=== PATIENT | female | born 1940 | race Caucasian/White ===

== ENCOUNTER → 2018-05-01 12:11 | Outpatient (CLI) | payer MEDICARE, SELFPAY ==
[2017-07-23 10:33] VITALS: BMI 34.8
[2018-05-01 12:16] LABS: Bacteria 0 SEEN /hpf (None Seen); Mucous, Urine 0 SEEN /hpf (<or=2+); Red Blood Cells-Urine 0 SEEN /hpf (0-5); Squamous Epithelial Cells - UA 0 SEEN /hpf (5-10)
[2018-05-01 14:20] LABS: Absolute Lymphocyte Count 1.64 X10^3/ul (0.83-4.51); Absolute Neutrophil Count 4.3 X10^3/uL (2.0-7.7); Eosinophil# 0.01 X10^3/uL; Eosinophils% 0.2 % (0-5); Hematocrit 39.7 % (37-47); Hemoglobin 12.6 g/dl (12.0-15.0); Lymphocyte # 1.64 X10^3/ul (4.0); Lymphocyte % 25.2 % (19-41); Mean Corp Hgb Conc 31.7 g/gl (32-36); Mean Corpuscular Hgb 28.4 pg (27.0-32.0); Mean Corpuscular Volume 89.4 fL (81-99); Mean Platelet Vol. 9.5 fl (6.2-12.0); Monocyte% 9.2 % (0-10); Neutrophil # 4.25 X10^3/uL (2.7-7.7); Neutrophil % 65.2 % (47-70); Platelet Count 322 K/mm3 (150-450); RBC Distribution Width CV 13.6 % (11.6-14.6); RBC Distribution Width SD 44.6 fl (35.1-43.9); Red Blood Count 4.44 M/mm3 (4.2-5.4); White Blood Count 6.5 K/mm3 (4.4-11.0)
[2018-05-01 14:26] LABS: POSITIVE COUNT NO; POSITIVE DIFFERENTIAL NO; POSITIVE MORPHOLOGY NO
[2018-05-01 14:29] LABS: Color, Urine Yellow (Yellow); Glucose, Dipstick Normal (Normal); Ketone-Dipstick Negative (Negative); Leukocyte Esterase-Dipstick 25 /ul (Negative); Nitrite-Dipstick Negative (Negative); Occult Blood-Urine Negative /ul (Negative); Protein-Dipstick Negative (Negative); Urine Bilirubin Dipstick Negative (Negative); Urine Clarity Clear (Clear); Urine Urobilinogen Normal (Normal); Urine pH 6.5 (5.0 - 8.0)
[2018-05-01 14:33] LABS: White Blood Cells 0-5 SEEN /hpf (0-5)
[2018-05-01 14:41] LABS: Vitamin D,25 Hydroxy 25.8 ng/mL (29.95-100.01)
[2018-05-01 14:42] LABS: Amphetamine Urine VISTA NEGATIVE (<1000 ng/mL); Barbiturate Urine VISTA NEGATIVE (< 200 ng/mL); Benzodiazepine Urine VISTA NEGATIVE (< 200 ng/mL); Cocaine Urine VISTA NEGATIVE (< 300 ng/mL); Ecstacy Urine VISTA NEGATIVE (< 500 ng/mL); Methadone Urine VISTA NEGATIVE (< 300 ng/mL); PCP Urine VISTA NEGATIVE (< 25 ng/mL); THC Urine VISTA NEGATIVE (< 50 ng/mL); Vista UDS pH Range 6
[2018-05-01 14:48] LABS: Hemoglobin A1c 7.6 % (4.2-6.3)
[2018-05-01 14:50] LABS: Microalbumin,Random Urine 5.6 mg/L (NO RANGE EST.); Microalbumin:Creatinine Ratio 28.8 mg/g CRE (<30 mg/g CRE)
[2018-05-01 14:58] LABS: ALB/GLOB Ratio 1.1 RATIO (0.9-2.4); AST(SGOT) 82 U/L (15-37); Alanine Aminotransfer ALT/SGPT 37 U/L (13-56); Albumin, Serum 4.1 g/dL (3.2-5.0); Alkaline Phosphatase 77 U/L (45-117); Anion Gap 10 (5-15); BUN 19 mg/dL (7-18); BUN/Creat Ratio 18.3 RATIO (10-20); Calcium,Total 9.6 mg/dL (8.5-10.1); Chloride 99 mmol/L (98-107); Cholesterol 171 mg/dL (200); Creatinine, Serum 1.04 mg/dL (0.55-1.02); EST Glomerular Filtration Rate 55 mL/min (>60); Est Glom Filt Rate - Afr Amer 66 mL/min (>60); Globulin 3.8 g/dL (2.2-4.2); Glucose 61 mg/dL (74-106); High Density Lipoprotein 35 mg/dL; Protein, Total 7.9 g/dL (6.4-8.2); Sodium Level 139 mmol/L (136-145); Thyroid Stim Hormone (TSH) 2.26 uIU/mL (0.358-3.74); Triglycerides 308 mg/dL; Very Low Density Lipoprotein 62 mg/dL (5-40)
== END ==
PROVIDERS: Family Provider Family Medicine; PCP Family Medicine; Referring Provider Family Medicine; Visit Provider Family Medicine
DX: I10 Essential (primary) hypertension (principal); E11.9 Type 2 diabetes mellitus without complications; E78.5 Hyperlipidemia, unspecified; F41.9 Anxiety disorder, unspecified; E55.9 Vitamin D deficiency, unspecified
CPT/HCPCS: 36415; 80053; 80061; 80307; 81001; 82043; 82306; 82570; 83036; 84443; 85025

== ENCOUNTER → 2018-05-26 11:28 | Outpatient (CLI) | payer MEDICARE, SELFPAY ==
[2017-07-23 10:33] VITALS: BMI 34.8
[2018-05-26 14:14] LABS: ALB/GLOB Ratio 0.9 RATIO (0.9-2.4); AST(SGOT) 51 U/L (15-37); Alanine Aminotransfer ALT/SGPT 34 U/L (13-56); Albumin, Serum 3.6 g/dL (3.2-5.0); Alkaline Phosphatase 67 U/L (45-117); Anion Gap 9 (5-15); BUN 19 mg/dL (7-18); BUN/Creat Ratio 18.3 RATIO (10-20); Calcium,Total 9.2 mg/dL (8.5-10.1); Chloride 99 mmol/L (98-107); Creatinine, Serum 1.04 mg/dL (0.55-1.02); EST Glomerular Filtration Rate 55 mL/min (>60); Est Glom Filt Rate - Afr Amer 66 mL/min (>60); Globulin 3.9 g/dL (2.2-4.2); Glucose 151 mg/dL (74-106); Protein, Total 7.5 g/dL (6.4-8.2); Sodium Level 137 mmol/L (136-145)
[2018-05-27 09:47] LABS: HEPATITIS B SURFACE AG Negative (Negative); Hep B Surface Antibodies Non Reactive (.); Hep C Antibodies <0.1 s/co ratio (0.0-0.9)
== END ==
PROVIDERS: Family Provider Family Medicine; PCP Family Medicine; Visit Provider Family Medicine
DX: R94.5 Abnormal results of liver function studies (principal)
CPT/HCPCS: 36415; 80053; 86706; 86803; 87340

== ENCOUNTER → 2018-07-18 21:23 | Outpatient (CLI) | payer MEDICARE, SELFPAY | PROVIDERS: Family Provider Family Medicine; PCP Family Medicine; Referring Provider Internal Medicine Critical Care Medicine; Visit Provider Internal Medicine Critical Care Medicine | DX: G47.33 Obstructive sleep apnea (adult) (pediatric) (principal) | CPT/HCPCS: 95811 ==

== ENCOUNTER → 2018-08-19 10:00 | Outpatient (CLI) | payer MEDICARE, SELFPAY ==
[2018-07-24 09:04] VITALS: BMI 34.0
== END ==
PROVIDERS: Family Provider Family Medicine; PCP Family Medicine; Referring Provider Nurse Practitioner Acute Care; Visit Provider Nurse Practitioner Acute Care
DX: G47.33 Obstructive sleep apnea (adult) (pediatric) (principal)

== ENCOUNTER → 2018-09-01 11:23 | Outpatient (CLI) | payer MEDICARE, SELFPAY ==
[2018-09-01 10:14] VITALS: BMI 32.4
[2018-09-01 15:33] LABS: Absolute Lymphocyte Count 1.55 X10^3/ul (0.83-4.51); Absolute Neutrophil Count 3.7 X10^3/uL (2.0-7.7); Basophil# 0.01 X10^3/uL; Basophil% 0.2 % (0-1); Hemoglobin 11.3 g/dl (12.0-15.0); Lymphocyte # 1.55 X10^3/ul (4.0); Lymphocyte % 27.2 % (19-41); Mean Corp Hgb Conc 31.4 g/gl (32-36); Mean Corpuscular Volume 86.1 fL (81-99); Mean Platelet Vol. 9.2 fl (6.2-12.0); Monocyte# 0.41 X10^3/uL; Monocyte% 7.2 % (0-10); Neutrophil # 3.71 X10^3/uL (2.7-7.7); Neutrophil % 65.2 % (47-70); Platelet Count 252 K/mm3 (150-450); RBC Distribution Width CV 13.7 % (11.6-14.6); RBC Distribution Width SD 42.9 fl (35.1-43.9); Red Blood Count 4.18 M/mm3 (4.2-5.4); White Blood Count 5.7 K/mm3 (4.4-11.0)
[2018-09-01 15:43] LABS: ALB/GLOB Ratio 1.2 RATIO (0.9-2.4); AST(SGOT) 57 U/L (15-37); Alanine Aminotransfer ALT/SGPT 26 U/L (13-56); Albumin, Serum 3.9 g/dL (3.2-5.0); Alkaline Phosphatase 49 U/L (45-117); Anion Gap 10 (5-15); BUN 17 mg/dL (7-18); Calcium,Total 9.1 mg/dL (8.5-10.1); Chloride 101 mmol/L (98-107); Cholesterol 150 mg/dL (200); Creatinine, Serum 1.06 mg/dL (0.55-1.02); EST Glomerular Filtration Rate 53 mL/min (>60); Est Glom Filt Rate - Afr Amer 65 mL/min (>60); Globulin 3.3 g/dL (2.2-4.2); Glucose 97 mg/dL (74-106); High Density Lipoprotein 36 mg/dL; Potassium 4.1 mmol/L (3.5-5.1); Protein, Total 7.2 g/dL (6.4-8.2); Sodium Level 139 mmol/L (136-145); Triglycerides 280 mg/dL; Very Low Density Lipoprotein 56 mg/dL (5-40)
[2018-09-01 15:49] LABS: POSITIVE COUNT NO; POSITIVE DIFFERENTIAL NO; POSITIVE MORPHOLOGY NO
[2018-09-01 15:50] LABS: Hemoglobin A1c 7.5 % (4.2-6.3)
[2018-09-01 17:05] LABS: Vitamin D,25 Hydroxy 35.6 ng/mL (29.95-100.01)
== END ==
PROVIDERS: Family Provider Family Medicine; PCP Family Medicine; Referring Provider Family Medicine; Visit Provider Family Medicine
DX: D64.9 Anemia, unspecified (principal); I10 Essential (primary) hypertension; E11.9 Type 2 diabetes mellitus without complications; E78.5 Hyperlipidemia, unspecified; E55.9 Vitamin D deficiency, unspecified
CPT/HCPCS: 36415; 80053; 80061; 82306; 83036; 85025

== ENCOUNTER → 2018-09-11 09:59 | Outpatient (CLI) | payer MEDICARE, SELFPAY ==
[2018-09-01 10:14] VITALS: BMI 32.4
[2018-09-11 12:40] LABS: Vitamin B12 201 pg/mL (211-911)
[2018-09-11 13:09] LABS: Ferritin 18 ng/mL (8-252); Iron 71 ug/dL (50-170); Iron Binding Capacity,Total 521 ug/dL (250-450)
== END ==
PROVIDERS: Family Provider Family Medicine; PCP Family Medicine; Referring Provider Family Medicine; Visit Provider Family Medicine
DX: D64.9 Anemia, unspecified (principal)
CPT/HCPCS: 36415; 82607; 82728; 82746; 83540; 83550

== ENCOUNTER → 2018-10-08 09:39 | Outpatient (CLI) | payer MEDICARE, SELFPAY ==
[2018-09-01 10:14] VITALS: BMI 32.4
[2018-10-08 12:23] LABS: Absolute Lymphocyte Count 1.01 X10^3/uL (0.83-4.51); Absolute Neutrophil Count 2.9 X10^3/uL (2.0-7.7); Basophil# 0.01 X10^3/uL; Basophil% 0.2 % (0-1); Eosinophil# 0.01 X10^3/uL; Eosinophils% 0.2 % (0-5); Hemoglobin 10.4 g/dL (12.0-15.0); Lymphocyte # 1.01 X10^3/ul (4.0); Lymphocyte % 23.4 % (19-41); Mean Corp Hgb Conc 30.6 g/dL (32-36); Mean Corpuscular Hgb 26.8 pg (27.0-32.0); Mean Corpuscular Volume 87.6 fL (81-99); Mean Platelet Vol. 9.7 fl (6.2-12.0); Monocyte# 0.39 X10^3/uL; NRBC Flagged by Analyzer 0 % (0-5); Neutrophil # 2.87 X10^3/uL (2.7-7.7); Neutrophil % 66.7 % (47-70); Platelet Count 239 K/mm3 (150-450); RBC Distribution Width SD 44.9 fl (35.1-43.9); Red Blood Count 3.88 M/mm3 (4.2-5.4); White Blood Count 4.3 K/mm3 (4.4-11.0)
[2018-10-08 12:58] LABS: Vitamin B12 220 pg/mL (211-911)
== END ==
PROVIDERS: Family Provider Family Medicine; PCP Family Medicine; Referring Provider Family Medicine; Visit Provider Family Medicine
DX: D64.9 Anemia, unspecified (principal); E53.8 Deficiency of other specified B group vitamins
CPT/HCPCS: 36415; 82607; 85025

== ENCOUNTER → 2018-11-27 08:17 | Outpatient (CLI) | payer MEDICARE, SELFPAY ==
[2018-11-27 07:44] VITALS: BMI 32.4
[2018-11-27 10:25] LABS: Absolute Lymphocyte Count 0.94 X10^3/uL (0.83-4.51); Hematocrit 32.5 % (37-47); Hemoglobin 9.9 g/dL (12.0-15.0); Lymphocyte # 0.94 X10^3/ul (4.0); Mean Corp Hgb Conc 30.5 g/dL (32-36); Mean Corpuscular Hgb 26.8 pg (27.0-32.0); Mean Corpuscular Volume 87.8 fL (81-99); Mean Platelet Vol. 9.7 fl (6.2-12.0); Monocyte# 0.53 X10^3/uL; Monocyte% 11.8 % (0-10); NRBC Flagged by Analyzer 0 % (0-5); POSITIVE MORPHOLOGY YES; Platelet Count 177 K/mm3 (150-450); RBC Distribution Width CV 13.6 % (11.6-14.6); RBC Distribution Width SD 43.6 fl (35.1-43.9); White Blood Count 4.5 K/mm3 (4.4-11.0)
[2018-11-27 10:47] LABS: ALB/GLOB Ratio 0.9 RATIO (0.9-2.4); AST(SGOT) 38 U/L (15-37); Alanine Aminotransfer ALT/SGPT 20 U/L (13-56); Albumin, Serum 3.3 g/dL (3.2-5.0); Alkaline Phosphatase 59 U/L (45-117); Anion Gap 8 (5-15); BUN 19 mg/dL (7-18); BUN/Creat Ratio 18.1 RATIO (10-20); Calcium,Total 8.9 mg/dL (8.5-10.1); Chloride 102 mmol/L (98-107); Cholesterol 122 mg/dL (200); Creatinine, Serum 1.05 mg/dL (0.55-1.02); EST Glomerular Filtration Rate 54 mL/min (>60); Est Glom Filt Rate - Afr Amer 65 mL/min (>60); Globulin 3.8 g/dL (2.2-4.2); Glucose 226 mg/dL (74-106); High Density Lipoprotein 28 mg/dL; Potassium 3.8 mmol/L (3.5-5.1); Protein, Total 7.1 g/dL (6.4-8.2); Sodium Level 140 mmol/L (136-145); Triglycerides 195 mg/dL; Very Low Density Lipoprotein 39 mg/dL (5-40)
[2018-11-27 10:50] LABS: Hemoglobin A1c 6.8 % (4.2-6.3)
[2018-11-27 11:01] LABS: Differential Indicated SCAN CRITERIA MET
[2018-11-27 11:02] LABS: PTHIN 15.6 pg/mL (18.4-80.1)
[2018-11-27 11:04] LABS: Vitamin B12 381 pg/mL (211-911); Vitamin D,25 Hydroxy 34.6 ng/mL (29.95-100.01)
== END ==
PROVIDERS: Family Provider Family Medicine; PCP Family Medicine; Referring Provider Family Medicine; Visit Provider Family Medicine
DX: I12.9 Hypertensive chronic kidney disease with stage 1 through stage 4 chronic kidney disease, or unspecified chronic kidney disease (principal); N18.3 Chronic kidney disease, stage 3 (moderate); E11.22 Type 2 diabetes mellitus with diabetic chronic kidney disease; D63.1 Anemia in chronic kidney disease; E78.5 Hyperlipidemia, unspecified; E53.8 Deficiency of other specified B group vitamins; E55.9 Vitamin D deficiency, unspecified
CPT/HCPCS: 36415; 80053; 80061; 82306; 82607; 83036; 83970; 85025

== ENCOUNTER 2019-01-05 08:00 | Outpatient (RCR) | payer MEDICARE, SELFPAY ==
[2018-11-27 07:44] VITALS: BMI 32.4
--- NOTE | 2018-12-22 10:51 | HP.PTEVAL_ITS ---
Patient's Visit Information TAMICA REBOLLEDO is a 78 year old F referred to Physical Therapy by Michele Lang MD with a diagnosis of BPPV. Date of Evaluation: 12/22/18 Physical Therapist: Vivek Mariscal, DPT, OCS, CSCS - Visit Plan Frequency: 1-2x /Week Duration: 2-4 Weeks Plan: weekly x 2-4 for positional treatments and balance progression as needed. - Subjective Findings: End of October she got a cold and coughed real hard. Her back hurt from that. Shoulders tightened up. Also when she sits up in bed she would start spinning and stagger. Needs to take cane now some days and she did not need that prior to this. Had previous falls from bending forward that the neighbor would help him up but not lately. Looking up in the grocery store can make her dizzy and thsi is for seconds. Got 6 stitches from a fall in the spring pulling weeds. Sleeping Ok. Not employed. Spends day often with grandchildren at sports and band. Can still do these. Just has to be careful when stadning or changing positions. Was dizzy this morning upon arising. Basic aDLs are OK, and son live with her. No regular exercises. Gets tired easily. - Objective Walks slow but I without AD, hesitant to move head. trasnfers I with UE. Steps are reciprocal with one rail. c/s AROM WFL adn without pain today. UE aROM WFL. Tender in R UT to mild touch. + R hallpike magdalene and up torsional nystagmus x 8 seconds. Treated with Joshua then - Hallpike test R. - Balance Scores Functional Gait Assessment Score: 23 % Disability: 23.3400 CATSIB Score (Max score 120 seconds): 100 - Goals Goal 1:: abolish dizzyness at grocery store adn exiting chair Goal Time Frame: 2-4 Weeks Goal 2:: Pt feel 100% back to normal and wanting to go to [facility]. Goal Time Frame: 2-4 Weeks Goal 3:: abolish dizzyness Goal Time Frame: 2-4 Weeks Goal 4:: DHI <25% disability Goal Time Frame: 2-4 Weeks - Rehabilitation Potential Physical Therapy Diagnosis: BPPV R post canal Rehabilitation Potential: Fair - Anticipated Interventions Patient/Client Instruction: Educate patient on: Condition, Plan of Care For the Purpose of:: To increase tolerance to activity/condition/position Therapeutic Exercise to Include: Balance training Comment: positional ex/treat For the Purpose of:: To increase tolerance to activity/condition/position, To improve balance Thank you for the opportunity to evaluate your patient. For Medicare and Medicare HMO plans, please review the plan of care and approve it. It will need to be FAXED BACK to us at [phone] for Medicare purposes. For Medicare only, by signing this I certify the plan of care. Please let me know if there are questions or concerns regarding this plan of care. Physician Signature: Date:
--- NOTE | 2019-01-08 11:46 | HP.PT.NRP ---
HP - Discharge Summary (1) - Patient Information TAMICA REBOLLEDO was seen in my office for initial evaluation on 12/22/18. The following Plan of Care was established for this patient: Initial Frequency: 1-2x /Week Initial Duration: 2-4 Weeks - Anticipated Interventions Patient/Client Instruction: Educate patient on: Condition, Plan of Care For the Purpose of:: To increase tolerance to activity/condition/position Therapeutic Exercise to Include: Balance training For the Purpose of:: To increase tolerance to activity/condition/position, To improve balance This patient was last seen in our office 01/05/19. Pertinent comments regarding their Physical therapy will appear below: Pt seen 3 visits for vertigo adn was to f/u again. She was 90% better at last session. She has called to cancel any further visits stating she is feeling good. i will discontinue at her request. At this point I will be discontinuing this patient from physical therapy. I would be happy to see this patient again in the future if found appropriate by the physician. Thank you! Vivek Mariscal, DPT, OCS, CSCS
== END 2019-01-05 19:00 | disposition home or self-care (01) ==
LOC: PT 08:00
PROVIDERS: Family Provider Family Medicine; PCP Family Medicine; Visit Provider Family Medicine
DX: H81.10 Benign paroxysmal vertigo, unspecified ear (principal)
CPT/HCPCS: 97161; 97530

== ENCOUNTER → 2019-01-29 10:12 | Outpatient (CLI) | payer MEDICARE, SELFPAY ==
[2018-11-27 07:44] VITALS: BMI 32.4
[2019-01-29 10:15] LABS: Mucous, Urine 0 SEEN /hpf (<or=2+); Red Blood Cells-Urine 0 SEEN /hpf (0-5)
[2019-01-29 12:32] LABS: Absolute Lymphocyte Count 1.24 X10^3/uL (0.83-4.51); Absolute Neutrophil Count 3.3 X10^3/uL (2.0-7.7); Basophil# 0.01 X10^3/uL; Basophil% 0.2 % (0-1); Eosinophil# 0.01 X10^3/uL; Eosinophils% 0.2 % (0-5); Hemoglobin 10.2 g/dL (12.0-15.0); Lymphocyte # 1.24 X10^3/ul (4.0); Lymphocyte % 24.6 % (19-41); Mean Corpuscular Hgb 26.5 pg (27.0-32.0); Mean Corpuscular Volume 88.3 fL (81-99); Mean Platelet Vol. 9.5 fl (6.2-12.0); Monocyte% 9.9 % (0-10); NRBC Flagged by Analyzer 0 % (0-5); Neutrophil # 3.27 X10^3/uL (2.7-7.7); Neutrophil % 64.7 % (47-70); Platelet Count 220 K/mm3 (150-450); RBC Distribution Width CV 14.3 % (11.6-14.6); RBC Distribution Width SD 45.5 fl (35.1-43.9); Red Blood Count 3.85 M/mm3 (4.2-5.4); White Blood Count 5.1 K/mm3 (4.4-11.0)
[2019-01-29 12:33] LABS: Vitamin D,25 Hydroxy 30.2 ng/mL (29.95-100.01)
[2019-01-29 12:37] LABS: ALB/GLOB Ratio 1.1 RATIO (0.9-2.4); AST(SGOT) 33 U/L (15-37); Alanine Aminotransfer ALT/SGPT 15 U/L (13-56); Albumin, Serum 3.7 g/dL (3.2-5.0); Alkaline Phosphatase 50 U/L (45-117); Anion Gap 6 (5-15); BUN 25 mg/dL (7-18); Calcium,Total 9.2 mg/dL (8.5-10.1); Chloride 103 mmol/L (98-107); Cholesterol 144 mg/dL (200); Creatinine, Serum 1.04 mg/dL (0.55-1.02); EST Glomerular Filtration Rate 55 mL/min (>60); Est Glom Filt Rate - Afr Amer 66 mL/min (>60); Globulin 3.5 g/dL (2.2-4.2); Glucose 88 mg/dL (74-106); High Density Lipoprotein 36 mg/dL; Potassium 4.2 mmol/L (3.5-5.1); Protein, Total 7.2 g/dL (6.4-8.2); Sodium Level 139 mmol/L (136-145); Triglycerides 252 mg/dL; Very Low Density Lipoprotein 50 mg/dL (5-40)
[2019-01-29 12:38] LABS: PTHIN 23.4 pg/mL (18.4-80.1)
[2019-01-29 12:44] LABS: Color, Urine Yellow (Yellow); Glucose, Dipstick Normal (Normal); Ketone-Dipstick Negative (Negative); Leukocyte Esterase-Dipstick 100 /ul (Negative); Nitrite-Dipstick Negative (Negative); Occult Blood-Urine Negative /ul (Negative); Protein-Dipstick Negative (Negative); Specific Gravity, Urine 1.015 (1.002-1.030); Urine Bilirubin Dipstick Negative (Negative); Urine Clarity Clear (Clear); Urine Urobilinogen Normal (Normal)
[2019-01-29 12:46] LABS: Protein, Urine (Random) 19.5 mg/dL (<11.9); Protein:Creat Ratio 214 mg/g CRE (0-200)
[2019-01-29 13:12] LABS: Bacteria RARE /hpf (None Seen); Squamous Epithelial Cells - UA 0-5 SEEN /hpf (5-10); White Blood Cells 0-5 SEEN /hpf (0-5)
== END ==
PROVIDERS: Family Provider Family Medicine; PCP Family Medicine; Referring Provider Family Medicine; Visit Provider Family Medicine
DX: E55.9 Vitamin D deficiency, unspecified (principal); E78.5 Hyperlipidemia, unspecified; I12.9 Hypertensive chronic kidney disease with stage 1 through stage 4 chronic kidney disease, or unspecified chronic kidney disease; N18.3 Chronic kidney disease, stage 3 (moderate); D63.1 Anemia in chronic kidney disease
CPT/HCPCS: 36415; 80053; 80061; 81001; 82306; 82570; 83970; 84156; 85025

== ENCOUNTER → 2019-04-16 15:11 | Outpatient (CLI) | payer MEDICARE, SELFPAY ==
[2019-02-25 08:57] VITALS: BMI 36.3
[2019-04-16 15:21] LABS: Mucous, Urine 0 SEEN /hpf (<or=2+); Red Blood Cells-Urine 0 SEEN /hpf (0-5); Squamous Epithelial Cells - UA 0 SEEN /hpf (5-10)
[2019-04-16 17:44] LABS: Absolute Lymphocyte Count 2.02 X10^3/uL (0.83-4.51); Absolute Neutrophil Count 3.1 X10^3/uL (2.0-7.7); Basophil# 0.01 X10^3/uL; Basophil% 0.2 % (0-1); Hematocrit 33.7 % (37-47); Hemoglobin 9.9 g/dL (12.0-15.0); Lymphocyte # 2.02 X10^3/ul (4.0); Lymphocyte % 35.3 % (19-41); Mean Corp Hgb Conc 29.4 g/dL (32-36); Mean Corpuscular Hgb 25.1 pg (27.0-32.0); Mean Corpuscular Volume 85.3 fL (81-99); Mean Platelet Vol. 10.1 fl (6.2-12.0); Monocyte# 0.56 X10^3/uL; Monocyte% 9.8 % (0-10); NRBC Flagged by Analyzer 0 % (0-5); Neutrophil # 3.12 X10^3/uL (2.7-7.7); Neutrophil % 54.5 % (47-70); Platelet Count 228 K/mm3 (150-450); RBC Distribution Width CV 14.4 % (11.6-14.6); RBC Distribution Width SD 43.9 fl (35.1-43.9); Red Blood Count 3.95 M/mm3 (4.2-5.4); White Blood Count 5.7 K/mm3 (4.4-11.0)
[2019-04-16 18:03] LABS: Protein, Urine (Random) < 6.0 mg/dL (<11.9)
[2019-04-16 18:13] LABS: Color, Urine Yellow (Yellow); Glucose, Dipstick Normal (Normal); Ketone-Dipstick Negative (Negative); Leukocyte Esterase-Dipstick 25 /ul (Negative); Nitrite-Dipstick Negative (Negative); Occult Blood-Urine Negative /ul (Negative); Protein-Dipstick Negative (Negative); Urine Bilirubin Dipstick Negative (Negative); Urine Clarity Sl. Cloudy (Clear); Urine Urobilinogen Normal (Normal)
[2019-04-16 18:17] LABS: Vitamin B12 1285 pg/mL (211-911); Vitamin D,25 Hydroxy 30.7 ng/mL (29.95-100.01)
[2019-04-16 18:21] LABS: Hemoglobin A1c 6.2 % (4.2-6.3)
[2019-04-16 18:28] LABS: AST(SGOT) 31 U/L (15-37); Alanine Aminotransfer ALT/SGPT 22 U/L (13-56); Albumin, Serum 3.9 g/dL (3.2-5.0); Alkaline Phosphatase 51 U/L (45-117); Anion Gap 6 (5-15); BUN 21 mg/dL (7-18); BUN/Creat Ratio 16.5 RATIO (10-20); Calcium,Total 9.5 mg/dL (8.5-10.1); Chloride 102 mmol/L (98-107); Cholesterol 142 mg/dL (200); Creatinine, Serum 1.27 mg/dL (0.55-1.02); EST Glomerular Filtration Rate 43 mL/min (>60); Est Glom Filt Rate - Afr Amer 52 mL/min (>60); Ferritin 8 ng/mL (8-252); Globulin 3.9 g/dL (2.2-4.2); Glucose 92 mg/dL (74-106); High Density Lipoprotein 33 mg/dL; Iron 31 ug/dL (50-170); Iron Binding Capacity,Total 623 ug/dL (250-450); Potassium 3.7 mmol/L (3.5-5.1); Protein, Total 7.8 g/dL (6.4-8.2); Sodium Level 139 mmol/L (136-145); Triglycerides 341 mg/dL; Very Low Density Lipoprotein 68 mg/dL (5-40)
[2019-04-16 18:29] LABS: Bacteria RARE /hpf (None Seen); White Blood Cells 0-5 SEEN /hpf (0-5)
== END ==
PROVIDERS: PCP Family Medicine; Referring Provider Family Medicine; Visit Provider Family Medicine
DX: E11.22 Type 2 diabetes mellitus with diabetic chronic kidney disease (principal); N18.3 Chronic kidney disease, stage 3 (moderate); E78.5 Hyperlipidemia, unspecified; E53.8 Deficiency of other specified B group vitamins; D64.9 Anemia, unspecified; E55.9 Vitamin D deficiency, unspecified
CPT/HCPCS: 36415; 80053; 80061; 81001; 82306; 82570; 82607; 82728; 82746; 83036; 83540; 83550; 84156; 85025

== ENCOUNTER → 2019-05-06 09:37 | Outpatient (CLI) | payer MEDICARE, SELFPAY ==
[2019-02-25 08:57] VITALS: BMI 36.3
[2019-05-06 10:29] LABS: Absolute Lymphocyte Count 1.07 X10^3/uL (0.83-4.51); Absolute Neutrophil Count 2.4 X10^3/uL (2.0-7.7); Basophil# 0.01 X10^3/uL; Basophil% 0.3 % (0-1); Hematocrit 33.2 % (37-47); Hemoglobin 9.7 g/dL (12.0-15.0); Lymphocyte # 1.07 X10^3/ul (4.0); Mean Corp Hgb Conc 29.2 g/dL (32-36); Mean Corpuscular Hgb 25.1 pg (27.0-32.0); Mean Platelet Vol. 9.7 fl (6.2-12.0); Monocyte# 0.38 X10^3/uL; Monocyte% 9.9 % (0-10); NRBC Flagged by Analyzer 0 % (0-5); Neutrophil # 2.35 X10^3/uL (2.7-7.7); Neutrophil % 61.5 % (47-70); Platelet Count 199 K/mm3 (150-450); RBC Distribution Width CV 16.4 % (11.6-14.6); RBC Distribution Width SD 50.4 fl (35.1-43.9); Red Blood Count 3.86 M/mm3 (4.2-5.4); White Blood Count 3.8 K/mm3 (4.4-11.0)
[2019-05-06 11:16] LABS: Ferritin 13 ng/mL (8-252); Iron 75 ug/dL (50-170); Iron Binding Capacity,Total 548 ug/dL (250-450)
== END ==
PROVIDERS: PCP Family Medicine; Referring Provider Family Medicine; Visit Provider Family Medicine
DX: E61.1 Iron deficiency (principal)
CPT/HCPCS: 36415; 82728; 83540; 83550; 85025

== ENCOUNTER → 2019-05-15 09:36 | Outpatient (CLI) | payer MEDICARE, SELFPAY ==
[2019-02-25 08:57] VITALS: BMI 36.3
[2019-05-15 12:54] LABS: Anion Gap 5 (5-15); BUN 24 mg/dL (7-18); Calcium,Total 9.1 mg/dL (8.5-10.1); Chloride 104 mmol/L (98-107); EST Glomerular Filtration Rate 46 mL/min (>60); Est Glom Filt Rate - Afr Amer 56 mL/min (>60); Glucose 191 mg/dL (74-106); Potassium 4.1 mmol/L (3.5-5.1); Sodium Level 138 mmol/L (136-145)
== END ==
PROVIDERS: PCP Family Medicine; Visit Provider Family Medicine
DX: N18.3 Chronic kidney disease, stage 3 (moderate) (principal)
CPT/HCPCS: 36415; 80048

== ENCOUNTER 2019-08-05 14:49 | Emergency (ER) | payer MEDICARE, SELFPAY ==
[2019-02-25 08:57] VITALS: BMI 36.3
[2019-08-05] VITALS (9 sets, daily range): BP systolic 106–137; BP diastolic 52–94; PULSE 63–73; RESP 15–25; TEMP 36.3–36.7; O2SAT 96–100; BMI 35.8
--- NOTE | 2019-08-05 15:27 | RAD_ITS ---
STUDY: X-RAY - RIGHT WRIST REASON FOR EXAM: Female, 79 years old. right wrist pain after fall TECHNIQUE: 3 view(s) of the wrist were obtained. COMPARISON: None. FINDINGS: Acute impacted comminuted intra-articular fracture of the distal radius with overlapping but no appreciable angulation of fracture fragments.. There is also fracture of the ulnar styloid process with mild separation of fracture fragments. Normal distal radioulnar articulation. Normal carpal bones. Normal carpal articulations. Normal carpometacarpal articulation of the thumb. Normal second through fifth carpometacarpal articulations. Normal visualized metacarpal bones. Diffuse soft tissue swelling of the wrist. RAD/Wrist min 3 Views IMPRESSION: Acute fractures of the distal radius and ulna Electronically Signed: Willy Roche MD at 16:29 EDT , Service support ,
--- NOTE | 2019-08-05 15:27 | CT_ITS ---
STUDY: CT BRAIN WITHOUT CONTRAST REASON FOR EXAM: Female, 79 years old. S/P FALL-HEAD INJURY/ NO LOC RADIATION DOSAGE (If Supplied By Facility): CTDIvol = ( 44.99 ) mGy, DLP = ( 1490.98 ) mGycm TECHNIQUE: Transaxial CT imaging of the brain was performed without administration of intravenous contrast material. Individualized dose optimization techniques were used for this CT. COMPARISON: December 13, 2016 FINDINGS: Normal soft tissue structures. Normal calvarium. Calcification of cavernous carotids and vertebral arteries .. Mild atrophy and moderate periventricular white matter ischemic changes.. Normal basal ganglia and thalami. Normal brainstem. Normal cerebellum. There is no intracranial hemorrhage. There are no findings of an acute ischemic infarction. Postsurgical changes of the orbits. Normal visualized paranasal sinuses. No significant change since prior study CT/Brain/Head without Contrast IMPRESSION: Atrophy and periventricular white matter ischemic changes. No evidence for acute intracranial bleed Electronically Signed: Willy Roche MD at 16:55 EDT , Service support ,
--- NOTE | 2019-08-05 15:28 | ED.VISSUMM ---
- ER Visit Summary Date of Service: 08/05/19 Chief Complaint: Fall History of Present Illness: The patient is a 79 F presents after a fall that occurred today. Patient states she was doing some yard work and got up to walk. Patient states she was walking backwards when she tripped over a bag of dirt. Patient states she fell backwards onto her buttocks and her right wrist. Patient states she did hit her head. Patient is on Plavix. Patient states her worst pain is in her right wrist. Patient states she also has some pain in her low back and sacrum. Patient denies any loss of consciousness. Patient states her last tetanus was within 5 years. Patient states her wrist pain is worse with any movement. Patient denies any paresthesias or weakness. Physical Examination: Vital signs are stable. Patient is afebrile. Patient is in no acute distress. Oral mucosa is pink and moist. Neck is supple. Trachea is midline. There is no JVD. Heart was regular rate and rhythm. Lungs are clear and equal bilaterally. Abdomen is soft. Bowel sounds are normal. There is no tenderness. Cranial nerves II through XII are intact. There are no focal motor or sensory deficits noted. Musculoskeletal exam reveals edema, ecchymosis, and tenderness over the right wrist. Range of motion was limited in all motions of the right wrist secondary to pain. Sensation was intact to light touch in the radial, median, and ulnar areas. Strength is 5/5 in the radial, median, and ulnar areas. Radial pulses are equal bilaterally. There is no tenderness over the elbow or shoulder. Test Results: X-rays of the left wrist were obtained. There is a comminuted and impacted fracture of the left distal radius. X-rays of the lumbar spine were obtained. There are degenerative changes but no acute fracture. CT scan of the brain was obtained. There is no acute intracranial abnormality. These were interpreted by the radiologist and reviewed by myself. Emergency Department Course and Treatment: Patient was recommended to have conscious sedation with reduction of her fracture. Patient is agreeable with this. Procedure was reviewed with the patient. Patient was given the opportunity ask questions and had none. Patient was placed on oxygen and continuous cardiac care nurse. Patient was sedated with a total of 60 mg of propofol. Patient had no hypoxic episodes. Patient had no cardiac dysrhythmias. The fracture was reduced with traction. A well-padded long-arm sugar tong splint was applied. This was custom made by myself. This was made using 3 x 35 inch Ortho-Glass. Neurovascular exam was intact prior to and after placement of the splint. Patient tolerated the procedure well. Patient was awake and alert after the procedure. Repeat x-rays of the left wrist were obtained. There is improved alignment of the fracture fragments. Patient was instructed to ice and elevate the right wrist. Patient was given a dose of Brunswick here. Patient was given a prescription for Brunswick. She was given a referral to Dr. Richardson for orthopedic follow-up. Patient understood and was agreeable with the plan. All questions were answered. Disposition: Discharge home Impression: 1. Acute fracture right distal radius 2. Closed head injury 3. Lumbar contusion 4. Custom made long-arm sugar tong splint, made by emergency physician This note was generated with [employer] dictation software. It may contain incorrect words, spelling, and punctuation that were not noted in review of the chart prior to signing ED Disposition - Plan for ED Patient: Disposition: Home or Assisted Living Diagnosis: Fracture of right distal radius, Closed head injury, Lumbar contusion Instructions: ED Fracture Upper Extremity Prescriptions: Hydrocodone Bitart/Apap 5-325 [Brunswick 5MG-325MG] 1 tab PO Q6H PRN PRN 3 Days #10 tab PRN Reason: Pain Prescription Printed Referrals: Michele Lang MD [Primary Care Provider] - Magali Richardson DO [STAFF PHYSICIAN] - 3-5 Days
--- NOTE | 2019-08-05 15:46 | RAD_ITS ---
STUDY: X-RAY - LUMBAR SPINE REASON FOR EXAM: Female, 79 years old. lower back pain after fall TECHNIQUE: 3 view(s) of the lumbar spine were obtained. COMPARISON: None FINDINGS: Normal lumbar lordosis. There is moderate levo scoliosis. Grade 1 spondylolisthesis at L5-S1 and L4-5 No evidence for acute fracture or subluxation. Narrowed L4-5 disc space. Diffuse vascular calcification without evidence for aneurysm RAD/Lumbar Spine 2 or 3 Views IMPRESSION: Scoliosis and mild degenerative change. No acute fracture or subluxation Electronically Signed: Willy Roche MD at 16:26 EDT , Service support ,
[2019-08-05] MEDS: Propofol 200 MG/20 ML Vial IV BOLUS (20:00)
--- NOTE | 2019-08-05 20:22 | RAD_ITS ---
STUDY: X-RAY - RIGHT WRIST REASON FOR EXAM: Female, 79 years old. post reduction TECHNIQUE: 2 view(s) of the wrist were obtained. COMPARISON: August 05, 2019 FINDINGS: Status post reduction and casting of distal radial and ulnar fractures with fracture fragments in near anatomic alignment and position.. RAD/Wrist 2 Views IMPRESSION: Status post reduction and casting of distal radial and ulnar fractures Electronically Signed: Willy Roche MD at 20:43 EDT , Service support ,
[2019-08-05] MEDS: HYDROcodone Bitartrate/Apap 5/325 Tablet PO (21:19)
== END 2019-08-05 21:25 | disposition home or self-care (01) ==
PROVIDERS: Emergency Provider Emergency Medicine; PCP Family Medicine
DX: S52.591A Other fractures of lower end of right radius, initial encounter for closed fracture (principal); S09.90XA Unspecified injury of head, initial encounter; S30.0XXA Contusion of lower back and pelvis, initial encounter; W01.0XXA Fall on same level from slipping, tripping and stumbling without subsequent striking against object, initial encounter; Y93.01 Activity, walking, marching and hiking; M41.9 Scoliosis, unspecified; Z79.02 Long term (current) use of antithrombotics/antiplatelets; I25.10 Atherosclerotic heart disease of native coronary artery without angina pectoris
CPT/HCPCS: 25605; 29405; 70450; 72100; 73100; 73110; 99152; 99285; J7030; A4216

== ENCOUNTER → 2019-08-11 13:50 | Outpatient (CLI) | payer MEDICARE, SELFPAY ==
[2019-08-07 13:04] VITALS: BMI 35.8
--- NOTE | 2019-08-11 13:51 | CT_ITS ---
CT of the right wrist without contrast INDICATION: Fall, wrist pain. COMPARISON: X-ray 08/05/2019 TECHNIQUE: Multiple thin section axial CT images of the right wrist were obtained and filmed in soft tissue and bone windows. Furthermore, multiple sagittal and coronal reconstructions were performed. FINDINGS: No abnormal soft tissue mass, lymphadenopathy, fluid collection. Next Acute comminuted nondisplaced nonangulated impacted transverse fracture of the distal metaphysis radius with extension into the radiocarpal joint. Associated acute fracture through the ulnar styloid. IMPRESSION: Acute comminuted nondisplaced nonangulated impacted transverse fracture of the distal metaphysis of the radius with extension into the radiocarpal joint with ulnar styloid fracture. Electronically Signed: Jam Calhoun MD at 9:54 EDT Tel , Service support , CT/Extremity Upper without Contra
== END ==
PROVIDERS: PCP Family Medicine; Visit Provider Physician Assistant
DX: S52.501A Unspecified fracture of the lower end of right radius, initial encounter for closed fracture (principal)
CPT/HCPCS: 73200

== ENCOUNTER → 2019-08-13 15:48 | Outpatient (CLI) | payer MEDICARE, SELFPAY ==
[2019-08-12 13:50] VITALS: BMI 35.8
[2019-08-13 17:48] LABS: Absolute Lymphocyte Count 1.88 X10^3/uL (0.83-4.51); Absolute Neutrophil Count 3.4 X10^3/uL (2.0-7.7); Eosinophil# 0.02 X10^3/uL; Eosinophils% 0.3 % (0-5); Hematocrit 36.3 % (37-47); Hemoglobin 11.3 g/dL (12.0-15.0); Lymphocyte # 1.88 X10^3/ul (4.0); Lymphocyte % 31.7 % (19-41); Mean Corp Hgb Conc 31.1 g/dL (32-36); Mean Corpuscular Hgb 28.6 pg (27.0-32.0); Mean Corpuscular Volume 91.9 fL (81-99); Mean Platelet Vol. 9.8 fl (6.2-12.0); Monocyte# 0.58 X10^3/uL; Monocyte% 9.8 % (0-10); NRBC Flagged by Analyzer 0 % (0-5); Neutrophil # 3.44 X10^3/uL (2.7-7.7); Platelet Count 250 K/mm3 (150-450); RBC Distribution Width CV 13.4 % (11.6-14.6); RBC Distribution Width SD 45.6 fl (35.1-43.9); Red Blood Count 3.95 M/mm3 (4.2-5.4); White Blood Count 5.9 K/mm3 (4.4-11.0)
[2019-08-13 17:57] LABS: Vitamin B12 1792 pg/mL (211-911); Vitamin D,25 Hydroxy 42.8 ng/mL
[2019-08-13 17:59] LABS: Hemoglobin A1c 5.9 % (3.8-5.6)
[2019-08-13 19:08] LABS: ALB/GLOB Ratio 0.9 RATIO (0.9-2.4); AST(SGOT) 33 U/L (15-37); Alanine Aminotransfer ALT/SGPT 22 U/L (13-56); Albumin, Serum 3.7 g/dL (3.2-5.0); Alkaline Phosphatase 38 U/L (45-117); Anion Gap 8 (5-15); BUN 52 mg/dL (7-18); BUN/Creat Ratio 26.1 RATIO (10-20); Calcium,Total 9.5 mg/dL (8.5-10.1); Chloride 97 mmol/L (98-107); Cholesterol 127 mg/dL (200); Creatinine, Serum 1.99 mg/dL (0.55-1.02); EST Glomerular Filtration Rate 26 mL/min (>60); Est Glom Filt Rate - Afr Amer 31 mL/min (>60); Ferritin 32 ng/mL (8-252); Globulin 4.1 g/dL (2.2-4.2); Glucose 119 mg/dL (74-106); High Density Lipoprotein 16 mg/dL; Iron 82 ug/dL (50-170); Iron Binding Capacity,Total 565 ug/dL (250-450); Potassium 3.7 mmol/L (3.5-5.1); Protein, Total 7.8 g/dL (6.4-8.2); Sodium Level 137 mmol/L (136-145); Triglycerides 335 mg/dL; Very Low Density Lipoprotein 67 mg/dL (5-40)
== END ==
PROVIDERS: PCP Family Medicine; Referring Provider Family Medicine; Visit Provider Family Medicine
DX: D64.9 Anemia, unspecified (principal); E78.5 Hyperlipidemia, unspecified; E53.8 Deficiency of other specified B group vitamins; E11.9 Type 2 diabetes mellitus without complications; E55.9 Vitamin D deficiency, unspecified
CPT/HCPCS: 36415; 80053; 80061; 82306; 82607; 82728; 82746; 83036; 83540; 83550; 85025

== ENCOUNTER → 2019-08-21 13:35 | Outpatient (CLI) | payer MEDICARE, SELFPAY ==
[2019-08-12 13:50] VITALS: BMI 35.8
--- NOTE | 2019-08-21 13:36 | RAD_ITS ---
STUDY: X-RAY - RIGHT WRIST REASON FOR EXAM: Female, 79 years old. FRACTURE TECHNIQUE: 3 view(s) of the wrist were obtained in a cast. COMPARISON: Comparison is made with prior examination dated August 05, 2019. FINDINGS: Satisfactory reduction of the comminuted nondisplaced fracture of the distal radius as well as of the ulnar styloid. Detail is obscured due to overlying cast material. Normal radiocarpal articulation. Normal distal radioulnar articulation. Normal carpal bones. Normal carpal articulations. Normal carpometacarpal articulation of the thumb. Normal second through fifth carpometacarpal articulations. Normal visualized metacarpal bones. Soft tissue swelling. RAD/Wrist min 3 Views IMPRESSION: Satisfactory reduction of the distal radial and ulnar fractures. Electronically Signed: Matt Erazo, at 15:07 EDT , Service support ,
== END ==
PROVIDERS: PCP Family Medicine; Referring Provider Physician Assistant; Visit Provider Physician Assistant
DX: S52.501A Unspecified fracture of the lower end of right radius, initial encounter for closed fracture (principal)
CPT/HCPCS: 73110

== ENCOUNTER → 2019-09-11 09:14 | Outpatient (CLI) | payer MEDICARE, SELFPAY ==
[2019-08-21 13:48] VITALS: BMI 35.8
--- NOTE | 2019-09-11 09:14 | RAD_ITS ---
STUDY: X-RAY - RIGHT WRIST REASON FOR EXAM: Female, 79 years old. RECHECK RIGHT WRIST FX. FELL 6 WEEKS AGO PER PATIENT. TECHNIQUE: 3 view(s) of the wrist were obtained. COMPARISON: 08/21/2019 FINDINGS: There has been apparent refracture of the distal radius since the previous study. The distal radius shows evidence of a subacute healing impacted fracture of the distal radius not present on the previous study resulting in a slightly more positive ulnar variance. Stable diffuse osteopenia and degenerative arthrosis. No other demonstrated fracture. RAD/Wrist min 3 Views IMPRESSION: Since the previous study of 08/21/2019 there has been a refracture of the distal radius. There is a subacute healing impacted distal radial fracture that was not seen on the previous study. There is a slightly more positive ulnar variance and was seen on the previous study. Stable osteopenia and degenerative arthrosis Electronically Signed: Polo Berumen MD at 9:42 EDT , Service support ,
== END ==
PROVIDERS: PCP Family Medicine; Referring Provider Physician Assistant; Visit Provider Physician Assistant
DX: S52.501A Unspecified fracture of the lower end of right radius, initial encounter for closed fracture (principal)
CPT/HCPCS: 73110

== ENCOUNTER → 2019-09-25 10:11 | Outpatient (CLI) | payer MEDICARE, SELFPAY ==
[2019-09-11 12:28] VITALS: BMI 35.8
--- NOTE | 2019-09-25 10:12 | RAD_ITS ---
STUDY: X-RAY - RIGHT WRIST REASON FOR EXAM: Female, 79 years old. FRACTURE TECHNIQUE: 3 view(s) of the wrist were obtained. COMPARISON: 09/11/2019 FINDINGS: Healing comminuted impacted fracture of the distal metaphysis of the radius with callus formation. Normal radiocarpal articulation. Normal distal radioulnar articulation. Normal carpal bones. Normal carpal articulations. Normal carpometacarpal articulation of the thumb. Normal second through fifth carpometacarpal articulations. Normal visualized metacarpal bones. Fiberglas cast obscures soft tissue and bony detail. RAD/Wrist min 3 Views IMPRESSION: Healing comminuted impacted fracture of the distal radius. Electronically Signed: Jam Calhoun MD at 7:41 EDT Tel , Service support ,
== END ==
PROVIDERS: PCP Family Medicine; Referring Provider Physician Assistant; Visit Provider Physician Assistant
DX: M25.531 Pain in right wrist (principal)
CPT/HCPCS: 73110

== ENCOUNTER 2019-10-13 11:30 | Outpatient (RCR) | payer MEDICARE, SELFPAY ==
[2019-09-11 12:28] VITALS: BMI 35.8
--- NOTE | 2019-10-02 11:28 | HP.OTEVAL ---
Patient's Visit Information TAMICA REBOLLEDO is a 79 year old F, referred to Occupational Therapy by LUZ Taylor, with a diagnosis of Right intra-articular comminuted distal radius fracture. Date of Evaluation: 10/02/19 Occupational Therapist: Darwin Best - Subjective Pt reports she fell August 07 in flower bed as her heel got caught on brick and she fell backwards, resulting in R wrist fracture. Pt reports she has worn a hard cast on it for 7 weeks and just recently started wearing brace, and wearing all hours of the day except for when bathing. Pt wants to be able to return back to normal. Normally watches 2 grandsons every day during the week. 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 See details below. - ROM Wrist: L ext 60 degrees, L flex 60 degrees; R ext 20 degrees, R flex 45 degrees ROM Comments: LUE AROM WFL. R distal joints WFL. - Strength Fermenting Cellar Dropper: L 16#, R attempted but unable Lateral Pinch: L 11#, R 4# Tripod Pinch: L 8 #, R 3# Tip-to-Tip Pinch: L 8#, R 3# Strength Comments: L hand dominant. R prox MMT 4-/5. LUE MMT 4-/5. - Edema Other: 3+ edema on dorsal surface of R palm - Sensation Sensation Comments: No numbness/tingling reported. - Quick DASH-Disab of Arm,Shoulder& Hand Quick DASH Score: 61.3625 - Goals Goal:: Pt will be able to increase medical housekeeper/pinch strenth by 5-10# to increase IND with ADLs. Goal:: Pt will be able to increase AROM of wrist flex/ext by 10-15 degrees to increase IND with ADLs. Goal:: Pt will be able to pickup driver various manipulatives in R hand without dropping for increased IND with ADLs/IADLs. Goal:: Pt will demo an decrease in edema in R hand to 1+ or less by d/c. Goal:: Pt will be educated on joint protection techniques for increased safety with ADL/IADL tasks at home. - Rehabilitation Rehabilitation Potential: Good - Anticipated Interventions A/AAROM/PROM, Strengthening, Edema Control, Modalities, Joint Protection/Energy Conservation, Fine Motor Coord/Robin, Education re Diagnosis, Education re Self Massage Techniques, Education re Correct Donning Tech,Care&Wearing Sched Comp Garments, Home Program - Visit Plan Frequency: 1-2x /Week Duration: 4-6 Weeks General Plan: Decrease edema, increase ROM, strength, medical housekeeper and functional use of R hand. TEXT: Thank you for the opportunity to evaluate your patient. For Medicare and Medicare HMO plans, please review the plan of care and approve it. It will need to be FAXED BACK to us at [phone] for Medicare purposes. Please let me know if there are questions or concerns regarding this plan of care. Physician Signature: Date:
--- NOTE | 2019-12-03 09:19 | HP.OT.NRP ---
TAMICA REBOLLEDO was seen in my office for initial evaluation on 10/02/19. The following Plan of Care was established for this patient: Initial Frequency: 1-2x /Week Initial Duration: 4-6 Weeks Plan: Pt would like next sessions cancelled , cancelled remaining 4 appts., leave open until pt is 12 weeks to possibly come back for a strengthening program. She is 9 weeks and 4 days now Anticipated Interventions: A/AAROM/PROM, Strengthening, Edema Control, Modalities, Joint Protection/Energy Conservation, Fine Motor Coord/Robin, Education re Diagnosis, Education re Self Massage Techniques, Education re Correct Donning Tech,Care&Wearing Sched Comp Garments, Home Program This patient was last seen in our office 10/13/19. Pertinent comments regarding their Occupational therapy will appear below: pt was seen for 3 OT visits. pt cancelled her last 4 visit and has not reschedule apts. pt d/c at this time due to time lapse in services At this point I will be discontinuing this patient from occupational therapy. I would be happy to see this patient again in the future if found appropriate by the physician. Thank you! Cande Duncan, OTR/L, CHT
== END 2019-10-13 19:00 | disposition home or self-care (01) ==
LOC: OT 11:30
PROVIDERS: PCP Family Medicine; Visit Provider Physician Assistant
DX: S52.571D Other intraarticular fracture of lower end of right radius, subsequent encounter for closed fracture with routine healing (principal)
CPT/HCPCS: 97140; 97166; 97530

== ENCOUNTER → 2019-12-09 08:21 | Outpatient (CLI) | payer MEDICARE, SELFPAY ==
[2019-09-25 13:28] VITALS: BMI 35.8
[2019-12-09 10:04] LABS: Absolute Lymphocyte Count 1.21 X10^3/uL (0.83-4.51); Absolute Neutrophil Count 2.7 X10^3/uL (2.0-7.7); Basophil# 0.01 X10^3/uL; Basophil% 0.2 % (0-1); Hematocrit 36.2 % (37-47); Hemoglobin 11.5 g/dL (12.0-15.0); Lymphocyte # 1.21 X10^3/ul (4.0); Lymphocyte % 28.1 % (19-41); Mean Corp Hgb Conc 31.8 g/dL (32-36); Mean Corpuscular Hgb 29.3 pg (27.0-32.0); Mean Corpuscular Volume 92.1 fL (81-99); Mean Platelet Vol. 9.6 fl (6.2-12.0); Monocyte% 9.3 % (0-10); NRBC Flagged by Analyzer 0 % (0-5); Neutrophil # 2.67 X10^3/uL (2.7-7.7); Neutrophil % 62.2 % (47-70); Platelet Count 206 K/mm3 (150-450); RBC Distribution Width CV 12.3 % (11.6-14.6); RBC Distribution Width SD 41.2 fl (35.1-43.9); Red Blood Count 3.93 M/mm3 (4.2-5.4); White Blood Count 4.3 K/mm3 (4.4-11.0)
[2019-12-09 10:22] LABS: Hemoglobin A1c 7.5 % (3.8-5.6)
[2019-12-09 10:25] LABS: ALB/GLOB Ratio 1.2 RATIO (0.9-2.4); AST(SGOT) 30 U/L (15-37); Alanine Aminotransfer ALT/SGPT 21 U/L (13-56); Albumin, Serum 4.1 g/dL (3.2-5.0); Alkaline Phosphatase 43 U/L (45-117); Anion Gap 6 (5-15); BUN 27 mg/dL (7-18); BUN/Creat Ratio 19.9 RATIO (10-20); Calcium,Total 9.5 mg/dL (8.5-10.1); Chloride 98 mmol/L (98-107); Cholesterol 159 mg/dL (200); Creatinine, Serum 1.36 mg/dL (0.55-1.02); EST Glomerular Filtration Rate 40 mL/min (>60); Est Glom Filt Rate - Afr Amer 48 mL/min (>60); Globulin 3.5 g/dL (2.2-4.2); Glucose 152 mg/dL (74-106); High Density Lipoprotein 35 mg/dL; Protein, Total 7.6 g/dL (6.4-8.2); Sodium Level 135 mmol/L (136-145); Triglycerides 282 mg/dL; Very Low Density Lipoprotein 56 mg/dL (5-40)
[2019-12-09 10:42] LABS: Vitamin D,25 Hydroxy 35.6 ng/mL
== END ==
PROVIDERS: PCP Family Medicine; Referring Provider Family Medicine; Visit Provider Family Medicine
DX: N18.3 Chronic kidney disease, stage 3 (moderate) (principal); E11.9 Type 2 diabetes mellitus without complications; E55.9 Vitamin D deficiency, unspecified; E78.5 Hyperlipidemia, unspecified
CPT/HCPCS: 36415; 80053; 80061; 82306; 83036; 85025

== ENCOUNTER → 2020-03-23 15:17 | Outpatient (CLI) | payer MEDICARE, SELFPAY ==
[2019-09-25 13:28] VITALS: BMI 35.8
[2020-03-23 17:47] LABS: Absolute Neutrophil Count 2.9 X10^3/uL (2.0-7.7); Basophil# 0.01 X10^3/uL; Basophil% 0.2 % (0-1); Eosinophil# 0.01 X10^3/uL; Eosinophils% 0.2 % (0-5); Hematocrit 35.8 % (37-47); Hemoglobin 11.3 g/dL (12.0-15.0); Mean Corp Hgb Conc 31.6 g/dL (32-36); Mean Corpuscular Hgb 29.2 pg (27.0-32.0); Mean Corpuscular Volume 92.5 fL (81-99); Mean Platelet Vol. 9.6 fl (6.2-12.0); Monocyte# 0.46 X10^3/uL; Monocyte% 9.5 % (0-10); NRBC Flagged by Analyzer 0 % (0-5); Neutrophil # 2.94 X10^3/uL (2.7-7.7); Neutrophil % 61.1 % (47-70); Platelet Count 230 K/mm3 (150-450); RBC Distribution Width CV 12.8 % (11.6-14.6); RBC Distribution Width SD 43.6 fl (35.1-43.9); Red Blood Count 3.87 M/mm3 (4.2-5.4); White Blood Count 4.8 K/mm3 (4.4-11.0)
[2020-03-23 18:03] LABS: Vitamin D,25 Hydroxy 31.8 ng/mL
[2020-03-23 18:07] LABS: Hemoglobin A1c 6.8 % (3.8-5.6)
[2020-03-23 18:11] LABS: ALB/GLOB Ratio 1.2 RATIO (0.9-2.4); AST(SGOT) 30 U/L (15-37); Alanine Aminotransfer ALT/SGPT 19 U/L (13-56); Albumin, Serum 3.9 g/dL (3.2-5.0); Alkaline Phosphatase 50 U/L (45-117); Anion Gap 8 (5-15); BUN 24 mg/dL (7-18); BUN/Creat Ratio 19.5 RATIO (10-20); Calcium,Total 9.5 mg/dL (8.5-10.1); Chloride 99 mmol/L (98-107); Cholesterol 163 mg/dL (200); Creatinine, Serum 1.23 mg/dL (0.55-1.02); EST Glomerular Filtration Rate 45 mL/min (>60); Est Glom Filt Rate - Afr Amer 54 mL/min (>60); Globulin 3.3 g/dL (2.2-4.2); Glucose 145 mg/dL (74-106); High Density Lipoprotein 34 mg/dL; Potassium 3.8 mmol/L (3.5-5.1); Protein, Total 7.2 g/dL (6.4-8.2); Sodium Level 138 mmol/L (136-145); Triglycerides 362 mg/dL; Very Low Density Lipoprotein 72 mg/dL (5-40)
[2020-03-24 11:15] LABS: Ferritin 16 ng/mL (8-252); Iron 59 ug/dL (50-170); Iron Binding Capacity,Total 509 ug/dL (250-450); PERCENT IRON SATURATION 11.6 % (15.0-55.0)
[2020-03-24 11:19] LABS: Vitamin B12 327 pg/mL (211-911)
== END ==
PROVIDERS: PCP Family Medicine; Referring Provider Family Medicine; Visit Provider Family Medicine
DX: D64.9 Anemia, unspecified (principal); E55.9 Vitamin D deficiency, unspecified; E78.5 Hyperlipidemia, unspecified; E11.22 Type 2 diabetes mellitus with diabetic chronic kidney disease; N18.30 Chronic kidney disease, stage 3 unspecified
CPT/HCPCS: 36415; 80053; 80061; 82306; 82607; 82728; 83036; 83540; 83550; 85025

== ENCOUNTER 2020-05-19 13:03 | Outpatient (RCR) | payer MEDICARE, SELFPAY ==
[2020-04-14 08:42] VITALS: BMI 33.7
[2020-05-19] MEDS: COVID-19 VACC, MRNA(PFIZER)/PF 30 MCG/0.3 ML SYRINGE IM (12:47)
[2020-06-09] MEDS: COVID-19 VACC, MRNA(PFIZER)/PF 30 MCG/0.3 ML SYRINGE IM (12:43)
== END 2020-05-19 23:59 ==
LOC: IMMUN 13:03
PROVIDERS: PCP Family Medicine; Visit Provider Family Medicine
DX: Z23 Encounter for immunization (principal)
CPT/HCPCS: 0001A; 0002A; 91300

== ENCOUNTER → 2020-06-23 09:03 | Outpatient (CLI) | payer MEDICARE, SELFPAY ==
[2020-04-14 08:42] VITALS: BMI 33.7
[2020-06-23 10:11] LABS: Absolute Lymphocyte Count 1.15 X10^3/uL (0.83-4.51); Absolute Neutrophil Count 2.5 X10^3/uL (2.0-7.7); Basophil# 0.01 X10^3/uL; Basophil% 0.3 % (0-1); Hemoglobin 11.7 g/dL (12.0-15.0); Lymphocyte # 1.15 X10^3/ul (4.0); Mean Corp Hgb Conc 32.5 g/dL (32-36); Mean Corpuscular Hgb 29.8 pg (27.0-32.0); Mean Corpuscular Volume 91.6 fL (81-99); Mean Platelet Vol. 9.1 fl (6.2-12.0); Monocyte# 0.32 X10^3/uL; Monocyte% 8.1 % (0-10); NRBC Flagged by Analyzer 0 % (0-5); Neutrophil # 2.47 X10^3/uL (2.7-7.7); Neutrophil % 62.1 % (47-70); Platelet Count 226 K/mm3 (150-450); RBC Distribution Width CV 12.6 % (11.6-14.6); RBC Distribution Width SD 42.3 fl (35.1-43.9); Red Blood Count 3.93 M/mm3 (4.2-5.4)
[2020-06-23 10:38] LABS: Hemoglobin A1c 6.9 % (3.8-5.6)
[2020-06-23 10:41] LABS: PTHIN 18.6 pg/mL (18.4-80.1)
[2020-06-23 10:47] LABS: Vitamin B12 294 pg/mL (211-911); Vitamin D,25 Hydroxy 32.8 ng/mL
[2020-06-23 11:06] LABS: Cholesterol 152 mg/dL (200); Ferritin 30 ng/mL (8-252); High Density Lipoprotein 37 mg/dL; Iron 110 ug/dL (50-170); Iron Binding Capacity,Total 455 ug/dL (250-450); Phosphorus 2.8 mg/dL (2.5-4.9); Triglycerides 261 mg/dL; Very Low Density Lipoprotein 52 mg/dL (5-40)
== END ==
PROVIDERS: PCP Family Medicine; Referring Provider Family Medicine; Visit Provider Family Medicine
DX: E53.8 Deficiency of other specified B group vitamins (principal); N18.30 Chronic kidney disease, stage 3 unspecified; E55.9 Vitamin D deficiency, unspecified; E11.22 Type 2 diabetes mellitus with diabetic chronic kidney disease; E78.5 Hyperlipidemia, unspecified; D64.9 Anemia, unspecified
CPT/HCPCS: 36415; 80061; 82306; 82607; 82728; 82746; 83036; 83540; 83550; 83970; 84100; 85025

== ENCOUNTER → 2020-08-12 09:53 | Outpatient (CLI) | payer MEDICARE, SELFPAY ==
[2020-04-14 08:42] VITALS: BMI 33.7
[2020-08-12 11:51] LABS: Absolute Lymphocyte Count 1.33 X10^3/uL (0.83-4.51); Absolute Neutrophil Count 3.2 X10^3/uL (2.0-7.7); Hematocrit 37.2 % (37-47); Hemoglobin 11.7 g/dL (12.0-15.0); Lymphocyte # 1.33 X10^3/ul (0.83-4.51); Lymphocyte % 25.8 % (19-41); Mean Corp Hgb Conc 31.5 g/dL (32-36); Mean Corpuscular Hgb 29.2 pg (27.0-32.0); Mean Corpuscular Volume 92.8 fL (81-99); Mean Platelet Vol. 9.6 fl (6.2-12.0); Monocyte# 0.56 X10^3/uL; Monocyte% 10.9 % (0-10); NRBC Flagged by Analyzer 0 % (0-5); Neutrophil # 3.24 X10^3/uL (2.7-7.7); Neutrophil % 62.9 % (47-70); Platelet Count 217 K/mm3 (150-450); RBC Distribution Width CV 12.6 % (11.6-14.6); RBC Distribution Width SD 43.1 fl (35.1-43.9); Red Blood Count 4.01 M/mm3 (4.2-5.4); White Blood Count 5.2 K/mm3 (4.4-11.0)
[2020-08-12 12:07] LABS: Vitamin B12 220 pg/mL (211-911)
[2020-08-12 12:19] LABS: Ferritin 27 ng/mL (8-252); Iron 95 ug/dL (50-170); Iron Binding Capacity,Total 381 ug/dL (250-450)
== END ==
PROVIDERS: PCP Family Medicine; Referring Provider Family Medicine; Visit Provider Family Medicine
DX: D64.9 Anemia, unspecified (principal)
CPT/HCPCS: 36415; 82607; 82728; 82746; 83540; 83550; 85025

== ENCOUNTER → 2020-08-31 09:26 | Outpatient (CLI) | payer MEDICARE, SELFPAY ==
[2020-04-14 08:42] VITALS: BMI 33.7
--- NOTE | 2020-08-31 09:40 | BD_ITS ---
STUDY: DUAL ENERGY X-RAY ABSORPTIOMETRY / DXA REASON FOR EXAM: Female, 80 years old. [id number]. The patient is postmenopausal. TECHNIQUE: Bone Mineral Density (BMD) measurements of lumbar spine and bilateral hips were obtained. COMPARISON: Comparison is made with prior study dated 12/28/2015. FINDINGS: Lumbar Spine (L1-L4): g/cm2 (1.004) / T-score (-1.3) / Z-score (0.5) Findings are suggestive of osteopenia with a low fracture risk. Left Femur Total: g/cm2 (0.846) / T-score (-1.3) / Z-score (0.7) Left Femoral Neck: g/cm2 (0.758) / T-score (-2.0) / Z-score (0.1) Right Femur Total: g/cm2 (0.847) / T-score (-1.3) / Z-score (0.7) Right Femoral Neck: g/cm2 (0.770) / T-score (-1.9) / Z-score (0.2) The T-Scores on the most recent prior examination were: Lumbar Spine (L1-L4): There has been improvement of bone density since the previous examination. Left Femur Total: which represents a worsening of 7%. Right Femur Total: which represents a worsening of 6.4%. BD/Dexa Bone Density Study IMPRESSION: The patient is considered osteopenic as outlined below according to World [place] Organization (WHO) criteria with a moderate fracture risk. There has been worsening of bone density since the previous examination. Reference Information: The T-score is the number of standard deviations above or below the standard which is normal for young adults at their peak bone mineral density. The World Health Organization (WHO) interprets the T-scores as follows: Above -1 Normal bone density Between -1 and -2.5 Osteopenia Equal to / or below -2.5 Osteoporosis As a practical clinical guideline, osteopenia may be graded as follows: Mild -1 through -1.5 Moderate -1.6 through -2.0 Severe -2.1 through -2.4 The Z-score is the number of standard deviations above or below age-matched controls. A Z-score of less than -1.5 would be considered abnormal. References: 1. NIH Osteoporosis and Related Bone Diseases www osteo.org 2. International Society for Clinical Densitometry www iscd.org 3. National Osteoporosis Foundation www nof.org Electronically Signed: Matt Erazo MD at 12:38 EDT , Service support ,
== END ==
PROVIDERS: PCP Family Medicine; Referring Provider Family Medicine; Visit Provider Family Medicine
DX: Z78.0 Asymptomatic menopausal state (principal)
CPT/HCPCS: 77080

== ENCOUNTER → 2020-09-29 10:17 | Outpatient (CLI) | payer MEDICARE, SELFPAY ==
[2020-04-14 08:42] VITALS: BMI 33.7
[2020-09-29 10:22] LABS: Bacteria 0 SEEN /hpf (None Seen); Mucous, Urine 0 SEEN /hpf (<or=2+); Red Blood Cells-Urine 0 SEEN /hpf (0-5); Squamous Epithelial Cells - UA 0 SEEN /hpf (5-10)
[2020-09-29 12:20] LABS: Absolute Lymphocyte Count 1.25 X10^3/uL (0.83-4.51); Absolute Neutrophil Count 3.3 X10^3/uL (2.0-7.7); Basophil# 0.01 X10^3/uL; Basophil% 0.2 % (0-1); Eosinophil# 0.01 X10^3/uL; Eosinophils% 0.2 % (0-5); Hematocrit 36.7 % (37-47); Hemoglobin 11.7 g/dL (12.0-15.0); Lymphocyte # 1.25 X10^3/ul (0.83-4.51); Lymphocyte % 24.2 % (19-41); Mean Corp Hgb Conc 31.9 g/dL (32-36); Mean Corpuscular Hgb 28.9 pg (27.0-32.0); Mean Corpuscular Volume 90.6 fL (81-99); Mean Platelet Vol. 9.6 fl (6.2-12.0); Monocyte# 0.61 X10^3/uL; Monocyte% 11.8 % (0-10); NRBC Flagged by Analyzer 0 % (0-5); Neutrophil # 3.28 X10^3/uL (2.7-7.7); Neutrophil % 63.4 % (47-70); Platelet Count 245 K/mm3 (150-450); RBC Distribution Width CV 12.3 % (11.6-14.6); RBC Distribution Width SD 40.9 fl (35.1-43.9); Red Blood Count 4.05 M/mm3 (4.2-5.4); White Blood Count 5.2 K/mm3 (4.4-11.0)
[2020-09-29 12:20] LABS: Color, Urine Yellow (Yellow); Glucose, Dipstick Normal (Normal); Ketone-Dipstick Negative (Negative); Leukocyte Esterase-Dipstick 500 /ul (Negative); Nitrite-Dipstick Negative (Negative); Occult Blood-Urine Negative /ul (Negative); Protein-Dipstick Negative (Negative); Urine Bilirubin Dipstick Negative (Negative); Urine Clarity Clear (Clear); Urine Urobilinogen Normal (Normal)
[2020-09-29 12:27] LABS: White Blood Cells 0-5 SEEN /hpf (0-5)
[2020-09-29 12:41] LABS: Vitamin B12 209 pg/mL (211-911); Vitamin D,25 Hydroxy 34.3 ng/mL
[2020-09-29 12:43] LABS: Microalbumin,Random Urine 17.7 mg/L (NO RANGE EST.); Microalbumin:Creatinine Ratio 15.4 mg/g CRE (<30 mg/g CRE); Protein, Urine (Random) 11.6 mg/dL (<11.9); Protein:Creat Ratio 101 mg/g CRE (0-200)
[2020-09-29 12:47] LABS: AST(SGOT) 28 U/L (15-37); Alanine Aminotransfer ALT/SGPT 23 U/L (13-56); Albumin, Serum 3.9 g/dL (3.2-5.0); Alkaline Phosphatase 49 U/L (45-117); Anion Gap 8 (5-15); BUN 22 mg/dL (7-18); BUN/Creat Ratio 15.2 RATIO (10-20); Calcium,Total 9.4 mg/dL (8.5-10.1); Chloride 104 mmol/L (98-107); Creatinine, Serum 1.45 mg/dL (0.55-1.02); EST Glomerular Filtration Rate 37 mL/min (>60); Est Glom Filt Rate - Afr Amer 45 mL/min (>60); Globulin 3.8 g/dL (2.2-4.2); Glucose 104 mg/dL (74-106); Phosphorus 3.2 mg/dL (2.5-4.9); Potassium 4.1 mmol/L (3.5-5.1); Protein, Total 7.7 g/dL (6.4-8.2); Sodium Level 138 mmol/L (136-145)
[2020-09-29 12:54] LABS: PTHIN 24.5 pg/mL (18.4-80.1)
== END ==
PROVIDERS: PCP Family Medicine; Referring Provider Family Medicine; Visit Provider Family Medicine
DX: E11.22 Type 2 diabetes mellitus with diabetic chronic kidney disease (principal); N18.30 Chronic kidney disease, stage 3 unspecified; E53.8 Deficiency of other specified B group vitamins; E55.9 Vitamin D deficiency, unspecified
CPT/HCPCS: 80053; 81001; 82043; 82306; 82570; 82607; 83036; 83970; 84100; 84156; 85025

== ENCOUNTER → 2020-11-22 08:44 | Outpatient (CLI) | payer MEDICARE, SELFPAY ==
[2020-11-22 08:49] LABS: Bacteria 0 SEEN /hpf (None Seen); Mucous, Urine 0 SEEN /hpf (<or=2+); Red Blood Cells-Urine 0 SEEN /hpf (0-5); Squamous Epithelial Cells - UA 0 SEEN /hpf (5-10)
[2020-11-22 10:28] LABS: Color, Urine Yellow (Yellow); Glucose, Dipstick Normal (Normal); Ketone-Dipstick Negative (Negative); Leukocyte Esterase-Dipstick 100 /ul (Negative); Nitrite-Dipstick Negative (Negative); Occult Blood-Urine Negative /ul (Negative); Protein-Dipstick Negative (Negative); Specific Gravity, Urine 1.015 (1.002-1.030); Urine Bilirubin Dipstick Negative (Negative); Urine Clarity Clear (Clear); Urine Urobilinogen Normal (Normal)
[2020-11-22 10:29] LABS: Absolute Lymphocyte Count 1.16 X10^3/uL (0.83-4.51); Basophil# 0.01 X10^3/uL; Basophil% 0.2 % (0-1); Eosinophil# 0.01 X10^3/uL; Eosinophils% 0.2 % (0-5); Hematocrit 36.1 % (37-47); Hemoglobin 11.6 g/dL (12.0-15.0); Lymphocyte # 1.16 X10^3/ul (0.83-4.51); Lymphocyte % 20.5 % (19-41); Mean Corp Hgb Conc 32.1 g/dL (32-36); Mean Corpuscular Hgb 29.1 pg (27.0-32.0); Mean Corpuscular Volume 90.7 fL (81-99); Mean Platelet Vol. 9.6 fl (6.2-12.0); Monocyte# 0.47 X10^3/uL; Monocyte% 8.3 % (0-10); NRBC Flagged by Analyzer 0 % (0-5); Neutrophil # 3.98 X10^3/uL (2.7-7.7); Neutrophil % 70.4 % (47-70); Platelet Count 238 K/mm3 (150-450); RBC Distribution Width CV 12.5 % (11.6-14.6); RBC Distribution Width SD 41.6 fl (35.1-43.9); Red Blood Count 3.98 M/mm3 (4.2-5.4); White Blood Count 5.7 K/mm3 (4.4-11.0)
[2020-11-22 10:43] LABS: White Blood Cells 0-5 SEEN /hpf (0-5)
[2020-11-22 10:45] LABS: Vitamin D,25 Hydroxy 42.1 ng/mL
[2020-11-22 10:55] LABS: PTHIN 15.8 pg/mL (18.4-80.1)
[2020-11-22 11:01] LABS: Hemoglobin A1c 6.8 % (3.8-5.6)
[2020-11-22 11:18] LABS: ALB/GLOB Ratio 0.9 RATIO (0.9-2.4); AST(SGOT) 27 U/L (15-37); Alanine Aminotransfer ALT/SGPT 19 U/L (13-56); Albumin, Serum 3.5 g/dL (3.2-5.0); Alkaline Phosphatase 46 U/L (45-117); Anion Gap 7 (5-15); BUN 21 mg/dL (7-18); BUN/Creat Ratio 15.8 RATIO (10-20); Calcium,Total 9.4 mg/dL (8.5-10.1); Chloride 102 mmol/L (98-107); Cholesterol 143 mg/dL (200); Creatinine, Serum 1.33 mg/dL (0.55-1.02); EST Glomerular Filtration Rate 41 mL/min (>60); Est Glom Filt Rate - Afr Amer 49 mL/min (>60); Globulin 3.9 g/dL (2.2-4.2); Glucose 153 mg/dL (74-106); High Density Lipoprotein 34 mg/dL; Phosphorus 2.4 mg/dL (2.5-4.9); Potassium 4.1 mmol/L (3.5-5.1); Protein, Total 7.4 g/dL (6.4-8.2); Sodium Level 136 mmol/L (136-145); Triglycerides 253 mg/dL; Very Low Density Lipoprotein 51 mg/dL (5-40)
[2020-11-24 09:32] LABS: Ferritin 25 ng/mL (8-252); Iron 75 ug/dL (50-170); Iron Binding Capacity,Total 447 ug/dL (250-450); PERCENT IRON SATURATION 16.8 % (15.0-55.0)
== END ==
PROVIDERS: PCP Family Medicine; Visit Provider Family Medicine
DX: D64.9 Anemia, unspecified (principal); E11.22 Type 2 diabetes mellitus with diabetic chronic kidney disease; N18.30 Chronic kidney disease, stage 3 unspecified
CPT/HCPCS: 36415; 80053; 80061; 81001; 82306; 82728; 83036; 83540; 83550; 83970; 84100; 85025

== ENCOUNTER → 2021-02-20 10:11 | Outpatient (CLI) | payer MEDICARE, SELFPAY ==
[2021-02-20 10:21] LABS: Mucous, Urine 0 SEEN /hpf (<or=2+); Red Blood Cells-Urine 0 SEEN /hpf (0-5); White Blood Cells 0 SEEN /hpf (0-5)
[2021-02-20 12:07] LABS: Color, Urine Yellow (Yellow); Glucose, Dipstick Normal (Normal); Ketone-Dipstick Negative (Negative); Leukocyte Esterase-Dipstick Negative /ul (Negative); Nitrite-Dipstick Negative (Negative); Occult Blood-Urine Negative /ul (Negative); Protein-Dipstick Negative (Negative); Specific Gravity, Urine 1.015 (1.002-1.030); Urine Bilirubin Dipstick Negative (Negative); Urine Clarity Clear (Clear); Urine Urobilinogen Normal (Normal)
[2021-02-20 12:21] LABS: Absolute Lymphocyte Count 1.44 X10^3/uL (0.83-4.51); Absolute Neutrophil Count 4.3 X10^3/uL (2.0-7.7); Basophil# 0.02 X10^3/uL; Basophil% 0.3 % (0-1); Eosinophil# 0.04 X10^3/uL; Eosinophils% 0.6 % (0-5); Hematocrit 37.2 % (37-47); Hemoglobin 11.7 g/dL (12.0-15.0); Lymphocyte # 1.44 X10^3/ul (0.83-4.51); Lymphocyte % 22.3 % (19-41); Mean Corp Hgb Conc 31.5 g/dL (32-36); Mean Corpuscular Hgb 28.1 pg (27.0-32.0); Mean Corpuscular Volume 89.2 fL (81-99); Mean Platelet Vol. 9.7 fl (6.2-12.0); Monocyte# 0.67 X10^3/uL; Monocyte% 10.4 % (0-10); NRBC Flagged by Analyzer 0 % (0-5); Neutrophil # 4.28 X10^3/uL (2.7-7.7); Neutrophil % 66.2 % (47-70); Platelet Count 252 K/mm3 (150-450); RBC Distribution Width CV 13.3 % (11.6-14.6); RBC Distribution Width SD 43.8 fl (35.1-43.9); Red Blood Count 4.17 M/mm3 (4.2-5.4); White Blood Count 6.5 K/mm3 (4.4-11.0)
[2021-02-20 12:37] LABS: Bacteria RARE /hpf (None Seen); Squamous Epithelial Cells - UA 0-5 SEEN /hpf (5-10)
[2021-02-20 12:39] LABS: Vitamin D,25 Hydroxy 33.8 ng/mL
[2021-02-20 12:50] LABS: ALB/GLOB Ratio 0.9 RATIO (0.9-2.4); AST(SGOT) 26 U/L (15-37); Alanine Aminotransfer ALT/SGPT 21 U/L (13-56); Albumin, Serum 3.7 g/dL (3.2-5.0); Alkaline Phosphatase 60 U/L (45-117); Anion Gap 9 (5-15); BUN 27 mg/dL (7-18); BUN/Creat Ratio 19.9 RATIO (10-20); Chloride 101 mmol/L (98-107); Cholesterol 164 mg/dL (200); Creatinine, Serum 1.36 mg/dL (0.55-1.02); EST Glomerular Filtration Rate 40 mL/min (>60); Est Glom Filt Rate - Afr Amer 48 mL/min (>60); Globulin 3.9 g/dL (2.2-4.2); Glucose 115 mg/dL (74-106); High Density Lipoprotein 37 mg/dL; Phosphorus 3.3 mg/dL (2.5-4.9); Potassium 4.2 mmol/L (3.5-5.1); Protein, Total 7.6 g/dL (6.4-8.2); Sodium Level 137 mmol/L (136-145); Triglycerides 294 mg/dL; Very Low Density Lipoprotein 59 mg/dL (5-40)
[2021-02-20 14:54] LABS: PTHIN 13.8 pg/mL (18.4-80.1)
== END ==
PROVIDERS: PCP Family Medicine; Referring Provider Family Medicine; Visit Provider Family Medicine
DX: E11.22 Type 2 diabetes mellitus with diabetic chronic kidney disease (principal); N18.30 Chronic kidney disease, stage 3 unspecified
CPT/HCPCS: 36415; 80053; 80061; 81001; 82306; 83036; 83970; 84100; 85025

== ENCOUNTER 2021-05-17 06:10 | Outpatient (CLI) | payer MEDICARE, SELFPAY ==
--- NOTE | 2021-05-17 18:07 | STRESSREP ---
Stress Test Report Pharmacologic myocardial perfusion stress test. 81-year-old lady with a history of chest pain. Stress protocol: Resting EKG demonstrates normal sinus rhythm with a rate of 83 bpm. Resting blood pressure is 140/62 mmHg. 0.4 mg of regadenoson was infused per usual protocol followed by rapid intravenous saline flush injection continuous EKG monitoring was performed. The maximum heart rate attained was 91 bpm which was 65% of max impact at heart rate the maximum workload was 1 metabolic equivalent. At rest there were no ST or T wave changes noted suggest ischemia and at peak infusion nonspecific ST changes were noted. The maximum blood pressure is 140/62 mmHg. Myocardial perfusion protocol. 11.7 mCi of technetium 99m sestamibi was injected at rest. 0.4 mg of regadenoson was infused per usual protocol. At peak infusion 34.4 mCi of technetium 99m sestamibi was injected stress images were obtained stress and rest images were reconstructed and compared in the short axis vertical long and horizontal long axis. Gated images were also obtained. Perfusion SPECT analysis: Review of the stress images demonstrate normal uptake of tracer noted in all areas of the myocardium. The resting images similarly demonstrate normal uptake of tracer noted in all areas of the myocardium. No previous infarct is noted and no ischemia is present. Gated SPECT analysis: The gated ejection fraction is 91%. Conclusion: Normal pharmacologic myocardial perfusion stress test. Preserved ejection fraction.
== END 2021-05-17 23:59 | disposition home or self-care (01) ==
PROVIDERS: PCP Family Medicine; Referring Provider Internal Medicine Cardiovascular Disease; Visit Provider Internal Medicine Cardiovascular Disease
DX: I25.10 Atherosclerotic heart disease of native coronary artery without angina pectoris (principal); I45.10 Unspecified right bundle-branch block; I10 Essential (primary) hypertension; E78.00 Pure hypercholesterolemia, unspecified; Z95.1 Presence of aortocoronary bypass graft; Z95.5 Presence of coronary angioplasty implant and graft
CPT/HCPCS: 78452; 93017; A9500; A4216; J2785

== ENCOUNTER 2021-05-18 12:12 | Inpatient (IN) | payer MEDICARE, SELFPAY ==
[2021-05-18] VITALS (7 sets, daily range): BP systolic 103–134; BP diastolic 56–73; PULSE 69–80; RESP 14–20; TEMP 36.2–37.1; O2SAT 90–97; BMI 27.0; BMI 31.1
--- NOTE | 2021-05-18 12:25 | CT_ITS ---
STUDY: CT BRAIN WITHOUT CONTRAST REASON FOR EXAM: Female, 81 years old. Head injury RADIATION DOSAGE (If Supplied By Facility): CTDIvol = ( 44.99 ) mGy, DLP = ( 812.98 ) mGycm TECHNIQUE: Transaxial CT imaging of the brain was performed without administration of intravenous contrast material. Individualized dose optimization techniques were used for this CT. COMPARISON: Comparison is made with prior study dated 08/05/2019. FINDINGS: Normal soft tissue structures. Normal calvarium. There is mild cerebral atrophy with widening of the extra-axial spaces and ventricular dilatation. There are areas of decreased attenuation within the white matter tracts of the supratentorial brain, consistent with microvascular disease changes. Normal basal ganglia and thalami. Normal brainstem. Normal cerebellum. There is no intracranial hemorrhage. There are no findings of an acute ischemic infarction. Atherosclerotic calcification of the vertebral arteries and cavernous portions of the internal carotid arteries bilaterally. Normal visualized paranasal sinuses. CT/Brain/Head without Contrast IMPRESSION: Chronic involutional changes of the brain. Electronically Signed: Matt Erazo MD at 14:06 EST ,
--- NOTE | 2021-05-18 12:27 | ED.VIS.FALL ---
HPI HPI - Fall History of Present Illness Chief Complaint: Fall Narrative Narrative: 81-year-old female with PMH of HTN, HLD, CAD presents with left hip pain and deformity. She was kneeling to clean the refrigerator and when she stood up she lost her balance and fell backwards. She mainly landed on the left hip but did hit her head on the cupboard. No LOC. She was unable to get up. Her was home within 15 minutes and called EMS. Her left leg is rotated and shortened. She denies headache, nausea, vomiting, neck or back pain. She is on aspirin and Plavix. [facility] Medical History (Updated 05/18/21 @ 13:34 by Darshana Chavez) Atherosclerotic heart disease of [place] coronary artery without angina pectoris Diabetes mellitus Essential (primary) hypertension Fracture of right wrist with routine healing GERD (gastroesophageal reflux disease) HLD (hyperlipidemia) Obesity KATTY (obstructive sleep apnea) Pancreatitis Right bundle branch block (RBBB) Home Medications alprazolam 0.25 mg tablet 0.25 mg PO TID tab 07/22/17 [History Last Taken Unknown] calcium carbonate 600 mg-vitamin D3 5 mcg (200 unit) tablet 1 tab PO QDAY 07/22/17 [History Last Taken Unknown] metformin 500 mg tablet 1,000 mg PO BIDCM 07/22/17 [History Last Taken Unknown] cholecalciferol (vitamin D3) 50 mcg (2,000 unit) tablet 3,000 unit PO QDAY tab 06/06/18 [History Last Taken Unknown] aspirin 81 mg tablet,delayed release 81 mg PO DAILY 07/24/18 [History Last Taken Unknown] buspirone 10 mg tablet 10 mg PO TID tab 04/18/21 [History Last Taken Unknown] clopidogrel 75 mg tablet 75 mg PO DAILY #90 tab 04/18/21 [Rx Last Taken Unknown] clotrimazole 1 % topical cream 1 applic TOPICAL BID PRN g 04/18/21 [History Last Taken Unknown] fenofibrate 160 mg tablet 160 mg PO QDAY #90 tab 04/18/21 [Rx Last Taken Unknown] furosemide 40 mg tablet 40 mg PO QDAY 90 Days #90 tab 04/18/21 [Rx Last Taken Unknown] lisinopril 5 mg tablet 5 mg PO DAILY #90 tab 04/18/21 [Rx Last Taken Unknown] metoprolol tartrate 25 mg tablet 12.5 mg PO BID #90 tab 04/18/21 [Rx Last Taken Unknown] potassium chloride 10 mEq tablet,extended release 20 meq PO DAILY #180 tab 04/18/21 [Rx Last Taken Unknown] rosuvastatin 10 mg tablet 10 mg PO DAILY #90 tab 04/18/21 [Rx Last Taken Unknown] sertraline 100 mg tablet 100 mg PO DAILY 04/18/21 [History Last Taken Unknown] Allergy/AdvReac Type Severity Reaction Status Date / Time adhesive tape AdvReac Unknown Verified 05/18/21 12:16 morphine AdvReac Vomiting Verified 05/18/21 12:16 Gjdzjhs-XNT-TsR Reductase AdvReac Pain in Verified 05/18/21 12:16 Inhibitor joints [Inyahfz-Hmz-Eli Reductase Inhibitor] Family History Mother Hypertension Surgical History 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) History of coronary artery stent placement (11/17/14) Hx of appendectomy Hx of cholecystectomy Hx of hysterectomy Social History alcohol intake: never substance use type: does not use caffeine: Yes Type: carbonated beverages what type of physical activity do you participate in: none seatbelt use: always do you feel safe at home: Yes ROS ROS ED ROS Narrative Constitutional: Negative for fever, chills, malaise. Eyes: Negative for visual change. ENT: Negative for sore throat, ear pain, rhinorrhea. CVS: Negative for palpitations, chest pain, syncope. Respiratory: Negative for shortness of breath, cough, orthopnea. GI: Negative for abdominal pain, nausea, vomiting, diarrhea, constipation, melena, hematochezia. : Negative for dysuria, hematuria or frequency. Neuro: Negative for headache, motor/sensory dysfunction. Skin: Negative for rash, abscess, or wound. Musc: Positive for left hip pain, trauma. Heme: Positive for easy bruising, bleeding due to Plavix. EXAM Physical Exam Narrative Exam Narrative: CONST: Patient sitting in no acute distress. EYES: Normal inspection. PERRLA, EOMI. ENT: Head normocephalic atraumatic, no raccoon eyes or kaiser sign, no hemotympanum, no nasal septal hematoma, no CSF otorrhea or rhinorrhea. NECK: Normal inspection. No midline spinal tenderness, no step off or crepitus. RESP: No respiratory distress, CTAB. CVS: Regular rate and rhythm, no murmur, no gallop. Chest wall nontender. ABD: Soft and nontender, no guarding or rebound, nondistended. PELVIS: Stable. Back: Normal inspection, no midline spinal tenderness, no step off or crepitus. SKIN: 4 x 4 centimeter skin tear left distal upper arm. No bony tenderness EXTREMITIES: Left leg is shortened and externally rotated with tenderness over the hip and pain with movement. Otherwise nontender. Normal sensation, 2+ radial and DP pulses. NEURO: Oriented x4. PSYCH: Normal affect. Const Vital Signs: 05/18/21 12:13 05/18/21 13:30 05/18/21 13:33 Temperature 98.1 F Temperature Source Oral Pulse Rate 69 70 Respiratory Rate 20 H 16 Respiratory Effort Normal Non-Labored Respiratory Depth Normal Respiratory Pattern Normal Blood Pressure 103/73 127/65 H Blood Pressure Mean 83 85 Pulse Ox 97 95 Oxygen Delivery Method Room Air Room Air Room Air MDM MDM MDM Narrative Medical decision making narrative: Patient had a mechanical fall and presents with left hip pain and deformity. She appears well and nontoxic. Afebrile and vital signs within normal limits. She states she bumped her head on a cupboard without LOC but has no evidence of head trauma or basilar skull fracture. No midline neck or spinal tenderness. Chest wall stable with normal heart and lung sounds. Abdomen soft and nontender. Pelvis is stable. Her left leg is shortened and externally rotated with tenderness over the hip. Neurovascularly intact. CT brain is negative. Left hip x-ray shows comminuted intertrochanteric fracture. Case was discussed with on-call orthopedic doctor Charu and the hospitalist and she will be admitted for surgical fixation. Diagnoses 1. Mechanical fall 2. Closed head injury without loss of consciousness 3. Left hip fracture Radiography Diagnostic Testing: Clinical Impression(s) from Imaging Studies Brain CT 05/18/21 12:25 IMPRESSION: Chronic involutional changes of the brain. Electronically Signed: Matt Erazo MD at 14:06 EST , Chest X-Ray 05/18/21 13:30 IMPRESSION: No acute abnormality is seen. Electronically Signed: Matt Erazo MD at 14:05 EST , Hip/Pelvis X-Ray 05/18/21 13:30 IMPRESSION: There is a comminuted fracture of the intertrochanteric region of the left femur. Electronically Signed: Matt Erazo MD at 14:03 EST , ED attending interpretation of 1 view chest x-ray shows normal heart size, no acute infiltrate or effusion. ED attending interpretation of the left hip shows acute intertrochanteric fracture. Discharge Plan Triage Chief Complaint: Fall ED Provider: Vivian Griffin Dx/Rx/DC Orders Prescriptions: No Action calcium carbonate-vitamin D3 [Calcium 600 + D(3)] 600 mg(1,500mg) -200 unit tablet 1 tab PO QDAY RF: 0 alprazolam 0.25 mg tablet 0.25 mg PO TID RF: 0 cholecalciferol (vitamin D3) 2,000 unit tablet 2,000 unit tablet 3,000 unit PO QDAY RF: 0 aspirin [Adult Aspirin Regimen] 81 mg tablet,delayed release (DR/EC) 81 mg PO DAILY RF: 0 sertraline [Zoloft] 100 mg tablet 100 mg PO DAILY RF: 0 clotrimazole 1 % cream 1 applic topical BID PRNRF: 0 buspirone 10 mg tablet 10 mg PO TID RF: 0 clopidogrel 75 mg tablet 75 mg PO DAILY Qty: 90 RF: 3 furosemide 40 mg tablet 40 mg PO QDAY 90 Days Qty: 90 RF: 3 fenofibrate 160 mg tablet 160 mg tablet 160 mg PO QDAY Qty: 90 RF: 3 lisinopril 5 mg tablet 5 mg PO DAILY Qty: 90 RF: 3 metoprolol tartrate 25 mg tablet 12.5 mg PO BID Qty: 90 RF: 3 potassium chloride 10 mEq tablet extended release 20 meq PO DAILY Qty: 180 RF: 3 rosuvastatin [Crestor] 10 mg tablet 10 mg PO DAILY Qty: 90 RF: 3 metformin 500 mg tablet 1,000 mg PO BIDCM RF: 0 Primary Care Provider: Michele Lang
[2021-05-18] MEDS: Morphine 2 MG/ML Syringe IV ×2 (13:14→14:49)
[2021-05-18] MEDS: Ondansetron 4 MG/2 ML Vial IV (13:14)
--- NOTE | 2021-05-18 13:30 | RAD_ITS ---
STUDY: X-RAY - PELVIS AND LEFT HIP REASON FOR EXAM: Female, 81 years old. Injury/Pain TECHNIQUE: 3 views of the pelvis and hip. COMPARISON: None. FINDINGS: There is a non-specific bowel gas pattern. Normal visualized soft tissue structures. Comminuted fracture of the intertrochanteric region of the proximal left femur. RAD/HIP, UNI W/ Pelvis 2-3 Views IMPRESSION: There is a comminuted fracture of the intertrochanteric region of the left femur. Electronically Signed: Matt Erazo MD at 14:03 EST ,
--- NOTE | 2021-05-18 13:30 | RAD_ITS ---
STUDY: X-RAY CHEST REASON FOR EXAM: Female, 81 years old. Pre op TECHNIQUE: Single AP portable view of the chest. COMPARISON: Comparison is made with prior study dated 05/08/2015. FINDINGS: EKG lead clips are seen. Elevation of the right hemidiaphragm. The lungs are clear. There is no demonstrated pleural abnormality. Sternal cerclage wires and vascular clips are present from a prior sternotomy and coronary artery bypass graft procedure (CABG). Normal mediastinum and karina. Normal visualized pulmonary arteries. Normal visualized aortic arch and descending thoracic aorta. There are diffuse degenerative changes of the visualized thoracic spine. Normal visualized ribs, clavicles, and shoulders. There is no demonstrated abnormality of the visualized soft tissue structures of the upper abdomen. RAD/Chest 1 View (Portable) IMPRESSION: No acute abnormality is seen. Electronically Signed: Matt Erazo MD at 14:05 EST ,
--- NOTE | 2021-05-18 14:15 | EKG12_ITS ---
Test Reason : FALL Blood Pressure : / mmHG Vent. Rate : 070 BPM Atrial Rate : 070 BPM P-R Int : 154 ms QRS Dur : 120 ms QT Int : 414 ms P-R-T Axes : 049 039 018 degrees QTc Int : 447 ms Normal sinus rhythm Right bundle branch block Abnormal ECG Confirmed by NATTY MARCUM, ABRIL ([id number]), film editor supervisor CYN ACOSTA ([id number]) on 05/19/2021 9:08:32 AM Referred By: HUMAIRA Confirmed By:ABRIL LUZ MD
[2021-05-18 14:21] LABS: Absolute Lymphocyte Count 0.99 X10^3/uL (0.83-4.51); Absolute Neutrophil Count 6.9 X10^3/uL (2.0-7.7); Basophil# 0.01 X10^3/uL; Basophil% 0.1 % (0-1); Eosinophil# 0.06 X10^3/uL; Eosinophils% 0.7 % (0-5); Hematocrit 33.4 % (37-47); Lymphocyte # 0.99 X10^3/ul (0.83-4.51); Lymphocyte % 11.6 % (19-41); Mean Corp Hgb Conc 32.9 g/dL (32-36); Mean Corpuscular Hgb 29.3 pg (27.0-32.0); Mean Corpuscular Volume 89.1 fL (81-99); Mean Platelet Vol. 9.5 fl (6.2-12.0); Monocyte# 0.56 X10^3/uL; Monocyte% 6.5 % (0-10); NRBC Flagged by Analyzer 0 % (0-5); Neutrophil # 6.88 X10^3/uL (2.7-7.7); Neutrophil % 80.5 % (47-70); Platelet Count 217 K/mm3 (150-450); RBC Distribution Width SD 45.9 fl (35.1-43.9); Red Blood Count 3.75 M/mm3 (4.2-5.4); White Blood Count 8.6 K/mm3 (4.4-11.0)
[2021-05-18 14:32] LABS: International Normalized Ratio 1.1
--- NOTE | 2021-05-18 14:36 | PCM.HP.STD ---
HPI - General General Date of Admission: 05/18/21 Date of Service: 05/18/21 Chief Complaint: left hip pain HPI Narrative TAMICA REBOLLEDO, is a 81 F who presents presents with left hip pain. Patient was cleaning her refrigerator today and then felt dizzy and fell backwards landing on her hip and hitting her head. She denied any loss of consciousness but had immediate pain in her hip. Presented to the emergency room and her head CT was negative and the x-ray of her hip showed a comminuted fracture of the intertrochanteric region of the left femur. Dr. Box, of orthopedics, was contacted and would be seeing the patient in consultation. Patient is otherwise been doing well and actually had a stress test performed yesterday that was negative. [facility] Medical History Atherosclerotic heart disease of [place] coronary artery without angina pectoris Diabetes mellitus Essential (primary) hypertension Fracture of right wrist with routine healing GERD (gastroesophageal reflux disease) HLD (hyperlipidemia) Obesity KATTY (obstructive sleep apnea) Pancreatitis Right bundle branch block (RBBB) Home Medications alprazolam 0.25 mg tablet 0.25 mg PO TID tab 07/22/17 [History Last Taken Unknown] calcium carbonate 600 mg-vitamin D3 5 mcg (200 unit) tablet 1 tab PO QDAY 07/22/17 [History Last Taken Unknown] metformin 500 mg tablet 1,000 mg PO BIDCM 07/22/17 [History Last Taken Unknown] aspirin 81 mg tablet,delayed release 81 mg PO DAILY 07/24/18 [History Last Taken Unknown] buspirone 10 mg tablet 10 mg PO TID tab 04/18/21 [History Last Taken Unknown] clopidogrel 75 mg tablet 75 mg PO DAILY #90 tab 04/18/21 [Rx Last Taken Unknown] metoprolol tartrate 25 mg tablet 12.5 mg PO BID #90 tab 04/18/21 [Rx Last Taken Unknown] potassium chloride 10 mEq tablet,extended release 20 meq PO DAILY #180 tab 04/18/21 [Rx Last Taken Unknown] rosuvastatin 10 mg tablet 10 mg PO DAILY #90 tab 04/18/21 [Rx Last Taken Unknown] sertraline 100 mg tablet 100 mg PO DAILY 04/18/21 [History Last Taken Unknown] biotin 1,000 mcg PO DAILY 05/18/21 [History Last Taken 05/18/21] fenofibrate 160 mg PO DAILY 05/18/21 [History Last Taken 05/18/21] furosemide 40 mg PO DAILY 05/18/21 [History Last Taken Unknown] Allergy/AdvReac Type Severity Reaction Status Date / Time adhesive tape AdvReac Unknown Verified 05/18/21 12:16 morphine AdvReac Vomiting Verified 05/18/21 12:16 Hpajisc-OIQ-FhH Reductase AdvReac Pain in Verified 05/18/21 12:16 Inhibitor joints [Prztdrt-Rye-Nyq Reductase Inhibitor] Family History (Updated 05/18/21 @ 14:[address] Vivek Maldonado DO) Mother Hypertension Other CAD (coronary artery disease) Surgical History 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) History of coronary artery stent placement (11/17/14) Hx of appendectomy Hx of cholecystectomy Hx of hysterectomy Social History Smoking Status: Never smoker alcohol intake: never substance use type: does not use caffeine: Yes Type: carbonated beverages what type of physical activity do you participate in: none seatbelt use: always do you feel safe at home: Yes ROS ROS Narrative All review of systems were negative except as mentioned above in the history of present illness and the other review of systems. Vital Signs Vital Signs Vital Signs: 05/18/21 12:13 05/18/21 13:30 05/18/21 13:33 Temperature 36.7 C Temperature Source Oral Pulse Rate 69 70 Respiratory Rate 20 H 16 Respiratory Effort Normal Non-Labored Respiratory Depth Normal Respiratory Pattern Normal Blood Pressure 103/73 127/65 H Blood Pressure Mean 83 85 Pulse Ox 97 95 Oxygen Delivery Method Room Air Room Air Room Air 05/18/21 14:00 Temperature Temperature Source Pulse Rate 75 Respiratory Rate 14 Respiratory Effort Respiratory Depth Respiratory Pattern Blood Pressure 122/56 H Blood Pressure Mean 78 Pulse Ox 92 Oxygen Delivery Method Room Air Weight Weight: 56.699 kg Body Mass Index (BMI) 27.0 Physical Exam Const alert General Appearance: cooperative HEENT normocephalic, head/scalp atraumatic, hearing grossly normal bilaterally and moist oral mucous membranes Neck no lymphadenopathy Resp normal respiratory effort, no retractions, no use of accessory muscles and clear to auscultation bilaterally Cardio regular rate, regular rhythm, S1 normal heart sound and S2 normal heart sound GI normal to inspection, nondistended, normoactive bowel sounds, soft to palpation, non-tender and non-distended Extremity Extremity Narrative: Shortened left lower extremity compared to the right Skin no rashes or lesions noted Neuro Neuro Narrative: Sensation grossly intact Sensorium / Orientation: awake and alert Results Lab / Micro Data Attestation: I reviewed the patient's lab results. Result Diagrams: 05/18/21 14:02 05/18/21 14:02 Labs: Laboratory Results - last 24 hr 05/18/21 14:02: WBC 8.6, RBC 3.75 L, Hgb 11.0 L, Hct 33.4 L, MCV 89.1, MCH 29.3, MCHC 32.9, RDW Std Deviation 45.9 H, RDW Coeff of Angel 14.0, Plt Count 217, MPV 9.5, Immature Gran % (Auto) 0.600, Neut % (Auto) 80.5 H, Lymph % (Auto) 11.6 L, [place] % (Auto) 6.5, Eos % (Auto) 0.7, Baso % (Auto) 0.1, Absolute Neuts (auto) 6.9, Absolute Lymphs (auto) 0.99, Nucleated RBC % 0 05/18/21 14:02: PT 14.0, INR 1.1 05/18/21 14:02: Sodium Cancelled, Potassium Cancelled, Chloride Cancelled, Carbon Dioxide Cancelled, Anion Gap Cancelled, BUN Cancelled, Creatinine Cancelled, Estim Creat Clear Calc Cancelled, Est GFR (MDRD) Af Amer Cancelled, Est GFR (MDRD) Non-Af Cancelled, BUN/Creatinine Ratio Cancelled, Glucose Cancelled, Calcium Cancelled Radiology Impression Brain CT 05/18/21 12:25 IMPRESSION: Chronic involutional changes of the brain. Electronically Signed: Matt Erazo MD at 14:06 EST , Chest X-Ray 05/18/21 13:30 IMPRESSION: No acute abnormality is seen. Electronically Signed: Matt Erazo MD at 14:05 EST , Hip/Pelvis X-Ray 05/18/21 13:30 IMPRESSION: There is a comminuted fracture of the intertrochanteric region of the left femur. Electronically Signed: Matt Erazo MD at 14:03 EST , Assessment & Plan Assessment/Plan (1) Closed left hip fracture: QUALIFIERS: Encounter type: initial encounter Qualified Code(s): S72.002A - Fracture of unspecified part of neck of left femur, initial encounter for closed fracture PLAN: 1. Left hip fracture Status post mechanical fall Patient medically cleared to proceed with surgery Patient had a nuclear stress test performed on the second that was negative. No additional cardiac work-up is necessary Will hold the patient's clopidogrel. Notify Dr. oBx that patient's last dose was taken today. Plan is for surgery on the fourth at 1530 2. Coronary artery disease Remote history of CABG She had PCI around 3 to 4 years ago Still takes clopidogrel her last dose was today Hold aspirin as well 3. Diabetes mellitus type 2 [id number]-dldwexruh Doing dissipate some hyperglycemia, extent of which is unclear at this time Will initiate sliding-scale insulin for now. I do not dissipate patient would require an insulin upon discharge. 4. VTE prophylaxis: SCDs for now. Hold chemical prophylaxis until after surgery. 5. COVID-19 vaccination status: Patient is vaccinated for COVID-19 6. CODE STATUS: Patient wishes to be full code. Charges/Coding Visit Charges Inpatient E&M: 92294 Init Hosp L2
[2021-05-18] MEDS: 0.9% Saline Lock 10 ML Syringe IV (14:50)
[2021-05-18 15:35] LABS: Anion Gap 5 (5-15); BUN 20 mg/dL (7-18); BUN/Creat Ratio 15.7 RATIO (10-20); Calcium,Total 9.3 mg/dL (8.5-10.1); Chloride 104 mmol/L (98-107); Creatinine, Serum 1.27 mg/dL (0.55-1.02); EST Glomerular Filtration Rate 43 mL/min (>60); Est Glom Filt Rate - Afr Amer 52 mL/min (>60); Estimated Creatinine Clearance 36.48 ml/min; Glucose 126 mg/dL (74-106); Potassium 4.1 mmol/L (3.5-5.1); Sodium Level 138 mmol/L (136-145)
[2021-05-18 15:46] LABS: AST(SGOT) 29 U/L (15-37); Alanine Aminotransfer ALT/SGPT 18 U/L (13-56); Albumin, Serum 3.5 g/dL (3.2-5.0); Alkaline Phosphatase 44 U/L (45-117); Bilirubin, Direct 0.13 mg/dL (0.00-0.30); Globulin 3.2 g/dL (2.2-4.2); Protein, Total 6.7 g/dL (6.4-8.2)
[2021-05-18] MEDS: Acetaminophen 325 MG Tablet 650 MG PO ×2 (16:14→22:59)
[2021-05-18] MEDS: oxyCODONE 5 MG Tablet PO ×2 (16:15→17:11)
[2021-05-18] MEDS: Furosemide 40 MG Tablet PO (16:15)
[2021-05-18] MEDS: metFORMIN HCl 1,000 MG Tablet 1000 MG PO (16:21)
[2021-05-18 16:26] LABS: Bedside Glucose 117 mg/dL (74-106)
--- NOTE | 2021-05-18 16:46 | CONS.ORTHO ---
HPI Consult Data Date of Consult: 05/18/21 HPI Narrative HPI Narrative: TAMICA REBOLLEDO, is a 81 F who presented after a mechanical fall to [facility] emergency department 05/18/2021 after she was cleaning her freezer, had pain in her left knee which is not unusual for her trying to get to the standing position. When she reached standing, she believes she lost her balance and fell onto her left side. She also injured her head. Denies any syncopal or presyncopal symptoms. Denies any loss of consciousness after the fall. Was unable to bear any weight on the left side. X-rays in the emergency department revealed a left comminuted intertrochanteric proximal femur fracture. CT scan of the head was negative for acute process. She was then admitted under the service of the hospitalist. I was consulted from emergency department. At time of my examination, patient was resting comfortably. She denied any pain in anything besides her left hip. Denies any numbness or tingling. Denied fevers, chills, nausea vomiting, chest pain or shortness of breath. Patient has a remote cardiac history with CABG performed 20 years ago. She had 2 stents placed 5 years ago. Patient takes aspirin and Plavix. Last dose of Plavix was today. Patient occasionally uses a cane for ambulation, but does not use any assistive device around the house. Denies any antecedent hip or groin pain. She is a community ambulator. [facility] Medical History Atherosclerotic heart disease of [place] coronary artery without angina pectoris Diabetes mellitus Essential (primary) hypertension Fracture of right wrist with routine healing GERD (gastroesophageal reflux disease) HLD (hyperlipidemia) Obesity KATTY (obstructive sleep apnea) Pancreatitis Right bundle branch block (RBBB) Home Medications alprazolam 0.25 mg tablet 0.25 mg PO TID tab 07/22/17 [History Last Taken 05/18/21] calcium carbonate 600 mg-vitamin D3 5 mcg (200 unit) tablet 1 tab PO QDAY 07/22/17 [History Last Taken 05/18/21] metformin 500 mg tablet 1,000 mg PO BIDCM 07/22/17 [History Last Taken 05/18/21] aspirin 81 mg tablet,delayed release 81 mg PO DAILY 07/24/18 [History Last Taken 05/18/21] buspirone 10 mg tablet 10 mg PO TID tab 04/18/21 [History Last Taken 05/18/21] clopidogrel 75 mg tablet 75 mg PO DAILY #90 tab 04/18/21 [Rx Last Taken 05/18/21] metoprolol tartrate 25 mg tablet 12.5 mg PO BID #90 tab 04/18/21 [Rx Last Taken 05/18/21] potassium chloride 10 mEq tablet,extended release 20 meq PO DAILY #180 tab 04/18/21 [Rx Last Taken 05/18/21] rosuvastatin 10 mg tablet 10 mg PO DAILY #90 tab 04/18/21 [Rx Last Taken 05/18/21] sertraline 100 mg tablet 100 mg PO DAILY 04/18/21 [History Last Taken 05/18/21] biotin 1,000 mcg PO DAILY 05/18/21 [History Last Taken 05/18/21] fenofibrate 160 mg PO DAILY 05/18/21 [History Last Taken 05/18/21] furosemide 40 mg PO DAILY 05/18/21 [History Last Taken 05/18/21] Allergy/AdvReac Type Severity Reaction Status Date / Time adhesive tape AdvReac Unknown Verified 05/18/21 12:16 morphine AdvReac Vomiting Verified 05/18/21 12:16 Wwagjth-EPW-OuW Reductase AdvReac Pain in Verified 05/18/21 12:16 Inhibitor joints [Zyjtpvs-Vxz-Wkc Reductase Inhibitor] Family History (Updated 05/18/21 @ 14:[address] Vivek Maldonado DO) Mother Hypertension Other CAD (coronary artery disease) Surgical History 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) History of coronary artery stent placement (11/17/14) Hx of appendectomy Hx of cholecystectomy Hx of hysterectomy Social History Smoking Status: Never smoker alcohol intake: never substance use type: does not use caffeine: Yes Type: carbonated beverages what type of physical activity do you participate in: none seatbelt use: always do you feel safe at home: Yes ROS ROS Narrative 12 point review of systems obtained, negative unless otherwise noted in HPI. Vital Signs Vital Signs Vital Signs: 05/18/21 12:13 05/18/21 13:30 05/18/21 13:33 Temperature 98.1 F Temperature Source Oral Pulse Rate 69 70 Respiratory Rate 20 H 16 Respiratory Effort Normal Non-Labored Respiratory Depth Normal Respiratory Pattern Normal Blood Pressure 103/73 127/65 H Blood Pressure [BP] Blood Pressure Mean 83 85 Blood Pressure Mean [BP] Blood Pressure Source Blood Pressure Source [BP] Blood Pressure Position Blood Pressure Position [BP] Blood Pressure Location Blood Pressure Location [BP] Pulse Ox 97 95 Oxygen Delivery Method Room Air Room Air Room Air 05/18/21 14:00 05/18/21 15:14 05/18/21 15:33 Temperature 98.7 F Temperature Source Oral Pulse Rate 75 70 70 Respiratory Rate 14 19 H 18 Respiratory Effort Respiratory Depth Respiratory Pattern Blood Pressure 122/56 H 131/57 H Blood Pressure [BP] 134/70 H Blood Pressure Mean 78 81 Blood Pressure Mean [BP] 91 Blood Pressure Source Monitor Blood Pressure Source [BP] Monitor Blood Pressure Position Sitting Blood Pressure Position [BP] Supine Blood Pressure Location Right Arm Blood Pressure Location [BP] Right Arm Pulse Ox 92 90 93 Oxygen Delivery Method Room Air Room Air Room Air Weight Weight: 144 lb 2.917 oz Body Mass Index (BMI) 31.1 Physical Exam Narrative General -A&Ox3, NAD, appears stated age. Vital signs stable, afebrile. Respiratory -normal work of breathing, no intercostal retractions. CV -pulses regular, brisk capillary refill ?4 limbs. Abdomen-soft, nontender, nondistended. No guarding, rigidity, rebound tenderness. Musculoskeletal/neurologic -full range of motion nontender throughout Bilateral upper extremities, right lower extremity with full sensation and strength in all dermatomes and myotomes. Skin tears noted to the left elbow. No midline cervical tenderness. Left lower extremity-no obvious deformity. Pain with logroll of the left lower extremity. Nontender throughout the left knee femoral shaft, tibial shaft and left foot/ankle. Brisk capillary refill. Sensation intact light touch L3-S1 dermatomes. DF, PF, EHL intact. DP, PT 2+. Pelvis is stable, nontender. Skin is intact without lacerations, abrasions. No ecchymosis noted. Lab / Micro Data Result Diagrams: 05/18/21 14:02 05/18/21 14:55 Labs: Laboratory Results - last 24 hr 05/18/21 14:02: WBC 8.6, RBC 3.75 L, Hgb 11.0 L, Hct 33.4 L, MCV 89.1, MCH 29.3, MCHC 32.9, RDW Std Deviation 45.9 H, RDW Coeff of Angel 14.0, Plt Count 217, MPV 9.5, Immature Gran % (Auto) 0.600, Neut % (Auto) 80.5 H, Lymph % (Auto) 11.6 L, [place] % (Auto) 6.5, Eos % (Auto) 0.7, Baso % (Auto) 0.1, Absolute Neuts (auto) 6.9, Absolute Lymphs (auto) 0.99, Nucleated RBC % 0 05/18/21 14:02: PT 14.0, INR 1.1 05/18/21 14:02: Sodium Cancelled, Potassium Cancelled, Chloride Cancelled, Carbon Dioxide Cancelled, Anion Gap Cancelled, BUN Cancelled, Creatinine Cancelled, Estim Creat Clear Calc Cancelled, Est GFR (MDRD) Af Amer Cancelled, Est GFR (MDRD) Non-Af Cancelled, BUN/Creatinine Ratio Cancelled, Glucose Cancelled, Calcium Cancelled 05/18/21 14:02: Blood Type B POSITIVE, Antibody Screen NEGATIVE 05/18/21 14:55: Sodium 138, Potassium 4.1, Chloride 104, Carbon Dioxide 29.0, Anion Gap 5, BUN 20 H, Creatinine 1.27 H, Estim Creat Clear Calc 36.48, Est GFR (MDRD) Af Amer 52 L, Est GFR (MDRD) Non-Af 43 L, BUN/Creatinine Ratio 15.7, Glucose 126 H, Calcium 9.3 05/18/21 14:55: Total Bilirubin 0.30, Direct Bilirubin 0.13, AST 29, ALT 18, Alkaline Phosphatase 44 L, Total Protein 6.7, Albumin 3.5, Globulin 3.2 05/18/21 16:16: POC Glucose 117 H Radiology Impression Brain CT 05/18/21 12:25 IMPRESSION: Chronic involutional changes of the brain. Electronically Signed: Matt Erazo MD at 14:06 EST , Chest X-Ray 05/18/21 13:30 IMPRESSION: No acute abnormality is seen. Electronically Signed: Matt Erazo MD at 14:05 EST , Hip/Pelvis X-Ray 05/18/21 13:30 IMPRESSION: There is a comminuted fracture of the intertrochanteric region of the left femur. Electronically Signed: Matt Erazo MD at 14:03 EST , Assessment & Plan Assessment/Plan (1) Closed left hip fracture: QUALIFIERS: Encounter type: initial encounter Qualified Code(s): S72.002A - Fracture of unspecified part of neck of left femur, initial encounter for closed fracture PLAN: Patient sustained a left comminuted intertrochanteric proximal femur fracture. -Closed, neurovascularly intact -Isolated injury -Recommending surgical intervention in the form of left femur cephalomedullary nailing -I discussed the procedure-its risks, benefits and alternative. Risks include but are not limited to bleeding, infection, loss of life or limb, risk of anesthesia, persistent pain or disability, need for additional surgery, nonunion, malunion, failure of orthopedic hardware, neurovascular injury, DVT or PE. Patient expressed understanding these risks and wished proceed with surgery. -Maintenance IV fluids, clear liquid diet after midnight n.p.o. at 4 hours prior to surgery -Type and screen -2 g Ancef on-call to the OR -Bedrest, heel protectors -Plan to proceed with surgery tomorrow 05/19/2021 Thank you for this consultation.
[2021-05-18 17:12] LABS: ALB/GLOB Ratio 1.1 RATIO (0.9-2.4); AST(SGOT) 31 U/L (15-37); Alanine Aminotransfer ALT/SGPT 17 U/L (13-56); Albumin, Serum 3.5 g/dL (3.2-5.0); Alkaline Phosphatase 42 U/L (45-117); Anion Gap 6 (5-15); BUN 20 mg/dL (7-18); BUN/Creat Ratio 15.7 RATIO (10-20); Calcium,Total 9.3 mg/dL (8.5-10.1); Chloride 104 mmol/L (98-107); Creatinine, Serum 1.27 mg/dL (0.55-1.02); EST Glomerular Filtration Rate 43 mL/min (>60); Est Glom Filt Rate - Afr Amer 52 mL/min (>60); Estimated Creatinine Clearance 36.48 ml/min; Globulin 3.3 g/dL (2.2-4.2); Glucose 119 mg/dL (74-106); Protein, Total 6.8 g/dL (6.4-8.2); Sodium Level 138 mmol/L (136-145)
[2021-05-18 17:14] LABS: Vitamin D,25 Hydroxy 39.6 ng/mL
[2021-05-18 19:14] LABS: Hemoglobin A1c 6.7 % (3.8-5.6)
[2021-05-18] MEDS: oxyCODONE 5 MG Tablet 10 MG PO (22:58)
[2021-05-18] MEDS: ALPRAZolam 0.25 MG Tablet PO (22:58)
[2021-05-18] MEDS: busPIRone 5 MG Tablet 10 MG PO (23:00)
[2021-05-18] MEDS: Metoprolol Tartrate 25 MG Tablet 12.5 MG PO (23:02)
[2021-05-19] VITALS (11 sets, daily range): BP systolic 88–145; BP diastolic 53–70; PULSE 68–89; RESP 14–18; TEMP 36.3–38.2; O2SAT 97–100; BMI 31.1
[2021-05-19] MEDS: 0.9% Normal Saline 1,000 ML 75 ML IV ×2 (00:07→13:21)
[2021-05-19 00:15] LABS: Bedside Glucose 124 mg/dL (74-106)
[2021-05-19] MEDS: busPIRone 5 MG Tablet 10 MG PO ×2 (05:50→21:04)
[2021-05-19] MEDS: Acetaminophen 325 MG Tablet 650 MG PO ×2 (05:50→21:08)
[2021-05-19] MEDS: oxyCODONE 5 MG Tablet 10 MG PO (05:50)
[2021-05-19] MEDS: ALPRAZolam 0.25 MG Tablet PO ×2 (05:50→21:08)
[2021-05-19 06:41] LABS: Bedside Glucose 107 mg/dL (74-106)
[2021-05-19] MEDS: Metoprolol Tartrate 25 MG Tablet 12.5 MG PO (09:53)
[2021-05-19] MEDS: Fenofibrate 145 MG Tablet PO (09:53)
[2021-05-19] MEDS: Cholecalciferol (VIT D3) 25 MCG TABLET (1,000 UNITS) 75 MCG PO (09:53)
[2021-05-19] MEDS: Senna/Docusate Sodium 1 Tablet 2 TABLET PO ×2 (09:53→21:05)
[2021-05-19] MEDS: Lisinopril 5 MG Tablet PO (09:53)
[2021-05-19] MEDS: Calcium Carb/Vitamin D 1 TABLET Tablet PO (09:53)
[2021-05-19] MEDS: Sertraline 100 MG Tablet PO (09:53)
[2021-05-19] MEDS: Furosemide 40 MG Tablet PO (09:54)
[2021-05-19] MEDS: metFORMIN HCl 1,000 MG Tablet 1000 MG PO (09:54)
[2021-05-19] MEDS: Potassium Chloride Oral Tablet 20 MEQ PO (09:54)
[2021-05-19] MEDS: Atorvastatin Calcium 20 MG Tablet PO (09:54)
--- NOTE | 2021-05-19 11:25 | CASEMGMT ---
RN ALYSA CT MANAGER CM to room to meet with patient for initial transition planning/care coordination assessment. BARBARA WATT introduced self and role at [facility]. Pt voices understanding and consents to assessment at this time. Pt resting in bed in no distress at this time. , Nikita, @ bedside. Pt is A/O at this time and answers all questions appropriately. Care providers, pharmacy, and demographics verified/updated at this time. PCP: Dr Lang Specialists: Dr Tejada-cardiology Preferred Pharmacy: [facility] Retail Insurance: [employer] [facility] Prescription Benefit: Yes Living Will/HPOA: Has both LW and HPOA, who is her , Nikita LNOK: , Nikita Living Arrangements: Lives w/her and son in one-story home w/basement w/3 steps to enter. Pt independent w/ADL's and IADL's prior to fall/fracture. independent as well and able to assist pt once she returns home. Transportation: Pt and DME: States has the following DME: glucometer. CPAP from [facility]. Pt states would like to get a walker, if able to return home. They do have a walker @ home, but it does not have wheels and she is not sure if it can be adjusted for her height. Pt would like to get one through her insurance. Pt given list of local DME companies. She chooses [facility]. Discussed option of shower chair as well. They were made aware pt's insurance does not cover for this, but informed of several locations this could be purchased at. HHC/SNF: No hx of either. Pt states she would like to return home, if possible, and would like HHC. She states she is determined to go home, if able, but would consider SNF, if needed. She is aware therapy will work with her after surgery, most likely tomorrow. Pt and state they would review a list of HHC'S and SNF's to review. Pt provided w/list of HHC providers including quality and resource use data and consistent with the patient's preferred geographic region and medical needs. PLAN: TBD by course of treatment and progress w/therapy. SNF vs Home w/HHC. If able to return home, would need a walker. Pt scheduled for surgery today. Emery CARY RN, CM
[2021-05-19 12:31] LABS: Bedside Glucose 111 mg/dL (74-106)
--- NOTE | 2021-05-19 12:40 | CASEMGMT ---
Addendum entered by Judy Miranda 05/19/21 14:02: Received tc from Aida at [facility], they can accept pt for SOC on 05/23, pending pt does well with therapy to go home. Green sheet on chart for FWW if pt goes home over w/e. Original Note: BARBARA CM in to pt room, pt lying in bed with at bedside. Pt states she has chosen [facility] for therapy post dc. Pt is aware that the referral for HHC will be made in case she should dc over the weekend, but if she requires more than HHC the plan can change. TC to Aida at [facility], referral made, awaiting acceptance.
[2021-05-19] MEDS: HYDROmorphone 0.5 MG/0.5 ML SYRINGE IV (13:21)
--- NOTE | 2021-05-19 14:11 | PN.HOSP_ITS ---
Subjective Subjective Patient was seen and examined today, she will go down today for repair of her left hip fracture. Patient appears medically stable at this time, patient denies any chest pain or shortness of breath. Objective Data Objective Data Vital Signs: Vital Signs Temp Pulse Resp BP Pulse Ox 98.7 F 70 18 138/70 H 99 05/19/21 09:49 05/19/21 09:53 05/19/21 09:49 05/19/21 09:53 05/19/21 09:49 Oxygen Flow Rate (L/min) 2 Oxygen Delivery Method Nasal Cannula Weight: 65.4 kg Body Mass Index (BMI) 31.1 Intake & Output: Intake and Output for Last 24 Hours 05/17/21 05/18/21 05/19/21 23:59 23:59 23:59 Intake Total 992.5 / 992.5 Output Total 800 / 800 1100 / 1100 Balance -800 / -800 -107.5 / -107.5 Lab / Micro Data Result Diagrams: 05/18/21 14:02 05/18/21 16:05 Labs: Laboratory Results - last 24 hr 05/18/21 14:02: WBC 8.6, RBC 3.75 L, Hgb 11.0 L, Hct 33.4 L, MCV 89.1, MCH 29.3, MCHC 32.9, RDW Std Deviation 45.9 H, RDW Coeff of Angel 14.0, Plt Count 217, MPV 9.5, Immature Gran % (Auto) 0.600, Neut % (Auto) 80.5 H, Lymph % (Auto) 11.6 L, [place] % (Auto) 6.5, Eos % (Auto) 0.7, Baso % (Auto) 0.1, Absolute Neuts (auto) 6.9, Absolute Lymphs (auto) 0.99, Nucleated RBC % 0 05/18/21 14:02: PT 14.0, INR 1.1 05/18/21 14:02: Sodium Cancelled, Potassium Cancelled, Chloride Cancelled, Carbon Dioxide Cancelled, Anion Gap Cancelled, BUN Cancelled, Creatinine Cancelled, Estim Creat Clear Calc Cancelled, Est GFR (MDRD) Af Amer Cancelled, Est GFR (MDRD) Non-Af Cancelled, BUN/Creatinine Ratio Cancelled, Glucose Cancelled, Calcium Cancelled 05/18/21 14:02: Blood Type B POSITIVE, Antibody Screen NEGATIVE 05/18/21 14:02: Hemoglobin A1c 6.7 H 05/18/21 14:55: Sodium 138, Potassium 4.1, Chloride 104, Carbon Dioxide 29.0, Anion Gap 5, BUN 20 H, Creatinine 1.27 H, Estim Creat Clear Calc 36.48, Est GFR (MDRD) Af Amer 52 L, Est GFR (MDRD) Non-Af 43 L, BUN/Creatinine Ratio 15.7, Glucose 126 H, Calcium 9.3 05/18/21 14:55: Total Bilirubin 0.30, Direct Bilirubin 0.13, AST 29, ALT 18, Alk zuhair Phosphatase 44 L, Total Protein 6.7, Albumin 3.5, Globulin 3.2 05/18/21 16:05: Vitamin D 25-Hydroxy 39.6 05/18/21 16:05: Sodium 138, Potassium 4.0, Chloride 104, Carbon Dioxide 28.0, Anion Gap 6, BUN 20 H, Creatinine 1.27 H, Estim Creat Clear Calc 36.48, Est GFR (MDRD) Af Amer 52 L, Est GFR (MDRD) Non-Af 43 L, BUN/Creatinine Ratio 15.7, Glucose 119 H, Calcium 9.3, Total Bilirubin 0.30, AST 31, ALT 17, Alkaline Phosphatase 42 L, Total Protein 6.8, Albumin 3.5, Globulin 3.3, Albumin/Globulin Ratio 1.1 05/18/21 16:16: POC Glucose 117 H 05/19/21 00:06: POC Glucose 124 H 05/19/21 06:02: POC Glucose 107 H 05/19/21 11:01: POC Glucose 111 H Micro: Microbiology 05/18/21 17:35 Nasal Secretion SARS-CoV-2 Antigen (Rapid) - Final Physical Exam Const alert, oriented x3 and no apparent distress General Appearance: cooperative, well kempt and well developed Orientation / Consciousness: awake, oriented to person, oriented to place and o riented to time HEENT normocephalic, head/scalp atraumatic and moist oral mucous membranes Eyes PERRL, EOMs intact bilaterally and conjunctivae normal Neck nuchal rigidity, supple, no JVD and thyroid normal General: trachea midline Resp normal respiratory effort, no retractions, no use of accessory muscles and clear to auscultation bilaterally Auscultation: Negative for rales, rhonchi or wheezes Cardio regular rate, regular rhythm, S1 normal heart sound, S2 normal heart sound, no murmurs, no rub and no gallops GI normal to inspection, nondistended, normoactive bowel sounds, soft to palpation, non-tender and non-distended Extremity no clubbing, cyanosis or edema Skin no rashes or lesions noted General Skin Exam: no breakdown Neuro oriented x3, CN's II-XII intact bilaterally, no focal motor deficits and no sensory deficits noted Sensorium / Orientation: awake and alert Speech: speech normal Psych affect normal Assessment & Plan Assessment/Plan (1) Closed left hip fracture: QUALIFIERS: Encounter type: initial encounter Qualified Code(s): S72.002A - Fracture of unspecified part of neck of left femur, initial encounter for closed fracture PLAN: 1. Comminuted intertrochanteric fracture of the left femur secondary to osteoporosis-patient appears stable for surgery at this time, she will undergo surgery today. #2 atherosclerotic heart disease-this appears to be stable at this time, patient remains on her current medications #3 stage IIIb chronic kidney disease-continue to monitor BMP #4 hyperlipidemia-patient is on atorvastatin #5 essential hypertension-patient is currently on lisinopril and furosemide #6 chronic anxiety-patient will remain on BuSpar at this time, she also takes Xanax #7 chronic depression-patient is on Zoloft #8 type 2 diabetes-patient will remain on Metformin, blood sugars will be char tored #9 osteoporosis-patient will be remain on vitamin D/calcium Charges/Coding Visit Charges Inpatient E&M: 76011 Subs Hosp L2
[2021-05-19] MEDS: Cefazolin 2 GM in 0.9% Normal Saline 100 ML IV (16:15)
--- NOTE | 2021-05-19 16:15 | RAD_ITS ---
INDICATION: FX EXAMINATION/TECHNIQUE: X-RAY - LEFT XR Hip Unilateral with Pelvis when performed; 1 View 17 VIEWS COMPARISON: Pelvis and left hip x-rays 05/18/2021. FINDINGS: Multiple fluoroscopic intraoperative procedures are obtained. Intramedullary nail through the proximal femur and traversing screws through the femoral neck are demonstrated. Anatomic alignment. RAD/Hip 1 view with Pelvis IMPRESSION: Intraoperative fluoroscopic x-rays for placement of left proximal femoral intramedullary nail and traversing screws in the femoral neck. Anatomic alignment. Please refer to surgical report for details. Electronically Signed: Basilio Lewis DO at 20:13 EST ,
--- NOTE | 2021-05-19 17:37 | OP.PCM_ITS ---
Report of Operation Date of Procedure: 05/19/21 Description of Surgical Findings:: Preoperative diagnosis: Left comminuted intertrochanteric proximal femur fracture Postoperative diagnosis: Left comminuted intertrochanteric proximal femur fracture Procedure: Treatment of intertrochanteric hip fracture with intramedullary nail left femur Surgeon: Hugh Box DO Anesthesia: General endotracheal Anesthesiologist: Dr. Laureano /Farzad Ortez CRNA Complications: None apparent Drains: None Estimated blood loss: 200 cc Urinary output: None recorded IV fluids: Per anesthesia record Specimens: None Surgical implants: [employer] TriGen InterTAN 10 mm x 18 cm 125 degree left, 85 mm lag screw, 80 mm compression screw, TriGen L-P screw 5 mm x 35 mm Indications: This is an 81-year-old female who sustained a ground-level mechanical fall yesterday while she was cleaning out her freezer at home. She landed on her left side. She also hit her head. CT scan of her brain demonstrated no acute process. X-rays of her left hip in the [facility] emergency department revealed a left intertrochanteric proximal femur fracture. She was admitted under the service of the hospitalist. She was optimized for surgery. I recommended surgical intervention in the form of left femur cephalomedullary nailing. The risks, benefits, alternatives to procedure reviewed with patient at length and she agreed to proceed. Informed consent obtained. Risks included but were not limited to bleeding, infection, loss of life or limb, need for additional surgery, persistent pain, need for long-term assistive device, stiffness, DVT or PE, risk of anesthesia, malunion or nonunion, nonhealing wounds. Description of procedure: Prior to the procedure, patient was brought to the preoperative holding area where patient was identified by name, medical record number and date of . I confirmed the side, site, operation to be performed with the patient. Informed consent was confirmed, All questions were answered to patient satisfaction. The operative extremity was marked. She was also seen by anesthesia staff and anesthesia consent obtained.At time of the operative procedure, pt was brought to the operative suite. General anesthesia was induced on the hospital bed and endotracheal tube placed. After adequate anesthesia and securing the tube, patient was then positioned supine on a fracture table. The operative foot was well-padded and placed in a ski boot attached to the traction unit on the fracture table. The non operative leg was well padded, extended and secured to the axial bar of the table. A well-padded perineal post was placed and the left upper extremity was brought across patient's torso and secured. A reduction maneuver was applied to the operative leg with traction, internal rotation, adduction. Fluoroscopy was used to confirm an appropriate reduction. We then prepped and draped the operative lower extremity of normal sterile orthopedic fashion. A timeout was performed with all parties in attendance in agreement of the side, site, operation to be performed. We elected to proceed. 2 g Ancef was administered prior to incision by the anesthesia staff. Fluoroscopy was used to confirm the level of the incision approximately 4 fingerbreadths proximal to the tip of the greater trochanter in line with the femoral shaft. I sharply incised the skin with a 10 blade scalpel carried an incision sharply through the subcutaneous tissue past the IT band to the level of the greater trochanter. A starting pin was utilized and under fluoroscopic guidance placed just medial to the tip of the greater trochanter in line with the femoral shaft on the lateral view. We then, on power, passed the guidepin into the intramedullary canal. A opening reamer was then placed over top of the guide pin and soft tissue protector placed. We utilized the opening reamer to establish entry into the intramedullary canal. The guide pin removed. We chose our final nail to be 10 mm x 18 cm 125 degrees on the left. I impacted the nail to an appropriate depth. The targeting guide for the lag screw and compression screw was attached to the handle of the nail. Skin was sharply incised on the lateral thigh and the targeting sleeve placed down to bone. The drill pin for the leg screw was then directed into the femoral head to a level less than 25 mm tip to apex distance on the AP and lateral projections. An appropriately sized lag screw of 85 mm was measured . We then reamed for the compression screw past the level of the fracture. A derotation bar was placed and we inserted the cannulated 85 mm lag screw over the drill pin. We again confirmed appropriate placement on fluoroscopy. The compression screw was then placed under power and tightened under with a manual auto parts delivery driver after traction removed from the left lower extremity. We used fluoroscopy to view the amount of compression across the fracture site. After maxing out the compression, we were content with our reduction and elected to proceed with interlocking screw placement. The drill sleeve was removed as well as the guidepin. We then made a lateral thigh incision for the interlocking screw through the static slot of the nail. The femur was then drilled bicortically through the isthmus and we measured 35 mm for an appropriately sized dynamic interlocking screw. The drill was then removed and we placed the 35 mm screw with good cortical fixation. Final fluoroscopic images were obtained. Wounds were copiously irrigated with normal saline solution. Deep tissues were closed with 0 Vicryl suture and subcutaneous tissue closed with 2-0 Vicryl suture. Skin was finally closed with ifrah. Sterile compression dressings were applied to the wounds. Patient was then taken out of traction entirely and removed from both traction boot and well leg baum. Patient was transferred back to his hospital bed in stable condition and extubated safely in the operative suite. Patient was then transferred to PACU in stable condition. Post Operative Plan: Weightbearing: Weightbearing as tolerated left lower extremity Antibiotics: Ancef 1 g x 3 doses postoperatively every 8 hours DVT Prophylaxis: Plan to restart home Plavix and aspirin postoperative day #1 [place]: Per primary Dressing: Maintain unless saturated X-Rays: At 3 weeks in the office upon follow-up Follow-up: With me in the office in 3 weeks
[2021-05-19 21:31] LABS: Bedside Glucose 165 mg/dL (74-106)
[2021-05-19] MEDS: Cefazolin 1 GM/50 ML BAG IV (23:50)
[2021-05-20] VITALS (8 sets, daily range): BP systolic 90–120; BP diastolic 5–70; PULSE 78–90; RESP 16; TEMP 36.8–37.6; O2SAT 94–98
[2021-05-20] MEDS: 0.9% Normal Saline 1,000 ML 75 ML IV (03:05)
[2021-05-20 05:31] LABS: Hematocrit 27.3 % (37-47); Hemoglobin 8.5 g/dL (12.0-15.0); Mean Corp Hgb Conc 31.1 g/dL (32-36); Mean Corpuscular Hgb 29.2 pg (27.0-32.0); Mean Corpuscular Volume 93.8 fL (81-99); Mean Platelet Vol. 9.8 fl (6.2-12.0); Platelet Count 211 K/mm3 (150-450); RBC Distribution Width SD 47.7 fl (35.1-43.9); Red Blood Count 2.91 M/mm3 (4.2-5.4); White Blood Count 8.6 K/mm3 (4.4-11.0)
[2021-05-20 06:04] LABS: Anion Gap 10 (5-15); BUN 28 mg/dL (7-18); BUN/Creat Ratio 12.5 RATIO (10-20); Calcium,Total 8.2 mg/dL (8.5-10.1); Chloride 103 mmol/L (98-107); Creatinine, Serum 2.24 mg/dL (0.55-1.02); EST Glomerular Filtration Rate 22 mL/min (>60); Est Glom Filt Rate - Afr Amer 27 mL/min (>60); Estimated Creatinine Clearance 20.68 ml/min; Glucose 123 mg/dL (74-106); Sodium Level 139 mmol/L (136-145)
[2021-05-20] MEDS: busPIRone 5 MG Tablet 10 MG PO ×3 (07:07→22:44)
[2021-05-20 07:16] LABS: Bedside Glucose 122 mg/dL (74-106)
[2021-05-20] MEDS: Acetaminophen 325 MG Tablet 650 MG PO (08:42)
[2021-05-20] MEDS: metFORMIN HCl 1,000 MG Tablet 1000 MG PO ×2 (08:42→16:19)
[2021-05-20] MEDS: Cefazolin 1 GM/50 ML BAG IV ×2 (08:43→15:43)
--- NOTE | 2021-05-20 09:36 | PCM.PN.ORT ---
Subjective Subjective Patient seen and examined. Reports surgical left hip pain. Denies fevers, chills, nausea vomiting, chest pain or shortness of breath. Tolerating oral intake. Has not been out of bed yet. Denies any numbness or tingling. Objective Data Objective Data Vital Signs: Vital Signs Temp Pulse Resp BP Pulse Ox 99.6 F H 90 16 120/47 L 98 05/20/21 08:39 05/20/21 08:39 05/20/21 08:39 05/20/21 08:39 05/20/21 08:39 Oxygen Flow Rate (L/min) 1 Oxygen Delivery Method Room Air Weight: 144 lb 2.917 oz Body Mass Index (BMI) 31.1 Intake & Output: Intake and Output for Last 24 Hours 05/18/21 05/19/21 05/20/21 23:59 23:59 23:59 Intake Total 1102.5 / 1102.5 955 / 955 Output Total 800 / 800 1100 / 1100 300 / 300 Balance -800 / -800 2.5 / 2.5 655 / 655 Lab / Micro Data Result Diagrams: 05/20/21 03:57 05/20/21 03:57 Labs: Laboratory Results - last 24 hr 05/19/21 11:01: POC Glucose 111 H 05/19/21 21:01: POC Glucose 165 H 05/20/21 03:57: WBC 8.6, RBC 2.91 L, Hgb 8.5 L, Hct 27.3 L, MCV 93.8 D, MCH 29.2, MCHC 31.1 L D, RDW Std Deviation 47.7 H, RDW Coeff of Angel 14.0, Plt Count 211, MPV 9.8 05/20/21 03:57: Sodium 139, Potassium 4.0, Chloride 103, Carbon Dioxide 26.0, Anion Gap 10, BUN 28 H, Creatinine 2.24 H, Estim Creat Clear Calc 20.68, Est GFR (MDRD) Af Amer 27 L, Est GFR (MDRD) Non-Af 22 L, BUN/Creatinine Ratio 12.5, Glucose 123 H, Calcium 8.2 L 05/20/21 07:05: POC Glucose 122 H Micro: Microbiology 05/18/21 17:35 Nasal Secretion SARS-CoV-2 Antigen (Rapid) - Final Radiography Diagnostic Testing: Radiology Impression Hip/Pelvis X-Ray 05/19/21 16:15 IMPRESSION: Intraoperative fluoroscopic x-rays for placement of left proximal femoral intramedullary nail and traversing screws in the femoral neck. Anatomic alignment. Please refer to surgical report for details. Electronically Signed: Basilio DO Debbie at 20:13 EST , Physical Exam Narrative General - A&Ox3, NAD. VSS/AF Left lower extremity -incisional dressings show some serosanguineous drainage. SILT Sural, Saphenous, SPN, DPN, Tibial N. distributions. DP, PT 2+. BCR. DF, PF, EHL 5/5. No calf TTP. Assessment & Plan Assessment/Plan (1) Closed left hip fracture: QUALIFIERS: Encounter type: initial encounter Qualified Code(s): S72.002A - Fracture of unspecified part of neck of left femur, initial encounter for closed fracture PLAN: POD#1 s/p left CMN - Patient doing fine this morning. Hemoglobin 8.5. Okay for dry sterile dressing changes daily as needed for drainage. - Pain control - Medicine following for medical management - PT/OT-weightbearing as tolerated left lower extremity - DVT PPX -restart home aspirin and Plavix today - Case management - D/C planning
[2021-05-20] MEDS: Potassium Chloride Oral Tablet 20 MEQ PO (10:05)
[2021-05-20] MEDS: Metoprolol Tartrate 25 MG Tablet 12.5 MG PO (10:06)
[2021-05-20] MEDS: Sertraline 100 MG Tablet PO (10:06)
[2021-05-20] MEDS: Cholecalciferol (VIT D3) 25 MCG TABLET (1,000 UNITS) 75 MCG PO (10:06)
[2021-05-20] MEDS: Calcium Carb/Vitamin D 1 TABLET Tablet PO (10:07)
[2021-05-20] MEDS: Atorvastatin Calcium 20 MG Tablet PO (10:07)
[2021-05-20] MEDS: Furosemide 40 MG Tablet PO (10:08)
[2021-05-20] MEDS: Clopidogrel Bisulfate 75 MG Tablet PO (10:08)
[2021-05-20] MEDS: Senna/Docusate Sodium 1 Tablet 2 TABLET PO (10:08)
[2021-05-20] MEDS: Fenofibrate 145 MG Tablet PO (10:09)
[2021-05-20] MEDS: Lisinopril 5 MG Tablet PO (10:20)
[2021-05-20 11:56] LABS: Bedside Glucose 136 mg/dL (74-106)
[2021-05-20] MEDS: ALPRAZolam 0.25 MG Tablet PO ×2 (13:15→22:44)
[2021-05-20] MEDS: oxyCODONE 5 MG Tablet 10 MG PO (13:25)
--- NOTE | 2021-05-20 13:54 | CASEMGMT ---
Spoke with PT and OT who states pt needed great assistance and would benefit from s/t therapy in a facility. BARBARA WATT in to pt room. Pt present. Discussed the options for s/t therapy in a facility. Initially pt was adamant that she needs to go home. Discussed safety at home and her availability of assistance. Pt is agreeable to pt going for s/t therapy. She asks if she can stay at the hospital. Made pt aware that she can go to [facility] but not stay on this floor for the therapy. She states that she may think about this. She would like to see how she does with therapy tomorrow before deciding. BARBARA WATT to follow.
[2021-05-20] MEDS: Insulin Lispro 100 UNIT/ML INSULN.PEN SC (16:20)
[2021-05-20 16:35] LABS: Bedside Glucose 177 mg/dL (74-106)
--- NOTE | 2021-05-20 16:48 | PN.HOSP_ITS ---
Subjective Subjective Patient was seen and examined today, she has the opinion she wants to go to nursing home for rehab services now, patient's hemoglobin today was 8.5, she does not complain of any shortness of breath, fever, or chills. She does complain of diarrhea which she states is due to nerves patient was placed on Imodium. Objective Data Objective Data Vital Signs: Vital Signs Temp Pulse Resp BP Pulse Ox 98.3 F 78 16 104/42 L 98 05/20/21 16:36 05/20/21 16:36 05/20/21 16:36 05/20/21 16:36 05/20/21 16:36 Oxygen Flow Rate (L/min) 1 Oxygen Delivery Method Oxyhood Weight: 65.4 kg Body Mass Index (BMI) 31.1 Intake & Output: Intake and Output for Last 24 Hours 05/18/21 05/19/21 05/20/21 23:59 23:59 23:59 Intake Total 1102.5 / 1102.5 1855 / 1855 Output Total 800 / 800 1100 / 1100 300 / 300 Balance -800 / -800 2.5 / 2.5 1555 / 1555 Lab / Micro Data Result Diagrams: 05/20/21 03:57 05/20/21 03:57 Labs: Laboratory Results - last 24 hr 05/19/21 21:01: POC Glucose 165 H 05/20/21 03:57: WBC 8.6, RBC 2.91 L, Hgb 8.5 L, Hct 27.3 L, MCV 93.8 D, MCH 29.2, MCHC 31.1 L D, RDW Std Deviation 47.7 H, RDW Coeff of Angel 14.0, Plt Count 211, MPV 9.8 05/20/21 03:57: Sodium 139, Potassium 4.0, Chloride 103, Carbon Dioxide 26.0, Anion Gap 10, BUN 28 H, Creatinine 2.24 H, Estim Creat Clear Calc 20.68, Est GFR (MDRD) Af Amer 27 L, Est GFR (MDRD) Non-Af 22 L, BUN/Creatinine Ratio 12.5, Gluc ose 123 H, Calcium 8.2 L 05/20/21 07:05: POC Glucose 122 H 05/20/21 11:49: POC Glucose 136 H 05/20/21 16:17: POC Glucose 177 H Micro: Microbiology 05/18/21 17:35 Nasal Secretion SARS-CoV-2 Antigen (Rapid) - Final Radiography Diagnostic Testing: Radiology Impression Hip/Pelvis X-Ray 05/19/21 16:15 IMPRESSION: Intraoperative fluoroscopic x-rays for placement of left proximal femoral intramedullary nail and traversing screws in the femoral neck. Anatomic alignment. Please refer to surgical report for details. Electronically Signed: Basilio Lewis, DO at 20:13 EST , Physical Exam Narrative alert, oriented x3 and no apparent distress General Appearance: cooperative, well kempt and well developed Orientation / Consciousness: awake, oriented to person, oriented to place and oriented to time HEENT normocephalic, head/scalp atraumatic and moist oral mucous membranes Eyes PERRL, EOMs intact bilaterally and conjunctivae normal Neck nuchal rigidity, supple, no JVD and thyroid normal General: trachea midline Resp normal respiratory effort, no retractions, no use of accessory muscles and clear to auscultation bilaterally Auscultation: Negative for rales, rhonchi or wheezes Cardio regular rate, regular rhythm, S1 normal heart sound, S2 normal heart sound, no murmurs, no rub and no gallops GI normal to inspection, nondistended, normoactive bowel sounds, soft to palpation, non-tender and non-distended Extremity no clubbing, cyanosis or edema Skin no rashes or lesions noted General Skin Exam: no breakdown Neuro oriented x3, CN's II-XII intact bilaterally, no focal motor deficits and no sensory deficits noted Sensorium / Orientation: awake and alert Speech: speech normal Psych affect normal Assessment & Plan Assessment/Plan (1) Closed left hip fracture: QUALIFIERS: Encounter type: initial encounter Qualified Code(s): S72.002A - Fracture of unspecified part of neck of left femur, initial encounter for closed fracture PLAN: 1. Comminuted intertrochanteric fracture of the left femur secondary to osteoporosis-postop day #1 gamma nail insertion, continue PT and OT, patient will probably need placement in a nursing home facility for short-term rehab services. #2 atherosclerotic heart disease-this appears to be stable at this time, patient remains on her current medications #3 stage IIIb chronic kidney disease-continue to monitor BMP #4 hyperlipidemia-patient is on atorvastatin #5 essential hypertension-patient is currently on lisinopril and furosemide #6 chronic anxiety-patient will remain on BuSpar at this time, she also takes Xanax #7 chronic depression-patient is on Zoloft #8 type 2 diabetes-patient will remain on Metformin, blood sugars will be monitored #9 osteoporosis-patient will be remain on vitamin D/calcium Charges/Coding Visit Charges Inpatient E&M: 63886 Subs Hosp L2
[2021-05-20 22:56] LABS: Bedside Glucose 138 mg/dL (74-106)
[2021-05-21 04:45] VITALS: BP 104/45; PULSE 82; RESP 16; TEMP 37.3; O2SAT 93
[2021-05-21 05:13] LABS: Hematocrit 22.2 % (37-47); Hemoglobin 7.4 g/dL (12.0-15.0); Mean Corp Hgb Conc 33.3 g/dL (32-36); Mean Corpuscular Hgb 29.6 pg (27.0-32.0); Mean Corpuscular Volume 88.8 fL (81-99); Mean Platelet Vol. 9.5 fl (6.2-12.0); Platelet Count 178 K/mm3 (150-450); RBC Distribution Width CV 13.8 % (11.6-14.6); RBC Distribution Width SD 45.1 fl (35.1-43.9); White Blood Count 7.7 K/mm3 (4.4-11.0)
[2021-05-21] MEDS: busPIRone 5 MG Tablet 10 MG PO ×3 (05:16→21:52)
[2021-05-21] MEDS: ALPRAZolam 0.25 MG Tablet PO ×3 (05:18→21:52)
[2021-05-21] MEDS: 0.9% Saline Lock 10 ML Syringe IV ×2 (05:18→19:50)
[2021-05-21] MEDS: HYDROmorphone 0.5 MG/0.5 ML SYRINGE IV (05:19)
[2021-05-21] MEDS: Insulin Lispro 100 UNIT/ML INSULN.PEN SC ×3 (07:31→16:39)
[2021-05-21 07:36] LABS: Bedside Glucose 166 mg/dL (74-106)
--- NOTE | 2021-05-21 07:51 | PCM.PN.ORT ---
Subjective Subjective Patient seen and examined. Denies any new complaints. Denies fevers, chills, nausea vomiting, chest pain or shortness of breath. Denies any lightheadedness or dizziness. Up with therapy to chair yesterday. Reported some left hip pain. Objective Data Objective Data Vital Signs: Vital Signs Temp Pulse Resp BP Pulse Ox 99.2 F H 82 16 104/45 L 93 05/21/21 04:45 05/21/21 04:45 05/21/21 04:45 05/21/21 04:45 05/21/21 04:45 Oxygen Flow Rate (L/min) 1 Oxygen Delivery Method Room Air Weight: 144 lb 2.917 oz Body Mass Index (BMI) 31.1 Intake & Output: Intake and Output for Last 24 Hours 05/19/21 05/20/21 05/21/21 23:59 23:59 23:59 Intake Total 1102.5 / 1102.5 3473.75 / 3473.75 Output Total 1100 / 1100 300 / 300 Balance 2.5 / 2.5 3173.75 / 3173.75 Lab / Micro Data Result Diagrams: 05/21/21 04:45 05/20/21 03:57 Labs: Laboratory Results - last 24 hr 05/20/21 11:49: POC Glucose 136 H 05/20/21 16:17: POC Glucose 177 H 05/20/21 22:40: POC Glucose 138 H 05/21/21 04:45: WBC 7.7, RBC 2.50 L, Hgb 7.4 L, Hct 22.2 L, MCV 88.8 D, MCH 29.6, MCHC 33.3 D, RDW Std Deviation 45.1 H, RDW Coeff of Angel 13.8, Plt Count 178, MPV 9.5 05/21/21 07:18: POC Glucose 166 H Micro: Microbiology 05/18/21 17:35 Nasal Secretion SARS-CoV-2 Antigen (Rapid) - Final Physical Exam Narrative General - A&Ox3, NAD. VSS/AF Left lower extremity -incisional dressings C/D/I. SILT Sural, Saphenous, SPN, DPN, Tibial N. distributions. DP, PT 2+. BCR. DF, PF, EHL 5/5. No calf TTP. Assessment & Plan Assessment/Plan (1) Closed left hip fracture: QUALIFIERS: Encounter type: initial encounter Qualified Code(s): S72.002A - Fracture of unspecified part of neck of left femur, initial encounter for closed fracture PLAN: POD#2 s/p left CMN - Patient doing fine this morning. Hemoglobin down to 7.4 this morning. Okay for dry sterile dressing changes daily as needed for drainage. - Pain control - Medicine following for medical management - PT/OT-weightbearing as tolerated left lower extremity - DVT PPX - home aspirin and Plavix, SCDs, mobilization - Case management - D/C planning -Patient stable from orthopedic standpoint for discharge to SNF. I would recommend a follow-up H&H in the next 1 to 2 days. Follow-up with me in 3 weeks from surgery. Dry sterile dressing changes daily. Okay to shower on postoperative day #4. If no drainage after postoperative day #4, okay to leave open to air.
[2021-05-21 08:45] VITALS: BP 119/47; PULSE 85; RESP 16; TEMP 37.2; O2SAT 95
[2021-05-21] MEDS: metFORMIN HCl 1,000 MG Tablet 1000 MG PO ×2 (08:46→16:39)
[2021-05-21] MEDS: Loperamide 2 MG Capsule PO (08:46)
[2021-05-21] MEDS: Cholecalciferol (VIT D3) 25 MCG TABLET (1,000 UNITS) 75 MCG PO (10:34)
[2021-05-21] MEDS: Furosemide 40 MG Tablet PO (10:35)
[2021-05-21] MEDS: Sertraline 100 MG Tablet PO (10:35)
[2021-05-21] MEDS: Potassium Chloride Oral Tablet 20 MEQ PO (10:35)
[2021-05-21] MEDS: Calcium Carb/Vitamin D 1 TABLET Tablet PO (10:35)
[2021-05-21] MEDS: Fenofibrate 145 MG Tablet PO (10:36)
[2021-05-21] MEDS: Clopidogrel Bisulfate 75 MG Tablet PO (10:36)
[2021-05-21] MEDS: Lisinopril 5 MG Tablet PO (10:36)
[2021-05-21 10:37] VITALS: PULSE 85
[2021-05-21] MEDS: Metoprolol Tartrate 25 MG Tablet 12.5 MG PO (10:37)
[2021-05-21] MEDS: Atorvastatin Calcium 20 MG Tablet PO (10:37)
--- NOTE | 2021-05-21 12:03 | PN.HOSP_ITS ---
Subjective Subjective Patient was seen and examined today, her hemoglobin today was 7.4, I will recheck her CBC tomorrow. Patient is on low-flow oxygen at this time, I will try to wean her off oxygen. Objective Data Objective Data Vital Signs: Vital Signs Temp Pulse Resp BP Pulse Ox 98.9 F 85 16 119/47 L 95 05/21/21 08:45 05/21/21 10:37 05/21/21 08:45 05/21/21 08:45 05/21/21 08:45 Oxygen Flow Rate (L/min) 2 Oxygen Delivery Method Nasal Cannula Weight: 65.4 kg Body Mass Index (BMI) 31.1 Intake & Output: Intake and Output for Last 24 Hours 05/19/21 05/20/21 05/21/21 23:59 23:59 23:59 Intake Total 1102.5 / 1102.5 3473.75 / 3473.75 Output Total 1100 / 1100 300 / 300 Balance 2.5 / 2.5 3173.75 / 3173.75 Lab / Micro Data Result Diagrams: 05/21/21 04:45 05/20/21 03:57 Labs: Laboratory Results - last 24 hr 05/20/21 16:17: POC Glucose 177 H 05/20/21 22:40: POC Glucose 138 H 05/21/21 04:45: WBC 7.7, RBC 2.50 L, Hgb 7.4 L, Hct 22.2 L, MCV 88.8 D, MCH 29.6, MCHC 33.3 D, RDW Std Deviation 45.1 H, RDW Coeff of Angel 13.8, Plt Count 178, MPV 9.5 05/21/21 07:18: POC Glucose 166 H Micro: Microbiology 05/18/21 17:35 Nasal Secretion SARS-CoV-2 Antigen (Rapid) - Final Physical Exam Const alert, oriented x3, no apparent distress and healthy appearing General Appearance: cooperative, well kempt and well developed Orientation / Consciousness: awake, oriented to person, oriented to place and oriented to time HEENT normocephalic and moist oral mucous membranes Eyes PERRL, EOMs intact bilaterally and conjunctivae normal Neck nuchal rigidity, supple, no JVD and thyroid normal General: trachea midline Resp normal respiratory effort, no retractions, no use of accessory muscles and clear to auscultation bilaterally Auscultation: Negative for rales, rhonchi or wheezes Cardio regular rate, regular rhythm, S1 normal heart sound, S2 normal heart sound, no m urmurs, no rub and no gallops GI normal to inspection, nondistended, normoactive bowel sounds, soft to palpation, non-tender and non-distended Extremity no clubbing, cyanosis or edema Skin no rashes or lesions noted General Skin Exam: no breakdown Neuro oriented x3, CN's II-XII intact bilaterally, no focal motor deficits and no sensory deficits noted Sensorium / Orientation: awake and alert Speech: speech normal Psych affect normal Assessment & Plan Assessment/Plan (1) Closed left hip fracture: QUALIFIERS: Encounter type: initial encounter Qualified Code(s): S72.002A - Fracture of unspecified part of neck of left femur, initial encounter for closed fracture PLAN: 1. Comminuted intertrochanteric fracture of the left femur secondary to osteoporosis-postop day #2 gamma nail insertion, continue PT and OT, patient will probably need placement in a intermediate facility for short-term rehab services. #2 atherosclerotic heart disease-this appears to be stable at this time, patient remains on her current medications #3 stage IIIb chronic kidney disease-continue to monitor BMP #4 hyperlipidemia-patient is on atorvastatin #5 essential hypertension-patient is currently on lisinopril and furosemide #6 chronic anxiety-patient will remain on BuSpar at this time, she also takes Xanax #7 chronic depression-patient is on Zoloft #8 type 2 diabetes-patient will remain on Metformin, blood sugars will be monitored #9 osteoporosis-patient will be remain on vitamin D/calcium #10 acute anemia-has an expected consequence of left hip fracture, CBC will be rechecked tomorrow Charges/Coding Visit Charges Inpatient E&M: 15421 Subs Hosp L2
[2021-05-21 13:16] LABS: Bedside Glucose 209 mg/dL (74-106)
[2021-05-21 13:43] VITALS: BP 117/55; PULSE 83; RESP 16; TEMP 36.4; O2SAT 98
[2021-05-21 16:41] LABS: Bedside Glucose 172 mg/dL (74-106)
[2021-05-21] MEDS: Glucerna Shake 120 ML LIQUID PO (16:41)
[2021-05-21] MEDS: Ondansetron 4 MG/2 ML Vial IV (19:50)
[2021-05-21 20:00] VITALS: BP 113/48; PULSE 85; RESP 16; TEMP 37.2; O2SAT 99
[2021-05-21 21:59] VITALS: BP 113/48; PULSE 85
[2021-05-21 22:16] LABS: Bedside Glucose 227 mg/dL (74-106)
[2021-05-22 03:00] VITALS: BP 122/55; PULSE 83; RESP 16; TEMP 36.4; O2SAT 96
[2021-05-22 05:44] LABS: Hematocrit 21.9 % (37-47); Hemoglobin 7.3 g/dL (12.0-15.0); Mean Corp Hgb Conc 33.3 g/dL (32-36); Mean Corpuscular Hgb 29.6 pg (27.0-32.0); Mean Corpuscular Volume 88.7 fL (81-99); Mean Platelet Vol. 9.4 fl (6.2-12.0); Platelet Count 246 K/mm3 (150-450); RBC Distribution Width CV 13.8 % (11.6-14.6); RBC Distribution Width SD 44.7 fl (35.1-43.9); Red Blood Count 2.47 M/mm3 (4.2-5.4); White Blood Count 8.6 K/mm3 (4.4-11.0)
[2021-05-22] MEDS: ALPRAZolam 0.25 MG Tablet PO ×2 (06:48→13:37)
[2021-05-22] MEDS: busPIRone 5 MG Tablet 10 MG PO ×2 (06:48→13:37)
[2021-05-22] MEDS: Insulin Lispro 100 UNIT/ML INSULN.PEN SC ×3 (06:49→17:07)
[2021-05-22 07:01] LABS: Bedside Glucose 163 mg/dL (74-106)
[2021-05-22] MEDS: 0.9% Saline Lock 10 ML Syringe IV (08:20)
[2021-05-22] MEDS: Calcium Carb/Vitamin D 1 TABLET Tablet PO (08:25)
[2021-05-22] MEDS: Fenofibrate 145 MG Tablet PO (08:25)
[2021-05-22] MEDS: Clopidogrel Bisulfate 75 MG Tablet PO (08:26)
[2021-05-22] MEDS: Cholecalciferol (VIT D3) 25 MCG TABLET (1,000 UNITS) 75 MCG PO (08:26)
[2021-05-22] MEDS: Sertraline 100 MG Tablet PO (08:26)
[2021-05-22] MEDS: Lisinopril 5 MG Tablet PO (08:26)
[2021-05-22] MEDS: Furosemide 40 MG Tablet PO (08:26)
[2021-05-22] MEDS: metFORMIN HCl 1,000 MG Tablet 1000 MG PO ×2 (08:26→17:09)
[2021-05-22] MEDS: Atorvastatin Calcium 20 MG Tablet PO (08:26)
[2021-05-22] MEDS: Potassium Chloride Oral Tablet 20 MEQ PO (08:26)
[2021-05-22 10:00] VITALS: BP 117/58; PULSE 81; RESP 14; TEMP 36.6; O2SAT 96
--- NOTE | 2021-05-22 10:25 | CASEMGMT ---
Social Work Note SW reviewed PT/OT, pt still max assist/dependent assist of 1-2 for transfers/bed mobility, recommendation is SNF. SW in to speak with pt. SW introduced self and role at [facility]. Pt is sleeping when this worker entered the room but did wake up when this worker entered the room. SW spoke with pt about recommendation of SNF. Patient was provided a list of SNF providers including quality and resource use data and consistent with the patient?s preferred geographic region, medical needs, and insurance network. Pt's preferred provider is [facility]. SW explained that pre-cert will be needed. Pt states understanding. SW placed a call to Cassie with TCU. TCU is able to accept pt and will submit for pre-cert. Plan: TCU pending pre-cert Chrystal Castelan MSW, QUALITY ASSURANCE CLERK
--- NOTE | 2021-05-22 10:37 | CASEMGMT ---
SEA Castillo at [facility] to cancel referral as pt has chosen TCU post hospitalization.
[2021-05-22 10:43] VITALS: PULSE 81
[2021-05-22] MEDS: Metoprolol Tartrate 25 MG Tablet 12.5 MG PO (10:43)
[2021-05-22 11:00] VITALS: O2SAT 97
[2021-05-22 11:25] LABS: Bedside Glucose 152 mg/dL (74-106)
--- NOTE | 2021-05-22 13:39 | PN.HOSP_ITS ---
Subjective Subjective Patient was seen and examined today, her hemoglobin today was 7.3, I elected to give her Venofer today. Patient will need to go to a skilled care facility for short-term rehab services when she is discharged from the hospital. Objective Data Objective Data Vital Signs: Vital Signs Temp Pulse Resp BP Pulse Ox 97.8 F 81 14 117/58 L 97 05/22/21 10:00 05/22/21 10:43 05/22/21 10:00 05/22/21 10:00 05/22/21 11:00 Oxygen Flow Rate (L/min) 2 Oxygen Delivery Method Room Air Weight: 65.4 kg Body Mass Index (BMI) 31.1 Intake & Output: Intake and Output for Last 24 Hours 05/20/21 05/21/21 05/22/21 23:59 23:59 23:59 Intake Total 3473.75 / 3473.75 1000 / 1000 270 / 270 Output Total 300 / 300 400 / 900 750 / 750 Balance 3173.75 / 3173.75 600 / 100 -480 / -480 Lab / Micro Data Result Diagrams: 05/22/21 05:08 05/20/21 03:57 Labs: Laboratory Results - last 24 hr 05/21/21 16:34: POC Glucose 172 H 05/21/21 21:53: POC Glucose 227 H 05/22/21 05:08: WBC 8.6, RBC 2.47 L, Hgb 7.3 L, Hct 21.9 L, MCV 88.7, MCH 29.6, MCHC 33.3, RDW Std Deviation 44.7 H, RDW Coeff of Angel 13.8, Plt Count 246, MPV 9.4 05/22/21 06:47: POC Glucose 163 H 05/22/21 11:04: POC Glucose 152 H Micro: Microbiology 05/18/21 17:35 Nasal Secretion SARS-CoV-2 Antigen (Rapid) - Final Radiography Diagnostic Testing: Radiology Impression Hip/Pelvis X-Ray 05/19/21 16:15 IMPRESSION: Intraoperative fluoroscopic x-rays for placement of left proximal femoral intramedullary nail and traversing screws in the femoral neck. Anatomic alignment. Please refer to surgical report for details. Electronically Signed: Basilio Lewis DO at 20:13 EST , Physical Exam Narrative Const alert, oriented x3, no apparent distress and healthy appearing General Appearance: cooperative, well kempt and well developed Orientation / Consciousness: awake, oriented to person, oriented to place and oriented to time HEENT normocephalic and moist oral mucous membranes Eyes PERRL, EOMs intact bilaterally and conjunctivae normal Neck nuchal rigidity, supple, no JVD and thyroid normal General: trachea midline Resp normal respiratory effort, no retractions, no use of accessory muscles and clear to auscultation bilaterally Auscultation: Negative for rales, rhonchi or wheezes Cardio regular rate, regular rhythm, S1 normal heart sound, S2 normal heart sound, no murmurs, no rub and no gallops GI normal to inspection, nondistended, normoactive bowel sounds, soft to palpation, non-tender and non-distended Extremity no clubbing, cyanosis or edema Skin no rashes or lesions noted General Skin Exam: no breakdown Neuro oriented x3, CN's II-XII intact bilaterally, no focal motor deficits and no sensory deficits noted Sensorium / Orientation: awake and alert Speech: speech normal Psych affect normal Const alert, oriented x3, no apparent distress and healthy appearing General Appearance: cooperative, well kempt and well developed Orientation / Consciousness: awake, oriented to person, oriented to place and oriented to time HEENT normocephalic, head/scalp atraumatic, hearing grossly normal bilaterally and moist oral mucous membranes Eyes PERRL, EOMs intact bilaterally and conjunctivae normal Neck nuchal rigidity, no lymphadenopathy, supple, no JVD and thyroid normal General: trachea midline Resp normal respiratory effort, no retractions, no use of accessory muscles and clear to auscultation bilaterally Auscultation: Negative for rales, rhonchi or wheezes Cardio regular rate, regular rhythm, S1 normal heart sound, S2 normal heart sound, no murmurs, no rub and no gallops GI normal to inspection, nondistended, normoactive bowel sounds, soft to palpation, non-tender and non-distended Extremity no clubbing, cyanosis or edema Extremity Narrative: Shortened left lower extremity compared to the right Skin no rashes or lesions noted General Skin Exam: no breakdown Neuro oriented x3, CN's II-XII intact bilaterally, no focal motor deficits and no sensory deficits noted Neuro Narrative: Sensation grossly intact Sensorium / Orientation: awake and alert Speech: speech normal Psych affect normal Assessment & Plan Assessment/Plan (1) Closed left hip fracture: QUALIFIERS: Encounter type: initial encounter Qualified Code(s): S72.002A - Fracture of unspecified part of neck of left femur, initial encounter for closed fracture PLAN: 1. Comminuted intertrochanteric fracture of the left femur secondary to osteoporosis-postop day #3 gamma nail insertion, continue PT and OT, patient will probably need placement in a long term facility for short-term rehab services. #2 atherosclerotic heart disease-this appears to be stable at this time, patient remains on her current medications #3 stage IIIb chronic kidney disease-continue to monitor BMP #4 hyperlipidemia-patient is on atorvastatin #5 essential hypertension-patient is currently on lisinopril and furosemide #6 chronic anxiety-patient will remain on BuSpar at this time, she also takes Xanax #7 chronic depression-patient is on Zoloft #8 type 2 diabetes-patient will remain on Metformin, blood sugars will be monitored #9 osteoporosis-patient will be remain on vitamin D/calcium #10 acute anemia-has an expected consequence of left hip fracture, CBC will be rechecked tomorrow, patient received Kody for today, I will hold off transf using the patient for now Charges/Coding Visit Charges Inpatient E&M: 18161 Subs Hosp L2
[2021-05-22] MEDS: oxyCODONE 5 MG Tablet PO (13:45)
[2021-05-22] MEDS: Acetaminophen 325 MG Tablet 650 MG PO (13:45)
--- NOTE | 2021-05-22 14:45 | CHAPLAIN ---
Type of Pastoral Visit _x__ Initial Visit ___ Follow-up Visit ___ On-call Visit ___ General Patient Visit ___ Spiritual Assessment ___ Family Conference ___ Bereavement ___ Rapid Response ___ Code Blue ___ Other (describe below) Pastoral Care Referral From _x__ Patient ___ Family ___ Nurse ___ Physician ___ Recruiting Scheduler ___ Nail Technician ___ Other (describe below) Sacrament/Intervention _x__ Active listening ___ Anointing ___ Bahai ___ Bereavement ___ Communion ___ Charu exploration ___ ___ Life review _x__ Prayer ___ Reconciliation ___ Sacrament of Sick _x__ Supportive presence ___ Wedding ___ Other (describe below) Pastoral Comments spouse is at the bedside; pt is in bed and alert; pt explains her fall and states that she just wants to be at home; pt will be doing inpatient therapy and discussion about how to have safety and healing; pt has good family support and a local jewish that is helpful; prayer and presence welcomed
[2021-05-22 16:00] VITALS: BP 117/43; PULSE 81; RESP 14; TEMP 37.1; O2SAT 95
--- NOTE | 2021-05-22 16:12 | CASEMGMT ---
Social Work Note MERI received call from Cassie with TCU stating pre-cert has been obtained. Pt can discharge to TCU today. MERI updated physician. Plan: TCU Chrystal Castelan MSW, NURSE CASE MANAGEMENT
--- NOTE | 2021-05-22 16:30 | CASEMGMT ---
Social Work Note MERI received call from Cassie with TCU stating pre-cert has been obtained, pt can discharge to TCU today. MEIR updated physician. SW in to speak with pt. SW updated pt that pre-cert for TCU has been obtained. MERI asked pt if this worker could call her Nikita to update and pt gave this worker permission to call Nikita. MERI placed a call to pt's Nikita and updated him on acceptance and approval to TCU. Nikita states he would like to be called if pt moves to TCU today. MERI placed Green sheet on the chart. MERI updated RN, excelsior machine feeder and Salesforce Administrator that pre-cert has been obtained for TCU and pt can discharge to TCU today. MERI updated secretary of police that pt's Nikita would like to be called if pt discharges to TCU today. Plan: TCU today if medically cleared Chrystal Castelan RETAIL LEADER, DRIED YEAST SUPERVISOR
[2021-05-22] MEDS: Glucerna Shake 120 ML LIQUID PO (17:10)
[2021-05-22 17:16] LABS: Bedside Glucose 175 mg/dL (74-106)
--- NOTE | 2021-05-22 17:52 | TREXTCAR_ITS ---
Diet 05/20/21 09:48 ADA [Diet: Consistent Carb - Calorie Controlled] Food consistency:: Regular Liquid Consistency:: Regular/Thin Dietary Modifications:: No Added Salt Is pt able to select menu?: Yes How many daily calories?: 1500 calorie Routine Orders/Code Status Routine Lab Work: CBC (on 05/25/21) and - (Fingerstick blood sugars fasting and 4 PM daily, coverage with Humalog subcu: 200-250: 5 units, 251-300: 8 units, 301- 350: 12 units) Code Status: Full Code Wound(s) Left elbow area: Wound Type: Skin Tear LEFT HIP: Wound Type: Surgical Incision Therapies Weight Bearing: Weight bearing as tolerated Physical Therapy: Eval and Treat Occupational Therapy: Eval and Treat Problem/Diagnosis (1) Closed left hip fracture: Status: Acute Comment: left intertrochanteric (2) Atherosclerotic heart disease of [place] coronary artery without angina pectoris: Status: Chronic (3) Essential (primary) hypertension: Status: Chronic (4) HLD (hyperlipidemia): Status: Chronic (5) Blood loss anemia: Status: Acute Comment: due to left hip fracture (6) Iron deficiency anemia: Status: Chronic Allergies/Procedures Done in Hospital Allergies adhesive tape Adverse Reaction (Verified 05/18/21 12:16) Unknown morphine Adverse Reaction (Verified 05/18/21 12:16) Vomiting Gkjkeis-RAS-YfC Reductase Inhibitor [Puyngoc-Zmt-Boh Reductase Inhibitor] Adverse Reaction (Verified 05/18/21 12:16) Pain in joints Procedures: - (intramedullary nail left femur 05/19/21) Type of Care/Length of Stay Estimated LOS: Convalescent Care Less Than 30 days Type of Care Needed: Skilled Rehab Potential: Good Prognosis: Good Additional Orders/Day of Discharge H&P will serve as current which was dated: 05/18/21 Day of Discharge: 05/22/21 Dietary and Speech Recommendations Dietitian Recommendations/Changes: Will change diet to 1500 edita Consistent CHO and No Added Salt d/t pmhx Discharge Plan Admission Admit Date/Time: 05/18/21 14:27 Primary Reason for Your Visit: left hip fracture Attending Provider: Kash Singleton Primary Care Provider: Michele Lang Consulting Providers: Hugh Box Instructions Additional Instructions / Restrictions: L Hip: Dry sterile dressing changes daily. Okay to shower on postoperative day #4. If no drainage after postoperative day #4, okay to leave open to air. Discharge Orders/Prescriptions Prescriptions: New furosemide 40 mg Tablet 40 mg PO DAILY Qty: 0 RF: 0 loperamide 2 mg Capsule 2 mg PO Q6H PRN PRN (Reason: Diarrhea) Qty: 0 RF: 0 sennosides-docusate sodium [Stool Softener-Stimulant Laxat] 8.6-50 mg Tablet 2 tab PO BID Qty: 0 RF: 0 alprazolam 0.25 mg Tablet 0.25 mg PO TID Qty: 9 RF: 0 lisinopril 5 mg Tablet 5 mg PO DAILY Qty: 0 RF: 0 oxycodone 5 mg Tablet 5 mg PO Q4H PRN PRN (Reason: Pain Score 4-10) 7 Days Qty: 15 RF: 0 Continued calcium carbonate-vitamin D3 [Calcium 600 + D(3)] 600 mg(1,500mg) -200 unit tablet 1 tab PO QDAY RF: 0 aspirin [Adult Aspirin Regimen] 81 mg tablet,delayed release (DR/EC) 81 mg PO DAILY RF: 0 sertraline [Zoloft] 100 mg tablet 100 mg PO DAILY RF: 0 buspirone 10 mg tablet 10 mg PO TID RF: 0 clopidogrel 75 mg tablet 75 mg PO DAILY Qty: 90 RF: 3 metoprolol tartrate 25 mg tablet 12.5 mg PO BID Qty: 90 RF: 3 potassium chloride 10 mEq tablet extended release 20 meq PO DAILY Qty: 180 RF: 3 rosuvastatin [Crestor] 10 mg tablet 10 mg PO DAILY Qty: 90 RF: 3 metformin 500 mg tablet 1,000 mg PO BIDCM RF: 0 fenofibrate 160 mg tablet 160 mg PO DAILY RF: 0 furosemide 40 mg tablet 40 mg PO DAILY RF: 0 Discontinued alprazolam 0.25 mg tablet 0.25 mg PO TID RF: 0 biotin 1,000 mcg Tablet,Chewable 1,000 mcg PO DAILY RF: 0 Referrals / Follow Up: Michele Lang MD [Primary Care Provider] - Hugh Box DO [STAFF PHYSICIAN] - 06/09/21 Disposition Disposition (needs filled in before D/C Order can be placed): Residential Facility
--- NOTE | 2021-05-22 18:38 | PCM.DC.SUM ---
Providers Date of Admission: 05/18/21 Date of Discharge: 05/22/21 Primary Care Physician: Dr. Michele Lang MD Consultations 05/18/21 15:15 Consult: Orthopedics Routine Consulting Provider: Hugh Box Reason for Consult: left hip fxr EMERGENT Consult: No MD Notified: Yes Date Notified: 05/18/21 Time Notified: 14:34 Method of Notification: Text Reason For Visit: LEFT HIP FXR Diagnosis Discharge Diagnosis (1) Closed left hip fracture: Status: Acute Code(s): S72.002A - Fracture of unspecified part of neck of left femur, initial encounter for closed fracture Qualifiers: Encounter type: initial encounter Qualified Code(s): S72.002A - Fracture of unspecified part of neck of left femur, initial encounter for closed fracture (2) Atherosclerotic heart disease of [place] coronary artery without angina pectoris: Status: Chronic Code(s): I25.10 - Atherosclerotic heart disease of [place] coronary artery without angina pectoris (3) Essential (primary) hypertension: Status: Chronic Code(s): I10 - Essential (primary) hypertension (4) HLD (hyperlipidemia): Status: Chronic Code(s): E78.5 - Hyperlipidemia, unspecified Qualifiers: Hyperlipidemia type: pure hypercholesterolemia Qualified Code(s): E78.00 - Pure hypercholesterolemia, unspecified; E78.0 - Pure hypercholesterolemia (5) Blood loss anemia: Status: Acute Code(s): D50.0 - Iron deficiency anemia secondary to blood loss (chronic) (6) Iron deficiency anemia: Status: Chronic Code(s): D50.9 - Iron deficiency anemia, unspecified Plan: Final diagnosis: #1 comminuted intertrochanteric fracture lower femur secondary to osteoporosis #2 atherosclerotic heart disease #3 stage IIIb chronic kidney disease #4 hyperlipidemia #5 essential hypertension #6 chronic anxiety disorder #7 chronic depression #8 type 2 diabetes #9 osteoporosis #10 acute anemia as an expected consequence of left hip fracture #11 iron deficiency anemia Medications at Discharge Home Medications calcium carbonate 600 mg-vitamin D3 5 mcg (200 unit) tablet 1 tab PO QDAY 07/22/17 metformin 500 mg tablet 1,000 mg PO BIDCM 07/22/17 aspirin 81 mg tablet,delayed release 81 mg PO DAILY 07/24/18 buspirone 10 mg tablet 10 mg PO TID tab 04/18/21 clopidogrel 75 mg tablet 75 mg PO DAILY #90 tab 04/18/21 metoprolol tartrate 25 mg tablet 12.5 mg PO BID #90 tab 04/18/21 potassium chloride 10 mEq tablet,extended release 20 meq PO DAILY #180 tab 04/18/21 rosuvastatin 10 mg tablet 10 mg PO DAILY #90 tab 04/18/21 sertraline 100 mg tablet 100 mg PO DAILY 04/18/21 fenofibrate 160 mg PO DAILY 05/18/21 furosemide 40 mg PO DAILY 05/18/21 alprazolam 0.25 mg PO TID #9 tab 05/22/21 ferrous sulfate 325 mg PO BID #1 tab 05/22/21 furosemide 40 mg PO DAILY #0 tab 05/22/21 lisinopril 5 mg PO DAILY #0 tab 05/22/21 loperamide 2 mg PO Q6H PRN PRN #0 cap 05/22/21 oxycodone 5 mg PO Q4H PRN PRN 7 Days #15 tab 05/22/21 sennosides-docusate sodium [Stool Softener-Stimulant Laxat] 2 tab PO BID #0 tab 05/22/21 Hospital Course Operations - (Insertion of intramedullary nail left femur 05/19/2021) Procedures None Summary of Care Provided Minutes Spent on Discharge: 32 Hospital Course: This 81-year-old white female was seen in the emergency room at [facility] after sustaining a fall at home and being unable to ambulate due to left hip pain. Patient stated that she was cleaning her refrigerator and felt dizzy and fell backwards landing on her left hip and hitting her head. Patient denied any loss of consciousness, work-up in the emergency room revealed a comminuted fracture of the intertrochanteric region of the left femur. CT of the brain was negative for any abnormalities. Patient was admitted to [place] [address], she was seen in consultation by orthopedic surgery who inserted an intramedullary nail into the left femur for stabilization of the fracture. Patient did well postop, she had an anemia, this was felt to be secondary to expected blood loss her left hip fracture, she did not require blood transfusion and she was given an infusion of Venofer. PT and OT saw the patient and felt she would benefit from inpatient rehab services, approval was obtained for short-term rehab services at [facility]. On 05/22/2021, patient was seen and examined: On examination she appeared in good health and spirits, she does not appear to be in any distress. Vital signs as documented. Skin warm and dry and without overt rashes. Neck without JVD, thyroid appears normal, trachea is midline, neck is supple. Lungs clear, normal air movement was noted. Heart exam notable for regular rhythm, normal sounds and absence of murmurs, rubs or gallops. Abdomen unremarkable and without evidence of organomegaly, masses, or abdominal aortic enlargement, bowel sounds are present in all 4 quadrants, no abdominal tenderness was noted. Extremities nonedematous, no cyanosis was noted, no clubbing was noted. Neuro: Cranial nerves II through XII are grossly intact, no focal motor deficits were noted, sensation to light touch and pinprick is intact, motor exam 5/5 throughout. Psych: Patient is alert and oriented x3, she does not appear anxious or depressed, she does not appear agitated. Patient appears stable for discharge to TCU for inpatient rehab services on 05/22/2021 Weight / BMI Weight Weight: 65.4 kg Body Mass Index (BMI) 31.1 ABG / Lab / Microbiology Data Result Diagrams: 05/22/21 05:08 05/20/21 03:57 Laboratory: Laboratory Results - last 24 hr 05/21/21 21:53: POC Glucose 227 H 05/22/21 05:08: WBC 8.6, RBC 2.47 L, Hgb 7.3 L, Hct 21.9 L, MCV 88.7, MCH 29.6, MCHC 33.3, RDW Std Deviation 44.7 H, RDW Coeff of Angel 13.8, Plt Count 246, MPV 9.4 05/22/21 06:47: POC Glucose 163 H 05/22/21 11:04: POC Glucose 152 H 05/22/21 17:06: POC Glucose 175 H Microbiology: Microbiology 05/18/21 17:35 Nasal Secretion SARS-CoV-2 Antigen (Rapid) - Final Radiography Diagnostic Testing: Radiology Impression Hip/Pelvis X-Ray 05/19/21 16:15 IMPRESSION: Intraoperative fluoroscopic x-rays for placement of left proximal femoral intramedullary nail and traversing screws in the femoral neck. Anatomic alignment. Please refer to surgical report for details. Electronically Signed: Basilio Lewis at 20:13 EST , Meaningful Use Info Meaningful Use Diagnoses (Choose all that apply): None applicable Discharge Plan Admission Admit Date/Time: 05/18/21 14:27 Primary Reason for Your Visit: left hip fracture Attending Provider: Kash Singleton Primary Care Provider: Michele Lang Consulting Providers: Hugh Box Instructions Additional Instructions / Restrictions: L Hip: Dry sterile dressing changes daily. Okay to shower on postoperative day #4. If no drainage after postoperative day #4, okay to leave open to air. Discharge Orders/Prescriptions Prescriptions: New furosemide 40 mg Tablet 40 mg PO DAILY Qty: 0 RF: 0 loperamide 2 mg Capsule 2 mg PO Q6H PRN PRN (Reason: Diarrhea) Qty: 0 RF: 0 sennosides-docusate sodium [Stool Softener-Stimulant Laxat] 8.6-50 mg Tablet 2 tab PO BID Qty: 0 RF: 0 alprazolam 0.25 mg Tablet 0.25 mg PO TID Qty: 9 RF: 0 lisinopril 5 mg Tablet 5 mg PO DAILY Qty: 0 RF: 0 oxycodone 5 mg Tablet 5 mg PO Q4H PRN PRN (Reason: Pain Score 4-10) 7 Days Qty: 15 RF: 0 ferrous sulfate 325 mg (65 mg iron) tablet 325 mg PO BID Qty: 1 RF: 0 Continued calcium carbonate-vitamin D3 [Calcium 600 + D(3)] 600 mg(1,500mg) -200 unit tablet 1 tab PO QDAY RF: 0 aspirin [Adult Aspirin Regimen] 81 mg tablet,delayed release (DR/EC) 81 mg PO DAILY RF: 0 sertraline [Zoloft] 100 mg tablet 100 mg PO DAILY RF: 0 buspirone 10 mg tablet 10 mg PO TID RF: 0 clopidogrel 75 mg tablet 75 mg PO DAILY Qty: 90 RF: 3 metoprolol tartrate 25 mg tablet 12.5 mg PO BID Qty: 90 RF: 3 potassium chloride 10 mEq tablet extended release 20 meq PO DAILY Qty: 180 RF: 3 rosuvastatin [Crestor] 10 mg tablet 10 mg PO DAILY Qty: 90 RF: 3 metformin 500 mg tablet 1,000 mg PO BIDCM RF: 0 fenofibrate 160 mg tablet 160 mg PO DAILY RF: 0 furosemide 40 mg tablet 40 mg PO DAILY RF: 0 Discontinued alprazolam 0.25 mg tablet 0.25 mg PO TID RF: 0 biotin 1,000 mcg Tablet,Chewable 1,000 mcg PO DAILY RF: 0 Referrals / Follow Up: Michele Lang MD [Primary Care Provider] - Hugh Box DO [STAFF PHYSICIAN] - 06/09/21 Disposition Disposition (needs filled in before D/C Order can be placed): [facility] Charges/Coding Visit Charges Inpatient E&M: 21234 Disch Hosp
== END 2021-05-22 20:00 | disposition skilled nursing facility (03) | DRG 482 ==
LOC: ED 14:28 → MS3 15:04
PROVIDERS: Anesthesiology; Student in an Organized Health Care Education/Training Program; Emergency Provider Physician Assistant; PCP Family Medicine; Visit Provider Internal Medicine
PROC: 0QS736Z Reposition Left Upper Femur with Intramedullary Internal Fixation Device, Percutaneous Approach (ICD-10-PCS; CPT 27245; principal; 2021-05-19 15:00)
DX: M80.052A Age-related osteoporosis with current pathological fracture, left femur, initial encounter for fracture (principal); S09.90XA Unspecified injury of head, initial encounter; E11.22 Type 2 diabetes mellitus with diabetic chronic kidney disease; D50.0 Iron deficiency anemia secondary to blood loss (chronic); E78.5 Hyperlipidemia, unspecified; E66.9 Obesity, unspecified; N18.32 Chronic kidney disease, stage 3b; I25.10 Atherosclerotic heart disease of native coronary artery without angina pectoris; I12.9 Hypertensive chronic kidney disease with stage 1 through stage 4 chronic kidney disease, or unspecified chronic kidney disease; F41.9 Anxiety disorder, unspecified; G47.33 Obstructive sleep apnea (adult) (pediatric); I45.10 Unspecified right bundle-branch block; Z79.84 Long term (current) use of oral hypoglycemic drugs; F32.A Depression, unspecified; Z79.02 Long term (current) use of antithrombotics/antiplatelets; Z79.82 Long term (current) use of aspirin; Z79.899 Other long term (current) drug therapy; Z91.81 History of falling; Z68.31 Body mass index [BMI] 31.0-31.9, adult; Z95.1 Presence of aortocoronary bypass graft
CPT/HCPCS: 36415; 70450; 71045; 73501; 73502; 76000; 78452; 80048; 80053; 80076; 82306; 82962; 83036; 85025; 85027; 85610; 86850; 86900; 86901; 87426; 93005; 93017; 97110; 97163; 97166; 97530; 97535; 99284; A9500; C1713; J7030; J7050; A4216; J2405; J2785; J2916

== ENCOUNTER 2021-05-22 20:10 | Inpatient (IN) | payer MEDICARE, SELFPAY ==
[2021-05-22 20:30] VITALS: BP 92/59; PULSE 83; RESP 20; O2SAT 92
--- NOTE | 2021-05-22 21:03 | NURSING ---
Dr. Hartley notified of patient admit to unit, also notified of duplicate Lasix order. Per Dr. Hartley, Lasix to be ordered 40mg once daily only.
--- NOTE | 2021-05-22 21:51 | HP.PCM_ITS ---
HPI - General General Date of Admission: 05/22/21 HPI Narrative 05/17/2021 Pharmacologic cardiac stress test normal. 05/18/2021 TAMICA REBOLLEDO, is a 81 Female who presents to [facility] Emergency Department with fall. Fall, left hip pain, left hip deformity. Kneeling, stood up, lost balance, fell down. CT brain negative. Xray showed left hip fracture. 05/18/2021 Admit to Hospital. Prepare for surgery. 05/19/2021 Medically stable. 05/19/2021 Dr. Box performed left hip intramedullary nail fixation. 05/20/2021 Patient would like SNF for rehabilitation. Hemoglobin 8.5. 05/21/2021 Hemoglobin 7.4, low flow oxygen, wean as tolerated. 05/22/2021 Admit to TCU with debility, here for rehabilitation, strengthening, prior to discharge home with . [facility] Medical History Atherosclerotic heart disease of [place] coronary artery without angina pectoris CPAP (continuous positive airway pressure) dependence Diabetes mellitus Essential (primary) hypertension Fracture of right wrist with routine healing GERD (gastroesophageal reflux disease) HLD (hyperlipidemia) Obesity KATTY (obstructive sleep apnea) Pancreatitis Right bundle branch block (RBBB) Sleep apnea Home Medications calcium carbonate 600 mg-vitamin D3 5 mcg (200 unit) tablet 1 tab PO QDAY 07/22/17 [History Last Taken 05/18/21] metformin 500 mg tablet 1,000 mg PO BIDCM 07/22/17 [History Last Taken 05/18/21] aspirin 81 mg tablet,delayed release 81 mg PO DAILY 07/24/18 [History Last Taken 05/18/21] buspirone 10 mg tablet 10 mg PO TID tab 04/18/21 [History Last Taken 05/18/21] sertraline 100 mg tablet 100 mg PO DAILY 04/18/21 [History Last Taken 05/18/21] fenofibrate 160 mg PO DAILY 05/18/21 [History Last Taken 05/18/21] furosemide 40 mg PO DAILY 05/18/21 [History Last Taken 05/18/21] alprazolam 0.25 mg PO TID 05/22/21 [History Last Taken Unknown] clopidogrel 75 mg PO DAILY 05/22/21 [History Last Taken Unknown] ferrous sulfate 325 mg PO BID 05/22/21 [History Last Taken Unknown] furosemide 40 mg PO DAILY 05/22/21 [History Last Taken Unknown] lisinopril 5 mg PO DAILY 05/22/21 [History Last Taken Unknown] loperamide 2 mg PO Q6H PRN PRN #0 cap 05/22/21 [Rx Last Taken Unknown] metoprolol tartrate 12.5 mg PO BID 05/22/21 [History Last Taken Unknown] oxycodone 5 mg PO Q4H PRN PRN 7 Days #15 tab 05/22/21 [Rx Last Taken Unknown] potassium chloride 20 meq PO DAILY 05/22/21 [History Last Taken Unknown] rosuvastatin [Crestor] 10 mg PO DAILY 05/22/21 [History Last Taken Unknown] sennosides-docusate sodium [Stool Softener-Stimulant Laxat] 2 tab PO BID 05/22/21 [History Last Taken Unknown] Allergy/AdvReac Type Severity Reaction Status Date / Time adhesive tape AdvReac Unknown Verified 05/18/21 12:16 morphine AdvReac Vomiting Verified 05/18/21 12:16 Sdtiude-BLT-ExU Reductase AdvReac Pain in Verified 05/18/21 12:16 Inhibitor joints [Zdkopkr-Xit-Jmn Reductase Inhibitor] Family History Mother Hypertension Other CAD (coronary artery disease) Surgical History 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) History of coronary artery stent placement (11/17/14) Hx of appendectomy Hx of cholecystectomy Hx of hysterectomy Status post cardiac surgery Social History (Updated 05/22/21 @ 21:[address] Shaun Hartley MD) household members: spouse Smoking Status: Never smoker alcohol intake: never substance use type: does not use caffeine: Yes Type: carbonated beverages what type of physical activity do you participate in: none seatbelt use: always do you feel safe at home: Yes ROS Constitutional Constitutional: Denies chills, fever(s) or weight gain ENT HEENT: Denies headache(s), nasal congestion or nasal discharge Cardiovascular Cardiovascular: Denies chest pain or palpitations Respiratory/Chest Respiratory/Chest: Denies cough, excessive phlegm production or shortness of breath with exertion Gastrointestinal Gastrointestinal: Denies abdominal pain, nausea or vomiting Genitourinary Genitourinary: Denies dysuria Musculoskeletal Musculoskeletal: Denies joint pain or joint swelling Integumentary Integumentary: Denies rash or wounds Neurologic Neurologic: Denies focal weakness, numbness or tingling Psychiatric Psychiatric: Denies anxiety, auditory hallucinations, depression, homicidal ideation or suicidal ideation Physical Exam Const alert and oriented x3 General Appearance: cooperative HEENT normocephalic Eyes PERRL and EOMs intact bilaterally Neck supple, no JVD and no carotid bruits Resp normal respiratory effort, normal air movement and clear to auscultation bilaterally Cardio regular rate and regular rhythm GI normal to inspection, nondistended, normoactive bowel sounds, non-tender and non-distended Extremity normal capillary refill General Extremity: Negative for edema Skin no rashes or lesions noted General Skin Exam: no breakdown Psych affect normal Appearance: appropriate Results Lab / Micro Data Result Diagrams: 05/23/21 05:25 05/23/21 05:25 Assessment & Plan Assessment/Plan (1) Debility: (2) Fall: (3) Closed left hip fracture: QUALIFIERS: Encounter type: initial encounter Qualified Code(s): S72.002A - Fracture of unspecified part of neck of left femur, initial encounter for closed fracture (4) Iron deficiency anemia: (5) Blood loss anemia: (6) Diabetes mellitus: (7) Coronary artery disease: (8) Hypertension: (9) Hyperlipidemia: (10) Gastroesophageal reflux disease: (11) Sleep apnea: (12) Pancreatitis: (13) Right bundle branch block: (14) Anxiety: (15) Hypokalemia: (16) Depression: PLAN: 81 year old female with below past medical history hospitalized for left hip fracture, underwent left hip intramedullary nail fixation 05/19/[address] Box, admitted to TCU with debility, here for rehabilitation, strengthening, prior to discharge home with . * Debility - PT/OT. * Pain - Tylenol 1000mg q6h prn pain (1-3), Tramadol 50mg q6h prn pain (4-5), Oxycodone 5mg q4h prn pain (6-10). * Bowel - Miralax 17gm daily, Senna/colace 2 tablets bid, Dulcolax 10mg daily prn, Loperamide 2mg q6h prn. * Adult immunization - Administer prevnar 20, fluzone, covid19 vaccine as appropriate. * DVT prophylaxis - Hold, anemia, on dual antiplatelet therapy. 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 * Coronary artery disease - Metoprolol 12.5mg bid, Lisinopril 5mg daily, Plavix 75mg daily, Aspirin 81mg daily. * Hyperlipidemia - Atorvastatin 20mg qhs, Fenofibrate 160mg daily. * Calcium deficiency - Calcium D 1 tablet daily. * Iron deficiency anemia - Ferrous sulfate 325mg bidcm, transfuse if hemoglobin < 7.0. * Edema - Lasix 40mg daily. * Diabetes Mellitus II - Metformin 1000mg bid. * Hypokalemia - KCL 20meq daily. * Depression - Sertraline 100mg daily, stable chronic alf use, GDR not recommended. * Postoperative anemia - Hemoglobin 6.8, transfuse 2 units PRBC.
--- NOTE | 2021-05-22 21:56 | NURSING ---
Pt. presents as A&Ox3 and requests code status to be Full-Code
[2021-05-22] MEDS: busPIRone 5 MG Tablet 10 MG PO (22:00)
[2021-05-22] MEDS: ALPRAZolam 0.25 MG Tablet PO (22:00)
[2021-05-22] MEDS: Atorvastatin Calcium 20 MG Tablet PO (22:04)
[2021-05-22] MEDS: traMADol 50 MG Tablet PO (22:29)
--- NOTE | 2021-05-22 22:30 | NURSING ---
Sp02 observed at 88% on RA, O2 applied per policy. SPo2 @ 94% on 2LPM
[2021-05-22 23:00] VITALS: PULSE 84; RESP 16; O2SAT 94
[2021-05-23 05:44] LABS: Absolute Lymphocyte Count 1.36 X10^3/uL (0.83-4.51); Basophil# 0.01 X10^3/uL; Basophil% 0.1 % (0-1); Eosinophil# 0.23 X10^3/uL; Eosinophils% 2.6 % (0-5); Hemoglobin 6.8 g/dL (12.0-15.0); Lymphocyte # 1.36 X10^3/ul (0.83-4.51); Lymphocyte % 15.3 % (19-41); Mean Corp Hgb Conc 32.4 g/dL (32-36); Mean Corpuscular Hgb 28.6 pg (27.0-32.0); Mean Corpuscular Volume 88.2 fL (81-99); Monocyte# 1.25 X10^3/uL; Monocyte% 14.1 % (0-10); NRBC Flagged by Analyzer 0.2 % (0-5); Neutrophil # 5.96 X10^3/uL (2.7-7.7); Neutrophil % 67.1 % (47-70); Platelet Count 263 K/mm3 (150-450); RBC Distribution Width CV 14.4 % (11.6-14.6); RBC Distribution Width SD 46.3 fl (35.1-43.9); Red Blood Count 2.38 M/mm3 (4.2-5.4); White Blood Count 8.9 K/mm3 (4.4-11.0)
[2021-05-23 05:59] LABS: Anion Gap 7 (5-15); BUN 68 mg/dL (7-18); BUN/Creat Ratio 31.6 RATIO (10-20); Calcium,Total 8.3 mg/dL (8.5-10.1); Chloride 101 mmol/L (98-107); Creatinine, Serum 2.15 mg/dL (0.55-1.02); EST Glomerular Filtration Rate 23 mL/min (>60); Est Glom Filt Rate - Afr Amer 28 mL/min (>60); Estimated Creatinine Clearance 22.43 ml/min; Glucose 120 mg/dL (74-106); Potassium 5.1 mmol/L (3.5-5.1); Sodium Level 134 mmol/L (136-145)
[2021-05-23 06:00] LABS: Bedside Glucose 122 mg/dL (74-106)
[2021-05-23 06:06] VITALS: BP 97/43; PULSE 84
[2021-05-23] MEDS: traMADol 50 MG Tablet PO ×2 (06:19→13:14)
[2021-05-23] MEDS: Nystatin Powder 15gm Bottle 1 APPLIC TOPICAL ×2 (06:19→17:41)
[2021-05-23] MEDS: Sertraline 100 MG Tablet PO (06:20)
[2021-05-23] MEDS: busPIRone 5 MG Tablet 10 MG PO ×3 (06:20→21:57)
[2021-05-23] MEDS: Furosemide 40 MG Tablet PO (06:20)
[2021-05-23] MEDS: Clopidogrel Bisulfate 75 MG Tablet PO (06:20)
[2021-05-23] MEDS: Senna/Docusate Sodium 1 Tablet 2 TABLET PO (06:20)
[2021-05-23] MEDS: Polyethylene Glycol 3350 17 GM PACKET PO (06:23)
--- NOTE | 2021-05-23 06:59 | NURSING ---
Addendum entered by Mak Suggs 05/23/21 07:28: Written communication also left for Dr. Hartley regarding pharmacy request for fenofibrate clarification. Original Note: Written communication left for regarding increased BUN and low BP and poor fluid intake
[2021-05-23] MEDS: Calcium Carb/Vitamin D 1 TABLET Tablet PO (08:08)
[2021-05-23] MEDS: metFORMIN HCl 1,000 MG Tablet 1000 MG PO ×2 (08:08→17:38)
[2021-05-23] MEDS: Ferrous Sulfate 325 MG Tablet PO ×2 (08:08→17:38)
[2021-05-23] MEDS: Potassium Chloride Oral Tablet 20 MEQ PO (08:08)
[2021-05-23] MEDS: Aspirin E.C. 81 MG Tablet PO (08:08)
[2021-05-23] MEDS: 0.9% Normal Saline 1,000 ML 999 ML IV (08:40)
[2021-05-23] MEDS: 0.9% Saline Lock 10 ML Syringe IV (08:42)
--- NOTE | 2021-05-23 09:01 | NURSING ---
Notified spouse that pt is receiving blood and requesting covid vaccine card. Spouse stated he will be in later today.
--- NOTE | 2021-05-23 09:33 | CASEMGMT ---
Social Work Met with patient for initial assessment. Discussed code status and MOLST form. Pt confirmed full code. MOLST form communicated to and placed in chart. Pt wishes to have involved in updates and DC plans. Dtr is HCPOA, she can also be involved. Pt lives at home with her and adult son who stays in the finished basement while working tank maker wood. [facility] with NRD 05/24 and continued stay is not guaranteed with each review. The goal is for pt to return home at OF which was independent for all ADLs and IADLs. Pt uses a cpap at home, but stated it's just easier to use the O2 here, but I will use my cpap once I go back home. Pt is currently on 2L of O2. SW to continue to follow for DC planning. Kinga Keyes, ELE GILLESPIEW
[2021-05-23] MEDS: Tuberculin,Purif.prot.deriv. 50 TU/ML Vial 0.1 ML ID (09:37)
[2021-05-23] MEDS: oxyCODONE 5 MG Tablet PO (09:49)
[2021-05-23 10:00] VITALS: PULSE 87; RESP 18; O2SAT 98
--- NOTE | 2021-05-23 10:44 | NURSING ---
Contacted Dr. Box's office to ask when ifrah are to come out, waiting for return call.
--- NOTE | 2021-05-23 11:11 | NURSING ---
Spoke with spouse and requested he bring patient's CPAP machine. He stated he will tomorrow.
[2021-05-23 16:46] LABS: Bedside Glucose 146 mg/dL (74-106)
[2021-05-23 17:38] VITALS: BP 115/55; PULSE 100
[2021-05-23] MEDS: Metoprolol Tartrate 25 MG Tablet 12.5 MG PO (17:38)
[2021-05-23 17:40] VITALS: BP 115/55; PULSE 100; RESP 18; TEMP 36.1; O2SAT 93
[2021-05-23] MEDS: Atorvastatin Calcium 20 MG Tablet PO (21:57)
[2021-05-24 04:40] VITALS: BP 138/61; PULSE 78
[2021-05-24] MEDS: traMADol 50 MG Tablet PO (04:40)
[2021-05-24] MEDS: Metoprolol Tartrate 25 MG Tablet 12.5 MG PO ×2 (04:40→17:42)
[2021-05-24] MEDS: Sertraline 100 MG Tablet PO (04:41)
[2021-05-24] MEDS: busPIRone 5 MG Tablet 10 MG PO ×3 (04:41→20:55)
[2021-05-24] MEDS: Clopidogrel Bisulfate 75 MG Tablet PO (04:41)
[2021-05-24] MEDS: Nystatin Powder 15gm Bottle 1 APPLIC TOPICAL ×2 (04:43→17:47)
[2021-05-24 06:27] LABS: Bedside Glucose 151 mg/dL (74-106)
[2021-05-24] MEDS: Calcium Carb/Vitamin D 1 TABLET Tablet PO (08:05)
[2021-05-24] MEDS: metFORMIN HCl 1,000 MG Tablet 1000 MG PO ×2 (08:06→17:43)
[2021-05-24] MEDS: Aspirin E.C. 81 MG Tablet PO (08:06)
[2021-05-24] MEDS: Potassium Chloride Oral Tablet 20 MEQ PO (08:06)
[2021-05-24] MEDS: Ferrous Sulfate 325 MG Tablet PO ×2 (08:06→17:43)
--- NOTE | 2021-05-24 12:10 | PT ---
Requested pt have one dose of pain meds scheduled at 12:00 daily as pt will be seen for therapy at 12:30 daily.
--- NOTE | 2021-05-24 15:21 | CHAPLAIN ---
Type of Pastoral Visit ___ Initial Visit _x__ Follow-up Visit ___ On-call Visit ___ General Patient Visit ___ Spiritual Assessment ___ Family Conference ___ Bereavement ___ Rapid Response ___ Code Blue ___ Other (describe below) Pastoral Care Referral From _x__ Patient ___ Family ___ Nurse ___ Physician ___ Forming Roll Operator ___ Final Inspector Motorcyles ___ Other (describe below) Sacrament/Intervention _x__ Active listening ___ Anointing ___ Denominational ___ Bereavement ___ Communion ___ Charu exploration ___ _x__ Life review _x__ Prayer ___ Reconciliation ___ Sacrament of Sick _x__ Supportive presence ___ Wedding ___ Other (describe below) Pastoral Comments follow up visit to this patient; pt states her situation with therapy and the desire she has to be at home; pt expresses wish for a visit and had no other immediate concerns
[2021-05-24 16:00] VITALS: BP 138/70; PULSE 78; RESP 16; TEMP 36.3; O2SAT 94
[2021-05-24 16:27] LABS: Bedside Glucose 136 mg/dL (74-106)
--- NOTE | 2021-05-24 17:10 | CASEMGMT ---
Social Work SURVEY RESEARCH ANALYST notified this worker family is present in room and had questions for SW. Met with pt and several family members in room. Answered questions on LOS and insurance coverage. [facility] reviewed today and provided ELOS 10 days with EDC 06/01. Unsure when NRD is yet, but explained DC would be a 3 [address]. [address] completed SLUMS assessment and per ST, pt scored 12/30, indicating cognitive impairment, however, pt refused ongoing services. Family upset and attempted to encourage and further explain benefit of ST. Inquired to pt time of day prefers to work with therapy - pt unsure. Broached subject to family that currently pt would be unsafe to return home alone, and to begin discussing if 10 days will provide enough time for improvement for pt to return home alone then. Explained this worker role is to assist and can explain further options in depth when ready. Family expressed understanding and appreciation. Provided SW contact information and suggested for family to discuss further with pt and notify this worker of outcome. SW to continue to follow. Kinga Keyes, DIRECTOR SHIP LEASING PROPERTY MANAGER
[2021-05-24 17:42] VITALS: BP 138/70; PULSE 78
[2021-05-24] MEDS: Senna/Docusate Sodium 1 Tablet 2 TABLET PO (17:43)
[2021-05-24] MEDS: Acetaminophen 500 MG Tablet 1000 MG PO (17:44)
[2021-05-24] MEDS: 0.9% Saline Lock 10 ML Syringe IV (17:47)
[2021-05-24 20:16] VITALS: PULSE 60; RESP 16; O2SAT 97
[2021-05-24] MEDS: oxyCODONE 5 MG Tablet PO (20:53)
[2021-05-24] MEDS: Atorvastatin Calcium 20 MG Tablet PO (20:55)
[2021-05-25] MEDS: Sertraline 100 MG Tablet PO (05:36)
[2021-05-25] MEDS: Acetaminophen 500 MG Tablet 1000 MG PO ×3 (05:36→20:33)
[2021-05-25] MEDS: busPIRone 5 MG Tablet 10 MG PO ×3 (05:36→20:33)
[2021-05-25] MEDS: Clopidogrel Bisulfate 75 MG Tablet PO (05:36)
[2021-05-25] MEDS: 0.9% Saline Lock 10 ML Syringe IV (05:37)
[2021-05-25] MEDS: Nystatin Powder 15gm Bottle 1 APPLIC TOPICAL ×2 (05:37→17:06)
[2021-05-25 05:41] VITALS: BP 124/62; PULSE 70
[2021-05-25] MEDS: Metoprolol Tartrate 25 MG Tablet 12.5 MG PO ×2 (05:41→17:04)
[2021-05-25 05:54] LABS: Absolute Lymphocyte Count 1.08 X10^3/uL (0.83-4.51); Absolute Neutrophil Count 3.8 X10^3/uL (2.0-7.7); Basophil# 0.01 X10^3/uL; Basophil% 0.2 % (0-1); Eosinophils% 1.6 % (0-5); Hematocrit 32.6 % (37-47); Hemoglobin 10.6 g/dL (12.0-15.0); Lymphocyte # 1.08 X10^3/ul (0.83-4.51); Lymphocyte % 17.6 % (19-41); Mean Corp Hgb Conc 32.5 g/dL (32-36); Mean Corpuscular Hgb 29.4 pg (27.0-32.0); Mean Corpuscular Volume 90.3 fL (81-99); Mean Platelet Vol. 8.7 fl (6.2-12.0); Monocyte# 0.98 X10^3/uL; NRBC Flagged by Analyzer 0 % (0-5); Neutrophil # 3.83 X10^3/uL (2.7-7.7); Neutrophil % 62.6 % (47-70); Platelet Count 250 K/mm3 (150-450); RBC Distribution Width CV 15.1 % (11.6-14.6); RBC Distribution Width SD 48.7 fl (35.1-43.9); Red Blood Count 3.61 M/mm3 (4.2-5.4); White Blood Count 6.1 K/mm3 (4.4-11.0)
[2021-05-25 06:31] LABS: Bedside Glucose 142 mg/dL (74-106)
[2021-05-25 06:48] VITALS: O2SAT 99
[2021-05-25] MEDS: Calcium Carb/Vitamin D 1 TABLET Tablet PO (07:54)
[2021-05-25] MEDS: Ferrous Sulfate 325 MG Tablet PO ×2 (07:54→17:03)
[2021-05-25] MEDS: Aspirin E.C. 81 MG Tablet PO (07:54)
[2021-05-25] MEDS: Potassium Chloride Oral Tablet 20 MEQ PO (07:54)
[2021-05-25] MEDS: metFORMIN HCl 1,000 MG Tablet 1000 MG PO ×2 (07:54→17:03)
[2021-05-25] MEDS: traMADol 50 MG Tablet PO ×2 (12:05→19:03)
[2021-05-25 13:23] VITALS: BP 133/65; PULSE 80; RESP 16; TEMP 36.1; O2SAT 96
--- NOTE | 2021-05-25 13:31 | CASEMGMT ---
Social Work contacted this worker and inquired more about PT/OT/ST. Explained ST is aware to contact /pt to revisit acceptance of ST and identified needs. Offered for to stay for PT/OT sessions. Explained insurance NRD 05/29 and EDC 06/01. IDT recommending additional assistance in the home or SNF. Pt is currently x2 assist. stated pt is adamant about not going to a SNF and that option will not be discussed with her, pt . Encouraged to contact nonskilled HHC agencies to begin securing assistance in the home. present in therapy gym with and dtr. Provided nonskilled HHC list. appreciative. SW to continue to follow. Kinga Keyes, ARM REST BUILDER BIOLOGY MANAGER
--- NOTE | 2021-05-25 13:32 | ST ---
Pt visit made per pt's family request. Pt, pt's , and dtr-in-law present. All instructed on recent cognitive-linguistic and dysphagia assessment with ASBESTOS ABATEMENT WORKER recommending continued ST intervention for both areas. Described rationale of ST with goal of having pt return to independent level and increase personal safety. Pt adamantly stating she does not wish to participate in any ASBESTOS ABATEMENT WORKER treatment. Pt and family encouraged to follow up with PCP once pt returns home with any further ST needs.
[2021-05-25 16:16] LABS: Bedside Glucose 175 mg/dL (74-106)
[2021-05-25 16:50] VITALS: PULSE 64; RESP 18; O2SAT 96
[2021-05-25 17:04] VITALS: BP 133/65; PULSE 64
--- NOTE | 2021-05-25 19:48 | PCM.PN.RX ---
Progress Note - Pharmacy Subjective: [] TCU Admission Objective: Allergies adhesive tape Adverse Reaction (Verified 05/18/21 12:16) Unknown morphine Adverse Reaction (Verified 05/18/21 12:16) Vomiting Knrurgg-TOB-DkV Reductase Inhibitor [Usogton-Tne-Ujm Reductase Inhibitor] Adverse Reaction (Verified 05/18/21 12:16) Pain in joints Current Medications Generic Name Dose Route Start Last Admin Trade Name Freq PRN Reason Stop Dose Admin Acetaminophen 1,000 mg 05/24/21 16:15 05/25/21 14:43 Acetaminophen 500 Mg Tablet PO 1,000 mg TID DELMA Administration Alprazolam 0.25 mg 05/23/21 07:56 Alprazolam 0.25 Mg Tablet PO TID PRN ANXIETY/RESTLESSNESS/SLEEP Aspirin 81 mg 05/23/21 08:00 05/25/21 07:54 Aspirin E.C. 81 Mg Tablet [facility] Administration Atorvastatin Calcium 20 mg 05/22/21 22:00 05/24/21 20:55 Atorvastatin Calcium 20 Mg Tablet PO 20 mg 2200 DELMA Administration Bisacodyl 10 mg 05/22/21 22:06 Bisacodyl 5 Mg Tablet PO DAILY PRN Constipation Buspirone HCl 10 mg 05/22/21 22:00 05/25/21 14:43 Buspirone 5 Mg Tablet PO 10 mg TID DELMA Administration Calcium/Vitamin D 1 tablet 05/23/21 08:00 05/25/21 07:54 Calcium Carb/Vitamin D 1 Tablet Tablet PO 1 [facility] Administration Clopidogrel Bisulfate 75 mg 05/23/21 06:00 05/25/21 05:36 Clopidogrel Bisulfate 75 Mg Tablet PO 75 mg DAILY DELMA Administration Ferrous Sulfate 325 mg 05/23/21 08:00 05/25/21 17:03 Ferrous Sulfate 325 Mg Tablet PO 325 [facility] Administration Loperamide HCl 2 mg 05/22/21 20:45 Loperamide 2 Mg Capsule PO Q6H PRN PRN Diarrhea Metformin HCl 1,000 mg 05/23/21 08:00 05/25/21 17:03 Metformin Hcl 1,000 Mg Tablet PO 1,000 mg BID DELMA Administration Metoprolol Tartrate 12.5 mg 05/23/21 06:00 05/25/21 17:04 Metoprolol Tartrate 25 Mg Tablet PO 12.5 mg BID [facility] Administration Nystatin 1 applic 03/08/22 06:00 05/25/21 17:06 Nystatin Powder 15gm Bottle TOPICAL 1 applic BID DELMA Administration Protocol Oxycodone HCl 5 mg 05/22/21 22:07 05/24/21 20:53 Oxycodone 5 Mg Tablet PO 5 mg Q4H PRN PRN Administration Pain Score 6-10 Polyethylene Glycol 17 gm 05/23/21 06:00 05/25/21 05:37 Polyethylene Glycol 3350 17 Gm Packet PO Not Given DAILY DELMA Potassium Chloride 20 meq 05/23/21 08:00 05/25/21 07:54 Potassium Chloride Oral Tablet 20 Meq PO 20 meq DAILYCM DELMA Administration Senna/Docusate Sodium 2 tablet 05/23/21 06:00 05/25/21 17:06 Senna/Docusate Sodium 1 Tablet PO Not Given BID DELMA Sertraline HCl 100 mg 05/23/21 06:00 05/25/21 05:36 Sertraline 100 Mg Tablet PO 100 mg DAILY DELMA Administration Sodium Chloride 10 - 40 ml 05/22/21 22:25 05/25/21 05:37 0.9% Saline Lock 10 Ml Syringe IV 10 ml UD PRN Administration SALINE FLUSH Tramadol HCl 50 mg 05/22/21 22:06 05/25/21 19:03 Tramadol 50 Mg Tablet PO 50 mg Q6H PRN PRN Administration Pain Score 4-5 Tramadol HCl 50 mg 05/25/21 12:00 05/25/21 12:05 Tramadol 50 Mg Tablet PO 50 mg 1200 DELMA Administration Tuberculin PPD 0.1 ml 05/30/21 10:00 Tuberculin,Purif.Prot.Deriv. 50 Tu/Ml Vial ID 05/30/21 10:01 X1 ONE Problem List (Last Reviewed 05/22/21 @ 21:[address] Shaun Hartley MD) Depression (Acute) Hypokalemia (Acute) Anxiety (Acute) Right bundle branch block (Acute) Pancreatitis (Acute) Sleep apnea (Acute) Gastroesophageal reflux disease (Acute) Hyperlipidemia (Acute) Hypertension (Chronic) Coronary artery disease (Acute) Diabetes mellitus (Acute) Fall (Acute) Debility (Acute) Blood loss anemia (Acute) Iron deficiency anemia (Chronic) Vital Signs Temp Pulse Resp BP Pulse Ox 97.0 F L 64 18 133/65 H 96 05/25/21 13:23 05/25/21 17:04 05/25/21 16:50 05/25/21 17:04 05/25/21 16:50 Oxygen Flow Rate (L/min) 2 Oxygen Delivery Method Room Air Weight: 68.084 kg Sodium 134 mmol/L (136-145) L 05/23/21 05:25 Potassium 5.1 mmol/L (3.5-5.1) 05/23/21 05:25 Chloride 101 mmol/L (98-107) 05/23/21 05:25 Carbon Dioxide 26.0 mmol/L (21.0-32.0) 05/23/21 05:25 Anion Gap 7 (5-15) 05/23/21 05:25 BUN 68 mg/dL (7-18) H 05/23/21 05:25 Creatinine 2.15 mg/dL (0.55-1.02) H 05/23/21 05:25 Est GFR (MDRD) Af Amer 28 mL/min (>60) L 05/23/21 05:25 Est GFR (MDRD) Non-Af 23 mL/min (>60) L 05/23/21 05:25 BUN/Creatinine Ratio 31.6 RATIO (10-20) H 05/23/21 05:25 Glucose 120 mg/dL (74-106) H 05/23/21 05:25 Assessment/Plan: 1) Pain: Acetaminophen 1000mg po tid, Oxycodone 5mg po q4h prn for pain 6-10, Tramadol 50mg po q6h prn for pain 4-5, Tramadol 50mg po daily at 12 noon. Please continue to monitor prn usage and for signs/symptoms of increased pain. --Oxycodone PRN note: there have been 2 administrations to date --Tramadol PRN note: there have been 5 administrations to date 2) Hyperlipidemia: Atorvastatin 20mg po at bedtime. Pt's last LFTs were within normal limits. Pt's last Lipid Panel the VLDL and Triglycerides were elevated. Please continue to monitor pt labs. *3) Hypokalemia: Potassium 20meq po daily with breakfast. Pt's last K+ level was 5.1 (at the upper limits of normal) on 05/23/21. Pt was previously on Furosemide 40mg daily for edema, which was recently discontinued on 05/23/21. Please re evaluate continued need for Potassium 20meq due to recent discontinuation of Furosemide. Thanks 4) Diarrhea: Loperamide 2mg po q6h prn for diarrhea. Please continue to monitor prn usage and for signs/symptoms of diarrhea. --PRN note: there has not been an administration to date 5) Diabetes: Metformin 1000mg po bid with food. Pt's average blood glucose readings for the last 10 readings is 158.9. Please continue to monitor pt's blood glucose. 6) CAD: Aspirin 81mg daily, Clopidogrel 75mg po daily, Metoprolol Tartrate 12.5mg po bid. Pt's average BP is 122.3/60.5. Please continue to monitor pt's BP. Psychotropic Medications: Sertraline 100mg po daily for depression. See physicians note in H+P about GDR Buspar 10mg po tid for anxiety. See physicians note in H+P about GDR. Note: Pt did recently have Alprazolam reduced from delma to prn. Alprazolam 0.25mg po tid prn for anxiety. Medication was reduced from scheduled to prn. To date there have been zero administrations of prn. Unnecessary Medications: *Bowel Regimen: Bisacodyl 10mg po daily prn for constipation, Miralax 17gm po daily, Senna/Docusate 2 tablet po bid. Pt has either refused Miralax or not had Miralax administered due to diarrhea 2 out of 3 doses. Pt has either refused Senna/Docusate or not had Senna/Docusate administered due to diarrhea 4 out of 6 doses. Please continue to monitor pt and pt refusals. Please consider changing Miralax and/or Senna/Docusate to prn use. Thanks Date of Note:: 05/25/21
[2021-05-25] MEDS: Atorvastatin Calcium 20 MG Tablet PO (20:33)
[2021-05-26] MEDS: busPIRone 5 MG Tablet 10 MG PO ×3 (05:55→21:38)
[2021-05-26] MEDS: Acetaminophen 500 MG Tablet 1000 MG PO ×3 (05:55→21:39)
[2021-05-26 05:56] VITALS: BP 140/59; PULSE 66
[2021-05-26] MEDS: Clopidogrel Bisulfate 75 MG Tablet PO (05:56)
[2021-05-26] MEDS: Sertraline 100 MG Tablet PO (05:56)
[2021-05-26] MEDS: Metoprolol Tartrate 25 MG Tablet 12.5 MG PO ×2 (05:56→17:11)
[2021-05-26] MEDS: 0.9% Saline Lock 10 ML Syringe IV ×2 (06:02→19:50)
[2021-05-26] MEDS: Nystatin Powder 15gm Bottle 1 APPLIC TOPICAL ×2 (06:05→17:15)
[2021-05-26 06:31] LABS: Bedside Glucose 122 mg/dL (74-106)
[2021-05-26] MEDS: Calcium Carb/Vitamin D 1 TABLET Tablet PO (08:02)
[2021-05-26] MEDS: metFORMIN HCl 1,000 MG Tablet 1000 MG PO ×2 (08:02→17:11)
[2021-05-26] MEDS: Ferrous Sulfate 325 MG Tablet PO ×2 (08:02→17:11)
[2021-05-26] MEDS: Aspirin E.C. 81 MG Tablet PO (08:02)
[2021-05-26] MEDS: Potassium Chloride Oral Tablet 20 MEQ PO (08:03)
[2021-05-26 09:15] VITALS: O2SAT 95
[2021-05-26] MEDS: traMADol 50 MG Tablet PO (11:30)
--- NOTE | 2021-05-26 12:35 | NURSING ---
dressing changed to lt hip, abd's x2 saturated yellow drng. incision well approx, open & closed blisters covered with adaptic before applying ABD's.
[2021-05-26 14:27] VITALS: BP 137/64; PULSE 67; RESP 17; TEMP 36.4
[2021-05-26 16:36] LABS: Bedside Glucose 170 mg/dL (74-106)
[2021-05-26 17:11] VITALS: PULSE 67
[2021-05-26 20:00] VITALS: PULSE 66; RESP 16; O2SAT 95
[2021-05-26] MEDS: Atorvastatin Calcium 20 MG Tablet PO (21:39)
[2021-05-27 05:19] VITALS: BP 141/53; PULSE 66
[2021-05-27] MEDS: Acetaminophen 500 MG Tablet 1000 MG PO ×3 (05:19→21:04)
[2021-05-27] MEDS: Sertraline 100 MG Tablet PO (05:19)
[2021-05-27] MEDS: Metoprolol Tartrate 25 MG Tablet 12.5 MG PO ×2 (05:19→17:31)
[2021-05-27] MEDS: Clopidogrel Bisulfate 75 MG Tablet PO (05:19)
[2021-05-27] MEDS: busPIRone 5 MG Tablet 10 MG PO ×3 (05:20→21:05)
[2021-05-27] MEDS: Nystatin Powder 15gm Bottle 1 APPLIC TOPICAL ×2 (05:20→17:33)
[2021-05-27 06:46] LABS: Bedside Glucose 116 mg/dL (74-106)
[2021-05-27] MEDS: Aspirin E.C. 81 MG Tablet PO (08:41)
[2021-05-27] MEDS: metFORMIN HCl 1,000 MG Tablet 1000 MG PO ×2 (08:41→17:31)
[2021-05-27] MEDS: Calcium Carb/Vitamin D 1 TABLET Tablet PO (08:41)
[2021-05-27] MEDS: Potassium Chloride Oral Tablet 20 MEQ PO (08:41)
[2021-05-27] MEDS: Ferrous Sulfate 325 MG Tablet PO ×2 (08:41→17:32)
[2021-05-27] MEDS: traMADol 50 MG Tablet PO (11:41)
[2021-05-27 13:53] VITALS: BP 123/62; PULSE 73; RESP 16; TEMP 36.1; O2SAT 97
[2021-05-27 16:45] LABS: Bedside Glucose 191 mg/dL (74-106)
[2021-05-27 17:31] VITALS: PULSE 73
[2021-05-27] MEDS: ALPRAZolam 0.25 MG Tablet PO (17:35)
[2021-05-27] MEDS: Atorvastatin Calcium 20 MG Tablet PO (21:05)
[2021-05-27 22:35] VITALS: PULSE 64; RESP 18; O2SAT 98
[2021-05-28] MEDS: busPIRone 5 MG Tablet 10 MG PO ×3 (06:18→20:14)
[2021-05-28] MEDS: Acetaminophen 500 MG Tablet 1000 MG PO ×3 (06:18→20:13)
[2021-05-28 06:19] VITALS: BP 121/60; PULSE 60
[2021-05-28] MEDS: Nystatin Powder 15gm Bottle 1 APPLIC TOPICAL ×2 (06:19→17:54)
[2021-05-28] MEDS: Metoprolol Tartrate 25 MG Tablet 12.5 MG PO ×2 (06:19→17:53)
[2021-05-28] MEDS: Clopidogrel Bisulfate 75 MG Tablet PO (06:19)
[2021-05-28] MEDS: Sertraline 100 MG Tablet PO (06:19)
[2021-05-28 06:26] LABS: Bedside Glucose 112 mg/dL (74-106)
[2021-05-28] MEDS: Potassium Chloride Oral Tablet 20 MEQ PO (08:30)
[2021-05-28] MEDS: Ferrous Sulfate 325 MG Tablet PO ×2 (08:30→17:53)
[2021-05-28] MEDS: Aspirin E.C. 81 MG Tablet PO (08:30)
[2021-05-28] MEDS: Calcium Carb/Vitamin D 1 TABLET Tablet PO (08:30)
[2021-05-28] MEDS: metFORMIN HCl 1,000 MG Tablet 1000 MG PO ×2 (08:30→17:53)
[2021-05-28] MEDS: traMADol 50 MG Tablet PO ×2 (08:30→13:41)
[2021-05-28 15:43] VITALS: BP 133/59; PULSE 71; RESP 16; TEMP 36.8; O2SAT 97
[2021-05-28 16:50] LABS: Bedside Glucose 160 mg/dL (74-106)
[2021-05-28 17:53] VITALS: PULSE 75
[2021-05-28] MEDS: oxyCODONE 5 MG Tablet PO (17:53)
[2021-05-28] MEDS: Atorvastatin Calcium 20 MG Tablet PO (20:14)
[2021-05-29] MEDS: busPIRone 5 MG Tablet 10 MG PO ×3 (05:45→21:13)
[2021-05-29] MEDS: Acetaminophen 500 MG Tablet 1000 MG PO ×3 (05:45→21:12)
[2021-05-29 05:46] VITALS: BP 136/60; PULSE 63
[2021-05-29] MEDS: Metoprolol Tartrate 25 MG Tablet 12.5 MG PO ×2 (05:46→17:30)
[2021-05-29] MEDS: Clopidogrel Bisulfate 75 MG Tablet PO (05:46)
[2021-05-29] MEDS: Sertraline 100 MG Tablet PO (05:46)
[2021-05-29] MEDS: Nystatin Powder 15gm Bottle 1 APPLIC TOPICAL ×2 (05:48→17:31)
[2021-05-29 06:31] LABS: Bedside Glucose 118 mg/dL (74-106)
[2021-05-29] MEDS: Potassium Chloride Oral Tablet 20 MEQ PO (08:06)
[2021-05-29] MEDS: Ferrous Sulfate 325 MG Tablet PO ×2 (08:06→17:30)
[2021-05-29] MEDS: Aspirin E.C. 81 MG Tablet PO (08:06)
[2021-05-29] MEDS: Calcium Carb/Vitamin D 1 TABLET Tablet PO (08:06)
[2021-05-29] MEDS: metFORMIN HCl 1,000 MG Tablet 1000 MG PO ×2 (08:06→17:30)
[2021-05-29] MEDS: traMADol 50 MG Tablet PO (11:27)
[2021-05-29 15:07] VITALS: BP 143/64; PULSE 72; RESP 16; TEMP 36.7; O2SAT 96
[2021-05-29 15:51] LABS: Bedside Glucose 118 mg/dL (74-106)
[2021-05-29 17:30] VITALS: PULSE 70
[2021-05-29] MEDS: Senna/Docusate Sodium 1 Tablet 2 TABLET PO (17:31)
--- NOTE | 2021-05-29 19:40 | RAD_ITS ---
STUDY: X-RAY - ABDOMEN/PELVIS REASON FOR EXAM: Female, 81 years old. Nausea/vomiting. TECHNIQUE: Two AP supine views of the abdomen and pelvis. COMPARISON: None. FINDINGS: Normal visualized lung bases. There is an unremarkable bowel gas pattern. There is no demonstrated free abdominal air. The visualized liver, spleen and kidneys are grossly normal in size and morphology. Normal soft tissue structures. There are diffuse degenerative changes of the visualized lumbar spine. RAD/Abdomen Single View IMPRESSION: No acute abnormal finding in the abdomen or pelvis. Electronically Signed: Jame Whitaker MD at 0:20 EDT ,
[2021-05-29] MEDS: Pantoprazole Sodium 40 MG Tablet PO (21:12)
[2021-05-29] MEDS: Atorvastatin Calcium 20 MG Tablet PO (21:13)
[2021-05-29 22:37] VITALS: PULSE 70; RESP 16; O2SAT 99
[2021-05-30 05:57] LABS: Absolute Lymphocyte Count 1.56 X10^3/uL (0.83-4.51); Absolute Neutrophil Count 5.1 X10^3/uL (2.0-7.7); Basophil# 0.01 X10^3/uL; Basophil% 0.1 % (0-1); Eosinophil# 0.07 X10^3/uL; Eosinophils% 0.9 % (0-5); Hematocrit 31.6 % (37-47); Hemoglobin 10.5 g/dL (12.0-15.0); Lymphocyte # 1.56 X10^3/ul (0.83-4.51); Lymphocyte % 20.6 % (19-41); Mean Corp Hgb Conc 33.2 g/dL (32-36); Mean Corpuscular Hgb 30.1 pg (27.0-32.0); Mean Corpuscular Volume 90.5 fL (81-99); Mean Platelet Vol. 8.7 fl (6.2-12.0); Monocyte# 0.76 X10^3/uL; NRBC Flagged by Analyzer 0 % (0-5); Neutrophil # 5.12 X10^3/uL (2.7-7.7); Neutrophil % 67.6 % (47-70); Platelet Count 309 K/mm3 (150-450); RBC Distribution Width CV 15.6 % (11.6-14.6); RBC Distribution Width SD 50.4 fl (35.1-43.9); Red Blood Count 3.49 M/mm3 (4.2-5.4); White Blood Count 7.6 K/mm3 (4.4-11.0)
[2021-05-30 06:06] VITALS: BP 119/68; PULSE 67
[2021-05-30] MEDS: Metoprolol Tartrate 25 MG Tablet 12.5 MG PO ×2 (06:06→16:22)
[2021-05-30] MEDS: Clopidogrel Bisulfate 75 MG Tablet PO (06:07)
[2021-05-30] MEDS: Acetaminophen 500 MG Tablet 1000 MG PO ×3 (06:08→20:52)
[2021-05-30] MEDS: busPIRone 5 MG Tablet 10 MG PO ×3 (06:08→20:51)
[2021-05-30] MEDS: Sertraline 100 MG Tablet PO (06:08)
[2021-05-30] MEDS: Nystatin Powder 15gm Bottle 1 APPLIC TOPICAL ×2 (06:11→16:21)
[2021-05-30 06:44] LABS: Anion Gap 2 (5-15); BUN 34 mg/dL (7-18); BUN/Creat Ratio 31.5 RATIO (10-20); Calcium,Total 9.1 mg/dL (8.5-10.1); Chloride 105 mmol/L (98-107); Creatinine, Serum 1.08 mg/dL (0.55-1.02); EST Glomerular Filtration Rate 52 mL/min (>60); Est Glom Filt Rate - Afr Amer 63 mL/min (>60); Estimated Creatinine Clearance 44.65 ml/min; Glucose 88 mg/dL (74-106); Potassium 4.8 mmol/L (3.5-5.1); Sodium Level 136 mmol/L (136-145)
[2021-05-30] MEDS: Pantoprazole Sodium 40 MG Tablet PO (06:46)
[2021-05-30 07:22] LABS: Bacteria 0 SEEN /hpf (None Seen); Mucous, Urine 0 SEEN /hpf (<or=2+); Red Blood Cells-Urine 0 SEEN /hpf (0-5); Squamous Epithelial Cells - UA 0 SEEN /hpf (5-10); White Blood Cells 0 SEEN /hpf (0-5)
[2021-05-30 07:24] LABS: Color, Urine Yellow (Yellow); Glucose, Dipstick Normal (Normal); Ketone-Dipstick Negative (Negative); Leukocyte Esterase-Dipstick Negative /ul (Negative); Nitrite-Dipstick Negative (Negative); Occult Blood-Urine Negative /ul (Negative); Protein-Dipstick Negative (Negative); Urine Bilirubin Dipstick Negative (Negative); Urine Clarity Clear (Clear); Urine Urobilinogen Normal (Normal)
[2021-05-30] MEDS: Potassium Chloride Oral Tablet 20 MEQ PO (08:01)
[2021-05-30] MEDS: Ferrous Sulfate 325 MG Tablet PO ×2 (08:01→16:17)
[2021-05-30] MEDS: Calcium Carb/Vitamin D 1 TABLET Tablet PO (08:01)
[2021-05-30] MEDS: Aspirin E.C. 81 MG Tablet PO (08:02)
[2021-05-30] MEDS: metFORMIN HCl 1,000 MG Tablet 1000 MG PO ×2 (08:49→16:17)
[2021-05-30] MEDS: Tuberculin,Purif.prot.deriv. 50 TU/ML Vial 0.1 ML ID (11:14)
[2021-05-30] MEDS: traMADol 50 MG Tablet PO ×2 (11:14→16:31)
[2021-05-30] MEDS: Loperamide 2 MG Capsule PO (11:19)
--- NOTE | 2021-05-30 11:21 | NURSING ---
Addendum entered by Chrystal Sofia 05/30/21 16:16: IMODIUM EFFECTIVE TODAY. Original Note: R' HAVING DIARRHEA THIS MORNING. IMODIUM GIVEN AT THIS TIME. SHE STATES SHE OFTEN HAS EPISODES OF LOOSE STOOLS/DIARRHEA AT HOME. FLUIDS ENCOURAGED. WILL MONITOR. BOTTOM GETTING RED/SORE FROM STOOL, TAWANDA ORDERED.
[2021-05-30 12:20] VITALS: O2SAT 98
[2021-05-30 15:13] VITALS: BP 112/69; PULSE 77; RESP 16; TEMP 36.2; O2SAT 96
[2021-05-30] MEDS: Menthol/Lanolin/Calamine/Znox 113 GM Tube 1 APPLIC TOPICAL (16:16)
[2021-05-30 16:22] VITALS: PULSE 77
[2021-05-30 16:46] LABS: Bedside Glucose 170 mg/dL (74-106)
[2021-05-30] MEDS: oxyCODONE 5 MG Tablet PO (20:22)
[2021-05-30] MEDS: Atorvastatin Calcium 20 MG Tablet PO (20:51)
[2021-05-30 22:50] VITALS: PULSE 72; RESP 14; O2SAT 99
[2021-05-31] MEDS: Menthol/Lanolin/Calamine/Znox 113 GM Tube 1 APPLIC TOPICAL ×2 (05:27→14:05)
[2021-05-31] MEDS: Nystatin Powder 15gm Bottle 1 APPLIC TOPICAL ×2 (05:28→17:10)
[2021-05-31 05:29] VITALS: BP 136/55; PULSE 70
[2021-05-31] MEDS: busPIRone 5 MG Tablet 10 MG PO ×3 (05:29→21:33)
[2021-05-31] MEDS: Sertraline 100 MG Tablet PO (05:29)
[2021-05-31] MEDS: Acetaminophen 500 MG Tablet 1000 MG PO ×3 (05:29→21:32)
[2021-05-31] MEDS: Pantoprazole Sodium 40 MG Tablet PO (05:29)
[2021-05-31] MEDS: Clopidogrel Bisulfate 75 MG Tablet PO (05:29)
[2021-05-31] MEDS: Metoprolol Tartrate 25 MG Tablet 12.5 MG PO ×2 (05:29→17:09)
[2021-05-31 06:11] LABS: Bedside Glucose 116 mg/dL (74-106)
[2021-05-31] MEDS: metFORMIN HCl 1,000 MG Tablet 1000 MG PO ×2 (08:04→17:10)
[2021-05-31] MEDS: Ferrous Sulfate 325 MG Tablet PO ×2 (08:04→17:09)
[2021-05-31] MEDS: Calcium Carb/Vitamin D 1 TABLET Tablet PO (08:04)
[2021-05-31] MEDS: Aspirin E.C. 81 MG Tablet PO (08:04)
[2021-05-31] MEDS: Potassium Chloride Oral Tablet 20 MEQ PO (08:04)
--- NOTE | 2021-05-31 09:14 | CASEMGMT ---
Social Work IDT met with patient and for care plan meeting. Discussed patient's progress in PT/OT and nursing. Pt making progress, however, pt still needs physical assistance. Pt and family adamant about returning home. Inquired if secured any nonskilled digital circuit designer. states he would like to be able to it all himself. Encouraged to have extra assistance for showers, toileting, etc. SW to order skilled HHC and any DME. expressed understanding. Explained [employer] insurance with NRD 06/05 and insurance indicating issuing a DC date. SW to continue to follow for DC planning. Kinga Keyes, ELE VP SOFTWARE ENGINEERING
[2021-05-31] MEDS: traMADol 50 MG Tablet PO (11:16)
[2021-05-31 13:35] VITALS: BP 124/70; PULSE 74; RESP 16; TEMP 36.3; O2SAT 96
[2021-05-31 16:06] LABS: Bedside Glucose 149 mg/dL (74-106)
[2021-05-31 17:09] VITALS: PULSE 74
[2021-05-31] MEDS: Atorvastatin Calcium 20 MG Tablet PO (21:33)
[2021-05-31] MEDS: oxyCODONE 5 MG Tablet PO (21:38)
[2021-06-01] MEDS: busPIRone 5 MG Tablet 10 MG PO ×3 (05:32→23:20)
[2021-06-01] MEDS: Acetaminophen 500 MG Tablet 1000 MG PO ×3 (05:32→23:19)
[2021-06-01 05:33] VITALS: BP 136/57; PULSE 69
[2021-06-01] MEDS: Clopidogrel Bisulfate 75 MG Tablet PO (05:33)
[2021-06-01] MEDS: Sertraline 100 MG Tablet PO (05:33)
[2021-06-01] MEDS: Metoprolol Tartrate 25 MG Tablet 12.5 MG PO ×2 (05:33→17:33)
[2021-06-01] MEDS: Pantoprazole Sodium 40 MG Tablet PO (05:33)
[2021-06-01] MEDS: Menthol/Lanolin/Calamine/Znox 113 GM Tube 1 APPLIC TOPICAL ×2 (05:35→17:35)
[2021-06-01] MEDS: Furosemide 40 MG Tablet PO (05:37)
[2021-06-01 06:46] LABS: Bedside Glucose 92 mg/dL (74-106)
[2021-06-01] MEDS: Calcium Carb/Vitamin D 1 TABLET Tablet PO (08:51)
[2021-06-01] MEDS: metFORMIN HCl 1,000 MG Tablet 1000 MG PO ×2 (08:51→17:33)
[2021-06-01] MEDS: Potassium Chloride Oral Tablet 20 MEQ PO (08:51)
[2021-06-01] MEDS: Ferrous Sulfate 325 MG Tablet PO ×2 (08:51→17:32)
[2021-06-01] MEDS: Aspirin E.C. 81 MG Tablet PO (08:51)
[2021-06-01 11:01] LABS: Bedside Glucose 89 mg/dL (74-106)
[2021-06-01] MEDS: traMADol 50 MG Tablet PO (11:56)
[2021-06-01 15:23] VITALS: BP 156/54; PULSE 84; RESP 16; TEMP 36.2; O2SAT 96
[2021-06-01 16:26] LABS: Bedside Glucose 210 mg/dL (74-106)
[2021-06-01 17:33] VITALS: BP 156/54; PULSE 84
[2021-06-01] MEDS: Nystatin Powder 15gm Bottle 1 APPLIC TOPICAL (17:35)
[2021-06-01] MEDS: Atorvastatin Calcium 20 MG Tablet PO (23:19)
[2021-06-02 06:36] LABS: Bedside Glucose 97 mg/dL (74-106)
[2021-06-02] MEDS: Polyethylene Glycol 3350 17 GM PACKET PO (07:07)
[2021-06-02] MEDS: Senna/Docusate Sodium 1 Tablet 2 TABLET PO (07:08)
[2021-06-02] MEDS: Acetaminophen 500 MG Tablet 1000 MG PO ×3 (07:08→20:31)
[2021-06-02 07:09] VITALS: BP 137/57; PULSE 73
[2021-06-02] MEDS: Pantoprazole Sodium 40 MG Tablet PO (07:09)
[2021-06-02] MEDS: Clopidogrel Bisulfate 75 MG Tablet PO (07:09)
[2021-06-02] MEDS: Sertraline 100 MG Tablet PO (07:09)
[2021-06-02] MEDS: Metoprolol Tartrate 25 MG Tablet 12.5 MG PO ×2 (07:09→17:17)
[2021-06-02] MEDS: Menthol/Lanolin/Calamine/Znox 113 GM Tube 1 APPLIC TOPICAL ×2 (07:10→17:18)
[2021-06-02] MEDS: Nystatin Powder 15gm Bottle 1 APPLIC TOPICAL ×2 (07:10→17:18)
[2021-06-02] MEDS: busPIRone 5 MG Tablet 10 MG PO ×3 (07:10→20:30)
[2021-06-02] MEDS: Furosemide 40 MG Tablet PO (07:10)
[2021-06-02] MEDS: Potassium Chloride Oral Tablet 20 MEQ PO (07:59)
[2021-06-02] MEDS: metFORMIN HCl 1,000 MG Tablet 1000 MG PO ×2 (07:59→17:17)
[2021-06-02] MEDS: Ferrous Sulfate 325 MG Tablet PO ×2 (07:59→17:18)
[2021-06-02] MEDS: Calcium Carb/Vitamin D 1 TABLET Tablet PO (07:59)
[2021-06-02] MEDS: Aspirin E.C. 81 MG Tablet PO (07:59)
--- NOTE | 2021-06-02 09:22 | MDS.RN ---
Information for the mds was obtained from review of the clinical record, interview of resident, staff, and direct observation of resident's care.
[2021-06-02] MEDS: traMADol 50 MG Tablet PO ×2 (11:02→20:30)
--- NOTE | 2021-06-02 13:12 | NURSING ---
Addendum entered by Chrystal Sofia 06/02/21 14:55: ifrah were removed this afternoon, but after office had called and stated ifrah were to be removed at f/u appt next wk. called office and spoke with Isaac. she stated it was fine ifrah came out today since it's been 2 weeks since surgery. Original Note: IFRAH REMOVED FROM LEFT HIP INCISIONS. 18 TOTAL IFRAH REMOVED. R' TOLERATED WELL. INCISIONS X3 REDDENED FROM POSSIBLE RUBBING WHILE SITTING IN WHEELCHAIR. CLEANSED WITH NS AND APPLIED ABDS FOR PROTECTION. USED NON-ADHESIVE/MINIMAL TAPE.
[2021-06-02 16:00] VITALS: BP 131/58; PULSE 72; RESP 16; TEMP 36.4; O2SAT 97
[2021-06-02 16:16] LABS: Bedside Glucose 102 mg/dL (74-106)
[2021-06-02 17:17] VITALS: PULSE 72
[2021-06-02] MEDS: Loperamide 2 MG Capsule PO (20:30)
[2021-06-02] MEDS: Atorvastatin Calcium 20 MG Tablet PO (20:32)
[2021-06-03] MEDS: Sertraline 100 MG Tablet PO (05:27)
[2021-06-03] MEDS: Clopidogrel Bisulfate 75 MG Tablet PO (05:27)
[2021-06-03] MEDS: busPIRone 5 MG Tablet 10 MG PO ×3 (05:27→21:37)
[2021-06-03] MEDS: Acetaminophen 500 MG Tablet 1000 MG PO ×3 (05:27→21:37)
[2021-06-03] MEDS: Furosemide 40 MG Tablet PO (05:27)
[2021-06-03 05:28] VITALS: BP 133/53; PULSE 68
[2021-06-03] MEDS: Metoprolol Tartrate 25 MG Tablet 12.5 MG PO ×2 (05:28→17:30)
[2021-06-03] MEDS: Pantoprazole Sodium 40 MG Tablet PO (05:28)
[2021-06-03] MEDS: Nystatin Powder 15gm Bottle 1 APPLIC TOPICAL ×2 (05:30→17:36)
[2021-06-03] MEDS: Menthol/Lanolin/Calamine/Znox 113 GM Tube 1 APPLIC TOPICAL ×2 (05:30→17:32)
[2021-06-03 06:31] LABS: Bedside Glucose 89 mg/dL (74-106)
[2021-06-03] MEDS: Potassium Chloride Oral Tablet 20 MEQ PO (08:27)
[2021-06-03] MEDS: Aspirin E.C. 81 MG Tablet PO (08:27)
[2021-06-03] MEDS: Calcium Carb/Vitamin D 1 TABLET Tablet PO (08:27)
[2021-06-03] MEDS: metFORMIN HCl 1,000 MG Tablet 1000 MG PO ×2 (08:27→17:30)
[2021-06-03] MEDS: Ferrous Sulfate 325 MG Tablet PO ×2 (08:27→17:30)
[2021-06-03] MEDS: traMADol 50 MG Tablet PO (12:57)
[2021-06-03 13:35] VITALS: O2SAT 98
[2021-06-03 16:00] VITALS: BP 116/45; PULSE 80; RESP 18; TEMP 36.6; O2SAT 98
[2021-06-03 16:05] LABS: Bedside Glucose 110 mg/dL (74-106)
[2021-06-03 17:30] VITALS: PULSE 85
--- NOTE | 2021-06-03 17:39 | NURSING ---
Pt informed RN she drinks Glucerna at home and requested family to bring it in. RN informed patient there is Glucerna available on the unit. Pt requested Glucerna once a day at night. Order entered.
[2021-06-03] MEDS: Glucerna Shake 120 ML LIQUID PO (21:34)
[2021-06-03] MEDS: Atorvastatin Calcium 20 MG Tablet PO (21:37)
[2021-06-04 05:40] VITALS: BP 132/62; PULSE 71
[2021-06-04] MEDS: busPIRone 5 MG Tablet 10 MG PO ×3 (05:40→21:13)
[2021-06-04] MEDS: Clopidogrel Bisulfate 75 MG Tablet PO (05:40)
[2021-06-04] MEDS: Acetaminophen 500 MG Tablet 1000 MG PO ×3 (05:40→21:12)
[2021-06-04] MEDS: Furosemide 40 MG Tablet PO (05:40)
[2021-06-04] MEDS: Metoprolol Tartrate 25 MG Tablet 12.5 MG PO ×2 (05:40→17:36)
[2021-06-04] MEDS: Pantoprazole Sodium 40 MG Tablet PO (05:40)
[2021-06-04] MEDS: Menthol/Lanolin/Calamine/Znox 113 GM Tube 1 APPLIC TOPICAL ×2 (05:41→17:36)
[2021-06-04] MEDS: Nystatin Powder 15gm Bottle 1 APPLIC TOPICAL ×2 (05:41→17:38)
[2021-06-04] MEDS: Sertraline 100 MG Tablet PO (05:42)
[2021-06-04 06:55] LABS: Bedside Glucose 105 mg/dL (74-106)
[2021-06-04] MEDS: Potassium Chloride Oral Tablet 20 MEQ PO (08:23)
[2021-06-04] MEDS: Aspirin E.C. 81 MG Tablet PO (08:23)
[2021-06-04] MEDS: metFORMIN HCl 1,000 MG Tablet 1000 MG PO ×2 (08:23→17:36)
[2021-06-04] MEDS: Ferrous Sulfate 325 MG Tablet PO ×2 (08:24→17:36)
[2021-06-04] MEDS: Calcium Carb/Vitamin D 1 TABLET Tablet PO (08:25)
[2021-06-04] MEDS: traMADol 50 MG Tablet PO (12:51)
[2021-06-04 15:53] VITALS: BP 159/54; PULSE 73; RESP 18; TEMP 36; O2SAT 96
[2021-06-04 16:16] LABS: Bedside Glucose 115 mg/dL (74-106)
[2021-06-04 17:36] VITALS: BP 159/54; PULSE 74
[2021-06-04] MEDS: Atorvastatin Calcium 20 MG Tablet PO (21:12)
[2021-06-04] MEDS: Glucerna Shake 120 ML LIQUID PO (21:13)
[2021-06-05] MEDS: Acetaminophen 500 MG Tablet 1000 MG PO ×3 (05:13→21:24)
[2021-06-05] MEDS: busPIRone 5 MG Tablet 10 MG PO ×3 (05:13→21:21)
[2021-06-05] MEDS: Clopidogrel Bisulfate 75 MG Tablet PO (05:13)
[2021-06-05 05:14] VITALS: BP 144/68; PULSE 75
[2021-06-05] MEDS: Pantoprazole Sodium 40 MG Tablet PO (05:14)
[2021-06-05] MEDS: Sertraline 100 MG Tablet PO (05:14)
[2021-06-05] MEDS: Metoprolol Tartrate 25 MG Tablet 12.5 MG PO ×2 (05:14→17:35)
[2021-06-05] MEDS: Furosemide 40 MG Tablet PO (05:14)
[2021-06-05] MEDS: Nystatin Powder 15gm Bottle 1 APPLIC TOPICAL ×2 (05:15→17:38)
[2021-06-05] MEDS: Menthol/Lanolin/Calamine/Znox 113 GM Tube 1 APPLIC TOPICAL ×2 (05:19→17:37)
[2021-06-05 06:46] LABS: Bedside Glucose 100 mg/dL (74-106)
[2021-06-05] MEDS: Calcium Carb/Vitamin D 1 TABLET Tablet PO (09:03)
[2021-06-05] MEDS: Potassium Chloride Oral Tablet 20 MEQ PO (09:03)
[2021-06-05] MEDS: Ferrous Sulfate 325 MG Tablet PO ×2 (09:03→17:35)
[2021-06-05] MEDS: metFORMIN HCl 1,000 MG Tablet 1000 MG PO ×2 (09:03→17:38)
[2021-06-05] MEDS: Aspirin E.C. 81 MG Tablet PO (09:03)
[2021-06-05 10:12] VITALS: O2SAT 96
[2021-06-05] MEDS: traMADol 50 MG Tablet PO (11:20)
[2021-06-05 14:57] VITALS: BP 123/60; PULSE 85; RESP 14; TEMP 36.4; O2SAT 96
[2021-06-05 17:35] VITALS: BP 123/60; PULSE 85
[2021-06-05] MEDS: Glucerna Shake 120 ML LIQUID PO (21:21)
[2021-06-05] MEDS: Atorvastatin Calcium 20 MG Tablet PO (21:22)
[2021-06-05 21:30] VITALS: PULSE 75; RESP 16; O2SAT 94
[2021-06-06 05:32] LABS: Absolute Lymphocyte Count 1.57 X10^3/uL (0.83-4.51); Absolute Neutrophil Count 5.2 X10^3/uL (2.0-7.7); Basophil# 0.02 X10^3/uL; Basophil% 0.3 % (0-1); Eosinophil# 0.08 X10^3/uL; Hematocrit 32.5 % (37-47); Hemoglobin 10.6 g/dL (12.0-15.0); Lymphocyte # 1.57 X10^3/ul (0.83-4.51); Lymphocyte % 20.6 % (19-41); Mean Corp Hgb Conc 32.6 g/dL (32-36); Mean Corpuscular Hgb 29.9 pg (27.0-32.0); Mean Corpuscular Volume 91.8 fL (81-99); Mean Platelet Vol. 8.4 fl (6.2-12.0); Monocyte# 0.71 X10^3/uL; Monocyte% 9.3 % (0-10); NRBC Flagged by Analyzer 0 % (0-5); Neutrophil # 5.21 X10^3/uL (2.7-7.7); Neutrophil % 68.3 % (47-70); Platelet Count 295 K/mm3 (150-450); RBC Distribution Width CV 15.6 % (11.6-14.6); Red Blood Count 3.54 M/mm3 (4.2-5.4); White Blood Count 7.6 K/mm3 (4.4-11.0)
[2021-06-06] MEDS: Menthol/Lanolin/Calamine/Znox 113 GM Tube 1 APPLIC TOPICAL ×2 (05:42→17:48)
[2021-06-06 05:43] VITALS: BP 124/57; PULSE 68
[2021-06-06] MEDS: Sertraline 100 MG Tablet PO (05:43)
[2021-06-06] MEDS: Clopidogrel Bisulfate 75 MG Tablet PO (05:43)
[2021-06-06] MEDS: Pantoprazole Sodium 40 MG Tablet PO (05:43)
[2021-06-06] MEDS: Metoprolol Tartrate 25 MG Tablet 12.5 MG PO ×2 (05:43→17:47)
[2021-06-06] MEDS: Furosemide 40 MG Tablet PO (05:44)
[2021-06-06] MEDS: busPIRone 5 MG Tablet 10 MG PO ×3 (05:44→20:09)
[2021-06-06] MEDS: Acetaminophen 500 MG Tablet 1000 MG PO ×3 (05:44→20:13)
[2021-06-06] MEDS: Nystatin Powder 15gm Bottle 1 APPLIC TOPICAL ×2 (05:49→17:48)
[2021-06-06 05:57] LABS: Anion Gap 4 (5-15); BUN 22 mg/dL (7-18); BUN/Creat Ratio 22.4 RATIO (10-20); Calcium,Total 8.8 mg/dL (8.5-10.1); Chloride 103 mmol/L (98-107); Creatinine, Serum 0.98 mg/dL (0.55-1.02); EST Glomerular Filtration Rate 58 mL/min (>60); Est Glom Filt Rate - Afr Amer 70 mL/min (>60); Estimated Creatinine Clearance 48.92 ml/min; Glucose 97 mg/dL (74-106); Potassium 4.3 mmol/L (3.5-5.1); Sodium Level 138 mmol/L (136-145)
[2021-06-06 06:36] LABS: Bedside Glucose 100 mg/dL (74-106)
[2021-06-06] MEDS: Calcium Carb/Vitamin D 1 TABLET Tablet PO (07:50)
[2021-06-06] MEDS: Ferrous Sulfate 325 MG Tablet PO ×2 (07:50→17:47)
[2021-06-06] MEDS: Aspirin E.C. 81 MG Tablet PO (07:50)
[2021-06-06] MEDS: Potassium Chloride Oral Tablet 20 MEQ PO (07:50)
[2021-06-06] MEDS: metFORMIN HCl 1,000 MG Tablet 1000 MG PO ×2 (07:50→17:49)
[2021-06-06 10:00] VITALS: PULSE 67; RESP 18; O2SAT 97
[2021-06-06] MEDS: traMADol 50 MG Tablet PO (12:24)
[2021-06-06 14:11] VITALS: BP 136/63; PULSE 82; RESP 15; TEMP 36.1; O2SAT 97
[2021-06-06 17:47] VITALS: BP 130/57; PULSE 73
[2021-06-06] MEDS: Senna/Docusate Sodium 1 Tablet 2 TABLET PO (17:48)
[2021-06-06] MEDS: Atorvastatin Calcium 20 MG Tablet PO (20:12)
[2021-06-06] MEDS: Glucerna Shake 120 ML LIQUID PO (20:24)
[2021-06-07] MEDS: Clopidogrel Bisulfate 75 MG Tablet PO (05:59)
[2021-06-07] MEDS: Furosemide 40 MG Tablet PO (05:59)
[2021-06-07] MEDS: Sertraline 100 MG Tablet PO (05:59)
[2021-06-07] MEDS: Pantoprazole Sodium 40 MG Tablet PO (05:59)
[2021-06-07 06:00] VITALS: BP 137/63; PULSE 73
[2021-06-07] MEDS: Metoprolol Tartrate 25 MG Tablet 12.5 MG PO ×2 (06:00→17:06)
[2021-06-07] MEDS: busPIRone 5 MG Tablet 10 MG PO ×3 (06:02→20:44)
[2021-06-07] MEDS: Menthol/Lanolin/Calamine/Znox 113 GM Tube 1 APPLIC TOPICAL ×2 (06:02→17:04)
[2021-06-07] MEDS: Nystatin Powder 15gm Bottle 1 APPLIC TOPICAL ×2 (06:03→17:04)
[2021-06-07] MEDS: Acetaminophen 500 MG Tablet 1000 MG PO ×3 (06:03→20:45)
[2021-06-07 06:26] LABS: Bedside Glucose 96 mg/dL (74-106)
[2021-06-07 07:05] VITALS: O2SAT 100
[2021-06-07] MEDS: metFORMIN HCl 1,000 MG Tablet 1000 MG PO ×2 (08:00→17:05)
[2021-06-07] MEDS: Calcium Carb/Vitamin D 1 TABLET Tablet PO (08:00)
[2021-06-07] MEDS: Ferrous Sulfate 325 MG Tablet PO ×2 (08:00→17:06)
[2021-06-07] MEDS: Aspirin E.C. 81 MG Tablet PO (08:00)
[2021-06-07] MEDS: Potassium Chloride Oral Tablet 20 MEQ PO (08:00)
[2021-06-07] MEDS: traMADol 50 MG Tablet PO (11:57)
[2021-06-07] MEDS: Loperamide 2 MG Capsule PO (12:00)
--- NOTE | 2021-06-07 12:40 | NURSING ---
Reports having loose stool and asks for Immodium. She is also requesting that stool softeners be made prn instead of scheduled. Has emesis after lunch. Reports this being a chronic problem and she believes that it was because she ate her pizza too fast at lunchtime.
--- NOTE | 2021-06-07 15:36 | CASEMGMT ---
Social Work Insurance issued LCD 06/09, DC 06/10. Pt and dtr in room. Notified of DC date. Pt agreeable. Pt requesting w/c w/elevating leg rests and 3-in-1 commode. to purchase pediatric FWW. Provided skilled HHC list. [facility] Referral made for PT/OT. Family to transport. Referral made to [facility] for DME. Plan: DC home with 06/10, [facility] PT/OT, w/c, [facility] Kinga Keyes, WASTE MINIMIZATION TECHNICIAN CAPACITY PLANNING ANALYST
[2021-06-07 15:41] VITALS: BP 134/58; PULSE 83; RESP 16; TEMP 36.1; O2SAT 95
[2021-06-07 17:06] VITALS: PULSE 83
[2021-06-07 20:00] VITALS: PULSE 74; RESP 16; O2SAT 95
[2021-06-07] MEDS: Atorvastatin Calcium 20 MG Tablet PO (20:45)
[2021-06-07] MEDS: Glucerna Shake 120 ML LIQUID PO (20:47)
[2021-06-08] MEDS: busPIRone 5 MG Tablet 10 MG PO ×3 (06:24→21:10)
[2021-06-08] MEDS: Furosemide 40 MG Tablet PO (06:24)
[2021-06-08] MEDS: Clopidogrel Bisulfate 75 MG Tablet PO (06:24)
[2021-06-08] MEDS: Pantoprazole Sodium 40 MG Tablet PO (06:24)
[2021-06-08] MEDS: Sertraline 100 MG Tablet PO (06:24)
[2021-06-08] MEDS: Acetaminophen 500 MG Tablet 1000 MG PO ×3 (06:24→21:10)
[2021-06-08 06:25] VITALS: BP 142/57; PULSE 73
[2021-06-08] MEDS: Metoprolol Tartrate 25 MG Tablet 12.5 MG PO ×2 (06:25→16:38)
[2021-06-08] MEDS: Menthol/Lanolin/Calamine/Znox 113 GM Tube 1 APPLIC TOPICAL ×2 (06:26→16:40)
[2021-06-08] MEDS: Nystatin Powder 15gm Bottle 1 APPLIC TOPICAL ×2 (06:28→16:39)
[2021-06-08 06:36] LABS: Bedside Glucose 94 mg/dL (74-106)
--- NOTE | 2021-06-08 07:56 | PCM.DC.SUM ---
Providers Date of Admission: 05/22/21 Primary Care Physician: Dr. Michele Lang MD Reason For Visit: LEFT HIP FX Diagnosis Discharge Diagnosis (1) Debility: Status: Acute Code(s): R53.81 - Other malaise (2) Fall: Status: Acute Code(s): W19.XXXA - Unspecified fall, initial encounter (3) Closed left hip fracture: Status: Resolved Code(s): S72.002A - Fracture of unspecified part of neck of left femur, initial encounter for closed fracture Qualifiers: Encounter type: initial encounter Qualified Code(s): S72.002A - Fracture of unspecified part of neck of left femur, initial encounter for closed fracture (4) Iron deficiency anemia: Status: Chronic Code(s): D50.9 - Iron deficiency anemia, unspecified (5) Blood loss anemia: Status: Acute Code(s): D50.0 - Iron deficiency anemia secondary to blood loss (chronic) (6) Diabetes mellitus: Status: Acute Code(s): E11.9 - Type 2 diabetes mellitus without complications (7) Coronary artery disease: Status: Acute Code(s): I25.10 - Atherosclerotic heart disease of [place] coronary artery without angina pectoris (8) Hypertension: Status: Chronic Code(s): I10 - Essential (primary) hypertension (9) Hyperlipidemia: Status: Acute Code(s): E78.5 - Hyperlipidemia, unspecified (10) Gastroesophageal reflux disease: Status: Acute Code(s): K21.9 - Gastro-esophageal reflux disease without esophagitis (11) Sleep apnea: Status: Acute Code(s): G47.30 - Sleep apnea, unspecified (12) Pancreatitis: Status: Acute Code(s): K85.90 - Acute pancreatitis without necrosis or infection, unspecified (13) Right bundle branch block: Status: Acute Code(s): I45.10 - Unspecified right bundle-branch block (14) Anxiety: Status: Acute Code(s): F41.9 - Anxiety disorder, unspecified (15) Hypokalemia: Status: Acute Code(s): E87.6 - Hypokalemia (16) Depression: Status: Acute Code(s): F32.A - Depression, unspecified Medications at Discharge Home Medications calcium carbonate 600 mg-vitamin D3 5 mcg (200 unit) tablet 1 tab PO QDAY 07/22/17 metformin 500 mg tablet 1,000 mg PO BIDCM 07/22/17 aspirin 81 mg tablet,delayed release 81 mg PO DAILY 07/24/18 buspirone 10 mg tablet 10 mg PO TID tab 04/18/21 sertraline 100 mg tablet 100 mg PO DAILY 04/18/21 fenofibrate 160 mg PO DAILY 05/18/21 furosemide 40 mg PO DAILY 05/18/21 alprazolam 0.25 mg PO TID 05/22/21 clopidogrel 75 mg PO DAILY 05/22/21 metoprolol tartrate 12.5 mg PO BID 05/22/21 potassium chloride 20 meq PO DAILY 05/22/21 rosuvastatin [Crestor] 10 mg PO DAILY 05/22/21 acetaminophen 1,000 mg PO TID #0 tab 06/08/21 ferrous sulfate 325 mg PO BID 30 Days #60 tab 06/08/21 furosemide 40 mg PO DAILY #0 tab 06/08/21 pantoprazole 40 mg PO DAILY 30 Days #30 tab 06/08/21 tramadol 50 mg PO Q6H PRN PRN 7 Days #28 tab 06/08/21 Hospital Course Operations - (Left hip intramedullary nail fixation.) Procedures None Summary of Care Provided Minutes Spent on Discharge: 35 Hospital Course: 81 year old female with below past medical history hospitalized for left hip fracture, underwent left hip intramedullary nail fixation 05/19/[address] Box, admitted to TCU with debility, here for rehabilitation, strengthening, prior to discharge home with . Discharge home with 06/10/2021, [facility] PT/OT, wheelchair, bedside commode. Physical Exam Const alert General Appearance: cooperative HEENT normocephalic Eyes PERRL and EOMs intact bilaterally Neck supple, no JVD and no carotid bruits Resp normal respiratory effort, normal air movement and clear to auscultation bilaterally Cardio regular rate and regular rhythm GI normal to inspection, nondistended, normoactive bowel sounds, non-tender and non-distended Extremity normal capillary refill General Extremity: Negative for edema Skin no rashes or lesions noted General Skin Exam: no breakdown Psych affect normal Appearance: appropriate Weight / BMI Weight Weight: 64.892 kg ABG / Lab / Microbiology Data Result Diagrams: 06/06/21 05:23 06/06/21 05:23 Laboratory: Laboratory Results - last 24 hr 06/08/21 06:13: POC Glucose 94 Microbiology: Microbiology 06/01/21 12:26 Nasal Secretion SARS-CoV-2 Antigen (Rapid) - Final 05/29/21 23:50 Urine, Catheterized Urine Culture - Final Culture exhibits no growth. 05/29/21 08:00 Nasal Secretion SARS-CoV-2 Antigen (Rapid) - Final 05/22/21 23:30 Nasal Secretion SARS-CoV-2 Antigen (Rapid) - Final D/C Instructions Discharge Diet: No restrictions Discharge Activity: Return to Normal Activity, May Shower and Use Walker Weight Bearing Status: Weight bearing as tolerated Call your doctor if your incision/area has: Continuous Slow Oozing, Sudden Increased Bleeding, Increased Pain/ Swelling, Increased Redness, Foul Smelling Discharge and Swelling at the incision site Call your doctor if you observe: Fever of 101 or Higher, Inability to urinate, Inability to have a bowel movement, Shortness of breath, Dizziness, Fainting spells, Swelling in the ankles, Chest pain and Uncontrolled pain Additional Instructions: Discharge home with 06/10/2021, [facility] PT/OT, wheelchair, bedside commode. Please Follow Up With: Hugh Box DO (will see Zechariah ESCOBAR) When: As scheduled. Meaningful Use Info Meaningful Use Diagnoses (Choose all that apply): None applicable Discharge Plan Admission Admit Date/Time: 05/22/21 20:10 Primary Reason for Your Visit: Debility. Attending Provider: Shaun Hartley Chi Primary Care Provider: Michele Lang Instructions Additional Instructions / Restrictions: Discharge home with 06/10/2021, [facility] PT/OT, wheelchair, bedside commode. Discharge Orders/Prescriptions Prescriptions: New furosemide 40 mg Tablet 40 mg PO DAILY Qty: 0 RF: 0 tramadol 50 mg Tablet 50 mg PO Q6H PRN PRN (Reason: Pain Score 4-5) 7 Days Qty: 28 RF: 0 acetaminophen 500 mg Tablet 1,000 mg PO TID Qty: 0 RF: 0 pantoprazole 40 mg Tablet,Delayed Release (Dr/Ec) 40 mg PO DAILY 30 Days Qty: 30 RF: 0 Continued calcium carbonate-vitamin D3 [Calcium 600 + D(3)] 600 mg(1,500mg) -200 unit tablet 1 tab PO QDAY RF: 0 aspirin [Adult Aspirin Regimen] 81 mg tablet,delayed release (DR/EC) 81 mg PO DAILY RF: 0 sertraline [Zoloft] 100 mg tablet 100 mg PO DAILY RF: 0 buspirone 10 mg tablet 10 mg PO TID RF: 0 metformin 500 mg tablet 1,000 mg PO BIDCM RF: 0 fenofibrate 160 mg tablet 160 mg PO DAILY RF: 0 furosemide 40 mg tablet 40 mg PO DAILY RF: 0 potassium chloride 10 mEq tablet extended release 20 meq PO DAILY RF: 0 clopidogrel 75 mg tablet 75 mg PO DAILY RF: 0 alprazolam 0.25 mg tablet 0.25 mg PO TID RF: 0 rosuvastatin [Crestor] 10 mg tablet 10 mg PO DAILY RF: 0 metoprolol tartrate 25 mg tablet 12.5 mg PO BID RF: 0 ferrous sulfate 325 mg (65 mg iron) tablet 325 mg PO BID 30 Days Qty: 60 RF: 0 Discontinued loperamide 2 mg Capsule 2 mg PO Q6H PRN PRN (Reason: Diarrhea) Qty: 0 RF: 0 oxycodone 5 mg Tablet 5 mg PO Q4H PRN PRN (Reason: Pain Score 4-10) 7 Days Qty: 15 RF: 0 furosemide 40 mg tablet 40 mg PO DAILY RF: 0 sennosides-docusate sodium [Stool Softener-Stimulant Laxat] 8.6-50 mg tablet 2 tab PO BID RF: 0 lisinopril 5 mg tablet 5 mg PO DAILY RF: 0 Referrals / Follow Up: Michele Lang MD [Primary Care Provider] - Disposition Disposition (needs filled in before D/C Order can be placed): Home Health Service
[2021-06-08] MEDS: Potassium Chloride Oral Tablet 20 MEQ PO (08:24)
[2021-06-08] MEDS: Aspirin E.C. 81 MG Tablet PO (08:24)
[2021-06-08] MEDS: Calcium Carb/Vitamin D 1 TABLET Tablet PO (08:24)
[2021-06-08] MEDS: Ferrous Sulfate 325 MG Tablet PO ×2 (08:24→16:37)
[2021-06-08] MEDS: metFORMIN HCl 1,000 MG Tablet 1000 MG PO ×2 (08:24→16:37)
[2021-06-08] MEDS: traMADol 50 MG Tablet PO (10:41)
[2021-06-08 14:45] VITALS: BP 123/52; PULSE 73; RESP 16; TEMP 36.4; O2SAT 90
--- NOTE | 2021-06-08 15:29 | MDS.RN ---
Completed pain interview for MARLEEN 06/10/21
[2021-06-08 16:38] VITALS: PULSE 73
[2021-06-08] MEDS: Glucerna Shake 120 ML LIQUID PO (21:09)
[2021-06-08] MEDS: Atorvastatin Calcium 20 MG Tablet PO (21:11)
[2021-06-09] MEDS: Clopidogrel Bisulfate 75 MG Tablet PO (06:14)
[2021-06-09] MEDS: Sertraline 100 MG Tablet PO (06:14)
[2021-06-09] MEDS: Pantoprazole Sodium 40 MG Tablet PO (06:15)
[2021-06-09] MEDS: Furosemide 40 MG Tablet PO (06:15)
[2021-06-09] MEDS: busPIRone 5 MG Tablet 10 MG PO ×3 (06:15→22:31)
[2021-06-09] MEDS: Acetaminophen 500 MG Tablet 1000 MG PO ×3 (06:15→22:30)
[2021-06-09 06:16] VITALS: BP 140/60; PULSE 70
[2021-06-09] MEDS: Metoprolol Tartrate 25 MG Tablet 12.5 MG PO ×2 (06:16→18:44)
[2021-06-09] MEDS: Menthol/Lanolin/Calamine/Znox 113 GM Tube 1 APPLIC TOPICAL ×2 (06:17→18:46)
[2021-06-09] MEDS: Nystatin Powder 15gm Bottle 1 APPLIC TOPICAL ×2 (06:18→18:46)
[2021-06-09 06:21] LABS: Bedside Glucose 96 mg/dL (74-106)
[2021-06-09 08:09] VITALS: O2SAT 96
[2021-06-09] MEDS: Aspirin E.C. 81 MG Tablet PO (08:26)
[2021-06-09] MEDS: Ferrous Sulfate 325 MG Tablet PO ×2 (08:26→18:44)
[2021-06-09] MEDS: Potassium Chloride Oral Tablet 20 MEQ PO (08:26)
[2021-06-09] MEDS: traMADol 50 MG Tablet PO (08:26)
[2021-06-09] MEDS: Calcium Carb/Vitamin D 1 TABLET Tablet PO (08:26)
[2021-06-09] MEDS: metFORMIN HCl 1,000 MG Tablet 1000 MG PO ×2 (08:27→18:44)
--- NOTE | 2021-06-09 09:35 | CASEMGMT ---
Social Work BIMS and PHQ-9 completed for MDS assessment. Kinga Keyes, SUPERINTENDENT AUTOMOTIVE DIRECTOR CORPORATE COMMUNICATIONS
--- NOTE | 2021-06-09 11:15 | NURSING ---
Patient returned from Ortho appt. To follow up in 3 weeks with X-rays. Continue with Tylenol, Tramadol for pain prn. Continue with ASA, plavix as prescribed.
[2021-06-09 11:49] VITALS: PULSE 54; RESP 16; O2SAT 95
[2021-06-09 15:51] VITALS: BP 125/63; PULSE 77; RESP 18; TEMP 36; O2SAT 97
[2021-06-09 18:44] VITALS: BP 128/91; PULSE 84
[2021-06-09 19:32] VITALS: O2SAT 96
[2021-06-09] MEDS: Glucerna Shake 120 ML LIQUID PO (22:30)
[2021-06-09] MEDS: Atorvastatin Calcium 20 MG Tablet PO (22:31)
[2021-06-10] MEDS: Nystatin Powder 15gm Bottle 1 APPLIC TOPICAL (06:08)
[2021-06-10] MEDS: Menthol/Lanolin/Calamine/Znox 113 GM Tube 1 APPLIC TOPICAL (06:08)
[2021-06-10 06:10] VITALS: BP 145/62; PULSE 71
[2021-06-10] MEDS: Sertraline 100 MG Tablet PO (06:10)
[2021-06-10] MEDS: Pantoprazole Sodium 40 MG Tablet PO (06:10)
[2021-06-10] MEDS: Metoprolol Tartrate 25 MG Tablet 12.5 MG PO (06:10)
[2021-06-10] MEDS: busPIRone 5 MG Tablet 10 MG PO (06:10)
[2021-06-10] MEDS: Clopidogrel Bisulfate 75 MG Tablet PO (06:10)
[2021-06-10] MEDS: Furosemide 40 MG Tablet PO (06:10)
[2021-06-10] MEDS: Acetaminophen 500 MG Tablet 1000 MG PO (06:11)
[2021-06-10 06:41] LABS: Bedside Glucose 91 mg/dL (74-106)
[2021-06-10] MEDS: Potassium Chloride Oral Tablet 20 MEQ PO (08:50)
[2021-06-10] MEDS: Ferrous Sulfate 325 MG Tablet PO (08:50)
[2021-06-10] MEDS: Calcium Carb/Vitamin D 1 TABLET Tablet PO (08:50)
[2021-06-10] MEDS: Aspirin E.C. 81 MG Tablet PO (08:50)
[2021-06-10] MEDS: metFORMIN HCl 1,000 MG Tablet 1000 MG PO (08:50)
[2021-06-10 11:01] VITALS: BP 129/62; PULSE 72; RESP 18; TEMP 37; O2SAT 96
== END 2021-06-10 11:00 | disposition home health service (06) | DRG 561 ==
PROVIDERS: Admitting Provider Family Medicine Geriatric Medicine; PCP Family Medicine; Visit Provider Family Medicine Geriatric Medicine
DX: S72.002D Fracture of unspecified part of neck of left femur, subsequent encounter for closed fracture with routine healing (principal); E11.9 Type 2 diabetes mellitus without complications; D50.0 Iron deficiency anemia secondary to blood loss (chronic); E78.5 Hyperlipidemia, unspecified; F41.9 Anxiety disorder, unspecified; I25.10 Atherosclerotic heart disease of native coronary artery without angina pectoris; G47.33 Obstructive sleep apnea (adult) (pediatric); I10 Essential (primary) hypertension; K21.9 Gastro-esophageal reflux disease without esophagitis; W19.XXXD Unspecified fall, subsequent encounter; I45.10 Unspecified right bundle-branch block; F32.A Depression, unspecified; Z79.82 Long term (current) use of aspirin; Z79.84 Long term (current) use of oral hypoglycemic drugs; Z79.899 Other long term (current) drug therapy; Z79.02 Long term (current) use of antithrombotics/antiplatelets
CPT/HCPCS: 36415; 74018; 80048; 81001; 82962; 85025; 86850; 86900; 86901; 86920; 86922; 87086; 87426; 87811; 92610; 97110; 97116; 97162; 97166; 97530; 97535; 97802; J7030; P9016; A4216

== ENCOUNTER 2021-05-23 12:04 | Outpatient (CLI) | payer MEDICARE, SELFPAY ==
[2021-05-23 12:07] VITALS: BP 141/56; PULSE 96; RESP 16; TEMP 36.3; O2SAT 92
[2021-05-23] MEDS: 0.9% NaCl Peripheral Flush Adult/Peds IV ×2 (12:18→16:11)
[2021-05-23 12:37] VITALS: BP 137/60; PULSE 99; RESP 16; TEMP 35.9; O2SAT 92
[2021-05-23 13:34] VITALS: BP 130/54; PULSE 92; RESP 16; TEMP 36.2; O2SAT 93
[2021-05-23] MEDS: Furosemide 20 MG/2 ML VIAL IV (14:03)
[2021-05-23 14:28] VITALS: BP 157/66; PULSE 99; RESP 16; TEMP 36; O2SAT 93
[2021-05-23 15:30] VITALS: BP 149/64; PULSE 100; RESP 16; TEMP 36; O2SAT 92
[2021-05-23 16:04] VITALS: BP 149/66; PULSE 98; RESP 16; TEMP 36.2; O2SAT 92
== END 2021-05-23 23:59 | disposition home or self-care (01) ==
LOC: MEDOUTP 12:05
PROVIDERS: PCP Family Medicine; Referring Provider Family Medicine Geriatric Medicine; Visit Provider Family Medicine Geriatric Medicine
DX: D64.89 Other specified anemias (principal)
CPT/HCPCS: 36430; 86850; 86900; 86901; 86920; 86922; J7040; P9016; A4216; J1940

== ENCOUNTER 2021-06-19 10:20 | Outpatient (CLI) | payer MEDICARE, SELFPAY ==
[2021-06-19 12:09] LABS: Absolute Lymphocyte Count 1.08 X10^3/uL (0.83-4.51); Absolute Neutrophil Count 5.4 X10^3/uL (2.0-7.7); Basophil# 0.01 X10^3/uL; Basophil% 0.1 % (0-1); Eosinophil# 0.07 X10^3/uL; Hematocrit 36.4 % (37-47); Hemoglobin 11.6 g/dL (12.0-15.0); Lymphocyte # 1.08 X10^3/ul (0.83-4.51); Lymphocyte % 14.9 % (19-41); Mean Corp Hgb Conc 31.9 g/dL (32-36); Mean Corpuscular Hgb 29.8 pg (27.0-32.0); Mean Corpuscular Volume 93.6 fL (81-99); Mean Platelet Vol. 8.9 fl (6.2-12.0); Monocyte# 0.64 X10^3/uL; Monocyte% 8.8 % (0-10); NRBC Flagged by Analyzer 0 % (0-5); Neutrophil # 5.42 X10^3/uL (2.7-7.7); Neutrophil % 74.8 % (47-70); Platelet Count 281 K/mm3 (150-450); RBC Distribution Width CV 15.9 % (11.6-14.6); RBC Distribution Width SD 55.2 fl (35.1-43.9); Red Blood Count 3.89 M/mm3 (4.2-5.4); White Blood Count 7.3 K/mm3 (4.4-11.0)
[2021-06-19 12:20] LABS: Vitamin B12 191 pg/mL (211-911); Vitamin D,25 Hydroxy 48.2 ng/mL
[2021-06-19 12:41] LABS: ALB/GLOB Ratio 0.8 RATIO (0.9-2.4); AST(SGOT) 29 U/L (15-37); Alanine Aminotransfer ALT/SGPT 19 U/L (13-56); Albumin, Serum 3.4 g/dL (3.2-5.0); Alkaline Phosphatase 132 U/L (45-117); Anion Gap 8 (5-15); BUN 18 mg/dL (7-18); BUN/Creat Ratio 14.6 RATIO (10-20); Calcium,Total 9.7 mg/dL (8.5-10.1); Chloride 97 mmol/L (98-107); Cholesterol 155 mg/dL (200); Creatinine, Serum 1.23 mg/dL (0.55-1.02); EST Glomerular Filtration Rate 45 mL/min (>60); Est Glom Filt Rate - Afr Amer 54 mL/min (>60); Ferritin 312 ng/mL (8-252); Glucose 167 mg/dL (74-106); High Density Lipoprotein 39 mg/dL; Iron 94 ug/dL (50-170); Iron Binding Capacity,Total 323 ug/dL (250-450); Potassium 3.6 mmol/L (3.5-5.1); Protein, Total 7.4 g/dL (6.4-8.2); Sodium Level 135 mmol/L (136-145); Triglycerides 228 mg/dL; Very Low Density Lipoprotein 46 mg/dL (5-40)
[2021-06-19 13:21] LABS: Hemoglobin A1c 5.6 % (3.8-5.6)
== END 2021-06-19 23:59 | disposition home or self-care (01) ==
LOC: MFPLAB 10:20
PROVIDERS: PCP Family Medicine; Visit Provider Family Medicine
DX: D64.9 Anemia, unspecified (principal); E11.69 Type 2 diabetes mellitus with other specified complication; E55.9 Vitamin D deficiency, unspecified
CPT/HCPCS: 36415; 80053; 80061; 82306; 82607; 82728; 82746; 83036; 83540; 83550; 85025

== ENCOUNTER 2021-06-21 11:09 | Outpatient (CLI) | payer MEDICARE, SELFPAY ==
[2021-06-21 12:42] LABS: Protein, Urine (Random) < 6.0 mg/dL (<11.9)
== END 2021-06-21 23:59 | disposition home or self-care (01) ==
LOC: MFPLAB 11:11
PROVIDERS: PCP Family Medicine; Referring Provider Family Medicine; Visit Provider Family Medicine
DX: N18.30 Chronic kidney disease, stage 3 unspecified (principal)
CPT/HCPCS: 82570; 84156

== ENCOUNTER → 2021-08-04 | Outpatient (CLI) | payer MEDICARE, SELFPAY ==
--- NOTE | 2021-08-04 11:30 | RAD_ITS ---
STUDY: X-RAY - RIGHT KNEE REASON FOR EXAM: Female, 81 years old. Knee pain. TECHNIQUE: 4 view(s) of the knee. COMPARISON: None. FINDINGS: Osteopenia. Normal visualized distal femur. Normal visualized proximal tibia and fibula. Normal proximal tibiofibular articulation. Mild arthrosis of the medial femorotibial compartment with small osteophytes. Mild arthrosis of the lateral femorotibial compartment. Mild arthrosis of the patellofemoral compartment. The soft tissue structures are unremarkable. RAD/Knee 4 or More Views IMPRESSION: Osteopenia with mild tricompartmental arthrosis, most marked medially. No acute abnormality, chondrocalcinosis, erosive changes or periostitis. Electronically Signed: Elvis Carvajal MD at 11:55 EDT ,
--- NOTE | 2021-08-04 11:30 | RAD_ITS ---
STUDY: X-RAY - LEFT KNEE REASON FOR EXAM: Female, 81 years old. Knee pain. TECHNIQUE: 4 view(s) of the knee. COMPARISON: None. FINDINGS: Osteopenia. Normal visualized distal femur. Normal visualized proximal tibia and fibula. Normal proximal tibiofibular articulation. Mild arthrosis of the medial femorotibial compartment with small osteophytes. Mild arthrosis of the lateral femorotibial compartment. Mild arthrosis of the patellofemoral compartment. The soft tissue structures are unremarkable. RAD/Knee 4 or More Views IMPRESSION: Osteopenia with mild tricompartmental arthrosis, most marked medially. No acute abnormality, chondrocalcinosis, erosive changes or periostitis. Electronically Signed: Elvis Carvajal MD at 11:55 EDT ,
[2021-08-04 12:18] LABS: Absolute Lymphocyte Count 1.18 X10^3/uL (0.83-4.51); Absolute Neutrophil Count 4.5 X10^3/uL (2.0-7.7); Basophil# 0.01 X10^3/uL; Basophil% 0.2 % (0-1); Eosinophil# 0.03 X10^3/uL; Eosinophils% 0.5 % (0-5); Hematocrit 35.3 % (37-47); Hemoglobin 11.3 g/dL (12.0-15.0); Lymphocyte # 1.18 X10^3/ul (0.83-4.51); Mean Corpuscular Volume 93.6 fL (81-99); Monocyte# 0.45 X10^3/uL; Monocyte% 7.3 % (0-10); NRBC Flagged by Analyzer 0 % (0-5); Neutrophil # 4.51 X10^3/uL (2.7-7.7); Neutrophil % 72.7 % (47-70); Platelet Count 352 K/mm3 (150-450); RBC Distribution Width CV 13.4 % (11.6-14.6); Red Blood Count 3.77 M/mm3 (4.2-5.4); White Blood Count 6.2 K/mm3 (4.4-11.0)
[2021-08-04 12:44] LABS: Hemoglobin A1c 6.2 % (3.8-5.6)
[2021-08-04 12:52] LABS: Vitamin B12 680 pg/mL (211-911); Vitamin D,25 Hydroxy 41.4 ng/mL
[2021-08-04 12:53] LABS: PTHIN 14.6 pg/mL (18.4-80.1)
[2021-08-04 13:03] LABS: AST(SGOT) 43 U/L (15-37); Alanine Aminotransfer ALT/SGPT 22 U/L (13-56); Albumin, Serum 3.8 g/dL (3.2-5.0); Alkaline Phosphatase 87 U/L (45-117); Anion Gap 8 (5-15); BUN 27 mg/dL (7-18); BUN/Creat Ratio 19.4 RATIO (10-20); Calcium,Total 9.8 mg/dL (8.5-10.1); Chloride 99 mmol/L (98-107); Cholesterol 216 mg/dL (200); Creatinine, Serum 1.39 mg/dL (0.55-1.02); EST Glomerular Filtration Rate 39 mL/min (>60); Est Glom Filt Rate - Afr Amer 47 mL/min (>60); Ferritin 209 ng/mL (8-252); Globulin 3.9 g/dL (2.2-4.2); Glucose 135 mg/dL (74-106); High Density Lipoprotein 36 mg/dL; Iron 125 ug/dL (50-170); Iron Binding Capacity,Total 379 ug/dL (250-450); Phosphorus 3.1 mg/dL (2.5-4.9); Potassium 4.2 mmol/L (3.5-5.1); Protein, Total 7.7 g/dL (6.4-8.2); Sodium Level 134 mmol/L (136-145); Triglycerides 302 mg/dL; Very Low Density Lipoprotein 60 mg/dL (5-40)
== END | disposition home or self-care (01) ==
LOC: MTLAB 11:09
PROVIDERS: PCP Family Medicine; Referring Provider Family Medicine; Visit Provider Family Medicine
DX: M25.561 Pain in right knee (principal); E11.22 Type 2 diabetes mellitus with diabetic chronic kidney disease; N18.30 Chronic kidney disease, stage 3 unspecified; M25.562 Pain in left knee; D64.9 Anemia, unspecified; E55.9 Vitamin D deficiency, unspecified
CPT/HCPCS: 36415; 73564; 80053; 80061; 82043; 82306; 82570; 82607; 82728; 82746; 83036; 83540; 83550; 83970; 84100; 84156; 85025

== ENCOUNTER → 2021-08-11 | Outpatient (CLI) | payer MEDICARE, SELFPAY ==
[2021-08-11 16:51] LABS: Mucous, Urine 0 SEEN /hpf (<or=2+)
[2021-08-11 18:11] LABS: Color, Urine Yellow (Yellow); Glucose, Dipstick Normal (Normal); Ketone-Dipstick Negative (Negative); Leukocyte Esterase-Dipstick 25 /ul (Negative); Nitrite-Dipstick Negative (Negative); Occult Blood-Urine Negative /ul (Negative); Protein-Dipstick Negative (Negative); Specific Gravity, Urine 1.015 (1.002-1.030); Urine Bilirubin Dipstick Negative (Negative); Urine Clarity Sl. Cloudy (Clear); Urine Urobilinogen Normal (Normal)
[2021-08-11 18:41] LABS: Microalbumin,Random Urine < 5.0 mg/L (NO RANGE EST.); Protein, Urine (Random) 10.1 mg/dL (<11.9); Protein:Creat Ratio 123 mg/g CRE (0-200)
[2021-08-11 18:56] LABS: Bacteria 4+ /hpf (None Seen); Red Blood Cells-Urine 0-5 SEEN /hpf (0-5); Squamous Epithelial Cells - UA 0-5 SEEN /hpf (5-10); White Blood Cells 0-5 SEEN /hpf (0-5)
== END | disposition home or self-care (01) ==
LOC: LABSPEC 16:45
PROVIDERS: PCP Family Medicine; Referring Provider Family Medicine; Visit Provider Family Medicine
DX: E11.22 Type 2 diabetes mellitus with diabetic chronic kidney disease (principal); N18.30 Chronic kidney disease, stage 3 unspecified; D64.9 Anemia, unspecified; E55.9 Vitamin D deficiency, unspecified
CPT/HCPCS: 81001; 82043; 82570; 84156

== ENCOUNTER 2021-08-16 19:02 | Emergency (ER) | payer MEDICARE, SELFPAY ==
[2021-08-16 19:02] VITALS: BP 146/67; PULSE 85; RESP 18; TEMP 36.4; O2SAT 98; BMI 28.1
--- NOTE | 2021-08-16 19:23 | EDS_ITS ---
HPI HPI - Fall History of Present Illness Chief Complaint: Fall Occured/Mechanism Occurred: Today Mechanism/Context: Yes same level fall and Yes trip Narrative: wind blew me over while I was picking weeds Usually ambulates: Walker Pain/Injury Pain Location: head, face and other (knees scraped) Quality of Pain: - (sore) Current Severity: Mild Maximum Severity: Mild Worsened by: palpation Relieved by: leaving alone Associated Symptoms Associated Symptoms: Negative for Parasthesias, Weakness, Loss of function, Inability to ambulate, Loss of consciousness and Amnesia Narrative Narrative: Patient had a mechanical fall while outside and it was gusty, she felt over to the concrete versus her forehead/face, she has some pain there and a lot of bruising, she is on clopidogrel because of a history of stents, and she scraped her knees a little. She has been able to walk, she has no significant headache, no vision trouble, just pain where the injured area is. [facility] Medical History Atherosclerotic heart disease of [place] coronary artery without angina pectoris CPAP (continuous positive airway pressure) dependence Diabetes mellitus Essential (primary) hypertension Fracture of right wrist with routine healing GERD (gastroesophageal reflux disease) HLD (hyperlipidemia) Obesity KATTY (obstructive sleep apnea) Pancreatitis Right bundle branch block (RBBB) Sleep apnea Home Medications calcium carbonate 600 mg-vitamin D3 5 mcg (200 unit) tablet 1 tab PO QDAY 07/22/17 [History Last Taken 05/18/21] metformin 500 mg tablet 1,000 mg PO BIDCM 07/22/17 [History Last Taken 05/18/21] aspirin 81 mg tablet,delayed release 81 mg PO DAILY 07/24/18 [History Last Taken 05/18/21] buspirone 10 mg tablet 10 mg PO TID tab 04/18/21 [History Last Taken 05/18/21] sertraline 100 mg tablet 100 mg PO DAILY 04/18/21 [History Last Taken 05/18/21] fenofibrate 160 mg PO DAILY 05/18/21 [History Last Taken 05/18/21] furosemide 40 mg PO DAILY 05/18/21 [History Last Taken 05/18/21] alprazolam 0.25 mg PO TID 05/22/21 [History Last Taken Unknown] clopidogrel 75 mg PO DAILY 05/22/21 [History Last Taken Unknown] metoprolol tartrate 12.5 mg PO BID 05/22/21 [History Last Taken Unknown] potassium chloride 20 meq PO DAILY 05/22/21 [History Last Taken Unknown] rosuvastatin [Crestor] 10 mg PO DAILY 05/22/21 [History Last Taken Unknown] ferrous sulfate 325 mg PO BID 30 Days #60 tab 06/08/21 [Rx Last Taken Unknown] pantoprazole 40 mg PO DAILY 30 Days #30 tab 06/08/21 [Rx Last Taken Unknown] tramadol 50 mg PO Q6H PRN PRN 7 Days #28 tab 06/08/21 [Rx Last Taken Unknown] paroxetine HCl 40 mg PO DAILY 08/16/21 [History Last Taken Unknown] Allergy/AdvReac Type Severity Reaction Status Date / Time adhesive tape AdvReac Unknown Verified 08/16/21 19:04 morphine AdvReac Vomiting Verified 08/16/21 19:04 Rejuzys-REB-OfT Reductase AdvReac Pain in Verified 08/16/21 19:04 Inhibitor joints [Qjtokel-Deh-Epy Reductase Inhibitor] Family History Mother Hypertension Other CAD (coronary artery disease) Surgical History 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) History of coronary artery stent placement (11/17/14) Hx of appendectomy Hx of cholecystectomy Hx of hysterectomy Status post cardiac surgery Social History household members: spouse Smoking Status: Never smoker alcohol intake: never substance use type: does not use caffeine: Yes Type: carbonated beverages what type of physical activity do you participate in: none seatbelt use: always do you feel safe at home: Yes ROS ROS ED Constitutional Constitutional ED: Denies chills or fever(s) Eyes Eyes: Denies change in vision or diplopia ENT ENT ED: Reports facial pain; Denies ear pain, epistaxis or rhinorrhea Cardiovascular Cardiovascular: Denies chest pain or palpitations Respiratory/Chest Respiratory/Chest: Denies cough or dyspnea Gastrointestinal Gastrointestinal: Denies abdominal pain, diarrhea, melena, nausea or vomiting Genitourinary Genitourinary ED: Denies dysuria or hematuria Musculoskeletal Musculoskeletal: Denies back pain, extremity pain or neck pain Integumentary Reports Abrasions; Denies abscess, laceration or rash Neurologic Neurologic: Denies confusion, headache(s), paresthesias or weakness Hematologic/Lymphatic Hematologic/Lymphatic: Reports easy bleeding and easy bruising EXAM Physical Exam Const Vital Signs: 08/16/21 19:02 08/16/21 19:12 Temperature 97.5 F L Temperature Source Temporal Pulse Rate 85 Respiratory Rate 18 Respiratory Effort Normal Blood Pressure 146/67 H Blood Pressure Mean 93 Pulse Ox 98 Oxygen Delivery Method Room Air Positive well nourished and well developed General Appearance ED: well developed and NAD HEENT Reports TM's clear and nasal mucous membranes and turbinates normal HEENT Narrative: Large hematoma and tenderness mid lower forehead including nasal bridge without deformity or crepitance. No depression of the frontal bone. Midface stable, no maxillary or zygomatic tenderness. No epistaxis. Philtrum abrasion without laceration. Contusion to the lower lip, and contusion/abrasion mucosal surface of the inner lip without laceration or dental injury. No trismus. No malocclusion. No periorbital ecchymosis all of the hematoma/contusion is midline. Face and Sinus: facial tenderness Tympanic Membrane ED: Yes TM's clear Eyes PERRL and EOMs intact bilaterally Eyes Narrative: Both eyes/globes atraumatic Visual Acuity: other Other Details: no entrapment or pain with extraocular movements Neck full ROM and supple General: Negative for tenderness Chest Wall inspection of chest normal and palpation of chest normal Chest: symmetrical chest wall rise; Negative for crepitus or tenderness Resp normal respiratory effort and clear to auscultation bilaterally Percussion: other equal BS bilat Cardio no murmurs Rate: regular rate Rhythm: regular rhythm GI normal to inspection, nondistended, normoactive bowel sounds, soft to palpation and non-tender Back/Spine normal ROM Cervical Spine: Negative for cervical spine tenderness Thoracic Spine / Upper Back: Negative for thoracic spinal tenderness Lumbar Spine / Lower Back: Negative for lumbar spinal tenderness Extremity normal to inspection and full ROM Extremity Narrative: Minor abrasions anterior both knees, full range of motion without any bony/patella tenderness. Able to walk without difficulty. General Extremety ED: Negative for tenderness Neuro oriented x3, CN's II-XII intact bilaterally, moves all extremities, no focal motor deficits and no sensory deficits noted [place] Coma Scale: document GCS findings Spontaneous Obeys Commands Oriented 15 Sensorium / Orientation: awake and alert Psych mental status grossly normal and thought process normal Skin Skin Narrative: Facial and both knee abrasions. No other signs of trauma. See above. Lesions: no lesions Rashes: no rashes MDM MDM MDM Narrative Medical decision making narrative: CT of the head was obtained, we open the window enough to include her nasal bones. It is negative for nothing acute. Patient reassured, advised ice pack, Tylenol as needed, she is comfortable with that plan. Radiography Diagnostic Testing: Clinical Impression(s) from Imaging Studies Brain CT 08/16/21 19:33 IMPRESSION: 1. No evidence of acute intracranial pathology. 2. Diffuse involutional changes and chronic ischemic small vessel white matter disease. 3. Midline frontal scalp hematoma. Electronically Signed: Cedric Jama MD at 19:55 EDT Reading Location ID and State: [facility] / [place] Tel , Service support , Discharge Plan Triage Chief Complaint: Fall ED Provider: Karl Cummings Dx/Rx/DC Orders Clinical Impression: Traumatic hematoma of face, Accidental fall, Abrasion of face Instructions: ED Abrasion, ED Head Injury (Adult), ED Hematoma Prescriptions: No Action calcium carbonate-vitamin D3 [Calcium 600 + D(3)] 600 mg(1,500mg) -200 unit tablet 1 tab PO QDAY RF: 0 aspirin [Adult Aspirin Regimen] 81 mg tablet,delayed release (DR/EC) 81 mg PO DAILY RF: 0 sertraline [Zoloft] 100 mg tablet 100 mg PO DAILY RF: 0 buspirone 10 mg tablet 10 mg PO TID RF: 0 metformin 500 mg tablet 1,000 mg PO BIDCM RF: 0 fenofibrate 160 mg tablet 160 mg PO DAILY RF: 0 furosemide 40 mg tablet 40 mg PO DAILY RF: 0 potassium chloride 10 mEq tablet extended release 20 meq PO DAILY RF: 0 clopidogrel 75 mg tablet 75 mg PO DAILY RF: 0 alprazolam 0.25 mg tablet 0.25 mg PO TID RF: 0 rosuvastatin [Crestor] 10 mg tablet 10 mg PO DAILY RF: 0 metoprolol tartrate 25 mg tablet 12.5 mg PO BID RF: 0 tramadol 50 mg Tablet 50 mg PO Q6H PRN PRN (Reason: Pain Score 4-5) 7 Days Qty: 28 RF: 0 pantoprazole 40 mg Tablet,Delayed Release (Dr/Ec) 40 mg PO DAILY 30 Days Qty: 30 RF: 0 ferrous sulfate 325 mg (65 mg iron) tablet 325 mg PO BID 30 Days Qty: 60 RF: 0 paroxetine HCl 40 mg Tablet 40 mg PO DAILY RF: 0 Primary Care Provider: Michele Lang Referrals: Michele Lang MD [Primary Care Provider] - As Needed Activity Restrictions/Additional Instructions: Use ice to the affected areas, not heat. Tylenol as needed for pain. Antibiotic ointment gently smeared on external abrasions. Disposition Disposition: Home, Self Care
--- NOTE | 2021-08-16 19:33 | CT_ITS ---
EXAM: CT HEAD WITHOUT INTRAVENOUS CONTRAST CLINICAL INDICATION: trauma/fall TECHNIQUE: Multiple axial images were obtained of the head without intravenous contrast. CTDIvol = ( 44.99 ) mGy, DLP = ( 880.47 ) mGycm This CT exam was performed using one or more of the following dose reduction techniques: automated exposure control, adjustment of the mA and/or kV according to patient size, and/or use of iterative reconstruction technique. This report was created using [employer] report generation technology. COMPARISON: None. FINDINGS: BRAIN AND EXTRA-AXIAL SPACES: No acute intracranial hemorrhage, mass effect or edema. No evidence of acute cortical stroke. Periventricular small vessel ischemic change. No midline shift or hydrocephalus. Diffuse parenchymal atrophy. Posterior fossa structures are unremarkable. Basal cisterns are patent. BONES/JOINTS: Unremarkable. No discrete lytic or blastic abnormalities. SOFT TISSUES: Midline frontal scalp hematoma. VASCULATURE: Atherosclerotic calcifications of the carotid siphons and vertebrobasilar arteries. SINUSES: Unremarkable as visualized. Clear. MASTOID AIR CELLS: Visualized sinuses and mastoid air cells are clear. ORBITS: Visualized globes, extraocular muscles, optic nerves and retrobulbar fat appear unremarkable. CT/Brain/Head without Contrast IMPRESSION: 1. No evidence of acute intracranial pathology. 2. Diffuse involutional changes and chronic ischemic small vessel white matter disease. 3. Midline frontal scalp hematoma. Electronically Signed: Cedric Jama MD at 19:55 EDT ,
== END 2021-08-16 21:16 | disposition home or self-care (01) ==
PROVIDERS: Emergency Provider Emergency Medicine; PCP Family Medicine; Visit Provider Emergency Medicine
DX: S00.81XA Abrasion of other part of head, initial encounter (principal); E11.9 Type 2 diabetes mellitus without complications; I25.10 Atherosclerotic heart disease of native coronary artery without angina pectoris; E78.5 Hyperlipidemia, unspecified; I10 Essential (primary) hypertension; G47.33 Obstructive sleep apnea (adult) (pediatric); K21.9 Gastro-esophageal reflux disease without esophagitis; Z79.82 Long term (current) use of aspirin; Z79.84 Long term (current) use of oral hypoglycemic drugs; Z79.899 Other long term (current) drug therapy; W18.30XA Fall on same level, unspecified, initial encounter; Z95.5 Presence of coronary angioplasty implant and graft
CPT/HCPCS: 70450; 99282; A4216

== ENCOUNTER 2021-09-21 18:47 | Emergency (ER) | payer MEDICARE, SELFPAY ==
[2021-09-21 18:47] VITALS: BP 126/68; PULSE 87; RESP 16; TEMP 36.8; O2SAT 98; BMI 26.2
--- NOTE | 2021-09-21 19:27 | EX.ED.GENINJ ---
HPI History of Present Illness Chief Complaint: Head Injury Informant: patient, spouse/S.O. and family Narrative Narrative: 81-year-old female sustained a fall today. She struck her forehead on some concrete. She is on aspirin and Plavix. She did not have any loss of consciousness. She denies any neck back or arm or leg symptoms. She notes bleeding continues Tetanus Immunization: Unknown [facility] Medical History Atherosclerotic heart disease of [place] coronary artery without angina pectoris CPAP (continuous positive airway pressure) dependence Diabetes mellitus Essential (primary) hypertension Fracture of right wrist with routine healing GERD (gastroesophageal reflux disease) HLD (hyperlipidemia) Obesity KATTY (obstructive sleep apnea) Pancreatitis Right bundle branch block (RBBB) Sleep apnea Home Medications calcium carbonate 600 mg-vitamin D3 5 mcg (200 unit) tablet (Calcium 600 + D(3)) 1 tab PO QDAY supplement 07/22/17 [History Last Taken 05/18/21] metformin 500 mg tablet 1,000 mg PO BIDCM diabetes 07/22/17 [History Last Taken 05/18/21] aspirin 81 mg tablet,delayed release (Adult Aspirin Regimen) 81 mg PO DAILY heart 07/24/18 [History Last Taken 05/18/21] buspirone 10 mg tablet 10 mg PO TID mood 04/18/21 [History Last Taken 05/18/21] sertraline 100 mg tablet (Zoloft) 100 mg PO DAILY mood 04/18/21 [History Last Taken 05/18/21] fenofibrate 160 mg tablet 160 mg PO DAILY CHOLESTEROL 05/18/21 [History Last Taken 05/18/21] furosemide 40 mg tablet 40 mg PO DAILY edema 05/18/21 [History Last Taken 05/18/21] alprazolam 0.25 mg tablet 0.25 mg PO TID anxiety 05/22/21 [History Last Taken Unknown] clopidogrel 75 mg tablet 75 mg PO DAILY blood thinner 05/22/21 [History Last Taken Unknown] metoprolol tartrate 25 mg tablet 12.5 mg PO BID blood pressure 05/22/21 [History Last Taken Unknown] potassium chloride 10 mEq tablet,extended release 20 meq PO DAILY supplement 05/22/21 [History Last Taken Unknown] rosuvastatin 10 mg tablet (Crestor) 10 mg PO DAILY cholesterol 05/22/21 [History Last Taken Unknown] ferrous sulfate 325 mg (65 mg iron) tablet 325 mg PO BID supplement 30 days #60 tabs 06/08/21 [Rx Last Taken Unknown] pantoprazole 40 mg tablet,delayed release 40 mg PO DAILY 30 days #30 tabs 06/08/21 [Rx Last Taken Unknown] tramadol 50 mg tablet 50 mg PO Q6H PRN PRN Pain Score 4-5 7 days #28 tabs 06/08/21 [Rx Last Taken Unknown] paroxetine HCl 40 mg tablet 40 mg PO DAILY 08/16/21 [History Last Taken Unknown] Allergy/AdvReac Type Severity Reaction Status Date / Time adhesive tape AdvReac Unknown Verified 09/21/21 18:49 morphine AdvReac Vomiting Verified 09/21/21 18:49 Jhwxkbw-IHX-HsC Reductase AdvReac Pain in Verified 09/21/21 18:49 Inhibitor joints [Tzdxkfz-Tlu-Tvn Reductase Inhibitor] Family History Mother Hypertension Other CAD (coronary artery disease) Surgical History 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) History of coronary artery stent placement (11/17/14) Hx of appendectomy Hx of cholecystectomy Hx of hysterectomy Status post cardiac surgery Social History household members: spouse Smoking Status: Never smoker alcohol intake: never substance use type: does not use caffeine: Yes Type: carbonated beverages what type of physical activity do you participate in: none seatbelt use: always do you feel safe at home: Yes ROS ROS ED Constitutional Constitutional ED: Denies chills or weight loss Eyes Eyes: Denies change in vision or diplopia ENT ENT ED: Denies ear pain, rhinorrhea or sore throat Cardiovascular Cardiovascular: Denies chest pain, orthopnea, palpitations or racing heartbeat Respiratory/Chest Respiratory/Chest: Denies cough, dyspnea or orthopnea Gastrointestinal Gastrointestinal: Denies abdominal pain, diarrhea, nausea or vomiting Genitourinary Genitourinary ED: Denies dysuria, hematuria or urinary frequency Musculoskeletal Musculoskeletal: Denies arthralgias or myalgias Integumentary Reports other Details: See history of present illness ; Denies abscess or rash Neurologic Neurologic: Denies headache(s) or weakness Psychiatric Psychiatric: Denies anxiety, depression, suicidal ideation or suicidal thoughts Endocrine Endocrinology: Denies polydipsia, polyphagia or polyuria Allergic/Immunologic Allergic/Immunologic ED: Denies mouth swelling, tongue swelling or urticaria EXAM Physical Exam Const Vital Signs: 09/21/21 18:47 Temperature 98.2 F Temperature Source Oral Pulse Rate 87 Respiratory Rate 16 Blood Pressure 126/68 H Blood Pressure Mean 87 Pulse Ox 98 Oxygen Delivery Method Room Air Positive well nourished and well developed General Appearance ED: well developed HEENT Reports normocephalic and moist mucous membranes HEENT Narrative: There is a large hematoma of the left forehead. There is a 1.5 cm laceration just medial and superior to this. This has arterial bleeding. Sensation is normal. Eyes PERRL and EOMs intact bilaterally Neck no lymphadenopathy, supple and no JVD Resp normal respiratory effort and clear to auscultation bilaterally Cardio regular rate, regular rhythm and no murmurs GI normal to inspection, nondistended, normoactive bowel sounds and non-tender Palpation: soft Back/Spine no CVA tenderness and normal ROM Extremity normal to inspection General Extremety ED: Negative for edema General Extremity: Negative for edema Neuro oriented x3 and CN's II-XII intact bilaterally Sensorium / Orientation: alert Motor Exam: strength 5/5 throughout Psych mental status grossly normal Mood & Affect: Negative for depressed or tearful Skin no rashes or lesions noted and no wounds MDM MDM MDM Narrative Medical decision making narrative: 1% lidocaine was instilled into the wound. The bleeding ceased. I could not find the arterial. The wound was then closed using 3 simple erupted 4-0 Ethilon sutures. No further hematoma formation was noted. Patient was taken to CT for CAT scan of her brain. This was negative for intracranial hemorrhage or for skull fracture. She will be discharged home wound care discussed with patient return if worsening or concerns Radiography Diagnostic Testing: Clinical Impression(s) from Imaging Studies Brain CT 09/21/21 19:35 IMPRESSION: 1. Diffuse involutional change and chronic microvascular deep white matter disease. 2. No intracranial mass, hemorrhage, or acute territorial infarct. 3. No intracranial evidence of acute traumatic injury. 4. Interval development of LEFT periorbital and supraorbital/frontal scalp hematoma with findings consistent with a laceration. No radiopaque foreign body. Electronically Signed: Jam Salgado MD at 20:00 EDT , Discharge Plan Triage Chief Complaint: Head Injury ED Provider: Eben Lackey Dx/Rx/DC Orders Clinical Impression: Fall, Facial laceration, Facial hematoma Instructions: ED Head Injury (Adult) Prescriptions: No Action calcium carbonate-vitamin D3 [Calcium 600 + D(3)] 600 mg(1,500mg) -200 unit tablet 1 tab PO QDAY aspirin [Adult Aspirin Regimen] 81 mg tablet,delayed release (DR/EC) 81 mg PO DAILY sertraline [Zoloft] 100 mg tablet 100 mg PO DAILY buspirone 10 mg tablet 10 mg PO TID metformin 500 mg tablet 1,000 mg PO BIDCM Label Comments: 1000mg IN MORNING, 1500mg IN EVENING fenofibrate 160 mg tablet 160 mg PO DAILY Label Comments: TAKE 1 TABLET BY MOUTH ONCE DAILY furosemide 40 mg tablet 40 mg PO DAILY potassium chloride 10 mEq tablet extended release 20 meq PO DAILY clopidogrel 75 mg tablet 75 mg PO DAILY alprazolam 0.25 mg tablet 0.25 mg PO TID rosuvastatin [Crestor] 10 mg tablet 10 mg PO DAILY metoprolol tartrate 25 mg tablet 12.5 mg PO BID tramadol 50 mg Tablet 50 mg PO Q6H PRN PRN (Reason: Pain Score 4-5) 7 Days Qty: 28 0RF pantoprazole 40 mg Tablet,Delayed Release (Dr/Ec) 40 mg PO DAILY 30 Days Qty: 30 0RF ferrous sulfate 325 mg (65 mg iron) tablet 325 mg PO BID 30 Days Qty: 60 0RF paroxetine HCl 40 mg Tablet 40 mg PO DAILY Primary Care Provider: Michele Lang Referrals: Michele Lang MD [Primary Care Provider] - 7 Days for suture removal Disposition Disposition: Home, Self Care
[2021-09-21] MEDS: Lidocaine 1% /Epi 1:100 (20ml) 20 ML Vial INFILT (19:28)
[2021-09-21] MEDS: Diphth,Pertuss(Acell),Tet Vac 0.5 ML Vial IM (19:28)
--- NOTE | 2021-09-21 19:35 | CT_ITS ---
INDICATION: trauma EXAMINATION: CT BRAIN - CT Head or Brain W/O Contrast Injection TECHNIQUE: Multiple axial images were obtained of the head without intravenous contrast. A radiation dose optimization technique was used for this scan. IV Contrast dosage and agent: None. RADIATION DOSAGE (If Supplied By Facility): CTDIvol = ( 47.06 ) mGy, DLP = ( 890.33 ) mGycm COMPARISON: 08/16/2021 FINDINGS: HEMISPHERES: 1. The cerebral parenchyma, ventricular system, subarachnoid spaces have normal configuration and density. There is a normal gyral pattern. There is normal colbert/white differentiation. No midline shift.. 2. Diffuse involutional change and chronic microvascular deep white matter disease. 3. No intraparenchymal mass, hemorrhage, or acute territorial infarct. CEREBELLUM - BRAINSTEM: The cerebellum, brainstem, basilar and suprasellar cisterns have normal appearance. No Chiari malformation. PITUITARY: Infundibulum and pituitary have normal configuration. Midline structures appear normal. CSF SPACES: Appropriate for age. No hydrocephalus. Basal cisterns are patent. VESSELS: 1. Moderate vascular calcifications and cavernous carotid vessels. 2. No hyperdense vascular signs noted.. ORBITS AND PARANASAL SINUSES: 1. Normal appearance of the bony orbits. Normal appearance of the globes and retrobulbar soft tissues.. 2. Paranasal sinuses are clear. BONY ELEMENTS: Bony elements of the cranial vault, facial skeleton and skull base have normal appearance. SCALP AND SOFT TISSUES: LEFT periorbital and LEFT frontal scalp hematoma and subtle laceration, no radiopaque foreign bodies. No underlying fracture. OTHER: None ASPECTS Score for Acute Strokes: 10 CT/Brain/Head without Contrast IMPRESSION: 1. Diffuse involutional change and chronic microvascular deep white matter disease. 2. No intracranial mass, hemorrhage, or acute territorial infarct. 3. No intracranial evidence of acute traumatic injury. 4. Interval development of LEFT periorbital and supraorbital/frontal scalp hematoma with findings consistent with a laceration. No radiopaque foreign body. Electronically Signed: Jam Salgado MD at 20:00 EDT ,
[2021-09-21 20:23] VITALS: BP 137/60; PULSE 72; RESP 16; O2SAT 93
== END 2021-09-21 20:29 | disposition home or self-care (01) ==
PROVIDERS: Emergency Provider Emergency Medicine; PCP Family Medicine; Visit Provider Emergency Medicine
DX: S01.81XA Laceration without foreign body of other part of head, initial encounter (principal); I25.10 Atherosclerotic heart disease of native coronary artery without angina pectoris; G47.33 Obstructive sleep apnea (adult) (pediatric); Z23 Encounter for immunization; Z95.1 Presence of aortocoronary bypass graft; Z79.82 Long term (current) use of aspirin; Z79.01 Long term (current) use of anticoagulants; W19.XXXA Unspecified fall, initial encounter
CPT/HCPCS: 12011; 70450; 90471; 96372; 99283

== ENCOUNTER 2021-10-10 11:30 | Outpatient (RCR) | payer MEDICARE, SELFPAY ==
--- NOTE | 2021-10-03 13:45 | HP.PTEVAL_ITS ---
Patient's Visit Information TAMICA REBOLLEDO is a 81 year old F referred to Physical Therapy by Dr. Michele Talbot MD with a diagnosis of FREQUENT FALLS, LOSS OF BALANCE AND LE WEAKNESS/DEBILITY. Date of Evaluation: 10/03/21 Physical Therapist: Aida Osborn, PT, Cert MDT - Visit Plan Frequency: 2-3x /Week Duration: 4-6 Weeks Plan: *FALL RISK. USE GAIT BELT. VERY FRAGILE SKIN*. GAIT AND BALANCE TRAINING. GENERAL STRENGTHENING. WRITTEN HEP. - Subjective Work/Leisure: RETIRED. 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 Present symptoms: PATIENT REPORTS SHE HAS FALLEN 5 TIMES SINCE SHE HAD HER HIP FIXED MAY 18 2021. SHE REPORTS SHE FELL AND BROKE HER HIP - L ORIF. SHE REPORTS THE FALLS SEEM TO BE FROM WEAKNESS IN HER LEGS BUT SHE HAS ALSO CAUGHTER HER WALKER ON THINGS AND FELL. WIND BLEW HER OVER ONCE TOO. THE LAST TIME SHE FELL SHE WAS GOING DOWN STEPS WITHOUT A HANDRAIL AND SHE JUST LOST HER BALANCE AND FELL - APPROX September RESULTING IN STITCHES IN HEAD. PULLED L GROIN MUSCLE 3 WKS AGO AND GETTING BETTER. ELIJAH LEG STIFFNESS IN THE MORNINGS. Pain Scale: WORST 4/10, LEAST 0/10. Currently: 0/10. Worse: BENDING. Better: SITTING. Disturbed sleep: NO - I SLEEP LIKE A BABY. Gait: PATIENT REPORTS THAT ONCE SHE GETS LIMBERED UP IN THE MORNING SHE DOESN'T HAVE ANY PAIN AND SHE CAN WALK FINE IN THE HOUSE WITHOUT HER CANE. SHE REPORTS SHE FEELS SAFER USING THE CANE WHEN OUT OF THE HOUSE. PRIOR TO BREAKING HER HIP SHE DID NOT USE A CANE. Difficulty initiating urination: URGENCY AND LEAKING. WEARS PADS. HAVING MORE TROUBLE GETTING TO THE BATHROOM IN TIME SINCE HIP FX. REPORTS SHE IS STARTING TO BE ABLE TO GET TO THE BATHROOM IN TIME MORE NOW. Unexplained weight loss: SINCE SX HAS LOST [address] TALBOT IS AWARE. PMH/Recent major surgery: H/O R WRIST FX 3 YEARS AGO. CELLULITIS LLE X 2 AND PATIENT REPORTS SHE ALMOST LOST HER L LEG. CHRONIC LE SWELLING L > R. PATIENT REPORTS HER SKIN BRUISES VERY VERY EASILY. NO CANCER OR STROKE. NIDDM. H/O BLOOD CLOTS. INNER EAR PROBLEMS AND HAS HAD PT HERE IN THE PAST FOR IT. HEART DISEASE AND HEART STENTS. OTHER: PATIENT REPORTS HAVING REHAB AT [facility] THEN HOME PT AFTER HER L HIP ORIF AND SINCE THEN SHE HAS CONTINUED THE EX'S ON HER OWN. - Objective THIS PATIENT WAS BROUGHT BACK TO PHYSICAL THERAPY IN A W/C DUE TO FREQUENT FALLS AND LONG DISTANCE FROM LOBBY TO TREATMENT ROOM. SHE DEMO'S INDEP GAIT WITH STRAIGHT CANE IN CLINIC SHORT DISTANCE. SHE IS ELIJAH UE DEPENDENT TO TRANSFER FROM SIT TO STAND SAFELY BUT ABLE TO TRANSFER SIT TO STAND WITHOUT UE ASSIST WITH DUNHAM PERVISION. SEE TUG TEST AND 30 SEC STS TESTS BELOW. PATIENT HAS ELIJAH LE EDEMA LEFT GREATER THAN RIGHT AND SHE REPORTS THIS IS CHRONIC. SHE REQUESTS LIMITED TESTING OF HER LEGS BECAUSE SHE BRUISES SO EASILY. SHE IS ACTIVELY ABLE TO FULLY EXTEND BOTH KNEES. BEND KNEES TO AT LEAST 100 DEG IN SITTING. ABLE TO DORSIFLEX ANKLES TO 5 DEG AND RAISE HEELS 10 DEG. SHE IS ALSO ABLE TO RAISE BOTH KNEES PAST 90 DEG IN SITTING AGAINST GRAVITY. STANDING BALANCE IS FAIR PLUS. DYNAMIC BALANCE IS FAIR MINUS. - Balance/Special Test Scores Lower Extremity Functional Score: 32 TUG Test Time Seconds: 22.04 30 Second Chair Rise Test Seconds: 6 - Goals Goal 1:: PATIENT WILL COMPLETE TUG IN < 18 SECS TO DEMONSTRATE IMPROVED GAIT STABILITY Goal Time Frame: 6-8 Weeks Goal 2:: PATIENT WILL COMPLETE 10 STANDS IN 30 SECS TO DEMONSTRATE IMPROVED FUNCTIONAL STRENGTH Goal Time Frame: 6-8 Weeks Goal 3:: PATIENT WILL DEMONSTRATE SAFE GAIT ON LEVEL SURFACES 300 FEET WITH STRAIGHT CANE WITH SUPERVISION X 1 TO IMPROVE ACTIVITY TOLERANCE Goal Time Frame: 6-8 Weeks Goal 4:: PATIENT WILL ASCEND AND DESCEND STEPS WITH LEAST UE ASSIST RECIPRICALLY INDEP'LY TO HELP REINTEGRATE INTO COMMUNITY. Goal Time Frame: 6-8 Weeks Goal 5:: PATIENT WILL BE INDEP WITH A HEP FOR CONTINUED IMPROVEMENT ONCE FORMAL PHYSICAL THERAPY CONCLUDES. - Anticipated Interventions Patient/Client Instruction: Educate patient on: Condition, Plan of Care, Risk Factors For the Purpose of:: To improve self management Therapeutic Exercise to Include: Strength training, Endurance training, Balance training, Flexibilty training, Gait and locomotor training, Neuromotor development For the Purpose of:: To improve muscle performance and motor function, To improve ability to perform ADL's, To increase tolerance to activity/condition/position, To improve ability of physical actions for home/community/work/leisure, To improve gait and locomotor functions Thank you for the opportunity to evaluate your patient. For Medicare and Medicare HMO plans, please review the plan of care and approve it. It will need to be FAXED BACK to us at [phone] for Medicare purposes. For Medicare only, by signing this I certify the plan of care. Please let me know if there are questions or concerns regarding this plan of care. Physician Signature: Date:
--- NOTE | 2021-12-26 12:38 | HP.PTDCNRP_ITS ---
TAMICA REBOLLEDO was seen in my office for initial evaluation on 10/03/21. The following Plan of Care was established for this patient: Initial Frequency: 2-3x /Week Initial Duration: 4-6 Weeks Patient/Client Instruction: Educate patient on: Condition, Plan of Care, Risk Factors For the Purpose of:: To improve self management Therapeutic Exercise to Include: Strength training, Endurance training, Balance training, Flexibilty training, Gait and locomotor training, Neuromotor development For the Purpose of:: To improve muscle performance and motor function, To improve ability to perform ADL's, To increase tolerance to activity /condition/position, To improve ability of physical actions for home/community/work/leisure, To improve gait and locomotor functions This patient was last seen in our office 10/10/21. Pertinent comments regarding their Physical therapy will appear below: This patient has not returned to Physical Therapy and is appropriate to return to MD for further follow-up as needed. At this point I will be discontinuing this patient from physical therapy. I would be happy to see this patient again in the future if found appropriate by the physician. Thank you! Aida Osborn, PT, Cert MDT Balance/Gait/Functional tests - Balance/Special Test Scores Lower Extremity Functional Score: 32 TUG Test Time Seconds: 22.04 Tug Test: 20-30sec.=variable mobility 30 Second Chair Rise Test Seconds: 6
== END 2021-10-10 19:00 | disposition home or self-care (01) ==
LOC: PT 11:30
PROVIDERS: PCP Family Medicine; Referring Provider Family Medicine; Visit Provider Family Medicine
DX: R29.6 Repeated falls (principal); R26.89 Other abnormalities of gait and mobility; R29.898 Other symptoms and signs involving the musculoskeletal system; R53.81 Other malaise
CPT/HCPCS: 97110; 97116; 97162

== ENCOUNTER → 2021-10-19 | Outpatient (CLI) | payer MEDICARE, SELFPAY ==
[2021-10-19 12:17] LABS: Absolute Lymphocyte Count 1.06 X10^3/uL (0.83-4.51); Absolute Neutrophil Count 4.2 X10^3/uL (2.0-7.7); Basophil# 0.01 X10^3/uL; Basophil% 0.2 % (0-1); Eosinophil# 0.13 X10^3/uL; Eosinophils% 2.2 % (0-5); Hematocrit 34.3 % (37-47); Hemoglobin 11.3 g/dL (12.0-15.0); Lymphocyte # 1.06 X10^3/ul (0.83-4.51); Lymphocyte % 17.9 % (19-41); Mean Corp Hgb Conc 32.9 g/dL (32-36); Mean Corpuscular Hgb 30.2 pg (27.0-32.0); Mean Corpuscular Volume 91.7 fL (81-99); Mean Platelet Vol. 9.1 fl (6.2-12.0); Monocyte# 0.52 X10^3/uL; Monocyte% 8.8 % (0-10); NRBC Flagged by Analyzer 0 % (0-5); Neutrophil # 4.18 X10^3/uL (2.7-7.7); Neutrophil % 70.6 % (47-70); Platelet Count 231 K/mm3 (150-450); RBC Distribution Width CV 12.8 % (11.6-14.6); RBC Distribution Width SD 43.5 fl (35.1-43.9); Red Blood Count 3.74 M/mm3 (4.2-5.4); White Blood Count 5.9 K/mm3 (4.4-11.0)
[2021-10-19 12:35] LABS: PTHIN 27.1 pg/mL (18.4-80.1)
[2021-10-19 12:54] LABS: Vitamin B12 1220 pg/mL (211-911); Vitamin D,25 Hydroxy 42.9 ng/mL
[2021-10-19 13:17] LABS: Hemoglobin A1c 6.8 % (3.8-5.6)
[2021-10-19 13:32] LABS: ALB/GLOB Ratio 0.9 RATIO (0.9-2.4); AST(SGOT) 20 U/L (15-37); Alanine Aminotransfer ALT/SGPT 20 U/L (13-56); Albumin, Serum 3.4 g/dL (3.2-5.0); Alkaline Phosphatase 95 U/L (45-117); Anion Gap 6 (5-15); BUN 28 mg/dL (7-18); BUN/Creat Ratio 21.7 RATIO (10-20); Calcium,Total 8.9 mg/dL (8.5-10.1); Chloride 97 mmol/L (98-107); Cholesterol 158 mg/dL (200); Creatinine, Serum 1.29 mg/dL (0.55-1.02); EST Glomerular Filtration Rate 42 mL/min (>60); Est Glom Filt Rate - Afr Amer 51 mL/min (>60); Ferritin 75 ng/mL (8-252); Globulin 3.8 g/dL (2.2-4.2); Glucose 280 mg/dL (74-106); High Density Lipoprotein 39 mg/dL; Iron 86 ug/dL (50-170); Iron Binding Capacity,Total 395 ug/dL (250-450); Phosphorus 3.2 mg/dL (2.5-4.9); Protein, Total 7.2 g/dL (6.4-8.2); Sodium Level 135 mmol/L (136-145); Triglycerides 228 mg/dL; Very Low Density Lipoprotein 46 mg/dL (5-40)
== END | disposition home or self-care (01) ==
LOC: MFPLAB 11:14
PROVIDERS: PCP Family Medicine; Referring Provider Family Medicine; Visit Provider Family Medicine
DX: E11.22 Type 2 diabetes mellitus with diabetic chronic kidney disease (principal); N18.30 Chronic kidney disease, stage 3 unspecified; M85.80 Other specified disorders of bone density and structure, unspecified site; D64.9 Anemia, unspecified
CPT/HCPCS: 36415; 80053; 80061; 82306; 82607; 82728; 82746; 83036; 83540; 83550; 83970; 84100; 85025

== ENCOUNTER → 2021-12-01 | Outpatient (CLI) | payer MEDICARE, SELFPAY ==
[2021-12-01 11:16] LABS: Bacteria 0 SEEN /hpf (None Seen); Mucous, Urine 0 SEEN /hpf (<or=2+); Red Blood Cells-Urine 0 SEEN /hpf (0-5); Squamous Epithelial Cells - UA 0 SEEN /hpf (5-10); White Blood Cells 0 SEEN /hpf (0-5)
[2021-12-01 12:19] LABS: Color, Urine Yellow (Yellow); Glucose, Dipstick Normal (Normal); Ketone-Dipstick Negative (Negative); Leukocyte Esterase-Dipstick Negative /ul (Negative); Nitrite-Dipstick Negative (Negative); Occult Blood-Urine Negative /ul (Negative); Protein-Dipstick Negative (Negative); Specific Gravity, Urine 1.015 (1.002-1.030); Urine Bilirubin Dipstick Negative (Negative); Urine Clarity Sl. Cloudy (Clear); Urine Urobilinogen Normal (Normal); Urine pH 6.5 (5.0 - 8.0)
[2021-12-01 13:10] LABS: Microalbumin:Creatinine Ratio 7.8 mg/g CRE (<30 mg/g CRE); Protein, Urine (Random) < 6.0 mg/dL (<11.9)
== END | disposition home or self-care (01) ==
LOC: LABSPEC 11:13
PROVIDERS: PCP Family Medicine; Referring Provider Family Medicine; Visit Provider Family Medicine
DX: E11.22 Type 2 diabetes mellitus with diabetic chronic kidney disease (principal); N18.30 Chronic kidney disease, stage 3 unspecified; M85.80 Other specified disorders of bone density and structure, unspecified site; D64.9 Anemia, unspecified; E53.8 Deficiency of other specified B group vitamins
CPT/HCPCS: 81001; 82043; 82570; 84156

== ENCOUNTER → 2022-03-07 | Outpatient (CLI) | payer MEDICARE, SELFPAY ==
[2022-03-07 12:44] LABS: Absolute Neutrophil Count 5.7 X10^3/uL (2.0-7.7); Basophil# 0.02 X10^3/uL; Basophil% 0.3 % (0-1); Eosinophil# 0.09 X10^3/uL; Eosinophils% 1.2 % (0-5); Hematocrit 36.8 % (37-47); Hemoglobin 11.8 g/dL (12.0-15.0); Lymphocyte % 13.5 % (19-41); Mean Corp Hgb Conc 32.1 g/dL (32-36); Mean Corpuscular Hgb 29.4 pg (27.0-32.0); Mean Corpuscular Volume 91.8 fL (81-99); Mean Platelet Vol. 9.4 fl (6.2-12.0); Monocyte# 0.61 X10^3/uL; Monocyte% 8.2 % (0-10); NRBC Flagged by Analyzer 0 % (0-5); Neutrophil # 5.66 X10^3/uL (2.7-7.7); Neutrophil % 76.5 % (47-70); Platelet Count 203 K/mm3 (150-450); RBC Distribution Width CV 13.4 % (11.6-14.6); RBC Distribution Width SD 45.5 fl (35.1-43.9); Red Blood Count 4.01 M/mm3 (4.2-5.4); White Blood Count 7.4 K/mm3 (4.4-11.0)
[2022-03-07 12:48] LABS: Vitamin B12 1744 pg/mL (211-911); Vitamin D,25 Hydroxy 41.1 ng/mL
[2022-03-07 13:13] LABS: AST(SGOT) 28 U/L (15-37); Alanine Aminotransfer ALT/SGPT 30 U/L (13-56); Albumin, Serum 3.5 g/dL (3.2-5.0); Alkaline Phosphatase 94 U/L (45-117); Anion Gap 11 (5-15); BUN 24 mg/dL (7-18); BUN/Creat Ratio 24.2 RATIO (10-20); Calcium,Total 9.3 mg/dL (8.5-10.1); Chloride 100 mmol/L (98-107); Cholesterol 136 mg/dL (200); Creatinine, Serum 0.99 mg/dL (0.55-1.02); EST Glomerular Filtration Rate 57 mL/min (>60); Est Glom Filt Rate - Afr Amer 69 mL/min (>60); Ferritin 60 ng/mL (8-252); Globulin 3.4 g/dL (2.2-4.2); Glucose 223 mg/dL (74-106); High Density Lipoprotein 49 mg/dL; Iron 59 ug/dL (50-170); Iron Binding Capacity,Total 317 ug/dL (250-450); Potassium 3.9 mmol/L (3.5-5.1); Protein, Total 6.9 g/dL (6.4-8.2); Sodium Level 139 mmol/L (136-145); Triglycerides 255 mg/dL; Very Low Density Lipoprotein 51 mg/dL (5-40)
[2022-03-07 14:49] LABS: Hemoglobin A1c 6.4 % (3.8-5.6)
== END | disposition home or self-care (01) ==
PROVIDERS: PCP Family Medicine; Referring Provider Family Medicine; Visit Provider Family Medicine
DX: E55.9 Vitamin D deficiency, unspecified (principal); E11.9 Type 2 diabetes mellitus without complications
CPT/HCPCS: 36415; 80053; 80061; 82306; 82607; 82728; 82746; 83036; 83540; 83550; 85025

== ENCOUNTER → 2022-06-08 | Outpatient (CLI) | payer MEDICARE, SELFPAY ==
[2022-06-08 16:42] LABS: Bacteria 0 SEEN /hpf (None Seen); Mucous, Urine 0 SEEN /hpf (<or=2+); Red Blood Cells-Urine 0 SEEN /hpf (0-5)
[2022-06-08 17:54] LABS: Color, Urine Yellow (Yellow); Glucose, Dipstick Normal (Normal); Ketone-Dipstick Negative (Negative); Leukocyte Esterase-Dipstick 500 /ul (Negative); Nitrite-Dipstick Negative (Negative); Occult Blood-Urine Negative /ul (Negative); Protein-Dipstick 15 mg/dl (Negative); Urine Bilirubin Dipstick Negative (Negative); Urine Clarity Clear (Clear); Urine Urobilinogen Normal (Normal)
[2022-06-08 17:55] LABS: Absolute Lymphocyte Count 1.69 X10^3/uL (0.83-4.51); Absolute Neutrophil Count 4.3 X10^3/uL (2.0-7.7); Basophil# 0.02 X10^3/uL; Basophil% 0.3 % (0-1); Eosinophils% 1.5 % (0-5); Hemoglobin 11.6 g/dL (12.0-15.0); Lymphocyte # 1.69 X10^3/ul (0.83-4.51); Mean Corp Hgb Conc 31.4 g/dL (32-36); Mean Corpuscular Hgb 28.6 pg (27.0-32.0); Mean Corpuscular Volume 91.4 fL (81-99); Mean Platelet Vol. 9.6 fl (6.2-12.0); Monocyte# 0.43 X10^3/uL; Monocyte% 6.6 % (0-10); NRBC Flagged by Analyzer 0 % (0-5); Neutrophil # 4.26 X10^3/uL (2.7-7.7); Neutrophil % 65.4 % (47-70); Platelet Count 269 K/mm3 (150-450); RBC Distribution Width CV 14.2 % (11.6-14.6); RBC Distribution Width SD 47.8 fl (35.1-43.9); Red Blood Count 4.05 M/mm3 (4.2-5.4); White Blood Count 6.5 K/mm3 (4.4-11.0)
[2022-06-08 18:22] LABS: Squamous Epithelial Cells - UA 0-5 SEEN /hpf (5-10); White Blood Cells 0-5 SEEN /hpf (0-5)
[2022-06-08 18:32] LABS: Microalbumin,Random Urine 37.6 mg/L (NO RANGE EST.); Microalbumin:Creatinine Ratio 36.5 mg/g CRE (<30 mg/g CRE); Protein, Urine (Random) 11.6 mg/dL (<11.9); Protein:Creat Ratio 113 mg/g CRE (0-200)
[2022-06-08 18:46] LABS: ALB/GLOB Ratio 1.1 RATIO (0.9-2.4); AST(SGOT) 40 U/L (15-37); Alanine Aminotransfer ALT/SGPT 24 U/L (13-56); Albumin, Serum 3.8 g/dL (3.2-5.0); Alkaline Phosphatase 75 U/L (45-117); Anion Gap 5 (5-15); BUN 36 mg/dL (7-18); BUN/Creat Ratio 27.3 RATIO (10-20); Calcium,Total 9.6 mg/dL (8.5-10.1); Chloride 98 mmol/L (98-107); Cholesterol 133 mg/dL (200); Creatinine, Serum 1.32 mg/dL (0.55-1.02); EST Glomerular Filtration Rate 41 mL/min (>60); Est Glom Filt Rate - Afr Amer 50 mL/min (>60); Ferritin 69 ng/mL (8-252); Globulin 3.5 g/dL (2.2-4.2); Glucose 153 mg/dL (74-106); High Density Lipoprotein 29 mg/dL; Iron 69 ug/dL (50-170); Iron Binding Capacity,Total 437 ug/dL (250-450); Phosphorus 3.3 mg/dL (2.5-4.9); Potassium 3.7 mmol/L (3.5-5.1); Protein, Total 7.3 g/dL (6.4-8.2); Sodium Level 135 mmol/L (136-145); Triglycerides 317 mg/dL; Very Low Density Lipoprotein 63 mg/dL (5-40)
[2022-06-08 19:11] LABS: Hemoglobin A1c 7.4 % (3.8-5.6)
[2022-06-08 19:27] LABS: Vitamin B12 1287 pg/mL (211-911); Vitamin D,25 Hydroxy 43.6 ng/mL
[2022-06-09 11:54] LABS: PTHIN 18.7 pg/mL (18.4-80.1)
== END | disposition home or self-care (01) ==
LOC: MFPLAB 16:38
PROVIDERS: PCP Family Medicine; Visit Provider Family Medicine
DX: E55.9 Vitamin D deficiency, unspecified (principal); E11.22 Type 2 diabetes mellitus with diabetic chronic kidney disease; N18.30 Chronic kidney disease, stage 3 unspecified; D64.9 Anemia, unspecified
CPT/HCPCS: 36415; 80053; 80061; 81001; 82043; 82306; 82570; 82607; 82728; 82746; 83036; 83540; 83550; 83970; 84100; 84156; 85025

== ENCOUNTER 2022-07-07 11:04 | Emergency (ER) | payer MEDICARE, SELFPAY ==
[2022-07-07 11:04] VITALS: BP 146/59; PULSE 74; RESP 16; TEMP 35.9; O2SAT 96; BMI 28.8
--- NOTE | 2022-07-07 11:19 | VDLE_ITS ---
Reason For Study: pain Procedure LEFT This is a venous duplex using B-mode, color GSV is normal. flow and spectral Doppler. CFV is compressible, spontaneous, phasic, Exam performed portable in ED. competent, and demonstrates normal The exam was abbreviated due to the COVID 19 augmentation. protocol. FV is compressible, spontaneous, phasic, The exam was diagnostic. competent and demonstrates normal A preliminary report was called and/or faxed augmentation. to Dr. Patel. POP V is compressible, spontaneous, phasic, competent and demonstrates normal augmentation. T/P Trunk is compressible. PTV is compressible. LT PerV is compressible. VL/Venous Duplex US, Unilateral Interpretation Summary Deep veins of the left lower extremity are patent and compressible segmentally. There is no evidence of left lower extremity deep vein thrombosis. The left great saphenous vein craig ears patent and compressible segmentally. Ordering Physician: Braulio Patel Performed By: Jeferson Novak RVT
--- NOTE | 2022-07-07 11:20 | EDS_ITS ---
HPI History of Present Illness Chief Complaint: Cellulitis Narrative Narrative: 82-year-old female, past medical history of diabetes, previous cellulitis, presents with redness to her left lower extremity that started yesterday. She states she has chronic swelling and tenderness of her left leg greater than her right leg after hip surgery 13 months ago. Last weekend, approximately 7 days ago, her cat scratched her on the back of her leg on the lower portion more towards her ankle. She denies any fevers or chills. No chest pain or shortness of breath, but noticed that yesterday she had redness on the medial aspect of her posterior knee, spreading up towards her thigh. She states her lower leg is mildly tender. She denies any other symptoms, but with her having cellulitis in the past, presents mainly for a strong antibiotic. [facility] Medical History Atherosclerotic heart disease of [place] coronary artery without angina pectoris CPAP (continuous positive airway pressure) dependence Diabetes mellitus Essential (primary) hypertension Fracture of right wrist with routine healing GERD (gastroesophageal reflux disease) HLD (hyperlipidemia) Obesity KATTY (obstructive sleep apnea) Pancreatitis Right bundle branch block (RBBB) Sleep apnea Home Medications metformin 500 mg tablet 1,000 mg PO BIDCM diabetes 07/22/17 [History Last Taken 05/18/21] aspirin 81 mg tablet,delayed release (Adult Aspirin Regimen) 81 mg PO DAILY heart 07/24/18 [History Last Taken 05/18/21] fenofibrate 160 mg tablet 160 mg PO DAILY CHOLESTEROL 05/18/21 [History Last Taken 05/18/21] furosemide 40 mg tablet 40 mg PO DAILY edema 05/18/21 [History Last Taken 05/18/21] alprazolam 0.25 mg tablet 0.25 mg PO TID anxiety 05/22/21 [History Last Taken Unknown] potassium chloride 10 mEq tablet,extended release 10 meq PO DAILY supplement 05/22/21 [History Last Taken Unknown] rosuvastatin 10 mg tablet (Crestor) 10 mg PO DAILY cholesterol 05/22/21 [History Last Taken Unknown] pantoprazole 40 mg tablet,delayed release 40 mg PO DAILY 30 days #30 tabs 06/08/21 [Rx Last Taken Unknown] acetaminophen 500 mg capsule 500 mg PO Q6H PRN Pain 04/26/22 [History Last Taken Unknown] buspirone 10 mg tablet 10 mg PO TID mood 04/26/22 [History Last Taken Unknown] cholecalciferol (vitamin D3) 25 mcg (1,000 unit) capsule 75 mcg PO DAILY 04/26/22 [History Last Taken Unknown] cyanocobalamin (vitamin B-12) 1,000 mcg capsule 1,000 mcg PO DAILY 04/26/22 [History Last Taken Unknown] fluticasone propionate 50 mcg/actuation nasal spray,suspension 1 spray intranasal DAILY 04/26/22 [History Last Taken Unknown] nystatin 100,000 unit/gram topical ointment 1 applic topical TID 04/26/22 [History Last Taken Unknown] sertraline 50 mg tablet (Zoloft) 50 mg PO DAILY 04/26/22 [History Last Taken Unknown] amoxicillin 875 mg-potassium clavulanate 125 mg tablet 1 tab PO BID #20 tabs 07/07/22 [Rx Last Taken Unknown] clopidogrel 75 mg tablet (Plavix) 75 mg PO DAILY Patient is OUT of medication 07/07/22 [History Last Taken Unknown] Allergy/AdvReac Type Severity Reaction Status Date / Time adhesive tape AdvReac Unknown Verified 07/07/22 11:10 morphine AdvReac Vomiting Verified 07/07/22 11:10 Nujumqt-Bjh-Adp Reductase AdvReac Pain in Verified 07/07/22 11:10 Inhibitor joints Family History Mother Hypertension Other CAD (coronary artery disease) Surgical History Fracture of left hip requiring operative repair 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) History of coronary artery stent placement (11/17/14) Hx of appendectomy Hx of cholecystectomy Hx of hysterectomy Status post cardiac surgery Social History household members: spouse Smoking Status: Never smoker alcohol intake: never substance use type: does not use caffeine: Yes Type: carbonated beverages what type of physical activity do you participate in: none seatbelt use: always do you feel safe at home: Yes ROS ROS ED ROS Narrative Constitutional: No fever, no chills. HEENT: No sore throat. No neck pain. No loss of vision. No rhinorrhea. Cardiovascular: No chest pain. No palpitations. No pedal edema. Respiratory: No cough, no shortness of breath. Abdominal: No abdominal pain. No nausea. No vomiting. Genitourinary: No dysuria. No hematuria. Musculoskeletal: Left lower extremity tenderness, swelling, and redness to medial knee and thigh. Neurologic: No headaches. No dizziness. No lightheadedness. Skin: No rash. No change in color. Psychiatric: No depression. No anxiety. EXAM Physical Exam Narrative Exam Narrative: Afebrile. Vital signs noted. Nontoxic-appearing. HEENT: Normocephalic. Atraumatic. PERRL, EOMI. Neck soft and supple. No point tenderness or step off. Cardiovascular: Regular rate and rhythm. No murmurs, rubs, or gallops appreciated. Respiratory: No tachypnea. Lungs clear to auscultation bilaterally. Gastrointestinal: Abdomen soft, nontender, with normoactive bowel sounds. No rebound or guarding. Neurological: Awake. Alert. Nonfocal, nonlateralizing. Skin: No rash. Positive erythema left lower leg, chronic, with blanching erythema on medial knee and mildly medial thigh, no palpable cord. No pallor. Musculoskeletal: Bilateral pedal edema left greater than right. Full range of motion extremities. Palpable dorsalis pedis pulses bilaterally. Const Vital Signs: 07/07/22 11:04 Temperature 96.6 F L Temperature Source Temporal Pulse Rate 74 Respiratory Rate 16 Blood Pressure 146/59 H Blood Pressure Mean 88 Pulse Ox 96 Oxygen Delivery Method Room Air MDM MDM MDM Narrative Medical decision making narrative: I do feel that she may have cellulitis, but although they relate history of chronic pedal edema left greater than right, there is also concern for DVT causing the erythema medially. Vascular study will be obtained to rule out DVT. I do not feel that laboratory work is indicated because I will treat the erythema if it is negative for DVT as a cellulitis. She was given her first dose of Augmentin here in the emergency department. I feel no fluctuant abscess in the area where her cat reportedly scratched her. Ultrasound of the left lower extremity was performed which shows no preliminary evidence of DVT. At this point in time, she will be treated with Augmentin for the cellulitis of her left lower extremity. There are other areas of dry skin on her left lower extremity which could be portal of entry for skin bacteria and not primarily from a cat scratch as this happened last week, and she did not michelle w symptoms until yesterday. She will follow-up with her primary care provider in the next 3 to 5 days. I wrote her prescription for Augmentin for the next 10 days to take twice daily. Return instructions to the emergency department were reviewed. Disposition is discharged home in stable condition. Discharge Plan Triage Chief Complaint: Cellulitis ED Provider: Braulio Patel Dx/Rx/DC Orders Clinical Impression: Cellulitis, Left leg swelling Instructions: ED Cellulitis Prescriptions: New amoxicillin-pot clavulanate 875-125 mg tablet 1 tab PO BID Qty: 20 0RF No Action aspirin [Adult Aspirin Regimen] 81 mg tablet,delayed release (DR/EC) 81 mg PO DAILY buspirone 10 mg tablet 10 mg PO TID nystatin 100,000 unit/gram ointment 1 applic topical TID fluticasone propionate 50 mcg/actuation spray,suspension 1 spray intranasal DAILY sertraline [Zoloft] 50 mg tablet 50 mg PO DAILY acetaminophen 500 mg capsule 500 mg PO Q6H PRN (Reason: Pain) cholecalciferol (vitamin D3) 25 mcg (1,000 unit) capsule 75 mcg PO DAILY cyanocobalamin (vitamin B-12) 1,000 mcg capsule 1,000 mcg PO DAILY metformin 500 mg tablet 1,000 mg PO BIDCM Label Comments: 1000mg IN MORNING, 1500mg IN EVENING fenofibrate 160 mg tablet 160 mg PO DAILY Label Comments: TAKE 1 TABLET BY MOUTH ONCE DAILY furosemide 40 mg tablet 40 mg PO DAILY potassium chloride 10 mEq tablet extended release 10 meq PO DAILY alprazolam 0.25 mg tablet 0.25 mg PO TID rosuvastatin [Crestor] 10 mg tablet 10 mg PO DAILY pantoprazole 40 mg Tablet,Delayed Release (Dr/Ec) 40 mg PO DAILY 30 Days Qty: 30 0RF clopidogrel [Plavix] 75 mg tablet 75 mg PO DAILY Primary Care Provider: Michele Lang Referrals: Michele Lang MD [Primary Care Provider] - 3-5 Days Activity Restrictions/Additional Instructions: Take care and a biotics as prescribed. Elevate your left leg when possible. Follow-up with your primary care provider in the next 3 to 5 days to check for improvement. Return with fever, new or worsening symptoms. Disposition Disposition: Home, Self Care
[2022-07-07] MEDS: Amox/Clavulanate 875 MG Tablet PO (11:42)
[2022-07-07 13:42] VITALS: BP 128/59; PULSE 67; RESP 17; TEMP 36.6; O2SAT 98
== END 2022-07-07 13:43 | disposition home or self-care (01) ==
PROVIDERS: Emergency Provider Emergency Medicine; PCP Family Medicine; Visit Provider Emergency Medicine
DX: L03.116 Cellulitis of left lower limb (principal); E11.9 Type 2 diabetes mellitus without complications; I25.10 Atherosclerotic heart disease of native coronary artery without angina pectoris; E78.5 Hyperlipidemia, unspecified; G47.33 Obstructive sleep apnea (adult) (pediatric); Z95.5 Presence of coronary angioplasty implant and graft; Z95.1 Presence of aortocoronary bypass graft; Z79.82 Long term (current) use of aspirin; Z79.899 Other long term (current) drug therapy; Z79.01 Long term (current) use of anticoagulants; K21.9 Gastro-esophageal reflux disease without esophagitis; Z79.84 Long term (current) use of oral hypoglycemic drugs
CPT/HCPCS: 93971; 99283; J7030

== ENCOUNTER → 2022-08-29 | Outpatient (CLI) | payer MEDICARE, SELFPAY ==
[2022-08-29 15:45] LABS: Bacteria 0 SEEN /hpf (None Seen); Mucous, Urine 0 SEEN /hpf (<or=2+); Red Blood Cells-Urine 0 SEEN /hpf (0-5); Squamous Epithelial Cells - UA 0 SEEN /hpf (5-10)
[2022-08-29 18:15] LABS: Absolute Lymphocyte Count 1.27 X10^3/uL (0.83-4.51); Absolute Neutrophil Count 5.4 X10^3/uL (2.0-7.7); Basophil# 0.01 X10^3/uL; Basophil% 0.1 % (0-1); Eosinophil# 0.07 X10^3/uL; Eosinophils% 0.9 % (0-5); Hematocrit 34.3 % (37-47); Hemoglobin 10.9 g/dL (12.0-15.0); Lymphocyte # 1.27 X10^3/ul (0.83-4.51); Lymphocyte % 17.1 % (19-41); Mean Corp Hgb Conc 31.8 g/dL (32-36); Mean Corpuscular Hgb 29.5 pg (27.0-32.0); Mean Corpuscular Volume 92.7 fL (81-99); Mean Platelet Vol. 9.3 fl (6.2-12.0); Monocyte# 0.69 X10^3/uL; Monocyte% 9.3 % (0-10); NRBC Flagged by Analyzer 0 % (0-5); Neutrophil # 5.37 X10^3/uL (2.7-7.7); Neutrophil % 72.2 % (47-70); Platelet Count 300 K/mm3 (150-450); RBC Distribution Width CV 13.7 % (11.6-14.6); RBC Distribution Width SD 46.5 fl (35.1-43.9); White Blood Count 7.4 K/mm3 (4.4-11.0)
[2022-08-29 18:33] LABS: Color, Urine Yellow (Yellow); Glucose, Dipstick Normal (Normal); Ketone-Dipstick Negative (Negative); Leukocyte Esterase-Dipstick 25 /ul (Negative); Nitrite-Dipstick Negative (Negative); Occult Blood-Urine Negative /ul (Negative); Protein-Dipstick Negative (Negative); Urine Bilirubin Dipstick Negative (Negative); Urine Clarity Clear (Clear); Urine Urobilinogen Normal (Normal)
[2022-08-29 18:46] LABS: Vitamin B12 1065 pg/mL (211-911); Vitamin D,25 Hydroxy 47.1 ng/mL
[2022-08-29 18:47] LABS: Hemoglobin A1c 7.2 % (3.8-5.6)
[2022-08-29 18:51] LABS: Hyaline Cast 10-25 SEEN /lpf (0-5); White Blood Cells 0-5 SEEN /hpf (0-5)
[2022-08-29 18:56] LABS: Microalbumin,Random Urine 6.7 mg/L (NO RANGE EST.); Microalbumin:Creatinine Ratio 15.3 mg/g CRE (<30 mg/g CRE); Protein, Urine (Random) < 6.0 mg/dL (<11.9)
[2022-08-29 19:04] LABS: ALB/GLOB Ratio 0.9 RATIO (0.9-2.4); AST(SGOT) 26 U/L (15-37); Alanine Aminotransfer ALT/SGPT 20 U/L (13-56); Albumin, Serum 3.4 g/dL (3.2-5.0); Alkaline Phosphatase 63 U/L (45-117); Anion Gap 11 (5-15); BUN 32 mg/dL (7-18); BUN/Creat Ratio 26.2 RATIO (10-20); Calcium,Total 9.4 mg/dL (8.5-10.1); Chloride 99 mmol/L (98-107); Cholesterol 128 mg/dL (200); Creatinine, Serum 1.22 mg/dL (0.55-1.02); EST Glomerular Filtration Rate 45 mL/min (>60); Est Glom Filt Rate - Afr Amer 54 mL/min (>60); Ferritin 69 ng/mL (8-252); Globulin 3.8 g/dL (2.2-4.2); Glucose 253 mg/dL (74-106); High Density Lipoprotein 26 mg/dL; Iron 56 ug/dL (50-170); Iron Binding Capacity,Total 407 ug/dL (250-450); Phosphorus 2.7 mg/dL (2.5-4.9); Potassium 3.8 mmol/L (3.5-5.1); Protein, Total 7.2 g/dL (6.4-8.2); Sodium Level 136 mmol/L (136-145); Triglycerides 293 mg/dL; Very Low Density Lipoprotein 59 mg/dL (5-40)
[2022-08-30 08:25] LABS: PTHIN 13.1 pg/mL (18.4-80.1)
== END | disposition home or self-care (01) ==
LOC: MFPLAB 15:29
PROVIDERS: PCP Family Medicine; Visit Provider Family Medicine
DX: D64.9 Anemia, unspecified (principal); E11.65 Type 2 diabetes mellitus with hyperglycemia; E55.9 Vitamin D deficiency, unspecified
CPT/HCPCS: 36415; 80053; 80061; 81001; 82043; 82306; 82570; 82607; 82728; 82746; 83036; 83540; 83550; 83970; 84100; 84156; 85025

== ENCOUNTER → 2023-01-09 | Outpatient (CLI) | payer MEDICARE, SELFPAY ==
[2023-01-09 17:42] LABS: Absolute Lymphocyte Count 1.79 X10^3/uL (0.83-4.51); Absolute Neutrophil Count 6.4 X10^3/uL (2.0-7.7); Basophil# 0.02 X10^3/uL; Basophil% 0.2 % (0-1); Eosinophil# 0.09 X10^3/uL; Hematocrit 35.9 % (37-47); Hemoglobin 11.3 g/dL (12.0-15.0); Lymphocyte # 1.79 X10^3/ul (0.83-4.51); Lymphocyte % 20.1 % (19-41); Mean Corp Hgb Conc 31.5 g/dL (32-36); Mean Corpuscular Hgb 28.3 pg (27.0-32.0); Mean Platelet Vol. 9.3 fl (6.2-12.0); Monocyte% 6.7 % (0-10); NRBC Flagged by Analyzer 0 % (0-5); Neutrophil % 71.8 % (47-70); Platelet Count 308 K/mm3 (150-450); RBC Distribution Width CV 14.8 % (11.6-14.6); RBC Distribution Width SD 49.2 fl (35.1-43.9); Red Blood Count 3.99 M/mm3 (4.2-5.4); White Blood Count 8.9 K/mm3 (4.4-11.0)
[2023-01-09 18:08] LABS: ALB/GLOB Ratio 0.9 RATIO (0.9-2.4); AST(SGOT) 54 U/L (15-37); Alanine Aminotransfer ALT/SGPT 27 U/L (13-56); Albumin, Serum 3.7 g/dL (3.2-5.0); Alkaline Phosphatase 66 U/L (45-117); Anion Gap 9 (5-15); BUN 47 mg/dL (7-18); BUN/Creat Ratio 33.1 RATIO (10-20); Calcium,Total 9.5 mg/dL (8.5-10.1); Chloride 100 mmol/L (98-107); Cholesterol 132 mg/dL (200); Creatinine, Serum 1.42 mg/dL (0.55-1.02); EST Glomerular Filtration Rate 38 mL/min (>60); Est Glom Filt Rate - Afr Amer 46 mL/min (>60); Globulin 4.1 g/dL (2.2-4.2); Glucose 145 mg/dL (74-106); High Density Lipoprotein 33 mg/dL; Phosphorus 4.2 mg/dL (2.5-4.9); Potassium 4.1 mmol/L (3.5-5.1); Protein, Total 7.8 g/dL (6.4-8.2); Sodium Level 137 mmol/L (136-145); Triglycerides 270 mg/dL; Very Low Density Lipoprotein 54 mg/dL (5-40)
[2023-01-09 18:11] LABS: Hemoglobin A1c 6.8 % (3.8-5.6)
[2023-01-09 18:30] LABS: Vitamin B12 > 2000 pg/mL (211-911); Vitamin D,25 Hydroxy 51.7 ng/mL
[2023-01-10 10:02] LABS: PTHIN 22.2 pg/mL (18.4-80.1)
[2023-01-11 15:09] LABS: Bacteria 0 SEEN /hpf (None Seen); Mucous, Urine 0 SEEN /hpf (<or=2+); Red Blood Cells-Urine 0 SEEN /hpf (0-5); Squamous Epithelial Cells - UA 0 SEEN /hpf (5-10)
[2023-01-11 17:57] LABS: Color, Urine Yellow (Yellow); Glucose, Dipstick Normal (Normal); Ketone-Dipstick Negative (Negative); Leukocyte Esterase-Dipstick Negative /ul (Negative); Nitrite-Dipstick Negative (Negative); Occult Blood-Urine Negative /ul (Negative); Protein-Dipstick Negative (Negative); Specific Gravity, Urine 1.015 (1.002-1.030); Urine Bilirubin Dipstick Negative (Negative); Urine Clarity Clear (Clear); Urine Urobilinogen Normal (Normal)
[2023-01-11 18:16] LABS: White Blood Cells 0-5 SEEN /hpf (0-5)
[2023-01-11 18:30] LABS: Microalbumin,Random Urine 7.3 mg/L (NO RANGE EST.); Microalbumin:Creatinine Ratio 8.8 mg/g CRE (<30 mg/g CRE); Protein, Urine (Random) 7.8 mg/dL (<11.9); Protein:Creat Ratio 94 mg/g CRE (0-200)
== END | disposition home or self-care (01) ==
LOC: MFPLAB 17:02
PROVIDERS: PCP Family Medicine; Visit Provider Family Medicine
DX: E11.22 Type 2 diabetes mellitus with diabetic chronic kidney disease (principal); N18.30 Chronic kidney disease, stage 3 unspecified; M85.80 Other specified disorders of bone density and structure, unspecified site
CPT/HCPCS: 36415; 80053; 80061; 81001; 82043; 82306; 82570; 82607; 83036; 83970; 84100; 84156; 85025

== ENCOUNTER → 2023-05-24 | Outpatient (CLI) | payer MEDICARE, SELFPAY ==
--- NOTE | 2023-05-24 15:22 | RAD_ITS ---
INDICATION: PAIN, FALL EXAMINATION/TECHNIQUE: X-RAY - XR Spine Lumbar 2 or 3 Views COMPARISON: Lumbar spine radiograph August 05, 2019., Thoracic spine radiograph May 24, 2023 FINDINGS: VERTEBRAE: 5 nonrib-bearing lumbar type vertebra with additional partial lumbarization of S1. S-shaped lateral curvature of the thoracolumbar spine, worsened from prior exam. Multilevel lower lumbar facet arthropathy, severe at L3-4 and L4-5 and moderate at L5-S1. Interval anterior compression deformity at T11 better assessed on thoracic spine radiograph. Interval age-indeterminate superior endplate compression fracture at L4 with 6% anterior vertebral height loss and worsening of chronic grade 1 anterolisthesis of L4-L5. Increased chronic mild anterolisthesis L5 on S1. Partially seen left femoral neck internal fixation. Mild bilateral sacroiliac joint degenerative change. Partially seen thoracic sternotomy wires. DISCS: Mild disc height loss L3-4 and moderate disc height loss at L4-5 and L5-S1 with worsening from prior exam INCLUDED ABDOMEN: Included bowel gas pattern is non-obstructive. Aortic atherosclerosis. RAD/Lumbar Spine 2 or 3 Views IMPRESSION: Interval age-indeterminate anterior compression fractures T11 and L4. Correlate for localized tenderness. CT or MRI could further assess chronicity as clinically indicated. Worsened lower lumbar spondylosis and degenerative listhesis compared with August 05, 2019. Electronically Signed: Sanjiv Jose MD at 10:47 EST Reading Location ID and State: [facility] [place] Tel , Service support ,
--- NOTE | 2023-05-24 15:22 | RAD_ITS ---
INDICATION: PAIN,FALL EXAMINATION/TECHNIQUE: X-RAY - XR Spine Thoracic 3 Views COMPARISON: Lumbar spine radiograph on same day. Chest radiograph May 18, 2021 FINDINGS: VERTEBRAE: Interval age-indeterminate T11 compression fracture with 15% anterior vertebral height loss and mildly exaggerated kyphosis, new compared with May 18, 2021. Increased dextrocurvature of the lower thoracic spine. Vertebral body heights otherwise preserved. No spondylolisthesis. DISCS: Mild disc height loss at T10-T11. INCLUDED CHEST/ABDOMEN: Sternotomy wires are midline and intact. Elevated right hemidiaphragm unchanged from May 18, 2021. RAD/Thoracic Spine 3 Views IMPRESSION: Age-indeterminate anterior compression deformity T11 as noted on lumbar spine radiograph, new from May 18, 2021. Correlate for localized tenderness. CT or MRI could further assess chronicity as clinically indicated. Electronically Signed: Sanjiv Jose MD at 1:22 EST ,
--- OUTSIDE RECORDS SUMMARY | 2023-05-24 16:43 | XMS RPT_ITS | CCD ---
Author Name Unknown Address [address] [place] [address] Organization [facility] Care Team Providers Care [employer] Name Role Phone LEONELA BRUNNER Unavailable Unavailable BRENTON SCHMITT JR. Unavailable Unavailable LEONELA BRUNNER Unavailable Unavailable BRENTON SCHMITT JR. Unavailable Unavailable LEONELA BRUNNER Unavailable Unavailable BRENTON SCHMITT JR. Unavailable Unavailable LEONELA BRUNNER Unavailable Unavailable BRENTON SCHMITT JR. Unavailable Unavailable LEONELA BRUNNER Unavailable Unavailable BRENTON SCHMITT JR. Unavailable Unavailable Problems Active Problems Problem Classification Problem Date Documented Da te Episodic/Chronic Disorders of lipid metabolism (2 sources) Hyperlipidemia, unspecified; Translations: [Hyperlipidemia, unspecified] Onset: 10-09-2017 Chronic Essential hypertension (2 sources) Essential (primary) hypertension; Translations: [Essential (primary) hypertension] Onset: 10-09-2017 Chronic Past or Other Problems Problem Classification Problem Date Documented Da te Episodic/Chronic Other aftercare (2 sources) Other correction (current) drug therapy; Translations: [Other correction (current) drug therapy] Onset: 04-10-2017 Episodic Results Test Name Value Interpretation Reference Range Facil ity Encounters Encounter Date Encounter Type Care Provider Facility Start: 10-09-2017 End: 10-14-2017 Patient encounter LEONELA BRUNNER Facility:[facility] Start: 09-26-2017 End: 10-01-2017 Patient encounter LEONELA BRUNNER Facility:[facility] Start: 04-30-2017 End: 05-01-2017 Patient encounter LEONELA BRUNNER Facility:[facility] Start: 04-10-2017 End: 04-15-2017 Patient encounter LEONELA BRUNNER Facility:[facility] Start: 11-16-2016 End: 11-17-2016 Patient encounter LEONELACLARA BRUNNER Facility:[facility] Payers Date Payer Category Payer Medicare [id number] Summary Purpose Family History No Family History Records Found Advance Directives No Advanced Directives Records Found Additional Source Comments INFORMATION SOURCE (unrecogn ized section and content) FOR RECORDS PERTAINING TO PATIENTS WHO ARE OR HAVE BEEN ENROLLED IN A CHEMICAL DEPENDENCY/SUBSTANCEABUSE PROGRAM, SOME INFORMATION MAY BE OMITTED. This clinical summary was aggregated from multiple sources. Caution should be exercised in using it in the provision of clinical care. This summary normalizes information from multiple sources, and as a consequence, information in this document may materially change the coding, format and clinical context of patient data. In addition, data may be omitted in some cases. CLINICAL DECISIONS SHOULD BE BASED ON THE PRIMARY CLINICAL RECORDS. [facility] [employer] [facility]. provides no warranty or guarantee of the accuracy or completeness of information in this document.
[2023-05-24 17:38] LABS: Absolute Lymphocyte Count 1.45 X10^3/uL (0.83-4.51); Absolute Neutrophil Count 5.2 X10^3/uL (2.0-7.7); Basophil# 0.02 X10^3/uL; Basophil% 0.3 % (0-1); Eosinophil# 0.14 X10^3/uL; Eosinophils% 1.9 % (0-5); Hematocrit 38.1 % (37-47); Hemoglobin 11.5 g/dL (12.0-15.0); Lymphocyte # 1.45 X10^3/ul (0.83-4.51); Lymphocyte % 19.5 % (19-41); Mean Corp Hgb Conc 30.2 g/dL (32-36); Mean Corpuscular Hgb 27.1 pg (27.0-32.0); Mean Corpuscular Volume 89.6 fL (81-99); Mean Platelet Vol. 10.4 fl (6.2-12.0); Monocyte# 0.56 X10^3/uL; Monocyte% 7.5 % (0-10); NRBC Flagged by Analyzer 0 % (0-5); Neutrophil # 5.23 X10^3/uL (2.7-7.7); Neutrophil % 70.5 % (47-70); Platelet Count 263 K/mm3 (150-450); RBC Distribution Width CV 14.9 % (11.6-14.6); RBC Distribution Width SD 49.2 fl (35.1-43.9); Red Blood Count 4.25 M/mm3 (4.2-5.4); White Blood Count 7.4 K/mm3 (4.4-11.0)
[2023-05-24 17:56] LABS: Color, Urine Yellow (Yellow); Glucose, Dipstick Normal (Normal); Ketone-Dipstick Negative (Negative); Leukocyte Esterase-Dipstick 25 /ul (Negative); Nitrite-Dipstick Negative (Negative); Occult Blood-Urine Negative /ul (Negative); Protein-Dipstick Negative (Negative); Specific Gravity, Urine 1.015 (1.002-1.030); Urine Bilirubin Dipstick Negative (Negative); Urine Clarity Clear (Clear); Urine Urobilinogen Normal (Normal)
[2023-05-24 18:16] LABS: Vitamin B12 1308 pg/mL (211-911); Vitamin D,25 Hydroxy 45.2 ng/mL
[2023-05-24 18:17] LABS: Hemoglobin A1c 6.8 % (3.8-5.6)
[2023-05-24 18:18] LABS: PTHIN 22.3 pg/mL (18.4-80.1)
[2023-05-24 18:30] LABS: Microalbumin,Random Urine 5.4 mg/L (NO RANGE EST.); Microalbumin:Creatinine Ratio 17.8 mg/g CRE (<30 mg/g CRE); Protein, Urine (Random) < 6.0 mg/dL (<11.9); Protein:Creat Ratio 166 mg/g CRE (0-200)
[2023-05-24 18:38] LABS: AST(SGOT) 48 U/L (15-37); Alanine Aminotransfer ALT/SGPT 24 U/L (13-56); Albumin, Serum 3.8 g/dL (3.2-5.0); Alkaline Phosphatase 101 U/L (45-117); Anion Gap 8 (5-15); BUN 44 mg/dL (7-18); BUN/Creat Ratio 32.8 RATIO (10-20); Calcium,Total 9.3 mg/dL (8.5-10.1); Chloride 98 mmol/L (98-107); Cholesterol 129 mg/dL (200); Creatinine, Serum 1.34 mg/dL (0.55-1.02); EST Glomerular Filtration Rate 40 mL/min (>60); Est Glom Filt Rate - Afr Amer 49 mL/min (>60); Ferritin 31 ng/mL (8-252); Glucose 247 mg/dL (74-106); High Density Lipoprotein 29 mg/dL; Iron 97 ug/dL (50-170); Iron Binding Capacity,Total 520 ug/dL (250-450); Phosphorus 3.4 mg/dL (2.5-4.9); Potassium 3.9 mmol/L (3.5-5.1); Protein, Total 7.8 g/dL (6.4-8.2); Sodium Level 135 mmol/L (136-145); Triglycerides 304 mg/dL; Very Low Density Lipoprotein 61 mg/dL (5-40)
== END | disposition home or self-care (01) ==
LOC: MTLAB 15:20
PROVIDERS: PCP Family Medicine; Referring Provider Family Medicine; Visit Provider Family Medicine
DX: E11.22 Type 2 diabetes mellitus with diabetic chronic kidney disease (principal); N18.30 Chronic kidney disease, stage 3 unspecified; E55.9 Vitamin D deficiency, unspecified; M54.50 Low back pain, unspecified; M54.6 Pain in thoracic spine
CPT/HCPCS: 72072; 72100; 80053; 80061; 81002; 82043; 82306; 82570; 82607; 82728; 82746; 83036; 83540; 83550; 83970; 84100; 84156; 85025

== ENCOUNTER → 2023-06-21 | Outpatient (CLI) | payer MEDICARE, SELFPAY | END | disposition home or self-care (01) | LOC: SL 20:52 | PROVIDERS: PCP Family Medicine; Referring Provider Nurse Practitioner Acute Care; Visit Provider Nurse Practitioner Acute Care | DX: G47.30 Sleep apnea, unspecified (principal) | CPT/HCPCS: 95810 ==

== ENCOUNTER → 2023-07-11 | Outpatient (CLI) | payer MEDICARE, SELFPAY | END | disposition home or self-care (01) | LOC: SL 13:18 | PROVIDERS: PCP Family Medicine; Referring Provider Nurse Practitioner Acute Care; Visit Provider Nurse Practitioner Acute Care | DX: Z46.89 Encounter for fitting and adjustment of other specified devices (principal) ==

== ENCOUNTER → 2023-07-23 | Outpatient (CLI) | payer MEDICARE, SELFPAY ==
--- NOTE | 2023-07-23 15:43 | MRI_ITS ---
ACR Level 3 findings have been noted. An addendum which confirms receipt of the report will follow. EXAM: MR THORACIC SPINE WITHOUT INTRAVENOUS CONTRAST CLINICAL INDICATION: compression fracture TECHNIQUE: Multiplanar and multisequence MR images of the thoracic spine without intravenous contrast. COMPARISON: No relevant prior studies available. FINDINGS: VERTEBRAE: There is a compression fracture T10 with visible oblique fracture line extending from the mid to posterior third of the upper endplate to the anterior-inferior body sparing the endplate, with high signal intensity edema on inversion recovery images. There is no significant retropulsion, the posterior upper body slightly bulges posteriorly roughly 2 mm. The anterior T10 body measures roughly 1.4 cm craniocaudal compared to 2 cm craniocaudal at T11 anterior body. Significant spinal stenosis or chet cord impingement. There is mild dextroscoliosis of the lower thoracic spine. EPIDURAL SPACE: Unremarkable as visualized. No epidural fluid collection. DISCS/SPINAL CANAL/NEURAL FORAMINA: Mild degenerative changes at multiple levels. Normal spinal canal and neuroforamina. SPINAL CORD: Unremarkable. Normal in signal and morphology. Normal conus medullaris. SOFT TISSUES: Unremarkable. OTHER FINDINGS: Moderately elevated right hemidiaphragm. MRI/Spine Thoracic (Routine) IMPRESSION: Compression fracture of T10, acute to subacute, with visible intense bone marrow edema. Decreased body height suggests subacute fracture. Minimal posterior T10 body bulging. No significant retropulsion or spinal stenosis. No additional fractures. Electronically Signed: Ketty Barrera MD at 22:28 EDT ,
--- NOTE | 2023-07-23 15:43 | MRI_ITS ---
ACR Level 3 findings have been noted. An addendum which confirms receipt of the report will follow. EXAM: MR LUMBAR SPINE WITHOUT INTRAVENOUS CONTRAST CLINICAL INDICATION: compression fracture TECHNIQUE: Multiplanar and multisequence MR images of the lumbar spine without intravenous contrast. COMPARISON: MR thoracic spine on the same date and lumbar spine radiographs on the same date. FINDINGS: VERTEBRAE: Mild superior endplate compression deformity of L4 with associated Modic type II endplate signal changes and no edema indicating that this is a chronic deformity. Less than 25% vertebral body height loss. Acute or subacute T11 compression fracture is better demonstrated on comparison examination. Grade 1 anterolisthesis of L4 upon L5 secondary to severe facet arthrosis. SPINAL CORD: No significant abnormality. Normal position and signal intensity of the conus medullaris. SACRUM/COCCYX: There is transitional anatomy at the lumbosacral junction with lumbarization of S1. SOFT TISSUES: No significant abnormality. DISCS/SPINAL CANAL/NEURAL FORAMINA: L1-L2: Mild bilateral facet arthrosis. No disc herniation, spinal canal stenosis, or neural foraminal narrowing. L2-L3: Mild disc bulge and mild bilateral facet arthrosis. Mild bilateral neural foraminal narrowing. No significant spinal canal stenosis. L3-L4: Disc bulge and severe bilateral facet arthrosis. Moderate bilateral neural foraminal narrowing, right greater than left and mild to moderate spinal canal stenosis. L4-L5: Degenerative anterolisthesis secondary to severe bilateral facet arthrosis. Disc bulge/pseudobulge with superimposed central disc herniation and ligamentum flavum thickening. Severe spinal canal stenosis with effacement of CSF from the thecal sac and indeterminate degree of intrathecal nerve root impingement. Right L4 and bilateral L5 nerve root impingement. L5-S1: Disc bulge and severe bilateral facet arthrosis. Mild spinal canal stenosis and [id number] bilateral neural foraminal narrowing. Right foraminal to extraforaminal L5 nerve root impingement. Abutment without impingement of the left S1 nerve root. S1-S2: Transitional anatomy. No spinal canal or neural foraminal stenosis. MRI/Spine Lumbar (Routine) IMPRESSION: 1. Mild superior endplate compression deformity of L4 with associated Modic type II endplate signal changes and no edema indicating that this is a chronic deformity. Less than 25% vertebral body height loss. 2. Acute or subacute T11 compression fracture is better demonstrated on comparison examination. 3. Grade 1 anterolisthesis of L4 upon L5 secondary to severe facet arthrosis. 4. Multilevel degenerative changes worse at L4-L5. Right L4 and bilateral L5 nerve root impingement. At L5-S1, there is right foraminal to extraforaminal L5 nerve root impingement as well. 5. Transitional anatomy at the lumbosacral junction as described above may be surgically relevant. This also may result in discrepancies in the enumeration of the vertebrae between examinations. Electronically Signed: Colton Bennett DO at 22:57 EDT ,
== END | disposition home or self-care (01) ==
LOC: MRI 15:38
PROVIDERS: PCP Family Medicine; Referring Provider Family Medicine; Visit Provider Family Medicine
DX: M54.9 Dorsalgia, unspecified (principal)
CPT/HCPCS: 72146; 72148

== ENCOUNTER → 2023-08-22 | Outpatient (CLI) | payer MEDICARE, SELFPAY ==
--- NOTE | 2023-08-22 10:39 | BD_ITS ---
STUDY: DUAL ENERGY X-RAY ABSORPTIOMETRY / DXA REASON FOR EXAM: Female, 83 years old. [id number] -- OSTEOPENIA/COMPRESSION FX TECHNIQUE: Bone Mineral Density (BMD) measurements of lumbar spine and right hip were obtained. COMPARISON: Comparison is made with prior study August 31, 2020. FINDINGS: Lumbar Spine (L1-L4): g/cm2 (0.967) / T-score (-0.7) / Z-score (2.0) Findings are suggestive of normal bone density with a low fracture risk. Right Femur Total: g/cm2 (0.788) / T-score (-1.3) / Z-score (0.9) Right Femoral Neck: g/cm2 (0.640) / T-score (-1.9) / Z-score (0.5) The T-Scores on the most recent prior examination were: Lumbar Spine (L1-L4): There has been worsening of bone density since the previous examination. Right Femur Total: which represents an improvement of 0.3%. BD/Dexa Bone Density Study IMPRESSION: The patient is considered osteopenic as outlined below according to World [place] Organization (WHO) criteria with a moderate fracture risk. There has been worsening of bone density since the previous examination. Reference Information: The T-score is the number of standard deviations above or below the standard which is normal for young adults at their peak bone mineral density. The World Health Organization (WHO) interprets the T-scores as follows: Above -1 Normal bone density Between -1 and -2.5 Osteopenia Equal to / or below -2.5 Osteoporosis As a practical clinical guideline, osteopenia may be graded as follows: Mild -1 through -1.5 Moderate -1.6 through -2.0 Severe -2.1 through -2.4 The Z-score is the number of standard deviations above or below age-matched controls. A Z-score of less than -1.5 would be considered abnormal. References: 1. NIH Osteoporosis and Related Bone Diseases www osteo.org 2. International Society for Clinical Densitometry www iscd.org 3. National Osteoporosis Foundation www nof.org Electronically Signed: Matt Erazo MD at 12:21 EDT ,
== END | disposition home or self-care (01) ==
LOC: OPBD 10:22
PROVIDERS: PCP Family Medicine; Referring Provider Anesthesiology Pain Medicine; Visit Provider Anesthesiology Pain Medicine
DX: M85.89 Other specified disorders of bone density and structure, multiple sites (principal)
CPT/HCPCS: 77080

== ENCOUNTER 2023-09-14 11:56 | Emergency (ER) | payer MEDICARE, SELFPAY ==
[2023-09-14 11:56] VITALS: BP 151/57; PULSE 85; RESP 18; TEMP 36.5; O2SAT 95
--- NOTE | 2023-09-14 12:10 | EX.ED.DYSGE1 ---
HPI History of Present Illness Chief Complaint: Cellulitis Informant: patient Onset/Context/Timing Onset: Days (2 days) Context: Gradual Onset Narrative Narrative: Patient presents secondary to redness on her left leg and concern for cellulitis. Patient reported has a history of recurrent cellulitis to the left lower extremity. She injured her left leg on (2 days ago) and states that her shoe scraped her leg. She now notes some very mild redness and pain. She is concerned that she is going to develop worsening cellulitis again. She did have a back procedure yesterday at the outpatient surgery center where they injected cement into her vertebrae. She was not placed on antibiotics after the procedure. [facility] Medical History Impingement of left shoulder Intertriginous candidiasis Incontinence Physical debility CPAP (continuous positive airway pressure) dependence Sleep apnea Fracture of right wrist with routine healing Obesity Right bundle branch block (RBBB) KATTY (obstructive sleep apnea) Pancreatitis Diabetes mellitus GERD (gastroesophageal reflux disease) HLD (hyperlipidemia) Essential (primary) hypertension Atherosclerotic heart disease of [place] coronary artery without angina pectoris Home Medications ?Medication ?Instructions ?Recorded ?Last Taken ?Type metformin 500 mg tablet 1,000 mg PO BIDCM diabetes 07/22/17 05/18/21 History aspirin 81 mg tablet,delayed 81 mg PO DAILY heart 07/24/18 05/18/21 History release (Adult Aspirin Regimen) fenofibrate 160 mg tablet 160 mg PO DAILY CHOLESTEROL 05/18/21 05/18/21 History furosemide 40 mg tablet 40 mg PO DAILY edema 05/18/21 05/18/21 History potassium chloride 10 mEq 10 meq PO DAILY supplement 05/22/21 Unknown History tablet,extended release rosuvastatin 10 mg tablet (Crestor) 10 mg PO DAILY cholesterol 05/22/21 Unknown History pantoprazole 40 mg tablet,delayed 40 mg PO DAILY 30 days #30 tabs 06/08/21 Unknown Rx release acetaminophen 500 mg capsule 500 mg PO Q6H PRN Pain 04/26/22 Unknown History buspirone 10 mg tablet 10 mg PO TID mood 04/26/22 Unknown History cholecalciferol (vitamin D3) 25 75 mcg PO DAILY 04/26/22 Unknown History mcg (1,000 unit) capsule fluticasone propionate 50 1 spray intranasal DAILY 04/26/22 Unknown History mcg/actuation nasal spray,suspension nystatin 100,000 unit/gram topical 1 applic topical TID 04/26/22 Unknown History ointment sertraline 50 mg tablet (Zoloft) 50 mg PO DAILY 04/26/22 Unknown History clopidogrel 75 mg tablet (Plavix) 75 mg PO DAILY Patient is OUT of 07/07/22 Unknown History medication alprazolam 0.25 mg tablet 0.25 mg PO BID PRN anxiety 05/30/23 Unknown History calcium carbonate 600 mg PO DAILY 06/10/23 Unknown History cephalexin 500 mg capsule 500 mg PO Q12 #14 CAPSULES 09/14/23 Unknown Rx Allergy/AdvReac Type Severity Reaction Status Date / Time adhesive tape AdvReac Unknown Verified 09/14/23 11:56 morphine AdvReac Vomiting Verified 09/14/23 11:56 Mzyuurr-GJN-IhR Reductase AdvReac Pain in Verified 09/14/23 11:56 Inhibitor (Krpuusr-Jmu-Lmm joints Reductase Inhibitor) Family History Mother Hypertension Other CAD (coronary artery disease) Surgical History Fracture of left hip requiring operative repair Status post cardiac surgery Hx of hysterectomy Hx of cholecystectomy Hx of appendectomy History of coronary artery stent placement (11/17/14) 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) Social History household members: spouse Smoking Status: Never smoker alcohol intake: never substance use type: does not use caffeine: Yes Type: carbonated beverages what type of physical activity do you participate in: none seatbelt use: always do you feel safe at home: Yes ROS ROS ED Constitutional Constitutional ED: Denies chills or fever(s) Eyes Eyes: Denies discharge from eye(s) ENT ENT ED: Denies discharge from eye(s), rhinorrhea or sore throat Cardiovascular Cardiovascular: Denies chest pain or palpitations Respiratory/Chest Respiratory/Chest: Denies cough or dyspnea Gastrointestinal Gastrointestinal: Denies abdominal pain, nausea or vomiting Musculoskeletal Musculoskeletal: Reports extremity pain; Denies back pain Integumentary Reports Abrasions; Denies rash Neurologic Neurologic: Denies headache(s) or weakness Psychiatric Psychiatric: Denies anxiety or depression Allergic/Immunologic Allergic/Immunologic ED: Denies lip swelling or urticaria EXAM Physical Exam Const Vital Signs: 09/14/23 11:56 Temperature 97.7 F L Temperature Source Temporal Pulse Rate 85 Respiratory Rate 18 Blood Pressure 151/57 H Blood Pressure Mean 88 Pulse Ox 95 Oxygen Delivery Method Room Air Positive well nourished and well developed General Appearance ED: well developed HEENT Reports moist mucous membranes Eyes EOMs intact bilaterally Chest Wall inspection of chest normal and palpation of chest normal Resp normal respiratory effort and clear to auscultation bilaterally Cardio regular rate and regular rhythm GI non-tender Palpation: soft Extremity Extremity Narrative: Patient has multiple bruises to the upper extremities in various stages of healing. Lower extremity examination reveals bilateral ankle edema, 3-4+. She has very mild erythema noted to the left garcia and it is slightly warmer when compared to the right leg. I do not see any open wounds on the lower extremities at this time. Neuro oriented x3 Psych mental status grossly normal MDM MDM MDM Narrative Medical decision making narrative: Patient does have very mild erythema and warmth to the left lower extremity. She has a history of recurrent cellulitis with similar presentation. I will cover her with a course of Keflex, first dose given here. Return instructions were provided. Discharge Plan Triage Chief Complaint: Cellulitis ED Provider: Viktoriya Lovelace Dx/Rx/DC Orders Clinical Impression: Cellulitis Instructions: ED Cellulitis Prescriptions: New cephalexin 500 mg capsule 500 mg PO Q12 Qty: 14 0RF No Action aspirin [Adult Aspirin Regimen] 81 mg tablet,delayed release (DR/EC) 81 mg PO DAILY buspirone 10 mg tablet 10 mg PO TID nystatin 100,000 unit/gram ointment 1 applic topical TID fluticasone propionate 50 mcg/actuation spray,suspension 1 spray intranasal DAILY sertraline [Zoloft] 50 mg tablet 50 mg PO DAILY acetaminophen 500 mg capsule 500 mg PO Q6H PRN (Reason: Pain) cholecalciferol (vitamin D3) 25 mcg (1,000 unit) capsule 75 mcg PO DAILY calcium carbonate 600 mg calcium (1,500 mg) tablet 600 mg PO DAILY metformin 500 mg tablet 1,000 mg PO BIDCM Patient Comments: 1000mg IN MORNING, 1500mg IN EVENING fenofibrate 160 mg tablet 160 mg PO DAILY Patient Comments: TAKE 1 TABLET BY MOUTH ONCE DAILY furosemide 40 mg tablet 40 mg PO DAILY potassium chloride 10 mEq tablet extended release 10 meq PO DAILY rosuvastatin [Crestor] 10 mg tablet 10 mg PO DAILY pantoprazole 40 mg Tablet,Delayed Release (Dr/Ec) 40 mg PO DAILY 30 Days Qty: 30 0RF alprazolam 0.25 mg tablet 0.25 mg PO BID PRN (Reason: anxiety) clopidogrel [Plavix] 75 mg tablet 75 mg PO DAILY Primary Care Provider: Michele Lang Referrals: Michele Lang MD [Primary Care Provider] - Print Language: Armenian Disposition Disposition: Home, Self Care
[2023-09-14] MEDS: Cephalexin 250 MG Capsule 500 MG PO (12:30)
[2023-09-14 12:40] VITALS: BP 151/57; PULSE 85; RESP 18; TEMP 36.5; O2SAT 95
== END 2023-09-14 12:49 | disposition home or self-care (01) ==
PROVIDERS: Emergency Provider Emergency Medicine; PCP Family Medicine; Visit Provider Emergency Medicine
DX: L03.116 Cellulitis of left lower limb (principal); E11.9 Type 2 diabetes mellitus without complications; I25.10 Atherosclerotic heart disease of native coronary artery without angina pectoris; G47.33 Obstructive sleep apnea (adult) (pediatric); Z95.5 Presence of coronary angioplasty implant and graft; Z95.1 Presence of aortocoronary bypass graft
CPT/HCPCS: 99282

== ENCOUNTER → 2023-09-16 | Outpatient (CLI) | payer MEDICARE, SELFPAY ==
--- NOTE | 2023-09-13 12:30 | BONBX_PTH ---
PATIENT: TAMICA REBOLLEDO LOC: [facility] U#:[id number] AGE/SX: 83/F ROOM: RE09/16/[address]: Dr. Willy Gutierrez MD : 1940 BED: DIS: 09/16/2023 SPEC #: [id number] RECD: 09/17/23 10:09 STATUS: LONNIE REBogdan #: [id number] HANNA: 09/13/23 12:[address]: Willy Gutierrez DEPT: SURGICAL PATHOLOGY RECD BY: Anuradha Guerra ENTERED: 09/17/23 10:09 SP TYPE: Bone OTHR DR: Dr. Michele Lang MD [facility] Tissues: Vertebra, NOS Procedures: Decalcification bone/plaque Surgery Specimen Level V HEADER OPERATION: Thoracic kyphoplasty T10, T11 PRE-OP DIAGNOSIS: Age-related osteoporosis with current pathologic fracture, vertebrae, initial encounter for fracture TISSUE SUBMITTED: Bone and tissue vertebral body T10-T11 MICROSCOPIC DIAGNOSIS T10-T11, vertebral body, bone biopsy: Bone and marrow elements with trilineage hematopoiesis. No evidence of malignancy. MAHESH/ 09/18/2023 MICROSCOPIC DESCRIPTION Slides are reviewed. GROSS DESCRIPTION Received in fixative is one container labeled with the patient's name and designated Vertebral body T10-T11. The specimen consists of multiple fragments of bone measuring in aggregate 1.0 x 0.2 x 0.1cm. The entire specimen is submitted in one cassette after decalcification. YASHIRA/ 09/17/2023 TC:5 CPT:74284,65481
== END | disposition home or self-care (01) ==
LOC: LABSPEC 15:45
PROVIDERS: PCP Family Medicine; Referring Provider Anesthesiology Pain Medicine; Visit Provider Anesthesiology Pain Medicine
DX: M80.08XA Age-related osteoporosis with current pathological fracture, vertebra(e), initial encounter for fracture (principal); X58.XXXA Exposure to other specified factors, initial encounter
CPT/HCPCS: 88307; 88311

== ENCOUNTER → 2023-09-18 | Outpatient (CLI) | payer MEDICARE, SELFPAY ==
--- NOTE | 2023-09-18 09:17 | VDLE_ITS ---
Reason For Study: BLE Edema RIGHT LEFT GSV is normal. GSV is normal. CFV is compressible, spontaneous, phasic, CFV is compressible, spontaneous, phasic, competent and demonstrates normal competent, and demonstrates normal augmentation. augmentation. FV is compressible, spontaneous, phasic, FV is compressible, spontaneous, phasic, competent and demonstrates normal competent and demonstrates normal augmentation. augmentation. POP V is compressible, spontaneous, phasic, POP V is compressible, spontaneous, phasic, competent and demonstrates normal competent and demonstrates normal augmentation. augmentation. T/P Trunk is compressible. T/P Trunk is compressible. PTV is compressible. PTV is compressible. RT PerV is compressible. LT PerV is compressible. Bing V visualized in segments due to swelling Bing V visualized in segments due to swelling and edema. and edema. Procedure This is a venous duplex using B-mode, color flow and spectral Doppler. Exam performed in department. The study was technically difficult. A preliminary report was called and/or faxed to Dr. Lang office. VL/Venous Duplex US - [place] Extrem Interpretation Summary Deep veins of the bilateral lower extremities are patent and compressible segme ntally. There is no evidence of bilateral lower extremity deep vein thrombosis. The bilateral great saphenous veins appear patent and compressible segmentally. Limited study below knee bilateral Ordering Physician: Michele Lang Referring Physician: Michele Lang Performed By: Stan Kitchen, RVVirgil
== END | disposition home or self-care (01) ==
LOC: CVS 09:01
PROVIDERS: PCP Family Medicine; Referring Provider Family Medicine; Visit Provider Family Medicine
DX: R60.0 Localized edema (principal)
CPT/HCPCS: 93970

== ENCOUNTER 2023-10-11 11:00 | Outpatient (CLI) | payer MEDICARE, SELFPAY | END 2023-10-11 23:59 | disposition home or self-care (01) | LOC: SL 11:12 | PROVIDERS: PCP Family Medicine; Visit Provider Nurse Practitioner Acute Care | DX: Z46.89 Encounter for fitting and adjustment of other specified devices (principal) ==

== ENCOUNTER 2023-12-06 21:07 | Emergency (ER) | payer MEDICARE, SELFPAY ==
[2023-12-06 21:08] VITALS: BP 142/90; PULSE 76; RESP 18; TEMP 36.3; O2SAT 97
--- NOTE | 2023-12-06 22:00 | RAD_ITS ---
EXAM: XR RIGHT SHOULDER COMPLETE, 2 OR MORE VIEWS CLINICAL INDICATION: injury TECHNIQUE: Two or more views of the right shoulder. COMPARISON: No relevant prior studies available. FINDINGS: BONES/JOINTS: Multiply comminuted fracture right mid clavicle with overlapping of the fragments. Preservation of the joint space. No sclerotic or destructive changes observed. SOFT TISSUES: Unremarkable. No soft tissue swelling or gas. No radiopaque foreign body. RAD/Shoulder min 2 Views IMPRESSION: Multiply comminuted fracture right mid clavicle with overlapping of the fragments. Electronically Signed: Basilio Delong MD at 22:19 EDT ,
--- NOTE | 2023-12-06 22:00 | RAD_ITS ---
EXAM: XR RIGHT CLAVICLE COMPLETE, 2 OR MORE VIEWS CLINICAL INDICATION: injury TECHNIQUE: Frontal and lordotic views of the right clavicle. COMPARISON: No relevant prior studies available. FINDINGS: BONES/JOINTS: Multiple comminuted fracture right mid clavicle with overlapping of the fragments. Preservation of the joint space. No sclerotic or destructive changes observed. SOFT TISSUES: Unremarkable. No soft tissue swelling or gas. No radiopaque foreign body. RAD/Clavicle IMPRESSION: Multiple comminuted fracture right mid clavicle with overlapping of the fragments. Electronically Signed: Basilio Delong MD at 22:18 EDT ,
--- NOTE | 2023-12-06 22:28 | EDS_ITS ---
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 She bruised her right lower leg which is not hurting her that bad and she can walk on it without any difficulty, but the main pain is in her right clavicle area where she has some swelling. She does have some mild right proximal humerus/shoulder pain as well. Denies any other injuries. [facility] Medical History (Reviewed 10/04/23 @ 08:26 by Nargis Prajapati COMMERCIAL LENDING RELATIONSHIP MANAGER, COMMERCIAL LENDING RELATIONSHIP MANAGER-C) Impingement of left shoulder Intertriginous candidiasis Incontinence Physical debility CPAP (continuous positive airway pressure) dependence Sleep apnea Fracture of right wrist with routine healing Obesity Right bundle branch block (RBBB) KATTY (obstructive sleep apnea) Pancreatitis Diabetes mellitus GERD (gastroesophageal reflux disease) HLD (hyperlipidemia) Essential (primary) hypertension Atherosclerotic heart disease of [place] coronary artery without angina pectoris Home Medications ?Medication ?Instructions ?Recorded ?Last Taken ?Type metformin 500 mg tablet 1,000 mg PO BIDCM diabetes 07/22/17 05/18/21 History aspirin 81 mg tablet,delayed 81 mg PO DAILY heart 07/24/18 05/18/21 History release (Adult Aspirin Regimen) fenofibrate 160 mg tablet 160 mg PO DAILY CHOLESTEROL 05/18/21 05/18/21 History furosemide 40 mg tablet 40 mg PO DAILY edema 05/18/21 05/18/21 History potassium chloride 10 mEq 10 meq PO DAILY supplement 05/22/21 Unknown History tablet,extended release rosuvastatin 10 mg tablet (Crestor) 10 mg PO DAILY cholesterol 05/22/21 Unknown History pantoprazole 40 mg tablet,delayed 40 mg PO DAILY 30 days #30 tabs 06/08/21 Unknown Rx release acetaminophen 500 mg capsule 500 mg PO Q6H PRN Pain 04/26/22 Unknown History buspirone 10 mg tablet 10 mg PO TID mood 04/26/22 Unknown History cholecalciferol (vitamin D3) 25 75 mcg PO DAILY 04/26/22 Unknown History mcg (1,000 unit) capsule fluticasone propionate 50 1 spray intranasal DAILY 04/26/22 Unknown History mcg/actuation nasal spray,suspension nystatin 100,000 unit/gram topical 1 applic topical TID 04/26/22 Unknown History ointment sertraline 50 mg tablet (Zoloft) 50 mg PO DAILY 04/26/22 Unknown History clopidogrel 75 mg tablet (Plavix) 75 mg PO DAILY Patient is OUT of 07/07/22 Unknown History medication alprazolam 0.25 mg tablet 0.25 mg PO BID PRN anxiety 05/30/23 Unknown History calcium carbonate 600 mg PO DAILY 06/10/23 Unknown History cephalexin 500 mg capsule 500 mg PO Q12 #14 CAPSULES 09/14/23 Unknown Rx fluconazole 150 mg tablet mg PO 10/04/23 Unknown History gabapentin 100 mg capsule 100 mg PO TID 10/04/23 Unknown History Allergy/AdvReac Type Severity Reaction Status Date / Time adhesive tape AdvReac Unknown Verified 12/06/23 21:13 morphine AdvReac Vomiting Verified 12/06/23 21:13 [id number] Reductase AdvReac Pain in Verified 12/06/23 21:13 Inhibitor (Ecydiyj-Qgy-Vmh joints Reductase Inhibitor) Family History (Reviewed 10/04/23 @ 08:26 by Nargis Prajapati COMMERCIAL LENDING RELATIONSHIP MANAGER, COMMERCIAL LENDING RELATIONSHIP MANAGER-C) Mother Hypertension Other CAD (coronary artery disease) Surgical History (Reviewed 10/04/23 @ 08:26 by Nargis Prajapati COMMERCIAL LENDING RELATIONSHIP MANAGER, COMMERCIAL LENDING RELATIONSHIP MANAGER-C) Fracture of left hip requiring operative repair Status post cardiac surgery Hx of hysterectomy Hx of cholecystectomy Hx of appendectomy History of coronary artery stent placement (11/17/14) 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) Social History (Reviewed 10/04/23 @ 08:26 by Nargis Prajapati COMMERCIAL LENDING RELATIONSHIP MANAGER, COMMERCIAL LENDING RELATIONSHIP MANAGER-C) household members: spouse Smoking Status: Never smoker alcohol intake: never substance use type: does not use caffeine: Yes Type: carbonated beverages what type of physical activity do you participate in: none seatbelt use: always do you feel safe at home: Yes ROS ROS ED Eyes Eyes: Denies change in vision Cardiovascular Cardiovascular: Reports leg edema and other Details: R upper chest pain at clavicle Respiratory/Chest Respiratory/Chest: Denies dyspnea Gastrointestinal Gastrointestinal: Denies abdominal pain Musculoskeletal Musculoskeletal: Reports as per HPI and extremity pain; Denies back pain or neck pain Integumentary Reports Abrasions Neurologic Neurologic: Denies headache(s), paresthesias or weakness EXAM Physical Exam Const Vital Signs: 12/06/23 21:08 12/06/23 21:19 Temperature 97.3 F L Temperature Source Temporal Pulse Rate 76 Respiratory Rate 18 Respiratory Effort Normal Non-Labored Blood Pressure 142/90 H Blood Pressure Mean 107 Pulse Ox 97 Oxygen Delivery Method Room Air Room Air Oxygen Flow Rate (L/min) 95 Positive well nourished and well developed General Appearance ED: well developed and NAD Neck full ROM and supple Chest Wall Chest Narrative: Tender where there is swelling at the right mid clavicle. The acromioclavicular joint and the sternoclavicular joint are both nontender. There is no tenting of the skin which is intact. No other chest wall tenderness. Resp normal respiratory effort and clear to auscultation bilaterally Back/Spine normal ROM and normal to inspection Extremity Extremity Narrative: Can fully abduct right shoulder, there is mild proximal humerus pain but no deformity. There is pain and tenderness at the right mid clavicle. Skin tears right lateral forearm/upper arm, no lacerations require repair no bony tenderness or limitation at the shoulder or wrist. She is wearing a Velcro wrist splint that she states is from a fracture 3 years ago. Contusion with mild tenderness mid right lateral leg, there is no bony tenderness or crepitance or limited weightbearing or range of motion. There is 2+ edema in both lower legs to the mid garcia proximal to the knee. Symmetric. Neuro oriented x3, no focal motor deficits and no sensory deficits noted Sensorium / Orientation: alert Psych mental status grossly normal and thought process normal Skin no wounds Rashes: no rashes MDM MDM MDM Narrative Medical decision making narrative: X-rays of the right clavicle and shoulder were obtained. 3 view x-ray series of the right shoulder on my interpretation negative except for the are seen on the two-view clavicle series as well on my interpretation. It may be mildly displaced. She needs to be placed in a sling only, she is advised uses as needed, she has a cane. I asked her if she felt comfortable going home with a sling as she feels comfortable will get around okay and has help if she needs it. Orthopedic follow-up advised. Discharge Plan Triage Chief Complaint: Fall ED Provider: Karl Cummings Dx/Rx/DC Orders Clinical Impression: Closed fracture of right clavicle, Contusion of lower leg, right, Skin tear of right upper arm without complication Instructions: ED Fracture, Clavicle, ED Skin Tear (Skin Avulsion) Prescriptions: No Action aspirin [Adult Aspirin Regimen] 81 mg tablet,delayed release (DR/EC) 81 mg PO DAILY buspirone 10 mg tablet 10 mg PO TID nystatin 100,000 unit/gram ointment 1 applic topical TID fluticasone propionate 50 mcg/actuation spray,suspension 1 spray intranasal DAILY sertraline [Zoloft] 50 mg tablet 50 mg PO DAILY acetaminophen 500 mg capsule 500 mg PO Q6H PRN (Reason: Pain) cholecalciferol (vitamin D3) 25 mcg (1,000 unit) capsule 75 mcg PO DAILY calcium carbonate 600 mg calcium (1,500 mg) tablet 600 mg PO DAILY fluconazole 150 mg tablet PO gabapentin 100 mg capsule 100 mg PO TID metformin 500 mg tablet 1,000 mg PO BIDCM Patient Comments: 1000mg IN MORNING, 1500mg IN EVENING fenofibrate 160 mg tablet 160 mg PO DAILY Patient Comments: TAKE 1 TABLET BY MOUTH ONCE DAILY furosemide 40 mg tablet 40 mg PO DAILY potassium chloride 10 mEq tablet extended release 10 meq PO DAILY rosuvastatin [Crestor] 10 mg tablet 10 mg PO DAILY pantoprazole 40 mg Tablet,Delayed Release (Dr/Ec) 40 mg PO DAILY 30 Days Qty: 30 0RF alprazolam 0.25 mg tablet 0.25 mg PO BID PRN (Reason: anxiety) clopidogrel [Plavix] 75 mg tablet 75 mg PO DAILY cephalexin 500 mg capsule 500 mg PO Q12 Qty: 14 0RF Primary Care Provider: Michele Lang Referrals: Tonny Cuadra DO [Med Staff - Active Staff] - (call for appt) Michele Lang MD [Primary Care Provider] - Print Language: German Disposition Disposition: Home, Self Care
== END 2023-12-06 22:53 | disposition home or self-care (01) ==
PROVIDERS: Emergency Provider Emergency Medicine; PCP Family Medicine; Visit Provider Emergency Medicine
DX: S42.001A Fracture of unspecified part of right clavicle, initial encounter for closed fracture (principal); E11.9 Type 2 diabetes mellitus without complications; S80.11XA Contusion of right lower leg, initial encounter; S41.111A Laceration without foreign body of right upper arm, initial encounter; S51.811A Laceration without foreign body of right forearm, initial encounter; W18.49XA Other slipping, tripping and stumbling without falling, initial encounter; E66.9 Obesity, unspecified; G47.33 Obstructive sleep apnea (adult) (pediatric); K21.9 Gastro-esophageal reflux disease without esophagitis; E78.5 Hyperlipidemia, unspecified; I10 Essential (primary) hypertension; I25.10 Atherosclerotic heart disease of native coronary artery without angina pectoris; Z95.1 Presence of aortocoronary bypass graft; Z88.5 Allergy status to narcotic agent; Z87.81 Personal history of (healed) traumatic fracture; Z79.84 Long term (current) use of oral hypoglycemic drugs; Z79.82 Long term (current) use of aspirin; Z79.899 Other long term (current) drug therapy
CPT/HCPCS: 73000; 73030; 99283

== ENCOUNTER → 2023-12-10 | Outpatient (CLI) | payer MEDICARE, SELFPAY ==
--- NOTE | 2023-12-10 15:30 | RAD_ITS ---
INDICATION: Cough EXAMINATION/TECHNIQUE: X-RAY - XR Chest 2 Views COMPARISON: 05/18/2021 FINDINGS: LINES/DEVICES: None. LUNGS: No consolidation. Mildly elevated right hemidiaphragm is unchanged from prior. No pneumothorax. MEDIASTINUM: Unremarkable. CARDIAC SILHOUETTE: Not enlarged. Sternotomy wires. BONES AND SOFT TISSUES: No acute abnormalities. Sclerotic focus likely vertebroplasty lower thoracic, is new compared to prior chest x-ray. RAD/Chest PA and Lateral IMPRESSION: No evidence of active intrathoracic disease. Electronically Signed: Nicolasa Pereyra MD at 3:00 EDT ,
[2023-12-10 16:56] LABS: Absolute Lymphocyte Count 1.52 X10^3/uL (0.83-4.51); Absolute Neutrophil Count 6.3 X10^3/uL (2.0-7.7); Basophil# 0.04 X10^3/uL; Basophil% 0.5 % (0-1); Eosinophil# 0.17 X10^3/uL; Eosinophils% 1.9 % (0-5); Hematocrit 37.5 % (37-47); Hemoglobin 11.7 g/dL (12.0-15.0); Lymphocyte # 1.52 X10^3/ul (0.83-4.51); Lymphocyte % 17.3 % (19-41); Mean Corp Hgb Conc 31.2 g/dL (32-36); Mean Corpuscular Hgb 26.7 pg (27.0-32.0); Mean Corpuscular Volume 85.6 fL (81-99); Mean Platelet Vol. 9.7 fl (6.2-12.0); Monocyte# 0.76 X10^3/uL; Monocyte% 8.6 % (0-10); NRBC Flagged by Analyzer 0 % (0-5); Neutrophil # 6.28 X10^3/uL (2.7-7.7); Neutrophil % 71.4 % (47-70); Platelet Count 205 K/mm3 (150-450); RBC Distribution Width CV 16.1 % (11.6-14.6); RBC Distribution Width SD 50.4 fl (35.1-43.9); Red Blood Count 4.38 M/mm3 (4.2-5.4); White Blood Count 8.8 K/mm3 (4.4-11.0)
[2023-12-10 17:10] LABS: BNP,B-Type NATRIURETIC PEPTIDE 119.1 pg/mL (0-100)
[2023-12-10 17:13] LABS: Anion Gap 10 (5-15); BUN 41 mg/dL (7-18); Calcium,Total 9.9 mg/dL (8.5-10.1); Chloride 101 mmol/L (98-107); EST Glomerular Filtration Rate 56 mL/min (>60); Est Glom Filt Rate - Afr Amer 68 mL/min (>60); Glucose 242 mg/dL (74-106); Sodium Level 137 mmol/L (136-145)
== END | disposition home or self-care (01) ==
LOC: RAD 15:26 → LAB 15:42
PROVIDERS: PCP Family Medicine; Referring Provider Nurse Practitioner Gerontology; Visit Provider Nurse Practitioner Gerontology
DX: R05.9 Cough, unspecified (principal); R06.02 Shortness of breath
CPT/HCPCS: 36415; 71046; 80048; 83880; 85025

== ENCOUNTER → 2023-12-13 | Outpatient (CLI) | payer MEDICARE, SELFPAY ==
--- NOTE | 2023-12-13 12:40 | RAD_ITS ---
STUDY: X-RAY - BILATERAL RIBS WITH CHEST REASON FOR EXAM: Female, 83 years old. Rib pain, fall. TECHNIQUE - RIBS: 3 views of the ribs. TECHNIQUE - CHEST: Single PA view of the chest. COMPARISON: None. FINDINGS - RIBS : There are suspected fractures of the right second through fourth ribs. Normal visualized left ribs without a demonstrated fracture. FINDINGS - CHEST: There are sternal cerclage wires in place. There is elevation of the right hemidiaphragm. The lungs are otherwise clear. There is no demonstrated pleural abnormality. Normal size heart. Normal mediastinum and karina. Normal visualized pulmonary arteries. There is atherosclerotic calcification of the aortic arch. There is a dextroscoliosis of the thoracic spine. There is a comminuted fracture of the right mid clavicle. There is degenerative arthrosis of the left glenohumeral joint. There is no demonstrated abnormality of the visualized soft tissue structures of the upper abdomen. RAD/Ribs Bilat 3V No CXR IMPRESSION: RIBS: Suspected fractures of the right second through fourth ribs. CHEST: Comminuted fracture of the right mid clavicle. Elevation of the right hemidiaphragm. 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 Atherosclerotic calcification of the aortic arch. Electronically Signed: Spencer Maynard MD at 14:38 EDT ,
== END | disposition home or self-care (01) ==
LOC: MTRAD 12:39
PROVIDERS: PCP Family Medicine; Referring Provider Family Medicine; Visit Provider Family Medicine
DX: R07.81 Pleurodynia (principal)
CPT/HCPCS: 71110

== ENCOUNTER → 2024-01-01 | Outpatient (CLI) | payer MEDICARE, SELFPAY ==
[2024-01-01 15:15] LABS: Bacteria 0 SEEN /hpf (None Seen); Mucous, Urine 0 SEEN /hpf (<or=2+); Red Blood Cells-Urine 0 SEEN /hpf (0-5); Squamous Epithelial Cells - UA 0 SEEN /hpf (5-10)
[2024-01-01 17:40] LABS: Absolute Lymphocyte Count 1.28 X10^3/uL (0.83-4.51); Absolute Neutrophil Count 5.4 X10^3/uL (2.0-7.7); Basophil# 0.02 X10^3/uL; Basophil% 0.3 % (0-1); Eosinophil# 0.24 X10^3/uL; Eosinophils% 3.1 % (0-5); Hematocrit 37.9 % (37-47); Hemoglobin 11.9 g/dL (12.0-15.0); Lymphocyte # 1.28 X10^3/ul (0.83-4.51); Lymphocyte % 16.6 % (19-41); Mean Corp Hgb Conc 31.4 g/dL (32-36); Mean Corpuscular Hgb 27.4 pg (27.0-32.0); Mean Corpuscular Volume 87.3 fL (81-99); Mean Platelet Vol. 9.7 fl (6.2-12.0); Monocyte# 0.76 X10^3/uL; Monocyte% 9.9 % (0-10); NRBC Flagged by Analyzer 0 % (0-5); Neutrophil # 5.38 X10^3/uL (2.7-7.7); Platelet Count 220 K/mm3 (150-450); RBC Distribution Width CV 14.7 % (11.6-14.6); RBC Distribution Width SD 47.5 fl (35.1-43.9); Red Blood Count 4.34 M/mm3 (4.2-5.4); White Blood Count 7.7 K/mm3 (4.4-11.0)
[2024-01-01 18:16] LABS: ALB/GLOB Ratio 0.8 RATIO (0.9-2.4); AST(SGOT) 36 U/L (15-37); Alanine Aminotransfer ALT/SGPT 25 U/L (13-56); Albumin, Serum 3.3 g/dL (3.2-5.0); Alkaline Phosphatase 137 U/L (45-117); Anion Gap 7 (5-15); BUN 38 mg/dL (7-18); BUN/Creat Ratio 36.2 RATIO (10-20); Calcium,Total 9.6 mg/dL (8.5-10.1); Chloride 101 mmol/L (98-107); Cholesterol 135 mg/dL (200); Creatinine, Serum 1.05 mg/dL (0.55-1.02); EST Glomerular Filtration Rate 53 mL/min (>60); Est Glom Filt Rate - Afr Amer 64 mL/min (>60); Ferritin 42 ng/mL (8-252); Globulin 4.1 g/dL (2.2-4.2); Glucose 269 mg/dL (74-106); High Density Lipoprotein 48 mg/dL; Iron 47 ug/dL (50-170); Iron Binding Capacity,Total 421 ug/dL (250-450); PERCENT IRON SATURATION 11.2 % (15.0-55.0); Protein, Total 7.4 g/dL (6.4-8.2); Sodium Level 137 mmol/L (136-145); Triglycerides 196 mg/dL; Very Low Density Lipoprotein 39 mg/dL (5-40)
[2024-01-01 18:19] LABS: Color, Urine Yellow (Yellow); Glucose, Dipstick Normal (Normal); Ketone-Dipstick Negative (Negative); Leukocyte Esterase-Dipstick 100 /ul (Negative); Nitrite-Dipstick Negative (Negative); Occult Blood-Urine 10 /ul (Negative); Protein-Dipstick 30 mg/dl (Negative); Specific Gravity, Urine 1.015 (1.002-1.030); Urine Bilirubin Dipstick Negative (Negative); Urine Clarity Clear (Clear); Urine Urobilinogen Normal (Normal)
[2024-01-01 18:28] LABS: Hyaline Cast 0-5 SEEN /lpf (0-5); Microalbumin:Creatinine Ratio 309.2 mg/g CRE (<30 mg/g CRE); Protein, Urine (Random) 35.9 mg/dL (<11.9); Protein:Creat Ratio 472 mg/g CRE (0-200); White Blood Cells 5-10 SEEN /hpf (0-5)
[2024-01-01 18:51] LABS: Hemoglobin A1c 7.8 % (3.8-5.6)
[2024-01-07 19:07] LABS: Vitamin B12 885 pg/mL (232-1245)
[2024-01-08 17:07] LABS: PTHIN 27 pg/mL (15-65)
== END | disposition home or self-care (01) ==
PROVIDERS: PCP Family Medicine; Referring Provider Family Medicine; Visit Provider Family Medicine
DX: E11.22 Type 2 diabetes mellitus with diabetic chronic kidney disease (principal); N18.30 Chronic kidney disease, stage 3 unspecified; E53.8 Deficiency of other specified B group vitamins; E55.9 Vitamin D deficiency, unspecified; D64.9 Anemia, unspecified
CPT/HCPCS: 36415; 80053; 80061; 81001; 82043; 82306; 82570; 82607; 82728; 82746; 83036; 83540; 83550; 83970; 84156; 85025

== ENCOUNTER → 2024-04-14 | Outpatient (CLI) | payer MEDICARE, SELFPAY | END | disposition home or self-care (01) | LOC: SL 13:19 | PROVIDERS: PCP Family Medicine; Visit Provider Nurse Practitioner Acute Care | DX: G47.33 Obstructive sleep apnea (adult) (pediatric) (principal) | CPT/HCPCS: 98960; G0463 ==

== ENCOUNTER → 2024-05-05 | Outpatient (CLI) | payer MEDICARE, SELFPAY ==
[2024-05-05 15:02] LABS: Mucous, Urine 0 SEEN /hpf (<or=2+)
[2024-05-05 18:01] LABS: Color, Urine Yellow (Yellow); Glucose, Dipstick Normal (Normal); Ketone-Dipstick Negative (Negative); Leukocyte Esterase-Dipstick 25 /ul (Negative); Nitrite-Dipstick Negative (Negative); Occult Blood-Urine 10 /ul (Negative); Protein-Dipstick 100 mg/dl (Negative); Specific Gravity, Urine 1.015 (1.002-1.030); Urine Bilirubin Dipstick Negative (Negative); Urine Clarity Clear (Clear); Urine Urobilinogen Normal (Normal)
[2024-05-05 18:16] LABS: Absolute Lymphocyte Count 1.59 X10^3/uL (0.83-4.51); Absolute Neutrophil Count 5.5 X10^3/uL (2.0-7.7); Basophil# 0.02 X10^3/uL; Basophil% 0.3 % (0-1); Eosinophil# 0.15 X10^3/uL; Eosinophils% 1.9 % (0-5); Hematocrit 42.5 % (37-47); Hemoglobin 13.2 g/dL (12.0-15.0); Lymphocyte # 1.59 X10^3/ul (0.83-4.51); Lymphocyte % 20.4 % (19-41); Mean Corp Hgb Conc 31.1 g/dL (32-36); Mean Corpuscular Hgb 27.9 pg (27.0-32.0); Mean Corpuscular Volume 89.9 fL (81-99); Mean Platelet Vol. 10.1 fl (6.2-12.0); Monocyte# 0.56 X10^3/uL; Monocyte% 7.2 % (0-10); NRBC Flagged by Analyzer 0 % (0-5); Neutrophil # 5.47 X10^3/uL (2.7-7.7); Neutrophil % 70.1 % (47-70); Platelet Count 221 K/mm3 (150-450); RBC Distribution Width CV 13.8 % (11.6-14.6); RBC Distribution Width SD 45.1 fl (35.1-43.9); Red Blood Count 4.73 M/mm3 (4.2-5.4); White Blood Count 7.8 K/mm3 (4.4-11.0)
[2024-05-05 18:19] LABS: PTHIN 14.8 pg/mL (18.4-80.1)
[2024-05-05 18:29] LABS: Hemoglobin A1c 6.7 % (3.8-5.6)
[2024-05-05 18:34] LABS: ALB/GLOB Ratio 0.9 RATIO (0.9-2.4); AST(SGOT) 29 U/L (15-37); Alanine Aminotransfer ALT/SGPT 23 U/L (13-56); Albumin, Serum 3.7 g/dL (3.2-5.0); Alkaline Phosphatase 47 U/L (45-117); Anion Gap 6 (5-15); BUN 23 mg/dL (7-18); BUN/Creat Ratio 25.2 RATIO (10-20); Calcium,Total 10.3 mg/dL (8.5-10.1); Chloride 100 mmol/L (98-107); Cholesterol 131 mg/dL (200); Creatinine, Serum 0.91 mg/dL (0.55-1.02); EST Glomerular Filtration Rate 63 mL/min (>60); Est Glom Filt Rate - Afr Amer 76 mL/min (>60); Glucose 86 mg/dL (74-106); High Density Lipoprotein 55 mg/dL; Potassium 4.1 mmol/L (3.5-5.1); Protein, Total 7.7 g/dL (6.4-8.2); Sodium Level 136 mmol/L (136-145); Triglycerides 210 mg/dL; Very Low Density Lipoprotein 42 mg/dL (5-40)
[2024-05-05 18:42] LABS: Protein, Urine (Random) 61.5 mg/dL (<11.9); Protein:Creat Ratio 488 mg/g CRE (0-200)
[2024-05-05 18:54] LABS: Hyaline Cast 0-5 SEEN /lpf (0-5); Red Blood Cells-Urine 0-5 SEEN /hpf (0-5); Squamous Epithelial Cells - UA 0-5 SEEN /hpf (5-10); White Blood Cells 5-10 SEEN /hpf (0-5)
[2024-05-05 18:55] LABS: Bacteria 1+ /hpf (None Seen); Coarse Granular Cast 0-5 SEEN /lpf (0-5 /lpf)
[2024-05-06 14:33] LABS: Vitamin B12 579 pg/mL (211-911)
[2024-05-07 14:42] LABS: Vitamin D,25 Hydroxy 98.2 ng/mL
== END | disposition home or self-care (01) ==
LOC: MFPLAB 14:47
PROVIDERS: PCP Family Medicine; Referring Provider Family Medicine; Visit Provider Family Medicine
DX: E55.9 Vitamin D deficiency, unspecified (principal); E11.69 Type 2 diabetes mellitus with other specified complication; E11.59 Type 2 diabetes mellitus with other circulatory complications; E11.22 Type 2 diabetes mellitus with diabetic chronic kidney disease; N18.30 Chronic kidney disease, stage 3 unspecified; E53.8 Deficiency of other specified B group vitamins
CPT/HCPCS: 36415; 80053; 80061; 81001; 82043; 82306; 82570; 82607; 83036; 83970; 84156; 85025

== ENCOUNTER → 2024-06-01 | Outpatient (CLI) | payer MEDICARE, SELFPAY ==
--- NOTE | 2024-06-01 11:44 | NM_ITS ---
PROCEDURE: GASTRIC EMPTYING STUDY REASON FOR EXAM: EARLY SATIETY TECHNIQUE: The patient ingested a mixture of 1.1 mCi of technetium labeled sulfur colloid with oatmeal. A gastric emptying study was obtained. RADIOPHARMACEUTICAL: 1.1 mCi of technetium labeled sulfur colloid. COMPARISON: None. FINDINGS: The study was carried out for 60 minutes. At 60 minutes, 69% of the radiopharmaceutical exited the stomach. This is a normal study. ND/Gastric Emptying Study IMPRESSION: Normal gastric emptying scan. Reading Location: [place] [id number]
== END | disposition home or self-care (01) ==
LOC: NM 11:43
PROVIDERS: PCP Family Medicine; Referring Provider Family Medicine; Visit Provider Family Medicine
DX: R68.81 Early satiety (principal)
CPT/HCPCS: 78264; A9541

== ENCOUNTER → 2024-07-24 | Outpatient (CLI) | payer MEDICARE, SELFPAY ==
--- NOTE | 2024-07-24 11:53 | ECHOCS_ITS ---
Reason For Study Reason For Study: SOB Procedure This was a 2D Doppler, Color Flow transthoracic echocardiogram. Patient scanned supine due to left shoulder impingement. Exam performed in department. Left Ventricle Normal LV size. Mild concentric left ventricular hypertrophy. The LV systolic function is normal. EF is 65 %. Stage 1 diastolic dysfunction. Right Ventricle Normal right ventricle. Atria The left and right atria are normal. Mitral Valve Moderate mitral annular calcification. Trivial mitral valve insufficiency. Tricuspid Valve Mild tricuspid valve insufficiency. Normal pulmonary artery pressure. Aortic Valve Trisinus/trileaflet aortic valve. Pulmonic Valve The pulmonic valve is not well visualized. Great Vessels Normal sized aortic root. Pericardium/Pleural No pericardial effusion. MMode/2D Measurements & Calculations LVIDd: 4.1 cm IVSd: 1.3 cm Ao root diam: 3.1 cm LVIDs: 2.4 cm LVPWd: 1.3 cm RVDd: 3.1 cm FS: 41.7 % LAV(MOD-bp): 27.5 ml LA A4 area: 12.0 cm2 LA dimension(2D): 4.0 cm LAV(MOD-bp) Indexed: 18.5 ml/m2 LAV(MOD-sp2): 26.2 ml LAV(MOD-sp4): 25.7 ml TAPSE: 1.4 cm RA A4 area: 9.4 cm2 Time Measurements MV dec time: 0.29 sec Doppler Measurements & Calculations MV E max giancarlo: 49.1 cm/sec Lat Peak E' Giancarlo: 7.3 cm/sec Med Peak E' Giancarlo: 6.1 cm/sec MV A max giancarlo: 88.3 cm/sec E/E' lat: 6.8 E/E' med: 8.1 MV E/A: 0.56 MV dec slope: 171.3 cm/sec2 Ao V2 max: 112.0 cm/sec LV V1 max: 86.8 cm/sec Ao max P.0 mmHg LV V1 max P.0 mmHg Ao V2 mean: 83.6 cm/sec LV V1 mean P.8 mmHg Ao mean P.1 mmHg LV V1 mean: 64.3 cm/sec Ao V2 VTI: 24.6 cm LV V1 VTI: 16.3 cm AV (velocity ratio): 0.66 PA V2 max: 114.6 cm/sec TR max giancarlo: 237.8 cm/sec TR max P.6 mmHg ECHO/Echo Complete W/ Contrast Interpretation Summary Mild concentric left ventricular hypertrophy. The LV systolic function is normal. EF is 65 %. Stage 1 diastolic dysfunction. Moderate mitral annular calcification. Mild tricuspid valve insufficiency. Ordering Physician: Michele Lang Referring Physician: Nargis Prajapati Performed By: Paris Christie RDCS
== END | disposition home or self-care (01) ==
LOC: CVS 11:52
PROVIDERS: PCP Family Medicine; Referring Provider Nurse Practitioner Acute Care; Visit Provider Nurse Practitioner Acute Care
DX: R06.02 Shortness of breath (principal)
CPT/HCPCS: 93306; C8929

== ENCOUNTER 2024-07-31 23:34 | Emergency (ER) | payer MEDICARE, SELFPAY ==
[2024-07-31 23:35] VITALS: BP 185/69; PULSE 68; RESP 16; TEMP 36.1; O2SAT 93; BMI 30.1
[2024-07-31 23:40] VITALS: O2SAT 94
--- NOTE | 2024-08-01 00:18 | CT_ITS ---
PROCEDURE: BRAIN/HEAD WITHOUT CONTRAST 08/01/2024 REASON FOR EXAM: HEAD INJURY TECHNIQUE: Head CT without intravenous contrast. Coronal and Sagittal reconstruction series were provided. One or more dose reduction techniques were used (e.g., Automated exposure control, adjustment of the mA and/or kV according to patient size, use of iterative reconstruction technique. RADIATION DOSE SUMMARY: CTDlvol: 44.99 mGy DLP: 812.98 mGycm COMPARISON: 09/21/2021 FINDINGS: Mild off axis imaging. Small amount of acute appearing subdural hemorrhage anterior inferior interhemispheric frontal measures up to 7 mm in thickness axial 21 and coronal 23. There appears to be some trace adjacent sulcal inferior frontal possible subarachnoid hemorrhage. No midline shift. No calvarial fracture. Please refer to facial CT report for nasal and facial soft tissue swelling, injury. The ventricles are unchanged in size and remain midline. Chronic and involutional changes. CT/Brain/Head without Contrast IMPRESSION: Small amount of acute appearing subdural hemorrhage anterior inferior interhemi spheric frontal measures up to 7 mm in thickness axial 21 and coronal 23. There appears to be some trace adjacent sulcal inferior frontal possible subara chnoid hemorrhage. No midline shift. Findings discussed by myself by phone and informed that Dr. Verde is aware of h ead bleed at 1:05 a.m. 08/01/2024 Reading Location: [id number]
--- NOTE | 2024-08-01 00:18 | CT_ITS ---
PROCEDURE: SPINE CERVICAL WITHOUT CONTRAS 08/01/2024 REASON FOR EXAM: HEAD INJURY TECHNIQUE: Cervical spine CT without contrast. Coronal and Sagittal reconstruction series were provided. One or more dose reduction techniques were used (e.g., Automated exposure control, adjustment of the mA and/or kV according to patient size, use of iterative reconstruction technique RADIATION DOSE SUMMARY: CTDlvol: 13.59 mGy DLP: 272.41 mGycm FINDINGS: The head is tilted to the left. No fracture or malalignment. No prevertebral soft tissue swelling. Multilevel spondylosis/discogenic change greatest at C5-6 and C6-7. Bilateral C3-4 facet degenerative changes. Bilateral carotid calcific plaque noted. Visualized apices appear clear. CT/Spine Cervical without Contras IMPRESSION: The head is tilted to the left. No fracture or malalignment. Multilevel spondylosis/discogenic change greatest at C5-6 and C6-7. Bilateral C 3-4 facet degenerative changes. Reading Location: [id number]
--- NOTE | 2024-08-01 00:18 | CT_ITS ---
PROCEDURE: SINUS/FACIAL BONE REASON FOR EXAM: FACIAL INJURY TECHNIQUE: CT of the paranasal sinuses without contrast. Coronal and Sagittal reconstruction series were provided. One or more dose reduction techniques were used (e.g., Automated exposure control, adjustment of the mA and/or kV according to patient size, use of iterative reconstruction technique). COMPARISON: None. FINDINGS: Mildly displaced left nasal fracture. Left nasal lobular high density soft tissue collection measuring 2.6 x 1.1 cm consistent with soft tissue hematoma with left facial, periorbital and preseptal soft tissue swelling. Globes appear intact without retro bulbar stranding. The paranasal sinuses and mastoids are clear. TMJs appear normally located. Mild leftward deviation of the nasal septum with left-sided nasal spur. Edentulous. Please refer to head CT report for description of intracranial hemorrhage. CT/Sinus/Facial Bone IMPRESSION: Mildly displaced left nasal fracture. Left nasal lobular high density soft tiss ue collection measuring 2.6 x 1.1 cm consistent with soft tissue hematoma with left facial, periorbital and preseptal soft tiss ue swelling. Globes appear intact without retro bulbar stranding. Reading Location: [id number]
[2024-08-01 00:30] VITALS: BP 186/73; PULSE 69; RESP 18; O2SAT 93
--- NOTE | 2024-08-01 00:40 | RAD_ITS ---
PROCEDURE: PELVIS 1 OR 2 VIEWS 08/01/2024 REASON FOR EXAM: FALL TECHNIQUE: 1 view(s) of the pelvis. COMPARISON: None available FINDINGS: Patient is rotated to the left. No fracture or dislocation identified. Right hip osteoarthrosis with medial joint space narrowing. Partially imaged left femoral gamma nail. Bilateral SI joints and pubic symphysis appear within limits. RAD/Pelvis 1 or 2 Views IMPRESSION: Patient is rotated to the left. No fracture or dislocation identified. Reading Location: [id number]
[2024-08-01 00:59] LABS: Absolute Lymphocyte Count 1.09 X10^3/uL (0.83-4.51); Absolute Neutrophil Count 6.8 X10^3/uL (2.0-7.7); Basophil# 0.04 X10^3/uL; Basophil% 0.4 % (0-1); Eosinophil# 0.23 X10^3/uL; Eosinophils% 2.5 % (0-5); Hematocrit 33.8 % (37-47); Hemoglobin 11.2 g/dL (12.0-15.0); Lymphocyte # 1.09 X10^3/ul (0.83-4.51); Mean Corp Hgb Conc 33.1 g/dL (32-36); Mean Corpuscular Hgb 29.6 pg (27.0-32.0); Mean Corpuscular Volume 89.2 fL (81-99); Mean Platelet Vol. 9.2 fl (6.2-12.0); Monocyte# 0.86 X10^3/uL; Monocyte% 9.5 % (0-10); NRBC Flagged by Analyzer 0 % (0-5); Neutrophil # 6.81 X10^3/uL (2.7-7.7); Platelet Count 157 K/mm3 (150-450); RBC Distribution Width SD 42.5 fl (35.1-43.9); Red Blood Count 3.79 M/mm3 (4.2-5.4); White Blood Count 9.1 K/mm3 (4.4-11.0)
[2024-08-01 01:00] VITALS: BP 178/71; PULSE 66; RESP 18; O2SAT 93
[2024-08-01 01:15] LABS: Anion Gap 12 (5-15); BUN 30 mg/dL (4-19); Calcium,Total 9.5 mg/dL (7.6-11.0); Carbon Dioxide 29.6 mmol/L (21.0-32.0); Chloride 98 mmol/L (98-108); Creatinine, Serum 0.87 mg/dL (0.70-1.20); EST Glomerular Filtration Rate 66 (>60); Estimated Creatinine Clearance 40.64 ml/min (50-250); Glucose 176 mg/dL (70-99); Potassium 3.7 mmol/L (3.3-5.1); Sodium Level 140 mmol/L (133-145)
[2024-08-01 01:19] LABS: International Normalized Ratio 1.1; Prothrombin Time (Protime)PT. 14.3 SECONDS (11.7-14.9)
[2024-08-01 01:20] LABS: Partial Thromboplast Time 28.8 Seconds (24.1-36.2)
--- NOTE | 2024-08-01 01:52 | EX.ED.DYSGE1 ---
HPI History of Present Illness Chief Complaint: Fall Informant: patient and family Narrative Narrative: Patient is an 84-year-old female who lives with family and has past medical history of coronary artery disease hypertension hyperlipidemia diabetes and chronic kidney disease. Patient and family report that she has been falling more frequently over the last few months. Patient and family state that she fell on Mother's Day striking the right side of her head. She then fell on Saturday injuring the back of her head. After these events she was not seen in the ER. However today she states she got up to use the bathroom around 930/10 PM. She states that she believes she tripped while using her walker and fell face first. She states that it did cause loss of consciousness. Son states that he heard the fall and when he went to her she was awake but groggy. He states after a few minutes she returned to her baseline mental status. However she had bruising to her face and bleeding from her nose and also sustained a upper lip laceration. Therefore at this event being more traumatic than the previous 2 she was brought in for evaluation. Patient states that she has mild pain to her face but otherwise has no complaints. Patient states she takes baby aspirin but no true blood thinner such as Eliquis Coumadin or Xarelto. [facility] Medical History Impingement of left shoulder Intertriginous candidiasis Incontinence Physical debility CPAP (continuous positive airway pressure) dependence Sleep apnea Fracture of right wrist with routine healing Obesity Right bundle branch block (RBBB) Pancreatitis Diabetes mellitus GERD (gastroesophageal reflux disease) HLD (hyperlipidemia) Essential (primary) hypertension Atherosclerotic heart disease of viejas coronary artery without angina pectoris Home Medications ?Medication ?Instructions ?Recorded ?Last Taken ?Type aspirin 81 mg tablet,delayed 81 mg PO DAILY heart 07/24/18 05/18/21 History release (Adult Aspirin Regimen) furosemide 40 mg tablet 40 mg PO DAILY edema 05/18/21 05/18/21 History potassium chloride 10 mEq 10 meq PO DAILY supplement 05/22/21 Unknown History tablet,extended release rosuvastatin 10 mg tablet (Crestor) 10 mg PO DAILY cholesterol 05/22/21 Unknown History acetaminophen 500 mg capsule 500 mg PO Q6H PRN Pain 04/26/22 Unknown History nystatin 100,000 unit/gram topical 1 applic topical TID PRN 04/26/22 Unknown History ointment calcium carbonate 600 mg PO DAILY 06/10/23 Unknown History buspirone 10 mg tablet 10 mg PO TID 06/16/24 Unknown History gabapentin 100 mg capsule 100 mg PO QDAY 06/16/24 Unknown History metformin 500 mg tablet 1,000 mg PO QDAY diabetes 06/16/24 Unknown History metronidazole 0.75 % lotion 1 applic topical BID 06/16/24 Unknown History triamcinolone acetonide 0.5 % topical BID 06/16/24 Unknown History topical ointment clonazepam 0.5 mg tablet 0.5 mg PO BID PRN anxiety 06/30/24 Unknown History cyclosporine 0.05 % eye drops in a 1 drp ophthalmic (eye) BID 08/01/24 Unknown History dropperette sertraline 50 mg tablet 50 mg PO DAILY 08/01/24 Unknown History Allergy/AdvReac Type Severity Reaction Status Date / Time adhesive tape AdvReac Unknown Verified 07/31/24 23:35 morphine AdvReac Vomiting Verified 07/31/24 23:35 Qjfqbdu-YXO-HyH Reductase AdvReac Pain in Verified 07/31/24 23:35 Inhibitor (Zqkbtir-Cjn-Bjl joints Reductase Inhibitor) Family History (Reviewed 06/30/24 @ 15:15 by Nargis Prajapati BRAKE OPERATOR HEAVY DUTY, BRAKE OPERATOR HE[employer]Y-C) Mother Hypertension Other CAD (coronary artery disease) Surgical History Fracture of left hip requiring operative repair Status post cardiac surgery Hx of hysterectomy Hx of cholecystectomy Hx of appendectomy History of coronary artery stent placement (11/17/14) 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) Social History household members: spouse Smoking Status: Never smoker alcohol intake: never substance use type: does not use caffeine: Yes Type: carbonated beverages what type of physical activity do you participate in: none seatbelt use: always do you feel safe at home: Yes ROS ROS ED Constitutional Constitutional ED: Denies chills or fever(s) Eyes Eyes: Denies blurry vision or change in vision ENT ENT ED: Reports other Details: Positive nosebleed ; Denies sore throat Cardiovascular Cardiovascular: Reports other Details: Positive syncope ; Denies chest pain or palpitations Respiratory/Chest Respiratory/Chest: Denies cough or dyspnea Gastrointestinal Gastrointestinal: Denies abdominal pain, diarrhea, nausea or vomiting Genitourinary Genitourinary ED: Denies dysuria Musculoskeletal Musculoskeletal: Denies back pain or neck pain Integumentary Reports other Details: Positive facial bruising and upper lip laceration Neurologic Neurologic: Denies headache(s), paresthesias or weakness Hematologic/Lymphatic Hematologic/Lymphatic: Denies easy bleeding or easy bruising EXAM Physical Exam Const Vital Signs: 07/31/24 23:35 07/31/24 23:40 08/01/24 00:30 Temperature 96.9 F L Temperature Source Axillary Pulse Rate 68 69 Respiratory Rate 16 18 Respiratory Effort Normal Respiratory Depth Normal Respiratory Pattern Normal Blood Pressure 185/69 H 186/73 H Blood Pressure Mean 107 110 Pulse Ox 93 94 93 Oxygen Delivery Method Room Air Room Air Room Air 08/01/24 01:00 Temperature Temperature Source Pulse Rate 66 Respiratory Rate 18 Respiratory Effort Respiratory Depth Respiratory Pattern Blood Pressure 178/71 H Blood Pressure Mean 106 Pulse Ox 93 Oxygen Delivery Method Room Air Positive well nourished, well developed and obese General Appearance ED: well developed Nutritional Appearance: obese HEENT HEENT Narrative: Patient has multiple areas of soft tissue swelling and ecchymosis to the face consistent with her recurrent falls. She has a hematoma and ecchymosis along the right frontal and temporal portion of the scalp. There is ecchymosis and soft tissue swelling across the nasal bridge as well as periorbital ecchymosis bilaterally. Patient has a small hematoma along the right occipital portion of the scalp as well. There is mild ooze of blood from bilateral nostrils. No obvious septal hematoma. No signs of jaw fracture Patient does have a full-thickness layer mid upper lip laceration that crosses the vermilion border and is 2 cm in length. Eyes PERRL and EOMs intact bilaterally Eyes Narrative: No hyphema noted Neck supple Neck Narrative: No bony deformity or step-off of the cervical spine no midline tenderness to palpation Chest Wall Chest Narrative: There is mild right anterior lateral chest wall pain with palpation rib regions 8-10. Patient does report previous rib fractures on that side. No bony deformity or subcutaneous emphysema Resp normal respiratory effort and clear to auscultation bilaterally Resp Narrative: Breath sounds are diminished throughout but overall clear to auscultation without signs of distress Cardio regular rate and regular rhythm GI normal to inspection, nondistended, normoactive bowel sounds, non-tender, non-distended and no masses GI Narrative: No voluntary guarding or rigidity or pulsatile mass Auscultation: normoactive bowel sounds Palpation: soft Back/Spine Back/Spine Narrative: No bony deformity or step-off of the thoracic or lumbar spine no midline tenderness to palpation Extremity Extremity Narrative: Pelvis is stable there is no shortening or external rotation of either lower extremity Patient does have chronic edema to bilateral lower extremities slightly greater on the left Neuro oriented x3, CN's II-XII intact bilaterally and no sensory deficits noted Sensorium / Orientation: alert Motor Exam: strength 5/5 throughout Psych mental status grossly normal Skin Skin Narrative: Multiple areas of ecchymosis and hematoma to the head as documented above There is the mid upper lip laceration as documented above as well. MDM MDM MDM Narrative Medical decision making narrative: Patient reported multiple falls over the past week each with bouts of head injury. There is concern for underlying skull fracture versus subarachnoid or subdural hemorrhage. Patient may also have nasal bone fracture or facial fracture. Based on the recurrent traumas there is concern for cervical compression fracture and potential pelvic injury. Secondary to this CTs of the head neck and face were obtained. With her report of rib pain there is also concern for rib fracture versus pulmonary contusion versus pneumothorax so a noncontrast CT of the chest was ordered. The head CT revealed a small 7 mm bleed. As she has had multiple falls recently but no previous evaluation it is unknown if this is acute from today's fall or from previous. I have to assume that the blood is acute from the fall just a few hours ago. With concern that the bleeding could worsen and lead to neurologic compromise she will need transfer to a trauma center where she can evaluated by trauma surgeon as well as neurosurgeon. Secondary to this the case was discussed with Shira Castillo. They agreed except to the ER and trauma transfer. The patient is only on a baby aspirin and as she is neurologically intact there is no need for DDAVP at this time. The plan was to suture her upper lip laceration in the ER but as she is going to a level 1 trauma center where plastic surgery is available I feel they would be more appropriate to close the wound. This plan of care was discussed with the patient and family and they are agreeable to it. At this time she is hemodynamically stable without neurologic finding. Therefore there is no need for an emergent transfer by [facility] but she is safe to go by ground transport. Plan of care was discussed with patient and family and they are able to it and therefore we transferred her to [facility] For continued neurosurgery and trauma care. History & Record Review Discussion w/independent historian: Patient and Family Lab Data Attestation: I reviewed the patient's lab results. Labs: Laboratory Results - last 24 hr 08/01/24 00:54 WBC 9.1 RBC 3.79 L Hgb 11.2 L Hct 33.8 L MCV 89.2 MCH 29.6 MCHC 33.1 RDW Std Deviation 42.5 RDW Coeff of Angel 13.0 Plt Count 157 MPV 9.2 Immature Gran % (Auto) 0.600 Neut % (Auto) 75.0 H Lymph % (Auto) 12.0 L [place] % (Auto) 9.5 Eos % (Auto) 2.5 Baso % (Auto) 0.4 Absolute Neuts (auto) 6.8 Absolute Lymphs (auto) 1.09 Nucleated RBC % 0 PT 14.3 INR 1.1 APTT 28.8 Sodium 140 Potassium 3.7 Chloride 98 Carbon Dioxide 29.6 Anion Gap 12 BUN 30 H Creatinine 0.87 Estim Creat Clear Calc 40.64 L Est GFR (MDRD) Non-Af 66 BUN/Creatinine Ratio 34.0 H Glucose 176 H Calcium 9.5 Radiography Diagnostic Testing: Clinical Impression(s) from Imaging Studies Brain CT 08/01/24 00:18 IMPRESSION: Small amount of acute appearing subdural hemorrhage anterior inferior interhemispheric frontal measures up to 7 mm in thickness axial 21 and coronal 23. There appears to be some trace adjacent sulcal inferior frontal possible subarachnoid hemorrhage. No midline shift. Findings discussed by myself by phone and informed that Dr. Verde is aware of head bleed at 1:05 a.m. 08/01/2024 Reading Location: [facility] Pelvis X-Ray 08/01/24 00:40 IMPRESSION: Patient is rotated to the left. No fracture or dislocation identified. Reading Location: [facility] Pelvis x-ray as interpreted by the emergency medicine physician reveals no acute fracture or dislocation Management Discussion w/another healthcare provider: Communications Equipment Supervisor and Radiologist Critical Care Time Critical Care Time: Yes Critical care time (excluding procedures): Discussing w/Patient &/or Family/Cold Roll Operator, Discussing w/Consultants, Arranging Admission or Transfer and - (Critical care time of 31 minutes) Discharge Plan Triage Chief Complaint: Fall ED Provider: Cedric Verde Dx/Rx/DC Orders Clinical Impression: Subdural hemorrhage, Diabetes mellitus, Essential (primary) hypertension, Hyperlipidemia, Chronic kidney disease, stage 3 unspecified, Recurrent falls, Complex laceration of face Prescriptions: No Action aspirin [Adult Aspirin Regimen] 81 mg tablet,delayed release (DR/EC) 81 mg PO DAILY nystatin 100,000 unit/gram ointment 1 applic topical TID PRN acetaminophen 500 mg capsule 500 mg PO Q6H PRN (Reason: Pain) calcium carbonate 600 mg calcium (1,500 mg) tablet 600 mg PO DAILY gabapentin 100 mg capsule 100 mg PO QDAY triamcinolone acetonide 0.5 % ointment topical BID buspirone 10 mg tablet 10 mg PO TID metronidazole 0.75 % lotion 1 applic topical BID clonazepam 0.5 mg tablet 0.5 mg PO BID PRN (Reason: anxiety) metformin 500 mg tablet 1,000 mg PO QDAY furosemide 40 mg tablet 40 mg PO DAILY potassium chloride 10 mEq tablet extended release 10 meq PO DAILY rosuvastatin [Crestor] 10 mg tablet 10 mg PO DAILY sertraline 50 mg tablet 50 mg PO DAILY cyclosporine 0.05 % dropperette 1 drp ophthalmic (eye) BID Primary Care Provider: Michele Lang Referrals: Michele Lang MD [Primary Care Provider] - Print Language: Ukrainian Disposition Disposition: Acute Care Hospital Discharge Location: [facility]
[2024-08-01 02:00] VITALS: BP 189/67; PULSE 70; RESP 20
[2024-08-01 03:00] VITALS: BP 180/73; PULSE 83; RESP 20; TEMP 36.6; O2SAT 93
--- NOTE | 2024-08-01 23:55 | CT_ITS ---
PROCEDURE: CHEST WITHOUT CONTRAST 08/01/2024 REASON FOR EXAM: RIB PAIN TECHNIQUE: Chest CT without contrast. Coronal and Sagittal reconstruction series were provided. One or more dose reduction techniques were used (e.g., Automated exposure control, adjustment of the mA and/or kV according to patient size, use of iterative reconstruction technique RADIATION DOSE SUMMARY: CTDlvol: 12.01 mGy DLP: 378.20 mGycm FINDINGS: The central airways appear patent. Areas of atelectasis right middle lobe, right lower lobe and lingula. The lungs otherwise appear clear. No pneumothorax. Thoracic aorta appears within limits on noncontrast imaging. Three-vessel heavy coronary calcification and/or stents. No pericardial or pleural effusion. Focal calcification at the head of the pancreas may represent pancreatic calcification with possible choledocholithiasis not excluded. A couple of branching calcifications at the moose hepatis may be vascular. A couple foci of air at the central liver possibly pneumobilia, correlate for history of sphincterotomy. Gallbladder is not seen. Severe left shoulder osteoarthrosis. Status post median sternotomy. Old right clavicle fracture deformity. Scoliosis. Status post vertebroplasty T11. CT/Chest without Contrast IMPRESSION: No evidence of acute intrathoracic traumatic injury on noncontrast imaging. Other findings as above. Reading Location: [id number]
== END 2024-08-01 03:08 | disposition short-term general hospital (02) ==
PROVIDERS: Emergency Provider Emergency Medicine; PCP Family Medicine; Visit Provider Emergency Medicine
DX: S06.5X9A Traumatic subdural hemorrhage with loss of consciousness of unspecified duration, initial encounter (principal); E11.22 Type 2 diabetes mellitus with diabetic chronic kidney disease; N18.30 Chronic kidney disease, stage 3 unspecified; S00.11XA Contusion of right eyelid and periocular area, initial encounter; S00.03XA Contusion of scalp, initial encounter; S00.12XA Contusion of left eyelid and periocular area, initial encounter; S01.511A Laceration without foreign body of lip, initial encounter; Z91.81 History of falling; R07.89 Other chest pain; W01.0XXA Fall on same level from slipping, tripping and stumbling without subsequent striking against object, initial encounter; I12.9 Hypertensive chronic kidney disease with stage 1 through stage 4 chronic kidney disease, or unspecified chronic kidney disease; E66.9 Obesity, unspecified; E78.5 Hyperlipidemia, unspecified; G47.30 Sleep apnea, unspecified; I25.10 Atherosclerotic heart disease of native coronary artery without angina pectoris; Z95.1 Presence of aortocoronary bypass graft; Z79.82 Long term (current) use of aspirin; Z79.84 Long term (current) use of oral hypoglycemic drugs; Z79.899 Other long term (current) drug therapy
CPT/HCPCS: 70450; 70486; 71250; 72125; 72170; 80048; 85025; 85610; 85730; 99284; A4216

== ENCOUNTER → 2024-09-16 | Outpatient (CLI) | payer MEDICARE, SELFPAY ==
[2024-09-16 15:45] LABS: Mucous, Urine 0 SEEN /hpf (<or=2+); Squamous Epithelial Cells - UA 0 SEEN /hpf (5-10)
[2024-09-16 17:42] LABS: Hematocrit 37.2 % (37-47); Hemoglobin 12.1 g/dL (12.0-15.0); Immature Granulocytes Count 0.030 X10^3/uL (0.0-0.0); Mean Corp Hgb Conc 32.5 g/dL (32-36); Mean Corpuscular Volume 89.0 fL (81-99); Mean Platelet Vol. 10.5 fl (6.2-12.0); NRBC Flagged by Analyzer 0 % (0-5); Platelet Count 225 K/mm3 (150-450); RBC Distribution Width CV 13.2 % (11.6-14.6); RBC Distribution Width SD 42.8 fl (35.1-43.9); Red Blood Count 4.18 M/mm3 (4.2-5.4); White Blood Count 9.4 K/mm3 (4.4-11.0)
[2024-09-16 18:55] LABS: Albumin, Serum 3.9 g/dL (3.4-4.8); BUN 16 mg/dL (4-19); BUN/Creat Ratio 18.9 RATIO (10-20); Glucose 115 mg/dL (70-99)
[2024-09-16 18:56] LABS: AST(SGOT) 32 U/L (<=31); Alanine Aminotransfer ALT/SGPT 16 U/L (<=34); Alkaline Phosphatase 111 U/L (35-104); Anion Gap 16 (5-15); Calcium,Total 9.6 mg/dL (7.6-11.0); Carbon Dioxide 26.1 mmol/L (21.0-32.0); Chloride 100 mmol/L (98-108); Cholesterol 137 mg/dL (<=200); Globulin 3.4 g/dL (2.2-4.2); Low Density Lipoprotein Calc. 43 mg/dL; Potassium 3.7 mmol/L (3.3-5.1); Triglycerides 234 mg/dL; Very Low Density Lipoprotein 47 mg/dL (5-40); Vitamin D,25 Hydroxy 67.0 ng/mL (30-100); cholesterol:hdl ratio screen 2.90
[2024-09-16 19:10] LABS: PTHIN 36 pg/mL (11-61)
[2024-09-16 20:20] LABS: Color, Urine Straw (Yellow); Glucose, Dipstick Normal (Normal); Ketone-Dipstick Negative (Negative); Leukocyte Esterase-Dipstick 100 /ul (Negative); Nitrite-Dipstick Negative (Negative); Occult Blood-Urine Negative /ul (Negative); Protein-Dipstick 30 mg/dl (Negative); Specific Gravity, Urine 1.015 (1.002-1.030); Urine Bilirubin Dipstick Negative (Negative)
[2024-09-16 20:32] LABS: Creatinine, Urine (random) 63.10 mg/dL (28.00-217.00); Microalbumin,Random Urine 133.0 mg/L (NO RANGE EST.); Protein, Urine (Random) 25.1 mg/dL (0.0-12.0); Protein:Creat Ratio 398 mg/g CRE (0-200)
[2024-09-16 22:10] LABS: Red Blood Cells-Urine 0-5 SEEN /hpf (0-5)
== END | disposition home or self-care (01) ==
LOC: MTLAB 15:25
PROVIDERS: PCP Family Medicine; Referring Provider Family Medicine; Visit Provider Family Medicine
DX: E11.22 Type 2 diabetes mellitus with diabetic chronic kidney disease (principal); E11.59 Type 2 diabetes mellitus with other circulatory complications; N18.30 Chronic kidney disease, stage 3 unspecified
CPT/HCPCS: 80053; 80061; 81001; 82043; 82306; 82570; 83036; 83970; 84100; 84156; 85025

== ENCOUNTER 2024-10-05 09:50 | Emergency (ER) | payer MEDICARE, SELFPAY ==
[2024-10-05] VITALS (9 sets, daily range): BP systolic 120–183; BP diastolic 63–93; PULSE 69–83; RESP 16–20; TEMP 36.3–37; O2SAT 89–92; BMI 26.6
--- NOTE | 2024-10-05 10:11 | EKG12_ITS ---
Test Reason : Blood Pressure : */* mmHG Vent. Rate : 74 BPM Atrial Rate : 74 BPM P-R Int : 118 ms QRS Dur : 84 ms QT Int : 402 ms P-R-T Axes : 7 12 61 degrees QTcB Int : 446 ms Normal sinus rhythm Nonspecific T wave abnormality Abnormal ECG Confirmed by Basilio Adler ([id number]), editor house organ SANJUANA KEANE ([id number]) on 10/06/2024 1:18:23 PM Referred By: [facility]G Confirmed By: Basilio Adler
--- NOTE | 2024-10-05 10:40 | RAD_ITS ---
EXAM: XR Chest, 2 Views CLINICAL INDICATION: PRODUCTIVE COUGH, RALES RIGHT GREATER THAN LEFT WI TECHNIQUE: Frontal and lateral views of the chest. COMPARISON: No relevant prior studies available. FINDINGS: LUNGS AND PLEURAL SPACES: Bibasilar atelectasis or pneumonia. No pneumothorax. HEART: Unremarkable. No cardiomegaly. MEDIASTINUM: Unremarkable. Normal mediastinal contour. BONES/JOINTS: Unremarkable. No acute fracture. UPPER ABDOMEN: Elevated right hemidiaphragm. RAD/Chest PA and Lateral IMPRESSION: Bibasilar atelectasis or pneumonia. Reading [facility]
[2024-10-05 10:52] LABS: Hematocrit 38.2 % (37-47); Hemoglobin 12.1 g/dL (12.0-15.0); Immature Granulocytes Count 0.030 X10^3/uL (0.0-0.0); Mean Corp Hgb Conc 31.7 g/dL (32-36); Mean Corpuscular Volume 89.5 fL (81-99); Mean Platelet Vol. 8.9 fl (6.2-12.0); NRBC Flagged by Analyzer 0 % (0-5); Platelet Count 204 K/mm3 (150-450); RBC Distribution Width CV 12.8 % (11.6-14.6); RBC Distribution Width SD 41.9 fl (35.1-43.9); Red Blood Count 4.27 M/mm3 (4.2-5.4); White Blood Count 9.7 K/mm3 (4.4-11.0)
--- NOTE | 2024-10-05 10:59 | EX.ED.DYSGE1 ---
HPI History of Present Illness Chief Complaint: General Illness Detail of Chief Complaint: Sent to ER because a pulse ox of 89% in doctor's office. Informant: patient and family Onset/Context/Timing Onset: Weeks (1 to 2 weeks) Context: Gradual Onset Timing: Continuous and Waxes and wanes Quality: Productive cough, dyspnea, dyspnea on exertion Location: Respiratory Current Severity: Mild Maximum Severity: Moderate Worsened by: Activity Relieved by: Better with rest Associated Symptoms Associated Symptoms: Productive cough Narrative Narrative: Patient is an 84-year-old woman. She has history of sleep apnea, stage III chronic kidney disease, diabetes mellitus, atherosclerotic heart disease, essential primary hypertension, hyperlipidemia. She had multivessel bypass surgery in 2001. She has stent placed 2014. She was setting from 's office because of pulse ox of 89% and productive cough. She has had no documented fever or subjective fever. She denies headache, visual, ocular auditory symptoms. She denies rhinorrhea, congestion, postnasal drainage sore throat. She denies chest pain, pressure, tightness or heaviness. There is no history of VTE. She denies leg pain or discoloration. She denies abdominal pain, nausea, vomiting or diarrhea. Prior similar symptoms: Yes Recent Illness/Hospitalization: No PFSH PFSH Medical History Impingement of left shoulder Intertriginous candidiasis Incontinence Physical debility CPAP (continuous positive airway pressure) dependence Sleep apnea Fracture of right wrist with routine healing Obesity Right bundle branch block (RBBB) Pancreatitis Diabetes mellitus GERD (gastroesophageal reflux disease) HLD (hyperlipidemia) Essential (primary) hypertension Atherosclerotic heart disease of [place] coronary artery without angina pectoris Home Medications ?Medication ?Instructions ?Recorded ?Last Taken ?Type aspirin 81 mg tablet,delayed 81 mg PO DAILY heart 07/24/18 10/04/24 History release (Adult Aspirin Regimen) furosemide 40 mg tablet 40 mg PO DAILY edema 05/18/21 10/04/24 History potassium chloride 10 mEq 10 meq PO DAILY supplement 05/22/21 10/04/24 History tablet,extended release rosuvastatin 10 mg tablet (Crestor) 10 mg PO DAILY cholesterol 05/22/21 10/04/24 History acetaminophen 500 mg capsule 500 mg PO Q6H PRN Pain 04/26/22 Unknown History nystatin 100,000 unit/gram topical 1 applic topical TID PRN 04/26/22 Unknown History ointment calcium carbonate 600 mg PO DAILY 06/10/23 10/04/24 History buspirone 10 mg tablet 10 mg PO BID 06/16/24 10/04/24 History metformin 500 mg tablet 1,000 mg PO QDAY diabetes 06/16/24 10/04/24 History clonazepam 0.5 mg tablet 0.5 mg PO BID PRN anxiety 06/30/24 10/04/24 History albuterol sulfate 90 mcg/actuation 2 puff inhalation Q4H PRN PRN 10/05/24 Unknown Rx aerosol inhaler (Ventolin HFA) Wheezing ##1 amoxicillin 875 mg-potassium 875 mg PO Q12H #14 TABLETS 10/05/24 Unknown Rx clavulanate 125 mg tablet azithromycin 250 mg tablet See Rx Instructions PO .COMPLEX #6 10/05/24 Unknown Rx (Zithromax Z-Beka) tabs biotin 10 mg tablet 10 mg PO DAILY 10/05/24 10/04/24 History coenzyme Q10 200 mg capsule (Co 200 mg PO DAILY 10/05/24 10/04/24 History Q-10) gabapentin 100 mg capsule 100 mg PO BID leg pain 10/05/24 10/04/24 History midodrine 2.5 mg tablet 2.5 mg PO BID 10/05/24 10/04/24 History sertraline 100 mg tablet 100 mg PO DAILY 10/05/24 10/04/24 History Allergy/AdvReac Type Severity Reaction Status Date / Time adhesive tape AdvReac Unknown Verified 10/05/24 10:38 morphine AdvReac Vomiting Verified 10/05/24 10:38 Akhxqms-LUI-SaT Reductase AdvReac Pain in Verified 10/05/24 10:38 Inhibitor (Urvdour-Wvz-Byi joints Reductase Inhibitor) Family History Mother Hypertension Other CAD (coronary artery disease) Surgical History Fracture of left hip requiring operative repair Status post cardiac surgery Hx of hysterectomy Hx of cholecystectomy Hx of appendectomy History of coronary artery stent placement (11/17/14) 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) Social History household members: spouse Smoking Status: Never smoker alcohol intake: never substance use type: does not use caffeine: Yes Type: carbonated beverages what type of physical activity do you participate in: none seatbelt use: always do you feel safe at home: Yes ROS ROS ED Constitutional Constitutional ED: Denies chills, fever(s), subjective, sweats or weight loss Eyes Eyes: Denies blurry vision or change in vision ENT ENT ED: Denies ear pain, rhinorrhea or sore throat Cardiovascular Cardiovascular: Denies chest pain, orthopnea, palpitations, paroxysmal nocturnal dyspnea or racing heartbeat Respiratory/Chest Respiratory/Chest: Reports cough, dyspnea and dyspnea on exertion; Denies orthopnea or paroxysmal nocturnal dyspnea Gastrointestinal Gastrointestinal: Denies abdominal pain, diarrhea, melena, nausea or vomiting Genitourinary Genitourinary ED: Denies dysuria, hematuria or urinary frequency Musculoskeletal Musculoskeletal: Denies arthralgias or myalgias Integumentary Denies rash Neurologic Neurologic: Reports weakness; Denies headache(s) or paresthesias Hematologic/Lymphatic Hematologic/Lymphatic: Reports systems reviewed and no addt'l complaints, except as documented EXAM Physical Exam Const Vital Signs: 10/05/24 09:51 10/05/24 10:32 10/05/24 10:34 Temperature 97.9 F 97.4 F L Temperature Source Temporal Temporal Pulse Rate 81 75 Respiratory Rate 16 20 H Respiratory Effort Normal Respiratory Pattern Normal Blood Pressure 120/67 162/63 H Blood Pressure Mean 84 96 Pulse Ox 89 92 Oxygen Delivery Method Room Air Room Air 10/05/24 11:24 10/05/24 12:00 10/05/24 12:35 Temperature 97.7 F L 98.6 F Temperature Source Temporal Oral Pulse Rate 72 70 73 Respiratory Rate 18 18 20 H Respiratory Effort Respiratory Pattern Normal Blood Pressure 175/80 H 171/93 H Blood Pressure Mean 111 119 Pulse Ox 92 92 Oxygen Delivery Method Room Air Room Air 10/05/24 13:00 10/05/24 13:00 10/05/24 14:01 Temperature 98.6 F 98.1 F Temperature Source Oral Pulse Rate 69 70 83 Respiratory Rate 18 20 H Respiratory Effort Respiratory Pattern Blood Pressure 183/80 H 183/80 H 174/80 H Blood Pressure Mean 114 114 111 Pulse Ox 91 92 Oxygen Delivery Method Room Air Positive well nourished and well developed Constitutional Narrative: Pulse ox with ambulation was 89%. General Appearance ED: well developed, NAD and pallor HEENT Reports moist mucous membranes Eyes PERRL and EOMs intact bilaterally General Eye ED: Negative for pale conjunctiva or scleral icterus Neck no lymphadenopathy, supple and no JVD Neck Narrative: Trachea is midline. There is no dysphonia. There is no stridor. Resp normal respiratory effort and clear to auscultation bilaterally Resp Narrative: Rales right lower lobe. Decreased breath sounds right lower lobe. Egophony right lower lobe. Cardio regular rate, regular rhythm, S1 normal heart sound, S2 normal heart sound and no murmurs GI normal to inspection, nondistended, normoactive bowel sounds, non-tender, non-distended and no masses; Negative for hepatosplenomegaly Back/Spine no CVA tenderness Extremity normal to inspection General Extremety ED: Negative for tenderness Neuro oriented x3 and CN's II-XII intact bilaterally Sensorium / Orientation: alert Motor Exam: strength 5/5 throughout Psych mental status grossly normal Skin no rashes or lesions noted, no wounds and No skin turgor normal General Skin Exam: pallor; Negative for jaundice MDM MDM MDM Narrative Medical decision making narrative: Clinically patient has a right lower lobe pneumonia. Will obtain appropriate blood work to assess for endorgan dysfunction and able to perform port score for pulmonary severity index and curb 65 score. Also will have patient ambulate since her pulse ox on room air was 92%. Initial reading was 89. I suspect this was after she walked into the emergency department. Lab Data Attestation: I reviewed the patient's lab results. Lab results narrative: CBC is unremarkable. Comprehensive metabolic panel reveals a glucose of 178 with a normal CO2 anion gap. Liver enzymes are unremarkable. Lactate is normal. Labs: Laboratory Results - last 24 hr 10/05/24 10:30 WBC 9.7 RBC 4.27 Hgb 12.1 Hct 38.2 MCV 89.5 MCH 28.3 MCHC 31.7 L RDW Std Deviation 41.9 RDW Coeff of Angel 12.8 Plt Count 204 MPV 8.9 Immature Gran % (Auto) 0.300 Neut % (Auto) 72.9 H Lymph % (Auto) 11.0 L Greenlee % (Auto) 7.6 Eos % (Auto) 7.9 H Baso % (Auto) 0.3 Absolute Neuts (auto) 7.1 Absolute Lymphs (auto) 1.06 Nucleated RBC % 0 Sodium 143 Potassium 4.2 Chloride 100 Carbon Dioxide 30.5 Anion Gap 12 BUN 16 Creatinine 0.76 Estim Creat Clear Calc 41.77 L Est GFR (MDRD) Non-Af 77 BUN/Creatinine Ratio 20.9 H Glucose 178 H Lactic Acid 1.5 Calcium 9.9 Total Bilirubin 0.28 AST 24 ALT 9 Alkaline Phosphatase 127 H Total Protein 7.2 Albumin 3.9 Globulin 3.3 Albumin/Globulin Ratio 1.2 Radiography Chest X-Ray - ED: 2 View and Read by ED Physician (Elevated right hemidiaphragm. Lateral reveals evidence of kyphoplasty. There is no obvious infiltrate, there is no effusion. Cardiac silhouette and size is unremarkable. Hilum is unremarkable. Osseous structures with no acute process.) Diagnostic Testing: Clinical Impression(s) from Imaging Studies Chest X-Ray 10/05/24 10:40 IMPRESSION: Bibasilar atelectasis or pneumonia. Reading Location: [facility] Radiologist interpretation is atelectasis versus bilateral lower lobe pneumonia. Clinically I think she has a right lower lobe pneumonia based on exam. EKG Initial EKG: Attestation: I personally reviewed and interpreted this EKG as follows: Interpretation: Sinus Rhythm (Rate is 74. There is nonseptic changes which is artifact. [place] interval is 118 ms. Cures duration 84 ms. QT duration 102 ms. [place] is normal.) Treatment and Re-Evaluation :: Since patient's pulse ox of 89% on room air when she ambulated and she has abnormal respiratory sounds will treat with albuterol. Will reassess her pulse ox on room air. If she desaturates we will call hospitalist for admission. Since she does not have sepsis antibiotics do not need to be administered emergently/urgently. Comments:: After aerosol treatment patient was ambulated. Her pulse ox dropped briefly at 89. She was able to walk around the department and had a pulse ox of 92% on room air. In light of this we will discharge with prescription for Augmentin and azithromycin to cover both typical and atypical organisms. He has an appointment see her doctor October 14. Will also discharge with prescription for albuterol metered-dose inhaler. Discharge Plan Triage Chief Complaint: General Illness ED Provider: Frankie Cerrato Dx/Rx/DC Orders Clinical Impression: Right lower lobe pneumonia, Right bundle branch block (RBBB), Essential (primary) hypertension, Shortness of breath, Acute bronchospasm, Frequent falls Instructions: ED Pneumonia (Adult) Prescriptions: New amoxicillin-pot clavulanate 875-125 mg tablet 875 mg PO Q12H Qty: 14 0RF azithromycin [Zithromax Z-Beka] 250 mg tablet See Rx Instructions .ROUTE .COMPLEX Qty: 6 0RF Rx Instructions: For 250 mg dose pack: take 500 mg today (day 1), then 250 mg for 4 days (days 2-5) albuterol sulfate [Ventolin HFA] 90 mcg/actuation HFA aerosol inhaler 2 puff inhalation Q4H PRN PRN (Reason: Wheezing) Qty: 1 0RF No Action aspirin [Adult Aspirin Regimen] 81 mg tablet,delayed release (DR/EC) 81 mg PO DAILY nystatin 100,000 unit/gram ointment 1 applic topical TID PRN acetaminophen 500 mg capsule 500 mg PO Q6H PRN (Reason: Pain) calcium carbonate 600 mg calcium (1,500 mg) tablet 600 mg PO DAILY buspirone 10 mg tablet 10 mg PO BID clonazepam 0.5 mg tablet 0.5 mg PO BID PRN (Reason: anxiety) metformin 500 mg tablet 1,000 mg PO QDAY furosemide 40 mg tablet 40 mg PO DAILY potassium chloride 10 mEq tablet extended release 10 meq PO DAILY rosuvastatin [Crestor] 10 mg tablet 10 mg PO DAILY sertraline 100 mg tablet 100 mg PO DAILY midodrine 2.5 mg tablet 2.5 mg PO BID coenzyme Q10 [Co Q-10] 200 mg capsule 200 mg PO DAILY Rx Instructions: unsure of strength biotin 10 mg tablet 10 mg PO DAILY gabapentin 100 mg capsule 100 mg PO BID Primary Care Provider: Michele Lang Referrals: Michele Lang MD [Primary Care Provider] - Keep [facility] appointment Print Language: Macedonian Disposition Disposition: Home, Self Care Discharge Date/Time: 10/05/24 14:02
[2024-10-05 11:13] LABS: AST(SGOT) 24 U/L (<=31); Alanine Aminotransfer ALT/SGPT 9 U/L (<=34); Albumin, Serum 3.9 g/dL (3.4-4.8); Alkaline Phosphatase 127 U/L (35-104); Anion Gap 12 (5-15); BUN 16 mg/dL (4-19); BUN/Creat Ratio 20.9 RATIO (10-20); Calcium,Total 9.9 mg/dL (7.6-11.0); Carbon Dioxide 30.5 mmol/L (21.0-32.0); Chloride 100 mmol/L (98-108); Estimated Creatinine Clearance 41.77 ml/min (50-250); Globulin 3.3 g/dL (2.2-4.2); Glucose 178 mg/dL (70-99); Potassium 4.2 mmol/L (3.3-5.1)
[2024-10-05] MEDS: Albuterol 2.5 MG/3 ML VIAL.NEB. INHALATION (12:35)
--- OUTSIDE RECORDS SUMMARY | 2024-10-05 20:10 | XMS RPT_ITS | CCD ---
Author Organization [facility] Care Team Providers Care Manager Integration Name Role Phone LEONELA NEWMAN Unavailable Unavailable BRENTON SCHMITT JR. Unavailable Unavailable NEWMAN, LEONELA Unavailable Unavailable BRENTON SCHMITT JR. Unavailable Unavailable NEWMAN, LEONELA Unavailable Unavailable OSKAR, BRENTON Price JRBrian Unavailable Unavailable NEWMAN, LEONELA Unavailable Unavailable BRENTON SCHMITT JRBrian Unavailable Unavailable NEWMAN, LEONELA Unavailable Unavailable BRENTON SCHMITT JR. Unavailable Unavailable Dr. Dominique Lang Primary Care Provider Dr. Dominique Lang Referring Provider Dr. Rafa Tejada Attending Provider [phone] Rafa Tejada Referring Provider [phone] Rafa Tejada Other Provider LUZ Griffin Emergency Provider Dr. Vivek Maldonado Admit Provider Dr. Vivek Maldonado Attending Provider Dr. Vivek Maldonado Other Provider Dr. Hugh Box Other Provider Dr. Martita Singleton Attending Provider Dr. Martita Singleton Other Provider Dr. Dominique Lang Primary Care Provider Dr. Dominique Lang Referring Provider Abdullahi MEDINA, IDA Warner Attending Provider Dr. Dominique Lang Primary Care Provider Dr. Vivek Samano Attending Provider MD Braulio Patel Referring Provider Dr. Dominique Lang Primary Care Provider [phone] Dr. Dominique Lang Referring Provider Victorina MANAGER ENGINE, MANAGER ENGINE-C Nargis Attending Provider Dr. Rafa Tejada Attending Provider Dr. Dominique Lang MD Primary Care Provider Dr. Dominique Lang MD Referring Provider Victorina MANAGER ENGINE-C, Nargis Attending Provider Precious MARCUM, Dr. Dominique Nicholas Attending Provider Julia ESCOBAR, Cande Quintero Attending Provider Victorina MANAGER ENGINE-C, Nargis Referring Provider Scott MARCUM, Dr. Madrigal Attending Provider Dr. Dominique Lang MD Primary Care Provider Victorina MANAGER ENGINE-CNargis Attending Provider Dr. Dominique Lang MD Referring Provider Dr. Cedric Verde DO Emergency Provider Dominique Lang MD Primary Care Provider EVAN ROMERO Referring Unavailable DOMINIQUE LANG Primary Care Unavailable SEDRICKA, FARID EDMUNDO Admitting Unavailabl e SEDRICKA, FARID EDMUNDO Attending Unavailjalil e DOMINIQUE LANG Primary Care Unavailable MARTITA DSOUZA Consulting Unavailabl e DERIK, ALEKSEY A Admitting Unavailable DOMINIQUE LANG Primary Care Unavailable IAN ARREDONDO Attending Unavailable Dr. Dominique Lang MD Primary Care Provider [phone] Dr. Dominique Lang MD Attending Provider [phone] Dr. Dominique Lang MD Referring Provider [phone] Victorina MEDINA-CNargis Attending Provider Dr. Cedric Verde DO Attending Provider Schinner, Dominique E Primary Care Unavailable Victorina MEDINA, Nargis Attending Unavailable SchDominique harrison E Primary Care Unavailable Karl Cummings Attending Unavailable SchinDominique osman E Primary Care Unavailable Cedric Verde Attending Unavailable SchinDominique osman E Referring Unavailable Schinner, Dominique E Primary Care Unavailable SchDominique harrison E Attending Unavailable SchinDominique osman E Primary Care Unavailable Victorina MANAGER ENGINE, Nargis Attending Unavailable SchDominique harrison E Primary Care Unavailable SchDominique harrison E Referring Unavailable SchDominique harrison E Attending Unavailable SchDominique harrison E Referring Unavailable SchinDominique osman E Attending Unavailable SchinDominique osman E Primary Care Unavailable SchDominique harrison E Primary Care Unavailable SchDominique harrison Referring Unavailable SchDominique harrison Attending Unavailable SchDominique harrison E Primary Care Unavailable Rafa Tejada Attending Unavailable Schchristy, Dominique E Primary Care Unavailable Nargis Prajapati NP Referring Unavailable Victorina MEDINA, Nargis Attending Unavailable Dominique Lang Primary Care Unavailable Libertad Fernando NP Referring Unavailable Libertad Fernando NP Attending Unavailable Dominique Lang Referring Unavailable SchDominique harrison E Primary Care Unavailable SchDominique harrison Attending Unavailable SchDominique harrison Referring Unavailable SchDominique harrison Primary Care Unavailable Tonny Cuadra Attending Unavailable Dominique Lang Primary Care Unavailable Rafa Tejada Attending Unavailable Dominique Lang Referring Unavailable SchDominique harrison E Primary Care Unavailable Victorina MEDINA, Nargis Attending Unavailable Dominique Lang Referring Unavailable SchDominique harrison Primary Care Unavailable Nargis Prajapati NP Attending Unavailable Dominique Lang Primary Care Unavailable Tonny Cuadra Attending Unavailable Dominique Lang E Referring Unavailable Libertad Fernando NP Attending Unavailable SchDominique harrison Primary Care Unavailable SchDominique harrison Referring Unavailable Rohan Chavez Attending Unavailable Dominique Lang Primary Care Unavailable SchDominique harrison Primary Care Unavailable Dominique Lang Referring Unavailable Cande Cohen Attending Unavail able Dominique Lang Primary Care Unavailable Nargis Prajapati NP Attending Unavailable Dominique Lang Referring Unavailable Dr. Dominique Lang MD Primary Care Provider Dr. Dominique Lang MD Referring Provider [phone] Precious MARCUM, Dr. Dominique Nicholas Attending Provider Saqib MARCUM, Dr. David Emergency Provider Allergies Allergy Classification Reported Allergen(s) Allergy Type Date of Onset Reaction(s) Facility (19 sources) Adhesive Tape; Translations: [adhesive tape] Propensity to adverse reactions 2 Unknown [facility] (18 sources) Morphine Drug Allergy 2 Vomiting [facility] (19 sources) Cervkmc-[id number] Reductase Inhibitor; Translations: [Dmeasfb-Hjn-Ih a Reductase Inhibitor] Propensity to adverse reactions 2 Pain in joints [facility] (2 sources) Adhesive Tape-Silicones; Translations: [ADHESIVE TAPE-SILICONES] Propensity to adverse reactions to drug 5 Rash [facility] (1 source) Morphine Drug Allergy 5 [facility] Repository Medications Current Medications Medication Drug Class(es) Dates Sig (Normalized) Sig (Original) acetaminophen 500 mg oral capsule (15 sources) Start: 04-26-2022 take 1 capsule by mouth every six hours as needed for pain Acetaminophen 500 mg capsule Active 500 mg PO EVERY 6 HOURS as needed for Pain April 26, 2022 1:00am Start: 06-08-2021 take 1000 mg by mout h three times daily Acetaminophen Active 1000 MG PO THREE TIMES A DAY June 08, 2021 7:58am take 1 tablet by christopher th every eight hours as needed acetaminophen (ARTHRITIS PAIN RELIEF) 650 mg CR tablet Take 650 mg by mouth every 8 hours as needed for pain. Active [id number] 200 actuat albuterol 0.09 mg/actuat metered dose inhaler (1 source) beta2-Adrenergic Agonist Start: 10-05-2024 Albuterol Sulfate (Ventolin Hfa) 90 mcg/actuation HFA aerosol inhaler Active 2 NMA INHALATION EVERY 4 HOURS NEEDED as needed for Wheezing 1 October 05, 2024 12:00am amoxicillin 875 mg / clavulanate 125 mg oral tablet (11 sources) Penicillin-class Antibacterial Start: 10-05-2024 take 1 tablet by mouth every twelve hours Amoxicillin-Pot Clavulanate 875-125 mg tablet Active 875 mg PO Q12H 14 October 05, 2024 12:00am Start: 07-07-2022 End: 05-30-2023 Amoxicillin-Pot Clavulanate 875-125 mg tablet Discontinued 1 {tbl} PO TWICE A DAY 20 July 07, 2022 12:00am May 30, 2023 7:43am Start: 07-07-2022 End: 05-30-2023 take 1 tablet by mouth twice daily Amoxicillin-Pot Clavulanate Discontinued 1 TABLET PO TWICE A DAY July 07, 2022 12:00am May 30, 2023 7:43am aspirin 81 mg delayed release oral tablet (20 sources) Platelet Aggregation Inhibitor, Nonsteroidal Anti-inflammatory Drug Start: 07-24-2018 take 1 tablet by mouth once daily Aspirin (Adult Aspirin Regimen) 81 mg tablet,delayed release (DR/EC) Active 81 mg PO DAILY July 24, 2018 12:00am heart Start: 05-08-2015 End: 06-06-2018 take 1 tablet by mouth once daily Aspirin 81 MG tablet,chewable Discontinued 81 mg PO DAILY@0800 May 08, 2015 1:00am June 06, 2018 11:49am azithromycin 250 mg oral tablet (1 source) Macrolide Antimicrobial Start: 10-05-2024 Azithromycin (Zithromax Z-Beka) 250 mg tablet Active 0 PO .COMPLEX 6 0 October 05, 2024 12:00am For 250 mg dose pack: take 500 mg today (day 1), then 250 mg for 4 days (days 2-5) biotin 10 mg oral tablet (19 sources) Start: 10-05-2024 take 1 tablet by mouth once daily Biotin 10 mg tablet Active 10 mg PO DAILY October 05, 2024 12:00am Start: 05-18-2021 End: 05-22-2021 take 1 tablet by mouth once daily Biotin 1,000 mcg Tablet,Chewable Discontinued 1000 ug PO DAILY May 18, 2021 1:00am May 22, 2021 7:01pm HAIR AND NAILS busPIRone hydrochloride 10 mg oral tablet (20 sources) Start: 06-16-2024 take 1 tablet by mouth twice daily Buspirone 10 mg tablet Active 10 mg PO TWICE A DAY June 16, 2024 12:00am Start: 06-16-2024 take 1 tablet by christopher three times daily Buspirone 10 mg tablet Active 10 mg PO THREE TIMES A DAY June 16, 2024 12:00am Start: 04-01-2024 End: 06-16-2024 take 1 tablet by mouth three times daily Buspirone 7.5 mg tablet Discontinued 7.5 mg PO THREE TIMES A DAY April 01, 2024 1:00am June 16, 2024 1:21pm Start: 04-26-2022 take 10 mg by mouth once daily Buspirone Active 10 MG PO DAILY April 26, 2022 4:51pm Start: 04-18-2021 End: 04-01-2024 take 1 tablet by mouth three times daily Buspirone 10 mg tablet Discontinued 10 mg PO THREE TIMES A DAY April 26, 2022 4:51pm April 01, 2024 3:45pm mood Start: 02-10-2019 End: 04-18-2021 Buspirone 7.5 mg tablet Disc ontinued PO 180 0 February 10, 2019 1:00am April 18, 2021 10:26am Start: 02-10-2019 End: 04-18-2021 Buspirone Discontinued PO 18 0 February 10, 2019 1:00am April 18, 2021 10:26am calcium carbonate 1500 mg oral tablet (7 sources) Start: 06-10-2023 take 1 tablet by mouth once daily Calcium Carbonate 600 mg calcium (1,500 mg) tablet Active 600 mg PO DAILY June 10, 2023 12:00am Calcium Carbonate / vitamin D3 (1 source) take 200 ug by mouth twice daily calcium carbonate/vitamin D3 (CALCIUM 600 + D ORAL) Take 200 mcg by mouth two times a day. Active clonazePAM 0.5 mg oral tablet (5 sources) Benzodiazepine Start: 06-30-2024 take 1 tablet by mouth twice daily as needed for anxiety Clonazepam 0.5 mg tablet Active 0.5 mg PO TWICE A DAY as needed for anxiety June 30, 2024 12:00am cycloSPORINE 0.5 mg/ml ophthalmic suspension (1 source) Calcineurin Inhibitor Immunosuppressant take 1 drop(s) into the eye(s) twice daily cycloSPORINE 0.05 % drop Use 1 drop in both eyes two times a day. Active gabapentin 100 mg oral capsule (16 sources) Anti-epileptic Agent Start: 10-05-2024 take 1 capsule by mouth twice daily Gabapentin 100 mg capsule Active 100 mg PO TWICE A DAY October 05, 2024 12:00am leg pain Start: 06-16-2024 End: 10-05-2024 take 1 capsule by mouth once daily Gabapentin 100 mg capsule Discontinued 100 mg PO daily June 16, 2024 1:20pm October 05, 2024 10:07am Start: 04-01-2024 End: 06-16-2024 take 1 capsule by mouth three times daily Gabapentin 100 mg capsule Discontinued 100 mg PO THREE TIMES A DAY April 01, 2024 1:00am June 16, 2024 1:24pm Start: 10-04-2023 End: 12-10-2023 take 1 capsule by mouth three times daily Gabapentin 100 mg capsule Discontinued 100 mg PO THREE TIMES A DAY October 04, 2023 12:00am December 10, 2023 2:46pm melatonin 3 mg oral tablet (1 source) Start: 08-06-2024 take 3 tablets by mouth once daily at bedtime melatonin 3 mg tablet Take 3 tablets by mouth daily at bedtime. 08/06/2024 Active metFORMIN hydrochloride 500 mg oral tablet (20 sources) Biguanide Start: 06-16-2024 take 2 tablets by mouth once daily Metformin 500 mg tablet Active 1000 mg PO daily June 16, 2024 1:21pm diabetes Start: 05-08-2015 End: 06-16-2024 take 2 tablets by mouth twice daily at mealtime Metformin 500 mg tablet Discontinued 1000 mg PO TWICE DAILY WITH MEALS July 22, 2017 11:01am June 16, 2024 1:24pm diabetes Start: 05-08-2015 End: 07-22-2017 take 1 tablet by mouth at bedtime Metformin 500 MG tablet Discontinued 500 mg PO AT BEDTIME May 08, 2015 1:00am July 22, 2017 11:04am Start: 05-08-2015 End: 07-22-2017 take 1000 mg by mouth twice daily at mealtime Metformin Active 1000 MG PO TWICE DAILY WITH MEALS July 22, 2017 11:01am midodrine hydrochloride 2.5 mg oral tablet (1 source) alpha-Adrenergic Agonist Start: 10-05-2024 take 1 tablet by mouth twice daily Midodrine 2.5 mg tablet Active 2.5 mg PO TWICE A DAY October 05, 2024 12:00am Mupirocin (1 source) RNA Synthetase Inhibitor Antibacterial mupirocin (BACTROBAN) 2% oint Use 0.5 g in the nose two times a day. Active nystatin 100 unt/mg topical ointment (12 sources) Polyene Antifungal Start: 04-26-2022 Nystatin 100,000 unit/gram ointment Active 1 NMA TOPICAL 3 TIMES DAILY NEEDED April 26, 2022 1:00am Start: 04-26-2022 Nystatin Activ e 1 APPLIC TOPICAL THREE TIMES A DAY April 26, 2022 1:00am Start: 04-26-2022 Nystatin Activ e 1 APPLIC TOPICAL DAILY April 26, 2022 1:00am nystatin (MYCOST ATIN) ointment Apply 1 application to affected area two times a day. Active potassium chloride 10 meq extended release oral tablet (20 sources) Start: 05-22-2021 take 1 tablet by mouth once daily Potassium Chloride 10 mEq tablet extended release Active 10 meq PO DAILY May 22, 2021 9:45pm supplement Start: 06-06-2018 End: 05-22-2021 take 2 tablets by mouth once daily Potassium Chloride 10 mEq tablet extended release Discontinued 20 meq PO DAILY 180 3 April 18, 2021 10:29am May 22, 2021 9:45pm Start: 06-06-2018 End: 05-22-2021 take 20 mEq by mouth once daily Potassium Chloride Dis continued 20 MEQ PO DAILY 180 April 18, 2021 10:29am May 22, 2021 9:45pm Start: 05-08-2015 End: 06-06-2018 take 1 tablet by mouth twice daily Potassium Chloride 10 MEQ tablet extended release Discontinued 10 meq PO TWICE A DAY May 08, 2015 1:00am June 06, 2018 11:50am potassium chlori de ER (KLOR-CON M10) 10 mEq tablet Take 10 mEq by mouth once daily. Active Roflumilast (1 source) Phosphodiesterase 4 Inhibitor roflumilast (ZORYVE) 0.3 % cream Apply 0.3 % to affected area once daily. For ears Active sertraline 100 mg oral tablet (20 sources) Serotonin Reuptake Inhibitor Start: 10-06-19 take 1 tablet by mouth once daily Sertraline 100 mg tablet Active 100 mg PO DAILY October 05, 2024 12:00am Start: 08-01-2024 End: 10-05-2024 take 1 tablet by mouth once daily Sertraline 50 mg tablet Discontinued 50 mg PO DAILY August 01, 2024 12:00am October 05, 2024 10:06am Start: 06-16-2024 End: 08-01-2024 take 1 tablet by mouth once daily Sertraline 100 mg tablet Discontinued 100 mg PO daily June 16, 2024 12:00am August 01, 2024 12:39am Start: 04-26-2022 End: 06-16-2024 take 1 tablet by mouth once daily Sertraline (Zoloft) 50 mg tablet Discontinued 50 mg PO DAILY April 26, 2022 1:00am June 16, 2024 1:23pm Start: 04-18-2021 End: 04-26-2022 take 1 tablet by mouth once daily Sertraline (Zoloft) 100 mg tablet Discontinued 100 mg PO DAILY April 18, 2021 1:00am April 26, 2022 4:27pm mood ubidecarenone 200 mg oral ca psule (2 sources) Start: 10-05-2024 Coenzyme Q10 ( Co Q-10) 200 mg capsule Active 200 mg PO DAILY October 05, 2024 12:00am unsure of strength take 1 capsule by mouth once severo ly CO Q-10 200 mg cap Take 200 mg by mouth once daily. Active Completed/Discontinued Medications Medication Drug Class(es) Dates Sig (Normalized) Sig (Original) acetaminophen 325 mg / HYDROcodone bitartrate 5 mg oral tablet (18 sources) Opioid Agonist Start: 08-05-2019 End: 08-08-2019 Hydrocodone-Acetami nophen 1 TABLET tablet Discontinued 1 {tbl} PO EVERY 6 HOURS NEEDED as needed for Pain 10 3 0 August 05, 2019 August 07, 2019 12:00am August 08, 2019 12:03am Fracture of distal end of right radius Start: 08-05-2019 End: 08-08-2019 take 1 tablet by mouth every six hours as needed Hydrocodone-Acetaminophen Discontinued 1 TABLET PO EVERY 6 HOURS NEEDED 10 3 August 05, 2019 August 08, 2019 12:03am ALPRAZolam 0.25 mg oral tablet (20 sources) Benzodiazepine Start: 05-30-2023 End: 06-30-2024 take 1 tablet by mouth twice daily as needed for anxiety Alprazolam 0.25 mg tablet Discontinued 0.25 mg PO TWICE A DAY as needed for anxiety May 30, 2023 7:41am June 30, 2024 3:07pm Start: 07-22-2017 End: 05-30-2023 take 1 tablet by mouth three times daily Alprazolam 0.25 mg tablet Discontinued 0.25 mg PO THREE TIMES A DAY May 22, 2021 9:45pm May 30, 2023 7:44am anxiety Start: 05-08-2015 End: 07-22-2017 take 2 tablets by mouth three times daily Alprazolam 0.5 MG tablet extended release 24 hr Discontinued 0.25 mg PO THREE TIMES A DAY May 08, 2015 1:00am July 22, 2017 11:01am Start: 05-08-2015 End: 07-22-2017 take 0.25 mg by mouth three times daily Alprazolam Discontinued 0.25 MG PO THREE TIMES A DAY May 08, 2015 1:00am July 22, 2017 11:01am calcium carbonate 1500 mg / cholecalciferol 200 unt oral tablet (18 sources) Vitamin D Start: 07-22-2017 End: 04-26-2022 Calcium Carbonate-Vitamin D3 (Calcium 600 + D(3)) 600 mg(1,500mg) -200 unit tablet Discontinued 1 {tbl} PO daily July 22, 2017 12:00am April 26, 2022 4:29pm supplement cephalexin 500 mg oral capsule (5 sources) Cephalosporin Antibacterial Start: 09-14-2023 End: 12-10-2023 take 1 capsule by mouth every twelve hours Cephalexin 500 mg capsule Discontinued 500 mg PO EVERY 12 HOURS 14 0 September 14, 2023 12:00am December 10, 2023 2:48pm cholecalciferol 0.025 mg oral capsule (20 sources) Vitamin D Start: 04-26-2022 End: 06-16-2024 take 1 capsule by mouth once daily Cholecalciferol (Vitamin D3) 25 mcg (1,000 unit) capsule Discontinued 75 ug PO DAILY April 26, 2022 1:00am June 16, 2024 1:23pm Start: 07-22-2017 End: 06-06-2018 take 1 tablet by mouth once daily Cholecalciferol (Vitamin D3) 2,000 unit tablet Discontinued 2000 U PO daily July 22, 2017 12:00am June 06, 2018 11:50am clindamycin 300 mg oral capsule (18 sources) Lincosamide Antibacterial Start: 02-10-2019 End: 08-07-2019 take 1 capsule by mouth three times daily Clindamycin Hcl 300 mg capsule Discontinued 300 mg PO THREE TIMES A DAY February 10, 2019 1:00am August 07, 2019 1:01pm clopidogrel 75 mg oral tablet (20 sources) [id number] Platelet Inhibitor Start: 05-08-2015 End: 12-10-2023 take 1 tablet by mouth once daily Clopidogrel 75 mg tablet Discontinued 75 mg PO DAILY 90 3 December 15, 2021 10:00am July 07, 2022 11:26am Patient is OUT of medication Cyclosporine 0.05 % dropperette (3 sources) Start: 08-01-2024 End: 10-05-2024 Cyclosporine 0.05 % dropperette Discontinued 1 NMA OPHTHALMIC TWICE A DAY August 01, 2024 12:00am October 05, 2024 10:07am Start: 08-01-2024 Cyclosporine 0 .05 % dropperette Active 1 NMA OPHTHALMIC TWICE A DAY August 01, 2024 12:00am docusate sodium 50 mg / sennosides, long term 8.6 mg oral tablet (20 sources) Start: 05-22-2021 End: 06-08-2021 Sennosides-Docusate Sodium (Stool Softener-Stimulant Laxat) 8.6-50 mg tablet Discontinued 2 {tbl} PO TWICE A DAY May 22, 2021 9:45pm June 08, 2021 8:01am stools ezetimibe 10 mg oral tablet (18 sources) Dietary Cholesterol Absorption Inhibitor Start: 05-08-2015 End: 07-22-2017 take 1 tablet by mouth once daily Ezetimibe 10 MG tablet Discontinued 10 mg PO DAILY May 08, 2015 1:00am July 22, 2017 11:05am fenofibrate 160 mg oral tablet (20 sources) Peroxisome Proliferator Receptor alpha Agonist Start: 05-18-2021 End: 12-10-2023 take 1 tablet by mouth once daily Fenofibrate 160 mg tablet Discontinued 160 mg PO DAILY May 18, 2021 1:00am December 10, 2023 2:47pm CHOLESTEROL Start: 07-23-2017 End: 04-18-2021 take 1 tablet by mouth once daily Fenofibrate 160 mg tablet Discontinued 160 mg PO daily 90 3 February 10, 2019 10:04am April 18, 2021 10:29am ferrous sulfate 325 mg oral tablet (20 sources) Start: 05-22-2021 End: 04-26-2022 take 1 tablet by mouth twice daily Ferrous Sulfate 325 mg (65 mg iron) tablet Discontinued 325 mg PO TWICE A DAY 60 30 0 June 08, 2021 8:02am April 26, 2022 4:29pm supplement fluconazole 150 mg oral tablet (5 sources) Azole Antifungal Start: 10-04-2023 End: 12-10-2023 Fluconazole 150 mg tablet Discontinued mg PO October 04, 2023 12:00am December 10, 2023 3:01pm fluticasone propionate 0.05 mg/actuat metered dose nasal spray (11 sources) Corticosteroid Start: 04-26-2022 End: 08-01-2024 Fluticasone Propionate 50 mcg/actuation spray,suspension Discontinued 1 NMA INTRANASAL DAILY April 26, 2022 1:00am August 01, 2024 12:39am Start: 04-26-2022 Fluticasone Pr opionate Active 1 SPRAY INTRANASAL DAILY April 26, 2022 1:00am furosemide 40 mg oral tablet (20 sources) Loop Diuretic Start: 07-24-2018 End: 06-08-2021 take 1 tablet by mouth once daily Furosemide 40 mg tablet Discontinued 40 mg PO daily 90 90 3 January 14, 2020 10:42am April 18, 2021 10:29am Start: 06-06-2018 End: 07-24-2018 Furosemide 40 mg tablet Disc ontinued 20 mg PO daily 45 90 0 June 06, 2018 11:45am July 24, 2018 10:08am Start: 06-06-2018 End: 07-24-2018 take 20 mg by mouth once daily Furosemide Discontinued 20 MG PO daily 45 90 June 06, 2018 11:45am July 24, 2018 10:08am Start: 07-22-2017 End: 06-06-2018 take 1 tablet by mouth once daily Furosemide 40 mg tablet Discontinued 40 mg PO daily 90 90 0 July 22, 2017 12:00am June 06, 2018 11:50am glimepiride 1 mg oral tablet (20 sources) Sulfonylurea Start: 07-24-2018 End: 08-07-2019 take 0.5 mg by mouth once daily Glimepiride 1 mg tablet Discontinued 0.5 mg PO DAILY 45 90 0 July 24, 2018 12:00am August 07, 2019 1:01pm Start: 07-24-2018 End: 08-07-2019 take 0.5 mg by mouth once daily Glimepiride Discontinued 0.5 MG PO DAILY 45 90 July 24, 2018 12:00am August 07, 2019 1:01pm Start: 07-22-2017 End: 06-06-2018 take 1 mg by mouth once daily Glimepiride Discontinued 1 MG PO .COMPLEX July 22, 2017 11:02am June 06, 2018 11:49am 1 mg PO daily if blood sugar is 200 or more Start: 05-08-2015 End: 06-06-2018 take 1 mg by mouth once daily Glimepiride 4 mg tablet Discontinued 1 mg PO .COMPLEX July 22, 2017 11:02am June 06, 2018 11:49am 1 mg PO daily if blood sugar is 200 or more linagliptin 5 mg oral tablet (18 sources) Dipeptidyl Peptidase 4 Inhibitor Start: 06-06-2018 End: 07-24-2018 take 1 tablet by mouth once daily Linagliptin (Tradjenta) 5 mg tablet Discontinued 5 mg PO DAILY June 06, 2018 12:00am July 24, 2018 9:58am lisinopril 5 mg oral tablet (20 sources) Angiotensin Converting Enzyme Inhibitor Start: 05-22-2021 End: 06-08-2021 take 1 tablet by mouth once daily Lisinopril 5 mg tablet Discontinued 5 mg PO DAILY May 22, 2021 9:45pm June 08, 2021 7:59am heart Start: 02-10-2019 End: 04-18-2021 take 1 tablet by mouth once daily Lisinopril 5 mg tablet Discontinued 5 mg PO DAILY 90 3 February 10, 2019 10:04am April 18, 2021 10:29am Start: 06-06-2018 End: 02-10-2019 take 5 mg by mouth once daily Lisinopril 10 mg tablet Discontinued 5 mg PO daily June 06, 2018 11:41am February 10, 2019 10:00am Start: 06-06-2018 End: 02-10-2019 take 5 mg by mouth once daily Lisinopril Discontinued 5 MG PO daily June 06, 2018 11:41am February 10, 2019 10:00am Start: 07-23-2017 End: 06-06-2018 take 1 tablet by mouth once daily Lisinopril 10 mg tablet Discontinued 10 mg PO daily July 23, 2017 12:00am June 06, 2018 11:50am Start: 07-22-2017 End: 07-23-2017 take 1 tablet by mouth once daily Lisinopril 5 mg tablet Discontinued 5 mg PO daily July 22, 2017 12:00am July 23, 2017 10:28am Start: 05-08-2015 End: 07-22-2017 take 1 tablet by mouth once daily Lisinopril 20 MG tablet Discontinued 20 mg PO DAILY May 08, 2015 1:00am July 22, 2017 10:59am loperamide hydrochloride 2 mg oral capsule (18 sources) Opioid Agonist Start: 05-22-2021 End: 06-08-2021 take 1 capsule by mouth every six hours as needed for diarrhea Loperamide 2 mg Capsule Discontinued 2 mg PO EVERY 6 HOURS NEEDED as needed for Diarrhea 0 0 May 22, 2021 1:00am June 08, 2021 8:00am metoprolol tartrate 25 mg oral tablet (20 sources) beta-Adrenergi c Wesley Start: 07-22-2017 End: 04-26-2022 Metoprolol Tartrate 25 mg tablet Discontinued 12.5 mg PO TWICE A DAY 90 January 09, 2021 8:27am April 18, 2021 10:29am Start: 07-22-2017 End: 04-26-2022 take 12.5 mg by mouth twice daily Metoprolol Tartrate Discontinued 12.5 MG PO TWICE A DAY January 09, 2021 8:27am April 18, 2021 10:29am Start: 05-08-2015 End: 07-22-2017 Metoprolol Tartrate 25 MG ta blet Discontinued 12.5 mg PO DAILY May 08, 2015 1:00am July 22, 2017 11:05am Start: 05-08-2015 End: 07-22-2017 take 12.5 mg by mouth once daily Metoprolol Tartrate Discontinued 12.5 MG PO DAILY May 08, 2015 1:00am July 22, 2017 11:05am metroNIDAZOLE 7.5 mg/ml topical lotion (4 sources) Nitroimidazole Antimicrobial Start: 06-16-2024 End: 10-05-2024 Metronidazole 0.75 % lotion Discontinued 1 NMA TOPICAL TWICE A DAY June 16, 2024 12:00am October 05, 2024 10:07am Multivitamin preparation (13 sources) Start: 07-22-2017 End: 06-06-2018 take 1 tablet by mouth once daily Multivitamin Discontinued 1 TABLET PO daily July 22, 2017 11:05am June 06, 2018 11:49am Start: 07-22-2017 End: 06-06-2018 take 1 tablet by mouth once daily Multivitamin Discontinued 1 TABLET PO daily July 22, 2017 12:00am June 06, 2018 11:49am Multivitamin tablet (5 sources) Start: 07-22-2017 End: 06-06-2018 Multivitamin tablet Discontinued 1 {tbl} PO daily July 22, 2017 12:00am June 06, 2018 11:49am [place] 5-Hjp-Udo-Fish Oil (13 sources) Start: 05-08-2015 End: 06-06-2018 take 1000 mg by mouth once daily [place] 6-Vxy-Raa-Fish Oil Discontinued 1000 MG PO DAILY May 08, 2015 3:34pm June 06, 2018 11:49am Start: 05-08-2015 End: 06-06-2018 take 1000 mg by mouth once daily [place] 2-Tyx-Oiw-Fish Oil Discontinued 1000 MG PO DAILY May 08, 2015 1:00am June 06, 2018 11:49am [place] 3-Wju-Wtz-Fish Oil 500 MG capsule,delayed release(DR/EC) (5 sources) Start: 05-08-2015 End: 06-06-2018 [place] 8-Yfq-Lao-Fish Oil 500 MG capsule,delayed release(DR/EC) Discontinued 1000 mg PO DAILY May 08, 2015 1:00am June 06, 2018 11:49am oxyCODONE hydrochloride 5 mg oral tablet (18 sources) Opioid Agonist Start: 05-22-2021 End: 06-08-2021 take 1 tablet by mouth every four hours as needed for pain Oxycodone 5 mg Tablet Discontinued 5 mg PO EVERY 4 HOURS NEEDED as needed for Pain Score 4-10 15 7 0 May 22, 2021 June 08, 2021 8:01am Closed fracture of left hip pantoprazole 40 mg delayed release oral tablet (19 sources) Proton Pump Inhibitor Start: 06-08-2021 End: 06-16-2024 take 1 tablet by mouth once daily Pantoprazole 40 mg Tablet,Delayed Release (Dr/Ec) Discontinued 40 mg PO DAILY 30 30 0 June 08, 2021 12:00am June 16, 2024 1:23pm take 40 mg by mouth once daily p antoprazole sodium (PROTONIX ORAL) Take 40 mg by mouth once daily. Active PARoxetine hydrochloride 40 mg oral tablet (20 sources) Serotonin Reuptake Inhibitor Start: 08-16-2021 End: 04-26-2022 take 1 tablet by mouth once daily Paroxetine Hcl 40 mg Tablet Discontinued 40 mg PO DAILY August 16, 2021 12:00am April 26, 2022 4:29pm Start: 07-23-2017 End: 06-06-2018 take 1 tablet by mouth once daily Paroxetine Hcl 40 mg tablet Discontinued 40 mg PO daily July 23, 2017 12:00am June 06, 2018 11:50am Start: 05-08-2015 End: 07-23-2017 take 1 tablet by mouth once daily Paroxetine Hcl 20 MG tablet Discontinued 20 mg PO DAILY May 08, 2015 1:00am July 23, 2017 10:27am pravastatin sodium 40 mg oral tablet (18 sources) HMG-CoA Reductase Inhibitor Start: 07-22-2017 End: 06-06-2018 take 1 tablet by mouth at bedtime Pravastatin 40 mg tablet Discontinued 40 mg PO AT BEDTIME 90 90 0 July 22, 2017 12:00am June 06, 2018 11:50am rosuvastatin calcium 10 mg oral tablet (20 sources) HMG-CoA Reductase Inhibitor Start: 06-06-2018 End: 05-22-2021 take 1 tablet by mouth once daily Rosuvastatin (Crestor) 10 mg tablet Discontinued 10 mg PO DAILY 90 3 January 09, 2021 8:27am April 18, 2021 10:29am saccharomyces boulardii 250 mg oral capsule (18 sources) Start: 02-10-2019 End: 04-18-2021 take 1 capsule by mouth once daily Saccharomyces Boulardii (Daily Probiotic (S. Boulardii)) 250 mg capsule Discontinued 250 mg PO DAILY February 10, 2019 1:00am April 18, 2021 10:27am traMADol hydrochloride 50 mg oral tablet (18 sources) Opioid Agonist Start: 06-08-2021 End: 04-26-2022 take 1 tablet by mouth every six hours as needed for pain Tramadol 50 mg Tablet Discontinued 50 mg PO EVERY 6 HOURS NEEDED as needed for Pain Score 4-5 28 7 0 June 08, 2021 12:00am April 26, 2022 4:29pm triamcinolone acetonide 0.005 mg/mg topical ointment (4 sources) Corticosteroid Start: 06-16-2024 End: 10-05-2024 Triamcinolone Acetonide 0.5 % ointment Discontinued TOPICAL TWICE A DAY June 16, 2024 12:00am October 05, 2024 10:06am vitamin b12 1 mg oral capsule (20 sources) Vitamin B12 Start: 04-26-2022 End: 05-30-2023 take 1 capsule by mouth once daily Cyanocobalamin (Vitamin B-12) 1,000 mcg capsule Discontinued 1000 ug PO DAILY April 26, 2022 1:00am May 30, 2023 7:44am Start: 05-08-2015 End: 07-22-2017 take 1 tablet by mouth once daily Cyanocobalamin (Vitamin B-12) 2,500 MCG tablet Discontinued 2500 ug PO DAILY May 08, 2015 1:00am July 22, 2017 11:05am Problems Active Problems Problem Classification Problem Date Documented Date Episodic/Chronic Acute cerebrovascular disease (8 sources) Hemorrhage into subdural space of neuraxis; Translations: [Nontraumatic subdural hemorrhage, unspecified] Onset: 5 08-01-2024 Chronic Anxiety disorders (20 sources) Anxiety; Translations: [Anxiety disorder, unspecified] Onset: Chronic Chronic kidney disease (7 sources) Chronic kidney disease stage 3; Translations: [Stage 3 chronic kidney disease] 05-30-2023 Chronic Conduction disorders (20 sources) Right bundle branch block; Translations: [Unspecified right bundle-branch block] Chronic Coronary atherosclerosis and other heart disease (20 sources) Coronary arteriosclerosis; Translations: [Atherosclerotic heart disease of [place] coronary artery without angina pectoris] Chronic Deficiency and other anemia (18 sources) Anemia due to blood loss; Translations: [Iron deficiency anemia secondary to blood loss (chronic)] 06-18-2021 Chronic Comment on above: due to left hip frac ture Deficiency and other anemia (9 sources) Iron deficiency anemia secondary to blood loss (chronic); Translations: [Iron deficiency anemia secondary to blood loss (chronic)] Chronic Deficiency and other anemia (18 sources) Iron deficiency anemia; Translations: [Iron deficiency anemia, unspecified] 03-07-2022 Episodic Deficiency and other anemia (9 sources) Iron deficiency anemia, unspecified; Translations: [Iron deficiency anemia, unspecified] Episodic Deficiency and other anemia (7 sources) Normocytic anemia; Translations: [Anemia, unspecified] 05-30-2023 Episodic Delirium, dementia, and amnestic and other cognitive disorders (2 sources) Frailty; Translations: [Age-related physical debility] Onset: 5 08-05-2024 Chronic Diabetes mellitus with complications (1 source) Type 2 diabetes mellitus with diabetic chronic kidney disease; Translations: [Type 2 diabetes mellitus with diabetic chronic kidney disease] Onset: 5 Chronic Diabetes mellitus without complication (20 sources) Diabetes mellitus; Translations: [Type 2 diabetes mellitus without complications] Onset: 5 Chronic Disorders of lipid metabolism (20 sources) Hyperlipidemia, unspecified; Translations: [Hyperlipidemia] Onset: 8 Chronic E Codes: Fall (20 sources) Fall; Translations: [Unspecified fall, initial encounter] Onset: 5 Episodic Esophageal disorders (20 sources) Gastroesophageal reflux disease; Translations: [Gastro-esophageal reflux disease without esophagitis] Chronic Essential hypertension (20 sources) Essential (primary) hypertension; Translations: [Essential hypertension] Onset: 8 Chronic Fluid and electrolyte disorders (20 sources) Hypokalemia; Translations: [Hypokalemia] Episodic Fracture of neck of femur (hip) (20 sources) Closed fracture of hip; Translations: [Fracture of unspecified part of neck of left femur, initial encounter for closed fracture] Episodic Comment on above: left intertrochanter ic Fracture of upper limb (20 sources) Fracture of distal end of radius; Translations: [Unspecified fracture of the lower end of right radius, initial encounter for closed fracture] Onset: 4 08-06-2019 Episodic Malaise and fatigue (20 sources) Asthenia; Translations: [Other malaise] Episodic Mood disorders (20 sources) Depressive disorder; Translations: [Depression] Chronic Nutritional deficiencies (9 sources) Vitamin D deficiency; Translations: [Vitamin D deficiency, unspecified] Onset: 5 05-30-2023 Chronic Nutritional deficiencies (7 sources) Cobalamin deficiency; Translations: [Deficiency of other specified B group vitamins] 05-30-2023 Episodic Open wounds of extremities (5 sources) Tear of skin; Translations: [Laceration without foreign body of right upper arm, initial encounter] 12-14-2023 Episodic Open wounds of head; neck; and trunk (19 sources) Facial laceration ; Translations: [Laceration without foreign body of other part of head, initial encounter] Onset: 5 09-29-2021 Episodic Osteoarthritis (7 sources) Arthritis of knee; Translations: [Unilateral primary osteoarthritis, unspecified knee] 05-30-2023 Chronic Comment on above: left Other aftercare (1 source) Encounter for other specified aftercare; Translations: [Aftercare] Onset: Episodic Other bone disease and musculoskeletal deformities (7 sources) Osteopenia; Translations: [Other specified disorders of bone density and structure, unspecified site] 05-30-2023 Episodic Other connective tissue disease (10 sources) Swelling of left lower limb; Translations: [Other specified soft tissue disorders] 07-15-2022 Episodic Other connective tissue disease (5 sources) Recurrent falls ; Translations: [Repeated falls] Onset: 5 08-01-2024 Episodic Other connective tissue disease (1 source) Repeated falls; Translations: [Frequent falls] Onset: Episodic Other hereditary and degenerative nervous system conditions (7 sources) Essential tremor; Translations: [Essential tremor] 05-30-2023 Chronic Other inflammatory condition of skin (7 sources) Psoriasis; Translations: [Psoriasis, unspecified] 05-30-2023 Chronic Other injuries and conditions due to external causes (18 sources) Closed injury of head; Translations: [Unspecified injury of head, initial encounter] 08-06-2019 Episodic Other injuries and conditions due to external causes (1 source) Unspecified injury of head, initial encounter; Translations: [Unspecified injury of head, initial encounter] Onset: Episodic Other lower respiratory disease (7 sources) Cough; Translations: [Cough] 04-01-2024 Episodic Other lower respiratory disease (4 sources) Dyspnea; Translations: [Shortness of breath] 06-30-2024 Episodic Other lower respiratory disease (1 source) Shortness of breath; Translations: [Shortness of breath] Onset: Episodic Other upper respiratory disease (1 source) Acute bronchospasm; Translations: [Acute bronchospasm] 10-05-2024 Episodic Pancreatic disorders (not diabetes) (20 sources) Pancreatitis; Translations: [Acute pancreatitis without necrosis or infection, unspecified] Episodic Pneumonia (except that caused by tuberculosis or sexually transmitted disease) (1 source) Right lower zone pneumonia; Translations: [Pneumonia, unspecified organism] 10-05-2024 Episodic Rehabilitation care; fitting of prostheses; and adjustment of devices (1 source) Encounter for fitting and adjustment of other specified devices; Translations: [Encounter for fitting and adjustment of other specified devices] Onset: 5 Chronic Residual codes; unclassified (20 sources) Sleep apnea; Translations: [Sleep apnea, unspecified] 05-22-2021 Chronic Comment on above: AHI 21.2 Residual codes; unclassified (5 sources) Sleep apnea, unspecified; Translations: [Unspecified sleep apnea] Chronic Residual codes; unclassified (5 sources) Obstructive sleep apnea syndrome; Translations: [Obstructive sleep apnea (adult) (pediatric)] 06-10-2023 Chronic Residual codes; unclassified (3 sources) Obstructive sleep apnea (adult) (pediatric); Translations: [Obstructive sleep apnea (adult)(pediatric)] Onset: 5 06-10-2023 Chronic Residual codes; unclassified (8 sources) Edema; Translations: [Edema, unspecified] 06-16-2024 Episodic Skin and subcutaneous tissue infections (15 sources) Cellulitis; Translations: [Cellulitis, unspecified] 07-15-2022 Episodic Skull and face fractures (2 sources) Closed fracture of nasal bones; Translations: [Fracture of nasal bones, initial encounter for closed fracture] Onset: 5 08-07-2024 Episodic Superficial injury; contusion (20 sources) Contusion of lower back; Translations: [Contusion of lower back and pelvis, initial encounter] Onset: 4 08-24-2021 Episodic Unclassified (1 source) Acute cough; Translations: [Acute cough] Onset: 5 Unclassified (1 source) Cough, unspecified; Translations: [Cough, unspecified] Onset: 4 Past or Other Problems Problem Classification Problem Date Documented Date Episodic/Chronic Coagulation and hemorrhagic disorders (1 source) Thrombocytopenic disorder; Translations: [Thrombocytopenia, unspecified] Onset: 08-02-2024 Resolved: 08-05-2024 08-05-2024 Chronic Coronary atherosclerosis and other heart disease (8 sources) Presence of aortocoronary bypass graft; Translations: [Aortocoronary bypass status] Onset: 10-16-2001 Episodic Other aftercare (2 sources) Other prison (current) drug therapy; Translations: [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] Onset: 04-10-2017 Episodic Other aftercare (1 source) Follow-up status; Translations: [Encounter for other specified aftercare] Onset: 08-06-2024 Resolved: 08-20-2024 08-20-2024 Episodic Other lower respiratory disease (1 source) Pleurodynia; Translations: [Pleurodynia] Onset: 01-09-2024 Episodic Other non-traumatic joint disorders (1 source) Pain in right shoulder; Translations: [Pain in right shoulder] Onset: 03-23-2024 Episodic Other nutritional; endocrine; and metabolic disorders (1 source) Hypomagnesemia; Translations: [Hypomagnesemia] Onset: 08-02-2024 Resolved: 08-05-2024 08-05-2024 Chronic Residual codes; unclassified (1 source) Delirium; Translations: [Disorientation, unspecified] Onset: 08-03-2024 Resolved: 08-05-2024 08-05-2024 Episodic Residual codes; unclassified (1 source) Early satiety; Translations: [Early satiety] Onset: 06-08-2024 Episodic Results Test Name Value Interpretation Reference Range Facility Absolute lymphocyte countOrd ered By: Frankie Cerrato on 10-05-2024 Lymphocytes Auto (Unsp spec) [#/Vol] 1.06 10*3/uL 0.83-4.51 [facility] Absolute neutrophil countOrd ered By: Frankie Cerrato on 10-05-2024 Neutrophils (Bld) [#/Vol] 7.1 10*3/uL 2.0-7.7 [facility] Anion gap in Serum or Plasma Ordered By: Frankie Cerrato on 10-05-2024 Anion gap [Moles/Vol] 12 mmol/L 5-15 [facility] Automated lymphocyte count a s percentage of total leukocytesOrdered By: Frankie Cerrato on 10-05-2024 Lymphocytes/100 WBC Auto (Unsp spec) 11.0 % Low 19-41 [facility] BUN/creatinine ratioOrdered By: Frankie Cerrato on 10-05-2024 Urea nitrogen/Creatinine [Mass ratio] 20.9 mg/mg High 10-20 [facility] Basophil percentageOrdered B y: Frankie Cerrato on 10-05-2024 Basophils/100 WBC (Bld) 0.3 % 0-1 [facility] Bilirubin, totalOrdered By: Frankie Cerrato on 10-05-2024 Bilirubin [Mass/Vol] 0.28 mg/dL 0.00-1.30 [facility] Carbon dioxide, total [Moles /volume] in Central venous bloodOrdered By: Frankie Cerrato on 10-05-2024 CO2 [Moles/Vol] 30.5 mmol/L 21.0-32.0 [facility] Chloride assayOrdered By: Skinny Cerrato on 10-05-2024 Chloride [Moles/Vol] 100 mmol/L 98-108 [facility] Eosinophil percentageOrdered By: Frankie Mcnallyo on 10-05-2024 Eosinophils/100 WBC (Bld) 7.9 % High 0-5 [facility] Erythrocyte distribution wid th ratioOrdered By: Frankie Cerrato on 10-05-2024 Erythrocyte distribution width (RBC) [Ratio] 12.8 % 11.6-14.6 [facility] Erythrocyte distribution wid th standard deviationOrdered By: Frankiekinsey Cerrato on 10-05-2024 Erythrocyte distribution width (RBC) [Ratio] 41.9 fl 35.1-43.9 [facility] Glomerular filtration rate ( GFR) estimation/1.73 sq m using serum, plasma, or whole bOrdered By: Frankie Cerrato on 10-05-2024 GFR/1.73 sq M.predicted among non-blacks MDRD (S/P/Bld) [Vol rate/Area] 77 mL/min/{1.73_m2} >60 [facility] Comment on above: mL/min/1.73m2 CKD-EP I Creatinine Equation (2020) Hematocrit Auto (Bld) [Volum e fraction]Ordered By: Frankie Cerrato on 10-05-2024 Hematocrit (Bld) [Volume fraction] 38.2 % 37-47 [facility] Hemoglobin measurementOrdere d By: Frankie Cerrato on 10-05-2024 Hemoglobin (Bld) [Mass/Vol] 12.1 g/dL 12.0-15.0 [facility] Immature granulocytes/100 WB C Auto (Bld)Ordered By: Frankiekinsey Cerrato on 10-05-2024 Immature granulocytes/100 WBC (Bld) 0.300 % 0.0-0.9 [facility] Comment on above: IG% - Immature Granu locytes (promyelocytes, myelocytes and metamyelocytes) > 1% indicates that a LEFT SHIFT is Present. Laboratory - Chemistry and C hemistry - challengeOrdered By: Frankiekinsey Cerrato on 10-05-2024 AST [Catalytic activity/Vol] 24 U/L <32 [facility] Lactic acid measurementOrder ed By: Frankie Cerrato on 10-05-2024 Lactate [Moles/Vol] 1.5 mmol/L 0.0-2.0 [facility] MCV (mean corpuscular volume ) determinationOrdered By: Frankie Cerrato on 10-05-2024 MCV (RBC) [Entitic vol] 89.5 fL 81-99 [facility] Mean corpuscular hemoglobin (MCH) determinationOrdered By: Frankiekinsey Cerrato on 10-05-2024 MCH (RBC) [Entitic mass] 28.3 pg 27.0-32.0 [facility] Mean corpuscular hemoglobin concentration (MCHC) determinationOrdered By: Frankiekinsey Cerrato on 10-05-2024 MCHC (RBC) [Mass/Vol] 31.7 g/dL Low 32-36 [facility] Mean platelet volume determi nationOrdered By: Frankiekinsey Cerrato on 10-05-2024 Platelet mean volume (Bld) [Entitic vol] 8.9 fL 6.2-12.0 [facility] Monocyte percentageOrdered B y: Frankie Cerrato on 10-05-2024 Monocytes/100 WBC (Bld) 7.6 % 0-10 [facility] Neutrophil percentageOrdered By: Frankiekinsey Cerrato on 10-05-2024 Neutrophils/100 WBC (Bld) 72.9 % High 47-70 [facility] Nucleated red blood cell per centageOrdered By: Frankiekinsey Cerrato on 10-05-2024 Nucleated RBC/100 WBC (Bld) [Ratio] 0 % 0-5 [facility] Platelet countOrdered By: Skinny Cerrato on 10-05-2024 Platelets (Bld) [#/Vol] 204 10*3/uL 150-450 [facility] Potassium measurement (mass/ volume)Ordered By: Frankiekinsey Cerrato on 10-05-2024 Potassium (Unsp spec) [Mass/Vol] 4.2 mmol/L 3.3-5.1 [facility] RBC Auto (Bld) [#/Vol]Ordere d By: Frankiekinsey Cerrato on 10-05-2024 RBC (Bld) [#/Vol] 4.27 10*6/uL 4.2-5.4 [facility] Serum creatinine measurement (mass/volume)Ordered By: Frankie Cerrato on 10-05-2024 Creatinine [Mass/Vol] 0.76 mg/dL 0.70-1.20 [facility] Serum globulin measurementOr dered By: Frankie Cerrato on 10-05-2024 Globulin (S) [Mass/Vol] 3.3 g/dL 2.2-4.2 [facility] Serum glucose measurement (m ass/volume)Ordered By: Frankie Cerrato on 10-05-2024 Glucose [Mass/Vol] 178 mg/dL High 70-99 [facility] Serum or plasma alanine rico otransferase (ALT) measurementOrdered By: Frankiekinsey Cerrato on 10-05-2024 ALT [Catalytic activity/Vol] 9 U/L <35 [facility] Serum or plasma albumin chris urement (mass/volume)Ordered By: Frankiekinsey Cerrato on 10-05-2024 Albumin [Mass/Vol] 3.9 g/dL 3.4-4.8 [facility] Serum or plasma albumin/glob ulin mass ratioOrdered By: Frankiekinsey Cerrato on 10-05-2024 Albumin/Globulin [Mass ratio] 1.2 {ratio} 0.9-2.4 [facility] Serum or plasma alkaline mohamud sphatase measurementOrdered By: Frankiekinsey Cerrato 10-05-2024 ALP [Catalytic activity/Vol] 127 U/L High 35-104 [facility] Serum or plasma calcium chris urement (mass/volume)Ordered By: Frankiekinsey Cerrato on 10-05-2024 Calcium [Mass/Vol] 9.9 mg/dL 7.6-11.0 [facility] Serum or plasma urea nitroge n measurement (mass/volume)[facility] Urea nitrogen [Mass/Vol] 16 mg/dL 4-19 [facility] Sodium levelOrdered By: [facility] on 10-05-2024 Sodium [Moles/Vol] 143 mmol/L 133-145 [facility] Total proteinOrdered By: [facility] on 10-05-2024 Protein [Mass/Vol] 7.2 g/dL 5.9-8.4 [facility] White blood cell (WBC) count Ordered By: [facility] Saqib on 10-05-2024 WBC (Bld) [#/Vol] 9.7 10*3/uL 4.4-11.0 [facility] Absolute lymphocyte countOrd ered By: Dominique Lang on 09-16-2024 Lymphocytes Auto (Unsp spec) [#/Vol] 1.66 10*3/uL 0.83-4.51 [facility] Absolute neutrophil countOrd ered By: Dominique Lang on 09-16-2024 Neutrophils (Bld) [#/Vol] 6.7 10*3/uL 2.0-7.7 [facility] Anion gap in Serum or Plasma Ordered By: Dominique Lang on 09-16-2024 Anion gap [Moles/Vol] 16 mmol/L High 5-15 [facility] Automated lymphocyte count a s percentage of total leukocytesOrdered By: Dominique Lang on 09-16-2024 Lymphocytes/100 WBC Auto (Unsp spec) 17.7 % Low 19-41 [facility] BUN/creatinine ratioOrdered By: Dominique Lang on 09-16-2024 Urea nitrogen/Creatinine [Mass ratio] 18.9 mg/mg 10-20 [facility] Basophil percentageOrdered B y: Dominique Lang on 09-16-2024 Basophils/100 WBC (Bld) 0.5 % 0-1 [facility] Bilirubin Test strip Ql (U)O rdered By: Dominique Lang on 09-16-2024 Bilirubin Ql (U) Negative Negative [facility] Bilirubin, totalOrdered By: Dominique Lang on 09-16-2024 Bilirubin [Mass/Vol] 0.25 mg/dL 0.00-1.30 [facility] CBC W/Diff, Automatedon 07-0 Absolute Lymph 1.66 X10 3/uL Normal 0.83-4.51 [facility] Comment on above: Order Comment: Order Date: 09/16/24 Order Info: [id number] - MIALB Performed By: #### L 400.0001, L502.0250, L506.1001, L501.0900 #### [facility] [address] [place], [address] Absolute Neut 6.7 X10 3/uL Normal 2.0-7.7 [facility] Comment on above: Order Comment: Order Date: 09/16/24 Order Info: [id number] - MIALB Performed By: #### L 400.0001, L502.0250, L506.1001, L501.0900 #### [facility] [address] [place], [address] Basophils/100 WBC (Bld) 0.5 % Normal 0-1 [facility] Comment on above: Order Comment: Order Date: 09/16/24 Order Info: [id number] - MIALB Performed By: #### L 400.0001, L502.0250, L506.1001, L501.0900 #### [facility] [address] [place], [address] Eosinophils/100 WBC (Bld) 2.2 % Normal 0-5 [facility] Comment on above: Order Comment: Order Date: 09/16/24 Order Info: [id number] - MIALB Performed By: #### L 400.0001, L502.0250, L506.1001, L501.0900 #### [facility] [address] [place], [address] Erythrocyte distribution width (RBC) [Ratio] 13.2 % Normal 11.6-14.6 [facility] Comment on above: Order Comment: Order Date: 09/16/24 Order Info: [id number] - MIALB Performed By: #### L 400.0001, L502.0250, L506.1001, L501.0900 #### [facility] [address] [place], [address] Hematocrit (Bld) [Volume fraction] 37.2 % Normal 37-47 [facility] Comment on above: Order Comment: Order Date: 09/16/24 Order Info: [id number] - MIALB Performed By: #### L 400.0001, L502.0250, L506.1001, L501.0900 #### [facility] [address] [place], [address] Hemoglobin (Bld) [Mass/Vol] 12.1 g/dL Normal 12.0-15.0 [facility] Comment on above: Order Comment: Order Date: 09/16/24 Order Info: [id number] - MIALB Performed By: #### L 400.0001, L502.0250, L506.1001, L501.0900 #### [facility] [address] [place], [address] IG% 0.300 Normal 0.0-0.9 [facility] Comment on above: Order Comment: Order Date: 09/16/24 Order Info: [id number] - MIALB Result Comment: IG% - Immature Granulocytes (promyelocytes, myelocytes and metamyelocytes) > 1% indicates that a LEFT SHIFT is Present. Performed By: #### L 400.0001, L502.0250, L506.1001, L501.0900 #### [facility] [address] [place], [address] Lymphocytes/100 WBC (Bld) 17.7 % Low 19-41 [facility] Comment on above: Order Comment: Order Date: 09/16/24 Order Info: [id number] - MIALB Performed By: #### L 400.0001, L502.0250, L506.1001, L501.0900 #### [facility] [address] [place], [address] MCH (RBC) [Entitic mass] 28.9 pg Normal 27.0-32.0 [facility] Comment on above: Order Comment: Order Date: 09/16/24 Order Info: [id number] - MIALB Performed By: #### L 400.0001, L502.0250, L506.1001, L501.0900 #### [facility] [address] [place], [address] MCHC (RBC) [Mass/Vol] 32.5 g/dL Normal 32-36 [facility] Comment on above: Order Comment: Order Date: 09/16/24 Order Info: [id number] - MIALB Performed By: #### L 400.0001, L502.0250, L506.1001, L501.0900 #### [facility] [address] [place], [address] MCV (RBC) [Entitic vol] 89.0 fL Normal 81-99 [facility] Comment on above: Order Comment: Order Date: 09/16/24 Order Info: [id number] - MIALB Performed By: #### L 400.0001, L502.0250, L506.1001, L501.0900 #### [facility] [address] [place], [address] Monocytes/100 WBC (Bld) 8.1 % Normal 0-10 [facility] Comment on above: Order Comment: Order Date: 09/16/24 Order Info: [id number] - MIALB Performed By: #### L 400.0001, L502.0250, L506.1001, L501.0900 #### [facility] [address] [place], [address] Neutrophils/100 WBC (Bld) 71.2 % High 47-70 [facility] Comment on above: Order Comment: Order Date: 09/16/24 Order Info: [id number] - MIALB Performed By: #### L 400.0001, L502.0250, L506.1001, L501.0900 #### [facility] [address] [place], [address] Nucleated RBC (Bld) [#/Vol] 0 10*3/uL Normal 0-5 [facility] Comment on above: Order Comment: Order Date: 09/16/24 Order Info: [id number] - MIALB Performed By: #### L 400.0001, L502.0250, L506.1001, L501.0900 #### [facility] [address] [place], [address] Platelet mean volume (Bld) [Entitic vol] 10.5 fL Normal 6.2-12.0 [facility] Comment on above: Order Comment: Order Date: 09/16/24 Order Info: [id number] - MIALB Performed By: #### L 400.0001, L502.0250, L506.1001, L501.0900 #### [facility] [address] [place], [address] Platelets (Bld) [#/Vol] 225 10*3/uL Normal 150-450 [facility] Comment on above: Order Comment: Order Date: 09/16/24 Order Info: [id number] - MIALB Performed By: #### L 400.0001, L502.0250, L506.1001, L501.0900 #### [facility] [address] [place], [address] RBC (Bld) [#/Vol] 4.18 10*6/uL Low 4.2-5.4 [facility] Comment on above: Order Comment: Order Date: 09/16/24 Order Info: [id number] - MIALB Performed By: #### L 400.0001, L502.0250, L506.1001, L501.0900 #### [facility] [address] [place], [address] RDW SD 42.8 fl Normal 35.1-43.9 [facility] Comment on above: Order Comment: Order Date: 09/16/24 Order Info: [id number] - MIALB Performed By: #### L 400.0001, L502.0250, L506.1001, L501.0900 #### [facility] [address], [address] WBC (Bld) [#/Vol] 9.4 10*3/uL Normal 4.4-11.0 [facility] Comment on above: Order Comment: Order Date: 09/16/24 Order Info: [id number] - MIALB Performed By: #### L 400.0001, L502.0250, L506.1001, L501.0900 #### [facility] [address] [place], [address] Calculated very low density lipoprotein (VLDL) cholesterol measurementOrdered By: Dominique Lang on 09-16-2024 Calculated very low density lipoprotein (VLDL) cholesterol measurement 47 mg/dL High 5-40 [facility] Carbon dioxide, total [Moles /volume] in Central venous bloodOrdered By: Dominique Lang on 09-16-2024 CO2 [Moles/Vol] 26.1 mmol/L 21.0-32.0 [facility] Chloride assayOrdered By: Liliana Lang on 09-16-2024 Chloride [Moles/Vol] 100 mmol/L 98-108 [facility] Comprehensive Metabolic Prof ilon 09-16-2024 Albumin/Globulin [Mass ratio] 1.2 {ratio} Normal 0.9-2.4 [facility] Comment on above: Order Comment: Order Date: 09/16/24 Order Info: [id number] - CMP Order Info: [id number] - LIPID Order Info: [id number] - PHOS Performed By: #### L 500.4050, L500.4100, L501.2300 #### [facility] [address] [place], [address] ALK PHOS 111 U/L High 35-104 [facility] Comment on above: Order Comment: Order Date: 09/16/24 Order Info: [id number] - CMP Order Info: [id number] - LIPID Order Info: [id number] - PHOS Performed By: #### L 500.4050, L500.4100, L501.2300 #### [facility] [address] [place], [address] ALT [Catalytic activity/Vol] 16 U/L Normal <=34 [facility] Comment on above: Order Comment: Order Date: 09/16/24 Order Info: [id number]- - CMP Order Info: - LIPID Order Info: [id number] - PHOS Performed By: #### L 500.4050, L500.4100, L501.2300 #### [facility] [address] [place], [address] AST [Catalytic activity/Vol] 32 U/L Normal <=31 [facility] Comment on above: Order Comment: Order Date: 09/16/24 Order Info: [id number] - CMP Order Info: [id number] - LIPID Order Info: [id number] - PHOS Performed By: #### L 500.4050, L500.4100, L501.2300 #### [facility] [address] [place], [address] Bilirubin [Mass/Vol] 0.25 mg/dL Normal 0.00-1.30 [facility] Comment on above: Order Comment: Order Date: 09/16/24 Order Info: [id number] - CMP Order Info: [id number] - LIPID Order Info: [id number]- - PHOS Performed By: #### L 500.4050, L500.4100, L501.2300 #### [facility] [address] [place], [address] Calcium [Mass/Vol] 9.6 mg/dL Normal 7.6-11.0 [facility] Comment on above: Order Comment: Order Date: 09/16/24 Order Info: [id number] - CMP Order Info: [id number] - LIPID Order Info: [id number]- - PHOS Performed By: #### L 500.4050, L500.4100, L501.2300 #### [facility] [address] [place], [address] Chloride [Moles/Vol] 100 mmol/L Normal 98-108 [facility] Comment on above: Order Comment: Order Date: 09/16/24 Order Info: [id number] - CMP Order Info: [id number] - LIPID Order Info: [id number] - PHOS Performed By: #### L 500.4050, L500.4100, L501.2300 #### [facility] [address] [place], [address] CO2 [Moles/Vol] 26.1 mmol/L Normal 21.0-32.0 [facility] Comment on above: Order Comment: Order Date: 09/16/24 Order Info: [id number] - CMP Order Info: [id number] - LIPID Order Info: [id number] - PHOS Performed By: #### L 500.4050, L500.4100, L501.2300 #### [facility] [address] [place], [address] GAP 16 High 5-15 [facility] Comment on above: Order Comment: Order Date: 09/16/24 Order Info: [id number] - CMP Order Info: [id number] - LIPID Order Info: [id number]- - PHOS Performed By: #### L 500.4050, L500.4100, L501.2300 #### [facility] [address] [place], [address] Globulin (S) [Mass/Vol] 3.4 g/dL Normal 2.2-4.2 [facility] Comment on above: Order Comment: Order Date: 09/16/24 Order Info: [id number] - CMP Order Info: [id number] - LIPID Order Info: [id number]- - PHOS Performed By: #### L 500.4050, L500.4100, L501.2300 #### [facility] [address] [place], [address] Potassium [Moles/Vol] 3.7 mmol/L Normal 3.3-5.1 [facility] Comment on above: Order Comment: Order Date: 09/16/24 Order Info: [id number] - CMP Order Info: [id number] - LIPID Order Info: [id number] - PHOS Performed By: #### L 500.4050, L500.4100, L501.2300 #### [facility] [address] [place], [address] Sodium [Moles/Vol] 142 mmol/L Normal 133-145 [facility] Comment on above: Order Comment: Order Date: 09/16/24 Order Info: [id number] - CMP Order Info: [id number] - LIPID Order Info: [id number] - PHOS Performed By: #### L 500.4050, L500.4100, L501.2300 #### [facility] [address] [place], [address] Albumin [Mass/Vol] 3.9 g/dL Normal 3.4-4.8 [facility] Comment on above: Order Comment: Order Date: 09/16/24 Order Info: [id number] - CMP Order Info: [id number] - LIPID Order Info: [id number] - PHOS Performed By: #### L 500.4050, L500.4100, L501.2300 #### [facility] [address] [place], [place], [id number] BUN/CRE 18.9 RATIO Normal 10-20 [facility] Comment on above: Order Comment: Order Date: 09/16/24 Order Info: [id number]- - CMP Order Info: [id number] - LIPID Order Info: [id number]- - PHOS Performed By: #### L 500.4050, L500.4100, L501.2300 #### [facility] [address] [place], [address] Creatinine [Mass/Vol] 0.86 mg/dL Normal 0.70-1.20 [facility] Comment on above: Order Comment: Order Date: 09/16/24 Order Info: [id number] - CMP Order Info: [id number] - LIPID Order Info: [id number] - PHOS Performed By: #### L 500.4050, L500.4100, L501.2300 #### [facility] [address] [place], [place], [id number] [phone] GFR/1.73 sq M.predicted among non-blacks MDRD (S/P/Bld) [Vol rate/Area] 67 mL/min/{1.73_m2} Normal >60 [facility] Comment on above: Order Comment: Order Date: 09/16/24 Order Info: 07 - CMP Order Info: [id number] - LIPID Order Info: [id number]- - PHOS Result Comment: mL/m in/1.73m2 CKD-EPI Creatinine Equation (2020) Performed By: #### L 500.4050, L500.4100, L501.2300 #### [facility] [address] [place], [address] Glucose [Mass/Vol] 115 mg/dL High 70-99 [facility] Comment on above: Order Comment: Order Date: 09/16/24 Order Info: [id number]- - CMP Order Info: [id number] - LIPID Order Info: [id number] - PHOS Performed By: #### L 500.4050, L500.4100, L501.2300 #### [facility] [address] [place], [place], [address] T PROT 7.3 g/dL Normal 5.9-8.4 [facility] Comment on above: Order Comment: Order Date: 09/16/24 Order Info: [id number] - CMP Order Info: [id number] - LIPID Order Info: [id number] - PHOS Performed By: #### L 500.4050, L500.4100, L501.2300 #### [facility] [address] [place], [address] Urea nitrogen [Mass/Vol] 16 mg/dL Normal 4-19 [facility] Comment on above: Order Comment: Order Date: 09/16/24 Order Info: [id number] - CMP Order Info: [id number] - LIPID Order Info: [id number] - PHOS Performed By: #### L 500.4050, L500.4100, L501.2300 #### [facility] [address] [place], [address] Eosinophil percentageOrdered By: Dominique Lang on 09-16-2024 Eosinophils/100 WBC (Bld) 2.2 % 0-5 [facility] Erythrocyte distribution wid th ratioOrdered By: Dominique Lang on 09-16-2024 Erythrocyte distribution width (RBC) [Ratio] 13.2 % 11.6-14.6 [facility] Erythrocyte distribution wid th standard deviationOrdered By: Dominique Lang on 09-16-2024 Erythrocyte distribution width (RBC) [Ratio] 42.8 fl 35.1-43.9 [facility] Glomerular filtration rate ( GFR) estimation/1.73 sq m using serum, plasma, or whole bOrdered By: Dominique Lang on 09-16-2024 GFR/1.73 sq M.predicted among non-blacks MDRD (S/P/Bld) [Vol rate/Area] 67 mL/min/{1.73_m2} >60 [facility] Comment on above: mL/min/1.73m2 CKD-EP I Creatinine Equation (2020) Hematocrit Auto (Bld) [Volum e fraction]Ordered By: Dominique Lang on 09-16-2024 Hematocrit (Bld) [Volume fraction] 37.2 % 37-47 [facility] Hemoglobin A1con 09-16-2024 HbA1c (Bld) [Mass fraction] 6.2 % High <=5.6 [facility] Comment on above: Order Comment: Order Date: 09/16/24 Order Info: [id number] - MIALB Result Comment: Norm al < 5.7 % Prediabetic 5.7 - 6.4 % Diabetic >or= 6.5 % Please note range changes. Performed By: #### L 400.0001, L502.0250, L506.1001, L501.0900 #### [facility] [address], [address] Hemoglobin A1c percentageOrd ered By: Dominique Lang on 09-16-2024 HbA1c (Bld) [Mass fraction] 6.2 % High <5.7 [facility] Comment on above: Normal < 5.7 % Predi abetic 5.7 - 6.4 % Diabetic >or= 6.5 % Please note range changes. Hemoglobin measurementOrdere d By: Dominique Lang on 09-16-2024 Hemoglobin (Bld) [Mass/Vol] 12.1 g/dL 12.0-15.0 [facility] Immature granulocytes/100 WB C Auto (Bld)Ordered By: Dominique Lang on 09-16-2024 Immature granulocytes/100 WBC (Bld) 0.300 % 0.0-0.9 [facility] Comment on above: IG% - Immature Granu locytes (promyelocytes, myelocytes and metamyelocytes) > 1% indicates that a LEFT SHIFT is Present. Ketones Test strip Ql (U)Ord ered By: Dominique Lang on 09-16-2024 Ketones Ql (U) Negative Negative [facility] LDL calc ser/plasOrdered By: Dominique Lang on 09-16-2024 Cholesterol in LDL [Mass/Vol] 43 mg/dL [facility] Comment on above: Qzynghulkz=968-794 m g/dL & Higher Nzjx=357 mg/dL or greater Laboratory - Chemistry and C hemistry - challengeOrdered By: Dominique Lang on 09-16-2024 AST [Catalytic activity/Vol] 32 U/L <32 [facility] Lipid Profileon 09-16-2024 CHOL:HDL 2.90 Normal [facility] Comment on above: Order Comment: Order Date: 09/16/24 Order Info: [id number] - CMP Order Info: [id number] - LIPID Order Info: [id number] - PHOS Performed By: #### L 500.4050, L500.4100, L501.2300 #### [facility] [address] [place], [address] Cholesterol [Mass/Vol] 137 mg/dL Normal <=200 [facility] Comment on above: Order Comment: Order Date: 09/16/24 Order Info: [id number] - CMP Order Info: [id number] - LIPID Order Info: [id number] - PHOS Result Comment: Chol esterol level, Desirable <200 mg/dL Borderline high cholesterol 200-239 mg/dL High cholesterol >=240 mg/dL Recommendations of the NCEP Adult Treatment Panel for the following risk-cutoff thresholds for the [place] population. Performed By: #### L 500.4050, L500.4100, L501.2300 #### [facility] [address] [place], [address] Cholesterol in HDL [Mass/Vol] 47 mg/dL Normal [facility] Comment on above: Order Comment: Order Date: 09/16/24 Order Info: [id number] - CMP Order Info: [id number] - LIPID Order Info: [id number] - PHOS Result Comment: Giovanna onal Cholesterol Education Program (NCEP) guidelines: <40 mg/dL: Low HDL-cholesterol (major risk factor for CHD) >= 60 mg/dL: High HDL-cholesterol (negative risk factor for CHD) HDL-cholesterol is affected by a number of factors, e.g. smoking, exercise, hormones, sex and age. Performed By: #### L 500.4050, L500.4100, L501.2300 #### [facility] [address] [place], [place], [address] Cholesterol in LDL [Mass/Vol] 43 mg/dL Normal [facility] Comment on above: Order Comment: Order Date: 09/16/24 Order Info: [id number] - CMP Order Info: [id number] - LIPID Order Info: [id number] - PHOS Result Comment: Bord intrkf=457-455 mg/dL Higher Vhrk=604 mg/dL or greater Performed By: #### L 500.4050, L500.4100, L501.2300 #### [facility] [address] [place], [place], [id number] Cholesterol in VLDL [Mass/Vol] 47 mg/dL High 5-40 [facility] Comment on above: Order Comment: Order Date: 09/16/24 Order Info: [id number] - CMP Order Info: [id number] - LIPID Order Info: [id number] - PHOS Performed By: #### L 500.4050, L500.4100, L501.2300 #### [facility] [address] [place], [place], [address] Triglyceride [Mass/Vol] 234 mg/dL High [facility] Comment on above: Order Comment: Order Date: 09/16/24 Order Info: [id number] - CMP Order Info: [id number] - LIPID Order Info: [id number] - PHOS Result Comment: The drugs N-Acetylcysteine and Metamizole may falsely depress this assay. Normal range: <150 mg/dL Borderline High: 150-199 mg/dL High: 200-499 mg/dL Very High: >500 mg/dL Performed By: #### L 500.4050, L500.4100, L501.2300 #### [facility] [address] [place], [place], [id number] MCV (mean corpuscular volume ) determinationOrdered By: Dominique Lang on 09-16-2024 MCV (RBC) [Entitic vol] 89.0 fL 81-99 [facility] Mean corpuscular hemoglobin (MCH) determinationOrdered By: Dominique Lang on 09-16-2024 MCH (RBC) [Entitic mass] 28.9 pg 27.0-32.0 [facility] Mean corpuscular hemoglobin concentration (MCHC) determinationOrdered By: Dominique Lang on 09-16-2024 MCHC (RBC) [Mass/Vol] 32.5 g/dL 32-36 [facility] Mean platelet volume determi nationOrdered By: Dominique Lang on 09-16-2024 Platelet mean volume (Bld) [Entitic vol] 10.5 fL 6.2-12.0 [facility] Microalb:Creat Ratio,Random URon 09-16-2024 MALB:CREAT 210.8 mg/g CRE Normal [facility] Comment on above: Order Comment: Order Date: 09/16/24 Order Info: [id number] - MIALB Performed By: #### L 400.0001, L502.0250, L506.1001, L501.0900 #### [facility] [address] [place], [place], [id number] MICROALBUMIN,UR 133.0 mg/L Normal NO RANGE EST. [facility] Comment on above: Order Comment: Order Date: 09/16/24 Order Info: [id number] - MIALB Performed By: #### L 400.0001, L502.0250, L506.1001, L501.0900 #### [facility] [address] [place], [place], [address] Microscopic analysis of urin e for red blood cells (RBC)Ordered By: Dominique Lang on 09-16-2024 Microscopic analysis of urine for red blood cells (RBC) 0-5 SEEN /hpf 0-5 [facility] Monocyte percentageOrdered B y: Dominique Lang on 09-16-2024 Monocytes/100 WBC (Bld) 8.1 % 0-10 [facility] Mucus LM Ql (Urine sed)Order ed By: Dominique Lang on 09-16-2024 Mucus Ql (Urine sed) 0 SEEN /hpf [facility] Neutrophil percentageOrdered By: Dominique Lang on 09-16-2024 Neutrophils/100 WBC (Bld) 71.2 % High 47-70 [facility] Nitrite Test strip Ql (U)Ord ered By: Dominique Lang on 09-16-2024 Nitrite Ql (U) Negative Negative [facility] Nucleated red blood cell per centageOrdered By: Dominique Lang on 09-16-2024 Nucleated RBC/100 WBC (Bld) [Ratio] 0 % 0-5 [facility] PTHINon 09-16-2024 PTH 36 pg/mL Normal 11-61 [facility] Comment on above: Order Comment: Order Date: 09/16/24 Order Info: [id number] - MIALB Performed By: #### L 400.0001, L502.0250, L506.1001, L501.0900 #### [facility] [address] [place], [address] Phosphoruson 09-16-2024 Phosphate [Mass/Vol] 3.9 mg/dL Normal 2.7-4.5 [facility] Comment on above: Order Comment: Order Date: 09/16/24 Order Info: [id number] - CMP Order Info: [id number] - LIPID Order Info: [id number] - PHOS Performed By: #### L 500.4050, L500.4100, L501.2300 #### [facility] [address] [place], [address] Platelet countOrdered By: Liliana Lang on 09-16-2024 Platelets (Bld) [#/Vol] 225 10*3/uL 150-450 [facility] Potassium measurement (mass/ volume)Ordered By: Dominique Lang on 09-16-2024 Potassium (Unsp spec) [Mass/Vol] 3.7 mmol/L 3.3-5.1 [facility] Protein Test strip Ql (U)Ord ered By: Dominique Lang on 09-16-2024 Protein Ql (U) 30 mg/dl High Negative [facility] Protein+Creatinine Ratio,Uri neon 09-16-2024 PROT:CRE RATIO 398 mg/g CRE High 0-200 [facility] Comment on above: Order Comment: Order Date: 09/16/24 Order Info: [id number] - MIALB Performed By: #### L 400.0001, L502.0250, L506.1001, L501.0900 #### [facility] [address] [place], [address] Protein (U) [Mass/Vol] 25.1 mg/dL High 0.0-12.0 [facility] Comment on above: Order Comment: Order Date: 09/16/24 Order Info: [id number] - MIALB Performed By: #### L 400.0001, L502.0250, L506.1001, L501.0900 #### [facility] [address] [place], [address] UR CREAT 63.10 mg/dL Normal 28.00-217.00 [facility] Comment on above: Order Comment: Order Date: 09/16/24 Order Info: [id number] - MIALB Performed By: #### L 400.0001, L502.0250, L506.1001, L501.0900 #### [facility] [address] [place], [address] RBC Auto (Bld) [#/Vol]Ordere d By: Dominique Lang on 09-16-2024 RBC (Bld) [#/Vol] 4.18 10*6/uL Low 4.2-5.4 [facility] Random urine creatinine chris urement (mass/volume)Ordered By: Dominique Lang on 09-16-2024 Creatinine Unsp time (U) [Mass/Vol] 63.10 mg/dL 28.00-217.00 [facility] Screening total cholesterol/ high density lipoprotein (HDL) cholesterol ratioOrdered By: Dominique Lang on 09-16-2024 Cholesterol.total/Cathy sterol in HDL [Mass ratio] 2.90 {ratio} [facility] Serum creatinine measurement (mass/volume)Ordered By: Dominique Lang on 09-16-2024 Creatinine [Mass/Vol] 0.86 mg/dL 0.70-1.20 [facility] Serum globulin measurementOr dered By: Dominique Lang on 09-16-2024 Globulin (S) [Mass/Vol] 3.4 g/dL 2.2-4.2 [facility] Serum glucose measurement (m ass/volume)Ordered By: Dominique Lang on 09-16-2024 Glucose [Mass/Vol] 115 mg/dL High 70-99 [facility] Serum or plasma alanine rico otransferase (ALT) measurementOrdered By: Dominique Lang on 09-16-2024 ALT [Catalytic activity/Vol] 16 U/L <35 [facility] Serum or plasma albumin chris urement (mass/volume)Ordered By: Dominique Lang on 09-16-2024 Albumin [Mass/Vol] 3.9 g/dL 3.4-4.8 [facility] Serum or plasma albumin/glob ulin mass ratioOrdered By: Dominique Lang on 09-16-2024 Albumin/Globulin [Mass ratio] 1.2 {ratio} 0.9-2.4 [facility] Serum or plasma alkaline mohamud sphatase measurementOrdered By: Dominique Lang on 09-16-2024 ALP [Catalytic activity/Vol] 111 U/L High 35-104 [facility] Serum or plasma calcium chris urement (mass/volume)Ordered By: Dominique Lang on 09-16-2024 Calcium [Mass/Vol] 9.6 mg/dL 7.6-11.0 [facility] Serum or plasma cholesterol in HDL measurement (mass/volume)Ordered By: Dominique Lang on 09-16-2024 Cholesterol in HDL [Mass/Vol] 47 mg/dL >40 [facility] Comment on above: National Cholesterol Education Program (NCEP) guidelines:<40 mg/dL: Low HDL-cholesterol (major risk factor for CHD)>= 60 mg/dL: High HDL-cholesterol (negative risk factor for CHD)HDL-cholesterol is affected by a number of factors, e.g. smoking, exercise, hormones, sex and age. Serum or plasma cholesterol measurement (mass/volume)Ordered By: Dominique Lang on 09-16-2024 Cholesterol [Mass/Vol] 137 mg/dL <201 [facility] Comment on above: Cholesterol level, D esirable <200 mg/dLBorderline high cholesterol 200-239 mg/dLHigh cholesterol >=240 mg/dLRecommendations of the NCEP Adult Treatment Panel for the following risk-cutoff thresholds for the [place] population. Serum or plasma urea nitroge n measurement (mass/volume)Ordered By: Dominique Lang on 09-16-2024 Urea nitrogen [Mass/Vol] 16 mg/dL 4-19 [facility] Sodium levelOrdered By: Dominique Lang on 09-16-2024 Sodium [Moles/Vol] 142 mmol/L 133-145 [facility] Squamous epithelial cells de tection in urine sediment by light microscopyOrdered By: Dominique Lang on 09-16-2024 Epithelial cells.squamous LM Ql (Urine sed) 0 SEEN /hpf 5-10 [facility] Total proteinOrdered By: Aren Lang on 09-16-2024 Protein [Mass/Vol] 7.3 g/dL 5.9-8.4 [facility] Triglycerides measurementOrd ered By: Dominique Lang on 09-16-2024 Triglyceride [Mass/Vol] 234 mg/dL High <199 [facility] Comment on above: The drugs N-Acetylcy steine and Metamizole may falsely depress this assay. Normal range: <150 mg/dLBorderline High: 150-199 mg/dLHigh: 200-499 mg/dLVery High: >500 mg/dL Urinalysis, Completeon 09-16 WBC 5-10 SEEN Normal 0-5 [facility] Comment on above: Order Comment: Urine , Random Performed By: #### L 400.0001, L502.0250, L506.1001, L501.0900 #### [facility] [address] [place], [address] RBC 0-5 SEEN Normal 0-5 [facility] Comment on above: Order Comment: Urine , Random Performed By: #### L 400.0001, L502.0250, L506.1001, L501.0900 #### [facility] [address] [place], [address] BACTERIA 0 SEEN Normal None Seen [facility] Comment on above: Order Comment: Urine , Random Performed By: #### L 400.0001, L502.0250, L506.1001, L501.0900 #### [facility] [address] [place], [address] EPI,SQUAMOUS 0 SEEN Normal 5-10 [facility] Comment on above: Order Comment: Urine , Random Performed By: #### L 400.0001, L502.0250, L506.1001, L501.0900 #### [facility] [address] [place], [address] Mucus Ql (Urine sed) 0 SEEN Normal [facility] Comment on above: Order Comment: Urine , Random Performed By: #### L 400.0001, L502.0250, L506.1001, L501.0900 #### [facility] [address] [place], [address] Urine albumin measurement wi th detection limit of 20 mg/L or less (mass/volume)Ordered By: Dominique Lang on 09-16-2024 Albumin DL <= 20 mg/L (U) [Mass/Vol] 133.0 mg/L NO RANGE EST. [facility] Urine clarityOrdered By: Aren Lang on 09-16-2024 Clarity (U) Clear Clear [facility] Urine color determinationOrd ered By: Dominique Lang on 09-16-2024 Color (U) Straw Yellow [facility] Urine glucose detectionOrder ed By: Dominique Lang on 09-16-2024 Glucose Ql (U) Normal mg/dl Normal [facility] Urine leukocyte esterase det ection by dipstickOrdered By: Dominique Lang on 09-16-2024 Leukocyte esterase Test strip Ql (U) 100 /ul High Negative [facility] Urine pHOrdered By: Dominique harrison on 09-16-2024 pH (U) 6.0 [pH] 5.0 - 8.0 [facility] Urine protein measurement (m ass/volume)Ordered By: Dominique Lang on 09-16-2024 Protein (U) [Mass/Vol] 25.1 mg/dL High 0.0-12.0 [facility] Urine protein/creatinine mas s ratioOrdered By: Dominique Lang on 09-16-2024 Protein/Creatinine (U) [Mass ratio] 398 mg/g CRE High 0-200 [facility] Urine sediment bacteria coun t by microscopy (number/high power field)Ordered By: Dominique Lang on 09-16-2024 Bacteria LM.HPF (Urine sed) [#/Area] 0 /[HPF] None Seen [facility] Urine specific gravity measu rementOrdered By: Dominique Lang on 09-16-2024 Specific gravity (U) [Rel density] 1.015 1.002-1.030 [facility] Urine urobilinogen measureme ntOrdered By: Dominique Lang on 09-16-2024 Urobilinogen Ql (U) Normal mg/dl Normal [facility] Vitamin D,25 Hydroxyon 09-16 Vitamin D 25-OH 67.0 ng/mL Normal 30-100 [facility] Comment on above: Order Comment: Order Date: 09/16/24 Order Info: [id number] - CMP Order Info: [id number] - LIPID Order Info: [id number] - PHOS Result Comment: Justyna min D Status Deficiency: <20 ng/mL (50nmol/L) Insufficiency: 20-30 ng/mL (50-75 nmol/L) Sufficiency: 30-100 ng/mL (75-250 nmol/L) Toxicity: >100 ng/mL (>250 nmol/L) Performed By: #### L 400.0001, L502.0250, L506.1001, L501.0900 #### [facility] [address], [address] White blood cell (WBC) count Ordered By: Dominique Lang on 09-16-2024 WBC (Bld) [#/Vol] 9.4 10*3/uL 4.4-11.0 [facility] White blood cell countOrdere d By: Dominique Lang on 09-16-2024 White blood cell count 5-10 SEEN /hpf 0-5 [facility] CT BRAIN WO IVCONon 08-25-[address] BRAIN WO IVCON * * *Final Report* * * DATE OF EXAM: Aug 24 2024 4:07PM [facility] 0504 - CT BRAIN WO IVCON / PROCEDURE REASON: Subdural hematoma (HCC) * * * * Physician Interpretation * * * * EXAMINATION: CT BRAIN WO IVCON CLINICAL HISTORY: Follow-up subdural hematoma TECHNIQUE: Serial axial images without IV contrast were obtained from the vertex to the foramen magnum. MQ: CTBWO_3 CT Radiation dose: Integrated Dose-Length Product (DLP) for this visit = 770 mGy*cm CT Dose Reduction Employed: No dose reduction techniques were required COMPARISON: 08/06/2024. RESULT: Post-operative change: None. Acute change: No evidence of an acute infarct or other acute parenchymal process. Hemorrhage: Interval resolution of previously seen subdural hemorrhage along anterior-inferior falx. No current CT evidence of acute intracranial hemorrhage. Mass Lesion / Mass Effect: There is no evidence of an intracranial mass or extraaxial fluid collection. No significant mass effect. Chronic change: Scattered patchy foci of low attenuation are present within the supratentorial white matter, a nonspecific finding that most commonly represents mild small vessel disease. Parenchyma: There is mild generalized volume loss. Ventricles: Ventricular enlargement concordant with the degree of parenchymal volume loss. Paranasal sinuses and skull base: The visualized paranasal sinuses are grossly clear. The skull base and imaged soft tissues are unremarkable. IMPRESSION: Interval resolution of previously seen subdural hemorrhage along anterior-inferior falx. No current CT evidence of acute intracranial hemorrhage. No CT evidence of acute intracranial abnormalities. Chronic changes, as detailed above. Toll Gate Tender: PABLO Transcribe Date/Time: Aug 24 2024 4:17P Dictated by : BETSY RODRIGUEZ MD This examination was interpreted and the report reviewed and electronically signed by: BETSY RODRIGUEZ MD on Aug 24 2024 4:21PM EST [id number] Normal [facility] CT Head WO contraston 2024 IMPRESSION: Interval resolution of previously seen subdural hemorrhage along anterior-inferior falx. No current CT evidence of acute intracranial hemorrhage. No CT evidence of acute intracranial abnormalities. Chronic changes, as detailed above. Toll Gate Tender: PABLO Transcribe Date/Time: Aug 24 2024 4:17P Dictated by : BETSY RODRIGUEZ MD This examination was interpreted and the report reviewed and electronically signed by: BETSY RODRIGUEZ MD on Aug 24 2024 4:21PM [facility] * * *Final Report* * * DATE OF EXAM: Aug 24 2024 4:07PM [facility] 0504 - CT BRAIN WO IVCON / PROCEDURE REASON: Subdural hematoma (HCC) * * * * Physician Interpretation * * * * EXAMINATION: CT BRAIN WO IVCON CLINICAL HISTORY: Follow-up subdural hematoma TECHNIQUE: Serial axial images without IV contrast were obtained from the vertex to the foramen magnum. MQ: CTBWO_3 CT Radiation dose: Integrated Dose-Length Product (DLP) for this visit = 770 mGy*cm CT Dose Reduction Employed: No dose reduction techniques were required COMPARISON: 08/06/2024. RESULT: Post-operative change: None. Acute change: No evidence of an acute infarct or other acute parenchymal process. Hemorrhage: Interval resolution of previously seen subdural hemorrhage along anterior-inferior falx. No current CT evidence of acute intracranial hemorrhage. Mass Lesion / Mass Effect: There is no evidence of an intracranial mass or extraaxial fluid collection. No significant mass effect. Chronic change: Scattered patchy foci of low attenuation are present within the supratentorial white matter, a nonspecific finding that most commonly represents mild small vessel disease. Parenchyma: There is mild generalized volume loss. Ventricles: Ventricular enlargement concordant with the degree of parenchymal volume loss. Paranasal sinuses and skull base: The visualized paranasal sinuses are grossly clear. The skull base and imaged soft tissues are unremarkable. [facility] Provider, [facility] - 08/24/2024 * * *Final Report* * * DATE OF EXAM: Aug 24 2024 4:07PM [facility] 0504 - CT BRAIN WO IVCON / PROCEDURE REASON: Subdural hematoma (HCC) * * * * Physician Interpretation * * * * EXAMINATION: CT BRAIN WO IVCON CLINICAL HISTORY: Follow-up subdural hematoma TECHNIQUE: Serial axial images without IV contrast were obtained from the vertex to the foramen magnum. MQ: CTBWO_3 CT Radiation dose: Integrated Dose-Length Product (DLP) for this visit = 770 mGy*cm CT Dose Reduction Employed: No dose reduction techniques were required COMPARISON: 08/06/2024. RESULT: Post-operative change: None. Acute change: No evidence of an acute infarct or other acute parenchymal process. Hemorrhage: Interval resolution of previously seen subdural hemorrhage along anterior-inferior falx. No current CT evidence of acute intracranial hemorrhage. Mass Lesion / Mass Effect: There is no evidence of an intracranial mass or extraaxial fluid collection. No significant mass effect. Chronic change: Scattered patchy foci of low attenuation are present within the supratentorial white matter, a nonspecific finding that most commonly represents mild small vessel disease. Parenchyma: There is mild generalized volume loss. Ventricles: Ventricular enlargement concordant with the degree of parenchymal volume loss. Paranasal sinuses and skull base: The visualized paranasal sinuses are grossly clear. The skull base and imaged soft tissues are unremarkable. IMPRESSION IMPRESSION: Interval resolution of previously seen subdural hemorrhage along anterior-inferior falx. No current CT evidence of acute intracranial hemorrhage. No CT evidence of acute intracranial abnormalities. Chronic changes, as detailed above. Toll Gate Tender: PSCB Transcribe Date/Time: Aug 24 2024 4:17P Dictated by : BETSY RODRIGUEZ MD This examination was interpreted and the report reviewed and electronically signed by: BETSY RODRIGUEZ MD on Aug 24 2024 4:21PM EST [facility] Radiology Study observation (narrative) [facility] CT Head WO contrastOrdered B y: [facility] Provider on 08-24-2024 [facility] NUTRITIONon 08-21-2024 NUTRITION HNO ID: [id number] Author: MINERVA WATSON RD Service: Nutrition Therapy Author Type: Registered Dietitian Type: Nutrition Filed: 08/21/2024 08:43 Note Text: NUTRITION THERAPY REASSESSMENT NOTE SERVICE DATE: 08/21/2024 SERVICE TIME: Start Time: 0800 Nutrition Assessment: Recommended Malnutrition Diagnosis: Mild Protein-Calorie Malnutrition (08/21/24 0805 : Minerva Watson RD) In the context of: Acute Illness or Injury Based on: Insufficient Energy Intake Nutrition Diagnosis: Problem: Suboptimal protein/energy intake Related to: Anorexia As evidenced by: Intake records, Patient/family self-report Care Plan: Follow for diet advancement to goal (upgraded to dental soft 08/15, tolerates) Supplements: Ensure Plus High Protein (ONS adjusted per preference) Monitor and Evaluation: Meet greater than 75% of estimated needs, Monitor fluid/electrolyte balance, Monitor labs, I/Os, vital signs, weight Discharge Recommendations: Diet, Oral Supplements Diet: as tolerated Oral Supplements: high protein high calorie twice daily Interval History: 14 day LOS here for Therapy AND Med Mgt, meds AND labs reviewed, wt stable no new nutrition concerns noted or stated, good intake ONS accepted Intake History: Nutrition Intake Prior to Admission: Less than 50% estimated energy needs (ONS use PASTE UP ARTIST APPRENTICE QD noted w/ 2 meals daily sttated) greater than or equal to 5 days Current Nutrition Intake: Less than 75% estimated energy needs Current Intake Over time: Greater than or equal to 5 days Dosing Weight: 45 kg (99 lb 3.3 oz) Dosing Weight Type: [place] body weight Estimated kilocalorie needs: 6092-4066 Calorie Calculation Method: 25-30 kcals/kg Estimated protein needs (grams): 46-54 Grams protein determined by: 1.0 - 1.2 g/kg Diet Orders (From admission, onward) Start Ordered 08/15/24 1415 DIET CARBOHYDRATE CONTROLLED START NOW Question Answer Comment Carbohydrate Control CONSISTENT CARBOHYDRATE Food Consistency DENTAL SOFT 08/15/24 1413 08/14/24 0915 DIET SUPPLEMENTS START NOW Question Answer Comment Supplement 1 BOOST [facility] Supplement 1 Frequency BREAKFAST Supplement 1 Frequency DINNER 08/14/24 0915 Anthropometrics: Height: 149.9 cm (4' 11) Weight: 57.2 kg (126 lb 1.7 oz) 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 Weight change percentage over time: suspected error limited records vs >7% loss @ 5 days Weight Change: Not assessed Physical Exam: Subcutaneous fat loss: No Subcutaneous Fat Loss Muscle loss: No Muscle Loss Potential micronutrient deficiency: Teeth, Lips Potential micronutrient deficiency: Teeth, Lips Edema/Ascites: Lower extremities Lower Extremity: Moderate 2+ GI Symptoms: Early satiety (some residual oral pain from fall trauma, dental services shceduled r/t deture fit) Functional Status: Improved Potential Signs of Inflammation: Chronic condition DM Lines, Drains, and Airways None MNT Billing: $ Reassessment: 1 unit Time Spent (mins): 8 SIGNATURE: Minerva Watson RD PATIENT NAME: Tamica Anderson DATE: August 21, 2024 TIME: 7:17 AM Normal [facility] CNDSon 08-20-2024 [facility] HNO ID: [id number] Author: ALISON MAC APRN.[facility] Service: Hospital Medicine Author Type: Nurse Practitioner Type: Discharge Summary Filed: 08/20/2024 12:06 Note Text: Attestation signed by Ian Arredondo MD at 08/21/2024 1:[address] [facility] STAFF PHYSICIAN NOTE OF PERSONAL INVOLVEMENT IN CARE I have reviewed the discharge summary obtained and documented by the nurse practitioner and discussed the case on as needed basis Principal Problem (Resolved): Aftercare (POA: Yes) Active Problems: Subdural hematoma (HCC) (POA: Yes) SAH (subarachnoid hemorrhage) (HCC) (POA: Yes) Primary hypertension (POA: Yes) Hyperlipidemia (POA: Yes) Lip laceration (POA: Yes) Controlled type 2 diabetes mellitus without complication, without long-term current use of insulin (HCC) (POA: Yes) Closed fracture of nasal bone (POA: Yes) Frequent falls (POA: Yes) Anxiety (POA: Yes) Malnutrition of mild degree (HCC) (POA: Yes) Ian Arredondo MD, [facility] Staff,Dept of Hospital Medicine August 21, 2024 1:17 PM Pager:Click here to page DISCHARGE SUMMARY PATIENT NAME: Tamica Anderson ADMISSION DATE: 08/06/2024 DISCHARGE DATE: 08/21/24 ATTENDING PHYSICIAN: Ian Arredondo MD Code Status: Full Code PCP: Dominique Lang MD, MD Highest Readmission Risk Score: 11 The 30 day readmissions risk score is derived from an internally validated risk model which evaluates patient level characteristics, utilization history, medication orders and lab results up until the day of discharge. Patients with a score of 39 or above are considered highest risk for readmission. Specific patient level drivers will be listed at the bottom of the summary. TRANSITIONS OF CARE CRITICAL ISSUES: RODRIGUEZ MEDICATION CHANGES: none FOLLOW UP APPOINTMENTS: CT brain 08/24, plastics 08/25, NSGY 08/27 REASON FOR HOSPITALIZATION/FINAL DIAGNOSIS: aftercare HOSPITAL PROBLEMS: Active Hospital Problems Diagnosis POA SAH (subarachnoid hemorrhage) (HCC) Yes Subdural hematoma (HCC) Yes Lip laceration Yes Closed fracture of nasal bone Yes Frequent falls Yes Controlled type 2 diabetes mellitus without complication, without long-term current use of insulin (HCC) Yes Anxiety Yes Malnutrition of mild degree (HCC) Yes Primary hypertension Yes Hyperlipidemia Yes Resolved Hospital Problems Diagnosis POA Aftercare Yes HOSPITAL COURSE: Tamica Anderson is an 84 year old female PMH of recurrent falls, CAD s/p PCI w/stents(2001) on ASA, CABG (2001) HTN, HLD, T2DM, was admitted to [facility] after a traumatic fall. Patient fell while using her walker her head hit the floor. Image findings significant for subarachnoid hemorrhage, subdural hemorrhage, nasal bone fractures, and lip laceration. Seen by neurosurgery who felt the subarachnoid hemorrhage was non-operative. repeat scans were stable. the patient was started on Keppra x 7 days for seizure prophylaxis. Seen by ENT and plastic surgery who felt nasal bone fractures were non-operative. she needs to follow-up with plastic surgery outpatient. she should be on nasal and sinus precautions. Lip laceration was sutured with dissolvable sutures. Seen by speech therapy who recommended pureed diet due to swelling and poor denture fitting. 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 PT and OT recommended fpc facility, thus patient was transferred to [facility] for further rehab services. Progressed well with PT and OT. DC home with home healthcare. Follow up CT brain 08/24, plastic surgery 08/25, Neurosurgery 08/27, and PCP Dr. Lang. OPERATIONS/PROCEDURE DURING THIS HOSPITALIZATION: * No surgery found * CONSULTS DURING HOSPITALIZATION: Treatment Team: Attending Provider: Ian Arredondo MD Primary Service: Alison Mac APRN.BREAKER MACHINE OPERATOR PATIENT CONDITION AT DISCHARGE: Stable DISCHARGE DISPOSITION: Home with Home Health Discharge Physical Exam: VITAL SIGNS: BP 151/76 Pulse 65 Temp 36.9 ?C (98.4 ?F) (Oral) Resp 16 Ht 149.9 cm (4' 11) Wt 57.2 kg (126 lb 1.7 oz) SpO2 94% BMI 25.47 kg/m? GENERAL: Alert, no distress, cooperative SKIN: Skin color, texture, turgor normal. No rashes. HEAD/SINUSES: + bruising to face, lips and neck near healed, swelling to nose. OROPHARYNX: tongue normal. Teeth normal. Laceration to upper lip healing well LUNGS: Lungs clear to all lobes. On RA. CARDIAC: No murmur, RRR ABDOMEN: Abdomen soft, non-tender, BS normal EXTREMITIES: Extremities without edema, clubbing or skin discoloration. Good capillary refill. NEURO: Grossly normal cognition, Sensation grossly intact PULSES: 2+ radial, 2+ dorsalis pedis WOUND/SURGICAL SITE CARE: None SUPPLIES OR EQUIPMENT: None DIET: Discharge Recommendations: Diet, Oral Supplements Diet: as tolerated Oral Suppl (more content not included)... Normal [facility] THERAPY NTon 08-20-2024 THERAPY NT HNO ID: [id number] Author: PAULETTE BUSBY OTR/Catherine Service: Occupational Therapy Author Type: Occupational Therapist Type: Therapy (PT/OT/Speech/Resp) Filed: 08/20/2024 14:24 Note Text: Summary: OT discharge Occupational Therapy Intermediate Facility Treatment Summary and Discharge SERVICE DATE: 08/20/2024 SERVICE TIME: 1344 to 1421 ROOM: [place] [id number] OT 6 Clicks Score: 21 DISCHARGE RECOMMENDATIONS Discharge Therapy Services Discharged (date): 08/21/24 Discharged To: Home Home Exercise Program Status: Supervision Ability To Apply Precautions Upon Discharge: Requires Cues Home OT Anticipated Discharge Needs: Physical Assist at Home, Supervision at Home Recommended Discharge Equipment: Commode-3 in 1 GOALS: pt has made progress towards goals; she has met all transfer and UE goals; she requires min A at times for LB ADLs; Min A with home management tasks; kitchen mobility not addressed but encouraged to be completed with HHT to assess safety and independence; precautions and safety for ADLs were verbalized with handouts given. Patient will demonstrate progress to optimize self-care activities, cognitive and/or coping to maximize function upon discharge. Upper Body Bathing with: Modified Independent Upper Body Dressing with: Independent Lower Body Bathing with: Stand By Assistance Lower Body Dressing with: Stand By Assistance Toilet Hygiene with: Supervision Chair Transfer with: Stand By Assistance Toilet Transfer with: Stand By Assistance Shower Transfer with: Stand By Assistance Kitchen Mobility Tasks with: Stand By Assistance Demonstrate Competence with Education with: Stand By Assistance Progress Toward Goals: Progressing as expected Rehab Potential: Good ASSESSMENT Response to Therapy Interventions: Good Participation in Activities Pt to d/c home with assist from family initially; Family and patient have been educated on AE required and recommendations for home going. Handouts for education have been given with verbal understanding. Pt would benefit from HHT in order to cont. progress and re-assessment in own home. Plan for Next Visit: Continue per POC PRECAUTIONS Fall Risk SDH, check BP with treatment, do not bend over at the waist to lift heavy objects, may bathe and shower, may walk with a walker, no prolonged bedrest > 8 hours, puree diet/ thin liquids SUBJECTIVE Pt verbalizing understanding of d/c recommendations and instructions; reports no concerns at this time FUNCTIONAL STATUS Activities of Daily Living Assist Level Additional Information Feeding Supervision, Additional Information Grooming Additional Information, Minimal Assistance Bathing Upper Body Independent, Additional Information Bathing Lower Body Contact Guard Assistance, Additional Information Dressing Upper Body Independent, Additional Information Dressing Lower Body Minimal Assistance, Additional Information Toileting Supervision, Additional Information Instrumental Activities of Daily Living Assist Level Additional Information Meal/Beverage Prep Total Assistance Cleaning Total Assistance Laundry Moderate Assistance, Additional Information Medication Management with Strategies Total Assistance Mobility Assist Level Additional Information Bed Mobility Supine To Sit: Supervision, Additional Information Sit To Supine: Independent, Additional Information Sit to Stand Stand By Assistance, Additional Information Stand to Sit Stand By Assistance, Additional Information Bed to Chair Stand By Assistance, Contact Guard Assistance, Additional Information Bed To Chair Transfer Type: Stepping Bed To Chair Transfer Equipment: Wheeled Walker, Gait Belt Toilet/Commode Stand By Assistance, Additional Information Shower Contact Guard Assistance Functional Mobility Stand By Assistance, Additional Information Functional Mobility Device: Wheeled Walker CURRENT HOSPITAL COURSE Patient is an 84 year old female presenting from [facility] as a transfer from [place] following fall on 08/01. CT/ XR show acute subdural hematoma involving the lower anterior interhemispheric fissue which measures 8 mm in maximum width. Small volume of an adjacent acute subarachnoid hemorrhage in anterior inferior frontal lobes. Right frontal scalp hematoma/ contusion. Nasal septal fractures with suspected anterior nasal septal hematoma, and upper lip laceration. Admitted to ICU for brain bleed, and neurosurgery recommended nonoperative treatment. Nasal fracture evaluated by plastics who also suggested nonoperative management. Patient now presents below baseline level of function, and can benefit from skilled services to faciltiate return to [place]. Relevant Past Medical History: HTN, DM2, and Hyperlipidemia HOME LIVING Patient L (more content not included)... [facility] THERAPY NT HNO ID: [id number] Author: VIKTORIYA WARNER PT Service: Physical Therapy Author Type: Physical Therapist Type: Therapy (PT/OT/Speech/Resp) Filed: 08/20/2024 12:44 Note Text: Summary: PT discharge note Physical Therapy Intermediate Facility Treatment Summary SERVICE DATE: 08/20/2024 SERVICE TIME: 1125 to 1200 ROOM: [place] [address] PT 6 Clicks Score: 24 DISCHARGE RECOMMENDATIONS Home PT Recommended Discharge Disposition Comments: Home PT pending ability of son to supervise patient initially due to fall risk Anticipated Discharge Needs: Physical Assist at Home, Supervision at Home Recommended Discharge Equipment: To Be Determined (she reports B HRs are being put in for her) GOALS Patient will demonstrate progress with functional mobility to allow safe discharge to home with available support and/or physical assistance. Able to Perform HEP with: Independent: GOAL MET Rolling with: Modified Independent: GOAL MET Transfer Supine to/from Sit with: Modified Independent: GOAL MET Transfer Sit to/from Stand with: Supervision: GOAL MET Ambulate with: Stand By Assistance: GOAL MET Distance: 150 Device: Wheeled Walker Ambulate Up and Down Steps with: Contact Guard Assistance: GOAL MET x 8 Number of Steps: 3 Device: Rail ROM: BLE strength to at least 4/5: GOAL MET Car Transfer with: Contact Guard Assistance: GOAL MET, discussed Goal: Improvement in 2 MWT by at least 40' at FWW : GOAL MET x 150' Rehab Potential: Good Progress Toward Goals: Progressing as expected ASSESSMENT Response to Therapy Interventions: On-Track to Achieve Discharge Goals Discharge to home setting effective tomorrow with patient to have initial 24/7 supervision and assist. Due to multiple losses of balance, recommendation for ongoing assist for ambulation at FWW. Work on using cane or no AD with home health as able, and continue to have CGA for car transfers, shower transfers, and stairs. Recommendation for home health PT ongoing as well as daily HEP participation. Plan for Next Visit: (discharge) PRECAUTIONS Fall Risk SDH, check BP with treatment, do not bend over at the waist to lift heavy objects, may bathe and shower, may walk with a walker, no prolonged bedrest > 8 hours, puree diet/ thin liquids SUBJECTIVE Discharge to home setting effective tomorrow; patient ready to d/c home. Encouraged 24/7 supervision and assist. FUNCTIONAL STATUS Bed Mobility Rolling: Modified Independent Supine To Sit: Modified Independent Sit to Supine: Modified Independent Scooting: Modified Independent Transfers Sit To Stand: Modified Independent from 16 bed height Stand To Sit: Supervision good eccentric control Bed to Chair Supervision Bed To Chair Transfer Type: Stepping Bed To Chair Transfer Equipment: Gait Belt Gait Stand By Assistance, Contact Guard Assistance multiple minor losses of balance noted with CGA/ need for min A to correct rug/ walker placement Gait Device: Wheeled Walker, With Wheelchair Follow Gait Distance (feet): 150-200' distances, over uneven ground, rugs, thresholds, outdoors Stairs Stand By Assistance, Contact Guard Assistance (CGA for descent) Stairs Device: Rail (unilateral) Number of Stairs: 8 CURRENT HOSPITAL COURSE Patient is an 84 year old female presenting from [facility] as a transfer from [place] following fall on 08/01. CT/ XR show acute subdural hematoma involving the lower anterior interhemispheric fissue which measures 8 mm in maximum width. Small volume of an adjacent acute subarachnoid hemorrhage in anterior inferior frontal lobes. Right frontal scalp hematoma/ contusion. Nasal septal fractures with suspected anterior nasal septal hematoma, and upper lip laceration. Admitted to ICU for brain bleed, and neurosurgery recommended nonoperative treatment. Nasal fracture evaluated by plastics who also suggested nonoperative management. Patient now presents below baseline level of function, and can benefit from skilled services to faciltiate return to [facility]. Relevant Past Medical History: HTN, DM2, and Hyperlipidemia HOME LIVING Patient Lives With: Family (son lives in basement apartment) Assistance Available: Part-Time (son works full time paramedic in [place]) Entry To Home: Stairs, With Rail Number Of Stairs Into Home: 3 Number Of Stairs To Bed/Bath: 0 Tub/Shower Type: walk in shower Laundry: son can assist with Equipment Owned: Walker- Wheeled, Wheelchair- Manual, Pulse Ox, BP Monitor, Cane, Lift Chair (sleeps in regular flat bed) PRIOR FUNCTIONAL LEVEL Within Functional Limits, History of Falls, Required Assistance Assistance Required With: Meals, Transportation Patient was IND prior to falling. Ambulated at home with a wheeled-walker but is not driving. Patient reports to PT that she (more content not included)... [facility] THERAPY NT HNO ID: [id number] Author: VIKTORIYA WARNER, PT Service: Physical Therapy Author Type: Physical Therapist Type: Therapy (PT/OT/Speech/Resp) Filed: 08/20/2024 11:22 Note Text: Summary: PT discharge recommendations PT Discharge Instructions The PT team at [facility] has this list of discharge instructions specific to your home going needs. Your anticipated discharge date is 08/21/24. Please share these discharge instructions with family as well as any care providers coming to your home to assist with the continuity of your care. Weight Bearing precautions: No restriction Precautions: Fall risk, monitor blood pressure; do not bend over at the waist/ lift heavy objects Recommended equipment for home: Wheeled walker and Gait belt Additional instructions: 08/10 supervision and assist advised ongoing., Use the walker at all times when walking and transferring, Stay within the walker at all times, Push up from the arm rests when standing from chair, Reach back for the arm rests when sitting, Have help when completing the stairs as instructed, When managing stairs, lead up with the stronger leg, down with the weaker leg - Up with the good, down with the bad, Have someone nearby when walking, Complete home exercise as instructed., Walk frequently throughout the day. A good rule of thumb is to walk once every hour, and Home PT advised Thank you for entrusting your care to us. If you have questions regarding PT please contact the PT team at [phone]. Viktoriya Warner PT Gauri Hernandez PT Anay Joyce PASTE UP ARTIST APPRENTICE Manjinder Lees PASTE UP ARTIST APPRENTICE [facility] THERAPY NT HNO ID: [id number] Author: PAULETTE BUSBY OTR/L Service: Occupational Therapy Author Type: Occupational Therapist Type: Therapy (PT/OT/Speech/Resp) Filed: 08/20/2024 10:29 Note Text: Summary: OT DC instructions OT Discharge Instructions The OT team at [facility] has this list of discharge instructions specific to your home going needs. Your anticipated discharge date is 08/20/24 from Occupational therapy. Please share these discharge instructions with family as well as any care providers coming to your home to assist with the continuity of your care. Weight Bearing precautions: No restriction Precautions: Fall risk; monitor blood pressure; do not bed over at the waist / lift heavy objects Recommended equipment for home: 3in1 commode/safety frame Additional instructions: 24 hour assistance is recommended, Have someone stand next to you when standing during toileting, dressing and grooming tasks, Do not attempt to get in/out of the tub until instructed by home therapist, Have assist with meals, housework and laundry, Continue to complete upper body exercises for strengthening, and Follow up with Home Care OT as instructed Thank you for entrusting your care to us. If you have questions regarding OT please contact the OT team at [phone]. Magali Bean OT Paulette Busby OT Fifi Leung OT Nicolasa ELIZALDE [facility] CASE MANAGEMon 08-19-2024 CASE MANAGEM HNO ID: [id number] Author: DENISE AVILEZ, RN Service: Care Management Author Type: Registered Nurse Type: Care Mgt Progress Note Filed: 08/19/2024 16:23 Note Text: CASE MANAGEMENT PROGRESS NOTE Update from below- Dtr, Shira called back at 422pm; discussed as below and dtr confirms plan as noted-she will sampler pickup pt on Sat08/21/24 at 130pm for dc home. She will take pt to her PCP appt on 08/26/24 and HHC visit on Saturday. SERVICE DATE: 08/19/2024 SERVICE TIME: 405pm Met pt to confirm dc date for 08/21/24 and of [facility] to start service on Saturday08/24/24. Pt confirms this to be true and that her dtr made PCP appt for her. Pt has ride home with Shira mas at 130pm. Called son (saw his name listed first) and he confirms aware of dc date/plan and that pt has PCP visit set up with Dr. Lang on 08/26/24. He also confirms aware of home care coming on Saturday08/24/24. Did call Shira mas also- no answer- did not leave message. Will follow up tomorrow to confirm plan as noted. SIGNATURE: Denise Avilez RN PATIENT NAME: Tamica Anderson DATE: August 19, 2024 TIME: 4:05 PM PAGER/CONTACT #: [facility] THERAPY NTon 08-19-2024 THERAPY NT HNO ID: [id number] Author: MAGALI BEAN OTR/Catherine Service: Occupational Therapy Author Type: Occupational Therapist Type: Therapy (PT/OT/Speech/Resp) Filed: 08/19/2024 11:51 Note Text: Occupational Therapy Intermediate Facility Treatment Summary SERVICE DATE: 08/19/2024 SERVICE TIME: 1104 to 1134 ROOM: [place] [address] OT 6 Clicks Score: 21 DISCHARGE RECOMMENDATIONS Home OT Anticipated Discharge Needs: Physical Assist at Home, Supervision at Home Recommended Discharge Equipment: Commode-3 in 1 GOALS Patient will demonstrate progress to optimize self-care activities, cognitive and/or coping to maximize function upon discharge. Upper Body Bathing with: Modified Independent Upper Body Dressing with: Independent Lower Body Bathing with: Stand By Assistance Lower Body Dressing with: Stand By Assistance Toilet Hygiene with: Supervision Chair Transfer with: Stand By Assistance Toilet Transfer with: Stand By Assistance Shower Transfer with: Stand By Assistance Kitchen Mobility Tasks with: Stand By Assistance Demonstrate Competence with Education with: Stand By Assistance Progress Toward Goals: Progressing as expected Rehab Potential: Good ASSESSMENT Response to Therapy Interventions: Good Participation in Activities, Requires Additional Time to Complete Activities Patient able to complete home management tasks (making bed) with close supervision. Patient not using her walker when making the bed and she is noted to be ambulating around the bed and she is holding onto the bed when ambulating. Patient is doing well and is scheduled for dishcarge on 08/21 Plan for Next Visit: Continue per POC PRECAUTIONS Fall Risk SDH, check BP with treatment, do not bend over at the waist to lift heavy objects, may bathe and shower, may walk with a walker, no prolonged bedrest > 8 hours, puree diet/ thin liquids SUBJECTIVE Patient agreeable to OT tx FUNCTIONAL STATUS Activities of Daily Living Assist Level Additional Information Feeding Supervision, Additional Information Grooming Additional Information, Minimal Assistance Bathing Upper Body Independent, Additional Information Bathing Lower Body Contact Guard Assistance, Additional Information Dressing Upper Body Independent, Additional Information Dressing Lower Body Minimal Assistance, Additional Information Toileting Supervision, Additional Information Instrumental Activities of Daily Living Assist Level Additional Information Meal/Beverage Prep Total Assistance Cleaning Total Assistance Laundry Moderate Assistance, Additional Information to make bed this date. Patient is not able to put on fitted sheet at this time. She reports that her grandson puts on the fitted sheet for her. Patient was able to put on sheet and blanket and put pillow cases on pillows. Medication Management with Strategies Total Assistance Mobility Assist Level Additional Information Bed Mobility Supine To Sit: Supervision, Additional Information Sit To Supine: Independent, Additional Information to get back in bed Sit to Stand Stand By Assistance, Additional Information to stand from various ADL surfaces. Stand to Sit Stand By Assistance, Additional Information to sit on various ADL surfaces Bed to Chair Stand By Assistance, Contact Guard Assistance, Additional Information Bed To Chair Transfer Type: Stepping Bed To Chair Transfer Equipment: Wheeled Walker, Gait Belt Toilet/Commode Stand By Assistance, Additional Information Shower Contact Guard Assistance Functional Mobility Stand By Assistance, Additional Information Functional Mobility Device: Wheeled Walker to ambulate with RW greater than household distance CURRENT HOSPITAL COURSE Patient is an 84 year old female presenting from [facility] as a transfer from [place] following fall on 08/01. CT/ XR show acute subdural hematoma involving the lower anterior interhemispheric fissue which measures 8 mm in maximum width. Small volume of an adjacent acute subarachnoid hemorrhage in anterior inferior frontal lobes. Right frontal scalp hematoma/ contusion. Nasal septal fractures with suspected anterior nasal septal hematoma, and upper lip laceration. Admitted to ICU for brain bleed, and neurosurgery recommended nonoperative treatment. Nasal fracture evaluated by plastics who also suggested nonoperative management. Patient now presents below baseline level of function, and can benefit from skilled services to faciltiate return to [facility]. Relevant Past Medical History: HTN, DM2, and Hyperlipidemia HOME LIVING Patient Lives With: Family (son lives in basement apartment) Assistance Available: Part-Time (son works full time paramedic in [place]) Entry To Home: Stairs, With Rail Number Of Stairs Into Home: 3 Number Of Stairs To Bed/Bath: 0 Tub/Shower Type: walk in shower Laundry: son can assist with Equipment Owned: Walker- Wheeled, Wheelchair- Manual, Pulse Ox, BP Monitor, Cane, Lift Chair (sle (more content not included)... [facility] THERAPY NT HNO ID: [id number] Author: VIKTORIYA WARNER, PT Service: Physical Therapy Author Type: Physical Therapist Type: Therapy (PT/OT/Speech/Resp) Filed: 08/19/2024 11:17 Note Text: Physical Therapy Intermediate Facility Treatment Summary SERVICE DATE: 08/19/2024 SERVICE TIME: 1036 to 1104 ROOM: [place] [address] PT 6 Clicks Score: 23 DISCHARGE RECOMMENDATIONS Home PT Recommended Discharge Disposition Comments: Home PT pending ability of son to supervise patient initially due to fall risk Anticipated Discharge Needs: Family Training, Physical Assist at Home, Supervision at Home Recommended Discharge Equipment: To Be Determined (she reports B HRs are being put in for her) GOALS Patient will demonstrate progress with functional mobility to allow safe discharge to home with available support and/or physical assistance. Able to Perform HEP with: Independent Rolling with: Modified Independent Transfer Supine to/from Sit with: Modified Independent Transfer Sit to/from Stand with: Supervision Ambulate with: Stand By Assistance Distance: 150 Device: Wheeled Walker Ambulate Up and Down Steps with: Contact Guard Assistance Number of Steps: 3 Device: Rail ROM: BLE strength to at least 4/5 Car Transfer with: Contact Guard Assistance Goal: Improvement in 2 MWT by at least 40' at FWW Rehab Potential: Good Progress Toward Goals: Progressing as expected ASSESSMENT Response to Therapy Interventions: On-Track to Achieve Discharge Goals Patient seen this date, ambulatory with FWW with supervision in halls, ambulatory for short distances without AD, with some furniture walking noted. Agreeable to NuStep participation, with patient demonstrating overall improvement in LE strength, some continued mild heel cord tightness. Would benefit from high level balance work as it seems patient would leave the walker behind at home (she was talking about gardening this date and falls at home). D/c set for 08/21. Plan for Next Visit: (cane?) PRECAUTIONS Bed/Chair Alarm, Fall Risk SDH, check BP with treatment, do not bend over at the waist to lift heavy objects, may bathe and shower, may walk with a walker, no prolonged bedrest > 8 hours, puree diet/ thin liquids SUBJECTIVE I think I am ready to go home. Just don't make me close my eyes or I get sick. FUNCTIONAL STATUS Bed Mobility Rolling: Modified Independent Supine To Sit: Modified Independent Sit to Supine: Modified Independent Scooting: Modified Independent Transfers Sit To Stand: Supervision from 16 bed height Stand To Sit: Supervision improved eccentric control Bed to Chair Supervision Bed To Chair Transfer Type: Stepping Bed To Chair Transfer Equipment: Gait Belt Gait Stand By Assistance, Contact Guard Assistance Improved stepping with walker, some furniture walking without walker. Would like to trial a cane for ambulation Gait Device: Wheeled Walker, None Gait Distance (feet): 5-10' distances without walker, 150+' distances with walker Stairs Stand By Assistance, Contact Guard Assistance (CGA for descent) Stairs Device: Rail (unilateral) Number of Stairs: 8 CURRENT HOSPITAL COURSE Patient is an 84 year old female presenting from [facility] as a transfer from [place] following fall on 08/01. CT/ XR show acute subdural hematoma involving the lower anterior interhemispheric fissue which measures 8 mm in maximum width. Small volume of an adjacent acute subarachnoid hemorrhage in anterior inferior frontal lobes. Right frontal scalp hematoma/ contusion. Nasal septal fractures with suspected anterior nasal septal hematoma, and upper lip laceration. Admitted to ICU for brain bleed, and neurosurgery recommended nonoperative treatment. Nasal fracture evaluated by plastics who also suggested nonoperative management. Patient now presents below baseline level of function, and can benefit from skilled services to faciltiate return to [facility]. Relevant Past Medical History: HTN, DM2, and Hyperlipidemia HOME LIVING Patient Lives With: Family (son lives in basement apartment) Assistance Available: Part-Time (son works full time paramedic in [employer]) Entry To Home: Stairs, With Rail Number Of Stairs Into Home: 3 Number Of Stairs To Bed/Bath: 0 Tub/Shower Type: walk in shower Laundry: son can assist with Equipment Owned: Walker- Wheeled, Wheelchair- Manual, Pulse Ox, BP Monitor, Cane, Lift Chair (sleeps in regular flat bed) PRIOR FUNCTIONAL LEVEL Within Functional Limits, History of Falls, Required Assistance Assistance Required With: Meals, Transportation Patient was IND prior to falling. Ambulated at home with a wheeled-walker but is not driving. Patient reports to PT that she cooks, to OT she said her son cooks. she cleans, but son has taken over the majority of the IADLs. History of multiple falls with injuries. THERAPY DIAGNOSIS Reduced mobility-other, Decreased activities of daily living (ADL), Muscle Weakness (g (more content not included)... [facility] THERAPY NTon 08-18-2024 THERAPY NT HNO ID: [id number] Author: VICK MARTIN PTA Service: Physical Therapy Author Type: As[employer]er [employer] Backhoe Type: Therapy (PT/OT/Speech/Resp) Filed: 08/18/2024 15:29 Note Text: Attestation signed by Sanna Hernandez PT DPT at 08/18/2024 4:02 PM I reviewed and agree with the documentation corresponding to this therapy visit. SIGNATURE: Sanna Hernandez PT DPT DATE: August 18, 2024 TIME: 4:02 PM Physical Therapy Intermediate Facility Treatment Summary SERVICE DATE: 08/18/2024 SERVICE TIME: 1447 to 1520 ROOM: [place] [address] PT 6 Clicks Score: 23 DISCHARGE RECOMMENDATIONS Home PT Recommended Discharge Disposition Comments: Home PT pending ability of son to supervise patient initially due to fall risk Anticipated Discharge Needs: Family Training, Physical Assist at Home, Supervision at Home Recommended Discharge Equipment: To Be Determined (she reports B HRs are being put in for her) GOALS Patient will demonstrate progress with functional mobility to allow safe discharge to home with available support and/or physical assistance. Able to Perform HEP with: Independent Rolling with: Modified Independent Transfer Supine to/from Sit with: Modified Independent Transfer Sit to/from Stand with: Supervision Ambulate with: Stand By Assistance Distance: 150 Device: Wheeled Walker Ambulate Up and Down Steps with: Contact Guard Assistance Number of Steps: 3 Device: Rail ROM: BLE strength to at least 4/5 Car Transfer with: Contact Guard Assistance Goal: Improvement in 2 MWT by at least 40' at FWW Rehab Potential: Good Progress Toward Goals: Progressing as expected ASSESSMENT Response to Therapy Interventions: Good Participation in Activities Patient completes seated resistive exercises this session with good tolerance and minimal fatigue. Plan for Next Visit: Continue per POC PRECAUTIONS Bed/Chair Alarm, Fall Risk SDH, check BP with treatment, do not bend over at the waist to lift heavy objects, may bathe and shower, may walk with a walker, no prolonged bedrest > 8 hours, puree diet/ thin liquids SUBJECTIVE Pt reports that she got a shower and is feeling better FUNCTIONAL STATUS Bed Mobility Rolling: Modified Independent Supine To Sit: Modified Independent Sit to Supine: Modified Independent Scooting: Modified Independent Transfers Sit To Stand: Supervision Stand To Sit: Stand By Assistance Bed to Chair Stand By Assistance Bed To Chair Transfer Type: Stepping Bed To Chair Transfer Equipment: Wheeled Walker Gait Stand By Assistance Gait Device: Wheeled Walker General Deviations/Observation s: Flexed trunk posture, Shuffling Gait Gait Distance (feet): 115 x 2 Stairs Stand By Assistance, Contact Guard Assistance (CGA for descent) Stairs Device: Rail (unilateral) Number of Stairs: 8 CURRENT HOSPITAL COURSE Patient is an 84 year old female presenting from [facility] as a transfer from [place] following fall on 08/01. CT/ XR show acute subdural hematoma involving the lower anterior interhemispheric fissue which measures 8 mm in maximum width. Small volume of an adjacent acute subarachnoid hemorrhage in anterior inferior frontal lobes. Right frontal scalp hematoma/ contusion. Nasal septal fractures with suspected anterior nasal septal hematoma, and upper lip laceration. Admitted to ICU for brain bleed, and neurosurgery recommended nonoperative treatment. Nasal fracture evaluated by plastics who also suggested nonoperative management. Patient now presents below baseline level of function, and can benefit from skilled services to faciltiate return to [facility]. Relevant Past Medical History: HTN, DM2, and Hyperlipidemia HOME LIVING Patient Lives With: Family (son lives in basement apartment) Assistance Available: Part-Time (son works full time paramedic in [place]) Entry To Home: Stairs, With Rail Number Of Stairs Into Home: 3 Number Of Stairs To Bed/Bath: 0 Tub/Shower Type: walk in shower Laundry: son can assist with Equipment Owned: Walker- Wheeled, Wheelchair- Manual, Pulse Ox, BP Monitor, Cane, Lift Chair (sleeps in regular flat bed) PRIOR FUNCTIONAL LEVEL Within Functional Limits, History of Falls, Required Assistance Assistance Required With: Meals, Transportation Patient was IND prior to falling. Ambulated at home with a wheeled-walker but is not driving. Patient reports to PT that she cooks, to OT she said her son cooks. she cleans, but son has taken over the majority of the IADLs. History of multiple falls with injuries. THERAPY DIAGNOSIS Reduced mobility-other, Decreased activities of daily living (ADL), Muscle Weakness (generalized) TREATMENT INTERVENTIONS Therapeutic Exercise (09769), Gait Training (77627) Timed Code Treatment (minutes): 33 Skilled Treatment Time (more content not included)... [facility] THERAPY NT HNO ID: [id number] Author: MAGALI BEAN OTR/L Service: Occupational Therapy Author Type: Occupational Therapist Type: Therapy (PT/OT/Speech/Resp) Filed: 08/18/2024 15:06 Note Text: Occupational Therapy Intermediate Facility Treatment Summary SERVICE DATE: 08/18/2024 SERVICE TIME: 1332 to 1420 ROOM: [place] [address] OT 6 Clicks Score: 21 DISCHARGE RECOMMENDATIONS Home OT Anticipated Discharge Needs: Family Training, Physical Assist at Home, Supervision at Home Recommended Discharge Equipment: Commode-3 in 1 GOALS Patient will demonstrate progress to optimize self-care activities, cognitive and/or coping to maximize function upon discharge. Upper Body Bathing with: Modified Independent Upper Body Dressing with: Independent Lower Body Bathing with: Stand By Assistance Lower Body Dressing with: Stand By Assistance Toilet Hygiene with: Supervision Chair Transfer with: Stand By Assistance Toilet Transfer with: Stand By Assistance Shower Transfer with: Stand By Assistance Kitchen Mobility Tasks with: Stand By Assistance Demonstrate Competence with Education with: Stand By Assistance Progress Toward Goals: Progressing as expected Rehab Potential: Good ASSESSMENT Response to Therapy Interventions: Good Participation in Activities, Requires Additional Time to Complete Activities Patient completed a shower this date and is as noted above. She is doing well and was able to complete bathing activity mostly at a Supervision level. Patient will benefit from assist for ADLS at home due to her physical limitations (needing assist to wash hair). Will continue OT tx to increase her LOF and safety. Plan for Next Visit: Continue per POC PRECAUTIONS Bed/Chair Alarm, Fall Risk SDH, check BP with treatment, do not bend over at the waist to lift heavy objects, may bathe and shower, may walk with a walker, no prolonged bedrest > 8 hours, puree diet/ thin liquids SUBJECTIVE Patient agreeable to shower this date FUNCTIONAL STATUS Activities of Daily Living Assist Level Additional Information Feeding Supervision, Additional Information Grooming Additional Information, Minimal Assistance in shower to wash face and needing assistance to wash the back of her hair Bathing Upper Body Independent, Additional Information seated on shower chair Bathing Lower Body Contact Guard Assistance, Additional Information to hang gliding instructor shower and wash BLE and redd area Dressing Upper Body Independent, Additional Information to doff and don overhead shirt Dressing Lower Body Minimal Assistance, Additional Information to initiate donning pants and undergarments over her feet Toileting Supervision, Additional Information to get on and off BSC over toilet Instrumental Activities of Daily Living Assist Level Additional Information Meal/Beverage Prep Total Assistance Cleaning Total Assistance Laundry Total Assistance Medication Management with Strategies Total Assistance Mobility Assist Level Additional Information Bed Mobility Supine To Sit: Supervision, Additional Information to get up to right side of bed Sit To Supine: Supervision, Additional Information to get back in bed Sit to Stand Stand By Assistance, Additional Information to come to stand from various ADL surfaces Stand to Sit Stand By Assistance, Additional Information to sit on various ADL surfaces Bed to Chair Stand By Assistance, Contact Guard Assistance, Additional Information Bed To Chair Transfer Type: Stepping Bed To Chair Transfer Equipment: Wheeled Walker, Gait Belt Toilet/Commode Stand By Assistance, Additional Information to sit on BSC over toilet Shower Contact Guard Assistance Functional Mobility Stand By Assistance, Additional Information Functional Mobility Device: Wheeled Walker to ambulate with RW greater than household distance CURRENT HOSPITAL COURSE Patient is an 84 year old female presenting from [facility] as a transfer from [place] following fall on 08/01. CT/ XR show acute subdural hematoma involving the lower anterior interhemispheric fissue which measures 8 mm in maximum width. Small volume of an adjacent acute subarachnoid hemorrhage in anterior inferior frontal lobes. Right frontal scalp hematoma/ contusion. Nasal septal fractures with suspected anterior nasal septal hematoma, and upper lip laceration. Admitted to ICU for brain bleed, and neurosurgery recommended nonoperative treatment. Nasal fracture evaluated by plastics who also suggested nonoperative management. Patient now presents below baseline level of function, and can benefit from skilled services to faciltiate return to [facility]. Relevant Past Medical History: HTN, DM2, and Hyperlipidemia HOME LIVING Patient Lives With: Family (son lives in basement apartment) Assistance Available: Part-Time (son works full time paramedic in [place]) Entry To Home: Stairs, With Rail Number Of Stairs Into Home: 3 Number Of Stairs To Bed/Bath: 0 Tu (more content not included)... [facility] THERAPY NT HNO ID: [id number] Author: VIKTORIYA WARNER PT Service: Physical Therapy Author Type: Assembler [employer]dra[employer] Backhoe Type: Therapy (PT/OT/Speech/Resp) Filed: 08/18/2024 15:17 Note Text: Attestation signed by Viktoriya Warner PT at 08/18/2024 3:17 PM I reviewed and agree with the documentation corresponding to this therapy visit. SIGNATURE: Viktoriya Warner PT DATE: August 18, 2024 TIME: 3:17 PM Summary: PT Insurance Update Physical Therapy Intermediate Facility Treatment Summary SERVICE DATE: 08/18/2024 SERVICE TIME: 1010 to 1051 ROOM: [place] [address] PT 6 Clicks Score: 23 DISCHARGE RECOMMENDATIONS Home PT Recommended Discharge Disposition Comments: Home PT pending ability of son to supervise patient initially due to fall risk Anticipated Discharge Needs: Family Training, Physical Assist at Home, Supervision at Home Recommended Discharge Equipment: To Be Determined (she reports B HRs are being put in for her) GOALS Patient will demonstrate progress with functional mobility to allow safe discharge to home with available support and/or physical assistance. Able to Perform HEP with: Independent Rolling with: Modified Independent Transfer Supine to/from Sit with: Modified Independent Transfer Sit to/from Stand with: Supervision Ambulate with: Stand By Assistance Distance: 150 Device: Wheeled Walker Ambulate Up and Down Steps with: Contact Guard Assistance Number of Steps: 3 Device: Rail ROM: BLE strength to at least 4/5 Car Transfer with: Contact Guard Assistance Goal: Improvement in 2 MWT by at least 40' at FWW Rehab Potential: Good Progress Toward Goals: Progressing as expected ASSESSMENT Response to Therapy Interventions: Good Participation in Activities Patient now at a 6 clicks score of 23 as she is MOD I for bedmobility and stand by assist/ supervision for the rest of her mobility. Patient has displayed improvements with her overall and endurance and strength however continue to require cues for safety throughout sessions and struggles with balance without UE support. Patient's anticipated dischange date is 08/21 and she is reporting that she would like to go home. Plan for Next Visit: Continue per POC PRECAUTIONS Bed/Chair Alarm, Fall Risk SDH, check BP with treatment, do not bend over at the waist to lift heavy objects, may bathe and shower, may walk with a walker, no prolonged bedrest > 8 hours, puree diet/ thin liquids SUBJECTIVE I have to give you a hard time FUNCTIONAL STATUS Bed Mobility Rolling: Modified Independent Supine To Sit: Modified Independent Sit to Supine: Modified Independent Scooting: Modified Independent Transfers Sit To Stand: Supervision Stand To Sit: Stand By Assistance Bed to Chair Stand By Assistance Bed To Chair Transfer Type: Stepping Bed To Chair Transfer Equipment: Wheeled Walker Gait Stand By Assistance Gait Device: Wheeled Walker General Deviations/Observation s: Flexed trunk posture, Shuffling Gait Gait Distance (feet): 115, 150 Stairs Stand By Assistance, Contact Guard Assistance (CGA for descent) Stairs Device: Rail (unilateral) Number of Stairs: 8 CURRENT HOSPITAL COURSE Patient is an 84 year old female presenting from [facility] as a transfer from [place] following fall on 08/01. CT/ XR show acute subdural hematoma involving the lower anterior interhemispheric fissue which measures 8 mm in maximum width. Small volume of an adjacent acute subarachnoid hemorrhage in anterior inferior frontal lobes. Right frontal scalp hematoma/ contusion. Nasal septal fractures with suspected anterior nasal septal hematoma, and upper lip laceration. Admitted to ICU for brain bleed, and neurosurgery recommended nonoperative treatment. Nasal fracture evaluated by plastics who also suggested nonoperative management. Patient now presents below baseline level of function, and can benefit from skilled services to faciltiate return to [facility]. Relevant Past Medical History: HTN, DM2, and Hyperlipidemia HOME LIVING Patient Lives With: Family (son lives in basement apartment) Assistance Available: Part-Time (son works full time paramedic in [place]) Entry To Home: Stairs, With Rail Number Of Stairs Into Home: 3 Number Of Stairs To Bed/Bath: 0 Tub/Shower Type: walk in shower Laundry: son can assist with Equipment Owned: Walker- Wheeled, Wheelchair- Manual, Pulse Ox, BP Monitor, Cane, Lift Chair (sleeps in regular flat bed) PRIOR FUNCTIONAL LEVEL Within Functional Limits, History of Falls, Required Assistance Assistance Required With: Meals, Transportation Patient was IND prior to falling. Ambulate (more content not included)... [facility] NURSING PROGon 08-17-2024 NURSING PROG HNO ID: [id number] Author: BRIAN JEONG LPN Service: Nursing Author Type: LICENSED NURSE Type: Nursing Progress Note Filed: 08/17/2024 11:42 Note Text: PASTE UP ARTIST APPRENTICE reported patient vomited during therapy session. Patient lying in bed in no apparent distress. Denies further nausea. States therapist had her close eyes and turn head which caused the emesis, I throw up easily. VS WNL. [facility] THERAPY NTon 08-17-2024 THERAPY NT HNO ID: [id number] Author: ANAY ALVAREZ PT Service: Physical Therapy Author Type: Assembler Hydraulic Backhoe Type: Therapy (PT/OT/Speech/Resp) Filed: 08/18/2024 08:01 Note Text: Attestation signed by Anay Alvarez PT at 08/18/2024 8:01 AM I reviewed and agree with the documentation corresponding to this therapy visit. SIGNATURE: Anay Alvarez PT DATE: August 18, 2024 TIME: 8:01 AM Physical Therapy Intermediate Facility Treatment Summary SERVICE DATE: 08/17/2024 SERVICE TIME: 1431 to 1505 ROOM: [place] [address] PT 6 Clicks Score: 23 DISCHARGE RECOMMENDATIONS Home PT Recommended Discharge Disposition Comments: Home PT pending ability of son to supervise patient initially due to fall risk Anticipated Discharge Needs: Family Training, Physical Assist at Home, Supervision at Home Recommended Discharge Equipment: To Be Determined (she reports B HRs are being put in for her) GOALS Patient will demonstrate progress with functional mobility to allow safe discharge to home with available support and/or physical assistance. Able to Perform HEP with: Independent Rolling with: Modified Independent Transfer Supine to/from Sit with: Modified Independent Transfer Sit to/from Stand with: Supervision Ambulate with: Stand By Assistance Distance: 150 Device: Wheeled Walker Ambulate Up and Down Steps with: Contact Guard Assistance Number of Steps: 3 Device: Rail ROM: BLE strength to at least 4/5 Car Transfer with: Contact Guard Assistance Goal: Improvement in 2 MWT by at least 40' at FWW Rehab Potential: Good Progress Toward Goals: Progressing as expected ASSESSMENT Response to Therapy Interventions: Good Participation in Activities Patient completes seated resitive exercises and rides nustep this session without any issues displaying good tolerance and technique throughout. Plan for Next Visit: Continue per POC PRECAUTIONS Bed/Chair Alarm, Fall Risk SDH, check BP with treatment, do not bend over at the waist to lift heavy objects, may bathe and shower, may walk with a walker, no prolonged bedrest > 8 hours, puree diet/ thin liquids SUBJECTIVE I was gonna ask for a tylenol but didn't FUNCTIONAL STATUS Bed Mobility Rolling: Modified Independent Supine To Sit: Modified Independent Sit to Supine: Modified Independent Scooting: Modified Independent Transfers Sit To Stand: Supervision Stand To Sit: Supervision Bed to Chair Stand By Assistance Bed To Chair Transfer Type: Stepping Bed To Chair Transfer Equipment: Wheeled Walker Gait Supervision Gait Device: Wheeled Walker Gait Distance (feet): 115 x 2 Stairs Contact Guard Assistance Stairs Device: Rail (unilateral) Number of Stairs: 4 CURRENT HOSPITAL COURSE Patient is an 84 year old female presenting from [facility] as a transfer from [place] following fall on 08/01. CT/ XR show acute subdural hematoma involving the lower anterior interhemispheric fissue which measures 8 mm in maximum width. Small volume of an adjacent acute subarachnoid hemorrhage in anterior inferior frontal lobes. Right frontal scalp hematoma/ contusion. Nasal septal fractures with suspected anterior nasal septal hematoma, and upper lip laceration. Admitted to ICU for brain bleed, and neurosurgery recommended nonoperative treatment. Nasal fracture evaluated by plastics who also suggested nonoperative management. Patient now presents below baseline level of function, and can benefit from skilled services to faciltiate return to [facility]. Relevant Past Medical History: HTN, DM2, and Hyperlipidemia HOME LIVING Patient Lives With: Family (son lives in basement apartment) Assistance Available: Part-Time (son works full time paramedic in [place]) Entry To Home: Stairs, With Rail Number Of Stairs Into Home: 3 Number Of Stairs To Bed/Bath: 0 Tub/Shower Type: walk in shower Laundry: son can assist with Equipment Owned: Walker- Wheeled, Wheelchair- Manual, Pulse Ox, BP Monitor, Cane, Lift Chair (sleeps in regular flat bed) PRIOR FUNCTIONAL LEVEL Within Functional Limits, History of Falls, Required Assistance Assistance Required With: Meals, Transportation Patient was IND prior to falling. Ambulated at home with a wheeled-walker but is not driving. Patient reports to PT that she cooks, to OT she said her son cooks. she cleans, but son has taken over the majority of the IADLs. History of multiple falls with injuries. THERAPY DIAGNOSIS Reduced mobility-other, Decreased activities of daily living (ADL), Muscle Weakness (generalized) TREATMENT INTERVENTIONS Therapeutic Exercise (29151), Gait Training (74690) Timed Code Treatment (minutes): 34 Skilled Treatment Time (minutes): 34 EXERCISE Exercises Exercise: Nustep seat 7 lvl 4 8 minutes (LE only), seated may (more content not included)... [facility] THERAPY NT HNO ID: [id number] Author: ANAY ALVAREZ, PT Service: Physical Therapy Author Type: Assembler Hydraulic Backhoe Type: Therapy (PT/OT/Speech/Resp) Filed: 08/18/2024 08:00 Note Text: Attestation signed by Anay Alvarez PT at 08/18/2024 8:00 AM I reviewed and agree with the documentation corresponding to this therapy visit. SIGNATURE: Anay Alvarez, PT DATE: August 18, 2024 TIME: 8:00 AM Physical Therapy Intermediate Facility Treatment Summary SERVICE DATE: 08/17/2024 SERVICE TIME: 1038 to 1116 ROOM: [place] [address] PT 6 Clicks Score: 23 DISCHARGE RECOMMENDATIONS Home PT Recommended Discharge Disposition Comments: Home PT pending ability of son to supervise patient initially due to fall risk Anticipated Discharge Needs: Family Training, Physical Assist at Home, Supervision at Home Recommended Discharge Equipment: To Be Determined (she reports B HRs are being put in for her) GOALS Patient will demonstrate progress with functional mobility to allow safe discharge to home with available support and/or physical assistance. Able to Perform HEP with: Independent Rolling with: Modified Independent Transfer Supine to/from Sit with: Modified Independent Transfer Sit to/from Stand with: Supervision Ambulate with: Stand By Assistance Distance: 150 Device: Wheeled Walker Ambulate Up and Down Steps with: Contact Guard Assistance Number of Steps: 3 Device: Rail ROM: BLE strength to at least 4/5 Car Transfer with: Contact Guard Assistance Goal: Improvement in 2 MWT by at least 40' at FWW Rehab Potential: Good Progress Toward Goals: Progressing as expected ASSESSMENT Response to Therapy Interventions: Good Participation in Activities Patient able and willing to ambulate down to therapy room and complete steps with unilateral handrail while requiring CGA from PASTE UP ARTIST APPRENTICE for safety. Patient also completes serval standing balance and LE exercises this sesion with good tolerance however after turning her head when reaching for cones patient becomes nausous and vomits, patient reports that she vomits easily and that this has happened before. after one minutes patient reports that she is ok and is able to ambulate back to her room without any issues. Patient assisted back to bed reporting that she is ok. Nurse notified of incident and states that she will check on patient. Plan for Next Visit: Continue per POC PRECAUTIONS Bed/Chair Alarm, Fall Risk SDH, check BP with treatment, do not bend over at the waist to lift heavy objects, may bathe and shower, may walk with a walker, no prolonged bedrest > 8 hours, puree diet/ thin liquids SUBJECTIVE I throw up pretty easy FUNCTIONAL STATUS Bed Mobility Rolling: Modified Independent Supine To Sit: Modified Independent Sit to Supine: Modified Independent Scooting: Modified Independent Transfers Sit To Stand: Supervision Stand To Sit: Supervision Bed to Chair Stand By Assistance Bed To Chair Transfer Type: Stepping Bed To Chair Transfer Equipment: Wheeled Walker Gait Supervision Gait Device: Wheeled Walker General Deviations/Observation s: Flexed trunk posture, Shuffling Gait Gait Distance (feet): 115 x 2 Stairs Contact Guard Assistance Stairs Device: Rail (unilateral) Number of Stairs: 4 CURRENT HOSPITAL COURSE Patient is an 84 year old female presenting from [facility] as a transfer from [place] following fall on 08/01. CT/ XR show acute subdural hematoma involving the lower anterior interhemispheric fissue which measures 8 mm in maximum width. Small volume of an adjacent acute subarachnoid hemorrhage in anterior inferior frontal lobes. Right frontal scalp hematoma/ contusion. Nasal septal fractures with suspected anterior nasal septal hematoma, and upper lip laceration. Admitted to ICU for brain bleed, and neurosurgery recommended nonoperative treatment. Nasal fracture evaluated by plastics who also suggested nonoperative management. Patient now presents below baseline level of function, and can benefit from skilled services to faciltiate return to [facility]. Relevant Past Medical History: HTN, DM2, and Hyperlipidemia HOME LIVING Patient Lives With: Family (son lives in basement apartment) Assistance Available: Part-Time (son works full time paramedic in [place]) Entry To Home: Stairs, With Rail Number Of Stairs Into Home: 3 Number Of Stairs To Bed/Bath: 0 Tub/Shower Type: walk in shower Laundry: son can assist with Equipment Owned: Walker- Wheeled, Wheelchair- Manual, Pulse Ox, BP Monitor, Cane, Lift Chair (sleeps in regular flat bed) PRIOR FUNCTIONAL LEVEL Within Functional Limits, History of Falls, Required Assistance Assistance Required With: Meals, Transportation Patient was IND prior to falling. Ambulated at home with a wheeled-walker b (more content not included)... [facility] THERAPY NT HNO ID: [id number] Author: FIFI LEUNG, OT/L Service: ? Author Type: Occupational Therapist Type: Therapy (PT/OT/Speech/Resp) Filed: 08/17/2024 10:32 Note Text: Occupational Therapy Intermediate Facility Treatment Summary SERVICE DATE: 08/17/2024 SERVICE TIME: 924 to 1015 ROOM: [place] [address] OT 6 Clicks Score: 21 DISCHARGE RECOMMENDATIONS Home OT Anticipated Discharge Needs: Family Training, Physical Assist at Home, Supervision at Home Recommended Discharge Equipment: Commode-3 in 1 GOALS Patient will demonstrate progress to optimize self-care activities, cognitive and/or coping to maximize function upon discharge. Upper Body Bathing with: Modified Independent Upper Body Dressing with: Independent Lower Body Bathing with: Stand By Assistance Lower Body Dressing with: Stand By Assistance Toilet Hygiene with: Supervision Chair Transfer with: Stand By Assistance Toilet Transfer with: Stand By Assistance Shower Transfer with: Stand By Assistance Kitchen Mobility Tasks with: Stand By Assistance Demonstrate Competence with Education with: Stand By Assistance Progress Toward Goals: Progressing as expected Rehab Potential: Good ASSESSMENT Response to Therapy Interventions: Good Participation in Activities, Low Activity Tolerance Pt was seen bedside for bathing and dressing. She used long bath sponge for legs and simulated back Pt able to do bathing with stand by assist to contact guard assist and cues for safety Pt ambulated to bathroom and was supervised for hygeine after urinating. Pt needed reminders to wait for staff before standing. Plan for Next Visit: Continue per POC PRECAUTIONS Bed/Chair Alarm, Fall Risk SDH, check BP with treatment, do not bend over at the waist to lift heavy objects, may bathe and shower, may walk with a walker, no prolonged bedrest > 8 hours, puree diet/ thin liquids SUBJECTIVE now I need a nap. Pt reports fatigue after bedside bathing and dressing FUNCTIONAL STATUS Activities of Daily Living Assist Level Additional Information Feeding Supervision, Additional Information Grooming Set Up Bathing Upper Body Modified Independent Bathing Lower Body Supervision, Stand By Assistance used long bathsponge.. needed cues for walker placement Dressing Upper Body Modified Independent Dressing Lower Body Stand By Assistance, Contact Guard Assistance, Additional Information she used sock aid appropriately but also able to do without it by bringing leg up to figure 4 Toileting Stand By Assistance, Additional Information cues for proper positioning of walker Instrumental Activities of Daily Living Assist Level Additional Information Meal/Beverage Prep Total Assistance Cleaning Total Assistance Laundry Total Assistance Medication Management with Strategies Total Assistance Mobility Assist Level Additional Information Bed Mobility Supine To Sit: Stand By Assistance, Additional Information Sit To Supine: Stand By Assistance Sit to Stand Stand By Assistance Stand to Sit Stand By Assistance Bed to Chair Stand By Assistance, Contact Guard Assistance, Additional Information Bed To Chair Transfer Type: Stepping Bed To Chair Transfer Equipment: Wheeled Walker, Gait Belt Toilet/Commode Stand By Assistance, Contact Guard Assistance Shower Contact Guard Assistance Functional Mobility Contact Guard Assistance Functional Mobility Device: Wheeled Walker CURRENT HOSPITAL COURSE Patient is an 84 year old female presenting from [facility] as a transfer from [place] following fall on 08/01. CT/ XR show acute subdural hematoma involving the lower anterior interhemispheric fissue which measures 8 mm in maximum width. Small volume of an adjacent acute subarachnoid hemorrhage in anterior inferior frontal lobes. Right frontal scalp hematoma/ contusion. Nasal septal fractures with suspected anterior nasal septal hematoma, and upper lip laceration. Admitted to ICU for brain bleed, and neurosurgery recommended nonoperative treatment. Nasal fracture evaluated by plastics who also suggested nonoperative management. Patient now presents below baseline level of function, and can benefit from skilled services to faciltiate return to [facility]. Relevant Past Medical History: HTN, DM2, and Hyperlipidemia HOME LIVING Patient Lives With: Family (son lives in basement apartment) Assistance Available: Part-Time (son works full time paramedic in [place]) Entry To Home: Stairs, With Rail Number Of Stairs Into Home: 3 Number Of Stairs To Bed/Bath: 0 Tub/Shower Type: walk in shower Laundry: son can assist with Equipment Owned: Walker- Wheeled, Wheelchair- Manual, Pulse Ox, BP Monitor, Cane, Lift Chair (sleeps in regular flat bed) PRIOR FUNCTIONAL LEVEL Within Functional Limits, History of Falls, Required Assistance Assistance Required With: Meals, Transportation Patient was IND prior to falling. Ambulated at home with a wheeled-walker but is not driving (more content not included)... [facility] THERAPY NTon 08-16-2024 THERAPY NT HNO ID: [id number] Author: MAGALI BEAN OTR/L Service: Occupational Therapy Author Type: Occupational Therapist Type: Therapy (PT/OT/Speech/Resp) Filed: 08/16/2024 14:46 Note Text: Occupational Therapy Intermediate Facility Treatment Summary SERVICE DATE: 08/16/2024 SERVICE TIME: 1340 to 1405 ROOM: [place] [address] OT 6 Clicks Score: 21 DISCHARGE RECOMMENDATIONS Home OT Anticipated Discharge Needs: Family Training, Physical Assist at Home, Supervision at Home Recommended Discharge Equipment: Commode-3 in 1 GOALS Patient will demonstrate progress to optimize self-care activities, cognitive and/or coping to maximize function upon discharge. Upper Body Bathing with: Modified Independent Upper Body Dressing with: Independent Lower Body Bathing with: Stand By Assistance Lower Body Dressing with: Stand By Assistance Toilet Hygiene with: Supervision Chair Transfer with: Stand By Assistance Toilet Transfer with: Stand By Assistance Shower Transfer with: Stand By Assistance Kitchen Mobility Tasks with: Stand By Assistance Demonstrate Competence with Education with: Stand By Assistance Progress Toward Goals: Progressing as expected Rehab Potential: Good ASSESSMENT Patient seen this date for MOCA assessment. Patient was noted to have some cognitive issues when last worked with her. Patient scored a 17/30 which demonstrates increased likelihood of significant cognitive issues. On the test, she scored poorly in visuospatial/executive function; she was limited in her naming objects, demonstrated decreased attention. This assessment demonstrates her limitations in judgement and can possibly be a contributory factor to her falls. She would benefit from having someone walk with her at all times due to her decreased judgement and questionable visual/attention deficits. Will continue with OT luther while here. Plan for Next Visit: Continue per POC PRECAUTIONS Bed/Chair Alarm, Fall Risk SDH, check BP with treatment, do not bend over at the waist to lift heavy objects, may bathe and shower, may walk with a walker, no prolonged bedrest > 8 hours, puree diet/ thin liquids SUBJECTIVE Patient agreeable to cog testing this date FUNCTIONAL STATUS Activities of Daily Living Assist Level Additional Information Feeding Supervision, Additional Information Grooming Set Up Bathing Upper Body Modified Independent Bathing Lower Body Minimal Assistance Dressing Upper Body Modified Independent Dressing Lower Body Minimal Assistance, Additional Information, Moderate Assistance Toileting Contact Guard Assistance Instrumental Activities of Daily Living Assist Level Additional Information Meal/Beverage Prep Total Assistance Cleaning Total Assistance Laundry Total Assistance Medication Management with Strategies Total Assistance Mobility Assist Level Additional Information Bed Mobility Supine To Sit: Stand By Assistance, Additional Information Sit To Supine: Stand By Assistance Sit to Stand Contact Guard Assistance, Additional Information Stand to Sit Contact Guard Assistance, Additional Information Bed to Chair Contact Guard Assistance Bed To Chair Transfer Type: Stepping Bed To Chair Transfer Equipment: Wheeled Walker, Gait Belt Toilet/Commode Contact Guard Assistance, Additional Information Shower Contact Guard Assistance Functional Mobility Contact Guard Assistance Functional Mobility Device: Wheeled Walker CURRENT HOSPITAL COURSE Patient is an 84 year old female presenting from [facility] as a transfer from [place] following fall on 08/01. CT/ XR show acute subdural hematoma involving the lower anterior interhemispheric fissue which measures 8 mm in maximum width. Small volume of an adjacent acute subarachnoid hemorrhage in anterior inferior frontal lobes. Right frontal scalp hematoma/ contusion. Nasal septal fractures with suspected anterior nasal septal hematoma, and upper lip laceration. Admitted to ICU for brain bleed, and neurosurgery recommended nonoperative treatment. Nasal fracture evaluated by plastics who also suggested nonoperative management. Patient now presents below baseline level of function, and can benefit from skilled services to faciltiate return to [facility]. Relevant Past Medical History: HTN, DM2, and Hyperlipidemia HOME LIVING Patient Lives With: Family (son lives in basement apartment) Assistance Available: Part-Time (son works full time paramedic in [place]) Entry To Home: Stairs, With Rail Number Of Stairs Into Home: 3 Number Of Stairs To Bed/Bath: 0 Tub/Shower Type: walk in shower Laundry: son can assist with Equipment Owned: Walker- Wheeled, Wheelchair- Manual, Pulse Ox, BP Monitor, Cane, Lift Chair (sleeps in regular flat bed) PRIOR FUNCTIONAL LEVEL Within Functional Limits, History of Falls, Required Assistance Assistance Required With: Meals, Transportation Patient was IND prior to falling. Ambulated at home with a wheeled-walker but (more content not included)... [facility] THERAPY NTon 08-15-2024 THERAPY NT HNO ID: [id number] Author: SANNA HERNANDEZ, PT, DPT Service: Physical Therapy Author Type: Physical Therapist Type: Therapy (PT/OT/Speech/Resp) Filed: 08/15/2024 10:51 Note Text: Physical Therapy Intermediate Facility Treatment Summary SERVICE DATE: 08/15/2024 SERVICE TIME: 1007 to 1048 ROOM: [place] [address] PT 6 Clicks Score: 23 DISCHARGE RECOMMENDATIONS Home PT Recommended Discharge Disposition Comments: Home PT pending ability of son to supervise patient initially due to fall risk Anticipated Discharge Needs: Family Training, Physical Assist at Home, Supervision at Home Recommended Discharge Equipment: To Be Determined (she reports B HRs are being put in for her) GOALS Patient will demonstrate progress with functional mobility to allow safe discharge to home with available support and/or physical assistance. Able to Perform HEP with: Independent Rolling with: Modified Independent Transfer Supine to/from Sit with: Modified Independent Transfer Sit to/from Stand with: Supervision Ambulate with: Stand By Assistance Distance: 150 Device: Wheeled Walker Ambulate Up and Down Steps with: Contact Guard Assistance Number of Steps: 3 Device: Rail ROM: BLE strength to at least 4/5 Car Transfer with: Contact Guard Assistance Goal: Improvement in 2 MWT by at least 40' at FWW Rehab Potential: Good Progress Toward Goals: Progressing as expected ASSESSMENT Response to Therapy Interventions: Good Participation in Activities Patient demonstrated improved endurance with ability to complete long distance ambulation bouts throughout hospital with no episodes of LOB. Patient progressing with stair negotiation with reciprocal pattern during final 4 steps. Plan for Next Visit: Gait Training, Fall Prevention PRECAUTIONS Bed/Chair Alarm, Fall Risk SDH, check BP with treatment, do not bend over at the waist to lift heavy objects, may bathe and shower, may walk with a walker, no prolonged bedrest > 8 hours, puree diet/ thin liquids SUBJECTIVE Patient sitting up in bed upon entering room, agreeable to therapy session. FUNCTIONAL STATUS most recent functional performance Bed Mobility Rolling: Modified Independent Supine To Sit: Modified Independent Sit to Supine: Modified Independent Scooting: Modified Independent Transfers Sit To Stand: Supervision Stand To Sit: Supervision Bed to Chair Stand By Assistance Bed To Chair Transfer Type: Stepping Bed To Chair Transfer Equipment: Wheeled Walker Gait Supervision Patient completed ambulation around hospital for community reintegration training, managing obstacles and a changing environement. Gait Device: Wheeled Walker General Deviations/Observation s: Flexed trunk posture, Shuffling Gait, Non-functional gait speed Gait Distance (feet): 500', 120' Stairs Contact Guard Assistance Stairs Device: Rail (B HR) Number of Stairs: 8 completed first 4 steps with step to pattern ascending and descending, able to complete second 4 steps with reciprocal pattern. CGA for steadying and safety. CURRENT HOSPITAL COURSE Patient is an 84 year old female presenting from [facility] as a transfer from [place] following fall on 08/01. CT/ XR show acute subdural hematoma involving the lower anterior interhemispheric fissue which measures 8 mm in maximum width. Small volume of an adjacent acute subarachnoid hemorrhage in anterior inferior frontal lobes. Right frontal scalp hematoma/ contusion. Nasal septal fractures with suspected anterior nasal septal hematoma, and upper lip laceration. Admitted to ICU for brain bleed, and neurosurgery recommended nonoperative treatment. Nasal fracture evaluated by plastics who also suggested nonoperative management. Patient now presents below baseline level of function, and can benefit from skilled services to faciltiate return to [facility]. Relevant Past Medical History: HTN, DM2, and Hyperlipidemia HOME LIVING Patient Lives With: Family (son lives in basement apartment) Assistance Available: Part-Time (son works full time paramedic in [place]) Entry To Home: Stairs, With Rail Number Of Stairs Into Home: 3 Number Of Stairs To Bed/Bath: 0 Tub/Shower Type: walk in shower Laundry: son can assist with Equipment Owned: Walker- Wheeled, Wheelchair- Manual, Pulse Ox, BP Monitor, Cane, Lift Chair (sleeps in regular flat bed) PRIOR FUNCTIONAL LEVEL Within Functional Limits, History of Falls, Required Assistance Assistance Required With: Meals, Transportation Patient was IND prior to falling. Ambulated at home with a wheeled-walker but is not driving. Patient reports to PT that she cooks, to OT she said her son cooks. she cleans, but son has taken over the majority of the IADLs. History of multiple falls with injuries. THERAPY DIAGNOSIS Reduced mobility-other, Decreased activities of daily living (ADL), Muscle Weakness (generalized) TREATMENT INTERVENTIONS Therapeutic Exercise (75661), Gait Trainin (more content not included)... [facility] NUTRITIONon 08-14-2024 NUTRITION HNO ID: [id number] Author: MINERVA WATSON RD Service: Nutrition Therapy Author Type: Registered Dietitian Type: Nutrition Filed: 08/14/2024 09:19 Note Text: NUTRITION THERAPY PROGRESS NOTE SERVICE DATE: 08/14/2024 SERVICE TIME: Start Time: 827 Nutrition Assessment: Recommended Malnutrition Diagnosis: Mild Protein-Calorie Malnutrition (08/07/24 0920 : Minerva Watson RD) Care Plan: Follow for diet advancement to goal Monitor and Evaluation: Meet greater than 75% of estimated needs, Monitor fluid/electrolyte balance, Monitor labs, I/Os, vital signs, weight Discharge Recommendations: Diet, Oral Supplements Diet: as tolerated Oral Supplements: high protein high calorie twice daily Interval History: 7 day LOS here for Therapy, meds AND labs reviewed, variable % meal intake since admit, ONS to be changed per trial of [facility], tolerate diet Intake History: Current Nutrition Intake: Greater than 75% estimated energy needs Current Intake Over time: Greater than or equal to 5 days Dosing Weight: 45 kg (99 lb 3.3 oz) Dosing Weight Type: [place] body weight Estimated kilocalorie needs: 8845-9472 Calorie Calculation Method: 25-30 kcals/kg Estimated protein needs (grams): 46-54 Grams protein determined by: 1.0 - 1.2 g/kg Diet Orders (From admission, onward) Start Ordered 08/07/24 0930 DIET SUPPLEMENTS START NOW Question Answer Comment Supplement 1 BOOST GLUCOSE CONTROL CHOCOLATE Supplement 1 Frequency BREAKFAST Supplement 1 Frequency DINNER 08/07/24 0922 08/06/24 1500 DIET CARBOHYDRATE CONTROLLED START NOW Question Answer Comment Carbohydrate Control CONSISTENT CARBOHYDRATE Food Consistency PUREED (L4) 08/06/24 1447 Anthropometrics: Height: 149.9 cm (4' 11) Weight: 57.2 kg (126 lb 1.7 oz) Body mass index is 25.47 kg/m?. Weight Change: Not assessed Lines, Drains, and Airways None MNT Billing: $ Routine Care : 1 unit Time Spent (mins): 7 SIGNATURE: Minerva Watson RD PATIENT NAME: Tamica Anderson DATE: August 14, 2024 TIME: 7:26 AM [facility] THERAPY NTon 08-14-2024 THERAPY NT HNO ID: [id number] Author: MAGALI BEAN OTR/L Service: Occupational Therapy Author Type: Occupational Therapist Type: Therapy (PT/OT/Speech/Resp) Filed: 08/14/2024 15:32 Note Text: Occupational Therapy Intermediate Facility Treatment Summary SERVICE DATE: 08/14/2024 SERVICE TIME: 1352 to 1423 ROOM: [place] [address] OT 6 Clicks Score: 21 DISCHARGE RECOMMENDATIONS Home OT Anticipated Discharge Needs: Family Training, Physical Assist at Home, Supervision at Home Recommended Discharge Equipment: Commode-3 in 1 GOALS Patient will demonstrate progress to optimize self-care activities, cognitive and/or coping to maximize function upon discharge. Upper Body Bathing with: Modified Independent Upper Body Dressing with: Independent Lower Body Bathing with: Stand By Assistance Lower Body Dressing with: Stand By Assistance Toilet Hygiene with: Supervision Chair Transfer with: Stand By Assistance Toilet Transfer with: Stand By Assistance Shower Transfer with: Stand By Assistance Kitchen Mobility Tasks with: Stand By Assistance Demonstrate Competence with Education with: Stand By Assistance Progress Toward Goals: Progressing as expected Rehab Potential: Good ASSESSMENT Response to Therapy Interventions: Good Participation in Activities, Multiple Ongoing Medical Issues Patient seen this date for OT tx. Patient able to complete LB dressing and functional mobility as noted above. Patient will benefit from continued OT tx to increase her LOF and safety. Plan for Next Visit: Continue per POC PRECAUTIONS Bed/Chair Alarm, Fall Risk SDH, check BP with treatment, do not bend over at the waist to lift heavy objects, may bathe and shower, may walk with a walker, no prolonged bedrest > 8 hours, puree diet/ thin liquids SUBJECTIVE pt agreeable to OT tx session FUNCTIONAL STATUS Activities of Daily Living Assist Level Additional Information Feeding Supervision, Additional Information Grooming Set Up Bathing Upper Body Modified Independent Bathing Lower Body Minimal Assistance Dressing Upper Body Modified Independent Dressing Lower Body Minimal Assistance, Additional Information, Moderate Assistance pt attempted to use asian studies program chair and sock aide to doff and don bilateral footie socks Toileting Contact Guard Assistance BSC frame over toilet; pt able to complete anterior hygiene Instrumental Activities of Daily Living Assist Level Additional Information Meal/Beverage Prep Total Assistance Cleaning Total Assistance Laundry Total Assistance Medication Management with Strategies Total Assistance Mobility Assist Level Additional Information Bed Mobility Supine To Sit: Stand By Assistance, Additional Information pt able to use side rail to assist to come to sit at EOB Sit To Supine: Stand By Assistance Sit to Stand Contact Guard Assistance, Additional Information to come to stand from EOB at regular bed height Stand to Sit Contact Guard Assistance, Additional Information to sit back on EOB Bed to Chair Contact Guard Assistance Bed To Chair Transfer Type: Stepping Bed To Chair Transfer Equipment: Wheeled Walker, Gait Belt Toilet/Commode Contact Guard Assistance, Additional Information to get on and off BSC over toilet Shower Contact Guard Assistance Functional Mobility Contact Guard Assistance Functional Mobility Device: Wheeled Walker CURRENT HOSPITAL COURSE Patient is an 84 year old female presenting from [facility] as a transfer from [place] following fall on 08/01. CT/ XR show acute subdural hematoma involving the lower anterior interhemispheric fissue which measures 8 mm in maximum width. Small volume of an adjacent acute subarachnoid hemorrhage in anterior inferior frontal lobes. Right frontal scalp hematoma/ contusion. Nasal septal fractures with suspected anterior nasal septal hematoma, and upper lip laceration. Admitted to ICU for brain bleed, and neurosurgery recommended nonoperative treatment. Nasal fracture evaluated by plastics who also suggested nonoperative management. Patient now presents below baseline level of function, and can benefit from skilled services to faciltiate return to [facility]. Relevant Past Medical History: HTN, DM2, and Hyperlipidemia HOME LIVING Patient Lives With: Family (son lives in basement apartment) Assistance Available: Part-Time (son works full time paramedic in [place]) Entry To Home: Stairs, With Rail Number Of Stairs Into Home: 3 Number Of Stairs To Bed/Bath: 0 Tub/Shower Type: walk in shower Laundry: son can assist with Equipment Owned: Walker- Wheeled, Wheelchair- Manual, Pulse Ox, BP Monitor, Cane, Lift Chair (sleeps in regular flat bed) PRIOR FUNCTIONAL LEVEL Within Functional Limits, History of Falls, Required Assistance Assistance Required With: Meals, Transportation Patient was IND prior to falling. Ambulated at home with a wheeled-walker but is not driving. Patient reports to PT that she cooks, to OT she said (more content not included)... [facility] THERAPY NT HNO ID: [id number] Author: ANAY ALVAREZ PT Service: Physical Therapy Author Type: [employer] Type: Therapy (PT/OT/Speech/Resp) Filed: 08/14/2024 17:35 Note Text: Attestation signed by Anay Alvarez PT at 08/14/2024 5:35 PM I reviewed and agree with the documentation corresponding to this therapy visit. SIGNATURE: Anay Alvarez PT DATE: August 14, 2024 TIME: 5:35 PM Physical Therapy Intermediate Facility Treatment Summary SERVICE DATE: 08/14/2024 SERVICE TIME: 1420 to 1500 ROOM: [place] [address] PT 6 Clicks Score: 21 DISCHARGE RECOMMENDATIONS Home PT Recommended Discharge Disposition Comments: Home PT pending ability of son to supervise patient initially due to fall risk Anticipated Discharge Needs: Family Training, Physical Assist at Home, Supervision at Home Recommended Discharge Equipment: To Be Determined (she reports B HRs are being put in for her) GOALS Patient will demonstrate progress with functional mobility to allow safe discharge to home with available support and/or physical assistance. Able to Perform HEP with: Independent Rolling with: Modified Independent Transfer Supine to/from Sit with: Modified Independent Transfer Sit to/from Stand with: Supervision Ambulate with: Stand By Assistance Distance: 150 Device: Wheeled Walker Ambulate Up and Down Steps with: Contact Guard Assistance Number of Steps: 3 Device: Rail ROM: BLE strength to at least 4/5 Car Transfer with: Contact Guard Assistance Goal: Improvement in 2 MWT by at least 40' at W Rehab Potential: Good Progress Toward Goals: Progressing as expected ASSESSMENT Response to Therapy Interventions: Good Participation in Activities Patient has not demonstrated LOB, verring off pathway with ambulation possibly the WW is worn ,balance is improving increased balance activities tolerated better Plan for Next Visit: Continue per POC PRECAUTIONS Bed/Chair Alarm, Fall Risk SDH, check BP with treatment, do not bend over at the waist to lift heavy objects, may bathe and shower, may walk with a walker, no prolonged bedrest > 8 hours, puree diet/ thin liquids SUBJECTIVE patient reports fatigue agreeable to PT FUNCTIONAL STATUS Bed Mobility Rolling: Modified Independent Supine To Sit: Modified Independent Sit to Supine: Modified Independent Scooting: Modified Independent Transfers Sit To Stand: Contact Guard Assistance Stand To Sit: Contact Guard Assistance Bed to Chair Contact Guard Assistance Bed To Chair Transfer Type: Stepping Bed To Chair Transfer Equipment: Wheeled Walker Gait Stand By Assistance Gait Device: Wheeled Walker Gait Distance (feet): 100 ft Stairs Contact Guard Assistance Stairs Device: Rail (bilateral handrails) Number of Stairs: 8 CURRENT HOSPITAL COURSE Patient is an 84 year old female presenting from [facility] as a transfer from [place] following fall on 08/01. CT/ XR show acute subdural hematoma involving the lower anterior interhemispheric fissue which measures 8 mm in maximum width. Small volume of an adjacent acute subarachnoid hemorrhage in anterior inferior frontal lobes. Right frontal scalp hematoma/ contusion. Nasal septal fractures with suspected anterior nasal septal hematoma, and upper lip laceration. Admitted to ICU for brain bleed, and neurosurgery recommended nonoperative treatment. Nasal fracture evaluated by plastics who also suggested nonoperative management. Patient now presents below baseline level of function, and can benefit from skilled services to faciltiate return to [facility]. Relevant Past Medical History: HTN, DM2, and Hyperlipidemia HOME LIVING Patient Lives With: Family (son lives in basement apartment) Assistance Available: Part-Time (son works full time paramedic in [place]) Entry To Home: Stairs, With Rail Number Of Stairs Into Home: 3 Number Of Stairs To Bed/Bath: 0 Tub/Shower Type: walk in shower Laundry: son can assist with Equipment Owned: Walker- Wheeled, Wheelchair- Manual, Pulse Ox, BP Monitor, Cane, Lift Chair (sleeps in regular flat bed) PRIOR FUNCTIONAL LEVEL Within Functional Limits, History of Falls, Required Assistance Assistance Required With: Meals, Transportation Patient was IND prior to falling. Ambulated at home with a wheeled-walker but is not driving. Patient reports to PT that she cooks, to OT she said her son cooks. she cleans, but son has taken over the majority of the IADLs. History of multiple falls with injuries. THERAPY DIAGNOSIS Reduced mobility-other, Decreased activities of daily living (ADL), Muscle Weakness (generalized) TREATMENT INTERVENTIONS Therapeutic Exercise (80175), Therapeutic Activity (02132), Gait Training (90429) Timed Code Treatment (minutes): 40 Skilled Treatment Time (neeru (more content not included)... [facility] THERAPY NT HNO ID: [id number] Author: ANAY ALVAREZ, PT Service: Physical Therapy Author Type: As[employer]hoe Type: Therapy (PT/OT/Speech/Resp) Filed: 08/14/2024 17:34 Note Text: Attestation signed by Anay Alvarez, PT at 08/14/2024 5:34 PM I reviewed and agree with the documentation corresponding to this therapy visit. SIGNATURE: Anay Avlarez, PT DATE: August 14, 2024 TIME: 5:34 PM Physical Therapy Intermediate Facility Treatment Summary SERVICE DATE: 08/14/2024 SERVICE TIME: 1145 to 1200 ROOM: [place] [address] PT 6 Clicks Score: 21 DISCHARGE RECOMMENDATIONS Home PT Recommended Discharge Disposition Comments: Home PT pending ability of son to supervise patient initially due to fall risk Anticipated Discharge Needs: Family Training, Physical Assist at Home, Supervision at Home Recommended Discharge Equipment: To Be Determined (she reports B HRs are being put in for her) GOALS Patient will demonstrate progress with functional mobility to allow safe discharge to home with available support and/or physical assistance. Able to Perform HEP with: Independent Rolling with: Modified Independent Transfer Supine to/from Sit with: Modified Independent Transfer Sit to/from Stand with: Supervision Ambulate with: Stand By Assistance Distance: 150 Device: Wheeled Walker Ambulate Up and Down Steps with: Contact Guard Assistance Number of Steps: 3 Device: Rail ROM: BLE strength to at least 4/5 Car Transfer with: Contact Guard Assistance Goal: Improvement in 2 MWT by at least 40' at FWW Rehab Potential: Good Progress Toward Goals: Progressing as expected ASSESSMENT Response to Therapy Interventions: Good Participation in Activities Patient has improved with increasing jaquan ambulation distance Plan for Next Visit: Continue per POC PRECAUTIONS Bed/Chair Alarm, Fall Risk SDH, check BP with treatment, do not bend over at the waist to lift heavy objects, may bathe and shower, may walk with a walker, no prolonged bedrest > 8 hours, puree diet/ thin liquids SUBJECTIVE Pataient reports she has her teeth in now notheing else in new FUNCTIONAL STATUS Bed Mobility Rolling: Modified Independent Supine To Sit: Modified Independent Sit to Supine: Modified Independent Scooting: Modified Independent Transfers Sit To Stand: Contact Guard Assistance Stand To Sit: Contact Guard Assistance Bed to Chair Contact Guard Assistance Bed To Chair Transfer Type: Stepping Bed To Chair Transfer Equipment: Wheeled Walker Gait Stand By Assistance Gait Device: Wheeled Walker Gait Distance (feet): 100 ft Stairs Contact Guard Assistance Stairs Device: Rail (bilateral handrails) Number of Stairs: 8 CURRENT HOSPITAL COURSE Patient is an 84 year old female presenting from [facility] as a transfer from [place] following fall on 08/01. CT/ XR show acute subdural hematoma involving the lower anterior interhemispheric fissue which measures 8 mm in maximum width. Small volume of an adjacent acute subarachnoid hemorrhage in anterior inferior frontal lobes. Right frontal scalp hematoma/ contusion. Nasal septal fractures with suspected anterior nasal septal hematoma, and upper lip laceration. Admitted to ICU for brain bleed, and neurosurgery recommended nonoperative treatment. Nasal fracture evaluated by plastics who also suggested nonoperative management. Patient now presents below baseline level of function, and can benefit from skilled services to faciltiate return to [facility]. Relevant Past Medical History: HTN, DM2, and Hyperlipidemia HOME LIVING Patient Lives With: Family (son lives in basement apartment) Assistance Available: Part-Time (son works full time paramedic in [place]) Entry To Home: Stairs, With Rail Number Of Stairs Into Home: 3 Number Of Stairs To Bed/Bath: 0 Tub/Shower Type: walk in shower Laundry: son can assist with Equipment Owned: Walker- Wheeled, Wheelchair- Manual, Pulse Ox, BP Monitor, Cane, Lift Chair (sleeps in regular flat bed) PRIOR FUNCTIONAL LEVEL Within Functional Limits, History of Falls, Required Assistance Assistance Required With: Meals, Transportation Patient was IND prior to falling. Ambulated at home with a wheeled-walker but is not driving. Patient reports to PT that she cooks, to OT she said her son cooks. she cleans, but son has taken over the majority of the IADLs. History of multiple falls with injuries. THERAPY DIAGNOSIS Reduced mobility-other, Decreased activities of daily living (ADL), Muscle Weakness (generalized) TREATMENT INTERVENTIONS Therapeutic Activity (16581), Gait Training (75575) Timed Code Treatment (minutes): 15 Skilled Treatment Time (minutes): 15 EXERCISE TRAINING AND EDUCATION PROVIDED Assistive Device Use, Exercise Program, Gait Pattern, (more content not included)... Normal [facility] THERAPY NTon 08-13-2024 THERAPY NT HNO ID: [id number] Author: ANAY ALVAREZ, PT Service: Physical Therapy Author Type: Assembler [employer]draulic Backhoe Type: Therapy (PT/OT/Speech/Resp) Filed: 08/13/2024 17:17 Note Text: Attestation signed by Anay Alvarez, PT at 08/13/2024 5:17 PM I reviewed and agree with the documentation corresponding to this therapy visit. SIGNATURE: Anay Alvarez PT DATE: August 13, 2024 TIME: 5:17 PM Physical Therapy Intermediate Facility Treatment Summary SERVICE DATE: 08/13/2024 SERVICE TIME: 1529 to 1557 ROOM: [place] [address] PT 6 Clicks Score: 21 DISCHARGE RECOMMENDATIONS Home PT Recommended Discharge Disposition Comments: Home PT pending ability of son to supervise patient initially due to fall risk Anticipated Discharge Needs: Family Training, Physical Assist at Home, Supervision at Home Recommended Discharge Equipment: To Be Determined (she reports B HRs are being put in for her) GOALS Patient will demonstrate progress with functional mobility to allow safe discharge to home with available support and/or physical assistance. Able to Perform HEP with: Independent Rolling with: Modified Independent Transfer Supine to/from Sit with: Modified Independent Transfer Sit to/from Stand with: Supervision Ambulate with: Stand By Assistance Distance: 150 Device: Wheeled Walker Ambulate Up and Down Steps with: Contact Guard Assistance Number of Steps: 3 Device: Rail ROM: BLE strength to at least 4/5 Car Transfer with: Contact Guard Assistance Goal: Improvement in 2 MWT by at least 40' at FWW Rehab Potential: Good Progress Toward Goals: Progressing as expected ASSESSMENT Response to Therapy Interventions: Good Participation in Activities Patient reports LE soreness prior to session however she is still agreeable to ambulate down to therapy room and complete some higher level exercises this session, she notes minimal sway when standing on aeromat however does not have and major LOB. Plan for Next Visit: Standing Balance PRECAUTIONS Bed/Chair Alarm, Fall Risk SDH, check BP with treatment, do not bend over at the waist to lift heavy objects, may bathe and shower, may walk with a walker, no prolonged bedrest > 8 hours, puree diet/ thin liquids SUBJECTIVE my legs are sore FUNCTIONAL STATUS Bed Mobility Rolling: Modified Independent Supine To Sit: Modified Independent Sit to Supine: Modified Independent Scooting: Modified Independent Transfers Sit To Stand: Contact Guard Assistance Stand To Sit: Contact Guard Assistance Bed to Chair Contact Guard Assistance Bed To Chair Transfer Type: Stepping Bed To Chair Transfer Equipment: Wheeled Walker Gait Stand By Assistance Gait Device: Wheeled Walker General Deviations/Observation s: Flexed trunk posture, Jaquan decreased, Non-functional gait speed, Shuffling Gait Gait Distance (feet): 140 x 2 Stairs Contact Guard Assistance Stairs Device: Rail (bilateral handrails) Number of Stairs: 8 CURRENT HOSPITAL COURSE Patient is an 84 year old female presenting from [facility] as a transfer from [place] following fall on 08/01. CT/ XR show acute subdural hematoma involving the lower anterior interhemispheric fissue which measures 8 mm in maximum width. Small volume of an adjacent acute subarachnoid hemorrhage in anterior inferior frontal lobes. Right frontal scalp hematoma/ contusion. Nasal septal fractures with suspected anterior nasal septal hematoma, and upper lip laceration. Admitted to ICU for brain bleed, and neurosurgery recommended nonoperative treatment. Nasal fracture evaluated by plastics who also suggested nonoperative management. Patient now presents below baseline level of function, and can benefit from skilled services to faciltiate return to [facility]. Relevant Past Medical History: HTN, DM2, and Hyperlipidemia HOME LIVING Patient Lives With: Family (son lives in basement apartment) Assistance Available: Part-Time (son works full time paramedic in [place]) Entry To Home: Stairs, With Rail Number Of Stairs Into Home: 3 Number Of Stairs To Bed/Bath: 0 Tub/Shower Type: walk in shower Laundry: son can assist with Equipment Owned: Walker- Wheeled, Wheelchair- Manual, Pulse Ox, BP Monitor, Cane, Lift Chair (sleeps in regular flat bed) PRIOR FUNCTIONAL LEVEL Within Functional Limits, History of Falls, Required Assistance Assistance Required With: Meals, Transportation Patient was IND prior to falling. Ambulated at home with a wheeled-walker but is not driving. Patient reports to PT that she cooks, to OT she said her son cooks. she cleans, but son has taken over the majority of the IADLs. History of multiple falls with injuries. THERAPY DIAGNOSIS Reduced mobility-other, Decreased activities of daily living (ADL), Muscle Weakness (gen (more content not included)... Normal [facility] THERAPY NT HNO ID: [id number] Author: PAULETTE BUSBY OTR/Catherine Service: Occupational Therapy Author Type: Occupational Therapist Type: Therapy (PT/OT/Speech/Resp) Filed: 08/13/2024 13:44 Note Text: Occupational Therapy Intermediate Facility Treatment Summary SERVICE DATE: 08/13/2024 SERVICE TIME: 1259 to 1340 ROOM: [place] [address] OT 6 Clicks Score: 21 DISCHARGE RECOMMENDATIONS Home OT Anticipated Discharge Needs: Family Training, Physical Assist at Home, Supervision at Home Recommended Discharge Equipment: Other: See Comment (possibly 3 in 1 commode) GOALS Patient will demonstrate progress to optimize self-care activities, cognitive and/or coping to maximize function upon discharge. Upper Body Bathing with: Modified Independent Upper Body Dressing with: Independent Lower Body Bathing with: Stand By Assistance Lower Body Dressing with: Stand By Assistance Toilet Hygiene with: Supervision Chair Transfer with: Stand By Assistance Toilet Transfer with: Stand By Assistance Shower Transfer with: Stand By Assistance Kitchen Mobility Tasks with: Stand By Assistance Demonstrate Competence with Education with: Stand By Assistance Progress Toward Goals: Progressing as expected Rehab Potential: Good ASSESSMENT Response to Therapy Interventions: Good Participation in Activities, Multiple Ongoing Medical Issues pt completing LB dressing tasks; pt open to AE to reduce fall risk / bending at waist level; would benefit from cont. practicd Plan for Next Visit: Continue per POC PRECAUTIONS Bed/Chair Alarm, Fall Risk SDH, check BP with treatment, do not bend over at the waist to lift heavy objects, may bathe and shower, may walk with a walker, no prolonged bedrest > 8 hours, puree diet/ thin liquids SUBJECTIVE pt agreeable to OT FUNCTIONAL STATUS Activities of Daily Living Assist Level Additional Information Feeding Supervision, Additional Information Grooming Set Up Bathing Upper Body Modified Independent Bathing Lower Body Minimal Assistance Dressing Upper Body Modified Independent Dressing Lower Body Minimal Assistance, Additional Information, Moderate Assistance introduction to AE; pt requiring min A for set up and assist d/t wrappings; improved ind. without wrappings; Toileting Contact Guard Assistance BSC frame over toilet; pt able to complete posterior hygiene Instrumental Activities of Daily Living Assist Level Additional Information Meal/Beverage Prep Total Assistance Cleaning Total Assistance Laundry Total Assistance Medication Management with Strategies Total Assistance Mobility Assist Level Additional Information Bed Mobility Supine To Sit: Stand By Assistance Sit To Supine: Stand By Assistance Sit to Stand Contact Guard Assistance Stand to Sit Contact Guard Assistance Bed to Chair Contact Guard Assistance Bed To Chair Transfer Type: Stepping Bed To Chair Transfer Equipment: Wheeled Walker, Gait Belt Toilet/Commode Stand By Assistance Shower Contact Guard Assistance Functional Mobility Contact Guard Assistance Functional Mobility Device: Wheeled Walker CURRENT HOSPITAL COURSE Patient is an 84 year old female presenting from [facility] as a transfer from [place] following fall on 08/01. CT/ XR show acute subdural hematoma involving the lower anterior interhemispheric fissue which measures 8 mm in maximum width. Small volume of an adjacent acute subarachnoid hemorrhage in anterior inferior frontal lobes. Right frontal scalp hematoma/ contusion. Nasal septal fractures with suspected anterior nasal septal hematoma, and upper lip laceration. Admitted to ICU for brain bleed, and neurosurgery recommended nonoperative treatment. Nasal fracture evaluated by plastics who also suggested nonoperative management. Patient now presents below baseline level of function, and can benefit from skilled services to faciltiate return to [facility]. Relevant Past Medical History: HTN, DM2, and Hyperlipidemia HOME LIVING Patient Lives With: Family (son lives in basement apartment) Assistance Available: Part-Time (son works full time paramedic in [employer]) Entry To Home: Stairs, With Rail Number Of Stairs Into Home: 3 Number Of Stairs To Bed/Bath: 0 Tub/Shower Type: walk in shower Laundry: son can assist with Equipment Owned: Walker- Wheeled, Wheelchair- Manual, Pulse Ox, BP Monitor, Cane, Lift Chair (sleeps in regular flat bed) PRIOR FUNCTIONAL LEVEL Within Functional Limits, History of Falls, Required Assistance Assistance Required With: Meals, Transportation Patient was IND prior to falling. Ambulated at home with a wheeled-walker but is not driving. Patient reports to PT that she cooks, to OT she said her son cooks. she cleans, but son has taken over the majority of the IADLs. History of multiple falls with injuries. Baseline Cognition: Oriented to self, Oriented to place, Oriented to time, Oriented to situation COGNITION Executive Function Deficits: Mo (more content not included)... Normal [facility] THERAPY NT HNO ID: [id number] Author: VIKTORIYA WARNER PT Service: Physical Therapy Author Type: Assembler Hydraulic Backhoe Type: Therapy (PT/OT/Speech/Resp) Filed: 08/13/2024 12:26 Note Text: Attestation signed by Viktoriya Warner PT at 08/13/2024 12:26 PM I reviewed and agree with the documentation corresponding to this therapy visit. SIGNATURE: Viktoriya Warner PT DATE: August 13, 2024 TIME: 12:25 PM Physical Therapy Intermediate Facility Treatment Summary SERVICE DATE: 08/13/2024 SERVICE TIME: 1027 to 1107 ROOM: [place] [address] PT 6 Clicks Score: 21 DISCHARGE RECOMMENDATIONS Home PT Recommended Discharge Disposition Comments: Home PT pending ability of son to supervise patient initially due to fall risk Anticipated Discharge Needs: Family Training, Physical Assist at Home, Supervision at Home Recommended Discharge Equipment: To Be Determined (she reports B HRs are being put in for her) GOALS Patient will demonstrate progress with functional mobility to allow safe discharge to home with available support and/or physical assistance. Able to Perform HEP with: Independent Rolling with: Modified Independent Transfer Supine to/from Sit with: Modified Independent Transfer Sit to/from Stand with: Supervision Ambulate with: Stand By Assistance Distance: 150 Device: Wheeled Walker Ambulate Up and Down Steps with: Contact Guard Assistance Number of Steps: 3 Device: Rail ROM: BLE strength to at least 4/5 Car Transfer with: Contact Guard Assistance Goal: Improvement in 2 MWT by at least 40' at FWW Rehab Potential: Good Progress Toward Goals: Progressing as expected ASSESSMENT Response to Therapy Interventions: Good Participation in Activities patient ambulates down to therapy room and rides nustep along with that she also completes 8 stairs with bilateral handrails and contact gaurd assist for safety. Patient also completes a few standing balance exercises with good tolerance however notes increased difficulty with semi tandem stance. Plan for Next Visit: Continue per POC PRECAUTIONS Bed/Chair Alarm, Fall Risk SDH, check BP with treatment, do not bend over at the waist to lift heavy objects, may bathe and shower, may walk with a walker, no prolonged bedrest > 8 hours, puree diet/ thin liquids SUBJECTIVE I walked with a cane before at home FUNCTIONAL STATUS Bed Mobility Rolling: Modified Independent Supine To Sit: Modified Independent HOB elevated; use of rail Sit to Supine: Modified Independent Scooting: Modified Independent Transfers Sit To Stand: Contact Guard Assistance Stand To Sit: Contact Guard Assistance Bed to Chair Contact Guard Assistance Bed To Chair Transfer Type: Stepping Bed To Chair Transfer Equipment: Wheeled Walker Gait Stand By Assistance Gait Device: None, Wheeled Walker General Deviations/Observation s: Flexed trunk posture, Jaquan decreased, Non-functional gait speed, Shuffling Gait Gait Distance (feet): 140 x 2 Stairs Contact Guard Assistance Stairs Device: Rail (bilateral handrails) Number of Stairs: 8 CURRENT HOSPITAL COURSE Patient is an 84 year old female presenting from [facility] as a transfer from [place] following fall on 08/01. CT/ XR show acute subdural hematoma involving the lower anterior interhemispheric fissue which measures 8 mm in maximum width. Small volume of an adjacent acute subarachnoid hemorrhage in anterior inferior frontal lobes. Right frontal scalp hematoma/ contusion. Nasal septal fractures with suspected anterior nasal septal hematoma, and upper lip laceration. Admitted to ICU for brain bleed, and neurosurgery recommended nonoperative treatment. Nasal fracture evaluated by plastics who also suggested nonoperative management. Patient now presents below baseline level of function, and can benefit from skilled services to faciltiate return to [facility]. Relevant Past Medical History: HTN, DM2, and Hyperlipidemia HOME LIVING Patient Lives With: Family (son lives in basement apartment) Assistance Available: Part-Time (son works full time paramedic in [place]) Entry To Home: Stairs, With Rail Number Of Stairs Into Home: 3 Number Of Stairs To Bed/Bath: 0 Tub/Shower Type: walk in shower Laundry: son can assist with Equipment Owned: Walker- Wheeled, Wheelchair- Manual, Pulse Ox, BP Monitor, Cane, Lift Chair (sleeps in regular flat bed) PRIOR FUNCTIONAL LEVEL Within Functional Limits, History of Falls, Required Assistance Assistance Required With: Meals, Transportation Patient was IND prior to falling. Ambulated at home with a wheeled-walker but is not driving. Patient reports to PT that she cooks, to OT she said her son cooks. she cleans, but son has taken over the majority of the IADLs. History of multiple falls with injuries. THERAPY D (more content not included)... Normal [facility] Basic metabolic 2000 panelon 08-12-2024 Anion gap [Moles/Vol] 12 mmol/L Normal 8-15 [facility] Comment on above: Order Comment: Speci men Type: BLOOD SPECIMENOrdering Facility: [facility] Address: [address] [place] [address] Performed By: #### 2 4321-2 ####[facility] LABCLIA [id number] [place] [address] [place] Calcium [Mass/Vol] 9.6 mg/dL Normal 8.5-10.2 [facility] Comment on above: Order Comment: Speci men Type: BLOOD SPECIMENOrdering Facility: [facility] Address: [address] [place] [address] Performed By: #### 2 4321-2 ####[facility] [place] LABCLIA [id number] [facility] [place] [address] [place] Chloride [Moles/Vol] 98 mmol/L Normal 98-107 [facility] Comment on above: Order Comment: Speci men Type: BLOOD SPECIMENOrdering Facility: [facility] Address: [address] [place] [address] Performed By: #### 2 4321-2 ####[facility] LABCLIA [id number] [place] [address] [place] CO2 [Moles/Vol] 32 mmol/L High 22-30 [facility] Comment on above: Order Comment: Speci men Type: BLOOD SPECIMENOrdering Facility: [facility] Address: [address] [place] [address] Performed By: #### 2 4321-2 ####[facility] LABCLIA [id number] [place] [address] [place] Creatinine [Mass/Vol] 0.88 mg/dL Normal 0.58-0.96 [facility] Comment on above: Order Comment: Speci men Type: BLOOD SPECIMENOrdering Facility: [facility] Address: [address] [place] [address] Performed By: #### 2 4321-2 ####[facility] [place] LABCLIA [id number] [place] [address] [facility] Creatinine and Glomerular filtration rate.predicted panel (S/P/Bld) 65 mL/min/1.73m??? Normal >=60 [facility] Comment on above: Order Comment: Speci men Type: BLOOD SPECIMENOrdering Facility: [facility] Address: [address] [place] [address] Result Comment: Venita mated Glomerular Filtration Rate (eGFR) is calculated using the 2020 CKD-EPI creatinine equation. This equation utilizes serum creatinine, sex, and age as parameters. The creatinine assay has traceable calibration to isotope dilution-mass spectrometry. Refer to KDIGO guidelines for clinical interpretation. In patients with unstable renal function, e.g. those with acute kidney injury, the eGFR may not accurately reflect actual GFR. Performed By: #### 2 4321-2 ####[facility] my4oneoneI LABCLIA [id number] [place] [address] [place] Glucose [Mass/Vol] 104 mg/dL High 74-99 [facility] Comment on above: Order Comment: Speci men Type: BLOOD SPECIMENOrdering Facility: [facility] Address: [address] [place], [place] [id number] Result Comment: The [place] Diabetes Association (ADA) provides guidance for cutoff values for fasting glucose and random glucose. The ADA defines fasting as no caloric intake for at least 8 hours. Fasting plasma glucose results between 100 to 125 mg/dL indicate increased risk for diabetes (prediabetes). Fasting plasma glucose results greater than or equal to 126 mg/dL meet the criteria for diagnosis of diabetes. In the absence of unequivocal hyperglycemia, results should be confirmed by repeat testing. In a patient with classic symptoms of hyperglycemia or hyperglycemic crisis, random plasma glucose results greater than or equal to 200 mg/dL meet the criteria for diagnosis of diabetes. Reference: Standards of Medical Care in Diabetes 2016, British Diabetes Association. Diabetes Care. 2016.39(Suppl 1). Performed By: #### 2 4321-2 ####[facility] my4oneoneI LABCLIA [id number] [place] [address] [place] Potassium [Moles/Vol] 3.8 mmol/L Normal 3.7-5.1 [facility] Comment on above: Order Comment: Patria [facility] Type: BLOOD SPECIMENOrdering Facility: [facility] Address: [address] [place] [address] Performed By: #### 2 4321-2 ####[facility] my4oneoneI LABCLIA [id number] [place] [address] [place] Sodium [Moles/Vol] 142 mmol/L Normal 136-144 [facility] Comment on above: Order Comment: Speci men Type: BLOOD SPECIMENOrdering Facility: [facility] Address: [address] [place] [place] [id number] Performed By: #### 2 4321-2 ####[facility] [place] LABCLIA [id number] [place] [address] [facility] Urea nitrogen [Mass/Vol] 15 mg/dL Normal 7-21 [facility] Comment on above: Order Comment: Patria mei Type: BLOOD SPECIMENOrdering Facility: [facility] Address: [address] [place] [address] Performed By: #### 2 4321-2 ####[facility] LAURENI LABCLIA [id number] [place] [address] [facility] THERAPY NTon 08-12-2024 THERAPY NT HNO ID: [id number] Author: ANAY ALVAREZ, PT Service: Physical Therapy Author Type: Assembler Hydraulic Backhoe Type: Therapy (PT/OT/Speech/Resp) Filed: 08/12/2024 17:40 Note Text: Attestation signed by Anay Alvarez, PT at 08/12/2024 5:40 PM I reviewed and agree with the documentation corresponding to this therapy visit. SIGNATURE: Anay Alvarez, PT DATE: August 12, 2024 TIME: 5:40 PM Physical Therapy Intermediate Facility Treatment Summary SERVICE DATE: 08/12/2024 SERVICE TIME: 1615 to 1700 ROOM: [place] [address] PT 6 Clicks Score: 21 DISCHARGE RECOMMENDATIONS Home PT Recommended Discharge Disposition Comments: Home PT pending ability of son to supervise patient initially due to fall risk Anticipated Discharge Needs: Family Training, Physical Assist at Home, Supervision at Home Recommended Discharge Equipment: To Be Determined (she reports B HRs are being put in for her) GOALS Patient will demonstrate progress with functional mobility to allow safe discharge to home with available support and/or physical assistance. Able to Perform HEP with: Independent Rolling with: Modified Independent Transfer Supine to/from Sit with: Modified Independent Transfer Sit to/from Stand with: Supervision Ambulate with: Stand By Assistance Distance: 150 Device: Wheeled Walker Ambulate Up and Down Steps with: Contact Guard Assistance Number of Steps: 3 Device: Rail ROM: BLE strength to at least 4/5 Car Transfer with: Contact Guard Assistance Goal: Improvement in 2 MWT by at least 40' at FWW Rehab Potential: Good Progress Toward Goals: Progressing as expected ASSESSMENT Response to Therapy Interventions: Cognitive Deficits Pt tolerated activities well, she was able to self correct w/ LOB and she displayed min anxiety w/ unsupported tasks, min cues required for erect posture and increased step length. Plan for Next Visit: Continue per POC PRECAUTIONS Bed/Chair Alarm, Fall Risk SDH, check BP with treatment, do not bend over at the waist to lift heavy objects, may bathe and shower, may walk with a walker, no prolonged bedrest > 8 hours, puree diet/ thin liquids SUBJECTIVE This stuff is all kind of easy. FUNCTIONAL STATUS Bed Mobility Rolling: Modified Independent Supine To Sit: Modified Independent Sit to Supine: Modified Independent Scooting: Modified Independent Transfers Sit To Stand: Contact Guard Assistance Stand To Sit: Contact Guard Assistance Bed to Chair Contact Guard Assistance Bed To Chair Transfer Type: Stepping Bed To Chair Transfer Equipment: Wheeled Walker Gait Contact Guard Assistance Gait Device: None Gait Distance (feet): 100' Stairs Contact Guard Assistance Stairs Device: Rail Number of Stairs: 4 CURRENT HOSPITAL COURSE Patient is an 84 year old female presenting from [facility] as a transfer from [place] following fall on 08/01. CT/ XR show acute subdural hematoma involving the lower anterior interhemispheric fissue which measures 8 mm in maximum width. Small volume of an adjacent acute subarachnoid hemorrhage in anterior inferior frontal lobes. Right frontal scalp hematoma/ contusion. Nasal septal fractures with suspected anterior nasal septal hematoma, and upper lip laceration. Admitted to ICU for brain bleed, and neurosurgery recommended nonoperative treatment. Nasal fracture evaluated by plastics who also suggested nonoperative management. Patient now presents below baseline level of function, and can benefit from skilled services to faciltiate return to [place]. Relevant Past Medical History: HTN, DM2, and Hyperlipidemia HOME LIVING Patient Lives With: Family (son lives in basement apartment) Assistance Available: Part-Time (son works full time paramedic in [employer]) Entry To Home: Stairs, With Rail Number Of Stairs Into Home: 3 Number Of Stairs To Bed/Bath: 0 Tub/Shower Type: walk in shower Laundry: son can assist with Equipment Owned: Walker- Wheeled, Wheelchair- Manual, Pulse Ox, BP Monitor, Cane, Lift Chair (sleeps in regular flat bed) PRIOR FUNCTIONAL LEVEL Within Functional Limits, History of Falls, Required Assistance Assistance Required With: Meals, Transportation Patient was IND prior to falling. Ambulated at home with a wheeled-walker but is not driving. Patient reports to PT that she cooks, to OT she said her son cooks. she cleans, but son has taken over the majority of the IADLs. History of multiple falls with injuries. THERAPY DIAGNOSIS Reduced mobility-other, Decreased activities of daily living (ADL), Muscle Weakness (generalized) TREATMENT INTERVENTIONS Therapeutic Activity (31429), Gait Training (03377), Neuromuscular Reeducation (00516) Timed Code Treatment (minutes): 45 Skilled Treatment Time (minutes): 45 EXERCISE Exe (more content not included)... [facility] THERAPY NT HNO ID: [id number] Author: PAULETTE BUSBY OTR/L Service: Occupational Therapy Author Type: Chemical Technician Type: Therapy (PT/OT/Speech/Resp) Filed: 08/12/2024 15:27 Note Text: Attestation signed by Paulette Busby OTR/L at 08/12/2024 3:27 PM I reviewed and agree with the documentation corresponding to this therapy visit. SIGNATURE: Paulette DillardDONTRELL orozcoR/Catherine DATE: August 12, 2024 TIME: 3:27 PM 2 Occupational Therapy Intermediate Facility Treatment Summary SERVICE DATE: 08/12/2024 SERVICE TIME: 1302 to 1349 ROOM: [place] [address] OT 6 Clicks Score: 20 DISCHARGE RECOMMENDATIONS Home OT Anticipated Discharge Needs: Family Training, Physical Assist at Home, Supervision at Home Recommended Discharge Equipment: Other: See Comment (possibly 3 in 1 commode) GOALS Patient will demonstrate progress to optimize self-care activities, cognitive and/or coping to maximize function upon discharge. Upper Body Bathing with: Modified Independent Upper Body Dressing with: Independent Lower Body Bathing with: Stand By Assistance Lower Body Dressing with: Stand By Assistance Toilet Hygiene with: Supervision Chair Transfer with: Stand By Assistance Toilet Transfer with: Stand By Assistance Shower Transfer with: Stand By Assistance Kitchen Mobility Tasks with: Stand By Assistance Demonstrate Competence with Education with: Stand By Assistance Progress Toward Goals: Progressing as expected Rehab Potential: Good ASSESSMENT Response to Therapy Interventions: Good Participation in Activities, Multiple Ongoing Medical Issues Pt completing toileting and dressing with improved skill this day. Pt would benefit from continued BL dressing training to avoid excessive bending when dressing. Plan for Next Visit: Continue per POC PRECAUTIONS Bed/Chair Alarm, Fall Risk SDH, check BP with treatment, do not bend over at the waist to lift heavy objects, may bathe and shower, may walk with a walker, no prolonged bedrest > 8 hours, puree diet/ thin liquids SUBJECTIVE Pt agreeable to OT -reporting feeling weak from multiple BMs this day. FUNCTIONAL STATUS Activities of Daily Living Assist Level Additional Information Feeding Supervision, Additional Information Grooming Set Up Bathing Upper Body Modified Independent Bathing Lower Body Minimal Assistance Dressing Upper Body Modified Independent Dressing Lower Body Minimal Assistance, Additional Information, Moderate Assistance donning/doffing shorts, brief, socks. Assist for minor adjustments over feet. Able to manage up over BLEs/hips. Will need assist for sock management or AE at this time. Toileting Minimal Assistance BSC over commode. Assist for thoroughness in posterior hygiene. Incontinent of stool but able to complete at commode. Nsg notified. Instrumental Activities of Daily Living Assist Level Additional Information Meal/Beverage Prep Total Assistance Cleaning Total Assistance Laundry Total Assistance Medication Management with Strategies Total Assistance Mobility Assist Level Additional Information Bed Mobility Supine To Sit: Stand By Assistance Sit To Supine: Stand By Assistance Sit to Stand Contact Guard Assistance Stand to Sit Contact Guard Assistance Bed to Chair Contact Guard Assistance Bed To Chair Transfer Type: Stepping Bed To Chair Transfer Equipment: Wheeled Walker, Gait Belt Toilet/Commode Stand By Assistance BSC frame over toilet Shower Contact Guard Assistance Functional Mobility Contact Guard Assistance Functional Mobility Device: Wheeled Walker CURRENT HOSPITAL COURSE Patient is an 84 year old female presenting from [facility] as a transfer from [place] following fall on 08/01. CT/ XR show acute subdural hematoma involving the lower anterior interhemispheric fissue which measures 8 mm in maximum width. Small volume of an adjacent acute subarachnoid hemorrhage in anterior inferior frontal lobes. Right frontal scalp hematoma/ contusion. Nasal septal fractures with suspected anterior nasal septal hematoma, and upper lip laceration. Admitted to ICU for brain bleed, and neurosurgery recommended nonoperative treatment. Nasal fracture evaluated by plastics who also suggested nonoperative management. Patient now presents below baseline level of function, and can benefit from skilled services to faciltiate return to [facility]. Relevant Past Medical History: HTN, DM2, and Hyperlipidemia HOME LIVING Patient Lives With: Family (son lives in basement apartment) Assistance Available: Part-Time (son works full time paramedic in [place]) Entry To Home: Stairs, With Rail Number Of Stairs Into Home: 3 Number Of Stairs To Bed/Bath: 0 Tub/Shower Type: walk in shower Laundry: son can assist with Equipment Owned: Walker- Whee (more content not included)... [facility] THERAPY NT HNO ID: [id number] Author: ANAY ALVAREZ PT Service: Physical Therapy Author Type: Assembler Hydraulic Backhoe Type: Therapy (PT/OT/Speech/Resp) Filed: 08/12/2024 13:31 Note Text: Attestation signed by Anay Alvarez, PT at 08/12/2024 1:31 PM I reviewed and agree with the documentation corresponding to this therapy visit. SIGNATURE: Anay Alvarez, PT DATE: August 12, 2024 TIME: 1:31 PM Physical Therapy Intermediate Facility Treatment Summary SERVICE DATE: 08/12/2024 SERVICE TIME: 902 to 949 ROOM: [place] [address] PT 6 Clicks Score: 21 DISCHARGE RECOMMENDATIONS Home PT Recommended Discharge Disposition Comments: Home PT pending ability of son to supervise patient initially due to fall risk Anticipated Discharge Needs: Family Training, Physical Assist at Home, Supervision at Home Recommended Discharge Equipment: To Be Determined (she reports B HRs are being put in for her) GOALS Patient will demonstrate progress with functional mobility to allow safe discharge to home with available support and/or physical assistance. Able to Perform HEP with: Independent Rolling with: Modified Independent Transfer Supine to/from Sit with: Modified Independent Transfer Sit to/from Stand with: Supervision Ambulate with: Stand By Assistance Distance: 150 Device: Wheeled Walker Ambulate Up and Down Steps with: Contact Guard Assistance Number of Steps: 3 Device: Rail ROM: BLE strength to at least 4/5 Car Transfer with: Contact Guard Assistance Goal: Improvement in 2 MWT by at least 40' at FWW Rehab Potential: Good Progress Toward Goals: Progressing as expected ASSESSMENT Response to Therapy Interventions: Good Participation in Activities Patient appears to have increased endurance ,improved bal , able to ambulate greater distance witih less time resting. Plan for Next Visit: Continue per POC (building endurance , strength) PRECAUTIONS Bed/Chair Alarm, Fall Risk SDH, check BP with treatment, do not bend over at the waist to lift heavy objects, may bathe and shower, may walk with a walker, no prolonged bedrest > 8 hours, puree diet/ thin liquids SUBJECTIVE Patient denies pain I want to get my hand and arm back FUNCTIONAL STATUS Bed Mobility Rolling: Modified Independent Supine To Sit: Modified Independent Sit to Supine: Modified Independent Scooting: Modified Independent Transfers Sit To Stand: Contact Guard Assistance Stand To Sit: Contact Guard Assistance Bed to Chair Contact Guard Assistance Bed To Chair Transfer Type: Stepping Bed To Chair Transfer Equipment: Wheeled Walker Gait Contact Guard Assistance Gait Device: Wheeled Walker Gait Distance (feet): 100 ft Stairs Contact Guard Assistance Stairs Device: Rail Number of Stairs: 4 CURRENT HOSPITAL COURSE Patient is an 84 year old female presenting from [facility] as a transfer from [place] following fall on 08/01. CT/ XR show acute subdural hematoma involving the lower anterior interhemispheric fissue which measures 8 mm in maximum width. Small volume of an adjacent acute subarachnoid hemorrhage in anterior inferior frontal lobes. Right frontal scalp hematoma/ contusion. Nasal septal fractures with suspected anterior nasal septal hematoma, and upper lip laceration. Admitted to ICU for brain bleed, and neurosurgery recommended nonoperative treatment. Nasal fracture evaluated by plastics who also suggested nonoperative management. Patient now presents below baseline level of function, and can benefit from skilled services to faciltiate return to [facility]. Relevant Past Medical History: HTN, DM2, and Hyperlipidemia HOME LIVING Patient Lives With: Family (son lives in basement apartment) Assistance Available: Part-Time (son works full time paramedic in [place]) Entry To Home: Stairs, With Rail Number Of Stairs Into Home: 3 Number Of Stairs To Bed/Bath: 0 Tub/Shower Type: walk in shower Laundry: son can assist with Equipment Owned: Walker- Wheeled, Wheelchair- Manual, Pulse Ox, BP Monitor, Cane, Lift Chair (sleeps in regular flat bed) PRIOR FUNCTIONAL LEVEL Within Functional Limits, History of Falls, Required Assistance Assistance Required With: Meals, Transportation Patient was IND prior to falling. Ambulated at home with a wheeled-walker but is not driving. Patient reports to PT that she cooks, to OT she said her son cooks. she cleans, but son has taken over the majority of the IADLs. History of multiple falls with injuries. THERAPY DIAGNOSIS Reduced mobility-other, Muscle Weakness (generalized), Difficulty walking-musculoskeleta l TREATMENT INTERVENTIONS Therapeutic Exercise (56423), Therapeutic Activity (27309), Gait Training (86809) Timed Code Treatment (minutes): 44 Skilled Treatment Time (minutes): 47 EXERCISE E (more content not included)... [facility] THERAPY NTon 08-11-2024 THERAPY NT HNO ID: [id number] Author: SARAH ENGLISH CCC-TRAVELIFT OPERATOR Service: Speech/Swallow Author Type: Speech Language Pathologist Type: Therapy (PT/OT/Speech/Resp) Filed: 08/13/2024 18:14 Note Text: Summary: Speech evaluation Speech Therapy SERVICE DATE: 08/11/2024 SERVICE TIME: 2028 ROOM: [address] Functional communication without limitations in: Cognition Communication deficits identified: Cognitive-Linguistic deficits RECOMMENDATIONS Diet Recommendations Swallow Strategy Recommendations Nursing Recommendations Instrumental Swallow Study Recommendations Recommended Consults DISCHARGE RECOMMENDATIONS Recommended Discharge Disposition: No further skilled speech therapy services anticipated CURRENT HOSPITAL COURSE Admit to skilled post with SDH HOME ENVIRONMENT / PRIOR FUNCTIONAL LEVEL Patient Lives With: Family (son lives in basement apartment) SUBJECTIVE THERAPY DIAGNOSIS Cognitive-Communicatio n Deficits TREATMENT INTERVENTIONS Speech Language Eval (20932) Skilled Treatment Time (minutes): 31 TRAINING AND EDUCATION PROVIDED IN Per flow sheet THERAPEUTIC SKILLS USED Per flowsheet OBJECTIVE Current Status Oral Hygiene: Clear, moist oral cavity Current Feeding Method: Oral COGNITION GOALS SPEECH / LANGUAGE: Patient will demonstrate knowledge of taught compensatory strategies for functional communication Speech Rehab Potential: Good Progress Toward Goals: Goal Met Patient /Caregiver Goals: Go Home ACUTE CARE TREATMENT PLAN ST Frequency: Discontinue Therapy Services Reasons Inpatient Therapy Services Discontinued: Goals met, No skilled needs Plan of Care Developed with: Patient Results and Recommendations Discussed With: Patient SIGNATURE: Sarah English [facility]-TRAVELIFT OPERATOR PATIENT NAME: Tamica Anderson DATE: August 11, 2024 TIME: 8:38 PM [facility] THERAPY NT HNO ID: [id number] Author: ANAY ALVAREZ PT Service: Physical Therapy Author Type: Assembler Hydraulic Backhoe Type: Therapy (PT/OT/Speech/Resp) Filed: 08/11/2024 16:20 Note Text: Attestation signed by Anay Alvarez PT at 08/11/2024 4:20 PM I reviewed and agree with the documentation corresponding to this therapy visit. SIGNATURE: Anay Alvarez PT DATE: August 11, 2024 TIME: 4:20 PM Physical Therapy Intermediate Facility Treatment Summary SERVICE DATE: 08/11/2024 SERVICE TIME: 1410 to 1435 ROOM: [place] [address] PT 6 Clicks Score: 20 DISCHARGE RECOMMENDATIONS Home PT Recommended Discharge Disposition Comments: Home PT pending ability of son to supervise patient initially due to fall risk Anticipated Discharge Needs: Family Training, Physical Assist at Home, Supervision at Home Recommended Discharge Equipment: To Be Determined (she reports B HRs are being put in for her) GOALS Patient will demonstrate progress with functional mobility to allow safe discharge to home with available support and/or physical assistance. Able to Perform HEP with: Independent Rolling with: Modified Independent Transfer Supine to/from Sit with: Modified Independent Transfer Sit to/from Stand with: Supervision Ambulate with: Stand By Assistance Distance: 150 Device: Wheeled Walker Ambulate Up and Down Steps with: Contact Guard Assistance Number of Steps: 3 Device: Rail ROM: BLE strength to at least 4/5 Car Transfer with: Contact Guard Assistance Goal: Improvement in 2 MWT by at least 40' at FWW Rehab Potential: Good Progress Toward Goals: Progressing as expected ASSESSMENT Response to Therapy Interventions: Good Participation in Activities Patient is building endurance less rest breaks, ambulating greater distances. Plan for Next Visit: Continue per POC PRECAUTIONS Bed/Chair Alarm, Fall Risk SDH, check BP with treatment, do not bend over at the waist to lift heavy objects, may bathe and shower, may walk with a walker, no prolonged bedrest > 8 hours, puree diet/ thin liquids SUBJECTIVE patient reports fatigued this PM agareeable to amb and bed ex. FUNCTIONAL STATUS Bed Mobility Rolling: Modified Independent Supine To Sit: Modified Independent Sit to Supine: Modified Independent Scooting: Modified Independent Transfers Sit To Stand: Contact Guard Assistance Stand To Sit: Contact Guard Assistance Bed to Chair Contact Guard Assistance Bed To Chair Transfer Type: Stepping Bed To Chair Transfer Equipment: Wheeled Walker Gait Contact Guard Assistance Gait Device: Wheeled Walker Gait Distance (feet): 100 ft Stairs Contact Guard Assistance Stairs Device: Rail Number of Stairs: 4 CURRENT HOSPITAL COURSE Patient is an 84 year old female presenting from [facility] as a transfer from [place] following fall on 08/01. CT/ XR show acute subdural hematoma involving the lower anterior interhemispheric fissue which measures 8 mm in maximum width. Small volume of an adjacent acute subarachnoid hemorrhage in anterior inferior frontal lobes. Right frontal scalp hematoma/ contusion. Nasal septal fractures with suspected anterior nasal septal hematoma, and upper lip laceration. Admitted to ICU for brain bleed, and neurosurgery recommended nonoperative treatment. Nasal fracture evaluated by plastics who also suggested nonoperative management. Patient now presents below baseline level of function, and can benefit from skilled services to faciltiate return to [place]. Relevant Past Medical History: HTN, DM2, and Hyperlipidemia HOME LIVING Patient Lives With: Family (son lives in basement apartment) Assistance Available: Part-Time (son works full time paramedic in [place]) Entry To Home: Stairs, With Rail Number Of Stairs Into Home: 3 Number Of Stairs To Bed/Bath: 0 Tub/Shower Type: walk in shower Laundry: son can assist with Equipment Owned: Walker- Wheeled, Wheelchair- Manual, Pulse Ox, BP Monitor, Cane, Lift Chair (sleeps in regular flat bed) PRIOR FUNCTIONAL LEVEL Within Functional Limits, History of Falls, Required Assistance Assistance Required With: Meals, Transportation Patient was IND prior to falling. Ambulated at home with a wheeled-walker but is not driving. Patient reports to PT that she cooks, to OT she said her son cooks. she cleans, but son has taken over the majority of the IADLs. History of multiple falls with injuries. THERAPY DIAGNOSIS Reduced mobility-other, Muscle Weakness (generalized), Difficulty walking-musculoskeleta l TREATMENT INTERVENTIONS Therapeutic Exercise (77365), Therapeutic Activity (84816), Gait Training (75688) Timed Code Treatment (minutes): 25 Skilled Treatment Time (minutes): 25 EXERCISE Exercises Exercise: supine and seated ex. glut,guad, AP, HS KARIE HS (more content not included)... [facility] THERAPY NT HNO ID: [id number] Author: SANNA HERNANDEZ, PT, DPT Service: Physical Therapy Author Type: Physical Therapist Type: Therapy (PT/OT/Speech/Resp) Filed: 08/11/2024 09:36 Note Text: Physical Therapy Intermediate Facility Treatment Summary SERVICE DATE: 08/11/2024 SERVICE TIME: 851 to 930 ROOM: [place] [address] PT 6 Clicks Score: 20 DISCHARGE RECOMMENDATIONS Home PT Recommended Discharge Disposition Comments: Home PT pending ability of son to supervise patient initially due to fall risk Anticipated Discharge Needs: Family Training, Physical Assist at Home, Supervision at Home Recommended Discharge Equipment: To Be Determined (she reports B HRs are being put in for her) GOALS Patient will demonstrate progress with functional mobility to allow safe discharge to home with available support and/or physical assistance. Able to Perform HEP with: Independent Rolling with: Modified Independent Transfer Supine to/from Sit with: Modified Independent Transfer Sit to/from Stand with: Supervision Ambulate with: Stand By Assistance Distance: 150 Device: Wheeled Walker Ambulate Up and Down Steps with: Contact Guard Assistance Number of Steps: 3 Device: Rail ROM: BLE strength to at least 4/5 Car Transfer with: Contact Guard Assistance Goal: Improvement in 2 MWT by at least 40' at FWW Rehab Potential: Good Progress Toward Goals: Progressing as expected ASSESSMENT Response to Therapy Interventions: Good Participation in Activities Patient is pleasant and tolerated session well, decreased steadying assist from therapist as session progressed. Patient can benefit from continued balance and strength training. Plan for Next Visit: Gait Training, Stair Training PRECAUTIONS Bed/Chair Alarm, Fall Risk SDH, check BP with treatment, do not bend over at the waist to lift heavy objects, may bathe and shower, may walk with a walker, no prolonged bedrest > 8 hours, puree diet/ thin liquids SUBJECTIVE Patient laying in bed upon entering room, agreeable to therapy session. FUNCTIONAL STATUS most recent functional status Bed Mobility Rolling: Modified Independent Supine To Sit: Modified Independent Sit to Supine: Modified Independent Scooting: Modified Independent Transfers Sit To Stand: Contact Guard Assistance Stand To Sit: Contact Guard Assistance Bed to Chair Contact Guard Assistance Bed To Chair Transfer Type: Stepping Bed To Chair Transfer Equipment: Wheeled Walker Gait Contact Guard Assistance, Stand By Assistance (CGA-SBA with FWW) Gait Device: Wheeled Walker General Deviations/Observation s: Flexed trunk posture, Jaquan decreased, Non-functional gait speed, Shuffling Gait Gait Distance (feet): 175', 120' Stairs Contact Guard Assistance Stairs Device: Rail (B HR) Number of Stairs: 4 CURRENT HOSPITAL COURSE Patient is an 84 year old female presenting from [facility] as a transfer from [place] following fall on 08/01. CT/ XR show acute subdural hematoma involving the lower anterior interhemispheric fissue which measures 8 mm in maximum width. Small volume of an adjacent acute subarachnoid hemorrhage in anterior inferior frontal lobes. Right frontal scalp hematoma/ contusion. Nasal septal fractures with suspected anterior nasal septal hematoma, and upper lip laceration. Admitted to ICU for brain bleed, and neurosurgery recommended nonoperative treatment. Nasal fracture evaluated by plastics who also suggested nonoperative management. Patient now presents below baseline level of function, and can benefit from skilled services to faciltiate return to [facility]. Relevant Past Medical History: HTN, DM2, and Hyperlipidemia HOME LIVING Patient Lives With: Family (son lives in basement apartment) Assistance Available: Part-Time (son works full time paramedic in [place]) Entry To Home: Stairs, With Rail Number Of Stairs Into Home: 3 Number Of Stairs To Bed/Bath: 0 Tub/Shower Type: walk in shower Laundry: son can assist with Equipment Owned: Walker- Wheeled, Wheelchair- Manual, Pulse Ox, BP Monitor, Cane, Lift Chair (sleeps in regular flat bed) PRIOR FUNCTIONAL LEVEL Within Functional Limits, History of Falls, Required Assistance Assistance Required With: Meals, Transportation Patient was IND prior to falling. Ambulated at home with a wheeled-walker but is not driving. Patient reports to PT that she cooks, to OT she said her son cooks. she cleans, but son has taken over the majority of the IADLs. History of multiple falls with injuries. THERAPY DIAGNOSIS Reduced mobility-other, Muscle Weakness (generalized), Difficulty walking-musculoskeleta l TREATMENT INTERVENTIONS Therapeutic Exercise (44268), Gait Training (91393) Timed Code Treatment (minutes): 39 Skilled Treatment Time (minutes): 39 EXERCISE Exercises Exercise: blocked practice sit<>Stand transfers completed from w/c, CGA from therapist 1x5 with cues for eccentric control during sitting. patient com (more content not included)... Normal [facility] Basic metabolic 2000 panelon 08-10-2024 Anion gap [Moles/Vol] 11 mmol/L Normal 8-15 [facility] Comment on above: Order Comment: Speci men Type: BLOOD SPECIMENOrdering Facility: [facility] Address: [address] [place] [address] Performed By: #### 2 4321-2 ####[facility] LABCLIA [id number] [place] [id number] [place] Calcium [Mass/Vol] 9.5 mg/dL Normal 8.5-10.2 [facility] Comment on above: Order Comment: Speci men Type: BLOOD SPECIMENOrdering Facility: [facility] Address: [address] [place] [address] Performed By: #### 2 4321-2 ####[facility] LABCLIA [id number] [place] [address] [place] Chloride [Moles/Vol] 101 mmol/L Normal 98-107 [facility] Comment on above: Order Comment: Speci men Type: BLOOD SPECIMENOrdering Facility: [facility] Address: [address] [place] [address] Performed By: #### 2 4321-2 ####[facility] LABCLIA [id number] [place] [address] [place] CO2 [Moles/Vol] 31 mmol/L High 22-30 [facility] Comment on above: Order Comment: Speci men Type: BLOOD SPECIMENOrdering Facility: [facility] Address: [address] [place] [address] Performed By: #### 2 4321-2 ####[facility] LABCLIA [id number] [place] [address] [place] Creatinine [Mass/Vol] 0.76 mg/dL Normal 0.58-0.96 [facility] Comment on above: Order Comment: Speci men Type: BLOOD SPECIMENOrdering Facility: [facility] Address: [address] [place] [address] Performed By: #### 2 4321-2 ####[facility] LABCLIA [id number] [place] [address] [facility] Creatinine and Glomerular filtration rate.predicted panel (S/P/Bld) 78 mL/min/1.73m??? Normal >=60 [facility] Comment on above: Order Comment: Speci men Type: BLOOD SPECIMENOrdering Facility: [facility] Address: [address] [place] [address] Result Comment: Venita mated Glomerular Filtration Rate (eGFR) is calculated using the 2020 CKD-EPI creatinine equation. This equation utilizes serum creatinine, sex, and age as parameters. The creatinine assay has traceable calibration to isotope dilution-mass spectrometry. Refer to KDIGO guidelines for clinical interpretation. In patients with unstable renal function, e.g. those with acute kidney injury, the eGFR may not accurately reflect actual GFR. Performed By: #### 2 4321-2 ####[facility]I LABCLIA [id number] [place] [address] [place] Glucose [Mass/Vol] 115 mg/dL High 74-99 [facility] Comment on above: Order Comment: Speci men Type: BLOOD SPECIMENOrdering Facility: [facility] Address: [address] [place], [place] [id number] Result Comment: The British Diabetes Association (ADA) provides guidance for cutoff values for fasting glucose and random glucose. The ADA defines fasting as no caloric intake for at least 8 hours. Fasting plasma glucose results between 100 to 125 mg/dL indicate increased risk for diabetes (prediabetes). Fasting plasma glucose results greater than or equal to 126 mg/dL meet the criteria for diagnosis of diabetes. In the absence of unequivocal hyperglycemia, results should be confirmed by repeat testing. In a patient with classic symptoms of hyperglycemia or hyperglycemic crisis, random plasma glucose results greater than or equal to 200 mg/dL meet the criteria for diagnosis of diabetes. Reference: Standards of Medical Care in Diabetes 2016, British Diabetes Association. Diabetes Care. 2016.39(Suppl 1). Performed By: #### 2 4321-2 ####[facility] LABCLIA [id number] [place] [address] [place] Potassium [Moles/Vol] 3.2 mmol/L Low 3.7-5.1 [facility] Comment on above: Order Comment: Patria hamida Type: BLOOD SPECIMENOrdering Facility: [facility] Address: [address] [place] [address] Performed By: #### 2 4321-2 ####[facility] LABCLIA [id number] [place] [address] [place] Sodium [Moles/Vol] 143 mmol/L Normal 136-144 [facility] Comment on above: Order Comment: Patria men Type: BLOOD SPECIMENOrdering Facility: [facility] Address: [address] [place], [place] [address] Performed By: #### 2 4321-2 ####[facility] LABCLIA [id number] [place] [address] [place] Urea nitrogen [Mass/Vol] 20 mg/dL Normal 7-21 [facility] Comment on above: Order Comment: Speci men Type: BLOOD SPECIMENOrdering Facility: [facility] Address: [address] [place] [address] Performed By: #### 2 4321-2 ####[facility] LABCLIA [id number] [place] [address] [facility] CBC panel Auto (Bld)on 08-10 Erythrocyte distribution width (RBC) [Ratio] 13.3 % Normal 11.5-15.0 [facility] Comment on above: Order Comment: Speci men Type: BLOOD SPECIMENOrdering Facility: [facility] Address: [address] [place] [address] Performed By: #### 5 8410-2 ####[facility] LABCLIA [id number] [place] [address] [facility] Hematocrit (Bld) [Volume fraction] 35.5 % Low 36.0-46.0 [facility] Comment on above: Order Comment: Speci men Type: BLOOD SPECIMENOrdering Facility: [facility] Address: [address] [place] [address] Performed By: #### 5 8410-2 ####[facility] LABCLIA [id number] [place] [address] [facility] Hemoglobin (Bld) [Mass/Vol] 11.4 g/dL Low 11.5-15.5 [facility] Comment on above: Order Comment: Speci men Type: BLOOD SPECIMENOrdering Facility: [facility] Address: [address] [place] [address] Performed By: #### 5 8410-2 ####[facility] LABCLIA [id number] [place] [address] [place] MCH (RBC) [Entitic mass] 30.1 pg Normal 26.0-34.0 [facility] Comment on above: Order Comment: Speci men Type: BLOOD SPECIMENOrdering Facility: [facility] Address: [address] [place] [address] Performed By: #### 5 8410-2 ####[facility] LABCLIA [id number] [place] [address] [place] MCHC (RBC) [Mass/Vol] 32.1 g/dL Normal 30.5-36.0 [facility] Comment on above: Order Comment: Speci men Type: BLOOD SPECIMENOrdering Facility: [facility] Address: [address] [place] [address] Performed By: #### 5 8410-2 ####[facility] LABCLIA [id number] [place] [address] [facility] MCV (RBC) [Entitic vol] 93.7 fL Normal 80.0-100.0 [place] Comment on above: Order Comment: Speci men Type: BLOOD SPECIMENOrdering Facility: [facility] Address: [address] [place] [address] Performed By: #### 5 8410-2 ####[facility] LABCLIA [id number] [facility] [place] [address] [facility] Platelet mean volume (Bld) [Entitic vol] 9.6 fL Normal 9.0-12.7 [facility] Comment on above: Order Comment: Speci men Type: BLOOD SPECIMENOrdering Facility: [facility] Address: [address] [place] [address] Performed By: #### 5 8410-2 ####[facility] LABCLIA [id number] [facility] [place] [address] [facility] Platelets (Bld) [#/Vol] 215 10*3/uL Normal 150-400 [facility] Comment on above: Order Comment: Speci men Type: BLOOD SPECIMENOrdering Facility: [facility] Address: [address] [place] [address] Performed By: #### 5 8410-2 ####[facility] LABCLIA [id number] [facility] [place] [address] [place] RBC (Bld) [#/Vol] 3.79 10*6/uL Low 3.90-5.20 [facility] Comment on above: Order Comment: Speci men Type: BLOOD SPECIMENOrdering Facility: [facility] Address: [address] [place], [place] [address] Performed By: #### 5 8410-2 ####[facility] LABSANJAY [id number] [place] [address] [facility] WBC (Bld) [#/Vol] 7.48 10*3/uL Normal 3.70-11.00 [facility] Comment on above: Order Comment: Speci men Type: BLOOD SPECIMENOrdering Facility: [facility] Address: [address] [place] [address] Performed By: #### 5 8410-2 ####[facility] LABCLIA [id number] [place] [address] [facility] THERAPY NTon 08-10-2024 THERAPY NT HNO ID: [id number] Author: PAULETTE BUSBY OTR/Catherine Service: Occupational Therapy Author Type: Occupational Therapist Type: Therapy (PT/OT/Speech/Resp) Filed: 08/10/2024 14:28 Note Text: Occupational Therapy Intermediate Facility Treatment Summary SERVICE DATE: 08/10/2024 SERVICE TIME: 1328 to 1423 ROOM: [place] [address] OT 6 Clicks Score: 18 DISCHARGE RECOMMENDATIONS Home OT Anticipated Discharge Needs: Family Training, Physical Assist at Home, Supervision at Home Recommended Discharge Equipment: Other: See Comment (possibly 3 in 1 commode) GOALS Patient will demonstrate progress to optimize self-care activities, cognitive and/or coping to maximize function upon discharge. Upper Body Bathing with: Modified Independent Upper Body Dressing with: Independent Lower Body Bathing with: Stand By Assistance Lower Body Dressing with: Stand By Assistance Toilet Hygiene with: Supervision Chair Transfer with: Stand By Assistance Toilet Transfer with: Stand By Assistance Shower Transfer with: Stand By Assistance Kitchen Mobility Tasks with: Stand By Assistance Demonstrate Competence with Education with: Stand By Assistance Progress Toward Goals: Progressing as expected Rehab Potential: Good ASSESSMENT Response to Therapy Interventions: Good Participation in Activities, Multiple Ongoing Medical Issues Pt completing shower level ADL this date; use of HHSH, shower chair and grab bars for transfers utilized; pt demo'ing good ability to complete and good activity tolerance; would benefit from LB dresssing tasks in upcoming sessions Plan for Next Visit: Continue per POC PRECAUTIONS Bed/Chair Alarm, Fall Risk SDH, check BP with treatment, do not bend over at the waist to lift heavy objects, may bathe and shower, may walk with a walker, no prolonged bedrest > 8 hours, puree diet/ thin liquids SUBJECTIVE Pt agreeable to shower FUNCTIONAL STATUS Activities of Daily Living Assist Level Additional Information Feeding Supervision, Additional Information Grooming Set Up Bathing Upper Body Modified Independent seated with use of HHSH Bathing Lower Body Minimal Assistance seated with use of HHSH; did not stand d/t safety concerns and to conserve energy; would need assist for thoroughness of posterior Dressing Upper Body Set Up Dressing Lower Body Maximal Assistance Toileting Minimal Assistance, Additional Information pt completing redd hygiene and clothing management with increased time/effort; unilateral stabiliation Instrumental Activities of Daily Living Assist Level Additional Information Meal/Beverage Prep Total Assistance Cleaning Total Assistance Laundry Total Assistance Medication Management with Strategies Total Assistance Mobility Assist Level Additional Information Bed Mobility Supine To Sit: Contact Guard Assistance Sit To Supine: Contact Guard Assistance Sit to Stand Contact Guard Assistance Stand to Sit Contact Guard Assistance Bed to Chair Contact Guard Assistance Bed To Chair Transfer Type: Stepping Bed To Chair Transfer Equipment: Wheeled Walker, Gait Belt Toilet/Commode Stand By Assistance BSC frame over toilet Shower Contact Guard Assistance Functional Mobility CURRENT HOSPITAL COURSE Patient is an 84 year old female presenting from [facility] as a transfer from [place] following fall on 08/01. CT/ XR show acute subdural hematoma involving the lower anterior interhemispheric fissue which measures 8 mm in maximum width. Small volume of an adjacent acute subarachnoid hemorrhage in anterior inferior frontal lobes. Right frontal scalp hematoma/ contusion. Nasal septal fractures with suspected anterior nasal septal hematoma, and upper lip laceration. Admitted to ICU for brain bleed, and neurosurgery recommended nonoperative treatment. Nasal fracture evaluated by plastics who also suggested nonoperative management. Patient now presents below baseline level of function, and can benefit from skilled services to faciltiate return to [facility]. Relevant Past Medical History: HTN, DM2, and Hyperlipidemia HOME LIVING Patient Lives With: Family (son lives in basement apartment) Assistance Available: Part-Time (son works full time paramedic in [place]) Entry To Home: Stairs, With Rail Number Of Stairs Into Home: 3 Number Of Stairs To Bed/Bath: 0 Tub/Shower Type: walk in shower Laundry: son can assist with Equipment Owned: Walker- Wheeled, Wheelchair- Manual, Pulse Ox, BP Monitor, Cane, Lift Chair (sleeps in regular flat bed) PRIOR FUNCTIONAL LEVEL Within Functional Limits, History of Falls, Required Assistance Assistance Required With: Meals, Transportation Patient was IND prior to falling. Ambulated at home with a wheeled-walker but is not driving. Patient reports to PT that she cooks, to OT she said her son cooks. she cleans, but son has taken over the majority of the IADLs. History of multiple falls with injuries. Baseline Cognition: Orien (more content not included)... Normal [facility] THERAPY NT HNO ID: [id number] Author: ANAY ALVAREZ PT Service: Physical Therapy Author Type: [employer] Type: Therapy (PT/OT/Speech/Resp) Filed: 08/11/2024 16:18 Note Text: Attestation signed by Anay Alvarez, PT at 08/11/2024 4:18 PM I reviewed and agree with the documentation corresponding to this therapy visit. SIGNATURE: Anay Alvarez PT DATE: August 11, 2024 TIME: 4:18 PM Physical Therapy Intermediate Facility Treatment Summary SERVICE DATE: 08/10/2024 SERVICE TIME: 0800 to 0855 ROOM: [place] [address] PT 6 Clicks Score: 20 DISCHARGE RECOMMENDATIONS Home PT Recommended Discharge Disposition Comments: Home PT pending ability of son to supervise patient initially due to fall risk Anticipated Discharge Needs: Family Training, Physical Assist at Home, Supervision at Home Recommended Discharge Equipment: To Be Determined (she reports B HRs are being put in for her) GOALS Patient will demonstrate progress with functional mobility to allow safe discharge to home with available support and/or physical assistance. Able to Perform HEP with: Independent Rolling with: Modified Independent Transfer Supine to/from Sit with: Modified Independent Transfer Sit to/from Stand with: Supervision Ambulate with: Stand By Assistance Distance: 150 Device: Wheeled Walker Ambulate Up and Down Steps with: Contact Guard Assistance Number of Steps: 3 Device: Rail ROM: BLE strength to at least 4/5 Car Transfer with: Contact Guard Assistance Goal: Improvement in 2 MWT by at least 40' at FWW Rehab Potential: Good Progress Toward Goals: Progressing as expected ASSESSMENT Response to Therapy Interventions: Good Participation in Activities good effort, No LOB, ,endurance improving able to work without rest breaks Plan for Next Visit: Continue per POC PRECAUTIONS Bed/Chair Alarm, Fall Risk SDH, check BP with treatment, do not bend over at the waist to lift heavy objects, may bathe and shower, may walk with a walker, no prolonged bedrest > 8 hours, puree diet/ thin liquids SUBJECTIVE Patient reports fatique and her mouth is sore ice chips help her mouth soreness. FUNCTIONAL STATUS Bed Mobility Rolling: Modified Independent Supine To Sit: Modified Independent HOB elevated used UE to assist to seated EOB Sit to Supine: Modified Independent Scooting: Modified Independent Transfers Sit To Stand: Contact Guard Assistance Stand To Sit: Contact Guard Assistance Bed to Chair Contact Guard Assistance Bed To Chair Transfer Type: Stepping Bed To Chair Transfer Equipment: Gait Belt, Wheeled Walker Gait Contact Guard Assistance Gait Device: Wheeled Walker General Deviations/Observation s: Flexed trunk posture, Jaquan decreased, Non-functional gait speed Gait Distance (feet): 100 ft + Stairs Contact Guard Assistance Stairs Device: Rail Number of Stairs: 4 CURRENT HOSPITAL COURSE Patient is an 84 year old female presenting from [facility] as a transfer from [place] following fall on 08/01. CT/ XR show acute subdural hematoma involving the lower anterior interhemispheric fissue which measures 8 mm in maximum width. Small volume of an adjacent acute subarachnoid hemorrhage in anterior inferior frontal lobes. Right frontal scalp hematoma/ contusion. Nasal septal fractures with suspected anterior nasal septal hematoma, and upper lip laceration. Admitted to ICU for brain bleed, and neurosurgery recommended nonoperative treatment. Nasal fracture evaluated by plastics who also suggested nonoperative management. Patient now presents below baseline level of function, and can benefit from skilled services to faciltiate return to [place]. Relevant Past Medical History: HTN, DM2, and Hyperlipidemia HOME LIVING Patient Lives With: Family (son lives in basement apartment) Assistance Available: Part-Time (son works full time paramedic in [place]) Entry To Home: Stairs, With Rail Number Of Stairs Into Home: 3 Number Of Stairs To Bed/Bath: 0 Tub/Shower Type: walk in shower Laundry: son can assist with Equipment Owned: Walker- Wheeled, Wheelchair- Manual, Pulse Ox, BP Monitor, Cane, Lift Chair (sleeps in regular flat bed) PRIOR FUNCTIONAL LEVEL Within Functional Limits, History of Falls, Required Assistance Assistance Required With: Meals, Transportation Patient was IND prior to falling. Ambulated at home with a wheeled-walker but is not driving. Patient reports to PT that she cooks, to OT she said her son cooks. she cleans, but son has taken over the majority of the IADLs. History of multiple falls with injuries. THERAPY DIAGNOSIS Reduced mobility-other, Muscle Weakness (generalized), Difficulty walking-musculoskeleta l TREATMENT INTERVENTIONS Therapeutic Exercise (21378), Therapeutic Activity (90815), Ga (more content not included)... Normal [facility] THERAPY NTon 08-09-2024 THERAPY NT HNO ID: [id number] Author: ANAY ALVAREZ, PT Service: Physical Therapy Author Type: Physical Therapist Type: Therapy (PT/OT/Speech/Resp) Filed: 08/09/2024 12:53 Note Text: Physical Therapy Intermediate Facility Treatment Summary SERVICE DATE: 08/09/2024 SERVICE TIME: 1133 to 1215 ROOM: [place] [address] PT 6 Clicks Score: 19 DISCHARGE RECOMMENDATIONS Home PT Recommended Discharge Disposition Comments: Home PT pending ability of son to supervise patient initially due to fall risk Anticipated Discharge Needs: Family Training, Physical Assist at Home, Supervision at Home Recommended Discharge Equipment: To Be Determined (she reports B HRs are being put in for her) GOALS Patient will demonstrate progress with functional mobility to allow safe discharge to home with available support and/or physical assistance. Able to Perform HEP with: Independent Rolling with: Modified Independent Transfer Supine to/from Sit with: Modified Independent Transfer Sit to/from Stand with: Supervision Ambulate with: Stand By Assistance Distance: 150 Device: Wheeled Walker Ambulate Up and Down Steps with: Contact Guard Assistance Number of Steps: 3 Device: Rail ROM: BLE strength to at least 4/5 Car Transfer with: Contact Guard Assistance Goal: Improvement in 2 MWT by at least 40' at FWW Rehab Potential: Good Progress Toward Goals: Progressing as expected ASSESSMENT Response to Therapy Interventions: Good Participation in Activities, Notable Progression with Functional Activities/Skills Improved standing balance noted with shoes on. Marked imporvement in bed mobility noted. Plan for Next Visit: Gait Training, Standing Balance, Exercise Instruction/Handout PRECAUTIONS Bed/Chair Alarm, Fall Risk SDH, check BP with treatment, do not bend over at the waist to lift heavy objects, may bathe and shower, may walk with a walker, no prolonged bedrest > 8 hours, puree diet/ thin liquids SUBJECTIVE reports she lays flat at home - no pillow. FUNCTIONAL STATUS Bed Mobility Rolling: Modified Independent, Additional Information without use of rail Supine To Sit: Modified Independent HOB flat - no rails Sit to Supine: Modified Independent HOB flat - no rails Scooting: Modified Independent Transfers Sit To Stand: Contact Guard Assistance Stand To Sit: Contact Guard Assistance Bed to Chair Contact Guard Assistance Bed To Chair Transfer Type: Stepping Bed To Chair Transfer Equipment: Gait Belt, Wheeled Walker Gait Contact Guard Assistance Gait Device: Wheeled Walker General Deviations/Observation s: Flexed trunk posture, Non-functional gait speed Gait Distance (feet): 140 2x Stairs Additional Information CURRENT HOSPITAL COURSE Patient is an 84 year old female presenting from [facility] as a transfer from [place] following fall on 08/01. CT/ XR show acute subdural hematoma involving the lower anterior interhemispheric fissue which measures 8 mm in maximum width. Small volume of an adjacent acute subarachnoid hemorrhage in anterior inferior frontal lobes. Right frontal scalp hematoma/ contusion. Nasal septal fractures with suspected anterior nasal septal hematoma, and upper lip laceration. Admitted to ICU for brain bleed, and neurosurgery recommended nonoperative treatment. Nasal fracture evaluated by plastics who also suggested nonoperative management. Patient now presents below baseline level of function, and can benefit from skilled services to faciltiate return to [facility]. Relevant Past Medical History: HTN, DM2, and Hyperlipidemia HOME LIVING Patient Lives With: Family (son lives in basement apartment) Assistance Available: Part-Time (son works full time paramedic in [employer]) Entry To Home: Stairs, With Rail Number Of Stairs Into Home: 3 Number Of Stairs To Bed/Bath: 0 Tub/Shower Type: walk in shower Laundry: son can assist with Equipment Owned: Walker- Wheeled, Wheelchair- Manual, Pulse Ox, BP Monitor, Cane, Lift Chair (sleeps in regular flat bed) PRIOR FUNCTIONAL LEVEL Within Functional Limits, History of Falls, Required Assistance Assistance Required With: Meals, Transportation Patient was IND prior to falling. Ambulated at home with a wheeled-walker but is not driving. Patient reports to PT that she cooks, to OT she said her son cooks. she cleans, but son has taken over the majority of the IADLs. History of multiple falls with injuries. THERAPY DIAGNOSIS Reduced mobility-other, Muscle Weakness (generalized), Difficulty walking-musculoskeleta l TREATMENT INTERVENTIONS Gait Training (40057), Neuromuscular Reeducation (65052), Therapeutic Activity (59673) Timed Code Treatment (minutes): 40 Skilled Treatment Time (minutes): 40 EXERCISE Exercises Exercise: standing balance ex with neutral stance posture, arm swings, hands to shoulders, hands to head, head and trunk turns and modified x1 viewing all without UE support with shoes on. TRAINING AND E (more content not included)... [facility] THERAPY NTon 08-08-2024 THERAPY NT HNO ID: [id number] Author: LIGIA MOONEY PTA Service: Physical Therapy Author Type: Assembler Hydraulic Backhoe Type: Therapy (PT/OT/Speech/Resp) Filed: 08/08/2024 12:40 Note Text: Attestation signed by Viktoriya Warner PT at 08/08/2024 2:17 PM I reviewed and agree with the documentation corresponding to this therapy visit. SIGNATURE: Viktoriya Warner, PT DATE: August 08, 2024 TIME: 2:17 PM Physical Therapy Intermediate Facility Treatment Summary SERVICE DATE: 08/08/2024 SERVICE TIME: 1128 to 1155 ROOM: [place] [address] PT 6 Clicks Score: 15 DISCHARGE RECOMMENDATIONS Home PT Recommended Discharge Disposition Comments: Home PT pending ability of son to supervise patient initially due to fall risk Anticipated Discharge Needs: Family Training, Physical Assist at Home, Supervision at Home Recommended Discharge Equipment: To Be Determined (she reports B HRs are being put in for her) GOALS Patient will demonstrate progress with functional mobility to allow safe discharge to home with available support and/or physical assistance. Able to Perform HEP with: Independent Rolling with: Modified Independent Transfer Supine to/from Sit with: Modified Independent Transfer Sit to/from Stand with: Supervision Ambulate with: Stand By Assistance Distance: 150 Device: Wheeled Walker Ambulate Up and Down Steps with: Contact Guard Assistance Number of Steps: 3 Device: Rail ROM: BLE strength to at least 4/5 Car Transfer with: Contact Guard Assistance Goal: Improvement in 2 MWT by at least 40' at FWW Rehab Potential: Good Progress Toward Goals: Progressing as expected ASSESSMENT Response to Therapy Interventions: Good Participation in Activities patient with static standing balance deficit with narrow base of support Plan for Next Visit: Gait Training, Standing Balance, Exercise Instruction/Handout PRECAUTIONS Bed/Chair Alarm, Fall Risk SDH, check BP with treatment, do not bend over at the waist to lift heavy objects, may bathe and shower, may walk with a walker, no prolonged bedrest > 8 hours, puree diet/ thin liquids SUBJECTIVE patient reports general fatigue , but willing to walk FUNCTIONAL STATUS Bed Mobility Rolling: Minimal Assistance Supine To Sit: Maximal Assistance Sit to Supine: Minimal Assistance, Additional Information Scooting: Contact Guard Assistance Transfers Sit To Stand: Contact Guard Assistance Stand To Sit: Contact Guard Assistance Bed to Chair Contact Guard Assistance Bed To Chair Transfer Type: Stepping Bed To Chair Transfer Equipment: Gait Belt, Wheeled Walker Gait Contact Guard Assistance Gait Device: Wheeled Walker General Deviations/Observation s: Flexed trunk posture Gait Distance (feet): 40 x 2 Stairs Additional Information CURRENT HOSPITAL COURSE Patient is an 84 year old female presenting from [facility] as a transfer from [place] following fall on 08/01. CT/ XR show acute subdural hematoma involving the lower anterior interhemispheric fissue which measures 8 mm in maximum width. Small volume of an adjacent acute subarachnoid hemorrhage in anterior inferior frontal lobes. Right frontal scalp hematoma/ contusion. Nasal septal fractures with suspected anterior nasal septal hematoma, and upper lip laceration. Admitted to ICU for brain bleed, and neurosurgery recommended nonoperative treatment. Nasal fracture evaluated by plastics who also suggested nonoperative management. Patient now presents below baseline level of function, and can benefit from skilled services to faciltiate return to [facility]. Relevant Past Medical History: HTN, DM2, and Hyperlipidemia HOME LIVING Patient Lives With: Family (son lives in basement apartment) Assistance Available: Part-Time (son works full time paramedic in [place]) Entry To Home: Stairs, With Rail Number Of Stairs Into Home: 3 Number Of Stairs To Bed/Bath: 0 Tub/Shower Type: walk in shower Laundry: son can assist with Equipment Owned: Walker- Wheeled, Wheelchair- Manual, Pulse Ox, BP Monitor, Cane, Lift Chair (sleeps in regular flat bed) PRIOR FUNCTIONAL LEVEL Within Functional Limits, History of Falls, Required Assistance Assistance Required With: Meals, Transportation Patient was IND prior to falling. Ambulated at home with a wheeled-walker but is not driving. Patient reports to PT that she cooks, to OT she said her son cooks. she cleans, but son has taken over the majority of the IADLs. History of multiple falls with injuries. THERAPY DIAGNOSIS Reduced mobility-other, Muscle Weakness (generalized), Difficulty walking-musculoskeleta l TREATMENT INTERVENTIONS Therapeutic Activity (12632), Therapeutic Exercise (97681), Gait Training (28491) Timed Code Treatment (minutes): 27 Skilled Treatment Time (minutes): 27 EXER (more content not included)... [facility] ALLIED HEALTHon 08-07-2024 ALLIED HEALTH HNO ID: [id number] Author: MICHELLE BARILLAS Chaplain Service: Spiritual Care Author Type: Brand Inspector Type: Allied Health Filed: 08/07/2024 09:19 Note Text: SPIRITUAL CARE PROGRESS NOTE SERVICE DATE: 08/07/2024 SERVICE TIME: 9:10am attempted to call and offer emotional support; there was no answer To contact the Spiritual Care Department: Please call [phone]. SIGNATURE: Chaplain Surekha PATIENT NAME: Tamica Anderson DATE: August 07, 2024 TIME: 9:18 AM PAGER/CONTACT #: [phone] [facility] HISTORY PHYSICALon HISTORY PHYSICAL HNO ID: [id number] Author: ALEKSEY MORE MD Service: Hospital Medicine Author Type: Nurse Practitioner Type: H&P Filed: 08/14/2024 22:48 Note Text: Attestation signed by Aleksey More MD at 08/14/2024 10:48 PM Attending Note I have personally reviewed the PA/HIRED HELP note. Agree with above assessment and plan. Other additions or changes: None SIGNATURE: Aleksey More MD DATE: August 14, 2024 TIME: 10:48 PM DEPARTMENT OF HOSPITAL MEDICINE HISTORY AND PHYSICAL EXAM SERVICE DATE: 08/07/2024 SERVICE TIME: 10:15 AM Primary Care Physician: Dominique Lang MD, MD NIGHT AND WEEKEND COVERAGE: [facility] 7 AM - 7 PM - Please use [id number] for overnight issues Subjective CHIEF COMPLAINT: aftercare HPI: This is a 84 year old female PM of recurrent falls, CAD s/p PCI w/stents(2001) on ASA, CABG (2001) HTN, HLD, T2DM, who presents to [facility] following an admission at [facility] after a traumatic fall. Patient fell while using her walker her head hit the floor was admitted to [facility] for trauma evaluation due to findings of subarachnoid hemorrhage, subdural hemorrhage, nasal bone fractures, and lip laceration. Seen by neurosurgery who felt the subcu arachnoid hemorrhage was nonoperative repeat scans were stable with the patient was started on Keppra x 7 days for seizure prophylaxis. Seen by ENT and plastic surgery who felt nasal bone fractures were nonoperative she needed to follow-up with plastic surgery outpatient she should be on nasal and sinus precautions. Lip laceration was sutured with dissolvable sutures. Seen by speech therapy who recommended pureed diet due to swelling and poor denture fitting due to swelling in mouth. 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 PT and OT recommended fpc facility it is noted that the patient has had several falls in the last year. Patient admitted to [facility] for further care. PAST MEDICAL HISTORY Diagnosis Date Anxiety 08/03/2024 Controlled type 2 diabetes mellitus without complication, without long-term current use of insulin (HCC) 08/02/2024 Hyperlipidemia 08/02/2024 No past surgical history on file. No family history on file. Social History Tobacco Use Smoking status: Never Smokeless tobacco: Never Substance Use Topics Alcohol use: Never Drug use: Never PRIOR TO ADMISSION MEDICATIONS: Prior to Admission Medications Prescriptions Last Dose Informant Patient Reported? Taking? CO Q-10 200 mg cap Yes Yes Sig: Take 200 mg by mouth once daily. acetaminophen (ARTHRITIS PAIN RELIEF) 650 mg CR tablet Yes Yes Sig: Take 650 mg by mouth every 8 hours as needed for pain. bacitracin 500 unit/gram ointment No Yes Sig: Apply to affected area two times a day for 7 days. busPIRone (BUSPAR) 10 mg tablet Yes Yes Sig: Take 10 mg by mouth three times a day. calcium carbonate/vitamin D3 (CALCIUM 600 + D ORAL) Yes Yes Sig: Take 200 mcg by mouth two times a day. clonazePAM (KLONOPIN) 0.5 mg tablet Yes Yes Sig: Take 0.5 mg by mouth two times a day as needed for anxiety (usually morning and evening). cycloSPORINE 0.05 % drop Yes Yes Sig: Use 1 drop in both eyes two times a day. furosemide (LASIX) 40 mg tablet Yes Yes Sig: Take 40 mg by mouth once daily. gabapentin (NEURONTIN) 100 mg capsule Yes Yes Sig: Take 100 mg by mouth three times a day. levETIRAcetam (KEPPRA) 500 mg tablet No Yes Sig: Take 1 tablet by mouth two times a day for 7 doses. melatonin 3 mg tablet No Yes Sig: Take 3 tablets by mouth daily at bedtime. metFORMIN (GLUCOPHAGE) 500 mg tablet Yes Yes Sig: Take 1,000 mg by mouth daily with breakfast. mupirocin (BACTROBAN) 2% oint Yes Yes Sig: Use 0.5 g in the nose two times a day. nystatin (MYCOSTATIN) ointment Yes Yes Sig: Apply 1 application to affected area two times a day. pantoprazole sodium (PROTONIX ORAL) Yes No Sig: Take 40 mg by mouth once daily. potassium chloride ER (KLOR-CON M10) 10 mEq tablet Yes Yes Sig: Take 10 mEq by mouth once daily. roflumilast (ZORYVE) 0.3 % cream Yes Yes Sig: Apply 0.3 % to affected area once daily. For ears rosuvastatin (CRESTOR) 10 mg tablet Yes Yes Sig: Take 10 mg by mouth daily at bedtime. senna-docusate (SENNA-S) 8.6-50 mg per tablet No Yes Sig: Take 1 tablet by mouth two times a day for 5 days. sertraline (ZOLOFT) 100 mg tablet Yes Yes Sig: Take 100 mg by mouth once daily. Facility-Administered Medications: None ALLERGIES Allergen Reactions Tape [Adhesive Tape* Rash REVIEW OF SYSTEM: GENERAL: No weight loss, malaise or fevers RESPIRATORY: Denies SOB, cough CARDIOVASCULAR: Denies CP, palpitations, dizziness, BLE swelling. GI: No nausea, vomiting, or diarrhea, denies constipation or melena : No history of dysuria, frequency or inconti (more content not included)... [facility] NURSING PROGon 08-07-2024 NURSING PROG HNO ID: [id number] Author: BRIAN JEONG LPN Service: Nursing Author Type: LICENSED NURSE Type: Nursing Progress Note Filed: 08/07/2024 12:19 Note Text: Call to son Derrick, confirmed family will provide eye drops. Cyclosporine will be brought in this afternoon. Son inquiring about ST evaluation for advancement of diet and nutritional supplement. [facility] NUTRITIONon 08-07-2024 NUTRITION HNO ID: [id number] Author: MINERVA WATSON RD Service: Nutrition Therapy Author Type: Registered Dietitian Type: Nutrition Filed: 08/07/2024 09:33 Note Text: NUTRITION THERAPY INITIAL ASSESSMENT SERVICE DATE: 08/07/2024 SERVICE TIME: Start Time: 906 Nutrition Assessment: Recommended Malnutrition Diagnosis: Mild Protein-Calorie Malnutrition In the context of: Acute Illness or Injury Based on: Insufficient Energy Intake Nutrition Diagnosis: Problem: Suboptimal oral intake Related to: Acute illness As evidenced by: Patient/family self-report Care Plan: Follow for diet advancement to goal Refer to: Speech/Language (ordered) Monitor and Evaluation: Meet greater than 75% of estimated needs, Monitor fluid/electrolyte balance, Monitor labs, I/Os, vital signs, weight Discharge Recommendations: Diet, Oral Supplements Diet: as tolerated Oral Supplements: high protein twice daily HPI: 84 y/o female here for Aftercare [Z51.89] R/t TBI w/ Subdural hematoma With No past medical history on file. Intake History: Nutrition Intake Prior to Admission: Less than 50% estimated energy needs (ONS use PASTE UP ARTIST APPRENTICE QD noted w/ 2 meals daily sttated) greater than or equal to 5 days Current Nutrition Intake: Greater than 75% estimated energy needs (x1 meal, dislikes purre upper denture ill fitting r/t swollen gums denies pain or dysphagia s/s) Dosing Weight: 45 kg (99 lb 3.3 oz) Dosing Weight Type: [place] body weight Estimated kilocalorie needs: 0216-7258 Calorie Calculation Method: 25-30 kcals/kg Estimated protein needs (grams): 46-54 Grams protein determined by: 1.0 - 1.2 g/kg Weight Weight 08/06/2024 126 lb 1.7 oz 08/03/2024 137 lb 2 oz 08/01/2024 136 lb 11 oz 08/01/2024 144 lb 1.6 oz Diet Orders (From admission, onward) Start Ordered 08/06/24 1500 DIET CARBOHYDRATE CONTROLLED START NOW Question Answer Comment Carbohydrate Control CONSISTENT CARBOHYDRATE Food Consistency PUREED (L4) 08/06/24 7327 Anthropometrics: Height: 149.9 cm (4' 11) Weight: 57.2 kg (126 lb 1.7 oz) 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 Weight change percentage over time: suspected error limited records vs >7% loss @ 5 days Weight Change: Unable to determine Physical Exam: Subcutaneous fat loss: No Subcutaneous Fat Loss Muscle loss: No Muscle Loss Potential micronutrient deficiency: Teeth, Mucous Membranes (FACIAL TRAUMA) Edema/Ascites: Lower extremities Lower Extremity: Moderate 2+ GI Symptoms: None (states tolerates puree dislikes,) Functional Status: Not related to malnutrition status Potential Signs of Inflammation: Chronic condition DM Lines, Drains, and Airways None MNT Billing: $ Initial Assessment: 1 unit Time Spent (mins): 13 SIGNATURE: Minerva Watson RD PATIENT NAME: Tamica Anderson DATE: August 07, 2024 TIME: 7:34 AM [facility] THERAPY NTon 08-07-2024 THERAPY NT HNO ID: [id number] Author: FIFI LEUNG OT/Catherine Service: ? Author Type: Occupational Therapist Type: Therapy (PT/OT/Speech/Resp) Filed: 08/07/2024 14:20 Note Text: Occupational Therapy Intermediate Facility Evaluation Summary SERVICE DATE: 08/07/2024 SERVICE TIME: 1321 to 1350 ROOM: [place] [address] OT 6 Clicks Score: 17 DISCHARGE RECOMMENDATIONS Home OT Anticipated Discharge Needs: Family Training, Physical Assist at Home, Supervision at Home Recommended Discharge Equipment: Other: See Comment (possibly 3 in 1 commode) GOALS Patient will demonstrate progress to optimize self-care activities, cognitive and/or coping to maximize function upon discharge. Upper Body Bathing with: Modified Independent Upper Body Dressing with: Independent Lower Body Bathing with: Stand By Assistance Lower Body Dressing with: Stand By Assistance Toilet Hygiene with: Supervision Chair Transfer with: Stand By Assistance Toilet Transfer with: Stand By Assistance Shower Transfer with: Stand By Assistance Kitchen Mobility Tasks with: Stand By Assistance Demonstrate Competence with Education with: Stand By Assistance Progress Toward Goals: Progressing as expected Rehab Potential: Good ASSESSMENT Response to Therapy Interventions: Low Activity Tolerance Pt shows decreased mobility, decreased balance, decreased ADL's and decreased safety awareness with walker. Pt is below previous level of function and would benefit from therapy to improve for safe homegoing Plan for Next Visit: Bathing Training, Bed Mobility, Chair/Commode Transfer Training, Dressing Training, Energy Conservation, Equipment Needed (specify), Sit to Stand Transfers, Standing Balance, Standing Tolerance, Toileting Instruction PRECAUTIONS Bed/Chair Alarm, Fall Risk SDH, check BP with treatment, do not bend over at the waist to lift heavy objects, may bathe and shower, may walk with a walker, no prolonged bedrest > 8 hours, puree diet/ thin liquids SUBJECTIVE Pt agreeable to evaluation. FUNCTIONAL STATUS Activities of Daily Living Assist Level Additional Information Feeding Supervision, Additional Information new food consistency and painful mouth Grooming Set Up Bathing Upper Body Minimal Assistance Bathing Lower Body Maximal Assistance Dressing Upper Body Minimal Assistance Dressing Lower Body Maximal Assistance Toileting Minimal Assistance, Additional Information per clonical judgement Instrumental Activities of Daily Living Assist Level Additional Information Meal/Beverage Prep Total Assistance Cleaning Total Assistance Laundry Total Assistance Medication Management with Strategies Total Assistance Mobility Assist Level Additional Information Bed Mobility Supine To Sit: Contact Guard Assistance Sit To Supine: Minimal Assistance Sit to Stand Contact Guard Assistance Stand to Sit Contact Guard Assistance Bed to Chair Contact Guard Assistance Bed To Chair Transfer Type: Stepping Bed To Chair Transfer Equipment: Wheeled Walker, Gait Belt Toilet/Commode Shower Functional Mobility CURRENT HOSPITAL COURSE Patient is an 84 year old female presenting from [facility] as a transfer from [place] following fall on 08/01. CT/ XR show acute subdural hematoma involving the lower anterior interhemispheric fissue which measures 8 mm in maximum width. Small volume of an adjacent acute subarachnoid hemorrhage in anterior inferior frontal lobes. Right frontal scalp hematoma/ contusion. Nasal septal fractures with suspected anterior nasal septal hematoma, and upper lip laceration. Admitted to ICU for brain bleed, and neurosurgery recommended nonoperative treatment. Nasal fracture evaluated by plastics who also suggested nonoperative management. Patient now presents below baseline level of function, and can benefit from skilled services to faciltiate return to [facility]. Relevant Past Medical History: HTN, DM2, and Hyperlipidemia HOME LIVING Patient Lives With: Family (son lives in basement apartment) Assistance Available: Part-Time (son works full time paramedic in [place]) Entry To Home: Stairs, With Rail Number Of Stairs Into Home: 3 Number Of Stairs To Bed/Bath: 0 Tub/Shower Type: walk in shower Laundry: son can assist with Equipment Owned: Walker- Wheeled, Wheelchair- Manual, Pulse Ox, BP Monitor, Cane, Lift Chair (sleeps in regular flat bed) PRIOR FUNCTIONAL LEVEL Within Functional Limits, History of Falls, Required Assistance Assistance Required With: Meals, Transportation Patient was IND prior to falling. Ambulated at home with a wheeled-walker but is not driving. Patient reports to PT that she cooks, to OT she said her son cooks. she cleans, but son has taken over the majority of the IADLs. History of multiple falls with injuries. Baseline Cognition: Oriented to self, Oriented to place, Oriented to time, Oriented to situation COGNITION Executive Function Deficits: Money management, Judgement, P (more content not included)... [facility] THERAPY NT HNO ID: [id number] Author: VIKTORIYA WARNER PT Service: Physical Therapy Author Type: Physical Therapist Type: Therapy (PT/OT/Speech/Resp) Filed: 08/07/2024 08:45 Note Text: Summary: PT evaluation note Physical Therapy Intermediate Facility Evaluation Summary SERVICE DATE: 08/07/2024 SERVICE TIME: 748 ROOM: [place] [address] PT 6 Clicks Score: 15 DISCHARGE RECOMMENDATIONS Home PT Recommended Discharge Disposition Comments: Home PT pending ability of son to supervise patient initially due to fall risk Anticipated Discharge Needs: Family Training, Physical Assist at Home, Supervision at Home Recommended Discharge Equipment: To Be Determined (she reports B HRs are being put in for her) GOALS Patient will demonstrate progress with functional mobility to allow safe discharge to home with available support and/or physical assistance. Able to Perform HEP with: Independent Rolling with: Modified Independent Transfer Supine to/from Sit with: Modified Independent Transfer Sit to/from Stand with: Supervision Ambulate with: Stand By Assistance Distance: 150 Device: Wheeled Walker Ambulate Up and Down Steps with: Contact Guard Assistance Number of Steps: 3 Device: Rail ROM: BLE strength to at least 4/5 Car Transfer with: Contact Guard Assistance Goal: Improvement in 2 MWT by at least 40' at [facility] Rehab Potential: Good Progress Toward Goals: Progressing as expected ASSESSMENT Response to Therapy Interventions: Multiple Ongoing Medical Issues Patient is an 84 year old female presenting to [facility] s/p hospitalization at [facility] for SDH/ nasal fractures with nonoperative management. At this time, review of precautions with patient, with patient able to perform all mobility with min A this date. Some noted deficits in proprioception/ bodily awareness, though patient was tired, so we will continue to assess. Patient's main concern throughout eval is inability to eat solid food and fit her dentures- notified machine shorthand teacher and will notify TRAVELIFT OPERATOR. Recommend 2 weeks of skilled services to facilitate return to [facility] as able with potential initial 24/ supervision from son. Plan for Next Visit: Gait Training PRECAUTIONS Bed/Chair Alarm, Fall Risk SDH, check BP with treatment, do not bend over at the waist to lift heavy objects, may bathe and shower, may walk with a walker, no prolonged bedrest > 8 hours, puree diet/ thin liquids SUBJECTIVE I am sleepy. Agreeable to PT evaluation. FUNCTIONAL STATUS Bed Mobility Rolling: Minimal Assistance Supine To Sit: Minimal Assistance, Additional Information HOB elevated, L handrail Sit to Supine: Minimal Assistance, Additional Information assist for LEs Scooting: Stand By Assistance Transfers Sit To Stand: Minimal Assistance, Moderate Assistance, Additional Information from 17 bed height and traditional commode height Stand To Sit: Contact Guard Assistance, Minimal Assistance, Additional Information decreased eccentric control Bed to Chair Contact Guard Assistance Bed To Chair Transfer Type: Stepping Bed To Chair Transfer Equipment: Gait Belt, Wheeled Walker Gait Contact Guard Assistance, Minimal Assistance, Additional Information flat foot during initial stance, mild out toeing, decreased step length Gait Device: Wheeled Walker General Deviations/Observation s: Flexed trunk posture, Jaquan decreased, Non-functional gait speed, Shuffling Gait, Improper distancing from assistive device Gait Distance (feet): 15' x 2 Stairs Additional Information DNT this date due to breakfast arriving CURRENT HOSPITAL COURSE Patient is an 84 year old female presenting from [facility] as a transfer from [place] following fall on 08/01. CT/ XR show acute subdural hematoma involving the lower anterior interhemispheric fissue which measures 8 mm in maximum width. Small volume of an adjacent acute subarachnoid hemorrhage in anterior inferior frontal lobes. Right frontal scalp hematoma/ contusion. Nasal septal fractures with suspected anterior nasal septal hematoma, and upper lip laceration. Admitted to ICU for brain bleed, and neurosurgery recommended nonoperative treatment. Nasal fracture evaluated by plastics who also suggested nonoperative management. Patient now presents below baseline level of function, and can benefit from skilled services to faciltiate return to [facility]. Relevant Past Medical History: HTN, DM2, and Hyperlipidemia HOME LIVING Patient Lives With: Family (son lives in basement apartment) Assistance Available: Part-Time (son works full time paramedic in [place]) Entry To Home: Stairs, With Rail Number Of Stairs Into Home: 3 Number Of Stairs To Bed/Bath: 0 Tub/Shower Type: walk in shower Laundry: son can assist with Equipment Owned: Walker- Wheeled, Whee (more content not included)... [facility] ALLIED HEALTHon 08-06-2024 ALLIED HEALTH HNO ID: [id number] Author: BRYCE YEE Chaplain Service: ? Author Type: Brand Inspector Type: Allied Health Filed: 08/06/2024 16:02 Note Text: SPIRITUAL CARE PROGRESS NOTE SERVICE DATE: 08/06/2024 SERVICE TIME: 3:45 PM Brand Inspector triaged referral for emotional support with unit staff who requested a telehealth visit tomorrow morning (08/07). This race and sports book writer forwarded request appropriately. Department remains available for further care and consultation. To contact the Spiritual Care Department: Please call [phone]. SIGNATURE: Chaplain Aren PATIENT NAME: Tamica Anderson DATE: August 06, 2024 TIME: 4:00 PM PAGER/CONTACT #: [phone] [facility] ALLIED HEALTH HNO ID: [id number] Author: SOPHIE GUALLPA RT(R) Service: Radiology Author Type: Racker Octave Board Type: Allied Health Filed: 08/06/2024 08:31 Note Text: Radiology Service Progress Note PATIENT NAME: Tamica Anderson DATE OF SERVICE: August 06, 2024 TIME: 8:31 AM PATIENT IDENTITY VERIFICATION COMPLETED USING TWO (2) IDENTIFIERS: Name and Date of confirmed by patient verbally and Name and Date of confirmed by identification band. FALL SCREENING: Has the patient had 2 falls in the last year or 1 fall with injury or currently using an Ambulatory Assistive Device (Walker, Cane, Wheelchair, Crutches, etc.)? Inpatient: Screened on floor PATIENT GENDER DATA: Assigned female at . status: : No status: NO. PATIENT RELEVANT IMPLANT DATA REVIEWED: Not Applicable PATIENT PRESENTS WITH AN IMPLANTABLE OR ATTACHED DIVISION HEAD: No RADIOLOGY DEPARTMENT: CT; Exam(s) Completed: Brain PERIPHERAL IV DATA: Not applicable SIGNED BY: RT uRben(R) August 06, 2024 8:31 AM Normal [facility] Basic metabolic 2000 panelon 08-06-2024 Anion gap [Moles/Vol] 14 mmol/L Normal 8-15 [facility] Comment on above: Order Comment: Speci men Type: BLOOD SPECIMENOrdering Facility: [facility] Address: [address] [place] [address] Performed By: #### 2 4321-2 ####[facility] LABORATORYCLIA [id number] [place] [address] [place] Calcium [Mass/Vol] 9.0 mg/dL Normal 8.5-10.2 [facility] Comment on above: Order Comment: Speci men Type: BLOOD SPECIMENOrdering Facility: [facility] Address: [address] [place] [address] Performed By: #### 2 4321-2 ####[facility] LABORATORYCLIA [id number] [place] [address] [place] Chloride [Moles/Vol] 99 mmol/L Normal 98-107 [facility] Comment on above: Order Comment: Speci men Type: BLOOD SPECIMENOrdering Facility: [facility] Address: [address] [place] [address] Performed By: #### 2 4321-2 ####[facility] LABORATORYCLIA [id number] [place] [id number] [place] CO2 [Moles/Vol] 29 mmol/L Normal 22-30 [facility] Comment on above: Order Comment: Speci men Type: BLOOD SPECIMENOrdering Facility: [facility] Address: [address] [place] [address] Performed By: #### 2 4321-2 ####[facility] [id number] [address] [place] Creatinine [Mass/Vol] 0.71 mg/dL Normal 0.58-0.96 [facility] Comment on above: Order Comment: Speci men Type: BLOOD SPECIMENOrdering Facility: [facility] Address: [address] [place] [address] Performed By: #### 2 4321-2 ####[facility] LABORATORYCLIA [id number] [address] Creatinine and Glomerular filtration rate.predicted panel (S/P/Bld) 84 mL/min/1.73m??? Normal >=60 [facility] Comment on above: Order Comment: Speci men Type: BLOOD SPECIMENOrdering Facility: [facility] Address: [address] [place] [address] Result Comment: Venita mated Glomerular Filtration Rate (eGFR) is calculated using the 2020 CKD-EPI creatinine equation. This equation utilizes serum creatinine, sex, and age as parameters. The creatinine assay has traceable calibration to isotope dilution-mass spectrometry. Refer to KDIGO guidelines for clinical interpretation. In patients with unstable renal function, e.g. those with acute kidney injury, the eGFR may not accurately reflect actual GFR. Performed By: #### 2 4321-2 ####[facility]ATORYCLIA [id number] [address] [place] Glucose [Mass/Vol] 101 mg/dL High 74-99 [facility] Comment on above: Order Comment: Speci men Type: BLOOD SPECIMENOrdering Facility: [facility] Address: [address] [place] [address] Result Comment: The [place] Diabetes Association (ADA) provides guidance for cutoff values for fasting glucose and random glucose. The ADA defines fasting as no caloric intake for at least 8 hours. Fasting plasma glucose results between 100 to 125 mg/dL indicate increased risk for diabetes (prediabetes). Fasting plasma glucose results greater than or equal to 126 mg/dL meet the criteria for diagnosis of diabetes. In the absence of unequivocal hyperglycemia, results should be confirmed by repeat testing. In a patient with classic symptoms of hyperglycemia or hyperglycemic crisis, random plasma glucose results greater than or equal to 200 mg/dL meet the criteria for diagnosis of diabetes. Reference: Standards of Medical Care in Diabetes 2016, British Diabetes Association. Diabetes Care. 2016.39(Suppl 1). Performed By: #### 2 4321-2 ####[facility]ATORYCLIA [id number] [place] [address] [place] Potassium [Moles/Vol] 3.2 mmol/L Low 3.7-5.1 [facility] Comment on above: Order Comment: Speci men Type: BLOOD SPECIMENOrdering Facility: [facility] Address: [address] [place] [address] Performed By: #### 2 4321-2 ####[facility]ATORYCLIA [id number] [place] [address] [place] Sodium [Moles/Vol] 142 mmol/L Normal 136-144 [facility] Comment on above: Order Comment: Speci men Type: BLOOD SPECIMENOrdering Facility: [facility] Address: [address] [place] [address] Performed By: #### 2 4321-2 ####[facility]ATORYCLIA [id number] [place] [address] [place] Urea nitrogen [Mass/Vol] 21 mg/dL Normal 7-21 [facility] Comment on above: Order Comment: Speci men Type: BLOOD SPECIMENOrdering Facility: [facility] Address: [address] [place] [address] Performed By: #### 2 4321-2 ####[facility]ATORYCLIA [id number] [address] STATES OF [facility] CBC panel Auto (Bld)on 08-06 Erythrocyte distribution width (RBC) [Ratio] 13.1 % Normal 11.5-15.0 [facility] Comment on above: Order Comment: Speci men Type: BLOOD SPECIMENOrdering Facility: [facility] Address: [address] [place] [address] Performed By: #### 5 8410-2 ####[facility]ORATORYCLIA [id number] [address] OF [facility] Hematocrit (Bld) [Volume fraction] 34.4 % Low 36.0-46.0 [facility] Comment on above: Order Comment: Speci men Type: BLOOD SPECIMENOrdering Facility: [facility] Address: [address] [place] [address] Performed By: #### 5 8410-2 ####[facility]ATORYCLIA [id number] [address] Hemoglobin (Bld) [Mass/Vol] 11.2 g/dL Low 11.5-15.5 [facility] Comment on above: Order Comment: Speci men Type: BLOOD SPECIMENOrdering Facility: [facility] Address: [address] [place] [address] Performed By: #### 5 8410-2 ####[facility]ATORYCLIA [id number] [address] STATES [facility] MCH (RBC) [Entitic mass] 29.9 pg Normal 26.0-34.0 [facility] Comment on above: Order Comment: Speci men Type: BLOOD SPECIMENOrdering Facility: [facility] Address: [address] [place] [address] Performed By: #### 5 8410-2 ####[facility]ORYCLIA [id number] [address] [place] MCHC (RBC) [Mass/Vol] 32.6 g/dL Normal 30.5-36.0 [facility] Comment on above: Order Comment: Speci men Type: BLOOD SPECIMENOrdering Facility: [facility] Address: [address] [place] [address] Performed By: #### 5 8410-2 ####[facility]ATORYCLIA [id number] [address] OF [facility] MCV (RBC) [Entitic vol] 92.0 fL Normal 80.0-100.0 [place] Comment on above: Order Comment: Speci men Type: BLOOD SPECIMENOrdering Facility: [facility] Address: [address] [place] [address] Performed By: #### 5 8410-2 ####[facility]ATORYCLIA [id number] [address] OF [facility] Nucleated RBC (Bld) [#/Vol] 10*3/uL Normal <0.01 [facility] Comment on above: Order Comment: Speci men Type: BLOOD SPECIMENOrdering Facility: [facility] Address: [address] [place] [address] Performed By: #### 5 8410-2 ####[facility]ATORYCLIA [id number] [address] Platelet mean volume (Bld) [Entitic vol] 9.2 fL Normal 9.0-12.7 [facility] Comment on above: Order Comment: Speci men Type: BLOOD SPECIMENOrdering Facility: [facility] Address: [address] [place] [address] Performed By: #### 5 8410-2 ####[facility]ATORYCLIA [id number] [address] OF [facility] Platelets (Bld) [#/Vol] 172 10*3/uL Normal 150-400 [facility] Comment on above: Order Comment: Speci men Type: BLOOD SPECIMENOrdering Facility: [facility] Address: [address] [place] [address] Performed By: #### 5 8410-2 ####[facility]ORATORYCLIA [id number] [place] [address] [facility] [place] RBC (Bld) [#/Vol] 3.74 10*6/uL Low 3.90-5.20 [facility] Comment on above: Order Comment: Speczuleyma mei Type: BLOOD SPECIMENOrdering Facility: [facility] Address: [address] [place] [address] Performed By: #### 5 8410-2 ####[facility]ATORYCLIA [id number] [place] [id number] [facility] WBC (Bld) [#/Vol] 7.65 10*3/uL Normal 3.70-11.00 [facility] Comment on above: Order Comment: Speci hamida Type: BLOOD SPECIMENOrdering Facility: [facility] Address: [address] [place] [address] Performed By: #### 5 8410-2 ####[facility]ATORYCLIA [id number] [place] [id number] [facility] CNDSon 08-06-2024 CNDS HNO ID: [id number] Author: ECTOR GONZALEZ MD Service: General Surgery Author Type: Physician Type: Discharge Summary Filed: 08/06/2024 22:43 Note Text: DISCHARGE SUMMARY PATIENT NAME: Tamica Anderson Code Status: Full Code Highest Readmission Risk Score: 8 The 30 day readmissions risk score is derived from an internally validated risk model which evaluates patient level characteristics, utilization history, medication orders and lab results up until the day of discharge. Patients with a score of 39 or above are considered highest risk for readmission. Specific patient level drivers will be listed at the bottom of the summary. Admission Information Admission Information ADMIT DATE: 08/01/2024 DISCHARGE DATE: 08/06/2024 MY DOCTORS AND MEDICAL TEAM: [facility] Doctor: Ector Gonzalez MD Primary Care Provider: Dominique Lang MD, MD My Medical Team Members: Treatment Team: Attending Provider: Ector Gonzalez MD Consulting: Martita Dsouza MD MY CONDITION AT DISCHARGE: Stable REASON I WAS IN THE HOSPITAL: Treatment of injuries sustained during fall SUMMARY OF WHAT HAPPENED WHILE I WAS IN THE HOSPITAL: Tamica Anderson presented to [facility] as a transfer from [place] following a reported ground level fall on 08/01/2024. Examination, CT and x-ray imaging revealed the following acute injuries: 1. Acute subdural hematoma involving the lower anterior interhemispheric fissure which measures 8 mm in maximum width. Small volume of an adjacent acute subarachnoid hemorrhage in the anterior inferior frontal lobes. 2. Right frontal scalp hematoma/contusion 3. Nasal septal fractures with suspected anterior nasal septal hematoma 4. Upper lip laceration Her upper lip laceration was repaired with absorbable sutures. Given her brain bleed, she was admitted to the ICU for close neurological monitoring. Neurosurgery was consulted and recommended non-operative treatment. She was placed on a 7-day course of Keppra for seizure prevention. Her home aspirin was held and she was instructed to avoid aspirin and other potential blood thinning medications until outpatient follow-up with neurosurgery. Repeat CT scan of her brain remained stable x 2. Ms. Anderson' nasal bone fracture was evaluated by plastic surgery and would not require operative management. She would need to follow sinus/nasal precautions for 3 weeks and follow-up outpatient in 1 week for reassessment. Given her age, falls and co-morbidities, she was evaluated by geriatrics and a referral was placed for outpatient geriatric follow-up. Pain was controlled primarily with Tylenol. She was evaluated by physical and occupational therapy who recommended discharge to a fpc facility. She was also evaluated by speech therapy from a cognitive standpoint given her traumatic brain injury. Ms. Anderson was discharged in stable condition on 08/06/2024. She would require outpatient follow-up care with neurosurgery, plastic surgery and her primary care provider. OTHER PROBLEMS/DIAGNOSIS: Principal Problem: Subdural hematoma (HCC) Active Problems: Fall SAH (subarachnoid hemorrhage) (HCC) Primary hypertension Hyperlipidemia Lip laceration Controlled type 2 diabetes mellitus without complication, with long-term current use of insulin (HCC) Closed fracture of nasal bone Frequent falls Frailty syndrome in geriatric patient Anxiety Resolved Problems: Hypomagnesemia Thrombocytopenia Delirium OPERATIONS PERFORMED WHILE IN THE HOSPITAL: None IMPORTANT TEST/PROCEDURES: Lip laceration repair (absorbable sutures) TEST RESULTS NOT AVAILABLE AT THIS TIME: No pending results Discharge Disposition Discharge Disposition: Intermediate Facility - Less than 30 Days Activity When You Leave the Hospital Do not bend over at the waist to lift heavy objects May bathe and shower May walk with a walker No prolonged bedrest, longer than 8 hours in a 24 hour period Resume pre-hospital activity Diet Instructions Avoid Alcohol Soft Foods For Pain When You Leave the Hospital If you become constipated, you may use any mlho-pds-gutfbpo treatment such as Milk of Magnesia, Sennakot, Prune Juice, Suppositories, etc. in addition to the stool softener/fiber supplement Other: DO NOT take aspirin or NSAIDs such a Motrin, Advil, ibuprofen, Aleve or naproxen as these medications can increase your risk of bleeding. Use acetaminophen (Tylenol) as recommended on the bottle Wound/Surgical Site Care Leave open to air Other: Apply prescribed antibiotic ointment to your lip laceration twice daily. Call Your Doctor If You have a severe headache You have lightheadedness, fainting, or confusion You have pain and swelling in your legs, especially if it is only on one side and not the other You have persistent nausea/vomiting over 24 hours You have swollen glands or cold and (more content not included)... Normal [facility] CT BRAIN WO IVCONon 08-07-19 CT BRAIN WO IVCON * * *Final Report* * * DATE OF EXAM: Aug 06 2024 8:34AM [facility] 0504 - CT BRAIN WO IVCON / PROCEDURE REASON: Head trauma, moderate-severe * * * * Physician Interpretation * * * * EXAMINATION: CT BRAIN WITHOUT IV CONTRAST CLINICAL HISTORY: Head trauma, moderate severe. Traumatic brain injury, new or progressive neuro deficits. Patient fell on head face first. TECHNIQUE: Serial axial images without IV contrast were obtained from the vertex to the foramen magnum. MQ: [id number]_3 CT Radiation dose: Integrated Dose-Length Product (DLP) for this visit = 729 mGy*cm CT Dose Reduction Employed: Automated exposure control(AEC) and iterative recon COMPARISON: CT brain 08/01/2024. RESULT: Localizer images: Unremarkable. Post-operative change: None. Acute change: No evidence of an acute infarct or other acute parenchymal process. Hemorrhage: There is a small subdural hemorrhage noted along the left anterior inferior interhemispheric falx near the frida khadijah that has decreased in size and now measures only 4 mm in thickness. Previously noted minimal subarachnoid hemorrhage in the inferior left frontal lobe has resolved since the prior exam. Minimal amount of intraventricular hemorrhage noted in the left occipital horn and is not unexpected. ECASS hemorrhagic transformation score: Not Applicable Mass Lesion / Mass Effect: There is no evidence of an intracranial mass or extraaxial fluid collection. No significant mass effect. Chronic change: Patchy foci of low attenuation are present within the supratentorial white matter, a nonspecific finding that most commonly represents moderate small vessel disease. Parenchyma: There is mild to moderate generalized volume loss. Ventricles: The ventricles are within normal limits of size and configuration for age. Paranasal sinuses and skull base: Nasal soft tissue swelling again noted. The visualized paranasal sinuses are grossly clear. The skull base and imaged soft tissues are otherwise unremarkable. IMPRESSION: 1. Interval decreased size of subdural hemorrhage along the anterior inferior aspect of the interhemispheric falx. 2. Resolution of subarachnoid hemorrhage in the inferior left frontal lobe. Small amount of intraventricular hemorrhage present in the occipital horn left lateral ventricle likely related to the previous subarachnoid hemorrhage. 3. Generalized brain parenchymal volume loss. Chronic small vessel ischemic changes of the supratentorial white matter. Toll Gate Tender: PABLO Transcribe Date/Time: Aug 06 2024 9:42A Dictated by : KIN ROGERS MD This examination was interpreted and the report reviewed and electronically signed by: KIN ROGERS MD on Aug 06 2024 9:58AM EST [id number] Normal [facility] CONSULT PROGon 08-05-2024 CONSULT PROG HNO ID: [id number] Author: SU JOHN PA Service: Geriatrics Author Type: Physician X Ray Developing Machine Operator Type: Consult Progress Note Filed: 08/05/2024 13:16 Note Text: GERIATRIC MEDICINE PROGRESS NOTE SERVICE DATE: 08/05/2024 SERVICE TIME: 10:40 AM [id number] 4-* DIAGNOSES: HTN, HLD, KATTY, T2DM, anxiety, depression, subdural hematoma, L nasal fracture, lip laceration, delirium BASELINE MENTATION: AANDO X3 INTERVAL HPI: Patient is awake and up to the chair, awake and alert this morning, blinds open. Able to state name, age, , place, month, year, why she is at the hospital. Denies feelings of confusion or hallucinations. Endorses some weakness and fatigue. States she's feeling better out of bed, has been ambulating to the bathroom. Denies chest pain, palpitations, cough, shortness of breath, abdominal pain, nausea, dizziness, headaches, or vision changes. Slept well overnight, voiding without difficulty, having bowel function, poor PO intake, difficult to eat due to lip laceration. Subjective DNR/CODE STATUS: Full code Advance Directives: Living Will? Not in chart HCPOA? Not in chart Surrogate Decision Maker? Majority of 3 children Medications: MEDICATIONS REVIEWED: Yes Current Facility-Administered Medications Medication Dose Route Frequency NaCl 0.9% iv flush bag 20 mL INTRAVENOUS PRN dextrose 15 gram/32 mL 15 g (TRUEPLUS) 15 g ORAL PRN Or glucagon 1 mg injection 1 mg INTRAMUSCULAR PRN Or dextrose 10% iv bolus 12.5 g INTRAVENOUS PRN melatonin 9 mg tab(s) 9 mg ORAL DAILY (8 PM) acetaminophen 650 mg tab(s) (TYLENOL) 650 mg ORAL q 6 H PRN oxyCODONE IR 2.5 mg tab(s) (ROXICODONE) 2.5 mg ORAL q 6 H PRN senna-docusate 8.6-50 mg 1 tablet (SENNA-S) 1 tablet ORAL BID levETIRAcetam 500 mg tab(s) (KEPPRA) 500 mg ORAL BID insulin lispro injection (rapid acting) (ADMElog) SUBCUTANEOUS w MEALS AND HS benzocaine-menthol 1 lozenge (CEPACOL) 1 lozenge MUCOUS MEMBRANE (TOPICAL MOUTH AND THROAT) q 2 H PRN clonazePAM 0.5 mg tab(s) (KlonoPIN) 0.5 mg ORAL BID PRN furosemide 40 mg tab(s) (LASIX) 40 mg ORAL DAILY rosuvastatin 10 mg tab(s) (CRESTOR) 10 mg ORAL AT BEDTIME busPIRone 10 mg tab(s) (BUSPAR) 10 mg ORAL TID sertraline 100 mg tab(s) (ZOLOFT) 100 mg ORAL DAILY heparin 5,000 Units injection 5,000 Units SUBCUTANEOUS q 12 H gabapentin 100 mg cap(s) (NEURONTIN) 100 mg ORAL DAILY bacitracin 500 unit/gram topical ointment TOPICAL BID Allergies: Allergies As of Date: 08/01/2024 (No Known Allergies) Fully Assessed 08/01/2024 Review of Systems Constitutional: Positive for malaise/fatigue. HENT: Denies facial pain Eyes: Denies changes in vision Respiratory: Negative for cough and shortness of breath. Cardiovascular: Negative for chest pain and palpitations. Gastrointestinal: Negative for abdominal pain, nausea and vomiting. Neurological: Positive for weakness. Negative for dizziness and headaches. Psychiatric/Behavioral : Negative for hallucinations. Objective 08/04/24201008/04/24204108/04/244 08/05/24 0726 BP: 181/76 169/80 143/76 139/76 Pulse: 69 68 61 77 Resp: 14 18 18 Temp: 37.1 ?C (98.8 ?F) 36.6 ?C (97.8 ?F) 36.8 ?C (98.3 ?F) TempSrc: Oral Oral Oral SpO2: 92% 94% 96% Weight: Height: Physical Exam Vitals reviewed. Constitutional: General: She is sleeping. Comments: Multiple bruises, frail HENT: Mouth/Throat: Mouth: Mucous membranes are dry. Cardiovascular: Rate and Rhythm: Normal rate and regular rhythm. Pulmonary: Effort: Pulmonary effort is normal. Abdominal: General: Bowel sounds are normal. Palpations: Abdomen is soft. Tenderness: There is no abdominal tenderness. Musculoskeletal: Right lower leg: Edema present. Left lower leg: Edema present. Skin: General: Skin is warm and dry. Neurological: Mental Status: She is oriented to person, place, and time and easily aroused. Psychiatric: Attention and Perception: Attention normal. She does not perceive auditory or visual hallucinations. Mood and Affect: Affect is flat. Behavior: Behavior is slowed. Behavior is not agitated, aggressive, hyperactive or combative. Comments: Soft speech 4AT: Alertness: Normal or mild sleepiness (0) AMT- age, , place, year: No mistakes (0) Attention: Can't do 7 or refuses start (1) Acute or fluctuating cognitive status: Yes (4) 4AT Score: 5/12, indicating possible delirium and/or cognitive impairment DELIRIUM ASSESSMENT: DEAR assessment: HIGH RISK BCAM: Negative during assessment Anti-psychotics in 48 hours: No Opioids/Benzodiazepine s in 48 hrs: Yes , clonazepam, oxycodone Anti-cholinergics on Board: No Restraints: No Indwelling Catheters: No Last BM: N/A, bowel regimen: senna-s Activity in the Past 24 hours: bed, chair, bathroom, PT/OT Need for Ambulatory Devices: Yes , walker Patient is AANDO X3, normal attention, more awake and interactive. Does not appear to be hallucinating. (more content not included)... Normal [facility] THERAPY NTon 08-05-2024 THERAPY NT HNO ID: [id number] Author: JACKIE CHURCH CCC-TRAVELIFT OPERATOR Service: Speech/Swallow Author Type: Speech Language Pathologist Type: Therapy (PT/OT/Speech/Resp) Filed: 08/05/2024 17:04 Note Text: Speech Therapy Treatment SERVICE DATE: 08/05/2024 SERVICE TIME: 1555 to 1620 ROOM: [place] [address] IMPRESSION Communication deficits identified: Cognitive deficits Swallow Deficits Identified / Suspected: Oropharyngeal dysphagia - poor ability to open mouth wide enough to insert her dentures due to lip scabbing and upper lip laceration. Recommend the modified diet mentioned below until lips heal more. RECOMMENDATIONS Diet Recommendations Pureed IDDSI Level 4 Thin Liquids IDDSI Level 0 Medications crushed in puree (pudding/applesauce) Swallow Strategy Recommendations Sit upright 90 degrees for all PO Supervision/Assistance for meals Small Bite/Sip Feed / Eat at a slow rate Alternate bites and sips Nursing Recommendations See swallow guide posted in patients room Allow for extended time for thought processing Response to Therapy Interventions: Good participation in activities Rehabilitation Precautions: Dysphagia, Cognitive Linguistics Deficits DISCHARGE RECOMMENDATIONS Recommended Discharge Disposition: Subacute/SNF Justification for Recommended Discharge Disposition: Patient requires daily, facility-based rehabilitation from at least one discipline due to:, new/worsened cognitive deficits related to current diagnosis, dysphagia requiring frequent assessment and diet modification CURRENT HOSPITAL COURSE 08/01 ground level fall, frontal subdural hematoma, subarachnoid hemorrhage, mildly displaced left nasal fracture, lip laceration. Reason for Speech Therapy Consult: speech, language, cognitve and swallow evaluation post ground level fall Relevant Past Medical History: HTN, DM2 HOME ENVIRONMENT / PRIOR FUNCTIONAL LEVEL Prior Functional Level: Within Functional Limits Patient Lives With: Family, Other: See Comment Prior Swallowing Function/Diet Textures: Regular Consistency, Thin Liquids IDDSI Level 0 SUBJECTIVE The patient is awake, difficult to understand due to limited oral range of motion. Lip laceration and scabbed, bruised lips. THERAPY DIAGNOSIS Dysphagia, oropharyngeal phase, Unspecified symbolic dysfunctions TREATMENT INTERVENTIONS Speech Therapy (15268), Dysphagia Therapy (31393) Skilled Treatment Time (minutes): 25 $ Dysphagia Therapy (35769) Billed Units: 1 unit $ Speech Therapy (44123) Billed Units: 1 unit TRAINING AND EDUCATION PROVIDED IN Dietary Consistencies, Swallowing Strategies, Cognitive Linguistic Strategies THERAPEUTIC SKILLS USED Education on role of discipline / importance of activity, Verbal cuing, Visual cuing, Instruction in self-monitoring / self-assessment OBJECTIVE Current Status Oral Hygiene: Clear, dry oral cavity (bruised, scabbed lips, left upper lip laceration) Dentition: Edentulous, Dentures Not Available During Assessment Current Feeding Method: Oral Current Diet Textures: Pureed IDDSI Level 4, Thin Liquids IDDSI Level 0, Medications crushed in puree (pudding/applesauce) Current Level Of Communication: Verbal Current Management Of Secretions: Able to self-manage Oral Motor Exam: Within Functional Limits Except Labial Assessment: Lip wound Labial Strength Impaired: Left Lingual Assessment: Generalized weakness Jaw Range of Motion: Limited ROM COGNITION Cognitive Status: Within Functional Limits For Current Session Except Cognitive Deficits: Memory Deficits, Executive Function Deficit Memory Deficits: Short Term Able to recall events of admission with minimal cueing Able to recall a series of 3 words on 4/5 trials Executive Function Deficits: Problem Solving - able to provide 2 solutions to a problem on 2/5 trials with moderate cueing Reasoning/Inferences - poor ability to realize she cannot open her mouth due to lip laceration and scabs in order to get dentures in despite moderate cueing SWALLOW ASSESSMENT Position Of Patient During Assessment: Upright In Bed Feeding Method: Patient Self-Fed Consistencies Presented: Thin Liquids IDDSI Level 0, Pureed Solids IDDSI Level 4, Minced and Moist Solids IDDSI Level 5 Thin Liquids Oral Phase: Spillage Left, Spillage Right (inconsistent use of straw, inconsistent labial seal) Thin Liquids Pharyngeal Phase: Throat Clearing- Delayed (coughs if taking too large of a drink) Pureed Solids Oral Phase: Impaired A-P Transfer, Mild Oral Residue Minced and Moist Solids Oral Phase: Impaired A-P Transfer, Impaired Mastication, Moderate Oral Residue Response to Swallow Interventions: The patient demonstrates poor chewing ability to due to no dentures and limited jaw/labial range of motion. Able to orally transfer the puree texture. Poor ability to chew a minced texture. Poor ability to open mouth for insertion of dentures. Able to swallow thin liquids from straw at (more content not included)... Normal [facility] 25(OH)D3 SerPl-ncon 2024 25-hydroxyvitamin D3 [Mass/Vol] 59.3 ng/mL Normal >=30.0 [facility] Comment on above: Order Comment: Speci men Type: BLOOD SPECIMENOrdering Facility: [facility] Address: [address] [place] [address] Result Comment: Clas sification of 25 [place] Vitamin D status: Deficiency: <= 20.0 ng/ml. Insufficiency: 21.0-29.0 ng/ml. Sufficiency: >= 30.0 ng/ml. Performed By: #### 1 989-3 ####[facility]ORATORYCLIA [id number] [place] [address] [place] Basic metabolic 2000 panelon 08-04-2024 Anion gap [Moles/Vol] 11 mmol/L Normal 8-15 [facility] Comment on above: Order Comment: Speci men Type: BLOOD SPECIMENOrdering Facility: [facility] Address: [address] [place] [address] Performed By: #### 2 4321-2 ####[facility]ORATORYCLIA [id number] [place] [address] [place] Calcium [Mass/Vol] 9.1 mg/dL Normal 8.5-10.2 [facility] Comment on above: Order Comment: Speci men Type: BLOOD SPECIMENOrdering Facility: [facility] Address: [address] [place] [address] Performed By: #### 2 4321-2 ####[facility]ORATORYCLIA [id number] [place] [address] [place] Chloride [Moles/Vol] 100 mmol/L Normal 98-107 [facility] Comment on above: Order Comment: Speci men Type: BLOOD SPECIMENOrdering Facility: [facility] Address: [address] [place] [address] Performed By: #### 2 4321-2 ####[facility]ATORYCLIA [id number] [address] [place] CO2 [Moles/Vol] 28 mmol/L Normal 22-30 [facility] Comment on above: Order Comment: Speci men Type: BLOOD SPECIMENOrdering Facility: [facility] Address: [address] [place] [address] Performed By: #### 2 4321-2 ####[facility]ORATORYCLIA [id number] [address] OF [facility] Creatinine [Mass/Vol] 0.77 mg/dL Normal 0.58-0.96 [facility] Comment on above: Order Comment: Speci men Type: BLOOD SPECIMENOrdering Facility: [facility] Address: [address] [place] [address] Performed By: #### 2 4321-2 ####[facility] [id number] [address] Creatinine and Glomerular filtration rate.predicted panel (S/P/Bld) 77 mL/min/1.73m??? Normal >=60 [facility] Comment on above: Order Comment: Speci men Type: BLOOD SPECIMENOrdering Facility: [facility] Address: [address] [place] [address] Result Comment: Venita mated Glomerular Filtration Rate (eGFR) is calculated using the 2020 CKD-EPI creatinine equation. This equation utilizes serum creatinine, sex, and age as parameters. The creatinine assay has traceable calibration to isotope dilution-mass spectrometry. Refer to KDIGO guidelines for clinical interpretation. In patients with unstable renal function, e.g. those with acute kidney injury, the eGFR may not accurately reflect actual GFR. Performed By: #### 2 4321-2 ####[facility]ORYCLIA [id number] [address] OF [facility] Glucose [Mass/Vol] 123 mg/dL High 74-99 [facility] Comment on above: Order Comment: Speci men Type: BLOOD SPECIMENOrdering Facility: [facility] Address: [address] [place] [address] Result Comment: The [place] Diabetes Association (ADA) provides guidance for cutoff values for fasting glucose and random glucose. The ADA defines fasting as no caloric intake for at least 8 hours. Fasting plasma glucose results between 100 to 125 mg/dL indicate increased risk for diabetes (prediabetes). Fasting plasma glucose results greater than or equal to 126 mg/dL meet the criteria for diagnosis of diabetes. In the absence of unequivocal hyperglycemia, results should be confirmed by repeat testing. In a patient with classic symptoms of hyperglycemia or hyperglycemic crisis, random plasma glucose results greater than or equal to 200 mg/dL meet the criteria for diagnosis of diabetes. Reference: Standards of Medical Care in Diabetes 2016, British Diabetes Association. Diabetes Care. 2016.39(Suppl 1). Performed By: #### 2 4321-2 ####[facility]IA [id number] [place] [address] [place] Potassium [Moles/Vol] Normal [facility] Comment on above: Order Comment: Speci men Type: BLOOD SPECIMENOrdering Facility: [facility] Address: [address] [place] [address] Result Comment: Unab le to assay due to interference from hemolysis. Suggest reorder as clinically indicated. Performed By: #### 2 4321-2 ####[facility]CLIA [id number] [place] [address] [place] Sodium [Moles/Vol] 139 mmol/L Normal 136-144 [facility] Comment on above: Order Comment: [facility] Type: BLOOD SPECIMENOrdering Facility: [facility] Address: [address] [place] [address] Performed By: #### 2 4321-2 ####[facility]ATORYCLIA [id number] [place] [address] [place] Urea nitrogen [Mass/Vol] 23 mg/dL High 7-21 [facility] Comment on above: Order Comment: Filipei men Type: BLOOD SPECIMENOrdering Facility: [facility] Address: [address] [place] [address] Performed By: #### 2 4321-2 ####[facility]ORYCLIA [id number] [address] CBC panel Auto (Bld)on 08-04 Erythrocyte distribution width (RBC) [Ratio] 13.2 % Normal 11.5-15.0 [facility] Comment on above: Order Comment: Speci men Type: BLOOD SPECIMENOrdering Facility: [facility] Address: [address] [place] [address] Performed By: #### 5 8410-2 ####[facility]ATORYCLIA [id number] [address] Hematocrit (Bld) [Volume fraction] 32.9 % Low 36.0-46.0 [facility] Comment on above: Order Comment: Speci men Type: BLOOD SPECIMENOrdering Facility: [facility] Address: [address] [place] [address] Performed By: #### 5 8410-2 ####[facility]ORYCLIA [id number] [address] Hemoglobin (Bld) [Mass/Vol] 10.7 g/dL Low 11.5-15.5 [facility] Comment on above: Order Comment: Speci men Type: BLOOD SPECIMENOrdering Facility: [facility] Address: [address] [place] [address] Performed By: #### 5 8410-2 ####[facility]ORYCLIA [id number] [address] MCH (RBC) [Entitic mass] 29.9 pg Normal 26.0-34.0 [facility] Comment on above: Order Comment: Speci men Type: BLOOD SPECIMENOrdering Facility: [facility] Address: [address] [place] [address] Performed By: #### 5 8410-2 ####[facility]ORYCLIA [id number] [address] MCHC (RBC) [Mass/Vol] 32.5 g/dL Normal 30.5-36.0 [facility] Comment on above: Order Comment: Speci men Type: BLOOD SPECIMENOrdering Facility: [facility] Address: [address] [place] [address] Performed By: #### 5 8410-2 ####[facility]ATORYCLIA [id number] [address] MCV (RBC) [Entitic vol] 91.9 fL Normal 80.0-100.0 [place] Comment on above: Order Comment: Speci men Type: BLOOD SPECIMENOrdering Facility: [facility] Address: [address] [place] [address] Performed By: #### 5 8410-2 ####[facility]ORYCLIA [id number] [address] Nucleated RBC (Bld) [#/Vol] 10*3/uL Normal <0.01 [facility] Comment on above: Order Comment: Speci men Type: BLOOD SPECIMENOrdering Facility: [facility] Address: [address] [place] [address] Performed By: #### 5 8410-2 ####[facility]ATORYCLIA [id number] [address] OF [facility] Platelet mean volume (Bld) [Entitic vol] 10.2 fL Normal 9.0-12.7 [facility] Comment on above: Order Comment: Speci men Type: BLOOD SPECIMENOrdering Facility: [facility] Address: [address] [place] [address] Performed By: #### 5 8410-2 ####[facility]ORYCLIA [id number] [address] Platelets (Bld) [#/Vol] 179 10*3/uL Normal 150-400 [facility] Comment on above: Order Comment: Speci men Type: BLOOD SPECIMENOrdering Facility: [facility] Address: [address] [place] [address] Performed By: #### 5 8410-2 ####[facility]ORYCLIA [id number] [address] OF [place] RBC (Bld) [#/Vol] 3.58 10*6/uL Low 3.90-5.20 [facility] Comment on above: Order Comment: Speci men Type: BLOOD SPECIMENOrdering Facility: [facility] Address: [address] [place], [place] [address] Performed By: #### 5 8410-2 ####[facility]ORYCLIA [id number] [address] OF [facility] WBC (Bld) [#/Vol] 8.09 10*3/uL Normal 3.70-11.00 [facility] Comment on above: Order Comment: Speci men Type: BLOOD SPECIMENOrdering Facility: [facility] Address: [address] [place] [address] Performed By: #### 5 8410-2 ####[facility]ATORYCLIA [id number] [address] OF [facility] CONSULTon 08-04-2024 CONSULT HNO ID: [id number] Author: VIKTORIYA RODRIGUEZ PA-C Service: Plastic Surgery Author Type: Physician X Ray Developing Machine Operator Type: Consults Filed: 08/04/2024 10:25 Note Text: PLASTIC SURGERY INPATIENT PROGRESS NOTE SERVICE DATE: 08/04/2024 SERVICE TIME: 8:57 AM Assessment/Plan 84 yo female with mildly displaced nasal bone fracture after GLF - Non-operative nasal bone fractures - Nasal precautions for 3 weeks - Head elevation - Soft diet - Cool compresses to face - Bacitracin BID to upper lip laceration - FU 1-2 weeks Viktoriya Rodriguez PA-C Subjective INTERVAL HPI: 84 year old female with PMH of recurrent falls, CAD s/p PCI w/stents(2001) on ASA, CABG (2001) HTN, HLD, T2DM, CKD, possible Leg DVT who presents as trauma consult following a GLF on 07/31. Pt states that she fell after the wheel of her walker got caught, causing her to fall and strike her head on the floor. Pt denies LOC and states that she remembers the entire event. Pt was seen at [facility] where CT imaging showed a SDH w/possible SAH prompting transfer to [facility] for further evaluation. Pt has no neuro deficit on exam. Pt takes baby ASA daily, no other anticoagulation. She denies diplopia or blurred vision. + edentulous. SHe does report trouble with nasal breathing with her nose currently blocked with dried blood. Current Facility-Administered Medications Medication Dose Route Frequency NaCl 0.9% iv flush bag 20 mL INTRAVENOUS PRN dextrose 15 gram/32 mL 15 g (TRUEPLUS) 15 g ORAL PRN Or glucagon 1 mg injection 1 mg INTRAMUSCULAR PRN Or dextrose 10% iv bolus 12.5 g INTRAVENOUS PRN melatonin 9 mg tab(s) 9 mg ORAL DAILY (8 PM) acetaminophen 650 mg tab(s) (TYLENOL) 650 mg ORAL q 6 H PRN oxyCODONE IR 2.5 mg tab(s) (ROXICODONE) 2.5 mg ORAL q 6 H PRN senna-docusate 8.6-50 mg 1 tablet (SENNA-S) 1 tablet ORAL BID levETIRAcetam 500 mg tab(s) (KEPPRA) 500 mg ORAL BID insulin lispro injection (rapid acting) (ADMElog) SUBCUTANEOUS w MEALS AND HS benzocaine-menthol 1 lozenge (CEPACOL) 1 lozenge MUCOUS MEMBRANE (TOPICAL MOUTH AND THROAT) q 2 H PRN clonazePAM 0.5 mg tab(s) (KlonoPIN) 0.5 mg ORAL BID PRN furosemide 40 mg tab(s) (LASIX) 40 mg ORAL DAILY rosuvastatin 10 mg tab(s) (CRESTOR) 10 mg ORAL AT BEDTIME busPIRone 10 mg tab(s) (BUSPAR) 10 mg ORAL TID sertraline 100 mg tab(s) (ZOLOFT) 100 mg ORAL DAILY heparin 5,000 Units injection 5,000 Units SUBCUTANEOUS q 12 H gabapentin 100 mg cap(s) (NEURONTIN) 100 mg ORAL DAILY Objective PHYSICAL EXAM: BP 168/78 Pulse 77 Temp (Src) 98.6 (Oral) Resp 22 Ht 4' 9 (1.45m) Wt 137 lb 2 oz (62.2kg) SpO2 92% BMI 29.67 kg/(m2). O2 Therapy: Nasal Cannula, Liters (Numeric Only): 2.0 Physical Exam Performed GENERAL: Alert, no distress, cooperative, in chair eating SKIN: laceration repaired upper lip HEAD/SINUSES: Facial ecchymosis and edema NEURO: Cranial nerves II-XII intact DATA: Diagnostic tests reviewed for today's visit: Most recent imaging Medication and Non-Pharmacologic VTE Prophylaxis/Anticoagul ants Anticoagulant AND Antiplatelet Medications (From admission, onward) Start Dose Route Frequency Last Action Ordered Stop 08/03/24 2100 heparin 5,000 Units injection 5,000 Units SUBCUTANEOUS EVERY 12 HOURS Given, 08/04 0834 08/03/24 1532 -- 08/02/24 1030 activity - mobilize patient ([place], [place]) 08/01/24 1316 vte pharmacologic prophylaxis contraindicated ([place]) 08/01/24 1316 pneumatic compression sleeve(s) ([place], [place]) VTE Prophylaxis: VTE prophylaxis appropriate SIGNATURE: Viktoriya Rodriguez PA-C PATIENT NAME: Tamica Anderson DATE: August 04, 2024 TIME: 8:57 AM PHONE: [phone] [facility] CONSULT PROGon 08-04-2024 CONSULT PROG HNO ID: [id number] Author: SU JOHN PA Service: Geriatrics Author Type: Physician X Ray Developing Machine Operator Type: Consult Progress Note Filed: 08/04/2024 15:32 Note Text: GERIATRIC MEDICINE PROGRESS NOTE SERVICE DATE: 08/04/2024 SERVICE TIME: 11:15 AM [id number] 4-* DIAGNOSES: HTN, HLD, KATTY, T2DM, anxiety, depression, subdural hematoma, L nasal fracture, lip laceration, delirium BASELINE MENTATION: AANDO X3 INTERVAL HPI: Patient is resting in the hospital bed, opened eyes to voice, states she is feeling very tired today, blinds open. Able to state name, age, , place, month, year, and why she is at the hospital. Denies hallucinations. Endorses weakness, fatigue. Denies facial pain, chest pain, palpitations, cough, shortness of breath, abdominal pain, nausea, dizziness, headaches, or vision changes. Slept well per RN, voiding without difficulty, no BM, poor PO intake. Subjective DNR/CODE STATUS: Full code Advance Directives: Living Will? Not in chart HCPOA? Not in chart Surrogate Decision Maker? Majority of 3 children Medications: MEDICATIONS REVIEWED: Yes Current Facility-Administered Medications Medication Dose Route Frequency NaCl 0.9% iv flush bag 20 mL INTRAVENOUS PRN dextrose 15 gram/32 mL 15 g (TRUEPLUS) 15 g ORAL PRN Or glucagon 1 mg injection 1 mg INTRAMUSCULAR PRN Or dextrose 10% iv bolus 12.5 g INTRAVENOUS PRN melatonin 9 mg tab(s) 9 mg ORAL DAILY (8 PM) acetaminophen 650 mg tab(s) (TYLENOL) 650 mg ORAL q 6 H PRN oxyCODONE IR 2.5 mg tab(s) (ROXICODONE) 2.5 mg ORAL q 6 H PRN senna-docusate 8.6-50 mg 1 tablet (SENNA-S) 1 tablet ORAL BID levETIRAcetam 500 mg tab(s) (KEPPRA) 500 mg ORAL BID insulin lispro injection (rapid acting) (ADMElog) SUBCUTANEOUS w MEALS AND HS benzocaine-menthol 1 lozenge (CEPACOL) 1 lozenge MUCOUS MEMBRANE (TOPICAL MOUTH AND THROAT) q 2 H PRN clonazePAM 0.5 mg tab(s) (KlonoPIN) 0.5 mg ORAL BID PRN furosemide 40 mg tab(s) (LASIX) 40 mg ORAL DAILY rosuvastatin 10 mg tab(s) (CRESTOR) 10 mg ORAL AT BEDTIME busPIRone 10 mg tab(s) (BUSPAR) 10 mg ORAL TID sertraline 100 mg tab(s) (ZOLOFT) 100 mg ORAL DAILY heparin 5,000 Units injection 5,000 Units SUBCUTANEOUS q 12 H gabapentin 100 mg cap(s) (NEURONTIN) 100 mg ORAL DAILY Allergies: Allergies As of Date: 08/01/2024 (No Known Allergies) Fully Assessed 08/01/2024 Review of Systems Constitutional: Positive for malaise/fatigue. HENT: Denies facial pain Respiratory: Negative for cough and shortness of breath. Cardiovascular: Negative for chest pain and palpitations. Gastrointestinal: Negative for abdominal pain, nausea and vomiting. Neurological: Positive for weakness. Negative for dizziness and headaches. Psychiatric/Behavioral : Negative for hallucinations. Objective 08/03/24 1209 08/03/24 1609 08/03/24 1917 08/03/245 BP: 157/70 169/73 124/75 145/68 Pulse: 77 77 82 83 Resp: 14 16 19 Temp: 36.8 ?C (98.3 ?F) 37.4 ?C (99.3 ?F) 37.1 ?C (98.8 ?F) TempSrc: Oral Oral Oral Oral SpO2: 96% 91% 90% 90% Weight: Height: Physical Exam Vitals reviewed. Constitutional: General: She is sleeping. Comments: Multiple bruises, frail HENT: Mouth/Throat: Mouth: Mucous membranes are dry. Cardiovascular: Rate and Rhythm: Normal rate and regular rhythm. Pulmonary: Effort: Pulmonary effort is normal. Abdominal: General: Bowel sounds are normal. Palpations: Abdomen is soft. Tenderness: There is no abdominal tenderness. Musculoskeletal: Right lower leg: Edema present. Left lower leg: Edema present. Skin: General: Skin is warm and dry. Neurological: Mental Status: She is oriented to person, place, and time and easily aroused. Psychiatric: Attention and Perception: Attention normal. She does not perceive auditory or visual hallucinations. Mood and Affect: Affect is flat. Behavior: Behavior is slowed. Behavior is not agitated, aggressive, hyperactive or combative. Comments: Soft speech 4AT: Alertness: Normal or mild sleepiness (0) AMT- age, , place, year: No mistakes (0) Attention: Can't do 7 or refuses start (1) Acute or fluctuating cognitive status: Yes (4) 4AT Score: 5/12, indicating possible delirium and/or cognitive impairment DELIRIUM ASSESSMENT: DEAR assessment: HIGH RISK BCAM: Positive 08/04 @0835 Anti-psychotics in 48 hours: No Opioids/Benzodiazepine s in 48 hrs: Yes , clonazepam, oxycodone Anti-cholinergics on Board: No Restraints: No Indwelling Catheters: No Last BM: N/A, bowel regimen: senna-s Activity in the Past 24 hours: bed, chair, PT/OT Need for Ambulatory Devices: Yes , walker Patient is AANDO X3, slowed, normal attention, sleepy. Does not appear to be hallucinating. Patient has the following risk factors for delirium: advanced age, unfamiliar setting/sounds, decreased mobility, vision impairment, hearing impairment, medication on Beers Criteria (clonazepam, gabapentin, oxycodone), fall. (more content not included)... Normal [facility] ARTERIAL BLOOD GASESon 08-03 Base excess Calc (Bld) [Moles/Vol] 3 mmol/L High 0-2 [facility] Comment on above: Order Comment: Speci men Type: ARTERIAL BLOOD SPECIMENOrdering Facility: [facility] Address: [address] [place] [address] Performed By: #### A LLBG ####[facility]ORYCLIA [id number] [address] Body temperature 97.52 [degF] Normal [facility] Comment on above: Order Comment: Speci men Type: ARTERIAL BLOOD SPECIMENOrdering Facility: [facility] Address: [address] [place] [address] Performed By: #### A LLBG ####[facility]ORYCLIA [id number] [address] OF [facility] Calcium.ionized (BldV) [Mass/Vol] 1.20 mmol/L Normal 1.08-1.30 [facility] Comment on above: Order Comment: Speci men Type: ARTERIAL BLOOD SPECIMENOrdering Facility: [facility] Address: [address] [place] [address] Performed By: #### A LLBG ####[facility]ORYCLIA [id number] [address] Calcium.ionized adjusted to pH 7.4 (BldA) [Moles/Vol] 1.20 mmol/L Normal 1.08-1.30 [facility] Comment on above: Order Comment: Speci men Type: ARTERIAL BLOOD SPECIMENOrdering Facility: [facility] Address: [address] [place] [address] Performed By: #### A LLBG ####[facility]ORYCLIA [id number] [address] [place] Carboxyhemoglobin (BldA) [Mass fraction] 1.4 % Normal 0.0-2.0 [facility] Comment on above: Order Comment: Speci men Type: ARTERIAL BLOOD SPECIMENOrdering Facility: [facility] [facility] Address: [address] [place] [address] Result Comment: Carb oxyhemoglobin Reference Range for Smokers: 2.0-8.0% Performed By: #### A LLBG ####[facility]ORATORYCLIA [id number] [place] [address] [place] Chloride [Moles/Vol] 105 mmol/L Normal 97-105 [facility] Comment on above: Order Comment: Speci men Type: ARTERIAL BLOOD SPECIMENOrdering Facility: [facility] Address: [address] [place] [address] Performed By: #### A LLBG ####[facility]ORATORYCLIA [id number] [address] [place] CO2 (Bld) [Partial pressure] 45 mm Hg Normal 36-46 [facility] Comment on above: Order Comment: Speci men Type: ARTERIAL BLOOD SPECIMENOrdering Facility: [facility] Address: [address] [place] [address] Performed By: #### A LLBG ####[facility]ORATORYCLIA [id number] [address] OF [facility] CO2 adjusted to patient's actual temperature (Bld) [Partial pressure] 44 mmHg Normal 36-46 [facility] Comment on above: Order Comment: Speci men Type: ARTERIAL BLOOD SPECIMENOrdering Facility: [facility] Address: [address] [place] [address] Performed By: #### A LLBG ####[facility]ATORYCLIA [id number] [address] [place] Glucose [Mass/Vol] 104 mg/dL Normal 60-105 [facility] Comment on above: Order Comment: Speci men Type: ARTERIAL BLOOD SPECIMENOrdering Facility: [facility] Address: [address] [place] [address] Performed By: #### A LLBG ####[facility]ATORYCLIA [id number] [place] [address] [place] HCO3 (Bld) [Moles/Vol] 27 mmol/L High 22-26 [facility] Comment on above: Order Comment: Speci men Type: ARTERIAL BLOOD SPECIMENOrdering Facility: [facility] Address: [address] [place] [address] Performed By: #### A LLBG ####[facility]ORYCLIA [id number] [address] [place] Hematocrit (Bld) [Volume fraction] 31.9 % Low 36.0-46.0 [facility] Comment on above: Order Comment: Speci men Type: ARTERIAL BLOOD SPECIMENOrdering Facility: [facility] Address: [address] [place] [address] Performed By: #### A LLBG ####[facility]ORYCLIA [id number] [address] [place] Hemoglobin (Bld) [Mass/Vol] 10.3 g/dL Low 11.5-15.5 [facility] Comment on above: Order Comment: Speci men Type: ARTERIAL BLOOD SPECIMENOrdering Facility: [facility] Address: [address] [place] [address] Performed By: #### A LLBG ####[facility]ORYCLIA [id number] [address] [place] Lactate [Moles/Vol] 0.6 mmol/L Normal 0.5-2.2 [facility] Comment on above: Order Comment: Speci men Type: ARTERIAL BLOOD SPECIMENOrdering Facility: [facility] Address: [address] [place] [address] Performed By: #### A LLBG ####[facility]ORYCLIA [id number] [address] [place] LITERS 4 Liters/min Normal [facility] Comment on above: Order Comment: Speci men Type: ARTERIAL BLOOD SPECIMENOrdering Facility: [facility] Address: [address] [place] [address] Performed By: #### A LLBG ####[facility]ORYCLIA [id number] [address] [place] Methemoglobin (Bld) [Mass fraction] 0.5 % Normal 0.0-1.5 [facility] Comment on above: Order Comment: Speci men Type: ARTERIAL BLOOD SPECIMENOrdering Facility: [facility] Address: [address] [place] [address] Performed By: #### A LLBG ####[facility]ORYCLIA [id number] [address] O2 THERAPY NC = Nasal Cannula Normal [facility] Comment on above: Order Comment: Speci men Type: ARTERIAL BLOOD SPECIMENOrdering Facility: [facility] Address: [address] [place] [address] Performed By: #### A LLBG ####[facility]ORYCLIA [id number] [address] [place] Oxygen (Bld) [Partial pressure] 63 mm Hg Low 85-95 [facility] Comment on above: Order Comment: Speci men Type: ARTERIAL BLOOD SPECIMENOrdering Facility: [facility] Address: [address] [place] [address] Performed By: #### A LLBG ####[facility]ORYCLIA [id number] [address] Oxygen adjusted to patient's actual temperature (Bld) [Partial pressure] 61 mmHg Low 85-95 [facility] Comment on above: Order Comment: Speci men Type: ARTERIAL BLOOD SPECIMENOrdering Facility: [facility] Address: [address] [place] [address] Performed By: #### A LLBG ####[facility]ORYCLIA [id number] [address] [place] Oxyhemoglobin (BldA) [Mass fraction] 89 % Low 95-98 [facility] Comment on above: Order Comment: Speci men Type: ARTERIAL BLOOD SPECIMENOrdering Facility: [facility] Address: [address] [place] [address] Performed By: #### A LLBG ####[facility]ORYCLIA [id number] [address] [place] pH (Bld) 7.40 [pH] Normal 7.35-7.45 [facility] Comment on above: Order Comment: Speci men Type: ARTERIAL BLOOD SPECIMENOrdering Facility: [facility] Address: [address] [place] [address] Performed By: #### A LLBG ####[facility]ORYCLIA [id number] [address] [place] pH adjusted to patient's actual temperature (Bld) 7.41 Normal 7.35-7.45 [facility] Comment on above: Order Comment: Speci men Type: ARTERIAL BLOOD SPECIMENOrdering Facility: [facility] Address: [address] [place] [address] Performed By: #### A LLBG ####[facility]ORYCLIA [id number] [place] [address] [place] Potassium [Moles/Vol] 3.5 mmol/L Normal 3.5-5.0 [facility] Comment on above: Order Comment: Speci men Type: ARTERIAL BLOOD SPECIMENOrdering Facility: [facility] Address: [address] [place] [address] Performed By: #### A LLBG ####[facility]ORYCLIA [id number] [place] [address] [place] Sodium [Moles/Vol] 138 mmol/L Normal 136-144 [facility] Comment on above: Order Comment: Speci men Type: ARTERIAL BLOOD SPECIMENOrdering Facility: [facility] Address: [address] [place] [address] Performed By: #### A LLBG ####[facility]ATORYCLIA [id number] [place] [address] [place] Basic metabolic 2000 panelon 08-03-2024 Anion gap [Moles/Vol] 13 mmol/L Normal 8-15 [facility] Comment on above: Order Comment: Speci men Type: BLOOD SPECIMENOrdering Facility: [facility] Address: [address] [place] [address] Performed By: #### 2 4321-2 ####[facility]ORYCLIA [id number] [place] [address] [place] Calcium [Mass/Vol] 9.3 mg/dL Normal 8.5-10.2 [facility] Comment on above: Order Comment: Speci men Type: BLOOD SPECIMENOrdering Facility: [facility] Address: [address] [place] [address] Performed By: #### 2 4321-2 ####[facility]ATORYCLIA [id number] [place] [address] [place] Chloride [Moles/Vol] 100 mmol/L Normal 98-107 [facility] Comment on above: Order Comment: Speci men Type: BLOOD SPECIMENOrdering Facility: [facility] Address: [address] [place] [address] Performed By: #### 2 4321-2 ####[facility]ORYCLIA [id number] [place] [address] [place] CO2 [Moles/Vol] 25 mmol/L Normal 22-30 [facility] Comment on above: Order Comment: Speci men Type: BLOOD SPECIMENOrdering Facility: [facility] Address: [address] [place] [address] Performed By: #### 2 4321-2 ####[facility]ATORYCLIA [id number] [address] [place] Creatinine [Mass/Vol] 0.85 mg/dL Normal 0.58-0.96 [facility] Comment on above: Order Comment: Speci men Type: BLOOD SPECIMENOrdering Facility: [facility] Address: [address] [place] [address] Performed By: #### 2 4321-2 ####[facility]ATORYCLIA [id number] [address] Creatinine and Glomerular filtration rate.predicted panel (S/P/Bld) 68 mL/min/1.73m??? Normal >=60 [facility] Comment on above: Order Comment: Speci men Type: BLOOD SPECIMENOrdering Facility: [facility] Address: [address] [place] [address] Result Comment: Venita mated Glomerular Filtration Rate (eGFR) is calculated using the 2020 CKD-EPI creatinine equation. This equation utilizes serum creatinine, sex, and age as parameters. The creatinine assay has traceable calibration to isotope dilution-mass spectrometry. Refer to KDIGO guidelines for clinical interpretation. In patients with unstable renal function, e.g. those with acute kidney injury, the eGFR may not accurately reflect actual GFR. Performed By: #### 2 4321-2 ####[facility]ATORYCLIA [id number] [place] [address] [place] Glucose [Mass/Vol] 102 mg/dL High 74-99 [facility] Comment on above: Order Comment: Speci men Type: BLOOD SPECIMENOrdering Facility: [facility] Address: [address] [place] [address] Result Comment: The [place] Diabetes Association (ADA) provides guidance for cutoff values for fasting glucose and random glucose. The ADA defines fasting as no caloric intake for at least 8 hours. Fasting plasma glucose results between 100 to 125 mg/dL indicate increased risk for diabetes (prediabetes). Fasting plasma glucose results greater than or equal to 126 mg/dL meet the criteria for diagnosis of diabetes. In the absence of unequivocal hyperglycemia, results should be confirmed by repeat testing. In a patient with classic symptoms of hyperglycemia or hyperglycemic crisis, random plasma glucose results greater than or equal to 200 mg/dL meet the criteria for diagnosis of diabetes. Reference: Standards of Medical Care in Diabetes 2016, British Diabetes Association. Diabetes Care. 2016.39(Suppl 1). Performed By: #### 2 4321-2 ####[facility]ATORYCLIA [id number] [place] [address] [place] Potassium [Moles/Vol] 3.7 mmol/L Normal 3.7-5.1 [facility] Comment on above: Order Comment: Filipei men Type: BLOOD SPECIMENOrdering Facility: [facility] Address: [address] [place] [address] Performed By: #### 2 4321-2 ####[facility]ATORYCLIA [id number] [place] [address] [place] Sodium [Moles/Vol] 138 mmol/L Normal 136-144 [facility] Comment on above: Order Comment: Speci men Type: BLOOD SPECIMENOrdering Facility: [facility] Address: [address] [place] [address] Performed By: #### 2 4321-2 ####[facility]ATORYCLIA [id number] [place] [id number] [place] [facility] Urea nitrogen [Mass/Vol] 22 mg/dL High 7-21 [facility] Comment on above: Order Comment: Speci men Type: BLOOD SPECIMENOrdering Facility: [facility] Address: [address] [place] [address] Performed By: #### 2 4321-2 ####[facility]ATORYCLIA [id number] [address] CBC panel Auto (Bld)on 08-03 Erythrocyte distribution width (RBC) [Ratio] 13.1 % Normal 11.5-15.0 [facility] Comment on above: Order Comment: Speci men Type: BLOOD SPECIMENOrdering Facility: [facility] Address: [address] [place] [address] Performed By: #### 5 8410-2 ####[facility]ATORYCLIA [id number] [address] STATES OF [facility] Hematocrit (Bld) [Volume fraction] 31.0 % Low 36.0-46.0 [facility] Comment on above: Order Comment: Speci men Type: BLOOD SPECIMENOrdering Facility: [facility] Address: [address] [place] [address] Performed By: #### 5 8410-2 ####[facility]ORYCLIA [id number] [address] Hemoglobin (Bld) [Mass/Vol] 10.1 g/dL Low 11.5-15.5 [facility] Comment on above: Order Comment: Speci men Type: BLOOD SPECIMENOrdering Facility: [facility] Address: [address] [place] [address] Performed By: #### 5 8410-2 ####[facility]ATORYCLIA [id number] [address] [place] [facility] MCH (RBC) [Entitic mass] 29.5 pg Normal 26.0-34.0 [facility] Comment on above: Order Comment: Speci men Type: BLOOD SPECIMENOrdering Facility: [facility] Address: [address] [place] [address] Performed By: #### 5 8410-2 ####[facility]ATORYCLIA [id number] [address] OF [facility] MCHC (RBC) [Mass/Vol] 32.6 g/dL Normal 30.5-36.0 [facility] Comment on above: Order Comment: Speci men Type: BLOOD SPECIMENOrdering Facility: [facility] Address: [address] [place] [address] Performed By: #### 5 8410-2 ####[facility]ATORYCLIA [id number] [address] [place] OF [facility] MCV (RBC) [Entitic vol] 90.6 fL Normal 80.0-100.0 [place] Comment on above: Order Comment: Speci men Type: BLOOD SPECIMENOrdering Facility: [facility] Address: [address] [place] [address] Performed By: #### 5 8410-2 ####[facility]ATORYCLIA [id number] [address] Nucleated RBC (Bld) [#/Vol] 10*3/uL Normal <0.01 [facility] Comment on above: Order Comment: Speci men Type: BLOOD SPECIMENOrdering Facility: [facility] Address: [address] [place] [address] Performed By: #### 5 8410-2 ####[facility]ATORYCLIA [id number] [address] Platelet mean volume (Bld) [Entitic vol] 9.2 fL Normal 9.0-12.7 [facility] Comment on above: Order Comment: Speci men Type: BLOOD SPECIMENOrdering Facility: [facility] Address: [address] [place] [address] Performed By: #### 5 8410-2 ####[facility]ATORYCLIA [id number] [place] [address] [facility] [place] Platelets (Bld) [#/Vol] 145 10*3/uL Low 150-400 [facility] Comment on above: Order Comment: Speci men Type: BLOOD SPECIMENOrdering Facility: [facility] Address: [address] [place] [address] Performed By: #### 5 8410-2 ####[facility]ORYCLIA [id number] [address] RBC (Bld) [#/Vol] 3.42 10*6/uL Low 3.90-5.20 [facility] Comment on above: Order Comment: Speci men Type: BLOOD SPECIMENOrdering Facility: [facility] Address: [address] [place] [address] Performed By: #### 5 8410-2 ####[facility]ORYCLIA [id number] [address] WBC (Bld) [#/Vol] 8.04 10*3/uL Normal 3.70-11.00 [facility] Comment on above: Order Comment: Speci men Type: BLOOD SPECIMENOrdering Facility: [facility] Address: [address] [place] [address] Performed By: #### 5 8410-2 ####[facility]ORATORYCLIA [id number] [place] [id number] [facility] CONSULTon 08-03-2024 CONSULT HNO ID: [id number] Author: SU JOHN PA Service: Geriatrics Author Type: Physician X Ray Developing Machine Operator Type: Consults Filed: 08/03/2024 15:59 Note Text: GERIATRIC MEDICINE CONSULT NOTE SERVICE DATE: 08/03/2024 SERVICE TIME: 10:40 AM [id number] 4-* REASON FOR CONSULT: Fall with TBI, altered mental status REQUESTING PROVIDER: Diamante Galindo CNP HISTORY OF PRESENT ILLNESS: Tamica Anderson is a 84 year old female with a past medical history of HTN, HLD, KATTY, T2DM, anxiety, and depression who was admitted on 5/17 for subdural hematoma. Patient walking into the bathroom when she tripped and fell forward, denies LOC, was taken to [facility] ED for evaluation. Noted patient admitted to having 6 falls over the last month. Imaging revealed small amount of acute appearing subdural hemorrhage anterior inferior interhemispheric frontal measures up to 7mm in thickness, some trace adjacent sulcal inferior frontal possible subarachnoid hemorrhage, and mildly displaced left nasal fracture. Was transferred to [facility] for trauma evaluation, recommended admission under trauma to ICU. Neurosurgery consulted for SDH, recommended non-operative management. Noted positive CAM-ICUs, was wn restraints and noted to be on precedex for agitation. Was later transferred to [facility] on 08/02. Noted increased oxygen requirement overnight, was on 4L NC but now back down to 2L. Determined to be HIGH RISK for delirium with DEAR assessment. Positive BCAM noted. Patient is resting in the hospital bed, opened eyes to voice, blinds open. Slow to answer questions, confused. Able to state name, age, , place, month, year, why she is at the hospital. Does not appear to be hallucainting. Endorses weakness and fatigue. States it is difficult to drink water with a straw, was seen by speech therapy earlier. Denies chest pain, palpitations, cough, shortness of breath, abdominal pain, nausea, dizziness, headaches, or vision changes since the fall. Slept okay overnight, ambulating to the bathroom, voiding without difficulty, no BM, tolerating meals but poor PO intake. Patient having difficulty providing information on how she was doing prior to admission. Had difficulty stating how many children she has and who helps her at home. Called Derrick (son) and left voicemail, awaiting call back. Derrick (son) called back @1500. States patient is AANDO X3 at baseline, denies history of cognitive impairment, dementia or delirium. States it takes her a while to wake up in the mornings because she does not use her CPAP but then once she is awake, she is very with-it, denies memory concerns. Denies ALUTIIQ, wears glasses for paying bills or reading, eyes are regularly checked due to diabetes. Son lives with the patient, ranch style home, 3 steps to get into the garage and is always supervised while on stairs. Patient wears a life alert and there is an intercom system at home for easy communication. Son endorses concern about her frequent falls, is concerned that patient will decline SNF due to poor experiences in the past. Independent in B-ADLs. Assistance/dependent in most I-ADLs. No longer driving. Able to manage her own medications and bills. Unsure how many falls the patient has had over the last 6 months but states many. Has not needed to seek medical attention for falls, followed-up with PCP recently due to falls and home therapy was recommended. Has been using a walker while ambulating, also has a cane at home. No other ED visits or hospital admissions within the last 6 months, went to the ED in the fall last year for a collar bone fracture. Medications reviewed, noted patient chronically takes benzodiazepines. Was previously on alprazolam but was switched to clonazepam due to insurance. States anxiety/depression has been well controlled with medications (sertraline, buspar, clonazepam). Denies dysphagia, odynophagia, or weight loss. Patient typically eats a large breakfast and dinner, likes chocolate protein shakes. Sleeps in normally until about 9-10am. Denies tobacco, alcohol, or illicit drug use. Subjective DNR/CODE STATUS: Full code Advance Directives: Living Will? Not in chart HCPOA? Not in chart Surrogate Decision Maker? Majority of 3 children PCP: Dr. Dominique Lang Past Medical History: No past medical history on file. Past Surgical History: No past surgical history on file. Family History: No family history on file. Social History: Medications: MEDICATIONS REVIEWED: Yes OARRS Check: PDMP website checked and validated. All prescriptions have been APPROPRIATELY filled. No suspicious activity was identified. 08/03/2024 by LUZ Kimball Current Facility-Administered Medications Medication Dose Route Frequency NaCl 0.9% iv flush bag 20 mL INTRAVENOUS PRN dextrose 15 gram/32 mL 15 g (TRUEPLUS) 15 g ORAL PRN Or glucagon 1 mg injection 1 mg INTRAMUSCULAR PRN Or dextrose 10% iv b (more content not included)... Normal [facility] ECG COMPLETEon 08-03-2024 ECG COMPLETE Ventricular Rate : 7 6 BPM Atrial Rate : 76 BPM P-R Interval : 146 ms QRS Duration : 126 ms Q-T Interval : 414 ms QTC Calculation(Bazett) : 465 ms Calculated P [place] : 27 degrees Calculated R [place] : -8 degrees Calculated T [place] : 6 degrees NORMAL SINUS RHYTHM RIGHT BUNDLE BRANCH BLOCK MINIMAL VOLTAGE CRITERIA FOR LVH, MAY BE NORMAL VARIANT ( R in aVL ) ABNORMAL ECG NO PREVIOUS ECGS AVAILABLE Confirmed by MD MOODY YASSAR ([id number]) on 08/04/2024 2:03:32 PM NAME : TAMICA ANDERSON PID : [id number] : 1940 Gender : Female Race : ORD : [id number] Procedure Date : Aug 03 2024 08:29:50 Edit Date : Aug 04 2024 14:03:33 Diagnosis: NORMAL SINUS RHYTHM RIGHT BUNDLE BRANCH BLOCK MINIMAL VOLTAGE CRITERIA FOR LVH, MAY BE NORMAL VARIANT ( R in aVL ) ABNORMAL ECG NO PREVIOUS ECGS AVAILABLE Confirmed by MD MOODY YASSAR ([id number]) on 08/04/2024 2:03:32 PM Test Reason : Check QT Location : [address] : [place] [address] Overread By : MD MOODY YASSAR Edited By : MD MOODY YASSAR Referred By : , Acquired by : ANDRÉS HARVEY [facility] THERAPY NTon 08-03-2024 THERAPY NT HNO ID: [id number] Author: MAGALI ESPINOSA OTR/Catherine Service: Occupational Therapy Author Type: Occupational Therapist Type: Therapy (PT/OT/Speech/Resp) Filed: 08/03/2024 13:38 Note Text: Occupational Therapy Evaluation Summary SERVICE DATE: 08/03/2024 SERVICE TIME: 1116 to 1131 ROOM: [place] [address] OT 6 Clicks Score: 15 DISCHARGE RECOMMENDATIONS Subacute/SNF Recommended Discharge Disposition Comments: Pt currently functioning below functional baseline at this time with multiple recent falls. Recommending SNF at [facility] for continued skilled therapy services to assist with returning to OF and maximizing indepedence. Recommended Discharge Disposition Due to: Functional deficits requiring ongoing therapy service prior to discharge home., ADL impairment, Functional status decline, Requires multiple therapy disciplines Anticipated Discharge Needs: Physical Assist at Home Physical Assist at Home for: Stairs, Shopping, Transportation, Ambulation, Laundry ASSESSMENT Response to Therapy Interventions: Cognitive Deficits, Good Participation in Activities, Low Activity Tolerance, Pain If patient declines SNF, will need 24/7 supervision/assist at home secondary to multiple recent falls. PRECAUTIONS Fall Risk, Bed/Chair Alarm CURRENT HOSPITAL COURSE Patient presented to the ED after falling at home. Patient presented to the ED with significant bruising and lip lacerations. Imaging showed SDH and a mildly displaced nasal fracture. Patient presented with no pain. Relevant Past Medical History: HTN, DM2, and Hyperlipidemia HOME LIVING Patient Lives With: Family, Other: See Comment Comments: Son lives in basement. Assistance Available: Part-Time Entry To Home: Stairs Number Of Stairs Into Home: 3 Number Of Stairs To Bed/Bath: 0 Tub/Shower Type: walk in shower Laundry: son can assist with Equipment Owned: Walker- Wheeled PRIOR FUNCTIONAL LEVEL Within Functional Limits, Other: See Comment Assistance Required With: Transportation Patient was IND prior to falling. Ambulated at home with a wheeled-walker but is not driving. Baseline Cognition: Oriented to self, Oriented to place, Oriented to time, Oriented to situation SUBJECTIVE Pt pleasant and agreeable to OT session COGNITION Orientation Deficits: (AxOx3) Responsiveness: Awake, Alert Follows Commands: 1-step Commands, Cueing Needed Cueing to Follow Commands: Minimum Executive Function Deficits: Sequencing, Safety Awareness, Problem Solving, Insight to Deficits Short Blessed Final Score: 10 (08/03/24) The Short Blessed Test is a cognitive assessment that measures in the domains of orientation, concentration/attentio n, and short-term recall. Scoring guidelines are as follows: 0-4: Normal cognition 5-9: Questionable impairment (evaluate for early dementing disorder) 10 or more: Impairment consistent with dementia (evaluate for dementing disorder) Please note that this assessment is not used to diagnose dementia but rather is used as a screening tool for early detection of cognitive changes and need for further assessment/testing. THERAPY DIAGNOSIS Reduced mobility-other, Decreased activities of daily living (ADL), Muscle Weakness (generalized), Unsteadiness on feet, Signs and Symptoms Involving Cognitive Functions and Awareness TREATMENT INTERVENTIONS Evaluation Skilled Treatment Time (minutes): 15 $ Evaluation - Moderate (39390) Billed Units: 1 unit TRAINING AND EDUCATION PROVIDED Activity Adaptation/Plastic Parts Fabricator y Strategies, Bed Mobility, Assistive Device Use, Command Following, Expected Functional Level, Grooming Tasks, Functional Mobility Involving ADLs, Lower Extremity Dressing, Orientation, Role of Occupational Therapy, Sitting Balance to Improve [place] with ADLs/Self-Care, Standing Balance to Improve [place] with ADLs/Self-Care, Transfer - Sit to Stand THERAPEUTIC SKILLS USED Activity Dosing, Assessment of Tolerance Including Vitals Response to Activity, Cuing Verbal, Cues for Sequencing/Proper Technique for Activity, Cuing Tactile, Physical Assist, Therapeutic Use of Self FUNCTIONAL STATUS Activities of Daily Living Assist Level Additional Information Feeding Set Up Grooming Contact Guard Assistance Bathing Upper Body Minimal Assistance Bathing Lower Body Moderate Assistance Dressing Upper Body Minimal Assistance Dressing Lower Body Moderate Assistance Toileting Moderate Assistance Mobility Assist Level Additional Information Bed Mobility Supine To Sit: Moderate Assistance Sit to Stand Minimal Assistance Stand to Sit Minimal Assistance Bed to Chair Toilet/Commode Shower Functional Mobility Minimal Assistance Functional Mobility Device: Wheeled Walker RANGE OF MOTION WFL STRENGTH Right Upper Extremity Strength Comments: 3+/5 throughout Left Upper Extremity Strength Comments: 3/5 throughout ACTIVITY TOLERANCE Sitting Activity: bed mobility (more content not included)... Normal [facility] THERAPY NT HNO ID: [id number] Author: CRISELDA MENJIVAR PT Service: Physical Therapy Author Type: Physical Therapist Type: Therapy (PT/OT/Speech/Resp) Filed: 08/03/2024 16:21 Note Text: Physical Therapy Evaluation Summary SERVICE DATE: 08/03/2024 SERVICE TIME: 1132 to 1151 ROOM: [place] [id number] PT 6 Clicks Score: 17 DISCHARGE RECOMMENDATIONS Subacute/SNF Recommended Discharge Disposition Comments: Patient would benefit from a SNF to help address current deficits, improve balance and ambulation skills, and to help return to her functional baseline for saftey. Recommended Discharge Disposition Due to: Functional deficits requiring ongoing therapy service prior to discharge home., Balance deficits Anticipated Discharge Needs: Physical Assist at Home Physical Assist at Home for: Stairs, Shopping, Transportation, Ambulation, Laundry ASSESSMENT Response to Therapy Interventions: Multiple Ongoing Medical Issues, Requires Additional Time to Complete Activities Patient presented below functional baseline. Patient was Santos for sit to stand, stand to sit, and for ambulation. Patient needed cueing to stay in the wheeled walker during ambulation training. Patient got fatigued towards the end of the session. Patient requires ongoing skilled therapy to address deficits and to return to functional baseline. PRECAUTIONS Fall Risk, Bed/Chair Alarm CURRENT HOSPITAL COURSE Patient presented to the ED after falling at home. Patient presented to the ED with significant bruising and lip lacerations. Imaging showed SDH and a mildly displaced nasal fracture. Patient presented with no pain. Relevant Past Medical History: HTN, DM2, and Hyperlipidemia HOME LIVING Patient Lives With: Family, Other: See Comment Comments: Son lives in basement. Assistance Available: Part-Time Entry To Home: Stairs Number Of Stairs Into Home: 3 Number Of Stairs To Bed/Bath: 0 Tub/Shower Type: walk in shower Laundry: son can assist with Equipment Owned: Walker- Wheeled PRIOR FUNCTIONAL LEVEL Within Functional Limits, Other: See Comment Assistance Required With: Transportation Patient was IND prior to falling. Ambulated at home with a wheeled-walker but is not driving. SUBJECTIVE Patient states she is feeling better and has more energy. THERAPY DIAGNOSIS Reduced mobility-other TREATMENT INTERVENTIONS Evaluation $ Evaluation-Moderate (50197) Billed Units: 1 unit Skilled Treatment Time (minutes): 18 TRAINING AND EDUCATION PROVIDED Assistive Device Use, Falls Prevention, Gait Pattern, Reduction of Deviations, Role of Physical Therapy, Standing Balance, Sitting Balance THERAPEUTIC SKILLS USED Cues for Sequencing/Proper Technique for Activity, Cuing Tactile, Cuing Verbal, Physical Assist, Movement Facilitation FUNCTIONAL STATUS Bed Mobility Transfers Sit To Stand: Minimal Assistance Stand To Sit: Minimal Assistance Bed to Chair Gait Minimal Assistance, Additional Information Patient was cued to stay in the walker during ambulation. Gait Device: Wheeled Walker General Deviations/Observation s: Antalgic gait, Jaquan decreased, Flexed trunk posture, Step length decreased Gait Distance (feet): 15x2 Stairs RANGE OF MOTION ROM Limitation Comments ROM Limitation Comments: Decreased BLE knee extension AROM to 75% of normal and decreased right hip flexion AROM to 75% compared to the left hip flexion. STRENGTH Strength Limitation Comments: Grossly 4-/5 MMT for BLE. BALANCE Static Sitting Balance: Good Dynamic Sitting Balance: Fair Static Standing Balance: Fair Dynamic Standing Balance: Fair GOALS Able to Perform HEP with: Independent Transfer Supine to/from Sit with: Contact Guard Assistance Transfer Sit to/from Stand with: Contact Guard Assistance Ambulate with: Contact Guard Assistance Distance: 40 feet Device: Wheeled Walker ROM: Patient will improve right hip flexion AROM to 100% of left hip flexion AROM from 75% of left hip. Rehab Potential: Good Good Rehab Potential Due To: Current objective clinical presentation, Good motivation PLAN PT Frequency: 3 Times Per Week (1-3.) Treatment Interventions: Joint Mobility, Strengthening, Functional Mobility Training, Balance Training, Pain Management SIGNATURE: MATTHEW Saravia PATIENT NAME: Tamica Anderson DATE: August 03, 2024 TIME: 12:13 PM I reviewed and agree with the documentation corresponding to this therapy visit. SIGNATURE: Criselda Menjivar, PT DATE: August 03, 2024 TIME: 4:21 PM Normal [facility] THERAPY NT HNO ID: [id number] Author: JACKIE CHURCH [facility] Service: Speech/Swallow Author Type: Speech Language Pathologist Type: Therapy (PT/OT/Speech/Resp) Filed: 08/03/2024 10:29 Note Text: Speech Therapy Speech Evaluation, Clinical Swallow Evaluation SERVICE DATE: 08/03/2024 SERVICE TIME: 919 to 954 ROOM: [address] Communication deficits identified: Cognitive deficits Swallow Deficits Identified / Suspected: Oropharyngeal dysphagia - poor chewing ability due to being edentulous and with limited jaw/oral range of motion. Recommend the modified diet mentioned below. RECOMMENDATIONS Diet Recommendations Pureed IDDSI Level 4 Thin Liquids IDDSI Level 0 Medications crushed in puree (pudding/applesauce) Swallow Strategy Recommendations Sit upright 90 degrees for all PO Supervision/Assistance for meals Small Bite/Sip Feed / Eat at a slow rate Alternate bites and sips Nursing Recommendations See swallow guide posted in patients room Allow for extended time for thought processing Response to Therapy Interventions: Good participation in activities Rehabilitation Precautions: Dysphagia, Cognitive Linguistics Deficits DISCHARGE RECOMMENDATIONS Recommended Discharge Disposition: Continued Skilled Speech Therapy CURRENT HOSPITAL COURSE 08/01 ground level fall, frontal subdural hematoma, subarachnoid hemorrhage, mildly displaced left nasal fracture, lip laceration. Reason for Speech Therapy Consult: speech, language, cognitve and swallow evaluation post ground level fall Relevant Past Medical History: HTN, DM2 HOME ENVIRONMENT / PRIOR FUNCTIONAL LEVEL Prior Functional Level: Within Functional Limits Patient Lives With: Family (son) Prior Swallowing Function/Diet Textures: Regular Consistency, Thin Liquids IDDSI Level 0 SUBJECTIVE The patient is awake, difficult to understand due to limited oral range of motion. Lip laceration and scabbed, bruised lips. THERAPY DIAGNOSIS Dysphagia, oropharyngeal phase, Unspecified symbolic dysfunctions TREATMENT INTERVENTIONS Speech Language Eval (32361), Clinical Swallow Evaluation (72282) Skilled Treatment Time (minutes): 35 TRAINING AND EDUCATION PROVIDED IN Dysphagia Management, Cognitive Linguistic Strategies, Receptive Language Skills, Expressive Language Skills, Motor Speech Skills THERAPEUTIC SKILLS USED Education on role of discipline / importance of activity, Verbal cuing, Visual cuing, Instruction in self-monitoring / self-assessment OBJECTIVE Current Status Oral Hygiene: Clear, dry oral cavity, Oral Health Assessment Tool (OHAT) (bruised, scabbed lips, left lip laceration) Dentition: Edentulous, Dentures Not Available During Assessment Current Feeding Method: Oral Current Diet Textures: Regular Consistency, Thin Liquids IDDSI Level 0 Current Level Of Communication: Verbal Current Management Of Secretions: Able to self-manage Oral Motor Exam: Within Functional Limits Except Labial Assessment: Lip wound, Edema Labial Strength Impaired: Left Lingual Assessment: Generalized weakness Jaw Range of Motion: Limited ROM ORAL HEALTH ASSESSMENT TOOL Lips: 2 Tongue: 1 Gums and Tissues: 0 Saliva: 0 Natural Teeth: N/A Dentures: 2 Oral Cleanliness: 1 Dental Pain: 1 OHAT Total Score: 7 SWALLOW ASSESSMENT Position Of Patient During Assessment: Upright In Bed Feeding Method: Patient Self-Fed, TRAVELIFT OPERATOR Fed Patient Consistencies Presented: Thin Liquids IDDSI Level 0, Pureed Solids IDDSI Level 4, Solid Thin Liquids Oral Phase: Spillage Left, Spillage Right Thin Liquids Pharyngeal Phase: Throat Clearing- Delayed (coughs if takes too large of a bolus) Pureed Solids Oral Phase: Impaired A-P Transfer, Mild Oral Residue Solid Oral Phase: Impaired Mastication, Impaired A-P Transfer, Moderate Oral Residue Response to Swallow Interventions: The patient demonstrates poor chewing ability to due to no dentures and limited jaw/labial range of motion. Able to orally transfer the puree texture. Able to swallow thin liquids from straw at the right corner of her mouth; does well with one sip at a time. Compensatory Strategies Utilized During Assessment: Sit upright 90 degrees for all PO, Supervision/Assistance for meals., Small Bite/Sip, Feed / Eat at a slow rate, Alternate bites and sips COGNITION The Orientation Log (O-Log) is designed to be a quick quantitative measure of orientation status for use at the bedside with rehabilitation inpatients. Place, time, and situational (Etiology/Event + Pathology/Deficits) domains are assessed. Patient responses are scored according to the following criteria: 3 = correct spontaneously or upon first free recall attempt 2 = correct upon logical cueing (e.g., That was yesterday, so today must be...) 1 = correct upon multiple choice or phonemic cueing 0 = incorrect despite cueing, inappropriate response, or unable to respond Stimulus Response/Score [facility] 3/3 (more content not included)... Normal [facility] URINALYSIS, REFLEX MICROSCOP ICon 08-03-2024 Bilirubin Ql (U) Negative Normal Negative [facility] Comment on above: Order Comment: Speci men Type: URINE SPECIMENOrdering Facility: [facility] Address: [address] [place] [address] Performed By: #### L [id number] ####[facility] LABORATORYCLIA [id number] [address] [place] Clarity (Unsp spec) Clear Normal Clear [facility] Comment on above: Order Comment: Speci men Type: URINE SPECIMENOrdering Facility: [facility] Address: [address] [place] [address] Performed By: #### L [id number] ####[facility]ORATORYCLIA [id number] [address] [place] OF [facility] Color (U) Yellow Normal yellow [facility] Comment on above: Order Comment: Speci men Type: URINE SPECIMENOrdering Facility: [facility] Address: [address] [place] [address] Performed By: #### L [id number] ####[facility]ORATORYCLIA [id number] [address] [place] Glucose Test strip (U) [Mass/Vol] Negative Normal Trace, Negative [facility] Comment on above: Order Comment: Speci men Type: URINE SPECIMENOrdering Facility: [facility] Address: [address] [place] [address] Performed By: #### L [id number] ####[facility]ORYCLIA [id number] [address] [place] Hemoglobin Ql (U) Negative Normal Negative, Trace [facility] Comment on above: Order Comment: Speci men Type: URINE SPECIMENOrdering Facility: [facility] Address: [address] [place] [address] Performed By: #### L [id number] ####[facility]ORATORYCLIA [id number] [address] [place] Hyaline casts (Urine sed) [#/Area] 1-3 /LPF Abnormal 0 /LPF [facility] Comment on above: Order Comment: Speci men Type: URINE SPECIMENOrdering Facility: [facility] Address: [address] [place] [address] Performed By: #### L [id number] ####[facility]ORYCLIA [id number] [address] [place] Ketones Ql (U) 1+ Abnormal Negative, Trace [facility] Comment on above: Order Comment: Speci men Type: URINE SPECIMENOrdering Facility: [facility] Address: [address] [place] [address] Performed By: #### L [id number] ####[facility]ATORYCLIA [id number] [address] Leukocyte esterase Test strip Ql (U) 25 Dipika/uL Normal Negative, 25 Dipika/uL [facility] Comment on above: Order Comment: Speci men Type: URINE SPECIMENOrdering Facility: [facility] Address: [address] [place] [address] Performed By: #### L [id number] ####[facility]ORYCLIA [id number] [address] [place] Nitrite Ql (U) Negative Normal Negative [facility] Comment on above: Order Comment: Speci men Type: URINE SPECIMENOrdering Facility: [facility] Address: [address] [place] [address] Performed By: #### L [id number] ####[facility]ORYCLIA [id number] [address] [place] pH (U) 5.5 [pH] Normal 5.0-8.0 [facility] Comment on above: Order Comment: Speci men Type: URINE SPECIMENOrdering Facility: [facility] Address: [address] [place] [address] Performed By: #### L [id number] ####[facility]ATORYCLIA [id number] [address] Protein (U) [Mass/Vol] 1+ Abnormal Trace , Negative [facility] Comment on above: Order Comment: Speci men Type: URINE SPECIMENOrdering Facility: [facility] Address: [address] [place] [address] Performed By: #### L [id number] ####[facility]ATORYCLIA [id number] [address] RBC LM.HPF (Urine sed) [#/Area] 3-5 /HPF Abnormal 0-3 /HPF [facility] Comment on above: Order Comment: Speci men Type: URINE SPECIMENOrdering Facility: [facility] Address: [address] [place] [address] Performed By: #### L [id number] ####[facility]ITAL[facility]IA [id number] [address] Specific gravity (U) [Rel density] 1.020 Normal 1.005-1.030 [facility] Comment on above: Order Comment: Speci men Type: URINE SPECIMENOrdering Facility: [facility] Address: [address] [place] [address] Performed By: #### L [id number] ####[facility]ORYCLIA [id number] [address] Urobilinogen Ql (U) Normal Normal Normal [facility] Comment on above: Order Comment: Speci men Type: URINE SPECIMENOrdering Facility: [facility] Address: [address] [place] [address] Performed By: #### L [id number] ####[facility]ORYCLIA [id number] [address] WBC LM.HPF (Urine sed) [#/Area] 6-10 /HPF Abnormal 0-5 /HPF [facility] Comment on above: Order Comment: Speci men Type: URINE SPECIMENOrdering Facility: [facility] Address: [address] [place] [address] Performed By: #### L [id number] ####[facility]ORATORYCLIA [id number] [place] [address] [place] Basic metabolic 2000 panelon 08-02-2024 Anion gap [Moles/Vol] 12 mmol/L Normal 8-15 [facility] Comment on above: Order Comment: Speci men Type: BLOOD SPECIMENOrdering Facility: [facility] Address: [address] [place] [address] Performed By: #### 2 4321-2 ####[facility]ORATORYCLIA [id number] [place] [address] [place] Calcium [Mass/Vol] 9.2 mg/dL Normal 8.5-10.2 [facility] Comment on above: Order Comment: Speci men Type: BLOOD SPECIMENOrdering Facility: [facility] Address: [address] [place] [address] Performed By: #### 2 4321-2 ####[facility]ORATORYCLIA [id number] [place] [address] [place] Chloride [Moles/Vol] 100 mmol/L Normal 98-107 [facility] Comment on above: Order Comment: Speci men Type: BLOOD SPECIMENOrdering Facility: [facility] Address: [address] [place] [address] Performed By: #### 2 4321-2 ####[facility]ATORYCLIA [id number] [place] [address] [place] CO2 [Moles/Vol] 25 mmol/L Normal 22-30 [facility] Comment on above: Order Comment: Speci men Type: BLOOD SPECIMENOrdering Facility: [facility] Address: [address] [place] [address] Performed By: #### 2 4321-2 ####[facility]ORATORYCLIA [id number] [place] [address] [place] Creatinine [Mass/Vol] 0.81 mg/dL Normal 0.58-0.96 [facility] Comment on above: Order Comment: Filipezuleyma mei Type: BLOOD SPECIMENOrdering Facility: [facility] Address: [address] [place] [address] Performed By: #### 2 4321-2 ####[facility]ORATORYCLIA [id number] [address] [place] Creatinine and Glomerular filtration rate.predicted panel (S/P/Bld) 72 mL/min/1.73m??? Normal >=60 [facility] Comment on above: Order Comment: Filipezuleyma mei Type: BLOOD SPECIMENOrdering Facility: [facility] Address: [address] [place] [address] Result Comment: Venita mated Glomerular Filtration Rate (eGFR) is calculated using the 2020 CKD-EPI creatinine equation. This equation utilizes serum creatinine, sex, and age as parameters. The creatinine assay has traceable calibration to isotope dilution-mass spectrometry. Refer to KDIGO guidelines for clinical interpretation. In patients with unstable renal function, e.g. those with acute kidney injury, the eGFR may not accurately reflect actual GFR. Performed By: #### 2 4321-2 ####[facility]ATORYCLIA [id number] [place] [address] [place] Glucose [Mass/Vol] 105 mg/dL High 74-99 [facility] Comment on above: Order Comment: Patria mei Type: BLOOD SPECIMENOrdering Facility: [facility] Address: [address] [place] [address] Result Comment: The [place] Diabetes Association (ADA) provides guidance for cutoff values for fasting glucose and random glucose. The ADA defines fasting as no caloric intake for at least 8 hours. Fasting plasma glucose results between 100 to 125 mg/dL indicate increased risk for diabetes (prediabetes). Fasting plasma glucose results greater than or equal to 126 mg/dL meet the criteria for diagnosis of diabetes. In the absence of unequivocal hyperglycemia, results should be confirmed by repeat testing. In a patient with classic symptoms of hyperglycemia or hyperglycemic crisis, random plasma glucose results greater than or equal to 200 mg/dL meet the criteria for diagnosis of diabetes. Reference: Standards of Medical Care in Diabetes 2016, British Diabetes Association. Diabetes Care. 2016.39(Suppl 1). Performed By: #### 2 4321-2 ####[facility]ORATORYCLIA [id number] [place] [address] [place] Potassium [Moles/Vol] 3.6 mmol/L Low 3.7-5.1 [facility] Comment on above: Order Comment: Speci men Type: BLOOD SPECIMENOrdering Facility: [facility] Address: [address] [place] [address] Performed By: #### 2 4321-2 ####[facility]ORATORYCLIA [id number] [place] [address] [place] Sodium [Moles/Vol] 137 mmol/L Normal 136-144 [facility] Comment on above: Order Comment: Speci men Type: BLOOD SPECIMENOrdering Facility: [facility] Address: [address] [place] [address] Performed By: #### 2 4321-2 ####[facility]ATORYCLIA [id number] [place] [address] [place] Urea nitrogen [Mass/Vol] 22 mg/dL High 7-21 [facility] Comment on above: Order Comment: Speci men Type: BLOOD SPECIMENOrdering Facility: [facility] Address: [address] [place] [address] Performed By: #### 2 4321-2 ####[facility]ATORYCLIA [id number] [place] [address] [place] Anion gap [Moles/Vol] 10 mmol/L Normal 8-15 [facility] Comment on above: Order Comment: Speci men Type: BLOOD SPECIMENOrdering Facility: [facility] Address: [address] [place] [address] Performed By: #### 2 4321-2, 75365-3, 2777-1 ####[facility]ORATORYCLIA [id number] [place] [address] [place] Calcium [Mass/Vol] 8.8 mg/dL Normal 8.5-10.2 [facility] Comment on above: Order Comment: Speci men Type: BLOOD SPECIMENOrdering Facility: [facility] Address: [address] [place] [id number] Performed By: #### 2 4321-2, , 2776-03 ####[facility]ORATORYCLIA [id number] [place] [id number] [place] Chloride [Moles/Vol] 102 mmol/L Normal 98-107 [facility] Comment on above: Order Comment: Speci men Type: BLOOD SPECIMENOrdering Facility: [facility] Address: [address] [place] [address] Performed By: #### 2 4321-2, , 2776-03 ####[facility]ATORYCLIA [id number] [place] [id number] [place] CO2 [Moles/Vol] 26 mmol/L Normal 22-30 [facility] Comment on above: Order Comment: Speci men Type: BLOOD SPECIMENOrdering Facility: [facility] Address: [address] [place] [address] Performed By: #### 2 4321-2, , 2776-03 ####[facility]ITALCLIA [id number] [address] [place] Creatinine [Mass/Vol] 0.76 mg/dL Normal 0.58-0.96 [facility] Comment on above: Order Comment: Speci men Type: BLOOD SPECIMENOrdering Facility: [facility] Address: [address] [place] [address] Performed By: #### 2 4321-2, , 2776-03 ####[facility]ATORYCLIA [id number] [place] [id number] [facility] Creatinine and Glomerular filtration rate.predicted panel (S/P/Bld) 78 mL/min/1.73m??? Normal >=60 [facility] Comment on above: Order Comment: Speci men Type: BLOOD SPECIMENOrdering Facility: [facility] [facility] Address: [address] [place] [address] Result Comment: Venita mated Glomerular Filtration Rate (eGFR) is calculated using the 2020 CKD-EPI creatinine equation. This equation utilizes serum creatinine, sex, and age as parameters. The creatinine assay has traceable calibration to isotope dilution-mass spectrometry. Refer to KDIGO guidelines for clinical interpretation. In patients with unstable renal function, e.g. those with acute kidney injury, the eGFR may not accurately reflect actual GFR. Performed By: #### 2 4321-2, , 2776-03 ####[facility] LABORATORYCLIA [id number] [place] [address] [place] Glucose [Mass/Vol] 163 mg/dL High 74-99 [facility] Comment on above: Order Comment: Patria mei Type: BLOOD SPECIMENOrdering Facility: [facility] Address: [address] [place] [address] Result Comment: The [place] Diabetes Association (ADA) provides guidance for cutoff values for fasting glucose and random glucose. The ADA defines fasting as no caloric intake for at least 8 hours. Fasting plasma glucose results between 100 to 125 mg/dL indicate increased risk for diabetes (prediabetes). Fasting plasma glucose results greater than or equal to 126 mg/dL meet the criteria for diagnosis of diabetes. In the absence of unequivocal hyperglycemia, results should be confirmed by repeat testing. In a patient with classic symptoms of hyperglycemia or hyperglycemic crisis, random plasma glucose results greater than or equal to 200 mg/dL meet the criteria for diagnosis of diabetes. Reference: Standards of Medical Care in Diabetes 2016, British Diabetes Association. Diabetes Care. 2016.39(Suppl 1). Performed By: #### 2 4321-2, , 2776-03 ####[facility] LABORATORYCLIA [id number] [place] [id number] [place] Potassium [Moles/Vol] 4.3 mmol/L Normal 3.7-5.1 [facility] Comment on above: Order Comment: Patria mei Type: BLOOD SPECIMENOrdering Facility: [facility] Address: [address] [id number] Performed By: #### 2 4321-2, , 2776-03 ####[facility] LABORATORYCLIA [id number] [place] [address] [place] Sodium [Moles/Vol] 138 mmol/L Normal 136-144 [facility] Comment on above: Order Comment: Speci men Type: BLOOD SPECIMENOrdering Facility: [facility] Address: [address] [place] [address] Performed By: #### 2 4321-2, , 2776-03 ####[facility]ORATORYCLIA [id number] [place] [address] [place] Urea nitrogen [Mass/Vol] 20 mg/dL Normal 7-21 [facility] Comment on above: Order Comment: Speci men Type: BLOOD SPECIMENOrdering Facility: [facility] Address: [address] [place] [address] Performed By: #### 2 4321-2, , 2776-03 ####[facility]ORATORYCLIA [id number] [address] STATES OF [facility] CBC panel Auto (Bld)on 08-02 Erythrocyte distribution width (RBC) [Ratio] 13.2 % Normal 11.5-15.0 [facility] Comment on above: Order Comment: Speci men Type: BLOOD SPECIMENOrdering Facility: [facility] Address: [address] [place] [address] Performed By: #### 5 8410-2 ####[facility]ATORYCLIA [id number] [address] [place] Hematocrit (Bld) [Volume fraction] 31.0 % Low 36.0-46.0 [facility] Comment on above: Order Comment: Speci men Type: BLOOD SPECIMENOrdering Facility: [facility] Address: [address] [place] [address] Performed By: #### 5 8410-2 ####[facility]ATORYCLIA [id number] [address] [place] Hemoglobin (Bld) [Mass/Vol] 10.2 g/dL Low 11.5-15.5 [facility] Comment on above: Order Comment: Speci men Type: BLOOD SPECIMENOrdering Facility: [facility] Address: [address] [place] [address] Performed By: #### 5 8410-2 ####[facility]ORATORYCLIA [id number] [address] MCH (RBC) [Entitic mass] 29.6 pg Normal 26.0-34.0 [facility] Comment on above: Order Comment: Speci men Type: BLOOD SPECIMENOrdering Facility: [facility] Address: [address] [place] [address] Performed By: #### 5 8410-2 ####[facility]ATORYCLIA [id number] [address] MCHC (RBC) [Mass/Vol] 32.9 g/dL Normal 30.5-36.0 [facility] Comment on above: Order Comment: Speci men Type: BLOOD SPECIMENOrdering Facility: [facility] Address: [address] [place] [address] Performed By: #### 5 8410-2 ####[facility]ATORYCLIA [id number] [address] MCV (RBC) [Entitic vol] 89.9 fL Normal 80.0-100.0 [place] Comment on above: Order Comment: Speci men Type: BLOOD SPECIMENOrdering Facility: [facility] Address: [address] [place] [address] Performed By: #### 5 8410-2 ####[facility]ORATORYCLIA [id number] [address] Nucleated RBC (Bld) [#/Vol] 10*3/uL Normal <0.01 [facility] Comment on above: Order Comment: Speci men Type: BLOOD SPECIMENOrdering Facility: [facility] Address: [address] [place] [address] Performed By: #### 5 8410-2 ####[facility]ATORYCLIA [id number] [address] Platelet mean volume (Bld) [Entitic vol] 9.0 fL Normal 9.0-12.7 [facility] Comment on above: Order Comment: Speci men Type: BLOOD SPECIMENOrdering Facility: [facility] Address: [address] [place] [address] Performed By: #### 5 8410-2 ####[facility]ATORYCLIA [id number] [address] [place] Platelets (Bld) [#/Vol] 151 10*3/uL Normal 150-400 [facility] Comment on above: Order Comment: Speci men Type: BLOOD SPECIMENOrdering Facility: [facility] Address: [address] [place] [address] Performed By: #### 5 8410-2 ####[facility]ATORYCLIA [id number] [address] [place] RBC (Bld) [#/Vol] 3.45 10*6/uL Low 3.90-5.20 [facility] Comment on above: Order Comment: Speci men Type: BLOOD SPECIMENOrdering Facility: [facility] Address: [address] [place] [address] Performed By: #### 5 8410-2 ####[facility]ATORYCLIA [id number] [address] STATES OF [facility] WBC (Bld) [#/Vol] 8.10 10*3/uL Normal 3.70-11.00 [facility] Comment on above: Order Comment: Speci men Type: BLOOD SPECIMENOrdering Facility: [facility] Address: [address] [place] [address] Performed By: #### 5 8410-2 ####[facility]ATORYCLIA [id number] [address] OF [place] Erythrocyte distribution width (RBC) [Ratio] 13.1 % Normal 11.5-15.0 [facility] Comment on above: Order Comment: Speci men Type: BLOOD SPECIMENOrdering Facility: [facility] Address: [address] [place] [address] Performed By: #### 5 8410-2 ####[facility]ATORYCLIA [id number] [address] Hematocrit (Bld) [Volume fraction] 31.5 % Low 36.0-46.0 [facility] Comment on above: Order Comment: Speci men Type: BLOOD SPECIMENOrdering Facility: [facility] Address: [address] [place] [address] Performed By: #### 5 8410-2 ####[facility]ATORYCLIA [id number] [address] Hemoglobin (Bld) [Mass/Vol] 10.2 g/dL Low 11.5-15.5 [facility] Comment on above: Order Comment: Speci men Type: BLOOD SPECIMENOrdering Facility: [facility] Address: [address] [place] [address] Performed By: #### 5 8410-2 ####[facility]ATORYCLIA [id number] [address] MCH (RBC) [Entitic mass] 29.7 pg Normal 26.0-34.0 [facility] Comment on above: Order Comment: Speci men Type: BLOOD SPECIMENOrdering Facility: [facility] Address: [address] [place] [address] Performed By: #### 5 8410-2 ####[facility]ATORYCLIA [id number] [address] [place] MCHC (RBC) [Mass/Vol] 32.4 g/dL Normal 30.5-36.0 [facility] Comment on above: Order Comment: Speci men Type: BLOOD SPECIMENOrdering Facility: [facility] Address: [address] [place] [address] Performed By: #### 5 8410-2 ####[facility]ATORYCLIA [id number] [address] MCV (RBC) [Entitic vol] 91.8 fL Normal 80.0-100.0 [place] Comment on above: Order Comment: Speci men Type: BLOOD SPECIMENOrdering Facility: [facility] Address: [address] [place] [address] Performed By: #### 5 8410-2 ####[facility]ATORYCLIA [id number] [address] [place] Nucleated RBC (Bld) [#/Vol] 10*3/uL Normal <0.01 [facility] Comment on above: Order Comment: Speci men Type: BLOOD SPECIMENOrdering Facility: [facility] Address: [address] [place] [address] Performed By: #### 5 8410-2 ####[facility]ATORYCLIA [id number] [address] [place] Platelet mean volume (Bld) [Entitic vol] 9.5 fL Normal 9.0-12.7 [facility] Comment on above: Order Comment: Speci men Type: BLOOD SPECIMENOrdering Facility: [facility] Address: [address] [place] [address] Performed By: #### 5 8410-2 ####[facility]ATORYCLIA [id number] [address] [place] Platelets (Bld) [#/Vol] 117 10*3/uL Low 150-400 [facility] Comment on above: Order Comment: Speci men Type: BLOOD SPECIMENOrdering Facility: [facility] Address: [address] [place] [address] Performed By: #### 5 8410-2 ####[facility]ATORYCLIA [id number] [address] [place] RBC (Bld) [#/Vol] 3.43 10*6/uL Low 3.90-5.20 [facility] Comment on above: Order Comment: Speci men Type: BLOOD SPECIMENOrdering Facility: [facility] Address: [address] [place] [address] Performed By: #### 5 8410-2 ####[facility]ATORYCLIA [id number] [address] [place] WBC (Bld) [#/Vol] 6.78 10*3/uL Normal 3.70-11.00 [facility] Comment on above: Order Comment: Speci men Type: BLOOD SPECIMENOrdering Facility: [facility] Address: [address] [id number] Performed By: #### 5 8410-2 ####[facility]ORATORYCLIA [id number] [place] [address] [place] CONSULT PROGon 08-02-2024 CONSULT PROG HNO ID: [id number] Author: ECTOR GONZALEZ MD Service: General Surgery Author Type: Physician Type: Consult Progress Note Filed: 08/02/2024 10:25 Note Text: INPATIENT SICU PROGRESS NOTE SERVICE DATE: 08/02/2024 SERVICE TIME: 7:50 AM Subjective Patient seen and examined this morning, she feels ok. Slept last night a little. Current Facility-Administered Medications Medication Dose Route Frequency NaCl 0.9% iv flush bag 20 mL INTRAVENOUS PRN iv contrast (radiology procedure) INTRAVENOUS DIRECTED PRN iv contrast (radiology procedure) INTRAVENOUS DIRECTED PRN NaCl 0.9% iv infusion 75 mL/hr INTRAVENOUS CONTINUOUS potassium chloride 20-40 mEq oral powder (KLOR-CON) 20-40 mEq ORAL/FEEDING TUBE PRN Or potassium chloride iv piggyback 20 mEq/100 mL 20 mEq INTRAVENOUS PRN sodium phosphate 30 mmol in D5W 250 mL 30 mmol INTRAVENOUS PRN(NO DISPENSE) Or sodium phosphate 45 mmol in D5W 250 mL 45 mmol INTRAVENOUS PRN(NO DISPENSE) magnesium sulfate iv piggyback in sterile water 2 g 50 mL 2 g INTRAVENOUS PRN calcium gluconate iv piggyback 2 g in NaCl (iso-osmotic) 100 mL 2 g INTRAVENOUS PRN(NO DISPENSE) dextrose 15 gram/32 mL 15 g (TRUEPLUS) 15 g ORAL PRN Or glucagon 1 mg injection 1 mg INTRAMUSCULAR PRN Or dextrose 10% iv bolus 12.5 g INTRAVENOUS PRN insulin lispro injection (rapid acting) (ADMElog) SUBCUTANEOUS q 6 H melatonin 9 mg tab(s) 9 mg ORAL DAILY (8 PM) metoprolol 5 mg injection (LOPRESSOR) 5 mg INTRAVENOUS q 6 H PRN haloperidol lactate 5 mg short-acting injection (HALDOL) 5 mg INTRAVENOUS q 6 H PRN dexmedeTOMIDine 400 mcg in NaCl 0.9% 100 mL (PRECEDEX) 0.2-0.7 mcg/kg/hr INTRAVENOUS CONTINUOUS Objective VITAL SIGNS BP 144/56 Pulse 80 Temp (Src) 98.4 (Oral) Resp 24 Ht 4' 9 (1.45m) Wt 136 lb 11 oz (62.0kg) SpO2 96% BMI 29.57 kg/(m2). O2 Therapy: Nasal Cannula, Liters (Numeric Only): 2 Temp (24hrs), Av.1 ?C (98.7 ?F), Min:36.9 ?C (98.4 ?F), Max:37.2 ?C (99 ?F) PHYSICAL EXAM: GENERAL: Alert. No distress. Resting comfortably. NEURO:No focal neurologic deficits. Sensation grossly intact. HEENT: Normocephalic. Atraumatic. EOMI. LUNGS: Unlabored breathing. Equal excursion bilaterally. CARDIAC: Regular rate, on tele, Good perfusion throughout. ABDOMEN: Soft, non-tender, non-distended. No rebound or guarding. EXTREMITIES: SOUSA. No deformities. SKIN: No obvious jaundice or pallor. Severe scattered ecchymosis on face, lip lac sutured DATA: Diagnostic tests reviewed for today's visit: No results for input(s): BODSITE, CTYPE, PH, PCO2, PO2, BE, HCO3, CO2CT, O2HB, COHB, MHGB, TEMP, PHTC, PCO2T, PO2T, O2AD in the last 72 hours. Recent Labs 08/02/24 0308 08/01/24 0559 CREAT 0.76 0.83 BUN 20 26* NA 138 139 K 4.3 3.3* CHLOR 102 97* CO2 26 32* ANION 10 10 GLUC 163* 136* CA 8.8 9.6 P 3.1 -- MG 1.4* -- WBC 6.78 9.38 HB 10.2* 11.4* HCT 31.5* 34.4* PLT 117* 156 Assessment AND Plan ACTIVE PROBLEM LIST Subdural Hematoma (Hcc) Fall Sah (Subarachnoid Hemorrhage) (Hcc) Primary Hypertension Hyperlipidemia Lip Laceration Controlled Type 2 Diabetes Mellitus Without Complication, With Long-Term Current Use of Insulin (Hcc) Assessment This is a 84 year old female with PMH of CAD s/p PCI w/stents(2001) on ASA, CABG (2001) HTN, HLD, T2DM, CKD, possible Leg DVT who presents as trauma consult following a GLF on 07/31. Neuro: - pain: prn tylenol, prn oxy - haldol prn - sdh/sah - nsy following - ct h stable - no keppra - appreciate recs CV: - hx CAD, PCI, CABG, htn, hld - prn metoprolol - Tele - EKG as indcated Resp: - 96 on O2 Therapy: Nasal Cannula - IS GI: - DIET NPO - Bowel Regimen: senna - GI ppx: na - will increase diet today Renal: - strict Is/Os - Cr 0.7 from 0.8 - no UOP yet recorded - electrolyte replacement per unit protocol Creatinine Date Value Ref Range Status 08/02/2024 0.76 0.58 - 0.96 mg/dL Final 08/01/2024 0.83 0.58 - 0.96 mg/dL Final 11/09/2001 0.7 0.7 - 1.4 mg/dL Final 11/08/2001 0.7 0.7 - 1.4 mg/dL Final Magnesium Date Value Ref Range Status 08/02/2024 1.4 (L) 1.7 - 2.3 mg/dL Final Potassium Date Value Ref Range Status 08/02/2024 4.3 3.7 - 5.1 mmol/L Final 08/01/2024 3.3 (L) 3.7 - 5.1 mmol/L Final 11/09/2001 4.3 3.5 - 5.0 mmol/L Final No intake or output data in the 24 hours ending 08/02/24 0750 Heme: - HGB - 10.2, 11.4 - transfuse for hemoglobin < 7.0 in a stable patient or for symptomatic anemia, not indicated at this time Endo: - GLU - 163, 137 - DMII - ISS - continue blood sugar checks Recent Labs 08/01/24 2336 08/01/24 1843 08/01/24 1454 PCGLUCOSE 137* 113* 125* ID: Temp (24hrs), Av.1 ?C (98.7 ?F), Min:36.9 ?C (98.4 ?F), Max:37.2 ?C (99 ?F) - WBC - 6.78, 9.3 - continue monitor for any signs of infection WBC Date Value Ref Range Status 08/02/2024 6.78 3.70 - 11.00 (more content not included)... Normal [facility] Calcium.ionized [Moles/Vol]o n 08-02-2024 Calcium.ionized (BldV) [Mass/Vol] 1.13 mmol/L Normal 1.08-1.30 [facility] Comment on above: Order Comment: Speci men Type: BLOOD SPECIMENOrdering Facility: [facility] Address: [address] [place] [address] Performed By: #### 1 995-0 ####[facility]ORATORYCLIA [id number] [address] [place] Calcium.ionized adjusted to pH 7.4 (Bld) [Moles/Vol] 1.07 mmol/L Low 1.08-1.30 [facility] Comment on above: Order Comment: Speci men Type: BLOOD SPECIMENOrdering Facility: [facility] Address: [address] [place] [address] Performed By: #### 1 995-0 ####[facility]ATORYCLIA [id number] [address] [place] Lactate (Bld) [Moles/Vol]on 08-02-2024 Lactate [Moles/Vol] 0.7 mmol/L Normal 0.5-2.2 [facility] Comment on above: Order Comment: Speci men Type: BLOOD SPECIMENOrdering Facility: [facility] Address: [address] [place] [address] Performed By: #### 3 2693-4 ####[facility]ORATORYCLIA [id number] [place] [id number] [place] Magnesium SerPl-mCncon 08-02 Magnesium [Mass/Vol] 1.4 mg/dL Low 1.7-2.3 [facility] Comment on above: Order Comment: Speci men Type: BLOOD SPECIMENOrdering Facility: [facility] Address: [address] [place] [address] Performed By: #### 2 4321-2, 84600-1, 2777-1 ####[facility] [id number] [place] [id number] [place] NURSING PROGon 08-02-2024 NURSING PROG HNO ID: [id number] Author: DAMEON MASON, BARBARA Service: Nursing Author Type: Registered Nurse Type: Nursing Progress Note Filed: 08/02/2024 23:22 Note Text: Patient saturating 85-87% on 2L NC. RN increased patient's oxygen to 4L NC where she is saturating 89-90% and notified . Orders for blood work, CXR, and abdominal XRAY received. Normal [facility] Phosphate SerPl-mCncon 08-02 Phosphate [Mass/Vol] 3.1 mg/dL Normal 2.7-4.8 [facility] Comment on above: Order Comment: Speci men Type: BLOOD SPECIMENOrdering Facility: [facility] Address: [address] [place] [address] Performed By: #### 2 4321-2, 37015-0, 2777-1 ####[facility]ITALIA [id number] [address] OF [facility] STAPHYLOCOCCUS AUREUS AND MR SA SCREEN, PCR, NASALon 08-02-2024 S. aureus and MRSA panel CHARBEL+probe (Nose) Methicillin-RESISTANT Staphylococcus aureus (MRSA) Detected Abnormal Not Detected [facility] Comment on above: Order Comment: Speci men Type: SWABOrdering Facility: [facility] Address: [address] [place] [address] Performed By: #### S APCR ####[facility]ITALIA [id number] [place] [id number] [place] XR ABDOMEN 1V SUPINEon 08-02 XR ABDOMEN 1V SUPINE * * *Final Report* * * DATE OF EXAM: Aug 02 2024 11:34PM [id number] - XR ABDOMEN 1V SUPINE / PROCEDURE REASON: Abdominal distension * * * * Physician Interpretation * * * * EXAMINATION: XR ABDOMEN 1V SUPINE, XR CHEST 1V FRONTAL PATIENT/TECHNOLOGIST PROVIDED HISTORY: short of breath and abdominal distension CLINICAL INFORMATION ( PROVIDED BY ORDERING CLINICIAN) : Abdominal distension. . TECHNIQUE: XR ABDOMEN 1V SUPINE, XR CHEST 1V FRONTAL COMPARISON: 08/01/2024. RESULT: No focal infiltrate, mass, effusion, or pneumothorax. No cardiomegaly. Postop changes from open heart surgery. No bowel distention or bowel wall thickening. Postop changes from internal fixation of the LEFT hip. Postop changes from T11 vertebroplasty. IMPRESSION: See Result Toll Gate Tender: [facility] Transcribe Date/Time: Aug 03 2024 12:51A Dictated by : GENET LEONE MD This examination was interpreted and the report reviewed and electronically signed by: GENET LEONE MD on Aug 03 2024 12:56AM EST [id number] Normal [facility] XR CHEST 1V FRONTALon 2024 XR CHEST 1V FRONTAL * * *Final Report* * * DATE OF EXAM: Aug 02 2024 11:34PM [id number] - XR CHEST 1V FRONTAL / PROCEDURE REASON: Shortness of breath * * * * Physician Interpretation * * * * EXAMINATION: XR ABDOMEN 1V SUPINE, XR CHEST 1V FRONTAL PATIENT/TECHNOLOGIST PROVIDED HISTORY: short of breath and abdominal distension CLINICAL INFORMATION ( PROVIDED BY ORDERING CLINICIAN) : Abdominal distension. . TECHNIQUE: XR ABDOMEN 1V SUPINE, XR CHEST 1V FRONTAL COMPARISON: 08/01/2024. RESULT: No focal infiltrate, mass, effusion, or pneumothorax. No cardiomegaly. Postop changes from open heart surgery. No bowel distention or bowel wall thickening. Postop changes from internal fixation of the LEFT hip. Postop changes from T11 vertebroplasty. IMPRESSION: See Result Toll Gate Tender: [facility] Transcribe Date/Time: Aug 03 2024 12:51A Dictated by : GENET LEONE MD This examination was interpreted and the report reviewed and electronically signed by: GENET LEONE MD on Aug 03 2024 12:56AM EST [id number] Normal [facility] ALLIED HEALTHon 08-01-2024 ALLIED HEALTH HNO ID: [id number] Author: PAULETTE STAFFORD RT(R) Service: Radiology Author Type: Racker Octave Board Type: Allied Health Filed: 08/01/2024 10:50 Note Text: Radiology Service Progress Note DATE OF SERVICE: August 01, 2024 TIME: 10:49 AM PATIENT IDENTITY VERIFICATION COMPLETED USING TWO (2) STANDARD IDENTIFIERS: Name and Date of confirmed by patient verbally. FALL SCREENING: Has the patient had 2 falls in the last year or 1 fall with injury or currently using an Ambulatory Assistive Device (Walker, Cane, Wheelchair, Crutches, etc.)? Emergency Room Patient: Screened in ED PATIENT GENDER DATA: Assigned female at . status: : No status: NO. PATIENT RELEVANT IMPLANT DATA REVIEWED: Not Applicable PATIENT PRESENTS WITH AN IMPLANTABLE OR ATTACHED DIVISION HEAD: No ALLERGIES: Reviewed and unchanged CONTRAST ALLERGY: NO. EXAM: CT -CONTRAST INDUCED NEPHROPATHY RISK FACTORS: Not applicable CREATININE: Creatinine Date Value Ref Range Status 08/01/2024 0.83 0.58 - 0.96 mg/dL Final 11/09/2001 0.7 0.7 - 1.4 mg/dL Final 11/08/2001 0.7 0.7 - 1.4 mg/dL Final Estimated Glomerular Filtration Rate Date Value Ref Range Status 08/01/2024 70 >=60 mL/min/1.73m? Final Comment: Estimated Glomerular Filtration Rate (eGFR) is calculated using the 2020 CKD-EPI creatinine equation. This equation utilizes serum creatinine, sex, and age as parameters. The creatinine assay has traceable calibration to isotope dilution-mass spectrometry. Refer to KDIGO guidelines for clinical interpretation. In patients with unstable renal function, e.g. those with acute kidney injury, the eGFR may not accurately reflect actual GFR. P.O.C.T. RESULTS: POC done: Yes, See Lab Tab August 01, 2024 TREATMENT: N/A and No Hydration needed. PERIPHERAL IV DATA: Inpatient - refer to LDA documentation RADIOLOGY DEPARTMENT: CT; Exam(s) Completed: Brain , Chest Abdomen Pelvis, and Spine SIGNATURE: RT Aguilar(R) PATIENT NAME: Tamica Anderson DATE: August 01, 2024 TIME: 10:49 AM Normal [facility] Absolute lymphocyte countOrd ered By: Cedric Verde on 08-01-2024 Lymphocytes Auto (Unsp spec) [#/Vol] 1.09 10*3/uL 0.83-4.51 [facility] Absolute neutrophil countOrd ered By: Cedric Verde on 08-01-2024 Neutrophils (Bld) [#/Vol] 6.8 10*3/uL 2.0-7.7 [facility] Activated partial thrombopla stin time (aPTT) in platelet poor plasma by coagulation aOrdered By: Cedric Verde on 08-01-2024 aPTT Coag (PPP) [Time] 28.8 s 24.1-36.2 [facility] Anion gap in Serum or Plasma Ordered By: Cedric Verde on 08-01-2024 Anion gap [Moles/Vol] 12 mmol/L 5-15 [facility] Automated lymphocyte count a s percentage of total leukocytesOrdered By: Cedric Verde on 08-01-2024 Lymphocytes/100 WBC Auto (Unsp spec) 12.0 % Low 19-41 [facility] BUN/creatinine ratioOrdered By: Cedric Verde on 08-01-2024 Urea nitrogen/Creatinine [Mass ratio] 34.0 mg/mg High 10-20 [facility] Basic Metabolic Profile (BMP )on 08-01-2024 BUN/CRE 34.0 RATIO High 10-20 [facility] Comment on above: Performed By: #### L 400.0001, L502.0250, L506.1001, L501.0900 #### [facility] Laboratory [address] [place], [address] Calcium [Mass/Vol] 9.5 mg/dL Normal 7.6-11.0 [facility] Comment on above: Performed By: #### L 400.0001, L502.0250, L506.1001, L501.0900 #### [facility] [facility] [address] [place], [address] Chloride [Moles/Vol] 98 mmol/L Normal 98-108 [facility] Comment on above: Performed By: #### L 400.0001, L502.0250, L506.1001, L501.0900 #### [facility] [address] [place], [address] CO2 [Moles/Vol] 29.6 mmol/L Normal 21.0-32.0 [facility] Comment on above: Performed By: #### L 400.0001, L502.0250, L506.1001, L501.0900 #### [facility] [address] [place], [address] Creatinine [Mass/Vol] 0.87 mg/dL Normal 0.70-1.20 [facility] Comment on above: Performed By: #### L 400.0001, L502.0250, L506.1001, L501.0900 #### [facility] [address] [place], [address] ECRCL 40.64 ml/min Low 50-250 [facility] Comment on above: Performed By: #### L 400.0001, L502.0250, L506.1001, L501.0900 #### [facility] [address] [place], [address] GAP 12 Normal 5-15 [facility] Comment on above: Performed By: #### L 400.0001, L502.0250, L506.1001, L501.0900 #### [facility] [address] [place], [address] GFR/1.73 sq M.predicted among non-blacks MDRD (S/P/Bld) [Vol rate/Area] 66 mL/min/{1.73_m2} Normal >60 [facility] Comment on above: Result Comment: mL/m in/1.73m2 CKD-EPI Creatinine Equation (2020) Performed By: #### L 400.0001, L502.0250, L506.1001, L501.0900 #### [facility] [address] [place], [address] Glucose [Mass/Vol] 176 mg/dL High 70-99 [facility] Comment on above: Performed By: #### L 400.0001, L502.0250, L506.1001, L501.0900 #### [facility] [address] [place], [address] Potassium [Moles/Vol] 3.7 mmol/L Normal 3.3-5.1 [facility] Comment on above: Performed By: #### L 400.0001, L502.0250, L506.1001, L501.0900 #### [facility] [address] [place], [address] Sodium [Moles/Vol] 140 mmol/L Normal 133-145 [facility] Comment on above: Performed By: #### L 400.0001, L502.0250, L506.1001, L501.0900 #### [facility] [address] [place], [address] Urea nitrogen [Mass/Vol] 30 mg/dL High 4-19 [facility] Comment on above: Performed By: #### L 400.0001, L502.0250, L506.1001, L501.0900 #### [facility] [address] [place], [address] Basic metabolic 2000 panelon 08-01-2024 Anion gap [Moles/Vol] 10 mmol/L Normal 8-15 [facility] Comment on above: Order Comment: Speci men Type: BLOOD SPECIMENOrdering Facility: [facility] Address: [address] [place] [address] Performed By: #### 2 4321-2 ####[facility]ATORYCLIA [id number] [place] [address] [place] Calcium [Mass/Vol] 9.6 mg/dL Normal 8.5-10.2 [facility] Comment on above: Order Comment: Speci men Type: BLOOD SPECIMENOrdering Facility: [facility] Address: [address] [place] [address] Performed By: #### 2 4321-2 ####[facility]ORATORYCLIA [id number] [address] [place] Chloride [Moles/Vol] 97 mmol/L Low 98-107 [facility] Comment on above: Order Comment: Speci men Type: BLOOD SPECIMENOrdering Facility: [facility] Address: [address] [place] [address] Performed By: #### 2 4321-2 ####[facility] LABORATORYCLIA [id number] [address] STATES OF [facility] CO2 [Moles/Vol] 32 mmol/L High 22-30 [facility] Comment on above: Order Comment: Speci men Type: BLOOD SPECIMENOrdering Facility: [facility] Address: [address] [place] [address] Performed By: #### 2 4321-2 ####[facility] LABORATORYCLIA [id number] [address] OF [facility] Creatinine [Mass/Vol] 0.83 mg/dL Normal 0.58-0.96 [facility] Comment on above: Order Comment: Speci men Type: BLOOD SPECIMENOrdering Facility: [facility] Address: [address] [place] [address] Performed By: #### 2 4321-2 ####[facility]ORATORYCLIA [id number] [address] Creatinine and Glomerular filtration rate.predicted panel (S/P/Bld) 70 mL/min/1.73m??? Normal >=60 [facility] Comment on above: Order Comment: Speci men Type: BLOOD SPECIMENOrdering Facility: [facility] Address: [address] [place] [address] Result Comment: Venita mated Glomerular Filtration Rate (eGFR) is calculated using the 2020 CKD-EPI creatinine equation. This equation utilizes serum creatinine, sex, and age as parameters. The creatinine assay has traceable calibration to isotope dilution-mass spectrometry. Refer to KDIGO guidelines for clinical interpretation. In patients with unstable renal function, e.g. those with acute kidney injury, the eGFR may not accurately reflect actual GFR. Performed By: #### 2 4321-2 ####[facility] LABORATORYCLIA [id number] [place] [address] [place] Glucose [Mass/Vol] 136 mg/dL High 74-99 [facility] Comment on above: Order Comment: Speci hamida Type: BLOOD SPECIMENOrdering Facility: [facility] Address: [address] [place] [address] Result Comment: The [place] Diabetes Association (ADA) provides guidance for cutoff values for fasting glucose and random glucose. The ADA defines fasting as no caloric intake for at least 8 hours. Fasting plasma glucose results between 100 to 125 mg/dL indicate increased risk for diabetes (prediabetes). Fasting plasma glucose results greater than or equal to 126 mg/dL meet the criteria for diagnosis of diabetes. In the absence of unequivocal hyperglycemia, results should be confirmed by repeat testing. In a patient with classic symptoms of hyperglycemia or hyperglycemic crisis, random plasma glucose results greater than or equal to 200 mg/dL meet the criteria for diagnosis of diabetes. Reference: Standards of Medical Care in Diabetes 2016, British Diabetes Association. Diabetes Care. 2016.39(Suppl 1). Performed By: #### 2 4321-2 ####[facility] LABORATORYCLIA [id number] [place] [address] [place] Potassium [Moles/Vol] 3.3 mmol/L Low 3.7-5.1 [facility] Comment on above: Order Comment: Patria mei Type: BLOOD SPECIMENOrdering Facility: [facility] Address: [address] [place] [address] Performed By: #### 2 4321-2 ####[facility] LABORATORYCLIA [id number] [place] [id number] [place] Sodium [Moles/Vol] 139 mmol/L Normal 136-144 [facility] Comment on above: Order Comment: Patria hamida Type: BLOOD SPECIMENOrdering Facility: [facility] Address: [address] [place] [address] Performed By: #### 2 4321-2 ####[facility]ATORYCLIA [id number] [address] [place] Urea nitrogen [Mass/Vol] 26 mg/dL High 7- [facility] Comment on above: Order Comment: Speci men Type: BLOOD SPECIMENOrdering Facility: [facility] Address: [address] [place] [id number] Performed By: #### 2 4321-2 ####[facility] LABORATORYCLIA [id number] [place] [id number] [place] Basophil percentageOrdered B y: Cedric Verde on 08-01-2024 Basophils/100 WBC (Bld) 0.4 % 0-1 [facility] Brain/Head without Contrasto n 08-01-2024 Brain/Head without Contrast [facility] Imaging Services [address] [place] [address] Brain/Head without Contrast MR#: [id number] Acct: [id number] Name: TAMICA ANDERSON Rep #: [id number] : 1940 F 84 From: Dileep Britt MD PCP: Dr. Dominique Lang MD Status: PRE ER Study: Brain/Head without Contrast Date of Exam: 07/16 10/09 Exam# [id number] Ordering Dr: Cedric Verde DO PROCEDURE: BRAIN/HEAD WITHOUT CONTRAST 08/01/2024 REASON FOR EXAM: HEAD INJURY TECHNIQUE: Head CT without intravenous contrast. Coronal and Sagittal reconstruction series were provided. One or more dose reduction techniques were used (e.g., Automated exposure control, adjustment of the mA and/or kV according to patient size, use of iterative reconstruction technique. RADIATION DOSE SUMMARY: CTDlvol: 44.99 mGy DLP: 812.98 mGycm COMPARISON: 09/21/2021 FINDINGS: Mild off axis imaging. Small amount of acute appearing subdural hemorrhage anterior inferior interhemispheric frontal measures up to 7 mm in thickness axial 21 and coronal 23. There appears to be some trace adjacent sulcal inferior frontal possible subarachnoid hemorrhage. No midline shift. No calvarial fracture. Please refer to facial CT report for nasal and facial soft tissue swelling, injury. The ventricles are unchanged in size and remain midline. Chronic and involutional changes. CT/Brain/Head without Contrast IMPRESSION: Small amount of acute appearing subdural hemorrhage anterior inferior interhemispheric frontal measures up to 7 mm in thickness axial 21 and coronal 23. There appears to be some trace adjacent sulcal inferior frontal possible subarachnoid hemorrhage. No midline shift. Findings discussed by myself by phone and informed that Dr. Verde is aware of head bleed at 1:05 a.m. 08/01/2024 Reading Location: [id number] CC: Dr. Dominique Lang MD; Cedric Verde DO Toll Gate Tender: Signed Normal [facility] CBC W Auto Differential pane l (Bld)on 08-01-2024 Basophils (Bld) [#/Vol] 0.04 10*3/uL Normal <0.11 [facility] Comment on above: Order Comment: Speci men Type: BLOOD SPECIMENOrdering Facility: [facility] Address: [address] [place] [address] Performed By: #### 5 7021-8 ####[facility] LABORATORYCLIA [id number] [place] [address] [place] Basophils/100 WBC (Bld) 0.4 % Normal [facility] Comment on above: Order Comment: Speci men Type: BLOOD SPECIMENOrdering Facility: [facility] Address: [address] [place] [address] Performed By: #### 5 7021-8 ####[facility]ORATORYCLIA [id number] [place] [address] [place] Differential cell count method Nom (Bld) Auto Normal [facility] Comment on above: Order Comment: Speci men Type: BLOOD SPECIMENOrdering Facility: [facility] Address: [address] [place] [address] Performed By: #### 5 7021-8 ####[facility]ORATORYCLIA [id number] [place] [address] [place] Eosinophils (Bld) [#/Vol] 0.15 10*3/uL Normal <0.46 [facility] Comment on above: Order Comment: Speci men Type: BLOOD SPECIMENOrdering Facility: [facility] Address: [address] [place] [address] Performed By: #### 5 7021-8 ####[facility]ORATORYCLIA [id number] [address] STATES [facility] Eosinophils/100 WBC (Bld) 1.6 % Normal [facility] Comment on above: Order Comment: Speci men Type: BLOOD SPECIMENOrdering Facility: [facility] Address: [address] [place] [address] Performed By: #### 5 7021-8 ####[facility]ORATORYCLIA [id number] [address] [place] Erythrocyte distribution width (RBC) [Ratio] 13.1 % Normal 11.5-15.0 [facility] Comment on above: Order Comment: Speci men Type: BLOOD SPECIMENOrdering Facility: [facility] Address: [address] [place] [address] Performed By: #### 5 7021-8 ####[facility]ATORYCLIA [id number] [address] [place] Hematocrit (Bld) [Volume fraction] 34.4 % Low 36.0-46.0 [facility] Comment on above: Order Comment: Speci men Type: BLOOD SPECIMENOrdering Facility: [facility] Address: [address] [place] [address] Performed By: #### 5 7021-8 ####[facility]ATORYCLIA [id number] [address] [place] Hemoglobin (Bld) [Mass/Vol] 11.4 g/dL Low 11.5-15.5 [facility] Comment on above: Order Comment: Speci men Type: BLOOD SPECIMENOrdering Facility: [facility] Address: [address] [place] [address] Performed By: #### 5 7021-8 ####[facility]ATORYCLIA [id number] [address] [place] Immature granulocytes (Bld) [#/Vol] 0.05 10*3/uL Normal <0.10 [facility] Comment on above: Order Comment: Speci men Type: BLOOD SPECIMENOrdering Facility: [facility] Address: [address] [place] [address] Performed By: #### 5 7021-8 ####[facility]ATORYCLIA [id number] [address] [place] Immature granulocytes/100 WBC (Bld) 0.5 % Normal [facility] Comment on above: Order Comment: Speci men Type: BLOOD SPECIMENOrdering Facility: [facility] Address: [address] [place] [address] Performed By: #### 5 7021-8 ####[facility]ORATORYCLIA [id number] [address] [place] Lymphocytes (Bld) [#/Vol] 1.27 10*3/uL Normal 1.00-4.00 [facility] Comment on above: Order Comment: Speci men Type: BLOOD SPECIMENOrdering Facility: [facility] Address: [address] [place] [address] Performed By: #### 5 7021-8 ####[facility]ORATORYCLIA [id number] [address] STATES [facility] Lymphocytes/100 WBC (Bld) 13.5 % Normal [facility] Comment on above: Order Comment: Speci men Type: BLOOD SPECIMENOrdering Facility: [facility] Address: [address] [place] [address] Performed By: #### 5 7021-8 ####[facility]ORATORYCLIA [id number] [address] [place] MCH (RBC) [Entitic mass] 29.9 pg Normal 26.0-34.0 [facility] Comment on above: Order Comment: Speci men Type: BLOOD SPECIMENOrdering Facility: [facility] Address: [address] [place] [address] Performed By: #### 5 7021-8 ####[facility]ATORYCLIA [id number] [address] [place] MCHC (RBC) [Mass/Vol] 33.1 g/dL Normal 30.5-36.0 [facility] Comment on above: Order Comment: Speci men Type: BLOOD SPECIMENOrdering Facility: [facility] Address: [address] [place] [address] Performed By: #### 5 7021-8 ####[facility]ORATORYCLIA [id number] [address] [place] MCV (RBC) [Entitic vol] 90.3 fL Normal 80.0-100.0 [facility] Comment on above: Order Comment: Speci men Type: BLOOD SPECIMENOrdering Facility: [facility] Address: [address] [place] [address] Performed By: #### 5 7021-8 ####[facility]ORATORYCLIA [id number] [address] [place] Monocytes (Bld) [#/Vol] 0.96 10*3/uL High <0.87 [facility] Comment on above: Order Comment: Speci men Type: BLOOD SPECIMENOrdering Facility: [facility] Address: [address] [place] [address] Performed By: #### 5 7021-8 ####[facility]ORATORYCLIA [id number] [address] [place] Monocytes/100 WBC (Bld) 10.2 % Normal [place] Comment on above: Order Comment: Speci men Type: BLOOD SPECIMENOrdering Facility: [facility] Address: [address] [place] [address] Performed By: #### 5 7021-8 ####[facility]ORATORYCLIA [id number] [address] [place] Neutrophils (Bld) [#/Vol] 6.91 10*3/uL Normal 1.45-7.50 [facility] Comment on above: Order Comment: Speci men Type: BLOOD SPECIMENOrdering Facility: [facility] Address: [address] [place] [address] Performed By: #### 5 7021-8 ####[facility]ORATORYCLIA [id number] [address] Neutrophils/100 WBC (Bld) 73.8 % Normal [facility] Comment on above: Order Comment: Speci men Type: BLOOD SPECIMENOrdering Facility: [facility] Address: [address] [place] [address] Performed By: #### 5 7021-8 ####[facility] LABORATORYCLIA [id number] [address] [place] Nucleated RBC (Bld) [#/Vol] 10*3/uL Normal <0.01 [facility] Comment on above: Order Comment: Speci men Type: BLOOD SPECIMENOrdering Facility: [facility] Address: [address] [place] [address] Performed By: #### 5 7021-8 ####[facility]ATORYCLIA [id number] [address] Nucleated RBC/100 WBC (Bld) [Ratio] 0.0 /100 WBC Normal [facility] Comment on above: Order Comment: Speci men Type: BLOOD SPECIMENOrdering Facility: [facility] Address: [address] [place] [address] Performed By: #### 5 7021-8 ####[facility]ORATORYCLIA [id number] [address] [place] Platelet mean volume (Bld) [Entitic vol] 9.2 fL Normal 9.0-12.7 [facility] Comment on above: Order Comment: Speci men Type: BLOOD SPECIMENOrdering Facility: [facility] Address: [address] [place] [address] Performed By: #### 5 7021-8 ####[facility]ATORYCLIA [id number] [address] [place] Platelets (Bld) [#/Vol] 156 10*3/uL Normal 150-400 [facility] Comment on above: Order Comment: Speci men Type: BLOOD SPECIMENOrdering Facility: [facility] Address: [address] [place], [place] [address] Performed By: #### 5 7021-8 ####[facility] LABORATORYCLIA [id number] [address] STATES OF [facility] RBC (Bld) [#/Vol] 3.81 10*6/uL Low 3.90-5.20 [facility] Comment on above: Order Comment: Speci men Type: BLOOD SPECIMENOrdering Facility: [facility] Address: [address] [place] [address] Performed By: #### 5 7021-8 ####[facility]ORATORYCLIA [id number] [address] WBC (Bld) [#/Vol] 9.38 10*3/uL Normal 3.70-11.00 [facility] Comment on above: Order Comment: Speci men Type: BLOOD SPECIMENOrdering Facility: [facility] Address: [address] [place] [address] Performed By: #### 5 7021-8 ####[facility] LABORATORYCLIA [id number] [place] [id number] [facility] CBC W/Diff, Automatedon 05- Absolute Lymph 1.09 X10 3/uL Normal 0.83-4.51 [facility] Comment on above: Performed By: #### L 400.0001, L502.0250, L506.1001, L501.0900 #### [facility] [address] [place], [address] Absolute Neut 6.8 X10 3/uL Normal 2.0-7.7 [facility] Comment on above: Performed By: #### L 400.0001, L502.0250, L506.1001, L501.0900 #### [facility] [address] [place], [address] Basophils/100 WBC (Bld) 0.4 % Normal 0-1 [facility] Comment on above: Performed By: #### L 400.0001, L502.0250, L506.1001, L501.0900 #### [facility] [address] [place], [address] Eosinophils/100 WBC (Bld) 2.5 % Normal 0-5 [facility] Comment on above: Performed By: #### L 400.0001, L502.0250, L506.1001, L501.0900 #### [facility] [address], [address] Erythrocyte distribution width (RBC) [Ratio] 13.0 % Normal 11.6-14.6 [facility] Comment on above: Performed By: #### L 400.0001, L502.0250, L506.1001, L501.0900 #### [facility] [address] [place], [address] Hematocrit (Bld) [Volume fraction] 33.8 % Low 37-47 [facility] Comment on above: Performed By: #### L 400.0001, L502.0250, L506.1001, L501.0900 #### [facility] [address], [address] Hemoglobin (Bld) [Mass/Vol] 11.2 g/dL Low 12.0-15.0 [facility] Comment on above: Performed By: #### L 400.0001, L502.0250, L506.1001, L501.0900 #### [facility] [address] [place], [address] IG% 0.600 Normal 0.0-0.9 [facility] Comment on above: Result Comment: IG% - Immature Granulocytes (promyelocytes, myelocytes and metamyelocytes) > 1% indicates that a LEFT SHIFT is Present. Performed By: #### L 400.0001, L502.0250, L506.1001, L501.0900 #### [facility] [address] [place], [address] Lymphocytes/100 WBC (Bld) 12.0 % Low 19-41 [facility] Comment on above: Performed By: #### L 400.0001, L502.0250, L506.1001, L501.0900 #### [facility] [address] [place], [address] MCH (RBC) [Entitic mass] 29.6 pg Normal 27.0-32.0 [facility] Comment on above: Performed By: #### L 400.0001, L502.0250, L506.1001, L501.0900 #### [facility] [address] [place], [address] MCHC (RBC) [Mass/Vol] 33.1 g/dL Normal 32-36 [facility] Comment on above: Performed By: #### L 400.0001, L502.0250, L506.1001, L501.0900 #### [facility] [address] [place], [address] MCV (RBC) [Entitic vol] 89.2 fL Normal 81-99 [facility] Comment on above: Performed By: #### L 400.0001, L502.0250, L506.1001, L501.0900 #### [facility] [address] [place], [address] Monocytes/100 WBC (Bld) 9.5 % Normal 0-10 [facility] Comment on above: Performed By: #### L 400.0001, L502.0250, L506.1001, L501.0900 #### [facility] [address] [place], [address] Neutrophils/100 WBC (Bld) 75.0 % High 47-70 [facility] Comment on above: Performed By: #### L 400.0001, L502.0250, L506.1001, L501.0900 #### [facility] [address] [place], [address] Nucleated RBC (Bld) [#/Vol] 0 10*3/uL Normal 0-5 [facility] Comment on above: Performed By: #### L 400.0001, L502.0250, L506.1001, L501.0900 #### [facility] [address] [place], [address] Platelet mean volume (Bld) [Entitic vol] 9.2 fL Normal 6.2-12.0 [facility] Comment on above: Performed By: #### L 400.0001, L502.0250, L506.1001, L501.0900 #### [facility] [address] [place], [address] Platelets (Bld) [#/Vol] 157 10*3/uL Normal 150-450 [facility] Comment on above: Performed By: #### L 400.0001, L502.0250, L506.1001, L501.0900 #### [facility] [address] [place], [address] RBC (Bld) [#/Vol] 3.79 10*6/uL Low 4.2-5.4 [facility] Comment on above: Performed By: #### L 400.0001, L502.0250, L506.1001, L501.0900 #### [facility] [address] [place], [address] RDW SD 42.5 fl Normal 35.1-43.9 [facility] Comment on above: Performed By: #### L 400.0001, L502.0250, L506.1001, L501.0900 #### [facility] [address] [place], [address] WBC (Bld) [#/Vol] 9.1 10*3/uL Normal 4.4-11.0 [facility] Comment on above: Performed By: #### L 400.0001, L502.0250, L506.1001, L501.0900 #### [facility] [place], [address] CONSULTon 08-01-2024 CONSULT HNO ID: [id number] Author: MARTÍN MCCARTHY MD Service: Neurosurgery Author Type: Nurse Practitioner Type: Consults Filed: 08/02/2024 11:08 Note Text: Attestation signed by Martín Mccarthy MD at 08/02/2024 11:08 AM Attending Note I reviewed pertinent patient history and examination performed by PA/MANAGER ENGINE, relevant laboratory results and imaging studies. Unless indicated below I agree with the plan of care discussed. 84F on ASA s/p fall and face injury from home CT brain - anterioor interhemispheric aSDH with minimal local mass effect. Stable on repeat imaging - stable scan and clinically - hold ASA until f/up - OP f/up with NSx KARL in 2 weeks Martín Mccarthy MD CONSULT: NEUROSURGERY SERVICE Patient Name: Tamica Anderson Date of : 1940 SERVICE DATE: 08/01/2024 SERVICE TIME: 3:34 PM REASON FOR CONSULT: subdural hematoma post fall REQUESTING PHYSICIAN: Jeremy Irving MD PRIMARY CARE PHYSICIAN: No primary care provider on file. CHIEF COMPLAINT: face pain HISTORY OF PRESENT ILLNESS : Ms. Anderson is a 84 year old female with PMHx of recurrent falls, CAD s/p PCI with stents 2001 on ASA, CABG in 2001, HTN, HLD, T2DM and CKD that presents after GLF at home. Patient reports she has had several falls in the last month. She reports the falls are either related to her walker getting stuck or balance. Patient has bruising to her face and upper lip laceration, she endorses face pain. CT head indicates acute subdural hematoma involving the lower anterior interhemispheric fissure. She denies any LOC, dizziness, headache or n/v. She reports taking a baby ASA daily. No past medical history on file. No past surgical history on file. No family history on file. ALLERGIES No Known Allergies Current Facility-Administered Medications Medication Dose Route Frequency Provider Last Rate Last Admin NaCl 0.9% iv flush bag 20 mL INTRAVENOUS PRN Kelle Simeon DO iv contrast (radiology procedure) INTRAVENOUS DIRECTED PRN Ericka Ontiveros DO iv contrast (radiology procedure) INTRAVENOUS DIRECTED PRN Ericka Ontiveros DO NaCl 0.9% iv infusion 75 mL/hr INTRAVENOUS CONTINUOUS Ericka Ontiveros DO 75 mL/hr at 08/01/24 1453 75 mL/hr at 08/01/24 1453 potassium chloride 20-40 mEq oral powder (KLOR-CON) 20-40 mEq ORAL/FEEDING TUBE PRN Ericka Ontiveros DO 40 mEq at 08/01/24 1519 Or potassium chloride iv piggyback 20 mEq/100 mL 20 mEq INTRAVENOUS PRN Ericka Ontiveros DO sodium phosphate 30 mmol in D5W 250 mL 30 mmol INTRAVENOUS PRN(NO DISPENSE) Ericka Ontiveros DO Or sodium phosphate 45 mmol in D5W 250 mL 45 mmol INTRAVENOUS PRN(NO DISPENSE) Ericka Ontiveros DO magnesium sulfate iv piggyback in sterile water 2 g 50 mL 2 g INTRAVENOUS PRN Ericka Ontiveros DO calcium gluconate iv piggyback 2 g in NaCl (iso-osmotic) 100 mL 2 g INTRAVENOUS PRN(NO DISPENSE) Ericka Ontiveros DO dextrose 15 gram/32 mL 15 g (TRUEPLUS) 15 g ORAL PRN Ericka Ontiveros DO Or glucagon 1 mg injection 1 mg INTRAMUSCULAR PRN Ericka Ontiveros DO Or dextrose 10% iv bolus 12.5 g INTRAVENOUS PRN Ericka Ontiveros DO insulin lispro injection (rapid acting) (ADMElog) SUBCUTANEOUS q 6 H Ericka Ontiveros DO 1 Units at 08/01/24 1517 No current outpatient medications on file. COMPLETE REVIEW OF SYSTEMS - 10 Systems were reviewed and otherwise Noncontributory but that in the HPI PAIN ASSESSMENT: see HPI NEURO: see HPI MEDS: Current Facility-Administered Medications Medication Dose Route Frequency NaCl 0.9% iv flush bag 20 mL INTRAVENOUS PRN iv contrast (radiology procedure) INTRAVENOUS DIRECTED PRN iv contrast (radiology procedure) INTRAVENOUS DIRECTED PRN NaCl 0.9% iv infusion 75 mL/hr INTRAVENOUS CONTINUOUS potassium chloride 20-40 mEq oral powder (KLOR-CON) 20-40 mEq ORAL/FEEDING TUBE PRN Or potassium chloride iv piggyback 20 mEq/100 mL 20 mEq INTRAVENOUS PRN sodium phosphate 30 mmol in D5W 250 mL 30 mmol INTRAVENOUS PRN(NO DISPENSE) Or sodium phosphate 45 mmol in D5W 250 mL 45 mmol INTRAVENOUS PRN(NO DISPENSE) magnesium sulfate iv piggyback in sterile water 2 g 50 mL 2 g INTRAVENOUS PRN calcium gluconate iv piggyback 2 g in NaCl (iso-osmotic) 100 mL 2 g INTRAVENOUS PRN(NO DISPENSE) dextrose 15 gram/32 mL 15 g (TRUEPLUS) 15 g ORAL PRN Or glucagon 1 mg injection 1 mg INTRAMUSCULAR PRN Or dextrose 10% iv bolus 12.5 g INTRAVENOUS PRN insulin lispro injection (rapid acting) (ADMElog) SUBCUTANEOUS q 6 H OBJECTIVE: BP 153/70 Pulse 76 Temp (Src) 98.1 (Oral) Resp 16 Wt 144 lb 1.6 oz (65.4kg) SpO2 99% O2 Therapy: Humidified Face Tent, Liters (Numeric Only): 8, %FIO2: 35 Recent Labs 08/01/24 0559 NA 139 K 3.3* CHLOR 97* CO2 32* BUN 26* (more content not included)... [facility] CONSULT HNO ID: [id number] Author: ECTOR GONZALEZ MD Service: General Surgery Author Type: Physician Type: Consults Filed: 08/03/2024 18:27 Note Text: Surgical Intensive Care Unit Consult Note SERVICE DATE: 08/01/2024 SERVICE TIME: 1:18 PM REASON FOR CONSULT: SDH Subjective 84 year old female with PMH of recurrent falls, CAD s/p PCI w/stents(2001) on ASA, CABG (2001) HTN, HLD, T2DM, CKD, possible Leg DVT who presents as trauma consult following a GLF on 07/31. Pt states that she fell after the wheel of her walker got caught, causing her to fall and strike her head on the floor. Pt denies LOC and states that she remembers the entire event. Pt was seen at OSH where CT imaging showed a SDH w/possible SAH prompting transfer to [facility] for further evaluation. Pt has no neuro deficit on exam. Pt takes baby ASA daily, no other anticoagulation. - tobacco, EtOH, recreational drug use FUNCTIONAL STATUS: Limited most or all of the time (uses scooter, mobility device) No past medical history on file. No past surgical history on file. No family history on file. (Not in a hospital admission) Current Facility-Administered Medications Medication Dose Route Frequency NaCl 0.9% iv flush bag 20 mL INTRAVENOUS PRN iv contrast (radiology procedure) INTRAVENOUS DIRECTED PRN iv contrast (radiology procedure) INTRAVENOUS DIRECTED PRN NaCl 0.9% iv infusion 75 mL/hr INTRAVENOUS CONTINUOUS potassium chloride 20-40 mEq oral powder (KLOR-CON) 20-40 mEq ORAL/FEEDING TUBE PRN Or potassium chloride iv piggyback 20 mEq/100 mL 20 mEq INTRAVENOUS PRN sodium phosphate 30 mmol in D5W 250 mL 30 mmol INTRAVENOUS PRN(NO DISPENSE) Or sodium phosphate 45 mmol in D5W 250 mL 45 mmol INTRAVENOUS PRN(NO DISPENSE) magnesium sulfate iv piggyback in sterile water 2 g 50 mL 2 g INTRAVENOUS PRN calcium gluconate iv piggyback 2 g in NaCl (iso-osmotic) 100 mL 2 g INTRAVENOUS PRN(NO DISPENSE) dextrose 15 gram/32 mL 15 g (TRUEPLUS) 15 g ORAL PRN Or glucagon 1 mg injection 1 mg INTRAMUSCULAR PRN Or dextrose 10% iv bolus 12.5 g INTRAVENOUS PRN insulin lispro injection (rapid acting) (ADMElog) SUBCUTANEOUS q 6 H Allergies As of Date: 08/01/2024 (No Known Allergies) Fully Assessed 08/01/2024 COMPLETE REVIEW OF SYSTEMS: GENERAL: No weight loss, malaise or fevers. HEENT: Negative for frequent or significant headaches, No changes in hearing or vision, no nose bleeds or other nasal problems. NECK: Negative for lumps, goiter, pain and significant neck swelling. RESPIRATORY: Negative for cough, hemoptysis, wheezing, COPD, dyspnea or shortness of breath. CARDIOVASCULAR: Negative for chest pain, leg swelling, hypertension, CHF or palpitations. GI: No nausea, vomiting, or diarrhea. MUSCULOSKELETAL: Negative for joint pain or swelling, back pain or muscle pain. SKIN: Negative for lesions, rash, and itching. PSYCH: Negative for sleep disturbance, mood disorder and recent psychosocial stressors. NEURO: No history of headaches, syncope, paralysis, seizures or tremors. Objective PHYSICAL EXAM: BP 192/83 Pulse 79 Temp (Src) 98.1 (Oral) Resp 19 Wt 144 lb 1.6 oz (65.4kg) SpO2 93% O2 Therapy: Humidified Face Tent, Liters (Numeric Only): 8, %FIO2: 35 NEURO: Alert AND Oriented x 3, GCS 15, Cranial Nerves II-XII grossly Intact, Moves All Extremities, Strength Symmetrical, No Sensory Deficits. HEENT: Head: Ecchymosis scattered around face and forehead, soft tissue swelling with overlying ecchymosis present on R forehead, midline lip with ~2 cm laceration otherwise no other No lacerations or abrasions, no bony step-offs, midface stable to palpation. Eyes: PERRL, conjunctiva/corneas without lesions, EOMI. Ears: Canals without blood or CSF drainage, TMs clear, external ears without lacerations. Nose: Septum midline, no crepitus with motion. Throat: Oral mucosa without lacerations, teeth in place, tongue without lacerations. NECK: No midline pain with palpation, no lacerations/wounds, trachea midline. RESPIRATORY: No abrasions or contusions, no crepitus, chest wall TTP over R side, equal excursion. Unlabored breathing on NC CARDIOVASCULAR: regular rate, good perfusion throughout ABDOMEN: Soft, non-distended, non-tender, no scars or lacerations, no rebound or guarding. No masses or organomegaly. PELVIC/PERINEAL: Pelvis stable to palpation, no blood noted at urethra meatus, gluteal contraction intact. BACK/SPINE: Thoracolumbar spinal column non-tender, no step-off or deformity noted, Ecchymosis over L shoulder blade otherwise no external injury noted. EXTREMITIES: Scattered ecchymosis over b/l UE, skin tears present on the R forearm and L posterior upper arm otherwise Arm/shoulder normal bilaterally, forearm/elbow normal bilaterally, hand/wrist normal bilaterally, thigh/hip normal bilaterally, leg/knee normal bilaterally, foot/ankle normal bilaterally. Chronic swelling of L leg and ankle. Chronic ap (more content not included)... [facility] CT ABD/PEL W IVCONon 08-01-[address] ABD/PEL W IVCON * * *Final Report* * * DATE OF EXAM: Aug 01 2024 10:53AM [facility] 0530 - CT ABD/PEL W IVCON / PROCEDURE REASON: Abdominal trauma, blunt * * * * Physician Interpretation * * * * EXAMINATION: CT ABDOMEN AND PELVIS WITH IV CONTRAST CLINICAL HISTORY: Trauma, pain, subdural hematoma TECHNIQUE: CT of the abdomen and pelvis was performed using standard technique, scanning from just above the dome of the diaphragm to the symphysis pubis. MQ: CTAP_3 Contrast: IV: 100 ml of Omnipaque 350 : ml of CT Radiation dose: Integrated Dose-length product (DLP) for this visit = 932 mGy*cm. CT Dose Reduction Employed: Automated exposure control (AEC) COMPARISON: None. RESULT: Liver: No mass. Biliary: No bile duct dilation. Surgical absence of the gallbladder Spleen: No mass. No splenomegaly. Pancreas: No mass or duct dilation. Adrenals: No mass. Kidneys: No signs of acute injury. Symmetrical nephrogram phase. Small right cortical cyst. GI tract: No dilation or wall thickening. Moderate volume retained fecal material throughout the colon Lymph nodes: No abdominal or pelvic lymphadenopathy. Mesentery/Peritoneum: No ascites or mass. Retroperitoneum: No mass. Vasculature: Atherosclerotic changes without large vessel occlusion Pelvis: No mass, ascites or fluid collection. Bones/Soft Tissues: Left hip replacement. T11 kyphoplasty. Refer to CT spine report Lower thorax: Refer to CT chest Localizer images: IMPRESSION: No CT evidence of traumatic injury to the abdomen or pelvis Toll Gate Tender: PABLO Transcribe Date/Time: Aug 01 2024 11:22A Dictated by : MACARENA ROBLES MD This examination was interpreted and the report reviewed and electronically signed by: MACARENA ROBLES MD on Aug 01 2024 11:24AM EST [id number] [facility] CT BRAIN WO IVCONon 08-02-19 CT BRAIN WO IVCON * * *Final Report* * * DATE OF EXAM: Aug 01 2024 8:21PM [facility] 0504 - CT BRAIN WO IVCON / PROCEDURE REASON: Head trauma, moderate-severe * * * * Physician Interpretation * * * * EXAMINATION: CT BRAIN WO IVCON CLINICAL HISTORY: Hemorrhage. TECHNIQUE: Serial axial images without IV contrast were obtained from the vertex to the foramen magnum. MQ: CTBWO_3 CT Radiation dose: Integrated Dose-Length Product (DLP) for this visit = 718 mGy*cm CT Dose Reduction Employed: Automated exposure control(AEC) and iterative recon COMPARISON: CT dated 08/01/2024 at 10:26 AM. RESULT: Localizer images: No additional findings. Post-operative change: None. Acute change: No evidence of an acute infarct or other acute parenchymal process. Hemorrhage: Redemonstration of acute subdural hemorrhage approximately 8 mm in thickness, unchanged. Small volume adjacent subarachnoid hemorrhage redemonstrated unchanged. ECASS hemorrhagic transformation score: Not Applicable Mass Lesion / Mass Effect: There is no evidence of an intracranial mass or extraaxial fluid collection. No significant mass effect. Chronic change: Scattered patchy foci of low attenuation are present within the supratentorial white matter, a nonspecific finding that most commonly represents mild small vessel disease. Parenchyma: There is moderate generalized volume loss. The brain parenchyma is otherwise within normal limits for age. Ventricles: The ventricles are within normal limits of size and configuration for age. Paranasal sinuses and skull base: The visualized paranasal sinuses are grossly clear. Right frontal scalp hematoma/contusion redemonstrated. Partially visualized perinasal hematoma, and nasal septal fractures with suspected anterior nasal septal hematoma. IMPRESSION: 1. No significant interval change. 2. Redemonstration of acute midline anterior subdural hemorrhage approximately 8 mm in thickness, unchanged. Small volume adjacent subarachnoid hemorrhage redemonstrated unchanged. 3. Right frontal scalp hematoma/contusion redemonstrated. 4. Partially visualized perinasal hematoma, and nasal septal fractures with suspected anterior nasal septal hematoma. Toll Gate Tender: PABLO Transcribe Date/Time: Aug 01 2024 8:38P Dictated by : SUSANA GUPTA MD This examination was interpreted and the report reviewed and electronically signed by: SUSANA GPUTA MD on Aug 01 2024 8:43PM EST [id number] [facility] CT BRAIN WO IVCON * * *Final Report* * * DATE OF EXAM: Aug 01 2024 10:53AM [facility] 0504 - CT BRAIN WO IVCON / PROCEDURE REASON: Subdural hematoma * * * * Physician Interpretation * * * * EXAMINATION: CT BRAIN WO IVCON CLINICAL HISTORY: Trauma, subdural hematoma , facial trauma TECHNIQUE: Serial axial images without IV contrast were obtained from the vertex to the foramen magnum. MQ: CTBWO_3 CT Radiation dose: Integrated Dose-Length Product (DLP) for this visit = 801 mGy*cm CT Dose Reduction Employed: Iterative recon COMPARISON: 08/01/2024 CT facial. RESULT: Right frontal scalp hematoma Post-operative change: None. Acute change: No evidence of an acute infarct or other acute parenchymal process. Hemorrhage: Acute subdural hematoma involving the lower anterior interhemispheric fissure which measures 8 mm in maximum width. Small volume of an adjacent acute subarachnoid hemorrhage in the anterior inferior frontal lobes Mass Lesion / Mass Effect: There is no evidence of an intracranial mass.. No significant positive mass effect Chronic change: Moderate supratentorial chronic microvascular ischemic changes Parenchyma: Moderate parenchymal volume loss Ventricles: Generalized ventricular enlargement corresponding to atrophy Paranasal sinuses and skull base: The visualized paranasal sinuses are grossly clear. The skull base and imaged soft tissues are unremarkable. IMPRESSION: Acute subdural hematoma involving the lower anterior interhemispheric fissure which measures 8 mm in maximum width. Small volume of an adjacent acute subarachnoid hemorrhage in the anterior inferior frontal lobes Toll Gate Tender: PSCB Transcribe Date/Time: Aug 01 2024 11:14A Dictated by : MACARENA ROBLES MD This examination was interpreted and the report reviewed and electronically signed by: MACARENA ROBLES MD on Aug 01 2024 11:17AM EST [id number] [facility] CT CHEST W IVCONon CT CHEST W IVCON * * *Final Report* * * DATE OF EXAM: Aug 01 2024 10:53AM [facility] 0539 - CT CHEST W IVCON / PROCEDURE REASON: Chest trauma, blunt * * * * Physician Interpretation * * * * EXAMINATION: CHEST CT WITH CONTRAST CLINICAL HISTORY: Subdural hematoma, trauma Technique: Spiral CT acquisition of the chest from the thoracic inlet to the upper abdomen following IV contrast. MQ: CTCW_6 Contrast: 100 mL Omnipaque [address] Radiation dose: Integrated Dose-length product (DLP) for this visit = 932 mGy*cm CT Dose Reduction Employed: Automated exposure control (AEC) Comparison: Type of study and date/time RESULT: Limitations: None. Lines, tubes, and devices: None. Sternotomy wires Lung parenchyma and airways: Mild subsegmental parenchymal changes posterior medial right lower lobe adjacent elevated right hemidiaphragm. No suspicious pulmonary nodule. The central airways are patent. Pleural space: No pleural effusion. No pleural thickening. No pneumothorax Lower neck, lymph nodes, and mediastinum: The imaged thyroid gland is normal. No lymphadenopathy in the supraclavicular, axillary, mediastinal, or hilar regions. Heart, pericardium, and thoracic vessels: Status post cardiovascular surgical changes The thoracic aorta and main pulmonary artery are normal in caliber. The cardiac chambers are enlarged in size. Dense coronary artery calcifications. No pericardial effusion or thickening. Bones and soft tissues: No destructive bone lesion. Chest wall is unremarkable. Degenerative change left shoulder joint. No displaced rib fractures T11 kyphoplasty Upper abdomen: No acute abnormality in the imaged upper abdomen. Localizer images: IMPRESSION: No CT evidence of acute traumatic abnormality of the chest. Toll Gate Tender: PABLO Transcribe Date/Time: Aug 01 2024 11:17A Dictated by : MACARENA ROBLES MD This examination was interpreted and the report reviewed and electronically signed by: MACARENA ROBLES MD on Aug 01 2024 11:21AM EST [id number] [facility] CT LUMBAR SPINE W RECON DATA -NBon 08-01-2024 CT LUMBAR SPINE W RECON DATA -NB * * *Final Report* * * DATE OF EXAM: Aug 01 2024 10:53AM [facility] 0481 - CT LUMBAR SPINE W RECON DATA -NB / PROCEDURE REASON: Spine fracture, lumbar, traumatic * * * * Physician Interpretation * * * * EXAMINATION: CT LUMBAR SPINE W RECON DATA -NB, CT T-SPINE W RECON DATA -NB CLINICAL HISTORY: Spine fracture, lumbar, traumatic TECHNIQUE: Spiral, high resolution axial unenhanced images were obtained from the cervicothoracic junction to the sacrum with sagittal and coronal planar reconstructions. MQ: CTTLWO_3 CT Radiation dose: Integrated Dose-Length Product (DLP) for this visit = 932 mGy*cm. CT Dose Reduction Employed: Automated exposure control (AEC) COMPARISON: None. RESULT: THORACIC: Counting reference: Cervicothoracic and lumbosacral junctions. Assume first thoracic rib is the T1 level. For the purposes of this report, L4-5 is at the iliac crest level Lead Principal Technical Architect (topogram) images: Alignment: Alignment is anatomic. Bone marrow / fracture: No evidence of a lytic or blastic process in the visualized spine. No evidence of acute compression fracture. T11 kyphoplasty Thoracic soft tissues: The paraspinal soft tissues planes are maintained. Canal and foramina: The bony thoracic canal and foramina are patent. LUMBAR: Counting reference: Cervicothoracic and lumbosacral junctions. Assume first thoracic rib is the T1 level. For the purposes of this report, L4-5 is at the iliac crest level Lead Principal Technical Architect (topogram) images: Alignment: Grade 1 anterolisthesis L4-5 level. Mild degree degenerative levoscoliosis lower lumbar spine Bone marrow / fracture: No evidence of a lytic or blastic process in the visualized spine. No evidence of acute compression fracture. Chronic superior endplate deformity L4 vertebral body. Paraspinal soft tissues: The paraspinal soft tissues planes are maintained. L1-L2: Canal and foramina are patent. L2-L3: Canal and foramina are patent L3-L4: Mild degree degenerative central canal foraminal stenosis L4-L5: Severe degree of degenerative central canal and bilateral foraminal stenosis L5-S1: Mild degree degenerative bilateral foraminal narrowing Sacrum and iliac wings: The visualized sacrum and iliac wings are within normal limits. The presacral soft tissues are normal in appearance. IMPRESSION: 1. No CT evidence of acute traumatic abnormality of thoracic or lumbar spine. No fracture or traumatic subluxation 2. T11 kyphoplasty.Chronic superior endplate deformity L4 vertebral body. 3. L4-L5: Severe degree of degenerative central canal and bilateral foraminal stenosis Anatomic Thoracic/Lumbar Variant: Lumbarization S1 vertebrae Toll Gate Tender: PABLO Transcribe Date/Time: Aug 01 2024 11:24A Dictated by : MACARENA ROBLES MD This examination was interpreted and the report reviewed and electronically signed by: MACARENA ROBLES MD on Aug 01 2024 11:30AM EST [id number] [facility] CT T-SPINE W RECON DATA -NBo n 08-01-2024 CT T-SPINE W RECON DATA -NB * * *Final Report* * * DATE OF EXAM: Aug 01 2024 10:53AM [facility] 0485 - CT T-SPINE W RECON DATA -NB / PROCEDURE REASON: Spine fracture, thoracic, traumatic * * * * Physician Interpretation * * * * EXAMINATION: CT LUMBAR SPINE W RECON DATA -NB, CT T-SPINE W RECON DATA -NB CLINICAL HISTORY: Spine fracture, lumbar, traumatic TECHNIQUE: Spiral, high resolution axial unenhanced images were obtained from the cervicothoracic junction to the sacrum with sagittal and coronal planar reconstructions. MQ: CTTLWO_3 CT Radiation dose: Integrated Dose-Length Product (DLP) for this visit = 932 mGy*cm. CT Dose Reduction Employed: Automated exposure control (AEC) COMPARISON: None. RESULT: THORACIC: Counting reference: Cervicothoracic and lumbosacral junctions. Assume first thoracic rib is the T1 level. For the purposes of this report, L4-5 is at the iliac crest level Lead Principal Technical Architect (topogram) images: Alignment: Alignment is anatomic. Bone marrow / fracture: No evidence of a lytic or blastic process in the visualized spine. No evidence of acute compression fracture. T11 kyphoplasty Thoracic soft tissues: The paraspinal soft tissues planes are maintained. Canal and foramina: The bony thoracic canal and foramina are patent. LUMBAR: Counting reference: Cervicothoracic and lumbosacral junctions. Assume first thoracic rib is the T1 level. For the purposes of this report, L4-5 is at the iliac crest level Lead Principal Technical Architect (topogram) images: Alignment: Grade 1 anterolisthesis L4-5 level. Mild degree degenerative levoscoliosis lower lumbar spine Bone marrow / fracture: No evidence of a lytic or blastic process in the visualized spine. No evidence of acute compression fracture. Chronic superior endplate deformity L4 vertebral body. Paraspinal soft tissues: The paraspinal soft tissues planes are maintained. L1-L2: Canal and foramina are patent. L2-L3: Canal and foramina are patent L3-L4: Mild degree degenerative central canal foraminal stenosis L4-L5: Severe degree of degenerative central canal and bilateral foraminal stenosis L5-S1: Mild degree degenerative bilateral foraminal narrowing Sacrum and iliac wings: The visualized sacrum and iliac wings are within normal limits. The presacral soft tissues are normal in appearance. IMPRESSION: 1. No CT evidence of acute traumatic abnormality of thoracic or lumbar spine. No fracture or traumatic subluxation 2. T11 kyphoplasty.Chronic superior endplate deformity L4 vertebral body. 3. L4-L5: Severe degree of degenerative central canal and bilateral foraminal stenosis Anatomic Thoracic/Lumbar Variant: Lumbarization S1 vertebrae Toll Gate Tender: PABLO Transcribe Date/Time: Aug 01 2024 11:24A Dictated by : MACARENA ROBLES MD This examination was interpreted and the report reviewed and electronically signed by: MACARENA ROBLES MD on Aug 01 2024 11:30AM EST [id number] Normal [facility] Carbon dioxide, total [Moles /volume] in Central venous bloodOrdered By: Cedric Verde on 08-01-2024 CO2 [Moles/Vol] 29.6 mmol/L 21.0-32.0 [facility] Chest without Contraston Chest without Contrast [facility] Imaging Services [address] [place] [address] [id number] Chest without Contrast MR#: [id number] Acct: [id number] Name: TAMICA ANDERSON Rep #: [id number] : 1940 F 84 From: Dileep Britt MD PCP: Dr. Dominique Lang MD Status: [facility] ER Study: Chest without Contrast Date of Exam: 08/01/24 Exam# [id number] Ordering Dr: Cedric Verde DO PROCEDURE: CHEST WITHOUT CONTRAST 08/01/2024 REASON FOR EXAM: RIB PAIN TECHNIQUE: Chest CT without contrast. Coronal and Sagittal reconstruction series were provided. One or more dose reduction techniques were used (e.g., Automated exposure control, adjustment of the mA and/or kV according to patient size, use of iterative reconstruction technique RADIATION DOSE SUMMARY: CTDlvol: 12.01 mGy DLP: 378.20 mGycm FINDINGS: The central airways appear patent. Areas of atelectasis right middle lobe, right lower lobe and lingula. The lungs otherwise appear clear. No pneumothorax. Thoracic aorta appears within limits on noncontrast imaging. Three-vessel heavy coronary calcification and/or stents. No pericardial or pleural effusion. Focal calcification at the head of the pancreas may represent pancreatic calcification with possible choledocholithiasis not excluded. A couple of branching calcifications at the moose hepatis may be vascular. A couple foci of air at the central liver possibly pneumobilia, correlate for history of sphincterotomy. Gallbladder is not seen. Severe left shoulder osteoarthrosis. Status post median sternotomy. Old right clavicle fracture deformity. Scoliosis. Status post vertebroplasty T11. CT/Chest without Contrast IMPRESSION: No evidence of acute intrathoracic traumatic injury on noncontrast imaging. Other findings as above. Reading Location: [facility] CC: Dr. Dominique Lang MD; Cedric Verde DO [employer] Tender: Signed [facility] Chloride assayOrdered By: Do Verde on 08-01-2024 Chloride [Moles/Vol] 98 mmol/L 98-108 [facility] ED NOTEon 08-01-2024 ED NOTE HNO ID: [id number] Author: MELISSA LEMON RN Service: ? Author Type: Registered Nurse Type: ED Notes Filed: 08/01/2024 21:18 Note Text: AURBIE Davis RN SICU [facility] ED NOTE HNO ID: [id number] Author: MELISSA LEMON RN Service: ? Author Type: Registered Nurse Type: ED Notes Filed: 08/01/2024 19:32 Note Text: CT notified [facility] ED NOTE HNO ID: [id number] Author: SARAH WETZEL RN Service: Nursing Author Type: Registered Nurse Type: ED Notes Filed: 08/01/2024 18:51 Note Text: Bed change done. Pt. Repositioned for comfort. Normal [facility] ED NOTE HNO ID: [id number] Author: SARAH WETZEL RN Service: Nursing Author Type: Registered Nurse Type: ED Notes Filed: 08/01/2024 17:44 Note Text: Right skin tear redressed. Pt. Repositioned. [facility] ED NOTE HNO ID: [id number] Author: SARAH WETZEL RN Service: Nursing Author Type: Registered Nurse Type: ED Notes Filed: 08/01/2024 16:43 Note Text: Pt. Removed oxygen tent. Pulse ox 93% on RA. Placed on 2 L NC. Trauma at bedside. [facility] ED NOTE HNO ID: [id number] Author: SARAH WETZEL RN Service: Nursing Author Type: Registered Nurse Type: ED Notes Filed: 08/01/2024 16:42 Note Text: CT called. [facility] ED NOTE HNO ID: [id number] Author: SARAH WETZEL RN Service: Nursing Author Type: Registered Nurse Type: ED Notes Filed: 08/01/2024 12:39 Note Text: Pt. Awake and on phone. Hands and face cleaned up. Clean, warm blankets given. No active bleeding at this time. [facility] ED NOTE HNO ID: [id number] Author: SARAH WETZEL RN Service: Nursing Author Type: Registered Nurse Type: ED Notes Filed: 08/01/2024 12:19 Note Text: Pt. Placed on tent mask per respiratory. Oxygen saturation 99%. Pt. Tolerating well. Awaiting neurosurgery to see. [facility] ED NOTE HNO ID: [id number] Author: SARAH WETZEL RN Service: Nursing Author Type: Registered Nurse Type: ED Notes Filed: 08/01/2024 11:35 Note Text: Respiratory to see pt. To assist with oxygen. [facility] ED NOTE HNO ID: [id number] Author: SARAH WETZEL RN Service: Nursing Author Type: Registered Nurse Type: ED Notes Filed: 08/01/2024 11:24 Note Text: Pt. 89% on [address] Moore aware. No further orders. [facility] ED NOTE HNO ID: [id number] Author: SARAH WETZEL RN Service: Nursing Author Type: Registered Nurse Type: ED Notes Filed: 08/01/2024 11:06 Note Text: Pt. Oxygen saturation 88% on 4 LNC. Oxygen increased to 6 L NC. Clots noted to mouth. Dr. Moore aware. [facility] ED NOTE HNO ID: [id number] Author: SARAH WETZEL, BARBARA Service: Nursing Author Type: Registered Nurse Type: ED Notes Filed: 08/01/2024 09:03 Note Text: CT called for add on scans. [facility] ED NOTE HNO ID: [id number] Author: SARAH WETZEL RN Service: Nursing Author Type: Registered Nurse Type: ED Notes Filed: 08/01/2024 08:15 Note Text: Pt. On cardiac nurse practitioner. [facility] ED NOTE HNO ID: [id number] Author: SARAH WETZEL RN Service: Nursing Author Type: Registered Nurse Type: ED Notes Filed: 08/01/2024 07:39 Note Text: CT called. [facility] ED NOTE HNO ID: [id number] Author: MALU IRENE RN Service: Emergency Medicine Author Type: Registered Nurse Type: ED Notes Filed: 08/01/2024 06:16 Note Text: Pt trying to sleep on assessment. Pt spo2 89%. Pt denies SOB. Pt placed on 4LNC [facility] ED PROGRESS NOTE (PROVIDER)o n 08-01-2024 ED PROGRESS NOTE (PROVIDER) HNO ID: [id number] Author: ANNA CADET MD Service: Emergency Medicine Author Type: Physician Type: ED PROGRESS NOTE (PROVIDER) Filed: 08/01/2024 14:16 Note Text: ED CONTINUATION OF CARE NOTE Code Status: Full Code Assumed care from: Dr. Simeon Presentation / Findings / Interventions / Plan / Items to Follow Up: In short, this is an 84-year-old female presenting to the hospital from [place] as a transfer for neurosurgery trauma evaluation. The patient has reportedly fallen multiple times in the last couple weeks. She presented to the emergency department with extensive ecchymoses and facial trauma. Her CT of the brain showed a subdural hemorrhage, probably acute. The patient is on aspirin. The patient was signed out to me pending neurosurgery and trauma evaluations and disposition. ED Course as of 08/01/24 1314 Dionisio Moore Saranya's Documentation Sat August 01, 2024 1119 Trauma and NSGY paged for evaluation. Admission pending NSGY recommendations, per trauma. Others' Documentation Sat August 01, 2024 0614 Attending Note I evaluated the patient and personally participated in the rodriguez components. I agree with the resident's findings and plan as documented and have discussed the case and management of the patient's care with the resident. Patient alert, oriented, no distress. No respiratory distress. Patient has significant trauma to her head with significant ecchymosis. She has a large laceration to her upper lip with what appears to be a skin defect. She has a deformity to her nose. Patient is moving all extremities. She is in no respiratory distress. She has ecchymosis on multiple areas of her body. This is an 84-year-old female patient transferred from [facility] for neurosurgery/trauma evaluation. The patient reportedly has fallen multiple times over the last couple weeks. She presented to the emergency department there tonight with extensive ecchymosis and facial trauma. CT showed a subdural hemorrhage, probably acute. Patient is on aspirin. Trauma has been consulted. Anticipate patient will be admitted to their service. Signature: Briseyda Mosquera MD Date: 08/01/2024 Time: 6:14 AM I was present for the rodriguez portions of the procedure. Briseyda Mosquera MD [AR] [id number] Trauma paged x3 [SUSY] ED Course User Index [AR] Briseyda Mosquera MD [SUSY] Kelle iSmeon DO Clinical Impressions as of 08/01/24 1314 Subdural hematoma (HCC) Fall, sequela Closed fracture of nasal bone, initial encounter Lip laceration, initial encounter Medical Decision Making The patient is an 84-year-old female who presents to the ED as a transfer from [facility] for neurosurgery and trauma evaluation due to a subdural hemorrhage. Her vital signs are stable. The patient does not appear to be in any acute distress. I repaged trauma and neurosurgery due to prolonged disposition. I spoke with trauma who endorsed they are waiting for neurosurgery recommendations for admission. I spoke with neurosurgery who endorsed they were waiting for repeat imaging and to evaluate the patient for recommendations. The repeat CT scan of her brain brain shows an acute subdural hematoma involving the lower anterior anterior hemispheric fissure which measures 8 mm in maximum width. There is a small volume of adjacent acute subarachnoid hemorrhage in the anterior inferior frontal lobes. Her CT chest shows no acute evidence of traumatic abnormality of the chest. Her CT of the abdomen and pelvis shows no acute evidence of traumatic abnormality in the abdomen or pelvis. The CT of her lumbar and thoracic shows no evidence of traumatic abnormality of the thoracic or lumbar spine. There is no fracture or traumatic subluxation. There is T11 kyphoplasty and a chronic superior endplate deformity L4 vertebral body. 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 The patient was accepted under Dr. Gonzalez. The patient is agreeable to admission at this time SIGNATURE: Dionisio Moore MD PATIENT NAME: Tamica Anderson DATE: August 01, 2024 TIME: 7:43 AM PAGER/CONTACT #: Attending Note I evaluated the patient and personally participated in the rodriguez components. I agree with the resident's findings and plan as documented and have discussed the case and management of the patient's care with the resident. Signature: Anna Cadet MD Date: 08/01/2024 Time: 2:16 PM [facility] ED PROV NOTEon 08-01-2024 ED PROV NOTE HNO ID: [id number] Author: ANNA CADET MD Service: Emergency Medicine Author Type: Physician Type: ED Provider Notes Filed: 08/01/2024 13:12 Note Text: This patient was signed out to me by Dr. Mosquera as we awaiting recommendations from the trauma surgery and neurosurgical services. They have evaluated the patient and are planning on admitting him to the surgical ICU under the service of the trauma team. ANNA CADET 08/01/24 1312 Normal [facility] ED PROV NOTE HNO ID: [id number] Author: BRISEYDA MOSQUERA MD Service: Emergency Medicine Author Type: Physician Type: ED Provider Notes Filed: 08/01/2024 23:31 Note Text: ED Provider Note Patient Name: Tamica Anderson : 1940 SERVICE DATE: 08/01/24 History Patient presents with: Functional Transfers: From [facility] via [facility] after 6 falls since . Pt tripped on walker in the kitchen landing on her face. Pt has multiple bruising all over her body in different stages of healing. Pt pt has a broken nose and laceration to her lip. Pt denies LOC or blood thinners. HPI 84-year-old female presents emergency department as a transfer from the [place] ER for multiple falls over the last month including a fall yesterday evening unwitnessed resulting in a subdural hemorrhage and facial fractures. Past medical history of CAD (aspirin), HTN, HLD, type 2 diabetes, and CKD, patient states that approximately 930/10 PM she fell forward while attempting to use her walker landing on her face admitting to LOC. She has had multiple previous falls without being evaluated by medical provider. She presented to the [facility] ER and found to have a 7 mm subdural hemorrhage with a trace adjacent sulcal subarachnoid as well as as reported nasal fracture. She also has an upper lip laceration. On exam the patient is AO to self and location complaining of lip pain. She has no other complaints denying vision changes, difficulty talking, pain with extraocular movement, numbness or weakness, nausea, chest pain, SOB, fever, or abdominal. No past medical history on file. No past surgical history on file. No family history on file. Social History Tobacco Use - Smoking status: Not on file - Smokeless tobacco: Not on file Substance and Sexual Activity - Alcohol use: Not on file - Drug use: Not on file - Sexual activity: Not on file ALLERGIES No Known Allergies Review of Systems See [facility] for further details Physical Exam Vitals [08/01/24 0421] BP Pulse Temp Temp src Resp SpO2 Weight Height 168/67 73 36.7 ?C (98.1 ?F) Oral 18 (!) 92 % 65.4 kg (144 lb 1.6 oz) -- Physical Exam Constitutional: General: She is not in acute distress. Appearance: She is not toxic-appearing. HENT: Head: No Gallo's sign. Jaw: There is normal jaw occlusion. Comments: Scattered ecchymosis in varying stages of healing across the entire face Right Ear: Tympanic membrane, ear canal and external ear normal. No hemotympanum. Left Ear: Tympanic membrane, ear canal and external ear normal. No hemotympanum. Nose: Comments: Tenderness to the nasal bridge without septal hematoma Mouth/Throat: Lips: Lesions present. Mouth: Mucous membranes are moist. Comments: Dried blood notable to the tongue without blood in the posterior pharynx 0.5x 1cm cm rectangular chunk of the middle upper lip removed crossing the vermilion border Eyes: Extraocular Movements: Extraocular movements intact. Conjunctiva/sclera: Conjunctivae normal. Pupils: Pupils are equal, round, and reactive to light. Cardiovascular: Rate and Rhythm: Normal rate and regular rhythm. Pulses: Normal pulses. Heart sounds: Normal heart sounds. No murmur heard. Pulmonary: Effort: Pulmonary effort is normal. No respiratory distress. Breath sounds: Normal breath sounds. No wheezing or rales. Abdominal: General: Abdomen is flat. Bowel sounds are normal. There is no distension. Palpations: Abdomen is soft. Tenderness: There is no abdominal tenderness. There is no guarding. Musculoskeletal: Cervical back: Normal range of motion and neck supple. No tenderness. Right lower leg: Edema present. Left lower leg: Edema present. Skin: General: Skin is warm. Neurological: General: No focal deficit present. Mental Status: She is alert. Mental status is at baseline. Psychiatric: Mood and Affect: Mood normal. Diagnostic Testing ED Labs Ordered and Reviewed - No data to display Procedures ED Course / Clinical Impression ED Course as of 08/01/24 2330 Briseyda Mosquera's Documentation Sat August 01, 2024 0614 Attending Note I evaluated the patient and personally participated in the rodriguez components. I agree with the resident's findings and plan as documented and have discussed the case and management of the patient's care with the resident. Patient alert, oriented, no distress. No respiratory distress. Patient has significant trauma to her head with significant ecchymosis. She has a large laceration to her upper lip with what appears to be a skin defect. She has a deformity to her nose. Patient is moving all extremities. She is in no respiratory distress. She has ecchymosis on multiple areas of her body. This is an 84-year-old female patient transferred from [facility] for neurosurgery/trauma evaluation. The patient reportedly has fallen multiple times over the last couple weeks. She presented to the emergency department (more content not included)... Normal [facility] Emergency Department Summary on 08-01-2024 Emergency Department Summary [facility] Medical Records Department [address] [place] [address] Emergency Department Summary 08/01/24 MR#: [id number] Acct: [id number] Name: TAMICA ANDERSON Rep #: [id number] : 1940 84 From: Cedric Verde DO PCP: Dr. Dominique Lang MD Status:REG ER Location: ED HPI History of Present Illness Chief Complaint: Fall Informant: patient and family Narrative Narrative: Patient is an 84-year-old female who lives with family and has past medical history of coronary artery disease hypertension hyperlipidemia diabetes and chronic kidney disease. Patient and family report that she has been falling more frequently over the last few months. Patient and family state that she fell on 's Day striking the right side of her head. She then fell on Saturday injuring the back of her head. After these events she was not seen in the ER. However today she states she got up to use the bathroom around 930/10 PM. She states that she believes she tripped while using her walker and fell face first. She states that it did cause loss of consciousness. Son states that he heard the fall and when he went to her she was awake but groggy. He states after a few minutes she returned to her baseline mental status. However she had bruising to her face and bleeding from her nose and also sustained a upper lip laceration. Therefore at this event being more traumatic than the previous 2 she was brought in for evaluation. Patient states that she has mild pain to her face but otherwise has no complaints. Patient states she takes baby aspirin but no true blood thinner such as Eliquis Coumadin or Xarelto. [facility] Medical History Impingement of left shoulder Intertriginous candidiasis Incontinence Physical debility CPAP (continuous positive airway pressure) dependence Sleep apnea Fracture of right wrist with routine healing Obesity Right bundle branch block (RBBB) Pancreatitis Diabetes mellitus GERD (gastroesophageal reflux disease) HLD (hyperlipidemia) Essential (primary) hypertension Atherosclerotic heart disease of [place] coronary artery without angina pectoris Home Medications ???Medication ???Instructions ???Recorded ???Last Taken ???Type aspirin 81 mg tablet,delayed 81 mg PO DAILY heart 07/24/1806/06 History release (Adult Aspirin Regimen) furosemide 40 mg tablet 40 mg PO DAILY edema 05/18/2106/06 History potassium chloride 10 mEq 10 meq PO DAILY supplement 2 Unknown History tablet,extended release rosuvastatin 10 mg tablet (Crestor) 10 mg PO DAILY cholesterol 10/06 Unknown History acetaminophen 500 mg capsule 500 mg PO Q6H PRN Pain 04/26/22 Un known History nystatin 100,000 unit/gram topical 1 applic topical TID PRN 3 Unknown History ointment calcium carbonate 600 mg PO DAILY 06/10/23 Unknown H istory buspirone 10 mg tablet 10 mg PO TID 06/16/24 Unknown Hist ory gabapentin 100 mg capsule 100 mg PO QDAY 06/16/24 Unknown Hi story metformin 500 mg tablet 1,000 mg PO QDAY diabetes 06/16/24 Unknown History metronidazole 0.75 % lotion 1 applic topical BID 06/16/24 Unkn own History triamcinolone acetonide 0.5 % topical BID 06/16/24 Unknown Histo ry topical ointment clonazepam 0.5 mg tablet 0.5 mg PO BID PRN anxiety 06/30/24 Unknown History cyclosporine 0.05 % eye drops in a 1 drp ophthalmic (eye) BID 08/01 Unknown History dropperette sertraline 50 mg tablet 50 mg PO DAILY 08/01/24 Unknown Hi story Allergy/AdvReac Type Severity Reaction Status Date / Time adhesive tape AdvReac Unknown Verified 07/31/24 23:35 morphine AdvReac Vomiting Verified 07/31/24 23:35 Czstpwr-CAO-KgJ Reductase AdvReac Pain in Verified 07/31/24 23:35 Inhibitor (Zmgbvms-Qyi-Tgl joints Reductase Inhibitor) Family History Mother Hypertension Other CAD (coronary artery disease) Surgical History Fracture of left hip requiring operative repair Status post cardiac surgery Hx of hysterectomy Hx of cholecystectomy Hx of appendectomy History of coronary artery stent placement (11/17/14) 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) Social History household members: spouse Smoking Status: Never smoker alcohol intake: never substance use type: does not use caffeine: Yes Type: carbonated beverages what type of physical activity do you participate in: none seatbelt use: always do you feel safe at home: Yes ROS ROS ED Constitutional Constitutional ED: Denies chills or fever(s) Eyes Eyes: Denies blurry vision or change in vision ENT ENT ED: Reports other D (more content not included)... Normal [facility] Eosinophil percentageOrdered By: Cedric Verde on 08-01-2024 Eosinophils/100 WBC (Bld) 2.5 % 0-5 [facility] Erythrocyte distribution wid th ratioOrdered By: Cedric Verde on 08-01-2024 Erythrocyte distribution width (RBC) [Ratio] 13.0 % 11.6-14.6 [facility] Erythrocyte distribution wid th standard deviationOrdered By: Cedric Verde on 08-01-2024 Erythrocyte distribution width (RBC) [Ratio] 42.5 fl 35.1-43.9 [facility] Glomerular filtration rate ( GFR) estimation/1.73 sq m using serum, plasma, or whole bOrdered By: Cedric Verde on 08-01-2024 GFR/1.73 sq M.predicted among non-blacks MDRD (S/P/Bld) [Vol rate/Area] 66 mL/min/{1.73_m2} >60 [facility] Comment on above: mL/min/1.73m2 CKD-EP I Creatinine Equation (2020) HISTORY PHYSICALon HISTORY PHYSICAL HNO ID: [id number] Author: BUCK SAAVEDRA MD Service: General Surgery Author Type: Resident Type: H&P Filed: 08/19/2024 16:54 Note Text: Attestation signed by Buck Saavedra MD at 08/19/2024 4:54 PM Trauma Attending Note I have personally seen and evaluated this patient and participated in the rodriguez components of this encounter. I discussed the management of this case with the surgery resident team and independently confirmed the findings and plan of care as documented either attached or in their separate note from today. Any corrections or additional notes are made as needed. I evaluated the patient on August 01, 2024. Assessment and Plan: Tamica Anderson is a 84 year old female evaluated following a consult for ground level fall The patient was evaluated according to ATLS protocols. Injuries and diagnoses are notable for: Fall SDH L nasal bone fx Lip laceration Admit to ICU, Neurosurgery consult, SICU consult, Plastic Surgery consult, repair laceration Serial exams, interval CT scan, close monitoring, PT/OT/Speech therapy consults. Buck Saavedra MD Delayed entry [facility]: 08/01/2024 CONSULT INJURY DATE: Subjective 84 year old female with PMH of recurrent falls, CAD s/p PCI w/stents(2001) on ASA, CABG (2001) HTN, HLD, T2DM, CKD, possible Leg DVT who presents as trauma consult following a GLF on 07/31. Pt states that she fell after the wheel of her walker got caught, causing her to fall and strike her head on the floor. Pt denies LOC and states that she remembers the entire event. Pt was seen at OSH where CT imaging showed a SDH w/possible SAH prompting transfer to [facility] for further evaluation. Pt has no neuro deficit on exam. Pt takes baby ASA daily, no other anticoagulation. HPI/CHIEF COMPLAINT: R chest wall pain, SDH BRIEF DESCRIPTION OF INJURIES: Lip laceration, SDH LAST FLUIDS/MEAL: unknown CODE STATUS: Discussed with patient ALLERGIES No Known Allergies (Not in a hospital admission) DATE OF LAST TETANUS: unknown Immunization History Administered Date(s) Administered COVID-19 original vaccine, age 12+ yr, monovalent (PFIZER-BIONTECH - ALEXANDER TOP) 07/25/2021 COVID-19 original vaccine, age 12+ yr, monovalent (PFIZER-BIONTECH - PURPLE TOP) 05/19/2020 06/09/2020 12/13/2020 COVID-19 vaccine, age 12+ yr (MODERNA) 12/04/2023 COVID-19 vaccine, age 12+ yr (PFIZER-BIONTECH COMIRNATY) 01/11/2023 COVID-19 vaccine, age 12+ yr, bivalent (PFIZER-BIONTECH) 12/01/2021 No past medical history on file. No past surgical history on file. No family history on file. ROS: Is the patient having any pain? Yes LOCATION: R chest wall pain Constitutional: Negative Eye/Ear/Nose: Negative Respiratory: Negative Cardiovascular: Negative GI/Liver/Biliary: Negative Genitourinary: Negative Psychiatric: Negative Neurologic: Negative Musculoskeletal: Negative Integument: Negative Endocrine: Negative Heme/Lymph: Negative Objective PRIMARY SURVEY AIRWAY: Patent BREATHING: Breath sounds equal CIRCULATION: PT/DP 2+, Radials 2+, Femoral 2+ DISABILITY: Eye: 4=Spontaneous Verbal: 5=Oriented and Converses Motor: 6=Obeys Commands Total GCS: 15=4 Resp Rate: 10 to 29=4 Syst BP: > than 89=4 REVISED TRAUMA SCORE: 12 EXPOSE / ENVIRONMENT: Warm Blankets SECONDARY SURVEY VITALS: 08/01/24 0600 08/01/24 0630 08/01/24 0815 08/01/24 0826 BP: 166/73 159/66 192/83 Pulse: 73 73 78 Resp: 16 21 20 Temp: TempSrc: SpO2: (!) 92% 97% 95% Weight: NEURO: Alert AND Oriented x 3, GCS 15, Cranial Nerves II-XII grossly Intact, Moves All Extremities, Strength Symmetrical, No Sensory Deficits. HEENT: Head: Ecchymosis scattered around face and forehead, soft tissue swelling with overlying ecchymosis present on R forehead, midline lip with ~2 cm laceration otherwise no other No lacerations or abrasions, no bony step-offs, midface stable to palpation. Eyes: PERRL, conjunctiva/corneas without lesions, EOMI. Ears: Canals without blood or CSF drainage, TMs clear, external ears without lacerations. Nose: Septum midline, no crepitus with motion. Throat: Oral mucosa without lacerations, teeth in place, tongue without lacerations. NECK: No midline pain with palpation, no lacerations/wounds, trachea midline. RESPIRATORY: No abrasions or contusions, no crepitus, chest wall TTP over R side, equal excursion. Unlabored breathing on NC CARDIOVASCULAR: regular rate, good perfusion throughout ABDOMEN: Soft, non-distended, non-tender, no scars or lacerations, no rebound or guarding. No masses or organomegaly. PELVIC/PERINEAL: Pelvis stable to palpation, no blood noted at urethra meatus, gluteal contraction intact. BACK/SPINE: Thoraco (more content not included)... Normal [facility] Hematocrit Auto (Bld) [Volum e fraction]Ordered By: Cedric Verde on 08-01-2024 Hematocrit (Bld) [Volume fraction] 33.8 % Low 37-47 [facility] Hemoglobin measurementOrdere d By: Cedric Verde on 08-01-2024 Hemoglobin (Bld) [Mass/Vol] 11.2 g/dL Low 12.0-15.0 [facility] Immature granulocytes/100 WB C Auto (Bld)Ordered By: Cedric Verde on 08-01-2024 Immature granulocytes/100 WBC (Bld) 0.600 % 0.0-0.9 [facility] Comment on above: IG% - Immature Granu locytes (promyelocytes, myelocytes and metamyelocytes) > 1% indicates that a LEFT SHIFT is Present. International normalized rat io (INR) calculationOrdered By: Cedric Verde on 08-01-2024 INR Coag (Bld) [Relative time] 1.1 {INR} [facility] MCV (mean corpuscular volume ) determinationOrdered By: Cedric Verde on 08-01-2024 MCV (RBC) [Entitic vol] 89.2 fL 81-99 [facility] Mean corpuscular hemoglobin (MCH) determinationOrdered By: Cedric Verde on 08-01-2024 MCH (RBC) [Entitic mass] 29.6 pg 27.0-32.0 [facility] Mean corpuscular hemoglobin concentration (MCHC) determinationOrdered By: Cedric Verde on 08-01-2024 MCHC (RBC) [Mass/Vol] 33.1 g/dL 32-36 [facility] Mean platelet volume determi nationOrdered By: Cedric Verde on 08-01-2024 Platelet mean volume (Bld) [Entitic vol] 9.2 fL 6.2-12.0 [facility] Monocyte percentageOrdered B y: Cedric Verde on 08-01-2024 Monocytes/100 WBC (Bld) 9.5 % 0-10 [facility] Neutrophil percentageOrdered By: Cedric Verde on 08-01-2024 Neutrophils/100 WBC (Bld) 75.0 % High 47-70 [facility] Nucleated red blood cell per centageOrdered By: Cedric Verde on 08-01-2024 Nucleated RBC/100 WBC (Bld) [Ratio] 0 % 0-5 [facility] PT panel Coag (PPP)on 2024 INR Coag (PPP) [Relative time] 1.1 {INR} Normal 0.9-1.3 [facility] Comment on above: Order Comment: Speci men Type: BLOOD SPECIMENOrdering Facility: [facility] Address: [address] [place] [address] Result Comment: Justyna min K Antagonist (VKA) Therapeutic Range: INR 2 to 3 (Target INR of 2.5) Note: For patients treated with VKA drugs, such as warfarin, the [employer] 2012 Guideline recommends a therapeutic INR range of 2 to 3 (target INR of 2.5). This recommendation includes high-risk patients with antiphospholipid syndrome with previous arterial or venous thromboembolism, current-generation mechanical or bioprosthetic aortic heart valve replacement. Note: Patients with mechanical aortic valve replacement and additional risk factors for thromboembolic events (atrial fibrillation, previous thromboembolism, LV dysfunction, hypercoagulable conditions) or an older generation mechanical AVR (i.e., ball in-Cage) or any mechanical MVR should have a INR therapeutic range of 2.5 to 3.5 (target INR of 3). Janet ZAMORA, et al. Chest 2012, 141:7S-47S Ankush RA, et al. [facility] 2017, 70: 252-289 Performed By: #### 1 4979-9, 42762-0 ####[facility] LABORATORYCLIA [id number] [place] [address] [place] PT Coag (PPP) [Time] 11.7 s Normal 9.7-13.0 [facility] Comment on above: Order Comment: Speci men Type: BLOOD SPECIMENOrdering Facility: [facility] Address: [address] [place] [address] Performed By: #### 1 4979-9, 96949-1 ####[facility] LABORATORYCLIA [id number] [place] [address] [place] [facility] Partial Thromboplast Timeon 08-01-2024 aPTT Coag (Bld) [Time] 28.8 s Normal 24.1-36.2 [facility] Comment on above: Performed By: #### L 400.0001, L502.0250, L506.1001, L501.0900 #### [facility] Laboratory [address] [place], [place], [address] Pelvis 1 or 2 Viewson 2024 Pelvis 1 or [address] [facility] Imaging Services [address] [place], [place] [address] Pelvis 1 or 2 Views MR#: [id number] Acct: [id number] Name: TAMICA ANDERSON Rep #: [id number] : 1940 F 84 From: Dileep Britt MD PCP: Dr. Dominique Lang MD Status: PRE ER Study: Pelvis 1 or 2 Views Date of Exam: 08/01/24 Exam# [id number] Ordering Dr: Cedric Verde DO PROCEDURE: PELVIS 1 OR 2 VIEWS 08/01/2024 REASON FOR EXAM: FALL TECHNIQUE: 1 view(s) of the pelvis. COMPARISON: None available FINDINGS: Patient is rotated to the left. No fracture or dislocation identified. Right hip osteoarthrosis with medial joint space narrowing. Partially imaged left femoral gamma nail. Bilateral SI joints and pubic symphysis appear within limits. RAD/Pelvis 1 or 2 Views IMPRESSION: Patient is rotated to the left. No fracture or dislocation identified. Reading Location: [id number] CC: Dr. Dominique Lang MD; Cedric Verde DO Toll Gate Tender: Signed Normal [facility] Platelet countOrdered By: Do Verde on 08-01-2024 Platelets (Bld) [#/Vol] 157 10*3/uL 150-450 [facility] Potassium measurement (mass/ volume)Ordered By: Cedric Verde on 08-01-2024 Potassium (Unsp spec) [Mass/Vol] 3.7 mmol/L 3.3-5.1 [facility] Prothrombin Time w/INRon INR Coag (PPP) [Relative time] 1.1 {INR} Normal [facility] Comment on above: Performed By: #### L 400.0001, L502.0250, L506.1001, L501.0900 #### [facility] Laboratory [address] [place], [address] PT Coag (PPP) [Time] 14.3 s Normal 11.7-14.9 [facility] Comment on above: Performed By: #### L 400.0001, L502.0250, L506.1001, L501.0900 #### [facility] Laboratory [address] [place], [address] Prothrombin timeOrdered By: Cedric Verde on 08-01-2024 PT Coag (PPP) [Time] 14.3 s 11.7-14.9 [facility] RBC Auto (Bld) [#/Vol]Ordere d By: Cedric Verde on 08-01-2024 RBC (Bld) [#/Vol] 3.79 10*6/uL Low 4.2-5.4 [facility] Serum creatinine measurement (mass/volume)Ordered By: Cedric Verde on 08-01-2024 Creatinine [Mass/Vol] 0.87 mg/dL 0.70-1.20 [facility] Serum glucose measurement (m ass/volume)Ordered By: Cedric Verde on 08-01-2024 Glucose [Mass/Vol] 176 mg/dL High 70-99 [facility] Serum or plasma calcium chris urement (mass/volume)Ordered By: Cedric Verde on 08-01-2024 Calcium [Mass/Vol] 9.5 mg/dL 7.6-11.0 [facility] Serum or plasma urea nitroge n measurement (mass/volume)Ordered By: Cedric Verde on 08-01-2024 Urea nitrogen [Mass/Vol] 30 mg/dL High 4-19 [facility] Sinus/Facial Boneon 08-02-19 Sinus/Facial Bone [facility] Imaging Services [address] [place], [place] [id number] Sinus/Facial Bone MR#: [id number] Acct: [id number] Name: TAMICA ANDERSON Rep #: [id number] : 1940 F 84 From: Dileep Britt MD PCP: Dr. Dominique Lang MD Status: REG ER Study: Sinus/Facial Bone Date of Exam: 08/01/24 Exam# [id number] Ordering Dr: Cedric Verde DO PROCEDURE: SINUS/FACIAL BONE REASON FOR EXAM: FACIAL INJURY TECHNIQUE: CT of the paranasal sinuses without contrast. Coronal and Sagittal reconstruction series were provided. One or more dose reduction techniques were used (e.g., Automated exposure control, adjustment of the mA and/or kV according to patient size, use of iterative reconstruction technique). COMPARISON: None. FINDINGS: Mildly displaced left nasal fracture. Left nasal lobular high density soft tissue collection measuring 2.6 x 1.1 cm consistent with soft tissue hematoma with left facial, periorbital and preseptal soft tissue swelling. Globes appear intact without retro bulbar stranding. The paranasal sinuses and mastoids are clear. TMJs appear normally located. Mild leftward deviation of the nasal septum with left-sided nasal spur. Edentulous. Please refer to head CT report for description of intracranial hemorrhage. CT/Sinus/Facial Bone IMPRESSION: Mildly displaced left nasal fracture. Left nasal lobular high density soft tissue collection measuring 2.6 x 1.1 cm consistent with soft tissue hematoma with left facial, periorbital and preseptal soft tissue swelling. Globes appear intact without retro bulbar stranding. Reading Location: [facility] CC: Dr. Dominique Lang MD; Cedric Verde DO Toll Gate Tender: Signed Normal [facility] Sodium levelOrdered By: Jakob Verde on 08-01-2024 Sodium [Moles/Vol] 140 mmol/L 133-145 [facility] Spine Cervical without Contr ason 08-01-2024 Spine Cervical without Contras [facility] Imaging Services [address] [place] [address] Spine Cervical without Contras MR#: [id number] Acct: [id number] Name: TAMICA ANDERSON Rep #: [id number] : 1940 F 84 From: Dileep Britt MD PCP: Dr. Dominique Lang MD Status: REG ER Study: Spine Cervical without Contras Date of Exam: 0 08/01/24 Exam# [id number] Ordering Dr: Cedric Verde DO PROCEDURE: SPINE CERVICAL WITHOUT CONTRAS 08/01/2024 REASON FOR EXAM: HEAD INJURY TECHNIQUE: Cervical spine CT without contrast. Coronal and Sagittal reconstruction series were provided. One or more dose reduction techniques were used (e.g., Automated exposure control, adjustment of the mA and/or kV according to patient size, use of iterative reconstruction technique RADIATION DOSE SUMMARY: CTDlvol: 13.59 mGy DLP: 272.41 mGycm FINDINGS: The head is tilted to the left. No fracture or malalignment. No prevertebral soft tissue swelling. Multilevel spondylosis/discogenic change greatest at C5-6 and C6-7. Bilateral C3-4 facet degenerative changes. Bilateral carotid calcific plaque noted. Visualized apices appear clear. CT/Spine Cervical without Contras IMPRESSION: The head is tilted to the left. No fracture or malalignment. Multilevel spondylosis/discogenic change greatest at C5-6 and C6-7. Bilateral C3-4 facet degenerative changes. Reading Location: [id number] CC: Dr. Dominique Lang MD; Cedric Verde DO Toll Gate Tender: Signed Normal [facility] TYPE + SCREENon 08-01-2024 ABO B Normal [facility] Comment on above: Order Comment: Speci men Type: BLOOD SPECIMENOrdering Facility: [facility] Address: [address] [place] [address] Performed By: #### T SCR ####[facility] BLOOD BANKCLIA [id number] [address] Rh Nom (Bld) Positive Normal [facility] Comment on above: Order Comment: Speci men Type: BLOOD SPECIMENOrdering Facility: [facility] Address: [address] [place] [address] Performed By: #### T SCR ####[facility] BLOOD BANKCLIA [id number] [address] TYPE AND SCREEN EXPIRATION 08/04/2024 23:59 Normal [facility] Comment on above: Order Comment: Speci men Type: BLOOD SPECIMENOrdering Facility: [facility] Address: [address] [place] [address] Performed By: #### T SCR ####[facility] BLOOD BANKCLIA [id number] [address] White blood cell (WBC) count Ordered By: Cedric Verde on 08-01-2024 WBC (Bld) [#/Vol] 9.1 10*3/uL 4.4-11.0 [facility] aPTT PPPon 08-01-2024 aPTT Coag (PPP) [Time] 25.9 s Normal 23.0-32.4 [facility] Comment on above: Order Comment: Speci men Type: BLOOD SPECIMENOrdering Facility: [facility] Address: [address] [place] [address] Performed By: #### 1 4979-9, 04386-0 ####[facility] LABORATORYCLIA [id number] [place] [id number] [place] Echo Complete W/ Contraston 07-24-2024 Echo Complete W/ Contrast [facility] Cardiovascular Services [address] [place] [address] Echo Complete W/ Contrast 07/24/24 1200 MR#: [id number] Acct: [id number] Name: TAMICA ANDERSON Rep #: [id number] : 1940 84 From: Rohan Chavez MD Attending Dr: Nargis Prajapati NP-C Status: RE G CLI Ordering Dr: Nargis Prajapati NP MANAGER ENGINE-C Date: Location: [facility] Sex: F C Admitted: Reason For Study Reason For Study: SOB Procedure This was a 2D Doppler, Color Flow transthoracic echocardiogram. Patient scanned supine due to left shoulder impingement. Exam performed in department. Left Ventricle Normal LV size. Mild concentric left ventricular hypertrophy. The LV systolic function is normal. EF is 65 %. Stage 1 diastolic dysfunction. Right Ventricle Normal right ventricle. Atria The left and right atria are normal. Mitral Valve Moderate mitral annular calcification. Trivial mitral valve insufficiency. Tricuspid Valve Mild tricuspid valve insufficiency. Normal pulmonary artery pressure. Aortic Valve Trisinus/trileaflet aortic valve. Pulmonic Valve The pulmonic valve is not well visualized. Great Vessels Normal sized aortic root. Pericardium/Pleural No pericardial effusion. MMode/2D Measurements Calculations LVIDd: 4.1 cm IVSd: 1.3 cm Ao root diam: 3.1 cm LVIDs: 2.4 cm LVPWd: 1.3 cm RVDd: 3.1 cm FS: 41.7 % LAV(MOD-bp): 27.5 ml LA A4 area: 12.0 cm2 LA dimension(2D): 4.0 cm LAV(MOD-bp) Indexed: 18.5 ml/m2 LAV(MOD-sp2): 26.2 ml LAV(MOD-sp4): 25.7 ml TAPSE: 1.4 cm RA A4 area: 9.4 cm2 Time Measurements MV dec time: 0.29 sec Doppler Measurements Calculations MV E max [place]: 49.1 cm/sec Lat Peak E' [place]: 7.3 cm/sec Med Peak E' [place]: 6.1 cm/sec MV A max [place]: 88.3 cm/sec E/E' lat: 6.8 E/E' med: 8.1 MV E/A: 0.56 MV dec slope: 171.3 cm/sec2 Ao V2 max: 112.0 cm/sec LV V1 max: 86.8 cm/sec Ao max P.0 mmHg LV V1 max P.0 mmHg Ao V2 mean: 83.6 cm/sec LV V1 mean P.8 mmHg Ao mean P.1 mmHg LV V1 mean: 64.3 cm/sec Ao V2 VTI: 24.6 cm LV V1 VTI: 16.3 cm AV (velocity ratio): 0.66 PA V2 max: 114.6 cm/sec TR max am[place]: 237.8 cm/sec TR max P.6 mmHg ECHO/Echo Complete W/ Contrast Interpretation Summary Mild concentric left ventricular hypertrophy. The LV systolic function is normal. EF is 65 %. Stage 1 diastolic dysfunction. Moderate mitral annular calcification. Mild tricuspid valve insufficiency. Ordering Physician: Dominique Lang Referring Physician: Nargis Prajapati Performed By: Paris Christie RD 07/24/24 1309 Date Rohan Chavez MD CC: MANAGER ENGINE-C Nargis Prajapati; Dr. Dominique Lang MD Date Dictated: 07/24/24 1200 Date Transcribed: 07/24/24 1309 Toll Gate Tender: Signed Normal [facility] Echocardiogram study reportO rdered By: Rohan Chavez on 07-24-2024 Study report [facility] Cardiovascular Services [address] [place] [address] Echo Complete W/ Contrast 07/24/24 1200 MR#: [id number] Acct: [id number] Name: TAMICA ANDERSON Rep #:[id number] : 1940 84 From: Rohan Chavez MD Attending Dr: Nargis Prajapati NP-C Status: REG CLI Ordering Dr: Nargis Prajapati NP, NP-Zoila Date: 07/24/24 Location: [facility] Sex: F C Admitted: Reason For Study Reason For Study: SOB Procedure This was a 2D Doppler, Color Flow transthoracic echocardiogram. Patient scanned supine due to left shoulder impingement. Exam performed in department. Left Ventricle Normal LV size. Mild concentric left ventricular hypertrophy. The LV systolic function is normal. EF is 65 %. Stage 1 diastolic dysfunction. Right Ventricle Normal right ventricle. Atria The left and right atria are normal. Mitral Valve Moderate mitral annular calcification. Trivial mitral valve insufficiency. Tricuspid Valve Mild tricuspid valve insufficiency. Normal pulmonary artery pressure. Aortic Valve Trisinus/trileaflet aortic valve. Pulmonic Valve The pulmonic valve is not well visualized. Great Vessels Normal sized aortic root. Pericardium/Pleural No pericardial effusion. MMode/2D Measurements & Calculations LVIDd: 4.1 cm IVSd: 1.3 cm Ao root diam: 3.1 cm LVIDs: 2.4 cm LVPWd: 1.3 cm RVDd: 3.1 cm FS: 41.7 % LAV(MOD-bp): 27.5 ml LA A4 area: 12.0 cm2 LA dimension(2D): 4.0 cm LAV(MOD-bp) Indexed: 18.5 ml/m2 LAV(MOD-sp2): 26.2 ml LAV(MOD-sp4): 25.7 ml TAPSE: 1.4 cm RA A4 area: 9.4 cm2 Time Measurements MV dec time: 0.29 sec Doppler Measurements & Calculations MV E max [place]: 49.1 cm/sec Lat Peak E' [place]: 7.3 cm/sec Med Peak E' [place]: 6.1 cm/sec MV A max [place]: 88.3 cm/sec E/E' lat: 6.8 E/E' med: 8.1 MV E/A: 0.56 MV dec slope: 171.3 cm/sec2 Ao V2 max: 112.0 cm/sec LV V1 max: 86.8 cm/sec Ao max P.0 mmHg LV V1 max P.0 mmHg Ao V2 mean: 83.6 cm/sec LV V1 mean P.8 mmHg Ao mean P.1 mmHg LV V1 mean: 64.3 cm/sec Ao V2 VTI: 24.6 cm LV V1 VTI: 16.3 cm AV (velocity ratio): 0.66 PA V2 max: 114.6 cm/sec TR max am[place]: 237.8 cm/sec TR max P.6 mmHg ECHO/Echo Complete W/ Contrast Interpretation Summary Mild concentric left ventricular hypertrophy. The LV systolic function is normal. EF is 65 %. Stage 1 diastolic dysfunction. Moderate mitral annular calcification. Mild tricuspid valve insufficiency. Ordering Physician: Dominique Lang Referring Physician: Nargis Prajapati Performed By: Paris Christie RDCS 07/24/24 1309 Date _ Rohan Chavez MD CC: IDA Prajapati; Dr. Dominique Lang MD ~ Date Dictated: 07/24/24 1200 Date Transcribed: 07/24/24 1309 Toll Gate Tender: Signed [facility] Work Phone: Pulmonary Visit Reporton Pulmonary Visit Report [facility] Pulmonary Medicine [facility] [address] [place] [address] OFFICE VISIT Date of Service: 06/30/24 MR#: [id number] Acct: [id number] Name: TAMICA ANDERSON Rep #: [id number] : 1940 Provider: IDA Prajapati Age/Sex: 84/F Location: [facility] Status: Signed Assessment and Plan Assessment and Plan (1) Sleep apnea: Status: Chronic Qualifiers: Sleep apnea type: central sleep apnea associated with underlying condition Qualified Code(s): G47.37 - Central sleep apnea in conditions classified elsewhere Comment: AHI 21.2 Plan: Deteriorated. The patient was trialed on AutoPap suggested at her split-night study. Unfortunately, she did not feel would benefit from it. In fact, she states that she felt more rested when sleeping without the PAP device. Compliance report indicates that the patient is having central events with the use of AutoPap. In order to evaluate the patient for a safe ASV titration, she must first undergo an echocardiogram. She is agreeable with the echocardiogram. He will return to the office in 1 month to discuss test results. At that time, the patient will decide if she is agreeable with pursuing an ASV titration. In the meantime, I have recommended that the patient stop using the AutoPap as it was actually causing a higher AHI and she had without therapy. She conveys understanding and is agreeable with this plan. (2) Anxiety: Status: Chronic Plan: Complicates exam, plan, care and prognosis. The patient is apprehensive to complete a repeat titration study. We will first obtain an echocardiogram to evaluate if she is even eligible to receive a titration study for an ASV machine. She can then decide if she is willing to proceed with a retitration. Orders: Orders Echo Complete W/ Contrast Today R06.02 - Shortness of breath Plan Details Follow Up: 1 Month ([facility]) HPI 3 M FU Chief Complaint: For PAP compliance HPI Comments Details: This patient presents to the office today for follow-up of her obstructive sleep apnea. She is in a wheelchair and on room air. She is accompanied today by her grand-daughter. She has not recently been seen in the ED or urgent care for any respiratory illness. She has not required any antibiotics or prednisone for any breathing problems. She has shortness of breath on exertion only. She has an occasional cough. The cough is productive of clear-colored sputum. It is not frequent. She has occasional wheezing, but denies any chest tightness, chest pain or palpitations. She has not had any fever, chills or body aches. She is compliant with PAP therapy as frequently as she can be. Sometimes, after she has put the device on and falling asleep she wakes up to find that she has thrown it off. She denies any difficulty with dry mouth or morning headaches. She does nap. She is not having excessive nocturia. She reports that she actually feels more rested if she does not use the PAP machine. Compliance report shows 30% compliance with an average use of 5 hours and 27 minutes on nights being used. Currently being treated with AutoPap 5 to 12 cm water pressure typically being used at night to 11.2 cm of water. Residual AHI of 25.7 events per hour. It is also noted that greater than 12 events per hour are of central nature. Leaks do appear to be somewhat of an issue. Intake Vital Signs 04/01/24 08:47 06/30/24 08:14 Height 4 ft 9 in 4 ft 9 in Weight: 128 lb BMI 27.6 BP 138/83 H Blood Pressure Location Lt brachial Position Sitting Respiration 18 Pulse 78 Pulse Source Monitor Temp 97.4 F L Temperature Source Temporal Artery Pulse Oximetry (%) 95 Oxygen Delivery Method room air Intake Visit Reasons: 3 M FU Chief Complaint: right clavicle Remodeler Required: No DME Vendor: [employer] Accompanied by: Granddaughter Allergies adhesive tape Adverse Reaction (Verified 06/30/24 15:05) Unknown morphine Adverse Reaction (Verified 06/30/24 15:05) Vomiting Luyjyex-MKH-WnP Reductase Inhibitor (Yfbrlpt-Nmi-Irl Reductase Inhibitor) Adverse Reaction (Verified 06/30/24 15:05) Pain in joints Medications ???Medication ???Instructions ???Recorded ???Confirmed ???Type aspirin 81 mg tablet,delayed 81 mg PO DAILY heart 07/24/1806/16 History release (Adult Aspirin Regimen) furosemide 40 mg tablet 40 mg PO DAILY edema 05/18/2106/16 History potassium chloride 10 mEq 10 meq PO DAILY supplement 2 06/30/24 History tablet,extended release rosuvastatin 10 mg tablet (Crestor) 10 mg PO DAILY cholesterol 10/0606/30/24 History acetaminophen 500 mg capsule 500 mg PO Q6H PRN Pain 04/26/22 History fluticasone propionate 50 1 spray intranasal DAILY 04/26/22 06/30/24 History mcg/actuation nasal s (more content not included)... Normal [facility] Cardiology Visit Reporton Cardiology Visit Report [facility]. [address] [place] [address] OFFICE VISIT Date of Service: 06/16/24 MR#: [id number] Acct: [id number] Name: TAMICA ANDERSON Rep #: [id number] : 1940 Provider: LUZ Beltre Age/Sex: 84/F Location: [facility] Status: Signed HPI HPI History of Present Illness Details: TAMICA ANDERSON, is a 84 F who presents to the office today for a follow-up visit. She is a lady with a history of coronary artery disease status post coronary bypass surgery in 2001 with a left internal mammary artery to the left anterior descending artery and diagonal vessel. She has been doing well since then she did have her last catheterization in November 2014 with demonstrated preserved ejection fraction and she underwent angioplasty and stenting of the left circumflex and LAD left main. From a cardiac standpoint, patient is doing well. She does not have any chest discomfort/heaviness/t ightness. She does not have any worsening symptoms of shortness of breath. She does not have any orthopnea. She denies PND. She does have a chronic cough. She does not have any symptoms of congestive heart failure. She does not have any palpitations that she is aware of. She does not have any lightheadedness or dizziness. She does not have any near-syncope or syncope. She does not have any lower extremity edema. She does not have any symptoms of claudication. Intake Vital Signs 12/10/23 14:45 04/01/24 08:47 06/16/24 13:11 Height 4 ft 9 in 4 ft 9 in 4 ft 9 in Weight: 132 lb 128 lb BMI 28.5 27.6 BP 130/86 H 143/71 H Blood Pressure Location Rt brachial Lt brachial Position Sitting Sitting Respiration 20 H 16 Pulse 85 74 Pulse Source Monitor NIBP Temp 97.3 F L Temperature Source Temporal Artery Pulse Oximetry (%) 94 Oxygen Delivery Method room air Intake Visit Reasons: 6 M Remodeler Required: No Is patient in pain?: No Allergies adhesive tape Adverse Reaction (Verified 06/16/24 13:18) Unknown morphine Adverse Reaction (Verified 06/16/24 13:18) Vomiting Lalsxnh-RXC-VmD Reductase Inhibitor (Botdeap-Jzh-Dyv Reductase Inhibitor) Adverse Reaction (Verified 06/16/24 13:18) Pain in joints Medications ???Medication ???Instructions ???Recorded ???Confirmed ???Type aspirin 81 mg tablet,delayed 81 mg PO DAILY heart 07/24/1804/11 History release (Adult Aspirin Regimen) furosemide 40 mg tablet 40 mg PO DAILY edema 05/18/2104/11 History potassium chloride 10 mEq 10 meq PO DAILY supplement 2 06/16/24 History tablet,extended release rosuvastatin 10 mg tablet (Crestor) 10 mg PO DAILY cholesterol 10/0606/16/24 History acetaminophen 500 mg capsule 500 mg PO Q6H PRN Pain 04/26/22 History fluticasone propionate 50 1 spray intranasal DAILY 04/26/22 06/16/24 History mcg/actuation nasal spray,suspension nystatin 100,000 unit/gram topical 1 applic topical TID 04/26/22 History ointment alprazolam 0.25 mg tablet 0.25 mg PO BID PRN anxiety 4 06/16/24 History calcium carbonate 600 mg PO DAILY 06/10/23 06/16/24 History buspirone 10 mg tablet 10 mg PO TID 06/16/24 06/16/24 His tory gabapentin 100 mg capsule 100 mg PO QDAY 06/16/24 06/16/24 H istory metformin 500 mg tablet 1,000 mg PO QDAY diabetes 06/16/24 06/16/24 History metronidazole 0.75 % lotion 1 applic topical BID 06/16/2404/11 History sertraline 100 mg tablet 100 mg PO QDAY 06/16/24 06/16/24 H istory triamcinolone acetonide 0.5 % topical BID 06/16/24 06/16/24 Hist ory topical ointment Ejection fraction %: 60 Have you fallen in the past year?: Yes (Fell forward when bending to pick something u) [facility] Medical History Impingement of left shoulder Intertriginous candidiasis Incontinence Physical debility CPAP (continuous positive airway pressure) dependence Sleep apnea Fracture of right wrist with routine healing Obesity Right bundle branch block (RBBB) KATTY (obstructive sleep apnea) Pancreatitis Diabetes mellitus GERD (gastroesophageal reflux disease) HLD (hyperlipidemia) Essential (primary) hypertension Atherosclerotic heart disease of [place] coronary artery without angina pectoris Surgical History Fracture of left hip requiring operative repair Status post cardiac surgery Hx of hysterectomy Hx of cholecystectomy Hx of appendectomy History of coronary artery stent placement (11/17/14) 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) Family History Mother Hypertension Other CAD (coronary artery disease) Social History household mem (more content not included)... Normal [facility] Gastric Emptying Studyon Gastric Emptying Study [facility] Imaging Services [address] [place] [address] Gastric Emptying Study MR#: [id number] Acct: [id number] Name: TAMICA ANDERSON Rep #: [id number] : 1940 F 84 From: Matt lipscomb MD PCP: Dr. Dominique Lang MD Status: REG CLI Study: Gastric Emptying Study Date of Exam: 06/01/24 Exam# [id number] Ordering Dr: Dominique Lang MD PROCEDURE: GASTRIC EMPTYING STUDY REASON FOR EXAM: EARLY SATIETY TECHNIQUE: The patient ingested a mixture of 1.1 mCi of technetium labeled sulfur colloid with oatmeal. A gastric emptying study was obtained. RADIOPHARMACEUTICAL: 1.1 mCi of technetium labeled sulfur colloid. COMPARISON: None. FINDINGS: The study was carried out for 60 minutes. At 60 minutes, 69% of the radiopharmaceutical exited the stomach. This is a normal study. NM/Gastric Emptying Study IMPRESSION: Normal gastric emptying scan. Reading Location: [place] [address] CC: Dr. Dominique Lang MD Toll Gate Tender: Signed Normal [facility] Vitamin D,25 Hydroxyon 05-07 Vitamin D 25-OH 98.2 ng/mL Normal [facility] Comment on above: Order Comment: Urine , Random Result Comment: Justyna min D 25(OH) Status Range Deficiency <20 ng/mL (50nmol/L) Insufficiency 20 - 30 ng/mL (50 - 75 nmol/L) Sufficiency 30 - 100 ng/mL (75 - 250 nmol/L) Toxicity >100 ng/mL (>250 nmol/L) Performed By: #### L 400.0001, L502.0250, L506.1001, L501.0900 #### [facility] Laboratory [address], [address] Vitamin B12on 05-06-2024 Cobalamin (Vitamin B12) [Mass/Vol] 579 pg/mL Normal 211-911 [facility] Comment on above: Order Comment: Urine , Random Performed By: #### L 400.0001, L502.0250, L506.1001, L501.0900 #### [facility] [address] [place], [address] [id number] DOrdered By: Saranya Lang on 05-05-2024 Vitamin D 25-Hydroxy 98.2 ng/mL [facility] Comment on above: Vitamin D 25(OH) Sta tus Range Deficiency <20 ng/mL (50nmol/L) Insufficiency 20 - 30 ng/mL (50 - 75 nmol/L) Sufficiency 30 - 100 ng/mL (75 - 250 nmol/L) Toxicity >100 ng/mL (>250 nmol/L) Absolute lymphocyte countOrd ered By: Dominique Lang on 05-05-2024 Lymphocytes Auto (Unsp spec) [#/Vol] 1.59 10*3/uL 0.83-4.51 [facility] Absolute neutrophil countOrd ered By: Dominique Lang on 05-05-2024 Neutrophils (Bld) [#/Vol] 5.5 10*3/uL 2.0-7.7 [facility] Albumin to globulin ratioOrd ered By: Dominique Lang on 05-05-2024 Albumin/Globulin [Mass ratio] 0.9 {ratio} 0.9-2.4 [facility] Automated lymphocyte count a s percentage of total leukocytesOrdered By: Dominique Lang on 05-05-2024 Lymphocytes/100 WBC Auto (Unsp spec) 20.4 % 19-41 [facility] Basophil percentageOrdered B y: Dominique Lang on 05-05-2024 Basophils/100 WBC (Bld) 0.3 % 0-1 [facility] Bilirubin Test strip Ql (U)O rdered By: Dominique Lang on 05-05-2024 Bilirubin Ql (U) Negative Negative [facility] Bilirubin, totalOrdered By: Dominique Lang on 05-05-2024 Bilirubin [Mass/Vol] 0.40 mg/dL 0.20-1.00 [facility] Comment on above: For patients on eltr ombopag therapy, use of Dimension [place] TBIL is not recommended. Blood urea nitrogen (BUN)/cr eatinine ratioOrdered By: Dominique Lang on 05-05-2024 Urea nitrogen/Creatinine [Mass ratio] 25.2 mg/mg High 10-20 [facility] CBC W/Diff, Automatedon 04-18 Absolute Lymph 1.59 X10 3/uL Normal 0.83-4.51 [facility] Comment on above: Order Comment: Order Date: 09/16/24 Order Info: [id number] - CMP Order Info: [id number] - LIPID Order Info: [id number] - PHOS Performed By: #### L 400.0001, L502.0250, L506.1001, L501.0900 #### [facility] [address] [place], [address] Absolute Neut 5.5 X10 3/uL Normal 2.0-7.7 [facility] Comment on above: Order Comment: Order Date: 09/16/24 Order Info: [id number] - CMP Order Info: [id number] - LIPID Order Info: [id number] - PHOS Performed By: #### L 400.0001, L502.0250, L506.1001, L501.0900 #### [facility] [address] [place], [address] Basophils/100 WBC (Bld) 0.3 % Normal 0-1 [facility] Comment on above: Order Comment: Order Date: 09/16/24 Order Info: [id number] - CMP Order Info: [id number] - LIPID Order Info: [id number] - PHOS Performed By: #### L 400.0001, L502.0250, L506.1001, L501.0900 #### [facility] [address] [place], [address] Eosinophils/100 WBC (Bld) 1.9 % Normal 0-5 [facility] Comment on above: Order Comment: Order Date: 09/16/24 Order Info: [id number] - CMP Order Info: [id number] - LIPID Order Info: [id number] - PHOS Performed By: #### L 400.0001, L502.0250, L506.1001, L501.0900 #### [facility] [address] [place], [address] Erythrocyte distribution width (RBC) [Ratio] 13.8 % Normal 11.6-14.6 [facility] Comment on above: Order Comment: Order Date: 09/16/24 Order Info: [id number] - CMP Order Info: [id number] - LIPID Order Info: [id number] - PHOS Performed By: #### L 400.0001, L502.0250, L506.1001, L501.0900 #### [facility] [address] [place], [place], [address] Hematocrit (Bld) [Volume fraction] 42.5 % Normal 37-47 [facility] Comment on above: Order Comment: Order Date: 09/16/24 Order Info: [id number] - CMP Order Info: [id number] - LIPID Order Info: [id number] - PHOS Performed By: #### L 400.0001, L502.0250, L506.1001, L501.0900 #### [facility] [address] [place], [address] Hemoglobin (Bld) [Mass/Vol] 13.2 g/dL Normal 12.0-15.0 [facility] Comment on above: Order Comment: Order Date: 09/16/24 Order Info: [id number] - CMP Order Info: [id number] - LIPID Order Info: [id number] - PHOS Performed By: #### L 400.0001, L502.0250, L506.1001, L501.0900 #### [facility] [address] [place], [address] IG% 0.100 Normal 0.0-0.9 [facility] Comment on above: Order Comment: Order Date: 09/16/24 Order Info: [id number] - CMP Order Info: [id number] - LIPID Order Info: [id number] - PHOS Result Comment: IG% - Immature Granulocytes (promyelocytes, myelocytes and metamyelocytes) > 1% indicates that a LEFT SHIFT is Present. Performed By: #### L 400.0001, L502.0250, L506.1001, L501.0900 #### [facility] [address] [place], [address] Lymphocytes/100 WBC (Bld) 20.4 % Normal 19-41 [facility] Comment on above: Order Comment: Order Date: 09/16/24 Order Info: [id number] - CMP Order Info: - LIPID Order Info: [id number] - PHOS Performed By: #### L 400.0001, L502.0250, L506.1001, L501.0900 #### [facility] [address] [place], [address] MCH (RBC) [Entitic mass] 27.9 pg Normal 27.0-32.0 [facility] Comment on above: Order Comment: Order Date: 09/16/24 Order Info: [id number] - CMP Order Info: - LIPID Order Info: [id number] - PHOS Performed By: #### L 400.0001, L502.0250, L506.1001, L501.0900 #### [facility] [address] [place], [address] MCHC (RBC) [Mass/Vol] 31.1 g/dL Low 32-36 [facility] Comment on above: Order Comment: Order Date: 09/16/24 Order Info: [id number] - CMP Order Info: - LIPID Order Info: [id number] - PHOS Performed By: #### L 400.0001, L502.0250, L506.1001, L501.0900 #### [facility] [address] [place], [address] MCV (RBC) [Entitic vol] 89.9 fL Normal 81-99 [facility] Comment on above: Order Comment: Order Date: 09/16/24 Order Info: [id number]- - CMP Order Info: [id number] - LIPID Order Info: [id number] - PHOS Performed By: #### L 400.0001, L502.0250, L506.1001, L501.0900 #### [facility] [address] [place], [address] Monocytes/100 WBC (Bld) 7.2 % Normal 0-10 [facility] Comment on above: Order Comment: Order Date: 09/16/24 Order Info: [id number]- - CMP Order Info: [id number] - LIPID Order Info: [id number] - PHOS Performed By: #### L 400.0001, L502.0250, L506.1001, L501.0900 #### [facility] [address] [place], [address] Neutrophils/100 WBC (Bld) 70.1 % High 47-70 [facility] Comment on above: Order Comment: Order Date: 09/16/24 Order Info: [id number]- - CMP Order Info: [id number] - LIPID Order Info: [id number] - PHOS Performed By: #### L 400.0001, L502.0250, L506.1001, L501.0900 #### [facility] [address] [place], [address] Nucleated RBC (Bld) [#/Vol] 0 10*3/uL Normal 0-5 [facility] Comment on above: Order Comment: Order Date: 09/16/24 Order Info: [id number] - CMP Order Info: [id number] - LIPID Order Info: [id number] - PHOS Performed By: #### L 400.0001, L502.0250, L506.1001, L501.0900 #### [facility] [address] [place], [address] Platelet mean volume (Bld) [Entitic vol] 10.1 fL Normal 6.2-12.0 [facility] Comment on above: Order Comment: Order Date: 09/16/24 Order Info: [id number]- - CMP Order Info: - LIPID Order Info: [id number] - PHOS Performed By: #### L 400.0001, L502.0250, L506.1001, L501.0900 #### [facility] [address] [place], [address] Platelets (Bld) [#/Vol] 221 10*3/uL Normal 150-450 [facility] Comment on above: Order Comment: Order Date: 09/16/24 Order Info: [id number] - CMP Order Info: - LIPID Order Info: [id number] - PHOS Performed By: #### L 400.0001, L502.0250, L506.1001, L501.0900 #### [facility] [address] [place], [address] RBC (Bld) [#/Vol] 4.73 10*6/uL Normal 4.2-5.4 [facility] Comment on above: Order Comment: Order Date: 09/16/24 Order Info: 07 - CMP Order Info: [id number] - LIPID Order Info: [id number] - PHOS Performed By: #### L 400.0001, L502.0250, L506.1001, L501.0900 #### [facility] [address] [place], [address] RDW SD 45.1 fl High 35.1-43.9 [facility] Comment on above: Order Comment: Order Date: 09/16/24 Order Info: [id number]- - CMP Order Info: [id number] - LIPID Order Info: [id number] - PHOS Performed By: #### L 400.0001, L502.0250, L506.1001, L501.0900 #### [facility] [address] [place], [place], [address] WBC (Bld) [#/Vol] 7.8 10*3/uL Normal 4.4-11.0 [facility] Comment on above: Order Comment: Order Date: 09/16/24 Order Info: [id number] - CMP Order Info: [id number] - LIPID Order Info: [id number] - PHOS Performed By: #### L 400.0001, L502.0250, L506.1001, L501.0900 #### [facility] [address] [place], [address] Carbon dioxide measurementOr dered By: Dominique Lang on 05-05-2024 CO2 [Moles/Vol] 30.0 mmol/L 21.0-32.0 [facility] Chloride measurementOrdered By: Dominique Lang on 05-05-2024 Chloride [Moles/Vol] 100 mmol/L 98-107 [facility] Coarse Granular Casts LM Ql (Urine sed)Ordered By: Dominique Lang on 05-05-2024 Urine Coarse Granular Casts 0-5 SEEN /lpf 0-5 /lpf [facility] Comprehensive Metabolic Prof ilon 05-05-2024 Albumin [Mass/Vol] 3.7 g/dL Normal 3.2-5.0 [facility] Comment on above: Order Comment: Order Date: 09/16/24 Order Info: [id number] - CMP Order Info: [id number] - LIPID Order Info: [id number] - PHOS Performed By: #### L 400.0001, L502.0250, L506.1001, L501.0900 #### [facility] [address] [place], [place], [address] Albumin/Globulin [Mass ratio] 0.9 {ratio} Normal 0.9-2.4 [facility] Comment on above: Order Comment: Order Date: 09/16/24 Order Info: 07 - CMP Order Info: [id number] - LIPID Order Info: [id number] - PHOS Performed By: #### L 400.0001, L502.0250, L506.1001, L501.0900 #### [facility] [address] [place], [address] ALK P 47 U/L Normal 45-117 [facility] Comment on above: Order Comment: Order Date: 09/16/24 Order Info: [id number] - CMP Order Info: [id number] - LIPID Order Info: [id number] - PHOS Performed By: #### L 400.0001, L502.0250, L506.1001, L501.0900 #### [facility] [address] [place], [address] ALT [Catalytic activity/Vol] 23 U/L Normal 13-56 [facility] Comment on above: Order Comment: Order Date: 09/16/24 Order Info: [id number] - CMP Order Info: - LIPID Order Info: [id number] - PHOS Performed By: #### L 400.0001, L502.0250, L506.1001, L501.0900 #### [facility] [address] [place], [address] AST [Catalytic activity/Vol] 29 U/L Normal 15-37 [facility] Comment on above: Order Comment: Order Date: 09/16/24 Order Info: 07- - CMP Order Info: [id number] - LIPID Order Info: [id number] - PHOS Performed By: #### L 400.0001, L502.0250, L506.1001, L501.0900 #### [facility] [address] [place], [address] Bilirubin [Mass/Vol] 0.40 mg/dL Normal 0.20-1.00 [facility] Comment on above: Order Comment: Order Date: 09/16/24 Order Info: [id number] - CMP Order Info: [id number] - LIPID Order Info: [id number] - PHOS Result Comment: For patients on eltrombopag therapy, use of Dimension [place] TBIL is not recommended. Performed By: #### L 400.0001, L502.0250, L506.1001, L501.0900 #### [facility] [address] [place], [address] BUN/CRE 25.2 RATIO High 10-20 [facility] Comment on above: Order Comment: Order Date: 09/16/24 Order Info: [id number] - CMP Order Info: [id number] - LIPID Order Info: [id number]- - PHOS Performed By: #### L 400.0001, L502.0250, L506.1001, L501.0900 #### [facility] [address] [place], [address] CA,Total 10.3 mg/dL High 8.5-10.1 [facility] Comment on above: Order Comment: Order Date: 09/16/24 Order Info: [id number]- - CMP Order Info: [id number] - LIPID Order Info: [id number] - PHOS Performed By: #### L 400.0001, L502.0250, L506.1001, L501.0900 #### [facility] [address] [place], [address] Chloride [Moles/Vol] 100 mmol/L Normal 98-107 [facility] Comment on above: Order Comment: Order Date: 09/16/24 Order Info: [id number]- - CMP Order Info: [id number] - LIPID Order Info: [id number] - PHOS Performed By: #### L 400.0001, L502.0250, L506.1001, L501.0900 #### [facility] [address] [place], [address] CO2 [Moles/Vol] 30.0 mmol/L Normal 21.0-32.0 [facility] Comment on above: Order Comment: Order Date: 09/16/24 Order Info: [id number] - CMP Order Info: [id number] - LIPID Order Info: [id number] - PHOS Performed By: #### L 400.0001, L502.0250, L506.1001, L501.0900 #### [facility] [address] [place], [address] Creatinine [Mass/Vol] 0.91 mg/dL Normal 0.55-1.02 [facility] Comment on above: Order Comment: Order Date: 09/16/24 Order Info: [id number] - CMP Order Info: [id number] - LIPID Order Info: [id number] - PHOS Result Comment: The validity of the calculated GFR GFRAA in patients over 70 years has not been determined. Clinical correlation is essential. Performed By: #### L 400.0001, L502.0250, L506.1001, L501.0900 #### [facility] [address] [place], [address] EST GFR - AA 76 mL/min Normal >60 [facility] Comment on above: Order Comment: Order Date: 09/16/24 Order Info: [id number] - CMP Order Info: [id number] - LIPID Order Info: [id number] - PHOS Result Comment: Afri can [place] GFR Calc Performed By: #### L 400.0001, L502.0250, L506.1001, L501.0900 #### [facility] [address] [place], [address] GAP 6 Normal 5-15 [facility] Comment on above: Order Comment: Order Date: 09/16/24 Order Info: [id number] - CMP Order Info: [id number] - LIPID Order Info: [id number] - PHOS Performed By: #### L 400.0001, L502.0250, L506.1001, L501.0900 #### [facility] [address] [place], [address] GFR/1.73 sq M.predicted among non-blacks MDRD (S/P/Bld) [Vol rate/Area] 63 mL/min/{1.73_m2} Normal >60 [facility] Comment on above: Order Comment: Order Date: 09/16/24 Order Info: [id number] - CMP Order Info: [id number] - LIPID Order Info: [id number]- - PHOS Result Comment: Non- GFR Calc Performed By: #### L 400.0001, L502.0250, L506.1001, L501.0900 #### [facility] [address] [place], [address] Globulin (S) [Mass/Vol] 4.0 g/dL Normal 2.2-4.2 [facility] Comment on above: Order Comment: Order Date: 09/16/24 Order Info: [id number] - CMP Order Info: [id number] - LIPID Order Info: [id number] - PHOS Performed By: #### L 400.0001, L502.0250, L506.1001, L501.0900 #### [facility] [address] [place], [address] Glucose [Mass/Vol] 86 mg/dL Normal 74-106 [facility] Comment on above: Order Comment: Order Date: 09/16/24 Order Info: [id number] - CMP Order Info: [id number] - LIPID Order Info: [id number]- - PHOS Performed By: #### L 400.0001, L502.0250, L506.1001, L501.0900 #### [facility] [address] [place], [address] Potassium [Moles/Vol] 4.1 mmol/L Normal 3.5-5.1 [facility] Comment on above: Order Comment: Order Date: 09/16/24 Order Info: [id number] - CMP Order Info: [id number] - LIPID Order Info: [id number] - PHOS Performed By: #### L 400.0001, L502.0250, L506.1001, L501.0900 #### [facility] [address] [place], [address] Sodium [Moles/Vol] 136 mmol/L Normal 136-145 [facility] Comment on above: Order Comment: Order Date: 09/16/24 Order Info: [id number] - CMP Order Info: [id number] - LIPID Order Info: [id number] - PHOS Performed By: #### L 400.0001, L502.0250, L506.1001, L501.0900 #### [facility] [address] [place], [place], [address] T PROT 7.7 g/dL Normal 6.4-8.2 [facility] Comment on above: Order Comment: Order Date: 09/16/24 Order Info: [id number] - CMP Order Info: [id number] - LIPID Order Info: [id number] - PHOS Performed By: #### L 400.0001, L502.0250, L506.1001, L501.0900 #### [facility] [address] [place], [place], [address] Urea nitrogen [Mass/Vol] 23 mg/dL High 10-02 [facility] Comment on above: Order Comment: Order Date: 09/16/24 Order Info: [id number] - CMP Order Info: [id number] - LIPID Order Info: [id number] - PHOS Performed By: #### L 400.0001, L502.0250, L506.1001, L501.0900 #### [facility] [address] [place], [place], [address] Eosinophil percentageOrdered By: Dominique Lang on 05-05-2024 Eosinophils/100 WBC (Bld) 1.9 % 0-5 [facility] Epithelial cells.squamous LM Ql (Urine sed)Ordered By: Dominique Lang on 05-05-2024 Epithelial cells.squamous LM.HPF (Urine sed) [#/Area] 0 /[HPF] 5-10 [facility] Erythrocyte distribution wid th ratioOrdered By: Dominique Lang on 05-05-2024 Erythrocyte distribution width (RBC) [Ratio] 13.8 % 11.6-14.6 [facility] Erythrocyte distribution wid th standard deviationOrdered By: Dominique Lang on 05-05-2024 Erythrocyte distribution width (RBC) [Entitic vol] 45.1 fL High 35.1-43.9 [facility] Erythrocyte distribution width (RBC) [Ratio] 45.1 fl High 35.1-43.9 [facility] Estimated glomerular filtrat ion rate (GFR) AmericanOrdered By: Dominique Lang on 05-05-2024 Estimated GFR (MDRD) Amer 76 mL/min >60 [facility] Comment on above: GFR Calc Glomerular filtration rate ( GFR) estimationOrdered By: Dominique Lang on 05-05-2024 Estimated GFR (MDRD) Non-Af Amer 63 mL/min >60 [facility] Comment on above: Non- GFR Calc GFR/1.73 sq M.predicted among non-blacks MDRD (S/P/Bld) [Vol rate/Area] 63 mL/min/{1.73_m2} >60 [facility] Comment on above: Non- GFR Calc Glucose Ql (U)Ordered By: Liliana Lang on 05-05-2024 Urine Glucose (UA) Normal mg/dl Normal [facility] Glucose measurementOrdered B y: Dominique Lang on 05-05-2024 Glucose [Mass/Vol] 86 mg/dL 74-106 [facility] Hematocrit Auto (Bld) [Volum e fraction]Ordered By: Dominique Lang on 05-05-2024 Hematocrit (Bld) [Volume fraction] 42.5 % 37-47 [facility] Hemoglobin A1con 05-05-2024 HbA1c (Bld) [Mass fraction] 6.7 % High 3.8-5.6 [facility] Comment on above: Order Comment: Order Date: 09/16/24 Order Info: [id number] - CMP Order Info: [id number] - LIPID Order Info: [id number] - PHOS Result Comment: Norm al < 5.7 % Prediabetic 5.7 - 6.4 % Diabetic >or= 6.5 % Please note range changes. Performed By: #### L 400.0001, L502.0250, L506.1001, L501.0900 #### [facility] [address], [address] Hemoglobin A1c percentageOrd ered By: Dominique Lang on 05-05-2024 HbA1c (Bld) [Mass fraction] 6.7 % High 3.8-5.6 [facility] Comment on above: Normal < 5.7 % Predi abetic 5.7 - 6.4 % Diabetic >or= 6.5 % Please note range changes. Hemoglobin measurementOrdere d By: Dominique Lang on 05-05-2024 Hemoglobin (Bld) [Mass/Vol] 13.2 g/dL 12.0-15.0 [facility] High density lipoprotein (HD L) measurementOrdered By: Dominique Lang on 05-05-2024 Cholesterol in HDL [Mass/Vol] 55 mg/dL >40 [facility] Comment on above: The drugs N-Acetylcy steine and Metamizole may falsely depress this assay. Reference Range HDL <40 mg/dL Low HDL Cholesterol HDL >or= 60 mg/dL High HDL Cholesterol Hyaline casts LM.LPF (Urine sed) [#/Area]Ordered By: Dominique Lang on 05-05-2024 Hyaline casts (Urine sed) [#/Area] 0 /[LPF] 0-5 [facility] Hyaline casts LM Ql (Urine sed) 0-5 SEEN /lpf 0-5 [facility] Immature granulocytes/100 WB C Auto (Bld)Ordered By: Dominique Lang on 05-05-2024 Immature granulocytes/100 WBC (Bld) 0.100 % 0.0-0.9 [facility] Comment on above: IG% - Immature Granu locytes (promyelocytes, myelocytes and metamyelocytes) > 1% indicates that a LEFT SHIFT is Present. Intact parathyroid hormone ( iPTH) measurementOrdered By: Dominique Lang on 05-05-2024 Parathyroid Hormone (Intact) 14.8 pg/mL Low 18.4-80.1 [facility] Ketones Test strip Ql (U)Ord ered By: Dominique Lang on 05-05-2024 Ketones Ql (U) Negative Negative [facility] - Chemistry and C hemistry - challengeOrdered By: Dominique Lang on 05-05-2024 AST [Catalytic activity/Vol] 29 U/L 15-37 [facility] Lipid Profileon 05-05-2024 Cholesterol [Mass/Vol] 131 mg/dL Normal 200 [facility] Comment on above: Order Comment: Urine , Random Result Comment: <200 mg/dL Desirable 200-240 mg/dL Borderline >240 mg/dL High Risk Performed By: #### L 400.0001, L502.0250, L506.1001, L501.0900 #### [facility] [address] [place], [address] Cholesterol in HDL [Mass/Vol] 55 mg/dL Normal [facility] Comment on above: Order Comment: Urine , Random Result Comment: The drugs N-Acetylcysteine and Metamizole may falsely depress this assay. Reference Range HDL <40 mg/dL Low HDL Cholesterol HDL >or= 60 mg/dL High HDL Cholesterol Performed By: #### L 400.0001, L502.0250, L506.1001, L501.0900 #### [facility] [address] [place], [address] Cholesterol in LDL [Mass/Vol] 34 mg/dL Normal 0-130 [facility] Comment on above: Order Comment: Urine , Random Performed By: #### L 400.0001, L502.0250, L506.1001, L501.0900 #### [facility] [address] [place], [address] Cholesterol in VLDL [Mass/Vol] 42 mg/dL High 5-40 [facility] Comment on above: Order Comment: Urine , Random Performed By: #### L 400.0001, L502.0250, L506.1001, L501.0900 #### [facility] [address] [place], [address] Triglyceride [Mass/Vol] 210 mg/dL High [facility] Comment on above: Order Comment: Urine , Random Result Comment: The drugs N-Acetylcysteine and Metamizole may falsely depress this assay. Serum Triglycerides Reference Interval Normal <150 mg/dL Borderline high 150 - 199 mg/dL High 200 - 499 mg/dL Very High > or = 500 mg/dL Performed By: #### L 400.0001, L502.0250, L506.1001, L501.0900 #### [facility] [address] [place], [address] Low density lipoprotein (LDL ) cholesterol measurementOrdered By: Dominique Lang on 05-05-2024 Cholesterol in LDL [Mass/Vol] 34 mg/dL 0-130 [facility] Lymphocytes Auto (Unsp spec) [#/Vol]Ordered By: Dominique Lang on 05-05-2024 Lymphocytes (Bld) [#/Vol] 1.59 10*3/uL 0.83-4.51 [facility] Lymphocytes/100 WBC Auto (Un sp spec)Ordered By: Dominique Lang on 05-05-2024 Lymphocytes/100 WBC (Bld) 20.4 % 19-41 [facility] MCV (mean corpuscular volume ) determinationOrdered By: Dominique Lang on 05-05-2024 MCV (RBC) [Entitic vol] 89.9 fL 81-99 [facility] Mean corpuscular hemoglobin (MCH) determinationOrdered By: Dominique Lang on 05-05-2024 MCH (RBC) [Entitic mass] 27.9 pg 27.0-32.0 [facility] Mean corpuscular hemoglobin concentration (MCHC) determinationOrdered By: Dominique Lang on 05-05-2024 MCHC (RBC) [Mass/Vol] 31.1 g/dL Low 32-36 [facility] Mean platelet volume determi nationOrdered By: Dominique Lang on 05-05-2024 Platelet mean volume (Bld) [Entitic vol] 10.1 fL 6.2-12.0 [facility] Microalbumin,Random Urineon 05-05-2024 MICROALBUMIN,UR 453.0 mg/L Normal NO RANGE EST. [facility] Comment on above: Order Comment: Urine , Random Performed By: #### L 400.0001, L502.0250, L506.1001, L501.0900 #### [facility] [address] [place], [address] Microscopic analysis of urin e for red blood cells (RBC)Ordered By: Dominique Lang on 05-05-2024 Microscopic analysis of urine for red blood cells (RBC) 0-5 SEEN /hpf 0-5 [facility] Urine RBC 0-5 SEEN /hpf 0-5 [facility] Monocyte percentageOrdered B y: Dominique Lang on 05-05-2024 Monocytes/100 WBC (Bld) 7.2 % 0-10 [facility] Mucus LM Ql (Urine sed)Order ed By: Dominique Lang on 05-05-2024 Mucus Ql (Urine sed) 0 SEEN /hpf [facility] Neutrophil percentageOrdered By: Dominique Lang on 05-05-2024 Neutrophils/100 WBC (Bld) 70.1 % High 47-70 [facility] Nitrite Test strip Ql (U)Ord ered By: Dominique Lang on 05-05-2024 Nitrite Ql (U) Negative Negative [facility] Nucleated red blood cell per centageOrdered By: Dominique Lang on 05-05-2024 Nucleated RBC/100 WBC (Bld) [Ratio] 0 % 0-5 [facility] PTHINon 05-05-2024 PTH 14.8 pg/mL Low 18.4-80.1 [facility] Comment on above: Order Comment: Order Date: 09/16/24 Order Info: [id number] - CMP Order Info: [id number] - LIPID Order Info: [id number] - PHOS Performed By: #### L 400.0001, L502.0250, L506.1001, L501.0900 #### [facility] [address] [place], [address] Platelet countOrdered By: Liliana Lang on 05-05-2024 Platelets (Bld) [#/Vol] 221 10*3/uL 150-450 [facility] Potassium measurementOrdered By: Dominique Lang on 05-05-2024 Potassium [Moles/Vol] 4.1 mmol/L 3.5-5.1 [facility] Protein Test strip Ql (U)Ord ered By: Dominique Lang on 05-05-2024 Protein Ql (U) 100 mg/dl High Negative [facility] Protein+Creatinine Ratio,Uri neon 05-05-2024 PROT:CRE RATIO 488 mg/g CRE High 0-200 [facility] Comment on above: Order Comment: Urine , Random Performed By: #### L 400.0001, L502.0250, L506.1001, L501.0900 #### [facility] [address] [place], [address] UR CREAT 126.00 mg/dL Normal NO RANGE EST. [facility] Comment on above: Order Comment: Urine , Random Performed By: #### L 400.0001, L502.0250, L506.1001, L501.0900 #### [facility] [address] [place], [address] Protein/Creatinine (U) [Mass ratio]Ordered By: Dominique Lang on 05-05-2024 Urine Protein/Creatinine Ratio 488 mg/g CRE High 0-200 [facility] RBC Auto (Bld) [#/Vol]Ordere d By: Dominique Lang on 05-05-2024 RBC (Bld) [#/Vol] 4.73 10*6/uL 4.2-5.4 [facility] Random urine microalbumin me asurementOrdered By: Dominique Lang on 05-05-2024 Urine Random Microalbumin 453.0 mg/L NO RANGE EST. [facility] Random urine protein measure mentOrdered By: Dominique Lang on 05-05-2024 Protein (U) [Mass/Vol] 61.5 mg/dL High <11.9 [facility] Comment on above: Order Comment: Urine , Random Performed By: #### L 400.0001, L502.0250, L506.1001, L501.0900 #### [facility] [address] [place], [address] Serum anion gap measurementO rdered By: Dominique Lang on 05-05-2024 Anion gap [Moles/Vol] 6 mmol/L 5-15 [facility] Serum globulin measurementOr dered By: Dominique Lang on 05-05-2024 Globulin (S) [Mass/Vol] 4.0 g/dL 2.2-4.2 [facility] Serum or plasma alanine rico otransferase (ALT) measurementOrdered By: Dominique Lang on 05-05-2024 ALT [Catalytic activity/Vol] 23 U/L 13-56 [facility] Serum or plasma albumin chris urement (mass/volume)Ordered By: Dominique Lang on 05-05-2024 Albumin [Mass/Vol] 3.7 g/dL 3.2-5.0 [facility] Serum or plasma alkaline mohamud sphatase measurementOrdered By: Dominique Lang on 05-05-2024 ALP [Catalytic activity/Vol] 47 U/L 45-117 [facility] Serum or plasma calcium chris urement (mass/volume)Ordered By: Dominique Lang on 05-05-2024 Calcium [Mass/Vol] 10.3 mg/dL High 8.5-10.1 [facility] Serum or plasma cholesterol measurement (mass/volume)Ordered By: Dominique Lang on 05-05-2024 Cholesterol [Mass/Vol] 131 mg/dL <200 [facility] Comment on above: <200 mg/dL Desirable 200-240 mg/dL Borderline >240 mg/dL High Risk Serum or plasma creatinine m easurement (mass/volume)Ordered By: Dominique Lang on 05-05-2024 Creatinine [Mass/Vol] 0.91 mg/dL 0.55-1.02 [facility] Comment on above: The validity of the calculated GFR & GFRAA in patients over 70 years has not been determined. Clinical correlation is essential. Serum or plasma urea nitroge n measurement (mass/volume)Ordered By: Dominique Lang on 05-05-2024 Urea nitrogen [Mass/Vol] 23 mg/dL High 7-18 [facility] Sodium levelOrdered By: Dominique Lang on 05-05-2024 Sodium [Moles/Vol] 136 mmol/L 136-145 [facility] Squamous epithelial cells de tection in urine sediment by light microscopyOrdered By: Dominique Lang on 05-05-2024 Epithelial cells.squamous LM Ql (Urine sed) 0-5 SEEN /hpf 5-10 [facility] Total proteinOrdered By: Aren Lang on 05-05-2024 Protein [Mass/Vol] 7.7 g/dL 6.4-8.2 [facility] Triglycerides measurementOrd ered By: Dominique Lang on 05-05-2024 Triglyceride [Mass/Vol] 210 mg/dL High <199 [facility] Comment on above: The drugs N-Acetylcy steine and Metamizole may falsely depress this assay.Serum Triglycerides Reference Interval Normal <150 mg/dL Borderline high 150 - 199 mg/dL High 200 - 499 mg/dL Very High > or = 500 mg/dL Urinalysis, Completeon 05-05 BACTERIA 1+ /hpf Normal None Seen [facility] Comment on above: Order Comment: Urine , Random Performed By: #### L 400.0001, L502.0250, L506.1001, L501.0900 #### [facility] [address] [place], [address] CAST,COARSE GR 0-5 SEEN Normal 0-5 /lpf [facility] Comment on above: Order Comment: Urine , Random Performed By: #### L 400.0001, L502.0250, L506.1001, L501.0900 #### [facility] [address] [place], [address] CAST,HYALINE 0-5 SEEN Normal 0-5 [facility] Comment on above: Order Comment: Urine , Random Performed By: #### L 400.0001, L502.0250, L506.1001, L501.0900 #### [facility] [address] [place], [address] EPI,SQUAMOUS 0-5 SEEN Normal 5-10 [facility] Comment on above: Order Comment: Urine , Random Performed By: #### L 400.0001, L502.0250, L506.1001, L501.0900 #### [facility] [address] [place], [address] RBC 0-5 SEEN Normal 0-5 [facility] Comment on above: Order Comment: Urine , Random Performed By: #### L 400.0001, L502.0250, L506.1001, L501.0900 #### [facility] [address] [place], [address] WBC 5-10 SEEN Normal 0-5 [facility] Comment on above: Order Comment: Urine , Random Performed By: #### L 400.0001, L502.0250, L506.1001, L501.0900 #### [facility] [address] [place], [address] Mucus Ql (Urine sed) 0 SEEN Normal [facility] Comment on above: Order Comment: Urine , Random Performed By: #### L 400.0001, L502.0250, L506.1001, L501.0900 #### [facility] [address] [place], [address] Urine blood detectionOrdered By: Dominique Lang on 05-05-2024 Urine Occult Blood 10 /ul High Negative [facility] Urine clarityOrdered By: Aren Lang on 05-05-2024 Clarity (U) Clear Clear [facility] Urine coarse granular cast d etectionOrdered By: Dominique Lang on 05-05-2024 Coarse Granular Casts LM Ql (Urine sed) 0-5 SEEN /lpf 0-5 /lpf [facility] Urine color determinationOrd ered By: Dominique Lang on 05-05-2024 Color (U) Yellow Yellow [facility] Urine creatinine measurement (mass/volume)Ordered By: Dominique Lang on 05-05-2024 Creatinine (U) [Mass/Vol] 126.00 mg/dL NO RANGE EST. [facility] Urine glucose detectionOrder ed By: Dominique Lang on 05-05-2024 Glucose Ql (U) Normal mg/dl Normal [facility] Urine leukocyte esterase det ection by dipstickOrdered By: Dominique Lang on 05-05-2024 Leukocyte esterase Test strip Ql (U) 25 /ul High Negative [facility] Urine pHOrdered By: Dominique harrison on 05-05-2024 pH (U) 5.0 [pH] 5.0 - 8.0 [facility] Urine protein/creatinine mas s ratioOrdered By: Dominique Lang on 05-05-2024 Protein/Creatinine (U) [Mass ratio] 488 mg/g CRE High 0-200 [facility] Urine sediment bacteria coun t by microscopy (number/high power field)Ordered By: Dominique Lang on 05-05-2024 Bacteria LM.HPF (Urine sed) [#/Area] 1 /[HPF] None Seen [facility] Urine specific gravity measu rementOrdered By: Dominique Lang on 05-05-2024 Specific gravity (U) [Rel density] 1.015 1.002-1.030 [facility] Urine urobilinogen measureme ntOrdered By: Dominique Lang on 05-05-2024 Urobilinogen Ql (U) Normal mg/dl Normal [facility] Urobilinogen Ql (U)Ordered B y: Dominique Lang on 05-05-2024 Urine Urobilinogen Normal mg/dl Normal [facility] Very low density lipoprotein (VLDL) cholesterol measurementOrdered By: Dominique Lang on 05-05-2024 Very low density lipoprotein (VLDL) cholesterol measurement 42 mg/dL High 5-40 [facility] VLDL Cholesterol 42 mg/dL High 5-40 [facility] Vitamin B12 measurementOrder ed By: Dominique Lang on 05-05-2024 Cobalamin (Vitamin B12) [Mass/Vol] 579 pg/mL 211-911 [facility] White blood cell (WBC) count Ordered By: Dominique Lang on 05-05-2024 WBC (Bld) [#/Vol] 7.8 10*3/uL 4.4-11.0 [facility] White blood cell countOrdere d By: Dominique Lang on 05-05-2024 Urine WBC 5-10 SEEN /hpf 0-5 [facility] White blood cell count 5-10 SEEN /hpf 0-5 [facility] Pulmonary Visit Reporton Pulmonary Visit Report [facility] [address] [place] [address] OFFICE VISIT Date of Service: 04/01/24 MR#: [id number] Acct: [id number] Name: TAMICA ANDERSON Rep #: [id number] : 1940 Provider: IDA Prajapati Age/Sex: 83/F Location: [facility].PMW Status: Signed Assessment and Plan Assessment and Plan (1) KATTY (obstructive sleep apnea): Status: Chronic Plan: Deteriorated. The patient has not recently been compliant with PAP therapy due to skin irritation from her current interface. Unfortunately, the [employer] company switched out the patient's interface. It is unclear to me if this occurred due to discontinuation of the previously prescribed interface. The patient is agreeable to a visit to PAP education to be evaluated for an alternative interface. Return to the office in 3 months to evaluate compliance report. No indication for titration study at this time. (2) Cough: Status: Acute Qualifiers: Cough type: acute Qualified Code(s): R05.1 - Acute cough Plan: Likely secondary to viral illness. Slowly improving. I do not believe any intervention or medication changes are necessary. Orders: Orders Self Mgmnt Educ Training Today G47.33 - Obstructive sleep apnea (adult) (pediatric) Plan Details Follow Up: 3 Months ([facility]) HPI 6 M FU Chief Complaint: skin irritation HPI Comments Details: This patient presents to the office today for follow-up of her obstructive sleep apnea. She is in a wheelchair and on room air. She is accompanied today by her grand-daughter. She has not recently been seen in the ED or urgent care for any respiratory illness. She has not required any antibiotics or prednisone for any breathing problems. She does report that her family brought her a cold. Symptoms are stable and slowly improving. She has shortness of breath on exertion only. She has an occasional cough. The cough is productive of clear-colored sputum. It is not frequent. She has occasional wheezing, but denies any chest tightness, chest pain or palpitations. She has not had any fever, chills or body aches. She is having difficulty with skin irritation to the creases of her cheeks. She shows me the most recent interface provided by her DME company as well as the interface that she was using previously. She reports that the old mask did not cause skin irritation. Compliance report not available as the patient is no longer compliant with PAP therapy. Intake Vital Signs 10/04/23 08:23 12/10/23 14:45 04/01/24 08:47 Height 4 ft 9 in 4 ft 9 in 4 ft 9 in Weight: 132 lb BMI 28.5 BP 130/86 H Blood Pressure Location Rt brachial Position Sitting Respiration 20 H Pulse 85 Pulse Source Monitor Temp 97.3 F L Temperature Source Temporal Artery Pulse Oximetry (%) 94 Oxygen Delivery Method room air Intake Visit Reasons: 6 M FU Remodeler Required: No DME Vendor: cpap- dont use Accompanied by: Daughter Is patient in pain?: No Allergies adhesive tape Adverse Reaction (Verified 04/01/24 14:44) Unknown morphine Adverse Reaction (Verified 04/01/24 14:44) Vomiting Iclzntu-CIF-FdV Reductase Inhibitor (Mwkjckf-Lmd-Ksr Reductase Inhibitor) Adverse Reaction (Verified 04/01/24 14:44) Pain in joints Medications ???Medication ???Instructions ???Recorded ???Confirmed ???Type metformin 500 mg tablet 1,000 mg PO BIDCM diabetes 07/22/17 04/01/24 History aspirin 81 mg tablet,delayed 81 mg PO DAILY heart 07/24/18 04/01/24 History release (Adult Aspirin Regimen) furosemide 40 mg tablet 40 mg PO DAILY edema 05/18/21 04/01/24 History potassium chloride 10 mEq 10 meq PO DAILY supplement 05/22/21 04/01/24 History tablet,extended release rosuvastatin 10 mg tablet (Crestor) 10 mg PO DAILY cholesterol 05/22/21 04/01/24 History pantoprazole 40 mg tablet,delayed 40 mg PO DAILY 30 days #30 tabs 06/08/21 04/01/24 Rx release acetaminophen 500 mg capsule 500 mg PO Q6H PRN Pain 04/26/22 04/01/24 History cholecalciferol (vitamin D3) 25 75 mcg PO DAILY 04/26/22 04/01/24 History mcg (1,000 unit) capsule fluticasone propionate 50 1 spray intranasal DAILY 04/26/22 04/01/24 History mcg/actuation nasal spray,suspension nystatin 100,000 unit/gram topical 1 applic topical TID 04/26/22 04/01/24 History ointment sertraline 50 mg tablet (Zoloft) 50 mg PO DAILY 04/26/22 04/01/24 History alprazolam 0.25 mg tablet 0.25 mg PO BID PRN anxiety 05/30/23 04/01/24 History calcium carbonate 600 mg PO DAILY 06/10/23 04/01/24 History buspirone 7.5 mg tablet 7.5 mg PO TID 04/01/24 04/01/24 History gabapentin 100 mg capsule 100 mg PO TID 04/01/24 04/01/24 History Have you fallen in the past year?: Yes [facility] Medical History (more content not included)... Normal [facility] Clavicleon 01-15-2024 Clavicle [facility] [address] [place] [address] Clavicle MR#: [id number] Acct: [id number] Name: TAMICA ANDERSON Rep #: [id number] : 1940 F 83 From: Minerva Maynard MD PCP: Dr. Dominique Lang MD Status: DEP AMB Study: Clavicle Date of Exam: 01/15/24 Exam# [id number] Ordering Dr: Tonny Cuadra DO [id number] STUDY: X-RAY - RIGHT CLAVICLE REASON FOR EXAM: Female, 83 years old. Fracture. TECHNIQUE: 2 views of the right clavicle. COMPARISON: Right clavicle radiographs dated 12/11/2023. FINDINGS: There is a healing comminuted impacted fracture of the midshaft of the right clavicle. Thre is stable moderate acromioclavicular arthrosis. Normal visualized sternoclavicular articulation. Normal visualized pulmonary apex. RAD/Clavicle IMPRESSION: Healing comminuted impacted fracture of the midshaft of the right clavicle. Stable moderate acromioclavicular arthrosis. Electronically Signed: Minerva Maynard MD at 15:32 EDT Reading Location ID and State: [facility] / [place] , Service support , CC: Dr. Dominique Lang MD; Dr. Tonny Cuadra DO Toll Gate Tender: Signed Normal [facility] Orthopedic Visit Reporton Orthopedic Visit Report [facility] [address] [place] [address] [address] [place] [address] OFFICE VISIT Date of Service: 01/15/24 MR#: [id number] Acct: [id number] Name: TAMICA ANDERSON Rep #: [id number] : 1940 Provider: Dr. Tonny powell DO Age/Sex: 83/F Location: [email or web address] Status: Signed Intake Vital Signs 12/10/23 14:45 Height 4 ft 9 in Intake Visit Reasons: RIGHT CLAVICLE Chief Complaint: right clavicle Allergies adhesive tape Adverse Reaction (Verified 01/15/24 14:29) Unknown morphine Adverse Reaction (Verified 01/15/24 14:29) Vomiting Ajoesar-MBA-DeB Reductase Inhibitor (Lrghxrn-Ghp-Ofh Reductase Inhibitor) Adverse Reaction (Verified 01/15/24 14:29) Pain in joints Medications ???Medication ???Instructions ???Recorded ???Confirmed ???Type metformin 500 mg tablet 1,000 mg PO BIDCM diabetes 07/22/17 01/15/24 History aspirin 81 mg tablet,delayed 81 mg PO DAILY heart 07/24/18 01/15/24 History release (Adult Aspirin Regimen) furosemide 40 mg tablet 40 mg PO DAILY edema 05/18/21 01/15/24 History potassium chloride 10 mEq 10 meq PO DAILY supplement 05/22/21 01/15/24 History tablet,extended release rosuvastatin 10 mg tablet (Crestor) 10 mg PO DAILY cholesterol 05/22/21 01/15/24 History pantoprazole 40 mg tablet,delayed 40 mg PO DAILY 30 days #30 tabs 06/08/21 01/15/24 Rx release acetaminophen 500 mg capsule 500 mg PO Q6H PRN Pain 04/26/22 01/15/24 History buspirone 10 mg tablet 10 mg PO TID mood 04/26/22 01/15/24 History cholecalciferol (vitamin D3) 25 75 mcg PO DAILY 04/26/22 01/15/24 History mcg (1,000 unit) capsule fluticasone propionate 50 1 spray intranasal DAILY 04/26/22 01/15/24 History mcg/actuation nasal spray,suspension nystatin 100,000 unit/gram topical 1 applic topical TID 04/26/22 01/15/24 History ointment sertraline 50 mg tablet (Zoloft) 50 mg PO DAILY 04/26/22 01/15/24 History alprazolam 0.25 mg tablet 0.25 mg PO BID PRN anxiety 05/30/23 01/15/24 History calcium carbonate 600 mg PO DAILY 06/10/23 01/15/24 History Have you fallen in the past year?: No PFSH Medical History Impingement of left shoulder Intertriginous candidiasis Incontinence Physical debility CPAP (continuous positive airway pressure) dependence Sleep apnea Fracture of right wrist with routine healing Obesity Right bundle branch block (RBBB) KATTY (obstructive sleep apnea) Pancreatitis Diabetes mellitus GERD (gastroesophageal reflux disease) HLD (hyperlipidemia) Essential (primary) hypertension Atherosclerotic heart disease of [place] coronary artery without angina pectoris Surgical History Fracture of left hip requiring operative repair Status post cardiac surgery Hx of hysterectomy Hx of cholecystectomy Hx of appendectomy History of coronary artery stent placement (11/17/14) 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) Family History Mother Hypertension Other CAD (coronary artery disease) Social History household members: spouse Smoking Status: Never smoker alcohol intake: never substance use type: does not use caffeine: Yes Type: carbonated beverages what type of physical activity do you participate in: none seatbelt use: always do you feel safe at home: Yes HPI RIGHT CLAVICLE Chief Complaint: right clavicle fracture Details: This documentation accurately reflects the service provided and the decisions made by , Dr. Tonny Cuadra, DO 01/15/24 0845. Part of today???s visit was documented by [ ], acting as scribe. TAMICA ANDERSON is a 83 year old F 01/15/2024: here today to follow up on her right clavicle fracture. Pt. denies pain in her right clavicle and shoulder areas. She has been doing well and is showering and washing her hair by herself. 12/11/2023 visit: 83 year old F here today for ER follow-up 12/06/2023 right clavicle fracture. She states she was going to sampler pickup a couple of little branches and fell into a pine tree. She does have some abrasions on the shoulder from the fall. She also has some swelling and bruising on her right calf that Dr. Kuhn would like addressed. She does have some burning pain where the bruise is. She did see Dr. Tejada yesterday and he increased her lasix and recommended she wrap both of her legs with shalini wraps but she hasn't been able to tolerate it. She states that she is having pain right along the clavicle and is worse when she changes positions. She is taking Tylenol arthritis for the pain. Denies numbness, tingling or other associated symptoms. X-rays were reviewed. There is no obvious fracture, dislocation, or lucency noted. Spoke wit (more content not included)... Normal [facility] L5000.0015on 01-08-2024 PTHIN 27 pg/mL Normal 15-65 [facility] Comment on above: Performed By: #### L 400.0001, L502.0250, L506.1001, L501.0900 #### [facility] Laboratory [address] [place], [address] L3300.0940on 01-07-2024 VIT D,25 HYDROX 75.6 ng/mL Normal 30.0-100.0 [facility] Comment on above: Result Comment: Justyna min D deficiency has been defined by the [place] of [employer] and an Endocrine Society practice guideline as a level of serum 25-OH vitamin D less than 20 ng/mL (1,2). The Endocrine Society went on to further define vitamin D insufficiency as a level between 21 and 29 ng/mL (2). 1. IOM ([place] of [employer]). 2010. Dietary reference intakes for calcium and D. [place]: The National Academies Press. 2. Milla MF, Melanie EATON, Tyrese FOWLER, et al. Evaluation, treatment, and prevention of vitamin D deficiency: an Endocrine Society clinical practice guideline. JCEM. 2010; 96(7):1911-30. Performed By: #### L 400.0001, L502.0250, L506.1001, L501.0900 #### [facility] [address] [place], [address] L5000.0012on 01-07-2024 Cobalamin (Vitamin B12) [Mass/Vol] 885 pg/mL Normal 232-1245 [facility] Comment on above: Result Comment: Perf ormed at: - [facility] [address] [id number] Legal Billing Clerk: Hernandez Bo PhD, Phone: [phone] Performed By: #### L 400.0001, L502.0250, L506.1001, L501.0900 #### [facility] [address] [place], [address] CBC W/Diff, Automatedon 12-16 Absolute Lymph 1.28 X10 3/uL Normal 0.83-4.51 [facility] Comment on above: Performed By: #### L 400.0001, L502.0250, L506.1001, L501.0900 #### [facility] [address] [place], [address] Absolute Neut 5.4 X10 3/uL Normal 2.0-7.7 [facility] Comment on above: Performed By: #### L 400.0001, L502.0250, L506.1001, L501.0900 #### [facility] [address] [place], [address] Basophils/100 WBC (Bld) 0.3 % Normal 0-1 [facility] Comment on above: Performed By: #### L 400.0001, L502.0250, L506.1001, L501.0900 #### [facility] [address] [place], [address] Eosinophils/100 WBC (Bld) 3.1 % Normal 0-5 [facility] Comment on above: Performed By: #### L 400.0001, L502.0250, L506.1001, L501.0900 #### [facility] [address] [place], [address] Erythrocyte distribution width (RBC) [Ratio] 14.7 % High 11.6-14.6 [facility] Comment on above: Performed By: #### L 400.0001, L502.0250, L506.1001, L501.0900 #### [facility] [address] [place], [address] Hematocrit (Bld) [Volume fraction] 37.9 % Normal 37-47 [facility] Comment on above: Performed By: #### L 400.0001, L502.0250, L506.1001, L501.0900 #### [facility] [address] [place], [address] Hemoglobin (Bld) [Mass/Vol] 11.9 g/dL Low 12.0-15.0 [facility] Comment on above: Performed By: #### L 400.0001, L502.0250, L506.1001, L501.0900 #### [facility] [address] [place], [address] IG% 0.100 Normal 0.0-0.9 [facility] Comment on above: Result Comment: IG% - Immature Granulocytes (promyelocytes, myelocytes and metamyelocytes) > 1% indicates that a LEFT SHIFT is Present. Performed By: #### L 400.0001, L502.0250, L506.1001, L501.0900 #### [facility] [address] [place], [address] Lymphocytes/100 WBC (Bld) 16.6 % Low 19-41 [facility] Comment on above: Performed By: #### L 400.0001, L502.0250, L506.1001, L501.0900 #### [facility] [address] [place], [address] MCH (RBC) [Entitic mass] 27.4 pg Normal 27.0-32.0 [facility] Comment on above: Performed By: #### L 400.0001, L502.0250, L506.1001, L501.0900 #### [facility] [address] [place], [address] MCHC (RBC) [Mass/Vol] 31.4 g/dL Low 32-36 [facility] Comment on above: Performed By: #### L 400.0001, L502.0250, L506.1001, L501.0900 #### [facility] [address] [place], [address] MCV (RBC) [Entitic vol] 87.3 fL Normal 81-99 [facility] Comment on above: Performed By: #### L 400.0001, L502.0250, L506.1001, L501.0900 #### [facility] [address] [place], [address] Monocytes/100 WBC (Bld) 9.9 % Normal 0-10 [facility] Comment on above: Performed By: #### L 400.0001, L502.0250, L506.1001, L501.0900 #### [facility] [address] [place], [address] Neutrophils/100 WBC (Bld) 70.0 % Normal 47-70 [facility] Comment on above: Performed By: #### L 400.0001, L502.0250, L506.1001, L501.0900 #### [facility] [address] [place], [address] Nucleated RBC (Bld) [#/Vol] 0 10*3/uL Normal 0-5 [facility] Comment on above: Performed By: #### L 400.0001, L502.0250, L506.1001, L501.0900 #### [facility] [address] [place], [address] Platelet mean volume (Bld) [Entitic vol] 9.7 fL Normal 6.2-12.0 [facility] Comment on above: Performed By: #### L 400.0001, L502.0250, L506.1001, L501.0900 #### [facility] [address] [place], [address] Platelets (Bld) [#/Vol] 220 10*3/uL Normal 150-450 [facility] Comment on above: Performed By: #### L 400.0001, L502.0250, L506.1001, L501.0900 #### [facility] [address] [place], [address] RBC (Bld) [#/Vol] 4.34 10*6/uL Normal 4.2-5.4 [facility] Comment on above: Performed By: #### L 400.0001, L502.0250, L506.1001, L501.0900 #### [facility] [address] [place], [address] RDW SD 47.5 fl High 35.1-43.9 [facility] Comment on above: Performed By: #### L 400.0001, L502.0250, L506.1001, L501.0900 #### [facility] [address] [place], [address] WBC (Bld) [#/Vol] 7.7 10*3/uL Normal 4.4-11.0 [facility] Comment on above: Performed By: #### L 400.0001, L502.0250, L506.1001, L501.0900 #### [facility] [address] [place], [address] Comprehensive Metabolic Prof ilon 01-01-2024 Albumin [Mass/Vol] 3.3 g/dL Normal 3.2-5.0 [facility] Comment on above: Order Comment: Order Date: 09/16/24 Order Info: [id number] - MIALB Performed By: #### L 400.0001, L502.0250, L506.1001, L501.0900 #### [facility] [address] [place], [address] Albumin/Globulin [Mass ratio] 0.8 {ratio} Low 0.9-2.4 [facility] Comment on above: Order Comment: Order Date: 09/16/24 Order Info: [id number] - MIALB Performed By: #### L 400.0001, L502.0250, L506.1001, L501.0900 #### [facility] [address] [place], [address] ALK P 137 U/L High 45-117 [facility] Comment on above: Order Comment: Order Date: 09/16/24 Order Info: [id number] - MIALB Performed By: #### L 400.0001, L502.0250, L506.1001, L501.0900 #### [facility] [address] [place], [address] ALT [Catalytic activity/Vol] 25 U/L Normal 13-56 [facility] Comment on above: Order Comment: Order Date: 09/16/24 Order Info: [id number] - MIALB Performed By: #### L 400.0001, L502.0250, L506.1001, L501.0900 #### [facility] [address] [place], [address] AST [Catalytic activity/Vol] 36 U/L Normal 15-37 [facility] Comment on above: Order Comment: Order Date: 09/16/24 Order Info: [id number] - MIALB Performed By: #### L 400.0001, L502.0250, L506.1001, L501.0900 #### [facility] [address] [place], [address] Bilirubin [Mass/Vol] 0.30 mg/dL Normal 0.20-1.00 [facility] Comment on above: Order Comment: Order Date: 09/16/24 Order Info: [id number] - MIALB Result Comment: For patients on eltrombopag therapy, use of Dimension [place] TBIL is not recommended. Performed By: #### L 400.0001, L502.0250, L506.1001, L501.0900 #### [facility] [address] [place], [address] BUN/CRE 36.2 RATIO High 10-20 [facility] Comment on above: Order Comment: Order Date: 09/16/24 Order Info: [id number] - MIALB Performed By: #### L 400.0001, L502.0250, L506.1001, L501.0900 #### [facility] [address] [place], [address] CA,Total 9.6 mg/dL Normal 8.5-10.1 [facility] Comment on above: Order Comment: Order Date: 09/16/24 Order Info: [id number] - MIALB Performed By: #### L 400.0001, L502.0250, L506.1001, L501.0900 #### [facility] [address] [place], [address] Chloride [Moles/Vol] 101 mmol/L Normal 98-107 [facility] Comment on above: Order Comment: Order Date: 09/16/24 Order Info: [id number] - MIALB Performed By: #### L 400.0001, L502.0250, L506.1001, L501.0900 #### [facility] [address] [place], [address] CO2 [Moles/Vol] 29.0 mmol/L Normal 21.0-32.0 [facility] Comment on above: Order Comment: Order Date: 09/16/24 Order Info: [id number] - MIALB Performed By: #### L 400.0001, L502.0250, L506.1001, L501.0900 #### [facility] [address] [place], [address] Creatinine [Mass/Vol] 1.05 mg/dL High 0.55-1.02 [facility] Comment on above: Order Comment: Order Date: 09/16/24 Order Info: [id number] - MIALB Result Comment: The validity of the calculated GFR GFRAA in patients over 70 years has not been determined. Clinical correlation is essential. Performed By: #### L 400.0001, L502.0250, L506.1001, L501.0900 #### [facility] [address] [place], [address] EST GFR - AA 64 mL/min Normal >60 [facility] Comment on above: Order Comment: Order Date: 09/16/24 Order Info: [id number] - MIALB Result Comment: Afri can [place] GFR Calc Performed By: #### L 400.0001, L502.0250, L506.1001, L501.0900 #### [facility] [address] [place], [address] GAP 7 Normal 5-15 [facility] Comment on above: Order Comment: Order Date: 09/16/24 Order Info: [id number] - MIALB Performed By: #### L 400.0001, L502.0250, L506.1001, L501.0900 #### [facility] [address] [place], [address] GFR/1.73 sq M.predicted among non-blacks MDRD (S/P/Bld) [Vol rate/Area] 53 mL/min/{1.73_m2} Low >60 [facility] Comment on above: Order Comment: Order Date: 09/16/24 Order Info: [id number] - MIALB Result Comment: Non- GFR Calc Performed By: #### L 400.0001, L502.0250, L506.1001, L501.0900 #### [facility] [address] [place], [address] Globulin (S) [Mass/Vol] 4.1 g/dL Normal 2.2-4.2 [facility] Comment on above: Order Comment: Order Date: 09/16/24 Order Info: [id number] - MIALB Performed By: #### L 400.0001, L502.0250, L506.1001, L501.0900 #### [facility] [address] [place], [address] Glucose [Mass/Vol] 269 mg/dL High 74-106 [facility] Comment on above: Order Comment: Order Date: 09/16/24 Order Info: [id number] - MIALB Result Comment: Gluc ose result greater than or equal to 200 mg/dL suggests DIABETES MELLITUS per A.D.A. criteria. Performed By: #### L 400.0001, L502.0250, L506.1001, L501.0900 #### [facility] [address] [place], [address] Potassium [Moles/Vol] 4.0 mmol/L Normal 3.5-5.1 [facility] Comment on above: Order Comment: Order Date: 09/16/24 Order Info: [id number] - MIALB Performed By: #### L 400.0001, L502.0250, L506.1001, L501.0900 #### [facility] [address] [place], [address] Sodium [Moles/Vol] 137 mmol/L Normal 136-145 [facility] Comment on above: Order Comment: Order Date: 09/16/24 Order Info: [id number] - MIALB Performed By: #### L 400.0001, L502.0250, L506.1001, L501.0900 #### [facility] [address] [place], [address] T PROT 7.4 g/dL Normal 6.4-8.2 [facility] Comment on above: Order Comment: Order Date: 09/16/24 Order Info: [id number] - MIALB Performed By: #### L 400.0001, L502.0250, L506.1001, L501.0900 #### [facility] [address] [place], [address] Urea nitrogen [Mass/Vol] 38 mg/dL High 7-18 [facility] Comment on above: Order Comment: Order Date: 09/16/24 Order Info: [id number] - MIALB Performed By: #### L 400.0001, L502.0250, L506.1001, L501.0900 #### [facility] [address] [place], [address] Ferritinon 01-01-2024 Ferritin [Mass/Vol] 42 ng/mL Normal 8-252 [facility] Comment on above: Order Comment: Order Date: 09/16/24 Order Info: [id number] - CMP Order Info: [id number] - LIPID Order Info: [id number] - PHOS Performed By: #### L 400.0001, L502.0250, L506.1001, L501.0900 #### [facility] [address] [place], [address] Folates, (Folic Acid)on 12-16 FOLATES 15.10 ng/mL Normal 3.1-55.4 [facility] Comment on above: Order Comment: Order Date: 09/16/24 Order Info: [id number] - CMP Order Info: [id number] - LIPID Order Info: [id number] - PHOS Performed By: #### L 400.0001, L502.0250, L506.1001, L501.0900 #### [facility] [address] [place], [address] Hemoglobin A1con 01-01-2024 HbA1c (Bld) [Mass fraction] 7.8 % High 3.8-5.6 [facility] Comment on above: Result Comment: Norm al < 5.7 % Prediabetic 5.7 - 6.4 % Diabetic >or= 6.5 % Please note range changes. Performed By: #### L 400.0001, L502.0250, L506.1001, L501.0900 #### [facility] [address] [place], [address] Iron+Iron Binding Capacityon 01-01-2024 Iron [Mass/Vol] 47 ug/dL Low 50-170 [facility] Comment on above: Order Comment: Order Date: 09/16/24 Order Info: [id number] - MIALB Performed By: #### L 400.0001, L502.0250, L506.1001, L501.0900 #### [facility] [address] [place], [address] IRON SATURATION 11.2 Low 15.0-55.0 [facility] Comment on above: Order Comment: Order Date: 09/16/24 Order Info: [id number] - MIALB Performed By: #### L 400.0001, L502.0250, L506.1001, L501.0900 #### [facility] [address] [place], [address] TIBC 421 ug/dL Normal 250-450 [facility] Comment on above: Order Comment: Order Date: 09/16/24 Order Info: [id number] - MIALB Performed By: #### L 400.0001, L502.0250, L506.1001, L501.0900 #### [facility] [address] [place], [address] Lipid Profileon 01-01-2024 Cholesterol [Mass/Vol] 135 mg/dL Normal 200 [facility] Comment on above: Order Comment: Order Date: 09/16/24 Order Info: [id number] - MIALB Result Comment: <200 mg/dL Desirable 200-240 mg/dL Borderline >240 mg/dL High Risk Performed By: #### L 400.0001, L502.0250, L506.1001, L501.0900 #### [facility] [address] [place], [address] Cholesterol in HDL [Mass/Vol] 48 mg/dL Normal [facility] Comment on above: Order Comment: Order Date: 09/16/24 Order Info: [id number] - MIALB Result Comment: The drugs N-Acetylcysteine and Metamizole may falsely depress this assay. Reference Range HDL <40 mg/dL Low HDL Cholesterol HDL >or= 60 mg/dL High HDL Cholesterol Performed By: #### L 400.0001, L502.0250, L506.1001, L501.0900 #### [facility] [address] [place], [address] Cholesterol in LDL [Mass/Vol] 48 mg/dL Normal 0-130 [facility] [facility] Comment on above: Order Comment: Order Date: 09/16/24 Order Info: [id number] - MIALB Performed By: #### L 400.0001, L502.0250, L506.1001, L501.0900 #### [facility] [address] [place], [address] Cholesterol in VLDL [Mass/Vol] 39 mg/dL Normal 5-40 [facility] Comment on above: Order Comment: Order Date: 09/16/24 Order Info: [id number] - MIALB Performed By: #### L 400.0001, L502.0250, L506.1001, L501.0900 #### [facility] [address] [place], [address] Triglyceride [Mass/Vol] 196 mg/dL Normal [facility] Comment on above: Order Comment: Order Date: 09/16/24 Order Info: [id number] - MIALB Result Comment: The drugs N-Acetylcysteine and Metamizole may falsely depress this assay. Serum Triglycerides Reference Interval Normal <150 mg/dL Borderline high 150 - 199 mg/dL High 200 - 499 mg/dL Very High > or = 500 mg/dL Performed By: #### L 400.0001, L502.0250, L506.1001, L501.0900 #### [facility] [address] [place], [address] Microalb:Creat Ratio,Random URon 01-01-2024 MALB:CRE 309.2 mg/g CRE High <30 mg/g CRE [facility] Comment on above: Performed By: #### L 500.4050, L500.4100, L501.2300 #### [facility] [address] [place], [address] MICROALBUMIN,UR 235.0 mg/L Normal NO RANGE EST. [facility] Comment on above: Performed By: #### L 500.4050, L500.4100, L501.2300 #### [facility] [address] [place], [address] Protein+Creatinine Ratio,Uri neon 01-01-2024 PROT:CRE RATIO 472 mg/g CRE High 0-200 [facility] Comment on above: Performed By: #### L 500.4050, L500.4100, L501.2300 #### [facility] [address] [place], [address] Protein (U) [Mass/Vol] 35.9 mg/dL High <11.9 [facility] Comment on above: Performed By: #### L 500.4050, L500.4100, L501.2300 #### [facility] [address] [place], [address] UR CREAT 76.00 mg/dL Normal NO RANGE EST. [facility] Comment on above: Performed By: #### L 500.4050, L500.4100, L501.2300 #### [facility] [address] [place], [address] Urinalysis, Completeon 12-31 CAST,HYALINE 0-5 SEEN Normal 0-5 [facility] Comment on above: Order Comment: Order Date: 09/16/24 Order Info: [id number] - CMP Order Info: [id number] - LIPID Order Info: [id number]- - PHOS Performed By: #### L 500.4050, L500.4100, L501.2300 #### [facility] [address] [place], [address] WBC 5-10 SEEN Normal 0-5 [facility] Comment on above: Order Comment: Order Date: 09/16/24 Order Info: [id number] - CMP Order Info: [id number] - LIPID Order Info: [id number] - PHOS Performed By: #### L 500.4050, L500.4100, L501.2300 #### [facility] [address] [place], [address] BACTERIA 0 SEEN Normal None Seen [facility] Comment on above: Order Comment: Order Date: 09/16/24 Order Info: [id number] - CMP Order Info: [id number] - LIPID Order Info: [id number] - PHOS Performed By: #### L 500.4050, L500.4100, L501.2300 #### [facility] [address] [place], [address] EPI,SQUAMOUS 0 SEEN Normal 5-10 [facility] Comment on above: Order Comment: Order Date: 09/16/24 Order Info: [id number] - CMP Order Info: [id number] - LIPID Order Info: [id number] - PHOS Performed By: #### L 500.4050, L500.4100, L501.2300 #### [facility] [address] [place], [address] Mucus Ql (Urine sed) 0 SEEN Normal [facility] Comment on above: Order Comment: Order Date: 09/16/24 Order Info: 07- - CMP Order Info: [id number] - LIPID Order Info: [id number] - PHOS Performed By: #### L 500.4050, L500.4100, L501.2300 #### [facility] [address] [place], [address] RBC 0 SEEN Normal 0-5 [facility] Comment on above: Order Comment: Order Date: 09/16/24 Order Info: [id number] - CMP Order Info: [id number] - LIPID Order Info: [id number] - PHOS Performed By: #### L 500.4050, L500.4100, L501.2300 #### [facility] [address] [place], [address] Ribs Bilat 3V No CXRon 12-12 Ribs Bilat 3V No CXR [facility] Imaging Services [address] [place] [address] Ribs Bilat 3V No CXR MR#: [id number] Acct: [id number] Name: TAMICA ANDERSON Rep #: [id number] : 1940 F 83 From: Minerva Maynard MD PCP: Dr. Dominique Lang MD Status: REG CLI Study: Ribs Bilat 3V No CXR Date of Exam: 12/13/23 Exam# [id number] Ordering Dr: Dominique Lang MD [id number] STUDY: X-RAY - BILATERAL RIBS WITH CHEST REASON FOR EXAM: Female, 83 years old. Rib pain, fall. TECHNIQUE - RIBS: 3 views of the ribs. TECHNIQUE - CHEST: Single PA view of the chest. COMPARISON: None. FINDINGS - RIBS : There are suspected fractures of the right second through fourth ribs. Normal visualized left ribs without a demonstrated fracture. FINDINGS - CHEST: There are sternal cerclage wires in place. There is elevation of the right hemidiaphragm. The lungs are otherwise clear. There is no demonstrated pleural abnormality. Normal size heart. Normal mediastinum and karina. Normal visualized pulmonary arteries. There is atherosclerotic calcification of the aortic arch. There is a dextroscoliosis of the thoracic spine. There is a comminuted fracture of the right mid clavicle. There is degenerative arthrosis of the left glenohumeral joint. There is no demonstrated abnormality of the visualized soft tissue structures of the upper abdomen. RAD/Ribs Bilat 3V No CXR IMPRESSION: RIBS: Suspected fractures of the right second through fourth ribs. CHEST: Comminuted fracture of the right mid clavicle. Elevation of the right hemidiaphragm. 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 Atherosclerotic calcification of the aortic arch. Electronically Signed: Minerva Maynard MD at 14:38 EDT Reading Location ID and State: [facility] / [place] , Service support , CC: Dr. Dominique Lang MD Toll Gate Tender: Signed Normal [facility] Clavicleon 12-11-2023 Clavicle [facility] [address] [place] [address] Clavicle MR#: [id number] Acct: [id number] Name: TAMICA ANDERSON Rep #: [id number] : 1940 F 83 From: Elvis Carvajal MD PCP: Dr. Dominique Lang MD Status: DEP AMB Study: Clavicle Date of Exam: 12/11/23 Exam# [id number] Ordering Dr: Tonny Cuadra DO [id number] STUDY: X-RAY - RIGHT CLAVICLE REASON FOR EXAM: Female, 83 years old. Pain after fall. TECHNIQUE: 2 view(s) of the clavicle. COMPARISON: None. FINDINGS: Osteopenia. Comminuted impacted fracture of the shaft of the right clavicle with slight superior displacement of the distal fragment Moderate arthrosis of the glenohumeral joint. Moderate arthrosis of the AC joint. Superior migration of the humeral head. Normal visualized pulmonary apex. RAD/Clavicle IMPRESSION: Osteopenia with comminuted right clavicular fracture as described. Osteoarthritic changes. Electronically Signed: Elvis Carvajal MD at 15:10 EDT Reading Location ID and State: [address] [place] [address] , Service support , CC: Dr. Dominique Lang MD; Dr. Tonny Cuadra DO Toll Gate Tender: Signed Normal [facility] Orthopedic Visit Reporton Orthopedic Visit Report [facility] [facility] [address] [place] [address] OFFICE VISIT Date of Service: 12/11/23 MR#: [id number] Acct: [id number] Name: TAMICA ANDERSON Rep #: [id number] : 1940 Provider: Dr. Tonny powell DO Age/Sex: 83/F Location: [facility] Status: Signed Intake Vital Signs 12/06/23 21:08 12/10/23 14:45 Height 4 ft 9 in 4 ft 9 in Intake Visit Reasons: RIGHT CLAVICLE Chief Complaint: left hip fx, s/p fall Allergies adhesive tape Adverse Reaction (Verified 12/11/23 14:03) Unknown morphine Adverse Reaction (Verified 12/11/23 14:03) Vomiting Jqpsewa-AAE-LkR Reductase Inhibitor (Schsbwa-Val-Dlv Reductase Inhibitor) Adverse Reaction (Verified 12/11/23 14:03) Pain in joints Medications ???Medication ???Instructions ???Recorded ???Confirmed ???Type metformin 500 mg tablet 1,000 mg PO BIDCM diabetes 07/22/17 12/11/23 History aspirin 81 mg tablet,delayed 81 mg PO DAILY heart 07/24/18 12/11/23 History release (Adult Aspirin Regimen) furosemide 40 mg tablet 40 mg PO DAILY edema 05/18/21 12/11/23 History potassium chloride 10 mEq 10 meq PO DAILY supplement 05/22/21 12/11/23 History tablet,extended release rosuvastatin 10 mg tablet (Crestor) 10 mg PO DAILY cholesterol 05/22/21 12/11/23 History pantoprazole 40 mg tablet,delayed 40 mg PO DAILY 30 days #30 tabs 06/08/21 12/11/23 Rx release acetaminophen 500 mg capsule 500 mg PO Q6H PRN Pain 04/26/22 12/11/23 History buspirone 10 mg tablet 10 mg PO TID mood 04/26/22 12/11/23 History cholecalciferol (vitamin D3) 25 75 mcg PO DAILY 04/26/22 12/11/23 History mcg (1,000 unit) capsule fluticasone propionate 50 1 spray intranasal DAILY 04/26/22 12/11/23 History mcg/actuation nasal spray,suspension nystatin 100,000 unit/gram topical 1 applic topical TID 04/26/22 12/11/23 History ointment sertraline 50 mg tablet (Zoloft) 50 mg PO DAILY 04/26/22 12/11/23 History alprazolam 0.25 mg tablet 0.25 mg PO BID PRN anxiety 05/30/23 12/11/23 History calcium carbonate 600 mg PO DAILY 06/10/23 12/11/23 History Have you fallen in the past year?: Yes PFSH Medical History Impingement of left shoulder Intertriginous candidiasis Incontinence Physical debility CPAP (continuous positive airway pressure) dependence Sleep apnea Fracture of right wrist with routine healing Obesity Right bundle branch block (RBBB) KATTY (obstructive sleep apnea) Pancreatitis Diabetes mellitus GERD (gastroesophageal reflux disease) HLD (hyperlipidemia) Essential (primary) hypertension Atherosclerotic heart disease of [place] coronary artery without angina pectoris Surgical History Fracture of left hip requiring operative repair Status post cardiac surgery Hx of hysterectomy Hx of cholecystectomy Hx of appendectomy History of coronary artery stent placement (11/17/14) 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) Family History Mother Hypertension Other CAD (coronary artery disease) Social History household members: spouse Smoking Status: Never smoker alcohol intake: never substance use type: does not use caffeine: Yes Type: carbonated beverages what type of physical activity do you participate in: none seatbelt use: always do you feel safe at home: Yes HPI RIGHT CLAVICLE Details: This documentation accurately reflects the service provided and the decisions made by me, Dr. Tonny Cuadra, DO 12/11/23945. Part of today???s visit was documented by Lizbeth DAMON, acting as scribe. TAMICA ANDERSON is a 83 year old F here today for ER follow-up 12/06/2023 right clavicle fracture. She states she was going to sampler pickup a couple of little branches and fell into a pine tree. She does have some abrasions on the shoulder from the fall. She also has some swelling and bruising on her right calf that Dr. Kuhn would like addressed. She does have some burning pain where the bruise is. She did see Dr. Tejada yesterday and he increased her lasix and recommended she wrap both of her legs with shalini wraps but she hasn't been able to tolerate it. She states that she is having pain right along the clavicle and is worse when she changes positions. She is taking Tylenol arthritis for the pain. Denies numbness, tingling or other associated symptoms. Ortho Exam General General: Yes no acute distress Neurologic: Yes alert and Yes oriented x3 Psychologic: Yes reasonable and appropriate Right Knee KNEE: She has a hematoma 5x 5 cm on her right leg that is tender to palpation there is no sign of infection she has does have chronic bilateral lower extremity e (more content not included)... Normal [facility] Tibia Fibula 2 Viewson 12-10 Tibia Fibula 2 Views [facility] [address] [place] [address] Tibia Fibula 2 Views MR#: [id number] Acct: [id number] Name: TAMICA ANDERSON Rep #: [id number] : 1940 F 83 From: Elvis Carvajal MD PCP: Dr. Dominique Lang MD Status: DEP AMB Study: Tibia Fibula 2 Views Date of Exam: 12/11/23 Exam# [id number] Ordering Dr: Tonny Cuadra DO [id number] STUDY: X-RAY - RIGHT TIBIA AND FIBULA REASON FOR EXAM: Female, 83 years old. Fall. Pain. TECHNIQUE: 2 view(s) of the tibia and fibula were obtained. COMPARISON: None. FINDINGS: Osteopenia. Normal visualized tibia. Normal visualized fibula. Diffuse soft tissue swelling. RAD/Tibia Fibula 2 Views IMPRESSION: Osteopenia with diffuse soft tissue swelling and no acute finding. Electronically Signed: Elvis Carvajal MD at 15:10 EDT , CC: Dr. Dominique Lang MD; Dr. Tonny Cuadra DO Toll Gate Tender: Signed Normal [facility] BNP,B-Type NATRIURETIC PEPTI Mariela 12-10-2023 Natriuretic peptide B (Bld) [Mass/Vol] 119.1 pg/mL High 0-100 [facility] Comment on above: Performed By: #### L 503.6620, L100.0100, L500.2500 #### [facility] [address] [place], [address] Basic Metabolic Profile (BMP )on 12-10-2023 BUN/CRE 41.0 RATIO High 10-20 [facility] Comment on above: Performed By: #### L 503.6620, L100.0100, L500.2500 #### [facility] [address] [place], [address] CA,Total 9.9 mg/dL Normal 8.5-10.1 [facility] Comment on above: Performed By: #### L 503.6620, L100.0100, L500.2500 #### [facility] [address] [place], [address] Chloride [Moles/Vol] 101 mmol/L Normal 98-107 [facility] Comment on above: Performed By: #### L 503.6620, L100.0100, L500.2500 #### [facility] [address] [place], [address] CO2 [Moles/Vol] 26.0 mmol/L Normal 21.0-32.0 [facility] Comment on above: Performed By: #### L 503.6620, L100.0100, L500.2500 #### [facility] [address] [place], [address] Creatinine [Mass/Vol] 1.00 mg/dL Normal 0.55-1.02 [facility] Comment on above: Result Comment: The validity of the calculated GFR GFRAA in patients over 70 years has not been determined. Clinical correlation is essential. Performed By: #### L 503.6620, L100.0100, L500.2500 #### [facility] [address] [place], [address] EST GFR - AA 68 mL/min Normal >60 [facility] Comment on above: Result Comment: Afri can [place] GFR Calc Performed By: #### L 503.6620, L100.0100, L500.2500 #### [facility] [address] [place], [address] GAP 10 Normal 5-15 [facility] Comment on above: Performed By: #### L 503.6620, L100.0100, L500.2500 #### [facility] [address] [place], [address] GFR/1.73 sq M.predicted among non-blacks MDRD (S/P/Bld) [Vol rate/Area] 56 mL/min/{1.73_m2} Low >60 [facility] Comment on above: Result Comment: Non- GFR Calc Performed By: #### L 503.6620, L100.0100, L500.2500 #### [facility] [address] [place], [address] Glucose [Mass/Vol] 242 mg/dL High 74-106 [facility] Comment on above: Result Comment: Gluc ose result greater than or equal to 200 mg/dL suggests DIABETES MELLITUS per A.D.A. criteria. Performed By: #### L 503.6620, L100.0100, L500.2500 #### [facility] [address] [place], [address] Potassium [Moles/Vol] 4.0 mmol/L Normal 3.5-5.1 [facility] Comment on above: Performed By: #### L 503.6620, L100.0100, L500.2500 #### [facility] [address] [place], [address] Sodium [Moles/Vol] 137 mmol/L Normal 136-145 [facility] Comment on above: Performed By: #### L 503.6620, L100.0100, L500.2500 #### [facility] [address] [place], [address] Urea nitrogen [Mass/Vol] 41 mg/dL High 7-18 [facility] Comment on above: Performed By: #### L 503.6620, L100.0100, L500.2500 #### [facility] [address] [place], [address] CBC W/Diff, Automatedon 11-17-2023 Absolute Lymph 1.52 X10 3/uL Normal 0.83-4.51 [facility] Comment on above: Performed By: #### L 503.6620, L100.0100, L500.2500 #### [facility] [address] [place], [address] Absolute Neut 6.3 X10 3/uL Normal 2.0-7.7 [facility] Comment on above: Performed By: #### L 503.6620, L100.0100, L500.2500 #### [facility] [address] [place], [address] Basophils/100 WBC (Bld) 0.5 % Normal 0-1 [facility] Comment on above: Performed By: #### L 503.6620, L100.0100, L500.2500 #### [facility] [address] [place], [address] Eosinophils/100 WBC (Bld) 1.9 % Normal 0-5 [facility] Comment on above: Performed By: #### L 503.6620, L100.0100, L500.2500 #### [facility] [address] [place], [address] Erythrocyte distribution width (RBC) [Ratio] 16.1 % High 11.6-14.6 [facility] Comment on above: Performed By: #### L 503.6620, L100.0100, L500.2500 #### [facility] [address] [place], [address] Hematocrit (Bld) [Volume fraction] 37.5 % Normal 37-47 [facility] Comment on above: Performed By: #### L 503.6620, L100.0100, L500.2500 #### [facility] [address] [place], [address] Hemoglobin (Bld) [Mass/Vol] 11.7 g/dL Low 12.0-15.0 [facility] Comment on above: Performed By: #### L 503.6620, L100.0100, L500.2500 #### [facility] [address] [place], [address] IG% 0.300 Normal 0.0-0.9 [facility] Comment on above: Result Comment: IG% - Immature Granulocytes (promyelocytes, myelocytes and metamyelocytes) > 1% indicates that a LEFT SHIFT is Present. Performed By: #### L 503.6620, L100.0100, L500.2500 #### [facility] [address] [place], [address] Lymphocytes/100 WBC (Bld) 17.3 % Low 19-41 [facility] Comment on above: Performed By: #### L 503.6620, L100.0100, L500.2500 #### [facility] [address] [place], [address] MCH (RBC) [Entitic mass] 26.7 pg Low 27.0-32.0 [facility] Comment on above: Performed By: #### L 503.6620, L100.0100, L500.2500 #### [facility] [address] [place], [address] MCHC (RBC) [Mass/Vol] 31.2 g/dL Low 32-36 [facility] Comment on above: Performed By: #### L 503.6620, L100.0100, L500.2500 #### [facility] [address] [place], [address] MCV (RBC) [Entitic vol] 85.6 fL Normal 81-99 [facility] Comment on above: Performed By: #### L 503.6620, L100.0100, L500.2500 #### [facility] [address] [place], [address] Monocytes/100 WBC (Bld) 8.6 % Normal 0-10 [facility] Comment on above: Performed By: #### L 503.6620, L100.0100, L500.2500 #### [facility] [address] [place], [address] Neutrophils/100 WBC (Bld) 71.4 % High 47-70 [facility] Comment on above: Performed By: #### L 503.6620, L100.0100, L500.2500 #### [facility] [address] [place], [address] Nucleated RBC (Bld) [#/Vol] 0 10*3/uL Normal 0-5 [facility] Comment on above: Performed By: #### L 503.6620, L100.0100, L500.2500 #### [facility] [address] [place], [address] Platelet mean volume (Bld) [Entitic vol] 9.7 fL Normal 6.2-12.0 [facility] Comment on above: Performed By: #### L 503.6620, L100.0100, L500.2500 #### [facility] [address] [place], [address] Platelets (Bld) [#/Vol] 205 10*3/uL Normal 150-450 [facility] Comment on above: Performed By: #### L 503.6620, L100.0100, L500.2500 #### [facility] [address] [place], [address] RBC (Bld) [#/Vol] 4.38 10*6/uL Normal 4.2-5.4 [facility] Comment on above: Performed By: #### L 503.6620, L100.0100, L500.2500 #### [facility] [address] [place], [address] RDW SD 50.4 fl High 35.1-43.9 [facility] Comment on above: Performed By: #### L 503.6620, L100.0100, L500.2500 #### [facility] [address] [place], [address] WBC (Bld) [#/Vol] 8.8 10*3/uL Normal 4.4-11.0 [facility] Comment on above: Performed By: #### L 503.6620, L100.0100, L500.2500 #### [facility] [address] [place], [address] Cardiology Visit Reporton Cardiology Visit Report [facility] [address] [place] [address] OFFICE VISIT Date of Service: 12/10/23 MR#: [id number] Acct: [id number] Name: TAMICA ANDERSON Rep #: [id number] : 1940 Provider: IDA johnson Age/Sex: 83/F Location: [facility] Status: Signed [facility] History of Present Illness Details: TAMICA ANDERSON, is a 83 F who presents to the office today for a follow-up visit. She is a lady with a history of coronary artery disease status post coronary bypass surgery in 2001 with a left internal mammary artery to the left anterior descending artery and diagonal vessel. She has been doing well since then she did have her last catheterization in November 2014 with demonstrated preserved ejection fraction and she underwent angioplasty and stenting of the left circumflex and LAD left main. She states that her PCP has discontinued her blood pressure medications due to dizziness and fall. Since discontinuing these medications-the dizziness has improved. Patient states that she fell a few days ago, and broke her right collarbone. She is in a sling. From a cardiac standpoint, the patient is doing well. She denies any palpitations, chest pain, pressure or heaviness. She does acknowledge a productive cough-clear sputum. She denies Orthopnea, and PND. She does not have bleeding issues; no blood in urine, stool or nosebleeds. She denies any decrease in energy level, myalgias, or claudication. She does have bilateral lower extremity edema. She denies sudden weight gain. She does have occasional lightheadedness with quick positional changes. She denies dizziness, syncopal or near syncopal episodes, and headaches. Intake Vital Signs 06/11/23 15:01 12/06/23 21:08 12/10/23 14:44 12/10/23 14:45 Height 4 ft 9 in 4 ft 9 in 4 ft 9 in 4 ft 9 in Weight: 134 lb BMI 29.0 BP 132/77 H Blood Pressure Location Lt brachial Position Sitting Respiration 18 Pulse 96 Pulse Source Monitor Pulse Oximetry (%) 93 Intake Visit Reasons: 6 M Remodeler Required: No Is patient in pain?: No Allergies adhesive tape Adverse Reaction (Verified 12/10/23 15:01) Unknown morphine Adverse Reaction (Verified 12/10/23 15:01) Vomiting Yyturan-HJT-FlQ Reductase Inhibitor (Agslpoi-Jtc-Xpw Reductase Inhibitor) Adverse Reaction (Verified 12/10/23 15:01) Pain in joints Medications ???Medication ???Instructions ???Recorded ???Confirmed ???Type metformin 500 mg tablet 1,000 mg PO BIDCM diabetes 07/22/17 12/10/23 History aspirin 81 mg tablet,delayed 81 mg PO DAILY heart 07/24/18 12/10/23 History release (Adult Aspirin Regimen) furosemide 40 mg tablet 40 mg PO DAILY edema 05/18/21 12/10/23 History potassium chloride 10 mEq 10 meq PO DAILY supplement 05/22/21 12/10/23 History tablet,extended release rosuvastatin 10 mg tablet (Crestor) 10 mg PO DAILY cholesterol 05/22/21 12/10/23 History pantoprazole 40 mg tablet,delayed 40 mg PO DAILY 30 days #30 tabs 06/08/21 12/10/23 Rx release acetaminophen 500 mg capsule 500 mg PO Q6H PRN Pain 04/26/22 12/10/23 History buspirone 10 mg tablet 10 mg PO TID mood 04/26/22 12/10/23 History cholecalciferol (vitamin D3) 25 75 mcg PO DAILY 04/26/22 12/10/23 History mcg (1,000 unit) capsule fluticasone propionate 50 1 spray intranasal DAILY 04/26/22 12/10/23 History mcg/actuation nasal spray,suspension nystatin 100,000 unit/gram topical 1 applic topical TID 04/26/22 12/10/23 History ointment sertraline 50 mg tablet (Zoloft) 50 mg PO DAILY 04/26/22 12/10/23 History alprazolam 0.25 mg tablet 0.25 mg PO BID PRN anxiety 05/30/23 12/10/23 History calcium carbonate 600 mg PO DAILY 06/10/23 12/10/23 History Have you fallen in the past year?: Yes PFSH Medical History Impingement of left shoulder Intertriginous candidiasis Incontinence Physical debility CPAP (continuous positive airway pressure) dependence Sleep apnea Fracture of right wrist with routine healing Obesity Right bundle branch block (RBBB) KATTY (obstructive sleep apnea) Pancreatitis Diabetes mellitus GERD (gastroesophageal reflux disease) HLD (hyperlipidemia) Essential (primary) hypertension Atherosclerotic heart disease of [place] coronary artery without angina pectoris Surgical History Fracture of left hip requiring operative repair Status post cardiac surgery Hx of hysterectomy Hx of cholecystectomy Hx of appendectomy History of coronary artery stent placement (11/17/14) 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) Family History Mother Hypertension Other CAD (coronary artery disease) Social History (Reviewe (more content not included)... Normal [facility] Chest PA and Lateralon 12-09 Chest PA and Lateral [facility] Imaging Services [address] [place], [place] [id number] Chest PA and Lateral MR#: [id number] Acct: [id number] Name: TAMICA ANDERSON Rep #: [id number] : 1940 F 83 From: Nicolasa Walsh PCP: Dr. Dominique Lang MD Status: REG CLI Study: Chest PA and Lateral Date of Exam: 12/10/23 Exam# [id number] Ordering Dr: Libertad Fernando NP MANAGER ENGINE- C [id number] INDICATION: Cough EXAMINATION/TECHNIQUE: X-RAY - XR Chest 2 Views COMPARISON: 05/18/2021 FINDINGS: LINES/DEVICES: None. LUNGS: No consolidation. Mildly elevated right hemidiaphragm is unchanged from prior. No pneumothorax. MEDIASTINUM: Unremarkable. CARDIAC SILHOUETTE: Not enlarged. Sternotomy wires. BONES AND SOFT TISSUES: No acute abnormalities. Sclerotic focus likely vertebroplasty lower thoracic, is new compared to prior chest x-ray. RAD/Chest PA and Lateral IMPRESSION: No evidence of active intrathoracic disease. Electronically Signed: Nicolasa Pereyra MD at 3:00 EDT , CC: IDA Fernando; Dr. Dominique Lang MD Toll Gate Tender: Signed Normal [facility] Clavicleon 12-06-[address] [facility] Imaging Services [address] [place], [place] [address] Clavicle MR#: [id number] Acct: [id number] Name: TAMICA ANDERSON Rep #: [id number] : 1940 F 83 From: Basilio Walsh PCP: Dr. Dominique Lang MD Status: [facility] ER Study: Clavicle Date of Exam: 12/06/23 Exam# [id number] Ordering Dr: Karl Cummings MD [id number] EXAM: XR RIGHT CLAVICLE COMPLETE, 2 OR MORE VIEWS CLINICAL INDICATION: injury TECHNIQUE: Frontal and lordotic views of the right clavicle. COMPARISON: No relevant prior studies available. FINDINGS: BONES/JOINTS: Multiple comminuted fracture right mid clavicle with overlapping of the fragments. Preservation of the joint space. No sclerotic or destructive changes observed. SOFT TISSUES: Unremarkable. No soft tissue swelling or gas. No radiopaque foreign body. RAD/Clavicle IMPRESSION: Multiple comminuted fracture right mid clavicle with overlapping of the fragments. Electronically Signed: Basilio Delong MD at 22:18 EDT , CC: Dr. Karl Cummings MD; Dr. Dominique Lang MD Toll Gate Tender: Signed Normal [facility] Emergency Department Summary on 12-06-2023 Emergency Department Summary [facility] Medical Records Department [address] [place] [id number] Emergency Department Summary 12/06/23 MR#: [id number] Acct: [id number] Name: TAMICA ANDERSON Rep #: [id number] : 1940 83 From: Karl Cummings MD PCP: Dr. Dominique Lang MD Status:[facility] ER Location: ED HPI HPI - Fall History of Present Illness Chief Complaint: Fall Informant: patient and family Narrative Narrative: Patient states earlier today, she went to sampler pickup some branches from the ground and lost her balance when bending over, tumbling over scraping her right forearm against a nearby pine tree, and falling to her right shoulder against the ground. She bruised her right lower leg which is not hurting her that bad and she can walk on it without any difficulty, but the main pain is in her right clavicle area where she has some swelling. She does have some mild right proximal humerus/shoulder pain as well. Denies any other injuries. [facility] Medical History Impingement of left shoulder Intertriginous candidiasis Incontinence Physical debility CPAP (continuous positive airway pressure) dependence Sleep apnea Fracture of right wrist with routine healing Obesity Right bundle branch block (RBBB) KATTY (obstructive sleep apnea) Pancreatitis Diabetes mellitus GERD (gastroesophageal reflux disease) HLD (hyperlipidemia) Essential (primary) hypertension Atherosclerotic heart disease of [place] coronary artery without angina pectoris Home Medications ???Medication ???Instructions ???Recorded ???Last Taken ???Type metformin 500 mg tablet 1,000 mg PO BIDCM diabetes 07/22/17 05/18/21 History aspirin 81 mg tablet,delayed 81 mg PO DAILY heart 07/24/18 05/18/21 History release (Adult Aspirin Regimen) fenofibrate 160 mg tablet 160 mg PO DAILY CHOLESTEROL 05/18/21 05/18/21 History furosemide 40 mg tablet 40 mg PO DAILY edema 05/18/21 05/18/21 History potassium chloride 10 mEq 10 meq PO DAILY supplement 05/22/21 Unknown History tablet,extended release rosuvastatin 10 mg tablet (Crestor) 10 mg PO DAILY cholesterol 05/22/21 Unknown History pantoprazole 40 mg tablet,delayed 40 mg PO DAILY 30 days #30 tabs 06/08/21 Unknown Rx release acetaminophen 500 mg capsule 500 mg PO Q6H PRN Pain 04/26/22 Unknown History buspirone 10 mg tablet 10 mg PO TID mood 04/26/22 Unknown History cholecalciferol (vitamin D3) 25 75 mcg PO DAILY 04/26/22 Unknown History mcg (1,000 unit) capsule fluticasone propionate 50 1 spray intranasal DAILY 04/26/22 Unknown History mcg/actuation nasal spray,suspension nystatin 100,000 unit/gram topical 1 applic topical TID 04/26/22 Unknown History ointment sertraline 50 mg tablet (Zoloft) 50 mg PO DAILY 04/26/22 Unknown History clopidogrel 75 mg tablet (Plavix) 75 mg PO DAILY Patient is OUT of 07/07/22 Unknown History medication alprazolam 0.25 mg tablet 0.25 mg PO BID PRN anxiety 05/30/23 Unknown History calcium carbonate 600 mg PO DAILY 06/10/23 Unknown History cephalexin 500 mg capsule 500 mg PO Q12 #14 CAPSULES 09/14/23 Unknown Rx fluconazole 150 mg tablet mg PO 10/04/23 Unknown History gabapentin 100 mg capsule 100 mg PO TID 10/04/23 Unknown History Allergy/AdvReac Type Severity Reaction Status Date / Time adhesive tape AdvReac Unknown Verified 12/06/23 21:13 morphine AdvReac Vomiting Verified 12/06/23 21:13 Bemuich-VCB-GsN Reductase AdvReac Pain in Verified 12/06/23 21:13 Inhibitor (Jvdolvn-Ylt-Emm joints Reductase Inhibitor) Family History Mother Hypertension Other CAD (coronary artery disease) Surgical History Fracture of left hip requiring operative repair Status post cardiac surgery Hx of hysterectomy Hx of cholecystectomy Hx of appendectomy History of coronary artery stent placement (11/17/14) 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) Social History household members: spouse Smoking Status: Never smoker alcohol intake: never substance use type: does not use caffeine: Yes Type: carbonated beverages what type of physical activity do you participate in: none seatbelt use: always do you feel safe at home: Yes ROS ROS ED Eyes Eyes: Denies change in vision Cardiovascular Cardiovascular: Reports leg edema and other Details: R upper chest pain at clavicle Respiratory/Chest Respiratory/Chest: Denies dyspnea Gastrointestinal Gastrointestinal: Denies abdominal pain Musculoskeletal Musculoskeletal: Reports as per HPI and extremity pain; Denies back pain or neck pain Integumentary Reports Abrasions Neurologic Neurologic: Denies headache (more content not included)... Normal [facility] Shoulder min 2 Viewson 12-05 Shoulder min [address] [facility] Imaging Services [facility] [address] [place], [place] [id number] Shoulder min 2 Views MR#: [id number] Acct: [id number] Name: TAMICA ANDERSON Rep #: [id number] : 1940 F 83 From: Basilio Walsh PCP: Dr. Dominique Lang MD Status: DEP ER Study: Shoulder min 2 Views Date of Exam: 12/06/23 Exam# [id number] Ordering Dr: Karl Cummings MD [id number] EXAM: XR RIGHT SHOULDER COMPLETE, 2 OR MORE VIEWS CLINICAL INDICATION: injury TECHNIQUE: Two or more views of the right shoulder. COMPARISON: No relevant prior studies available. FINDINGS: BONES/JOINTS: Multiply comminuted fracture right mid clavicle with overlapping of the fragments. Preservation of the joint space. No sclerotic or destructive changes observed. SOFT TISSUES: Unremarkable. No soft tissue swelling or gas. No radiopaque foreign body. RAD/Shoulder min 2 Views IMPRESSION: Multiply comminuted fracture right mid clavicle with overlapping of the fragments. Electronically Signed: Basilio Delong MD at 22:19 EDT , CC: Dr. Karl Cummings MD; Dr. Dominiuqe Lang MD Toll Gate Tender: Signed Normal [facility] Pulmonary Visit Reporton Pulmonary Visit Report [facility] Pulmonary Medicine of [address] [place] [address] OFFICE VISIT Date of Service: 10/04/23 MR#: [id number] Acct: [id number] Name: TAMICA ANDERSON Rep #: [id number] : 1940 Provider: IDA Prajapati Age/Sex: 83/F Location: [facility].PMW Status: Signed Assessment and Plan Assessment and Plan (1) KATTY (obstructive sleep apnea): Status: Chronic Plan: She is using and benefiting from Pap therapy. No indication for titration study at this time. Continue to encourage weight loss. Contact the office for any new or worsening symptoms in the meantime. Follow-up in 6 months. HPI 6 M FU/pap compliance Chief Complaint: compliance HPI Comments Details: This patient presents to the office today to reestablish care for her previously diagnosed obstructive sleep apnea. She is ambulatory and on room air. She is accompanied today by her grand- daughter. She has not recently been seen in the ED or urgent care for any respiratory illness. She has not required any antibiotics or prednisone for any breathing problems. She does report that she was recently treated in the emergency department and discharged home for cellulitis. She denies any difficulty with shortness of breath. She has an occasional cough that she describes it as raspy. She denies any wheezing, chest tightness, chest pain or palpitations. She has not had any fever, chills or body aches. She is having difficulty with pressure to the bridge of her nose. She is requesting a new pad for her PAP mask. She is not having excessive nocturia. She is not having dry mouth. She is not requiring naps and is not nodding off to sleep unintentionally. Test results personally reviewed with the patient: Sleep study from 06/21/2023 is consistent with obstructive sleep apnea. Overall AHI is 21.2 events/hour. Impression is moderate sleep apnea. Recommendation is to treat with Auto pap or preform a titration study. Compliance report from the last 30 days shows 97% compliance with an average use of 6:10 per night. Current setting is AutoPap 5-15 cmH2O with pressures being used at 6.7-10.4 cmH2O. Residual AHI of 4.3 events/hr. Leaks do not appear to be a problem. Intake Vital Signs 06/10/23 08:04 06/11/23 15:01 09/14/23 11:56 10/04/23 08:15 10/04/23 08:23 Height 4 ft 9 in 4 ft 9 in 4 ft 9 in 4 ft 9 in 4 ft 9 in Weight: 137 lb BMI 29.6 BP 153/64 H Blood Pressure Location Lt brachial Position Sitting Respiration 18 Pulse 68 Pulse Source Monitor Temp 97.2 F L Temperature Source Temporal Artery Pulse Oximetry (%) 99 Oxygen Delivery Method room air Intake Visit Reasons: 6 M FU/pap compliance Chief Complaint: left hip fx, s/p fall Remodeler Required: No DME Vendor: MARYCHUY Accompanied by: Granddaughter Allergies adhesive tape Adverse Reaction (Verified 10/04/23 08:19) Unknown morphine Adverse Reaction (Verified 10/04/23 08:19) Vomiting Rewglyw-SZQ-XsG Reductase Inhibitor (Fjwygdt-Twg-Jaa Reductase Inhibitor) Adverse Reaction (Verified 10/04/23 08:19) Pain in joints Medications ???Medication ???Instructions ???Recorded ???Confirmed ???Type metformin 500 mg tablet 1,000 mg PO BIDCM diabetes 07/22/17 10/04/23 History aspirin 81 mg tablet,delayed 81 mg PO DAILY heart 07/24/18 10/04/23 History release (Adult Aspirin Regimen) fenofibrate 160 mg tablet 160 mg PO DAILY CHOLESTEROL 05/18/21 10/04/23 History furosemide 40 mg tablet 40 mg PO DAILY edema 05/18/21 10/04/23 History potassium chloride 10 mEq 10 meq PO DAILY supplement 05/22/21 10/04/23 History tablet,extended release rosuvastatin 10 mg tablet (Crestor) 10 mg PO DAILY cholesterol 05/22/21 10/04/23 History pantoprazole 40 mg tablet,delayed 40 mg PO DAILY 30 days #30 tabs 06/08/21 10/04/23 Rx release acetaminophen 500 mg capsule 500 mg PO Q6H PRN Pain 04/26/22 10/04/23 History buspirone 10 mg tablet 10 mg PO TID mood 04/26/22 10/04/23 History cholecalciferol (vitamin D3) 25 75 mcg PO DAILY 04/26/22 10/04/23 History mcg (1,000 unit) capsule fluticasone propionate 50 1 spray intranasal DAILY 04/26/22 10/04/23 History mcg/actuation nasal spray,suspension nystatin 100,000 unit/gram topical 1 applic topical TID 04/26/22 10/04/23 History ointment sertraline 50 mg tablet (Zoloft) 50 mg PO DAILY 04/26/22 10/04/23 History clopidogrel 75 mg tablet (Plavix) 75 mg PO DAILY Patient is OUT of 07/07/22 10/04/23 History medication alprazolam 0.25 mg tablet 0.25 mg PO BID PRN anxiety 05/30/23 10/04/23 History calcium carbonate 600 mg PO DAILY 06/10/23 10/04/23 History cephalexin 500 mg capsule 500 mg PO Q12 #14 CAPSULES 09/14/23 10/04/23 Rx fluconazole 150 mg tablet mg PO 10/04/23 10/04/23 History gabapentin 100 mg capsule 100 m (more content not included)... Normal [facility] Absolute lymphocyte countOrd ered By: Dominique Lang on 05-24-2023 Lymphocytes Auto (Unsp spec) [#/Vol] 1.45 10*3/uL 0.83-4.51 [facility] Automated lymphocyte count a s percentage of total leukocytesOrdered By: Dominique Lang on 05-24-2023 Lymphocytes/100 WBC Auto (Unsp spec) 19.5 % 19-41 [facility] Basophil percentageOrdered B y: Dominique Lang on 05-24-2023 Basophil percentage 3.4 mg/dL 2.5-4.9 [facility] Basophils/100 WBC (Bld) 0.3 % 0-1 [facility] Bilirubin [Mass/Vol] 0.40 mg/dL 0.20-1.00 [facility] Comment on above: For patients on eltr ombopag therapy, use of Dimension [place] TBIL is not recommended. Chloride [Moles/Vol] 98 mmol/L 98-107 [facility] Cholesterol [Mass/Vol] 129 mg/dL <200 [facility] Comment on above: <200 mg/dL Desirable 200-240 mg/dL Borderline >240 mg/dL High Risk Eosinophils/100 WBC (Bld) 1.9 % 0-5 [facility] Glucose [Mass/Vol] 247 mg/dL 74-106 [facility] Comment on above: Glucose result great er than or equal to 200 mg/dLsuggests DIABETES MELLITUS per A.D.A. criteria. Hemoglobin (Bld) [Mass/Vol] 11.5 g/dL 12.0-15.0 [facility] Monocytes/100 WBC (Bld) 7.5 % 0-10 [facility] Neutrophils (Bld) [#/Vol] 5.2 10*3/uL 2.0-7.7 [facility] Neutrophils/100 WBC (Bld) 70.5 % 47-70 [facility] Potassium [Moles/Vol] 3.9 mmol/L 3.5-5.1 [facility] Protein [Mass/Vol] 7.8 g/dL 6.4-8.2 [facility] Sodium [Moles/Vol] 135 mmol/L 136-145 [facility] Triglyceride [Mass/Vol] 304 mg/dL <199 [facility] Comment on above: The drugs N-Acetylcy steine and Metamizole may falsely depress this assay.Serum Triglycerides Reference Interval Normal <150 mg/dL Borderline high 150 - 199 mg/dL High 200 - 499 mg/dL Very High > or = 500 mg/dL WBC (Bld) [#/Vol] 7.4 10*3/uL 4.4-11.0 [facility] Bilirubin Test strip Ql (U)O rdered By: Dominique Lang on 05-24-2023 Bilirubin Ql (U) Negative Negative [facility] Determination of erythrocyte mean corpuscular volume (MCV)Ordered By: Dominique Lang on 05-24-2023 MCV (RBC) [Entitic vol] 89.6 fL 81-99 [facility] Erythrocyte distribution wid th ratioOrdered By: Dominique Lang on 05-24-2023 Erythrocyte distribution width (RBC) [Ratio] 14.9 % 11.6-14.6 [facility] Erythrocyte distribution wid th standard deviationOrdered By: Dominique Lang on 05-24-2023 Erythrocyte distribution width (RBC) [Entitic vol] 49.2 fL 35.1-43.9 [facility] Hematocrit Auto (Bld) [Volum e fraction]Ordered By: Dominique Lang on 05-24-2023 Hematocrit (Bld) [Volume fraction] 38.1 % 37-47 [facility] Immature granulocytes/100 WB C Auto (Bld)Ordered By: Dominique Lang on 05-24-2023 Immature granulocytes/100 WBC (Bld) 0.300 % 0.0-0.9 [facility] Comment on above: IG% - Immature Granu locytes (promyelocytes, myelocytes and metamyelocytes) > 1% indicates that a LEFT SHIFT is Present. Iron measurement (mass/mass) Ordered By: Dominique Lang on 05-24-2023 Iron (Unsp spec) [Mass/Mass] 97 ug/dL 50-170 [facility] Ketones Test strip Ql (U)Ord ered By: Dominique Lang on 05-24-2023 Ketones Ql (U) Negative Negative [facility] Laboratory - Chemistry and C hemistry - challengeOrdered By: Dominique Lang on 05-24-2023 Albumin/Globulin [Mass ratio] 1.0 {ratio} 0.9-2.4 [facility] ALP [Catalytic activity/Vol] 101 U/L 45-117 [facility] ALT [Catalytic activity/Vol] 24 U/L 13-56 [facility] Cholesterol in HDL [Mass/Vol] 29 mg/dL >40 [facility] Comment on above: The drugs N-Acetylcy steine and Metamizole may falsely depress this assay. Reference Range HDL <40 mg/dL Low HDL Cholesterol HDL >or= 60 mg/dL High HDL Cholesterol Cholesterol in LDL [Mass/Vol] 39 mg/dL 0-130 [facility] CO2 [Moles/Vol] 29.0 mmol/L 21.0-32.0 [facility] Cobalamin (Vitamin B12) [Mass/Vol] 1308 pg/mL 211-911 [facility] Ferritin [Mass/Vol] 31 ng/mL 8-252 [facility] Globulin (S) [Mass/Vol] 4.0 g/dL 2.2-4.2 [facility] Urea nitrogen/Creatinine [Mass ratio] 32.8 mg/mg 10-20 [facility] Laboratory - Hematology and Cell countsOrdered By: Dominique Lang on 05-24-2023 MCH (RBC) [Entitic mass] 27.1 pg 27.0-32.0 [facility] MCHC (RBC) [Mass/Vol] 30.2 g/dL 32-36 [facility] Nucleated RBC/100 WBC (Bld) [Ratio] 0 % 0-5 [facility] Platelet mean volume (Bld) [Entitic vol] 10.4 fL 6.2-12.0 [facility] Platelets (Bld) [#/Vol] 263 10*3/uL 150-450 [facility] Nitrite Test strip Ql (U)Ord ered By: Dominique Lang on 05-24-2023 Nitrite Ql (U) Negative Negative [facility] No Panel InformationOrdered By: Dominique Lang on 05-24-2023 Estimated GFR (MDRD) Amer 49 mL/min >60 [facility] Comment on above: GFR Calc Estimated GFR (MDRD) Non-Af Amer 40 mL/min >60 [facility] Comment on above: Non- GFR Calc Folate 16.00 ng/mL 3.1-55.4 [facility] Parathyroid Hormone (Intact) 22.3 pg/mL 18.4-80.1 [facility] Total Iron Binding Capacity 520 ug/dL 250-450 [facility] Urine Microalbumin/Creatinine Ratio 17.8 mg/g CRE <30 [facility] Vitamin D 25-Hydroxy 45.2 ng/mL [facility] Comment on above: Vitamin D 25(OH) Sta tus Range Deficiency <20 ng/mL (50nmol/L) Insufficiency 20 - 30 ng/mL (50 - 75 nmol/L) Sufficiency 30 - 100 ng/mL (75 - 250 nmol/L) Toxicity >100 ng/mL (>250 nmol/L) VLDL Cholesterol 61 mg/dL 5-40 [facility] Protein Test strip Ql (U)Ord ered By: Dominique Lang on 05-24-2023 Protein Ql (U) Negative Negative [facility] RBC Auto (Bld) [#/Vol]Ordere d By: Dominique Lang on 05-24-2023 RBC (Bld) [#/Vol] 4.25 10*6/uL 4.2-5.4 [facility] Serum or plasma calcium chris urement (mass/volume)Ordered By: Dominique Lang on 05-24-2023 Calcium [Mass/Vol] 9.3 mg/dL 8.5-10.1 [facility] Serum or plasma creatinine m easurement (mass/volume)Ordered By: Dominique Lang on 05-24-2023 Creatinine [Mass/Vol] 1.34 mg/dL 0.55-1.02 [facility] Comment on above: The validity of the calculated GFR & GFRAA in patients over 70 years has not been determined. Clinical correlation is essential. Serum or plasma urea nitroge n measurement (mass/volume)Ordered By: Dominique Lang on 05-24-2023 Urea nitrogen [Mass/Vol] 44 mg/dL 7-18 [facility] Thin prep Papanicolaou smear with manual screeningOrdered By: Dominique Lang on 05-24-2023 Thin prep Papanicolaou smear with manual screening 3.8 g/dL 3.2-5.0 [facility] Thin prep Papanicolaou smear with manual screening < 6.0 mg/dL 0.0-11.8 [facility] Thin prep Papanicolaou smear with manual screening 48 U/L 15-37 [facility] Thin prep Papanicolaou smear with manual screening 8 5-15 [facility] Thin prep Papanicolaou smear with manual screening 5.4 mg/L NO RANGE EST. [facility] Urine blood detectionOrdered By: Dominique Lang on 05-24-2023 RBC Ql (U) Negative Negative [facility] Urine clarityOrdered By: Aren Lang on 05-24-2023 Clarity (U) Clear Clear [facility] Urine color determinationOrd ered By: Dominique Lang on 05-24-2023 Color (U) Yellow Yellow [facility] Urine creatinine measurement (mass/volume)Ordered By: Dominique Lang on 05-24-2023 Creatinine (U) [Mass/Vol] 30.10 mg/dL NO RANGE EST. [facility] Urine glucose detectionOrder ed By: Dominique Lang on 05-24-2023 Glucose Ql (U) Normal mg/dl Normal [facility] Urine leukocyte esterase det ection by dipstickOrdered By: Dominique Lang on 05-24-2023 Leukocyte esterase Test strip Ql (U) 25 /ul Negative [facility] Urine pHOrdered By: Dominique harrison on 05-24-2023 pH (U) 5.0 [pH] 5.0 - 8.0 [facility] Urine protein/creatinine mas s ratioOrdered By: Dominique Lang on 05-24-2023 Protein/Creatinine (U) [Mass ratio] 166 mg/g CRE 0-200 [facility] Urine specific gravity measu rementOrdered By: Dominique Lang on 05-24-2023 Specific gravity (U) [Rel density] 1.015 1.002-1.030 [facility] Urine urobilinogen measureme ntOrdered By: Dominique Lang on 05-24-2023 Urobilinogen Ql (U) Normal mg/dl Normal [facility] Whole blood hemoglobin A1c/t otal hemoglobin ratio (mass fraction)Ordered By: Dominique Lang on 05-24-2023 HbA1c (Bld) [Mass fraction] 6.8 % 3.8-5.6 [facility] Comment on above: Normal < 5.7 % Predi abetic 5.7 - 6.4 % Diabetic >or= 6.5 % Please note range changes. Basophil percentageOrdered B y: Dominique Lang on 01-11-2023 Basophil percentage 0-5 SEEN /hpf 0-5 [facility] Bilirubin Test strip Ql (U)O rdered By: Dominique Lang on 01-11-2023 Bilirubin Ql (U) Negative Negative [facility] Ketones Test strip Ql (U)Ord ered By: Dominique Lang on 01-11-2023 Ketones Ql (U) Negative Negative [facility] Mucus LM Ql (Urine sed)Order ed By: Dominique Lang on 01-11-2023 Mucus Ql (Urine sed) 0 SEEN /hpf [facility] Nitrite Test strip Ql (U)Ord ered By: Dominique Lang on 01-11-2023 Nitrite Ql (U) Negative Negative [facility] No Panel InformationOrdered By: Dominique Lang on 01-11-2023 Urine Microalbumin/Creatinine Ratio 8.8 mg/g CRE <30 [facility] Protein Test strip Ql (U)Ord ered By: Dominique Lang on 01-11-2023 Protein Ql (U) Negative Negative [facility] Squamous epithelial cells de tection in urine sediment by light microscopyOrdered By: Dominique Lang on 01-11-2023 Epithelial cells.squamous LM Ql (Urine sed) 0 SEEN /hpf 5-10 [facility] Thin prep Papanicolaou smear with manual screeningOrdered By: Dominique Lang on 01-11-2023 Thin prep Papanicolaou smear with manual screening 7.3 mg/L NO RANGE EST. [facility] Urine blood detectionOrdered By: Dominique Lang on 01-11-2023 RBC Ql (U) Negative Negative [facility] RBC Ql (U) 0 SEEN /hpf 0-5 [facility] Urine clarityOrdered By: Aren Lang on 01-11-2023 Clarity (U) Clear Clear [facility] Urine color determinationOrd ered By: Dominique Lang on 01-11-2023 Color (U) Yellow Yellow [facility] Urine creatinine measurement (mass/volume)Ordered By: Dominique Lang on 01-11-2023 Creatinine (U) [Mass/Vol] 83.00 mg/dL NO RANGE EST. [facility] Urine glucose detectionOrder ed By: Dominique Lang on 01-11-2023 Glucose Ql (U) Normal mg/dl Normal [facility] Urine leukocyte esterase det ection by dipstickOrdered By: Dominique Lang on 01-11-2023 Leukocyte esterase Test strip Ql (U) Negative Negative [facility] Urine pHOrdered By: Dominique harrison on 01-11-2023 pH (U) 6.0 [pH] 5.0 - 8.0 [facility] Urine protein measurement (m ass/volume)Ordered By: Dominique Lang on 01-11-2023 Protein (U) [Mass/Vol] 7.8 mg/dL 0.0-11.8 [facility] Urine protein/creatinine mas s ratioOrdered By: Dominique Lang on 01-11-2023 Protein/Creatinine (U) [Mass ratio] 94 mg/g CRE 0-200 [facility] Urine sediment bacteria coun t by microscopy (number/high power field)Ordered By: Dominique Lang on 01-11-2023 Bacteria LM.HPF (Urine sed) [#/Area] 0 /[HPF] None Seen [facility] Urine specific gravity measu rementOrdered By: Dominique Lang on 01-11-2023 Specific gravity (U) [Rel density] 1.015 1.002-1.030 [facility] Urobilinogen Auto test strip Ql (U)Ordered By: Dominique Lang on 01-11-2023 Urobilinogen Ql (U) Normal mg/dl Normal [facility] Absolute lymphocyte countOrd ered By: Dominique Lang on 01-09-2023 Lymphocytes Auto (Unsp spec) [#/Vol] 1.79 10*3/uL 0.83-4.51 [facility] Basophil percentageOrdered B y: Dominique Lang on 01-09-2023 Basophil percentage 4.2 mg/dL 2.5-4.9 [facility] Basophils/100 WBC (Bld) 0.2 % 0-1 [facility] Bilirubin [Mass/Vol] 0.40 mg/dL 0.20-1.00 [facility] Comment on above: For patients on eltr ombopag therapy, use of Dimension [place] TBIL is not recommended. Chloride [Moles/Vol] 100 mmol/L 98-107 [facility] Cholesterol [Mass/Vol] 132 mg/dL <200 [facility] Comment on above: <200 mg/dL Desirable 200-240 mg/dL Borderline >240 mg/dL High Risk Eosinophils/100 WBC (Bld) 1.0 % 0-5 [facility] Glucose [Mass/Vol] 145 mg/dL 74-106 [facility] Comment on above: Fasting Glucose resu lt greater than or equal to 126 mg/dL suggests DIABETES MELLITUS per A.D.A. criteria. Neutrophils (Bld) [#/Vol] 6.4 10*3/uL 2.0-7.7 [facility] Neutrophils/100 WBC (Bld) 71.8 % 47-70 [facility] Potassium [Moles/Vol] 4.1 mmol/L 3.5-5.1 [facility] Protein [Mass/Vol] 7.8 g/dL 6.4-8.2 [facility] Sodium [Moles/Vol] 137 mmol/L 136-145 [facility] Triglyceride [Mass/Vol] 270 mg/dL <199 [facility] Comment on above: The drugs N-Acetylcy steine and Metamizole may falsely depress this assay.Serum Triglycerides Reference Interval Normal <150 mg/dL Borderline high 150 - 199 mg/dL High 200 - 499 mg/dL Very High > or = 500 mg/dL WBC (Bld) [#/Vol] 8.9 10*3/uL 4.4-11.0 [facility] Blood erythrocytes count (nu mber/volume)Ordered By: Dominique Lang on 01-09-2023 RBC (Bld) [#/Vol] 3.99 10*6/uL 4.2-5.4 [facility] Blood hemoglobin measurement (mass/volume)Ordered By: Dominique Lang on 01-09-2023 Hemoglobin (Bld) [Mass/Vol] 11.3 g/dL 12.0-15.0 [facility] Blood lymphocytes/100 leukoc ytesOrdered By: Dominique Lang on 01-09-2023 Lymphocytes/100 WBC (Bld) 20.1 % 19-41 [facility] Blood monocytes/100 leukocyt esOrdered By: Dominique Lang on 01-09-2023 Monocytes/100 WBC (Bld) 6.7 % 0-10 [facility] Blood platelet mean volumeOr dered By: Dominique Lang on 01-09-2023 Platelet mean volume (Bld) [Entitic vol] 9.3 fL 6.2-12.0 [facility] Determination of erythrocyte mean corpuscular volume (MCV)Ordered By: Dominique Lang on 01-09-2023 MCV (RBC) [Entitic vol] 90.0 fL 81-99 [facility] Hematocrit Auto (Bld) [Volum e fraction]Ordered By: Dominique Lang on 01-09-2023 Hematocrit (Bld) [Volume fraction] 35.9 % 37-47 [facility] Laboratory - Chemistry and C hemistry - challengeOrdered By: Dominique Lang on 01-09-2023 ALP [Catalytic activity/Vol] 66 U/L 45-117 [facility] ALT [Catalytic activity/Vol] 27 U/L 13-56 [facility] CO2 [Moles/Vol] 28.0 mmol/L 21.0-32.0 [facility] Globulin (S) [Mass/Vol] 4.1 g/dL 2.2-4.2 [facility] Urea nitrogen/Creatinine [Mass ratio] 33.1 mg/mg 10-20 [facility] Laboratory - Hematology and Cell countsOrdered By: Dominique Lang on 01-09-2023 Erythrocyte distribution width (RBC) [Entitic vol] 49.2 fL 35.1-43.9 [facility] Erythrocyte distribution width (RBC) [Ratio] 14.8 % 11.6-14.6 [facility] Immature granulocytes/100 WBC (Bld) 0.200 % 0.0-0.9 [facility] Comment on above: IG% - Immature Granu locytes (promyelocytes, myelocytes and metamyelocytes) > 1% indicates that a LEFT SHIFT is Present. MCH (RBC) [Entitic mass] 28.3 pg 27.0-32.0 [facility] Nucleated RBC/100 WBC (Bld) [Ratio] 0 % 0-5 [facility] MCHC Auto (RBC) [Mass/Vol]Or dered By: Dominique Lang on 01-09-2023 MCHC (RBC) [Mass/Vol] 31.5 g/dL 32-36 [facility] No Panel InformationOrdered By: Dominique Lang on 01-09-2023 Estimated GFR (MDRD) Amer 46 mL/min >60 [facility] Comment on above: GFR Calc Estimated GFR (MDRD) Non-Af Amer 38 mL/min >60 [facility] Comment on above: Non- GFR Calc Parathyroid Hormone (Intact) 22.2 pg/mL 18.4-80.1 [facility] Vitamin B12 Level > 2000 pg/mL 211-911 [facility] Vitamin D 25-Hydroxy 51.7 ng/mL [facility] Comment on above: Vitamin D 25(OH) Sta tus Range Deficiency <20 ng/mL (50nmol/L) Insufficiency 20 - 30 ng/mL (50 - 75 nmol/L) Sufficiency 30 - 100 ng/mL (75 - 250 nmol/L) Toxicity >100 ng/mL (>250 nmol/L) Platelets bldOrdered By: Aren Lang on 01-09-2023 Platelets (Bld) [#/Vol] 308 10*3/uL 150-450 [facility] Serum or plasma albumin chris urement (mass/volume)Ordered By: Dominique Lang on 01-09-2023 Albumin [Mass/Vol] 3.7 g/dL 3.2-5.0 [facility] Serum or plasma albumin/glob ulin mass ratioOrdered By: Dominique Lang on 01-09-2023 Albumin/Globulin [Mass ratio] 0.9 {ratio} 0.9-2.4 [facility] Serum or plasma calcium chris urement (mass/volume)Ordered By: Dominique Lang on 01-09-2023 Calcium [Mass/Vol] 9.5 mg/dL 8.5-10.1 [facility] Serum or plasma cholesterol in HDL measurement (mass/volume)Ordered By: Dominique Lang on 01-09-2023 Cholesterol in HDL [Mass/Vol] 33 mg/dL >40 [facility] Comment on above: The drugs N-Acetylcy steine and Metamizole may falsely depress this assay. Reference Range HDL <40 mg/dL Low HDL Cholesterol HDL >or= 60 mg/dL High HDL Cholesterol Serum or plasma cholesterol in VLDL measurement (mass/volume)Ordered By: Dominique Lang on 01-09-2023 Cholesterol in VLDL [Mass/Vol] 54 mg/dL 5-40 [facility] Serum or plasma creatinine m easurement (mass/volume)Ordered By: Dominique Lang on 01-09-2023 Creatinine [Mass/Vol] 1.42 mg/dL 0.55-1.02 [facility] Comment on above: The validity of the calculated GFR & GFRAA in patients over 70 years has not been determined. Clinical correlation is essential. Serum or plasma low density lipoprotein (LDL) cholesterol measurement (mass/volume)Ordered By: Dominique Lang on 01-09-2023 Cholesterol in LDL [Mass/Vol] 45 mg/dL 0-130 [facility] Serum or plasma urea nitroge n measurement (mass/volume)Ordered By: Dominique Lang on 01-09-2023 Urea nitrogen [Mass/Vol] 47 mg/dL 7-18 [facility] Thin prep Papanicolaou smear with manual screeningOrdered By: Dominique Lang on 01-09-2023 Thin prep Papanicolaou smear with manual screening 54 U/L 15-37 [facility] Thin prep Papanicolaou smear with manual screening 9 5-15 [facility] Whole blood hemoglobin A1c/t otal hemoglobin ratio (mass fraction)Ordered By: Dominique Lang on 01-09-2023 HbA1c (Bld) [Mass fraction] 6.8 % 3.8-5.6 [facility] Comment on above: Normal < 5.7 % Predi abetic 5.7 - 6.4 % Diabetic >or= 6.5 % Please note range changes. Absolute lymphocyte countOrd ered By: Dr. Lang on 08-29-2022 Lymphocytes Auto (Unsp spec) [#/Vol] 1.27 10*3/uL 0.83-4.51 [facility] Basophil percentageOrdered B y: Dr. Lang on 08-29-2022 Basophil percentage 0-5 SEEN /hpf 0-5 [facility] Basophil percentage 2.7 mg/dL 2.5-4.9 [facility] Basophils/100 WBC (Bld) 0.1 % 0-1 [facility] Bilirubin [Mass/Vol] 0.40 mg/dL 0.20-1.00 [facility] Comment on above: For patients on eltr ombopag therapy, use of Dimension [place] TBIL is not recommended. Chloride [Moles/Vol] 99 mmol/L 98-107 [facility] Cholesterol [Mass/Vol] 128 mg/dL <200 [facility] Comment on above: <200 mg/dL Desirable 200-240 mg/dL Borderline >240 mg/dL High Risk Eosinophils/100 WBC (Bld) 0.9 % 0-5 [facility] Glucose [Mass/Vol] 253 mg/dL 74-106 [facility] Comment on above: Glucose result great er than or equal to 200 mg/dLsuggests DIABETES MELLITUS per A.D.A. criteria. Neutrophils (Bld) [#/Vol] 5.4 10*3/uL 2.0-7.7 [facility] Neutrophils/100 WBC (Bld) 72.2 % 47-70 [facility] Potassium [Moles/Vol] 3.8 mmol/L 3.5-5.1 [facility] Protein [Mass/Vol] 7.2 g/dL 6.4-8.2 [facility] Sodium [Moles/Vol] 136 mmol/L 136-145 [facility] Triglyceride [Mass/Vol] 293 mg/dL <199 [facility] Comment on above: The drugs N-Acetylcy steine and Metamizole may falsely depress this assay.Serum Triglycerides Reference Interval Normal <150 mg/dL Borderline high 150 - 199 mg/dL High 200 - 499 mg/dL Very High > or = 500 mg/dL WBC (Bld) [#/Vol] 7.4 10*3/uL 4.4-11.0 [facility] Bilirubin Test strip Ql (U)O rdered By: Dr. Lang on 08-29-2022 Bilirubin Ql (U) Negative Negative [facility] Blood erythrocytes count (nu mber/volume)Ordered By: Dr. Lang on 08-29-2022 RBC (Bld) [#/Vol] 3.70 10*6/uL 4.2-5.4 [facility] Blood hemoglobin measurement (mass/volume)Ordered By: Dr. Lang on 08-29-2022 Hemoglobin (Bld) [Mass/Vol] 10.9 g/dL 12.0-15.0 [facility] Blood lymphocytes/100 leukoc ytesOrdered By: Dr. Lang on 08-29-2022 Lymphocytes/100 WBC (Bld) 17.1 % 19-41 [facility] Blood monocytes/100 leukocyt esOrdered By: Dr. Lang on 08-29-2022 Monocytes/100 WBC (Bld) 9.3 % 0-10 [facility] Blood platelet mean volumeOr dered By: Dr. Lang on 08-29-2022 Platelet mean volume (Bld) [Entitic vol] 9.3 fL 6.2-12.0 [facility] Determination of erythrocyte mean corpuscular volume (MCV)Ordered By: Dr. Lang on 08-29-2022 MCV (RBC) [Entitic vol] 92.7 fL 81-99 [facility] Hematocrit Auto (Bld) [Volum e fraction]Ordered By: Dr. Lang on 08-29-2022 Hematocrit (Bld) [Volume fraction] 34.3 % 37-47 [facility] Hyaline casts LM.LPF (Urine sed) [#/Area]Ordered By: Dr. Lang on 08-29-2022 Hyaline casts (Urine sed) [#/Area] 10 /[LPF] 0-5 [facility] Iron measurement (mass/mass) Ordered By: Dr. Lang on 08-29-2022 Iron (Unsp spec) [Mass/Mass] 56 ug/dL 50-170 [facility] Ketones Test strip Ql (U)Ord ered By: Dr. Lang on 08-29-2022 Ketones Ql (U) Negative Negative [facility] Laboratory - Chemistry and C hemistry - challengeOrdered By: Dr. Lang on 08-29-2022 ALP [Catalytic activity/Vol] 63 U/L 45-117 [facility] ALT [Catalytic activity/Vol] 20 U/L 13-56 [facility] CO2 [Moles/Vol] 26.0 mmol/L 21.0-32.0 [facility] Cobalamin (Vitamin B12) [Mass/Vol] 1065 pg/mL 211-911 [facility] Globulin (S) [Mass/Vol] 3.8 g/dL 2.2-4.2 [facility] Urea nitrogen/Creatinine [Mass ratio] 26.2 mg/mg 10-20 [facility] Laboratory - Hematology and Cell countsOrdered By: Dr. Lang on 08-29-2022 Erythrocyte distribution width (RBC) [Entitic vol] 46.5 fL 35.1-43.9 [facility] Erythrocyte distribution width (RBC) [Ratio] 13.7 % 11.6-14.6 [facility] Immature granulocytes/100 WBC (Bld) 0.400 % 0.0-0.9 [facility] Comment on above: IG% - Immature Granu locytes (promyelocytes, myelocytes and metamyelocytes) > 1% indicates that a LEFT SHIFT is Present. MCH (RBC) [Entitic mass] 29.5 pg 27.0-32.0 [facility] Nucleated RBC/100 WBC (Bld) [Ratio] 0 % 0-5 [facility] MCHC Auto (RBC) [Mass/Vol]Or dered By: Dr. Lang on 08-29-2022 MCHC (RBC) [Mass/Vol] 31.8 g/dL 32-36 [facility] Mucus LM Ql (Urine sed)Order ed By: Dr. Lang on 08-29-2022 Mucus Ql (Urine sed) 0 SEEN /hpf [facility] Nitrite Test strip Ql (U)Ord ered By: Dr. Lang on 08-29-2022 Nitrite Ql (U) Negative Negative [facility] No Panel InformationOrdered By: Dr. Lang on 08-29-2022 Urine Microalbumin/Creatinine Ratio 15.3 mg/g CRE <30 [facility] Estimated GFR (MDRD) Amer 54 mL/min >60 [facility] Comment on above: GFR Calc Estimated GFR (MDRD) Non-Af Amer 45 mL/min >60 [facility] Comment on above: Non- GFR Calc Parathyroid Hormone (Intact) 13.1 pg/mL 18.4-80.1 [facility] Total Iron Binding Capacity 407 ug/dL 250-450 [facility] Vitamin D 25-Hydroxy 47.1 ng/mL [facility] Comment on above: Vitamin D 25(OH) Sta tus Range Deficiency <20 ng/mL (50nmol/L) Insufficiency 20 - 30 ng/mL (50 - 75 nmol/L) Sufficiency 30 - 100 ng/mL (75 - 250 nmol/L) Toxicity >100 ng/mL (>250 nmol/L) Platelets bldOrdered By: Dr. Lang on 08-29-2022 Platelets (Bld) [#/Vol] 300 10*3/uL 150-450 [facility] Protein Test strip Ql (U)Ord ered By: Dr. Lang on 08-29-2022 Protein Ql (U) Negative Negative [facility] Serum or plasma albumin chris urement (mass/volume)Ordered By: Dr. Lang on 08-29-2022 Albumin [Mass/Vol] 3.4 g/dL 3.2-5.0 [facility] Serum or plasma albumin/glob ulin mass ratioOrdered By: Dr. Lang on 08-29-2022 Albumin/Globulin [Mass ratio] 0.9 {ratio} 0.9-2.4 [facility] Serum or plasma calcium chris urement (mass/volume)Ordered By: Dr. Lang on 08-29-2022 Calcium [Mass/Vol] 9.4 mg/dL 8.5-10.1 [facility] Serum or plasma cholesterol in HDL measurement (mass/volume)Ordered By: Dr. Lang on 08-29-2022 Cholesterol in HDL [Mass/Vol] 26 mg/dL >40 [facility] Comment on above: The drugs N-Acetylcy steine and Metamizole may falsely depress this assay. Reference Range HDL <40 mg/dL Low HDL Cholesterol HDL >or= 60 mg/dL High HDL Cholesterol Serum or plasma cholesterol in VLDL measurement (mass/volume)Ordered By: Dr. Lang on 08-29-2022 Cholesterol in VLDL [Mass/Vol] 59 mg/dL 5-40 [facility] Serum or plasma creatinine m easurement (mass/volume)Ordered By: Dr. Lang on 08-29-2022 Creatinine [Mass/Vol] 1.22 mg/dL 0.55-1.02 [facility] Comment on above: The validity of the calculated GFR & GFRAA in patients over 70 years has not been determined. Clinical correlation is essential. Serum or plasma ferritin rene surement (mass/volume)Ordered By: Dr. Lang on 08-29-2022 Ferritin [Mass/Vol] 69 ng/mL 8-252 [facility] Serum or plasma folate measu rement (mass/volume)Ordered By: Dr. Lang on 08-29-2022 Folate [Mass/Vol] 8.20 ng/mL 3.1-55.4 [facility] Comment on above: Slight Hemolysis, Re sult may be falsely increased. Serum or plasma low density lipoprotein (LDL) cholesterol measurement (mass/volume)Ordered By: Dr. Lang on 08-29-2022 Cholesterol in LDL [Mass/Vol] 43 mg/dL 0-130 [facility] Serum or plasma urea nitroge n measurement (mass/volume)Ordered By: Dr. Lang on 08-29-2022 Urea nitrogen [Mass/Vol] 32 mg/dL 7-18 [facility] Squamous epithelial cells de tection in urine sediment by light microscopyOrdered By: Dr. Lang on 08-29-2022 Epithelial cells.squamous LM Ql (Urine sed) 0 SEEN /hpf 5-10 [facility] Thin prep Papanicolaou smear with manual screeningOrdered By: Dr. Lang on 08-29-2022 Thin prep Papanicolaou smear with manual screening 6.7 mg/L NO RANGE EST. [facility] Thin prep Papanicolaou smear with manual screening 26 U/L 15-37 [facility] Thin prep Papanicolaou smear with manual screening 11 5-15 [facility] Urine blood detectionOrdered By: Dr. Lang on 08-29-2022 RBC Ql (U) Negative Negative [facility] RBC Ql (U) 0 SEEN /hpf 0-5 [facility] Urine clarityOrdered By: Dr. Lang on 08-29-2022 Clarity (U) Clear Clear [facility] Urine color determinationOrd ered By: Dr. Lang on 08-29-2022 Color (U) Yellow Yellow [facility] Urine creatinine measurement (mass/volume)Ordered By: Dr. Lang on 08-29-2022 Creatinine (U) [Mass/Vol] 43.50 mg/dL NO RANGE EST. [facility] Urine glucose detectionOrder ed By: Dr. Lang on 08-29-2022 Glucose Ql (U) Normal mg/dl Normal [facility] Urine leukocyte esterase det ection by dipstickOrdered By: Dr. Lang on 08-29-2022 Leukocyte esterase Test strip Ql (U) 25 /ul Negative [facility] Urine pHOrdered By: Dr. Janelle craft on 08-29-2022 pH (U) 5.0 [pH] 5.0 - 8.0 [facility] Urine protein measurement (m ass/volume)Ordered By: Dr. Lang on 08-29-2022 Protein (U) [Mass/Vol] mg/dL 0.0-11.8 [facility] Urine protein/creatinine mas s ratioOrdered By: Dr. Lang on 08-29-2022 Protein/Creatinine (U) [Mass ratio] TNP [facility] Comment on above: Test not performed Urine sediment bacteria coun t by microscopy (number/high power field)Ordered By: Dr. Lang on 08-29-2022 Bacteria LM.HPF (Urine sed) [#/Area] 0 /[HPF] None Seen [facility] Urine specific gravity measu rementOrdered By: Dr. Lang on 08-29-2022 Specific gravity (U) [Rel density] 1.020 1.002-1.030 [facility] Urobilinogen Auto test strip Ql (U)Ordered By: Dr. Lang on 08-29-2022 Urobilinogen Ql (U) Normal mg/dl Normal [facility] Whole blood hemoglobin A1c/t otal hemoglobin ratio (mass fraction)Ordered By: Dr. Lang on 08-29-2022 HbA1c (Bld) [Mass fraction] 7.2 % 3.8-5.6 [facility] Comment on above: Normal < 5.7 % Predi abetic 5.7 - 6.4 % Diabetic >or= 6.5 % Please note range changes. Absolute lymphocyte countOrd ered By: Dr. Lang on 06-08-2022 Lymphocytes Auto (Unsp spec) [#/Vol] 1.69 10*3/uL 0.83-4.51 [facility] Basophil percentageOrdered B y: Dr. Lang on 06-08-2022 Basophil percentage 0-5 SEEN /hpf 0-5 [facility] Basophil percentage 3.3 mg/dL 2.5-4.9 [facility] Basophils/100 WBC (Bld) 0.3 % 0-1 [facility] Bilirubin [Mass/Vol] 0.30 mg/dL 0.20-1.00 [facility] Comment on above: For patients on eltr ombopag therapy, use of Dimension [place] TBIL is not recommended. Chloride [Moles/Vol] 98 mmol/L 98-107 [facility] Cholesterol [Mass/Vol] 133 mg/dL <200 [facility] Comment on above: <200 mg/dL Desirable 200-240 mg/dL Borderline >240 mg/dL High Risk Eosinophils/100 WBC (Bld) 1.5 % 0-5 [facility] Glucose [Mass/Vol] 153 mg/dL 74-106 [facility] Comment on above: Fasting Glucose resu lt greater than or equal to 126 mg/dL suggests DIABETES MELLITUS per A.D.A. criteria. Neutrophils (Bld) [#/Vol] 4.3 10*3/uL 2.0-7.7 [facility] Neutrophils/100 WBC (Bld) 65.4 % 47-70 [facility] Potassium [Moles/Vol] 3.7 mmol/L 3.5-5.1 [facility] Protein [Mass/Vol] 7.3 g/dL 6.4-8.2 [facility] Sodium [Moles/Vol] 135 mmol/L 136-145 [facility] Triglyceride [Mass/Vol] 317 mg/dL <199 [facility] Comment on above: The drugs N-Acetylcy steine and Metamizole may falsely depress this assay.Serum Triglycerides Reference Interval Normal <150 mg/dL Borderline high 150 - 199 mg/dL High 200 - 499 mg/dL Very High > or = 500 mg/dL WBC (Bld) [#/Vol] 6.5 10*3/uL 4.4-11.0 [facility] Bilirubin Test strip Ql (U)O rdered By: Dr. Lang on 06-08-2022 Bilirubin Ql (U) Negative Negative [facility] Blood erythrocytes count (nu mber/volume)Ordered By: Dr. Lang on 06-08-2022 RBC (Bld) [#/Vol] 4.05 10*6/uL 4.2-5.4 [facility] Blood hemoglobin measurement (mass/volume)Ordered By: Dr. Lang on 06-08-2022 Hemoglobin (Bld) [Mass/Vol] 11.6 g/dL 12.0-15.0 [facility] Blood lymphocytes/100 leukoc ytesOrdered By: Dr. Lang on 06-08-2022 Lymphocytes/100 WBC (Bld) 26.0 % 19-41 [facility] Blood monocytes/100 leukocyt esOrdered By: Dr. Lang on 06-08-2022 Monocytes/100 WBC (Bld) 6.6 % 0-10 [facility] Blood platelet mean volumeOr dered By: Dr. Lang on 06-08-2022 Platelet mean volume (Bld) [Entitic vol] 9.6 fL 6.2-12.0 [facility] Determination of erythrocyte mean corpuscular volume (MCV)Ordered By: Dr. Lang on 06-08-2022 MCV (RBC) [Entitic vol] 91.4 fL 81-99 [facility] Hematocrit Auto (Bld) [Volum e fraction]Ordered By: Dr. Lang on 06-08-2022 Hematocrit (Bld) [Volume fraction] 37.0 % 37-47 [facility] Iron measurement (mass/mass) Ordered By: Dr. Lang on 06-08-2022 Iron (Unsp spec) [Mass/Mass] 69 ug/dL 50-170 [facility] Ketones Test strip Ql (U)Ord ered By: Dr. Lang on 06-08-2022 Ketones Ql (U) Negative Negative [facility] Laboratory - Chemistry and C hemistry - challengeOrdered By: Dr. Lang on 06-08-2022 ALP [Catalytic activity/Vol] 75 U/L 45-117 [facility] ALT [Catalytic activity/Vol] 24 U/L 13-56 [facility] CO2 [Moles/Vol] 32.0 mmol/L 21.0-32.0 [facility] Cobalamin (Vitamin B12) [Mass/Vol] 1287 pg/mL 211-911 [facility] Globulin (S) [Mass/Vol] 3.5 g/dL 2.2-4.2 [facility] Urea nitrogen/Creatinine [Mass ratio] 27.3 mg/mg 10-20 [facility] Laboratory - Hematology and Cell countsOrdered By: Dr. Lang on 06-08-2022 Erythrocyte distribution width (RBC) [Entitic vol] 47.8 fL 35.1-43.9 [facility] Erythrocyte distribution width (RBC) [Ratio] 14.2 % 11.6-14.6 [facility] Immature granulocytes/100 WBC (Bld) 0.200 % 0.0-0.9 [facility] Comment on above: IG% - Immature Granu locytes (promyelocytes, myelocytes and metamyelocytes) > 1% indicates that a LEFT SHIFT is Present. MCH (RBC) [Entitic mass] 28.6 pg 27.0-32.0 [facility] Nucleated RBC/100 WBC (Bld) [Ratio] 0 % 0-5 [facility] MCHC Auto (RBC) [Mass/Vol]Or dered By: Dr. Lang on 06-08-2022 MCHC (RBC) [Mass/Vol] 31.4 g/dL 32-36 [facility] Mucus LM Ql (Urine sed)Order ed By: Dr. Lang on 06-08-2022 Mucus Ql (Urine sed) 0 SEEN /hpf [facility] Nitrite Test strip Ql (U)Ord ered By: Dr. Lang on 06-08-2022 Nitrite Ql (U) Negative Negative [facility] No Panel InformationOrdered By: Dr. Lang on 06-08-2022 Estimated GFR (MDRD) Amer 50 mL/min >60 [facility] Comment on above: GFR Calc Estimated GFR (MDRD) Non-Af Amer 41 mL/min >60 [facility] Comment on above: Non- GFR Calc Parathyroid Hormone (Intact) 18.7 pg/mL 18.4-80.1 [facility] Total Iron Binding Capacity 437 ug/dL 250-450 [facility] Urine Microalbumin/Creatinine Ratio 36.5 mg/g CRE <30 [facility] Vitamin D 25-Hydroxy 43.6 ng/mL [facility] Comment on above: Vitamin D 25(OH) Sta tus Range Deficiency <20 ng/mL (50nmol/L) Insufficiency 20 - 30 ng/mL (50 - 75 nmol/L) Sufficiency 30 - 100 ng/mL (75 - 250 nmol/L) Toxicity >100 ng/mL (>250 nmol/L) Platelets bldOrdered By: Dr. Lang on 06-08-2022 Platelets (Bld) [#/Vol] 269 10*3/uL 150-450 [facility] Protein Test strip Ql (U)Ord ered By: Dr. Lang on 06-08-2022 Protein Ql (U) 15 mg/dl Negative [facility] Serum or plasma albumin chris urement (mass/volume)Ordered By: Dr. Lang on 06-08-2022 Albumin [Mass/Vol] 3.8 g/dL 3.2-5.0 [facility] Serum or plasma albumin/glob ulin mass ratioOrdered By: Dr. Lang on 06-08-2022 Albumin/Globulin [Mass ratio] 1.1 {ratio} 0.9-2.4 [facility] Serum or plasma calcium chris urement (mass/volume)Ordered By: Dr. Lang on 06-08-2022 Calcium [Mass/Vol] 9.6 mg/dL 8.5-10.1 [facility] Serum or plasma cholesterol in HDL measurement (mass/volume)Ordered By: Dr. Lang on 06-08-2022 Cholesterol in HDL [Mass/Vol] 29 mg/dL >40 [facility] Comment on above: The drugs N-Acetylcy steine and Metamizole may falsely depress this assay. Reference Range HDL <40 mg/dL Low HDL Cholesterol HDL >or= 60 mg/dL High HDL Cholesterol Serum or plasma cholesterol in VLDL measurement (mass/volume)Ordered By: Dr. Lang on 06-08-2022 Cholesterol in VLDL [Mass/Vol] 63 mg/dL 5-40 [facility] Serum or plasma creatinine m easurement (mass/volume)Ordered By: Dr. Lang on 06-08-2022 Creatinine [Mass/Vol] 1.32 mg/dL 0.55-1.02 [facility] Comment on above: The validity of the calculated GFR & GFRAA in patients over 70 years has not been determined. Clinical correlation is essential. Serum or plasma ferritin rene surement (mass/volume)Ordered By: Dr. Lang on 06-08-2022 Ferritin [Mass/Vol] 69 ng/mL 8-252 [facility] Serum or plasma folate measu rement (mass/volume)Ordered By: Dr. Lang on 06-08-2022 Folate [Mass/Vol] 14.80 ng/mL 3.1-55.4 [facility] Serum or plasma low density lipoprotein (LDL) cholesterol measurement (mass/volume)Ordered By: Dr. Lang on 06-08-2022 Cholesterol in LDL [Mass/Vol] 41 mg/dL 0-130 [facility] Serum or plasma urea nitroge n measurement (mass/volume)Ordered By: Dr. Lang on 06-08-2022 Urea nitrogen [Mass/Vol] 36 mg/dL 7-18 [facility] Squamous epithelial cells de tection in urine sediment by light microscopyOrdered By: Dr. Lang on 06-08-2022 Epithelial cells.squamous LM Ql (Urine sed) 0-5 SEEN /hpf 5-10 [facility] Thin prep Papanicolaou smear with manual screeningOrdered By: Dr. Lang on 06-08-2022 Thin prep Papanicolaou smear with manual screening 40 U/L 15-37 [facility] Thin prep Papanicolaou smear with manual screening 5 5-15 [facility] Thin prep Papanicolaou smear with manual screening 37.6 mg/L NO RANGE EST. [facility] Urine blood detectionOrdered By: Dr. Lang on 06-08-2022 RBC Ql (U) Negative Negative [facility] RBC Ql (U) 0 SEEN /hpf 0-5 [facility] Urine clarityOrdered By: Dr. Lang on 06-08-2022 Clarity (U) Clear Clear [facility] Urine color determinationOrd ered By: Dr. Lang on 06-08-2022 Color (U) Yellow Yellow [facility] Urine creatinine measurement (mass/volume)Ordered By: Dr. Lang on 06-08-2022 Creatinine (U) [Mass/Vol] 103.00 mg/dL NO RANGE EST. [facility] Urine glucose detectionOrder ed By: Dr. Lang on 06-08-2022 Glucose Ql (U) Normal mg/dl Normal [facility] Urine leukocyte esterase det ection by dipstickOrdered By: Dr. Lang on 06-08-2022 Leukocyte esterase Test strip Ql (U) 500 /ul Negative [facility] Urine pHOrdered By: Dr. Janelle craft on 06-08-2022 pH (U) 5.0 [pH] 5.0 - 8.0 [facility] Urine protein measurement (m ass/volume)Ordered By: Dr. Lang on 06-08-2022 Protein (U) [Mass/Vol] 11.6 mg/dL 0.0-11.8 [facility] Urine protein/creatinine mas s ratioOrdered By: Dr. Lang on 06-08-2022 Protein/Creatinine (U) [Mass ratio] 113 mg/g CRE 0-200 [facility] Urine sediment bacteria coun t by microscopy (number/high power field)Ordered By: Dr. Lang on 06-08-2022 Bacteria LM.HPF (Urine sed) [#/Area] 0 /[HPF] None Seen [facility] Urine specific gravity measu rementOrdered By: Dr. Lang on 06-08-2022 Specific gravity (U) [Rel density] 1.020 1.002-1.030 [facility] Urobilinogen Auto test strip Ql (U)Ordered By: Dr. Lang on 06-08-2022 Urobilinogen Ql (U) Normal mg/dl Normal [facility] Whole blood hemoglobin A1c/t otal hemoglobin ratio (mass fraction)Ordered By: Dr. Lang on 06-08-2022 HbA1c (Bld) [Mass fraction] 7.4 % 3.8-5.6 [facility] Comment on above: Normal < 5.7 % Predi abetic 5.7 - 6.4 % Diabetic >or= 6.5 % Please note range changes. Absolute lymphocyte countOrd ered By: Dr. Lang on 03-07-2022 Lymphocytes Auto (Unsp spec) [#/Vol] 1.00 10*3/uL 0.83-4.51 [facility] Basophil percentageOrdered B y: Dr. Lang on 03-07-2022 Basophils/100 WBC (Bld) 0.3 % 0-1 [facility] Bilirubin [Mass/Vol] 0.30 mg/dL 0.20-1.00 [facility] Comment on above: For patients on eltr ombopag therapy, use of Dimension [place] TBIL is not recommended. Chloride [Moles/Vol] 100 mmol/L 98-107 [facility] Cholesterol [Mass/Vol] 136 mg/dL <200 [facility] Comment on above: <200 mg/dL Desirable 200-240 mg/dL Borderline >240 mg/dL High Risk Eosinophils/100 WBC (Bld) 1.2 % 0-5 [facility] Glucose [Mass/Vol] 223 mg/dL 74-106 [facility] Comment on above: Glucose result great er than or equal to 200 mg/dLsuggests DIABETES MELLITUS per A.D.A. criteria. Neutrophils (Bld) [#/Vol] 5.7 10*3/uL 2.0-7.7 [facility] Neutrophils/100 WBC (Bld) 76.5 % 47-70 [facility] Potassium [Moles/Vol] 3.9 mmol/L 3.5-5.1 [facility] Protein [Mass/Vol] 6.9 g/dL 6.4-8.2 [facility] Sodium [Moles/Vol] 139 mmol/L 136-145 [facility] Triglyceride [Mass/Vol] 255 mg/dL <199 [facility] Comment on above: The drugs N-Acetylcy steine and Metamizole may falsely depress this assay.Serum Triglycerides Reference Interval Normal <150 mg/dL Borderline high 150 - 199 mg/dL High 200 - 499 mg/dL Very High > or = 500 mg/dL WBC (Bld) [#/Vol] 7.4 10*3/uL 4.4-11.0 [facility] Blood erythrocytes count (nu mber/volume)Ordered By: Dr. Lang on 03-07-2022 RBC (Bld) [#/Vol] 4.01 10*6/uL 4.2-5.4 [facility] Blood hemoglobin measurement (mass/volume)Ordered By: Dr. Lang on 03-07-2022 Hemoglobin (Bld) [Mass/Vol] 11.8 g/dL 12.0-15.0 [facility] Blood lymphocytes/100 leukoc ytesOrdered By: Dr. Lang on 03-07-2022 Lymphocytes/100 WBC (Bld) 13.5 % 19-41 [facility] Blood monocytes/100 leukocyt esOrdered By: Dr. Lang on 03-07-2022 Monocytes/100 WBC (Bld) 8.2 % 0-10 [facility] Blood platelet mean volumeOr dered By: Dr. Lang on 03-07-2022 Platelet mean volume (Bld) [Entitic vol] 9.4 fL 6.2-12.0 [facility] Determination of erythrocyte mean corpuscular volume (MCV)Ordered By: Dr. Lang on 03-07-2022 MCV (RBC) [Entitic vol] 91.8 fL 81-99 [facility] Hematocrit Auto (Bld) [Volum e fraction]Ordered By: Dr. Lang on 03-07-2022 Hematocrit (Bld) [Volume fraction] 36.8 % 37-47 [facility] Iron measurement (mass/mass) Ordered By: Dr. Lang on 03-07-2022 Iron (Unsp spec) [Mass/Mass] 59 ug/dL 50-170 [facility] Laboratory - Chemistry and C hemistry - challengeOrdered By: Dr. Lang on 03-07-2022 ALP [Catalytic activity/Vol] 94 U/L 45-117 [facility] ALT [Catalytic activity/Vol] 30 U/L 13-56 [facility] CO2 [Moles/Vol] 28.0 mmol/L 21.0-32.0 [facility] Cobalamin (Vitamin B12) [Mass/Vol] 1744 pg/mL 211-911 [facility] Globulin (S) [Mass/Vol] 3.4 g/dL 2.2-4.2 [facility] Urea nitrogen/Creatinine [Mass ratio] 24.2 mg/mg 10-20 [facility] Laboratory - Hematology and Cell countsOrdered By: Dr. Lang on 03-07-2022 Erythrocyte distribution width (RBC) [Entitic vol] 45.5 fL 35.1-43.9 [facility] Erythrocyte distribution width (RBC) [Ratio] 13.4 % 11.6-14.6 [facility] Immature granulocytes/100 WBC (Bld) 0.300 % 0.0-0.9 [facility] Comment on above: IG% - Immature Granu locytes (promyelocytes, myelocytes and metamyelocytes) > 1% indicates that a LEFT SHIFT is Present. MCH (RBC) [Entitic mass] 29.4 pg 27.0-32.0 [facility] Nucleated RBC/100 WBC (Bld) [Ratio] 0 % 0-5 [facility] MCHC Auto (RBC) [Mass/Vol]Or dered By: Dr. Lang on 03-07-2022 MCHC (RBC) [Mass/Vol] 32.1 g/dL 32-36 [facility] No Panel InformationOrdered By: Dr. Lang on 03-07-2022 Estimated GFR (MDRD) Amer 69 mL/min >60 [facility] Comment on above: GFR Calc Estimated GFR (MDRD) Non-Af Amer 57 mL/min >60 [facility] Comment on above: Non- GFR Calc Total Iron Binding Capacity 317 ug/dL 250-450 [facility] Vitamin D 25-Hydroxy 41.1 ng/mL [facility] Comment on above: Vitamin D 25(OH) Sta tus Range Deficiency <20 ng/mL (50nmol/L) Insufficiency 20 - 30 ng/mL (50 - 75 nmol/L) Sufficiency 30 - 100 ng/mL (75 - 250 nmol/L) Toxicity >100 ng/mL (>250 nmol/L) Platelets bldOrdered By: Dr. Lang on 03-07-2022 Platelets (Bld) [#/Vol] 203 10*3/uL 150-450 [facility] Serum or plasma albumin chris urement (mass/volume)Ordered By: Dr. Lang on 03-07-2022 Albumin [Mass/Vol] 3.5 g/dL 3.2-5.0 [facility] Serum or plasma albumin/glob ulin mass ratioOrdered By: Dr. Lang on 03-07-2022 Albumin/Globulin [Mass ratio] 1.0 {ratio} 0.9-2.4 [facility] Serum or plasma calcium chris urement (mass/volume)Ordered By: Dr. Lang on 03-07-2022 Calcium [Mass/Vol] 9.3 mg/dL 8.5-10.1 [facility] Serum or plasma cholesterol in HDL measurement (mass/volume)Ordered By: Dr. Lang on 03-07-2022 Cholesterol in HDL [Mass/Vol] 49 mg/dL >40 [facility] Comment on above: The drugs N-Acetylcy steine and Metamizole may falsely depress this assay. Reference Range HDL <40 mg/dL Low HDL Cholesterol HDL >or= 60 mg/dL High HDL Cholesterol Serum or plasma cholesterol in VLDL measurement (mass/volume)Ordered By: Dr. Lang on 03-07-2022 Cholesterol in VLDL [Mass/Vol] 51 mg/dL 5-40 [facility] Serum or plasma creatinine m easurement (mass/volume)Ordered By: Dr. Lang on 03-07-2022 Creatinine [Mass/Vol] 0.99 mg/dL 0.55-1.02 [facility] Comment on above: The validity of the calculated GFR & GFRAA in patients over 70 years has not been determined. Clinical correlation is essential. Serum or plasma ferritin rene surement (mass/volume)Ordered By: Dr. Lang on 03-07-2022 Ferritin [Mass/Vol] 60 ng/mL 8-252 [facility] Serum or plasma folate measu rement (mass/volume)Ordered By: Dr. Lang on 03-07-2022 Folate [Mass/Vol] 15.20 ng/mL 3.1-55.4 [facility] Serum or plasma low density lipoprotein (LDL) cholesterol measurement (mass/volume)Ordered By: Dr. Lang on 03-07-2022 Cholesterol in LDL [Mass/Vol] 36 mg/dL 0-130 [facility] Serum or plasma urea nitroge n measurement (mass/volume)Ordered By: Dr. Lang on 03-07-2022 Urea nitrogen [Mass/Vol] 24 mg/dL 7-18 [facility] Thin prep Papanicolaou smear with manual screeningOrdered By: Dr. Lang on 03-07-2022 Thin prep Papanicolaou smear with manual screening 28 U/L 15-37 [facility] Thin prep Papanicolaou smear with manual screening 11 5-15 [facility] Whole blood hemoglobin A1c/t otal hemoglobin ratio (mass fraction)Ordered By: Dr. Lang on 03-07-2022 HbA1c (Bld) [Mass fraction] 6.4 % 3.8-5.6 [facility] Comment on above: Normal < 5.7 % Predi abetic 5.7 - 6.4 % Diabetic >or= 6.5 % Please note range changes. Basophil percentageon 2021 Basophil percentage 0 SEEN /hpf 0-5 [facility] Work Phone: Bilirubin Test strip Ql (U)o n 12-01-2021 Bilirubin Ql (U) Negative Negative [facility] Work Phone: Ketones Test strip Ql (U)on 12-01-2021 Ketones Ql (U) Negative Negative [facility] Work Phone: Mucus LM Ql (Urine sed)on Mucus Ql (Urine sed) 0 SEEN /hpf [facility] Work Phone: Nitrite Test strip Ql (U)on 12-01-2021 Nitrite Ql (U) Negative Negative [facility] Work Phone: No Panel Informationon 12-01 Urine Microalbumin/Creatinine Ratio 7.8 mg/g CRE <30 [facility] Work Phone: Protein Test strip Ql (U)on 12-01-2021 Protein Ql (U) Negative Negative [facility] Work Phone: Squamous epithelial cells de tection in urine sediment by light microscopyon 12-01-2021 Epithelial cells.squamous LM Ql (Urine sed) 0 SEEN /hpf 5-10 [facility] Work Phone: Thin prep Papanicolaou smear with manual screeningon 12-01-2021 Thin prep Papanicolaou smear with manual screening 5.0 mg/L NO RANGE EST. [facility] Work Phone: Urine blood detectionon 11-16 RBC Ql (U) Negative Negative [facility] Work Phone: RBC Ql (U) 0 SEEN /hpf 0-5 [facility] Work Phone: Urine clarityon 12-01-2021 Clarity (U) Sl. Cloudy Clear [facility] Work Phone: Urine color determinationon 12-01-2021 Color (U) Yellow Yellow [facility] Work Phone: Urine creatinine measurement (mass/volume)on 12-01-2021 Creatinine (U) [Mass/Vol] 64.60 mg/dL NO RANGE EST. [facility] Work Phone: Urine glucose detectionon Glucose Ql (U) Normal mg/dl Normal [facility] Work Phone: Urine leukocyte esterase det ection by dipstickon 12-01-2021 Leukocyte esterase Test strip Ql (U) Negative Negative [facility] Work Phone: Urine pHon 12-01-2021 pH (U) 6.5 [pH] 5.0 - 8.0 [facility] Work Phone: Urine protein measurement (m ass/volume)on 12-01-2021 Protein (U) [Mass/Vol] mg/dL 0.0-11.8 [facility] Work Phone: Urine protein/creatinine mas s ratioon 12-01-2021 Protein/Creatinine (U) [Mass ratio] TNP [facility] Work Phone: Comment on above: Test not performed Urine sediment bacteria coun t by microscopy (number/high power field)on 12-01-2021 Bacteria LM.HPF (Urine sed) [#/Area] 0 /[HPF] None Seen [facility] Work Phone: Urine specific gravity measu rementon 12-01-2021 Specific gravity (U) [Rel density] 1.015 1.002-1.030 [facility] Work Phone: Urobilinogen Auto test strip Ql (U)on 12-01-2021 Urobilinogen Ql (U) Normal mg/dl Normal [facility] Work Phone: Absolute lymphocyte counton 10-19-2021 Lymphocytes Auto (Unsp spec) [#/Vol] 1.06 10*3/uL 0.83-4.51 [facility] Work Phone: Basophil percentageon 2021 Basophil percentage 3.2 mg/dL 2.5-4.9 [facility] Work Phone: Basophils/100 WBC (Bld) 0.2 % 0-1 [facility] Work Phone: Bilirubin [Mass/Vol] 0.30 mg/dL 0.20-1.00 [facility] Work Phone: Comment on above: For patients on eltr ombopag therapy, use of Dimension [place] TBIL is not recommended. Chloride [Moles/Vol] 97 mmol/L 98-107 [facility] Work Phone: Cholesterol [Mass/Vol] 158 mg/dL <200 [facility] Work Phone: Comment on above: <200 mg/dL Desirable 200-240 mg/dL Borderline >240 mg/dL High Risk Eosinophils/100 WBC (Bld) 2.2 % 0-5 [facility] Work Phone: Glucose [Mass/Vol] 280 mg/dL 74-106 [facility] Work Phone: Comment on above: Glucose result great er than or equal to 200 mg/dLsuggests DIABETES MELLITUS per A.D.A. criteria. Neutrophils (Bld) [#/Vol] 4.2 10*3/uL 2.0-7.7 [facility] Work Phone: Neutrophils/100 WBC (Bld) 70.6 % 47-70 [facility] Work Phone: Potassium [Moles/Vol] 4.0 mmol/L 3.5-5.1 [facility] Work Phone: Protein [Mass/Vol] 7.2 g/dL 6.4-8.2 [facility] Work Phone: Sodium [Moles/Vol] 135 mmol/L 136-145 [facility] Work Phone: Triglyceride [Mass/Vol] 228 mg/dL <199 [facility] Work Phone: Comment on above: The drugs N-Acetylcy steine and Metamizole may falsely depress this assay.Serum Triglycerides Reference Interval Normal <150 mg/dL Borderline high 150 - 199 mg/dL High 200 - 499 mg/dL Very High > or = 500 mg/dL WBC (Bld) [#/Vol] 5.9 10*3/uL 4.4-11.0 [facility] Work Phone: Blood erythrocytes count (nu mber/volume)on 10-19-2021 RBC (Bld) [#/Vol] 3.74 10*6/uL 4.2-5.4 [facility] Work Phone: Blood hemoglobin measurement (mass/volume)on 10-19-2021 Hemoglobin (Bld) [Mass/Vol] 11.3 g/dL 12.0-15.0 [facility] Work Phone: Blood lymphocytes/100 leukoc yteson 10-19-2021 Lymphocytes/100 WBC (Bld) 17.9 % 19-41 [facility] Work Phone: Blood monocytes/100 leukocyt eson 10-19-2021 Monocytes/100 WBC (Bld) 8.8 % 0-10 [facility] Work Phone: Blood platelet mean volumeon 10-19-2021 Platelet mean volume (Bld) [Entitic vol] 9.1 fL 6.2-12.0 [facility] Work Phone: Determination of erythrocyte mean corpuscular volume (MCV)on 10-19-2021 MCV (RBC) [Entitic vol] 91.7 fL 81-99 [facility] Work Phone: Hematocrit Auto (Bld) [Volum e fraction]on 10-19-2021 Hematocrit (Bld) [Volume fraction] 34.3 % 37-47 [facility] Work Phone: Iron measurement (mass/mass) on 10-19-2021 Iron (Unsp spec) [Mass/Mass] 86 ug/dL 50-170 [facility] Work Phone: Laboratory - Chemistry and C hemistry - challengeon 10-19-2021 ALP [Catalytic activity/Vol] 95 U/L 45-117 [facility] Work Phone: ALT [Catalytic activity/Vol] 20 U/L 13-56 [facility] Work Phone: CO2 [Moles/Vol] 32.0 mmol/L 21.0-32.0 [facility] Work Phone: Cobalamin (Vitamin B12) [Mass/Vol] 1220 pg/mL 211-911 [facility] Work Phone: Globulin (S) [Mass/Vol] 3.8 g/dL 2.2-4.2 [facility] Work Phone: Urea nitrogen/Creatinine [Mass ratio] 21.7 mg/mg 10-20 [facility] Work Phone: Laboratory - Hematology and Cell countson 10-19-2021 Erythrocyte distribution width (RBC) [Entitic vol] 43.5 fL 35.1-43.9 [facility] Work Phone: Erythrocyte distribution width (RBC) [Ratio] 12.8 % 11.6-14.6 [facility] Work Phone: Immature granulocytes/100 WBC (Bld) 0.300 % 0.0-0.9 [facility] Work Phone: Comment on above: IG% - Immature Granu locytes (promyelocytes, myelocytes and metamyelocytes) > 1% indicates that a LEFT SHIFT is Present. MCH (RBC) [Entitic mass] 30.2 pg 27.0-32.0 [facility] Work Phone: Nucleated RBC/100 WBC (Bld) [Ratio] 0 % 0-5 [facility] Work Phone: MCHC Auto (RBC) [Mass/Vol]on 10-19-2021 MCHC (RBC) [Mass/Vol] 32.9 g/dL 32-36 [facility] Work Phone: No Panel Informationon 10-19 Estimated GFR (MDRD) Amer 51 mL/min >60 [facility] Work Phone: Comment on above: GFR Calc Estimated GFR (MDRD) Non-Af Amer 42 mL/min >60 [facility] Work Phone: Comment on above: Non- GFR Calc Parathyroid Hormone (Intact) 27.1 pg/mL 18.4-80.1 [facility] Work Phone: Total Iron Binding Capacity 395 ug/dL 250-450 [facility] Work Phone: Vitamin D 25-Hydroxy 42.9 ng/mL [facility] Work Phone: Comment on above: Vitamin D 25(OH) Sta tus Range Deficiency <20 ng/mL (50nmol/L) Insufficiency 20 - 30 ng/mL (50 - 75 nmol/L) Sufficiency 30 - 100 ng/mL (75 - 250 nmol/L) Toxicity >100 ng/mL (>250 nmol/L) Platelets bldon 10-19-2021 Platelets (Bld) [#/Vol] 231 10*3/uL 150-450 [facility] Work Phone: Serum or plasma albumin chris urement (mass/volume)on 10-19-2021 Albumin [Mass/Vol] 3.4 g/dL 3.2-5.0 [facility] Work Phone: Serum or plasma albumin/glob ulin mass ratioon 10-19-2021 Albumin/Globulin [Mass ratio] 0.9 {ratio} 0.9-2.4 [facility] Work Phone: Serum or plasma calcium chris urement (mass/volume)on 10-19-2021 Calcium [Mass/Vol] 8.9 mg/dL 8.5-10.1 [facility] Work Phone: Serum or plasma cholesterol in HDL measurement (mass/volume)on 10-19-2021 Cholesterol in HDL [Mass/Vol] 39 mg/dL >40 [facility] Work Phone: Comment on above: The drugs N-Acetylcy steine and Metamizole may falsely depress this assay. Reference Range HDL <40 mg/dL Low HDL Cholesterol HDL >or= 60 mg/dL High HDL Cholesterol Serum or plasma cholesterol in VLDL measurement (mass/volume)on 10-19-2021 Cholesterol in VLDL [Mass/Vol] 46 mg/dL 5-40 [facility] Work Phone: Serum or plasma creatinine m easurement (mass/volume)on 10-19-2021 Creatinine [Mass/Vol] 1.29 mg/dL 0.55-1.02 [facility] Work Phone: Comment on above: The validity of the calculated GFR & GFRAA in patients over 70 years has not been determined. Clinical correlation is essential. Serum or plasma ferritin rene surement (mass/volume)on 10-19-2021 Ferritin [Mass/Vol] 75 ng/mL 8-252 [facility] Work Phone: Serum or plasma folate measu rement (mass/volume)on 10-19-2021 Folate [Mass/Vol] 36.70 ng/mL 3.1-55.4 [facility] Work Phone: Serum or plasma low density lipoprotein (LDL) cholesterol measurement (mass/volume)on 10-19-2021 Cholesterol in LDL [Mass/Vol] 73 mg/dL 0-130 [facility] Work Phone: Serum or plasma urea nitroge n measurement (mass/volume)on 10-19-2021 Urea nitrogen [Mass/Vol] 28 mg/dL 7-18 [facility] Work Phone: Thin prep Papanicolaou smear with manual screeningon 10-19-2021 Thin prep Papanicolaou smear with manual screening 20 U/L 15-37 [facility] Work Phone: Thin prep Papanicolaou smear with manual screening 6 5-15 [facility] Work Phone: Whole blood hemoglobin A1c/t otal hemoglobin ratio (mass fraction)on 10-19-2021 HbA1c (Bld) [Mass fraction] 6.8 % 3.8-5.6 [facility] Work Phone: Comment on above: Normal < 5.7 % Predi abetic 5.7 - 6.4 % Diabetic >or= 6.5 % Please note range changes. Basophil percentageon 2021 Basophil percentage 0-5 SEEN /hpf 0-5 [facility] Work Phone: Bilirubin Test strip Ql (U)o n 08-11-2021 Bilirubin Ql (U) Negative Negative [facility] Work Phone: Ketones Test strip Ql (U)on 08-11-2021 Ketones Ql (U) Negative Negative [facility] Work Phone: Mucus LM Ql (Urine sed)on Mucus Ql (Urine sed) 0 SEEN /hpf [facility] Work Phone: Nitrite Test strip Ql (U)on 08-11-2021 Nitrite Ql (U) Negative Negative [facility] Work Phone: No Panel Informationon 08-11 Urine Microalbumin/Creatinine Ratio TNP [facility] Work Phone: Comment on above: Test not performed Protein Test strip Ql (U)on 08-11-2021 Protein Ql (U) Negative Negative [facility] Work Phone: Squamous epithelial cells de tection in urine sediment by light microscopyon 08-11-2021 Epithelial cells.squamous LM Ql (Urine sed) 0-5 SEEN /hpf 5-10 [facility] Work Phone: Thin prep Papanicolaou smear with manual screeningon 08-11-2021 Thin prep Papanicolaou smear with manual screening < 5.0 mg/L NO RANGE EST. [facility] Work Phone: Urine blood detectionon 07-17 RBC Ql (U) Negative Negative [facility] Work Phone: RBC Ql (U) 0-5 SEEN /hpf 0-5 [facility] Work Phone: Urine clarityon 08-11-2021 Clarity (U) Sl. Cloudy Clear [facility] Work Phone: Urine color determinationon 08-11-2021 Color (U) Yellow Yellow [facility] Work Phone: Urine creatinine measurement (mass/volume)on 08-11-2021 Creatinine (U) [Mass/Vol] 82.30 mg/dL NO RANGE EST. [facility] Work Phone: Urine glucose detectionon Glucose Ql (U) Normal mg/dl Normal [facility] Work Phone: Urine leukocyte esterase det ection by dipstickon 08-11-2021 Leukocyte esterase Test strip Ql (U) 25 /ul Negative [facility] Work Phone: Urine pHon 08-11-2021 pH (U) 6.0 [pH] 5.0 - 8.0 [facility] Work Phone: Urine protein measurement (m ass/volume)on 08-11-2021 Protein (U) [Mass/Vol] 10.1 mg/dL 0.0-11.8 [facility] Work Phone: Urine protein/creatinine mas s ratioon 08-11-2021 Protein/Creatinine (U) [Mass ratio] 123 mg/g CRE 0-200 [facility] Work Phone: Urine sediment bacteria coun t by microscopy (number/high power field)on 08-11-2021 Bacteria LM.HPF (Urine sed) [#/Area] 4 /[HPF] None Seen [facility] Work Phone: Urine specific gravity measu rementon 08-11-2021 Specific gravity (U) [Rel density] 1.015 1.002-1.030 [facility] Work Phone: Urobilinogen Auto test strip Ql (U)on 08-11-2021 Urobilinogen Ql (U) Normal mg/dl Normal [facility] Work Phone: Absolute lymphocyte counton 08-04-2021 Lymphocytes Auto (Unsp spec) [#/Vol] 1.18 10*3/uL 0.83-4.51 [facility] Work Phone: Basophil percentageon 2021 Basophil percentage 3.1 mg/dL 2.5-4.9 [facility] Work Phone: Basophils/100 WBC (Bld) 0.2 % 0-1 [facility] Work Phone: Bilirubin [Mass/Vol] 0.50 mg/dL 0.20-1.00 [facility] Work Phone: Comment on above: For patients on eltr ombopag therapy, use of Dimension [place] TBIL is not recommended. Chloride [Moles/Vol] 99 mmol/L 98-107 [facility] Work Phone: Cholesterol [Mass/Vol] 216 mg/dL <200 [facility] Work Phone: Comment on above: <200 mg/dL Desirable 200-240 mg/dL Borderline >240 mg/dL High Risk Eosinophils/100 WBC (Bld) 0.5 % 0-5 [facility] Work Phone: Glucose [Mass/Vol] 135 mg/dL 74-106 [facility] Work Phone: Comment on above: Fasting Glucose resu lt greater than or equal to 126 mg/dL suggests DIABETES MELLITUS per A.D.A. criteria. Neutrophils (Bld) [#/Vol] 4.5 10*3/uL 2.0-7.7 [facility] Work Phone: Neutrophils/100 WBC (Bld) 72.7 % 47-70 [facility] Work Phone: Potassium [Moles/Vol] 4.2 mmol/L 3.5-5.1 [facility] Work Phone: Protein [Mass/Vol] 7.7 g/dL 6.4-8.2 [facility] Work Phone: Sodium [Moles/Vol] 134 mmol/L 136-145 [facility] Work Phone: Triglyceride [Mass/Vol] 302 mg/dL <199 [facility] Work Phone: Comment on above: The drugs N-Acetylcy steine and Metamizole may falsely depress this assay.Serum Triglycerides Reference Interval Normal <150 mg/dL Borderline high 150 - 199 mg/dL High 200 - 499 mg/dL Very High > or = 500 mg/dL WBC (Bld) [#/Vol] 6.2 10*3/uL 4.4-11.0 [facility] Work Phone: Blood erythrocytes count (nu mber/volume)on 08-04-2021 RBC (Bld) [#/Vol] 3.77 10*6/uL 4.2-5.4 [facility] Work Phone: Blood hemoglobin measurement (mass/volume)on 08-04-2021 Hemoglobin (Bld) [Mass/Vol] 11.3 g/dL 12.0-15.0 [facility] Work Phone: Blood lymphocytes/100 leukoc yteson 08-04-2021 Lymphocytes/100 WBC (Bld) 19.0 % 19-41 [facility] Work Phone: Blood monocytes/100 leukocyt eson 08-04-2021 Monocytes/100 WBC (Bld) 7.3 % 0-10 [facility] Work Phone: Blood platelet mean volumeon 08-04-2021 Platelet mean volume (Bld) [Entitic vol] 9.0 fL 6.2-12.0 [facility] Work Phone: Determination of erythrocyte mean corpuscular volume (MCV)on 08-04-2021 MCV (RBC) [Entitic vol] 93.6 fL 81-99 [facility] Work Phone: Hematocrit Auto (Bld) [Volum e fraction]on 08-04-2021 Hematocrit (Bld) [Volume fraction] 35.3 % 37-47 [facility] Work Phone: Iron measurement (mass/mass) on 08-04-2021 Iron (Unsp spec) [Mass/Mass] 125 ug/dL 50-170 [facility] Work Phone: Laboratory - Chemistry and C hemistry - challengeon 08-04-2021 ALP [Catalytic activity/Vol] 87 U/L 45-117 [facility] Work Phone: ALT [Catalytic activity/Vol] 22 U/L 13-56 [facility] Work Phone: CO2 [Moles/Vol] 27.0 mmol/L 21.0-32.0 [facility] Work Phone: Cobalamin (Vitamin B12) [Mass/Vol] 680 pg/mL 211-911 [facility] Work Phone: Globulin (S) [Mass/Vol] 3.9 g/dL 2.2-4.2 [facility] Work Phone: Urea nitrogen/Creatinine [Mass ratio] 19.4 mg/mg 10-20 [facility] Work Phone: Laboratory - Hematology and Cell countson 08-04-2021 Erythrocyte distribution width (RBC) [Entitic vol] 46.0 fL 35.1-43.9 [facility] Work Phone: Erythrocyte distribution width (RBC) [Ratio] 13.4 % 11.6-14.6 [facility] Work Phone: Immature granulocytes/100 WBC (Bld) 0.300 % 0.0-0.9 [facility] Work Phone: Comment on above: IG% - Immature Granu locytes (promyelocytes, myelocytes and metamyelocytes) > 1% indicates that a LEFT SHIFT is Present. MCH (RBC) [Entitic mass] 30.0 pg 27.0-32.0 [facility] Work Phone: Nucleated RBC/100 WBC (Bld) [Ratio] 0 % 0-5 [facility] Work Phone: MCHC Auto (RBC) [Mass/Vol]on 08-04-2021 MCHC (RBC) [Mass/Vol] 32.0 g/dL 32-36 [facility] Work Phone: No Panel Informationon 08-04 Estimated GFR (MDRD) Amer 47 mL/min >60 [facility] Work Phone: Comment on above: GFR Calc Estimated GFR (MDRD) Non-Af Amer 39 mL/min >60 [facility] Work Phone: Comment on above: Non- GFR Calc Parathyroid Hormone (Intact) 14.6 pg/mL 18.4-80.1 [facility] Work Phone: Total Iron Binding Capacity 379 ug/dL 250-450 [facility] Work Phone: Vitamin D 25-Hydroxy 41.4 ng/mL [facility] Work Phone: Comment on above: Vitamin D 25(OH) Sta tus Range Deficiency <20 ng/mL (50nmol/L) Insufficiency 20 - 30 ng/mL (50 - 75 nmol/L) Sufficiency 30 - 100 ng/mL (75 - 250 nmol/L) Toxicity >100 ng/mL (>250 nmol/L) Platelets bldon 08-04-2021 Platelets (Bld) [#/Vol] 352 10*3/uL 150-450 [facility] Work Phone: Serum or plasma albumin chris urement (mass/volume)on 08-04-2021 Albumin [Mass/Vol] 3.8 g/dL 3.2-5.0 [facility] Work Phone: Serum or plasma albumin/glob ulin mass ratioon 08-04-2021 Albumin/Globulin [Mass ratio] 1.0 {ratio} 0.9-2.4 [facility] Work Phone: Serum or plasma calcium chris urement (mass/volume)on 08-04-2021 Calcium [Mass/Vol] 9.8 mg/dL 8.5-10.1 [facility] Work Phone: Serum or plasma cholesterol in HDL measurement (mass/volume)on 08-04-2021 Cholesterol in HDL [Mass/Vol] 36 mg/dL >40 [facility] Work Phone: Comment on above: The drugs N-Acetylcy steine and Metamizole may falsely depress this assay. Reference Range HDL <40 mg/dL Low HDL Cholesterol HDL >or= 60 mg/dL High HDL Cholesterol Serum or plasma cholesterol in VLDL measurement (mass/volume)on 08-04-2021 Cholesterol in VLDL [Mass/Vol] 60 mg/dL 5-40 [facility] Work Phone: Serum or plasma creatinine m easurement (mass/volume)on 08-04-2021 Creatinine [Mass/Vol] 1.39 mg/dL 0.55-1.02 [facility] Work Phone: Comment on above: The validity of the calculated GFR & GFRAA in patients over 70 years has not been determined. Clinical correlation is essential. Serum or plasma ferritin rene surement (mass/volume)on 08-04-2021 Ferritin [Mass/Vol] 209 ng/mL 8-252 [facility] Work Phone: Serum or plasma folate measu rement (mass/volume)on 08-04-2021 Folate [Mass/Vol] 12.50 ng/mL 3.1-55.4 [facility] Work Phone: Comment on above: Slight Hemolysis, Re sult may be falsely increased. Serum or plasma low density lipoprotein (LDL) cholesterol measurement (mass/volume)on 08-04-2021 Cholesterol in LDL [Mass/Vol] 120 mg/dL 0-130 [facility] Work Phone: Serum or plasma urea nitroge n measurement (mass/volume)on 08-04-2021 Urea nitrogen [Mass/Vol] 27 mg/dL 7-18 [facility] Work Phone: Thin prep Papanicolaou smear with manual screeningon 08-04-2021 Thin prep Papanicolaou smear with manual screening 43 U/L 15-37 [facility] Work Phone: Thin prep Papanicolaou smear with manual screening 8 5-15 [facility] Work Phone: Whole blood hemoglobin A1c/t otal hemoglobin ratio (mass fraction)on 08-04-2021 HbA1c (Bld) [Mass fraction] 6.2 % 3.8-5.6 [facility] Work Phone: Comment on above: Normal < 5.7 % Predi abetic 5.7 - 6.4 % Diabetic >or= 6.5 % Please note range changes. Urine creatinine measurement (mass/volume)on 06-21-2021 Creatinine (U) [Mass/Vol] 38.40 mg/dL NO RANGE EST. [facility] Work Phone: Urine protein measurement (m ass/volume)on 06-21-2021 Protein (U) [Mass/Vol] mg/dL 0.0-11.8 [facility] Work Phone: Urine protein/creatinine mas s ratioon 06-21-2021 Protein/Creatinine (U) [Mass ratio] TNP [facility] Work Phone: Comment on above: Test not performed Absolute lymphocyte counton 06-19-2021 Lymphocytes Auto (Unsp spec) [#/Vol] 1.08 10*3/uL 0.83-4.51 [facility] Work Phone: Basophil percentageon 2021 Basophils/100 WBC (Bld) 0.1 % 0-1 [facility] Work Phone: Bilirubin [Mass/Vol] 0.50 mg/dL 0.20-1.00 [facility] Work Phone: Comment on above: For patients on eltr ombopag therapy, use of Dimension [place] TBIL is not recommended. Chloride [Moles/Vol] 97 mmol/L 98-107 [facility] Work Phone: Cholesterol [Mass/Vol] 155 mg/dL <200 [facility] Work Phone: Comment on above: <200 mg/dL Desirable 200-240 mg/dL Borderline >240 mg/dL High Risk Eosinophils/100 WBC (Bld) 1.0 % 0-5 [facility] Work Phone: Glucose [Mass/Vol] 167 mg/dL 74-106 [facility] Work Phone: Comment on above: Fasting Glucose resu lt greater than or equal to 126 mg/dL suggests DIABETES MELLITUS per A.D.A. criteria. Neutrophils (Bld) [#/Vol] 5.4 10*3/uL 2.0-7.7 [facility] Work Phone: Neutrophils/100 WBC (Bld) 74.8 % 47-70 [facility] Work Phone: Potassium [Moles/Vol] 3.6 mmol/L 3.5-5.1 [facility] Work Phone: Protein [Mass/Vol] 7.4 g/dL 6.4-8.2 [facility] Work Phone: Sodium [Moles/Vol] 135 mmol/L 136-145 [facility] Work Phone: Triglyceride [Mass/Vol] 228 mg/dL <199 [facility] Work Phone: Comment on above: The drugs N-Acetylcy steine and Metamizole may falsely depress this assay.Serum Triglycerides Reference Interval Normal <150 mg/dL Borderline high 150 - 199 mg/dL High 200 - 499 mg/dL Very High > or = 500 mg/dL WBC (Bld) [#/Vol] 7.3 10*3/uL 4.4-11.0 [facility] Work Phone: Blood erythrocytes count (nu mber/volume)on 06-19-2021 RBC (Bld) [#/Vol] 3.89 10*6/uL 4.2-5.4 [facility] Work Phone: Blood hemoglobin measurement (mass/volume)on 06-19-2021 Hemoglobin (Bld) [Mass/Vol] 11.6 g/dL 12.0-15.0 [facility] Work Phone: Blood lymphocytes/100 leukoc yteson 06-19-2021 Lymphocytes/100 WBC (Bld) 14.9 % 19-41 [facility] Work Phone: Blood monocytes/100 leukocyt eson 06-19-2021 Monocytes/100 WBC (Bld) 8.8 % 0-10 [facility] Work Phone: Blood platelet mean volumeon 06-19-2021 Platelet mean volume (Bld) [Entitic vol] 8.9 fL 6.2-12.0 [facility] Work Phone: Determination of erythrocyte mean corpuscular volume (MCV)on 06-19-2021 MCV (RBC) [Entitic vol] 93.6 fL 81-99 [facility] Work Phone: Hematocrit Auto (Bld) [Volum e fraction]on 06-19-2021 Hematocrit (Bld) [Volume fraction] 36.4 % 37-47 [facility] Work Phone: Iron measurement (mass/mass) on 06-19-2021 Iron (Unsp spec) [Mass/Mass] 94 ug/dL 50-170 [facility] Work Phone: Laboratory - Chemistry and C hemistry - challengeon 06-19-2021 ALP [Catalytic activity/Vol] 132 U/L 45-117 [facility] Work Phone: ALT [Catalytic activity/Vol] 19 U/L 13-56 [facility] Work Phone: CO2 [Moles/Vol] 30.0 mmol/L 21.0-32.0 [facility] Work Phone: Cobalamin (Vitamin B12) [Mass/Vol] 191 pg/mL 211-911 [facility] Work Phone: Globulin (S) [Mass/Vol] 4.0 g/dL 2.2-4.2 [facility] Work Phone: Urea nitrogen/Creatinine [Mass ratio] 14.6 mg/mg 10-20 [facility] Work Phone: Laboratory - Hematology and Cell countson 06-19-2021 Erythrocyte distribution width (RBC) [Entitic vol] 55.2 fL 35.1-43.9 [facility] Work Phone: Erythrocyte distribution width (RBC) [Ratio] 15.9 % 11.6-14.6 [facility] Work Phone: Immature granulocytes/100 WBC (Bld) 0.400 % 0.0-0.9 [facility] Work Phone: Comment on above: IG% - Immature Granu locytes (promyelocytes, myelocytes and metamyelocytes) > 1% indicates that a LEFT SHIFT is Present. MCH (RBC) [Entitic mass] 29.8 pg 27.0-32.0 [facility] Work Phone: Nucleated RBC/100 WBC (Bld) [Ratio] 0 % 0-5 [facility] Work Phone: MCHC Auto (RBC) [Mass/Vol]on 06-19-2021 MCHC (RBC) [Mass/Vol] 31.9 g/dL 32-36 [facility] Work Phone: No Panel Informationon 06-19 Estimated GFR (MDRD) Amer 54 mL/min >60 [facility] Work Phone: Comment on above: GFR Calc Estimated GFR (MDRD) Non-Af Amer 45 mL/min >60 [facility] Work Phone: Comment on above: Non- GFR Calc Total Iron Binding Capacity 323 ug/dL 250-450 [facility] [facility] Work Phone: Vitamin D 25-Hydroxy 48.2 ng/mL [facility] Work Phone: Comment on above: Vitamin D 25(OH) Sta tus Range Deficiency <20 ng/mL (50nmol/L) Insufficiency 20 - 30 ng/mL (50 - 75 nmol/L) Sufficiency 30 - 100 ng/mL (75 - 250 nmol/L) Toxicity >100 ng/mL (>250 nmol/L) Platelets bldon 06-19-2021 Platelets (Bld) [#/Vol] 281 10*3/uL 150-450 [facility] Work Phone: Serum or plasma albumin chris urement (mass/volume)on 06-19-2021 Albumin [Mass/Vol] 3.4 g/dL 3.2-5.0 [facility] Work Phone: Serum or plasma albumin/glob ulin mass ratioon 06-19-2021 Albumin/Globulin [Mass ratio] 0.8 {ratio} 0.9-2.4 [facility] Work Phone: Serum or plasma calcium chris urement (mass/volume)on 06-19-2021 Calcium [Mass/Vol] 9.7 mg/dL 8.5-10.1 [facility] Work Phone: Serum or plasma cholesterol in HDL measurement (mass/volume)on 06-19-2021 Cholesterol in HDL [Mass/Vol] 39 mg/dL >40 [facility] Work Phone: Comment on above: The drugs N-Acetylcy steine and Metamizole may falsely depress this assay. Reference Range HDL <40 mg/dL Low HDL Cholesterol HDL >or= 60 mg/dL High HDL Cholesterol Serum or plasma cholesterol in VLDL measurement (mass/volume)on 06-19-2021 Cholesterol in VLDL [Mass/Vol] 46 mg/dL 5-40 [facility] Work Phone: Serum or plasma creatinine m easurement (mass/volume)on 06-19-2021 Creatinine [Mass/Vol] 1.23 mg/dL 0.55-1.02 [facility] Work Phone: Comment on above: The validity of the calculated GFR & GFRAA in patients over 70 years has not been determined. Clinical correlation is essential. Serum or plasma ferritin rene surement (mass/volume)on 06-19-2021 Ferritin [Mass/Vol] 312 ng/mL 8-252 [facility] Work Phone: Serum or plasma folate measu rement (mass/volume)on 06-19-2021 Folate [Mass/Vol] 9.30 ng/mL 3.1-55.4 [facility] Work Phone: Serum or plasma low density lipoprotein (LDL) cholesterol measurement (mass/volume)on 06-19-2021 Cholesterol in LDL [Mass/Vol] 70 mg/dL 0-130 [facility] Work Phone: Serum or plasma urea nitroge n measurement (mass/volume)on 06-19-2021 Urea nitrogen [Mass/Vol] 18 mg/dL 7-18 [facility] Work Phone: Thin prep Papanicolaou smear with manual screeningon 06-19-2021 Thin prep Papanicolaou smear with manual screening 29 U/L 15-37 [facility] Work Phone: Thin prep Papanicolaou smear with manual screening 8 5-15 [facility] Work Phone: Whole blood hemoglobin A1c/t otal hemoglobin ratio (mass fraction)on 06-19-2021 HbA1c (Bld) [Mass fraction] 5.6 % 3.8-5.6 [facility] Work Phone: Comment on above: Normal < 5.7 % Predi abetic 5.7 - 6.4 % Diabetic >or= 6.5 % Please note range changes. Glucose Glucometer (BldC) [M ass/Vol]on 06-10-2021 Glucose [Mass/Vol] 91 mg/dL 74-106 [facility] Work Phone: Comment on above: MANAGEMENT OF PATIEN T CARE PER NURSING PROTOCOL Absolute lymphocyte counton 06-06-2021 Lymphocytes Auto (Unsp spec) [#/Vol] 1.57 10*3/uL 0.83-4.51 [facility] Work Phone: Basophil percentageon 2021 Basophils/100 WBC (Bld) 0.3 % 0-1 [facility] Work Phone: Chloride [Moles/Vol] 103 mmol/L 98-107 [facility] Work Phone: Eosinophils/100 WBC (Bld) 1.0 % 0-5 [facility] Work Phone: Glucose [Mass/Vol] 97 mg/dL 74-106 [facility] Work Phone: [phone] Neutrophils (Bld) [#/Vol] 5.2 10*3/uL 2.0-7.7 [facility] Work Phone: [phone] Neutrophils/100 WBC (Bld) 68.3 % 47-70 [facility] Work Phone: [phone] Potassium [Moles/Vol] 4.3 mmol/L 3.5-5.1 [facility] Work Phone: Sodium [Moles/Vol] 138 mmol/L 136-145 [facility] Work Phone: WBC (Bld) [#/Vol] 7.6 10*3/uL 4.4-11.0 [facility] Work Phone: Blood erythrocytes count (nu mber/volume)on 06-06-2021 RBC (Bld) [#/Vol] 3.54 10*6/uL 4.2-5.4 [facility] Work [facility]: Blood hemoglobin measurement (mass/volume)on 06-06-2021 Hemoglobin (Bld) [Mass/Vol] 10.6 g/dL 12.0-15.0 [facility] Work Phone: Blood lymphocytes/100 leukoc yteson 06-06-2021 Lymphocytes/100 WBC (Bld) 20.6 % 19-41 [facility] Work Phone: Blood monocytes/100 leukocyt eson 06-06-2021 Monocytes/100 WBC (Bld) 9.3 % 0-10 [facility] Work Phone: Blood platelet mean volumeon 06-06-2021 Platelet mean volume (Bld) [Entitic vol] 8.4 fL 6.2-12.0 [facility] Work Phone: Determination of erythrocyte mean corpuscular volume (MCV)on 06-06-2021 MCV (RBC) [Entitic vol] 91.8 fL 81-99 [facility] Work Phone: Hematocrit Auto (Bld) [Volum e fraction]on 06-06-2021 Hematocrit (Bld) [Volume fraction] 32.5 % 37-47 [facility] Work Phone: Laboratory - Chemistry and C hemistry - challengeon 06-06-2021 CO2 [Moles/Vol] 31.0 mmol/L 21.0-32.0 [facility] Work Phone: Urea nitrogen/Creatinine [Mass ratio] 22.4 mg/mg 10-20 [facility] Work Phone: Laboratory - Hematology and Cell countson 06-06-2021 Erythrocyte distribution width (RBC) [Entitic vol] 52.0 fL 35.1-43.9 [facility] Work Phone: Erythrocyte distribution width (RBC) [Ratio] 15.6 % 11.6-14.6 [facility] Work Phone: Immature granulocytes/100 WBC (Bld) 0.500 % 0.0-0.9 [facility] Work Phone: Comment on above: IG% - Immature Granu locytes (promyelocytes, myelocytes and metamyelocytes) > 1% indicates that a LEFT SHIFT is Present. MCH (RBC) [Entitic mass] 29.9 pg 27.0-32.0 [facility] Work Phone: Nucleated RBC/100 WBC (Bld) [Ratio] 0 % 0-5 [facility] Work Phone: MCHC Auto (RBC) [Mass/Vol]on 06-06-2021 MCHC (RBC) [Mass/Vol] 32.6 g/dL 32-36 [facility] Work Phone: No Panel Informationon 06-06 Estimated Creatinine Clearance Calc 48.92 ml/min [facility] Work Phone: Estimated GFR (MDRD) Amer 70 mL/min >60 [facility] Work Phone: Comment on above: GFR Calc Estimated GFR (MDRD) Non-Af Amer 58 mL/min >60 [facility] Work Phone: Comment on above: Non- GFR Calc Platelets bldon 06-06-2021 Platelets (Bld) [#/Vol] 295 10*3/uL 150-450 [facility] Work Phone: Serum or plasma calcium chris urement (mass/volume)on 06-06-2021 Calcium [Mass/Vol] 8.8 mg/dL 8.5-10.1 [facility] Work Phone: Serum or plasma creatinine m easurement (mass/volume)on 06-06-2021 Creatinine [Mass/Vol] 0.98 mg/dL 0.55-1.02 [facility] Work Phone: Comment on above: The validity of the calculated GFR & GFRAA in patients over 70 years has not been determined. Clinical correlation is essential. Serum or plasma urea nitroge n measurement (mass/volume)on 06-06-2021 Urea nitrogen [Mass/Vol] 22 mg/dL 7-18 [facility] Work Phone: Thin prep Papanicolaou smear with manual screeningon 06-06-2021 Thin prep Papanicolaou smear with manual screening 4 5-15 [facility] Work Phone: Basophil percentageon 2021 Basophil percentage 0 SEEN /hpf 0-5 [facility] Work Phone: Bilirubin Test strip Ql (U)o n 05-29-2021 Bilirubin Ql (U) Negative Negative [facility] Work Phone: Culture, urineon 05-29-2021 Bacteria identified Cx Nom (U) Culture exhibits no growth. [facility] Work Phone: Ketones Test strip Ql (U)on 05-29-2021 Ketones Ql (U) Negative Negative [facility] Work Phone: Mucus LM Ql (Urine sed)on Mucus Ql (Urine sed) 0 SEEN /hpf [facility] Work Phone: Nitrite Test strip Ql (U)on 05-29-2021 Nitrite Ql (U) Negative Negative [facility] Work Phone: Protein Test strip Ql (U)on 05-29-2021 Protein Ql (U) Negative Negative [facility] Work Phone: Squamous epithelial cells de tection in urine sediment by light microscopyon 05-29-2021 Epithelial cells.squamous LM Ql (Urine sed) 0 SEEN /hpf 5-10 [facility] Work Phone: Urine blood detectionon 05-16 RBC Ql (U) Negative Negative [facility] Work Phone: RBC Ql (U) 0 SEEN /hpf 0-5 [facility] Work Phone: Urine clarityon 05-29-2021 Clarity (U) Clear Clear [facility] Work Phone: Urine color determinationon 05-29-2021 Color (U) Yellow Yellow [facility] Work Phone: Urine glucose detectionon Glucose Ql (U) Normal mg/dl Normal [facility] Work Phone: Urine leukocyte esterase det ection by dipstickon 05-29-2021 Leukocyte esterase Test strip Ql (U) Negative Negative [facility] Work Phone: Urine pHon 05-29-2021 pH (U) 6.0 [pH] 5.0 - 8.0 [facility] Work Phone: Urine sediment bacteria coun t by microscopy (number/high power field)on 05-29-2021 Bacteria LM.HPF (Urine sed) [#/Area] 0 /[HPF] None Seen [facility] Work Phone: Urine specific gravity measu rementon 05-29-2021 Specific gravity (U) [Rel density] 1.010 1.002-1.030 [facility] Work Phone: Urobilinogen Auto test strip Ql (U)on 05-29-2021 Urobilinogen Ql (U) Normal mg/dl Normal [facility] Work Phone: Basophil percentageon 2021 WBC (Bld) [#/Vol] 8.6 10*3/uL 4.4-11.0 [facility] Work Phone: Blood erythrocytes count (nu mber/volume)on 05-22-2021 RBC (Bld) [#/Vol] 2.47 10*6/uL 4.2-5.4 [facility] Work Phone: Blood hemoglobin measurement (mass/volume)on 05-22-2021 Hemoglobin (Bld) [Mass/Vol] 7.3 g/dL 12.0-15.0 [facility] Work Phone: Blood platelet mean volumeon 05-22-2021 Platelet mean volume (Bld) [Entitic vol] 9.4 fL 6.2-12.0 [facility] Work Phone: Determination of erythrocyte mean corpuscular volume (MCV)on 05-22-2021 MCV (RBC) [Entitic vol] 88.7 fL 81-99 [facility] Work Phone: Glucose Glucometer (BldC) [M ass/Vol]on 05-22-2021 Glucose [Mass/Vol] 175 mg/dL 74-106 [facility] Work Phone: Comment on above: MANAGEMENT OF PATIEN T CARE PER NURSING PROTOCOL Hematocrit Auto (Bld) [Volum e fraction]on 05-22-2021 Hematocrit (Bld) [Volume fraction] 21.9 % 37-47 [facility] Work Phone: Laboratory - Hematology and Cell countson 05-22-2021 Erythrocyte distribution width (RBC) [Entitic vol] 44.7 fL 35.1-43.9 [facility] Work Phone: Erythrocyte distribution width (RBC) [Ratio] 13.8 % 11.6-14.6 [facility] Work Phone: MCH (RBC) [Entitic mass] 29.6 pg 27.0-32.0 [facility] Work Phone: MCHC Auto (RBC) [Mass/Vol]on 05-22-2021 MCHC (RBC) [Mass/Vol] 33.3 g/dL 32-36 [facility] Work Phone: Platelets bldon 05-22-2021 Platelets (Bld) [#/Vol] 246 10*3/uL 150-450 [facility] Work Phone: Basophil percentageon 2021 Chloride [Moles/Vol] 103 mmol/L 98-107 [facility] Work Phone: Glucose [Mass/Vol] 123 mg/dL 74-106 [facility] Work Phone: Comment on above: Fasting Glucose resu lt from 100 to 125 mg/dL suggests IMPAIRED HOMEOSTASIS per A.D.A. criteria. Potassium [Moles/Vol] 4.0 mmol/L 3.5-5.1 [facility] Work Phone: Sodium [Moles/Vol] 139 mmol/L 136-145 [facility] Work Phone: Laboratory - Chemistry and C hemistry - challengeon 05-20-2021 CO2 [Moles/Vol] 26.0 mmol/L 21.0-32.0 [facility] Work Phone: Urea nitrogen/Creatinine [Mass ratio] 12.5 mg/mg 10-20 [facility] Work Phone: No Panel Informationon 05-20 Estimated Creatinine Clearance Calc 20.68 ml/min [facility] Work Phone: Estimated GFR (MDRD) Amer 27 mL/min >60 [facility] Work Phone: Comment on above: GFR Calc Estimated GFR (MDRD) Non-Af Amer 22 mL/min >60 [facility] Work Phone: Comment on above: Non- GFR Calc Serum or plasma calcium chris urement (mass/volume)on 05-20-2021 Calcium [Mass/Vol] 8.2 mg/dL 8.5-10.1 [facility] Work Phone: Serum or plasma creatinine m easurement (mass/volume)on 05-20-2021 Creatinine [Mass/Vol] 2.24 mg/dL 0.55-1.02 [facility] Work Phone: Comment on above: The validity of the calculated GFR & GFRAA in patients over 70 years has not been determined. Clinical correlation is essential. Serum or plasma urea nitroge n measurement (mass/volume)on 05-20-2021 Urea nitrogen [Mass/Vol] 28 mg/dL 7-18 [facility] Work Phone: Thin prep Papanicolaou smear with manual screeningon 05-20-2021 Thin prep Papanicolaou smear with manual screening 10 5-15 [facility] Work Phone: Absolute lymphocyte counton 05-18-2021 Lymphocytes Auto (Unsp spec) [#/Vol] 0.99 10*3/uL 0.83-4.51 [facility] Work Phone: Basophil percentageon 2021 Bilirubin [Mass/Vol] 0.30 mg/dL 0.20-1.00 [facility] Work Phone: Comment on above: For patients on eltr ombopag therapy, use of Dimension [place] TBIL is not recommended. Protein [Mass/Vol] 6.8 g/dL 6.4-8.2 [facility] Work Phone: Basophils/100 WBC (Bld) 0.1 % 0-1 [facility] [place] [facility] Work Phone: Eosinophils/100 WBC (Bld) 0.7 % 0-5 [facility] Work Phone: Neutrophils (Bld) [#/Vol] 6.9 10*3/uL 2.0-7.7 [facility] Work Phone: [phone] Neutrophils/100 WBC (Bld) 80.5 % 47-70 [facility] Work Phone: [phone] Blood lymphocytes/100 leukoc yteson 05-18-2021 Lymphocytes/100 WBC (Bld) 11.6 % 19-41 [facility] Work Phone: Blood monocytes/100 leukocyt eson 05-18-2021 Monocytes/100 WBC (Bld) 6.5 % 0-10 [facility] Work Phone: Direct bilirubinon 2 Bilirubin.direct [Mass/Vol] 0.13 mg/dL 0.00-0.30 [facility] Work Phone: INR in Blood by Coagulation assayon 05-18-2021 INR Coag (Bld) [Relative time] 1.1 {INR} [facility] Work Phone: Laboratory - Chemistry and C hemistry - challengeon 05-18-2021 ALP [Catalytic activity/Vol] 42 U/L 45-117 [facility] Work Phone: ALT [Catalytic activity/Vol] 17 U/L 13-56 [facility] Work Phone: Globulin (S) [Mass/Vol] 3.3 g/dL 2.2-4.2 [facility] Work Phone: Laboratory - Coagulationon 0 05-18-2021 PT Coag (PPP) [Time] 14.0 s 11.7-14.9 [facility] Work Phone: Laboratory - Hematology and Cell countson 05-18-2021 Immature granulocytes/100 WBC (Bld) 0.600 % 0.0-0.9 [facility] Work Phone: Comment on above: IG% - Immature Granu locytes (promyelocytes, myelocytes and metamyelocytes) > 1% indicates that a LEFT SHIFT is Present. Nucleated RBC/100 WBC (Bld) [Ratio] 0 % 0-5 [facility] Work Phone: No Panel Informationon 05-18 Vitamin D 25-Hydroxy 39.6 ng/mL [facility] Work Phone: Comment on above: Vitamin D 25(OH) Sta tus Range Deficiency <20 ng/mL (50nmol/L) Insufficiency 20 - 30 ng/mL (50 - 75 nmol/L) Sufficiency 30 - 100 ng/mL (75 - 250 nmol/L) Toxicity >100 ng/mL (>250 nmol/L) Serum or plasma albumin chris urement (mass/volume)on 05-18-2021 Albumin [Mass/Vol] 3.5 g/dL 3.2-5.0 [facility] Work Phone: Serum or plasma albumin/glob ulin mass ratioon 05-18-2021 Albumin/Globulin [Mass ratio] 1.1 {ratio} 0.9-2.4 [facility] Work Phone: Thin prep Papanicolaou smear with manual screeningon 05-18-2021 Thin prep Papanicolaou smear with manual screening 31 U/L 15-37 [facility] Work Phone: Whole blood hemoglobin A1c/t otal hemoglobin ratio (mass fraction)on 05-18-2021 HbA1c (Bld) [Mass fraction] 6.7 % 3.8-5.6 [facility] Work Phone: Comment on above: Normal < 5.7 % Predi abetic 5.7 - 6.4 % Diabetic >or= 6.5 % Please note range changes. .GFRon 10-09-2017 GFR Non- 48 ml/min/1.73sqm Normal [facility] ([place]) Comment on above: Result Comment: GFR Population mean for , Non- Americans Ages 20-29 = 116 mL/min/1.73 sq.m. Ages 30-39 = 107 mL/min/1.73 sq.m. Ages 40-49 = 99 mL/min/1.73 sq.m. Ages 50-59 = 93 mL/min/1.73 sq.m. Ages 60-69 = 85 mL/min/1.73 sq.m. Ages 70+ = 75 mL/min/1.73 sq.m.Chronic Kidney Disease: Less than 60 mL/min/1.73 square metersEnd Stage Renal Disease: Less than 15 mL/min/1.73 square meters Performed By: #### T OXMN ####[address] [place], [place] [address] GFR 58 ml/min/1.73sqm Normal [facility] ([place] Comment on above: Result Comment: GFR Population mean for , Non- Americans Ages 20-29 = 116 mL/min/1.73 sq.m. Ages 30-39 = 107 mL/min/1.73 sq.m. Ages 40-49 = 99 mL/min/1.73 sq.m. Ages 50-59 = 93 mL/min/1.73 sq.m. Ages 60-69 = 85 mL/min/1.73 sq.m. Ages 70+ = 75 mL/min/1.73 sq.m.Chronic Kidney Disease: Less than 60 mL/min/1.73 square metersEnd Stage Renal Disease: Less than 15 mL/min/1.73 square meters Performed By: #### T OXSC ####[address] [place], [place] [address] CMPon 10-09-2017 Alanine aminotransferase (ALT) 33 U/L Normal 10-35 [facility] ([place]) Comment on above: Performed By: #### Virgil OXSC ####[address] [place], [place] [address] Albumin 4.0 G/dL Normal 3.4-4.8 [facility] ([place] Comment on above: Performed By: #### Virgil OXSC ####[address] [place], [place] [address] Albumin/Globulin Ratio 1.1 {ratio} Normal 1.1-2.5 [facility] ([place]) Comment on above: Performed By: #### Virgil OXSC ####[address] [place], [place] [address] Alk Phos 73 U/L Normal 40-135 [facility] ([place] Comment on above: Performed By: #### T OXSC ####H[address] [place], [place] [address] Aspartate aminotransferase (AST) 56 U/L High 10-40 [facility] ([place] Comment on above: Performed By: #### T OXSC ####[id number] [place], [place] [address] Bili Total 0.3 mg/dL Normal 0.2-1.0 [facility] ([place]) Comment on above: Performed By: #### T OXSC ####[address] [place], [place] [address] BUN/Creatinine Ratio 19 ratio Normal 7-27 [facility] ([place]) Comment on above: Performed By: #### T OXSC ####[address] [place], [place] [address] Calcium 9.6 mg/dL Normal 8.4-10.2 [facility] ([place] Comment on above: Performed By: #### Virgil OXSC ####[address] [place], [place] [address] Chloride 99 mmol/L Normal 98-107 [facility] ([place] Comment on above: Performed By: #### T OXSC ####[address] [place], [place] [address] CO2 30 mmol/L Normal 23-31 [facility] ([place] Comment on above: Performed By: #### Virgil OXSC ####[address] [place], [place] [address] Creatinine 1.11 mg/dL High 0.55-1.02 [facility] ([place] Comment on above: Performed By: #### Virgil OXSC ####[address] [place], [place] [address] Electrolyte Balance 9.0 mEq/L Normal [facility] ([place]) Comment on above: Performed By: #### Virgil OXSC ####[address] [place], [place] [address] Globulin 3.5 G/dL Normal [facility] ([place] Comment on above: Performed By: #### Virgil OXSC ####[address] [place], [place] [address] Glucose mass conc 160 mg/dL High 83-110 [facility] ([place] Comment on above: Performed By: #### T OXSC ####[address] [place], [place] [address] Potassium molar conc 4.3 mmol/L Normal 3.5-5.1 [facility] ([place]) Comment on above: Performed By: #### T OXSC ####[address] [place], [place] [address] Protein 7.5 G/dL Normal 6.4-8.2 [facility] ([place] Comment on above: Performed By: #### T OXSC ####[address] [place], [place] [address] Sodium 138 mmol/L Normal 136-145 [facility] ([place] Comment on above: Performed By: #### T OXSC ####[address] [place], [place] [address] Urea nitrogen 21 mg/dL High 7-18 [facility] ([place] Comment on above: Performed By: #### T OXSC ####[address] [place], [place] [address] LIPIDon 10-09-2017 Cholesterol 168 mg/dL Normal 0-200 [facility] ([place] Comment on above: Result Comment: Chol esterol Reference Interval:Less than 200 [id number] Borderline high [id number] and above High risk Performed By: #### L IPID, CMP, GFR ####[place] [address] HDL Cholesterol 37 mg/dL Low 40-60 [facility] ([place] Comment on above: Performed By: #### L IPID, CMP, GFR ####[place] [address] LDL Cholesterol 84 mg/dL Normal 0-130 [facility] ([place] Comment on above: Performed By: #### L IPID, CMP, GFR ####[place] [address] Triglyceride 237 mg/dL High 0-150 [facility] ([place] Comment on above: Result Comment: Trig lyceride Reference Interval:Less than 150 [id number] Borderline high [id number] High [id number] or higher Very high risk Performed By: #### L IPID, CMP, GFR ####[place] [address] TOXSCon 09-26-2017 QC TOXSC Valid Normal [facility] ([place] Comment on above: Performed By: #### T OXSC ####[address] [place], [place] [address] U Ampheta (AO) Negative [facility] ([place]) Comment on above: Performed By: #### T OXSC ####H[address] [place], [place] [address] U Glo (AO) Negative [facility] ([place] Comment on above: Performed By: #### T OXSC ####[address] [place], [place] [address] U Ryan (AO) Negative [facility] ([place] Comment on above: Performed By: #### T OXSC ####H[address] [place], [place] [address] U Cannab (AO) Negative [facility] ([place] Comment on above: Performed By: #### T OXSC ####[address] [place], [place] [address] U Cocaine (AO) Negative [facility] ([place] Comment on above: Performed By: #### T OXSC ####H[address] [place], [place] [address] U Methadone (AO) Negative [facility] ([place] Comment on above: Performed By: #### T OXSC ####[address] [place], [place] [address] U PCP (AO) Negative [facility] ([place] Comment on above: Performed By: #### T OXSC ####Hiram [address] [place], [place] [address] U TCA (AO) Negative [facility] ([place] Comment on above: Performed By: #### T OXSC ####[id number] [place], [place] [address] Urine Opiates (AO) Negative [facility] ([place]) Comment on above: Performed By: #### T OXSC ####Hiram [address] [place], [place] [address] .GFRon 04-30-2017 GFR 80 ml/min/1.73sqm Formerly [facility] ([place]) Comment on above: Result Comment: GFR Population mean for , Non- Americans Ages 20-29 = 116 mL/min/1.73 sq.m. Ages 30-39 = 107 mL/min/1.73 sq.m. Ages 40-49 = 99 mL/min/1.73 sq.m. Ages 50-59 = 93 mL/min/1.73 sq.m. Ages 60-69 = 85 mL/min/1.73 sq.m. Ages 70+ = 75 mL/min/1.73 sq.m.Chronic Kidney Disease: Less than 60 mL/min/1.73 square metersEnd Stage Renal Disease: Less than 15 mL/min/1.73 square meters Performed By: #### T SH, LIPID, CMP, GFR, A1C ####Hiram [address] [place], [place] [address] GFR Non- >60 Normal [facility] ([place]) Comment on above: Result Comment: GFR Population mean for , Non- Americans Ages 20-29 = 116 mL/min/1.73 sq.m. Ages 30-39 = 107 mL/min/1.73 sq.m. Ages 40-49 = 99 mL/min/1.73 sq.m. Ages 50-59 = 93 mL/min/1.73 sq.m. Ages 60-69 = 85 mL/min/1.73 sq.m. Ages 70+ = 75 mL/min/1.73 sq.m.Chronic Kidney Disease: Less than 60 mL/min/1.73 square metersEnd Stage Renal Disease: Less than 15 mL/min/1.73 square meters Performed By: #### T SH, LIPID, CMP, GFR, A1C ####Hiram [address] [place], [place] [address] A1Con 04-30-2017 Hemoglobin A1c/Hemoglobin.total mass fraction (Bld) 6.7 % High 4.8-5.9 [facility] ([place]) Comment on above: Performed By: #### T SH, LIPID, CMP, GFR, A1C ####Hiram [address] [place], [place] [address] CMPon 04-30-2017 Alanine aminotransferase (ALT) 17 U/L Normal 10-35 [facility] ([place]) Comment on above: Performed By: #### T SH, LIPID, CMP, GFR, A1C ####Hiram [address] [place], [place] [address] Albumin 4.5 G/dL Normal 3.4-4.8 [facility] ([place]) Comment on above: Performed By: #### T SH, LIPID, CMP, GFR, A1C ####Hiram [address] [place], [place] [address] Albumin/Globulin Ratio 1.7 {ratio} Normal 1.1-2.5 [facility] ([place]) Comment on above: Performed By: #### T SH, LIPID, CMP, GFR, A1C ####Hiram [address] [place], [place] [address] Alk Phos 63 IU/L Normal 40-135 [facility] ([place]) Comment on above: Performed By: #### T SH, LIPID, CMP, GFR, A1C ####Hiram [address] [place], [place] [address] Aspartate aminotransferase (AST) 28 U/L Normal 10-40 [facility] ([place]) Comment on above: Performed By: #### T SH, LIPID, CMP, GFR, A1C ####Hiram [address] [place], [place] [address] Bili Total 0.4 mg/dL Normal 0.2-1.0 [facility] ([place]) Comment on above: Performed By: #### T SH, LIPID, CMP, GFR, A1C ####Hiram [address] [place], [place] [address] BUN/Creatinine Ratio 19 ratio Normal 7-27 [facility] ([place]) Comment on above: Performed By: #### T SH, LIPID, CMP, GFR, A1C ####Hiram [address] [place], [place] [address] Calcium 9.7 mg/dL Normal 8.4-10.2 [facility] ([place]) Comment on above: Performed By: #### T SH, LIPID, CMP, GFR, A1C ####Hiram [address] [place], [place] [address] Chloride 98 mmol/L Normal 98-107 [facility] ([place]) Comment on above: Performed By: #### T SH, LIPID, CMP, GFR, A1C ####Hiram [address] [place], [place] [address] CO2 29 mmol/L Normal 23-31 [facility] ([place]) Comment on above: Performed By: #### T SH, LIPID, CMP, GFR, A1C ####Hiram [address] [place], [place] [address] Creatinine 0.8 mg/dL Normal 0.6-1.2 [facility] ([place]) Comment on above: Performed By: #### T SH, LIPID, CMP, GFR, A1C ####Hiram [address] [place], [place] [address] Electrolyte Balance 12.0 mEq/L Normal [facility] ([place]) Comment on above: Performed By: #### T SH, LIPID, CMP, GFR, A1C ####Hiram [address] [place], [place] [address] Globulin 2.6 G/dL Normal [facility] ([place]) Comment on above: Performed By: #### T SH, LIPID, CMP, GFR, A1C ####Hiram [address] [place], [place] [address] Glucose mass conc 131 mg/dL High 83-110 [facility] ([place]) Comment on above: Performed By: #### T SH, LIPID, CMP, GFR, A1C ####Hiram [address] [place], [place] [address] Potassium molar conc 4.3 mmol/L Normal 3.5-5.1 [facility] ([place]) Comment on above: Performed By: #### T SH, LIPID, CMP, GFR, A1C ####Hiram [address] [place], [place] [address] Protein 7.1 G/dL Normal 6.0-8.3 [facility] ([place]) Comment on above: Performed By: #### T SH, LIPID, CMP, GFR, A1C ####Hiram [address] [place], [place] [address] Sodium 139 mmol/L Normal 136-146 [facility] ([place]) Comment on above: Performed By: #### T SH, LIPID, CMP, GFR, A1C ####Hiram [address] [place], [place] [address] Urea nitrogen 15.2 mg/dL Normal 7.0-18.0 [facility] ([place]) Comment on above: Performed By: #### T SH, LIPID, CMP, GFR, A1C ####Hiram [address] [place], [place] [address] LIPIDon 04-30-2017 Cholesterol 172 mg/dL Normal 131-200 [facility] ([place]) Comment on above: Result Comment: Chol esterol Reference Interval:Less than 200 [id number] Borderline high kdoo416 and above High risk Performed By: #### T SH, LIPID, CMP, GFR, A1C ####Hiram [address] [place], [place] [address] HDL Cholesterol 56 mg/dL Normal 35-90 [facility] ([place]) Comment on above: Result Comment: HDL Reference Interval:Less than 40 Low - high risk60 or above Optimal/lowers risk Performed By: #### T SH, LIPID, CMP, GFR, A1C ####Hiram [address] [place], [place] [address] LDL Cholesterol 72 mg/dL Normal 0-130 [facility] ([place]) Comment on above: Result Comment: LDL is a calculated result and requires a 12-hr fast.LDL Reference Interval:Less than 100 [id number] Near or above -522 Borderline high xqbm414-449 High yymm896 and above Very high risk Performed By: #### T SH, LIPID, CMP, GFR, A1C ####Hiram [address] [place], [place] [address] Triglyceride 220 mg/dL High 40-150 [facility] ([place]) Comment on above: Result Comment: Trig lyceride Reference Interval:Less than 150 Jilfeg501-712 Borderline high onfr404-918 High ltet491 or higher Very high risk Performed By: #### T SH, LIPID, CMP, GFR, A1C ####Hiram [address] [place], [place] [address] MA MAMMOGRAM SCREENING BILAT ERAL W/TOMOon 04-30-2017 MA MAMMOGRAM SCREENING BILATERAL W/BRIANA ORIGINALFROM:HIRAM [place] [id number] [place], [place] [address]Vftwp: [phone] PROCEDURE FOR:TAMICA SOLANO [place], [place] [address]Hiwm: [phone]#: [id number]#: [id number]#: [id number]: 2Age: 77 TO:LEONELA NEWMAN DO[address] [place], [place] [address] #[id number] DIGITAL SCREENING MAMMOGRAM 3D/2D WITH CAD WITH MEDIOLATERAL OBLIQUE CRANIOCAUDAL: 04/30/2017Comparison is made to exams dated: 12/15/2013 mammogram and 07/30/2012 mammogram - [facility]. There are scattered fibroglandular elements in both breasts. Current study was also evaluated with a Computer Aided Detection (CAD) system. There are benign calcifications in both breasts. No significant masses, calcifications, or other findings are seen in either breast. There has been no significant interval change. IMPRESSION: BENIGNThere is no mammographic evidence of malignancy. A 1 year screening mammogram is recommended. I have personally reviewed the images of the examination and agree with the findings and interpretation. ROSSANA STOVER [facility],nf/penrad: 018 13:00:43 Scrap Charger: MARTITA REILLY (Krunal)(M), [facility]: [facility] BI-RADS 1&2 Mammogram BI-RADS: 2 Benign Normal [facility] ([place]) TSHon 04-30-2017 Thyroid stimulating hormone (TSH) 2.69 mcIU/mL Normal 0.27-4.20 [facility] ([place]) Comment on above: Performed By: #### T SH, LIPID, CMP, GFR, A1C ####[place] [address] [place], [place] [address] TOXSCon 04-10-2017 QC TOXSC Valid Normal [facility] ([place]) Comment on above: Performed By: #### T OXSC ####Hiram [address] [place], [place] [address] U Ampheta (AO) Negative [facility] ([place]) Comment on above: Performed By: #### T OXSC ####Hiram [address] [place], [place] [address] U Glo (AO) Negative [facility] ([place]) Comment on above: Performed By: #### T OXSC ####Hiram [address] [place], [place] [address] U Ryan (AO) Negative [facility] ([place]) Comment on above: Performed By: #### T OXSC ####Hiram [address] [place], [place] [address] U Cannab (AO) Negative [facility] ([place]) Comment on above: Performed By: #### T OXSC ####Hiram [address] [place], [place] [address] U Cocaine (AO) Negative [facility] ([place]) Comment on above: Performed By: #### T OXSC ####Hiram [address] [place], [place] [address] U Methadone (AO) Negative [facility] ([place]) Comment on above: Performed By: #### T OXSC ####Hiram [address] [place], [place] [address] U PCP (AO) Negative [facility] ([place]) Comment on above: Performed By: #### T OXSC ####Hiram [address] [place], [place] [address] U TCA (AO) Negative [facility] ([place]) Comment on above: Performed By: #### T OXSC ####Hiram [address] [place], [place] [address] Urine Opiates (AO) Negative [facility] ([place]) Comment on above: Performed By: #### T OXSC ####Hiram [address] [place], [place] [address] US SOFT TISSUE MASS CHEST WA LL UPPER BACKon 11-16-2016 US SOFT TISSUE MASS CHEST WALL UPPER BACK ORIGINALLeft chest wall ultrasound HISTORY: Palpable mass in left chest wall. FINDINGS: Focused ultrasonography of the left chest palpable region is performed. There is a fairly homogeneous isoechoic to subcutaneous fat ovoid mass in the subcutaneous tissues measuring 4.9 x 4.6 x 1.7 cm. This is consistent with a lipoma. No abnormal vascularity is noted in this mass. IMPRESSION: Approximately 5 cm left chest wall subcutaneous lipoma. Interpreted By: Mello Cronin MDPreliminary Report By: Mello Cronin MDElectronically Signed By: Mello Cronin MD Dictated Date: 11/16/2016 2:43:12 PM Prelim Date: 11/16/2016 2:43:12 PM Sign Date: 11/16/2016 2:44:15 PM Normal [facility] ([place]) Culture, urine Bacteria identified Cx Nom (U) Culture exhibits no growth. [facility] Work Phone: Vital Signs Date Time Vital Sign Value Performing Clinician Facility 10-05-2024 14:01-0400 Body temperature 98.1 [degF] Dr. Dominique Lang MD Work Phone: [facility] 10-05-2024 14:01-0400 Diastolic blood pressure 80 mm[Hg] Dr. Dominique smith MD Work Phone: [facility] 10-05-2024 14:01-0400 Heart rate 83 /min Dr. Dominique Lang MD Work Phone: [facility] 10-05-2024 14:01-0400 Respiratory rate 20 /min Dr. Dominique Lang MD Work Phone: [facility] 10-05-2024 14:01-0400 SaO2% (BldA) [Mass fraction] 92 % Dr. Dominique Lang MD Work Phone: [facility] 10-05-2024 14:01-0400 Systolic blood pressure 174 mm[Hg] Dr. Dominique nelson MD Work Phone: [facility] 10-05-2024 10:33-0400 Body mass index (BMI) [Ratio] 26.6 kg/m2 Dr. Dominique Lang MD Work Phone: [facility] 10-05-2024 10:33-0400 Body weight 55.[address] Dominique Lang MD Work Phone: [facility] 10-05-2024 09:51-0400 Body height 144.[address] Dominique Lang MD Work Phone: [facility] 08-03-2024 00:03-0400 SaO2% (BldA) [Mass fraction] 91 % [facility] Comment on above: Order Comment: Specimen Type: ARTERIAL B LOOD SPECIMENOrdering Facility: [facility] Address: [address] [place] [address] Performed By: #### A LLBG ####[facility]ORATORYCLIA [id number] [place] [address] [place] 08-01-2024 03:00-0400 Body temperature 97.8 [degF] Dr. Dominique Lang MD Work Phone: [facility] 08-01-2024 03:00-0400 Diastolic blood pressure 73 mm[Hg] Dr. Dominique smith MD Work Phone: [facility] 08-01-2024 03:00-0400 Heart rate 83 /min Dr. Dominique Lang MD Work Phone: [facility] 08-01-2024 03:00-0400 Respiratory rate 20 /min Dr. Dominique Lang MD Work Phone: [facility] 08-01-2024 03:00-0400 SaO2% (BldA) [Mass fraction] 93 % Dr. Dominique Lang MD Work Phone: [facility] 08-01-2024 03:00-0400 Systolic blood pressure 180 mm[Hg] Dr. Dominique nelson MD Work Phone: [facility] 07-31-2024 23:35-0400 Body height 144.[address] Dominique Lang MD Work Phone: [facility] 07-31-2024 23:35-0400 Body mass index (BMI) [Ratio] 30.1 kg/m2 Dr. Dominique Lang MD Work Phone: 5(781)925-158666 [place] [address] 07-31-2024 23:35-0400 Body weight 63.[address] Dominique Lang MD Work Phone: 2(680)391-107166 [place] [address] 06-30-2024 08:14-0400 Body mass index (BMI) [Ratio] 27.6 kg/m2 Dr. Dominique Lang MD Work Phone: 0(974)110-647436 [place] [address] 06-30-2024 08:14-0400 Body temperature 97.4 [degF] Dr. Dominique Lang MD Work Phone: 0(642)319-022636 [place] [address] 06-30-2024 08:14-0400 Body weight 58.[address] Dominique Lang MD Work Phone: 6(357)435-326036 [place] [address] 06-30-2024 08:14-0400 Diastolic blood pressure 83 mm[Hg] Dr. Dominique smith MD Work Phone: 5(702)585-815866 [place] [address] 06-30-2024 08:14-0400 Heart rate 78 /min Dr. Dominique Lang MD Work Phone: 1(928)508-720536 [place] [address] 06-30-2024 08:14-0400 Respiratory rate 18 /min Dr. Dominique Lang MD Work Phone: 9(127)402-648636 [place] [address] 06-30-2024 08:14-0400 SaO2% (BldA) [Mass fraction] 95 % Dr. Dominique Lang MD Work Phone: 5(924)934-764466 [place] [address] 06-30-2024 08:14-0400 Systolic blood pressure 138 mm[Hg] Dr. Dominique nelson MD Work Phone: 0(757)116-216566 [place] [address] 06-16-2024 13:11-0400 Body height 144.[address] Dominique Lang MD Work Phone: 8(220)428-680636 [place] [address] 06-16-2024 13:11-0400 Body mass index (BMI) [Ratio] 27.6 kg/m2 Dr. Dominique Lang MD Work Phone: [facility] 06-16-2024 13:11-0400 Body weight 58.[address] Dominique Lang MD Work Phone: [facility] 06-16-2024 13:11-0400 Diastolic blood pressure 71 mm[Hg] Dr. Dominique smith MD Work Phone: [facility] 06-16-2024 13:11-0400 Heart rate 74 /min Dr. Dominique Lang MD Work Phone: [facility] 06-16-2024 13:11-0400 Respiratory rate 16 /min Dr. Dominique Lang MD Work Phone: 6(799)718-851166 [place] [address] 06-16-2024 13:11-0400 Systolic blood pressure 143 mm[Hg] Dr. Dominique nelson MD Work Phone: 9(138)736-336866 [place] [address] 04-01-2024 08:47-0500 Body height 144.[address] Dominique Lang MD Work Phone: [facility] 04-01-2024 08:47-0500 Body mass index (BMI) [Ratio] 28.5 kg/m2 Dr. Dominique Lang MD Work Phone: 8(463)888-560266 [place] [address] 04-01-2024 08:47-0500 Body temperature 97.3 [degF] Dr. Dominique Lang MD Work Phone: 2(462)093-881066 [place] [address] 04-01-2024 08:47-0500 Body weight 59.[address] Dominique Lang MD Work Phone: [facility] 04-01-2024 08:47-0500 Diastolic blood pressure 86 mm[Hg] Dr. Dominique smith MD Work Phone: [facility] 04-01-2024 08:47-0500 Heart rate 85 /min Dr. Dominique Lang MD Work Phone: [facility] 04-01-2024 08:47-0500 Respiratory rate 20 /min Dr. Dominique Lang MD Work Phone: [facility] 04-01-2024 08:47-0500 SaO2% (BldA) [Mass fraction] 94 % Dr. Dominique Lang MD Work Phone: [facility] 04-01-2024 08:47-0500 Systolic blood pressure 130 mm[Hg] Dr. Dominique nelson MD Work Phone: [facility] 06-11-2023 15:01-0400 Body height 144.[address] Dominique Lang Work Phone: [facility] 06-11-2023 15:01-0400 Body mass index (BMI) [Ratio] 29.5 kg/m2 Dr. Dominique Lang Work Phone: [facility] 06-11-2023 15:01-0400 Body weight 61.[address] Dominique Lang Work Phone: [facility] 06-11-2023 15:01-0400 Diastolic blood pressure 80 mm[Hg] Dr. Dominique smith Work Phone: [facility] 06-11-2023 15:01-0400 Heart rate 97 /min Dr. Dominique Lang Work Phone: [facility] 06-11-2023 15:01-0400 Respiratory rate 16 /min Dr. Dominique Lang Work Phone: [facility] 06-11-2023 15:01-0400 Systolic blood pressure 142 mm[Hg] Dr. Dominique nelson Work Phone: [facility] 06-10-2023 08:04-0400 Body mass index (BMI) [Ratio] 26.6 kg/m2 Dr. Dominique Lang Work Phone: [facility] 06-10-2023 08:04-0400 Body temperature 98 [degF] Dr. Dominique Lang Work Phone: [facility] 06-10-2023 08:04-0400 Body weight 55.[address] Dominique Lang Work Phone: [facility] 06-10-2023 08:04-0400 Diastolic blood pressure 75 mm[Hg] Dr. Dominique smith Work Phone: [facility] 06-10-2023 08:04-0400 Heart rate 95 /min Dr. Dominique Lang Work Phone: [facility] 06-10-2023 08:04-0400 Respiratory rate 20 /min Dr. Dominique Lang Work Phone: [facility] 06-10-2023 08:04-0400 SaO2% (BldA) [Mass fraction] 94 % Dr. Dominique Lang Work Phone: [facility] 06-10-2023 08:04-0400 Systolic blood pressure 139 mm[Hg] Dr. Dominique nelson Work Phone: [facility] 07-07-2022 13:42-0400 Body temperature 97.9 [degF] Dr. Dominique Lang Work Phone: [facility] 07-07-2022 13:42-0400 Diastolic blood pressure 59 mm[Hg] Dr. Dominique smith Work Phone: [facility] 07-07-2022 13:42-0400 Heart rate 67 /min Dr. Dominique Lang Work Phone: [facility] 07-07-2022 13:42-0400 Respiratory rate 17 /min Dr. Dominique Lang Work Phone: [facility] 07-07-2022 13:42-0400 SaO2% (BldA) [Mass fraction] 98 % Dr. Dominique Lang Work Phone: [facility] 07-07-2022 13:42-0400 Systolic blood pressure 128 mm[Hg] Dr. Dominique nelson Work Phone: [facility] 07-07-2022 11:04-0400 Body height 144.[address] Dominique Lang Work Phone: [facility] 07-07-2022 11:04-0400 Body mass index (BMI) [Ratio] 28.8 kg/m2 Dr. Dominique Lang Work Phone: [facility] 07-07-2022 11:04-0400 Body weight 60.[address] Dominique Lang Work Phone: [facility] 04-26-2022 15:33-0500 Body height 144.[address] Dominique Lang Work Phone: [facility] 04-26-2022 15:33-0500 Body mass index (BMI) [Ratio] 28.5 kg/m2 Dr. Dominique Lang Work Phone: [facility] 04-26-2022 15:33-0500 Body weight 59.[address] Doimnique Lang Work Phone: [facility] 04-26-2022 15:33-0500 Diastolic blood pressure 86 mm[Hg] Dr. Dominique smith Work Phone: [facility] 04-26-2022 15:33-0500 Heart rate 90 /min Dr. Dominique Lang Work Phone: [facility] 04-26-2022 15:33-0500 Respiratory rate 18 /min Dr. Dominique Lang Work Phone: [facility] 04-26-2022 15:33-0500 SaO2% (BldA) [Mass fraction] 98 % Dr. Dominique Lang Work Phone: [facility] 04-26-2022 15:33-0500 Systolic blood pressure 138 mm[Hg] Dr. Dominique nelson Work Phone: [facility] 09-21-2021 20:23-0400 Diastolic blood pressure 60 mm[Hg] [facility] Work Phone: 09-21-2021 20:23-0400 Heart rate 72 /min [facility] Work Phone: 09-21-2021 20:23-0400 Respiratory rate 16 /min [facility] Work Phone: 09-21-2021 20:23-0400 SaO2% (BldA) [Mass fraction] 93 % [facility] Work Phone: 09-21-2021 20:23-0400 Systolic blood pressure 137 mm[Hg] [facility] Work Phone: 09-21-2021 18:47-0400 Body height 144.78 cm [facility] Work Phone: 09-21-2021 18:47-0400 Body mass index (BMI) [Ratio] 26.2 kg/m2 [facility] Work Phone: 09-21-2021 18:47-0400 Body temperature 98.2 [degF] [facility] Work Phone: 09-21-2021 18:47-0400 Body weight 54.88 kg [facility] Work Phone: 08-16-2021 19:02-0400 Body height 144.[address] Dominique Lang Work Phone: [facility] Work Phone: 08-16-2021 19:02-0400 Body mass index (BMI) [Ratio] 28.1 kg/m2 Dr. Dominique Lang Work Phone: [facility] Work Phone: 08-16-2021 19:02-0400 Body temperature 97.5 [degF] Dr. Dominique Lang Work Phone: [facility] Work Phone: 08-16-2021 19:02-0400 Body weight 58.[address] Dominique Lang Work Phone: [facility] Work Phone: 08-16-2021 19:02-0400 Diastolic blood pressure 67 mm[Hg] Dr. Dominique smith Work Phone: [facility] Work Phone: 08-16-2021 19:02-0400 Heart rate 85 /min Dr. Dominique Lang Work Phone: [facility] Work Phone: 08-16-2021 19:02-0400 Respiratory rate 18 /min Dr. Dominique Lang Work Phone: [facility] Work Phone: 08-16-2021 19:02-0400 SaO2% (BldA) [Mass fraction] 98 % Dr. Dominique Lang Work Phone: [facility] Work Phone: 08-16-2021 19:02-0400 Systolic blood pressure 146 mm[Hg] Dr. Dominique nelson Work Phone: [facility] Work Phone: 06-10-2021 11:01-0400 Body temperature 98.6 [degF] Dr. Dominique Lang Work Phone: [facility] Work Phone: 06-10-2021 11:01-0400 Diastolic blood pressure 62 mm[Hg] Dr. Dominique smith Work Phone: [facility] Work Phone: 06-10-2021 11:01-0400 Heart rate 72 /min Dr. Dominique Lang Work Phone: [facility] Work Phone: 06-10-2021 11:01-0400 Respiratory rate 18 /min Dr. Dominique Lang Work Phone: [facility] Work Phone: 06-10-2021 11:01-0400 SaO2% (BldA) [Mass fraction] 96 % Dr. Dominique Lang Work Phone: [facility] Work Phone: 06-10-2021 11:01-0400 Systolic blood pressure 129 mm[Hg] Dr. Dominique nelson Work Phone: [facility] Work Phone: 06-08-2021 10:45-0400 Inhaled oxygen flow rate 3 L/min [facility] Work Phone: 06-07-2021 09:00-0400 Body height 144.[address] Dominique Lang Work Phone: [facility] Work Phone: 06-07-2021 09:00-0400 Body weight 64.[address] Dominique Lang Work Phone: [facility] Work Phone: 05-26-2021 14:27-0500 Inhaled oxygen concentration 97 % [facility] Work Phone: 05-26-2021 13:27-0500 Inhaled oxygen concentration 97 % Dr. Dominique Lang Work Phone: [facility] Work Phone: 05-23-2021 15:04-0500 Body temperature 97.2 [degF] Dr. Dominique Lang Work Phone: [facility] Work Phone: 05-23-2021 15:04-0500 Diastolic blood pressure 66 mm[Hg] Dr. Dominique smith Work Phone: [facility] Work Phone: 05-23-2021 15:04-0500 Heart rate 98 /min Dr. Dominique Lang Work Phone: [facility] Work Phone: 05-23-2021 15:04-0500 Respiratory rate 16 /min Dr. Dominique Lang Work Phone: [facility] Work Phone: 05-23-2021 15:04-0500 SaO2% (BldA) [Mass fraction] 92 % Dr. Dominique Lang Work Phone: [facility] Work Phone: 05-23-2021 15:04-0500 Systolic blood pressure 149 mm[Hg] Dr. Dominique nelson Work Phone: [facility] Work Phone: 05-22-2021 15:00-0500 Body temperature 98.8 [degF] Dr. Dominique Lang Work Phone: [facility] Work Phone: 05-22-2021 15:00-0500 Diastolic blood pressure 43 mm[Hg] Dr. Dominique smith Work Phone: [facility] Work Phone: 05-22-2021 15:00-0500 Heart rate 81 /min Dr. Dominique Lang Work Phone: [facility] Work Phone: 05-22-2021 15:00-0500 Respiratory rate 14 /min Dr. Dominique Lang Work Phone: [facility] Work Phone: 05-22-2021 15:00-0500 SaO2% (BldA) [Mass fraction] 95 % Dr. Dominique Lang Work Phone: [facility] Work Phone: 05-22-2021 15:00-0500 Systolic blood pressure 117 mm[Hg] Dr. Dominique nelson Work Phone: [facility] Work Phone: 05-22-2021 08:56-0500 Body weight 65.[address] Dominique Lang Work Phone: [facility] Work Phone: 05-19-2021 00:34-0500 Body mass index (BMI) [Ratio] 31.1 kg/m2 Dr. Dominique Lang Work Phone: [facility] Work Phone: 04-18-2021 07:11-0500 Body weight 64.[address] Dominique Lang Work Phone: [facility] Work Phone: 04-18-2021 07:11-0500 Diastolic blood pressure 64 mm[Hg] Dr. Dominique smith Work Phone: [facility] Work Phone: 04-18-2021 07:11-0500 Heart rate 68 /min Dr. Dominique Lang Work Phone: [facility] Work Phone: 04-18-2021 07:11-0500 Respiratory rate 16 /min Dr. Dominique Lang Work Phone: [facility] Work Phone: 04-18-2021 07:11-0500 SaO2% (BldA) [Mass fraction] 97 % Dr. Dominique Lang Work Phone: [facility] Work Phone: 04-18-2021 07:11-0500 Systolic blood pressure 120 mm[Hg] Dr. Dominique nelson Work Phone: [facility] Work Phone: 04-14-2020 07:42-0500 Body mass index (BMI) [Ratio] 33.7 kg/m2 Dr. Dominique Lang Work Phone: [facility] Work Phone: Encounters Encounter Date Encounter Type Care Provider Facility Start: 10-05-2024 End: 10-05-2024 Emergency department patient visit Dr. Dominique Lang MD Work Phone: -Emergency Department Work Phone: Start: 09-16-2024 End: 09-16-[address] Dominique Lang MD Work Phone: -[facility] [place] Start: 09-16-2024 End: 09-16-[address] [facility] Work Phone: Start: 09-16-2024 End: 09-16-2024 ambulatory Dominique Lang Facility:[facility] Start: 08-24-2024 ambulatory EVAN ROMERO Facility :[facility] Start: 08-24-2024 End: 08-24-2024 Subsequent hospital visit by physician [facility] [place] [facility] Comment on above: Subdural hematoma (H CC) [S06.5XAA] Start: 08-06-2024 End: 08-21-2024 Evaluation and management of inpatient ALEKSEY MORE Facility:[facility] Start: 08-01-2024 End: 08-06-2024 Evaluation and management of inpatient ECTOR GONZALEZ Facility:[facility] Start: 07-31-2024 End: 08-01-2024 Emergency department patient visit Dr. Dominique Lang MD Work Phone: -Emergency Department Work Phone: Start: 07-24-2024 Non-patient / Non-visit Dr. Rohan sauceda MD -[facility] Start: 07-24-2024 End: 07-24-[address] Dominique Lang MD Work Phone: [facility] Work Phone: Start: 07-24-2024 End: 07-24-2024 Patient encounter procedure Nargis Prajapati NP-C -Cardiovascular Services Work Phone: Start: 07-24-2024 End: 07-24-2024 ambulatory Dominique Lang Facility:[facility] Start: 06-30-2024 End: 06-30-2024 Patient encounter procedure Nargis LANGEC -[facility] Work Phone: Start: 06-30-2024 End: 06-30-2024 ambulatory Dominique Lang Facility:[facility] Start: 06-16-2024 End: 06-16-2024 Patient encounter procedure Cande ESCOBAR -[facility] Work Phone: Start: 06-16-2024 End: 06-16-2024 ambulatory Dominique Lang Facility:[facility] Start: 06-01-2024 End: 06-01-[address] Dominique Lang MD Work Phone: [facility] Work Phone: Start: 06-01-2024 End: 06-01-[address] Dominique Lang MD -Nuclear Medicine, [facility] Work Phone: Start: 06-01-2024 End: 06-01-2024 ambulatory Dominique Lang Facility:[facility] Start: 05-05-2024 End: 05-05-[address] Dominique Lang MD -Laboratory, [facility] Start: 05-05-2024 End: 05-05-2024 ambulatory Dominique Lang Facility:[facility] Start: 04-14-2024 End: 04-14-2024 Patient encounter procedure Nargis PRIETO -Sleep Lab Work Phone: Start: 04-14-2024 End: 04-14-2024 ambulatory Dominique Lang Facility:[facility] Start: 04-01-2024 End: 04-01-2024 Patient encounter procedure Nargis PRIETO -[facility] Work Phone: Start: 04-01-2024 End: 04-01-2024 ambulatory Dominique Lang Facility:[facility] Start: 01-15-2024 End: 01-15-2024 ambulatory Dominique Lang Facility:[facility] Start: 01-01-2024 End: 01-01-2024 ambulatory Dominique Lang Facility:[facility] Start: 12-13-2023 End: 12-13-2023 ambulatory Dominique Lang Facility:[facility] Start: 12-11-2023 End: 12-11-2023 ambulatory Dominique Lang Facility:[facility] Start: 12-10-2023 End: 12-10-2023 ambulatory Libertad Fernando NP Facility:[facility] Start: 12-10-2023 End: 12-10-2023 ambulatory Dominique Lang Facility:[facility] Start: 12-06-2023 End: 12-06-2023 Emergency department patient visit Dominique Lang Facility:[facility] Start: 10-11-2023 End: 10-11-2023 ambulatory Dominique Lang Facility:[facility] Start: 10-04-2023 End: 10-04-2023 ambulatory Dominique Lang Facility:[facility] Start: 07-11-2023 End: 07-11-[address] Dominique Lang Work Phone: [facility] Work Phone: Start: 07-11-2023 End: 07-11-[address] Dominique Lang Work Phone: [facility]-Sleep Lab Work Phone: Start: 06-21-2023 End: 06-21-[address] Dominique Lang Work Phone: [facility] Work Phone: Start: 06-21-2023 End: 06-21-[address] Dominique Lang Work Phone: [facility]-Sleep Lab Work Phone: Start: 06-11-2023 End: 06-11-[address] Dominique Lang Work Phone: [facility] Work Phone: Start: 06-10-2023 End: 06-10-[address] Dominique Lang Work Phone: [facility] Work Phone: Start: 05-24-2023 End: 05-24-2023 ambulatory [facility] Work Phone: Start: 05-24-2023 End: 05-24-2023 Patient encounter procedure [facility] Work Phone: Start: 01-09-2023 End: 01-09-2023 ambulatory [facility] Work Phone: Start: 01-09-2023 End: 01-09-2023 Patient encounter procedure [facility] Start: 08-29-2022 End: 08-29-[address] Dominique Lang Work Phone: [facility] Work Phone: Start: 08-29-2022 End: 08-29-[address] Dominique Lang Work Phone: [facility] Start: 07-07-2022 Non-patient / Non-visit Dr. Liliana Lang Work Phone: [facility] Start: 07-07-2022 End: 07-07-2022 Emergency department patient visit Dr. Dominique Lang Work Phone: [facility]-Emergency Department Start: 06-08-2022 End: 06-08-[address] Dominique Lang Work Phone: [facility] Work Phone: Start: 06-08-2022 End: 06-08-[address] Dominique Lang Work Phone: [facility] Start: 04-26-2022 End: 04-26-[address] Dominique Lang Work Phone: [facility] Start: 03-07-2022 End: 03-07-[address] Dominique Lang Work Phone: [facility] Start: 12-01-2021 End: 12-01-2021 ambulatory [facility] Work Phone: Start: 12-01-2021 End: 12-01-2021 Patient encounter procedure [facility], Specimen Start: 10-19-2021 End: 10-19-2021 Patient encounter procedure [facility] Start: 10-10-2021 Registered [facility] Therapy Start: 09-21-2021 End: 09-21-2021 Emergency department patient visit [facility]-Emergency Department Start: 08-16-2021 End: 08-16-2021 Emergency department patient visit Dr. Dominique Lang Work Phone: [facility]-Emergency Department Start: 08-11-2021 End: 08-11-[address] [facility] Start: 08-04-2021 End: 08-04-[address] Dominique Lang Work Phone: [facility] Start: 06-21-2021 End: 06-21-[address] Dominique Lang Work Phone: [facility] Start: 06-19-2021 End: 06-19-[address] Dominique Lang Work Phone: [facility] Start: 05-23-2021 End: 05-23-[address] Dominique Lang Work Phone: [facility]-Medical Out Start: 05-22-2021 End: 06-10-2021 Evaluation and management of inpatient Dr. Dominique Lang Work Phone: [facility]-Transitional Care Unit Start: 05-22-2021 Non-patient / Non-visit Dr. Liliana Lang Work Phone: [facility] Start: 05-21-2021 Non-patient / Non-visit Dr. Liliana Lang Work Phone: [facility] Start: 05-20-2021 Non-patient / Non-visit Dr. Liliana Lang Work Phone: [facility] Start: 05-19-2021 Non-patient / Non-visit Dr. Liliana Lang Work Phone: [facility] Start: 05-18-2021 Non-patient / Non-visit Dr. Liliana Lang Work Phone: [facility] Start: 05-18-2021 End: 05-22-2021 Evaluation and management of inpatient Dr. Dominique Lang Work Phone: [facility]-Medical Surgical 3 Start: 05-17-2021 Non-patient / Non-visit Dr. Liliana Lang Work Phone: [facility] Start: 05-17-2021 End: 05-17-[address] Dominique Lang Work Phone: [facility]-Cardiovascular Services Start: 04-18-2021 End: 04-18-[address] Dominique Lang Work Phone: [facility] Start: 10-09-2017 End: 10-14-2017 Patient encounter LEONELA NEWMAN Facility:[facility] Start: 09-26-2017 End: 10-01-2017 Patient encounter LEONELA NEWMAN Facility:[facility] Start: 04-30-2017 End: 05-01-2017 Patient encounter LEONELA NEWMAN Facility:[facility] Start: 04-10-2017 End: 04-15-2017 Patient encounter LEONELA NEWMAN Facility:[facility] Start: 11-16-2016 End: 11-17-2016 Patient encounter [facility]EL[facility] NEWMAN [facility] Procedures Date Procedure Procedure Detail Performing Clinician Start: 10-05-2024 X-ray of chest, PA a nd lateral views Dr. Dominique Lang MD Work Phone: Start: 10-05-[address] Dominique Lang MD Work Phone: Start: 09-16-2024 Urnls dip stick/tabl et reagent auto microscopy Dr. Dominique Lang MD Work Phone: Start: 09-16-[address] Dominique Lang MD Work Phone: Start: 09-16-2024 Serum inorganic phos phate measurement Dr. Dominique Lang MD Work Phone: Start: 09-16-2024 Urine microalbumin/creatinine ratio measurement Dr. Dominique Lang MD Work Phone: Start: 09-16-2024 Vitamin D, 25-hydrox y measurement Dr. Dominique Lang MD Work Phone: Comment on above: Vitamin D StatusDefi ciency: <20 ng/mL (50nmol/L)Insufficiency: 20-30 ng/mL (50-75 nmol/L)Sufficiency: 30-100 ng/mL (75-250 nmol/L)Toxicity: >100 ng/mL (>250 nmol/L) Start: 08-24-2024 Ct head/brain w/o co ntrast material Evan Oneail PA-C Work Phone: Start: 08-01-2024 CT of chest without contrast Dr. Dominique Lang MD Work Phone: Start: 08-01-2024 Antibody screen EVAN ONEAIL Comment on above: Order Comment: Speci men Type: BLOOD SPECIMENOrdering Facility: [facility] Address: [address] [place] [address] Performed By: #### T SCR ####[facility] BLOOD BANKCLIA [id number] [place] [address] [place] Start: 08-01-[address] Dominique Lang MD Work Phone: Start: 08-01-2024 Plain radiography of pelvis Dr. Dominique Lang MD Work Phone: Start: 08-01-2024 CT cervical spine wi thout contrast Dr. Dominique Lang MD Work Phone: Start: 08-01-[address] Dominique serra MD Work Phone: Start: 08-01-2024 CT of head without contrast Dr. Dominique Lang MD Work Phone: Start: 06-01-2024 Radionuclide gastric emptying study Dr. Dominique Lang MD Work Phone: Start: 05-05-[address] Dominique Lang MD Work Phone: Start: 05-05-2024 Urnls dip stick/tabl et reagent auto microscopy Dr. Dominique Lang MD Work Phone: Start: 05-05-2024 Measurement of renal function Dr. Dominique Lang MD Work Phone: Comment on above: GFR Calc Start: 05-05-[address] Dominique Lang MD Work Phone: Start: 05-05-2024 Vitamin D, 25-hydrox y measurement Dr. Dominique Lang MD Work Phone: Comment on above: Vitamin D 25(OH) Sta tus Range Deficiency <20 ng/mL (50nmol/L) Insufficiency 20 - 30 ng/mL (50 - 75 nmol/L) Sufficiency 30 - 100 ng/mL (75 - 250 nmol/L) Toxicity >100 ng/mL (>250 nmol/L) Start: 05-24-2023 Radiography of thora cic spine Start: 05-24-2023 X-ray of lumbar spin e, two or three views Start: 09-21-2021 CT of head without contrast Start: 08-16-2021 CT of head without contrast Dr. Dominique Lang Work Phone: Start: 08-04-2021 Radiologic examinati on of knee Dr. Dominique Lang Work Phone: Start: 06-08-2021 End: 06-08-[address] Dominique Lang Work Phone: Start: 05-29-2021 Diagnostic radiograp hy of abdomen Dr. Dominique Lang Work Phone: Start: 05-29-[address] Dominique Lang Work Phone: Start: 05-19-2021 Fluoroscopic guidance Nico Lang Work Phone: Start: 05-19-2021 Plain x-ray of pelvi s and lower extremity Dr. Dominique Lang Work Phone: Start: 05-19-2021 IM Kuldeep, Victoriano Nail [employer] (Left) Dr. Dominique Lang Work Phone: Start: 05-18-2021 End: 05-18-[address] Dominique Lang Work Phone: Start: 05-18-2021 Plain chest X-ray Dr. Saranya Lang Work Phone: Start: 05-18-2021 Plain x-ray of pelvi s and lower extremity Dr. Dominique Lang Work Phone: Start: 05-18-2021 CT of head without contrast Dr. Dominique Lang Work Phone: Start: 05-17-2021 Cardiovascular stres s test using pharmacologic stress agent Dr. Dominique Lang Work Phone: Start: 11-17-2014 History of placement of stent for coronary artery disease History of coronary artery stent placement Dr. Dominique Lang Work Phone: Comment on above: PCI-COOKIE-LCx w/ 2.5 x 20 mm Promus Stent and COOKIE-LM w/ 4.0 x 16 mm Promus Stent 11/17/2014 Start: 10-16-2001 History of coronary artery bypass grafting H/O coronary artery bypass surgery Cande ESCOBAR Comment on above: CABG x 2 Sequential BURCH- LAD and D1 10/2001 Urine culture Viral antigen assay Plan of Treatment Date Care Activity Detail Author Start: 09-22-2031 Urine microalbumin profile DTaP,Tdap,Td Vaccine (5 - Td or Tdap) [facility] Start: 10-05-2024 [facility] Start: 10-05-2024 [facility] Start: 08-27-2024 End: 08-27-2024 Patient encounter procedure 08/27/2024 1:30 PM EDT Office Visit [facility] [address] [address] Mouna Palm, SAMANTHA.BREAKER MACHINE OPERATOR [address] [facility] [place] [address] 3-4 week SDH f/u, CT done 08/24 [facility] Comment on above: 3-4 week SDH f/u, CT done 08/24 Start: 08-01-2024 [facility] Start: 06-02-2024 Covid-19 Vaccine ( season) Covid-19 Vaccine () [facility] Start: 03-18-2024 Advance Directive Discussion Advance Directive Discussion [facility] Start: 09-21-2021 Simple repair f/e/e/n/l/m 2.5cm/< RPR F/E/E/N/L/M 2.5 CM/< [facility] Work Phone: Start: 06-11-2021 Development of care plan [facility] Work Phone: Start: 06-10-2021 Patient discharge [facility] Work Phone: Start: 06-07-2021 Referral to service [facility] Work Phone: Start: 05-26-2021 Application of elast ic bandage [facility] Work Phone: Start: 05-23-2021 Development of care plan [facility] Work Phone: Start: 05-23-2021 Developing a treatme nt plan [facility] Work Phone: Start: 05-23-2021 Administration of bl ood product [facility] Work Phone: Start: 05-23-2021 [facility] Work Phone: Start: 05-23-2021 Speech therapy assessment [facility] Work Phone: Start: 05-23-2021 [facility] Work Phone: Start: 05-22-2021 [facility] Work Phone: Start: 05-22-2021 End: 05-22-2021 Wound care [facility] Work Phone: Start: 05-22-2021 Following clinical pathway protocol [facility] Work Phone: Start: 05-22-2021 Oxygen therapy [facility] Work Phone: Start: 05-22-2021 Scheduling [facility] Work Phone: Start: 05-22-2021 Wound care [facility] Work Phone: Start: 05-22-2021 Admission procedure [facility] Work Phone: Start: 05-22-2021 Measuring intake and output [facility] Work Phone: Start: 05-22-2021 Patient referral to dietitian [facility] Work Phone: Start: 05-22-2021 Referral to occupati onal therapist [facility] Work Phone: Start: 05-22-2021 Referral to service [facility] Work Phone: Start: 05-22-2021 Vital signs measurements [facility] Work Phone: Start: 05-22-2021 End: 05-22-2021 [facility] Work Phone: Start: 2006 Screening for osteoporosis Bone Density Screening [facility] Start: 05-02-2002 Hemoglobin A1c measurement HbA1C [facility] Start: 1959 Depression Screening Depression Scre ening [facility] Start: 1959 Hepatitis B surface antibody level LDL Cholesterol [facility] Start: 1951 Diabetic foot examination Diabetic Foot Exam [facility] Start: 1951 Glaucoma screening Dilated Retinal E xam [facility] Start: 1951 Hepatitis B screening Urine Albumin:Creatinine Ratio [facility] Patient Education [facility] Work Phone: Patient referral [facility] Work Phone: Immunizations Immunization Date Immunization Notes Care Provider Fa nancyty 09-21-2021 tetanus toxoid, redu davi diphtheria toxoid, and acellular pertussis vaccine, adsorbed [facility] 12-13-2020 Covid (Pfizer) Dr. Dominique craft Work Phone: [facility] 06-09-2020 Covid (Pfizer) Dr. Dominique craft Work Phone: [facility] 05-19-2020 Covid (Pfizer) Dr. Dominique craft Work Phone: [facility] 12-13-2016 tetanus toxoid, redu davi diphtheria toxoid, and acellular pertussis vaccine, adsorbed Dr. Dominique Lang Work Phone: [facility] Payers Date Payer Category Payer Medicare (Managed Care) O [employer] O [id number] 2023 Unknown [id number] 2023 Self-pay [id number] 2021 Private Health Insurance [id number] 2010 Medicare [id number] Medicare [id number] Unknown [id number] .462 Unknown [id number] [id number] .462 Unknown [id number] 2.16.840.1.817564.3.579.2 .462 Unknown [id number] 2.16.840.1.369677.3.579.2 .462 Unknown [id number] 2.16.840.1.984504.3.579.2 .462 Unknown [id number] 2.16.840.1.259146.3.579.2 .462 Unknown [id number] 2.16.840.1.270547.3.579.2 .462 Unknown [id number] 2.16.840.1.646200.3.579.2 .462 Unknown [id number] 2.16.840.1.743918.3.579.2 .462 Unknown [id number] 2.16.840.1.601796.3.579.2 .462 Unknown [id number] 2.16.840.1.383365.3.579.2 .462 Unknown [id number] 2.16.840.1.068858.3.579.2 .462 Unknown [id number] 2.16.840.1.760787.3.579.2 .462 Unknown [id number] 2.16.840.1.345142.3.579.2 .462 Unknown [id number] 2.16.840.1.674033.3.579.2 .462 Unknown [id number] 2.16.840.1.738093.3.579.2 .462 Unknown [id number] 2.16.840.1.796893.3.579.2 .462 Unknown [id number] 2.16.840.1.891583.3.579.2 .462 Unknown [id number] 2.16.840.1.885702.3.579.2 .462 Unknown [id number] 2.16.840.1.707972.3.579.2 .462 Unknown [id number] 2.16.840.1.848896.3.579.2 .462 Social History Date Type Detail Facility Start: 05-22-2021 End: 06-11-2023 Tobacco smoking status [facility]IS Unknown if ever smoked [facility] - [facility] Start: 1940 Sex Assigned At Female [facility] Start: 12-06-2023 End: 10-05-2024 Tobacco smoking status NHIS Never smoked tobacco (finding) [facility] Start: 06-08-2024 Sex Female (finding) [facility] Start: 08-03-2024 Tobacco use and exposure Smoke less tobacco non-user [facility] Start: 08-07-2024 Alcoholic beverage intake Life time non-drinker (finding) [facility] Start: 08-02-2024 End: 08-07-2024 History of Social function [facility] Start: 08-02-2024 End: 08-07-2024 [facility] Utilities [facility] Has the [employer], [employer], or [employer] threatened to shut off services in your home in past 12Mo No [facility] (I/We) worried wheth er (my/our) food would run out before (I/we) got money to buy more. Never true [facility] In the past 12 month s, has lack of transportation kept you from medical appointments or from getting medications? No [facility] Start: 1940 Sex assigned at Not on file C [facility] Medical Equipment Procedure Code Equipment Code Equipment Origin al Text Equipment Identifier Dates ([id number]) Femur nail, sterile ( [id number] FDA Start: 05-19-2021 ([id number]) Orthopaedic bone screw, non-bioabsorbable, sterile ()[id number] FDA Start: 05-19-2021 ([id number]) Orthopaedic bone screw, non-bioabsorbable, sterile ()[id number] FDA Start: 05-19-2021 Goals Date Patient Goal Desired Activity /State Functional Status Date Assessment Result Facility 08-21-2024 Are you deaf, or do you have serious difficulty hearing No 08/21/2024 9:55 AM Marti Koehler RN No [facility] 08-21-2024 Are you blind, or do you have serious difficulty seeing, even when wearing glasses No 08/21/2024 9:55 AM Marti Koehler RN No [facility] 08-21-2024 Do you have serious difficulty walking or climbing stairs No 08/21/2024 9:55 AM Marti Koehler RN No [facility] 08-21-2024 Do you have difficul ty dressing or bathing No 08/21/2024 9:55 AM Marti Koehler RN No [facility] 08-21-2024 Because of a physica l, mental, or emotional condition, do you have difficulty doing errands alone such as visiting a physician's office or shopping No 08/21/2024 9:55 AM Marti Koehler RN No [facility] 06-09-2021 Functional status Activity Abili ty With Assist of 1 [facility] Work Phone: 06-08-2021 Functional status Assistive Marsha gracia Rolling Walker [facility] Work Phone: 05-22-2021 Functional status Activity Abili ty With Assistance of 3 or more [facility] Work Phone: 05-21-2021 Functional status Chair [facility] Work Phone: Mental Status Date Assessment Result Facility 10-05-2024 Cognitive function Level Of Cons ciousness Awake;Appropriate;Follows Commands;Drowsy [facility] Work Phone: 08-21-2024 Because of a physica l, mental, or emotional condition, do you have serious difficulty concentrating, remembering, or making decisions No 08/21/2024 9:55 AM Marti Koehler RN No [facility] 06-10-2021 Cognitive function Voice/Name [facility] Work Phone: 05-23-2021 Cognitive function Voice/Name [facility] Work Phone: 05-22-2021 Cognitive function Awake;Alert;Appropriat e [facility] Work Phone: 05-21-2021 Cognitive function Appropriate;Cooperativ e [facility] Work Phone: Clinical Notes 10-16-2001 to 10-05-2024 Marcella Cooley, RT(R) - 08/24/2024 4:00 PM EDT Note Date & Type Note Facility 10-05-2024 Radiology Diagnostic study note [facility] Imaging Services [address] [place], [place] [address] Chest PA and Lateral MR#: [id number] Acct: [id number] Name: TAMICA ANDERSON Rep #: [id number] : 1940 F 84 From: Sharon Coyne MD PCP: Dr. Dominique Lang MD Status: RE G ER Study:Chest PA and Lateral Date of Exam: 10/05/24 Exam# [id number] Ordering Dr: Skinny Cerrato MD EXAM: XR Chest, 2 Views CLINICAL INDICATION: PRODUCTIVE COUGH, RALES RIGHT GREATER THAN LEFT WI TECHNIQUE: Frontal and lateral views of the chest. COMPARISON: No relevant prior studies available. FINDINGS: LUNGS AND PLEURAL SPACES: Bibasilar atelectasis or pneumonia. No pneumothorax. HEART: Unremarkable. No cardiomegaly. MEDIASTINUM: Unremarkable. Normal mediastinal contour. BONES/JOINTS: Unremarkable. No acute fracture. UPPER ABDOMEN: Elevated right hemidiaphragm. RAD/Chest PA and Lateral IMPRESSION: Bibasilar atelectasis or pneumonia. [facility] CC: Dr. Dominique Lang MD; Dr. Frankie Cerrato MD ~ Toll Gate Tender: Signed [facility] 08-24-2024 History of Present illness Narrative Radiology Service Progress Note PATIENT NAME: Tamica Anderson DATE OF SERVICE: August 24, 2024 TIME: 4:01 PM PATIENT IDENTITY VERIFICATION COMPLETED USING TWO (2) IDENTIFIERS: Name and Date of confirmed by patient verbally. FALL SCREENING: Has the patient had 2 falls in the last year or 1 fall with injury or currently using an Ambulatory Assistive Device (Walker, Cane, Wheelchair, Crutches, etc.)? No PATIENT GENDER DATA: Assigned female at . status: : No status: NO. PATIENT RELEVANT IMPLANT DATA REVIEWED: Not Applicable PATIENT PRESENTS WITH AN IMPLANTABLE OR ATTACHED DIVISION HEAD: No RADIOLOGY DEPARTMENT: CT; Exam(s) Completed: Brain PERIPHERAL IV DATA: Not applicable SIGNED BY: RT Ragini(Krunal) August 24, 2024 4:01 PM documented in this encounter [facility] 08-24-2024 Note HNO ID: [id number] Author: MARCELLA COOLEY RT(R) Service: ? Author Type: [employer] Board Type: Progress Notes Filed: 08/24/2024 16:01 Note Text: Radiology Service Progress Note PATIENT NAME: Tamica Anderson DATE OF SERVICE: August 24, 2024 TIME: 4:01 PM PATIENT IDENTITY VERIFICATION COMPLETED USING TWO (2) IDENTIFIERS: Name and Date of confirmed by patient verbally. FALL SCREENING: Has the patient had 2 falls in the last year or 1 fall with injury or currently using an Ambulatory Assistive Device (Walker, Cane, Wheelchair, Crutches, etc.)? No PATIENT GENDER DATA: Assigned female at . status: : No status: NO. PATIENT RELEVANT IMPLANT DATA REVIEWED: Not Applicable PATIENT PRESENTS WITH AN IMPLANTABLE OR ATTACHED DIVISION HEAD: No RADIOLOGY DEPARTMENT: CT; Exam(s) Completed: Brain PERIPHERAL IV DATA: Not applicable SIGNED BY: RT Ragini(Krunal) August 24, 2024 4:01 PM [facility] 08-18-2024 Note HNO ID: [id number] Author: RUPINDER RASHEED RN Service: Care Management Author Type: Registered Nurse Type: Care Mgt Progress Note Filed: 08/18/2024 08:42 Note Text: CASE MANAGEMENT PROGRESS NOTE SERVICE DATE: 08/18/2024 SERVICE TIME: 8:41 AM Scheduled f/u appt with leeann- Viktoriya ESCOBAR- 08/25 2:15pm- [facility] SIGNATURE: Rupinder Rasheed RN PATIENT NAME: Tamica Anderson DATE: August 18, 2024 TIME: 8:41 AM PAGER/CONTACT #: [phone] [facility] 08-15-2024 Note HNO ID: [id number] Author: ALISON MAC APRN.BREAKER MACHINE OPERATOR Service: Hospital Medicine Author Type: Nurse Practitioner Type: Progress Notes Filed: 08/15/2024 16:51 Note Text: DEPARTMENT OF HOSPITAL MEDICINE PROGRESS NOTE SERVICE DATE: 08/15/2024 SERVICE TIME: 4:50 PM Hospital Medicine/Primary Attending: Ian Arredondo MD NIGHT AND WEEKEND COVERAGE: [facility] KARL 7a-7p Page [id number] 7p-7a Subjective INTERVAL HPI: - seen and examined - bruising and swelling healing well - discussed need for plastics follow up - will attempt to arrange on Saturday - dentures are fitting and no concerns for dysphagia will advance diet to dental soft and await speech eval unsure why not seen this week Current Facility-Administered Medications Medication Dose Route Frequency clonazePAM 0.5 mg tab(s) (KlonoPIN) 0.5 mg ORAL BID PRN furosemide 40 mg tab(s) (LASIX) 40 mg ORAL DAILY rosuvastatin 10 mg tab(s) (CRESTOR) 10 mg ORAL AT BEDTIME metFORMIN 1,000 mg tab(s) (GLUCOPHAGE) 1,000 mg ORAL DAILY WITH BREAKFAST busPIRone 10 mg tab(s) (BUSPAR) 10 mg ORAL TID sertraline 100 mg tab(s) (ZOLOFT) 100 mg ORAL DAILY cycloSPORINE 0.05 % drop 1 drop 1 drop BOTH EYES BID gabapentin 100 mg cap(s) (NEURONTIN) 100 mg ORAL TID mupirocin 2 % 0.5 g ointment (BACTROBAN) 0.5 g NASAL BID melatonin 9 mg tab(s) 9 mg ORAL AT BEDTIME potassium chloride ER 10 mEq tab(s) (KLOR-CON M10) 10 mEq ORAL DAILY acetaminophen 650 mg tab(s) (TYLENOL) 650 mg ORAL q 4 H PRN miconazole 2 % 1 application topical powder 1 application TOPICAL BID senna-docusate 8.6-50 mg 1 tablet (SENNA-S) 1 tablet ORAL BID ondansetron orally disintegrating 4 mg tab(s) (ZOFRAN ODT) 4 mg ORAL q 6 H PRN Objective PHYSICAL EXAM: BP 136/68 Pulse 77 Temp (Src) 99 (Oral) Resp 16 Ht 4' 11 (1.50m) Wt 126 lb 1.7 oz (57.2kg) SpO2 91% BMI 25.46 kg/(m2). O2 Therapy: Room Air Physical Exam Performed GENERAL: Alert, no distress, cooperative SKIN: Skin color, texture, turgor normal. No rashes. HEAD/SINUSES: + bruising to face, lips and neck OROPHARYNX: tongue normal. Teeth normal. LUNGS: Lungs clear to all lobes. On RA. CARDIAC: No murmur, RRR ABDOMEN: Abdomen soft, non-tender, BS normal EXTREMITIES: Extremities without edema, clubbing or skin discoloration. Good capillary refill. NEURO: Grossly normal cognition, Sensation grossly intact PULSES: 2+ radial, 2+ dorsalis pedis Lines, Drains, and Airways None Patient does not currently have any lines, drains or airways. DATA: Diagnostic tests reviewed for today's visit: Most recent labs Assessment/Plan Problem List Assessment AND Plan Aftercare Frequent falls Subdural hematoma (HCC) SAH (subarachnoid hemorrhage) (HCC) Lip laceration Closed fracture of nasal bone Primary hypertension Hyperlipidemia Controlled type 2 diabetes mellitus without complication, without long-term current use of insulin (HCC) Anxiety Malnutrition of mild degree (HCC) HOSPITAL COURSE: Tamica Anderson is an 84 year old female PMH of recurrent falls, CAD s/p PCI w/stents(2001) on ASA, CABG (2001) HTN, HLD, T2DM, was admitted to [facility] after a traumatic fall. Patient fell while using her walker her head hit the floor. Image findings significant for subarachnoid hemorrhage, subdural hemorrhage, nasal bone fractures, and lip laceration. Seen by neurosurgery who felt the subarachnoid hemorrhage was non-operative. repeat scans were stable. the patient was started on Keppra x 7 days for seizure prophylaxis. Seen by ENT and plastic surgery who felt nasal bone fractures were non-operative. she needs to follow-up with plastic surgery outpatient. she should be on nasal and sinus precautions. Lip laceration was sutured with dissolvable sutures. Seen by speech therapy who recommended pureed diet due to swelling and poor denture fitting. 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 PT and OT recommended fpc facility, thus patient was transferred to [facility] for further rehab services. Principal Problem: Aftercare - Hospitalization Dates: 08/01/2024-08/06/2024 - Hospitalization Diagnosis: Fall - Discharge Facility: [facility] - PT/OT Consult - Nutrition Consult - Case Management Consult for Discharge Planning - Pain Control: PRN Tylenol - DVT Prophylaxis: SHALINI wraps and ambulation (anticoagulation contraindicated in the setting of brain bleed) - PT/OT Restrictions: Nasal/sinus precautions - Current Living Situation: home - Code Status: Full Code Subdural hematoma (HCC) SAH (subarachnoid hemorrhage) (HCC) - Acute subdural hematoma involving the lower anterior interhemispheric fissure which measures 8 mm in maximum width. Small volume of an adjacent acute subarachnoid hemorrhage in the anterior inferior frontal lobes. - Seen by trauma and neurosurgery-- nonoperative - Repeat imaging stable - Avoid all blood thinning medications - (more content not included)... [facility] 08-14-2024 Note HNO ID: [id number] Author: CEDRICK HUNG LSW Service: Care Management Author Type: Scan Coordinator Type: Care Mgt Progress Note Filed: 08/14/2024 20:32 Note Text: Summary: Family contact SOCIAL WORK PROGRESS NOTE Name: Tamica Anderson Nurse relayed that patient's daughter tried to schedule an appt with PCP and she too was told that they can't make an appt just to start HHC. (HH agency reported that PCP's nurse told them that patient needs to be seen before they will follow) Sent daughter a text to relay that agency will contact PCP's office again to determine what they require.To keep her updated. Signature: VAN Blair Date: August 14, 2024 Time: 8:26 PM [facility] 08-13-2024 Note HNO ID: [id number] Author: CEDRICK HUNG LSW Service: Care Management Author Type: Scan Coordinator Type: Care Mgt Progress Note Filed: 08/13/2024 13:49 Note Text: Summary: Family Call SOCIAL WORK PROGRESS NOTE Name: Tamica Anderson Phoned patient's son Derrick. He will call PCP to schedule an appointment as PCP's office requested prior to following patient for HHC. DC planned for 08/21. [facility]. 1:48 pm Received message from patient's daughter. Son called PCP to make appt. Office stated they do not want patient taken from hospital to see PCP. Relayed this to [facility]. Signature: VAN Blair Date: August 13, 2024 Time: 9:38 AM [facility] 08-12-2024 Note HNO ID: [id number] Author: CEDRICK HUNG LSW Service: Care Management Author Type: Scan Coordinator Type: Care Mgt Progress Note Filed: 08/12/2024 14:23 Note Text: Summary: Team Rounds MULTIDISCIPLINARY ROUNDS SERVICE DATE: 08/12/2024 ADMISSION DATE: 08/06/2024 SERVICE TIME: 12:30 PM ANTICIPATED D/C DATE: 08/21 Problem List: ACTIVE PROBLEM LIST Subdural Hematoma (Hcc) Fall Sah (Subarachnoid Hemorrhage) (Hcc) Primary Hypertension Hyperlipidemia Lip Laceration Controlled Type 2 Diabetes Mellitus Without Complication, Without Long-Term Current Use of Insulin (Hcc) Closed Fracture of Nasal Bone Frequent Falls Frailty Syndrome in Geriatric Patient Anxiety Aftercare Malnutrition of Mild Degree (Hcc) Attendees Present at Rounds: CM, BREAKER MACHINE OPERATOR, NM, NT, OT, PT, SW Needs Discussed on Rounds: Diet Discharge Needs Follow Up Appointments Mobility Plan of Care Anticipated Discharge Disposition: Home with Home Health Last Vitals: BP 178/73 Pulse 68 Temp (Src) 97.9 (Oral) Resp 16 Ht 4' 11 (1.50m) Wt 126 lb 1.7 oz (57.2kg) SpO2 92% BMI 25.46 kg/(m2). O2 Therapy: Room Air SW Lives with son who works FT. Lots of family at bedside. To confirm level of support at home. OT LB dressing MAxA, Santos for LB bathing and toileting, needs to work on ADL's and balance. PT Doing well. Needs work on balance and safety awareness. NT Mild PCM appetite Boost BID Nursing: DOCUMENTED BY: VAN Blair PATIENT NAME: Tamica Anderson DATE: August 12, 2024 TIME: 2:21 PM CSN: [id number] [facility] 08-11-2024 Note HNO ID: [id number] Author: CEDRICK HUNG LSW Service: Care Management Author Type: Scan Coordinator Type: Care Mgt Progress Note Filed: 08/11/2024 14:56 Note Text: Summary: HHC SOCIAL WORK PROGRESS NOTE Name: Tamica Anderson Anoop [facility] is willing to accept patient but patient will need to see PCP preferably before HHC goes out. To discuss with patient/family. 2:55 pm Per patient PCP talked about setting up HHC, but she hasn't heard anything. Patient states she saw PCP recently. SW to call and confirm he will follow for HHC. Signature: VAN Blair Date: August 11, 2024 Time: 2:49 PM [facility] 08-11-2024 Note HNO ID: [id number] Author: MARTI BONILLA APRN.CNP Service: Hospital Medicine Author Type: Nurse Practitioner Type: Progress Notes Filed: 08/11/2024 09:43 Note Text: DEPARTMENT OF HOSPITAL MEDICINE PROGRESS NOTE SERVICE DATE: 08/11/2024 SERVICE TIME: 8:00 AM Hospital Medicine/Primary Attending: Oscar Rosas MD NIGHT AND WEEKEND COVERAGE: [facility] KARL 7a-7p Page [id number] 7u-2u Subjective INTERVAL HPI: - patient in bed, eating breakfast. - reports having some mild leg pain, relieved with tylenol - no changes to vision or blurred vision; bruising to face healing Current Facility-Administered Medications Medication Dose Route Frequency clonazePAM 0.5 mg tab(s) (KlonoPIN) 0.5 mg ORAL BID PRN furosemide 40 mg tab(s) (LASIX) 40 mg ORAL DAILY rosuvastatin 10 mg tab(s) (CRESTOR) 10 mg ORAL AT BEDTIME metFORMIN 1,000 mg tab(s) (GLUCOPHAGE) 1,000 mg ORAL DAILY WITH BREAKFAST busPIRone 10 mg tab(s) (BUSPAR) 10 mg ORAL TID sertraline 100 mg tab(s) (ZOLOFT) 100 mg ORAL DAILY cycloSPORINE 0.05 % drop 1 drop 1 drop BOTH EYES BID gabapentin 100 mg cap(s) (NEURONTIN) 100 mg ORAL TID bacitracin 500 unit/gram topical ointment TOPICAL BID mupirocin 2 % 0.5 g ointment (BACTROBAN) 0.5 g NASAL BID melatonin 9 mg tab(s) 9 mg ORAL AT BEDTIME potassium chloride ER 10 mEq tab(s) (KLOR-CON M10) 10 mEq ORAL DAILY acetaminophen 650 mg tab(s) (TYLENOL) 650 mg ORAL q 4 H PRN miconazole 2 % 1 application topical powder 1 application TOPICAL BID hydrocortisone topical cream 2.5% TOPICAL BID senna-docusate 8.6-50 mg 1 tablet (SENNA-S) 1 tablet ORAL BID Objective PHYSICAL EXAM: BP 157/71 Pulse 68 Temp (Src) 98.1 (Oral) Resp 16 Ht 4' 11 (1.50m) Wt 126 lb 1.7 oz (57.2kg) SpO2 93% BMI 25.46 kg/(m2). O2 Therapy: Room Air Physical Exam Performed GENERAL: Alert, no distress, cooperative SKIN: Skin color, texture, turgor normal. No rashes. HEAD/SINUSES: + bruising to face, lips and neck OROPHARYNX: tongue normal. Teeth normal. LUNGS: Lungs clear to all lobes. On RA. CARDIAC: No murmur, RRR ABDOMEN: Abdomen soft, non-tender, BS normal EXTREMITIES: Extremities without edema, clubbing or skin discoloration. Good capillary refill. NEURO: Grossly normal cognition, Sensation grossly intact PULSES: 2+ radial, 2+ dorsalis pedis Lines, Drains, and Airways None Patient does not currently have any lines, drains or airways. DATA: Diagnostic tests reviewed for today's visit: Most recent labs Assessment/Plan Problem List Assessment AND Plan Aftercare Frequent falls Subdural hematoma (HCC) SAH (subarachnoid hemorrhage) (HCC) Lip laceration Closed fracture of nasal bone Primary hypertension Hyperlipidemia Controlled type 2 diabetes mellitus without complication, without long-term current use of insulin (HCC) Anxiety Malnutrition of mild degree (HCC) HOSPITAL COURSE: Tamica Anderson is an 84 year old female PMH of recurrent falls, CAD s/p PCI w/stents(2001) on ASA, CABG (2001) HTN, HLD, T2DM, was admitted to [facility] after a traumatic fall. Patient fell while using her walker her head hit the floor. Image findings significant for subarachnoid hemorrhage, subdural hemorrhage, nasal bone fractures, and lip laceration. Seen by neurosurgery who felt the subarachnoid hemorrhage was non-operative. repeat scans were stable. the patient was started on Keppra x 7 days for seizure prophylaxis. Seen by ENT and plastic surgery who felt nasal bone fractures were non-operative. she needs to follow-up with plastic surgery outpatient. she should be on nasal and sinus precautions. Lip laceration was sutured with dissolvable sutures. Seen by speech therapy who recommended pureed diet due to swelling and poor denture fitting. 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 PT and OT recommended fpc facility, thus patient was transferred to [facility] for further rehab services. Principal Problem: Aftercare - Hospitalization Dates: 08/01/2024-08/06/2024 - Hospitalization Diagnosis: Fall - Discharge Facility: [facility] - PT/OT Consult - Nutrition Consult - Case Management Consult for Discharge Planning - Pain Control: PRN Tylenol - DVT Prophylaxis: SHALINI wraps and ambulation (anticoagulation contraindicated in the setting of brain bleed) - PT/OT Restrictions: Nasal/sinus precautions - Current Living Situation: home - Code Status: Full Code Subdural hematoma (HCC) SAH (subarachnoid hemorrhage) (HCC) - Acute subdural hematoma involving the lower anterior interhemispheric fissure which measures 8 mm in maximum width. Small volume of an adjacent acute subarachnoid hemorrhage in the anterior inferior frontal lobes. - Seen by trauma and neurosurgery-- nonoperative - Repeat imaging stable - Avoid all blood thinning medications - Speech therapy consult for cognitive eval for TBI - Completed 7d course of Keppra f (more content not included)... [facility] 08-07-2024 Note HNO ID: [id number] Author: CEDRICK HUNG LSW Service: Care Management Author Type: Scan Coordinator Type: Care Mgt Initial Assessment Filed: 08/07/2024 21:19 Note Text: Summary: Initial Assessment CARE MANAGEMENT: ASSESSMENT AND DISCHARGE PLAN SERVICE DATE: August 07, 2024 SERVICE TIME: 5:35 pm PCP: Dominique Lang MD, Primary Contact: Extended Emergency Contact Information Primary Emergency Contact: Derrick Anderson Mobile Relation: Son Secondary Emergency Contact: MarvinFrancisco Javier Mobile Relation: Daughter Admission Status: Inpatient Swing Insurance Provider: [facility] [employer] [facility] Discharge Planning requested by: Per Department Practice Potential Transition Plans Home OT/PT Advance Directives: n/a Current Living Arrangements and Support Lives with: Children (Lee Meza) Type of Residence: Private Residence (Apartment or Condo) Does the patient have to climb stairs at home?: Yes, stairs outside the home (3) Support: Children, Friends/neighbors, Family members How do you manage to accomplish the following: Independent: Ambulation, Bathe/Shower, Dress, Going to the bathroom Needs Assistance: Meals/Meal Prep, Medication Management Dependent: Transportation to appointments/community Current Services/Equipment Current Post-Acute Service(s): DME Current DME Type: Bedside commode, Cane, Wheelchair-manual, Continuous Positive Airway Pressure, Rolling walker Discharge Planning Patient Goal(s): Better mobility, Increase strength, Be able to go home, General wellness, Better appetite Bowman of Choice Explained: Bowman of Choice Given: Yes Level of Care Discussed: Home Care (no preference) Discharge Planning Participant(s): Patient, Children Patient/Family Comments: Patient hopes not to be here for 2 weeks Caregiver Assessment: Caregiver is ready, willing and able to meet the patient's needs as recommended by the inter-professional team: Other: See Comment (TBD - son works FT) Transport at Discharge: TBD Needs Prior to Discharge: Needs Prior to Discharge: To Be Determined, Home Care Order, Facility or Agency Choices Post-Acute Discharge Plan: Home with [facility] Patient lives with son Derrick who works FT. She had several family members at bedside this evening: Derrick, daughters Francisco Javier/ and Malik, friend Don. Chart note states that if patient needs home O2, family would like to use [facility]. Patient has appts on 08/24 (radiology) and 08/27 (Neurology) She has a RW and 3 in 1 as well as a wheelchair. Patient uses a CPAP at home. SIGNATURE: VAN Blair PATIENT NAME: Tamica Anderson DATE: August 07, 2024 TIME: 9:15 PM [facility] 08-06-2024 Note HNO ID: [id number] Author: DIAMANTE GALINDO APRN.CNP Service: General Surgery Author Type: Nurse Practitioner Type: Progress Notes Filed: 08/07/2024 08:55 Note Text: Documentation Query Please clarify the diagnosis associated with the clinical indicators for this patient Provider Response: Hypokalemia supported by: Continued Lab Monitoring and potassium supplements This document will become part of the patient's medical record. [facility] 08-06-2024 Note HNO ID: [id number] Author: DIAMANTE GALINDO APRN.CNP Service: General Surgery Author Type: Nurse Practitioner Type: Progress Notes Filed: 08/07/2024 08:56 Note Text: Documentation Query Please clarify the diagnosis associated with the clinical indicators: Other Acute blood loss anemia secondary to trauma This document will become part of the patient's medical record. [facility] 08-06-2024 Note HNO ID: [id number] Author: GILSON LERNER RN Service: Care Management Author Type: Registered Nurse Type: Care Mgt Progress Note Filed: 08/06/2024 12:17 Note Text: CARE MANAGEMENT DISCHARGE NOTE SERVICE DATE: August 06, 2024 SERVICE TIME: 12:15 PM Admission Date: 08/01/2024 LOS: 5 days Discharge Arrangement Discharge Arrangement: Intermediate Facility Was an expedited discharge program used?: No Provider Name: [facility] Caregiver Assessment Caregiver is ready, willing and able to meet the patient's needs as recommended by the inter-professional team: Yes Name of Caregiver: [facility] Transportation Arrangements Transportation Arrangements: Ambulance Transportation Agency and Phone #:: [facility] ( [facility] ) [phone] / [phone] Date of Trip: 08/06/24 Time of Trip: 1300 Is Patient Medicaid Pending?: No Was transportation financial coverage discussed with family?: Family Government Affairs Specialist Location: [facility] Destination: [facility] Financial Care Management Responsibility: None Handoff Communication: Handoff to: Other Caregiver Other Caregiver Name/Phone: [facility]/ Bedside RN Spoke with patient's son Derrick via phone ([phone]). Discharge today. Discharge orders complete. Plan is for SNF placement at discharge. Patient in agreement. [facility] is able to accept patient. Insurance authorization obtained. Transportation set for 1300. [facility] and bedside RN notified. SIGNATURE: Gilson Lerner RN PATIENT NAME: Tamica Anderson DATE: August 06, 2024 TIME: 12:15 PM [facility] 08-06-2024 Note HNO ID: [id number] Author: JEREMY FLORES PA-C Service: General Surgery Author Type: Physician X Ray Developing Machine Operator Type: Plan of Care Filed: 08/06/2024 10:50 Note Text: Trauma Surgery Plan of Care 08/06/2024 (08/06/2024, 10:48 AM): Repeat CT brain completed 08/06/2024 secondary to AMS shows overall improvement in previously noted bleeds. Patient is now back to her baseline AANDOx3 and has no complaints. No further workup indicated. Plan for discharge to [facility] 08/06/2024. Jeremy Flores PA-C 08/06/2024 10:49 AM [facility] 08-06-2024 Note HNO ID: [id number] Author: JEREMY FLORES PA-C Service: General Surgery Author Type: Physician X Ray Developing Machine Operator Type: Progress Notes Filed: 08/06/2024 08:23 Note Text: Trauma Surgery Progress Note SERVICE DATE: 08/06/2024 Trauma Service Pager: For questions or concerns Mon-Fri 6a-5p please page [phone]. After 5pm and on Weekends and Holidays, please page [phone] if in ICU or [phone] if on RNF. SUBJECTIVE: Paged received from nursing this morning expressing concerns for AMS compared to yesterday. Patient awake upon my arrival. Able to state name and but unable to state why she is hospitalized. Denies FOWLER. Denies pain. No visual changes, numbness/tingling or paresthesias. No chest pain, SOB, abdominal pain, urinary frequency or dysuria. BP also elevated into the 180s systolic overnight. OBJECTIVE: Vitals: Temp (24hrs), Av.9 ?C (98.5 ?F), Min:36.4 ?C (97.5 ?F), Max:37.2 ?C (99 ?F) BP 165/84 Pulse 72 Temp 36.6 ?C (97.8 ?F) (Oral) Resp 18 Ht 144.8 cm (4' 9) Wt 62.2 kg (137 lb 2 oz) SpO2 93% BMI 29.67 kg/m? O2 Therapy: Room Air IANDO: Date 08/05/24 07 - 08/06/24 0659 08/06/24 0700 - 08/07/24 0659 Shift 2507-7291 4955-4226 3177-4592 24 Hour Total 5687-0732 6040-7971 9118-4101 24 Hour Total INTAKE PO 250 250 PO 250 250 Shift Total 250 250 OUTPUT Urine 150 150 300 Urine Not Saved. 2 x 2 x Output ( External Collection Device 08/04/241999 [facility]) 150 150 300 # of BMs Number of BMs 1 x 1 x Shift Total 150 150 300 Weight (kg) 62.2 62.2 62.2 62.2 62.2 62.2 62.2 62.2 MEDICATIONS Current Facility-Administered Medications Medication Dose Route Frequency gabapentin 100 mg cap(s) (NEURONTIN) 100 mg ORAL DAILY bacitracin 500 unit/gram topical ointment TOPICAL BID benzocaine-menthol 1 lozenge (CEPACOL) 1 lozenge MUCOUS MEMBRANE (TOPICAL MOUTH AND THROAT) q 2 H PRN clonazePAM 0.5 mg tab(s) (KlonoPIN) 0.5 mg ORAL BID PRN furosemide 40 mg tab(s) (LASIX) 40 mg ORAL DAILY rosuvastatin 10 mg tab(s) (CRESTOR) 10 mg ORAL AT BEDTIME busPIRone 10 mg tab(s) (BUSPAR) 10 mg ORAL TID sertraline 100 mg tab(s) (ZOLOFT) 100 mg ORAL DAILY heparin 5,000 Units injection 5,000 Units SUBCUTANEOUS q 12 H acetaminophen 650 mg tab(s) (TYLENOL) 650 mg ORAL q 6 H PRN oxyCODONE IR 2.5 mg tab(s) (ROXICODONE) 2.5 mg ORAL q 6 H PRN senna-docusate 8.6-50 mg 1 tablet (SENNA-S) 1 tablet ORAL BID levETIRAcetam 500 mg tab(s) (KEPPRA) 500 mg ORAL BID insulin lispro injection (rapid acting) (ADMElog) SUBCUTANEOUS w MEALS AND HS NaCl 0.9% iv flush bag 20 mL INTRAVENOUS PRN dextrose 15 gram/32 mL 15 g (TRUEPLUS) 15 g ORAL PRN Or glucagon 1 mg injection 1 mg INTRAMUSCULAR PRN Or dextrose 10% iv bolus 12.5 g INTRAVENOUS PRN melatonin 9 mg tab(s) 9 mg ORAL DAILY (8 PM) Labs: Recent Labs 08/06/24 0309 08/04/24 0639 NA 142 139 K 3.2* -- CHLOR 99 100 CO2 29 28 BUN 21 23* CREAT 0.71 0.77 GLUC 101* 123* ANION 14 11 CA 9.0 9.1 WBC 7.65 8.09 HB 11.2* 10.7* HCT 34.4* 32.9* PLT 172 179 PHYSICAL EXAM: Genl: Appears age appropriate. No acute distress. Resting comfortably. Head/Face: Normocephalic. Diffuse facial ecchymosis and upper lip swelling. Upper lip laceration with sutures in place. Eyes: EOMI. PERRLA. Bilateral periorbital ecchymosis. Resp: No audible wheezes. Breathing is non-labored on RA. CVS: HR as above; 2+ pulses at RA, DP bilat. GI: Abdomen is soft, non-tender, not distended. No peritonitis. MSK: Extremities without clubbing, cyanosis, edema. Normal ROM x 4. Scattered ecchymosis of various stages throughout the upper extremities. Skin: Warm and dry. Not jaundiced. Neuro: AANDOx2 to person and time. SOUSA. Gross motors and sensation intact. Speech clear. No facial droop. Follows commands. GCS 14 - 1 off for confusion. Psych: Normal mood and affect. ASSESSMENT AND PLAN: Active Hospital Problems Diagnosis Date Noted Subdural hematoma (HCC) 08/01/2024 Frequent falls 08/03/2024 Frailty syndrome in geriatric patient 08/03/2024 Anxiety 08/03/2024 Fall 08/02/2024 SAH (subarachnoid hemorrhage) ([facility]) 08/02/2024 Primary hypertension 08/02/2024 Hyperlipidemia 08/02/2024 Lip laceration 08/02/2024 Controlled type 2 diabetes mellitus without complication, with long-term current use of insulin ([facility]) 08/02/2024 Closed fracture of nasal bone 08/02/2024 84 year old female s/p mchanical GLF on 08/01/2024 (Transfer from [place]) Imaging performed: 08/01/2024 - CT HNFC, PXR 08/01/2024 - CT HNCAPTL, repeat CT brain 08/02/2024 - CXR, KUB Traumatic Injuries: Acute subdural hematoma involving the lower anterior interhemispheric fissure which measures 8 mm in maximum width. Small volume of an adjacent acute subarachnoid hemorrhage in the anterior inferior frontal lobes. Right frontal scalp hematoma/contusion Nasal septal fractures with suspected anterior nasal septal hematoma Upper lip laceration Operations/Procedures (more content not included)... [facility] 08-05-2024 Note HNO ID: [id number] Author: ALYSIA MAYEN, RN Service: Nursing Author Type: Registered Nurse Type: Progress Notes Filed: 08/06/2024 03:40 Note Text: 0916 Notified that patient's Bp was 180/81 pulse 71, retook a manual bp which was 180/71, and pt is asymptomatic. reported to notify if systolic bp is 190 and above or if patient becomes symptomatic. [facility] 08-05-2024 Note HNO ID: [id number] Author: GILSON LERNER RN Service: Care Management Author Type: Registered Nurse Type: Care Mgt Progress Note Filed: 08/05/2024 14:24 Note Text: CARE MANAGEMENT PROGRESS NOTE SERVICE DATE: 08/05/2024 SERVICE TIME: 10:08 AM LOS: 4 days Post-Acute Discharge Plan: Chart reviewed. Patient resides at home with family. S/p fall. SDH, SAH. Mildly displaced left nasal fracture. Lip laceration. PT/OT recommend SNF. Medically stable for discharge. Plan is for SNF placement at discharge. Patient in agreement. [facility] is able to accept patient. Awaiting insurance authorization and bed availability. Patient's son Derrick updated via phone ([phone]). ADDENDUM 08/05/24 1419: Insurance authorization for SNF placement at [facility] obtained and valid 08/05- 08/11. Awaiting bed availability. Jeremy Flores PA-C notified.Will continue to follow clinical course for further transitional/discharge planning needs. Transport at Discharge: Transportation Arrangements: Ambulance SIGNATURE: Gilson Lerner RN PATIENT NAME: Tamica Anderson DATE: August 05, 2024 TIME: 10:08 AM [facility] 08-05-2024 Note HNO ID: [id number] Author: SU JHON PA Service: Geriatrics Author Type: Physician X Ray Developing Machine Operator Type: Progress Notes Filed: 08/05/2024 09:44 Note Text: Documentation Query Please clarify the diagnosis associated with the clinical indicators: Delirium Only This document will become part of the patient's medical record. [facility] 08-05-2024 Note HNO ID: [id number] Author: JEREMY FLORES PA-C Service: General Surgery Author Type: Physician X Ray Developing Machine Operator Type: Progress Notes Filed: 08/05/2024 08:56 Note Text: Trauma Surgery Progress Note SERVICE DATE: 08/05/2024 Trauma Service Pager: For questions or concerns Mon-Fri 6a-5p please page [phone]. After 5pm and on Weekends and Holidays, please page [phone] if in ICU or [phone] if on RNF. SUBJECTIVE: NAEON. Patient resting comfortably. No new focal concerns. Denies pain. Not much appetite at this time. No nausea or vomiting. RN present at bedside. OBJECTIVE: Vitals: Temp (24hrs), Av.7 ?C (98.1 ?F), Min:36.6 ?C (97.8 ?F), Max:37.1 ?C (98.8 ?F) BP 139/76 Pulse 77 Temp 36.8 ?C (98.3 ?F) (Oral) Resp 18 Ht 144.8 cm (4' 9) Wt 62.2 kg (137 lb 2 oz) SpO2 96% BMI 29.67 kg/m? O2 Therapy: Nasal Cannula IANDO: Date 08/04/24 07 - 08/05/24 0659 08/05/24 07 - 08/06/24 0659 Shift 6327-8825 3381-5593 3473-5918 24 Hour Total 7889-5415 2869-4204 6962-0939 24 Hour Total INTAKE Shift Total OUTPUT Urine 685 211 9054 1400 Void (ml) 200 200 400 Urine Incontinence/Not Saved 1 x 1 x Urine Not Saved. 1 x 2 x 3 x Output ( External Collection Device 08/04/241999 [facility]) 1000 1000 # of BMs Number of BMs 2 x 2 x Shift Total 257 428 2956 1400 Weight (kg) 62.2 62.2 62.2 62.2 62.2 62.2 62.2 62.2 MEDICATIONS Current Facility-Administered Medications Medication Dose Route Frequency gabapentin 100 mg cap(s) (NEURONTIN) 100 mg ORAL DAILY bacitracin 500 unit/gram topical ointment TOPICAL BID benzocaine-menthol 1 lozenge (CEPACOL) 1 lozenge MUCOUS MEMBRANE (TOPICAL MOUTH AND THROAT) q 2 H PRN clonazePAM 0.5 mg tab(s) (KlonoPIN) 0.5 mg ORAL BID PRN furosemide 40 mg tab(s) (LASIX) 40 mg ORAL DAILY rosuvastatin 10 mg tab(s) (CRESTOR) 10 mg ORAL AT BEDTIME busPIRone 10 mg tab(s) (BUSPAR) 10 mg ORAL TID sertraline 100 mg tab(s) (ZOLOFT) 100 mg ORAL DAILY heparin 5,000 Units injection 5,000 Units SUBCUTANEOUS q 12 H acetaminophen 650 mg tab(s) (TYLENOL) 650 mg ORAL q 6 H PRN oxyCODONE IR 2.5 mg tab(s) (ROXICODONE) 2.5 mg ORAL q 6 H PRN senna-docusate 8.6-50 mg 1 tablet (SENNA-S) 1 tablet ORAL BID levETIRAcetam 500 mg tab(s) (KEPPRA) 500 mg ORAL BID insulin lispro injection (rapid acting) (ADMElog) SUBCUTANEOUS w MEALS AND HS NaCl 0.9% iv flush bag 20 mL INTRAVENOUS PRN dextrose 15 gram/32 mL 15 g (TRUEPLUS) 15 g ORAL PRN Or glucagon 1 mg injection 1 mg INTRAMUSCULAR PRN Or dextrose 10% iv bolus 12.5 g INTRAVENOUS PRN melatonin 9 mg tab(s) 9 mg ORAL DAILY (8 PM) Labs: Recent Labs 08/04/24 0639 08/03/24 0213 08/03/24 0003 08/02/24 2329 NA 139 138 -- 137 K -- 3.7 -- 3.6* CHLOR 100 100 -- 100 CO2 28 25 -- 25 BUN 23* 22* -- 22* CREAT 0.77 0.85 -- 0.81 GLUC 123* 102* -- 105* ANION 11 13 -- 12 CA 9.1 9.3 -- 9.2 WBC 8.09 8.04 -- 8.10 HB 10.7* 10.1* -- 10.2* HCT 32.9* 31.0* -- 31.0* PLT 179 145* -- 151 LACT -- -- 0.6 0.7 PH -- -- 7.40 -- PCO2 -- -- 45 -- PO2 -- -- 63* -- BE -- -- 3* -- HCO3 -- -- 27* -- PHYSICAL EXAM: Genl: Appears age appropriate. No acute distress. Resting comfortably. Head/Face: Normocephalic. Diffuse facial ecchymosis and upper lip swelling. Upper lip laceration with sutures in place. Eyes: EOMI. PERRLA. Bilateral periorbital ecchymosis. Resp: No audible wheezes. Breathing is non-labored on 2L NC @ 96%. CVS: HR as above; 2+ pulses at RA, DP bilat. GI: Abdomen is soft, non-tender, not distended. No peritonitis. MSK: Extremities without clubbing, cyanosis, edema. Normal ROM x 4. Scattered ecchymosis of various stages throughout the upper extremities. Skin: Warm and dry. Not jaundiced. Neuro: AANDOx3. SOUSA. Gross motors and sensation intact. Speech clear. No facial droop. Follows commands. GCS 15. Psych: Normal mood and affect. ASSESSMENT AND PLAN: Active Hospital Problems Diagnosis Date Noted Subdural hematoma (HCC) 08/01/2024 Delirium 08/03/2024 Frequent falls 08/03/2024 Frailty syndrome in geriatric patient 08/03/2024 Anxiety 08/03/2024 Fall 08/02/2024 SAH (subarachnoid hemorrhage) ([facility]) 08/02/2024 Primary hypertension 08/02/2024 Hyperlipidemia 08/02/2024 Lip laceration 08/02/2024 Controlled type 2 diabetes mellitus without complication, with long-term current use of insulin ([facility]) 08/02/2024 Hypomagnesemia 08/02/2024 Thrombocytopenia 08/02/2024 Closed fracture of nasal bone 08/02/2024 84 year old female s/p mchanical GLF on 08/01/2024 (Transfer from [place]) Imaging performed: 08/01/2024 - CT HNFC, PXR 08/01/2024 - CT HNCAPTL, repeat CT brain 08/02/2024 - CXR, KUB Traumatic Injuries: Acute subdural hematoma involving the lower anterior interhemispheric fissure which measures 8 mm in maximum width. Small volume of an adjacent acute subarachnoid hemorrhage in the anterior inferior frontal lobes. Right frontal scalp hematoma/contusion Nasal septal frac (more content not included)... [facility] 08-04-2024 Note HNO ID: [id number] Author: DIAMANTE GALINDO APRN.CNP Service: General Surgery Author Type: Nurse Practitioner Type: Progress Notes Filed: 08/04/2024 12:09 Note Text: Trauma Surgery Progress Note SERVICE DATE: 08/04/2024 Trauma Service Pager: For questions or concerns Mon-Fri 6a-5p please page [phone]. After 5pm and on Weekends and Holidays, please page [phone] if in ICU or [phone] if on RNF. SUBJECTIVE: No acute overnight events. Patient is alert and oriented x 3, FC, SOUSA. No new focal deficits. She denies any acute pain or discomfort at this time. She denies headache, dizziness, lightheadedness, changes in vision, numbness/tingling. Awaiting SNF placement. OBJECTIVE: Vitals: Temp (24hrs), Av ?C (98.6 ?F), Min:36.6 ?C (97.8 ?F), Max:37.4 ?C (99.3 ?F) BP 153/73 Pulse 77 Temp 36.6 ?C (97.8 ?F) (Oral) Resp 22 Ht 144.8 cm (4' 9) Wt 62.2 kg (137 lb 2 oz) SpO2 95% BMI 29.67 kg/m? O2 Therapy: Nasal Cannula IANDO: Date 08/03/24 07 - 08/04/24 0659 08/04/24 07 - 08/05/24 0659 Shift 6812-3446 5092-0866 0697-7592 24 Hour Total 6592-2118 5016-4924 8140-2704 24 Hour Total INTAKE Shift Total OUTPUT Urine 200 325 200 725 Void (ml) 200 325 200 725 Urine Incontinence/Not Saved 1 x 1 x Urine Not Saved. 1 x 1 x Shift Total 200 325 200 725 Weight (kg) 62.2 62.2 62.2 62.2 62.2 62.2 62.2 62.2 MEDICATIONS: Current Facility-Administered Medications Medication Dose Route Frequency gabapentin 100 mg cap(s) (NEURONTIN) 100 mg ORAL DAILY bacitracin 500 unit/gram topical ointment TOPICAL BID benzocaine-menthol 1 lozenge (CEPACOL) 1 lozenge MUCOUS MEMBRANE (TOPICAL MOUTH AND THROAT) q 2 H PRN clonazePAM 0.5 mg tab(s) (KlonoPIN) 0.5 mg ORAL BID PRN furosemide 40 mg tab(s) (LASIX) 40 mg ORAL DAILY rosuvastatin 10 mg tab(s) (CRESTOR) 10 mg ORAL AT BEDTIME busPIRone 10 mg tab(s) (BUSPAR) 10 mg ORAL TID sertraline 100 mg tab(s) (ZOLOFT) 100 mg ORAL DAILY heparin 5,000 Units injection 5,000 Units SUBCUTANEOUS q 12 H acetaminophen 650 mg tab(s) (TYLENOL) 650 mg ORAL q 6 H PRN oxyCODONE IR 2.5 mg tab(s) (ROXICODONE) 2.5 mg ORAL q 6 H PRN senna-docusate 8.6-50 mg 1 tablet (SENNA-S) 1 tablet ORAL BID levETIRAcetam 500 mg tab(s) (KEPPRA) 500 mg ORAL BID insulin lispro injection (rapid acting) (ADMElog) SUBCUTANEOUS w MEALS AND HS NaCl 0.9% iv flush bag 20 mL INTRAVENOUS PRN dextrose 15 gram/32 mL 15 g (TRUEPLUS) 15 g ORAL PRN Or glucagon 1 mg injection 1 mg INTRAMUSCULAR PRN Or dextrose 10% iv bolus 12.5 g INTRAVENOUS PRN melatonin 9 mg tab(s) 9 mg ORAL DAILY (8 PM) Labs: Recent Labs 08/04/24 0639 08/03/24 0213 08/03/24 0003 08/02/24 2329 08/02/24 0308 NA 139 138 -- 137 138 K -- 3.7 -- 3.6* 4.3 CHLOR 100 100 -- 100 102 CO2 28 25 -- 25 26 BUN 23* 22* -- 22* 20 CREAT 0.77 0.85 -- 0.81 0.76 GLUC 123* 102* -- 105* 163* ANION 11 13 -- 12 10 CA 9.1 9.3 -- 9.2 8.8 MG -- -- -- -- 1.4* P -- -- -- -- 3.1 WBC 8.09 8.04 -- 8.10 6.78 HB 10.7* 10.1* -- 10.2* 10.2* HCT 32.9* 31.0* -- 31.0* 31.5* PLT 179 145* -- 151 117* LACT -- -- 0.6 0.7 -- PH -- -- 7.40 -- -- PCO2 -- -- 45 -- -- PO2 -- -- 63* -- -- BE -- -- 3* -- -- HCO3 -- -- 27* -- -- PHYSICAL EXAM: Genl: Appears age appropriate. No acute distress. Resting comfortably. Head/Face: Normocephalic. Right frontal ecchymosis. Lip laceration with sutures. Eyes: EOMI. PERRLA. Bilateral ecchymosis and periorbital edema. Neck: No mid-line masses. C-spine non-tender. Anterior neck ecchymosis extending to chest. Back: No midline tenderness, step-offs or deformities. Resp: Lungs CTAB. No wheezes, rales or rhonchi. Respiratory status stable on 2L NC @ 95%. CVS: RRR as above. 2+ RA, DP, PT pulses bilaterally. GI: Abdomen is soft, non-tender, non-distended. No guarding or peritoneal signs. MSK: No gross deformities. No clubbing, cyanosis or edema. Normal AROM x 4. Scattered ecchymosis to bilateral upper extremities. Skin: Warm and dry. Not jaundiced. Neuro: AANDOx3. Strength and sensation grossly intact in all extremities. SOUSA. GCS15. Psych: Normal mood. Normal affect. Appropriate insight into current situation. ASSESSMENT AND PLAN: Assessment Active Hospital Problems Diagnosis Date Noted Subdural hematoma (HCC) 08/01/2024 Delirium 08/03/2024 Frequent falls 08/03/2024 Frailty syndrome in geriatric patient 08/03/2024 Anxiety 08/03/2024 Fall 08/02/2024 SAH (subarachnoid hemorrhage) (HCC) 08/02/2024 Primary hypertension 08/02/2024 Hyperlipidemia 08/02/2024 Lip laceration 08/02/2024 Controlled type 2 diabetes mellitus without complication, with long-term current use of insulin (HCC) 08/02/2024 Hypomagnesemia 08/02/2024 Thrombocytopenia 08/02/2024 Closed fracture of nasal bone 08/02/2024 84-year old female s/p mechanical fall on 08/01/24 (Trauma transfer from [place]) Imaging performed: CT HNFC, PXR (08/01- [place] ED) CT HNCAPTL-spine, repeat CT brain (08/01) (more content not included)... [facility] 08-04-2024 Note HNO ID: [id number] Author: GILSON LERNER RN Service: Care Management Author Type: Registered Nurse Type: Care Mgt Progress Note Filed: 08/04/2024 11:52 Note Text: CARE MANAGEMENT PROGRESS NOTE SERVICE DATE: 08/04/2024 SERVICE TIME: 11:52 AM LOS: 3 days IMM Follow Up Copy Given: Yes Copy given to:: Patient Method: In Person (Copy left at the bedside) SIGNATURE: Gilson Lerner RN PATIENT NAME: Tamica Anderson DATE: August 04, 2024 TIME: 11:52 AM [facility] 08-04-2024 Note HNO ID: [id number] Author: GILSON LERNER RN Service: Care Management Author Type: Registered Nurse Type: Care Mgt Progress Note Filed: 08/04/2024 15:45 Note Text: CARE MANAGEMENT PROGRESS NOTE SERVICE DATE: 08/04/2024 SERVICE TIME: 11:39 AM LOS: 3 days Post-Acute Discharge Plan: Chart reviewed. Patient resides at home with family. S/p fall. SDH, SAH. Mildly displaced left nasal fracture. Lip laceration. On 2 liters oxygen. PT/OT recommend SNF. Patient resting. Spoke with patient's son Derrick via phone ([phone]). Explained care management role. Discussed care needs and therapy recommendations. At this time, patient's family is learning toward her returning to home at discharge but remains open to the possibility of placement. The family plans to visit with patient this afternoon to further discuss discharge options. In the meantime, potential placement options in the [place] area reviewed. ADDENDUM 08/04/24 1052: Received message from patient's son Derrick that patient would like to proceed with placement at discharge and her preference is [facility]. Facility notified and is able to accept patient. Awaiting insurance authorization and bed availability. Will continue to follow clinical course for further transitional/discharge planning needs. Transport at Discharge: Transportation Arrangements: To Be Determined SIGNATURE: Gilson Lerner RN PATIENT NAME: Tamica Anderson DATE: August 04, 2024 TIME: 11:39 AM [facility] 08-03-2024 Note HNO ID: [id number] Author: FLAVIO JONES RN Service: Care Management Author Type: Registered Nurse Type: Care Mgt Initial Assessment Filed: 08/03/2024 15:18 Note Text: CARE MANAGEMENT: ASSESSMENT AND DISCHARGE PLAN SERVICE DATE: August 03, 2024 SERVICE TIME: 3:07 PM PCP: Dominique Lang MD, MD Primary Contact: Extended Emergency Contact Information Primary Emergency Contact: Derrick Anderson Mobile Relation: Son Secondary Emergency Contact: Francisco Javier Wong Mobile Relation: Daughter Admission Status: Inpatient Insurance [place] [facility] [place] Planning requested by: Per Department Practice IMM Follow Up Copy Given: Yes Copy given to:: Patient Method: In Person Potential Transition Plans To Be Determined Advance Directives Current Advance Directive: Health Care Power of Neonatal Doctor, Living Will In Chart: No Instrumentation Fitter Attempted to Assist with AD Completion: Yes Action: Education Provided (copies at home) Current Living Arrangements and Support Lives with: Children Type of Residence: Private Residence (House) Does the patient have to climb stairs at home?: Yes, stairs outside the home Support: Family members How do you manage to accomplish the following: Independent: Ambulation, Bathe/Shower, Dress, Going to the bathroom, Medication Management Needs Assistance: Meals/Meal Prep Dependent: Transportation to appointments/community Current Services/Equipment Current Post-Acute Service(s): DME Current DME Type: Continuous Positive Airway Pressure, Cane, Walker, Wheelchair-manual, Bedside commode Discharge Planning Patient Goal(s): Be able to go home Bowman of Choice Explained: Bowman of Choice Given: Yes Level of Care Discussed: Intermediate Facility, Other: See Comment (discussed SNF aqt d/c, patient declined at this time) Are you interested in bedside delivery of your medications? Yes Discharge Planning Participant(s): Patient, Children Patient/Family Comments: Caregiver Assessment: Caregiver is ready, willing and able to meet the patient's needs as recommended by the inter-professional team: Yes Name of Caregiver: Derrick Anderson (Son) Transport at Discharge: Transportation Arrangements: To Be Determined Needs Prior to Discharge: Needs Prior to Discharge: To Be Determined Post-Acute Discharge Plan: Chart reviewed. CM spoke with patient at bedside and later with son via phone. Patient lives with son in a one level home with three steps to get into home. Patient independent of ADL's, medication management and needs assistance with cleaning and cooking. Dependent on transportation. DME's- cane, walker, wheelchair, bedside commode over toilets. CPAP through [facility] and per son [facility] if patient needs home oxygen. customer relations consultant her for SNF. Patient declining and son aware and agrees that patient will decline more if goes to a SNF. Him and his sisters is working on round the clock care. CM sent referral to [facility]. Needs to be determined. CM to follow. SIGNATURE: Flavio Jones RN PATIENT NAME: Tamica Anderson DATE: August 03, 2024 TIME: 3:07 PM [facility] 08-03-2024 Note HNO ID: [id number] Author: DIAMANTE GALINDO APRN.CNP Service: General Surgery Author Type: Nurse Practitioner Type: Progress Notes Filed: 08/03/2024 07:46 Note Text: Trauma Surgery Progress Note SERVICE DATE: 08/03/2024 Trauma Service Pager: For questions or concerns Mon-Fri 6a-5p please page [phone]. After 5pm and on Weekends and Holidays, please page [phone] if in ICU or [phone] if on RNF. SUBJECTIVE: No acute overnight events. Patient is alert and oriented x 2 (reoriented to time), FC, SOUSA. No new focal deficits. She denies any acute pain or discomfort at this time. She denies headache, dizziness, lightheadedness, changes in vision, numbness/tingling. Awaiting PT/OT/TRAVELIFT OPERATOR evaluations. OBJECTIVE: Vitals: Temp (24hrs), Av.7 ?C (98 ?F), Min:36.1 ?C (97 ?F), Max:37.4 ?C (99.4 ?F) BP 175/71 Pulse 83 Temp 37.2 ?C (98.9 ?F) (Oral) Resp 14 Ht 144.8 cm (4' 9) Wt 62.2 kg (137 lb 2 oz) SpO2 93% BMI 29.67 kg/m? O2 Therapy: Nasal Cannula IANDO: Date 08/02/24699 - 08/03/24 0608/03/24699 - 08/04/24 0659 Shift 2251-9504 5873-2429 4690-9585 24 Hour Total 4161-0131 3443-0469 1689-6771 24 Hour Total INTAKE PO 200 200 PO 200 200 IV 800 800 Volume (mL) (sodium phosphate 45 mmol in D5W 250 mL) 300 300 Volume (mL) (magnesium sulfate iv piggyback in sterile water 2 g 50 mL) 100 100 Volume (mL) (calcium gluconate iv piggyback 2 g in NaCl (iso-osmotic) 100 mL) 100 100 Volume (mL) (NaCl 0.9% iv infusion) 300 300 Shift Total 1000 1000 OUTPUT Urine 500 300 179 3947 Output ( External Collection Device 08/01/24 2204 [facility]) 500 490 493 7064 Shift Total 500 024 014 1778 Weight (kg) 62 62 62.2 62.2 62.2 62.2 62.2 62.2 MEDICATIONS: Current Facility-Administered Medications Medication Dose Route Frequency benzocaine-menthol 1 lozenge (CEPACOL) 1 lozenge MUCOUS MEMBRANE (TOPICAL MOUTH AND THROAT) q 2 H PRN acetaminophen 650 mg tab(s) (TYLENOL) 650 mg ORAL q 6 H PRN oxyCODONE IR 2.5 mg tab(s) (ROXICODONE) 2.5 mg ORAL q 6 H PRN senna-docusate 8.6-50 mg 1 tablet (SENNA-S) 1 tablet ORAL BID levETIRAcetam 500 mg tab(s) (KEPPRA) 500 mg ORAL BID insulin lispro injection (rapid acting) (ADMElog) SUBCUTANEOUS w MEALS AND HS NaCl 0.9% iv flush bag 20 mL INTRAVENOUS PRN dextrose 15 gram/32 mL 15 g (TRUEPLUS) 15 g ORAL PRN Or glucagon 1 mg injection 1 mg INTRAMUSCULAR PRN Or dextrose 10% iv bolus 12.5 g INTRAVENOUS PRN melatonin 9 mg tab(s) 9 mg ORAL DAILY (8 PM) Labs: Recent Labs 08/03/24 0213 08/03/24 0003 08/02/24 2329 08/02/24 0308 08/01/24 0559 NA 138 -- 137 138 139 K 3.7 -- 3.6* 4.3 3.3* CHLOR 100 -- 100 102 97* CO2 25 -- 25 26 32* BUN 22* -- 22* 20 26* CREAT 0.85 -- 0.81 0.76 0.83 GLUC 102* -- 105* 163* 136* ANION 13 -- 12 10 10 CA 9.3 -- 9.2 8.8 9.6 MG -- -- -- 1.4* -- P -- -- -- 3.1 -- WBC 8.04 -- 8.10 6.78 9.38 HB 10.1* -- 10.2* 10.2* 11.4* HCT 31.0* -- 31.0* 31.5* 34.4* PLT 145* -- 151 117* 156 LACT -- 0.6 0.7 -- -- INR -- -- -- -- 1.1 PH -- 7.40 -- -- -- PCO2 -- 45 -- -- -- PO2 -- 63* -- -- -- BE -- 3* -- -- -- HCO3 -- 27* -- -- -- PHYSICAL EXAM: Genl: Appears age appropriate. No acute distress. Resting comfortably. Head/Face: Normocephalic. Right frontal ecchymosis. Lip laceration with sutures. Eyes: EOMI. PERRLA. Bilateral ecchymosis and periorbital edema. Neck: No mid-line masses. C-spine non-tender. Anterior neck ecchymosis extending to chest. Back: No midline tenderness, step-offs or deformities. Resp: Lungs CTAB. No wheezes, rales or rhonchi. Respiratory status stable on 2L NC @ 93%. CVS: RRR as above. 2+ RA, DP, PT pulses bilaterally. GI: Abdomen is soft, non-tender, non-distended. No guarding or peritoneal signs. MSK: No gross deformities. No clubbing, cyanosis or edema. Normal AROM x 4. Scattered ecchymosis to bilateral upper extremities. Skin: Warm and dry. Not jaundiced. Neuro: AANDOx2. Strength and sensation grossly intact in all extremities. SOUSA. GCS14. Psych: Normal mood. Normal affect. Appropriate insight into current situation. ASSESSMENT AND PLAN: Assessment Active Hospital Problems Diagnosis Date Noted Subdural hematoma (HCC) 08/01/2024 Fall 08/02/2024 SAH (subarachnoid hemorrhage) ([facility]) 08/02/2024 Primary hypertension 08/02/2024 Hyperlipidemia 08/02/2024 Lip laceration 08/02/2024 Controlled type 2 diabetes mellitus without complication, with long-term current use of insulin ([facility]) 08/02/2024 Hypomagnesemia 08/02/2024 Thrombocytopenia 08/02/2024 Closed fracture of nasal bone 08/02/2024 84-year old female s/p mechanical fall on 08/01/24 (Trauma transfer from [place]) Imaging performed: CT HNFC, PXR (08/01- [place] [facility]) CT HNCAPTL-spine, repeat CT brain (08/01) CXR, KUB (08/02) Traumatic Injuries: Acute subdural hematoma involving the lower anterior interhemispheric fissure which measures 8 mm in maximum width. Small volume of an a (more content not included)... [facility] 08-02-2024 Note HNO ID: [id number] Author: EBEN CADENA MD Service: General Surgery Author Type: Resident Type: Plan of Care Filed: 08/02/2024 23:21 Note Text: General Surgery Plan of Care: Patient evaluated at bedside for concerns of decreasing O2 saturation. Patient has been on 2L NC today, nurse states when she went into the room earlier her sats were 85%. She increased to 4L NC and has been saturating at 90% since. She was sleeping upon entering the room. Upon evaluation patient denies any worsening shortness of breath or difficulty speaking. She also denies any chest pain, nausea/vomiting, or abdominal pain. She is barely able to get to 500 mL on IS. She has significant bruising to her face and left side of her neck, however her neck is soft and nontender with no hematoma, trachea midline. Abdomen is soft and nontender with no rebound or guarding. CXR and KUB ordered as well as new CBC, BMP, lactate, ABG. Eben Cadena MD General Surgery - PGY 1 11:17 PM 08/02/2024 [facility] 08-02-2024 Note HNO ID: [id number] Author: NIKO COTTO, BARBARA Service: Nursing Author Type: Registered Nurse Type: Nursing Progress Note Filed: 08/02/2024 18:08 Note Text: Report called to 5200 RN will transfer pt via bed [facility] 08-02-2024 Note HNO ID: [id number] Author: EVAN ROMERO PA-C Service: Neurosurgery Author Type: Physician X Ray Developing Machine Operator Type: Plan of Care Filed: 08/02/2024 14:48 Note Text: Summary: NSGY to sign off, follow up in 2 weeks Neurosurgery Plan of Care Note: Discussed with Dr. Mccarthy. Will schedule follow up with Neurotrauma outpatient clinic in 2 weeks, with [facility]. Hold ASA. Updated patient's son via phone. DC instructions placed. Ok for SQH 48 hours after stable scan. Neurosurgery to sign off. Please page with questions or concerns. Evan Romero PA-C Department of Neurosurgery Pager: [phone] [employer] Pager: [phone] August 02, 2024 2:42 PM [facility] 08-02-2024 Note HNO ID: [id number] Author: BUCK SAAVEDRA MD Service: General Surgery Author Type: Resident Type: Progress Notes Filed: 08/16/2024 21:58 Note Text: Attestation signed by Buck Saavedra MD at 08/16/2024 9:58 PM Attending Note I evaluated the patient and personally participated in the rodriguez components on 08/02/2024 I agree with the resident's findings and plan as documented and have discussed the case and management of the patient's care with the resident. Buck Saavedra MD Delayed entry Trauma Surgery Progress Note SERVICE DATE: 08/02/2024 Trauma Service Pager: For questions or concerns Mon-Fri 6a-5p please page [phone]. After 5pm and on Weekends and Holidays, please page [phone] if in ICU or [phone] if on RNF. SUBJECTIVE: NAEON. Doing well today. No focal neuro deficits. rCTH stable OBJECTIVE: Vitals: Temp (24hrs), Av.8 ?C (98.2 ?F), Min:36.2 ?C (97.2 ?F), Max:37.2 ?C (99 ?F) BP 149/54 Pulse 68 Temp 36.2 ?C (97.2 ?F) Resp 14 Ht 144.8 cm (4' 9) Wt 62 kg (136 lb 11 oz) SpO2 93% BMI 29.58 kg/m? O2 Therapy: Nasal Cannula IANDO: Date 08/01/24699 - 08/02/24 0659 08/02/24 07 - 08/03/24 0659 Shift 4840-5485 3009-6731 2890-5299 24 Hour Total 7390-0441 5128-3595 7421-1735 24 Hour Total INTAKE IV 800 800 Volume (mL) (sodium phosphate 45 mmol in D5W 250 mL) 300 300 Volume (mL) (magnesium sulfate iv piggyback in sterile water 2 g 50 mL) 100 100 Volume (mL) (calcium gluconate iv piggyback 2 g in NaCl (iso-osmotic) 100 mL) 100 100 Volume (mL) (NaCl 0.9% iv infusion) 300 300 Shift Total 800 800 OUTPUT Shift Total Weight (kg) 65.4 62 62 62 62 62 62 62 MEDICATIONS: Current Facility-Administered Medications Medication Dose Route Frequency acetaminophen 650 mg tab(s) (TYLENOL) 650 mg ORAL q 6 H PRN oxyCODONE IR 2.5 mg tab(s) (ROXICODONE) 2.5 mg ORAL q 6 H PRN senna-docusate 8.6-50 mg 1 tablet (SENNA-S) 1 tablet ORAL BID levETIRAcetam 500 mg tab(s) (KEPPRA) 500 mg ORAL BID NaCl 0.9% iv flush bag 20 mL INTRAVENOUS PRN NaCl 0.9% iv infusion 75 mL/hr INTRAVENOUS CONTINUOUS potassium chloride 20-40 mEq oral powder (KLOR-CON) 20-40 mEq ORAL/FEEDING TUBE PRN Or potassium chloride iv piggyback 20 mEq/100 mL 20 mEq INTRAVENOUS PRN sodium phosphate 30 mmol in D5W 250 mL 30 mmol INTRAVENOUS PRN(NO DISPENSE) Or sodium phosphate 45 mmol in D5W 250 mL 45 mmol INTRAVENOUS PRN(NO DISPENSE) magnesium sulfate iv piggyback in sterile water 2 g 50 mL 2 g INTRAVENOUS PRN calcium gluconate iv piggyback 2 g in NaCl (iso-osmotic) 100 mL 2 g INTRAVENOUS PRN(NO DISPENSE) dextrose 15 gram/32 mL 15 g (TRUEPLUS) 15 g ORAL PRN Or glucagon 1 mg injection 1 mg INTRAMUSCULAR PRN Or dextrose 10% iv bolus 12.5 g INTRAVENOUS PRN insulin lispro injection (rapid acting) (ADMElog) SUBCUTANEOUS q 6 H melatonin 9 mg tab(s) 9 mg ORAL DAILY (8 PM) metoprolol 5 mg injection (LOPRESSOR) 5 mg INTRAVENOUS q 6 H PRN haloperidol lactate 5 mg short-acting injection (HALDOL) 5 mg INTRAVENOUS q 6 H PRN Labs: Recent Labs 08/02/24 0308 08/01/24 0559 NA 138 139 K 4.3 3.3* CHLOR 102 97* CO2 26 32* BUN 20 26* CREAT 0.76 0.83 GLUC 163* 136* ANION 10 10 CA 8.8 9.6 MG 1.4* -- P 3.1 -- WBC 6.78 9.38 HB 10.2* 11.4* HCT 31.5* 34.4* PLT 117* 156 INR -- 1.1 PHYSICAL EXAM: GENERAL: Alert. No distress. Resting comfortably. NEURO: AANDOx3. No focal neurologic deficits. Sensation grossly intact. HEENT: Normocephalic. Scattered ecchymosis over entire face as well as periorbital swelling bilaterally. EOMI. Lip with sutures in place LUNGS: Unlabored breathing. Equal excursion bilaterally. CARDIAC: Regular rate. Good perfusion throughout. ABDOMEN: Soft, non-tender, non-distended. No rebound or guarding. EXTREMITIES: SOUSA. No deformities. SKIN: No obvious jaundice or pallor. ASSESSMENT AND PLAN: Assessment Active Hospital Problems Diagnosis Date Noted Subdural hematoma (HCC) 08/01/2024 84 year old female with PMH of CAD s/p PCI w/stents(2001) on ASA, CABG (2001) HTN, HLD, T2DM, CKD, possible Leg DVT who presents as trauma consult following a GLF on 07/31. Imaging performed: - CTHNFCAPTL-spine, PXR Traumatic Injuries: - Frontal SDH, poss SAH - mildly displaced L nasal fx - lip laceration Hospital Course: - 08/01 Admit to ICU for further monitoring Care Plan: Frontal SDH, poss SAH - NSGY consulted, appreciate recs - rCTH stable - q1NC - okay for diet from NSGY perspective - WBAT - SBP<200 - HOB>30 - Hold ASA, likely to discuss resumption at outpatient follow up - Seizure ppx: Keppra 500 mg BID x7 days - DVT ppx: SCDs, Ok for SQH 48 hours after stable scan Mildly displaced L nasal fx - PRS consulted, appreciate recs - Nasal precautions. OP f/u in 1 wee (more content not included)... [facility] 08-02-2024 Note HNO ID: [id number] Author: EVAN ROMERO PA-C Service: Neurosurgery Author Type: Physician X Ray Developing Machine Operator Type: Progress Notes Filed: 08/02/2024 09:13 Note Text: Neurosurgery Progress Note SERVICE DATE: 08/02/2024 SUBJECTIVE: NAEON. Denies any headache. Denies any nausea or emesis. Started on precedex for agitation OBJECTIVE: Vitals: Temp (24hrs), Av.1 ?C (98.7 ?F), Min:36.9 ?C (98.4 ?F), Max:37.2 ?C (99 ?F) BP 144/56 Pulse 80 Temp 36.9 ?C (98.4 ?F) (Oral) Resp 24 Ht 144.8 cm (4' 9) Wt 62 kg (136 lb 11 oz) SpO2 96% BMI 29.58 kg/m? O2 Therapy: Nasal Cannula IANDO: Neuro: GCS: Eyes: Opens eyes spontaneously (4) Verbal: Confused (4) Motor: Obeys motor commands (6) Total: 14. AANDOx2 FS. TM EOMI Facial sensation equal PERRL. Speech clear Motor Exam- RUE: 5/5 LUE: 5/5 RLE: 5/5 LLE: 5/5 Sensation: SILT Negative pronator drift General: NAD HEENT: - Scattered abrasions throughout face CV: RRR on tele Pulm: even, unlabored GI/: abdomen soft, non-tender, non-distended Skin/Extremities: Grossly normal. Symmetrical. No edema, deformity, coloration changes. Peripheral pulses -present all extremities Labs: Recent Labs 08/02/24 0308 08/01/24 0559 WBC 6.78 9.38 HB 10.2* 11.4* HCT 31.5* 34.4* PLT 117* 156 INR -- 1.1 APTT -- 25.9 NA 138 139 K 4.3 3.3* CHLOR 102 97* CO2 26 32* BUN 20 26* CREAT 0.76 0.83 GLUC 163* 136* CA 8.8 9.6 MG 1.4* -- P 3.1 -- Diagnostic tests reviewed for today's visit: Most recent labs and imaging results. ASSESSMENT AND PLAN: Active Hospital Problems Diagnosis Date Noted Subdural hematoma (HCC) 08/01/2024 Ms. Anderson is a 84 year old female with PMHx of recurrent falls, CAD s/p PCI with stents 2001 on ASA, CABG in 2001, HTN, HLD, T2DM and CKD that presents after GLF at home, found to have falx aSDH -Neuro as above -Q1 NC -Pain control: per primary -Imaging: NNI -Diet: Ok for diet from NSGY standpoint -Incision(s)/Dressing(s): N/A -Drain(s): N/A -Antibiotic(s): per primary -Activity: WBAT from NSGY standpoint -Dexamethasone: N/A -SBP <200 -HOB >30 -Hold ASA, likely to discuss resumption at outpatient follow up -Seizure ppx: Keppra 500 mg BID x7 days -DVT ppx: SCDs, Ok for SQH 48 hours after stable scan -GI ppx: Per primary Parts of this note may have been copied from one of my previous notes and remain pertinent. The documentation has been reviewed and edited as necessary to support the clinical decision making for today's visit. I spent a total of 20 minutes on the date of the service which included preparing to see the patient, [id number] patient care, completing clinical documentation, obtaining and/or reviewing separately obtained history, performing a medically appropriate examination, counseling and educating the patient/family/caregiver, ordering medications, tests, or procedures, and communicating with other HCPs (not separately reported). SIGNATURE: Evan Romero PA-C PATIENT NAME: Tamica Anderson DATE: August 02, 2024 TIME: 8:09 AM Pager: [phone] [facility] 08-02-2024 Note HNO ID: [id number] Author: NOTE, INTERFACE, ? Service: ? Author Type: ? Type: Progress Notes Filed: 08/02/2024 02:55 Note Text: Epic Scheduled Downtime: 08/02/2024 1:00:00 AM to 08/02/2024 2:37:00 AM [facility] 08-01-2024 Radiology Diagnostic study note [facility] Imaging Services [address] [place] [address] [id number] Chest without Contrast MR#: [id number] Acct: [id number] Name: TAMICA ANDERSON Rep #: [id number] : 1940 F 84 From: Solomon Britt MD PCP: Dr. Dominique Lang MD Status: RE G ER Study:Chest without Contrast Date of Exam: 08/01/24 Exam# [id number] Ordering Dr: Do Verde DO PROCEDURE: CHEST WITHOUT CONTRAST 08/01/2024 REASON FOR EXAM: RIB PAIN TECHNIQUE: Chest CT without contrast. Coronal and Sagittal reconstruction series were provided. One or more dose reduction techniques were used (e.g., Automated exposure control, adjustment of the mA and/or kV according to patient size, use of iterative reconstruction technique RADIATION DOSE SUMMARY: CTDlvol: 12.01 mGy DLP: 378.20 mGycm FINDINGS: The central airways appear patent. Areas of atelectasis right middle lobe, right lower lobe and lingula. The lungs otherwise appear clear. No pneumothorax. Thoracic aorta appears within limits on noncontrast imaging. Three-vessel heavycoronary calcification and/or stents. No pericardial or pleural effusion. Focal calcification at the head of the pancreas may represent pancreatic calcification with possible choledocholithiasis not excluded. A couple of branching calcifications at the moose hepatis may be vascular. A couple foci of air at the central liver possibly pneumobilia, correlate for history of sphincterotomy. Gallbladder is not seen. Severe left shoulder osteoarthrosis. Status post median sternotomy. Old right clavicle fracture deformity. Scoliosis. Status post vertebroplasty T11. CT/Chest without Contrast IMPRESSION: No evidence of acute intrathoracic traumatic injury on noncontrast imaging. Other findings as above. Reading Location: [id number] CC: Dr. Dominique Lang MD; Cedric Verde DO ~ Toll Gate Tender: Signed [facility] 08-01-2024 Note HNO ID: [id number] Author: BUCK SAAVEDRA MD Service: General Surgery Author Type: Resident Type: Procedures Filed: 08/16/2024 22:08 Note Text: Attestation signed by Buck Saavedra MD at 08/16/2024 10:08 PM I agree with, but was not present for the repair. Buck Saavedra MD Delayed entry BEDSIDE PROCEDURE NOTE WOUND REPAIR Date/Start Time: 08/01/2024 5:27 PM Date/Stop Time: 08/01/2024 5:27 PM Performed by: Tu Galvez DO Authorized by: Jeremy Irving MD Where was Patient When this Procedure was Performed: Bedside/Unscheduled Procedure Room This procedure has been performed in part by a resident/fellow under attending's direction Informed Consent Consent Obtained: Verbal [place] Protocol A moment to CARE was completed. SIGN IN Personnel directly involved with the procedure wore the appropriate PPE. Special Equipment: N/A Patient/Surrogate Stated/Verified: Patient name and Intended procedure TIME OUT Correct side/site marked and visible. Pre-Procedure Details: The area was prepped with povidone Iodine (Betadine) and allowed to dry. A sterile partial body drape was applied following the usual aseptic technique. Medications: Local Anesthesia (see MAR): Lidocaine 1% Procedure Details: Number of Wounds: 1 Wound 1 Type: Laceration Body Area: Mouth Location Details: Submucosal Measurements: Wound Length (cm): 2 Wound Width (cm): 1 Debridement Layer: subcutaneous tissue Wound Age (days): <1 Mechanism of Injury: Ground level fall Irrigation Solution: Wound cleaning solution Foreign Body: No Suture Type: Absorbable Suture Technique: Simple interrupted Number of Sutures: 4 Approximation: Adequate Post-Procedure Details: Patient Tolerance: Patient tolerated the procedure well with no immediate complications Estimated Blood Loss: none Specimens Sent: none SIGN OUT All specimens correctly labeled and sent. All instruments, equipment, possible retained foreign bodies accounted for. The post-procedure POC has been communicated to the patient or surrogate. Post-procedure POC communicated to patient's multidisciplinary team (including bedside nurse for hospitalized patients). SIGNATURE: Tu Galvez DO PATIENT NAME: Tamica Anderson DATE: August 01, 2024 TIME: 5:27 PM [facility] 08-01-2024 Radiology Diagnostic study note [facility] Imaging Services [address] [place] [address] Sinus/Facial Bone MR#: [id number] Acct: [id number] Name: TAMICA ANDERSON Rep #: [id number] : 1940 F 84 From: Solomon Britt MD PCP: Dr. Dominique Lang MD Status: RE G ER Study:Sinus/Facial Bone Date of Exam: Exam# [id number] Ordering Dr: Do Verde DO PROCEDURE: SINUS/FACIAL BONE REASON FOR EXAM: FACIAL INJURY TECHNIQUE: CT of the paranasal sinuses without contrast. Coronal and Sagittal reconstruction series were provided. One or more dose reduction techniques were used (e.g., Automated exposure control, adjustment of the mA and/or kV according to patient size, use of iterative reconstruction technique). COMPARISON: None. FINDINGS: Mildly displaced left nasal fracture. Left nasal lobular high density soft tissue collection measuring 2.6 x 1.1 cm consistent with soft tissue hematoma with left facial, periorbital and preseptal soft tissue swelling. Globes appear intact without retro bulbar stranding. The paranasal sinuses and mastoids are clear. TMJs appear normally located. Mild leftward deviation of the nasal septum with left-sided nasal spur. Edentulous. Please refer to head CT report for description of intracranial hemorrhage. CT/Sinus/Facial Bone IMPRESSION: Mildly displaced left nasal fracture. Left nasal lobular high density soft tissue collection measuring 2.6 x 1.1 cm consistent with soft tissue hematoma with left facial, periorbital and preseptal soft tissue swelling. Globes appear intact without retro bulbar stranding. Reading Location: [id number] CC: Dr. Dominique Lang MD; Cedric Verde DO ~ [employer]oll Gate Tender: Signed [facility] 08-01-2024 Discharge summary [facility] 08-01-2024 Radiology Diagnostic study note [facility] Imaging Services [address] [place] [address] Spine Cervical without Contras MR#: [id number] Acct: [id number] Name: TAMICA ANDERSON Rep #: [id number] : 1940 F 84 From: Solomon Britt MD PCP: Dr. Dominique Lang MD Status: RE G ER Study:Spine Cervical without Contras Date of Exam: 08/01/24 Exam# [id number] Ordering Dr: Do Verde DO PROCEDURE: SPINE CERVICAL WITHOUT CONTRAS 08/01/2024 REASON FOR EXAM: HEAD INJURY TECHNIQUE: Cervical spine CT without contrast. Coronal and Sagittal reconstruction series were provided. One or more dose reduction techniques were used (e.g., Automated exposure control, adjustment of the mA and/or kV according to patient size, use of iterative reconstruction technique RADIATION DOSE SUMMARY: CTDlvol: 13.59 mGy DLP: 272.41 mGycm FINDINGS: The head is tilted to the left. No fracture or malalignment. No prevertebral soft tissue swelling. Multilevel spondylosis/discogenic change greatest at C5-6 and C6-7. Bilateral C3-4 facet degenerative changes. Bilateral carotid calcific plaque noted. Visualized apices appear clear. CT/Spine Cervical without Contras IMPRESSION: The head is tilted to the left. No fracture or malalignment. Multilevel spondylosis/discogenic change greatest at C5-6 and C6-7. Bilateral C3-4 facet degenerative changes. Reading Location: [facility] CC: Dr. Dominique Lang MD; Cedric Verde DO ~ Toll Gate Tender: Signed [facility] 08-01-2024 Radiology Diagnostic study note [facility] Imaging Services [address] [place] [address] [id number] Brain/Head without Contrast MR#: [id number] Acct: [id number] Name: TAMICA ANDERSON Rep #: [id number] : 1940 F 84 From: Solomon Britt MD PCP: Dr. Dominique Lang MD Status: MO E ER Study:Brain/Head without Contrast Date of Exa m: 08/01/24 Exam# [id number] Ordering Dr: Do Verde DO PROCEDURE: BRAIN/HEAD WITHOUT CONTRAST 08/01/2024 REASON FOR EXAM: HEAD INJURY TECHNIQUE: Head CT without intravenous contrast. Coronal and Sagittal reconstruction serieswere provided. One or more dose reduction techniques were used (e.g., Automated exposure control, adjustment of the mA and/or kV according to patient size, use of iterative reconstruction technique. RADIATION DOSE SUMMARY: CTDlvol: 44.99 mGy DLP: 812.98 mGycm COMPARISON: 09/21/2021 FINDINGS: Mild off axis imaging. Small amount of acute appearing subdural hemorrhage anterior inferior interhemispheric frontal measures up to 7 mm in thickness axial 21 and coronal 23. There appears to be some traceadjacent sulcal inferior frontal possible subarachnoid hemorrhage. No midline shift. No calvarial fracture. Please refer to facial CT report for nasal and facial soft tissue swelling, injury. The ventricles are unchanged in size and remain midline. Chronic and involutional changes. CT/Brain/Head without Contrast IMPRESSION: Small amount of acute appearing subdural hemorrhage anterior inferior interhemispheric frontal measures up to 7 mm in thickness axial 21 and coronal 23. There appears to be some trace adjacent sulcal inferior frontal possible subarachnoid hemorrhage. No midline shift. Findings discussed by myself by phone and informed that Dr. Verde is aware of head bleed at 1:05 a.m. 08/01/2024 Reading Location: [facility] CC: Dr. Dominique Lang MD; Cedric Verde DO ~ Toll Gate Tender: Signed [facility] 08-01-2024 Radiology Diagnostic study note [facility] Imaging Services [address], [place] [address] Pelvis 1 or 2 Views MR#: [id number] Acct: [id number] Name: TAMICA ANDERSON Rep #: [id number] 6 : 1940 F 84 From: Solomon Britt MD PCP: Dr. Dominique Lang MD Status: MO E ER Study:Pelvis 1 or 2 Views Date of Exam: 08/01/24 Exam# [id number] Ordering Dr: Do Verde DO PROCEDURE: PELVIS 1 OR 2 VIEWS 08/01/2024 REASON FOR EXAM: FALL TECHNIQUE: 1 view(s) of the pelvis. COMPARISON: None available FINDINGS: Patient is rotated to the left. No fracture or dislocation identified. Right hip osteoarthrosis with medial joint space narrowing. Partially imaged left femoral gamma nail. Bilateral SI joints and pubic symphysis appear within limits. RAD/Pelvis 1 or 2 Views IMPRESSION: Patient is rotated to the left. No fracture or dislocation identified. Reading Location: [facility] CC: Dr. Dominique Lang MD; Cedric Verde DO ~ Toll Gate Tender: Signed [facility] 06-16-2024 Evaluation note Diagnosis Onset Date Resolution Chronic edema chronic June 16, 2024 12:47pm Essential (primary) hypertension chronic June 16, 2024 12:47pm HLD (hyperlipidemia) chronic June 16, 2024 12:47pm 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, resolved June 16, 2024 12:47pm Anxiety chronic June 30 2:59pm Sleep apnea chronic June 30 025 2:59pm [facility] Work Phone: 1(191) 311-592803-17-2025 Nuclear medicine Diagnostic study note [facility] Imaging Services [address] [place] [address] Gastric Emptying Study MR#: [id number] Acct: [id number] Name: TAMICA ANDERSON Rep #: [id number] : 1940 F 84 From: Demar Erazo MD PCP: Dr. Dominique Lang MD Status: RE G CLI Study:Gastric Emptying Study Date of Exam: 06/01/24 Exam# [id number] Ordering Dr: Dominique Lang MD PROCEDURE: GASTRIC EMPTYING STUDY REASON FOR EXAM: EARLY SATIETY TECHNIQUE: The patient ingested a mixture of 1.1 mCi of technetium labeled sulfur colloid with oatmeal. A gastric emptying study was obtained. RADIOPHARMACEUTICAL: 1.1 mCi of technetium labeled sulfur colloid. COMPARISON: None. FINDINGS: The study was carried out for 60 minutes. At 60 minutes, 69% of the radiopharmaceutical exited the stomach. This is a normal study. NM/Gastric Emptying Study IMPRESSION: Normal gastric emptying scan. Reading Location: [facility] CC: Dr. Dominique Lang MD ~ Toll Gate Tender: Signed [facility]01-15-2025 Evaluation note* Diagnosis Onset Date Resolution Status Admit Date Cough acute April 01, 2024 2:35pm KATTY (obstructive sleep apnea) chroni c April 01, 2024 2:35pm [facility] Work Phone: 1(157) 543-233301-15-2025 Evaluation note* Diagnosis Onset Date Resolution Status Admit Date Cough acute April 01, 2024 2:35pm KATTY (obstructive sleep apnea) delete d April 01, 2024 2:35pm Chronic edema chronic June 16, 2024 12:47pm Essential (primary) hypertension chronic June 16, 2024 12:47pm HLD (hyperlipidemia) chronic Apri 2024 12:47pm 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, resolved June 16, 2024 12:47pm Anxiety chronic June 30 2:59pm Sleep apnea chronic June 30 025 2:59pm [facility] Work Phone: 1(744) 660-405508-01-2002 Evaluation note* Diagnosis Onset Date Resolution Status Essential (primary) hypertension chronic HLD (hyperlipidemia) chronic 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, resolved Atherosclerotic heart diseas e of [place] coronary artery without angina pectoris chronic Essential (primary) hypertension chronic HLD (hyperlipidemia) chronic Iron deficiency anemia chron ic Blood loss anemia resolved Closed left hip fracture res olved Anxiety acute Coronary artery disease acut e Debility acute Depression acute Diabetes mellitus acute Gastroesophageal reflux disease acute Hyperlipidemia acute Hypokalemia acute Sleep apnea acute Hypertension chronic Iron deficiency anemia chron ic Blood loss anemia resolved Closed left hip fracture res olved Fall resolved Pancreatitis resolved Right bundle branch block re solved [facility] Work Phone: 1(942) 957-562708-01-2002 Evaluation note* Diagnosis Onset Date Resolution Status Essential (primary) hypertension chronic HLD (hyperlipidemia) chronic 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, resolved [facility] Work Phone: 1(230) 690-163408-01-2002 Evaluation note* Diagnosis Onset Date Resolution Status KATTY (obstructive sleep apnea) chronic Essential (primary) hypertension chronic HLD (hyperlipidemia) chronic 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, resolved [facility] Work Phone: Discharge summary Author Cedric Verde [facility] Note Date/Time August 01, 2024 2:05a m [facility] Medical Records Department [address] [place] [address] Emergency Department Summary 08/01/24 MR#: [id number] Acct: [id number] Name: TAMICA ANDERSON #:[id number] : 1940 84 From: Cedric Verde DO PCP: Dr. Dominique Lang MD Status:RE G ER Location: ED HPI History of Present Illness Chief Complaint: Fall Informant: patient and family Narrative Narrative: Patient is an 84-year-old female who lives with family and has past medical history of coronary artery disease hypertension hyperlipidemia diabetes and chronic kidney disease. Patient and family report that she has been falling more frequently over the last few months. Patient and family state that she fell on Mother's Day striking the right side of her head. She then fell on Saturday injuring the back of her head. After these events she was not seen inthe ER. However today she states she got up to use the bathroom around 930/10 PM. She states that she believes she tripped while using her walker and fell face first. She states that it did cause loss of consciousness. Son states that he heard the fall and when he went to her she was awake but groggy. He states after a few minutes she returned to her baseline mental status. However she had bruising to her face and bleeding from her nose and also sustained a upper lip laceration. Therefore at this event being more traumatic than the previous 2 she was brought in for evaluation. Patient states that she has mild pain to her face but otherwise has no complaints. Patient states she takes baby aspirin but no true blood thinner such as Eliquis Coumadin or Xarelto. [facility] Medical History Impingement of left shoulder Intertriginous candidiasis Incontinence Physical debility CPAP (continuous positive airway pressure) dependence Sleep apnea Fracture of right wrist with routine healing Obesity Right bundle branch block (RBBB) Pancreatitis Diabetes mellitus GERD (gastroesophageal reflux disease) HLD (hyperlipidemia) Essential (primary) hypertension Atherosclerotic heart disease of [place] coronary artery without angina pectoris Home Medications ?Medication ?Instructions ?Recorded ?Last Taken ?Type aspirin 81 mg tablet,delayed 81 mg PO DAILY heart 0 12/0405/18/21 History release (Adult Aspirin Regimen) furosemide 40 mg tablet 40 mg PO DAILY edema 2 05/18/21 History potassium chloride 10 mEq 10 meq PO DAILY supplement 0 05/22/21 Unknown History tablet,extended release rosuvastatin 10 mg tablet (Crestor) 10 mg PO DAILY cho lesterol 05/22/21 Unknown History acetaminophen 500 mg capsule 500 mg PO Q6H PRN Pain Unknown History nystatin 100,000 unit/gram topical 1 applic topical TI D PRN 04/26/22 Unknown History ointment calcium carbonate 600 mg PO DAILY 06/10/23 Unk nown History buspirone 10 mg tablet 10 mg PO TID 06/16/24 Unknow n History gabapentin 100 mg capsule 100 mg PO QDAY 06/16/24 Unkn own History metformin 500 mg tablet 1,000 mg PO QDAY diabetes Unknown History metronidazole 0.75 % lotion 1 applic topical BID 06/16 Unknown History triamcinolone acetonide 0.5 % topical BID 06/16/24 Unk nown History topical ointment clonazepam 0.5 mg tablet 0.5 mg PO BID PRN anxiety Unknown History cyclosporine 0.05 % eye drops in a 1 drp ophthalmic (e ye) BID 08/01/24 Unknown History dropperette sertraline 50 mg tablet 50 mg PO DAILY 08/01/24 Unkn own History Allergy/AdvReac Type Severity Reaction Status Date / Time adhesive tape AdvReac Unknown Verified 07/31/24 23:35 morphine AdvReac Vomiting Verified 07/31/24 23:35 Erwzcwz-TBI-KzR Reductase AdvReac Pain in Verified 07/31/24 23:35 Inhibitor (Xptlamb-Wau-Hyo joints Reductase Inhibitor) Family History Mother Hypertension Other CAD (coronary artery disease) Surgical History Fracture of left hip requiring operative repair Status post cardiac surgery Hx of hysterectomy Hx of cholecystectomy Hx of appendectomy History of coronary artery stent placement (11/17/14) 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) Social History household members: spouse Smoking Status: Never smoker alcohol intake: never substance use type: does not use caffeine: Yes Type: carbonated beverages what type of physical activity do you participate in: none seatbelt use: always do you feel safe at home: Yes ROS ROS ED Constitutional Constitutional ED: Denies chills or fever(s) Eyes Eyes: Denies blurry vision or change in vision ENT ENT ED: Reports other Details: Positive nosebleed ; Denies sore throat Cardiovascular Cardiovascular: Reports other Details: Positive syncope ; Denies chest pain or palpitations Respiratory/Chest Respiratory/Chest: Denies cough or dyspnea Gastrointestinal Gastrointestinal: Denies abdominal pain, diarrhea, nausea or vomiting Genitourinary Genitourinary ED: Denies dysuria Musculoskeletal Musculoskeletal: Denies back pain or neck pain Integumentary Reports other Details: Positive facial bruising and upper lip laceration Neurologic Neurologic: Denies headache(s), paresthesias or weakness Hematologic/Lymphatic Hematologic/Lymphatic: Denies easy bleeding or easy bruising EXAM Physical Exam Const Vital Signs: 07/31/24 23:35 07/31/24 23:40 08/01/24 00:30 Temperature 96.9 F L Temperature Source Axillary Pulse Rate 68 69 Respiratory Rate 16 18 Respiratory Effort Normal Respiratory Depth Normal Respiratory Pattern Normal Blood Pressure 185/69 H 186/73 H Blood Pressure Mean 107 110 Pulse Ox 93 94 93 Oxygen Delivery Method Room Air Room Air Room Air 08/01/24 01:00 Temperature Temperature Source Pulse Rate 66 Respiratory Rate 18 Respiratory Effort Respiratory Depth Respiratory Pattern Blood Pressure 178/71 H Blood Pressure Mean 106 Pulse Ox 93 Oxygen Delivery Method Room Air Positive well nourished, well developed and obese General Appearance ED: well developed Nutritional Appearance: obese HEENT HEENT Narrative: Patient has multiple areas of soft tissue swelling and ecchymosis to the face consistent with her recurrent falls. She has a hematoma and ecchymosis along the right frontal and temporal portion of the scalp. There is ecchymosis and soft tissue swelling across the nasal bridge as well as periorbital ecchymosis bilaterally. Patient has a small hematoma along the right occipital portion of the scalp as well. There is mild ooze of blood from bilateral nostrils. No obvious septal hematoma. No signs of jaw fracture Patient does have a full-thickness layer mid upper lip laceration that crosses the vermilion border and is 2 cm in length. Eyes PERRL and EOMs intact bilaterally Eyes Narrative: No hyphema noted Neck supple Neck Narrative: No bony deformity or step-off of the cervical spine no midline tenderness to palpation Chest Wall Chest Narrative: There is mild right anterior lateral chest wall pain with palpation rib regions 8-10. Patient does report previous rib fractures on that side. No bony deformity or subcutaneous emphysema Resp normal respiratory effort and clear to auscultation bilaterally Resp Narrative: Breath sounds are diminished throughout but overall clear to auscultation without signs of distress Cardio regular rate and regular rhythm GI normal to inspection, nondistended, normoactive bowel sounds, non-tender, non-distended and no masses GI Narrative: No voluntary guarding or rigidity or pulsatile mass Auscultation: normoactive bowel sounds Palpation: soft Back/Spine Back/Spine Narrative: No bony deformity or step-off of the thoracic or lumbar spine no midline tenderness to palpation Extremity Extremity Narrative: Pelvis is stable there is no shortening or external rotation of either lower extremity Patient does have chronic edema to bilateral lower extremities slightly greater on the left Neuro oriented x3, CN's II-XII intact bilaterally and no sensory deficits noted Sensorium / Orientation: alert Motor Exam: strength 5/5 throughout Psych mental status grossly normal Skin Skin Narrative: Multiple areas of ecchymosis and hematoma to the head as documented above There is the mid upper lip laceration as documented above as well. MDM MDM MDM Narrative Medical decision making narrative: Patient reported multiple falls over the past week each with bouts of head injury. There is concern for underlying skull fracture versus subarachnoid or subdural hemorrhage. Patient may also have nasal bone fracture or facial fracture. Based on the recurrent traumas there is concern for cervical compression fracture and potential pelvic injury. Secondary to this CTs of the head neck and face were obtained. With her report of rib pain there is also concern for rib fracture versus pulmonary contusion versus pneumothorax so a noncontrast CT of the chest was ordered. The head CT revealed a small 7 mm bleed. As she has had multiple falls recently but no previous evaluation it is unknown if this is acute from today's fall or from previous. I have to assume that the blood is acute from the fall just a few hours ago. With concern that the bleeding could worsen and lead to neurologic compromise she will need transfer to a trauma center where she can evaluated by trauma surgeon as well asneurosurgeon. Secondary to this the case was discussed with Kevin Castillo. They agreed except to the ER and trauma transfer. The patient is only on a babyaspirin and as she is neurologically intact there is no need for DDAVP at this time. The plan was to suture her upper lip laceration in the ER but as she is going to a level 1 trauma center where plastic surgery is available I feel they would be more appropriate to close the wound. This plan of care was discussed with the patient and family and they are agreeable to it. At this time she is hemodynamically stable without neurologic finding. Therefore there is no need for an emergent transfer by [facility] but she is safe to go by ground transport. Plan of care was discussed with patient and family and they are ableto it and therefore we transferred her to [facility] For continued neurosurgery and trauma care. History & Record Review Discussion w/independent historian: Patient and Family Lab Data Attestation: I reviewed the patient's lab results. Labs: Laboratory Results - last 24 hr 08/01/24 00:54 WBC 9.1 RBC 3.79 L Hgb 11.2 L Hct 33.8 L MCV 89.2 MCH 29.6 MCHC 33.1 RDW Std Deviation 42.5 RDW Coeff of Angel 13.0 Plt Count 157 MPV 9.2 Immature Gran % (Auto) 0.600 Neut % (Auto) 75.0 H Lymph % (Auto) 12.0 L [place] % (Auto) 9.5 Eos % (Auto) 2.5 Baso % (Auto) 0.4 Absolute Neuts (auto) 6.8 Absolute Lymphs (auto) 1.09 Nucleated RBC % 0 PT 14.3 INR 1.1 APTT 28.8 Sodium 140 Potassium 3.7 Chloride 98 Carbon Dioxide 29.6 Anion Gap 12 BUN 30 H Creatinine 0.87 Estim Creat Clear Calc 40.64 L Est GFR (MDRD) Non-Af 66 BUN/Creatinine Ratio 34.0 H Glucose 176 H Calcium 9.5 Radiography Diagnostic Testing: Clinical Impression(s) from Imaging Studies Brain CT 08/01/24 00:18 IMPRESSION: Small amount of acute appearing subdural hemorrhage anterior inferior interhemispheric frontal measures up to 7 mm in thickness axial 21 and coronal 23. There appears to be some trace adjacent sulcal inferior frontal possible subarachnoid hemorrhage. No midline shift. Findings discussed by myself by phone and informed that Dr. Verde is aware of head bleed at 1:05 a.m. 08/01/2024 Reading Location: [facility] Pelvis X-Ray 08/01/24 00:40 IMPRESSION: Patient is rotated to the left. No fracture or dislocation identified. Reading Location: [facility] Pelvis x-ray as interpreted by the emergency medicine physician reveals no acutefracture or dislocation Management Discussion w/another healthcare provider: Fertilizer Applicator and Radiologist Critical Care Time Critical Care Time: Yes Critical care time (excluding procedures): Discussing w/Patient &/or Family/CareGiver, Discussing w/Consultants, Arranging Admission or Transfer and - (Criticalcare time of 31 minutes) Discharge Plan Triage Chief Complaint: Fall ED Provider: Cedric Verde Dx/Rx/DC Orders Clinical Impression: Subdural hemorrhage, Diabetes mellitus, Essential (primary) hypertension, Hyperlipidemia, Chronic kidney disease, stage 3 unspecified, Recurrent falls, Complex laceration of face Prescriptions: No Action aspirin [Adult Aspirin Regimen] 81 mg tablet,delayed release (DR/EC) 81 mg PO DAILY nystatin 100,000 unit/gram ointment 1 applic topical TID PRN acetaminophen 500 mg capsule 500 mg PO Q6H PRN (Reason: Pain) calcium carbonate 600 mg calcium (1,500 mg) tablet 600 mg PO DAILY gabapentin 100 mg capsule 100 mg PO QDAY triamcinolone acetonide 0.5 % ointment topical BID buspirone 10 mg tablet 10 mg PO TID metronidazole 0.75 % lotion 1 applic topical BID clonazepam 0.5 mg tablet 0.5 mg PO BID PRN (Reason: anxiety) metformin 500 mg tablet 1,000 mg PO QDAY furosemide 40 mg tablet 40 mg PO DAILY potassium chloride 10 mEq tablet extended release 10 meq PO DAILY rosuvastatin [Crestor] 10 mg tablet 10 mg PO DAILY sertraline 50 mg tablet 50 mg PO DAILY cyclosporine 0.05 % dropperette 1 drp ophthalmic (eye) BID Primary Care Provider: Dominique Lang Referrals: Dominique Lang MD [Primary Care Provider] - Print Language: [place] Disposition Disposition: Acute Care Hospital Discharge Location: [facility] What to do if you have Problems For any increased pain, shortness of breath, bleeding, nausea or vomiting, chestpain, or any unexpected problems, contact your Primary Care Provider. Call [employer] [facility] ([phone]) or report to the closest Emergency Room. Call 911 if necessary. 08/01/24 0205 <Electronically signed by Cedric Verde DO> Cosigner Signature (if applicable): CC: Dr. Dominique Lang MD ~ Signed [facility] Work Phone: Evaluation note* Diagnosis Onset Date Resolution Status Anxiety acute Coronary artery disease acut e Debility acute Depression acute Diabetes mellitus acute Gastroesophageal reflux disease acute Hyperlipidemia acute Hypokalemia acute Sleep apnea acute Hypertension chronic Iron deficiency anemia chron ic Blood loss anemia resolved Closed left hip fracture res olved Fall resolved Pancreatitis resolved Right bundle branch block re solved [facility] Work Phone: Evaluation noteNo assessment information available [facility] Work Phone: Evaluation note* Diagnosis Subdural hematoma (HCC) Subdural hemorrhage [facility] Phone: Reason for referral (narrative)No reason for referral information availableSum[facility] Health [facility] Work Phone: Reason for visit Narrative* MRI/CT (Routine) - Closed Specialty Diagnoses / Procedures Referred By Brea t Referred To Contact CT IMAGING Diagnoses Subdural hematoma (HCC) Procedures CT BRAIN WO IVCON CT HEAD/BRAIN W/O CONTRAST MATERIAL Evan Romero PA-C [address] [place] [address] Phone: tel: fax: [place] [address] Referral ID Status Reason Start Date Expiration Date V isits Requested Visits Authorized [id number] Closed Auto-Generate d Referral 08/02/2024 09/01/2025 1 1 [facility] Summary Purpose Family History Relationship Condition Age at Onset Recorded Date/T tamie Not Specified Coronary artery disease Unknown mother Hypertension Unknown Advance Directives Advance Directive Response Recorded Date/ Time Name of Medical Power of Neonatal Doctor fide May 18, 2021 3:35pm Living Will Yes May 23, 2021 10:29am Power of Neonatal Doctor Yes May 23 10:29am Advance Directive Response Recorded Date/ Time Name of Medical Power of Neonatal Doctor [facility] May 18, 2021 3:35pm Name of Medical Power of Neonatal Doctor Francisco Javier Wong, dtr May 23, 2021 10:29am Living Will No August 16, 2021 7 :11pm Power of Neonatal Doctor Yes August 16, 2021 7:11pm Advance Directive Response Recorded Date/ Time Name of Medical Power of Neonatal Doctor Francisco Javier Wong, dtr May 23, 2021 10:29am Name of Medical Power of Neonatal Doctor francisco javier aguilar August 16, 2021 7:11pm Name of Medical Power of Neonatal Doctor FIDE FORD September 21, 2021 6:58pm Living Will Yes September 21, 2021 6 :58pm Power of Neonatal Doctor Yes September 21, 2021 6:58pm Advance Directive Response Recorded Date/ Time Name of Medical Power of Neonatal Doctor francisco javier aguilar August 16, 2021 7:11pm Name of Medical Power of Neonatal Doctor FIDE DONEOYASMIN September 21, 2021 6:58pm Living Will Yes September 21, 2021 6 :58pm Power of Neonatal Doctor Yes September 21, 2021 6:58pm Advance Directive Response Recorded Date/ Time Living Will Yes September 21, 2021 6 :58pm Power of Neonatal Doctor Yes September 21, 2021 6:58pm Advance Directive Response Recorded Date/ Time Name of Medical Power of Neonatal Doctor FRANCISCO JAVIER WONG- DAUGHTER July 07, 2022 11:11am Living Will Yes July 07, 2022 11:11am Power of Neonatal Doctor Yes July 07 11:11am Advance Directive Response Recorded Date/ Time Living Will Yes July 07, 2022 11:11am Power of Neonatal Doctor Yes July 07 11:11am Advance Directive Response Recorded Date/ Time Living Will Yes September 14, 2023 12:09pm Do you have a Healthcare Power of Neonatal Doctor? No September 14, 2023 12:09pm Advance Directive Response Recorded Date/ Time Living Will Yes September 14, 2023 12:09pm Do you have a Healthcare Power of Neonatal Doctor? No September 14, 2023 12:09pm Living Will Yes December 06, 2023 9:16pm Do you have a Healthcare Power of Neonatal Doctor? No December 06, 2023 9:16pm Advance Directive Response Recorded Date/ Time Living Will Yes December 06, 2023 9:16pm Do you have a Healthcare Power of Neonatal Doctor? No December 06, 2023 9:16pm Do you have a Healthcare Power of Neonatal Doctor? Yes July 31, 2024 11:40pm Name of Medical Power of Neonatal Doctor FRANCISCO JAVIER WONG July 31, 2024 11:40pm Date Activated Date Inactivated Comments 08/07/2024 1:25 PM 08/21/2024 4:53 PM Question Answer Comments Full Code Order Discussed With: Patient Date Activated Date Inactivated Comments 08/01/2024 1:15 PM 08/06/2024 2:21 PM Question Answer Comments Full Code Order Discussed With: Patient Advance Directive Response Recorded Date/ Time Living Will Yes December 06, 2023 9:16pm Do you have a Healthcare Pow er of Neonatal Doctor? No December 06, 2023 9:16pm Do you have a Healthcare Pow er of Neonatal Doctor? Yes July 31, 2024 11:40pm Name of Medical Power of Neonatal Doctor FRANCISCO JAVIER WONG July 31, 2024 11:40pm Do you have a Healthcare Pow er of Neonatal Doctor? 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 Essential (primary) hypertension HLD (hyperlipidemia) Iron deficiency anemia Blood loss anemia Closed left hip fracture Anxiety Coronary artery disease Debility Depression Diabetes mellitus Gastroesophageal reflux disease Hyperlipidemia Hypokalemia Sleep apnea Hypertension Iron deficiency anemia Blood loss anemia Closed left hip fracture Fall Pancreatitis Right bundle branch block Chief Complaint 1 Y FU cad cad LEFT HIP FXR HIP FRACTURE LEFT HIP FXR LEFT HIP FXR LEFT HIP FXR LEFT HIP FXR LEFT HIP FX 2 units PRBC's EORDER LABS Reason for Visit Essential (primary) hypertension HLD (hyperlipidemia) 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 Essential (primary) hypertension HLD (hyperlipidemia) Iron deficiency anemia Blood loss anemia Closed left hip fracture Anxiety Coronary artery disease Debility Depression Diabetes mellitus Gastroesophageal reflux disease Hyperlipidemia Hypokalemia Sleep apnea Hypertension Iron deficiency anemia Blood loss anemia Closed left hip fracture Fall Pancreatitis Right bundle branch block Chief Complaint 1 Y FU cad cad LEFT HIP FXR HIP FRACTURE LEFT HIP FXR LEFT HIP FXR LEFT HIP FXR LEFT HIP FXR LEFT HIP FX 2 units PRBC's EORDER LABS FALL Reason for Visit Essential (primary) hypertension HLD (hyperlipidemia) 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 Essential (primary) hypertension HLD (hyperlipidemia) Iron deficiency anemia Blood loss anemia Closed left hip fracture Anxiety Coronary artery disease Debility Depression Diabetes mellitus Gastroesophageal reflux disease Hyperlipidemia Hypokalemia Sleep apnea Hypertension Iron deficiency anemia Blood loss anemia Closed left hip fracture Fall Pancreatitis Right bundle branch block Chief Complaint LEFT HIP FX EORDER LABS FALL HEAD INJURY Reason for Visit Anxiety Coronary artery disease Debility Depression Diabetes mellitus Gastroesophageal reflux disease Hyperlipidemia Hypokalemia Sleep apnea Hypertension Iron deficiency anemia Blood loss anemia Closed left hip fracture Fall Pancreatitis Right bundle branch block Chief Complaint EORDER LABS FALL HEAD INJURY FREQUENT FALLS/BALANCE/LE WEAKNESS.PT HAS RX Chief Complaint FALL HEAD INJURY FREQUENT FALLS/BALANCE/LE WEAKNESS.PT HAS RX Chief Complaint 1 Y FU Reason for Visit Essential (primary) hypertension HLD (hyperlipidemia) H/O coronary artery bypass surgery Chief Complaint LEFT LEG CELLULITIS Chief Complaint EORDER LABS AND XRAY S OF SPINE- FALL,TRAUMA,PAIN Chief Complaint EORDER LABS AND XRAY S OF SPINE- FALL,TRAUMA,PAIN Sleep apnea- Reestablish 1 Y FU SLEEP APNEA Reason for Visit KATTY (obstructive sle ep apnea) Essential (primary) hypertension HLD (hyperlipidemia) H/O coronary artery bypass surgery Chief Complaint EORDER LABS AND XRAY S OF SPINE- FALL,TRAUMA,PAIN Sleep apnea- Reestablish 1 Y FU SLEEP APNEA KATTY,AUTOPAP Reason for Visit KATTY (obstructive sle ep apnea) Essential (primary) hypertension HLD (hyperlipidemia) H/O coronary artery bypass surgery Chief Complaint Admit Date 6 M FU April 01, 2024 2 :35pm G47.33 - Obstructive sleep apnea (adult) (pediatri April 14, 2024 1:00pm EARLY SATIETY June 01, 2024 11: 39am Reason for Visit Admit Date Cough April 01, 2024 2 :35pm KATTY (obstructive sleep apnea) April 012024 2:35pm Chief Complaint Admit Date 6 M FU April 01, 2024 2 :35pm G47.33 - Obstructive sleep apnea (adult) (pediatri April 14, 2024 1:00pm EARLY SATIETY June 01, 2024 11: 39am 6 M FU June 16, 2024 12:4 7pm 3 M FU June 30, 2024 2:5 9pm SOB/DYSPNEA July 24, 2024 11:52a m Reason for Visit Admit Date Cough April 01, 2024 2 :35pm KATTY (obstructive sleep apnea) April 012024 2:35pm Chronic edema June 16, 2024 12:4 7pm Essential (primary) hypertension June 162024 12:47pm HLD (hyperlipidemia) June 16, 2024 12: 47pm H/O coronary artery bypass surgery June 16, 2024 12:47pm Anxiety June 30, 2024 2:5 9pm Sleep apnea June 30, 2024 2:5 9pm Chief Complaint Admit Date G47.33 - Obstructive sleep apnea (adult) (pediatri April 14, 2024 1:00pm EARLY SATIETY June 01, 2024 11: 39am 6 M FU June 16, 2024 12:4 7pm 3 M FU June 30, 2024 2:5 9pm SOB/DYSPNEA July 24, 2024 11:52a m FALL July 31, 2024 11:34 pm Reason for Visit Admit Date Chronic edema June 16, 2024 12:4 7pm Essential (primary) hypertension June 162024 12:47pm HLD (hyperlipidemia) June 16, 2024 12: 47pm H/O coronary artery bypass surgery June 16, 2024 12:47pm Anxiety June 30, 2024 2:5 9pm Sleep apnea June 30, 2024 2:5 9pm Chief Complaint Admit Date EARLY SATIETY June 01, 2024 11: 39am 6 M FU June 16, 2024 12:4 7pm 3 M FU June 30, 2024 2:5 9pm SOB/DYSPNEA July 24, 2024 11:52a m FALL July 31, 2024 11:34 pm EORDERS September 16, 2024 3:24p m Chief Complaint Admit Date 6 M FU June 16, 2024 12:4 7pm 3 M FU June 30, 2024 2:5 9pm SOB/DYSPNEA July 24, 2024 11:52a m fallJuly 31, 2024 11:34 pm EORDERS September 16, 2024 3:24p m [facility] October 05, 2024 9:50 am Additional Source Comments INFORMATION SOURCE (unrecogn ized section and content) DATE CREATED AUTHOR 10/13/2017 [facility] ([place]) DATE CREATED AUTHOR AUTHOR'S ORGANIZ ATION 08/25/2024 [facility] DATE CREATED AUTHOR AUTHOR'S ORGANIZ ATION 09/27/2024 [facility] Goals (unrecognized section and content) Goals may be documented in a n alternate sectionGoals may be documented in an alternate sectionGoals may be documented in an alternate sectionGoals may be documented in an alternate sectionGoals may be documented in an alternate sectionGoals may be documented in an alternate sectionGoals may be documented in an alternate sectionGoals may be documented in an alternate sectionGoals may be documented in an alternate sectionGoals may be documented in an alternate sectionGoals may be documented in an alternate sectionGoals may be documented in an alternate sectionGoals may be documented in an alternate sectionGoals may be documented in an alternate sectionGoals may be documented in an alternate sectionGoals may be documented in an alternate sectionGoals may be documented in an alternate section Care Teams (unrecognized sec tion and content) Team Status: Active Member Role Status Dates Dr. Dominique Lang MD Family Provider Active Dr. Dominique Lang MD Primary Care Provider Active Team Status: Inactive Member Role Status Dates Dr. Dominique Lang MD Primary Care Provider, Referr ing Provider Active Libertad Fernando MANAGER ENGINE, MANAGER ENGINE-C Attending Provider Active Team Status: Inactive Member Role Status Dates Dr. Dominique Lang MD Primary Care Pr ovider, Attending Provider, Referring Provider Active Team Status: Inactive Member Role Status Dates Dr. Dominique Lang MD Primary Care Provider, Attend ing Provider Active Team Status: Active Member Role Status Dates Dr. Dominique Lang MD Primary Care Provider Active Dr. Vivek Samano MD Attending Provider Active Braulio aPtel MD Referring Provider Active Team Status: Inactive Member Role Status Dates Dr. Dominique Lang MD Primary Care Provider Active Braulio Patel MD Attending Provider, Emergency Provid er Active Team Status: Inactive Member Role Status Dates Dr. Dominique Lang MD Primary Care Provider, Referr ing Provider Active Dr. Rafa Tejada MD Attending Provider Active Team Status: Inactive Member Role Status Dates Dr. Dominique Lang MD Primary Care Provider, Referr ing Provider Active Nargis Prajapati MANAGER ENGINE, MANAGER ENGINE-C Attending Provider Active Team Status: Inactive Member Role Status Dates Dr. Dominique Lang MD Primary Care Provider Active Nargis Prajapati MANAGER ENGINE, MANAGER ENGINE-C Attending Provider, Referrin g Provider Active Team Status: Active Member Role Status Dates Dr. Dominique Lang MD Primary Care Provider Active Team Status: Inactive Member Role Status Dates Dr. Dominique Lang MD Primary Care Provider Active Start: April 01, 2024 End: April 01, 2024 Dr. Dominique Lang MD Referring Provider Active Start: April 01, 2024 End: April 01, 2024 Nargis Prajapati MANAGER ENGINE, MANAGER ENGINE-C Attending Provider Active Start: April 01, 2024 End: April 01, 2024 Team Status: Inactive Member Role Status Dates Dr. Dominique Lang MD Primary Care Provider Active Start: April 14, 2024 End: April 14, 2024 Nargis Prajapati MANAGER ENGINE, MANAGER ENGINE-C Attending Provider Active Start: April 14, 2024 End: April 14, 2024 Team Status: Inactive Member Role Status Dates Dr. Dominique Lang MD Primary Care Provider Active Start: May 05, 2024 End: May 05, 2024 Dr. Dominique Lang MD Attending Provider Active Start: May 05, 2024 End: May 05, 2024 Dr. Dominique Lang MD Referring Provider Active Start: May 05, 2024 End: May 05, 2024 Team Status: Inactive Member Role Status Dates Dr. Dominique Lang MD Primary Care Provider Active Start: June 01, 2024 End: June 01, 2024 Dr. Dominique Lang MD Attending Provider Active Start: June 01, 2024 End: June 01, 2024 Dr. Dominique Lang MD Referring Provider Active Start: June 01, 2024 End: June 01, 2024 Team Status: Inactive Member Role Status Dates Dr. Dominique Lang MD Primary Care Provider Active Start: June 16, 2024 End: June 16, 2024 Dr. Dominique Lang MD Referring Provider Active Start: June 16, 2024 End: June 16, 2024 Cande Dumont PA, PA Attending Provider Active Start: June 16, 2024 End: June 16, 2024 Team Status: Inactive Member Role Status Dates Dr. Dominique Lang MD Primary Care Provider Active Start: June 30, 2024 End: June 30, 2024 Dr. Dominique Lang MD Referring Provider Active Start: June 30, 2024 End: June 30, 2024 Nargis Prajapati MANAGER ENGINE, MANAGER ENGINE-C Attending Provider Active Start: June 30, 2024 End: June 30, 2024 Team Status: Inactive Member Role Status Dates Dr. Dominique Lang MD Primary Care Provider Active Start: July 24, 2024 End: July 24, 2024 Nargis Prajapati MANAGER ENGINE, MANAGER ENGINE-C Attending Provider Active Start: July 24, 2024 End: July 24, 2024 Nargis Prajapati MANAGER ENGINE, MANAGER ENGINE-C Referring Provider Active Start: July 24, 2024 End: July 24, 2024 Team Status: Active Member Role Status Dates Dr. Dominique Lang MD Primary Care Provider Active Start: July 24, 2024 Dr. Rohan Chavez MD Attending Provider Active Start: July 24, 2024 Team Status: Inactive Member Role Status Dates Dr. Dominique Lang MD Primary Care Provider Active Start: July 31, 2024 End: August 01, 2024 Dr. Cedric Verde DO Emergency Provider Active Start: July 31, 2024 End: August 01, 2024 Manager Integration Relationship Specialty Start Date End Date Dominique Lang MD Debra [address] [place] [address] PCP - General Family Medicine 08/03/24 Team Status: Active Member Role/Relationship Status Dates Dr. Dominique Lang MD Primary Care Provider Active Team Status: Inactive Member Role/Relationship Status Dates Dr. Dominique Lang MD Primary Care Provider Active Start: June 01, 2024 End: June 01, 2024 Dr. Dominique Lang MD Attending Provider Active Start: June 01, 2024 End: June 01, 2024 Dr. Dominique Lang MD Referring Provider Active Start: June 01, 2024 End: June 01, 2024 Team Status: Inactive Member Role/Relationship Status Dates Dr. Dominique Lang MD Primary Care Provider Active Start: June 16, 2024 End: June 16, 2024 Dr. Dominique Lang MD Referring Provider Active Start: June 16, 2024 End: June 16, 2024 Cande Dumont PA, PA Attending Provider Active Start: June 16, 2024 End: June 16, 2024 Team Status: Inactive Member Role/Relationship Status Dates Dr. Dominique Lang MD Primary Care Provider Active Start: June 30, 2024 End: June 30, 2024 Dr. Dominique Lang MD Referring Provider Active Start: June 30, 2024 End: June 30, 2024 Nargis Prajapati MANAGER ENGINE, MANAGER ENGINE-C Attending Provider Active Start: June 30, 2024 End: June 30, 2024 Team Status: Inactive Member Role/Relationship Status Dates Dr. Dominique Lang MD Primary Care Provider Active Start: July 24, 2024 End: July 24, 2024 Nargis Prajapati MANAGER ENGINE, MANAGER ENGINE-C Attending Provider Active Start: July 24, 2024 End: July 24, 2024 Nargis Prajapati MANAGER ENGINE, MANAGER ENGINE-C Referring Provider Active Start: July 24, 2024 End: July 24, 2024 Team Status: Active Member Role/Relationship Status Dates Dr. Dominique Lang MD Primary Care Provider Active Start: July 24, 2024 Dr. Rohan Chavez MD Attending Provider Active Start: July 24, 2024 Team Status: Inactive Member Role/Relationship Status Dates Dr. Dominique Lang MD Primary Care Provider Active Start: July 31, 2024 End: August 01, 2024 Dr. Cedric Verde DO Attending Provider Active Start: July 31, 2024 End: August 01, 2024 Dr. Cedric Verde DO Emergency Provider Active Start: July 31, 2024 End: August 01, 2024 Team Status: Inactive Member Role/Relationship Status Dates Dr. Dominique Lang MD Primary Care Provider Active Start: September 16, 2024 End: September 16, 2024 Dr. Dominique Lang MD Attending Provider Active Start: September 16, 2024 End: September 16, 2024 Dr. Dominique Lang MD Referring Provider Active Start: September 16, 2024 End: September 16, 2024 Team Status: Inactive Member Role/Relationship Status Dates Dr. Dominique Lang MD Primary Care Provider Active Start: June 16, 2024 End: June 16, 2024 Dr. Dominique Lang MD Referring Provider Active Start: June 16, 2024 End: June 16, 2024 Cande Dumont PA, PA Attending Provider Active Start: June 16, 2024 End: June 16, 2024 Team Status: Inactive Member Role/Relationship Status Dates Dr. Dominique Lang MD Primary Care Provider Active Start: June 30, 2024 End: June 30, 2024 Dr. Dominique Lang MD Referring Provider Active Start: June 30, 2024 End: June 30, 2024 Nargis Prajapati MANAGER ENGINE, MANAGER ENGINE-C Attending Provider Active Start: June 30, 2024 End: June 30, 2024 Team Status: Inactive Member Role/Relationship Status Dates Dr. Dominique Lang MD Primary Care Provider Active Start: July 24, 2024 End: July 24, 2024 Nargis Prajapati MANAGER ENGINE, MANAGER ENGINE-C Attending Provider Active Start: July 24, 2024 End: July 24, 2024 Nargis Prajapati MANAGER ENGINE, MANAGER ENGINE-C Referring Provider Active Start: July 24, 2024 End: July 24, 2024 Team Status: Active Member Role/Relationship Status Dates Dr. Dominique Lang MD Primary Care Provider Active Start: July 24, 2024 Dr. Rohan Chavez MD Attending Provider Active Start: July 24, 2024 Team Status: Inactive Member Role/Relationship Status Dates Dr. Dominique Lang MD Primary Care Provider Active Start: July 31, 2024 End: August 01, 2024 Dr. Cedric Verde DO Attending Provider Active Start: July 31, 2024 End: August 01, 2024 Dr. Cedric Verde DO Emergency Provider Active Start: July 31, 2024 End: August 01, 2024 Team Status: Inactive Member Role/Relationship Status Dates Dr. Dominique Lang MD Primary Care Provider Active Start: September 16, 2024 End: September 16, 2024 Dr. Dominique Lang MD Attending Provider Active Start: September 16, 2024 End: September 16, 2024 Dr. Dominique Lang MD Referring Provider Active Start: September 16, 2024 End: September 16, 2024 Team Status: Inactive Member Role/Relationship Status Dates Dr. Dominique Lang MD Primary Care Provider Active Start: October 05, 2024 End: October 05, 2024 Dr. Frankie Cerrato MD Emergency Provider Active Sta rt: October 05, 2024 End: October 05, 2024 Source Comments (unrecognize d section and content) In the event this informatio n is protected by the Federal Confidentiality of Alcohol and Drug Abuse Patient Records regulations: The Federal rules restrict any use of the information to criminally investigate or prosecute any alcohol or drug abuse patient.[facility] FOR RECORDS PERTAINING TO PATIENTS WHO ARE [...] BE BASED ON THE PRIMARY CLINICAL RECORDS. [employer] provides no warranty or guarantee of the accuracy or completeness of information in this document.
== END 2024-10-05 14:02 | disposition home or self-care (01) ==
PROVIDERS: Emergency Provider Emergency Medicine; PCP Family Medicine; Visit Provider Emergency Medicine
DX: J18.9 Pneumonia, unspecified organism (principal); E11.22 Type 2 diabetes mellitus with diabetic chronic kidney disease; N18.30 Chronic kidney disease, stage 3 unspecified; J98.01 Acute bronchospasm; R29.6 Repeated falls; I45.10 Unspecified right bundle-branch block; I25.10 Atherosclerotic heart disease of native coronary artery without angina pectoris; I12.9 Hypertensive chronic kidney disease with stage 1 through stage 4 chronic kidney disease, or unspecified chronic kidney disease; K21.9 Gastro-esophageal reflux disease without esophagitis; E78.5 Hyperlipidemia, unspecified; G47.30 Sleep apnea, unspecified; Z95.1 Presence of aortocoronary bypass graft; Z87.19 Personal history of other diseases of the digestive system; Z90.49 Acquired absence of other specified parts of digestive tract; Z79.82 Long term (current) use of aspirin; Z79.84 Long term (current) use of oral hypoglycemic drugs; Z79.899 Other long term (current) drug therapy
CPT/HCPCS: 71046; 80053; 83605; 85025; 93005; 94640; 99284

== ENCOUNTER → 2024-10-14 | Outpatient (CLI) | payer MEDICARE, SELFPAY ==
--- NOTE | 2024-10-14 15:45 | RAD_ITS ---
PROCEDURE: CHEST PA AND LATERAL 10/14/2024 REASON FOR EXAM: CAP TECHNIQUE: CHEST PA AND LATERAL COMPARISON: Chest x-ray of 10/06/2019 RAD/Chest PA and Lateral IMPRESSION: Prior sternotomy again noted. The cardiomediastinal silhouette is stable, without evidence of cardiomegaly. Prior coronary artery stenting is again seen. No interval osseous change is noted. Marked right hemidiaphragm elevation is again seen. Lungs appear clear of acute disease on today's examination. No pleural effusion or pneumothorax is seen. No evidence of acute cardiopulmonary disease. Reading Location: [place] [id number]
== END | disposition home or self-care (01) ==
LOC: MTRAD 15:41
PROVIDERS: PCP Family Medicine; Referring Provider Family Medicine; Visit Provider Family Medicine
DX: J18.9 Pneumonia, unspecified organism (principal)
CPT/HCPCS: 71046

== ENCOUNTER → 2024-11-05 | Outpatient (CLI) | payer MEDICARE, SELFPAY ==
--- NOTE | 2024-11-05 16:15 | RAD_ITS ---
PROCEDURE: L/S SPINE W BEND MIN 6 VW 11/05/2024 REASON FOR EXAM: LUMBAR DEGENERATIBE DISC DISEASE TECHNIQUE: L/S SPINE W BEND MIN 6 VW COMPARISON: 07/23/2023 MRI. 05/24/2023 radiograph. FINDINGS: No evidence of acute fracture or dislocation. Mild scoliotic curvature. Partial lumbarization of S1. Stable [id number] superior endplate compression deformity of L4. Moderate superior endplate compression of L1 which is new since the prior MRI and radiograph. T11 vertebroplasty. Moderate discogenic degenerative changes. Moderate lumbar facet arthropathy. RAD/L/S Spine w Bend Min 6 Vw IMPRESSION: Spondylosis. Compression deformities as above. Reading Location: [id number]
--- NOTE | 2024-11-05 16:15 | RAD_ITS ---
PROCEDURE: THORACIC SPINE 2 VIEWS 11/05/2024 REASON FOR EXAM: RECENT FALL TECHNIQUE: THORACIC SPINE 2 VIEWS COMPARISON: 05/24/2023 FINDINGS: BONES: Moderate superior compression deformity of the L1 vertebral body, new since the prior study. Chronic T11 compression deformity status post vertebroplasty. Anatomic spinal alignment. Old right clavicle fracture. Mild thoracic dextroscoliosis. DISC/DEGENERATIVE CHANGES: Disc spaces narrowing at multiple levels. SOFT TISSUES: The aorta is calcified. Median sternotomy wires present. RAD/Thoracic Spine 2 Views IMPRESSION: L1 vertebral body compression fracture deformity, age indeterminate. This is n ew since the prior study. If clinically indicated, a follow-up CT or MRI is recommended to further evaluate. Reading Location: [id number]
== END | disposition home or self-care (01) ==
LOC: MTRAD 16:13
PROVIDERS: PCP Family Medicine; Referring Provider Clinical Nurse Specialist Adult Health; Visit Provider Clinical Nurse Specialist Adult Health
DX: M54.6 Pain in thoracic spine (principal); M51.369 Other intervertebral disc degeneration, lumbar region without mention of lumbar back pain or lower extremity pain; W19.XXXA Unspecified fall, initial encounter
CPT/HCPCS: 72070; 72114

== ENCOUNTER → 2024-11-11 | Outpatient (CLI) | payer MEDICARE, SELFPAY ==
--- NOTE | 2024-11-11 07:01 | MRI_ITS ---
PROCEDURE: SPINE LUMBAR (ROUTINE) 11/11/2024 REASON FOR EXAM: NEW COMPRESSION FRACTURE L1 FROM XRAY TECHNIQUE: Procedure Code: MRISPL Modality: MR Procedure: SPINE LUMBAR (ROUTINE) COMPARISON: MRI lumbar spine 07/23/2023. FINDINGS: Vertebrae: Chronic compression fracture of T12 with 90% height loss. Retropulsion measures 7 mm with resulting mild canal stenosis. Alignment: Anterolisthesis L4 on L5 by 3 mm. Conus Medullaris: Unremarkable. T12-L1: Disc bulge. Facet joint arthropathy. Ligamentum flavum hypertrophy. Mild inferior bilateral foraminal stenosis. No canal stenosis. L1-L2: Disc bulge. Facet joint arthropathy. No foraminal or canal stenosis. L2-L3: Disc bulge. Facet joint arthropathy. Ligamentum flavum hypertrophy. Mild bilateral foramina stenosis. Moderate canal stenosis. L3-L4: Disc bulge. Facet joint arthropathy. Ligamentum flavum hypertrophy. Severe right and moderate left foramina stenosis. Severe canal stenosis. L4-L5: Disc bulge. Facet joint arthropathy. No significant foraminal or canal stenosis. L5-S1: This is the last designated disc. No significant foraminal or canal stenosis. Sacrum: Unremarkable. MRI/Spine Lumbar (Routine) IMPRESSION: Degenerate changes, predominantly for severe canal stenosis at L3-L4. No significant progression compared to MRI 07/23/2023. The remainder disc levels are as detailed. Reading [facility]
--- OUTSIDE RECORDS SUMMARY | 2024-11-11 07:10 | XMS RPT_ITS | CCD ---
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 Unavailable Unavailable LEONELA NEWMAN Unavailable Unavailable BRENTON SCHMITT JR. Unavailable Unavailable NEWMAN, LEONELA Unavailable Unavailable BRENTON SCHMITT JR. Unavailable Unavailable NEWMAN, LEONELA Unavailable Unavailable BRENTON SCHMITT JR. Unavailable Unavailable LEONELA NEWMAN Unavailable Unavailable BRENTON SCHMITT JR. Unavailable Unavailable Dr. Dominique Lang Primary Care Provider 1([facility] )[phone] Dr. Dominique Lang Referring Provider 1([facility])[phone] Dr. Rafa Tejada Attending Provider 1([facility])-[phone] Rafa Tejada Referring Provider 1([facility])-[phone] Rafa Tejada Other Provider LUZ Griffin Emergency Provider 1([facility])[phone] Dr. Vivek Maldonado Admit Provider Dr. Vivek Maldonado Attending Provider 1([facility])[phone] Vivek Maldonado Other Provider Dr. Hugh Box Other Provider 1([facility])[phone] Dr. Martita Singleton Attending Provider 1([facility])[phone] Dr. Martita Singleton Other Provider 1([facility])[phone] Dominique Lang Primary Care Provider 1([facility] )[phone] Dr. Dominique Lang Referring Provider 1([facility])[phone] Abdullahi MEDINA, CONTRACTOR BUYER-C Libertad Attending Provider Dr. Dominique Lang Primary Care Provider 1([facility] )[phone] Dr. Vivek Samano Attending Provider 1([facility])[phone] Reodica, MD Braulio Referring Provider Dr. Dominique Lang Primary Care Provider [phone] Dr. Dominique Lang Referring Provider Victorina CONTRACTOR BUYER, CONTRACTOR BUYER-C Nargis Attending Provider Dr. Rafa Tejada Attending Provider Dr. Dominique Lang MD Primary Care Provider Dr. Dominique Lang MD Referring Provider Victorina CONTRACTOR BUYER-C, Nargis Attending Provider Precious MARCUM, Dr. Dominique Nicholas Attending Provider Cande Cohen Attending Provider Victorina CONTRACTOR BUYER-C, Nargis Referring Provider Scott MARCUM, Dr. Madrigal Attending Provider [phone] Dr. Dominique Lang MD Primary Care Provider Victorina CONTRACTOR BUYER-CNargis Attending Provider Dr. Dominique Lang MD Referring Provider Dr. Cedric Verde DO Emergency Provider Dominique Lang MD Primary Care Provider EVAN ROMERO Referring Unavailable DOMINIQUE LANG Primary Care Unavailable MUAKKASSA, FARID EDMUNDO Admitting Unavailabl e MUAKKASSA, FARID EDMUNDO Attending Unavailjalil e DOMINIQUE LANG Primary Care Unavailable MARTITA DSOUZA Consulting Unavailabl e DERIK, ALEKSEY A Admitting Unavailable DOMINIQUE LANG Primary Care Unavailable IAN ARREDONDO Attending Unavailable Dr. Dominique Lang MD Primary Care Provider Dr. Dominique Lang MD Attending Provider Dr. Dominique Lang MD Referring Provider Victorina MEDINA-CNargis Attending Provider Dr. Cedric Verde DO Attending Provider Precious MARCUM, Dr. Dominique Nicholas Primary Care Provider [phone] Precious MARCUM, Dr. Dominique Nicholas Referring Provider Precious MARCUM, Dr. Dominique Nicholas Attending Provider Saqib MARCUM, Dr. David Emergency Provider [phone] Precious MARCUM, Dr. Dominique Nicholas Primary Care Provider Precious MARCUM, Dr. Dominique Nicholas Referring Provider Saqib MARCUM, Dr. David Attending Provider Precious MARCUM, Dr. Dominique Nicholas Primary Care Provider [phone] Victorina CONTRACTOR BUYER-Zoila, Nargis Attending Provider Precious MARCUM, Dr. Dominique Nicholas Referring Provider Dominique Lang Referring Unavailable SchDominique harrison Primary Care Unavailable SchDominique harrison Attending Unavailable SchDominique harrison E Primary Care Unavailable SchDominique harrison E Referring Unavailable Cande Cohen Attending Unavail able SchDominique harrison Primary Care Unavailable SchDominique harrison Referring Unavailable Nargis Prajapati NP Attending Unavailable SchDominique harrison E Referring Unavailable SchinnerDominique E Primary Care Unavailable SchDominique harrison E Attending Unavailable SchDominique harrison E Referring Unavailable SchDominique harrison Primary Care Unavailable SchDominique harrison Attending Unavailable Temitope Almodovar Referring Unavailable Temitope Almodovar Attending Unavailable SchinDominique osman E Primary Care Unavailable Schinner, Dominique E Primary Care Unavailable Nargis Prajapati NP Attending Unavailable SchinDominique osman E Primary Care Unavailable SchinnerDominique E Referring Unavailable SchinDominique osman E Attending Unavailable SchinDominique osman E Primary Care Unavailable Nargis Prajapati NP Referring Unavailable Nargis Prajapati NP Attending Unavailable Libertad Fernando NP Referring Unavailable Liebrtad Fernando NP Attending Unavailable Schinner, Dominique E Primary Care Unavailable Schinner, Dominique E Primary Care Unavailable Rafa Tejada Attending Unavailable SchdavidnerDominique E Referring Unavailable Schinner, Dominique E Primary Care Unavailable Tonny Cuadra Attending Unavailable Schinner, Dominique E Primary Care Unavailable Rafa Tejada Attending Unavailable Schinner Dominique E Referring Unavailable Schinner, Dominique E Primary Care Unavailable Victorina CONTRACTOR BUYER, Nargis Attending Unavailable Rohan Chavez Attending Unavailable Dominique Lang Primary Care Unavailable Dominique Lang Primary Care Unavailable Tonny Cuadra Attending Unavailable Dominique Lang Referring Unavailable Libertad Fernando NP Attending Unavailable SchinDominique osman Primary Care Unavailable SchDominique harrison Referring Unavailable Karl Cummings Attending Unavailable Dominique Lagn Primary Care Unavailable Dominique Lang Primary Care Unavailable Frankie Cerrato Attending Unavailable Dominique Lang Referring Unavailable Dominique Lang Attending Unavailable Dominique Lang E Primary Care Unavailable Dominique Lang E Primary Care Unavailable Cedric Verde Attending Unavailable Dominique Lang Referring Unavailable Dominique Lang Attending Unavailable Dominique Lang Primary Care Unavailable Allergies Allergy Classification Reported Allergen(s) Allergy Type Date of Onset Reaction(s) Facility (20 sources) Adhesive Tape; Translations: [adhesive tape] Propensity to adverse reactions 2 Unknown [facility] (20 sources) Morphine Drug Allergy 2 Vomiting [facility] (20 sources) Egsjncu-Cjh-Qaz Reductase Inhibitor; Translations: [Dopofao-Iuv-Sr a Reductase Inhibitor] Propensity to adverse reactions 2 Pain in joints [facility] (2 sources) Adhesive Tape-Silicones; Translations: [ADHESIVE TAPE-SILICONES] Propensity to adverse reactions to drug 5 [facility] (1 source) Morphine Drug Allergy 5 [facility] Repository Medications Current Medications Medication Drug Class(es) Dates Sig (Normalized) Sig (Original) acetaminophen 500 mg oral capsule (17 sources) Start: 04-26-2022 take 1 capsule by mouth every six hours as needed for pain Acetaminophen 500 mg capsule Active 500 mg PO EVERY 6 HOURS as needed for Pain April 26, 2022 1:00am Start: 06-08-2021 take 1000 mg by mout h three times daily Acetaminophen Active 1000 MG PO THREE TIMES A DAY 0 June 08, 2021 7:58am take 1 tablet by christopher th every eight hours as needed acetaminophen (ARTHRITIS PAIN RELIEF) 650 mg CR tablet Take 650 mg by mouth every 8 hours as needed for pain. Active [id number] 200 actuat albuterol 0.09 mg/actuat metered dose inhaler (3 sources) beta2-Adrenergic Agonist Start: 10-05-2024 Albuterol Sulfate (Ventolin Hfa) 90 mcg/actuation HFA aerosol inhaler Active 2 NMA INHALATION EVERY 4 HOURS NEEDED as needed for Wheezing 1 October 05, 2024 12:00am amoxicillin 875 mg / clavulanate 125 mg oral tablet (15 sources) Penicillin-class Antibacterial Start: 10-05-2024 take 1 tablet by mouth every twelve hours Amoxicillin-Pot Clavulanate 875-125 mg tablet Active 875 mg PO Q12H 14 October 05, 2024 12:00am Start: 07-07-2022 End: 05-30-2023 Amoxicillin-Pot Clavulanate 875-125 mg tablet Discontinued 1 {tbl} PO TWICE A DAY July 07, 2022 [...] 2018 11:49am azithromycin 250 mg oral tablet (3 sources) Macrolide Antimicrobial Start: 10-05-2024 Azithromycin (Zithromax Z-Beka) 250 mg tablet Active 0 PO .COMPLEX 6 October 05, 2024 12:00am For 250 mg dose pack: take 500 mg today (day 1), then 250 mg for 4 days (days 2-5) biotin 10 mg oral tablet (20 sources) Start: 10-05-2024 take 1 tablet by [...] Start: 06-16-2024 take 1 tablet by christopher th three times daily Buspirone 10 mg tablet [...] 10:26am calcium carbonate 1500 mg oral tablet (9 sources) Start: 06-10-2023 take 1 tablet by [...] day. Active clonazePAM 0.5 mg oral tablet (7 sources) Benzodiazepine Start: 06-30-2024 take 1 tablet [...] day. Active gabapentin 100 mg oral capsule (20 sources) Anti-epileptic Agent Start: 10-05-2024 take 1 [...] 11:01am midodrine hydrochloride 2.5 mg oral tablet (3 sources) alpha-Adrenergic Agonist Start: 10-05-2024 take 1 tablet by mouth twice daily Midodrine 2.5 mg tablet Active 2.5 mg PO TWICE A DAY October 05, 2024 12:00am Mupirocin (1 source) RNA Synthetase Inhibitor Antibacterial mupirocin (BACTROBAN) 2% oint Use 0.5 g in the nose two times a day. Active nystatin 100 unt/mg topical ointment (14 sources) Polyene Antifungal Start: 04-26-2022 Nystatin 100,000 [...] mood ubidecarenone 200 mg oral ca psule (4 sources) Start: 10-05-2024 Coenzyme Q10 ( Co [...] / HYDROcodone bitartrate 5 mg oral tablet (20 sources) Opioid Agonist Start: 08-05-2019 End: 08-08-2019 [...] 1 TABLET PO EVERY 6 HOURS NEEDED 12 18August 05, 2019 August 08, 2019 12:03am ALPRAZolam [...] mg / cholecalciferol 200 unt oral tablet (20 sources) Vitamin D Start: 07-22-2017 End: 04-26-2022 Calcium Carbonate-Vitamin D3 (Calcium 600 + D(3)) 600 mg(1,500mg) -200 unit tablet Discontinued 1 {tbl} PO daily July 22, 2017 12:00am April 26, 2022 4:29pm supplement cephalexin 500 mg oral capsule (7 sources) Cephalosporin Antibacterial Start: 09-14-2023 End: 12-10-2023 [...] 2018 11:50am clindamycin 300 mg oral capsule (20 sources) Lincosamide Antibacterial Start: 02-10-2019 End: 08-07-2019 [...] mg tablet Discontinued 75 mg PO DAILY 3 December 15, 2021 10:00am July 07, 2022 11:26am Patient is OUT of medication Cyclosporine 0.05 % dropperette (5 sources) Start: 08-01-2024 End: 10-05-2024 Cyclosporine 0.05 % dropperette Discontinued 1 NMA OPHTHALMIC TWICE A DAY August 01, 2024 12:00am October 05, 2024 10:07am Start: 08-01-2024 Cyclosporine 0 .05 % dropperette Active 1 NMA OPHTHALMIC TWICE A DAY August 01, 2024 12:00am docusate sodium 50 mg / sennosides, penitentiary 8.6 mg oral tablet (20 sources) Start: 05-22-2021 End: 06-08-2021 Sennosides-Docusate Sodium (Stool Softener-Stimulant Laxat) 8.6-50 mg tablet Discontinued 2 {tbl} PO TWICE A DAY May 22, 2021 9:45pm June 08, 2021 8:01am stools ezetimibe 10 mg oral tablet (20 sources) Dietary Cholesterol Absorption Inhibitor Start: 05-08-2015 [...] 4:29pm supplement fluconazole 150 mg oral tablet (7 sources) Azole Antifungal Start: 10-04-2023 End: 12-10-2023 Fluconazole 150 mg tablet Discontinued mg PO October 04, 2023 12:00am December 10, 2023 3:01pm fluticasone propionate 0.05 mg/actuat metered dose nasal spray (13 sources) Corticosteroid Start: 04-26-2022 End: 08-01-2024 Fluticasone [...] or more linagliptin 5 mg oral tablet (20 sources) Dipeptidyl Peptidase 4 Inhibitor Start: 06-06-2018 [...] tablet Discontinued 5 mg PO DAILY 90 February 10, 2019 10:04am April 18, 2021 [...] 10:59am loperamide hydrochloride 2 mg oral capsule (20 sources) Opioid Agonist Start: 05-22-2021 End: 06-08-2021 [...] Discontinued 12.5 mg PO TWICE A DAY January 09, 2021 [...] 2017 11:05am metroNIDAZOLE 7.5 mg/ml topical lotion (6 sources) Nitroimidazole Antimicrobial Start: 06-16-2024 End: 10-05-2024 [...] 12:00am June 06, 2018 11:49am Multivitamin tablet (7 sources) Start: 07-22-2017 End: 06-06-2018 Multivitamin tablet Discontinued 1 {tbl} PO daily July 22, 2017 12:00am June 06, 2018 11:49am [place] 7-Clq-Vla-Fish Oil (13 sources) Start: 05-08-2015 End: 06-06-2018 take 1000 mg by mouth once daily [place] 4-Tyr-Eiv-Fish Oil Discontinued 1000 MG PO DAILY May 08, 2015 3:34pm June 06, 2018 11:49am Start: 05-08-2015 End: 06-06-2018 take 1000 mg by mouth once daily [place] 3-Phy-Lbu-Fish Oil Discontinued 1000 MG PO DAILY May 08, 2015 1:00am June 06, 2018 11:49am [place] 5-Slk-Wup-Fish Oil 500 MG capsule,delayed release(DR/EC) (7 sources) Start: 05-08-2015 End: 06-06-2018 [place] 0-Lxr-Smv-Fish Oil 500 MG capsule,delayed release(DR/EC) Discontinued 1000 mg PO DAILY May 08, 2015 1:00am June 06, 2018 11:49am oxyCODONE hydrochloride 5 mg oral tablet (20 sources) Opioid Agonist Start: 05-22-2021 End: 06-08-2021 take 1 tablet by mouth every four hours as needed for pain Oxycodone 5 mg Tablet Discontinued 5 mg PO EVERY 4 HOURS NEEDED as needed for Pain Score 4-10 15 7 0 May 22, 2021 June 08, 2021 8:01am Closed fracture of left hip pantoprazole 40 mg delayed release oral tablet (20 sources) Proton Pump Inhibitor Start: 06-08-2021 End: [...] 10:27am pravastatin sodium 40 mg oral tablet (20 sources) HMG-CoA Reductase Inhibitor Start: 07-22-2017 End: [...] 10:29am saccharomyces boulardii 250 mg oral capsule (20 sources) Start: 02-10-2019 End: 04-18-2021 take 1 capsule by mouth once daily Saccharomyces Boulardii (Daily Probiotic (S. Boulardii)) 250 mg capsule Discontinued 250 mg PO DAILY February 10, 2019 1:00am April 18, 2021 10:27am traMADol hydrochloride 50 mg oral tablet (20 sources) Opioid Agonist Start: 06-08-2021 End: 04-26-2022 take 1 tablet by mouth every six hours as needed for pain Tramadol 50 mg Tablet Discontinued 50 mg PO EVERY 6 HOURS NEEDED as needed for Pain Score 4-5 28 7 0 June 08, 2021 12:00am April 26, 2022 4:29pm triamcinolone acetonide 0.005 mg/mg topical ointment (6 sources) Corticosteroid Start: 06-16-2024 End: 10-05-2024 Triamcinolone [...] Date Documented Date Episodic/Chronic Acute cerebrovascular disease (10 sources) Hemorrhage into subdural space of neuraxis; Translations: [Nontraumatic subdural hemorrhage, unspecified] Onset: 5 08-01-2024 Chronic Anxiety disorders (20 sources) Anxiety; Translations: [Anxiety disorder, unspecified] Onset: Chronic Chronic kidney disease (9 sources) Chronic kidney disease stage 3; Translations: [Stage 3 chronic kidney disease] 05-30-2023 Chronic Conduction disorders (20 sources) Right bundle branch block; Translations: [Unspecified right bundle-branch block] Chronic Coronary atherosclerosis and other heart disease (20 sources) Coronary arteriosclerosis; Translations: [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] Chronic Deficiency and other anemia (20 sources) Anemia due to blood loss; Translations: [Iron deficiency anemia secondary to blood loss (chronic)] 06-18-2021 Chronic Comment on above: due to left hip frac ture Deficiency and other anemia (9 sources) Iron deficiency anemia secondary to blood loss (chronic); Translations: [Iron deficiency anemia secondary to blood loss (chronic)] Chronic Deficiency and other anemia (20 sources) Iron deficiency anemia; Translations: [Iron deficiency anemia, unspecified] 05-22-2021 Episodic Deficiency and other anemia (9 sources) Iron deficiency anemia, unspecified; Translations: [Iron deficiency anemia, unspecified] Episodic Deficiency and other anemia (9 sources) Normocytic anemia; Translations: [Anemia, unspecified] 05-30-2023 [...] Episodic Comment on above: left intertrochanter ic Malaise and fatigue (20 sources) Asthenia; Translations: [Other malaise] Episodic Mood disorders (20 sources) Depressive disorder; Translations: [Depression] Chronic Nutritional deficiencies (11 sources) Vitamin D deficiency; Translations: [Vitamin D deficiency, unspecified] Onset: 5 05-30-2023 Chronic Nutritional deficiencies (9 sources) Cobalamin deficiency; Translations: [Deficiency of other specified B group vitamins] 05-30-2023 Episodic Open wounds of extremities (7 sources) Tear of skin; Translations: [Laceration without foreign body of right upper arm, initial encounter] 12-14-2023 Episodic Open wounds of head; neck; and trunk (20 sources) Facial laceration ; Translations: [Laceration without foreign body of other part of head, initial encounter] Onset: 5 09-29-2021 Episodic Osteoarthritis (9 sources) Arthritis of knee; Translations: [Unilateral primary osteoarthritis, unspecified knee] 05-30-2023 Chronic Comment on above: left Other aftercare (1 source) Encounter for other specified aftercare; Translations: [Aftercare] Onset: 5 Episodic Other bone disease and musculoskeletal deformities (9 sources) Osteopenia; Translations: [Other specified disorders of bone density and structure, unspecified site] 05-30-2023 Episodic Other connective tissue disease (12 sources) Swelling of left lower limb; Translations: [Other specified soft tissue disorders] 07-15-2022 Episodic Other connective tissue disease (9 sources) Recurrent falls ; Translations: [Repeated falls] Onset: 5 08-01-2024 Episodic Other connective tissue disease (1 source) Repeated falls; Translations: [Frequent falls] Onset: 5 Episodic Other hereditary and degenerative nervous system conditions (9 sources) Essential tremor; Translations: [Essential tremor] 05-30-2023 Chronic Other inflammatory condition of skin (9 sources) Psoriasis; Translations: [Psoriasis, unspecified] 05-30-2023 Chronic Other injuries and conditions due to external causes (20 sources) Closed injury of head; Translations: [Unspecified injury of head, initial encounter] 08-06-2019 Episodic Other lower respiratory disease (9 sources) Cough; Translations: [Cough] 04-01-2024 Episodic Other lower respiratory disease (6 sources) Dyspnea; Translations: [Shortness of breath] 06-30-2024 Episodic Other upper respiratory disease (3 sources) Acute bronchospasm; Translations: [Acute bronchospasm] 10-05-2024 Episodic Pancreatic disorders (not diabetes) (20 sources) Pancreatitis; Translations: [Acute pancreatitis without necrosis or infection, unspecified] Episodic Pneumonia (except that caused by tuberculosis or sexually transmitted disease) (4 sources) Right lower zone pneumonia; Translations: [Pneumonia, unspecified organism] Onset: 5 10-05-2024 Episodic Residual codes; unclassified (20 sources) Sleep apnea; [...] Onset: 5 06-10-2023 Chronic Residual codes; unclassified (10 sources) Edema; Translations: [Edema, unspecified] 06-16-2024 Episodic Skin and subcutaneous tissue infections (19 sources) Cellulitis; Translations: [Cellulitis, unspecified] 07-15-2022 Episodic Skull and face fractures (2 sources) Closed fracture of nasal bones; Translations: [Fracture of nasal bones, initial encounter for closed fracture] Onset: 5 08-07-2024 Episodic Unclassified (1 source) Cough, unspecified; Translations: [Cough, unspecified] Onset: Unclassified (1 source) Acute cough; Translations: [Acute cough] Onset: Past or Other Problems Problem Classification Problem Date Documented Date Episodic/Chronic Coagulation and hemorrhagic disorders (1 source) Thrombocytopenic disorder; Translations: [Thrombocytopenia, unspecified] Onset: 08-02-2024 Resolved: 08-05-2024 08-05-2024 Chronic Coronary atherosclerosis and other heart disease (8 sources) Presence of aortocoronary bypass graft; Translations: [Aortocoronary bypass status] Onset: 10-16-2001 Episodic Fracture of upper limb (20 sources) Fracture of distal end of radius; Translations: [Unspecified fracture of the lower end of right radius, initial encounter for closed fracture] Onset: 12-11-2023 08-06-2019 Episodic Other aftercare (2 sources) 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; Translations: [Other senior living (current) drug therapy] Onset: 04-10-2017 Episodic Other aftercare (1 source) Follow-up status; Translations: [Encounter for other specified aftercare] Onset: 08-06-2024 Resolved: 08-20-2024 08-20-2024 Episodic Other injuries and conditions due to external causes (1 source) Unspecified injury of head, initial encounter; Translations: [Unspecified injury of head, initial encounter] Onset: 08-06-2024 Episodic Other lower respiratory disease (1 source) Shortness of breath; Translations: [Shortness of breath] Onset: 07-28-2024 Episodic Other lower respiratory disease (1 source) [...] satiety; Translations: [Early satiety] Onset: 06-08-2024 Episodic Superficial injury; contusion (20 sources) Contusion of lower back; Translations: [Contusion of lower back and pelvis, initial encounter] Onset: 12-11-2023 08-24-2021 Episodic Results Test Name Value Interpretation Reference Range Facility L/S Spine w Bend Min 6 [facility] 11-05-2024 L/S Spine w Bend Min 6 [facility] [address] [place] [address] L/S Spine w Bend Min 6 Vw MR#: [id number] Acct: [id number] Name: TAMICA ANDERSON Rep #: [id number] : 1940 84 From: Sanjiv Hill MD PCP: Dr. Dominique Lang MD Status: REG CLI Study: L/S Spine w Bend Min 6 Vw Date of Exam: Exam# [id number] Ordering Dr: Temitope Almodovar PROCEDURE: L/S SPINE W BEND MIN 6 VW 11/05/2024 REASON FOR EXAM: LUMBAR DEGENERATIBE DISC DISEASE TECHNIQUE: L/S SPINE W BEND MIN 6 VW COMPARISON: 07/23/2023 MRI. 05/24/2023 radiograph. FINDINGS: No evidence of acute fracture or dislocation. Mild scoliotic curvature. Partial lumbarization of S1. Stable dzji-au-fxpjovvi superior endplate compression deformity of L4. Moderate superior endplate compression of L1 which is new since the prior MRI and radiograph. T11 vertebroplasty. Moderate discogenic degenerative changes. Moderate lumbar facet arthropathy. RAD/L/S Spine w Bend Min 6 Vw IMPRESSION: Spondylosis. Compression deformities as above. Reading Location: [id number] CC: Temitope Almodovar; Dr. 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: Signed Normal [facility] Thoracic Spine 2 Viewson Thoracic Spine 2 Views [facility] [address] [place] [address] Thoracic Spine 2 Views MR#: [id number] Acct: [id number] Name: TAMICA ANDERSON Rep #: [id number] : 1940 F 84 From: Diamante Chambers MD PCP: Dr. Dominique Lang MD Status: REG CLI Study: Thoracic Spine 2 Views Date of Exam: 11/05/24 Exam# [id number] Ordering Dr: Temitope Almodovar PROCEDURE: THORACIC SPINE 2 VIEWS 11/05/2024 REASON FOR EXAM: RECENT FALL TECHNIQUE: THORACIC SPINE 2 VIEWS COMPARISON: 05/24/2023 FINDINGS: BONES: Moderate superior compression deformity of the L1 vertebral body, new since the prior study. Chronic T11 compression deformity status post vertebroplasty. Anatomic spinal alignment. Old right clavicle fracture. Mild thoracic dextroscoliosis. DISC/DEGENERATIVE CHANGES: Disc spaces narrowing at multiple levels. SOFT TISSUES: The aorta is calcified. Median sternotomy wires present. RAD/Thoracic Spine 2 Views IMPRESSION: L1 vertebral body compression fracture deformity, age indeterminate. This is new since the prior study. If clinically indicated, a follow-up CT or MRI is recommended to further evaluate. Reading Location: [id number] CC: Temitope Almodovar; Dr. 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: Signed [facility] Chest PA and Lateralon 10-14 Chest PA and Lateral [facility] [address] [place] [id number] Chest PA and Lateral MR#: [id number] Acct: [id number] Name: TAMICA ANDERSON Rep #: [id number] : 1940 F 84 From: Manoj Walsh PCP: Dr. Dominique Lang MD Status: REG CLI Study: Chest PA and Lateral Date of Exam: 10/14/24 Exam# [id number] Ordering Dr: Dominique Lang MD PROCEDURE: CHEST PA AND LATERAL 10/14/2024 REASON FOR EXAM: CAP TECHNIQUE: CHEST PA AND LATERAL COMPARISON: Chest x-ray of 10/06/2019 RAD/Chest PA and Lateral IMPRESSION: Prior sternotomy again noted. The cardiomediastinal silhouette is stable, without evidence of cardiomegaly. Prior coronary artery stenting is again seen. No interval osseous change is noted. Marked right hemidiaphragm elevation is again seen. Lungs appear clear of acute disease on today's examination. No pleural effusion or pneumothorax is seen. No evidence of acute cardiopulmonary disease. Reading Location: [facility] CC: Dr. 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: Signed [facility] 12 Lead EKGon 10-05-2024 12 Lead EKG [facility] Cardiovascular Services [address] [place] [address] 12 Lead EKG 10/05/24 1032 MR#: [id number] Acct: [id number] Name: TAMICA ANDERSON Rep #: [id number] : 1940 84 From: Basilio Adler MD Attending Dr: Status: DEP ER Ordering Dr: Frankie Cerrato MD Date: 10/05/24 Location: ED Sex: F C Admitted: Test Reason : Blood Pressure : */* mmHG Vent. Rate : 74 BPM Atrial Rate : 74 BPM P-R Int : 118 ms QRS Dur : 84 ms QT Int : 402 ms P-R-T Axes : 7 12 61 degrees QTcB Int : 446 ms Normal sinus rhythm Nonspecific T wave abnormality Abnormal ECG Confirmed by Basilio Adler ([id number]), technical editor SANJUANA KEANE ([id number]) on 10/06/2024 1:18:23 PM Referred By: UG Confirmed By: Basilio Adler 10/06/24 1318 Date Basilio Adler MD CC: Dr. Dominique Lang MD; Dr. Frankie Cerrato MD Signed [facility] Absolute lymphocyte countOrd ered By: Frankie Cerrato on 10-05-2024 Lymphocytes Auto (Unsp spec) [#/Vol] 1.06 10*3/uL 0.83-4.51 [facility] Absolute neutrophil countOrd ered By: Frankie Cerrato on 10-05-2024 Neutrophils (Bld) [#/Vol] 7.1 10*3/uL 2.0-7.7 [facility] Anion gap in Serum or Plasma Ordered By: Frankie Cerrato on 10-05-2024 Anion gap [Moles/Vol] 12 mmol/L 5-15 [facility] Automated lymphocyte count a s percentage of total leukocytesOrdered By: Frankie Cerrato on 10-05-2024 Lymphocytes/100 WBC Auto (Unsp spec) 11.0 % Low 19-41 [facility] BUN/creatinine ratioOrdered By: Frankie Cerrato on 10-05-2024 Urea nitrogen/Creatinine [Mass ratio] 20.9 mg/mg High 10-20 [facility] Basophil percentageOrdered B y: Frankie Cerrato on 10-05-2024 Basophils/100 WBC (Bld) 0.3 % 0-1 [facility] Bilirubin, totalOrdered By: Frankie Cerrato on 10-05-2024 Bilirubin [Mass/Vol] 0.28 mg/dL 0.00-1.30 [facility] CBC W/Diff, Automatedon 09-16 Absolute Lymph 1.06 X10 3/uL Normal 0.83-4.51 [facility] Comment on above: Performed By: #### L 506.1000, L502.0500, L100.0100, L500.4100, L501.9985, L500.4050, L503.0105, L509.1000 #### [facility] Laboratory [address] [place], [address] Absolute Neut 7.1 X10 3/uL Normal 2.0-7.7 [facility] Comment on above: Performed By: #### L 506.1000, L502.0500, L100.0100, L500.4100, L501.9985, L500.4050, L503.0105, L509.1000 #### [facility] Laboratory [address] [place], [address] Basophils/100 WBC (Bld) 0.3 % Normal 0-1 [facility] Comment on above: Performed By: #### L 506.1000, L502.0500, L100.0100, L500.4100, L501.9985, L500.4050, L503.0105, L509.1000 #### [facility] Laboratory [address] [place], [address] Eosinophils/100 WBC (Bld) 7.9 % High 0-5 [facility] Comment on above: Performed By: #### L 506.1000, L502.0500, L100.0100, L500.4100, L501.9985, L500.4050, L503.0105, L509.1000 #### [facility] Laboratory [address] [place], [address] Erythrocyte distribution width (RBC) [Ratio] 12.8 % Normal 11.6-14.6 [facility] Comment on above: Performed By: #### L 506.1000, L502.0500, L100.0100, L500.4100, L501.9985, L500.4050, L503.0105, L509.1000 #### [facility] Laboratory [address] [place], [address] Hematocrit (Bld) [Volume fraction] 38.2 % Normal 37-47 [facility] Comment on above: Performed By: #### L 506.1000, L502.0500, L100.0100, L500.4100, L501.9985, L500.4050, L503.0105, L509.1000 #### [facility] Laboratory [address] [place], [address] Hemoglobin (Bld) [Mass/Vol] 12.1 g/dL Normal 12.0-15.0 [facility] Comment on above: Performed By: #### L 506.1000, L502.0500, L100.0100, L500.4100, L501.9985, L500.4050, L503.0105, L509.1000 #### [facility] Laboratory [address] [place], [address] IG% 0.300 Normal 0.0-0.9 [facility] Comment on above: Result Comment: IG% - Immature Granulocytes (promyelocytes, myelocytes and metamyelocytes) > 1% indicates that a LEFT SHIFT is Present. Performed By: #### L 506.1000, L502.0500, L100.0100, L500.4100, L501.9985, L500.4050, L503.0105, L509.1000 #### [facility] Laboratory [address] [place], [address] Lymphocytes/100 WBC (Bld) 11.0 % Low 19-41 [facility] Comment on above: Performed By: #### L 506.1000, L502.0500, L100.0100, L500.4100, L501.9985, L500.4050, L503.0105, L509.1000 #### [facility] Laboratory [address] [place], [address] MCH (RBC) [Entitic mass] 28.3 pg Normal 27.0-32.0 [facility] Comment on above: Performed By: #### L 506.1000, L502.0500, L100.0100, L500.4100, L501.9985, L500.4050, L503.0105, L509.1000 #### [facility] Laboratory [address] [place], [address] MCHC (RBC) [Mass/Vol] 31.7 g/dL Low 32-36 [facility] Comment on above: Performed By: #### L 506.1000, L502.0500, L100.0100, L500.4100, L501.9985, L500.4050, L503.0105, L509.1000 #### [facility] Laboratory [address] [place], [address] MCV (RBC) [Entitic vol] 89.5 fL Normal 81-99 [facility] Comment on above: Performed By: #### L 506.1000, L502.0500, L100.0100, L500.4100, L501.9985, L500.4050, L503.0105, L509.1000 #### [facility] Laboratory [address] [place], [address] Monocytes/100 WBC (Bld) 7.6 % Normal 0-10 [facility] Comment on above: Performed By: #### L 506.1000, L502.0500, L100.0100, L500.4100, L501.9985, L500.4050, L503.0105, L509.1000 #### [facility] Laboratory [address] [place], [address] Neutrophils/100 WBC (Bld) 72.9 % High 47-70 [facility] Comment on above: Performed By: #### L 506.1000, L502.0500, L100.0100, L500.4100, L501.9985, L500.4050, L503.0105, L509.1000 #### [facility] Laboratory [address] [place], [address] Nucleated RBC (Bld) [#/Vol] 0 10*3/uL Normal 0-5 [facility] Comment on above: Performed By: #### L 506.1000, L502.0500, L100.0100, L500.4100, L501.9985, L500.4050, L503.0105, L509.1000 #### [facility] Laboratory [address] [place] [place], [address] Platelet mean volume (Bld) [Entitic vol] 8.9 fL Normal 6.2-12.0 [facility] Comment on above: Performed By: #### L 506.1000, L502.0500, L100.0100, L500.4100, L501.9985, L500.4050, L503.0105, L509.1000 #### [facility] Laboratory [address] [place], [address] Platelets (Bld) [#/Vol] 204 10*3/uL Normal 150-450 [facility] Comment on above: Performed By: #### L 506.1000, L502.0500, L100.0100, L500.4100, L501.9985, L500.4050, L503.0105, L509.1000 #### [facility] Laboratory [address] [place], [address] RBC (Bld) [#/Vol] 4.27 10*6/uL Normal 4.2-5.4 [facility] Comment on above: Performed By: #### L 506.1000, L502.0500, L100.0100, L500.4100, L501.9985, L500.4050, L503.0105, L509.1000 #### [facility] Laboratory [address] [place], [address] RDW SD 41.9 fl Normal 35.1-43.9 [facility] Comment on above: Performed By: #### L 506.1000, L502.0500, L100.0100, L500.4100, L501.9985, L500.4050, L503.0105, L509.1000 #### [facility] Laboratory [address] [facility] [place], [address] WBC (Bld) [#/Vol] 9.7 10*3/uL Normal 4.4-11.0 [facility] Comment on above: Performed By: #### L 506.1000, L502.0500, L100.0100, L500.4100, L501.9985, L500.4050, L503.0105, L509.1000 #### [facility] Laboratory [address] [place], [address] Carbon dioxide, total [Moles /volume] in Central venous bloodOrdered By: Frankie Cerrato on 10-05-2024 CO2 [Moles/Vol] 30.5 mmol/L 21.0-32.0 [facility] Chest PA and Lateralon 10-05 Chest PA and Lateral [facility] Imaging Services [address] [place], [place] [address] ([address] Chest PA and Lateral MR#: [id number] Acct: [id number] Name: ANDERSONTAMICA Figueroa Rep #: [id number] : 1940 F 84 From: Martita Coyne MD PCP: Dr. Dominique Lang MD Status: REG ER Study: Chest PA and Lateral Date of Exam: 10/05/24 Exam# [id number] Ordering Dr: Frankie Cerrato MD EXAM: XR Chest, 2 Views [...] IMPRESSION: Bibasilar atelectasis or pneumonia. Reading Location: [facility] CC: Dr. Dominique Lang MD; Dr. 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, [address] Albumin/Globulin [Mass ratio] 1.2 {ratio} Normal 0.9-2.4 [facility] Comment on above: Performed By: #### L 506.1000, L502.0500, L100.0100, L500.4100, L501.9985, L500.4050, L503.0105, L509.1000 #### [facility] Laboratory [address] [place], [place], [id number] ALK PHOS 127 U/L High 35-104 [facility] Comment on above: Performed By: #### L 506.1000, L502.0500, L100.0100, L500.4100, L501.9985, L500.4050, L503.0105, L509.1000 #### [facility] Laboratory [address] [place], [place], [id number] (445) ALT [Catalytic activity/Vol] 9 U/L Normal <=34 [facility] Comment on above: Performed By: #### L 506.1000, L502.0500, L100.0100, L500.4100, L501.9985, L500.4050, L503.0105, L509.1000 #### [facility] Laboratory [address] [place], [address] AST [Catalytic activity/Vol] 24 U/L Normal <=31 [facility] Comment on above: Performed By: #### L 506.1000, L502.0500, L100.0100, L500.4100, L501.9985, L500.4050, L503.0105, L509.1000 #### [facility] Laboratory [address] [place] [place], [address] Bilirubin [Mass/Vol] 0.28 mg/dL Normal 0.00-1.30 [facility] Comment on above: Performed By: #### L 506.1000, L502.0500, L100.0100, L500.4100, L501.9985, L500.4050, L503.0105, L509.1000 #### [facility] Laboratory [address] [place] [place], [address] BUN/CRE 20.9 RATIO High 10-20 [facility] Comment on above: Performed By: #### L 506.1000, L502.0500, L100.0100, L500.4100, L501.9985, L500.4050, L503.0105, L509.1000 #### [facility] Laboratory [address] [place], [address] Calcium [Mass/Vol] 9.9 mg/dL Normal 7.6-11.0 [facility] Comment on above: Performed By: #### L 506.1000, L502.0500, L100.0100, L500.4100, L501.9985, L500.4050, L503.0105, L509.1000 #### [facility] Laboratory [address] [place], [address] Chloride [Moles/Vol] 100 mmol/L Normal 98-108 [facility] Comment on above: Performed By: #### L 506.1000, L502.0500, L100.0100, L500.4100, L501.9985, L500.4050, L503.0105, L509.1000 #### [facility] Laboratory [address] [place], [address] CO2 [Moles/Vol] 30.5 mmol/L Normal 21.0-32.0 [facility] Comment on above: Performed By: #### L 506.1000, L502.0500, L100.0100, L500.4100, L501.9985, L500.4050, L503.0105, L509.1000 #### [facility] Laboratory [address] [place], [address] Creatinine [Mass/Vol] 0.76 mg/dL Normal 0.70-1.20 [facility] Comment on above: Performed By: #### L 506.1000, L502.0500, L100.0100, L500.4100, L501.9985, L500.4050, L503.0105, L509.1000 #### [facility] Laboratory [address] [place], [address] ECRCL 41.77 ml/min Low 50-250 [facility] Comment on above: Performed By: #### L 506.1000, L502.0500, L100.0100, L500.4100, L501.9985, L500.4050, L503.0105, L509.1000 #### [facility] Laboratory [address] [place], [address] GAP 12 Normal 5-15 [facility] Comment on above: Performed By: #### L 506.1000, L502.0500, L100.0100, L500.4100, L501.9985, L500.4050, L503.0105, L509.1000 #### [facility] Laboratory [address] [place], [address] GFR/1.73 sq M.predicted among non-blacks MDRD (S/P/Bld) [Vol rate/Area] 77 mL/min/{1.73_m2} Normal >60 [facility] Comment on above: Result Comment: mL/m in/1.73m2 CKD-EPI Creatinine Equation (2020) Performed By: #### L 506.1000, L502.0500, L100.0100, L500.4100, L501.9985, L500.4050, L503.0105, L509.1000 #### [facility] Laboratory [address] [place], [address] Globulin (S) [Mass/Vol] 3.3 g/dL Normal 2.2-4.2 [facility] Comment on above: Performed By: #### L 506.1000, L502.0500, L100.0100, L500.4100, L501.9985, L500.4050, L503.0105, L509.1000 #### [facility] Laboratory [address] [place], [address] Glucose [Mass/Vol] 178 mg/dL High 70-99 [facility] Comment on above: Performed By: #### L 506.1000, L502.0500, L100.0100, L500.4100, L501.9985, L500.4050, L503.0105, L509.1000 #### [facility] Laboratory [address] [place], [address] Potassium [Moles/Vol] 4.2 mmol/L Normal 3.3-5.1 [facility] Comment on above: Performed By: #### L 506.1000, L502.0500, L100.0100, L500.4100, L501.9985, L500.4050, L503.0105, L509.1000 #### [facility] Laboratory [address] [place], [address] Sodium [Moles/Vol] 143 mmol/L Normal 133-145 [facility] Comment on above: Performed By: #### L 506.1000, L502.0500, L100.0100, L500.4100, L501.9985, L500.4050, L503.0105, L509.1000 #### [facility] [address] [place], [address] T PROT 7.2 g/dL Normal 5.9-8.4 [facility] Comment on above: Performed By: #### L 506.1000, L502.0500, L100.0100, L500.4100, L501.9985, L500.4050, L503.0105, L509.1000 #### [facility] Laboratory [address] [place], [address] Urea nitrogen [Mass/Vol] 16 mg/dL Normal 4-19 [facility] Comment on above: Performed By: #### L 506.1000, L502.0500, L100.0100, L500.4100, L501.9985, L500.4050, L503.0105, L509.1000 #### [facility] Laboratory [address] [place], [address] Emergency Department Summary on 10-05-2024 Emergency Department Summary [facility] Medical Records Department [address] [place] [address] Emergency Department Summary 10/05/24 MR#: [id number] Acct: [id number] Name: TAMICA ANDERSON Rep #: [id number] : 1940 84 From: Frankie Cerrato MD PCP: Dr. Dominique Lang MD Status:DEP ER Location: ED HPI History of Present Illness Chief Complaint: General Illness Detail of Chief Complaint: Sent to ER because a pulse ox of 89% in doctor's office. Informant: patient and family Onset/Context/Timing Onset: Weeks (1 to 2 weeks) Context: Gradual Onset Timing: Continuous and Waxes and wanes Quality: Productive cough, dyspnea, dyspnea on exertion Location: Respiratory Current Severity: Mild Maximum Severity: Moderate Worsened by: Activity Relieved by: Better with rest Associated Symptoms Associated Symptoms: Productive cough Narrative Narrative: Patient is an 84-year-old woman. She has history of sleep apnea, stage III chronic kidney disease, diabetes mellitus, atherosclerotic heart disease, essential primary hypertension, hyperlipidemia. She had multivessel bypass surgery in 2001. She has stent placed 2014. She was setting from DrBrian's office because of pulse ox of 89% and productive cough. She has had no documented fever or subjective fever. She denies headache, visual, ocular auditory symptoms. She denies rhinorrhea, congestion, postnasal drainage sore throat. She denies chest pain, pressure, tightness or heaviness. There is no history of VTE. She denies leg pain or discoloration. She denies abdominal pain, nausea, vomiting or diarrhea. 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 Home Medications ???Medication ???Instructions ???Recorded ???Last Taken ???Type aspirin 81 mg tablet,delayed 81 mg PO DAILY heart 07/24/1809/16 History release (Adult Aspirin Regimen) furosemide 40 mg tablet 40 mg PO DAILY edema 05/18/2109/16 History potassium chloride 10 mEq 10 meq PO DAILY supplement 2 10/04/24 History tablet,extended release rosuvastatin 10 mg tablet (Crestor) 10 mg PO DAILY cholesterol 10/0610/04/24 History acetaminophen 500 mg capsule 500 mg PO Q6H PRN Pain 04/26/22 Un known History nystatin 100,000 unit/gram topical 1 applic topical TID PRN 3 Unknown History ointment calcium carbonate 600 mg PO DAILY 06/10/23 10/04/24 History buspirone 10 mg tablet 10 mg PO BID 06/16/24 10/04/24 His tory metformin 500 mg tablet 1,000 mg PO QDAY diabetes 06/16/24 10/04/24 History clonazepam 0.5 mg tablet 0.5 mg PO BID PRN anxiety 06/30/24 10/04/24 History albuterol sulfate 90 mcg/actuation 2 puff inhalation Q4H PRN PRN Unknown Rx aerosol inhaler (Ventolin HFA) Wheezing ##1 amoxicillin 875 mg-potassium 875 mg PO Q12H #14 TABLETS 5 Unknown Rx clavulanate 125 mg tablet azithromycin 250 mg tablet See Rx Instructions PO .COMPLEX #6 10/05/24 Unknown Rx (Zithromax Z-Beka) tabs biotin 10 mg tablet 10 mg PO DAILY 10/05/24 10/04/24 H istory coenzyme Q10 200 mg capsule (Co 200 mg PO DAILY 10/05/24 10/04/24 History Q-10) gabapentin 100 mg capsule 100 mg PO BID leg pain 10/05/24 History midodrine 2.5 mg tablet 2.5 mg PO BID 10/05/24 10/04/24 Hi story sertraline 100 mg tablet 100 mg PO DAILY 10/05/24 10/04/24 History Allergy/AdvReac Type Severity Reaction Status Date / Time adhesive tape AdvReac Unknown Verified 10/05/24 10:38 morphine AdvReac Vomiting Verified 10/05/24 10:38 Mvaqlew-CQC-PnY Reductase AdvReac Pain in Verified 10/05/24 10:38 Inhibitor (Svgbydy-Erv-Njc joints Reductase Inhibitor) Family History Mother Hypertension [...] never substance use type: does not use caffei (more content not included)... Normal [facility] Eosinophil percentageOrdered By: Frankie Cerrato on 10-05-2024 Eosinophils/100 WBC (Bld) 7.9 % High 0-5 [facility] Erythrocyte distribution wid th ratioOrdered By: Frankie Cerrato on 10-05-2024 Erythrocyte distribution width (RBC) [Ratio] 12.8 % 11.6-14.6 [facility] Erythrocyte distribution wid th standard deviationOrdered By: Frankiejoseph Cerrato on 10-05-2024 Erythrocyte distribution width (RBC) [Ratio] 41.9 fl 35.1-43.9 [facility] Glomerular filtration rate ( GFR) estimation/1.73 sq m using serum, plasma, or whole bOrdered By: Frankie Cerrato on 10-05-2024 GFR/1.73 sq M.predicted among non-blacks MDRD (S/P/Bld) [Vol rate/Area] 77 mL/min/{1.73_m2} >60 [facility] Comment on above: mL/min/1.73m2 CKD-EP I Creatinine Equation (2020) Hematocrit Auto (Bld) [Volum e fraction]Ordered By: Frankie Cerrato on 10-05-2024 Hematocrit (Bld) [Volume fraction] 38.2 % 37-47 [facility] Hemoglobin measurementOrdere d By: Frankie Cerrato on 10-05-2024 Hemoglobin (Bld) [Mass/Vol] 12.1 g/dL 12.0-15.0 [facility] Immature granulocytes/100 WB C Auto (Bld)Ordered By: Frankie Cerrato on 10-05-2024 Immature granulocytes/100 WBC (Bld) 0.300 % 0.0-0.9 [facility] Comment on above: IG% - Immature Granu locytes (promyelocytes, myelocytes and metamyelocytes) > 1% indicates that a LEFT SHIFT is Present. Laboratory - Chemistry and C hemistry - challengeOrdered By: Frankie Cerrato on 10-05-2024 AST [Catalytic activity/Vol] 24 U/L <32 [facility] Lactic Acidon 10-05-2024 Lactate [Moles/Vol] 1.5 mmol/L Normal 0.0-2.0 [facility] Comment on above: Order Comment: Order Date: 05/05/24 Order Info: [id number] - CMP Order Info: [id number] - LIPID Performed By: #### L 506.1000, L502.0500, L100.0100, L500.4100, L501.9985, L500.4050, L503.0105, L509.1000 #### [facility] Laboratory [address] [place] [address], [id number] Lactic acid measurementOrder ed By: Frankie Cerrato on 10-05-2024 Lactate [Moles/Vol] 1.5 mmol/L 0.0-2.0 [facility] MCV (mean corpuscular volume ) determinationOrdered By: Frankie Cerrato on 10-05-2024 MCV (RBC) [Entitic vol] 89.5 fL 81-99 [facility] Mean corpuscular hemoglobin (MCH) determinationOrdered By: Frankiejoseph Cerrato on 10-05-2024 MCH (RBC) [Entitic mass] 28.3 pg 27.0-32.0 [facility] Mean corpuscular hemoglobin concentration (MCHC) determinationOrdered By: Frankiejoseph Cerrato on 10-05-2024 MCHC (RBC) [Mass/Vol] 31.7 g/dL Low 32-36 [facility] Mean platelet volume determi nationOrdered By: Frankie Cerrato on 10-05-2024 Platelet mean volume (Bld) [Entitic vol] 8.9 fL 6.2-12.0 [facility] Monocyte percentageOrdered B y: Frankie Cerrato on 10-05-2024 Monocytes/100 WBC (Bld) 7.6 % 0-10 [facility] Neutrophil percentageOrdered By: Frankie Cerrato on 10-05-2024 Neutrophils/100 WBC (Bld) 72.9 % High 47-70 [facility] Nucleated red blood cell per centageOrdered By: Frankie Cerrato on 10-05-2024 Nucleated RBC/100 WBC (Bld) [Ratio] 0 % 0-5 [facility] Platelet countOrdered By: Skinny Cerrato on 10-05-2024 Platelets (Bld) [#/Vol] 204 10*3/uL 150-450 [facility] Potassium measurement (mass/ volume)Ordered By: Frankiejoseph Cerrato on 10-05-2024 Potassium (Unsp spec) [Mass/Vol] 4.2 mmol/L 3.3-5.1 [facility] RBC Auto (Bld) [#/Vol]Ordere d By: Frankie Cerrato on 10-05-2024 RBC (Bld) [#/Vol] 4.27 10*6/uL 4.2-5.4 [facility] Serum creatinine measurement (mass/volume)Ordered By: Frankie Cerrato on 10-05-2024 Creatinine [Mass/Vol] 0.76 mg/dL 0.70-1.20 [facility] Serum globulin measurementOr dered By: Frankie Cerrato on 10-05-2024 Globulin (S) [Mass/Vol] 3.3 g/dL 2.2-4.2 [facility] Serum glucose measurement (m ass/volume)Ordered By: Frankie Cerrato on 10-05-2024 Glucose [Mass/Vol] 178 mg/dL High 70-99 [facility] Serum or plasma alanine rico otransferase (ALT) measurementOrdered By: Frankie Cerrato on 10-05-2024 ALT [Catalytic activity/Vol] 9 U/L <35 [facility] Serum or plasma albumin chris urement (mass/volume)Ordered By: Frankie Cerrato on 10-05-2024 Albumin [Mass/Vol] 3.9 g/dL 3.4-4.8 [facility] Serum or plasma albumin/glob ulin mass ratioOrdered By: Frankiejoseph Cerrato on 10-05-2024 Albumin/Globulin [Mass ratio] 1.2 {ratio} 0.9-2.4 [facility] Serum or plasma alkaline mohamud sphatase [facility]Ordered By: [facility] ALP [Catalytic activity/Vol] 127 U/L High 35-104 [facility] Serum or plasma calcium chris urement (mass/volume)Ordered By: Frankiejoseph Cerrato on 10-05-2024 Calcium [Mass/Vol] 9.9 mg/dL 7.6-11.0 [facility] Serum or plasma urea nitroge n measurement (mass/volume)Or[facility] 10-[facility]24 Urea nitrogen [Mass/Vol] 16 mg/dL 4-19 [facility] Sodium levelOrdered By: [facility] on 10-05-2024 Sodium [Moles/Vol] 143 mmol/L 133-145 [facility] Total proteinOrdered By: Frankie Cerrato on 10-05-2024 Protein [Mass/Vol] 7.2 g/dL 5.9-8.4 [facility] White blood cell (WBC) count Ordered By: Frankiejoseph Cerrato on 10-05-2024 WBC (Bld) [#/Vol] 9.7 10*3/uL 4.4-11.0 [facility] Absolute lymphocyte countOrd ered By: Dominique Lang on 09-16-2024 Lymphocytes Auto (Unsp spec) [#/Vol] 1.66 10*3/uL 0.83-4.51 [facility] Absolute neutrophil countOrd ered By: Dominique Lang on 09-16-2024 Neutrophils (Bld) [#/Vol] 6.7 10*3/uL 2.0-7.7 [facility] Anion gap in Serum or Plasma Ordered By: Dominique Lang on 09-16-2024 Anion gap [Moles/Vol] 16 mmol/L High 5-15 [facility] Automated lymphocyte count a s percentage of total leukocytesOrdered By: Dominique Lang on 09-16-2024 Lymphocytes/100 WBC Auto (Unsp spec) 17.7 % Low 19-41 [facility] BUN/creatinine ratioOrdered By: Dominique Precious on 09-16-2024 Urea nitrogen/Creatinine [Mass ratio] 18.9 mg/mg 10-20 [facility] Basophil percentageOrdered B y: Dominique Precious on 09-16-2024 Basophils/100 WBC (Bld) 0.5 % 0-1 [facility] Bilirubin Test strip Ql (U)O rdered By: Dominique Lang on 09-16-2024 Bilirubin Ql (U) Negative Negative [facility] Bilirubin, totalOrdered By: Dominique Lang on 09-16-2024 Bilirubin [Mass/Vol] 0.25 mg/dL 0.00-1.30 [facility] CBC W/Diff, Automatedon Absolute Lymph 1.66 X10 3/uL Normal 0.83-4.51 [facility] Comment on above: Order Comment: Order Date: 05/05/24 Order Info: 4548-4 - A1C Performed By: #### L 506.1000, L502.0500, L100.0100, L500.4100, L501.9985, L500.4050, L503.0105, L509.1000 #### [facility] [address] [place], [address] Absolute Neut 6.7 X10 3/uL Normal 2.0-7.7 [facility] Comment on above: Order Comment: Order Date: 05/05/24 Order Info: 4548-4 - A1C Performed By: #### L 506.1000, L502.0500, L100.0100, L500.4100, L501.9985, L500.4050, L503.0105, L509.1000 #### [facility] [address] [facility] [place], [address] Basophils/100 WBC (Bld) 0.5 % Normal 0-1 [facility] Comment on above: Order Comment: Order Date: 05/05/24 Order Info: 4548-4 - A1C Performed By: #### L 506.1000, L502.0500, L100.0100, L500.4100, L501.9985, L500.4050, L503.0105, L509.1000 #### [facility] [address] [place], [address] Eosinophils/100 WBC (Bld) 2.2 % Normal 0-5 [facility] Comment on above: Order Comment: Order Date: 05/05/24 Order Info: 4548-4 - A1C Performed By: #### L 506.1000, L502.0500, L100.0100, L500.4100, L501.9985, L500.4050, L503.0105, L509.1000 #### [facility] [address] [place], [address] Erythrocyte distribution width (RBC) [Ratio] 13.2 % Normal 11.6-14.6 [facility] Comment on above: Order Comment: Order Date: 05/05/24 Order Info: 4548-4 - A1C Performed By: #### L 506.1000, L502.0500, L100.0100, L500.4100, L501.9985, L500.4050, L503.0105, L509.1000 #### [facility] [address] [facility] [place], [address] Hematocrit (Bld) [Volume fraction] 37.2 % Normal 37-47 [facility] Comment on above: Order Comment: Order Date: 05/05/24 Order Info: 4548-4 - A1C Performed By: #### L 506.1000, L502.0500, L100.0100, L500.4100, L501.9985, L500.4050, L503.0105, L509.1000 #### [facility] [address] [facility] [facility] [place], [address] Hemoglobin (Bld) [Mass/Vol] 12.1 g/dL Normal 12.0-15.0 [facility] Comment on above: Order Comment: Order Date: 05/05/24 Order Info: 4548-4 - A1C Performed By: #### L 506.1000, L502.0500, L100.0100, L500.4100, L501.9985, L500.4050, L503.0105, L509.1000 #### [facility] [address] [place], [address] IG% 0.300 Normal 0.0-0.9 [facility] Comment on above: Order Comment: Order Date: 05/05/24 Order Info: 4548-4 - A1C Result Comment: IG% - Immature Granulocytes (promyelocytes, myelocytes and metamyelocytes) > 1% indicates that a LEFT SHIFT is Present. Performed By: #### L 506.1000, L502.0500, L100.0100, L500.4100, L501.9985, L500.4050, L503.0105, L509.1000 #### [facility] [address] [place], [place], [id number] Lymphocytes/100 WBC (Bld) 17.7 % Low 19-41 [facility] Comment on above: Order Comment: Order Date: 05/05/24 Order Info: 4548-4 - A1C Performed By: #### L 506.1000, L502.0500, L100.0100, L500.4100, L501.9985, L500.4050, L503.0105, L509.1000 #### [facility] [address] [place], [place], [id number] MCH (RBC) [Entitic mass] 28.9 pg Normal 27.0-32.0 [facility] Comment on above: Order Comment: Order Date: 05/05/24 Order Info: 4548-4 - A1C Performed By: #### L 506.1000, L502.0500, L100.0100, L500.4100, L501.9985, L500.4050, L503.0105, L509.1000 #### [facility] [address] [place], [place], [id number] MCHC (RBC) [Mass/Vol] 32.5 g/dL Normal 32-36 [facility] Comment on above: Order Comment: Order Date: 05/05/24 Order Info: 4548-4 - A1C Performed By: #### L 506.1000, L502.0500, L100.0100, L500.4100, L501.9985, L500.4050, L503.0105, L509.1000 #### [facility] [address] [place], [address] MCV (RBC) [Entitic vol] 89.0 fL Normal 81-99 [facility] Comment on above: Order Comment: Order Date: 05/05/24 Order Info: 4548-4 - A1C Performed By: #### L 506.1000, L502.0500, L100.0100, L500.4100, L501.9985, L500.4050, L503.0105, L509.1000 #### [facility] [address] [place], [address] Monocytes/100 WBC (Bld) 8.1 % Normal 0-10 [facility] Comment on above: Order Comment: Order Date: 05/05/24 Order Info: 4548-4 - A1C Performed By: #### L 506.1000, L502.0500, L100.0100, L500.4100, L501.9985, L500.4050, L503.0105, L509.1000 #### [facility] [address] [place], [address] Neutrophils/100 WBC (Bld) 71.2 % High 47-70 [facility] Comment on above: Order Comment: Order Date: 05/05/24 Order Info: 4548-4 - A1C Performed By: #### L 506.1000, L502.0500, L100.0100, L500.4100, L501.9985, L500.4050, L503.0105, L509.1000 #### [facility] [address] [place], [address] Nucleated RBC (Bld) [#/Vol] 0 10*3/uL Normal 0-5 [facility] Comment on above: Order Comment: Order Date: 05/05/24 Order Info: 4548-4 - A1C Performed By: #### L 506.1000, L502.0500, L100.0100, L500.4100, L501.9985, L500.4050, L503.0105, L509.1000 #### [facility] [address] [place], [address] Platelet mean volume (Bld) [Entitic vol] 10.5 fL Normal 6.2-12.0 [facility] Comment on above: Order Comment: Order Date: 05/05/24 Order Info: 4548-4 - A1C Performed By: #### L 506.1000, L502.0500, L100.0100, L500.4100, L501.9985, L500.4050, L503.0105, L509.1000 #### [facility] [address] [place], [address] Platelets (Bld) [#/Vol] 225 10*3/uL Normal 150-450 [facility] Comment on above: Order Comment: Order Date: 05/05/24 Order Info: 4548-4 - A1C Performed By: #### L 506.1000, L502.0500, L100.0100, L500.4100, L501.9985, L500.4050, L503.0105, L509.1000 #### [facility] [address] [place], [address] RBC (Bld) [#/Vol] 4.18 10*6/uL Low 4.2-5.4 [facility] Comment on above: Order Comment: Order Date: 05/05/24 Order Info: 4548-4 - A1C Performed By: #### L 506.1000, L502.0500, L100.0100, L500.4100, L501.9985, L500.4050, L503.0105, L509.1000 #### [facility] [address] [place], [address] RDW SD 42.8 fl Normal 35.1-43.9 [facility] Comment on above: Order Comment: Order Date: 05/05/24 Order Info: 4548-4 - A1C Performed By: #### L 506.1000, L502.0500, L100.0100, L500.4100, L501.9985, L500.4050, L503.0105, L509.1000 #### [facility] [address] [place], [place], [phone] WBC (Bld) [#/Vol] 9.4 10*3/uL Normal 4.4-11.0 [facility] Comment on above: Order Comment: Order Date: 05/05/24 Order Info: 4548-4 - A1C Performed By: #### L 506.1000, L502.0500, L100.0100, L500.4100, L501.9985, L500.4050, L503.0105, L509.1000 #### [facility] [address] [facility] [place], [place], [id number] Calculated very low density lipoprotein (VLDL) cholesterol measurementOrdered By: Dominique Lang on 09-16-2024 Calculated very low density lipoprotein (VLDL) cholesterol measurement 47 mg/dL High 5-40 [facility] Carbon dioxide, total [Moles /volume] in Central venous bloodOrdered By: Dominique Lang on 09-16-2024 CO2 [Moles/Vol] 26.1 mmol/L 21.0-32.0 [facility] Chloride assayOrdered By: Liliana Lang on 09-16-2024 Chloride [Moles/Vol] 100 mmol/L 98-108 [facility] Comprehensive Metabolic Prof ilon 09-16-2024 Albumin/Globulin [Mass ratio] 1.2 {ratio} Normal 0.9-2.4 [facility] Comment on above: Order Comment: Order Date: 05/05/24 Order Info: [id number] - CMP Order Info: [id number] - LIPID Performed By: #### L 506.1000, L502.0500, L100.0100, L500.4100, L501.9985, L500.4050, L503.0105, L509.1000 #### [facility] [address] [place], [place], [id number] ALK PHOS 111 U/L High 35-104 [facility] Comment on above: Order Comment: Order Date: 05/05/24 Order Info: 0786- - CMP Order Info: [id number] - LIPID Performed By: #### L 506.1000, L502.0500, L100.0100, L500.4100, L501.9985, L500.4050, L503.0105, L509.1000 #### [facility] [address] [place], [place], [phone] ALT [Catalytic activity/Vol] 16 U/L Normal <=34 [facility] Comment on above: Order Comment: Order Date: 05/05/24 Order Info: [id number] - CMP Order Info: [id number] - LIPID Performed By: #### L 506.1000, L502.0500, L100.0100, L500.4100, L501.9985, L500.4050, L503.0105, L509.1000 #### [facility] [address] [place], [place], [phone] AST [Catalytic activity/Vol] 32 U/L Normal <=31 [facility] Comment on above: Order Comment: Order Date: 05/05/24 Order Info: [id number] - CMP Order Info: [id number] - LIPID Performed By: #### L 506.1000, L502.0500, L100.0100, L500.4100, L501.9985, L500.4050, L503.0105, L509.1000 #### [facility] [address] [place], [address] Bilirubin [Mass/Vol] 0.25 mg/dL Normal 0.00-1.30 [facility] Comment on above: Order Comment: Order Date: 05/05/24 Order Info: 0786- - CMP Order Info: [id number] - LIPID Performed By: #### L 506.1000, L502.0500, L100.0100, L500.4100, L501.9985, L500.4050, L503.0105, L509.1000 #### [facility] [address] [place], [address] Calcium [Mass/Vol] 9.6 mg/dL Normal 7.6-11.0 [facility] Comment on above: Order Comment: Order Date: 05/05/24 Order Info: 0786 - CMP Order Info: [id number] - LIPID Performed By: #### L 506.1000, L502.0500, L100.0100, L500.4100, L501.9985, L500.4050, L503.0105, L509.1000 #### [facility] [address] [place], [address] Chloride [Moles/Vol] 100 mmol/L Normal 98-108 [facility] Comment on above: Order Comment: Order Date: 05/05/24 Order Info: 0786- - CMP Order Info: [id number] - LIPID Performed By: #### L 506.1000, L502.0500, L100.0100, L500.4100, L501.9985, L500.4050, L503.0105, L509.1000 #### [facility] [address] [place], [address] CO2 [Moles/Vol] 26.1 mmol/L Normal 21.0-32.0 [facility] Comment on above: Order Comment: Order Date: 05/05/24 Order Info: 0786- - CMP Order Info: [id number] - LIPID Performed By: #### L 506.1000, L502.0500, L100.0100, L500.4100, L501.9985, L500.4050, L503.0105, L509.1000 #### [facility] [address] [place], [address] GAP 16 High 5-15 [facility] Comment on above: Order Comment: Order Date: 05/05/24 Order Info: [id number] - CMP Order Info: [id number] - LIPID Performed By: #### L 506.1000, L502.0500, L100.0100, L500.4100, L501.9985, L500.4050, L503.0105, L509.1000 #### [facility] [address] [place], [address] Globulin (S) [Mass/Vol] 3.4 g/dL Normal 2.2-4.2 [facility] Comment on above: Order Comment: Order Date: 05/05/24 Order Info: [id number] - [facility] Order Info: [id number] - LIPID Performed By: #### L 506.1000, L502.0500, L100.0100, L500.4100, L501.9985, L500.4050, L503.0105, L509.1000 #### [facility] [address] [place], [address] Potassium [Moles/Vol] 3.7 mmol/L Normal 3.3-5.1 [facility] Comment on above: Order Comment: Order Date: 05/05/24 Order Info: [id number] - CMP Order Info: [id number] - LIPID Performed By: #### L 506.1000, L502.0500, L100.0100, L500.4100, L501.9985, L500.4050, L503.0105, L509.1000 #### [facility] [address] [place], [address] Sodium [Moles/Vol] 142 mmol/L Normal 133-145 [facility] Comment on above: Order Comment: Order Date: 05/05/24 Order Info: [id number] - CMP Order Info: [id number] - LIPID Performed By: #### L 506.1000, L502.0500, L100.0100, L500.4100, L501.9985, L500.4050, L503.0105, L509.1000 #### [facility] [address] [place], [address] Albumin [Mass/Vol] 3.9 g/dL Normal 3.4-4.8 [facility] Comment on above: Order Comment: Order Date: 05/05/24 Order Info: 0786- - CMP Order Info: [id number] - LIPID Performed By: #### L 506.1000, L502.0500, L100.0100, L500.4100, L501.9985, L500.4050, L503.0105, L509.1000 #### [facility] [address] [place], [place], [id number] BUN/CRE 18.9 RATIO Normal 10-20 [facility] Comment on above: Order Comment: Order Date: 05/05/24 Order Info: 0786- - CMP Order Info: [id number] - LIPID Performed By: #### L 506.1000, L502.0500, L100.0100, L500.4100, L501.9985, L500.4050, L503.0105, L509.1000 #### [facility] [address] [place], [place], [id number] Creatinine [Mass/Vol] 0.86 mg/dL Normal 0.70-1.20 [facility] Comment on above: Order Comment: Order Date: 05/05/24 Order Info: [id number] - CMP Order Info: [id number] - LIPID Performed By: #### L 506.1000, L502.0500, L100.0100, L500.4100, L501.9985, L500.4050, L503.0105, L509.1000 #### [facility] [address] [place], [address] GFR/1.73 sq M.predicted among non-blacks MDRD (S/P/Bld) [Vol rate/Area] 67 mL/min/{1.73_m2} Normal >60 [facility] Comment on above: Order Comment: Order Date: 05/05/24 Order Info: [id number] - CMP Order Info: [id number] - LIPID Result Comment: mL/m in/1.73m2 CKD-EPI Creatinine Equation (2020) Performed By: #### L 506.1000, L502.0500, L100.0100, L500.4100, L501.9985, L500.4050, L503.0105, L509.1000 #### [facility] [address] [place], [address] Glucose [Mass/Vol] 115 mg/dL High 70-99 [facility] Comment on above: Order Comment: Order Date: 05/05/24 Order Info: 0786- - CMP Order Info: [id number] - LIPID Performed By: #### L 506.1000, L502.0500, L100.0100, L500.4100, L501.9985, L500.4050, L503.0105, L509.1000 #### [facility] [address] [place], [address] T PROT 7.3 g/dL Normal 5.9-8.4 [facility] Comment on above: Order Comment: Order Date: 05/05/24 Order Info: [id number] - CMP Order Info: [id number] - LIPID Performed By: #### L 506.1000, L502.0500, L100.0100, L500.4100, L501.9985, L500.4050, L503.0105, L509.1000 #### [facility] [address] [place], [address] Urea nitrogen [Mass/Vol] 16 mg/dL Normal 4-19 [facility] Comment on above: Order Comment: Order Date: 05/05/24 Order Info: [id number] - CMP Order Info: [id number] - LIPID Performed By: #### L 506.1000, L502.0500, L100.0100, L500.4100, L501.9985, L500.4050, L503.0105, L509.1000 #### [facility] [address] [place], [place], [id number] Eosinophil percentageOrdered By: Dominique Lang on 09-16-2024 Eosinophils/100 WBC (Bld) 2.2 % 0-5 [facility] Erythrocyte distribution wid th ratioOrdered By: Dominique Lang on 09-16-2024 Erythrocyte distribution width (RBC) [Ratio] 13.2 % 11.6-14.6 [facility] Erythrocyte distribution wid th standard deviationOrdered By: Dominique Lang on 09-16-2024 Erythrocyte distribution width (RBC) [Ratio] 42.8 fl 35.1-43.9 [facility] Glomerular filtration rate ( GFR) estimation/1.73 sq m using serum, plasma, or whole bOrdered By: Dominique Lang on 09-16-2024 GFR/1.73 sq M.predicted among non-blacks MDRD (S/P/Bld) [Vol rate/Area] 67 mL/min/{1.73_m2} >60 [facility] Comment on above: mL/min/1.73m2 CKD-EP I Creatinine Equation (2020) Hematocrit Auto (Bld) [Volum e fraction]Ordered By: Dominique Lang on 09-16-2024 Hematocrit (Bld) [Volume fraction] 37.2 % 37-47 [facility] Hemoglobin A1con 09-16-2024 HbA1c (Bld) [Mass fraction] 6.2 % High <=5.6 [facility] Comment on above: Order Comment: Order Date: 05/05/24 Order Info: [id number] - A1C Result Comment: Norm al < 5.7 % Prediabetic 5.7 - 6.4 % Diabetic >or= 6.5 % Please note range changes. Performed By: #### L 506.1000, L502.0500, L100.0100, L500.4100, L501.9985, L500.4050, L503.0105, L509.1000 #### [facility] [address] [place], [address] Hemoglobin A1c percentageOrd ered By: Dominique Lang on 09-16-2024 HbA1c (Bld) [Mass fraction] 6.2 % High <5.7 [facility] Comment on above: Normal < 5.7 % Predi abetic 5.7 - 6.4 % Diabetic >or= 6.5 % Please note range changes. Hemoglobin measurementOrdere d By: Dominique Lang on 09-16-2024 Hemoglobin (Bld) [Mass/Vol] 12.1 g/dL 12.0-15.0 [facility] Immature granulocytes/100 WB C Auto (Bld)Ordered By: Dominique Lang on 09-16-2024 Immature granulocytes/100 WBC (Bld) 0.300 % 0.0-0.9 [facility] Comment on above: IG% - Immature Granu locytes (promyelocytes, myelocytes and metamyelocytes) > 1% indicates that a LEFT SHIFT is Present. Ketones Test strip Ql (U)Ord ered By: Dominique Lang on 09-16-2024 Ketones Ql (U) Negative Negative [facility] LDL calc ser/plasOrdered By: Dominique Lang on 09-16-2024 Cholesterol in LDL [Mass/Vol] 43 mg/dL [facility] Comment on above: Ldhfsbtfca=040-186 m g/dL & Higher Wlbd=052 mg/dL or greater Laboratory - Chemistry and C hemistry - challengeOrdered By: Dominique Lang on 09-16-2024 AST [Catalytic activity/Vol] 32 U/L <32 [facility] Lipid Profileon 09-16-2024 CHOL:HDL 2.90 Normal [facility] Comment on above: Order Comment: Order Date: 05/05/24 Order Info: [id number] - CMP Order Info: [id number] - LIPID Performed By: #### L 506.1000, L502.0500, L100.0100, L500.4100, L501.9985, L500.4050, L503.0105, L509.1000 #### [facility] [address] [place], [address] Cholesterol [Mass/Vol] 137 mg/dL Normal <=200 [facility] Comment on above: Order Comment: Order Date: 05/05/24 Order Info: [id number] - CMP Order Info: [id number] - LIPID Result Comment: Chol esterol level, Desirable <200 mg/dL Borderline high cholesterol 200-239 mg/dL High cholesterol >=240 mg/dL Recommendations of the NCEP Adult Treatment Panel for the following risk-cutoff thresholds for the [place] population. Performed By: #### L 506.1000, L502.0500, L100.0100, L500.4100, L501.9985, L500.4050, L503.0105, L509.1000 #### [facility] [address] [place], [address] Cholesterol in HDL [Mass/Vol] 47 mg/dL Normal [facility] Comment on above: Order Comment: Order Date: 05/05/24 Order Info: [id number] - CMP Order Info: [id number] - LIPID Result Comment: Giovanna onal Cholesterol Education Program (NCEP) guidelines: <40 mg/dL: Low HDL-cholesterol (major risk factor for CHD) >= 60 mg/dL: High HDL-cholesterol (negative risk factor for CHD) HDL-cholesterol is affected by a number of factors, e.g. smoking, exercise, hormones, sex and age. Performed By: #### L 506.1000, L502.0500, L100.0100, L500.4100, L501.9985, L500.4050, L503.0105, L509.1000 #### [facility] [address] [place], [address] Cholesterol in LDL [Mass/Vol] 43 mg/dL Normal [facility] Comment on above: Order Comment: Order Date: 05/05/24 Order Info: [id number] - CMP Order Info: [id number] - LIPID Result Comment: Bord gaohay=825-948 mg/dL Higher Cghp=385 mg/dL or greater Performed By: #### L 506.1000, L502.0500, L100.0100, L500.4100, L501.9985, L500.4050, L503.0105, L509.1000 #### [facility] [address] [place] [place], [address] Cholesterol in VLDL [Mass/Vol] 47 mg/dL High 5-40 [facility] Comment on above: Order Comment: Order Date: 05/05/24 Order Info: [id number] - CMP Order Info: [id number] - LIPID Performed By: #### L 506.1000, L502.0500, L100.0100, L500.4100, L501.9985, L500.4050, L503.0105, L509.1000 #### [facility] [address] [place], [address] Triglyceride [Mass/Vol] 234 mg/dL High [facility] Comment on above: Order Comment: Order Date: 05/05/24 Order Info: [id number] - CMP Order Info: [id number] - LIPID Result Comment: The drugs N-Acetylcysteine and Metamizole may falsely depress this assay. Normal range: <150 mg/dL Borderline High: 150-199 mg/dL High: 200-499 mg/dL Very High: >500 mg/dL Performed By: #### L 506.1000, L502.0500, L100.0100, L500.4100, L501.9985, L500.4050, L503.0105, L509.1000 #### [facility] [address] [place], [address] MCV (mean corpuscular volume ) determinationOrdered By: Dominique Lang on 09-16-2024 MCV (RBC) [Entitic vol] 89.0 fL 81-99 [facility] Mean corpuscular hemoglobin (MCH) determinationOrdered By: Dominique Lang on 09-16-2024 MCH (RBC) [Entitic mass] 28.9 pg 27.0-32.0 [facility] Mean corpuscular hemoglobin concentration (MCHC) determinationOrdered By: Dominique Lang on 09-16-2024 MCHC (RBC) [Mass/Vol] 32.5 g/dL 32-36 [facility] Mean platelet volume determi nationOrdered By: Dominique Lang on 09-16-2024 Platelet mean volume (Bld) [Entitic vol] 10.5 fL 6.2-12.0 [facility] Microalb:Creat Ratio,Random URon 09-16-2024 MALB:CREAT 210.8 mg/g CRE Normal [facility] Comment on above: Order Comment: Order Date: 05/05/24 Order Info: [id number] - CMP Order Info: [id number] - LIPID Performed By: #### L 506.1000, L502.0500, L100.0100, L500.4100, L501.9985, L500.4050, L503.0105, L509.1000 #### [facility] [address] [place], [place], [id number] MICROALBUMIN,UR 133.0 mg/L Normal NO RANGE EST. [facility] Comment on above: Order Comment: Order Date: 05/05/24 Order Info: [id number] - CMP Order Info: [id number] - LIPID Performed By: #### L 506.1000, L502.0500, L100.0100, L500.4100, L501.9985, L500.4050, L503.0105, L509.1000 #### [facility] [address] [place], [place], [id number] Microscopic analysis of urin e for red blood cells (RBC)Ordered By: Dominique Lang on 09-16-2024 Microscopic analysis of urine for red blood cells (RBC) 0-5 SEEN /hpf 0-5 [facility] Monocyte percentageOrdered B y: Dominique Lang on 09-16-2024 Monocytes/100 WBC (Bld) 8.1 % 0-10 [facility] Mucus LM Ql (Urine sed)Order ed By: Dominique Lang on 09-16-2024 Mucus Ql (Urine sed) 0 SEEN /hpf [facility] Neutrophil percentageOrdered By: Dominique Lang on 09-16-2024 Neutrophils/100 WBC (Bld) 71.2 % High 47-70 [facility] Nitrite Test strip Ql (U)Ord ered By: Dominique Lang on 09-16-2024 Nitrite Ql (U) Negative Negative [facility] Nucleated red blood cell per centageOrdered By: Dominique Lang on 09-16-2024 Nucleated RBC/100 WBC (Bld) [Ratio] 0 % 0-5 [facility] PTHINon 09-16-2024 PTH 36 pg/mL Normal 11-61 [facility] Comment on above: Order Comment: Order Date: 05/05/24 Order Info: [id number] - A1C Performed By: #### L 506.1000, L502.0500, L100.0100, L500.4100, L501.9985, L500.4050, L503.0105, L509.1000 #### [facility] [address] [place], [address] Phosphoruson 09-16-2024 Phosphate [Mass/Vol] 3.9 mg/dL Normal 2.7-4.5 [facility] Comment on above: Order Comment: Order Date: 05/05/24 Order Info: [id number] - CMP Order Info: [id number] - LIPID Performed By: #### L 506.1000, L502.0500, L100.0100, L500.4100, L501.9985, L500.4050, L503.0105, L509.1000 #### [facility] [address] [place], [address] Platelet countOrdered By: Liliana Lang on 09-16-2024 Platelets (Bld) [#/Vol] 225 10*3/uL 150-450 [facility] Potassium measurement (mass/ volume)Ordered By: Dominique Lang on 09-16-2024 Potassium (Unsp spec) [Mass/Vol] 3.7 mmol/L 3.3-5.1 [facility] Protein Test strip Ql (U)Ord ered By: Dominique Lang on 09-16-2024 Protein Ql (U) 30 mg/dl High Negative [facility] Protein+Creatinine Ratio,Uri neon 09-16-2024 PROT:CRE RATIO 398 mg/g CRE High 0-200 [facility] Comment on above: Order Comment: Order Date: 05/05/24 Order Info: [id number] - CMP Order Info: [id number] - LIPID Performed By: #### L 506.1000, L502.0500, L100.0100, L500.4100, L501.9985, L500.4050, L503.0105, L509.1000 #### [facility] [address] [place], [address] Protein (U) [Mass/Vol] 25.1 mg/dL High 0.0-12.0 [facility] Comment on above: Order Comment: Order Date: 05/05/24 Order Info: [id number] - [facility] Order Info: [id number] - LIPID Performed By: #### L 506.1000, L502.0500, L100.0100, L500.4100, L501.9985, L500.4050, L503.0105, L509.1000 #### [facility] [address] [place], [address] UR CREAT 63.10 mg/dL Normal 28.00-217.00 [facility] Comment on above: Order Comment: Order Date: 05/05/24 Order Info: [id number] - CMP Order Info: [id number] - LIPID Performed By: #### L 506.1000, L502.0500, L100.0100, L500.4100, L501.9985, L500.4050, L503.0105, L509.1000 #### [facility] [address] [place], [address] RBC Auto (Bld) [#/Vol]Ordere d By: Dominique Lang on 09-16-2024 RBC (Bld) [#/Vol] 4.18 10*6/uL Low 4.2-5.4 [facility] Random urine creatinine chris urement (mass/volume)Ordered By: Dominique Lang on 09-16-2024 Creatinine Unsp time (U) [Mass/Vol] 63.10 mg/dL 28.00-217.00 [facility] Screening total cholesterol/ high density lipoprotein (HDL) cholesterol ratioOrdered By: Dominique Lang on 09-16-2024 Cholesterol.total/Cathy sterol in HDL [Mass ratio] 2.90 {ratio} [facility] Serum creatinine measurement (mass/volume)Ordered By: Dominique Lang on 09-16-2024 Creatinine [Mass/Vol] 0.86 mg/dL 0.70-1.20 [facility] Serum globulin measurementOr dered By: Dominique Lang on 09-16-2024 Globulin (S) [Mass/Vol] 3.4 g/dL 2.2-4.2 [facility] Serum glucose measurement (m ass/volume)Ordered By: Dominique Lang on 09-16-2024 Glucose [Mass/Vol] 115 mg/dL High 70-99 [facility] Serum or plasma alanine rico otransferase (ALT) measurementOrdered By: Dominique Lang on 09-16-2024 ALT [Catalytic activity/Vol] 16 U/L <35 [facility] Serum or plasma albumin chris urement (mass/volume)Ordered By: Dominique Lang on 09-16-2024 Albumin [Mass/Vol] 3.9 g/dL 3.4-4.8 [facility] Serum or plasma albumin/glob ulin mass ratioOrdered By: Dominique Lang on 09-16-2024 Albumin/Globulin [Mass ratio] 1.2 {ratio} 0.9-2.4 [facility] Serum or plasma alkaline mohamud sphatase measurementOrdered By: Dominique Lang on 09-16-2024 ALP [Catalytic activity/Vol] 111 U/L High 35-104 [facility] Serum or plasma calcium chris urement (mass/volume)Ordered By: Dominique Lang on 09-16-2024 Calcium [Mass/Vol] 9.6 mg/dL 7.6-11.0 [facility] Serum or plasma cholesterol in HDL measurement (mass/volume)Ordered By: Dominique Lang on 09-16-2024 Cholesterol in HDL [Mass/Vol] 47 mg/dL >40 [facility] Comment on above: National Cholesterol Education Program (NCEP) guidelines:<40 mg/dL: Low HDL-cholesterol (major risk factor for CHD)>= 60 mg/dL: High HDL-cholesterol (negative risk factor for CHD)HDL-cholesterol is affected by a number of factors, e.g. smoking, exercise, hormones, sex and age. Serum or plasma cholesterol measurement (mass/volume)Ordered By: Dominique Lang on 09-16-2024 Cholesterol [Mass/Vol] 137 mg/dL <201 [facility] Comment on above: Cholesterol level, D esirable <200 mg/dLBorderline high cholesterol 200-239 mg/dLHigh cholesterol >=240 mg/dLRecommendations of the NCEP Adult Treatment Panel for the following risk-cutoff thresholds for the [place] population. Serum or plasma urea nitroge n measurement (mass/volume)Ordered By: Dominique Lang on 09-16-2024 Urea nitrogen [Mass/Vol] 16 mg/dL 4-19 [facility] Sodium levelOrdered By: Dominique Lang on 09-16-2024 Sodium [Moles/Vol] 142 mmol/L 133-145 [facility] Squamous epithelial cells de tection in urine sediment by light microscopyOrdered By: Dominique Lang on 09-16-2024 Epithelial cells.squamous LM Ql (Urine sed) 0 SEEN /hpf 5-10 [facility] Total proteinOrdered By: Aren Lang on 09-16-2024 Protein [Mass/Vol] 7.3 g/dL 5.9-8.4 [facility] Triglycerides measurementOrd ered By: Dominique Lang on 09-16-2024 Triglyceride [Mass/Vol] 234 mg/dL High <199 [facility] Comment on above: The drugs N-Acetylcy steine and Metamizole may falsely depress this assay. Normal range: <150 mg/dLBorderline High: 150-199 mg/dLHigh: 200-499 mg/dLVery High: >500 mg/dL Urinalysis, Completeon 09-16 WBC 5-10 SEEN Normal 0-5 [facility] Comment on above: Order Comment: Order Date: 05/05/24 Order Info: [id number] - CMP Order Info: [id number] - LIPID Performed By: #### L 506.1000, L502.0500, L100.0100, L500.4100, L501.9985, L500.4050, L503.0105, L509.1000 #### [facility] [address] [place], [address] RBC 0-5 SEEN Normal 0-5 [facility] Comment on above: Order Comment: Order Date: 05/05/24 Order Info: [id number] - CMP Order Info: [id number] - LIPID Performed By: #### L 506.1000, L502.0500, L100.0100, L500.4100, L501.9985, L500.4050, L503.0105, L509.1000 #### [facility] [address] [place], [place], [id number] BACTERIA 0 SEEN Normal None Seen [facility] Comment on above: Order Comment: Order Date: 05/05/24 Order Info: [id number] - CMP Order Info: [id number] - LIPID Performed By: #### L 506.1000, L502.0500, L100.0100, L500.4100, L501.9985, L500.4050, L503.0105, L509.1000 #### [facility] [address] [place], [place], [address] EPI,SQUAMOUS 0 SEEN Normal 5-10 [facility] Comment on above: Order Comment: Order Date: 05/05/24 Order Info: [id number] - CMP Order Info: [id number] - LIPID Performed By: #### L 506.1000, L502.0500, L100.0100, L500.4100, L501.9985, L500.4050, L503.0105, L509.1000 #### [facility] [address] [place], [address] Mucus Ql (Urine sed) 0 SEEN Normal [facility] Comment on above: Order Comment: Order Date: 05/05/24 Order Info: [id number] - CMP Order Info: [id number] - LIPID Performed By: #### L 506.1000, L502.0500, L100.0100, L500.4100, L501.9985, L500.4050, L503.0105, L509.1000 #### [facility] [address] [place], [place], [address] Urine albumin measurement wi detection limit of 20 mg/L or less (mass/volume)Ordered By: Dominique Lang on 09-16-2024 Albumin DL <= 20 mg/L (U) [Mass/Vol] 133.0 mg/L NO RANGE EST. [facility] Urine clarityOrdered By: Aren Lang on 09-16-2024 Clarity (U) Clear Clear [facility] Urine color determinationOrd ered By: Dominique Lang on 09-16-2024 Color (U) Straw Yellow [facility] Urine glucose detectionOrder ed By: Dominique Lang on 09-16-2024 Glucose Ql (U) Normal mg/dl Normal [facility] Urine leukocyte esterase det ection by dipstickOrdered By: Dominique Lang on 09-16-2024 Leukocyte esterase Test strip Ql (U) 100 /ul High Negative [facility] Urine pHOrdered By: Dominique harrison on 09-16-2024 pH (U) 6.0 [pH] 5.0 - 8.0 [facility] Urine protein measurement (m ass/volume)Ordered By: Dominique Lang on 09-16-2024 Protein (U) [Mass/Vol] 25.1 mg/dL High 0.0-12.0 [facility] Urine protein/creatinine mas s ratioOrdered By: Dominique Lang on 09-16-2024 Protein/Creatinine (U) [Mass ratio] 398 mg/g CRE High 0-200 [facility] Urine sediment bacteria coun t by microscopy (number/high power field)Ordered By: Dominique Lang on 09-16-2024 Bacteria LM.HPF (Urine sed) [#/Area] 0 /[HPF] None Seen [facility] Urine specific gravity measu rementOrdered By: Dominique Lang on 09-16-2024 Specific gravity (U) [Rel density] 1.015 1.002-1.030 [facility] Urine urobilinogen measureme ntOrdered By: Dominique Lang on 09-16-2024 Urobilinogen Ql (U) Normal mg/dl Normal [facility] Vitamin D,25 Hydroxyon 09-16 Vitamin D 25-OH 67.0 ng/mL Normal 30-100 [facility] Comment on above: Order Comment: Order Date: 05/05/24 Order Info: [id number] - CMP Order Info: [id number] - LIPID Result Comment: Justyna min D Status Deficiency: <20 ng/mL (50nmol/L) Insufficiency: 20-30 ng/mL (50-75 nmol/L) Sufficiency: 30-100 ng/mL (75-250 nmol/L) Toxicity: >100 ng/mL (>250 nmol/L) Performed By: #### L 506.1000, L502.0500, L100.0100, L500.4100, L501.9985, L500.4050, L503.0105, L509.1000 #### [facility] [address], [address] White blood cell (WBC) count Ordered By: Dominique Lang on 09-16-2024 WBC (Bld) [#/Vol] 9.4 10*3/uL 4.4-11.0 [facility] White blood cell countOrdere d By: Dominique Lang on 09-16-2024 White blood cell count 5-10 SEEN /hpf 0-5 [facility] CT BRAIN WO IVCONon 08-25-19 CT BRAIN WO IVCON * * *Final Report* * * DATE OF EXAM: Aug 24 2024 4:07PM [facility] 0504 - CT BRAIN WO [...] intracranial abnormalities. Chronic changes, as detailed above. Iron Worker Apprentice: PSC Transcribe Date/Time: Aug 24 2024 4:17P Dictated by : BETSY RODRIGUEZ MD This examination was interpreted and the report reviewed and electronically signed by: BETSY RODRIGUEZ MD on Aug 24 2024 4:21PM EST [id number] Normal [facility] CT Head WO contraston 2024 IMPRESSION: Interval resolution of previously seen subdural hemorrhage along anterior-inferior falx. No current CT evidence of acute intracranial hemorrhage. No CT evidence of acute intracranial abnormalities. Chronic changes, as detailed above. Iron Worker Apprentice: PSCB Transcribe Date/Time: Aug 24 2024 4:17P Dictated by : BETSY RODRIGUEZ MD This examination was interpreted and the report reviewed and electronically signed by: BETSY RODRIGUEZ MD on Aug 24 2024 4:21PM EST [facility] * * *Final Report* * * DATE OF EXAM: Aug 24 2024 4:07PM [facility] 0504 - CT BRAIN WO [...] base and imaged soft tissues are unremarkable. [employer] [facility] Provider, [facility] - 08/24/2024 * * *Final Report* * * DATE OF EXAM: Aug 24 2024 4:07PM [facility] 0504 - CT BRAIN WO [...] intracranial abnormalities. Chronic changes, as detailed above. Iron Worker Apprentice: PSCB Transcribe Date/Time: Aug 24 2024 4:17P Dictated by : BETSY RODRIGUEZ MD This examination was interpreted and the report reviewed and electronically signed by: BETSY RODRIGUEZ MD on Aug 24 2024 4:21PM EST [facility] Radiology Study observation (narrative) [facility] CT Head WO contrastOrdered B y: [facility] Provider on 08-24-2024 [facility] NUTRITIONon 08-21-2024 NUTRITION HNO ID: [id number] Author: MINERVA WATSON RD Service: Nutrition Therapy [...] than 50% estimated energy needs (ONS use TAP BUILDER QD noted w/ 2 meals daily sttated) greater than or equal to 5 days Current Nutrition Intake: Less than 75% estimated energy needs Current Intake Over time: Greater than or equal to 5 days Dosing Weight: 45 kg (99 lb 3.3 oz) Dosing Weight Type: [place] body weight Estimated kilocalorie needs: 0500-9704 Calorie Calculation Method: 25-30 kcals/kg Estimated protein needs (grams): 46-54 Grams protein determined by: 1.0 - 1.2 g/kg Diet Orders (From admission, onward) Start Ordered 08/15/24 1415 DIET CARBOHYDRATE CONTROLLED START NOW Question Answer Comment Carbohydrate Control CONSISTENT CARBOHYDRATE Food Consistency DENTAL SOFT 08/15/24 1413 08/14/24 0915 DIET SUPPLEMENTS START NOW Question Answer Comment Supplement 1 BOOST [facility] STRAWBERRY Supplement 1 Frequency BREAKFAST Supplement 1 Frequency DINNER 08/14/24 0915 Anthropometrics: Height: 149.9 cm (4' 11) Weight: 57.2 kg (126 lb 1.7 oz) Usual Weight: 56.7 kg (125 lb) X1 YR captain assistant STATED Usual Weight Obtained From: Patient Body [...] DATE: August 21, 2024 TIME: 7:17 AM [facility] H[facility] [id number] Author: ALISON MAC APRN.CNP Service: Hospital Medicine Author Type: Nurse Practitioner Type: Discharge Summary Filed: 08/20/2024 12:06 Note Text: Attestation signed by Ian Arredondo MD at 08/21/2024 1:17 PM [facility] STAFF PHYSICIAN NOTE OF PERSONAL INVOLVEMENT IN [...] degree (HCC) (POA: Yes) Ian Arredondo MD, [facility] Staff,Dept of Hospital Medicine August 21, 2024 1:17 PM Pager:Click here to page DISCHARGE SUMMARY PATIENT NAME: Tamica Anderson ADMISSION DATE: 08/06/2024 DISCHARGE DATE: 08/21/24 ATTENDING PHYSICIAN: Ian Arredondo MD Code Status: Full Code PCP: Domniique Lang MD, MD Highest Readmission Risk Score: [...] (2001) HTN, HLD, T2DM, was admitted to [facility] after a traumatic fall. Patient fell while [...] due to TBI. PT and OT recommended care home facility, thus patient was transferred to [facility] for further rehab services. Progressed well with PT and OT. DC home with home healthcare. Follow up CT brain 08/24, plastic surgery 08/25, Neurosurgery 08/27, and PCP Dr. Lang. OPERATIONS/PROCEDURE DURING THIS HOSPITALIZATION: * No surgery found * CONSULTS DURING HOSPITALIZATION: Treatment Team: Attending Provider: Ian Arredondo MD Primary Service: Alison Mac APRN.CARMEN PATIENT CONDITION AT DISCHARGE: Stable DISCHARGE DISPOSITION: [...] Oral Suppl (more content not included)... Normal [facility] THERAPY NTon 08-20-2024 THERAPY NT HNO ID: [id number] Author: PAULETTE BUSBY OTR/L Service: Occupational Therapy Author Type: Occupational Therapist Type: Therapy (PT/OT/Speech/Resp) Filed: 08/20/2024 14:24 Note Text: Summary: OT discharge [facility]ational Therapy [facility] Treatment Summary and Discharge SERVICE DATE: 08/20/2024 SERVICE TIME: 1344 to 1421 ROOM: [place] [address] OT 6 Clicks Score: 21 DISCHARGE RECOMMENDATIONS [...] an 84 year old female presenting from [facility] as a transfer from [place] following fall on 08/01. CT/ XR show [...] Patient L (more content not included)... Normal [facility] THERAPY NT HNO ID: [id number] Author: VIKTORIYA WARNER PT Service: Physical Therapy Author Type: Physical Therapist Type: Therapy (PT/OT/Speech/Resp) Filed: 08/20/2024 12:44 Note Text: Summary: PT discharge note [facility] Therapy [facility] Treatment Summary SERVICE DATE: 08/20/2024 SERVICE TIME: 1125 to 1200 ROOM: [place] [address] PT 6 Clicks Score: 24 DISCHARGE RECOMMENDATIONS [...] an 84 year old female presenting from [facility] as a transfer from [place] following fall on 08/01. CT/ XR show [...] basement apartment) Assistance Available: Part-Time (son works time clock mechanic in [place]) Entry To Home: Stairs, With Rail Number [...] that she (more content not included)... Normal [facility] THERAPY NT HNO ID: [id number] Author: VIKTORIYA WARNER, PT Service: Physical Therapy Author Type: Physical Therapist Type: Therapy (PT/OT/Speech/Resp) Filed: 08/20/2024 11:22 Note Text: Summary: PT discharge recommendations PT Discharge Instructions The PT team at [facility] has this list of discharge instructions [...] PT please contact the PT team at [phone]. Viktoriya Warner PT Gauri Hernandez PT Anay Alvarez PT Jarred Joyce TAP BUILDER Manjinder Lees TAP BUILDER [facility] THERAPY NT HNO ID: [id number] Author: PAULETTE BUSBY OTR/Catherine Service: Occupational Therapy Author Type: Occupational Therapist Type: Therapy (PT/OT/Speech/Resp) Filed: 08/20/2024 10:29 Note Text: Summary: OT DC instructions OT Discharge Instructions The OT team at [facility] has this list of discharge instructions [...] OT please contact the OT team at [phone]. 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 She will take pt to her PCP appt on 08/26/24 and C visit on Saturday. SERVICE DATE: 08/19/2024 SERVICE TIME: 405pm Met pt to confirm dc date for 08/21/24 and janel Davalos [facility] to start service on Saturday08/24/24. Pt confirms this to be true and that her dtr made PCP appt for her. Pt has ride home with Shria mas at 130pm. Called son (saw his [...] 2024 TIME: 4:05 PM PAGER/CONTACT #: Madhu [facility] THERAPY NTon 08-19-2024 THERAPY NT HNO ID: [id number] Author: MAGALI BEAN OTR/Catherine Service: Occupational Therapy Author Type: Occupational Therapist Type: Therapy (PT/OT/Speech/Resp) Filed: 08/19/2024 11:51 Note Text: Occupational Therapy [facility] Treatment Summary SERVICE DATE: 08/19/2024 SERVICE TIME: 1104 to 1134 ROOM: [place] [address] OT 6 Clicks Score: 21 DISCHARGE RECOMMENDATIONS [...] an 84 year old female presenting from [facility] as a transfer from [place] following fall on 08/01. CT/ XR show [...] from skilled services to faciltiate return to [facility]. Relevant Past Medical History: HTN, DM2, and Hyperlipidemia HOME LIVING Patient Lives With: Family (son lives in basement apartment) Assistance Available: Part-Time (son works time clock mechanic in [place]) Entry To Home: Stairs, With Rail Number Of Stairs Into Home: 3 Number Of Stairs To Bed/Bath: 0 Tub/Shower Type: walk in shower Laundry: son can assist with Equipment Owned: Walker- Wheeled, Wheelchair- Manual, Pulse Ox, BP Monitor, Cane, Lift Chair (sle (more content not included)... Normal [facility] THERAPY NT HNO ID: [id number] Author: VIKTORIYA WARNER, PT Service: Physical Therapy Author Type: Physical Therapist Type: Therapy (PT/OT/Speech/Resp) Filed: 08/19/2024 11:17 Note Text: Physical Therapy [facility] Treatment Summary SERVICE DATE: 08/19/2024 SERVICE TIME: 1036 to 1104 ROOM: [place] [address] PT 6 Clicks Score: 23 DISCHARGE RECOMMENDATIONS [...] an 84 year old female presenting from [facility] as a transfer from [place] following fall on 08/01. CT/ XR show [...] from skilled services to faciltiate return to [facility]. Relevant Past Medical History: HTN, DM2, and Hyperlipidemia HOME LIVING Patient Lives With: Family (son lives in basement apartment) Assistance Available: Part-Time (son works time clock mechanic in [place]) Entry To Home: Stairs, With Rail Number [...] Weakness (g (more content not included)... Normal [facility] THERAPY NTon 08-18-2024 THERAPY NT HNO ID: [id number] Author: VICK MARTIN PTA Service: Physical Therapy Author Type: Brake Drum Molder Type: Therapy (PT/OT/Speech/Resp) Filed: 08/18/2024 15:29 Note Text: Attestation signed by Sanna Hernandez PT, DPT at 08/18/2024 4:02 PM I reviewed and agree with the documentation corresponding to this therapy visit. SIGNATURE: Sanna Hernandez PT DPT DATE: August 18, 2024 TIME: 4:02 PM [facility] Treatment Summary SERVICE DATE: 08/18/2024 SERVICE TIME: 1447 to 1520 ROOM: [place] [address] PT 6 Clicks Score: 23 DISCHARGE RECOMMENDATIONS [...] an 84 year old female presenting from [facility] as a transfer from [place] following fall on 08/01. CT/ XR show [...] basement apartment) Assistance Available: Part-Time (son works time clock mechanic in [place]) Entry To Home: Stairs, With Rail Number [...] Muscle Weakness (generalized) TREATMENT INTERVENTIONS Therapeutic Exercise (61772), Gait Training (54691) Timed Code Treatment (minutes): 33 Skilled Treatment Time (more content not included)... Normal [facility] THERAPY NT HNO ID: [id number] Author: MAGALI BEAN OTR/L Service: Occupational Therapy Author Type: Occupational Therapist Type: Therapy (PT/OT/Speech/Resp) Filed: 08/18/2024 15:06 Note Text: Occupational Therapy [facility] Treatment Summary SERVICE DATE: 08/18/2024 SERVICE TIME: 1332 to 1420 ROOM: [place] [address] OT 6 Clicks Score: 21 DISCHARGE RECOMMENDATIONS [...] Body Contact Guard Assistance, Additional Information to senior firewall engineer shower and wash BLE and redd area [...] an 84 year old female presenting from [facility] as a transfer from [place] following fall on 08/01. CT/ XR show [...] from skilled services to faciltiate return to [facility]. Relevant Past Medical History: HTN, DM2, and Hyperlipidemia HOME LIVING Patient Lives With: Family (son lives in basement apartment) Assistance Available: Part-Time (son works time clock mechanic in [place]) Entry To Home: Stairs, With Rail Number Of Stairs Into Home: 3 Number Of Stairs To Bed/Bath: 0 Tu (more content not included)... Normal [facility] THERAPY NT HNO ID: [id number] Author: VIKTORIYA WARNER, YIN Service: Physical Therapy Author Type: Brake Drum Molder Type: Therapy (PT/OT/Speech/Resp) Filed: 08/18/2024 15:17 Note Text: Attestation signed by Viktoriya Warner PT at 08/18/2024 3:17 PM I reviewed and agree with the documentation corresponding to this therapy visit. SIGNATURE: Viktoriya Warner PT DATE: August 18, 2024 TIME: 3:17 PM Summary: PT Insurance Update Physical Therapy [facility] Treatment Summary SERVICE DATE: 08/18/2024 SERVICE TIME: 1010 to 1051 ROOM: [place] [address] PT 6 Clicks Score: 23 DISCHARGE RECOMMENDATIONS [...] an 84 year old female presenting from [facility] as a transfer from [place] following fall on 08/01. CT/ XR show [...] from skilled services to faciltiate return to [facility]. Relevant Past Medical History: HTN, DM2, and Hyperlipidemia HOME LIVING Patient Lives With: Family (son lives in basement apartment) Assistance Available: Part-Time (son works time clock mechanic in [place]) Entry To Home: Stairs, With Rail Number [...] falling. Ambulate (more content not included)... Normal [facility] NURSING PROGon 06-02-2025 NURSING PROG HNO ID: [id number] Author: BRIAN JEONG LPN Service: Nursing Author Type: LICENSED NURSE Type: Nursing Progress Note Filed: 08/17/2024 11:42 Note Text: TAP BUILDER reported patient vomited during therapy session. Patient lying in bed in no apparent distress. Denies further nausea. States therapist had her close eyes and turn head which caused the emesis, I throw up easily. VS WNL. Normal [facility] THERAPY NTon 08-17-2024 THERAPY NT HNO ID: [id number] Author: ANAY ALVAREZ, PT Service: Physical Therapy Author Type: Brake Drum Molder Type: Therapy (PT/OT/Speech/Resp) Filed: 08/18/2024 08:01 Note Text: Attestation signed by Anay Alvarez, PT at 08/18/2024 8:01 AM I reviewed and agree with the documentation corresponding to this therapy visit. SIGNATURE: Anay Alvarez PT DATE: August 18, 2024 TIME: 8:01 AM Physical Therapy [facility] Treatment Summary SERVICE DATE: 08/17/2024 SERVICE TIME: 1431 to 1505 ROOM: [place] [address] PT 6 Clicks Score: 23 DISCHARGE RECOMMENDATIONS [...] an 84 year old female presenting from [facility] as a transfer from [place] following fall on 08/01. CT/ XR show [...] from skilled services to faciltiate return to [facility]. Relevant Past Medical History: HTN, DM2, and Hyperlipidemia HOME LIVING Patient Lives With: Family (son lives in basement apartment) Assistance Available: Part-Time (son works time clock mechanic in [employer]) Entry To Home: Stairs, With Rail Number [...] Muscle Weakness (generalized) TREATMENT INTERVENTIONS Therapeutic Exercise (38959), Gait Training (69955) Timed Code Treatment (minutes): 34 Skilled Treatment Time (minutes): 34 EXERCISE Exercises Exercise: Nustep seat 7 lvl 4 8 minutes (LE only), seated may (more content not included)... Normal [facility] THERAPY NT HNO ID: [id number] Author: ANAY ALVAREZ PT Service: Physical Therapy Author Type: Brake Drum Molder Type: Therapy (PT/OT/Speech/Resp) Filed: 08/18/2024 08:00 Note Text: Attestation signed by Anay Alvarez PT at 08/18/2024 8:00 AM I reviewed and agree with the documentation corresponding to this therapy visit. SIGNATURE: Anay Alvarez PT DATE: August 18, 2024 TIME: 8:00 AM Physical Therapy [facility] Treatment Summary SERVICE DATE: 08/17/2024 SERVICE TIME: 1038 to 1116 ROOM: [place] [address] PT 6 Clicks Score: 23 DISCHARGE RECOMMENDATIONS [...] with unilateral handrail while requiring CGA from TAP BUILDER for safety. Patient also completes serval standing [...] an 84 year old female presenting from [facility] as a transfer from [place] following fall on 08/01. CT/ XR show [...] from skilled services to faciltiate return to [facility]. Relevant Past Medical History: HTN, DM2, and Hyperlipidemia HOME LIVING Patient Lives With: Family (son lives in basement apartment) Assistance Available: Part-Time (son works time clock mechanic in [place]) Entry To Home: Stairs, With Rail Number [...] wheeled-walker b (more content not included)... Normal [facility] THERAPY NT HNO ID: [id number] Author: FIFI LEUNG, OT/L Service: ? Author Type: Occupational Therapist Type: Therapy (PT/OT/Speech/Resp) Filed: 08/17/2024 10:32 Note Text: Occupational Therapy [facility] Treatment Summary SERVICE DATE: 08/17/2024 SERVICE TIME: 924 to 1015 ROOM: [place] [address] OT 6 Clicks Score: 21 DISCHARGE RECOMMENDATIONS [...] an 84 year old female presenting from [facility] as a transfer from [place] following fall on 08/01. CT/ XR show [...] basement apartment) Assistance Available: Part-Time (son works time clock mechanic in [place]) Entry To Home: Stairs, With Rail Number [...] not driving (more content not included)... Normal [facility] THERAPY NTon 08-16-2024 THERAPY NT HNO ID: [id number] Author: MAGALI BEAN OTR/L Service: Occupational Therapy Author Type: Occupational Therapist Type: Therapy (PT/OT/Speech/Resp) Filed: 08/16/2024 14:46 Note Text: Occupational Therapy [facility] Treatment Summary SERVICE DATE: 08/16/2024 SERVICE TIME: 1340 to 1405 ROOM: [place] [address] OT 6 Clicks Score: 21 DISCHARGE RECOMMENDATIONS [...] questionable visual/attention deficits. Will continue with OT tx while here. Plan for Next Visit: Continue [...] an 84 year old female presenting from [facility] as a transfer from [place] following fall on 08/01. CT/ XR show [...] from skilled services to faciltiate return to [facility]. Relevant Past Medical History: HTN, DM2, and Hyperlipidemia HOME LIVING Patient Lives With: Family (son lives in basement apartment) Assistance Available: Part-Time (son works time clock mechanic in [employer]) Entry To Home: Stairs, With Rail Number [...] wheeled-walker but (more content not included)... Normal [facility] THERAPY NTon 08-15-2024 THERAPY NT HNO ID: [id number] Author: SANNA HERNANDEZ, PT, DPT Service: Physical Therapy Author Type: Physical Therapist Type: Therapy (PT/OT/Speech/Resp) Filed: 08/15/2024 10:51 Note Text: Physical Therapy [facility] Treatment Summary SERVICE DATE: 08/15/2024 SERVICE TIME: 1007 to 1048 ROOM: [place] [address] PT 6 Clicks Score: 23 DISCHARGE RECOMMENDATIONS [...] an 84 year old female presenting from [facility] as a transfer from [place] following fall on 08/01. CT/ XR show [...] from skilled services to faciltiate return to [facility]. Relevant Past Medical History: HTN, DM2, and Hyperlipidemia HOME LIVING Patient Lives With: Family (son lives in basement apartment) Assistance Available: Part-Time (son works time clock mechanic in [place]) Entry To Home: Stairs, With Rail Number [...] Muscle Weakness (generalized) TREATMENT INTERVENTIONS Therapeutic Exercise (20533), Gait Trainin (more content not included)... Normal [facility] NUTRITIONon 08-14-2024 NUTRITION HNO ID: [id number] Author: MINERVA WATSON RD Service: Nutrition Therapy [...] ONS to be changed per trial of [facility], tolerate diet Intake History: Current Nutrition Intake: Greater than 75% estimated energy needs Current Intake Over time: Greater than or equal to 5 days Dosing Weight: 45 kg (99 lb 3.3 oz) Dosing Weight Type: [place] body weight Estimated kilocalorie needs: 4258-1144 Calorie Calculation Method: 25-30 kcals/kg Estimated protein [...] August 14, 2024 TIME: 7:26 AM Normal [facility] THERAPY NTon 08-14-2024 THERAPY NT HNO ID: [id number] Author: MAGALI BEAN OTR/Catherine Service: Occupational Therapy Author Type: Occupational Therapist Type: Therapy (PT/OT/Speech/Resp) Filed: 08/14/2024 15:32 Note Text: Occupational Therapy [facility] Treatment Summary SERVICE DATE: 08/14/2024 SERVICE TIME: 1352 to 1423 ROOM: [place] [address] OT 6 Clicks Score: 21 DISCHARGE RECOMMENDATIONS [...] Information, Moderate Assistance pt attempted to use railcar switchman and sock aide to doff and don [...] an 84 year old female presenting from [facility] as a transfer from [place] following fall on 08/01. CT/ XR show [...] basement apartment) Assistance Available: Part-Time (son works time clock mechanic in [employer]) Entry To Home: Stairs, With Rail Number [...] she said (more content not included)... Normal [facility] THERAPY NT HNO ID: [id number] Author: ANAY ALVAREZ PT Service: Physical Therapy Author Type: Brake Drum Molder Type: Therapy (PT/OT/Speech/Resp) Filed: 08/14/2024 17:35 Note Text: Attestation signed by Anay Alvarez PT at 08/14/2024 5:35 PM I reviewed and agree with the documentation corresponding to this therapy visit. SIGNATURE: Anay Alvarze PT DATE: August 14, 2024 TIME: 5:35 PM Physical Therapy [facility] Treatment Summary SERVICE DATE: 08/14/2024 SERVICE TIME: 1420 to 1500 ROOM: [place] [address] PT 6 Clicks Score: 21 DISCHARGE RECOMMENDATIONS [...] an 84 year old female presenting from [facility] as a transfer from [place] following fall on 08/01. CT/ XR show [...] from skilled services to faciltiate return to [facility]. Relevant Past Medical History: HTN, DM2, and Hyperlipidemia HOME LIVING Patient Lives With: Family (son lives in basement apartment) Assistance Available: Part-Time (son works time clock mechanic in [employer]) Entry To Home: Stairs, With Rail Number [...] Muscle Weakness (generalized) TREATMENT INTERVENTIONS Therapeutic Exercise (96447), Therapeutic Activity (31153), Gait Training (08408) Timed Code Treatment (minutes): 40 Skilled Treatment Time (neeru (more content not included)... Normal [facility] THERAPY NT HNO ID: [id number] Author: ANAY ALVAREZ PT Service: Physical Therapy Author Type: Brake Drum Molder Type: Therapy (PT/OT/Speech/Resp) Filed: 08/14/2024 17:34 Note Text: Attestation signed by Anay Alvarez, PT at 08/14/2024 5:34 PM I reviewed and agree with the documentation corresponding to this therapy visit. SIGNATURE: Anay Alvarez, PT DATE: August 14, 2024 TIME: 5:34 PM Physical Therapy [facility] Treatment Summary SERVICE DATE: 08/14/2024 SERVICE TIME: 1145 to 1200 ROOM: [place] [address] PT 6 Clicks Score: 21 DISCHARGE RECOMMENDATIONS [...] an 84 year old female presenting from [facility] as a transfer from [place] following fall on 08/01. CT/ XR show [...] from skilled services to faciltiate return to [facility]. Relevant Past Medical History: HTN, DM2, and Hyperlipidemia HOME LIVING Patient Lives With: Family (son lives in basement apartment) Assistance Available: Part-Time (son works time clock mechanic in [place]) Entry To Home: Stairs, With Rail Number [...] Muscle Weakness (generalized) TREATMENT INTERVENTIONS Therapeutic Activity (76533), Gait Training (73249) Timed Code Treatment (minutes): 15 Skilled Treatment Time (minutes): 15 EXERCISE TRAINING AND EDUCATION PROVIDED Assistive Device Use, Exercise Program, Gait Pattern, (more content not included)... Normal [facility] THERAPY NTon 08-13-2024 THERAPY NT HNO ID: [id number] Author: ANAY ALVAREZ PT Service: Physical Therapy Author Type: Brake Drum Molder Type: Therapy (PT/OT/Speech/Resp) Filed: 08/13/2024 17:17 Note Text: Attestation signed by Anay Alvarez PT at 08/13/2024 5:17 PM I reviewed and agree with the documentation corresponding to this therapy visit. SIGNATURE: Anay Alvarez PT DATE: August 13, 2024 TIME: 5:17 PM Physical Therapy [facility] Treatment Summary SERVICE DATE: 08/13/2024 SERVICE TIME: 1529 to 1557 ROOM: [place] [address] PT 6 Clicks Score: 21 DISCHARGE RECOMMENDATIONS [...] an 84 year old female presenting from [facility] as a transfer from [place] following fall on 08/01. CT/ XR show [...] basement apartment) Assistance Available: Part-Time (son works time clock mechanic in [place]) Entry To Home: Stairs, With Rail Number [...] Weakness (gen (more content not included)... Normal [facility] THERAPY NT HNO ID: [id number] Author: PAULETTE BUSBY OTR/L Service: Occupational Therapy Author Type: Occupational Therapist Type: Therapy (PT/OT/Speech/Resp) Filed: 08/13/2024 13:44 Note Text: Occupational Therapy [facility] Treatment Summary SERVICE DATE: 08/13/2024 SERVICE TIME: 1259 to 1340 ROOM: [place] [address] OT 6 Clicks Score: 21 DISCHARGE RECOMMENDATIONS [...] an 84 year old female presenting from [facility] as a transfer from [place] following fall on 08/01. CT/ XR show [...] from skilled services to faciltiate return to [facility]. Relevant Past Medical History: HTN, DM2, and Hyperlipidemia HOME LIVING Patient Lives With: Family (son lives in basement apartment) Assistance Available: Part-Time (son works time clock mechanic in [place]) Entry To Home: Stairs, With Rail Number [...] Deficits: Mo (more content not included)... Normal [facility] THERAPY NT HNO ID: [id number] Author: VIKTORIYA WARNER PT Service: Physical Therapy Author Type: Brake Drum Molder Type: Therapy (PT/OT/Speech/Resp) Filed: 08/13/2024 12:26 Note Text: Attestation signed by Viktoriya Warner PT at 08/13/2024 12:26 PM I reviewed and agree with the documentation corresponding to this therapy visit. SIGNATURE: Viktoriya Warner PT DATE: August 13, 2024 TIME: 12:25 PM Physical Therapy [facility] Treatment Summary SERVICE DATE: 08/13/2024 SERVICE TIME: 1027 to 1107 ROOM: [place] [address] PT 6 Clicks Score: 21 DISCHARGE RECOMMENDATIONS [...] an 84 year old female presenting from [facility] as a transfer from [place] following fall on 08/01. CT/ XR show [...] from skilled services to faciltiate return to [facility]. Relevant Past Medical History: HTN, DM2, and Hyperlipidemia HOME LIVING Patient Lives With: Family (son lives in basement apartment) Assistance Available: Part-Time (son works time clock mechanic in [place]) Entry To Home: Stairs, With Rail Number [...] THERAPY D (more content not included)... Normal [facility] Basic metabolic 2000 panelon 08-12-2024 Anion gap [Moles/Vol] 12 mmol/L Normal 8-15 [facility] Comment on above: Order Comment: Patria mei Type: BLOOD SPECIMENOrdering Facility: [facility] Address: [address] [place] [address] Performed By: #### 2 4321-2 ####[facility] LABCLIA [id number] [place] [address] [place] Calcium [Mass/Vol] 9.6 mg/dL Normal 8.5-10.2 [facility] Comment on above: Order Comment: Patria mei Type: BLOOD SPECIMENOrdering Facility: [facility] Address: [address] [place] [id number] Performed By: #### 2 4321-2 ####[facility] LABCLIA [id number] [place] [address] [place] Chloride [Moles/Vol] 98 mmol/L Normal 98-107 [facility] Comment on above: Order Comment: Speci men Type: BLOOD SPECIMENOrdering Facility: [facility] Address: [address] [place] [address] Performed By: #### 2 4321-2 ####[facility] LABCLIA [id number] [place] [address] [facility] OF [place] CO2 [Moles/Vol] 32 mmol/L High 22-30 [facility] Comment on above: Order Comment: Speci men Type: BLOOD SPECIMENOrdering Facility: [facility] Address: [address] [place] [address] Performed By: #### 2 4321-2 ####[facility] LABCLIA [id number] [place] [address] [facility] Creatinine [Mass/Vol] 0.88 mg/dL Normal 0.58-0.96 [facility] Comment on above: Order Comment: Speci men Type: BLOOD SPECIMENOrdering Facility: [facility] Address: [address] [place] [address] Performed By: #### 2 4321-2 ####[facility] LABCLIA [id number] [place] [address] [facility] Creatinine and Glomerular filtration rate.predicted panel (S/P/Bld) 65 mL/min/1.73m??? Normal >=60 [facility] Comment on above: Order Comment: Speci men Type: BLOOD SPECIMENOrdering Facility: [facility] Address: [address] [place] [address] Result Comment: Venita mated Glomerular Filtration Rate [...] actual GFR. Performed By: #### 2 4321-2 ####[facility] LABCLIA [id number] [place] [address] [place] Glucose [Mass/Vol] 104 mg/dL High 74-99 [facility] Comment on above: Order Comment: Patria mei Type: BLOOD SPECIMENOrdering Facility: [facility] Address: [address] [place] [address] Result Comment: The [place] Diabetes Association (ADA) provides guidance for cutoff [...] Standards of Medical Care in Diabetes 2016, [place] [employer]. Diabetes Care. 2016.39(Suppl 1). Performed By: #### 2 4321-2 ####[facility] LABCLIA [id number] [place] [address] [place] Potassium [Moles/Vol] 3.8 mmol/L Normal 3.7-5.1 [facility] Comment on above: Order Comment: Patria mei Type: BLOOD SPECIMENOrdering Facility: [facility] Address: [address] [place] [address] Performed By: #### 2 4321-2 ####[facility] LABCLIA [id number] [place] [address] [place] Sodium [Moles/Vol] 142 mmol/L Normal 136-144 [facility] Comment on above: Order Comment: Patria mei Type: BLOOD SPECIMENOrdering Facility: [facility] Address: [address] [place] [address] Performed By: #### 2 4321-2 ####[facility] LABCLIA [id number] [place] [address] [place] Urea nitrogen [Mass/Vol] 15 mg/dL Normal 7-21 [facility] Comment on above: Order Comment: Speci men Type: BLOOD SPECIMENOrdering Facility: [facility] Address: [address] [place], [place] [address] Performed By: #### 2 4321-2 ####[facility] LABCLIA [id number] [place] [address] [facility] THERAPY NTon 08-12-2024 THERAPY NT HNO ID: [id number] Author: ANAY ALVAREZ, PT Service: Physical Therapy Author Type: Brake Drum Molder Type: Therapy (PT/OT/Speech/Resp) Filed: 08/12/2024 17:40 Note Text: Attestation signed by Anay Alvarez, PT at 08/12/2024 5:40 PM I reviewed and agree with the documentation corresponding to this therapy visit. SIGNATURE: Anay Alvarez PT DATE: August 12, 2024 TIME: 5:40 PM Physical Therapy [facility] Treatment Summary SERVICE DATE: 08/12/2024 SERVICE TIME: 1615 to 1700 ROOM: [place] [address] PT 6 Clicks Score: 21 DISCHARGE RECOMMENDATIONS [...] an 84 year old female presenting from [facility] as a transfer from [place] following fall on 08/01. CT/ XR show [...] from skilled services to faciltiate return to [facility]. Relevant Past Medical History: HTN, DM2, and Hyperlipidemia HOME LIVING Patient Lives With: Family (son lives in basement apartment) Assistance Available: Part-Time (son works time clock mechanic in [place]) Entry To Home: Stairs, With Rail Number [...] Muscle Weakness (generalized) TREATMENT INTERVENTIONS Therapeutic Activity (93660), Gait Training (07921), Neuromuscular Reeducation (71183) Timed Code Treatment (minutes): 45 Skilled Treatment Time (minutes): 45 EXERCISE Exe (more content not included)... Normal [facility] THERAPY NT HNO ID: [id number] Author: PAULETTE BUSBY OTR/L Service: Occupational Therapy Author Type: Snuff Blender Type: Therapy (PT/OT/Speech/Resp) Filed: 08/12/2024 15:27 Note Text: Attestation signed by Paulette Busby OTR/L at 08/12/2024 3:27 PM I reviewed and agree with the documentation corresponding to this therapy visit. SIGNATURE: DOMINIQUE Silva DATE: August 12, 2024 TIME: 3:27 PM 2 Occupational Therapy [facility] Treatment Summary SERVICE DATE: 08/12/2024 SERVICE TIME: 1302 to 1349 ROOM: [place] [address] OT 6 Clicks Score: 20 DISCHARGE RECOMMENDATIONS [...] an 84 year old female presenting from [facility] as a transfer from [place] following fall on 08/01. CT/ XR show [...] from skilled services to faciltiate return to [facility]. Relevant Past Medical History: HTN, DM2, and Hyperlipidemia HOME LIVING Patient Lives With: Family (son lives in basement apartment) Assistance Available: Part-Time (son works time clock mechanic in [place]) Entry To Home: Stairs, With Rail Number Of Stairs Into Home: 3 Number Of Stairs To Bed/Bath: 0 Tub/Shower Type: walk in shower Laundry: son can assist with Equipment Owned: Walker- Whee (more content not included)... Normal [facility] THERAPY NT HNO ID: [id number] Author: ANAY ALVAREZ, PT Service: Physical Therapy Author Type: Brake Drum Molder Type: Therapy (PT/OT/Speech/Resp) Filed: 08/12/2024 13:31 Note Text: Attestation signed by Anay Alvarez, PT at 08/12/2024 1:31 PM I reviewed and agree with the documentation corresponding to this therapy visit. SIGNATURE: Anay Alvarez, PT DATE: August 12, 2024 TIME: 1:31 PM Physical Therapy [facility] Treatment Summary SERVICE DATE: 08/12/2024 SERVICE TIME: 902 to 949 ROOM: [place] [address] PT 6 Clicks Score: 21 DISCHARGE RECOMMENDATIONS [...] an 84 year old female presenting from [facility] as a transfer from [place] following fall on 08/01. CT/ XR show [...] from skilled services to faciltiate return to [facility]. Relevant Past Medical History: HTN, DM2, and Hyperlipidemia HOME LIVING Patient Lives With: Family (son lives in basement apartment) Assistance Available: Part-Time (son works time clock mechanic in [place]) Entry To Home: Stairs, With Rail Number [...] Difficulty walking-musculoskeleta l TREATMENT INTERVENTIONS Therapeutic Exercise (25868), Therapeutic Activity (60941), Gait Training (32405) Timed Code Treatment (minutes): 44 Skilled Treatment Time (minutes): 47 EXERCISE E (more content not included)... Normal [facility] THERAPY NTon 08-11-2024 THERAPY NT HNO ID: [id number] Author: SARAH ENGLISH CCC-PLATE FORMER Service: Speech/Swallow Author Type: Speech Language Pathologist Type: Therapy (PT/OT/Speech/Resp) Filed: 08/13/2024 18:14 Note Text: Summary: Speech evaluation Speech Therapy SERVICE DATE: 08/11/2024 SERVICE TIME: 2028 to 2099 ROOM: [address] Functional communication without limitations in: Cognition [...] Cognitive-Communicatio n Deficits TREATMENT INTERVENTIONS Speech Language Evandrea (88265) Skilled Treatment Time (minutes): 31 TRAINING AND [...] Recommendations Discussed With: Patient SIGNATURE: Sarah English CCC-PLATE FORMER PATIENT NAME: Tamica Anderson DATE: August 11, 2024 TIME: 8:38 PM Normal [facility] THERAPY NT HNO ID: [id number] Author: ANAY ALVAREZ PT Service: Physical Therapy Author Type: Brake Drum Molder Type: Therapy (PT/OT/Speech/Resp) Filed: 08/11/2024 16:20 Note Text: Attestation signed by Anay Alvarez PT at 08/11/2024 4:20 PM I reviewed and agree with the documentation corresponding to this therapy visit. SIGNATURE: Anay Alvarez, PT DATE: August 11, 2024 TIME: 4:20 PM [facility] Treatment Summary SERVICE DATE: 08/11/2024 SERVICE TIME: 1410 to 1435 ROOM: [place] [address] PT 6 Clicks Score: 20 DISCHARGE RECOMMENDATIONS [...] an 84 year old female presenting from [facility] as a transfer from [place] following fall on 08/01. CT/ XR show [...] from skilled services to faciltiate return to [facility]. Relevant Past Medical History: HTN, DM2, and Hyperlipidemia HOME LIVING Patient Lives With: Family (son lives in basement apartment) Assistance Available: Part-Time (son works time clock mechanic in [place]) Entry To Home: Stairs, With Rail Number [...] Difficulty walking-musculoskeleta l TREATMENT INTERVENTIONS Therapeutic Exercise (26486), Therapeutic Activity (95713), Gait Training (59746) Timed Code Treatment (minutes): 25 Skilled Treatment Time (minutes): 25 EXERCISE Exercises Exercise: supine and seated ex. glut,guad, AP, HS KARIE HS (more content not included)... Normal [facility] THERAPY NT HNO ID: [id number] Author: SANNA HERNANDEZ, PT, DPT Service: Physical Therapy Author Type: Physical Therapist Type: Therapy (PT/OT/Speech/Resp) Filed: 08/11/2024 09:36 Note Text: Physical Therapy [facility] Treatment Summary SERVICE DATE: 08/11/2024 SERVICE TIME: 851 ROOM: [place] [address] PT 6 Clicks Score: 20 DISCHARGE RECOMMENDATIONS [...] an 84 year old female presenting from [facility] as a transfer from [place] following fall on 08/01. CT/ XR show [...] from skilled services to faciltiate return to [facility]. Relevant Past Medical History: HTN, DM2, and Hyperlipidemia HOME LIVING Patient Lives With: Family (son lives in basement apartment) Assistance Available: Part-Time (son works time clock mechanic in [place]) Entry To Home: Stairs, With Rail Number [...] Difficulty walking-musculoskeleta l TREATMENT INTERVENTIONS Therapeutic Exercise (32417), Gait Training (77068) Timed Code Treatment (minutes): 39 Skilled Treatment Time (minutes): 39 EXERCISE Exercises Exercise: blocked practice sit<>Stand transfers completed from w/c, CGA from therapist 1x5 with cues for eccentric control during sitting. patient com (more content not included)... Normal [facility] Basic metabolic 2000 panelon 08-10-2024 Anion gap [Moles/Vol] 11 mmol/L Normal 8-15 [facility] Comment on above: Order Comment: Speci men Type: BLOOD SPECIMENOrdering Facility: [facility] Address: [address] [place] [address] Performed By: #### 2 4321-2 ####[facility] LABCLIA [id number] [place] [address] [place] Calcium [Mass/Vol] 9.5 mg/dL Normal 8.5-10.2 [facility] Comment on above: Order Comment: Speci men Type: BLOOD SPECIMENOrdering Facility: [facility] Address: [address] [place] [address] Performed By: #### 2 4321-2 ####[facility] LABCLIA [id number] [place] [address] [place] Chloride [Moles/Vol] 101 mmol/L Normal 98-107 [facility] Comment on above: Order Comment: Speci men Type: BLOOD SPECIMENOrdering Facility: [facility] Address: [address] [place] [address] Performed By: #### 2 4321-2 ####[facility] LABCLIA [id number] [place] [address] [place] CO2 [Moles/Vol] 31 mmol/L High 22-30 [facility] Comment on above: Order Comment: Speci men Type: BLOOD SPECIMENOrdering Facility: [facility] Address: [address] [place] [address] Performed By: #### 2 4321-2 ####[facility] LABCLIA [id number] [place] [address] [place] Creatinine [Mass/Vol] 0.76 mg/dL Normal 0.58-0.96 [facility] Comment on above: Order Comment: Speci men Type: BLOOD SPECIMENOrdering Facility: [facility] Address: [address] [place] [address] Performed By: #### 2 4321-2 ####[facility] LABCLIA [id number] [place] [address] [place] [facility] Creatinine and Glomerular filtration rate.predicted panel (S/P/Bld) 78 mL/min/1.73m??? Normal >=60 [facility] Comment on above: Order Comment: Speci men Type: BLOOD SPECIMENOrdering Facility: [facility] Address: [address] [place] [address] Result Comment: Venita mated Glomerular Filtration Rate [...] actual GFR. Performed By: #### 2 4321-2 ####[facility] LABCLIA [id number] [place] [address] [place] Glucose [Mass/Vol] 115 mg/dL High 74-99 [facility] Comment on above: Order Comment: Speci men Type: BLOOD SPECIMENOrdering Facility: [facility] Address: [address] [place] [address] Result Comment: The [place] Diabetes Association (ADA) provides guidance for cutoff [...] Standards of Medical Care in Diabetes 2016, [place] [employer] Association. Diabetes Care. 2016.39(Suppl 1). Performed By: #### 2 4321-2 ####[facility] LABCLIA [id number] [place] [address] [place] Potassium [Moles/Vol] 3.2 mmol/L Low 3.7-5.1 [facility] Comment on above: Order Comment: Patria mei Type: BLOOD SPECIMENOrdering Facility: [facility] Address: [address] [place] [address] Performed By: #### 2 4321-2 ####[facility] LABCLIA [id number] [place] [address] [place] Sodium [Moles/Vol] 143 mmol/L Normal 136-144 [facility] Comment on above: Order Comment: Patria mei Type: BLOOD SPECIMENOrdering Facility: [facility] Address: [address] [place] [address] Performed By: #### 2 4321-2 ####[facility] LABCLIA [id number] [place] [address] [place] Urea nitrogen [Mass/Vol] 20 mg/dL Normal 7-21 [facility] Comment on above: Order Comment: Patria mei Type: BLOOD SPECIMENOrdering Facility: [facility] Address: [address] [place] [address] Performed By: #### 2 4321-2 ####[facility] LABCLIA [id number] [place] [address] [place] CBC panel Auto (Bld)on 08-10 Erythrocyte distribution width (RBC) [Ratio] 13.3 % Normal 11.5-15.0 [facility] Comment on above: Order Comment: Speci men Type: BLOOD SPECIMENOrdering Facility: [facility] Address: [address] [place] [address] Performed By: #### 5 8410-2 ####[facility] LABCLIA [id number] [place] [address] [facility] Hematocrit (Bld) [Volume fraction] 35.5 % Low 36.0-46.0 [facility] Comment on above: Order Comment: Speci men Type: BLOOD SPECIMENOrdering Facility: [facility] Address: [address] [place] [address] Performed By: #### 5 8410-2 ####[facility] LABCLIA [id number] [place] [address] [place] Hemoglobin (Bld) [Mass/Vol] 11.4 g/dL Low 11.5-15.5 [facility] Comment on above: Order Comment: Speci men Type: BLOOD SPECIMENOrdering Facility: [facility] Address: [address] [place] [address] Performed By: #### 5 8410-2 ####[facility] LABCLIA [id number] [place] [address] [place] MCH (RBC) [Entitic mass] 30.1 pg Normal 26.0-34.0 [facility] Comment on above: Order Comment: Speci men Type: BLOOD SPECIMENOrdering Facility: [facility] Address: [address] [place] [address] Performed By: #### 5 8410-2 ####[facility] LABCLIA [id number] [place] [address] [place] MCHC (RBC) [Mass/Vol] 32.1 g/dL Normal 30.5-36.0 [facility] Comment on above: Order Comment: Speci men Type: BLOOD SPECIMENOrdering Facility: [facility] Address: [address] [place] [address] Performed By: #### 5 8410-2 ####[facility] LABCLIA [id number] [facility] [place] [address] [place] MCV (RBC) [Entitic vol] 93.7 fL Normal 80.0-100.0 [facility] Comment on above: Order Comment: Speci men Type: BLOOD SPECIMENOrdering Facility: [facility] Address: [address] [place] [address] Performed By: #### 5 8410-2 ####[facility] LABCLIA [id number] [place] [place] [address] [place] Platelet mean volume (Bld) [Entitic vol] 9.6 fL Normal 9.0-12.7 [facility] Comment on above: Order Comment: Speci men Type: BLOOD SPECIMENOrdering Facility: [facility] Address: [address] [place] [address] Performed By: #### 5 8410-2 ####[facility] LABCLIA [id number] [place] [address] [place] Platelets (Bld) [#/Vol] 215 10*3/uL Normal 150-400 [facility] Comment on above: Order Comment: Speci men Type: BLOOD SPECIMENOrdering Facility: [facility] Address: [address] [place] [address] Performed By: #### 5 8410-2 ####[facility] LABCLIA [id number] [place] [address] [place] RBC (Bld) [#/Vol] 3.79 10*6/uL Low 3.90-5.20 [facility] Comment on above: Order Comment: Speci men Type: BLOOD SPECIMENOrdering Facility: [facility] Address: [address] [place] [address] Performed By: #### 5 8410-2 ####[facility] LABCLIA [id number] [place] [address] [place] WBC (Bld) [#/Vol] 7.48 10*3/uL Normal 3.70-11.00 [facility] Comment on above: Order Comment: Speci men Type: BLOOD SPECIMENOrdering Facility: [facility] Address: [address] [place], [place] [address] Performed By: #### 5 8410-2 ####[facility] LABCLIA [id number] [place] [address] [facility] THERAPY NTon 08-10-2024 THERAPY NT HNO ID: [id number] Author: PAULETTE BUSBY, OTR/L Service: Occupational Therapy Author Type: Occupational Therapist Type: Therapy (PT/OT/Speech/Resp) Filed: 08/10/2024 14:28 Note Text: Occupational Therapy [facility] Treatment Summary SERVICE DATE: 08/10/2024 SERVICE TIME: 1328 to 1423 ROOM: [place] [address] OT 6 Clicks Score: 18 DISCHARGE RECOMMENDATIONS [...] an 84 year old female presenting from [facility] as a transfer from [place] following fall on 08/01. CT/ XR show [...] from skilled services to faciltiate return to [facility]. Relevant Past Medical History: HTN, DM2, and Hyperlipidemia HOME LIVING Patient Lives With: Family (son lives in basement apartment) Assistance Available: Part-Time (son works time clock mechanic in [place]) Entry To Home: Stairs, With Rail Number [...] Cognition: Orien (more content not included)... Normal [facility] THERAPY NT HNO ID: [id number] Author: ANAY ALVAREZ PT Service: Physical Therapy Author Type: Brake Drum Molder Type: Therapy (PT/OT/Speech/Resp) Filed: 08/11/2024 16:18 Note Text: Attestation signed by Anay Alvarez PT at 08/11/2024 4:18 PM I reviewed and agree with the documentation corresponding to this therapy visit. SIGNATURE: Anay Alvarez PT DATE: August 11, 2024 TIME: 4:18 PM Physical Therapy [facility] Treatment Summary SERVICE DATE: 08/10/2024 SERVICE TIME: 0800 to 0855 ROOM: [place] [address] PT 6 Clicks Score: 20 DISCHARGE RECOMMENDATIONS [...] an 84 year old female presenting from [facility] as a transfer from [place] following fall on 08/01. CT/ XR show [...] from skilled services to faciltiate return to [facility]. Relevant Past Medical History: HTN, DM2, and Hyperlipidemia HOME LIVING Patient Lives With: Family (son lives in basement apartment) Assistance Available: Part-Time (son works time clock mechanic in [place]) Entry To Home: Stairs, With Rail Number [...] Difficulty walking-musculoskeleta l TREATMENT INTERVENTIONS Therapeutic Exercise (41166), Therapeutic Activity (59987), Ga (more content not included)... Normal [facility] THERAPY NTon 08-09-2024 THERAPY NT HNO ID: [id number] Author: ANAY ALVAREZ, PT Service: Physical Therapy Author Type: Physical Therapist Type: Therapy (PT/OT/Speech/Resp) Filed: 08/09/2024 12:53 Note Text: Physical Therapy [facility] Treatment Summary SERVICE DATE: 08/09/2024 SERVICE TIME: 1133 to 1215 ROOM: [place] [address] PT 6 Clicks Score: 19 DISCHARGE RECOMMENDATIONS [...] an 84 year old female presenting from [facility] as a transfer from [place] following fall on 08/01. CT/ XR show [...] from skilled services to faciltiate return to [facility]. Relevant Past Medical History: HTN, DM2, and Hyperlipidemia HOME LIVING Patient Lives With: Family (son lives in basement apartment) Assistance Available: Part-Time (son works time clock mechanic in [place]) Entry To Home: Stairs, With Rail Number [...] Difficulty walking-musculoskeleta l TREATMENT INTERVENTIONS Gait Training (05034), Neuromuscular Reeducation (90073), Therapeutic Activity (11032) Timed Code Treatment (minutes): 40 Skilled Treatment Time (minutes): 40 EXERCISE Exercises Exercise: standing balance ex with neutral stance posture, arm swings, hands to shoulders, hands to head, head and trunk turns and modified x1 viewing all without UE support with shoes on. TRAINING AND E (more content not included)... Normal [facility] THERAPY NTon 08-08-2024 THERAPY NT HNO ID: [id number] Author: LIGIA MOONEY PTA Service: Physical Therapy Author Type: Brake Drum Molder Type: Therapy (PT/OT/Speech/Resp) Filed: 08/08/2024 12:40 Note Text: Attestation signed by Viktoriya Warner PT at 08/08/2024 2:17 PM I reviewed and agree with the documentation corresponding to this therapy visit. SIGNATURE: Viktoriya Warner PT DATE: August 08, 2024 TIME: 2:17 PM Physical Therapy [facility] Treatment Summary SERVICE DATE: 08/08/2024 SERVICE TIME: 1128 to 1155 ROOM: [place] [address] PT 6 Clicks Score: 15 DISCHARGE RECOMMENDATIONS [...] an 84 year old female presenting from [facility] as a transfer from [place] following fall on 08/01. CT/ XR show [...] from skilled services to faciltiate return to [facility]. Relevant Past Medical History: HTN, DM2, and Hyperlipidemia HOME LIVING Patient Lives With: Family (son lives in basement apartment) Assistance Available: Part-Time (son works time clock mechanic in [place]) Entry To Home: Stairs, With Rail Number [...] Difficulty walking-musculoskeleta l TREATMENT INTERVENTIONS Therapeutic Activity (31735), Therapeutic Exercise (31553), Gait Training (81208) Timed Code Treatment (minutes): 27 Skilled Treatment Time (minutes): 27 EXER (more content not included)... Normal [facility] ALLIED HEALTHon 08-07-2024 ALLIED HEALTH HNO ID: [id number] Author: MICHELLE BARILLAS Chaplain Service: Spiritual Care Author Type: Steward/Stewardess Third Class Type: Allied Health Filed: 08/07/2024 09:19 Note Text: SPIRITUAL CARE PROGRESS NOTE SERVICE DATE: 08/07/2024 SERVICE TIME: 9:10am Steward/Stewardess Third Class attempted to call and offer emotional support; there was no answer To contact the Spiritual Care Department: Please call [phone]. SIGNATURE: Chaplain Surekha PATIENT NAME: Tamica Anderson DATE: August 07, 2024 TIME: 9:18 AM PAGER/CONTACT #: [phone] [address] [facility] HISTORY PHYSICALon HISTORY PHYSICAL HNO ID: [id number] Author: ALEKSEY MORE MD Service: Hospital Medicine Author Type: Nurse Practitioner Type: H&P Filed: 08/14/2024 22:48 Note Text: Attestation signed by Aleksey More MD at 08/14/2024 10:48 PM Attending Note I have personally reviewed the PA/SILK SCREEN PAINTER note. Agree with above assessment and plan. Other additions or changes: None SIGNATURE: Aleksey More MD DATE: August 14, 2024 TIME: 10:48 PM DEPARTMENT OF HOSPITAL MEDICINE HISTORY AND PHYSICAL EXAM SERVICE DATE: 08/07/2024 SERVICE TIME: 10:15 AM Primary Care Physician: Dominique Lang MD, MD NIGHT AND WEEKEND COVERAGE: [facility] Medicine KARL 7 AM - 7 PM - Please use [employer] [address] for overnight issues Subjective CHIEF COMPLAINT: aftercare HPI: This is a 84 year old female PMH of recurrent falls, CAD s/p PCI w/stents(2001) on ASA, CABG (2001) HTN, HLD, T2DM, who presents to [facility] following an admission at [facility] after a traumatic fall. Patient fell while using her walker her head hit the floor was admitted to [facility] for trauma evaluation due to findings of [...] due to TBI. PT and OT recommended care home facility it is noted that the patient has had several falls in the last year. Patient admitted to [facility] for further care. PAST MEDICAL HISTORY [...] or inconti (more content not included)... Normal [facility] NURSING PROGon 08-07-2024 NURSING PROG HNO ID: [id number] Author: BRIAN JEONG LPN Service: Nursing Author Type: LICENSED NURSE Type: Nursing Progress Note Filed: 08/07/2024 12:19 Note Text: Call to son Derrick, confirmed family will provide eye drops. Cyclosporine will be brought in this afternoon. Son inquiring about ST evaluation for advancement of diet and nutritional supplement. Normal [facility] NUTRITIONon 08-07-2024 NUTRITION HNO ID: [id number] Author: MINERVA WATSON RD Service: Nutrition Therapy [...] than 50% estimated energy needs (ONS use TAP BUILDER QD noted w/ 2 meals daily sttated) greater than or equal to 5 days Current Nutrition Intake: Greater than 75% estimated energy needs (x1 meal, dislikes purre upper denture ill fitting r/t swollen gums denies pain or dysphagia s/s) Dosing Weight: 45 kg (99 lb 3.3 oz) Dosing Weight Type: [place] body weight Estimated kilocalorie needs: 4637-0766 Calorie Calculation Method: 25-30 kcals/kg Estimated protein [...] Weight: 56.7 kg (125 lb) X1 YR captain assistant STATED Usual Weight Obtained From: Patient Body [...] August 07, 2024 TIME: 7:34 AM Normal [facility] THERAPY NTon 08-07-2024 THERAPY NT HNO ID: [id number] Author: FIFI LEUNG OT/Catherine Service: ? Author Type: Occupational Therapist Type: Therapy (PT/OT/Speech/Resp) Filed: 08/07/2024 14:20 Note Text: Occupational Therapy [facility] Evaluation Summary SERVICE DATE: 08/07/2024 SERVICE TIME: 1321 to 1350 ROOM: [place] [address] OT 6 Clicks Score: 17 DISCHARGE RECOMMENDATIONS [...] an 84 year old female presenting from [facility] as a transfer from [place] following fall on 08/01. CT/ XR show [...] from skilled services to faciltiate return to [facility]. Relevant Past Medical History: HTN, DM2, and Hyperlipidemia HOME LIVING Patient Lives With: Family (son lives in basement apartment) Assistance Available: Part-Time (son works time clock mechanic in [place]) Entry To Home: Stairs, With Rail Number [...] Judgement, P (more content not included)... Normal [facility] THERAPY NT HNO ID: [id number] Author: VIKTORIYA WARNER PT Service: Physical Therapy Author Type: Physical Therapist Type: Therapy (PT/OT/Speech/Resp) Filed: 08/07/2024 08:45 Note Text: Summary: PT evaluation note Physical Therapy [facility] Evaluation Summary SERVICE DATE: 08/07/2024 SERVICE TIME: 748 ROOM: [place] [address] PT 6 Clicks Score: 15 DISCHARGE RECOMMENDATIONS [...] an 84 year old female presenting to [facility] s/p hospitalization at [facility] for SDH/ nasal fractures with nonoperative management. At this time, review of precautions with patient, with patient able to perform all mobility with min A this date. Some noted deficits in proprioception/ bodily awareness, though patient was tired, so we will continue to assess. Patient's main concern throughout eval is inability to eat solid food and fit her dentures- notified sorter packer and will notify PLATE FORMER. Recommend 2 weeks of skilled services to facilitate return to [facility] as able with potential initial / supervision from son. Plan for Next Visit: [...] an 84 year old female presenting from [facility] as a transfer from [place] following fall on 08/01. CT/ XR show [...] from skilled services to faciltiate return to [facility]. Relevant Past Medical History: HTN, DM2, and Hyperlipidemia HOME LIVING Patient Lives With: Family (son lives in basement apartment) Assistance Available: Part-Time (son works time clock mechanic in [employer]) Entry To Home: Stairs, With Rail Number Of Stairs Into Home: 3 Number Of Stairs To Bed/Bath: 0 Tub/Shower Type: walk in shower Laundry: son can assist with Equipment Owned: Walker- Wheeled, Whee (more content not included)... [facility] ALLIED HEALTHon 08-06-2024 ALLIED HEALTH HNO ID: [id number] Author: BRYCE YEE Chaplain Service: ? Author Type: Steward/Stewardess Third Class Type: Allied Health Filed: 08/06/2024 16:02 Note Text: SPIRITUAL CARE PROGRESS NOTE SERVICE DATE: 08/06/2024 SERVICE TIME: 3:45 PM triaged referral for emotional support with unit staff who requested a telehealth visit tomorrow morning (08/07). This short story writer forwarded request appropriately. Department remains available for further care and consultation. To contact the Spiritual Care Department: Please call [phone]. SIGNATURE: Chaplain Aren PATIENT NAME: Tamica Anderson DATE: August 06, 2024 TIME: 4:00 PM PAGER/CONTACT #: [phone] [facility] HNO ID: [id number] Author: SOPHIE GUALLPA RT(R) Service: Radiology Author Type: Body And Frame Man Type: Allied Health Filed: 08/06/2024 08:31 Note Text: Radiology Service Progress Note PATIENT NAME: Tamica Andersno DATE OF SERVICE: August 06, 2024 TIME: [...] PATIENT PRESENTS WITH AN IMPLANTABLE OR ATTACHED COMPENSATION ADJUSTER: No RADIOLOGY DEPARTMENT: CT; Exam(s) Completed: Brain PERIPHERAL IV DATA: Not applicable SIGNED BY: RT Ruben(R) August 06, 2024 8:31 AM Normal [facility] Basic metabolic 2000 panelon 08-06-2024 Anion gap [Moles/Vol] 14 mmol/L Normal 8-15 [facility] Comment on above: Order Comment: Speci hamida Type: BLOOD SPECIMENOrdering Facility: [facility] Address: [address] [place] [address] Performed By: #### 2 4321-2 ####[facility] LABORATORYCLIA [id number] [place] [address] [place] Calcium [Mass/Vol] 9.0 mg/dL Normal 8.5-10.2 [facility] Comment on above: Order Comment: Patria mei Type: BLOOD SPECIMENOrdering Facility: [facility] Address: [address] [place] [address] Performed By: #### 2 4321-2 ####[facility] LABORATORYCLIA [id number] [place] [address] [place] Chloride [Moles/Vol] 99 mmol/L Normal 98-107 [facility] Comment on above: Order Comment: Patria mei Type: BLOOD SPECIMENOrdering Facility: [facility] Address: [address] [place] [address] Performed By: #### 2 4321-2 ####[facility] LABORATORYCLIA [id number] [place] [address] [place] CO2 [Moles/Vol] 29 mmol/L Normal 22-30 [facility] Comment on above: Order Comment: Speci hamida Type: BLOOD SPECIMENOrdering Facility: [facility] Address: [address] [place] [address] Performed By: #### 2 4321-2 ####[facility] [id number] [address] [place] Creatinine [Mass/Vol] 0.71 mg/dL Normal 0.58-0.96 [facility] Comment on above: Order Comment: Speci men Type: BLOOD SPECIMENOrdering Facility: [facility] Address: [address] [place] [address] Performed By: #### 2 4321-2 ####[facility] [id number] [address] Creatinine and Glomerular filtration rate.predicted panel (S/P/Bld) 84 mL/min/1.73m??? Normal >=60 [facility] Comment on above: Order Comment: Speci men Type: BLOOD SPECIMENOrdering Facility: [facility] Address: [address] [place] [address] Result Comment: Venita mated Glomerular Filtration Rate [...] actual GFR. Performed By: #### 2 4321-2 ####[facility] LABORATORYCLIA [id number] [address] [place] Glucose [Mass/Vol] 101 mg/dL High 74-99 [facility] Comment on above: Order Comment: Filipei hamida Type: BLOOD SPECIMENOrdering Facility: [facility] Address: [address] [place] [address] Result Comment: The [place] Diabetes Association (ADA) provides guidance for cutoff [...] Standards of Medical Care in Diabetes 2016, [place] [employer]. Diabetes Care. 2016.39(Suppl 1). Performed By: #### 2 4321-2 ####[facility] LABORATORYCLIA [id number] [address] STATES OF [facility] Potassium [Moles/Vol] 3.2 mmol/L Low 3.7-5.1 [facility] Comment on above: Order Comment: Patria mei Type: BLOOD SPECIMENOrdering Facility: [facility] Address: [address] [place] [address] Performed By: #### 2 4321-2 ####[facility] [id number] [address] Sodium [Moles/Vol] 142 mmol/L Normal 136-144 [facility] Comment on above: Order Comment: Patria mei Type: BLOOD SPECIMENOrdering Facility: [facility] Address: [address] [place] [address] Performed By: #### 2 4321-2 ####[facility] LABORATORYCLIA [id number] [address] Urea nitrogen [Mass/Vol] 21 mg/dL Normal 7-21 [facility] Comment on above: Order Comment: Patria mei Type: BLOOD SPECIMENOrdering Facility: [facility] Address: [address] [place] [address] Performed By: #### 2 4321-2 ####[facility] LABORATORYCLIA [id number] [address] CBC panel Auto (Bld)on 08-06 Erythrocyte distribution width (RBC) [Ratio] 13.1 % Normal 11.5-15.0 [facility] Comment on above: Order Comment: Speci men Type: BLOOD SPECIMENOrdering Facility: [facility] Address: [address] [place] [address] Performed By: #### 5 8410-2 ####[facility] LABORATORYCLIA [id number] [address] OF [facility] Hematocrit (Bld) [Volume fraction] 34.4 % Low 36.0-46.0 [facility] Comment on above: Order Comment: Speci men Type: BLOOD SPECIMENOrdering Facility: [facility] Address: [address] [place] [address] Performed By: #### 5 8410-2 ####[facility] LABORATORYCLIA [id number] [address] OF [facility] Hemoglobin (Bld) [Mass/Vol] 11.2 g/dL Low 11.5-15.5 [facility] Comment on above: Order Comment: Speci men Type: BLOOD SPECIMENOrdering Facility: [facility] Address: [address] [place] [address] Performed By: #### 5 8410-2 ####[facility] LABORATORYCLIA [id number] [address] MCH (RBC) [Entitic mass] 29.9 pg Normal 26.0-34.0 [facility] Comment on above: Order Comment: Speci men Type: BLOOD SPECIMENOrdering Facility: [facility] Address: [address] [place] [address] Performed By: #### 5 8410-2 ####[facility] LABORATORYCLIA [id number] [address] [place] MCHC (RBC) [Mass/Vol] 32.6 g/dL Normal 30.5-36.0 [facility] Comment on above: Order Comment: Speci men Type: BLOOD SPECIMENOrdering Facility: [facility] Address: [address] [place] [address] Performed By: #### 5 8410-2 ####[facility] LABORATORYCLIA [id number] [address] OF [facility] MCV (RBC) [Entitic vol] 92.0 fL Normal 80.0-100.0 [facility] Comment on above: Order Comment: Speci men Type: BLOOD SPECIMENOrdering Facility: [facility] Address: [address] [place] [address] Performed By: #### 5 8410-2 ####[facility] LABORATORYCLIA [id number] [address] OF [place] Nucleated RBC (Bld) [#/Vol] 10*3/uL Normal <0.01 [facility] Comment on above: Order Comment: Speci men Type: BLOOD SPECIMENOrdering Facility: [facility] Address: [address] [place] [address] Performed By: #### 5 8410-2 ####[facility] LABORATORYCLIA [id number] [address] OF [facility] Platelet mean volume (Bld) [Entitic vol] 9.2 fL Normal 9.0-12.7 [facility] Comment on above: Order Comment: Speci men Type: BLOOD SPECIMENOrdering Facility: [facility] Address: [address] [place] [address] Performed By: #### 5 8410-2 ####[facility] LABORATORYCLIA [id number] [address] Platelets (Bld) [#/Vol] 172 10*3/uL Normal 150-400 [facility] Comment on above: Order Comment: Speci men Type: BLOOD SPECIMENOrdering Facility: [facility] Address: [address] [place] [address] Performed By: #### 5 8410-2 ####[facility] LABORATORYCLIA [id number] [address] OF [place] RBC (Bld) [#/Vol] 3.74 10*6/uL Low 3.90-5.20 [facility] Comment on above: Order Comment: Speci men Type: BLOOD SPECIMENOrdering Facility: [facility] Address: [address] [place] [address] Performed By: #### 5 8410-2 ####[facility] LABORATORYCLIA [id number] [place] [address] [facility] WBC (Bld) [#/Vol] 7.65 10*3/uL Normal 3.70-11.00 [facility] Comment on above: Order Comment: Speci men Type: BLOOD SPECIMENOrdering Facility: [facility] Address: [address] [place] [address] Performed By: #### 5 8410-2 ####[facility] LABORATORYCLIA [id number] [place] [address] [facility] CNDSon 08-06-2024 CNDS HNO ID: [id number] Author: ECTOR GONZALEZ MD Service: General Surgery [...] IN THE HOSPITAL: Tamica Anderson presented to [facility] as a transfer from [place] following a reported ground level fall on [...] occupational therapy who recommended discharge to a care home facility. She was also evaluated by speech [...] No pending results Discharge Disposition Discharge Disposition: Senior Care Facility - Less than 30 Days Activity [...] you become constipated, you may use any efbw-kwj-dnmkhud treatment such as Milk of Magnesia, Sennakot, [...] cold and (more content not included)... Normal [facility] CT BRAIN WO IVCONon 08-07-19 CT BRAIN WO IVCON * * *Final Report* * * DATE OF EXAM: Aug 06 2024 8:34AM [facility] 0504 - CT BRAIN WO IVCON / [...] ischemic changes of the supratentorial white matter. Iron Worker Apprentice: PSCB Transcribe Date/Time: Aug 06 2024 9:42A Dictated by : KIN ROGERS MD This examination was interpreted and the report reviewed and electronically signed by: KIN ROGERS MD on Aug 06 2024 9:58AM EST [id number] Normal [facility] CONSULT PROGon 08-05-2024 CONSULT PROG HNO ID: [id number] Author: SU JOHN PA Service: Geriatrics Author Type: Physician It Compliance Manager Type: Consult Progress Note Filed: 08/05/2024 13:16 [...] be hallucinating. (more content not included)... Normal [facility] THERAPY NTon 08-05-2024 THERAPY NT HNO ID: [id number] Author: JACKIE CHURCH CCC-PLATE FORMER Service: Speech/Swallow Author Type: Speech Language Pathologist Type: Therapy (PT/OT/Speech/Resp) Filed: 08/05/2024 17:04 Note Text: Speech Therapy Treatment SERVICE DATE: 08/05/2024 SERVICE TIME: 1555 to 1620 ROOM: [address] Communication deficits identified: Cognitive deficits Swallow [...] Unspecified symbolic dysfunctions TREATMENT INTERVENTIONS Speech Therapy (12241), Dysphagia Therapy (40555) Skilled Treatment Time (minutes): 25 $ Dysphagia Therapy (01975) Billed Units: 1 unit $ Speech Therapy (48755) Billed Units: 1 unit TRAINING AND EDUCATION [...] straw at (more content not included)... Normal [facility] 25(OH)D3 [facility] 2024 25-hydroxyvitamin D3 [Mass/Vol] 59.3 ng/mL Normal >=30.0 [facility] Comment on above: Order Comment: Speci men Type: BLOOD SPECIMENOrdering Facility: [facility] Address: [address] [place] [address] Result Comment: Clas sification of 25 [place] Vitamin D status: Deficiency: <= 20.0 ng/ml. Insufficiency: 21.0-29.0 ng/ml. Sufficiency: >= 30.0 ng/ml. Performed By: #### 1 989-3 ####[facility] LABORATORYCLIA [id number] [place] [address] [place] Basic metabolic 2000 panelon 08-04-2024 Anion gap [Moles/Vol] 11 mmol/L Normal 8-15 [facility] Comment on above: Order Comment: Speci men Type: BLOOD SPECIMENOrdering Facility: [facility] Address: [address] [place] [address] Performed By: #### 2 4321-2 ####[facility] LABORATORYCLIA [id number] [place] [address] [place] Calcium [Mass/Vol] 9.1 mg/dL Normal 8.5-10.2 [facility] Comment on above: Order Comment: Speci men Type: BLOOD SPECIMENOrdering Facility: [facility] Address: [address] [place] [address] Performed By: #### 2 4321-2 ####[facility] LABORATORYCLIA [id number] [place] [address] [place] Chloride [Moles/Vol] 100 mmol/L Normal 98-107 [facility] Comment on above: Order Comment: Speci men Type: BLOOD SPECIMENOrdering Facility: [facility] Address: [address] [place] [address] Performed By: #### 2 4321-2 ####[facility] LABORATORYCLIA [id number] [place] [address] [place] CO2 [Moles/Vol] 28 mmol/L Normal 22-30 [facility] Comment on above: Order Comment: Speci men Type: BLOOD SPECIMENOrdering Facility: [facility] Address: [address] [place] [id number] Performed By: #### 2 4321-2 ####[facility] LABORATORYCLIA [id number] [place] [id number] [place] [facility] Creatinine [Mass/Vol] 0.77 mg/dL Normal 0.58-0.96 [facility] Comment on above: Order Comment: Speci men Type: BLOOD SPECIMENOrdering Facility: [facility] Address: [address] [place] [address] Performed By: #### 2 4321-2 ####[facility] LABORATORYCLIA [id number] [address] Creatinine and Glomerular filtration rate.predicted panel (S/P/Bld) 77 mL/min/1.73m??? Normal >=60 [facility] Comment on above: Order Comment: Speci men Type: BLOOD SPECIMENOrdering Facility: [facility] Address: [address] [place] [address] Result Comment: Venita mated Glomerular Filtration Rate [...] actual GFR. Performed By: #### 2 4321-2 ####[facility] LABORATORYCLIA [id number] [address] [place] Glucose [Mass/Vol] 123 mg/dL High 74-99 [facility] Comment on above: Order Comment: Speci men Type: BLOOD SPECIMENOrdering Facility: [facility] Address: [address] [place] [address] Result Comment: The [place] Diabetes Association (ADA) provides guidance for cutoff [...] Standards of Medical Care in Diabetes 2016, [place] [employer]. Diabetes Care. 2016.39(Suppl 1). Performed By: #### 2 4321-2 ####[facility] LABORATORYCLIA [id number] [place] [address] [place] Potassium [Moles/Vol] Normal [facility] Comment on above: Order Comment: Patria mei Type: BLOOD SPECIMENOrdering Facility: [facility] Address: [address] [place] [address] Result Comment: Unab le to assay due to interference from hemolysis. Suggest reorder as clinically indicated. Performed By: #### 2 4321-2 ####[facility] LABORATORYCLIA [id number] [address] STATES [facility] Sodium [Moles/Vol] 139 mmol/L Normal 136-144 [facility] Comment on above: Order Comment: Patria mei Type: BLOOD SPECIMENOrdering Facility: [facility] Address: [address] [place] [address] Performed By: #### 2 4321-2 ####[facility] LABORATORYCLIA [id number] [address] STATES [facility] Urea nitrogen [Mass/Vol] 23 mg/dL High 7-21 [facility] Comment on above: Order Comment: Filipei hamida Type: BLOOD SPECIMENOrdering Facility: [facility] Address: [address] [place] [address] Performed By: #### 2 4321-2 ####[facility] LABORATORYCLIA [id number] [place] [id number] [facility] OF [place] CBC panel Auto (Bld)on 08-04 Erythrocyte distribution width (RBC) [Ratio] 13.2 % Normal 11.5-15.0 [facility] Comment on above: Order Comment: Filipei men Type: BLOOD SPECIMENOrdering Facility: [facility] Address: [address] [place] [address] Performed By: #### 5 8410-2 ####[facility] LABORATORYCLIA [id number] [address] STATES OF [facility] Hematocrit (Bld) [Volume fraction] 32.9 % Low 36.0-46.0 [facility] Comment on above: Order Comment: Speci men Type: BLOOD SPECIMENOrdering Facility: [facility] Address: [address] [place] [address] Performed By: #### 5 8410-2 ####[facility] LABORATORYCLIA [id number] [address] STATES OF [facility] Hemoglobin (Bld) [Mass/Vol] 10.7 g/dL Low 11.5-15.5 [facility] Comment on above: Order Comment: Speci men Type: BLOOD SPECIMENOrdering Facility: [facility] Address: [address] [place] [address] Performed By: #### 5 8410-2 ####[facility] LABORATORYCLIA [id number] [address] STATES OF [facility] MCH (RBC) [Entitic mass] 29.9 pg Normal 26.0-34.0 [facility] Comment on above: Order Comment: Speci men Type: BLOOD SPECIMENOrdering Facility: [facility] Address: [address] [place] [address] Performed By: #### 5 8410-2 ####[facility] LABORATORYCLIA [id number] [address] [place] MCHC (RBC) [Mass/Vol] 32.5 g/dL Normal 30.5-36.0 [facility] Comment on above: Order Comment: Speci men Type: BLOOD SPECIMENOrdering Facility: [facility] Address: [address] [place] [address] Performed By: #### 5 8410-2 ####[facility] LABORATORYCLIA [id number] [address] [place] MCV (RBC) [Entitic vol] 91.9 fL Normal 80.0-100.0 [facility] Comment on above: Order Comment: Speci men Type: BLOOD SPECIMENOrdering Facility: [facility] Address: [address] [place] [address] Performed By: #### 5 8410-2 ####[facility] LABORATORYCLIA [id number] [address] OF [place] Nucleated RBC (Bld) [#/Vol] 10*3/uL Normal <0.01 [facility] Comment on above: Order Comment: Speci men Type: BLOOD SPECIMENOrdering Facility: [facility] Address: [address] [place] [address] Performed By: #### 5 8410-2 ####[facility] LABORATORYCLIA [id number] [address] OF [place] Platelet mean volume (Bld) [Entitic vol] 10.2 fL Normal 9.0-12.7 [facility] Comment on above: Order Comment: Speci men Type: BLOOD SPECIMENOrdering Facility: [facility] Address: [address] [place] [address] Performed By: #### 5 8410-2 ####[facility] LABORATORYCLIA [id number] [address] [place] Platelets (Bld) [#/Vol] 179 10*3/uL Normal 150-400 [facility] Comment on above: Order Comment: Speci men Type: BLOOD SPECIMENOrdering Facility: [facility] Address: [address] [place] [address] Performed By: #### 5 8410-2 ####[facility] LABORATORYCLIA [id number] [address] [place] RBC (Bld) [#/Vol] 3.58 10*6/uL Low 3.90-5.20 [facility] Comment on above: Order Comment: Speci men Type: BLOOD SPECIMENOrdering Facility: [facility] Address: [address] [place] [address] Performed By: #### 5 8410-2 ####[facility] LABORATORYCLIA [id number] [place] [address] [facility] OF [place] WBC (Bld) [#/Vol] 8.09 10*3/uL Normal 3.70-11.00 [facility] Comment on above: Order Comment: Speci men Type: BLOOD SPECIMENOrdering Facility: [facility] Address: [address] [place] [address] [place] [address] Performed By: #### 5 8410-2 ####[facility] LABORATORYCLIA [id number] [place] [address] [facility] CONSULTon 08-04-2024 CONSULT HNO ID: [id number] Author: VIKTORIYA RODRIGUEZ PA-C Service: Plastic Surgery Author Type: Physician It Compliance Manager Type: Consults Filed: 08/04/2024 10:25 Note Text: [...] a SDH w/possible SAH prompting transfer to [facility] for further evaluation. Pt has [...] Units SUBCUTANEOUS EVERY 12 HOURS Given, 08/04 0808/03/24 1532 -- 08/02/24 1030 activity - mobilize patient (az,pr) 08/01/24 1316 vte pharmacologic prophylaxis contraindicated (az,pr) 08/01/24 1316 pneumatic compression sleeve(s) ([place]) VTE Prophylaxis: VTE prophylaxis appropriate SIGNATURE: Viktoriya Rodriguez PA-C PATIENT NAME: Tamica Anderson DATE: August 04, 2024 TIME: 8:57 AM PHONE: [phone] [facility] CONSULT PROGon 08-04-2024 CONSULT PROG HNO ID: [id number] Author: SU JOHN PA Service: Geriatrics Author Type: Physician It Compliance Manager Type: Consult Progress Note Filed: 08/04/2024 15:32 [...] Objective 08/03/24 1209 08/03/24 1609 08/03/24 1917 08/03/24 2325 BP: 157/70 169/73 124/75 145/68 Pulse: 77 77 82 83 Resp: 14 Temp: 36.8 ?C (98.3 ?F) 37.4 ?C [...] oxycodone), fall. (more content not included)... Normal [facility] ARTERIAL BLOOD GASESon 08-03 Base excess Calc (Bld) [Moles/Vol] 3 mmol/L High 0-2 [facility] Comment on above: Order Comment: Speci men Type: ARTERIAL BLOOD SPECIMENOrdering Facility: [facility] Address: [address] [place] [address] Performed By: #### A LL ####[facility] LABORATORYCLIA [id number] [place] [address] [place] Body temperature 97.52 [degF] Normal [facility] Comment on above: Order Comment: Speci men Type: ARTERIAL BLOOD SPECIMENOrdering Facility: [facility] Address: [address] [place] [address] Performed By: #### A LLBG ####[facility] LABORATORYCLIA [id number] [address] [place] Calcium.ionized (BldV) [Mass/Vol] 1.20 mmol/L Normal 1.08-1.30 [facility] Comment on above: Order Comment: Speci men Type: ARTERIAL BLOOD SPECIMENOrdering Facility: [facility] Address: [address] [place] [address] Performed By: #### A LLBG ####[facility] LABORATORYCLIA [id number] [address] [place] Calcium.ionized adjusted to pH 7.4 (BldA) [Moles/Vol] 1.20 mmol/L Normal 1.08-1.30 [facility] Comment on above: Order Comment: Speci men Type: ARTERIAL BLOOD SPECIMENOrdering Facility: [facility] Address: [address] [place] [address] Performed By: #### A LLBG ####[facility] LABORATORYCLIA [id number] [address] [place] Carboxyhemoglobin (BldA) [Mass fraction] 1.4 % Normal 0.0-2.0 [facility] Comment on above: Order Comment: Speci men Type: ARTERIAL BLOOD SPECIMENOrdering Facility: [facility] Address: [address] [place] [address] Result Comment: Carb oxyhemoglobin Reference Range for Smokers: 2.0-8.0% Performed By: #### A LLBG ####[facility] LABORATORYCLIA [id number] [address] [place] Chloride [Moles/Vol] 105 mmol/L Normal 97-105 [facility] Comment on above: Order Comment: Speci men Type: ARTERIAL BLOOD SPECIMENOrdering Facility: [facility] Address: [address] [place], [place] [id number] Performed By: #### A LLBG ####[facility] LABORATORYCLIA [id number] [address] CO2 (Bld) [Partial pressure] 45 mm Hg Normal 36-46 [facility] Comment on above: Order Comment: Speci men Type: ARTERIAL BLOOD SPECIMENOrdering Facility: [facility] [facility] Address: [address] [place] [address] Performed By: #### A LLBG ####[facility]ORATORYCLIA [id number] [address] CO2 adjusted to patient's actual temperature (Bld) [Partial pressure] 44 mmHg Normal 36-46 [facility] Comment on above: Order Comment: Speci men Type: ARTERIAL BLOOD SPECIMENOrdering Facility: [facility] Address: [address] [place] [address] Performed By: #### A LLBG ####[facility] LABORATORYCLIA [id number] [address] [place] Glucose [Mass/Vol] 104 mg/dL Normal 60-105 [facility] Comment on above: Order Comment: Speci men Type: ARTERIAL BLOOD SPECIMENOrdering Facility: [facility] Address: [address] [place] [address] Performed By: #### A LLBG ####[facility] LABORATORYCLIA [id number] [address] HCO3 (Bld) [Moles/Vol] 27 mmol/L High 22-26 [facility] Comment on above: Order Comment: Speci men Type: ARTERIAL BLOOD SPECIMENOrdering Facility: [facility] Address: [address] [place] [address] Performed By: #### A LLBG ####[facility] LABORATORYCLIA [id number] [address] Hematocrit (Bld) [Volume fraction] 31.9 % Low 36.0-46.0 [facility] Comment on above: Order Comment: Speci men Type: ARTERIAL BLOOD SPECIMENOrdering Facility: [facility] Address: [address] [place] [address] Performed By: #### A LLBG ####[facility]ORATORYCLIA [id number] [address] [place] Hemoglobin (Bld) [Mass/Vol] 10.3 g/dL Low 11.5-15.5 [facility] Comment on above: Order Comment: Speci men Type: ARTERIAL BLOOD SPECIMENOrdering Facility: [facility] Address: [address] [place] [address] Performed By: #### A LLBG ####[facility] LABORATORYCLIA [id number] [address] [place] Lactate [Moles/Vol] 0.6 mmol/L Normal 0.5-2.2 [facility] Comment on above: Order Comment: Speci men Type: ARTERIAL BLOOD SPECIMENOrdering Facility: [facility] Address: [address] [place] [address] Performed By: #### A LLBG ####[facility] LABORATORYCLIA [id number] [address] STATES [place] 4 Liters/min Normal [facility] Comment on above: Order Comment: Speci men Type: ARTERIAL BLOOD SPECIMENOrdering Facility: [facility] Address: [address] [place] [address] Performed By: #### A LLBG ####[facility] LABORATORYCLIA [id number] [address] [place] Methemoglobin (Bld) [Mass fraction] 0.5 % Normal 0.0-1.5 [facility] Comment on above: Order Comment: Speci men Type: ARTERIAL BLOOD SPECIMENOrdering Facility: [facility] Address: [address] [place] [address] Performed By: #### A LLBG ####[facility]ORATORYCLIA [id number] [address] [place] O2 THERAPY NC = Nasal Cannula Normal [facility] Comment on above: Order Comment: Speci men Type: ARTERIAL BLOOD SPECIMENOrdering Facility: [facility] Address: [address] [place] [address] Performed By: #### A LLBG ####[facility]ORATORYCLIA [id number] [address] [place] Oxygen (Bld) [Partial pressure] 63 mm Hg Low 85-95 [facility] Comment on above: Order Comment: Speci men Type: ARTERIAL BLOOD SPECIMENOrdering Facility: [facility] Address: [address] [place] [address] Performed By: #### A LLBG ####[facility]ORATORYCLIA [id number] [address] Oxygen adjusted to patient's actual temperature (Bld) [Partial pressure] 61 mmHg Low 85-95 [facility] Comment on above: Order Comment: Speci men Type: ARTERIAL BLOOD SPECIMENOrdering Facility: [facility] Address: [address] [place] [address] Performed By: #### A LLBG ####[facility] LABORATORYCLIA [id number] [address] [place] Oxyhemoglobin (BldA) [Mass fraction] 89 % Low 95-98 [facility] Comment on above: Order Comment: Speci men Type: ARTERIAL BLOOD SPECIMENOrdering Facility: [facility] Address: [address] [place] [address] Performed By: #### A LLBG ####[facility] LABORATORYCLIA [id number] [place] [address] [place] pH (Bld) 7.40 [pH] Normal 7.35-7.45 [facility] Comment on above: Order Comment: Speci men Type: ARTERIAL BLOOD SPECIMENOrdering Facility: [facility] Address: [address] [place] [address] Performed By: #### A LLBG ####[facility]ORATORYCLIA [id number] [address] [place] pH adjusted to patient's actual temperature (Bld) 7.41 Normal 7.35-7.45 [facility] Comment on above: Order Comment: Speci men Type: ARTERIAL BLOOD SPECIMENOrdering Facility: [facility] Address: [address] [place] [address] Performed By: #### A LLBG ####[facility] LABORATORYCLIA [id number] [place] [address] [place] Potassium [Moles/Vol] 3.5 mmol/L Normal 3.5-5.0 [facility] Comment on above: Order Comment: Speci men Type: ARTERIAL BLOOD SPECIMENOrdering Facility: [facility] Address: [address] [place] [address] Performed By: #### A LLBG ####[facility] LABORATORYCLIA [id number] [place] [address] [place] Sodium [Moles/Vol] 138 mmol/L Normal 136-144 [facility] Comment on above: Order Comment: Speci men Type: ARTERIAL BLOOD SPECIMENOrdering Facility: [facility] Address: [address] [place] [address] Performed By: #### A LLBG ####[facility] LABORATORYCLIA [id number] [place] [address] [place] Basic metabolic 2000 panelon 08-03-2024 Anion gap [Moles/Vol] 13 mmol/L Normal 8-15 [facility] Comment on above: Order Comment: Speci men Type: BLOOD SPECIMENOrdering Facility: [facility] Address: [address] [place] [address] Performed By: #### 2 4321-2 ####[facility] LABORATORYCLIA [id number] [place] [address] [place] Calcium [Mass/Vol] 9.3 mg/dL Normal 8.5-10.2 [facility] Comment on above: Order Comment: Speci men Type: BLOOD SPECIMENOrdering Facility: [facility] Address: [address] [place] [address] Performed By: #### 2 4321-2 ####[facility] LABORATORYCLIA [id number] [place] [address] [place] Chloride [Moles/Vol] 100 mmol/L Normal 98-107 [facility] Comment on above: Order Comment: Speci men Type: BLOOD SPECIMENOrdering Facility: [facility] Address: [address] [place] [address] Performed By: #### 2 4321-2 ####[facility] LABORATORYCLIA [id number] [address] [place] CO2 [Moles/Vol] 25 mmol/L Normal 22-30 [facility] Comment on above: Order Comment: Speci men Type: BLOOD SPECIMENOrdering Facility: [facility] Address: [address] [place] [address] Performed By: #### 2 4321-2 ####[facility]CLIA [id number] [address] STATES OF [facility] Creatinine [Mass/Vol] 0.85 mg/dL Normal 0.58-0.96 [facility] Comment on above: Order Comment: Speci men Type: BLOOD SPECIMENOrdering Facility: [facility] Address: [address] [place] [address] Performed By: #### 2 4321-2 ####[facility] LABORATORYCLIA [id number] [address] Creatinine and Glomerular filtration rate.predicted panel (S/P/Bld) 68 mL/min/1.73m??? Normal >=60 [facility] Comment on above: Order Comment: Speci men Type: BLOOD SPECIMENOrdering Facility: [facility] Address: [address] [place] [address] Result Comment: Venita mated Glomerular Filtration Rate [...] actual GFR. Performed By: #### 2 4321-2 ####[facility] LABORATORYCLIA [id number] [place] [address] [place] Glucose [Mass/Vol] 102 mg/dL High 74-99 [facility] Comment on above: Order Comment: Speci men Type: BLOOD SPECIMENOrdering Facility: [facility] Address: [address] [place] [address] Result Comment: The [place] [employer] (ADA) provides guidance for cutoff [...] Standards of Medical Care in Diabetes 2016, [place] [employer]. Diabetes Care. 2016.39(Suppl 1). Performed By: #### 2 4321-2 ####[facility] LABORATORYCLIA [id number] [place] [address] [place] Potassium [Moles/Vol] 3.7 mmol/L Normal 3.7-5.1 [facility] Comment on above: Order Comment: Speci men Type: BLOOD SPECIMENOrdering Facility: [facility] Address: [address] [place] [address] Performed By: #### 2 4321-2 ####[facility] LABORATORYCLIA [id number] [place] [address] [place] Sodium [Moles/Vol] 138 mmol/L Normal 136-144 [facility] Comment on above: Order Comment: Speci men Type: BLOOD SPECIMENOrdering Facility: [facility] Address: [address] [place] [address] Performed By: #### 2 4321-2 ####[facility] LABORATORYCLIA [id number] [place] [address] [place] Urea nitrogen [Mass/Vol] 22 mg/dL High 7-21 [facility] Comment on above: Order Comment: Speci men Type: BLOOD SPECIMENOrdering Facility: [facility] Address: [address] [place] [address] Performed By: #### 2 4321-2 ####[facility] LABORATORYCLIA [id number] [address] CBC panel Auto (Bld)on 08-03 Erythrocyte distribution width (RBC) [Ratio] 13.1 % Normal 11.5-15.0 [facility] Comment on above: Order Comment: Speci men Type: BLOOD SPECIMENOrdering Facility: [facility] Address: [address] [place] [address] Performed By: #### 5 8410-2 ####[facility] LABORATORYCLIA [id number] [address] [place] Hematocrit (Bld) [Volume fraction] 31.0 % Low 36.0-46.0 [facility] Comment on above: Order Comment: Speci men Type: BLOOD SPECIMENOrdering Facility: [facility] Address: [address] [place] [address] Performed By: #### 5 8410-2 ####[facility] LABORATORYCLIA [id number] [address] [place] Hemoglobin (Bld) [Mass/Vol] 10.1 g/dL Low 11.5-15.5 [facility] Comment on above: Order Comment: Speci men Type: BLOOD SPECIMENOrdering Facility: [facility] Address: [address] [place] [address] Performed By: #### 5 8410-2 ####[facility] LABORATORYCLIA [id number] [address] [place] MCH (RBC) [Entitic mass] 29.5 pg Normal 26.0-34.0 [facility] Comment on above: Order Comment: Speci men Type: BLOOD SPECIMENOrdering Facility: [facility] Address: [address] [place] [address] Performed By: #### 5 8410-2 ####[facility] LABORATORYCLIA [id number] [address] STATES OF [facility] MCHC (RBC) [Mass/Vol] 32.6 g/dL Normal 30.5-36.0 [facility] Comment on above: Order Comment: Speci men Type: BLOOD SPECIMENOrdering Facility: [facility] Address: [address] [place] [address] Performed By: #### 5 8410-2 ####[facility] LABORATORYCLIA [id number] [address] OF [facility] MCV (RBC) [Entitic vol] 90.6 fL Normal 80.0-100.0 [facility] Comment on above: Order Comment: Speci men Type: BLOOD SPECIMENOrdering Facility: [facility] Address: [address] [place] [address] Performed By: #### 5 8410-2 ####[facility] LABORATORYCLIA [id number] [address] Nucleated RBC (Bld) [#/Vol] 10*3/uL Normal <0.01 [facility] Comment on above: Order Comment: Speci men Type: BLOOD SPECIMENOrdering Facility: [facility] Address: [address] [place] [address] Performed By: #### 5 8410-2 ####[facility] LABORATORYCLIA [id number] [address] [place] Platelet mean volume (Bld) [Entitic vol] 9.2 fL Normal 9.0-12.7 [facility] Comment on above: Order Comment: Speci men Type: BLOOD SPECIMENOrdering Facility: [facility] Address: [address] [place] [address] Performed By: #### 5 8410-2 ####[facility] LABORATORYCLIA [id number] [address] Platelets (Bld) [#/Vol] 145 10*3/uL Low 150-400 [facility] Comment on above: Order Comment: Speci men Type: BLOOD SPECIMENOrdering Facility: [facility] Address: [address] [place] [address] Performed By: #### 5 8410-2 ####[facility] LABORATORYCLIA [id number] [place] [id number] [facility] RBC (Bld) [#/Vol] 3.42 10*6/uL Low 3.90-5.20 [facility] Comment on above: Order Comment: Speci men Type: BLOOD SPECIMENOrdering Facility: [facility] Address: [address] [place], [place] [address] Performed By: #### 5 8410-2 ####[facility] LABORATORYCLIA [id number] [place] [id number] [facility] WBC (Bld) [#/Vol] 8.04 10*3/uL Normal 3.70-11.00 [facility] Comment on above: Order Comment: Speci men Type: BLOOD SPECIMENOrdering Facility: [facility] Address: [address] [place], [place] [address] Performed By: #### 5 8410-2 ####[facility] LABORATORYCLIA [id number] [place] [id number] [facility] CONSULTon 08-03-2024 CONSULT HNO ID: [id number] Author: SU JOHN PA Service: Geriatrics Author Type: Physician It Compliance Manager Type: Consults Filed: 08/03/2024 15:59 Note Text: GERIATRIC MEDICINE CONSULT NOTE SERVICE DATE: 08/03/2024 SERVICE TIME: 10:40 AM [id number] 4-* REASON FOR CONSULT: Fall with TBI, altered mental status REQUESTING PROVIDER: Diamante Galindo CNP HISTORY OF PRESENT ILLNESS: Tamica Anderson is a 84 year old female with a past medical history of HTN, HLD, KATTY, T2DM, anxiety, and depression who was admitted on 08/01 for subdural hematoma. Patient walking into the bathroom when she tripped and fell forward, denies LOC, was taken to [place] ED for evaluation. Noted patient admitted to having 6 falls over the last month. Imaging revealed small amount of acute appearing subdural hemorrhage anterior inferior interhemispheric frontal measures up to 7mm in thickness, some trace adjacent sulcal inferior frontal possible subarachnoid hemorrhage, and mildly displaced left nasal fracture. Was transferred to [facility] for trauma evaluation, recommended admission under trauma to ICU. Neurosurgery consulted for SDH, recommended non-operative management. Noted positive CAM-ICUs, was wn restraints and noted to be on precedex for agitation. Was later transferred to [facility] on 08/02. Noted increased oxygen requirement [...] is very with-it, denies memory concerns. Denies [employer], wears glasses for paying bills or reading, [...] iv b (more content not included)... Normal [facility] ECG COMPLETEon 08-03-2024 ECG COMPLETE Ventricular Rate : 7 6 BPM Atrial Rate : 76 BPM P-R Interval : 146 ms QRS Duration : 126 ms Q-T Interval : 414 ms QTC Calculation(Bazett) : 465 ms Calculated P [place] : 27 degrees Calculated R [place] : -8 degrees Calculated T [place] : 6 degrees NORMAL SINUS RHYTHM RIGHT BUNDLE BRANCH BLOCK MINIMAL VOLTAGE CRITERIA FOR LVH, MAY BE NORMAL VARIANT ( R in aVL ) ABNORMAL ECG NO PREVIOUS ECGS AVAILABLE Confirmed by MD HEIDY, CRISPIN ([id number]) on 08/04/2024 2:03:32 PM NAME : TAMICA ANDERSON PID : [id number] : 1940 Gender : Female Race : ORD : [id number] Procedure Date : Aug 03 2024 08:29:50 Edit Date : Aug 04 2024 14:03:33 Diagnosis: NORMAL SINUS RHYTHM RIGHT BUNDLE BRANCH BLOCK MINIMAL VOLTAGE CRITERIA FOR LVH, MAY BE NORMAL VARIANT ( R in aVL ) ABNORMAL ECG NO PREVIOUS ECGS AVAILABLE Confirmed by MD MOODY YASSAR ([id number]) on 08/04/2024 2:03:32 PM Test Reason : Check QT Location : 200 : [place] [address] Overread By : MD MOODY YASSAR Edited By : MD MOODY YASSAR Referred By : , Acquired by : ANDRÉS HARVEY [facility] THERAPY NTon 08-03-2024 THERAPY NT HNO ID: [id number] Author: MAGALI ESPINOSA OTR/Catherine Service: Occupational Therapy Author Type: Occupational Therapist Type: Therapy (PT/OT/Speech/Resp) Filed: 08/03/2024 13:38 Note Text: Occupational Therapy Evaluation Summary SERVICE DATE: 08/03/2024 SERVICE TIME: 1116 to 1131 ROOM: [place] [address] OT 6 Clicks Score: 15 DISCHARGE RECOMMENDATIONS Subacute/SNF Recommended Discharge Disposition Comments: Pt currently functioning below functional baseline at this time with multiple recent falls. [place] services to assist with returning to PLOF and maximizing indepedence. Recommended Discharge Disposition Due [...] Time (minutes): 15 $ Evaluation - Moderate (10821) Billed Units: 1 unit TRAINING AND EDUCATION PROVIDED Activity Adaptation/Community Health Agent y Strategies, Bed Mobility, Assistive Device Use, Command Following, Expected Functional Level, Grooming Tasks, Functional Mobility Involving ADLs, Lower Extremity Dressing, Orientation, Role of Occupational Therapy, Sitting Balance to Improve [place] with ADLs/Self-Care, Standing Balance to Improve [place] with ADLs/Self-Care, Transfer - Sit to Stand [...] bed mobility (more content not included)... Normal [facility] THERAPY NT HNO ID: [id number] Author: CRISELDA MENJIVAR, PT Service: Physical Therapy Author Type: Physical Therapist Type: Therapy (PT/OT/Speech/Resp) Filed: 08/03/2024 16:21 Note Text: Physical Therapy Evaluation Summary SERVICE DATE: 08/03/2024 SERVICE TIME: 1132 to 1151 ROOM: [id number] PT 6 Clicks Score: 17 DISCHARGE RECOMMENDATIONS [...] Reduced mobility-other TREATMENT INTERVENTIONS Evaluation $ Evaluation-Moderate (93981) Billed Units: 1 unit Skilled Treatment Time [...] Mobility Training, Balance Training, Pain Management SIGNATURE: Jeremy Rothman, SPT PATIENT NAME: Tamica Anderson DATE: August 03, 2024 TIME: 12:13 PM I reviewed and agree with the documentation corresponding to this therapy visit. SIGNATURE: Criselda Menjivar, YIN DATE: August 03, 2024 TIME: 4:21 PM Normal [facility] THERAPY NT HNO ID: [id number] Author: JACKIE CHURCH [facility] Service: Speech/Swallow Author Type: Speech Language Pathologist Type: Therapy (PT/OT/Speech/Resp) Filed: 08/03/2024 10:29 Note Text: Speech Therapy Speech Evaluation, Clinical Swallow Evaluation SERVICE DATE: 08/03/2024 SERVICE TIME: 0920 to 0955 ROOM: [address] Communication deficits identified: Cognitive deficits Swallow [...] symbolic dysfunctions TREATMENT INTERVENTIONS Speech Language Eval (44953), Clinical Swallow Evaluation (33632) Skilled Treatment Time (minutes): 35 TRAINING AND [...] Upright In Bed Feeding Method: Patient Self-Fed, PLATE FORMER Fed Patient Consistencies Presented: Thin Liquids IDDSI [...] response, or unable to respond Stimulus Response/Score City 3/3 (more content not included)... Normal [facility] URINALYSIS, REFLEX MICROSCOP ICon 08-03-2024 Bilirubin Ql (U) Negative Normal Negative [facility] Comment on above: Order Comment: Speci men Type: URINE SPECIMENOrdering Facility: [facility] Address: [address] [place] [address] Performed By: #### L [id number] ####[facility] LABORATORYCLIA [id number] [address] [place] Clarity (Unsp spec) Clear Normal Clear [facility] Comment on above: Order Comment: Speci men Type: URINE SPECIMENOrdering Facility: [facility] Address: [address] [place] [address] Performed By: #### L [id number] ####[facility] LABORATORYCLIA [id number] [address] Color (U) Yellow Normal yellow [facility] Comment on above: Order Comment: Speci men Type: URINE SPECIMENOrdering Facility: [facility] Address: [address] [place] [address] Performed By: #### L [id number] ####[facility] LABORATORYCLIA [id number] [address] [place] Glucose Test strip (U) [Mass/Vol] Negative Normal Trace, Negative [facility] Comment on above: Order Comment: Speci men Type: URINE SPECIMENOrdering Facility: [facility] Address: [address] [place] [address] Performed By: #### L [id number] ####[facility] LABORATORYCLIA [id number] [address] [place] Hemoglobin Ql (U) Negative Normal Negative, Trace [facility] Comment on above: Order Comment: Speci men Type: URINE SPECIMENOrdering Facility: [facility] Address: [address] [place] [address] Performed By: #### L [id number] ####[facility] LABORATORYCLIA [id number] [address] Hyaline casts (Urine sed) [#/Area] 1-3 /LPF Abnormal 0 /LPF [facility] Comment on above: Order Comment: Speci men Type: URINE SPECIMENOrdering Facility: [facility] Address: [address] [place] [address] Performed By: #### L [id number] ####[facility] LABORATORYCLIA [id number] [address] Ketones Ql (U) 1+ Abnormal Negative, Trace [facility] Comment on above: Order Comment: Speci men Type: URINE SPECIMENOrdering Facility: [facility] Address: [address] [place] [address] Performed By: #### L [id number] ####[facility] LABORATORYCLIA [id number] [address] Leukocyte esterase Test strip Ql (U) 25 Dipika/uL Normal Negative, 25 Dipika/uL [facility] Comment on above: Order Comment: Speci men Type: URINE SPECIMENOrdering Facility: [facility] Address: [address] [place] [address] Performed By: #### L [id number] ####[facility] LABORATORYCLIA [id number] [address] STATES OF [facility] Nitrite Ql (U) Negative Normal Negative [facility] Comment on above: Order Comment: Speci men Type: URINE SPECIMENOrdering Facility: [facility] Address: [address] [place] [address] Performed By: #### L [id number] ####[facility] LABORATORYCLIA [id number] [address] [place] pH (U) 5.5 [pH] Normal 5.0-8.0 [facility] [facility] Comment on above: Order Comment: Speci men Type: URINE SPECIMENOrdering Facility: [facility] Address: [address] [place] [address] Performed By: #### L [id number] ####[facility] LABORATORYCLIA [id number] [address] STATES OF [facility] Protein (U) [Mass/Vol] 1+ Abnormal Trace , Negative [facility] Comment on above: Order Comment: Speci men Type: URINE SPECIMENOrdering Facility: [facility] Address: [address] [place] [address] Performed By: #### L [id number] ####[facility] LABORATORYCLIA [id number] [address] RBC LM.HPF (Urine sed) [#/Area] 3-5 /HPF Abnormal 0-3 /HPF [facility] Comment on above: Order Comment: Speci men Type: URINE SPECIMENOrdering Facility: [facility] Address: [address] [place] [address] Performed By: #### L [id number] ####[facility] LABORATORYCLIA [id number] [address] Specific gravity (U) [Rel density] 1.020 Normal 1.005-1.030 [facility] Comment on above: Order Comment: Speci men Type: URINE SPECIMENOrdering Facility: [facility] Address: [address] [place] [address] Performed By: #### L [id number] ####[facility] LABORATORYCLIA [id number] [address] Urobilinogen Ql (U) Normal Normal Normal [facility] Comment on above: Order Comment: Speci men Type: URINE SPECIMENOrdering Facility: [facility] Address: [address] [place] [address] Performed By: #### L [id number] ####[facility] LABORATORYCLIA [id number] [address] WBC LM.HPF (Urine sed) [#/Area] 6-10 /HPF Abnormal 0-5 /HPF [facility] Comment on above: Order Comment: Speci men Type: URINE SPECIMENOrdering Facility: [facility] Address: [address] [place] [address] Performed By: #### L [id number] ####[facility] LABORATORYCLIA [id number] [address] [place] Basic metabolic 2000 panelon 08-02-2024 Anion gap [Moles/Vol] 12 mmol/L Normal 8-15 [facility] Comment on above: Order Comment: Speci men Type: BLOOD SPECIMENOrdering Facility: [facility] Address: [address] [place] [address] Performed By: #### 2 4321-2 ####[facility] LABORATORYCLIA [id number] [place] [address] [place] Calcium [Mass/Vol] 9.2 mg/dL Normal 8.5-10.2 [facility] Comment on above: Order Comment: Speci men Type: BLOOD SPECIMENOrdering Facility: [facility] Address: [address] [place] [address] Performed By: #### 2 4321-2 ####[facility] LABORATORYCLIA [id number] [place] [address] [place] Chloride [Moles/Vol] 100 mmol/L Normal 98-107 [facility] Comment on above: Order Comment: Speci men Type: BLOOD SPECIMENOrdering Facility: [facility] Address: [address] [place] [address] Performed By: #### 2 4321-2 ####[facility] LABORATORYCLIA [id number] [place] [address] [place] CO2 [Moles/Vol] 25 mmol/L Normal 22-30 [facility] Comment on above: Order Comment: Speci men Type: BLOOD SPECIMENOrdering Facility: [facility] Address: [address] [place] [address] Performed By: #### 2 4321-2 ####[facility] LABORATORYCLIA [id number] [place] [address] [place] Creatinine [Mass/Vol] 0.81 mg/dL Normal 0.58-0.96 [facility] Comment on above: Order Comment: Speci men Type: BLOOD SPECIMENOrdering Facility: [facility] Address: [address] [place] [address] Performed By: #### 2 4321-2 ####[facility] LABORATORYCLIA [id number] [place] [address] [place] Creatinine and Glomerular filtration rate.predicted panel (S/P/Bld) 72 mL/min/1.73m??? Normal >=60 [facility] Comment on above: Order Comment: Patria mei Type: BLOOD SPECIMENOrdering Facility: [facility] Address: [address] [place] [address] Result Comment: Venita mated Glomerular Filtration Rate [...] actual GFR. Performed By: #### 2 4321-2 ####[facility] LABORATORYCLIA [id number] [place] [address] [place] Glucose [Mass/Vol] 105 mg/dL High 74-99 [facility] Comment on above: Order Comment: Patria mei Type: BLOOD SPECIMENOrdering Facility: [facility] Address: [address] [place] [address] Result Comment: The [place] [employer] (ADA) provides guidance for cutoff [...] Standards of Medical Care in Diabetes 2016, [place] [employer]. Diabetes Care. 2016.39(Suppl 1). Performed By: #### 2 4321-2 ####[facility] LABORATORYCLIA [id number] [place] [id number] [place] Potassium [Moles/Vol] 3.6 mmol/L Low 3.7-5.1 [facility] Comment on above: Order Comment: Patria mei Type: BLOOD SPECIMENOrdering Facility: [facility] Address: [address] [place] [address] Performed By: #### 2 4321-2 ####[facility] LABORATORYCLIA [id number] [place] [address] [place] Sodium [Moles/Vol] 137 mmol/L Normal 136-144 [facility] Comment on above: Order Comment: Speci men Type: BLOOD SPECIMENOrdering Facility: [facility] Address: [address] [place] [address] Performed By: #### 2 4321-2 ####[facility] LABORATORYCLIA [id number] [place] [address] [place] Urea nitrogen [Mass/Vol] 22 mg/dL High 7-21 [facility] Comment on above: Order Comment: Speci men Type: BLOOD SPECIMENOrdering Facility: [facility] Address: [address] [place] [address] Performed By: #### 2 4321-2 ####[facility] LABORATORYCLIA [id number] [place] [address] [place] Anion gap [Moles/Vol] 10 mmol/L Normal 8-15 [facility] Comment on above: Order Comment: Speci men Type: BLOOD SPECIMENOrdering Facility: [facility] Address: [address] [place] [address] Performed By: #### 2 4321-2, , 2776-03 ####[facility] LABORATORYCLIA [id number] [place] [address] [place] Calcium [Mass/Vol] 8.8 mg/dL Normal 8.5-10.2 [facility] Comment on above: Order Comment: Speci men Type: BLOOD SPECIMENOrdering Facility: [facility] Address: [facility] [place] [address] Performed By: #### 2 4321-2, , 2776-03 ####[facility] LABORATORYCLIA [id number] [place] [address] [place] Chloride [Moles/Vol] 102 mmol/L Normal 98-107 [facility] Comment on above: Order Comment: Speci men Type: BLOOD SPECIMENOrdering Facility: [facility] Address: [address] [place], [place] [address] Performed By: #### 2 4321-2, , 2776-03 ####[facility] LABORATORYCLIA [id number] [place] [address] [place] CO2 [Moles/Vol] 26 mmol/L Normal 22-30 [facility] Comment on above: Order Comment: Speci men Type: BLOOD SPECIMENOrdering Facility: [facility] Address: [address] [place] [address] Performed By: #### 2 4321-2, , 2776-03 ####[facility] LABORATORYCLIA [id number] [address] STATES OF [facility] Creatinine [Mass/Vol] 0.76 mg/dL Normal 0.58-0.96 [facility] Comment on above: Order Comment: Speci men Type: BLOOD SPECIMENOrdering Facility: [facility] Address: [address] [place] [address] Performed By: #### 2 4321-2, , 2776-03 ####[facility] LABORATORYCLIA [id number] [address] Creatinine and Glomerular filtration rate.predicted panel (S/P/Bld) 78 mL/min/1.73m??? Normal >=60 [facility] Comment on above: Order Comment: Speci men Type: BLOOD SPECIMENOrdering Facility: [facility] Address: [address] [place], [place] [address] Result Comment: Venita mated Glomerular Filtration Rate [...] Performed By: #### 2 4321-2, , 2776-03 ####[facility] LABORATORYCLIA [id number] [place] [address] [place] Glucose [Mass/Vol] 163 mg/dL High 74-99 [facility] Comment on above: Order Comment: Patria mei Type: BLOOD SPECIMENOrdering Facility: [facility] Address: [address] [place], [place] [address] Result Comment: The [place] Diabetes Association (ADA) provides guidance for cutoff [...] Standards of Medical Care in Diabetes 2016, [place] [employer]. Diabetes Care. 2016.39(Suppl 1). Performed By: #### 2 4321-2, , 2776-03 ####[facility] LABORATORYCLIA [id number] [place] [address] [place] Potassium [Moles/Vol] 4.3 mmol/L Normal 3.7-5.1 [facility] Comment on above: Order Comment: Filipei hamida Type: BLOOD SPECIMENOrdering Facility: [facility] Address: [address] [place] [address] Performed By: #### 2 4321-2, , 2776-03 ####[facility] LABORATORYCLIA [id number] [place] [address] [place] Sodium [Moles/Vol] 138 mmol/L Normal 136-144 [facility] Comment on above: Order Comment: Patria men Type: BLOOD SPECIMENOrdering Facility: [facility] Address: [address] [place] [address] Performed By: #### 2 4321-2, , 2776-03 ####[facility] LABORATORYCLIA [id number] [address] [place] Urea nitrogen [Mass/Vol] 20 mg/dL Normal 7-21 [facility] Comment on above: Order Comment: Speci men Type: BLOOD SPECIMENOrdering Facility: [facility] Address: [address] [place] [address] Performed By: #### 2 4321-2, 60385-8, 2777-1 ####[facility] LABORATORYCLIA [id number] [address] OF [facility] CBC panel Auto (Bld)on 08-02 Erythrocyte distribution width (RBC) [Ratio] 13.2 % Normal 11.5-15.0 [facility] Comment on above: Order Comment: Speci men Type: BLOOD SPECIMENOrdering Facility: [facility] Address: [address] [place] [address] Performed By: #### 5 8410-2 ####[facility] LABORATORYCLIA [id number] [address] [place] Hematocrit (Bld) [Volume fraction] 31.0 % Low 36.0-46.0 [facility] Comment on above: Order Comment: Speci men Type: BLOOD SPECIMENOrdering Facility: [facility] Address: [address] [place] [address] Performed By: #### 5 8410-2 ####[facility] LABORATORYCLIA [id number] [address] [place] Hemoglobin (Bld) [Mass/Vol] 10.2 g/dL Low 11.5-15.5 [facility] Comment on above: Order Comment: Speci men Type: BLOOD SPECIMENOrdering Facility: [facility] Address: [address] [place] [address] Performed By: #### 5 8410-2 ####[facility] LABORATORYCLIA [id number] [address] [place] MCH (RBC) [Entitic mass] 29.6 pg Normal 26.0-34.0 [facility] Comment on above: Order Comment: Speci men Type: BLOOD SPECIMENOrdering Facility: [facility] Address: [address] [place] [address] Performed By: #### 5 8410-2 ####[facility] LABORATORYCLIA [id number] [address] MCHC (RBC) [Mass/Vol] 32.9 g/dL Normal 30.5-36.0 [facility] Comment on above: Order Comment: Speci men Type: BLOOD SPECIMENOrdering Facility: [facility] Address: [address] [place] [address] Performed By: #### 5 8410-2 ####[facility] LABORATORYCLIA [id number] [address] MCV (RBC) [Entitic vol] 89.9 fL Normal 80.0-100.0 [facility] Comment on above: Order Comment: Speci men Type: BLOOD SPECIMENOrdering Facility: [facility] Address: [address] [place] [address] Performed By: #### 5 8410-2 ####[facility] LABORATORYCLIA [id number] [address] Nucleated RBC (Bld) [#/Vol] 10*3/uL Normal <0.01 [facility] Comment on above: Order Comment: Speci men Type: BLOOD SPECIMENOrdering Facility: [facility] Address: [address] [place] [address] Performed By: #### 5 8410-2 ####[facility] LABORATORYCLIA [id number] [address] Platelet mean volume (Bld) [Entitic vol] 9.0 fL Normal 9.0-12.7 [facility] Comment on above: Order Comment: Speci men Type: BLOOD SPECIMENOrdering Facility: [facility] Address: [address] [place] [address] Performed By: #### 5 8410-2 ####[facility] LABORATORYCLIA [id number] [address] STATES OF [facility] Platelets (Bld) [#/Vol] 151 10*3/uL Normal 150-400 [facility] Comment on above: Order Comment: Speci men Type: BLOOD SPECIMENOrdering Facility: [facility] Address: [address] [place] [address] Performed By: #### 5 8410-2 ####[facility] LABORATORYCLIA [id number] [place] [address] [place] RBC (Bld) [#/Vol] 3.45 10*6/uL Low 3.90-5.20 [facility] Comment on above: Order Comment: Speci men Type: BLOOD SPECIMENOrdering Facility: [facility] Address: [address] [place] [address] Performed By: #### 5 8410-2 ####[facility] LABORATORYCLIA [id number] [address] WBC (Bld) [#/Vol] 8.10 10*3/uL Normal 3.70-11.00 [facility] Comment on above: Order Comment: Speci men Type: BLOOD SPECIMENOrdering Facility: [facility] Address: [address] [place] [address] Performed By: #### 5 8410-2 ####[facility] LABORATORYCLIA [id number] [address] [place] Erythrocyte distribution width (RBC) [Ratio] 13.1 % Normal 11.5-15.0 [facility] Comment on above: Order Comment: Speci men Type: BLOOD SPECIMENOrdering Facility: [facility] Address: [address] [place] [address] Performed By: #### 5 8410-2 ####[facility] LABORATORYCLIA [id number] [address] Hematocrit (Bld) [Volume fraction] 31.5 % Low 36.0-46.0 [facility] Comment on above: Order Comment: Speci men Type: BLOOD SPECIMENOrdering Facility: [facility] Address: [address] [place] [address] Performed By: #### 5 8410-2 ####[facility] LABORATORYCLIA [id number] [address] OF [facility] Hemoglobin (Bld) [Mass/Vol] 10.2 g/dL Low 11.5-15.5 [facility] Comment on above: Order Comment: Speci men Type: BLOOD SPECIMENOrdering Facility: [facility] Address: [address] [place] [address] Performed By: #### 5 8410-2 ####[facility] LABORATORYCLIA [id number] [address] MCH (RBC) [Entitic mass] 29.7 pg Normal 26.0-34.0 [facility] Comment on above: Order Comment: Speci men Type: BLOOD SPECIMENOrdering Facility: [facility] Address: [address] [place] [address] Performed By: #### 5 8410-2 ####[facility] LABORATORYCLIA [id number] [address] MCHC (RBC) [Mass/Vol] 32.4 g/dL Normal 30.5-36.0 [facility] Comment on above: Order Comment: Speci men Type: BLOOD SPECIMENOrdering Facility: [facility] Address: [address] [place] [address] Performed By: #### 5 8410-2 ####[facility] LABORATORYCLIA [id number] [address] MCV (RBC) [Entitic vol] 91.8 fL Normal 80.0-100.0 [facility] Comment on above: Order Comment: Speci men Type: BLOOD SPECIMENOrdering Facility: [facility] Address: [address] [place] [address] Performed By: #### 5 8410-2 ####[facility] LABORATORYCLIA [id number] [address] Nucleated RBC (Bld) [#/Vol] 10*3/uL Normal <0.01 [facility] Comment on above: Order Comment: Speci men Type: BLOOD SPECIMENOrdering Facility: [facility] Address: [address] [place] [address] Performed By: #### 5 8410-2 ####[facility] LABORATORYCLIA [id number] [place] [address] [place] Platelet mean volume (Bld) [Entitic vol] 9.5 fL Normal 9.0-12.7 [facility] Comment on above: Order Comment: Speci men Type: BLOOD SPECIMENOrdering Facility: [facility] Address: [address] [place] [address] Performed By: #### 5 8410-2 ####[facility] LABORATORYCLIA [id number] [place] [address] [place] Platelets (Bld) [#/Vol] 117 10*3/uL Low 150-400 [facility] Comment on above: Order Comment: Speci men Type: BLOOD SPECIMENOrdering Facility: [facility] Address: [address] [place] [address] Performed By: #### 5 8410-2 ####[facility] LABORATORYCLIA [id number] [place] [address] [place] RBC (Bld) [#/Vol] 3.43 10*6/uL Low 3.90-5.20 [facility] Comment on above: Order Comment: Speci men Type: BLOOD SPECIMENOrdering Facility: [facility] Address: [address] [place] [address] Performed By: #### 5 8410-2 ####[facility] LABORATORYCLIA [id number] [place] [address] [place] WBC (Bld) [#/Vol] 6.78 10*3/uL Normal 3.70-11.00 [facility] Comment on above: Order Comment: Speci men Type: BLOOD SPECIMENOrdering Facility: [facility] Address: [address] [place] [address] Performed By: #### 5 8410-2 ####[facility] LABORATORYCLIA [id number] [place] [address] [place] CONSULT PROGon 08-02-2024 CONSULT PROG HNO ID: [id number] Author: ECTOR GONZALEZ MD Service: General Surgery [...] - 11.00 (more content not included)... Normal [facility] Calcium.ionized [Moles/Vol]o n 08-02-2024 Calcium.ionized (BldV) [Mass/Vol] 1.13 mmol/L Normal 1.08-1.30 [facility] Comment on above: Order Comment: Speci men Type: BLOOD SPECIMENOrdering Facility: [facility] Address: [address] [place] [address] Performed By: #### 1 995-0 ####[facility] LABORATORYCLIA [id number] [address] Calcium.ionized adjusted to pH 7.4 (Bld) [Moles/Vol] 1.07 mmol/L Low 1.08-1.30 [facility] Comment on above: Order Comment: Speci men Type: BLOOD SPECIMENOrdering Facility: [facility] Address: [address] [place] [address] Performed By: #### 1 995-0 ####[facility] LABORATORYCLIA [id number] [address] Lactate (Bld) [Moles/Vol]on 08-02-2024 Lactate [Moles/Vol] 0.7 mmol/L Normal 0.5-2.2 [facility] Comment on above: Order Comment: Speci men Type: BLOOD SPECIMENOrdering Facility: [facility] Address: [address] [place] [address] Performed By: #### 3 2693-4 ####[facility] LABORATORYCLIA [id number] [address] Magnesium SerPl-mCncon 08-02 Magnesium [Mass/Vol] 1.4 mg/dL Low 1.7-2.3 [facility] Comment on above: Order Comment: Speci men Type: BLOOD SPECIMENOrdering Facility: [facility] Address: [address] [place] [address] Performed By: #### 2 4321-2, 82918-0, 2777-1 ####[facility] LABORATORYCLIA [id number] [place] [id number] [place] NURSING PROGon 08-02-2024 NURSING PROG HNO ID: [id number] Author: DAMEON MASON, RN Service: Nursing Author Type: Registered Nurse Type: Nursing Progress Note Filed: 08/02/2024 23:22 Note Text: Patient saturating 85-87% on 2L [place]. RN increased patient's oxygen to 4L [place] where she is saturating 89-90% and notified . Orders for blood work, CXR, and abdominal XRAY received. Normal [facility] Phosphate SerPl-mCncon 08-02 Phosphate [Mass/Vol] 3.1 mg/dL Normal 2.7-4.8 [facility] Comment on above: Order Comment: Speci hamida Type: BLOOD SPECIMENOrdering Facility: [facility] Address: [address] [place] [address] Performed By: #### 2 4321-2, 91393-3, 2777-1 ####[facility] LABORATORYCLIA [id number] [address] [place] STAPHYLOCOCCUS AUREUS AND MR SA SCREEN, PCR, NASALon 08-02-2024 S. aureus and MRSA panel CHARBEL+probe (Nose) Methicillin-RESISTANT Staphylococcus aureus (MRSA) Detected Abnormal Not Detected [facility] Comment on above: Order Comment: Filipei hamida Type: SWABOrdering Facility: [facility] Address: [address] [place] [address] Performed By: #### S APCR ####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 IMPRESSION: See Result Iron Worker Apprentice: [facility] Transcribe Date/Time: Aug 03 2024 12:51A Dictated by : GENET LEONE MD This examination was interpreted and the report reviewed and electronically signed by: GENET LEONE MD on Aug 03 2024 12:56AM EST [id number] Normal [facility] ALLIED HEALTHon 08-01-2024 ALLIED HEALTH HNO ID: [id number] Author: PAULETTE STAFFORD RT(R) Service: Radiology Author Type: Body And Frame Man Type: Allied Health Filed: 08/01/2024 10:50 Note [...] PATIENT PRESENTS WITH AN IMPLANTABLE OR ATTACHED COMPENSATION ADJUSTER: No ALLERGIES: Reviewed and unchanged CONTRAST ALLERGY: [...] August 01, 2024 TIME: 10:49 AM Normal [facility] Absolute lymphocyte countOrd ered By: Cedric Verde on 08-01-2024 Lymphocytes Auto (Unsp spec) [#/Vol] 1.09 10*3/uL 0.83-4.51 [facility] Absolute neutrophil countOrd ered By: Cedric Verde on 08-01-2024 Neutrophils (Bld) [#/Vol] 6.8 10*3/uL 2.0-7.7 [facility] Activated partial thrombopla stin time (aPTT) in platelet poor plasma by coagulation aOrdered By: Cedric Verde on 08-01-2024 aPTT Coag (PPP) [Time] 28.8 s 24.1-36.2 [facility] Anion gap in Serum or Plasma Ordered By: Cedric Verde on 08-01-2024 Anion gap [Moles/Vol] 12 mmol/L 5-15 [facility] Automated lymphocyte count a s percentage of total leukocytesOrdered By: Cedric Verde on 08-01-2024 Lymphocytes/100 WBC Auto (Unsp spec) 12.0 % Low 19-41 [facility] BUN/creatinine ratioOrdered By: Cedric Verde on 08-01-2024 Urea nitrogen/Creatinine [Mass ratio] 34.0 mg/mg High 10-20 [facility] Basic Metabolic Profile (BMP )on 08-01-2024 BUN/CRE 34.0 RATIO High 10- [facility] Comment on above: Performed By: #### L 506.1000, L502.0500, L100.0100, L500.4100, L501.9985, L500.4050, L503.0105, L509.1000 #### [facility] [address] [place], [address] Calcium [Mass/Vol] 9.5 mg/dL Normal 7.6-11.0 [facility] Comment on above: Performed By: #### L 506.1000, L502.0500, L100.0100, L500.4100, L501.9985, L500.4050, L503.0105, L509.1000 #### [facility] [address] [place], [address] Chloride [Moles/Vol] 98 mmol/L Normal 98-108 [facility] Comment on above: Performed By: #### L 506.1000, L502.0500, L100.0100, L500.4100, L501.9985, L500.4050, L503.0105, L509.1000 #### [facility] [address] [place], [address] CO2 [Moles/Vol] 29.6 mmol/L Normal 21.0-32.0 [facility] Comment on above: Performed By: #### L 506.1000, L502.0500, L100.0100, L500.4100, L501.9985, L500.4050, L503.0105, L509.1000 #### [facility] [address] [place], [address] (075) Creatinine [Mass/Vol] 0.87 mg/dL Normal 0.70-1.20 [facility] Comment on above: Performed By: #### L 506.1000, L502.0500, L100.0100, L500.4100, L501.9985, L500.4050, L503.0105, L509.1000 #### [facility] [address] [place], [address] (720) ECRCL 40.64 ml/min Low 50-250 [facility] Comment on above: Performed By: #### L 506.1000, L502.0500, L100.0100, L500.4100, L501.9985, L500.4050, L503.0105, L509.1000 #### [facility] [address] [place], [address] GAP 12 Normal 5-15 [facility] Comment on above: Performed By: #### L 506.1000, L502.0500, L100.0100, L500.4100, L501.9985, L500.4050, L503.0105, L509.1000 #### [facility] [address] [place], [address] (479) GFR/1.73 sq M.predicted among non-blacks MDRD (S/P/Bld) [Vol rate/Area] 66 mL/min/{1.73_m2} Normal >60 [facility] Comment on above: Result Comment: mL/m in/1.73m2 CKD-EPI Creatinine Equation (2020) Performed By: #### L 506.1000, L502.0500, L100.0100, L500.4100, L501.9985, L500.4050, L503.0105, L509.1000 #### [facility] [address] [place], [address] Glucose [Mass/Vol] 176 mg/dL High 70-99 [facility] Comment on above: Performed By: #### L 506.1000, L502.0500, L100.0100, L500.4100, L501.9985, L500.4050, L503.0105, L509.1000 #### [facility] [address] [place], [address] Potassium [Moles/Vol] 3.7 mmol/L Normal 3.3-5.1 [facility] Comment on above: Performed By: #### L 506.1000, L502.0500, L100.0100, L500.4100, L501.9985, L500.4050, L503.0105, L509.1000 #### [facility] [address] [place], [address] Sodium [Moles/Vol] 140 mmol/L Normal 133-145 [facility] Comment on above: Performed By: #### L 506.1000, L502.0500, L100.0100, L500.4100, L501.9985, L500.4050, L503.0105, L509.1000 #### [facility] [address] [place], [address] Urea nitrogen [Mass/Vol] 30 mg/dL High 4-19 [facility] Comment on above: Performed By: #### L 506.1000, L502.0500, L100.0100, L500.4100, L501.9985, L500.4050, L503.0105, L509.1000 #### [facility] [address] [place], [address] Basic metabolic 2000 panelon 08-01-2024 Anion gap [Moles/Vol] 10 mmol/L Normal 8-15 [facility] Comment on above: Order Comment: Speci men Type: BLOOD SPECIMENOrdering Facility: [facility] Address: [address] [place] [address] Performed By: #### 2 4321-2 ####[facility]ATORYCLIA [id number] [place] [address] [place] Calcium [Mass/Vol] 9.6 mg/dL Normal 8.5-10.2 [facility] Comment on above: Order Comment: Speci men Type: BLOOD SPECIMENOrdering Facility: [facility] Address: [address] [place] [address] Performed By: #### 2 4321-2 ####[facility] LABORATORYCLIA [id number] [place] [address] [place] Chloride [Moles/Vol] 97 mmol/L Low 98-107 [facility] Comment on above: Order Comment: Speci men Type: BLOOD SPECIMENOrdering Facility: [facility] Address: [address] [place] [address] Performed By: #### 2 4321-2 ####[facility]ORATORYCLIA [id number] [place] [address] [place] CO2 [Moles/Vol] 32 mmol/L High 22-30 [facility] Comment on above: Order Comment: Speci men Type: BLOOD SPECIMENOrdering Facility: [facility] Address: [address] [place] [address] Performed By: #### 2 4321-2 ####[facility]ATORYCLIA [id number] [place] [address] [place] Creatinine [Mass/Vol] 0.83 mg/dL Normal 0.58-0.96 [facility] Comment on above: Order Comment: Speci men Type: BLOOD SPECIMENOrdering Facility: [facility] Address: [address] [place] [address] Performed By: #### 2 4321-2 ####[facility] LABORATORYCLIA [id number] [place] [id number] [place] Creatinine and Glomerular filtration rate.predicted panel (S/P/Bld) 70 mL/min/1.73m??? Normal >=60 [facility] Comment on above: Order Comment: Patria mei Type: BLOOD SPECIMENOrdering Facility: [facility] Address: [address] [place] [address] Result Comment: Venita mated Glomerular Filtration Rate [...] actual GFR. Performed By: #### 2 4321-2 ####[facility]ITALIA [id number] [place] [address] [place] Glucose [Mass/Vol] 136 mg/dL High 74-99 [facility] Comment on above: Order Comment: Patria mei Type: BLOOD SPECIMENOrdering Facility: [facility] Address: [address] [place] [address] Result Comment: The [place] [employer] (ADA) provides guidance for cutoff [...] Standards of Medical Care in Diabetes 2016, [place] [employer]. Diabetes Care. 2016.39(Suppl 1). Performed By: #### 2 4321-2 ####[facility] LABORATORYCLIA [id number] [place] [id number] [place] Potassium [Moles/Vol] 3.3 mmol/L Low 3.7-5.1 [facility] Comment on above: Order Comment: Speci men Type: BLOOD SPECIMENOrdering Facility: [facility] Address: [address] [place] [address] Performed By: #### 2 4321-2 ####[facility]ORATORYCLIA [id number] [place] [id number] [place] Sodium [Moles/Vol] 139 mmol/L Normal 136-144 [facility] Comment on above: Order Comment: Speci men Type: BLOOD SPECIMENOrdering Facility: [facility] Address: [address] [place] [address] Performed By: #### 2 4321-2 ####[facility] LABORATORYCLIA [id number] [place] [address] [place] Urea nitrogen [Mass/Vol] 26 mg/dL High 7-21 [facility] Comment on above: Order Comment: Speci men Type: BLOOD SPECIMENOrdering Facility: [facility] Address: [address] [place] [address] Performed By: #### 2 4321-2 ####[facility] LABORATORYCLIA [id number] [place] [address] [place] Basophil percentageOrdered B y: Cedric Verde on 08-01-2024 Basophils/100 WBC (Bld) 0.4 % 0-1 [facility] Brain/Head without Contrasto n 08-01-2024 Brain/Head without Contrast [facility] [address] [place], [place] [id number] Brain/Head without Contrast MR#: [id number] Acct: [id number] Name: TAMICA ANDERSON Rep #: [id number] : 1940 F 84 From: Dileep Britt MD PCP: Dr. Dominique Lang MD Status: PRE ER Study: Brain/Head without Contrast Date of Exam: 07/16 10/09 Exam# [id number] Ordering Dr: Cedric Verde DO PROCEDURE: BRAIN/HEAD [...] bleed at 1:05 a.m. 08/01/2024 Reading Location: [facility] CC: Dr. Dominique Lang MD; Cedric Verde DO Iron Worker Apprentice: Signed Normal [facility] CBC W Auto Differential pane l (Bld)on 08-01-2024 Basophils (Bld) [#/Vol] 0.04 10*3/uL Normal <0.11 [facility] Comment on above: Order Comment: Speci men Type: BLOOD SPECIMENOrdering Facility: [facility] Address: [address] [place] [address] Performed By: #### 5 7021-8 ####[facility] LABORATORYCLIA [id number] [place] [address] [place] Basophils/100 WBC (Bld) 0.4 % Normal [facility] Comment on above: Order Comment: Speci men Type: BLOOD SPECIMENOrdering Facility: [facility] Address: [address] [place] [address] Performed By: #### 5 7021-8 ####[facility]ORATORYCLIA [id number] [address] Differential cell count method Nom (Bld) Auto Normal [facility] Comment on above: Order Comment: Speci men Type: BLOOD SPECIMENOrdering Facility: [facility] Address: [address] [place] [address] Performed By: #### 5 7021-8 ####[facility] LABORATORYCLIA [id number] [address] [place] Eosinophils (Bld) [#/Vol] 0.15 10*3/uL Normal <0.46 [facility] Comment on above: Order Comment: Speci men Type: BLOOD SPECIMENOrdering Facility: [facility] Address: [address] [place] [address] Performed By: #### 5 7021-8 ####[facility] LABORATORYCLIA [id number] [address] Eosinophils/100 WBC (Bld) 1.6 % Normal [facility] Comment on above: Order Comment: Speci men Type: BLOOD SPECIMENOrdering Facility: [facility] Address: [address] [place] [address] Performed By: #### 5 7021-8 ####[facility] LABORATORYCLIA [id number] [address] [place] Erythrocyte distribution width (RBC) [Ratio] 13.1 % Normal 11.5-15.0 [facility] Comment on above: Order Comment: Speci men Type: BLOOD SPECIMENOrdering Facility: [facility] Address: [address] [place] [address] Performed By: #### 5 7021-8 ####[facility]ATORYCLIA [id number] [address] [place] Hematocrit (Bld) [Volume fraction] 34.4 % Low 36.0-46.0 [facility] Comment on above: Order Comment: Speci men Type: BLOOD SPECIMENOrdering Facility: [facility] Address: [address] [place] [address] Performed By: #### 5 7021-8 ####[facility] LABORATORYCLIA [id number] [address] [place] Hemoglobin (Bld) [Mass/Vol] 11.4 g/dL Low 11.5-15.5 [facility] Comment on above: Order Comment: Speci men Type: BLOOD SPECIMENOrdering Facility: [facility] Address: [address] [place] [address] Performed By: #### 5 7021-8 ####[facility] LABORATORYCLIA [id number] [address] [place] Immature granulocytes (Bld) [#/Vol] 0.05 10*3/uL Normal <0.10 [facility] Comment on above: Order Comment: Speci men Type: BLOOD SPECIMENOrdering Facility: [facility] Address: [address] [place] [address] Performed By: #### 5 7021-8 ####[facility] LABORATORYCLIA [id number] [address] Immature granulocytes/100 WBC (Bld) 0.5 % Normal [facility] Comment on above: Order Comment: Speci men Type: BLOOD SPECIMENOrdering Facility: [facility] Address: [address] [place] [address] Performed By: #### 5 7021-8 ####[facility] LABORATORYCLIA [id number] [address] [place] Lymphocytes (Bld) [#/Vol] 1.27 10*3/uL Normal 1.00-4.00 [facility] Comment on above: Order Comment: Speci men Type: BLOOD SPECIMENOrdering Facility: [facility] Address: [address] [place] [address] Performed By: #### 5 7021-8 ####[facility] LABORATORYCLIA [id number] [address] [place] Lymphocytes/100 WBC (Bld) 13.5 % Normal [facility] Comment on above: Order Comment: Speci men Type: BLOOD SPECIMENOrdering Facility: [facility] Address: [address] [place] [address] Performed By: #### 5 7021-8 ####[facility] LABORATORYCLIA [id number] [address] STATES [facility] MCH (RBC) [Entitic mass] 29.9 pg Normal 26.0-34.0 [facility] Comment on above: Order Comment: Speci men Type: BLOOD SPECIMENOrdering Facility: [facility] Address: [address] [place] [address] Performed By: #### 5 7021-8 ####[facility] LABORATORYCLIA [id number] [address] [place] MCHC (RBC) [Mass/Vol] 33.1 g/dL Normal 30.5-36.0 [facility] Comment on above: Order Comment: Speci men Type: BLOOD SPECIMENOrdering Facility: [facility] Address: [address] [place] [address] Performed By: #### 5 7021-8 ####[facility] LABORATORYCLIA [id number] [address] MCV (RBC) [Entitic vol] 90.3 fL Normal 80.0-100.0 [facility] Comment on above: Order Comment: Speci men Type: BLOOD SPECIMENOrdering Facility: [facility] Address: [address] [place] [address] Performed By: #### 5 7021-8 ####[facility] LABORATORYCLIA [id number] [address] Monocytes (Bld) [#/Vol] 0.96 10*3/uL High <0.87 [facility] Comment on above: Order Comment: Speci men Type: BLOOD SPECIMENOrdering Facility: [facility] Address: [address] [place] [address] Performed By: #### 5 7021-8 ####[facility]ORATORYCLIA [id number] [address] [place] Monocytes/100 WBC (Bld) 10.2 % Normal [facility] Comment on above: Order Comment: Speci men Type: BLOOD SPECIMENOrdering Facility: [facility] Address: [address] [place] [address] Performed By: #### 5 7021-8 ####[facility]ORATORYCLIA [id number] [place] [address] [place] Neutrophils (Bld) [#/Vol] 6.91 10*3/uL Normal 1.45-7.50 [facility] Comment on above: Order Comment: Speci men Type: BLOOD SPECIMENOrdering Facility: [facility] Address: [address] [place] [address] Performed By: #### 5 7021-8 ####[facility]ATORYCLIA [id number] [address] [place] Neutrophils/100 WBC (Bld) 73.8 % Normal [facility] Comment on above: Order Comment: Speci men Type: BLOOD SPECIMENOrdering Facility: [facility] Address: [address] [place] [address] Performed By: #### 5 7021-8 ####[facility]ORATORYCLIA [id number] [address] [place] Nucleated RBC (Bld) [#/Vol] 10*3/uL Normal <0.01 [facility] Comment on above: Order Comment: Speci men Type: BLOOD SPECIMENOrdering Facility: [facility] Address: [address] [place] [address] Performed By: #### 5 7021-8 ####[facility]ATORYCLIA [id number] [address] [place] Nucleated RBC/100 WBC (Bld) [Ratio] 0.0 /100 WBC Normal [facility] Comment on above: Order Comment: Speci men Type: BLOOD SPECIMENOrdering Facility: [facility] Address: [address] [place] [address], [place] [address] Performed By: #### 5 7021-8 ####[facility] LABORATORYCLIA [id number] [address] [place] Platelet mean volume (Bld) [Entitic vol] 9.2 fL Normal 9.0-12.7 [facility] Comment on above: Order Comment: Speci men Type: BLOOD SPECIMENOrdering Facility: [facility] Address: [address] [place] [address] Performed By: #### 5 7021-8 ####[facility] LABORATORYCLIA [id number] [address] [place] Platelets (Bld) [#/Vol] 156 10*3/uL Normal 150-400 [facility] Comment on above: Order Comment: Speci men Type: BLOOD SPECIMENOrdering Facility: [facility] Address: [address] [place] [address] Performed By: #### 5 7021-8 ####[facility] LABORATORYCLIA [id number] [address] STATES OF [facility] RBC (Bld) [#/Vol] 3.81 10*6/uL Low 3.90-5.20 [facility] Comment on above: Order Comment: Speci men Type: BLOOD SPECIMENOrdering Facility: [facility] Address: [address] [place] [address] Performed By: #### 5 7021-8 ####[facility] LABORATORYCLIA [id number] [address] [place] WBC (Bld) [#/Vol] 9.38 10*3/uL Normal 3.70-11.00 [facility] Comment on above: Order Comment: Speci men Type: BLOOD SPECIMENOrdering Facility: [facility] Address: [address] [place] [address] Performed By: #### 5 7021-8 ####[facility] LABORATORYCLIA [id number] [place] [address] [place] CBC W/Diff, Automatedon 05-1 Absolute Lymph 1.09 X10 3/uL Normal 0.83-4.51 [facility] Comment on above: Performed By: #### L 506.1000, L502.0500, L100.0100, L500.4100, L501.9985, L500.4050, L503.0105, L509.1000 #### [facility] [address] [facility] [place], [address] Absolute Neut 6.8 X10 3/uL Normal 2.0-7.7 [facility] Comment on above: Performed By: #### L 506.1000, L502.0500, L100.0100, L500.4100, L501.9985, L500.4050, L503.0105, L509.1000 #### [facility] [address] [facility] [place], [address] Basophils/100 WBC (Bld) 0.4 % Normal 0-1 [facility] Comment on above: Performed By: #### L 506.1000, L502.0500, L100.0100, L500.4100, L501.9985, L500.4050, L503.0105, L509.1000 #### [facility] [address] [facility] [place], [address] Eosinophils/100 WBC (Bld) 2.5 % Normal 0-5 [facility] Comment on above: Performed By: #### L 506.1000, L502.0500, L100.0100, L500.4100, L501.9985, L500.4050, L503.0105, L509.1000 #### [facility] [address] [place], [address] Erythrocyte distribution width (RBC) [Ratio] 13.0 % Normal 11.6-14.6 [facility] Comment on above: Performed By: #### L 506.1000, L502.0500, L100.0100, L500.4100, L501.9985, L500.4050, L503.0105, L509.1000 #### [facility] [address] [place], [address] Hematocrit (Bld) [Volume fraction] 33.8 % Low 37-47 [facility] Comment on above: Performed By: #### L 506.1000, L502.0500, L100.0100, L500.4100, L501.9985, L500.4050, L503.0105, L509.1000 #### [facility] [address] [place], [address] Hemoglobin (Bld) [Mass/Vol] 11.2 g/dL Low 12.0-15.0 [facility] Comment on above: Performed By: #### L 506.1000, L502.0500, L100.0100, L500.4100, L501.9985, L500.4050, L503.0105, L509.1000 #### [facility] [address] [place], [address] IG% 0.600 Normal 0.0-0.9 [facility] Comment on above: Result Comment: IG% - Immature Granulocytes (promyelocytes, myelocytes and metamyelocytes) > 1% indicates that a LEFT SHIFT is Present. Performed By: #### L 506.1000, L502.0500, L100.0100, L500.4100, L501.9985, L500.4050, L503.0105, L509.1000 #### [facility] [address] [place], [address] Lymphocytes/100 WBC (Bld) 12.0 % Low 19-41 [facility] Comment on above: Performed By: #### L 506.1000, L502.0500, L100.0100, L500.4100, L501.9985, L500.4050, L503.0105, L509.1000 #### [facility] [address] [place], [address] MCH (RBC) [Entitic mass] 29.6 pg Normal 27.0-32.0 [facility] Comment on above: Performed By: #### L 506.1000, L502.0500, L100.0100, L500.4100, L501.9985, L500.4050, L503.0105, L509.1000 #### [facility] [address] [place], [address] MCHC (RBC) [Mass/Vol] 33.1 g/dL Normal 32-36 [facility] Comment on above: Performed By: #### L 506.1000, L502.0500, L100.0100, L500.4100, L501.9985, L500.4050, L503.0105, L509.1000 #### [facility] [address] [place], [address] MCV (RBC) [Entitic vol] 89.2 fL Normal 81-99 [facility] Comment on above: Performed By: #### L 506.1000, L502.0500, L100.0100, L500.4100, L501.9985, L500.4050, L503.0105, L509.1000 #### [facility] [address], [address] Monocytes/100 WBC (Bld) 9.5 % Normal 0-10 [facility] Comment on above: Performed By: #### L 506.1000, L502.0500, L100.0100, L500.4100, L501.9985, L500.4050, L503.0105, L509.1000 #### [facility] [address] [place], [address] Neutrophils/100 WBC (Bld) 75.0 % High 47-70 [facility] Comment on above: Performed By: #### L 506.1000, L502.0500, L100.0100, L500.4100, L501.9985, L500.4050, L503.0105, L509.1000 #### [facility] [address] [place], [address] Nucleated RBC (Bld) [#/Vol] 0 10*3/uL Normal 0-5 [facility] Comment on above: Performed By: #### L 506.1000, L502.0500, L100.0100, L500.4100, L501.9985, L500.4050, L503.0105, L509.1000 #### [facility] [address] [place], [address] Platelet mean volume (Bld) [Entitic vol] 9.2 fL Normal 6.2-12.0 [facility] Comment on above: Performed By: #### L 506.1000, L502.0500, L100.0100, L500.4100, L501.9985, L500.4050, L503.0105, L509.1000 #### [facility] [address] [place], [address] Platelets (Bld) [#/Vol] 157 10*3/uL Normal 150-450 [facility] Comment on above: Performed By: #### L 506.1000, L502.0500, L100.0100, L500.4100, L501.9985, L500.4050, L503.0105, L509.1000 #### [facility] [address] [place], [address] RBC (Bld) [#/Vol] 3.79 10*6/uL Low 4.2-5.4 [facility] Comment on above: Performed By: #### L 506.1000, L502.0500, L100.0100, L500.4100, L501.9985, L500.4050, L503.0105, L509.1000 #### [facility] [address] [place], [address] RDW SD 42.5 fl Normal 35.1-43.9 [facility] Comment on above: Performed By: #### L 506.1000, L502.0500, L100.0100, L500.4100, L501.9985, L500.4050, L503.0105, L509.1000 #### [facility] [address] [place], [address] WBC (Bld) [#/Vol] 9.1 10*3/uL Normal 4.4-11.0 [facility] Comment on above: Performed By: #### L 506.1000, L502.0500, L100.0100, L500.4100, L501.9985, L500.4050, L503.0105, L509.1000 #### [facility] [address] [facility] [address] [place], [place], [address] CONSULTon 08-01-2024 CONSULT HNO ID: [id number] Author: MARTÍN MCCARTHY MD Service: Neurosurgery Author Type: Nurse Practitioner Type: Consults Filed: 08/02/2024 11:08 Note Text: Attestation signed by Martín Mccarthy MD at 08/02/2024 11:08 AM Attending Note I reviewed pertinent patient history and examination performed by PA/CONTRACTOR BUYER, relevant laboratory results and imaging studies. Unless [...] flush bag 20 mL INTRAVENOUS PRN Kelle Simeon, DO iv contrast (radiology procedure) INTRAVENOUS DIRECTED [...] mEq/100 mL 20 mEq INTRAVENOUS PRN Ericka Ontiveros, sodium phosphate 30 mmol in D5W 250 mL 30 mmol INTRAVENOUS PRN(NO DISPENSE) Ericka Ontiveros DO Or sodium phosphate 45 mmol in D5W 250 mL 45 mmol INTRAVENOUS PRN(NO DISPENSE) Ericka Ontiveros, magnesium sulfate iv piggyback in sterile water 2 g 50 mL 2 g INTRAVENOUS PRN Ericka Ontiveros, calcium gluconate iv piggyback 2 g in NaCl (iso-osmotic) 100 mL 2 g INTRAVENOUS PRN(NO DISPENSE) Ericka Ontiveros, dextrose 15 gram/32 mL 15 g (TRUEPLUS) [...] BUN 26* (more content not included)... Normal [facility] CONSULT HNO ID: [id number] Author: ECTOR GONZALEZ MD Service: General Surgery [...] a SDH w/possible SAH prompting transfer to [facility] for further evaluation. Pt has [...] Chronic ap (more content not included)... Normal [facility] CT ABD/PEL W IVCONon 08-01-[address] ABD/PEL W IVCON * * *Final Report* * * DATE OF EXAM: Aug 01 2024 10:53AM [facility] 0530 - CT ABD/PEL W IVCON / [...] traumatic injury to the abdomen or pelvis Iron Worker Apprentice: [facility] Transcribe Date/Time: Aug 01 2024 11:22A Dictated by : MACARENA ROBLES MD This examination was interpreted and the report reviewed and electronically signed by: MACARENA ROBLES MD on Aug 01 2024 11:24AM EST [id number] Normal [facility] CT BRAIN WO IVCONon 08-02-19 CT BRAIN WO IVCON * * *Final Report* * * DATE OF EXAM: Aug 01 2024 8:21PM [facility] 0504 - CT BRAIN WO IVCON / [...] fractures with suspected anterior nasal septal hematoma. Iron Worker Apprentice: PSCB Transcribe Date/Time: Aug 01 2024 8:38P Dictated by : SUSANA GUPTA MD This examination was interpreted and the report reviewed and electronically signed by: SUSANA GUPTA MD on Aug 01 2024 8:43PM EST [id number] Normal [facility] CT BRAIN WO IVCON * * *Final Report* * * DATE OF EXAM: Aug 01 2024 10:53AM [facility] 0504 - CT BRAIN WO IVCON / [...] hemorrhage in the anterior inferior frontal lobes Iron Worker Apprentice: PABLO Transcribe Date/Time: Aug 01 2024 11:14A Dictated by : MACARENA ROBLES MD This examination was interpreted and the report reviewed and electronically signed by: MACARENA ROBLES MD on Aug 01 2024 11:17AM EST [id number] Normal [facility] CT CHEST W IVCONon 5 CT CHEST W IVCON * * *Final Report* * * DATE OF EXAM: Aug 01 2024 10:53AM [facility] 0539 - CT CHEST W IVCON / [...] of acute traumatic abnormality of the chest. Iron Worker Apprentice: PABLO Transcribe Date/Time: Aug 01 2024 11:17A Dictated by : MACARENA ROBLES MD This examination was interpreted and the report reviewed and electronically signed by: MACARENA ROBLES MD on Aug 01 2024 11:21AM EST [id number] Normal [facility] CT LUMBAR SPINE W RECON DATA -NBon 08-01-2024 CT LUMBAR SPINE W RECON DATA -NB * * *Final Report* * * DATE OF EXAM: Aug 01 2024 10:53AM [facility] 0481 - CT LUMBAR SPINE W RECON [...] L4-5 is at the iliac crest level [employer] Service Technician (topogram) images: Alignment: Alignment is anatomic. Bone [...] L4-5 is at the iliac crest level [employer] Service Technician (topogram) images: Alignment: Grade 1 anterolisthesis L4-5 [...] stenosis Anatomic Thoracic/Lumbar Variant: Lumbarization S1 vertebrae Iron Worker Apprentice: [facility] Transcribe Date/Time: Aug 01 2024 11:24A Dictated by : MACARENA ROBLES MD This examination was interpreted and the report reviewed and electronically signed by: MACARENA ROBLES MD on Aug 01 2024 11:30AM EST [id number] Normal [facility] CT T-SPINE W RECON DATA -NBo n 08-01-2024 CT T-SPINE W RECON DATA -NB * * *Final Report* * * DATE OF EXAM: Aug 01 2024 10:53AM [facility] 0485 - CT T-SPINE W RECON DATA [...] L4-5 is at the iliac crest level [employer] Service Technician (topogram) images: Alignment: Alignment is anatomic. Bone [...] L4-5 is at the iliac crest level [employer] Service Technician (topogram) images: Alignment: Grade 1 anterolisthesis L4-5 [...] stenosis Anatomic Thoracic/Lumbar Variant: Lumbarization S1 vertebrae Iron Worker Apprentice: [facility] Transcribe Date/Time: Aug 01 2024 11:24A Dictated by : MACARENA ROBLES MD This examination was interpreted and the report reviewed and electronically signed by: MACARENA ROBLES MD on Aug 01 2024 11:30AM EST [id number] Normal [facility] Carbon dioxide, total [Moles /volume] in Central venous bloodOrdered By: Cedric Verde on 08-01-2024 CO2 [Moles/Vol] 29.6 mmol/L 21.0-32.0 [facility] Chest without Contraston Chest without Contrast [facility] Imaging Services [address] [place] [address] Chest without Contrast MR#: [id number] Acct: [id number] Name: TAMICA ANDERSON Rep #: [id number] : 1940 F 84 From: Dileep Britt MD PCP: Dr. Dominique Lang MD Status: REG ER Study: Chest without Contrast Date of Exam: 08/01/24 Exam# [id number] Ordering Dr: Cedric Verde DO PROCEDURE: CHEST [...] imaging. Other findings as above. Reading Location: [facility] CC: Dr. Dominique Lang MD; Cedric Verde DO Iron Worker Apprentice: Signed Normal [facility] Chloride assayOrdered By: Do Verde on 08-01-2024 Chloride [Moles/Vol] 98 mmol/L 98-108 [facility] ED NOTEon 08-01-2024 ED NOTE HNO ID: [id number] Author: MELISSA LEMON RN Service: ? Author Type: Registered Nurse Type: ED Notes Filed: 08/01/2024 21:18 Note Text: RC to Ryan RN SICU [facility] ED NOTE HNO ID: [id number] Author: MELISSA LEMON RN Service: ? Author Type: Registered Nurse Type: ED Notes Filed: 08/01/2024 19:32 Note Text: CT notified [facility] ED NOTE HNO ID: [id number] Author: SARAH WETZEL RN Service: Nursing Author Type: Registered Nurse Type: ED Notes Filed: 08/01/2024 18:51 Note Text: Bed change done. Pt. Repositioned for comfort. [facility] ED NOTE HNO ID: [id number] Author: SARAH WETZEL RN Service: Nursing Author Type: Registered Nurse Type: ED Notes Filed: 08/01/2024 17:44 Note Text: Right skin tear redressed. Pt. Repositioned. [facility] ED NOTE HNO ID: [id number] Author: SARAH WETZEL RN Service: Nursing Author Type: Registered Nurse Type: ED Notes Filed: 08/01/2024 16:43 Note Text: Pt. Removed oxygen tent. Pulse ox 93% on RA. Placed on 2 L NC. Trauma at bedside. [facility] ED NOTE HNO ID: [id number] Author: SARAH WETZEL RN Service: Nursing Author Type: Registered Nurse Type: ED Notes Filed: 08/01/2024 16:42 Note Text: CT called. [facility] ED NOTE HNO ID: [id number] Author: SARAH WETZEL RN Service: Nursing Author Type: Registered Nurse Type: ED Notes Filed: 08/01/2024 12:39 Note Text: Pt. Awake and on phone. Hands and face cleaned up. Clean, warm blankets given. No active bleeding at this time. [facility] ED NOTE HNO ID: [id number] Author: SARAH WETZEL RN Service: Nursing Author Type: Registered Nurse Type: ED Notes Filed: 08/01/2024 12:19 Note Text: Pt. Placed on tent mask per respiratory. Oxygen saturation 99%. Pt. Tolerating well. Awaiting neurosurgery to see. [facility] ED NOTE HNO ID: [id number] Author: SARAH WETZEL RN Service: Nursing Author Type: Registered Nurse Type: ED Notes Filed: 08/01/2024 11:35 Note Text: Respiratory to see pt. To assist with oxygen. [facility] ED NOTE HNO ID: [id number] Author: SARAH WETZEL RN Service: Nursing Author Type: Registered Nurse Type: ED Notes Filed: 08/01/2024 11:24 Note Text: Pt. 89% on [address] Moore aware. No further orders. [facility] ED NOTE HNO ID: [id number] Author: SARAH WETZEL RN Service: Nursing Author Type: Registered Nurse Type: ED Notes Filed: 08/01/2024 11:06 Note Text: Pt. Oxygen saturation 88% on 4 LNC. Oxygen increased to 6 L NC. Clots noted to mouth. Dr. Moore aware. [facility] ED NOTE HNO ID: [id number] Author: SARAH WETZEL RN Service: Nursing Author Type: Registered Nurse Type: ED Notes Filed: 08/01/2024 09:03 Note Text: CT called for add on scans. [facility] ED NOTE HNO ID: [id number] Author: SARAH WETZEL RN Service: Nursing Author Type: Registered Nurse Type: ED Notes Filed: 08/01/2024 08:15 Note Text: Pt. On slabber. [facility] ED NOTE HNO ID: [id number] Author: SARAH WETZEL RN Service: Nursing Author Type: Registered Nurse Type: ED Notes Filed: 08/01/2024 07:39 Note Text: CT called. [facility] ED NOTE HNO ID: [id number] Author: MALU IRENE RN Service: Emergency Medicine Author Type: Registered Nurse Type: ED Notes Filed: 08/01/2024 06:16 Note Text: Pt trying to sleep on assessment. Pt spo2 89%. Pt denies SOB. Pt placed on 4LNC Normal [facility] ED PROGRESS NOTE (PROVIDER)o n 08-01-2024 ED PROGRESS NOTE (PROVIDER) HNO ID: [id number] Author: ANNA CADET MD Service: Emergency Medicine Author Type: Physician Type: ED PROGRESS NOTE (PROVIDER) Filed: 08/01/2024 14:16 Note Text: ED CONTINUATION OF CARE NOTE Code Status: Full Code Assumed care from: Dr. Simeon Presentation / Findings / Interventions / Plan / Items to Follow Up: In short, this is an 84-year-old female presenting to the hospital from [place] as a transfer for neurosurgery trauma evaluation. [...] ED Course as of 08/01/24 1314 Dionisio Moore's Documentation Sat August 01, 2024 1119 Trauma [...] is an 84-year-old female patient transferred from [facility] for neurosurgery/trauma evaluation. The patient reportedly has [...] Index [AR] Briseyda Mosquera MD [SUSY] Kelle Simeon DO Clinical Impressions as of 08/01/24 1314 Subdural hematoma (HCC) Fall, sequela Closed fracture of nasal bone, initial encounter Lip laceration, initial encounter Medical Decision Making The patient is an 84-year-old female who presents to the ED as a transfer from [facility] for neurosurgery and trauma evaluation due to [...] MD Date: 08/01/2024 Time: 2:16 PM Normal [facility] ED PROV NOTEon 08-01-2024 ED PROV NOTE HNO ID: [id number] Author: ANNA CADET MD Service: Emergency Medicine [...] trauma team. ANNA CADET 08/01/24 1312 Normal [facility] ED PROV NOTE HNO ID: [id number] Author: BRISEYDA MOSQUERA MD Service: Emergency Medicine Author Type: Physician Type: ED Provider Notes Filed: 08/01/2024 23:31 Note Text: ED Provider Note Patient Name: Tamica Anderson : 1940 SERVICE DATE: 08/01/24 History Patient presents with: Functional Transfers: From [place] via EMS after 6 falls since . Pt tripped on walker in the kitchen landing on her face. Pt has multiple bruising all over her body in different stages of healing. Pt pt has a broken nose and laceration to her lip. Pt denies LOC or blood thinners. HPI 84-year-old female presents emergency department as a transfer from the [place] ER for multiple falls over the last [...] by medical provider. She presented to the [facility] ER and found to have a [...] No Known Allergies Review of Systems See HPI for further details Physical Exam Vitals [08/01/24 [...] Impression ED Course as of 08/01/24 2330 mariamBriseyda's Documentation Sat August 01, 2024 0614 Attending [...] is an 84-year-old female patient transferred from [facility] for neurosurgery/trauma evaluation. The patient reportedly has fallen multiple times over the last couple weeks. She presented to the emergency department (more content not included)... Normal [facility] Emergency Department Summary on 08-01-2024 Emergency Department Summary [facility] Medical Records Department [address] [place] [address] Emergency Department Summary 08/01/24 MR#: [id number] Acct: [id number] Name: TAMICA ANDERSON Rep #: [id number] : 1940 84 From: Cedric Verde DO [...] thinner such as Eliquis Coumadin or Xarelto. 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 Normal [facility] Eosinophil percentageOrdered By: Cedric Verde on 08-01-2024 Eosinophils/100 WBC (Bld) 2.5 % 0-5 [facility] Erythrocyte distribution wid th ratioOrdered By: Cedric Verde on 08-01-2024 Erythrocyte distribution width (RBC) [Ratio] 13.0 % 11.6-14.6 [facility] Erythrocyte distribution wid th standard deviationOrdered By: Cedric Verde on 08-01-2024 Erythrocyte distribution width (RBC) [Ratio] 42.5 fl 35.1-43.9 [facility] Glomerular filtration rate ( GFR) estimation/1.73 sq m using serum, plasma, or whole bOrdered By: Cedric Verde on 08-01-2024 GFR/1.73 sq M.predicted among non-blacks MDRD (S/P/Bld) [Vol rate/Area] 66 mL/min/{1.73_m2} >60 [facility] Comment on above: mL/min/1.73m2 CKD-EP I Creatinine Equation (2020) HISTORY PHYSICALon HISTORY PHYSICAL HNO ID: [id number] Author: BUCK SAAVEDRA MD Service: General Surgery [...] Saavedra MD Delayed entry TRAUMA SURGERY HANDP [facility] ARRIVAL DATE: 08/01/2024 CONSULT INJURY DATE: Subjective [...] a SDH w/possible SAH prompting transfer to [facility] for further evaluation. Pt has [...] BACK/SPINE: [place] (more content not included)... Normal [facility] Hematocrit Auto (Bld) [Volum e fraction]Ordered By: Cedric Verde on 08-01-2024 Hematocrit (Bld) [Volume fraction] 33.8 % Low 37-47 [facility] Hemoglobin measurementOrdere d By: Cedric Verde on 08-01-2024 Hemoglobin (Bld) [Mass/Vol] 11.2 g/dL Low 12.0-15.0 [facility] Immature granulocytes/100 WB C Auto (Bld)Ordered By: Cedric Verde on 08-01-2024 Immature granulocytes/100 WBC (Bld) 0.600 % 0.0-0.9 [facility] Comment on above: IG% - Immature Granu locytes (promyelocytes, myelocytes and metamyelocytes) > 1% indicates that a LEFT SHIFT is Present. International normalized rat io (INR) calculationOrdered By: Cedric Verde on 08-01-2024 INR Coag (Bld) [Relative time] 1.1 {INR} [facility] MCV (mean corpuscular volume ) determinationOrdered By: Cedric Verde on 08-01-2024 MCV (RBC) [Entitic vol] 89.2 fL 81-99 [facility] Mean corpuscular hemoglobin (MCH) determinationOrdered By: Cedric Verde on 08-01-2024 MCH (RBC) [Entitic mass] 29.6 pg 27.0-32.0 [facility] Mean corpuscular hemoglobin concentration (MCHC) determinationOrdered By: Cedric Verde on 08-01-2024 MCHC (RBC) [Mass/Vol] 33.1 g/dL 32-36 [facility] Mean platelet volume determi nationOrdered By: Cedric Verde on 08-01-2024 Platelet mean volume (Bld) [Entitic vol] 9.2 fL 6.2-12.0 [facility] Monocyte percentageOrdered B y: Cedric Verde on 08-01-2024 Monocytes/100 WBC (Bld) 9.5 % 0-10 [facility] Neutrophil percentageOrdered By: Cedric Verde on 08-01-2024 Neutrophils/100 WBC (Bld) 75.0 % High 47-70 [facility] Nucleated red blood cell per centageOrdered By: Cedric Verde on 08-01-2024 Nucleated RBC/100 WBC (Bld) [Ratio] 0 % 0-5 [facility] PT panel Coag (PPP)on 2024 INR Coag (PPP) [Relative time] 1.1 {INR} Normal 0.9-1.3 [facility] Comment on above: Order Comment: Speci men Type: BLOOD SPECIMENOrdering Facility: [facility] Address: [address] [place] [address] [address], [place] [address] Result Comment: Justyna min K Antagonist (VKA) Therapeutic Range: INR 2 to 3 (Target INR of 2.5) Note: For patients treated with VKA drugs, such as warfarin, the [place] [employer] 2012 Guideline recommends [...] to 3.5 (target INR of 3). Janet GH, et al. Chest 2012, 141:7S-47S Ankush RA et al. [facility] 2017, 70: 252-289 Performed By: #### 1 4979-9, 83705-1 ####[facility] [id number] [place] [address] [place] PT Coag (PPP) [Time] 11.7 s Normal 9.7-13.0 [facility] Comment on above: Order Comment: Speci men Type: BLOOD SPECIMENOrdering Facility: [facility] Address: [address] [place] [address] Performed By: #### 1 4979-9, 83037-6 ####[facility] LABORATORYCLIA [id number] [place] [address] [place] Partial Thromboplast Timeon 08-01-2024 aPTT Coag (Bld) [Time] 28.8 s Normal 24.1-36.2 [facility] Comment on above: Performed By: #### L 506.1000, L502.0500, L100.0100, L500.4100, L501.9985, L500.4050, L503.0105, L509.1000 #### [facility] [address] [facility] [place], [address] Pelvis 1 or 2 Viewson 2024 Pelvis 1 or 2 Views [facility] Imaging Services [address] [place], [place] [address] Pelvis 1 or 2 Views MR#: [id number] Acct: [id number] Name: TAMICA ANDERSON Rep #: [id number] : 1940 F 84 From: Dileep Britt MD PCP: Dr. Dominique Lang MD Status: PRE ER Study: Pelvis 1 or 2 Views Date of Exam: 08/01/24 Exam# [id number] Ordering Dr: Cedric Verde DO PROCEDURE: PELVIS [...] No fracture or dislocation identified. Reading Location: [facility] CC: Dr. Dominique Lang MD; Cedric Verde DO Iron Worker Apprentice: Signed Normal [facility] Platelet countOrdered By: Do Verde on 08-01-2024 Platelets (Bld) [#/Vol] 157 10*3/uL 150-450 [facility] Potassium measurement (mass/ volume)Ordered By: Cedric Verde on 08-01-2024 Potassium (Unsp spec) [Mass/Vol] 3.7 mmol/L 3.3-5.1 [facility] Prothrombin Time w/INRon INR Coag (PPP) [Relative time] 1.1 {INR} Normal [facility] Comment on above: Performed By: #### L 506.1000, L502.0500, L100.0100, L500.4100, L501.9985, L500.4050, L503.0105, L509.1000 #### [facility] Laboratory [address] [place], [address] PT Coag (PPP) [Time] 14.3 s Normal 11.7-14.9 [facility] Comment on above: Performed By: #### L 506.1000, L502.0500, L100.0100, L500.4100, L501.9985, L500.4050, L503.0105, L509.1000 #### [facility] [address] [place], [address] Prothrombin timeOrdered By: Cedric Verde on 08-01-2024 PT Coag (PPP) [Time] 14.3 s 11.7-14.9 [facility] RBC Auto (Bld) [#/Vol]Ordere d By: Cedric Verde on 08-01-2024 RBC (Bld) [#/Vol] 3.79 10*6/uL Low 4.2-5.4 [facility] Serum creatinine measurement (mass/volume)Ordered By: Cedric Verde on 08-01-2024 Creatinine [Mass/Vol] 0.87 mg/dL 0.70-1.20 [facility] Serum glucose measurement (m ass/volume)Ordered By: Cedric Verde on 08-01-2024 Glucose [Mass/Vol] 176 mg/dL High 70-99 [facility] Serum or plasma calcium chris urement (mass/volume)Ordered By: Cedric Verde on 08-01-2024 Calcium [Mass/Vol] 9.5 mg/dL 7.6-11.0 [facility] Serum or plasma urea nitroge n measurement (mass/volume)Ordered By: Cedric Verde on 08-01-2024 Urea nitrogen [Mass/Vol] 30 mg/dL High 4-19 [facility] Sinus/Facial Boneon 08-02-19 25 Sinus/Facial Bone [facility] Imaging Services [address] [place], [place] [id number] Sinus/Facial Bone MR#: [id number] Acct: [id number] Name: TAMICA ANDERSON Rep #: [id number] : 1940 F 84 From: Dileep Britt MD PCP: Dr. Dominique Lang MD Status: REG ER Study: Sinus/Facial Bone Date of Exam: 08/01/24 Exam# [id number] Ordering Dr: Cedric Verde DO PROCEDURE: SINUS/FACIAL [...] intact without retro bulbar stranding. Reading Location: [facility] CC: Dr. Dominique Lang MD; Cedric Verde DO Iron Worker Apprentice: Signed Normal [facility] Sodium levelOrdered By: Jakob Verde on 08-01-2024 Sodium [Moles/Vol] 140 mmol/L 133-145 [facility] Spine Cervical without Contr ason 08-01-2024 Spine Cervical without Contras [facility] Imaging Services [address] [place] [address] Spine Cervical without Contras MR#: [id number] Acct: [id number] Name: TAMICA ANDERSON Rep #: [id number] : 1940 F 84 From: Dileep Britt MD PCP: Dr. Dominique Lang MD Status: REG ER Study: Spine Cervical without Contras Date of Exam: 0 08/01/24 Exam# [id number] Ordering Dr: Cedric Verde DO PROCEDURE: SPINE [...] Bilateral C3-4 facet degenerative changes. Reading Location: [facility] CC: Dr. Dominique Lang MD; Cedric Verde DO Iron Worker Apprentice: Signed Normal [facility] TYPE + SCREENon 08-01-2024 ABO B Normal [facility] Comment on above: Order Comment: Speci men Type: BLOOD SPECIMENOrdering Facility: [facility] Address: [address] [place] [address] Performed By: #### T SCR ####[facility] BLOOD BANKCLIA [id number] [place] Rh Nom (Bld) Positive Normal [facility] Comment on above: Order Comment: Speci men Type: BLOOD SPECIMENOrdering Facility: [facility] Address: [address] [place] [address] Performed By: #### T SCR ####[facility] BLOOD BANKCLIA [id number] [place] [address] [place] TYPE AND SCREEN EXPIRATION 08/04/2024 23:59 Normal [facility] Comment on above: Order Comment: Speci men Type: BLOOD SPECIMENOrdering Facility: [facility] Address: [address] [place] [address] Performed By: #### T SCR ####[facility] BLOOD BANKCLIA [id number] [place] [id number] [place] OF [facility] White blood cell (WBC) count Ordered By: Cedric Verde on 08-01-2024 WBC (Bld) [#/Vol] 9.1 10*3/uL 4.4-11.0 [facility] aPTT PPPon 08-01-2024 aPTT Coag (PPP) [Time] 25.9 s Normal 23.0-32.4 [facility] Comment on above: Order Comment: Speci men Type: BLOOD SPECIMENOrdering Facility: [facility] Address: [address] [place] [address] Performed By: #### 1 4979-9, 33310-5 ####[facility] LABORATORYCLIA [id number] [address] [place] Echo Complete W/ Contraston 07-24-2024 Echo Complete W/ Contrast [facility] [address] [place] [address] Echo Complete W/ Contrast 07/24/24 1200 MR#: [id number] Acct: [id number] Name: TAMICA ANDERSON Rep #: [id number] : 1940 84 From: Rohan Chavez MD Attending Dr: Nargis Prajapati NP-C Status: RE G CLI Ordering Dr: Nargis Prajapati NP CONTRACTOR BUYER-C Date: Location: [facility] Sex: F C Admitted: Reason For Study [...] By: Paris Christie RDCS 07/24/24 1309 Date Rohan Chavez MD CC: CONTRACTOR BUYER-C Nargis Prajapati; Dr. Dominique Lang MD Date Dictated: 07/24/24 1200 Date Transcribed: 07/24/24 1309 Iron Worker Apprentice: Signed Normal [facility] Echocardiogram study reportO rdered By: Rohan Chavez on 07-24-2024 Study report [facility] Cardi[facility] Services [address] [place] [address] Echo Complete W/ Contrast 07/24/24 1200 MR#: [id number] Acct: [id number] Name: TAMICA ANDERSON Rep #:[id number] : 1940 84 From: Rohan Chavez MD Attending Dr: Nargis Prajapati, ANISAC Status: REG CLI Ordering Dr: Nargis Prajapati NP CONTRACTOR BUYER-C Date: 07/24/24 Location: [facility] Sex: F C Admitted: Reason For Study [...] 1309 Date _ Rohan Chavez MD CC: CONTRACTOR BUYER-Zoila Prajapati; Dr. Dominique Lang MD ~ Date Dictated: 07/24/24 1200 Date Transcribed: 07/24/24 1309 Iron Worker Apprentice: Signed [facility] Work Phone: Pulmonary Visit Reporton Pulmonary Visit Report [facility] [place] [address] [place] [address] OFFICE VISIT Date of Service: 06/30/24 MR#: [id number] Acct: [id number] Name: TAMICA ANDERSON Rep #: [id number] : 1940 Provider: IDA Prajapati Age/Sex: 84/F [place] [facility] [place] Status: Signed Assessment and Plan [...] breath Plan Details Follow Up: 1 Month ([facility]) HPI 3 M FU Chief Complaint: For [...] 3 M FU Chief Complaint: right clavicle Shift Leader Required: No DME Vendor: Marychuy Accompanied by: Granddaughter Allergies adhesive tape Adverse Reaction (Verified 06/30/24 15:05) Unknown morphine Adverse Reaction (Verified 06/30/24 15:05) Vomiting Pxrfnkr-TVP-YeS Reductase Inhibitor (Dbcocck-Iac-Dmr Reductase Inhibitor) Adverse Reaction (Verified 06/30/24 15:05) [...] nasal s (more content not included)... Normal [facility] Cardiology Visit Reporton Cardiology Visit Report [facility] [address] [place] [address] OFFICE VISIT Date of Service: 06/16/24 MR#: [id number] Acct: [id number] Name: TAMICA ANDERSON Rep #: [id number] : 1940 Provider: LUZ Beltre Age/Sex: 84/F [place] [facility] [place] Status: Signed HPI HPI History of Present [...] air Intake Visit Reasons: 6 M FU Shift Leader Required: No Is patient in pain?: No Allergies adhesive tape Adverse Reaction (Verified 06/16/24 13:18) Unknown morphine Adverse Reaction (Verified 06/16/24 13:18) Vomiting [place]awctez-OAQ-TvA Reductase Inhibitor (Klxsdps-Cmo-Ver Reductase Inhibitor) Adverse Reaction (Verified 06/16/24 13:18) [...] forward when bending to pick something u) PFSH Medical History Impingement of left shoulder Intertriginous candidiasis Incontinence Physical debility CPAP (continuous positive airway pressure) dependence Sleep apnea Fracture of right wrist with routine healing Obesity Right bundle branch block (RBBB) KATTY (obstructive sleep apnea) Pancreatitis Diabetes mellitus GERD (gastroesophageal reflux disease) HLD (hyperlipidemia) Essential (primary) hypertension 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 Surgical History Fracture of left hip requiring operative repair Status post cardiac surgery Hx of hysterectomy Hx of cholecystectomy Hx of appendectomy History of coronary artery stent placement (11/17/14) 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) Family History Mother Hypertension Other CAD (coronary artery disease) Social History household mem (more content not included)... Normal [facility] Gastric Emptying Studyon Gastric Emptying Study [facility] Imaging Services [address] [place] [address] [id number] Gastric Emptying Study MR#: [id number] Acct: [id number] Name: TAMICA ANDERSON Rep #: [id number] : 1940 F 84 From: Matt lipscomb MD PCP: Dr. Dominique Lang MD Status: REG CLI Study: Gastric Emptying Study Date of Exam: 06/01/24 Exam# [id number] Ordering Dr: Dominique Lang MD PROCEDURE: GASTRIC [...] IMPRESSION: Normal gastric emptying scan. Reading Location: [place] [address] CC: Dr. 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: Signed Normal [facility] Vitamin D,25 Hydroxyon 05-07 Vitamin D 25-OH 98.2 ng/mL Normal [facility] Comment on above: Order Comment: Order Date: 05/05/24 Order Info: 9 - B12 Order Info: [id number] - VITD25 Result Comment: Justyna min D 25(OH) Status Range Deficiency <20 ng/mL (50nmol/L) Insufficiency 20 - 30 ng/mL (50 - 75 nmol/L) Sufficiency 30 - 100 ng/mL (75 - 250 nmol/L) Toxicity >100 ng/mL (>250 nmol/L) Performed By: #### L 506.1000, L502.0500, L100.0100, L500.4100, L501.9985, L500.4050, L503.0105, L509.1000 #### [facility] Laboratory [address] [place], [address] Vitamin B12on 05-06-2024 Cobalamin (Vitamin B12) [Mass/Vol] 579 pg/mL Normal 211-911 [facility] Comment on above: Order Comment: Order Date: 05/05/24 Order Info: 9 - B12 Order Info: [id number] - VITD25 Performed By: #### L 506.1000, L502.0500, L100.0100, L500.4100, L501.9985, L500.4050, L503.0105, L509.1000 #### [facility] Laboratory [address] [place], [address] [id number] DOrdered By: Saranya Lang on 05-05-2024 Vitamin D 25-Hydroxy 98.2 ng/mL [facility] Comment on above: Vitamin D 25(OH) Sta tus Range Deficiency <20 ng/mL (50nmol/L) Insufficiency 20 - 30 ng/mL (50 - 75 nmol/L) Sufficiency 30 - 100 ng/mL (75 - 250 nmol/L) Toxicity >100 ng/mL (>250 nmol/L) Absolute lymphocyte countOrd ered By: Dominique Lang on 05-05-2024 Lymphocytes Auto (Unsp spec) [#/Vol] 1.59 10*3/uL 0.83-4.51 [facility] Absolute neutrophil countOrd ered By: Dominique Lang on 05-05-2024 Neutrophils (Bld) [#/Vol] 5.5 10*3/uL 2.0-7.7 [facility] Albumin to globulin ratioOrd ered By: Dominique Lang on 05-05-2024 Albumin/Globulin [Mass ratio] 0.9 {ratio} 0.9-2.4 [facility] Automated lymphocyte count a s percentage of total leukocytesOrdered By: Dominique Lang on 05-05-2024 Lymphocytes/100 WBC Auto (Unsp spec) 20.4 % 19-41 [facility] Basophil percentageOrdered B y: Dominique Lang on 05-05-2024 Basophils/100 WBC (Bld) 0.3 % 0-1 [facility] Bilirubin Test strip Ql (U)O rdered By: Dominique Lang on 05-05-2024 Bilirubin Ql (U) Negative Negative [facility] Bilirubin, totalOrdered By: Dominique Lang on 05-05-2024 Bilirubin [Mass/Vol] 0.40 mg/dL 0.20-1.00 [facility] Comment on above: For patients on eltr ombopag therapy, use of Dimension [place] TBIL is not recommended. Blood urea nitrogen (BUN)/cr eatinine ratioOrdered By: Dominique Lang on 05-05-2024 Urea nitrogen/Creatinine [Mass ratio] 25.2 mg/mg High 10-20 [facility] CBC W/Diff, Automatedon 04-18 Absolute Lymph 1.59 X10 3/uL Normal 0.83-4.51 [facility] Comment on above: Order Comment: Order Date: 05/05/24 Order Info: 0184-1 - CBCD Performed By: #### L 506.1000, L502.0500, L100.0100, L500.4100, L501.9985, L500.4050, L503.0105, L509.1000 #### [facility] Laboratory [address] [place], [address] Absolute Neut 5.5 X10 3/uL Normal 2.0-7.7 [facility] Comment on above: Order Comment: Order Date: 05/05/24 Order Info: 0184-1 - CBCD Performed By: #### L 506.1000, L502.0500, L100.0100, L500.4100, L501.9985, L500.4050, L503.0105, L509.1000 #### [facility] Laboratory [address] [place], [address] Basophils/100 WBC (Bld) 0.3 % Normal 0-1 [facility] Comment on above: Order Comment: Order Date: 05/05/24 Order Info: 0184 - CBCD Performed By: #### L 506.1000, L502.0500, L100.0100, L500.4100, L501.9985, L500.4050, L503.0105, L509.1000 #### [facility] Laboratory [address], [address] Eosinophils/100 WBC (Bld) 1.9 % Normal 0-5 [facility] Comment on above: Order Comment: Order Date: 05/05/24 Order Info: 0184- - CBCD Performed By: #### L 506.1000, L502.0500, L100.0100, L500.4100, L501.9985, L500.4050, L503.0105, L509.1000 #### [facility] Laboratory [address] [place], [address] Erythrocyte distribution width (RBC) [Ratio] 13.8 % Normal 11.6-14.6 [facility] Comment on above: Order Comment: Order Date: 05/05/24 Order Info: 0184- - CBCD Performed By: #### L 506.1000, L502.0500, L100.0100, L500.4100, L501.9985, L500.4050, L503.0105, L509.1000 #### [facility] [address] [place], [address] Hematocrit (Bld) [Volume fraction] 42.5 % Normal 37-47 [facility] Comment on above: Order Comment: Order Date: 05/05/24 Order Info: 0184-1 - CBCD Performed By: #### L 506.1000, L502.0500, L100.0100, L500.4100, L501.9985, L500.4050, L503.0105, L509.1000 #### [facility] Laboratory [address] [facility] [place], [address] Hemoglobin (Bld) [Mass/Vol] 13.2 g/dL Normal 12.0-15.0 [facility] Comment on above: Order Comment: Order Date: 05/05/24 Order Info: 0184-1 - CBCD Performed By: #### L 506.1000, L502.0500, L100.0100, L500.4100, L501.9985, L500.4050, L503.0105, L509.1000 #### [facility] [address], [address] IG% 0.100 Normal 0.0-0.9 [facility] Comment on above: Order Comment: Order Date: 05/05/24 Order Info: 0184-1 - CBCD Result Comment: IG% - Immature Granulocytes (promyelocytes, myelocytes and metamyelocytes) > 1% indicates that a LEFT SHIFT is Present. Performed By: #### L 506.1000, L502.0500, L100.0100, L500.4100, L501.9985, L500.4050, L503.0105, L509.1000 #### [facility] [address] [facility] [place], [address] Lymphocytes/100 WBC (Bld) 20.4 % Normal 19-41 [facility] Comment on above: Order Comment: Order Date: 05/05/24 Order Info: 0184- - CBCD Performed By: #### L 506.1000, L502.0500, L100.0100, L500.4100, L501.9985, L500.4050, L503.0105, L509.1000 #### [facility] [address] [place], [address] MCH (RBC) [Entitic mass] 27.9 pg Normal 27.0-32.0 [facility] Comment on above: Order Comment: Order Date: 05/05/24 Order Info: 018- - CBCD Performed By: #### L 506.1000, L502.0500, L100.0100, L500.4100, L501.9985, L500.4050, L503.0105, L509.1000 #### [facility] [address] [place], [address] MCHC (RBC) [Mass/Vol] 31.1 g/dL Low 32-36 [facility] Comment on above: Order Comment: Order Date: 05/05/24 Order Info: 0184 - CBCD Performed By: #### L 506.1000, L502.0500, L100.0100, L500.4100, L501.9985, L500.4050, L503.0105, L509.1000 #### [facility] Laboratory [address] [place], [address] MCV (RBC) [Entitic vol] 89.9 fL Normal 81-99 [facility] Comment on above: Order Comment: Order Date: 05/05/24 Order Info: 0184- - CBCD Performed By: #### L 506.1000, L502.0500, L100.0100, L500.4100, L501.9985, L500.4050, L503.0105, L509.1000 #### [facility] Laboratory [address] [place], [address] Monocytes/100 WBC (Bld) 7.2 % Normal 0-10 [facility] Comment on above: Order Comment: Order Date: 05/05/24 Order Info: 0184-1 - CBCD Performed By: #### L 506.1000, L502.0500, L100.0100, L500.4100, L501.9985, L500.4050, L503.0105, L509.1000 #### [facility] [address] [place], [address] Neutrophils/100 WBC (Bld) 70.1 % High 47-70 [facility] Comment on above: Order Comment: Order Date: 05/05/24 Order Info: 0184-1 - CBCD Performed By: #### L 506.1000, L502.0500, L100.0100, L500.4100, L501.9985, L500.4050, L503.0105, L509.1000 #### [facility] Laboratory [address] [place], [address] Nucleated RBC (Bld) [#/Vol] 0 10*3/uL Normal 0-5 [facility] Comment on above: Order Comment: Order Date: 05/05/24 Order Info: 0184-1 - CBCD Performed By: #### L 506.1000, L502.0500, L100.0100, L500.4100, L501.9985, L500.4050, L503.0105, L509.1000 #### [facility] [address] [place], [address] Platelet mean volume (Bld) [Entitic vol] 10.1 fL Normal 6.2-12.0 [facility] Comment on above: Order Comment: Order Date: 05/05/24 Order Info: 0184-1 - CBCD Performed By: #### L 506.1000, L502.0500, L100.0100, L500.4100, L501.9985, L500.4050, L503.0105, L509.1000 #### [facility] [address] [place], [address] Platelets (Bld) [#/Vol] 221 10*3/uL Normal 150-450 [facility] Comment on above: Order Comment: Order Date: 05/05/24 Order Info: 0184-1 - CBCD Performed By: #### L 506.1000, L502.0500, L100.0100, L500.4100, L501.9985, L500.4050, L503.0105, L509.1000 #### [facility] [address] [place], [address] RBC (Bld) [#/Vol] 4.73 10*6/uL Normal 4.2-5.4 [facility] Comment on above: Order Comment: Order Date: 05/05/24 Order Info: 0184- - CBCD Performed By: #### L 506.1000, L502.0500, L100.0100, L500.4100, L501.9985, L500.4050, L503.0105, L509.1000 #### [facility] [address] [place], [address] RDW SD 45.1 fl High 35.1-43.9 [facility] Comment on above: Order Comment: Order Date: 05/05/24 Order Info: 0184-1 - CBCD Performed By: #### L 506.1000, L502.0500, L100.0100, L500.4100, L501.9985, L500.4050, L503.0105, L509.1000 #### [facility] [address] [place], [address] WBC (Bld) [#/Vol] 7.8 10*3/uL Normal 4.4-11.0 [facility] Comment on above: Order Comment: Order Date: 05/05/24 Order Info: 0184-1 - CBCD Performed By: #### L 506.1000, L502.0500, L100.0100, L500.4100, L501.9985, L500.4050, L503.0105, L509.1000 #### [facility] [address] [place], [place], [id number] Carbon dioxide measurementOr dered By: Dominique Lang on 05-05-2024 CO2 [Moles/Vol] 30.0 mmol/L 21.0-32.0 [facility] Chloride measurementOrdered By: Dominique Lang on 05-05-2024 Chloride [Moles/Vol] 100 mmol/L 98-107 [facility] Coarse Granular Casts LM Ql (Urine sed)Ordered By: Dominique Lang on 05-05-2024 Urine Coarse Granular Casts 0-5 SEEN /lpf 0-5 /lpf [facility] Comprehensive Metabolic Prof ilon 05-05-2024 Albumin [Mass/Vol] 3.7 g/dL Normal 3.2-5.0 [facility] Comment on above: Order Comment: Order Date: 05/05/24 Order Info: 0786-1 - CMP Order Info: [id number] - LIPID Performed By: #### L 506.1000, L502.0500, L100.0100, L500.4100, L501.9985, L500.4050, L503.0105, L509.1000 #### [facility] [address] [place], [place], [id number] Albumin/Globulin [Mass ratio] 0.9 {ratio} Normal 0.9-2.4 [facility] Comment on above: Order Comment: Order Date: 05/05/24 Order Info: 0786-1 - CMP Order Info: [id number] - LIPID Performed By: #### L 506.1000, L502.0500, L100.0100, L500.4100, L501.9985, L500.4050, L503.0105, L509.1000 #### [facility] [address] [place], [place], [phone] ALK P 47 U/L Normal 45-117 [facility] Comment on above: Order Comment: Order Date: 05/05/24 Order Info: 0786-1 - CMP Order Info: [id number] - LIPID Performed By: #### L 506.1000, L502.0500, L100.0100, L500.4100, L501.9985, L500.4050, L503.0105, L509.1000 #### [facility] [address] [place], [address] ALT [Catalytic activity/Vol] 23 U/L Normal 13-56 [facility] Comment on above: Order Comment: Order Date: 05/05/24 Order Info: 0786- - CMP Order Info: [id number] - LIPID Performed By: #### L 506.1000, L502.0500, L100.0100, L500.4100, L501.9985, L500.4050, L503.0105, L509.1000 #### [facility] [address] [place], [place], [address] AST [Catalytic activity/Vol] 29 U/L Normal 15-37 [facility] Comment on above: Order Comment: Order Date: 05/05/24 Order Info: 0786-1 - CMP Order Info: [id number] - LIPID Performed By: #### L 506.1000, L502.0500, L100.0100, L500.4100, L501.9985, L500.4050, L503.0105, L509.1000 #### [facility] [address] [place], [place], [address] Bilirubin [Mass/Vol] 0.40 mg/dL Normal 0.20-1.00 [facility] Comment on above: Order Comment: Order Date: 05/05/24 Order Info: 0786-1 - CMP Order Info: [id number] - LIPID Result Comment: For patients on eltrombopag therapy, use of Dimension [place] TBIL is not recommended. Performed By: #### L 506.1000, L502.0500, L100.0100, L500.4100, L501.9985, L500.4050, L503.0105, L509.1000 #### [facility] [address] [place], [address] BUN/CRE 25.2 RATIO High 10-20 [facility] Comment on above: Order Comment: Order Date: 05/05/24 Order Info: 0786-1 - CMP Order Info: [id number] - LIPID Performed By: #### L 506.1000, L502.0500, L100.0100, L500.4100, L501.9985, L500.4050, L503.0105, L509.1000 #### [facility] [address] [place], [address] CA,Total 10.3 mg/dL High 8.5-10.1 [facility] Comment on above: Order Comment: Order Date: 05/05/24 Order Info: 0786-1 - CMP Order Info: [id number] - LIPID Performed By: #### L 506.1000, L502.0500, L100.0100, L500.4100, L501.9985, L500.4050, L503.0105, L509.1000 #### [facility] [address] [place], [address] Chloride [Moles/Vol] 100 mmol/L Normal 98-107 [facility] Comment on above: Order Comment: Order Date: 05/05/24 Order Info: 0786-1 - CMP Order Info: [id number] - LIPID Performed By: #### L 506.1000, L502.0500, L100.0100, L500.4100, L501.9985, L500.4050, L503.0105, L509.1000 #### [facility] [address] [place], [address] CO2 [Moles/Vol] 30.0 mmol/L Normal 21.0-32.0 [facility] Comment on above: Order Comment: Order Date: 05/05/24 Order Info: 0786- - CMP Order Info: [id number] - LIPID Performed By: #### L 506.1000, L502.0500, L100.0100, L500.4100, L501.9985, L500.4050, L503.0105, L509.1000 #### [facility] [address] [place], [place], [address] Creatinine [Mass/Vol] 0.91 mg/dL Normal 0.55-1.02 [facility] Comment on above: Order Comment: Order Date: 05/05/24 Order Info: 07 - CMP Order Info: [id number] - LIPID Result Comment: The validity of the calculated GFR GFRAA in patients over 70 years has not been determined. Clinical correlation is essential. Performed By: #### L 506.1000, L502.0500, L100.0100, L500.4100, L501.9985, L500.4050, L503.0105, L509.1000 #### [facility] [address] [place], [place], [phone] EST GFR - AA 76 mL/min Normal >60 [facility] Comment on above: Order Comment: Order Date: 05/05/24 Order Info: 0786 - CMP Order Info: [id number] - LIPID Result Comment: Afri can Liberian GFR Calc Performed By: #### L 506.1000, L502.0500, L100.0100, L500.4100, L501.9985, L500.4050, L503.0105, L509.1000 #### [facility] [address] [place], [place], [phone] GAP 6 Normal 5-15 [facility] Comment on above: Order Comment: Order Date: 05/05/24 Order Info: 0786- - CMP Order Info: [id number] - LIPID Performed By: #### L 506.1000, L502.0500, L100.0100, L500.4100, L501.9985, L500.4050, L503.0105, L509.1000 #### [facility] [address] [place], [address] GFR/1.73 sq M.predicted among non-blacks MDRD (S/P/Bld) [Vol rate/Area] 63 mL/min/{1.73_m2} Normal >60 [facility] Comment on above: Order Comment: Order Date: 05/05/24 Order Info: 0786- - CMP Order Info: [id number] - LIPID Result Comment: Non- GFR Calc Performed By: #### L 506.1000, L502.0500, L100.0100, L500.4100, L501.9985, L500.4050, L503.0105, L509.1000 #### [facility] [address] [place], [address] Globulin (S) [Mass/Vol] 4.0 g/dL Normal 2.2-4.2 [facility] Comment on above: Order Comment: Order Date: 05/05/24 Order Info: 0786- - CMP Order Info: [id number] - LIPID Performed By: #### L 506.1000, L502.0500, L100.0100, L500.4100, L501.9985, L500.4050, L503.0105, L509.1000 #### [facility] [address] [place], [address] Glucose [Mass/Vol] 86 mg/dL Normal 74-106 [facility] Comment on above: Order Comment: Order Date: 05/05/24 Order Info: 0786-1 - CMP Order Info: [id number] - LIPID Performed By: #### L 506.1000, L502.0500, L100.0100, L500.4100, L501.9985, L500.4050, L503.0105, L509.1000 #### [facility] [address] [place], [place], [phone] (500) Potassium [Moles/Vol] 4.1 mmol/L Normal 3.5-5.1 [facility] Comment on above: Order Comment: Order Date: 05/05/24 Order Info: 0786-1 - CMP Order Info: [id number] - LIPID Performed By: #### L 506.1000, L502.0500, L100.0100, L500.4100, L501.9985, L500.4050, L503.0105, L509.1000 #### [facility] [address] [place], [address] Sodium [Moles/Vol] 136 mmol/L Normal 136-145 [facility] Comment on above: Order Comment: Order Date: 05/05/24 Order Info: 0786- - CMP Order Info: [id number] - LIPID Performed By: #### L 506.1000, L502.0500, L100.0100, L500.4100, L501.9985, L500.4050, L503.0105, L509.1000 #### [facility] [address] [place], [address] T PROT 7.7 g/dL Normal 6.4-8.2 [facility] Comment on above: Order Comment: Order Date: 05/05/24 Order Info: 0786-1 - CMP Order Info: [id number] - LIPID Performed By: #### L 506.1000, L502.0500, L100.0100, L500.4100, L501.9985, L500.4050, L503.0105, L509.1000 #### [facility] [address] [place], [address] Urea nitrogen [Mass/Vol] 23 mg/dL High 7-18 [facility] Comment on above: Order Comment: Order Date: 05/05/24 Order Info: [id number] - CMP Order Info: [id number] - LIPID Performed By: #### L 506.1000, L502.0500, L100.0100, L500.4100, L501.9985, L500.4050, L503.0105, L509.1000 #### [facility] [address], [address] Eosinophil percentageOrdered By: Dominique Lang on 05-05-2024 Eosinophils/100 WBC (Bld) 1.9 % 0-5 [facility] Epithelial cells.squamous LM Ql (Urine sed)Ordered By: Dominique Lang on 05-05-2024 Epithelial cells.squamous LM.HPF (Urine sed) [#/Area] 0 /[HPF] 5-10 [facility] Erythrocyte distribution wid th ratioOrdered By: Dominique Lang on 05-05-2024 Erythrocyte distribution width (RBC) [Ratio] 13.8 % 11.6-14.6 [facility] Erythrocyte distribution wid th standard deviationOrdered By: Dominique Lang on 05-05-2024 Erythrocyte distribution width (RBC) [Entitic vol] 45.1 fL High 35.1-43.9 [facility] Erythrocyte distribution width (RBC) [Ratio] 45.1 fl High 35.1-43.9 [facility] Estimated glomerular filtrat ion rate (GFR) AmericanOrdered By: Dominique Lang on 05-05-2024 Estimated GFR (MDRD) Amer 76 mL/min >60 [facility] Comment on above: GFR Calc Glomerular filtration rate ( GFR) estimationOrdered By: Dominique Lang on 05-05-2024 Estimated GFR (MDRD) Non-Af Amer 63 mL/min >60 [facility] Comment on above: Non- GFR Calc GFR/1.73 sq M.predicted among non-blacks MDRD (S/P/Bld) [Vol rate/Area] 63 mL/min/{1.73_m2} >60 [facility] Comment on above: Non- GFR Calc Glucose Ql (U)Ordered By: Liliana Lang on 05-05-2024 Urine Glucose (UA) Normal mg/dl Normal [facility] Glucose measurementOrdered B y: Dominique Lang on 05-05-2024 Glucose [Mass/Vol] 86 mg/dL 74-106 [facility] Hematocrit Auto (Bld) [Volum e fraction]Ordered By: Dominique Lang on 05-05-2024 Hematocrit (Bld) [Volume fraction] 42.5 % 37-47 [facility] Hemoglobin A1con 05-05-2024 HbA1c (Bld) [Mass fraction] 6.7 % High 3.8-5.6 [facility] Comment on above: Order Comment: Order Date: 05/05/24 Order Info: [id number] - A1C Result Comment: Norm al < 5.7 % Prediabetic 5.7 - 6.4 % Diabetic >or= 6.5 % Please note range changes. Performed By: #### L 506.1000, L502.0500, L100.0100, L500.4100, L501.9985, L500.4050, L503.0105, L509.1000 #### [facility] [address] [place], [address] Hemoglobin A1c percentageOrd ered By: Dominique Lang on 05-05-2024 HbA1c (Bld) [Mass fraction] 6.7 % High 3.8-5.6 [facility] Comment on above: Normal < 5.7 % Predi abetic 5.7 - 6.4 % Diabetic >or= 6.5 % Please note range changes. Hemoglobin measurementOrdere d By: Dominique Lang on 05-05-2024 Hemoglobin (Bld) [Mass/Vol] 13.2 g/dL 12.0-15.0 [facility] High density lipoprotein (HD L) measurementOrdered By: Dominique Lang on 05-05-2024 Cholesterol in HDL [Mass/Vol] 55 mg/dL >40 [facility] Comment on above: The drugs N-Acetylcy steine and Metamizole may falsely depress this assay. Reference Range HDL <40 mg/dL Low HDL Cholesterol HDL >or= 60 mg/dL High HDL Cholesterol Hyaline casts LM.LPF (Urine sed) [#/Area]Ordered By: Dominique Lang on 05-05-2024 Hyaline casts (Urine sed) [#/Area] 0 /[LPF] 0-5 [facility] Hyaline casts LM Ql (Urine sed) 0-5 SEEN /lpf 0-5 [facility] Immature granulocytes/100 WB C Auto (Bld)Ordered By: Dominique Lang on 05-05-2024 Immature granulocytes/100 WBC (Bld) 0.100 % 0.0-0.9 [facility] Comment on above: IG% - Immature Granu locytes (promyelocytes, myelocytes and metamyelocytes) > 1% indicates that a LEFT SHIFT is Present. Intact parathyroid hormone ( iPTH) measurementOrdered By: Dominique Lang on 05-05-2024 Parathyroid Hormone (Intact) 14.8 pg/mL Low 18.4-80.1 [facility] Ketones Test strip Ql (U)Ord ered By: Dominique Lang on 05-05-2024 Ketones Ql (U) Negative Negative [facility] - Chemistry and C hemistry - challengeOrdered By: Dominique Lang on 05-05-2024 AST [Catalytic activity/Vol] 29 U/L 15-37 [facility] Lipid Profileon 05-05-2024 Cholesterol [Mass/Vol] 131 mg/dL Normal 200 [facility] Comment on above: Order Comment: Order Date: 05/05/24 Order Info: [id number] - CMP Order Info: [id number] - LIPID Result Comment: <200 mg/dL Desirable 200-240 mg/dL Borderline >240 mg/dL High Risk Performed By: #### L 506.1000, L502.0500, L100.0100, L500.4100, L501.9985, L500.4050, L503.0105, L509.1000 #### [facility] [address] [place] [address], [address] Cholesterol in HDL [Mass/Vol] 55 mg/dL Normal [facility] Comment on above: Order Comment: Order Date: 05/05/24 Order Info: [id number] - CMP Order Info: [id number] - LIPID Result Comment: The drugs N-Acetylcysteine and Metamizole may falsely depress this assay. Reference Range HDL <40 mg/dL Low HDL Cholesterol HDL >or= 60 mg/dL High HDL Cholesterol Performed By: #### L 506.1000, L502.0500, L100.0100, L500.4100, L501.9985, L500.4050, L503.0105, L509.1000 #### [facility] [address] [place], [address] Cholesterol in LDL [Mass/Vol] 34 mg/dL Normal 0-130 [facility] Comment on above: Order Comment: Order Date: 05/05/24 Order Info: 0786-1 - [facility] Order Info: [id number] - LIPID Performed By: #### L 506.1000, L502.0500, L100.0100, L500.4100, L501.9985, L500.4050, L503.0105, L509.1000 #### [facility] [address] [place], [address] Cholesterol in VLDL [Mass/Vol] 42 mg/dL High 5-40 [facility] Comment on above: Order Comment: Order Date: 05/05/24 Order Info: 0786 - CMP Order Info: [id number] - LIPID Performed By: #### L 506.1000, L502.0500, L100.0100, L500.4100, L501.9985, L500.4050, L503.0105, L509.1000 #### [facility] [address] [place], [address] Triglyceride [Mass/Vol] 210 mg/dL High [facility] Comment on above: Order Comment: Order Date: 05/05/24 Order Info: [id number]- - CMP Order Info: [id number] - LIPID Result Comment: The drugs N-Acetylcysteine and Metamizole may falsely depress this assay. Serum Triglycerides Reference Interval Normal <150 mg/dL Borderline high 150 - 199 mg/dL High 200 - 499 mg/dL Very High > or = 500 mg/dL Performed By: #### L 506.1000, L502.0500, L100.0100, L500.4100, L501.9985, L500.4050, L503.0105, L509.1000 #### [facility] [address] [place], [address] Low density lipoprotein (LDL ) cholesterol measurementOrdered By: Dominique Lang on 05-05-2024 Cholesterol in LDL [Mass/Vol] 34 mg/dL 0-130 [facility] Lymphocytes Auto (Unsp spec) [#/Vol]Ordered By: Dominique Lang on 05-05-2024 Lymphocytes (Bld) [#/Vol] 1.59 10*3/uL 0.83-4.51 [facility] Lymphocytes/100 WBC Auto (Un sp spec)Ordered By: Dominique Lang on 05-05-2024 Lymphocytes/100 WBC (Bld) 20.4 % 19-41 [facility] MCV (mean corpuscular volume ) determinationOrdered By: Dominique Lang on 05-05-2024 MCV (RBC) [Entitic vol] 89.9 fL 81-99 [facility] Mean corpuscular hemoglobin (MCH) determinationOrdered By: Dominique Lang on 05-05-2024 MCH (RBC) [Entitic mass] 27.9 pg 27.0-32.0 [facility] Mean corpuscular hemoglobin concentration (MCHC) determinationOrdered By: Dominique Lang on 05-05-2024 MCHC (RBC) [Mass/Vol] 31.1 g/dL Low 32-36 [facility] Mean platelet volume determi nationOrdered By: Dominique Lang on 05-05-2024 Platelet mean volume (Bld) [Entitic vol] 10.1 fL 6.2-12.0 [facility] Microalbumin,Random Urineon 05-05-2024 MICROALBUMIN,UR 453.0 mg/L Normal NO RANGE EST. [facility] Comment on above: Order Comment: Order Date: 05/05/24 Order Info: [id number] - MIALB Performed By: #### L 506.1000, L502.0500, L100.0100, L500.4100, L501.9985, L500.4050, L503.0105, L509.1000 #### [facility] [address] [place], [address] Microscopic analysis of urin e for red blood cells (RBC)Ordered By: Dominique Lang on 05-05-2024 Microscopic analysis of urine for red blood cells (RBC) 0-5 SEEN /hpf 0-5 [facility] Urine RBC 0-5 SEEN /hpf 0-5 [facility] Monocyte percentageOrdered B y: Dominique Lang on 05-05-2024 Monocytes/100 WBC (Bld) 7.2 % 0-10 [facility] Mucus LM Ql (Urine sed)Order ed By: Dominique Lang on 05-05-2024 Mucus Ql (Urine sed) 0 SEEN /hpf [facility] Neutrophil percentageOrdered By: Dominique Lang on 05-05-2024 Neutrophils/100 WBC (Bld) 70.1 % High 47-70 [facility] Nitrite Test strip Ql (U)Ord ered By: Dominique Lang on 05-05-2024 Nitrite Ql (U) Negative Negative [facility] Nucleated red blood cell per centageOrdered By: Dominique Lang on 05-05-2024 Nucleated RBC/100 WBC (Bld) [Ratio] 0 % 0-5 [facility] PTHINon 05-05-2024 PTH 14.8 pg/mL Low 18.4-80.1 [facility] Comment on above: Order Comment: Order Date: 05/05/24 Order Info: [id number] - PTHIN Performed By: #### L 506.1000, L502.0500, L100.0100, L500.4100, L501.9985, L500.4050, L503.0105, L509.1000 #### [facility] [address] [place] [address], [address] Platelet countOrdered By: Liliana Lang on 05-05-2024 Platelets (Bld) [#/Vol] 221 10*3/uL 150-450 [facility] Potassium measurementOrdered By: Dominique Lang on 05-05-2024 Potassium [Moles/Vol] 4.1 mmol/L 3.5-5.1 [facility] Protein Test strip Ql (U)Ord ered By: Dominique Lang on 05-05-2024 Protein Ql (U) 100 mg/dl High Negative [facility] Protein+Creatinine Ratio,Uri neon 05-05-2024 PROT:CRE RATIO 488 mg/g CRE High 0-200 [facility] Comment on above: Order Comment: Order Date: 05/05/24 Order Info: [id number] - A1C Performed By: #### L 506.1000, L502.0500, L100.0100, L500.4100, L501.9985, L500.4050, L503.0105, L509.1000 #### [facility] [address] [place], [address] UR CREAT 126.00 mg/dL Normal NO RANGE EST. [facility] Comment on above: Order Comment: Order Date: 05/05/24 Order Info: 4548-4 - A1C Performed By: #### L 506.1000, L502.0500, L100.0100, L500.4100, L501.9985, L500.4050, L503.0105, L509.1000 #### [facility] [address] [place], [place], [id number] Protein/Creatinine (U) [Mass ratio]Ordered By: Dominique Lang on 05-05-2024 Urine Protein/Creatinine Ratio 488 mg/g CRE High 0-200 [facility] RBC Auto (Bld) [#/Vol]Ordere d By: Dominique Lang on 05-05-2024 RBC (Bld) [#/Vol] 4.73 10*6/uL 4.2-5.4 [facility] Random urine microalbumin me asurementOrdered By: Dominique Lang on 05-05-2024 Urine Random Microalbumin 453.0 mg/L NO RANGE EST. [facility] Random urine protein measure mentOrdered By: Dominique Lang on 05-05-2024 Protein (U) [Mass/Vol] 61.5 mg/dL High <11.9 [facility] Comment on above: Order Comment: Order Date: 05/05/24 Order Info: [id number] - A1C Performed By: #### L 506.1000, L502.0500, L100.0100, L500.4100, L501.9985, L500.4050, L503.0105, L509.1000 #### [facility] [address], [address] Serum anion gap measurementO rdered By: Dominique Lang on 05-05-2024 Anion gap [Moles/Vol] 6 mmol/L 5-15 [facility] Serum globulin measurementOr dered By: Dominique Lang on 05-05-2024 Globulin (S) [Mass/Vol] 4.0 g/dL 2.2-4.2 [facility] Serum or plasma alanine rico otransferase (ALT) measurementOrdered By: Dominique Lang on 05-05-2024 ALT [Catalytic activity/Vol] 23 U/L 13-56 [facility] Serum or plasma albumin chris urement (mass/volume)Ordered By: Dominique Lang on 05-05-2024 Albumin [Mass/Vol] 3.7 g/dL 3.2-5.0 [facility] Serum or plasma alkaline mohamud sphatase measurementOrdered By: Dominique Lang on 05-05-2024 ALP [Catalytic activity/Vol] 47 U/L 45-117 [facility] Serum or plasma calcium chris urement (mass/volume)Ordered By: Dominique Lang on 05-05-2024 Calcium [Mass/Vol] 10.3 mg/dL High 8.5-10.1 [facility] Serum or plasma cholesterol measurement (mass/volume)Ordered By: Dominique Lang on 05-05-2024 Cholesterol [Mass/Vol] 131 mg/dL <200 [facility] Comment on above: <200 mg/dL Desirable 200-240 mg/dL Borderline >240 mg/dL High Risk Serum or plasma creatinine m easurement (mass/volume)Ordered By: Dominique Lang on 05-05-2024 Creatinine [Mass/Vol] 0.91 mg/dL 0.55-1.02 [facility] Comment on above: The validity of the calculated GFR & GFRAA in patients over 70 years has not been determined. Clinical correlation is essential. Serum or plasma urea nitroge n measurement (mass/volume)Ordered By: Dominique Lang on 05-05-2024 Urea nitrogen [Mass/Vol] 23 mg/dL High 7-18 [facility] Sodium levelOrdered By: Dominique Lang on 05-05-2024 Sodium [Moles/Vol] 136 mmol/L 136-145 [facility] Squamous epithelial cells de tection in urine sediment by light microscopyOrdered By: Dominique Lang on 05-05-2024 Epithelial cells.squamous LM Ql (Urine sed) 0-5 SEEN /hpf 5-10 [facility] Total proteinOrdered By: Aren Lang on 05-05-2024 Protein [Mass/Vol] 7.7 g/dL 6.4-8.2 [facility] Triglycerides measurementOrd ered By: Dominique Lang on 05-05-2024 Triglyceride [Mass/Vol] 210 mg/dL High <199 [facility] Comment on above: The drugs N-Acetylcy steine and Metamizole may falsely depress this assay.Serum Triglycerides Reference Interval Normal <150 mg/dL Borderline high 150 - 199 mg/dL High 200 - 499 mg/dL Very High > or = 500 mg/dL Urinalysis, Completeon 05-05 BACTERIA 1+ /hpf Normal None Seen [facility] Comment on above: Order Comment: Order Date: 05/05/24 Order Info: 4548-4 - A1C Performed By: #### L 506.1000, L502.0500, L100.0100, L500.4100, L501.9985, L500.4050, L503.0105, L509.1000 #### [facility] [address] [place], [place], [address] CAST,COARSE GR 0-5 SEEN Normal 0-5 /lpf [facility] Comment on above: Order Comment: Order Date: 05/05/24 Order Info: 4548-4 - A1C Performed By: #### L 506.1000, L502.0500, L100.0100, L500.4100, L501.9985, L500.4050, L503.0105, L509.1000 #### [facility] [address] [place], [address] CAST,HYALINE 0-5 SEEN Normal 0-5 [facility] Comment on above: Order Comment: Order Date: 05/05/24 Order Info: 4548-4 - A1C Performed By: #### L 506.1000, L502.0500, L100.0100, L500.4100, L501.9985, L500.4050, L503.0105, L509.1000 #### [facility] [address] [place], [address] EPI,SQUAMOUS 0-5 SEEN Normal 5-10 [facility] Comment on above: Order Comment: Order Date: 05/05/24 Order Info: 4548-4 - A1C Performed By: #### L 506.1000, L502.0500, L100.0100, L500.4100, L501.9985, L500.4050, L503.0105, L509.1000 #### [facility] [address] [place], [address] RBC 0-5 SEEN Normal 0-5 [facility] Comment on above: Order Comment: Order Date: 05/05/24 Order Info: 4548-4 - A1C Performed By: #### L 506.1000, L502.0500, L100.0100, L500.4100, L501.9985, L500.4050, L503.0105, L509.1000 #### [facility] [address] [place], [address] WBC 5-10 SEEN Normal 0-5 [facility] Comment on above: Order Comment: Order Date: 05/05/24 Order Info: 4548-4 - A1C Performed By: #### L 506.1000, L502.0500, L100.0100, L500.4100, L501.9985, L500.4050, L503.0105, L509.1000 #### [facility] [address] [place], [address] Mucus Ql (Urine sed) 0 SEEN Normal [facility] Comment on above: Order Comment: Order Date: 05/05/24 Order Info: 4548-4 - A1C Performed By: #### L 506.1000, L502.0500, L100.0100, L500.4100, L501.9985, L500.4050, L503.0105, L509.1000 #### [facility] [address] [place], [address] Urine blood detectionOrdered By: Dominique Lang on 05-05-2024 Urine Occult Blood 10 /ul High Negative [facility] Urine clarityOrdered By: Aren Lang on 05-05-2024 Clarity (U) Clear Clear [facility] Urine coarse granular cast d etectionOrdered By: Dominique Lang on 05-05-2024 Coarse Granular Casts LM Ql (Urine sed) 0-5 SEEN /lpf 0-5 /lpf [facility] Urine color determinationOrd ered By: Dominique Lang on 05-05-2024 Color (U) Yellow Yellow [facility] Urine creatinine measurement (mass/volume)Ordered By: Dominique Lang on 05-05-2024 Creatinine (U) [Mass/Vol] 126.00 mg/dL NO RANGE EST. [facility] Urine glucose detectionOrder ed By: Dominique Lang on 05-05-2024 Glucose Ql (U) Normal mg/dl Normal [facility] Urine leukocyte esterase det ection by dipstickOrdered By: Dominique Lang on 05-05-2024 Leukocyte esterase Test strip Ql (U) 25 /ul High Negative [facility] Urine pHOrdered By: Dominique harrison on 05-05-2024 pH (U) 5.0 [pH] 5.0 - 8.0 [facility] Urine protein/creatinine mas s ratioOrdered By: Dominique Lang on 05-05-2024 Protein/Creatinine (U) [Mass ratio] 488 mg/g CRE High 0-200 [facility] Urine sediment bacteria coun t by microscopy (number/high power field)Ordered By: Dominique Lang on 05-05-2024 Bacteria LM.HPF (Urine sed) [#/Area] 1 /[HPF] None Seen [facility] Urine specific gravity measu rementOrdered By: Dominique Lang on 05-05-2024 Specific gravity (U) [Rel density] 1.015 1.002-1.030 [facility] Urine urobilinogen measureme ntOrdered By: Dominique Lang on 05-05-2024 Urobilinogen Ql (U) Normal mg/dl Normal [facility] Urobilinogen Ql (U)Ordered B y: Dominique Lang on 05-05-2024 Urine Urobilinogen Normal mg/dl Normal [facility] Very low density lipoprotein (VLDL) cholesterol measurementOrdered By: Dominique Lang on 05-05-2024 Very low density lipoprotein (VLDL) cholesterol measurement 42 mg/dL High 5-40 [facility] VLDL Cholesterol 42 mg/dL High 5-40 [facility] Vitamin B12 measurementOrder ed By: Dominique Lang on 05-05-2024 Cobalamin (Vitamin B12) [Mass/Vol] 579 pg/mL 211-911 [facility] White blood cell (WBC) count Ordered By: Dominique Lang on 05-05-2024 WBC (Bld) [#/Vol] 7.8 10*3/uL 4.4-11.0 [facility] White blood cell countOrdere d By: Dominique Lang on 05-05-2024 Urine WBC 5-10 SEEN /hpf 0-5 [facility] White blood cell count 5-10 SEEN /hpf 0-5 [facility] Pulmonary Visit Reporton Pulmonary Visit Report [facility] [place] [address] [place] [address]. [address] [place] [address] OFFICE VISIT Date of Service: 04/01/24 MR#: [id number] Acct: [id number] Name: TAMICA ANDERSON Rep #: [id number] : 1940 Provider: IDA Prajapati Age/Sex: 83/F [place] [facility] [place]: Signed Assessment and Plan Assessment and Plan (1) KATTY (obstructive sleep apnea): Status: Chronic Plan: Deteriorated. The patient has not recently been compliant with PAP therapy due to skin irritation from her current interface. Unfortunately, the [employer] company switched out the patient's interface. It [...] (pediatric) Plan Details Follow Up: 3 Months (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 Normal [facility] Clavicleon 01-15-2024 Clavicle [facility] [address] [place] [address] Clavicle MR#: [id number] Acct: [id number] Name: TAMICA ANDERSON Rep #: [id number] : 1940 F 83 From: Minerva Maynard MD PCP: Dr. Dominique Lang MD Status: DEP AMB Study: Clavicle Date of Exam: 01/15/24 Exam# [id number] Ordering Dr: Tonny Cuadra DO [id number] STUDY: X-RAY - RIGHT CLAVICLE REASON FOR [...] 15:32 EDT Reading Location ID and State: [facility] / [place] , Service support , CC: Dr. Dominique Lang MD; Dr. 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 Tonny Cuadra, DO 01/15/24 0845. Part [...] fracture. 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 Normal [facility] L5000.0015on 01-08-2024 PTHIN 27 pg/mL Normal 15-65 [facility] Comment on above: Performed By: #### L 506.1000, L502.0500, L100.0100, L500.4100, L501.9985, L500.4050, L503.0105, L509.1000 #### [facility] [address], [address] L3300.0940on 01-07-2024 VIT D,25 HYDROX 75.6 ng/mL Normal 30.0-100.0 [facility] Comment on above: Result Comment: Justyna min D deficiency has been defined by the [place] [employer] and an Endocrine Society practice guideline as a level of serum 25-OH vitamin D less than 20 ng/mL (1,2). The Endocrine Society went on to further define vitamin D insufficiency as a level between 21 and 29 ng/mL (2). 1. IOM ([place] [employer]). 2010. Dietary reference intakes for calcium and D. [place]: The National Academies Press. 2. Milla MF, Melanie NC, Tyrese FOWLER, et al. Evaluation, treatment, and prevention of vitamin D deficiency: an Endocrine Society clinical practice guideline. JCEM. 2010; 96(7):1911-30. Performed By: #### L 506.1000, L502.0500, L100.0100, L500.4100, L501.9985, L500.4050, L503.0105, L509.1000 #### [facility] [address] [place], [address] L5000.0012on 01-07-2024 Cobalamin (Vitamin B12) [Mass/Vol] 885 pg/mL Normal 232-1245 [facility] Comment on above: Result Comment: Perf ormed at: [facility] [address] [id number] Button Tacker: Hernandez Bo PhD, Phone: [phone] Performed By: #### L 506.1000, L502.0500, L100.0100, L500.4100, L501.9985, L500.4050, L503.0105, L509.1000 #### [facility] [address] [place], [address] CBC W/Diff, Automatedon 12-16 Absolute Lymph 1.28 X10 3/uL Normal 0.83-4.51 [facility] Comment on above: Performed By: #### L 506.1000, L502.0500, L100.0100, L500.4100, L501.9985, L500.4050, L503.0105, L509.1000 #### [facility] [address] [place], [address] Absolute Neut 5.4 X10 3/uL Normal 2.0-7.7 [facility] Comment on above: Performed By: #### L 506.1000, L502.0500, L100.0100, L500.4100, L501.9985, L500.4050, L503.0105, L509.1000 #### [facility] [address] [place], [address] Basophils/100 WBC (Bld) 0.3 % Normal 0-1 [facility] Comment on above: Performed By: #### L 506.1000, L502.0500, L100.0100, L500.4100, L501.9985, L500.4050, L503.0105, L509.1000 #### [facility] [address] [place], [address] Eosinophils/100 WBC (Bld) 3.1 % Normal 0-5 [facility] Comment on above: Performed By: #### L 506.1000, L502.0500, L100.0100, L500.4100, L501.9985, L500.4050, L503.0105, L509.1000 #### [facility] [address] [place], [address] Erythrocyte distribution width (RBC) [Ratio] 14.7 % High 11.6-14.6 [facility] Comment on above: Performed By: #### L 506.1000, L502.0500, L100.0100, L500.4100, L501.9985, L500.4050, L503.0105, L509.1000 #### [facility] [address] [place], [address] Hematocrit (Bld) [Volume fraction] 37.9 % Normal 37-47 [facility] Comment on above: Performed By: #### L 506.1000, L502.0500, L100.0100, L500.4100, L501.9985, L500.4050, L503.0105, L509.1000 #### [facility] [address] [place], [address] Hemoglobin (Bld) [Mass/Vol] 11.9 g/dL Low 12.0-15.0 [facility] Comment on above: Performed By: #### L 506.1000, L502.0500, L100.0100, L500.4100, L501.9985, L500.4050, L503.0105, L509.1000 #### [facility] [address] [place], [address] IG% 0.100 Normal 0.0-0.9 [facility] Comment on above: Result Comment: IG% - Immature Granulocytes (promyelocytes, myelocytes and metamyelocytes) > 1% indicates that a LEFT SHIFT is Present. Performed By: #### L 506.1000, L502.0500, L100.0100, L500.4100, L501.9985, L500.4050, L503.0105, L509.1000 #### [facility] [address] [place], [address] Lymphocytes/100 WBC (Bld) 16.6 % Low 19-41 [facility] Comment on above: Performed By: #### L 506.1000, L502.0500, L100.0100, L500.4100, L501.9985, L500.4050, L503.0105, L509.1000 #### [facility] [address] [place], [address] MCH (RBC) [Entitic mass] 27.4 pg Normal 27.0-32.0 [facility] Comment on above: Performed By: #### L 506.1000, L502.0500, L100.0100, L500.4100, L501.9985, L500.4050, L503.0105, L509.1000 #### [facility] [address] [place], [address] MCHC (RBC) [Mass/Vol] 31.4 g/dL Low 32-36 [facility] Comment on above: Performed By: #### L 506.1000, L502.0500, L100.0100, L500.4100, L501.9985, L500.4050, L503.0105, L509.1000 #### [facility] [address] [place], [address] MCV (RBC) [Entitic vol] 87.3 fL Normal 81-99 [facility] Comment on above: Performed By: #### L 506.1000, L502.0500, L100.0100, L500.4100, L501.9985, L500.4050, L503.0105, L509.1000 #### [facility] [address] [place], [address] Monocytes/100 WBC (Bld) 9.9 % Normal 0-10 [facility] Comment on above: Performed By: #### L 506.1000, L502.0500, L100.0100, L500.4100, L501.9985, L500.4050, L503.0105, L509.1000 #### [facility] [address] [place], [address] Neutrophils/100 WBC (Bld) 70.0 % Normal 47-70 [facility] Comment on above: Performed By: #### L 506.1000, L502.0500, L100.0100, L500.4100, L501.9985, L500.4050, L503.0105, L509.1000 #### [facility] [address] [place], [address] Nucleated RBC (Bld) [#/Vol] 0 10*3/uL Normal 0-5 [facility] Comment on above: Performed By: #### L 506.1000, L502.0500, L100.0100, L500.4100, L501.9985, L500.4050, L503.0105, L509.1000 #### [facility] [address] [place], [address] Platelet mean volume (Bld) [Entitic vol] 9.7 fL Normal 6.2-12.0 [facility] Comment on above: Performed By: #### L 506.1000, L502.0500, L100.0100, L500.4100, L501.9985, L500.4050, L503.0105, L509.1000 #### [facility] [address] [place], [address] Platelets (Bld) [#/Vol] 220 10*3/uL Normal 150-450 [facility] Comment on above: Performed By: #### L 506.1000, L502.0500, L100.0100, L500.4100, L501.9985, L500.4050, L503.0105, L509.1000 #### [facility] [address] [place], [address] RBC (Bld) [#/Vol] 4.34 10*6/uL Normal 4.2-5.4 [facility] Comment on above: Performed By: #### L 506.1000, L502.0500, L100.0100, L500.4100, L501.9985, L500.4050, L503.0105, L509.1000 #### [facility] [address] [place], [address] (770) RDW SD 47.5 fl High 35.1-43.9 [facility] Comment on above: Performed By: #### L 506.1000, L502.0500, L100.0100, L500.4100, L501.9985, L500.4050, L503.0105, L509.1000 #### [facility] [address] [place], [address] WBC (Bld) [#/Vol] 7.7 10*3/uL Normal 4.4-11.0 [facility] Comment on above: Performed By: #### L 506.1000, L502.0500, L100.0100, L500.4100, L501.9985, L500.4050, L503.0105, L509.1000 #### [facility] [address] [place], [address] Comprehensive Metabolic Prof ilon 01-01-2024 Albumin [Mass/Vol] 3.3 g/dL Normal 3.2-5.0 [facility] Comment on above: Order Comment: Order Date: 05/05/24 Order Info: 0565-1 - PTHIN Performed By: #### L 506.1000, L502.0500, L100.0100, L500.4100, L501.9985, L500.4050, L503.0105, L509.1000 #### [facility] [address] [place], [address] Albumin/Globulin [Mass ratio] 0.8 {ratio} Low 0.9-2.4 [facility] Comment on above: Order Comment: Order Date: 05/05/24 Order Info: 0565-1 - PTHIN Performed By: #### L 506.1000, L502.0500, L100.0100, L500.4100, L501.9985, L500.4050, L503.0105, L509.1000 #### [facility] [address] [place], [address] ALK P 137 U/L High 45-117 [facility] Comment on above: Order Comment: Order Date: 05/05/24 Order Info: 0565-1 - PTHIN Performed By: #### L 506.1000, L502.0500, L100.0100, L500.4100, L501.9985, L500.4050, L503.0105, L509.1000 #### [facility] [address] [place], [address] ALT [Catalytic activity/Vol] 25 U/L Normal 13-56 [facility] Comment on above: Order Comment: Order Date: 05/05/24 Order Info: 0565-1 - PTHIN Performed By: #### L 506.1000, L502.0500, L100.0100, L500.4100, L501.9985, L500.4050, L503.0105, L509.1000 #### [facility] [address] [place], [address] AST [Catalytic activity/Vol] 36 U/L Normal 15-37 [facility] Comment on above: Order Comment: Order Date: 05/05/24 Order Info: 0565-1 - PTHIN Performed By: #### L 506.1000, L502.0500, L100.0100, L500.4100, L501.9985, L500.4050, L503.0105, L509.1000 #### [facility] [address] [place], [address] Bilirubin [Mass/Vol] 0.30 mg/dL Normal 0.20-1.00 [facility] Comment on above: Order Comment: Order Date: 05/05/24 Order Info: 0565-1 - PTHIN Result Comment: For patients on eltrombopag therapy, use of [place]ension [place] TBIL is not recommended. Performed By: #### L 506.1000, L502.0500, L100.0100, L500.4100, L501.9985, L500.4050, L503.0105, L509.1000 #### [facility] [address] [place], [address] BUN/CRE 36.2 RATIO High 10-20 [facility] Comment on above: Order Comment: Order Date: 05/05/24 Order Info: 0565-1 - PTHIN Performed By: #### L 506.1000, L502.0500, L100.0100, L500.4100, L501.9985, L500.4050, L503.0105, L509.1000 #### [facility] [address] [place], [address] CA,Total 9.6 mg/dL Normal 8.5-10.1 [facility] Comment on above: Order Comment: Order Date: 05/05/24 Order Info: 0565-1 - PTHIN Performed By: #### L 506.1000, L502.0500, L100.0100, L500.4100, L501.9985, L500.4050, L503.0105, L509.1000 #### [facility] [address] [place], [address] Chloride [Moles/Vol] 101 mmol/L Normal 98-107 [facility] Comment on above: Order Comment: Order Date: 05/05/24 Order Info: 0565-1 - PTHIN Performed By: #### L 506.1000, L502.0500, L100.0100, L500.4100, L501.9985, L500.4050, L503.0105, L509.1000 #### [facility] [address] [place], [address] CO2 [Moles/Vol] 29.0 mmol/L Normal 21.0-32.0 [facility] Comment on above: Order Comment: Order Date: 05/05/24 Order Info: 0565- - PTHIN Performed By: #### L 506.1000, L502.0500, L100.0100, L500.4100, L501.9985, L500.4050, L503.0105, L509.1000 #### [facility] [address] [place], [address] Creatinine [Mass/Vol] 1.05 mg/dL High 0.55-1.02 [facility] Comment on above: Order Comment: Order Date: 05/05/24 Order Info: 0565- - PTHIN Result Comment: The validity of the calculated GFR GFRAA in patients over 70 years has not been determined. Clinical correlation is essential. Performed By: #### L 506.1000, L502.0500, L100.0100, L500.4100, L501.9985, L500.4050, L503.0105, L509.1000 #### [facility] [address] [place], [address] EST GFR - AA 64 mL/min Normal >60 [facility] Comment on above: Order Comment: Order Date: 05/05/24 Order Info: 0565- - PTHIN Result Comment: Afri can [place] GFR Calc Performed By: #### L 506.1000, L502.0500, L100.0100, L500.4100, L501.9985, L500.4050, L503.0105, L509.1000 #### [facility] [address] [place], [address] GAP 7 Normal 5-15 [facility] Comment on above: Order Comment: Order Date: 05/05/24 Order Info: 0565-1 - PTHIN Performed By: #### L 506.1000, L502.0500, L100.0100, L500.4100, L501.9985, L500.4050, L503.0105, L509.1000 #### [facility] [address] [place], [place], [address] GFR/1.73 sq M.predicted among non-blacks MDRD (S/P/Bld) [Vol rate/Area] 53 mL/min/{1.73_m2} Low >60 [facility] Comment on above: Order Comment: Order Date: 05/05/24 Order Info: 0565-1 - PTHIN Result Comment: Non- GFR Calc Performed By: #### L 506.1000, L502.0500, L100.0100, L500.4100, L501.9985, L500.4050, L503.0105, L509.1000 #### [facility] [address] [place], [place], [id number] Globulin (S) [Mass/Vol] 4.1 g/dL Normal 2.2-4.2 [facility] Comment on above: Order Comment: Order Date: 05/05/24 Order Info: 0565-1 - PTHIN Performed By: #### L 506.1000, L502.0500, L100.0100, L500.4100, L501.9985, L500.4050, L503.0105, L509.1000 #### [facility] [address] [place], [place], [address] Glucose [Mass/Vol] 269 mg/dL High 74-106 [facility] Comment on above: Order Comment: Order Date: 05/05/24 Order Info: 0565-1 - PTHIN Result Comment: Gluc ose result greater than or equal to 200 mg/dL suggests DIABETES MELLITUS per A.D.A. criteria. Performed By: #### L 506.1000, L502.0500, L100.0100, L500.4100, L501.9985, L500.4050, L503.0105, L509.1000 #### [facility] [address] [place], [address] Potassium [Moles/Vol] 4.0 mmol/L Normal 3.5-5.1 [facility] Comment on above: Order Comment: Order Date: 05/05/24 Order Info: 0565-1 - PTHIN Performed By: #### L 506.1000, L502.0500, L100.0100, L500.4100, L501.9985, L500.4050, L503.0105, L509.1000 #### [facility] [address] [place], [address] Sodium [Moles/Vol] 137 mmol/L Normal 136-145 [facility] Comment on above: Order Comment: Order Date: 05/05/24 Order Info: 0565-1 - PTHIN Performed By: #### L 506.1000, L502.0500, L100.0100, L500.4100, L501.9985, L500.4050, L503.0105, L509.1000 #### [facility] [address] [place], [address] T PROT 7.4 g/dL Normal 6.4-8.2 [facility] Comment on above: Order Comment: Order Date: 05/05/24 Order Info: 0565-1 - PTHIN Performed By: #### L 506.1000, L502.0500, L100.0100, L500.4100, L501.9985, L500.4050, L503.0105, L509.1000 #### [facility] [address] [place], [address] Urea nitrogen [Mass/Vol] 38 mg/dL High 18 [facility] Comment on above: Order Comment: Order Date: 05/05/24 Order Info: 0565-1 - PTHIN Performed By: #### L 506.1000, L502.0500, L100.0100, L500.4100, L501.9985, L500.4050, L503.0105, L509.1000 #### [facility] [address] [place], [address] Ferritinon 01-01-2024 Ferritin [Mass/Vol] 42 ng/mL Normal 8252 [facility] Comment on above: Order Comment: Order Date: 05/05/24 Order Info: 0565-1 - PTHIN Performed By: #### L 506.1000, L502.0500, L100.0100, L500.4100, L501.9985, L500.4050, L503.0105, L509.1000 #### [facility] [address] [place], [address] Folates, (Folic Acid)on 12-16 FOLATES 15.10 ng/mL Normal 3.1-55.4 [facility] Comment on above: Order Comment: Order Date: 05/05/24 Order Info: 0565-1 - PTHIN Performed By: #### L 506.1000, L502.0500, L100.0100, L500.4100, L501.9985, L500.4050, L503.0105, L509.1000 #### [facility] [address] [place], [address] Hemoglobin A1con 01-01-2024 HbA1c (Bld) [Mass fraction] 7.8 % High 3.8-5.6 [facility] Comment on above: Result Comment: Norm al < 5.7 % Prediabetic 5.7 - 6.4 % Diabetic >or= 6.5 % Please note range changes. Performed By: #### L 506.1000, L502.0500, L100.0100, L500.4100, L501.9985, L500.4050, L503.0105, L509.1000 #### [facility] [address] [place], [address] Iron+Iron Binding Capacityon 01-01-2024 Iron [Mass/Vol] 47 ug/dL Low 50-170 [facility] Comment on above: Order Comment: Order Date: 05/05/24 Order Info: 0565-1 - PTHIN Performed By: #### L 506.1000, L502.0500, L100.0100, L500.4100, L501.9985, L500.4050, L503.0105, L509.1000 #### [facility] [address] [place], [place], [id number] IRON SATURATION 11.2 Low 15.0-55.0 [facility] Comment on above: Order Comment: Order Date: 05/05/24 Order Info: 0565-1 - PTHIN Performed By: #### L 506.1000, L502.0500, L100.0100, L500.4100, L501.9985, L500.4050, L503.0105, L509.1000 #### [facility] [address] [place], [address] TIBC 421 ug/dL Normal 250-450 [facility] Comment on above: Order Comment: Order Date: 05/05/24 Order Info: 0565-1 - PTHIN Performed By: #### L 506.1000, L502.0500, L100.0100, L500.4100, L501.9985, L500.4050, L503.0105, L509.1000 #### [facility] [address] [place], [address] Lipid Profileon 01-01-2024 Cholesterol [Mass/Vol] 135 mg/dL Normal 200 [facility] Comment on above: Order Comment: Order Date: 05/05/24 Order Info: 0565-1 - PTHIN Result Comment: <200 mg/dL Desirable 200-240 mg/dL Borderline >240 mg/dL High Risk Performed By: #### L 506.1000, L502.0500, L100.0100, L500.4100, L501.9985, L500.4050, L503.0105, L509.1000 #### [facility] [address] [place], [address] Cholesterol in HDL [Mass/Vol] 48 mg/dL Normal [facility] Comment on above: Order Comment: Order Date: 05/05/24 Order Info: 0565-1 - PTHIN Result Comment: The drugs N-Acetylcysteine and Metamizole may falsely depress this assay. Reference Range HDL <40 mg/dL Low HDL Cholesterol HDL >or= 60 mg/dL High HDL Cholesterol Performed By: #### L 506.1000, L502.0500, L100.0100, L500.4100, L501.9985, L500.4050, L503.0105, L509.1000 #### [facility] [address] [place], [address] Cholesterol in LDL [Mass/Vol] 48 mg/dL Normal 0-130 [facility] Comment on above: Order Comment: Order Date: 05/05/24 Order Info: 0565-1 - PTHIN Performed By: #### L 506.1000, L502.0500, L100.0100, L500.4100, L501.9985, L500.4050, L503.0105, L509.1000 #### [facility] [address] [place], [address] Cholesterol in VLDL [Mass/Vol] 39 mg/dL Normal 5-40 [facility] Comment on above: Order Comment: Order Date: 05/05/24 Order Info: 0565-1 - PTHIN Performed By: #### L 506.1000, L502.0500, L100.0100, L500.4100, L501.9985, L500.4050, L503.0105, L509.1000 #### [facility] [address] [place], [address] Triglyceride [Mass/Vol] 196 mg/dL Normal [facility] Comment on above: Order Comment: Order Date: 05/05/24 Order Info: 0565-1 - PTHIN Result Comment: The drugs N-Acetylcysteine and Metamizole may falsely depress this assay. Serum Triglycerides Reference Interval Normal <150 mg/dL Borderline high 150 - 199 mg/dL High 200 - 499 mg/dL Very High > or = 500 mg/dL Performed By: #### L 506.1000, L502.0500, L100.0100, L500.4100, L501.9985, L500.4050, L503.0105, L509.1000 #### [facility] [address] [place], [address] Microalb:Creat Ratio,Random URon 01-01-2024 MALB:CRE 309.2 mg/g CRE High <30 mg/g CRE [facility] Comment on above: Performed By: #### L 506.1000, L502.0500, L100.0100, L500.4100, L501.9985, L500.4050, L503.0105, L509.1000 #### [facility] [address] [place], [address] MICROALBUMIN,UR 235.0 mg/L Normal NO RANGE EST. [facility] Comment on above: Performed By: #### L 506.1000, L502.0500, L100.0100, L500.4100, L501.9985, L500.4050, L503.0105, L509.1000 #### [facility] [address] [place], [address] Protein+Creatinine Ratio,Uri neon 01-01-2024 PROT:CRE RATIO 472 mg/g CRE High 0-200 [facility] Comment on above: Performed By: #### L 506.1000, L502.0500, L100.0100, L500.4100, L501.9985, L500.4050, L503.0105, L509.1000 #### [facility] [address] [place], [address] Protein (U) [Mass/Vol] 35.9 mg/dL High <11.9 [facility] Comment on above: Performed By: #### L 506.1000, L502.0500, L100.0100, L500.4100, L501.9985, L500.4050, L503.0105, L509.1000 #### [facility] [address] [place], [address] UR CREAT 76.00 mg/dL Normal NO RANGE EST. [facility] Comment on above: Performed By: #### L 506.1000, L502.0500, L100.0100, L500.4100, L501.9985, L500.4050, L503.0105, L509.1000 #### [facility] [address] [place], [address] Urinalysis, Completeon 12-31 CAST,HYALINE 0-5 SEEN Normal 0-5 [facility] Comment on above: Order Comment: Order Date: 05/05/24 Order Info: 4548-4 - A1C Performed By: #### L 506.1000, L502.0500, L100.0100, L500.4100, L501.9985, L500.4050, L503.0105, L509.1000 #### [facility] [address] [place], [address] WBC 5-10 SEEN Normal 0-5 [facility] Comment on above: Order Comment: Order Date: 05/05/24 Order Info: 4548-4 - A1C Performed By: #### L 506.1000, L502.0500, L100.0100, L500.4100, L501.9985, L500.4050, L503.0105, L509.1000 #### [facility] [address] [place], [address] BACTERIA 0 SEEN Normal None Seen [facility] Comment on above: Order Comment: Order Date: 05/05/24 Order Info: 4548-4 - A1C Performed By: #### L 506.1000, L502.0500, L100.0100, L500.4100, L501.9985, L500.4050, L503.0105, L509.1000 #### [facility] [address] [place], [place], [id number] EPI,SQUAMOUS 0 SEEN Normal 5-10 [facility] Comment on above: Order Comment: Order Date: 05/05/24 Order Info: 4548-4 - A1C Performed By: #### L 506.1000, L502.0500, L100.0100, L500.4100, L501.9985, L500.4050, L503.0105, L509.1000 #### [facility] [address] [place], [place], [id number] Mucus Ql (Urine sed) 0 SEEN Normal [facility] Comment on above: Order Comment: Order Date: 05/05/24 Order Info: 4548-4 - A1C Performed By: #### L 506.1000, L502.0500, L100.0100, L500.4100, L501.9985, L500.4050, L503.0105, L509.1000 #### [facility] [address] [place], [place], [id number] RBC 0 SEEN Normal 0-5 [facility] Comment on above: Order Comment: Order Date: 05/05/24 Order Info: 4548-4 - A1C Performed By: #### L 506.1000, L502.0500, L100.0100, L500.4100, L501.9985, L500.4050, L503.0105, L509.1000 #### [facility] [address] [place], [address] Ribs Bilat 3V No CXRon 12-12 Ribs Bilat 3V No CXR [facility] [address] [place] [address] Ribs Bilat 3V No CXR MR#: [id number] Acct: [id number] Name: TAMICA ANDERSON Rep #: [id number] : 1940 F 83 From: Minerva Maynard MD PCP: Dr. Dominique Lang MD Status: REG CLI Study: Ribs Bilat 3V No CXR Date of Exam: 12/13/23 Exam# [id number] Ordering Dr: Dominique Lang MD [id number] STUDY: X-RAY - BILATERAL RIBS WITH CHEST [...] 14:38 EDT Reading Location ID and State: [facility] / [place] , Service support , CC: Dr. 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 Dominique Lang MD Status: DEP AMB Study: Clavicle Date of Exam: 12/11/23 Exam# [id number] Ordering Dr: Tonny Cuadra DO [id number] STUDY: X-RAY - RIGHT CLAVICLE REASON FOR [...] Dominique Lang MD; Dr. 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 Tonny Cuadra DO 12/11/23 0946. Part of today???s visit was documented by Lizbeth DAMON, acting as scribe. TAMICA ANDERSON is a 83 year old F here today for ER follow-up 12/06/2023 right clavicle fracture. 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 Normal [facility] Tibia Fibula 2 Viewson 12-10 Tibia Fibula 2 Views [facility] Radiology [address] [place] [address] Tibia Fibula 2 Views MR#: [id number] Acct: [id number] Name: TAMICA ANDERSON Rep #: [id number] : 1940 F 83 From: Elvis Carvajal MD PCP: Dr. Dominique Lang MD Status: DEP AMB Study: Tibia Fibula 2 Views Date of Exam: 12/11/23 Exam# [id number] Ordering Dr: Tonny Cuadra DO [id number] STUDY: X-RAY - RIGHT TIBIA AND FIBULA [...] Dominique Lang MD; Dr. 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, [address] Basic Metabolic Profile (BMP )on 12-10-2023 BUN/CRE 41.0 RATIO High 10-20 [facility] Comment on above: Performed By: #### L 506.1000, L502.0500, L100.0100, L500.4100, L501.9985, L500.4050, L503.0105, L509.1000 #### [facility] Laboratory [address] [place], [address] CA,Total 9.9 mg/dL Normal 8.5-10.1 [facility] Comment on above: Performed By: #### L 506.1000, L502.0500, L100.0100, L500.4100, L501.9985, L500.4050, L503.0105, L509.1000 #### [facility] Laboratory [address] [place], [address] Chloride [Moles/Vol] 101 mmol/L Normal 98-107 [facility] Comment on above: Performed By: #### L 506.1000, L502.0500, L100.0100, L500.4100, L501.9985, L500.4050, L503.0105, L509.1000 #### [facility] Laboratory [address] [place], [address] CO2 [Moles/Vol] 26.0 mmol/L Normal 21.0-32.0 [facility] Comment on above: Performed By: #### L 506.1000, L502.0500, L100.0100, L500.4100, L501.9985, L500.4050, L503.0105, L509.1000 #### [facility] [address] [place], [address] Creatinine [Mass/Vol] 1.00 mg/dL Normal 0.55-1.02 [facility] Comment on above: Result Comment: The validity of the calculated GFR GFRAA in patients over 70 years has not been determined. Clinical correlation is essential. Performed By: #### L 506.1000, L502.0500, L100.0100, L500.4100, L501.9985, L500.4050, L503.0105, L509.1000 #### [facility] [address] [place], [address] EST GFR - AA 68 mL/min Normal >60 [facility] Comment on above: Result Comment: Afri can Liberian GFR Calc Performed By: #### L 506.1000, L502.0500, L100.0100, L500.4100, L501.9985, L500.4050, L503.0105, L509.1000 #### [facility] [address] [place], [address] GAP 10 Normal 5-15 [facility] Comment on above: Performed By: #### L 506.1000, L502.0500, L100.0100, L500.4100, L501.9985, L500.4050, L503.0105, L509.1000 #### [facility] [address] [place], [address] GFR/1.73 sq M.predicted among non-blacks MDRD (S/P/Bld) [Vol rate/Area] 56 mL/min/{1.73_m2} Low >60 [facility] Comment on above: Result Comment: Non- GFR Calc Performed By: #### L 506.1000, L502.0500, L100.0100, L500.4100, L501.9985, L500.4050, L503.0105, L509.1000 #### [facility] [address] [place], [address] Glucose [Mass/Vol] 242 mg/dL High 74-106 [facility] Comment on above: Result Comment: Gluc ose result greater than or equal to 200 mg/dL suggests DIABETES MELLITUS per A.D.A. criteria. Performed By: #### L 506.1000, L502.0500, L100.0100, L500.4100, L501.9985, L500.4050, L503.0105, L509.1000 #### [facility] [address] [place], [address] Potassium [Moles/Vol] 4.0 mmol/L Normal 3.5-5.1 [facility] Comment on above: Performed By: #### L 506.1000, L502.0500, L100.0100, L500.4100, L501.9985, L500.4050, L503.0105, L509.1000 #### [facility] Laboratory [address] [place], [address] Sodium [Moles/Vol] 137 mmol/L Normal 136-145 [facility] Comment on above: Performed By: #### L 506.1000, L502.0500, L100.0100, L500.4100, L501.9985, L500.4050, L503.0105, L509.1000 #### [facility] [address] [place], [address] Urea nitrogen [Mass/Vol] 41 mg/dL High 7-18 [facility] Comment on above: Performed By: #### L 506.1000, L502.0500, L100.0100, L500.4100, L501.9985, L500.4050, L503.0105, L509.1000 #### [facility] Laboratory [address] [place], [place], [id number] (097) CBC W/Diff, Automatedon 11-17 Absolute Lymph 1.52 X10 3/uL Normal 0.83-4.51 [facility] Comment on above: Performed By: #### L 506.1000, L502.0500, L100.0100, L500.4100, L501.9985, L500.4050, L503.0105, L509.1000 #### [facility] Laboratory [address] [place], [address] Absolute Neut 6.3 X10 3/uL Normal 2.0-7.7 [facility] Comment on above: Performed By: #### L 506.1000, L502.0500, L100.0100, L500.4100, L501.9985, L500.4050, L503.0105, L509.1000 #### [facility] Laboratory [address] [place], [address] Basophils/100 WBC (Bld) 0.5 % Normal 0-1 [facility] Comment on above: Performed By: #### L 506.1000, L502.0500, L100.0100, L500.4100, L501.9985, L500.4050, L503.0105, L509.1000 #### [facility] Laboratory [address] [place], [address] Eosinophils/100 WBC (Bld) 1.9 % Normal 0-5 [facility] Comment on above: Performed By: #### L 506.1000, L502.0500, L100.0100, L500.4100, L501.9985, L500.4050, L503.0105, L509.1000 #### [facility] [address] [place], [address] Erythrocyte distribution width (RBC) [Ratio] 16.1 % High 11.6-14.6 [facility] Comment on above: Performed By: #### L 506.1000, L502.0500, L100.0100, L500.4100, L501.9985, L500.4050, L503.0105, L509.1000 #### [facility] Laboratory [address] [place], [address] Hematocrit (Bld) [Volume fraction] 37.5 % Normal 37-47 [facility] Comment on above: Performed By: #### L 506.1000, L502.0500, L100.0100, L500.4100, L501.9985, L500.4050, L503.0105, L509.1000 #### [facility] Laboratory [address] [place], [address] Hemoglobin (Bld) [Mass/Vol] 11.7 g/dL Low 12.0-15.0 [facility] Comment on above: Performed By: #### L 506.1000, L502.0500, L100.0100, L500.4100, L501.9985, L500.4050, L503.0105, L509.1000 #### [facility] [address] [place], [address] IG% 0.300 Normal 0.0-0.9 [facility] Comment on above: Result Comment: IG% - Immature Granulocytes (promyelocytes, myelocytes and metamyelocytes) > 1% indicates that a LEFT SHIFT is Present. Performed By: #### L 506.1000, L502.0500, L100.0100, L500.4100, L501.9985, L500.4050, L503.0105, L509.1000 #### [facility] [address] [place], [address] Lymphocytes/100 WBC (Bld) 17.3 % Low 19-41 [facility] Comment on above: Performed By: #### L 506.1000, L502.0500, L100.0100, L500.4100, L501.9985, L500.4050, L503.0105, L509.1000 #### [facility] Laboratory [address] [place], [address] MCH (RBC) [Entitic mass] 26.7 pg Low 27.0-32.0 [facility] Comment on above: Performed By: #### L 506.1000, L502.0500, L100.0100, L500.4100, L501.9985, L500.4050, L503.0105, L509.1000 #### [facility] Laboratory [address] [place], [address] MCHC (RBC) [Mass/Vol] 31.2 g/dL Low 32-36 [facility] Comment on above: Performed By: #### L 506.1000, L502.0500, L100.0100, L500.4100, L501.9985, L500.4050, L503.0105, L509.1000 #### [facility] Laboratory [address] [place], [address] MCV (RBC) [Entitic vol] 85.6 fL Normal 81-99 [facility] Comment on above: Performed By: #### L 506.1000, L502.0500, L100.0100, L500.4100, L501.9985, L500.4050, L503.0105, L509.1000 #### [facility] [address] [place], [address] Monocytes/100 WBC (Bld) 8.6 % Normal 0-10 [facility] Comment on above: Performed By: #### L 506.1000, L502.0500, L100.0100, L500.4100, L501.9985, L500.4050, L503.0105, L509.1000 #### [facility] Laboratory [address] [place], [address] Neutrophils/100 WBC (Bld) 71.4 % High 47-70 [facility] Comment on above: Performed By: #### L 506.1000, L502.0500, L100.0100, L500.4100, L501.9985, L500.4050, L503.0105, L509.1000 #### [facility] Laboratory [address] [place], [address] Nucleated RBC (Bld) [#/Vol] 0 10*3/uL Normal 0-5 [facility] Comment on above: Performed By: #### L 506.1000, L502.0500, L100.0100, L500.4100, L501.9985, L500.4050, L503.0105, L509.1000 #### [facility] Laboratory [address] [place], [address] Platelet mean volume (Bld) [Entitic vol] 9.7 fL Normal 6.2-12.0 [facility] Comment on above: Performed By: #### L 506.1000, L502.0500, L100.0100, L500.4100, L501.9985, L500.4050, L503.0105, L509.1000 #### [facility] Laboratory [address] [place], [address] Platelets (Bld) [#/Vol] 205 10*3/uL Normal 150-450 [facility] Comment on above: Performed By: #### L 506.1000, L502.0500, L100.0100, L500.4100, L501.9985, L500.4050, L503.0105, L509.1000 #### [facility] Laboratory [address] [place], [address] RBC (Bld) [#/Vol] 4.38 10*6/uL Normal 4.2-5.4 [facility] Comment on above: Performed By: #### L 506.1000, L502.0500, L100.0100, L500.4100, L501.9985, L500.4050, L503.0105, L509.1000 #### [facility] Laboratory [address] [place], [address] RDW SD 50.4 fl High 35.1-43.9 [facility] Comment on above: Performed By: #### L 506.1000, L502.0500, L100.0100, L500.4100, L501.9985, L500.4050, L503.0105, L509.1000 #### [facility] Laboratory [address] [place], [address] WBC (Bld) [#/Vol] 8.8 10*3/uL Normal 4.4-11.0 [facility] Comment on above: Performed By: #### L 506.1000, L502.0500, L100.0100, L500.4100, L501.9985, L500.4050, L503.0105, L509.1000 #### [facility] Laboratory [address] [place], [address] Cardiology Visit Reporton Cardiology Visit Report [facility] 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 Is patient in pain?: No Allergies adhesive tape Adverse Reaction (Verified 12/10/23 15:01) Unknown morphine Adverse Reaction (Verified 12/10/23 15:01) Vomiting Lagabvb-SEW-MoE Reductase Inhibitor (Wnepyoo-Ppe-Xse Reductase Inhibitor) Adverse Reaction (Verified 12/10/23 15:01) [...] you fallen in the past year?: Yes [facility] Medical History Impingement of left shoulder Intertriginous candidiasis Incontinence Physical debility CPAP (continuous positive airway pressure) dependence Sleep apnea Fracture of right wrist with routine healing Obesity Right bundle branch block (RBBB) KATTY (obstructive sleep apnea) Pancreatitis Diabetes mellitus GERD (gastroesophageal reflux disease) HLD (hyperlipidemia) Essential (primary) hypertension 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 Normal [facility] Chest PA and Lateralon 12-09 Chest PA and Lateral [facility] Services [address] [place], [place] [address] Chest PA and Lateral MR#: [id number] Acct: [id number] Name: TAMICA ANDERSON Rep #: [id number] : 1940 F 83 From: Nicolasa Walsh PCP: Dr. 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 Dominique Lang MD Status: DEP ER Study: Clavicle Date of Exam: 12/06/23 Exam# [id number] Ordering Dr: Karl Cummings MD [id number] EXAM: XR RIGHT CLAVICLE COMPLETE, 2 OR [...] Karl Cummings MD; Dr. 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 Denies any other injuries. 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 Normal [facility] Shoulder min 2 Viewson 12-05 Shoulder min 2 Views [facility] [address] [place], [place] [address] Shoulder min 2 Views MR#: [id number] Acct: [id number] Name: TAMICA ANDERSON Rep #: [id number] : 1940 F 83 From: Basilio Walsh PCP: Dr. Dominique Lang MD Status: DEP ER Study: Shoulder min 2 Views Date of Exam: 12/06/23 Exam# [id number] Ordering Dr: Karl Cummings MD [id number] EXAM: XR RIGHT SHOULDER COMPLETE, 2 OR [...] Karl Cummings MD; Dr. 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: Signed Normal [facility] Absolute lymphocyte countOrd ered By: Dominique Lang on 03-08-2024 Lymphocytes Auto (Unsp spec) [#/Vol] 1.45 10*3/uL 0.83-4.51 [facility] Automated lymphocyte count a s percentage of total leukocytesOrdered By: Dominique Lang on 05-24-2023 Lymphocytes/100 WBC Auto (Unsp spec) 19.5 % 19-41 [facility] Basophil percentageOrdered B y: Dominique Lang on 05-24-2023 Basophil percentage 3.4 mg/dL 2.5-4.9 [facility] Basophils/100 WBC (Bld) 0.3 % 0-1 [facility] Bilirubin [Mass/Vol] 0.40 mg/dL 0.20-1.00 [facility] Comment on above: For patients on eltr ombopag therapy, use of [address] [place] [address] TBIL is not recommended. Chloride [Moles/Vol] 98 mmol/L 98-107 [facility] Cholesterol [Mass/Vol] 129 mg/dL <200 [facility] Comment on above: <200 mg/dL Desirable 200-240 mg/dL Borderline >240 mg/dL High Risk Eosinophils/100 WBC (Bld) 1.9 % 0-5 [facility] Glucose [Mass/Vol] 247 mg/dL 74-106 [facility] Comment on above: Glucose result great er than or equal to 200 mg/dLsuggests DIABETES MELLITUS per A.D.A. criteria. Hemoglobin (Bld) [Mass/Vol] 11.5 g/dL 12.0-15.0 [facility] Monocytes/100 WBC (Bld) 7.5 % 0-10 [facility] Neutrophils (Bld) [#/Vol] 5.2 10*3/uL 2.0-7.7 [facility] Neutrophils/100 WBC (Bld) 70.5 % 47-70 [facility] Potassium [Moles/Vol] 3.9 mmol/L 3.5-5.1 [facility] Protein [Mass/Vol] 7.8 g/dL 6.4-8.2 [facility] Sodium [Moles/Vol] 135 mmol/L 136-145 [facility] Triglyceride [Mass/Vol] 304 mg/dL <199 [facility] Comment on above: The drugs N-Acetylcy steine and Metamizole may falsely depress this assay.Serum Triglycerides Reference Interval Normal <150 mg/dL Borderline high 150 - 199 mg/dL High 200 - 499 mg/dL Very High > or = 500 mg/dL WBC (Bld) [#/Vol] 7.4 10*3/uL 4.4-11.0 [facility] Bilirubin Test strip Ql (U)O rdered By: Dominique Lang on 05-24-2023 Bilirubin Ql (U) Negative Negative [facility] Determination of erythrocyte mean corpuscular volume (MCV)Ordered By: Dominique Lang on 05-24-2023 MCV (RBC) [Entitic vol] 89.6 fL 81-99 [facility] Erythrocyte distribution wid th ratioOrdered By: Dominique Lang on 05-24-2023 Erythrocyte distribution width (RBC) [Ratio] 14.9 % 11.6-14.6 [facility] Erythrocyte distribution wid th standard deviationOrdered By: Dominique Lang on 05-24-2023 Erythrocyte distribution width (RBC) [Entitic vol] 49.2 fL 35.1-43.9 [facility] Hematocrit Auto (Bld) [Volum e fraction]Ordered By: Dominique Lang on 05-24-2023 Hematocrit (Bld) [Volume fraction] 38.1 % 37-47 [facility] Immature granulocytes/100 WB C Auto (Bld)Ordered By: Dominique Lang on 05-24-2023 Immature granulocytes/100 WBC (Bld) 0.300 % 0.0-0.9 [facility] Comment on above: IG% - Immature Granu locytes (promyelocytes, myelocytes and metamyelocytes) > 1% indicates that a LEFT SHIFT is Present. Iron measurement (mass/mass) Ordered By: Dominique Lang on 05-24-2023 Iron (Unsp spec) [Mass/Mass] 97 ug/dL 50-170 [facility] Ketones Test strip Ql (U)Ord ered By: Dominique Lang on 05-24-2023 Ketones Ql (U) Negative Negative [facility] Laboratory - Chemistry and C hemistry - challengeOrdered By: Dominique Lang on 05-24-2023 Albumin/Globulin [Mass ratio] 1.0 {ratio} 0.9-2.4 [facility] ALP [Catalytic activity/Vol] 101 U/L 45-117 [facility] ALT [Catalytic activity/Vol] 24 U/L 13-56 [facility] Cholesterol in HDL [Mass/Vol] 29 mg/dL >40 [facility] Comment on above: The drugs N-Acetylcy steine and Metamizole may falsely depress this assay. Reference Range HDL <40 mg/dL Low HDL Cholesterol HDL >or= 60 mg/dL High HDL Cholesterol Cholesterol in LDL [Mass/Vol] 39 mg/dL 0-130 [facility] CO2 [Moles/Vol] 29.0 mmol/L 21.0-32.0 [facility] Cobalamin (Vitamin B12) [Mass/Vol] 1308 pg/mL 211-911 [facility] Ferritin [Mass/Vol] 31 ng/mL 8-252 [facility] Globulin (S) [Mass/Vol] 4.0 g/dL 2.2-4.2 [facility] Urea nitrogen/Creatinine [Mass ratio] 32.8 mg/mg 10-20 [facility] Laboratory - Hematology and Cell countsOrdered By: Dominique Lang on 05-24-2023 MCH (RBC) [Entitic mass] 27.1 pg 27.0-32.0 [facility] MCHC (RBC) [Mass/Vol] 30.2 g/dL 32-36 [facility] Nucleated RBC/100 WBC (Bld) [Ratio] 0 % 0-5 [facility] Platelet mean volume (Bld) [Entitic vol] 10.4 fL 6.2-12.0 [facility] Platelets (Bld) [#/Vol] 263 10*3/uL 150-450 [facility] Nitrite Test strip Ql (U)Ord ered By: Dominique Lang on 05-24-2023 Nitrite Ql (U) Negative Negative [facility] No Panel InformationOrdered By: Dominique Lang on 05-24-2023 Estimated GFR (MDRD) Amer 49 mL/min >60 [facility] Comment on above: GFR Calc Estimated GFR (MDRD) Non-Af Amer 40 mL/min >60 [facility] Comment on above: Non- GFR Calc Folate 16.00 ng/mL 3.1-55.4 [facility] Parathyroid Hormone (Intact) 22.3 pg/mL 18.4-80.1 [facility] Total Iron Binding Capacity 520 ug/dL 250-450 [facility] Urine Microalbumin/Creatinine Ratio 17.8 mg/g CRE <30 [facility] Vitamin D 25-Hydroxy 45.2 ng/mL [facility] Comment on above: Vitamin D 25(OH) Sta tus Range Deficiency <20 ng/mL (50nmol/L) Insufficiency 20 - 30 ng/mL (50 - 75 nmol/L) Sufficiency 30 - 100 ng/mL (75 - 250 nmol/L) Toxicity >100 ng/mL (>250 nmol/L) VLDL Cholesterol 61 mg/dL 5-40 [facility] Protein Test strip Ql (U)Ord ered By: Dominique Lang on 05-24-2023 Protein Ql (U) Negative Negative [facility] RBC Auto (Bld) [#/Vol]Ordere d By: Dominique Lang on 05-24-2023 RBC (Bld) [#/Vol] 4.25 10*6/uL 4.2-5.4 [facility] Serum or plasma calcium chris urement (mass/volume)Ordered By: Dominique Lang on 05-24-2023 Calcium [Mass/Vol] 9.3 mg/dL 8.5-10.1 [facility] Serum or plasma creatinine m easurement (mass/volume)Ordered By: Dominique Lang on 05-24-2023 Creatinine [Mass/Vol] 1.34 mg/dL 0.55-1.02 [facility] Comment on above: The validity of the calculated GFR & GFRAA in patients over 70 years has not been determined. Clinical correlation is essential. Serum or plasma urea nitroge n measurement (mass/volume)Ordered By: Dominique Lang on 05-24-2023 Urea nitrogen [Mass/Vol] 44 mg/dL 7-18 [facility] Thin prep Papanicolaou smear with manual screeningOrdered By: Dominique Lang on 05-24-2023 Thin prep Papanicolaou smear with manual screening 3.8 g/dL 3.2-5.0 [facility] Thin prep Papanicolaou smear with manual screening < 6.0 mg/dL 0.0-11.8 [facility] Thin prep Papanicolaou smear with manual screening 48 U/L 15-37 [facility] Thin prep Papanicolaou smear with manual screening 8 5-15 [facility] Thin prep Papanicolaou smear with manual screening 5.4 mg/L NO RANGE EST. [facility] Urine blood detectionOrdered By: Dominique Lang on 05-24-2023 RBC Ql (U) Negative Negative [facility] Urine clarityOrdered By: Aren Lang on 05-24-2023 Clarity (U) Clear Clear [facility] Urine color determinationOrd ered By: Dominique Lang on 05-24-2023 Color (U) Yellow Yellow [facility] Urine creatinine measurement (mass/volume)Ordered By: Dominique Lang on 05-24-2023 Creatinine (U) [Mass/Vol] 30.10 mg/dL NO RANGE EST. [facility] Urine glucose detectionOrder ed By: Dominique Lang on 05-24-2023 Glucose Ql (U) Normal mg/dl Normal [facility] Urine leukocyte esterase det ection by dipstickOrdered By: Dominique Lang on 05-24-2023 Leukocyte esterase Test strip Ql (U) 25 /ul Negative [facility] Urine pHOrdered By: Dominique harrison on 05-24-2023 pH (U) 5.0 [pH] 5.0 - 8.0 [facility] Urine protein/creatinine mas s ratioOrdered By: Dominique Lang on 05-24-2023 Protein/Creatinine (U) [Mass ratio] 166 mg/g CRE 0-200 [facility] Urine specific gravity measu rementOrdered By: Dominique Lang on 05-24-2023 Specific gravity (U) [Rel density] 1.015 1.002-1.030 [facility] Urine urobilinogen measureme ntOrdered By: Dominique Lang on 05-24-2023 Urobilinogen Ql (U) Normal mg/dl Normal [facility] Whole blood hemoglobin A1c/t otal hemoglobin ratio (mass fraction)Ordered By: Dominique Lang on 05-24-2023 HbA1c (Bld) [Mass fraction] 6.8 % 3.8-5.6 [facility] Comment on above: Normal < 5.7 % Predi abetic 5.7 - 6.4 % Diabetic >or= 6.5 % Please note range changes. Basophil percentageOrdered B y: Dominique Lang on 01-11-2023 Basophil percentage 0-5 SEEN /hpf 0-5 [facility] Bilirubin Test strip Ql (U)O rdered By: Dominique Lang on 01-11-2023 Bilirubin Ql (U) Negative Negative [facility] Ketones Test strip Ql (U)Ord ered By: Dominique Lang on 01-11-2023 Ketones Ql (U) Negative Negative [facility] Mucus LM Ql (Urine sed)Order ed By: Dominique Lnag on 01-11-2023 Mucus Ql (Urine sed) 0 SEEN /hpf [facility] Nitrite Test strip Ql (U)Ord ered By: Dominique Lang on 01-11-2023 Nitrite Ql (U) Negative Negative [facility] No Panel InformationOrdered By: Dominique Lang on 01-11-2023 Urine Microalbumin/Creatinine Ratio 8.8 mg/g CRE <30 [facility] Protein Test strip Ql (U)Ord ered By: Dominique Lang on 01-11-2023 Protein Ql (U) Negative Negative [facility] Squamous epithelial cells de tection in urine sediment by light microscopyOrdered By: Dominique Lang on 01-11-2023 Epithelial cells.squamous LM Ql (Urine sed) 0 SEEN /hpf 5-10 [facility] Thin prep Papanicolaou smear with manual screeningOrdered By: Dominique Lang on 01-11-2023 Thin prep Papanicolaou smear with manual screening 7.3 mg/L NO RANGE EST. [facility] Urine blood detectionOrdered By: Dominique Lang on 01-11-2023 RBC Ql (U) Negative Negative [facility] RBC Ql (U) 0 SEEN /hpf 0-5 [facility] Urine clarityOrdered By: Aren Lang on 01-11-2023 Clarity (U) Clear Clear [facility] Urine color determinationOrd ered By: Dominique Lang on 01-11-2023 Color (U) Yellow Yellow [facility] Urine creatinine measurement (mass/volume)Ordered By: Dominique Lang on 01-11-2023 Creatinine (U) [Mass/Vol] 83.00 mg/dL NO RANGE EST. [facility] Urine glucose detectionOrder ed By: Dominique Lang on 01-11-2023 Glucose Ql (U) Normal mg/dl Normal [facility] Urine leukocyte esterase det ection by dipstickOrdered By: Dominique Lang on 01-11-2023 Leukocyte esterase Test strip Ql (U) Negative Negative [facility] Urine pHOrdered By: Dominique harrison on 01-11-2023 pH (U) 6.0 [pH] 5.0 - 8.0 [facility] Urine protein measurement (m ass/volume)Ordered By: Dominique Lang on 01-11-2023 Protein (U) [Mass/Vol] 7.8 mg/dL 0.0-11.8 [facility] Urine protein/creatinine mas s ratioOrdered By: Dominique Lang on 01-11-2023 Protein/Creatinine (U) [Mass ratio] 94 mg/g CRE 0-200 [facility] Urine sediment bacteria coun t by microscopy (number/high power field)Ordered By: Dominique Lang on 01-11-2023 Bacteria LM.HPF (Urine sed) [#/Area] 0 /[HPF] None Seen [facility] Urine specific gravity measu rementOrdered By: Dominique Lang on 01-11-2023 Specific gravity (U) [Rel density] 1.015 1.002-1.030 [facility] Urobilinogen Auto test strip Ql (U)Ordered By: Dominique Lang on 01-11-2023 Urobilinogen Ql (U) Normal mg/dl Normal [facility] Absolute lymphocyte countOrd ered By: Dominique Lang on 01-09-2023 Lymphocytes Auto (Unsp spec) [#/Vol] 1.79 10*3/uL 0.83-4.51 [facility] Basophil percentageOrdered B y: Dominique Lang on 01-09-2023 Basophil percentage 4.2 mg/dL 2.5-4.9 [facility] Basophils/100 WBC (Bld) 0.2 % 0-1 [facility] Bilirubin [Mass/Vol] 0.40 mg/dL 0.20-1.00 [facility] Comment on above: For patients on eltr ombopag therapy, use of [place] [place] TBIL is not recommended. Chloride [Moles/Vol] 100 mmol/L 98-107 [facility] Cholesterol [Mass/Vol] 132 mg/dL <200 [facility] Comment on above: <200 mg/dL Desirable 200-240 mg/dL Borderline >240 mg/dL High Risk Eosinophils/100 WBC (Bld) 1.0 % 0-5 [facility] Glucose [Mass/Vol] 145 mg/dL 74-106 [facility] Comment on above: Fasting Glucose resu lt greater than or equal to 126 mg/dL suggests DIABETES MELLITUS per A.D.A. criteria. Neutrophils (Bld) [#/Vol] 6.4 10*3/uL 2.0-7.7 [facility] Neutrophils/100 WBC (Bld) 71.8 % 47-70 [facility] Potassium [Moles/Vol] 4.1 mmol/L 3.5-5.1 [facility] Protein [Mass/Vol] 7.8 g/dL 6.4-8.2 [facility] Sodium [Moles/Vol] 137 mmol/L 136-145 [facility] Triglyceride [Mass/Vol] 270 mg/dL <199 [facility] Comment on above: The drugs N-Acetylcy steine and Metamizole may falsely depress this assay.Serum Triglycerides Reference Interval Normal <150 mg/dL Borderline high 150 - 199 mg/dL High 200 - 499 mg/dL Very High > or = 500 mg/dL WBC (Bld) [#/Vol] 8.9 10*3/uL 4.4-11.0 [facility] Blood erythrocytes count (nu mber/volume)Ordered By: Dominique Lang on 01-09-2023 RBC (Bld) [#/Vol] 3.99 10*6/uL 4.2-5.4 [facility] Blood hemoglobin measurement (mass/volume)Ordered By: Dominique Lang on 01-09-2023 Hemoglobin (Bld) [Mass/Vol] 11.3 g/dL 12.0-15.0 [facility] Blood lymphocytes/100 leukoc ytesOrdered By: Dominique Lang on 01-09-2023 Lymphocytes/100 WBC (Bld) 20.1 % 19-41 [facility] Blood monocytes/100 leukocyt esOrdered By: Dominique Lang on 01-09-2023 Monocytes/100 WBC (Bld) 6.7 % 0-10 [facility] Blood platelet mean volumeOr dered By: Dominique Lang on 01-09-2023 Platelet mean volume (Bld) [Entitic vol] 9.3 fL 6.2-12.0 [facility] Determination of erythrocyte mean corpuscular volume (MCV)Ordered By: Dominique Lang on 01-09-2023 MCV (RBC) [Entitic vol] 90.0 fL 81-99 [facility] Hematocrit Auto (Bld) [Volum e fraction]Ordered By: Dominique Lang on 01-09-2023 Hematocrit (Bld) [Volume fraction] 35.9 % 37-47 [facility] Laboratory - Chemistry and C hemistry - challengeOrdered By: Dominique Lang on 01-09-2023 ALP [Catalytic activity/Vol] 66 U/L 45-117 [facility] ALT [Catalytic activity/Vol] 27 U/L 13-56 [facility] CO2 [Moles/Vol] 28.0 mmol/L 21.0-32.0 [facility] Globulin (S) [Mass/Vol] 4.1 g/dL 2.2-4.2 [facility] Urea nitrogen/Creatinine [Mass ratio] 33.1 mg/mg 10-20 [facility] Laboratory - Hematology and Cell countsOrdered By: Dominique Lang on 01-09-2023 Erythrocyte distribution width (RBC) [Entitic vol] 49.2 fL 35.1-43.9 [facility] Erythrocyte distribution width (RBC) [Ratio] 14.8 % 11.6-14.6 [facility] Immature granulocytes/100 WBC (Bld) 0.200 % 0.0-0.9 [facility] Comment on above: IG% - Immature Granu locytes (promyelocytes, myelocytes and metamyelocytes) > 1% indicates that a LEFT SHIFT is Present. MCH (RBC) [Entitic mass] 28.3 pg 27.0-32.0 [facility] Nucleated RBC/100 WBC (Bld) [Ratio] 0 % 0-5 [facility] MCHC Auto (RBC) [Mass/Vol]Or dered By: Dominique Lang on 01-09-2023 MCHC (RBC) [Mass/Vol] 31.5 g/dL 32-36 [facility] No Panel InformationOrdered By: Dominique Lang on 01-09-2023 Estimated GFR (MDRD) Amer 46 mL/min >60 [facility] Comment on above: GFR Calc Estimated GFR (MDRD) Non-Af Amer 38 mL/min >60 [facility] Comment on above: Non- GFR Calc Parathyroid Hormone (Intact) 22.2 pg/mL 18.4-80.1 [facility] Vitamin B12 Level > 2000 pg/mL 211-911 [facility] Vitamin D 25-Hydroxy 51.7 ng/mL [facility] Comment on above: Vitamin D 25(OH) Sta tus Range Deficiency <20 ng/mL (50nmol/L) Insufficiency 20 - 30 ng/mL (50 - 75 nmol/L) Sufficiency 30 - 100 ng/mL (75 - 250 nmol/L) Toxicity >100 ng/mL (>250 nmol/L) Platelets bldOrdered By: Aren Lang on 01-09-2023 Platelets (Bld) [#/Vol] 308 10*3/uL 150-450 [facility] Serum or plasma albumin chris urement (mass/volume)Ordered By: Dominique Lang on 01-09-2023 Albumin [Mass/Vol] 3.7 g/dL 3.2-5.0 [facility] Serum or plasma albumin/glob ulin mass ratioOrdered By: Dominique Lang on 01-09-2023 Albumin/Globulin [Mass ratio] 0.9 {ratio} 0.9-2.4 [facility] Serum or plasma calcium chris urement (mass/volume)Ordered By: Dominique Lang on 01-09-2023 Calcium [Mass/Vol] 9.5 mg/dL 8.5-10.1 [facility] Serum or plasma cholesterol in HDL measurement (mass/volume)Ordered By: Dominique Lang on 01-09-2023 Cholesterol in HDL [Mass/Vol] 33 mg/dL >40 [facility] Comment on above: The drugs N-Acetylcy steine and Metamizole may falsely depress this assay. Reference Range HDL <40 mg/dL Low HDL Cholesterol HDL >or= 60 mg/dL High HDL Cholesterol Serum or plasma cholesterol in VLDL measurement (mass/volume)Ordered By: Dominique Lang on 01-09-2023 Cholesterol in VLDL [Mass/Vol] 54 mg/dL 5-40 [facility] Serum or plasma creatinine m easurement (mass/volume)Ordered By: Dominique Lang on 01-09-2023 Creatinine [Mass/Vol] 1.42 mg/dL 0.55-1.02 [facility] Comment on above: The validity of the calculated GFR & GFRAA in patients over 70 years has not been determined. Clinical correlation is essential. Serum or plasma low density lipoprotein (LDL) cholesterol measurement (mass/volume)Ordered By: Dominique Lang on 01-09-2023 Cholesterol in LDL [Mass/Vol] 45 mg/dL 0-130 [facility] Serum or plasma urea nitroge n measurement (mass/volume)Ordered By: Dominique Lang on 01-09-2023 Urea nitrogen [Mass/Vol] 47 mg/dL 7-18 [facility] Thin prep Papanicolaou smear with manual screeningOrdered By: Dominique Lang on 01-09-2023 Thin prep Papanicolaou smear with manual screening 54 U/L 15-37 [facility] Thin prep Papanicolaou smear with manual screening 9 5-15 [facility] Whole blood hemoglobin A1c/t otal hemoglobin ratio (mass fraction)Ordered By: Dominique Lang on 01-09-2023 HbA1c (Bld) [Mass fraction] 6.8 % 3.8-5.6 [facility] Comment on above: Normal < 5.7 % Predi abetic 5.7 - 6.4 % Diabetic >or= 6.5 % Please note range changes. Absolute lymphocyte countOrd ered By: Dr. Lang on 08-29-2022 Lymphocytes Auto (Unsp spec) [#/Vol] 1.27 10*3/uL 0.83-4.51 [facility] Basophil percentageOrdered B y: Dr. Lang on 08-29-2022 Basophil percentage 0-5 SEEN /hpf 0-5 [facility] Basophil percentage 2.7 mg/dL 2.5-4.9 [facility] Basophils/100 WBC (Bld) 0.1 % 0-1 [facility] Bilirubin [Mass/Vol] 0.40 mg/dL 0.20-1.00 [facility] Comment on above: For patients on eltr ombopag therapy, use of [place] [place] TBIL is not recommended. Chloride [Moles/Vol] 99 mmol/L 98-107 [facility] Cholesterol [Mass/Vol] 128 mg/dL <200 [facility] Comment on above: <200 mg/dL Desirable 200-240 mg/dL Borderline >240 mg/dL High Risk Eosinophils/100 WBC (Bld) 0.9 % 0-5 [facility] Glucose [Mass/Vol] 253 mg/dL 74-106 [facility] Comment on above: Glucose result great er than or equal to 200 mg/dLsuggests DIABETES MELLITUS per A.D.A. criteria. Neutrophils (Bld) [#/Vol] 5.4 10*3/uL 2.0-7.7 [facility] Neutrophils/100 WBC (Bld) 72.2 % 47-70 [facility] Potassium [Moles/Vol] 3.8 mmol/L 3.5-5.1 [facility] Protein [Mass/Vol] 7.2 g/dL 6.4-8.2 [facility] Sodium [Moles/Vol] 136 mmol/L 136-145 [facility] Triglyceride [Mass/Vol] 293 mg/dL <199 [facility] Comment on above: The drugs N-Acetylcy steine and Metamizole may falsely depress this assay.Serum Triglycerides Reference Interval Normal <150 mg/dL Borderline high 150 - 199 mg/dL High 200 - 499 mg/dL Very High > or = 500 mg/dL WBC (Bld) [#/Vol] 7.4 10*3/uL 4.4-11.0 [facility] Bilirubin Test strip Ql (U)O rdered By: Dr. Lang on 08-29-2022 Bilirubin Ql (U) Negative Negative [facility] Blood erythrocytes count (nu mber/volume)Ordered By: Dr. Lang on 08-29-2022 RBC (Bld) [#/Vol] 3.70 10*6/uL 4.2-5.4 [facility] Blood hemoglobin measurement (mass/volume)Ordered By: Dr. Lang on 08-29-2022 Hemoglobin (Bld) [Mass/Vol] 10.9 g/dL 12.0-15.0 [facility] Blood lymphocytes/100 leukoc ytesOrdered By: Dr. Lang on 08-29-2022 Lymphocytes/100 WBC (Bld) 17.1 % 19-41 [facility] Blood monocytes/100 leukocyt esOrdered By: Dr. Lang on 08-29-2022 Monocytes/100 WBC (Bld) 9.3 % 0-10 [facility] Blood platelet mean volumeOr dered By: Dr. Lang on 08-29-2022 Platelet mean volume (Bld) [Entitic vol] 9.3 fL 6.2-12.0 [facility] Determination of erythrocyte mean corpuscular volume (MCV)Ordered By: Dr. Lang on 08-29-2022 MCV (RBC) [Entitic vol] 92.7 fL 81-99 [facility] Hematocrit Auto (Bld) [Volum e fraction]Ordered By: Dr. Lang on 08-29-2022 Hematocrit (Bld) [Volume fraction] 34.3 % 37-47 [facility] Hyaline casts LM.LPF (Urine sed) [#/Area]Ordered By: Dr. Lang on 08-29-2022 Hyaline casts (Urine sed) [#/Area] 10 /[LPF] 0-5 [facility] Iron measurement (mass/mass) Ordered By: Dr. Lang on 08-29-2022 Iron (Unsp spec) [Mass/Mass] 56 ug/dL 50-170 [facility] Ketones Test strip Ql (U)Ord ered By: Dr. Lang on 08-29-2022 Ketones Ql (U) Negative Negative [facility] Laboratory - Chemistry and C hemistry - challengeOrdered By: Dr. Lang on 08-29-2022 ALP [Catalytic activity/Vol] 63 U/L 45-117 [facility] ALT [Catalytic activity/Vol] 20 U/L 13-56 [facility] CO2 [Moles/Vol] 26.0 mmol/L 21.0-32.0 [facility] Cobalamin (Vitamin B12) [Mass/Vol] 1065 pg/mL 211-911 [facility] Globulin (S) [Mass/Vol] 3.8 g/dL 2.2-4.2 [facility] Urea nitrogen/Creatinine [Mass ratio] 26.2 mg/mg 10-20 [facility] Laboratory - Hematology and Cell countsOrdered By: Dr. Lang on 08-29-2022 Erythrocyte distribution width (RBC) [Entitic vol] 46.5 fL 35.1-43.9 [facility] Erythrocyte distribution width (RBC) [Ratio] 13.7 % 11.6-14.6 [facility] Immature granulocytes/100 WBC (Bld) 0.400 % 0.0-0.9 [facility] Comment on above: IG% - Immature Granu locytes (promyelocytes, myelocytes and metamyelocytes) > 1% indicates that a LEFT SHIFT is Present. MCH (RBC) [Entitic mass] 29.5 pg 27.0-32.0 [facility] Nucleated RBC/100 WBC (Bld) [Ratio] 0 % 0-5 [facility] MCHC Auto (RBC) [Mass/Vol]Or dered By: Dr. Lang on 08-29-2022 MCHC (RBC) [Mass/Vol] 31.8 g/dL 32-36 [facility] Mucus LM Ql (Urine sed)Order ed By: Dr. Lang on 08-29-2022 Mucus Ql (Urine sed) 0 SEEN /hpf [facility] Nitrite Test strip Ql (U)Ord ered By: Dr. Lang on 08-29-2022 Nitrite Ql (U) Negative Negative [facility] No Panel InformationOrdered By: Dr. Lang on 08-29-2022 Urine Microalbumin/Creatinine Ratio 15.3 mg/g CRE <30 [facility] Estimated GFR (MDRD) Amer 54 mL/min >60 [facility] Comment on above: GFR Calc Estimated GFR (MDRD) Non-Af Amer 45 mL/min >60 [facility] Comment on above: Non- GFR Calc Parathyroid Hormone (Intact) 13.1 pg/mL 18.4-80.1 [facility] Total Iron Binding Capacity 407 ug/dL 250-450 [facility] Vitamin D 25-Hydroxy 47.1 ng/mL [facility] Comment on above: Vitamin D 25(OH) Sta tus Range Deficiency <20 ng/mL (50nmol/L) Insufficiency 20 - 30 ng/mL (50 - 75 nmol/L) Sufficiency 30 - 100 ng/mL (75 - 250 nmol/L) Toxicity >100 ng/mL (>250 nmol/L) Platelets bldOrdered By: Dr. Lang on 08-29-2022 Platelets (Bld) [#/Vol] 300 10*3/uL 150-450 [facility] Protein Test strip Ql (U)Ord ered By: Dr. Lang on 08-29-2022 Protein Ql (U) Negative Negative [facility] Serum or plasma albumin chris urement (mass/volume)Ordered By: Dr. Lang on 08-29-2022 Albumin [Mass/Vol] 3.4 g/dL 3.2-5.0 [facility] Serum or plasma albumin/glob ulin mass ratioOrdered By: Dr. Lang on 08-29-2022 Albumin/Globulin [Mass ratio] 0.9 {ratio} 0.9-2.4 [facility] Serum or plasma calcium chris urement (mass/volume)Ordered By: Dr. Lang on 08-29-2022 Calcium [Mass/Vol] 9.4 mg/dL 8.5-10.1 [facility] Serum or plasma cholesterol in HDL measurement (mass/volume)Ordered By: Dr. Lang on 08-29-2022 Cholesterol in HDL [Mass/Vol] 26 mg/dL >40 [facility] Comment on above: The drugs N-Acetylcy steine and Metamizole may falsely depress this assay. Reference Range HDL <40 mg/dL Low HDL Cholesterol HDL >or= 60 mg/dL High HDL Cholesterol Serum or plasma cholesterol in VLDL measurement (mass/volume)Ordered By: Dr. Lang on 08-29-2022 Cholesterol in VLDL [Mass/Vol] 59 mg/dL 5-40 [facility] Serum or plasma creatinine m easurement (mass/volume)Ordered By: Dr. Lang on 08-29-2022 Creatinine [Mass/Vol] 1.22 mg/dL 0.55-1.02 [facility] Comment on above: The validity of the calculated GFR & GFRAA in patients over 70 years has not been determined. Clinical correlation is essential. Serum or plasma ferritin rene surement (mass/volume)Ordered By: Dr. Lang on 08-29-2022 Ferritin [Mass/Vol] 69 ng/mL 8-252 [facility] Serum or plasma folate measu rement (mass/volume)Ordered By: Dr. Lang on 08-29-2022 Folate [Mass/Vol] 8.20 ng/mL 3.1-55.4 [facility] Comment on above: Slight Hemolysis, Re sult may be falsely increased. Serum or plasma low density lipoprotein (LDL) cholesterol measurement (mass/volume)Ordered By: Dr. Lang on 08-29-2022 Cholesterol in LDL [Mass/Vol] 43 mg/dL 0-130 [facility] Serum or plasma urea nitroge n measurement (mass/volume)Ordered By: Dr. Lang on 08-29-2022 Urea nitrogen [Mass/Vol] 32 mg/dL 7-18 [facility] Squamous epithelial cells de tection in urine sediment by light microscopyOrdered By: Dr. Lang on 08-29-2022 Epithelial cells.squamous LM Ql (Urine sed) 0 SEEN /hpf 5-10 [facility] Thin prep Papanicolaou smear with manual screeningOrdered By: Dr. Lang on 08-29-2022 Thin prep Papanicolaou smear with manual screening 6.7 mg/L NO RANGE EST. [facility] Thin prep Papanicolaou smear with manual screening 26 U/L 15-37 [facility] Thin prep Papanicolaou smear with manual screening 11 5-15 [facility] Urine blood detectionOrdered By: Dr. Lang on 08-29-2022 RBC Ql (U) Negative Negative [facility] RBC Ql (U) 0 SEEN /hpf 0-5 [facility] Urine clarityOrdered By: Dr. Lang on 08-29-2022 Clarity (U) Clear Clear [facility] Urine color determinationOrd ered By: Dr. Lang on 08-29-2022 Color (U) Yellow Yellow [facility] Urine creatinine measurement (mass/volume)Ordered By: Dr. Lang on 08-29-2022 Creatinine (U) [Mass/Vol] 43.50 mg/dL NO RANGE EST. [facility] Urine glucose detectionOrder ed By: Dr. Lang on 08-29-2022 Glucose Ql (U) Normal mg/dl Normal [facility] Urine leukocyte esterase det ection by dipstickOrdered By: Dr. Lang on 08-29-2022 Leukocyte esterase Test strip Ql (U) 25 /ul Negative [facility] Urine pHOrdered By: Dr. Janelle craft on 08-29-2022 pH (U) 5.0 [pH] 5.0 - 8.0 [facility] Urine protein measurement (m ass/volume)Ordered By: Dr. Lang on 08-29-2022 Protein (U) [Mass/Vol] mg/dL 0.0-11.8 [facility] Urine protein/creatinine mas s ratioOrdered By: Dr. Lang on 08-29-2022 Protein/Creatinine (U) [Mass ratio] TNP [facility] Comment on above: Test not performed Urine sediment bacteria coun t by microscopy (number/high power field)Ordered By: Dr. Lang on 08-29-2022 Bacteria LM.HPF (Urine sed) [#/Area] 0 /[HPF] None Seen [facility] Urine specific gravity measu rementOrdered By: Dr. Lang on 08-29-2022 Specific gravity (U) [Rel density] 1.020 1.002-1.030 [facility] Urobilinogen Auto test strip Ql (U)Ordered By: Dr. Lang on 08-29-2022 Urobilinogen Ql (U) Normal mg/dl Normal [facility] Whole blood hemoglobin A1c/t otal hemoglobin ratio (mass fraction)Ordered By: Dr. Lang on 08-29-2022 HbA1c (Bld) [Mass fraction] 7.2 % 3.8-5.6 [facility] Comment on above: Normal < 5.7 % Predi abetic 5.7 - 6.4 % Diabetic >or= 6.5 % Please note range changes. Absolute lymphocyte countOrd ered By: Dr. Lang on 06-08-2022 Lymphocytes Auto (Unsp spec) [#/Vol] 1.69 10*3/uL 0.83-4.51 [facility] Basophil percentageOrdered B y: Dr. Lang on 06-08-2022 Basophil percentage 0-5 SEEN /hpf 0-5 [facility] Basophil percentage 3.3 mg/dL 2.5-4.9 [facility] Basophils/100 WBC (Bld) 0.3 % 0-1 [facility] Bilirubin [Mass/Vol] 0.30 mg/dL 0.20-1.00 [facility] Comment on above: For patients on eltr ombopag therapy, use of Dimension [place] TBIL is not recommended. Chloride [Moles/Vol] 98 mmol/L 98-107 [facility] Cholesterol [Mass/Vol] 133 mg/dL <200 [facility] Comment on above: <200 mg/dL Desirable 200-240 mg/dL Borderline >240 mg/dL High Risk Eosinophils/100 WBC (Bld) 1.5 % 0-5 [facility] Glucose [Mass/Vol] 153 mg/dL 74-106 [facility] Comment on above: Fasting Glucose resu lt greater than or equal to 126 mg/dL suggests DIABETES MELLITUS per A.D.A. criteria. Neutrophils (Bld) [#/Vol] 4.3 10*3/uL 2.0-7.7 [facility] Neutrophils/100 WBC (Bld) 65.4 % 47-70 [facility] Potassium [Moles/Vol] 3.7 mmol/L 3.5-5.1 [facility] Protein [Mass/Vol] 7.3 g/dL 6.4-8.2 [facility] Sodium [Moles/Vol] 135 mmol/L 136-145 [facility] Triglyceride [Mass/Vol] 317 mg/dL <199 [facility] Comment on above: The drugs N-Acetylcy steine and Metamizole may falsely depress this assay.Serum Triglycerides Reference Interval Normal <150 mg/dL Borderline high 150 - 199 mg/dL High 200 - 499 mg/dL Very High > or = 500 mg/dL WBC (Bld) [#/Vol] 6.5 10*3/uL 4.4-11.0 [facility] Bilirubin Test strip Ql (U)O rdered By: Dr. Lang on 06-08-2022 Bilirubin Ql (U) Negative Negative [facility] Blood erythrocytes count (nu mber/volume)Ordered By: Dr. Lang on 06-08-2022 RBC (Bld) [#/Vol] 4.05 10*6/uL 4.2-5.4 [facility] Blood hemoglobin measurement (mass/volume)Ordered By: Dr. Lang on 06-08-2022 Hemoglobin (Bld) [Mass/Vol] 11.6 g/dL 12.0-15.0 [facility] Blood lymphocytes/100 leukoc ytesOrdered By: Dr. Lang on 06-08-2022 Lymphocytes/100 WBC (Bld) 26.0 % 19-41 [facility] Blood monocytes/100 leukocyt esOrdered By: Dr. Lang on 06-08-2022 Monocytes/100 WBC (Bld) 6.6 % 0-10 [facility] Blood platelet mean volumeOr dered By: Dr. Lang on 06-08-2022 Platelet mean volume (Bld) [Entitic vol] 9.6 fL 6.2-12.0 [facility] Determination of erythrocyte mean corpuscular volume (MCV)Ordered By: Dr. Lang on 06-08-2022 MCV (RBC) [Entitic vol] 91.4 fL 81-99 [facility] Hematocrit Auto (Bld) [Volum e fraction]Ordered By: Dr. Lang on 06-08-2022 Hematocrit (Bld) [Volume fraction] 37.0 % 37-47 [facility] Iron measurement (mass/mass) Ordered By: Dr. Lang on 06-08-2022 Iron (Unsp spec) [Mass/Mass] 69 ug/dL 50-170 [facility] Ketones Test strip Ql (U)Ord ered By: Dr. Lang on 06-08-2022 Ketones Ql (U) Negative Negative [facility] Laboratory - Chemistry and C hemistry - challengeOrdered By: Dr. Lang on 06-08-2022 ALP [Catalytic activity/Vol] 75 U/L 45-117 [facility] ALT [Catalytic activity/Vol] 24 U/L 13-56 [facility] CO2 [Moles/Vol] 32.0 mmol/L 21.0-32.0 [facility] Cobalamin (Vitamin B12) [Mass/Vol] 1287 pg/mL 211-911 [facility] Globulin (S) [Mass/Vol] 3.5 g/dL 2.2-4.2 [facility] Urea nitrogen/Creatinine [Mass ratio] 27.3 mg/mg 10-20 [facility] Laboratory - Hematology and Cell countsOrdered By: Dr. Lang on 06-08-2022 Erythrocyte distribution width (RBC) [Entitic vol] 47.8 fL 35.1-43.9 [facility] Erythrocyte distribution width (RBC) [Ratio] 14.2 % 11.6-14.6 [facility] Immature granulocytes/100 WBC (Bld) 0.200 % 0.0-0.9 [facility] Comment on above: IG% - Immature Granu locytes (promyelocytes, myelocytes and metamyelocytes) > 1% indicates that a LEFT SHIFT is Present. MCH (RBC) [Entitic mass] 28.6 pg 27.0-32.0 [facility] Nucleated RBC/100 WBC (Bld) [Ratio] 0 % 0-5 [facility] MCHC Auto (RBC) [Mass/Vol]Or dered By: Dr. Lang on 06-08-2022 MCHC (RBC) [Mass/Vol] 31.4 g/dL 32-36 [facility] Mucus LM Ql (Urine sed)Order ed By: Dr. Lang on 06-08-2022 Mucus Ql (Urine sed) 0 SEEN /hpf [facility] Nitrite Test strip Ql (U)Ord ered By: Dr. Lang on 06-08-2022 Nitrite Ql (U) Negative Negative [facility] No Panel InformationOrdered By: Dr. Lang on 06-08-2022 Estimated GFR (MDRD) Amer 50 mL/min >60 [facility] Comment on above: GFR Calc Estimated GFR (MDRD) Non-Af Amer 41 mL/min >60 [facility] Comment on above: Non- GFR Calc Parathyroid Hormone (Intact) 18.7 pg/mL 18.4-80.1 [facility] Total Iron Binding Capacity 437 ug/dL 250-450 [facility] Urine Microalbumin/Creatinine Ratio 36.5 mg/g CRE <30 [facility] Vitamin D 25-Hydroxy 43.6 ng/mL [facility] Comment on above: Vitamin D 25(OH) Sta tus Range Deficiency <20 ng/mL (50nmol/L) Insufficiency 20 - 30 ng/mL (50 - 75 nmol/L) Sufficiency 30 - 100 ng/mL (75 - 250 nmol/L) Toxicity >100 ng/mL (>250 nmol/L) Platelets bldOrdered By: Dr. Lang on 06-08-2022 Platelets (Bld) [#/Vol] 269 10*3/uL 150-450 [facility] Protein Test strip Ql (U)Ord ered By: Dr. Lang on 06-08-2022 Protein Ql (U) 15 mg/dl Negative [facility] Serum or plasma albumin chris urement (mass/volume)Ordered By: Dr. Lang on 06-08-2022 Albumin [Mass/Vol] 3.8 g/dL 3.2-5.0 [facility] Serum or plasma albumin/glob ulin mass ratioOrdered By: Dr. Lang on 06-08-2022 Albumin/Globulin [Mass ratio] 1.1 {ratio} 0.9-2.4 [facility] Serum or plasma calcium chris urement (mass/volume)Ordered By: Dr. Lang on 06-08-2022 Calcium [Mass/Vol] 9.6 mg/dL 8.5-10.1 [facility] Serum or plasma cholesterol in HDL measurement (mass/volume)Ordered By: Dr. Lang on 06-08-2022 Cholesterol in HDL [Mass/Vol] 29 mg/dL >40 [facility] Comment on above: The drugs N-Acetylcy steine and Metamizole may falsely depress this assay. Reference Range HDL <40 mg/dL Low HDL Cholesterol HDL >or= 60 mg/dL High HDL Cholesterol Serum or plasma cholesterol in VLDL measurement (mass/volume)Ordered By: Dr. Lang on 06-08-2022 Cholesterol in VLDL [Mass/Vol] 63 mg/dL 5-40 [facility] Serum or plasma creatinine m easurement (mass/volume)Ordered By: Dr. Lang on 06-08-2022 Creatinine [Mass/Vol] 1.32 mg/dL 0.55-1.02 [facility] Comment on above: The validity of the calculated GFR & GFRAA in patients over 70 years has not been determined. Clinical correlation is essential. Serum or plasma ferritin rene surement (mass/volume)Ordered By: Dr. Lang on 06-08-2022 Ferritin [Mass/Vol] 69 ng/mL 8-252 [facility] Serum or plasma folate measu rement (mass/volume)Ordered By: Dr. Lang on 06-08-2022 Folate [Mass/Vol] 14.80 ng/mL 3.1-55.4 [facility] Serum or plasma low density lipoprotein (LDL) cholesterol measurement (mass/volume)Ordered By: Dr. Lang on 06-08-2022 Cholesterol in LDL [Mass/Vol] 41 mg/dL 0-130 [facility] Serum or plasma urea nitroge n measurement (mass/volume)Ordered By: Dr. Lang on 06-08-2022 Urea nitrogen [Mass/Vol] 36 mg/dL 7-18 [facility] Squamous epithelial cells de tection in urine sediment by light microscopyOrdered By: Dr. Lang on 06-08-2022 Epithelial cells.squamous LM Ql (Urine sed) 0-5 SEEN /hpf 5-10 [facility] Thin prep Papanicolaou smear with manual screeningOrdered By: Dr. Lang on 06-08-2022 Thin prep Papanicolaou smear with manual screening 40 U/L 15-37 [facility] Thin prep Papanicolaou smear with manual screening 5 5-15 [facility] Thin prep Papanicolaou smear with manual screening 37.6 mg/L NO RANGE EST. [facility] Urine blood detectionOrdered By: Dr. Lang on 06-08-2022 RBC Ql (U) Negative Negative [facility] RBC Ql (U) 0 SEEN /hpf 0-5 [facility] Urine clarityOrdered By: Dr. Lang on 06-08-2022 Clarity (U) Clear Clear [facility] Urine color determinationOrd ered By: Dr. Lang on 06-08-2022 Color (U) Yellow Yellow [facility] Urine creatinine measurement (mass/volume)Ordered By: Dr. Lang on 06-08-2022 Creatinine (U) [Mass/Vol] 103.00 mg/dL NO RANGE EST. [facility] Urine glucose detectionOrder ed By: Dr. Lang on 06-08-2022 Glucose Ql (U) Normal mg/dl Normal [facility] Urine leukocyte esterase det ection by dipstickOrdered By: Dr. Lang on 06-08-2022 Leukocyte esterase Test strip Ql (U) 500 /ul Negative [facility] Urine pHOrdered By: Dr. Janelle craft on 06-08-2022 pH (U) 5.0 [pH] 5.0 - 8.0 [facility] Urine protein measurement (m ass/volume)Ordered By: Dr. Lang on 06-08-2022 Protein (U) [Mass/Vol] 11.6 mg/dL 0.0-11.8 [facility] Urine protein/creatinine mas s ratioOrdered By: Dr. Lang on 06-08-2022 Protein/Creatinine (U) [Mass ratio] 113 mg/g CRE 0-200 [facility] Urine sediment bacteria coun t by microscopy (number/high power field)Ordered By: Dr. Lang on 06-08-2022 Bacteria LM.HPF (Urine sed) [#/Area] 0 /[HPF] None Seen [facility] Urine specific gravity measu rementOrdered By: Dr. Lang on 06-08-2022 Specific gravity (U) [Rel density] 1.020 1.002-1.030 [facility] Urobilinogen Auto test strip Ql (U)Ordered By: Dr. Lang on 06-08-2022 Urobilinogen Ql (U) Normal mg/dl Normal [facility] Whole blood hemoglobin A1c/t otal hemoglobin ratio (mass fraction)Ordered By: Dr. Lang on 06-08-2022 HbA1c (Bld) [Mass fraction] 7.4 % 3.8-5.6 [facility] Comment on above: Normal < 5.7 % Predi abetic 5.7 - 6.4 % Diabetic >or= 6.5 % Please note range changes. Absolute lymphocyte countOrd ered By: Dr. Lang on 03-07-2022 Lymphocytes Auto (Unsp spec) [#/Vol] 1.00 10*3/uL 0.83-4.51 [facility] Basophil percentageOrdered B y: Dr. Lang on 03-07-2022 Basophils/100 WBC (Bld) 0.3 % 0-1 [facility] Bilirubin [Mass/Vol] 0.30 mg/dL 0.20-1.00 [facility] Comment on above: For patients on eltr ombopag therapy, use of [place] TBIL is not recommended. Chloride [Moles/Vol] 100 mmol/L 98-107 [facility] Cholesterol [Mass/Vol] 136 mg/dL <200 [facility] Comment on above: <200 mg/dL Desirable 200-240 mg/dL Borderline >240 mg/dL High Risk Eosinophils/100 WBC (Bld) 1.2 % 0-5 [facility] Glucose [Mass/Vol] 223 mg/dL 74-106 [facility] Comment on above: Glucose result great er than or equal to 200 mg/dLsuggests DIABETES MELLITUS per A.D.A. criteria. Neutrophils (Bld) [#/Vol] 5.7 10*3/uL 2.0-7.7 [facility] Neutrophils/100 WBC (Bld) 76.5 % 47-70 [facility] Potassium [Moles/Vol] 3.9 mmol/L 3.5-5.1 [facility] Protein [Mass/Vol] 6.9 g/dL 6.4-8.2 [facility] Sodium [Moles/Vol] 139 mmol/L 136-145 [facility] Triglyceride [Mass/Vol] 255 mg/dL <199 [facility] Comment on above: The drugs N-Acetylcy steine and Metamizole may falsely depress this assay.Serum Triglycerides Reference Interval Normal <150 mg/dL Borderline high 150 - 199 mg/dL High 200 - 499 mg/dL Very High > or = 500 mg/dL WBC (Bld) [#/Vol] 7.4 10*3/uL 4.4-11.0 [facility] Blood erythrocytes count (nu mber/volume)Ordered By: Dr. Lang on 03-07-2022 RBC (Bld) [#/Vol] 4.01 10*6/uL 4.2-5.4 [facility] Blood hemoglobin measurement (mass/volume)Ordered By: Dr. Lang on 03-07-2022 Hemoglobin (Bld) [Mass/Vol] 11.8 g/dL 12.0-15.0 [facility] Blood lymphocytes/100 leukoc ytesOrdered By: Dr. Lang on 03-07-2022 Lymphocytes/100 WBC (Bld) 13.5 % 19-41 [facility] Blood monocytes/100 leukocyt esOrdered By: Dr. Lang on 03-07-2022 Monocytes/100 WBC (Bld) 8.2 % 0-10 [facility] Blood platelet mean volumeOr dered By: Dr. Lang on 03-07-2022 Platelet mean volume (Bld) [Entitic vol] 9.4 fL 6.2-12.0 [facility] Determination of erythrocyte mean corpuscular volume (MCV)Ordered By: Dr. Lang on 03-07-2022 MCV (RBC) [Entitic vol] 91.8 fL 81-99 [facility] Hematocrit Auto (Bld) [Volum e fraction]Ordered By: Dr. Lang on 03-07-2022 Hematocrit (Bld) [Volume fraction] 36.8 % 37-47 [facility] Iron measurement (mass/mass) Ordered By: Dr. Lang on 03-07-2022 Iron (Unsp spec) [Mass/Mass] 59 ug/dL 50-170 [facility] Laboratory - Chemistry and C hemistry - challengeOrdered By: Dr. Lang on 03-07-2022 ALP [Catalytic activity/Vol] 94 U/L 45-117 [facility] ALT [Catalytic activity/Vol] 30 U/L 13-56 [facility] CO2 [Moles/Vol] 28.0 mmol/L 21.0-32.0 [facility] Cobalamin (Vitamin B12) [Mass/Vol] 1744 pg/mL 211-911 [facility] Globulin (S) [Mass/Vol] 3.4 g/dL 2.2-4.2 [facility] Urea nitrogen/Creatinine [Mass ratio] 24.2 mg/mg 10-20 [facility] Laboratory - Hematology and Cell countsOrdered By: Dr. Lang on 03-07-2022 Erythrocyte distribution width (RBC) [Entitic vol] 45.5 fL 35.1-43.9 [facility] Erythrocyte distribution width (RBC) [Ratio] 13.4 % 11.6-14.6 [facility] Immature granulocytes/100 WBC (Bld) 0.300 % 0.0-0.9 [facility] Comment on above: IG% - Immature Granu locytes (promyelocytes, myelocytes and metamyelocytes) > 1% indicates that a LEFT SHIFT is Present. MCH (RBC) [Entitic mass] 29.4 pg 27.0-32.0 [facility] Nucleated RBC/100 WBC (Bld) [Ratio] 0 % 0-5 [facility] MCHC Auto (RBC) [Mass/Vol]Or dered By: Dr. Lang on 03-07-2022 MCHC (RBC) [Mass/Vol] 32.1 g/dL 32-36 [facility] No Panel InformationOrdered By: Dr. Lang on 03-07-2022 Estimated GFR (MDRD) Amer 69 mL/min >60 [facility] Comment on above: GFR Calc Estimated GFR (MDRD) Non-Af Amer 57 mL/min >60 [facility] Comment on above: Non- GFR Calc Total Iron Binding Capacity 317 ug/dL 250-450 [facility] Vitamin D 25-Hydroxy 41.1 ng/mL [facility] Comment on above: Vitamin D 25(OH) Sta tus Range Deficiency <20 ng/mL (50nmol/L) Insufficiency 20 - 30 ng/mL (50 - 75 nmol/L) Sufficiency 30 - 100 ng/mL (75 - 250 nmol/L) Toxicity >100 ng/mL (>250 nmol/L) Platelets bldOrdered By: Dr. Lang on 03-07-2022 Platelets (Bld) [#/Vol] 203 10*3/uL 150-450 [facility] Serum or plasma albumin chris urement (mass/volume)Ordered By: Dr. Lang on 03-07-2022 Albumin [Mass/Vol] 3.5 g/dL 3.2-5.0 [facility] Serum or plasma albumin/glob ulin mass ratioOrdered By: Dr. Lang on 03-07-2022 Albumin/Globulin [Mass ratio] 1.0 {ratio} 0.9-2.4 [facility] Serum or plasma calcium chris urement (mass/volume)Ordered By: Dr. Lang on 03-07-2022 Calcium [Mass/Vol] 9.3 mg/dL 8.5-10.1 [facility] Serum or plasma cholesterol in HDL measurement (mass/volume)Ordered By: Dr. Lang on 03-07-2022 Cholesterol in HDL [Mass/Vol] 49 mg/dL >40 [facility] Comment on above: The drugs N-Acetylcy steine and Metamizole may falsely depress this assay. Reference Range HDL <40 mg/dL Low HDL Cholesterol HDL >or= 60 mg/dL High HDL Cholesterol Serum or plasma cholesterol in VLDL measurement (mass/volume)Ordered By: Dr. Lang on 03-07-2022 Cholesterol in VLDL [Mass/Vol] 51 mg/dL 5-40 [facility] Serum or plasma creatinine m easurement (mass/volume)Ordered By: Dr. Lang on 03-07-2022 Creatinine [Mass/Vol] 0.99 mg/dL 0.55-1.02 [facility] Comment on above: The validity of the calculated GFR & GFRAA in patients over 70 years has not been determined. Clinical correlation is essential. Serum or plasma ferritin rene surement (mass/volume)Ordered By: Dr. Lang on 03-07-2022 Ferritin [Mass/Vol] 60 ng/mL 8-252 [facility] Serum or plasma folate measu rement (mass/volume)Ordered By: Dr. Lang on 03-07-2022 Folate [Mass/Vol] 15.20 ng/mL 3.1-55.4 [facility] Serum or plasma low density lipoprotein (LDL) cholesterol measurement (mass/volume)Ordered By: Dr. Lang on 03-07-2022 Cholesterol in LDL [Mass/Vol] 36 mg/dL 0-130 [facility] Serum or plasma urea nitroge n measurement (mass/volume)Ordered By: Dr. Lang on 03-07-2022 Urea nitrogen [Mass/Vol] 24 mg/dL 7-18 [facility] Thin prep Papanicolaou smear with manual screeningOrdered By: Dr. Lang on 03-07-2022 Thin prep Papanicolaou smear with manual screening 28 U/L 15-37 [facility] Thin prep Papanicolaou smear with manual screening 11 5-15 [facility] Whole blood hemoglobin A1c/t otal hemoglobin ratio (mass fraction)Ordered By: Dr. Lang on 03-07-2022 HbA1c (Bld) [Mass fraction] 6.4 % 3.8-5.6 [facility] Comment on above: Normal < 5.7 % Predi abetic 5.7 - 6.4 % Diabetic >or= 6.5 % Please note range changes. Basophil percentageon 2021 Basophil percentage 0 SEEN /hpf 0-5 [facility] Work Phone: Bilirubin Test strip Ql (U)o n 12-01-2021 Bilirubin Ql (U) Negative Negative [facility] Work Phone: Ketones Test strip Ql (U)on 12-01-2021 Ketones Ql (U) Negative Negative [facility] Work Phone: Mucus LM Ql (Urine sed)on Mucus Ql (Urine sed) 0 SEEN /hpf [facility] Work Phone: Nitrite Test strip Ql (U)on 12-01-2021 Nitrite Ql (U) Negative Negative [facility] Work Phone: No Panel Informationon 12-01 Urine Microalbumin/Creatinine Ratio 7.8 mg/g CRE <30 [facility] Work Phone: Protein Test strip Ql (U)on 12-01-2021 Protein Ql (U) Negative Negative [facility] Work Phone: Squamous epithelial cells de tection in urine sediment by light microscopyon 12-01-2021 Epithelial cells.squamous LM Ql (Urine sed) 0 SEEN /hpf 5-10 [facility] Work Phone: Thin prep Papanicolaou smear with manual screeningon 12-01-2021 Thin prep Papanicolaou smear with manual screening 5.0 mg/L NO RANGE EST. [facility] Work Phone: Urine blood detectionon 11-16 RBC Ql (U) Negative Negative [facility] Work Phone: RBC Ql (U) 0 SEEN /hpf 0-5 [facility] Work Phone: Urine clarityon 12-01-2021 Clarity (U) Sl. Cloudy Clear [facility] Work Phone: Urine color determinationon 12-01-2021 Color (U) Yellow Yellow [facility] Work Phone: Urine creatinine measurement (mass/volume)on 12-01-2021 Creatinine (U) [Mass/Vol] 64.60 mg/dL NO RANGE EST. [facility] Work Phone: Urine glucose detectionon Glucose Ql (U) Normal mg/dl Normal [facility] Work Phone: Urine leukocyte esterase det ection by dipstickon 12-01-2021 Leukocyte esterase Test strip Ql (U) Negative Negative [facility] Work Phone: Urine pHon 12-01-2021 pH (U) 6.5 [pH] 5.0 - 8.0 [facility] Work Phone: Urine protein measurement (m ass/volume)on 12-01-2021 Protein (U) [Mass/Vol] mg/dL 0.0-11.8 [facility] Work Phone: Urine protein/creatinine mas s ratioon 12-01-2021 Protein/Creatinine (U) [Mass ratio] TNP [facility] Work Phone: Comment on above: Test not performed Urine sediment bacteria coun t by microscopy (number/high power field)on 12-01-2021 Bacteria LM.HPF (Urine sed) [#/Area] 0 /[HPF] None Seen [facility] Work Phone: Urine specific gravity measu rementon 12-01-2021 Specific gravity (U) [Rel density] 1.015 1.002-1.030 [facility] Work Phone: Urobilinogen Auto test strip Ql (U)on 12-01-2021 Urobilinogen Ql (U) Normal mg/dl Normal [facility] Work Phone: Absolute lymphocyte counton 10-19-2021 Lymphocytes Auto (Unsp spec) [#/Vol] 1.06 10*3/uL 0.83-4.51 [facility] Work Phone: Basophil percentageon 2021 Basophil percentage 3.2 mg/dL 2.5-4.9 [facility] Work Phone: Basophils/100 WBC (Bld) 0.2 % 0-1 [facility] Work Phone: Bilirubin [Mass/Vol] 0.30 mg/dL 0.20-1.00 [facility] Work Phone: Comment on above: For patients on eltr ombopag therapy, use of [employer] [place] TBIL is not recommended. Chloride [Moles/Vol] 97 mmol/L 98-107 [facility] Work Phone: Cholesterol [Mass/Vol] 158 mg/dL <200 [facility] Work Phone: Comment on above: <200 mg/dL Desirable 200-240 mg/dL Borderline >240 mg/dL High Risk Eosinophils/100 WBC (Bld) 2.2 % 0-5 [facility] Work Phone: Glucose [Mass/Vol] 280 mg/dL 74-106 [facility] Work Phone: Comment on above: Glucose result great er than or equal to 200 mg/dLsuggests DIABETES MELLITUS per A.D.A. criteria. Neutrophils (Bld) [#/Vol] 4.2 10*3/uL 2.0-7.7 [facility] Work Phone: Neutrophils/100 WBC (Bld) 70.6 % 47-70 [facility] Work Phone: Potassium [Moles/Vol] 4.0 mmol/L 3.5-5.1 [facility] Work Phone: Protein [Mass/Vol] 7.2 g/dL 6.4-8.2 [facility] Work Phone: Sodium [Moles/Vol] 135 mmol/L 136-145 [facility] Work Phone: Triglyceride [Mass/Vol] 228 mg/dL <199 [facility] Work Phone: Comment on above: The drugs N-Acetylcy steine and Metamizole may falsely depress this assay.Serum Triglycerides Reference Interval Normal <150 mg/dL Borderline high 150 - 199 mg/dL High 200 - 499 mg/dL Very High > or = 500 mg/dL WBC (Bld) [#/Vol] 5.9 10*3/uL 4.4-11.0 [facility] Work Phone: Blood erythrocytes count (nu mber/volume)on 10-19-2021 RBC (Bld) [#/Vol] 3.74 10*6/uL 4.2-5.4 [facility] Work Phone: Blood hemoglobin measurement (mass/volume)on 10-19-2021 Hemoglobin (Bld) [Mass/Vol] 11.3 g/dL 12.0-15.0 [facility] Work Phone: Blood lymphocytes/100 leukoc yteson 10-19-2021 Lymphocytes/100 WBC (Bld) 17.9 % 19-41 [facility] Work Phone: Blood monocytes/100 leukocyt eson 10-19-2021 Monocytes/100 WBC (Bld) 8.8 % 0-10 [facility] Work Phone: Blood platelet mean volumeon 10-19-2021 Platelet mean volume (Bld) [Entitic vol] 9.1 fL 6.2-12.0 [facility] Work Phone: Determination of erythrocyte mean corpuscular volume (MCV)on 10-19-2021 MCV (RBC) [Entitic vol] 91.7 fL 81-99 [facility] Work Phone: [phone] Hematocrit Auto (Bld) [Volum e fraction]on 10-19-2021 Hematocrit (Bld) [Volume fraction] 34.3 % 37-47 [facility] Work Phone: Iron measurement (mass/mass) on 10-19-2021 Iron (Unsp spec) [Mass/Mass] 86 ug/dL 50-170 [facility] Work Phone: Laboratory - Chemistry and C hemistry - challengeon 10-19-2021 ALP [Catalytic activity/Vol] 95 U/L 45-117 [facility] Work Phone: ALT [Catalytic activity/Vol] 20 U/L 13-56 [facility] Work Phone: CO2 [Moles/Vol] 32.0 mmol/L 21.0-32.0 [facility] Work Phone: Cobalamin (Vitamin B12) [Mass/Vol] 1220 pg/mL 211-911 [facility] Work Phone: Globulin (S) [Mass/Vol] 3.8 g/dL 2.2-4.2 [facility] Work Phone: Urea nitrogen/Creatinine [Mass ratio] 21.7 mg/mg 10-20 [facility] Work Phone: Laboratory - Hematology and Cell countson 10-19-2021 Erythrocyte distribution width (RBC) [Entitic vol] 43.5 fL 35.1-43.9 [facility] Work Phone: Erythrocyte distribution width (RBC) [Ratio] 12.8 % 11.6-14.6 [facility] Work Phone: Immature granulocytes/100 WBC (Bld) 0.300 % 0.0-0.9 [facility] Work Phone: Comment on above: IG% - Immature Granu locytes (promyelocytes, myelocytes and metamyelocytes) > 1% indicates that a LEFT SHIFT is Present. MCH (RBC) [Entitic mass] 30.2 pg 27.0-32.0 [facility] Work Phone: Nucleated RBC/100 WBC (Bld) [Ratio] 0 % 0-5 [facility] Work Phone: MCHC Auto (RBC) [Mass/Vol]on 10-19-2021 MCHC (RBC) [Mass/Vol] 32.9 g/dL 32-36 [facility] Work Phone: No Panel Informationon 10-19 Estimated GFR (MDRD) Amer 51 mL/min >60 [facility] Work Phone: Comment on above: GFR Calc Estimated GFR (MDRD) Non-Af Amer 42 mL/min >60 [facility] Work Phone: Comment on above: Non- GFR Calc Parathyroid Hormone (Intact) 27.1 pg/mL 18.4-80.1 [facility] Work Phone: Total Iron Binding Capacity 395 ug/dL 250-450 [facility] Work Phone: Vitamin D 25-Hydroxy 42.9 ng/mL [facility] Work Phone: Comment on above: Vitamin D 25(OH) Sta tus Range Deficiency <20 ng/mL (50nmol/L) Insufficiency 20 - 30 ng/mL (50 - 75 nmol/L) Sufficiency 30 - 100 ng/mL (75 - 250 nmol/L) Toxicity >100 ng/mL (>250 nmol/L) Platelets bldon 10-19-2021 Platelets (Bld) [#/Vol] 231 10*3/uL 150-450 [facility] Work Phone: Serum or plasma albumin chris urement (mass/volume)on 10-19-2021 Albumin [Mass/Vol] 3.4 g/dL 3.2-5.0 [facility] Work Phone: Serum or plasma albumin/glob ulin mass ratioon 10-19-2021 Albumin/Globulin [Mass ratio] 0.9 {ratio} 0.9-2.4 [facility] Work Phone: Serum or plasma calcium chris urement (mass/volume)on 10-19-2021 Calcium [Mass/Vol] 8.9 mg/dL 8.5-10.1 [facility] Work Phone: Serum or plasma cholesterol in HDL measurement (mass/volume)on 10-19-2021 Cholesterol in HDL [Mass/Vol] 39 mg/dL >40 [facility] Work Phone: Comment on above: The drugs N-Acetylcy steine and Metamizole may falsely depress this assay. Reference Range HDL <40 mg/dL Low HDL Cholesterol HDL >or= 60 mg/dL High HDL Cholesterol Serum or plasma cholesterol in VLDL measurement (mass/volume)on 10-19-2021 Cholesterol in VLDL [Mass/Vol] 46 mg/dL 5-40 [facility] Work Phone: Serum or plasma creatinine m easurement (mass/volume)on 10-19-2021 Creatinine [Mass/Vol] 1.29 mg/dL 0.55-1.02 [facility] Work Phone: Comment on above: The validity of the calculated GFR & GFRAA in patients over 70 years has not been determined. Clinical correlation is essential. Serum or plasma ferritin rene surement (mass/volume)on 10-19-2021 Ferritin [Mass/Vol] 75 ng/mL 8-252 [facility] Work Phone: Serum or plasma folate measu rement (mass/volume)on 10-19-2021 Folate [Mass/Vol] 36.70 ng/mL 3.1-55.4 [facility] Work Phone: Serum or plasma low density lipoprotein (LDL) cholesterol measurement (mass/volume)on 10-19-2021 Cholesterol in LDL [Mass/Vol] 73 mg/dL 0-130 [facility] Work Phone: Serum or plasma urea nitroge n measurement (mass/volume)on 10-19-2021 Urea nitrogen [Mass/Vol] 28 mg/dL 7-18 [facility] Work Phone: Thin prep Papanicolaou smear with manual screeningon 10-19-2021 Thin prep Papanicolaou smear with manual screening 20 U/L 15-37 [facility] Work Phone: Thin prep Papanicolaou smear with manual screening 6 5-15 [facility] Work Phone: Whole blood hemoglobin A1c/t otal hemoglobin ratio (mass fraction)on 10-19-2021 HbA1c (Bld) [Mass fraction] 6.8 % 3.8-5.6 [facility] Work Phone: Comment on above: Normal < 5.7 % Predi abetic 5.7 - 6.4 % Diabetic >or= 6.5 % Please note range changes. Basophil percentageon 2021 Basophil percentage 0-5 SEEN /hpf 0-5 [facility] Work Phone: Bilirubin Test strip Ql (U)o n 08-11-2021 Bilirubin Ql (U) Negative Negative [facility] Work Phone: Ketones Test strip Ql (U)on 08-11-2021 Ketones Ql (U) Negative Negative [facility] Work Phone: Mucus LM Ql (Urine sed)on Mucus Ql (Urine sed) 0 SEEN /hpf [facility] Work Phone: Nitrite Test strip Ql (U)on 08-11-2021 Nitrite Ql (U) Negative Negative [facility] Work Phone: No Panel Informationon 08-11 Urine Microalbumin/Creatinine Ratio TNP [facility] Work Phone: Comment on above: Test not performed Protein Test strip Ql (U)on 08-11-2021 Protein Ql (U) Negative Negative [facility] Work Phone: Squamous epithelial cells de tection in urine sediment by light microscopyon 08-11-2021 Epithelial cells.squamous LM Ql (Urine sed) 0-5 SEEN /hpf 5-10 [facility] Work Phone: Thin prep Papanicolaou smear with manual screeningon 08-11-2021 Thin prep Papanicolaou smear with manual screening < 5.0 mg/L NO RANGE EST. [facility] Work Phone: Urine blood detectionon 07-17 RBC Ql (U) Negative Negative [facility] Work Phone: RBC Ql (U) 0-5 SEEN /hpf 0-5 [facility] Work Phone: Urine clarityon 08-11-2021 Clarity (U) Sl. Cloudy Clear [facility] Work Phone: Urine color determinationon 08-11-2021 Color (U) Yellow Yellow [facility] Work Phone: Urine creatinine measurement (mass/volume)on 08-11-2021 Creatinine (U) [Mass/Vol] 82.30 mg/dL NO RANGE EST. [facility] Work Phone: Urine glucose detectionon Glucose Ql (U) Normal mg/dl Normal [facility] Work Phone: Urine leukocyte esterase det ection by dipstickon 08-11-2021 Leukocyte esterase Test strip Ql (U) 25 /ul Negative [facility] Work Phone: Urine pHon 08-11-2021 pH (U) 6.0 [pH] 5.0 - 8.0 [facility] Work Phone: Urine protein measurement (m ass/volume)on 08-11-2021 Protein (U) [Mass/Vol] 10.1 mg/dL 0.0-11.8 [facility] Work Phone: Urine protein/creatinine mas s ratioon 08-11-2021 Protein/Creatinine (U) [Mass ratio] 123 mg/g CRE 0-200 [facility] Work Phone: Urine sediment bacteria coun t by microscopy (number/high power field)on 08-11-2021 Bacteria LM.HPF (Urine sed) [#/Area] 4 /[HPF] None Seen [facility] Work Phone: Urine specific gravity measu rementon 08-11-2021 Specific gravity (U) [Rel density] 1.015 1.002-1.030 [facility] Work Phone: Urobilinogen Auto test strip Ql (U)on 08-11-2021 Urobilinogen Ql (U) Normal mg/dl Normal [facility] Work Phone: Absolute lymphocyte counton 08-04-2021 Lymphocytes Auto (Unsp spec) [#/Vol] 1.18 10*3/uL 0.83-4.51 [facility] Work Phone: Basophil percentageon 2021 Basophil percentage 3.1 mg/dL 2.5-4.9 [facility] Work Phone: Basophils/100 WBC (Bld) 0.2 % 0-1 [facility] Work Phone: Bilirubin [Mass/Vol] 0.50 mg/dL 0.20-1.00 [facility] Work Phone: Comment on above: For patients on eltr ombopag therapy, use of [place] [place] TBIL is not recommended. Chloride [Moles/Vol] 99 mmol/L 98-107 [facility] Work Phone: Cholesterol [Mass/Vol] 216 mg/dL <200 [facility] Work Phone: Comment on above: <200 mg/dL Desirable 200-240 mg/dL Borderline >240 mg/dL High Risk Eosinophils/100 WBC (Bld) 0.5 % 0-5 [facility] Work Phone: Glucose [Mass/Vol] 135 mg/dL 74-106 [facility] Work Phone: Comment on above: Fasting Glucose resu lt greater than or equal to 126 mg/dL suggests DIABETES MELLITUS per A.D.A. criteria. Neutrophils (Bld) [#/Vol] 4.5 10*3/uL 2.0-7.7 [facility] Work Phone: Neutrophils/100 WBC (Bld) 72.7 % 47-70 [facility] Work Phone: Potassium [Moles/Vol] 4.2 mmol/L 3.5-5.1 [facility] Work Phone: Protein [Mass/Vol] 7.7 g/dL 6.4-8.2 [facility] Work Phone: Sodium [Moles/Vol] 134 mmol/L 136-145 [facility] Work Phone: Triglyceride [Mass/Vol] 302 mg/dL <199 [facility] Work Phone: Comment on above: The drugs N-Acetylcy steine and Metamizole may falsely depress this assay.Serum Triglycerides Reference Interval Normal <150 mg/dL Borderline high 150 - 199 mg/dL High 200 - 499 mg/dL Very High > or = 500 mg/dL WBC (Bld) [#/Vol] 6.2 10*3/uL 4.4-11.0 [facility] Work Phone: Blood erythrocytes count (nu mber/volume)on 08-04-2021 RBC (Bld) [#/Vol] 3.77 10*6/uL 4.2-5.4 [facility] Work Phone: Blood hemoglobin measurement (mass/volume)on 08-04-2021 Hemoglobin (Bld) [Mass/Vol] 11.3 g/dL 12.0-15.0 [facility] Work Phone: Blood lymphocytes/100 leukoc yteson 08-04-2021 Lymphocytes/100 WBC (Bld) 19.0 % 19-41 [facility] Work Phone: Blood monocytes/100 leukocyt eson 08-04-2021 Monocytes/100 WBC (Bld) 7.3 % 0-10 [facility] Work Phone: Blood platelet mean volumeon 08-04-2021 Platelet mean volume (Bld) [Entitic vol] 9.0 fL 6.2-12.0 [facility] Work Phone: Determination of erythrocyte mean corpuscular volume (MCV)on 08-04-2021 MCV (RBC) [Entitic vol] 93.6 fL 81-99 [facility] Work Phone: Hematocrit Auto (Bld) [Volum e fraction]on 08-04-2021 Hematocrit (Bld) [Volume fraction] 35.3 % 37-47 [facility] Work Phone: Iron measurement (mass/mass) on 08-04-2021 Iron (Unsp spec) [Mass/Mass] 125 ug/dL 50-170 [facility] Work Phone: Laboratory - Chemistry and C hemistry - challengeon 08-04-2021 ALP [Catalytic activity/Vol] 87 U/L 45-117 [facility] Work Phone: ALT [Catalytic activity/Vol] 22 U/L 13-56 [facility] Work Phone: CO2 [Moles/Vol] 27.0 mmol/L 21.0-32.0 [facility] Work Phone: Cobalamin (Vitamin B12) [Mass/Vol] 680 pg/mL 211-911 [facility] Work Phone: Globulin (S) [Mass/Vol] 3.9 g/dL 2.2-4.2 [facility] Work Phone: Urea nitrogen/Creatinine [Mass ratio] 19.4 mg/mg 10-20 [facility] Work Phone: Laboratory - Hematology and Cell countson 08-04-2021 Erythrocyte distribution width (RBC) [Entitic vol] 46.0 fL 35.1-43.9 [facility] Work Phone: Erythrocyte distribution width (RBC) [Ratio] 13.4 % 11.6-14.6 [facility] Work Phone: Immature granulocytes/100 WBC (Bld) 0.300 % 0.0-0.9 [facility] Work Phone: Comment on above: IG% - Immature Granu locytes (promyelocytes, myelocytes and metamyelocytes) > 1% indicates that a LEFT SHIFT is Present. MCH (RBC) [Entitic mass] 30.0 pg 27.0-32.0 [facility] Work Phone: Nucleated RBC/100 WBC (Bld) [Ratio] 0 % 0-5 [facility] Work Phone: MCHC Auto (RBC) [Mass/Vol]on 08-04-2021 MCHC (RBC) [Mass/Vol] 32.0 g/dL 32-36 [facility] Work Phone: No Panel Informationon 08-04 Estimated GFR (MDRD) Amer 47 mL/min >60 [facility] Work Phone: Comment on above: GFR Calc Estimated GFR (MDRD) Non-Af Amer 39 mL/min >60 [facility] Work Phone: Comment on above: Non- GFR Calc Parathyroid Hormone (Intact) 14.6 pg/mL 18.4-80.1 [facility] Work Phone: Total Iron Binding Capacity 379 ug/dL 250-450 [facility] Work Phone: Vitamin D 25-Hydroxy 41.4 ng/mL [facility] Work Phone: Comment on above: Vitamin D 25(OH) Sta tus Range Deficiency <20 ng/mL (50nmol/L) Insufficiency 20 - 30 ng/mL (50 - 75 nmol/L) Sufficiency 30 - 100 ng/mL (75 - 250 nmol/L) Toxicity >100 ng/mL (>250 nmol/L) Platelets bldon 08-04-2021 Platelets (Bld) [#/Vol] 352 10*3/uL 150-450 [facility] Work Phone: Serum or plasma albumin chris urement (mass/volume)on 08-04-2021 Albumin [Mass/Vol] 3.8 g/dL 3.2-5.0 [facility] Work Phone: Serum or plasma albumin/glob ulin mass ratioon 08-04-2021 Albumin/Globulin [Mass ratio] 1.0 {ratio} 0.9-2.4 [facility] Work Phone: Serum or plasma calcium chris urement (mass/volume)on 08-04-2021 Calcium [Mass/Vol] 9.8 mg/dL 8.5-10.1 [facility] Work Phone: Serum or plasma cholesterol in HDL measurement (mass/volume)on 08-04-2021 Cholesterol in HDL [Mass/Vol] 36 mg/dL >40 [facility] Work Phone: Comment on above: The drugs N-Acetylcy steine and Metamizole may falsely depress this assay. Reference Range HDL <40 mg/dL Low HDL Cholesterol HDL >or= 60 mg/dL High HDL Cholesterol Serum or plasma cholesterol in VLDL measurement (mass/volume)on 08-04-2021 Cholesterol in VLDL [Mass/Vol] 60 mg/dL 5-40 [facility] Work Phone: Serum or plasma creatinine m easurement (mass/volume)on 08-04-2021 Creatinine [Mass/Vol] 1.39 mg/dL 0.55-1.02 [facility] Work Phone: Comment on above: The validity of the calculated GFR & GFRAA in patients over 70 years has not been determined. Clinical correlation is essential. Serum or plasma ferritin rene surement (mass/volume)on 08-04-2021 Ferritin [Mass/Vol] 209 ng/mL 8-252 [facility] Work Phone: Serum or plasma folate measu rement (mass/volume)on 08-04-2021 Folate [Mass/Vol] 12.50 ng/mL 3.1-55.4 [facility] Work Phone: Comment on above: Slight Hemolysis, Re sult may be falsely increased. Serum or plasma low density lipoprotein (LDL) cholesterol measurement (mass/volume)on 08-04-2021 Cholesterol in LDL [Mass/Vol] 120 mg/dL 0-130 [facility] Work Phone: Serum or plasma urea nitroge n measurement (mass/volume)on 08-04-2021 Urea nitrogen [Mass/Vol] 27 mg/dL 7-18 [facility] Work Phone: Thin prep Papanicolaou smear with manual screeningon 08-04-2021 Thin prep Papanicolaou smear with manual screening 43 U/L 15-37 [facility] Work Phone: Thin prep Papanicolaou smear with manual screening 8 5-15 [facility] Work Phone: Whole blood hemoglobin A1c/t otal hemoglobin ratio (mass fraction)on 08-04-2021 HbA1c (Bld) [Mass fraction] 6.2 % 3.8-5.6 [facility] Work Phone: Comment on above: Normal < 5.7 % Predi abetic 5.7 - 6.4 % Diabetic >or= 6.5 % Please note range changes. Urine creatinine measurement (mass/volume)on 06-21-2021 Creatinine (U) [Mass/Vol] 38.40 mg/dL NO RANGE EST. [facility] Work Phone: Urine protein measurement (m ass/volume)on 06-21-2021 Protein (U) [Mass/Vol] mg/dL 0.0-11.8 [facility] Work Phone: Urine protein/creatinine mas s ratioon 06-21-2021 Protein/Creatinine (U) [Mass ratio] TNP [facility] Work Phone: Comment on above: Test not performed Absolute lymphocyte counton 06-19-2021 Lymphocytes Auto (Unsp spec) [#/Vol] 1.08 10*3/uL 0.83-4.51 [facility] Work Phone: Basophil percentageon 2021 Basophils/100 WBC (Bld) 0.1 % 0-1 [facility] Work Phone: Bilirubin [Mass/Vol] 0.50 mg/dL 0.20-1.00 [facility] Work Phone: Comment on above: For patients on eltr ombopag therapy, use of [employer] [place] TBIL is not recommended. Chloride [Moles/Vol] 97 mmol/L 98-107 [facility] Work Phone: Cholesterol [Mass/Vol] 155 mg/dL <200 [facility] Work Phone: Comment on above: <200 mg/dL Desirable 200-240 mg/dL Borderline >240 mg/dL High Risk Eosinophils/100 WBC (Bld) 1.0 % 0-5 [facility] Work Phone: Glucose [Mass/Vol] 167 mg/dL 74-106 [facility] Work Phone: Comment on above: Fasting Glucose resu lt greater than or equal to 126 mg/dL suggests DIABETES MELLITUS per A.D.A. criteria. Neutrophils (Bld) [#/Vol] 5.4 10*3/uL 2.0-7.7 [facility] Work Phone: Neutrophils/100 WBC (Bld) 74.8 % 47-70 [facility] Work Phone: Potassium [Moles/Vol] 3.6 mmol/L 3.5-5.1 [facility] Work Phone: Protein [Mass/Vol] 7.4 g/dL 6.4-8.2 [facility] Work Phone: Sodium [Moles/Vol] 135 mmol/L 136-145 [facility] Work Phone: Triglyceride [Mass/Vol] 228 mg/dL <199 [facility] Work Phone: Comment on above: The drugs N-Acetylcy steine and Metamizole may falsely depress this assay.Serum Triglycerides Reference Interval Normal <150 mg/dL Borderline high 150 - 199 mg/dL High 200 - 499 mg/dL Very High > or = 500 mg/dL WBC (Bld) [#/Vol] 7.3 10*3/uL 4.4-11.0 [facility] Work Phone: Blood erythrocytes count (nu mber/volume)on 06-19-2021 RBC (Bld) [#/Vol] 3.89 10*6/uL 4.2-5.4 [facility] Work Phone: Blood hemoglobin measurement (mass/volume)on 06-19-2021 Hemoglobin (Bld) [Mass/Vol] 11.6 g/dL 12.0-15.0 [facility] Work Phone: Blood lymphocytes/100 leukoc yteson 06-19-2021 Lymphocytes/100 WBC (Bld) 14.9 % 19-41 [facility] Work Phone: Blood monocytes/100 leukocyt eson 06-19-2021 Monocytes/100 WBC (Bld) 8.8 % 0-10 [facility] Work Phone: Blood platelet mean volumeon 06-19-2021 Platelet mean volume (Bld) [Entitic vol] 8.9 fL 6.2-12.0 [facility] Work Phone: Determination of erythrocyte mean corpuscular volume (MCV)on 06-19-2021 MCV (RBC) [Entitic vol] 93.6 fL 81-99 [facility] Work Phone: Hematocrit Auto (Bld) [Volum e fraction]on 06-19-2021 Hematocrit (Bld) [Volume fraction] 36.4 % 37-47 [facility] Work Phone: Iron measurement (mass/mass) on 06-19-2021 Iron (Unsp spec) [Mass/Mass] 94 ug/dL 50-170 [facility] Work Phone: Laboratory - Chemistry and C hemistry - challengeon 06-19-2021 ALP [Catalytic activity/Vol] 132 U/L 45-117 [facility] Work Phone: [phone] ALT [Catalytic activity/Vol] 19 U/L 13-56 [facility] Work Phone: CO2 [Moles/Vol] 30.0 mmol/L 21.0-32.0 [facility] Work Phone: [phone] Cobalamin (Vitamin B12) [Mass/Vol] 191 pg/mL 211-911 [facility] Work Phone: [phone] Globulin (S) [Mass/Vol] 4.0 g/dL 2.2-4.2 [facility] Work Phone: [phone] Urea nitrogen/Creatinine [Mass ratio] 14.6 mg/mg 10-20 [facility] Work Phone: [phone] Laboratory - Hematology and Cell countson 06-19-2021 Erythrocyte distribution width (RBC) [Entitic vol] 55.2 fL 35.1-43.9 [facility] Work Phone: [phone] Erythrocyte distribution width (RBC) [Ratio] 15.9 % 11.6-14.6 [facility] Work Phone: Immature granulocytes/100 WBC (Bld) 0.400 % 0.0-0.9 [facility] Work Phone: Comment on above: IG% - Immature Granu locytes (promyelocytes, myelocytes and metamyelocytes) > 1% indicates that a LEFT SHIFT is Present. MCH (RBC) [Entitic mass] 29.8 pg 27.0-32.0 [facility] Work Phone: [phone] Nucleated RBC/100 WBC (Bld) [Ratio] 0 % 0-5 [facility] Work Phone: [phone] MCHC Auto (RBC) [Mass/Vol]on 06-19-2021 MCHC (RBC) [Mass/Vol] 31.9 g/dL 32-36 [facility] Work Phone: No Panel Informationon 06-19 Estimated GFR (MDRD) Amer 54 mL/min >60 [facility] Work Phone: Comment on above: GFR Calc Estimated GFR (MDRD) Non-Af Amer 45 mL/min >60 [facility] Work Phone: Comment on above: Non- GFR Calc Total Iron Binding Capacity 323 ug/dL 250-450 [facility] Work Phone: Vitamin D 25-Hydroxy 48.2 ng/mL [facility] Work Phone: Comment on above: Vitamin D 25(OH) Sta tus Range Deficiency <20 ng/mL (50nmol/L) Insufficiency 20 - 30 ng/mL (50 - 75 nmol/L) Sufficiency 30 - 100 ng/mL (75 - 250 nmol/L) Toxicity >100 ng/mL (>250 nmol/L) Platelets bldon 06-19-2021 Platelets (Bld) [#/Vol] 281 10*3/uL 150-450 [facility] Work Phone: Serum or plasma albumin chris urement (mass/volume)on 06-19-2021 Albumin [Mass/Vol] 3.4 g/dL 3.2-5.0 [facility] Work Phone: Serum or plasma albumin/glob ulin mass ratioon 06-19-2021 Albumin/Globulin [Mass ratio] 0.8 {ratio} 0.9-2.4 [facility] Work Phone: Serum or plasma calcium chris urement (mass/volume)on 06-19-2021 Calcium [Mass/Vol] 9.7 mg/dL 8.5-10.1 [facility] Work Phone: Serum or plasma cholesterol in HDL measurement (mass/volume)on 06-19-2021 Cholesterol in HDL [Mass/Vol] 39 mg/dL >40 [facility] Work Phone: Comment on above: The drugs N-Acetylcy steine and Metamizole may falsely depress this assay. Reference Range HDL <40 mg/dL Low HDL Cholesterol HDL >or= 60 mg/dL High HDL Cholesterol Serum or plasma cholesterol in VLDL measurement (mass/volume)on 06-19-2021 Cholesterol in VLDL [Mass/Vol] 46 mg/dL 5-40 [facility] Work Phone: Serum or plasma creatinine m easurement (mass/volume)on 06-19-2021 Creatinine [Mass/Vol] 1.23 mg/dL 0.55-1.02 [facility] Work Phone: Comment on above: The validity of the calculated GFR & GFRAA in patients over 70 years has not been determined. Clinical correlation is essential. Serum or plasma ferritin rene surement (mass/volume)on 06-19-2021 Ferritin [Mass/Vol] 312 ng/mL 8-252 [facility] Work Phone: Serum or plasma folate measu rement (mass/volume)on 06-19-2021 Folate [Mass/Vol] 9.30 ng/mL 3.1-55.4 [facility] Work Phone: Serum or plasma low density lipoprotein (LDL) cholesterol measurement (mass/volume)on 06-19-2021 Cholesterol in LDL [Mass/Vol] 70 mg/dL 0-130 [facility] Work Phone: Serum or plasma urea nitroge n measurement (mass/volume)on 06-19-2021 Urea nitrogen [Mass/Vol] 18 mg/dL 7-18 [facility] Work Phone: Thin prep Papanicolaou smear with manual screeningon 06-19-2021 Thin prep Papanicolaou smear with manual screening 29 U/L 15-37 [facility] Work Phone: Thin prep Papanicolaou smear with manual screening 8 5-15 [facility] Work Phone: Whole blood hemoglobin A1c/t otal hemoglobin ratio (mass fraction)on 06-19-2021 HbA1c (Bld) [Mass fraction] 5.6 % 3.8-5.6 [facility] Work Phone: [phone] Comment on above: Normal < 5.7 % Predi abetic 5.7 - 6.4 % Diabetic >or= 6.5 % Please note range changes. Glucose Glucometer (BldC) [M ass/Vol]on 06-10-2021 Glucose [Mass/Vol] 91 mg/dL 74-106 [facility] Work Phone: [phone] Comment on above: MANAGEMENT OF PATIEN T CARE PER NURSING PROTOCOL Absolute lymphocyte counton 06-06-2021 Lymphocytes Auto (Unsp spec) [#/Vol] 1.57 10*3/uL 0.83-4.51 [facility] Work Phone: Basophil percentageon 2021 Basophils/100 WBC (Bld) 0.3 % 0-1 [facility] Work Phone: [phone] Chloride [Moles/Vol] 103 mmol/L 98-107 [facility] Work Phone: [phone] Eosinophils/100 WBC (Bld) 1.0 % 0-5 [facility] Work Phone: Glucose [Mass/Vol] 97 mg/dL 74-106 [facility] Work Phone: [phone] Neutrophils (Bld) [#/Vol] 5.2 10*3/uL 2.0-7.7 [facility] Work Phone: [phone] Neutrophils/100 WBC (Bld) 68.3 % 47-70 [facility] Work Phone: [phone] Potassium [Moles/Vol] 4.3 mmol/L 3.5-5.1 [facility] Work Phone: [phone] Sodium [Moles/Vol] 138 mmol/L 136-145 [facility] Work Phone: [phone] WBC (Bld) [#/Vol] 7.6 10*3/uL 4.4-11.0 [facility] Work Phone: Blood erythrocytes count (nu mber/volume)on 06-06-2021 RBC (Bld) [#/Vol] 3.54 10*6/uL 4.2-5.4 [facility] Work Phone: Blood hemoglobin measurement (mass/volume)on 06-06-2021 Hemoglobin (Bld) [Mass/Vol] 10.6 g/dL 12.0-15.0 [facility] Work Phone: Blood lymphocytes/100 leukoc yteson 06-06-2021 Lymphocytes/100 WBC (Bld) 20.6 % 19-41 [facility] Work Phone: Blood monocytes/100 leukocyt eson 06-06-2021 Monocytes/100 WBC (Bld) 9.3 % 0-10 [facility] Work Phone: Blood platelet mean volumeon 06-06-2021 Platelet mean volume (Bld) [Entitic vol] 8.4 fL 6.2-12.0 [facility] Work Phone: Determination of erythrocyte mean corpuscular volume (MCV)on 06-06-2021 MCV (RBC) [Entitic vol] 91.8 fL 81-99 [facility] Work Phone: Hematocrit Auto (Bld) [Volum e fraction]on 06-06-2021 Hematocrit (Bld) [Volume fraction] 32.5 % 37-47 [facility] Work Phone: Laboratory - Chemistry and C hemistry - challengeon 06-06-2021 CO2 [Moles/Vol] 31.0 mmol/L 21.0-32.0 [facility] Work Phone: Urea nitrogen/Creatinine [Mass ratio] 22.4 mg/mg 10-20 [facility] Work Phone: Laboratory - Hematology and Cell countson 06-06-2021 Erythrocyte distribution width (RBC) [Entitic vol] 52.0 fL 35.1-43.9 [facility] Work Phone: Erythrocyte distribution width (RBC) [Ratio] 15.6 % 11.6-14.6 [facility] Work Phone: Immature granulocytes/100 WBC (Bld) 0.500 % 0.0-0.9 [facility] Work Phone: Comment on above: IG% - Immature Granu locytes (promyelocytes, myelocytes and metamyelocytes) > 1% indicates that a LEFT SHIFT is Present. MCH (RBC) [Entitic mass] 29.9 pg 27.0-32.0 [facility] Work Phone: Nucleated RBC/100 WBC (Bld) [Ratio] 0 % 0-5 [facility] Work Phone: MCHC Auto (RBC) [Mass/Vol]on 06-06-2021 MCHC (RBC) [Mass/Vol] 32.6 g/dL 32-36 [facility] Work Phone: No Panel Informationon 06-06 Estimated Creatinine Clearance Calc 48.92 ml/min [facility] Work Phone: Estimated GFR (MDRD) Amer 70 mL/min >60 [facility] Work Phone: Comment on above: GFR Calc Estimated GFR (MDRD) Non-Af Amer 58 mL/min >60 [facility] Work Phone: Comment on above: Non- GFR Calc Platelets bldon 06-06-2021 Platelets (Bld) [#/Vol] 295 10*3/uL 150-450 [facility] Work Phone: Serum or plasma calcium chris urement (mass/volume)on 06-06-2021 Calcium [Mass/Vol] 8.8 mg/dL 8.5-10.1 [facility] Work Phone: Serum or plasma creatinine m easurement (mass/volume)on 06-06-2021 Creatinine [Mass/Vol] 0.98 mg/dL 0.55-1.02 [facility] Work Phone: Comment on above: The validity of the calculated GFR & GFRAA in patients over 70 years has not been determined. Clinical correlation is essential. Serum or plasma urea nitroge n measurement (mass/volume)on 06-06-2021 Urea nitrogen [Mass/Vol] 22 mg/dL 7-18 [facility] Work Phone: Thin prep Papanicolaou smear with manual screeningon 06-06-2021 Thin prep Papanicolaou smear with manual screening 4 5-15 [facility] Work Phone: Basophil percentageon 2021 Basophil percentage 0 SEEN /hpf 0-5 [facility] Work Phone: Bilirubin Test strip Ql (U)o n 05-29-2021 Bilirubin Ql (U) Negative Negative [facility] Work Phone: Culture, urineon 05-29-2021 Bacteria identified Cx Nom (U) Culture exhibits no growth. [facility] Work Phone: Ketones Test strip Ql (U)on 05-29-2021 Ketones Ql (U) Negative Negative [facility] Work Phone: Mucus LM Ql (Urine sed)on Mucus Ql (Urine sed) 0 SEEN /hpf [facility] Work Phone: Nitrite Test strip Ql (U)on 05-29-2021 Nitrite Ql (U) Negative Negative [facility] Work Phone: Protein Test strip Ql (U)on 05-29-2021 Protein Ql (U) Negative Negative [facility] Work Phone: Squamous epithelial cells de tection in urine sediment by light microscopyon 05-29-2021 Epithelial cells.squamous LM Ql (Urine sed) 0 SEEN /hpf 5-10 [facility] Work Phone: Urine blood detectionon 05-16 RBC Ql (U) Negative Negative [facility] Work Phone: RBC Ql (U) 0 SEEN /hpf 0-5 [facility] Work Phone: Urine clarityon 05-29-2021 Clarity (U) Clear Clear [facility] Work Phone: Urine color determinationon 05-29-2021 Color (U) Yellow Yellow [facility] Work Phone: Urine glucose detectionon Glucose Ql (U) Normal mg/dl Normal [facility] Work Phone: Urine leukocyte esterase det ection by dipstickon 05-29-2021 Leukocyte esterase Test strip Ql (U) Negative Negative [facility] Work Phone: Urine pHon 05-29-2021 pH (U) 6.0 [pH] 5.0 - 8.0 [facility] Work Phone: Urine sediment bacteria coun t by microscopy (number/high power field)on 05-29-2021 Bacteria LM.HPF (Urine sed) [#/Area] 0 /[HPF] None Seen [facility] Work Phone: Urine specific gravity measu rementon 05-29-2021 Specific gravity (U) [Rel density] 1.010 1.002-1.030 [facility] Work Phone: Urobilinogen Auto test strip Ql (U)on 05-29-2021 Urobilinogen Ql (U) Normal mg/dl Normal [facility] Work Phone: Basophil percentageon 2021 WBC (Bld) [#/Vol] 8.6 10*3/uL 4.4-11.0 [facility] Work Phone: Blood erythrocytes count (nu mber/volume)on 05-22-2021 RBC (Bld) [#/Vol] 2.47 10*6/uL 4.2-5.4 [facility] Work Phone: Blood hemoglobin measurement (mass/volume)on 05-22-2021 Hemoglobin (Bld) [Mass/Vol] 7.3 g/dL 12.0-15.0 [facility] Work Phone: Blood platelet mean volumeon 05-22-2021 Platelet mean volume (Bld) [Entitic vol] 9.4 fL 6.2-12.0 [facility] Work Phone: Determination of erythrocyte mean corpuscular volume (MCV)on 05-22-2021 MCV (RBC) [Entitic vol] 88.7 fL 81-99 [facility] Work Phone: Glucose Glucometer (BldC) [M ass/Vol]on 05-22-2021 Glucose [Mass/Vol] 175 mg/dL 74-106 [facility] Work Phone: Comment on above: MANAGEMENT OF PATIEN T CARE PER NURSING PROTOCOL Hematocrit Auto (Bld) [Volum e fraction]on 05-22-2021 Hematocrit (Bld) [Volume fraction] 21.9 % 37-47 [facility] Work Phone: Laboratory - Hematology and Cell countson 05-22-2021 Erythrocyte distribution width (RBC) [Entitic vol] 44.7 fL 35.1-43.9 [facility] Work Phone: Erythrocyte distribution width (RBC) [Ratio] 13.8 % 11.6-14.6 [facility] Work Phone: MCH (RBC) [Entitic mass] 29.6 pg 27.0-32.0 [facility] Work Phone: MCHC Auto (RBC) [Mass/Vol]on 05-22-2021 MCHC (RBC) [Mass/Vol] 33.3 g/dL 32-36 [facility] Work Phone: Platelets bldon 05-22-2021 Platelets (Bld) [#/Vol] 246 10*3/uL 150-450 [facility] Work Phone: Basophil percentageon 2021 Chloride [Moles/Vol] 103 mmol/L 98-107 [facility] Work Phone: Glucose [Mass/Vol] 123 mg/dL 74-106 [facility] Work Phone: Comment on above: Fasting Glucose resu lt from 100 to 125 mg/dL suggests IMPAIRED HOMEOSTASIS per A.D.A. criteria. Potassium [Moles/Vol] 4.0 mmol/L 3.5-5.1 [facility] Work Phone: Sodium [Moles/Vol] 139 mmol/L 136-145 [facility] Work Phone: Laboratory - Chemistry and C hemistry - challengeon 05-20-2021 CO2 [Moles/Vol] 26.0 mmol/L 21.0-32.0 [facility] Work Phone: Urea nitrogen/Creatinine [Mass ratio] 12.5 mg/mg 10-20 [facility] Work Phone: No Panel Informationon 05-20 Estimated Creatinine Clearance Calc 20.68 ml/min [facility] Work Phone: Estimated GFR (MDRD) Amer 27 mL/min >60 [facility] Work Phone: Comment on above: GFR Calc Estimated GFR (MDRD) Non-Af Amer 22 mL/min >60 [facility] Work Phone: Comment on above: Non- GFR Calc Serum or plasma calcium chris urement (mass/volume)on 05-20-2021 Calcium [Mass/Vol] 8.2 mg/dL 8.5-10.1 [facility] Work Phone: Serum or plasma creatinine m easurement (mass/volume)on 05-20-2021 Creatinine [Mass/Vol] 2.24 mg/dL 0.55-1.02 [facility] Work Phone: Comment on above: The validity of the calculated GFR & GFRAA in patients over 70 years has not been determined. Clinical correlation is essential. Serum or plasma urea nitroge n measurement (mass/volume)on 05-20-2021 Urea nitrogen [Mass/Vol] 28 mg/dL 7-18 [facility] Work Phone: Thin prep Papanicolaou smear with manual screeningon 05-20-2021 Thin prep Papanicolaou smear with manual screening 10 5-15 [facility] Work Phone: Absolute lymphocyte counton 05-18-2021 Lymphocytes Auto (Unsp spec) [#/Vol] 0.99 10*3/uL 0.83-4.51 [facility] Work Phone: Basophil percentageon 2021 Bilirubin [Mass/Vol] 0.30 mg/dL 0.20-1.00 [facility] Work Phone: Comment on above: For patients on eltr ombopag therapy, use of [employer] [place] TBIL is not recommended. Protein [Mass/Vol] 6.8 g/dL 6.4-8.2 [facility] Work Phone: Basophils/100 WBC (Bld) 0.1 % 0-1 [facility] Work Phone: Eosinophils/100 WBC (Bld) 0.7 % 0-5 [facility] Work Phone: Neutrophils (Bld) [#/Vol] 6.9 10*3/uL 2.0-7.7 [facility] Work Phone: Neutrophils/100 WBC (Bld) 80.5 % 47-70 [facility] Work Phone: Blood lymphocytes/100 leukoc yteson 05-18-2021 Lymphocytes/100 WBC (Bld) 11.6 % 19-41 [facility] Work Phone: [phone] Blood monocytes/100 leukocyt eson 05-18-2021 Monocytes/100 WBC (Bld) 6.5 % 0-10 [facility] Work Phone: Direct bilirubinon 2 Bilirubin.direct [Mass/Vol] 0.13 mg/dL 0.00-0.30 [facility] Work Phone: INR in Blood by Coagulation assayon 05-18-2021 INR Coag (Bld) [Relative time] 1.1 {INR} [facility] Work Phone: Laboratory - Chemistry and C hemistry - challengeon 05-18-2021 ALP [Catalytic activity/Vol] 42 U/L 45-117 [facility] Work Phone: ALT [Catalytic activity/Vol] 17 U/L 13-56 [facility] Work Phone: Globulin (S) [Mass/Vol] 3.3 g/dL 2.2-4.2 [facility] Work Phone: Laboratory - Coagulationon 0 05-18-2021 PT Coag (PPP) [Time] 14.0 s 11.7-14.9 [facility] Work Phone: Laboratory - Hematology and Cell countson 05-18-2021 Immature granulocytes/100 WBC (Bld) 0.600 % 0.0-0.9 [facility] Work Phone: Comment on above: IG% - Immature Granu locytes (promyelocytes, myelocytes and metamyelocytes) > 1% indicates that a LEFT SHIFT is Present. Nucleated RBC/100 WBC (Bld) [Ratio] 0 % 0-5 [facility] Work Phone: No Panel Informationon 05-18 Vitamin D 25-Hydroxy 39.6 ng/mL [facility] Work Phone: Comment on above: Vitamin D 25(OH) Sta tus Range Deficiency <20 ng/mL (50nmol/L) Insufficiency 20 - 30 ng/mL (50 - 75 nmol/L) Sufficiency 30 - 100 ng/mL (75 - 250 nmol/L) Toxicity >100 ng/mL (>250 nmol/L) Serum or plasma albumin chris urement (mass/volume)on 05-18-2021 Albumin [Mass/Vol] 3.5 g/dL 3.2-5.0 [facility] Work Phone: Serum or plasma albumin/glob ulin mass ratioon 05-18-2021 Albumin/Globulin [Mass ratio] 1.1 {ratio} 0.9-2.4 [facility] Work Phone: Thin prep Papanicolaou smear with manual screeningon 05-18-2021 Thin prep Papanicolaou smear with manual screening 31 U/L 15-37 [facility] Work Phone: Whole blood hemoglobin A1c/t otal hemoglobin ratio (mass fraction)on 05-18-2021 HbA1c (Bld) [Mass fraction] 6.7 % 3.8-5.6 [facility] Work Phone: Comment on above: Normal < 5.7 % Predi abetic 5.7 - 6.4 % Diabetic >or= 6.5 % Please note range changes. .GFRon 10-09-2017 GFR Non- 48 ml/min/1.73sqm Normal [facility] ([place]) Comment on above: Result Comment: GFR Population [...] mL/min/1.73 square meters Performed By: #### T [facility] ####[address] [place], [place] [address] GFR 58 ml/min/1.73sqm Normal [facility] ([place]) Comment on above: Result Comment: GFR [...] 15 mL/min/1.73 square meters Performed By: #### [facility] ####[address] [place], [place] [address] CMPon 10-09-2017 Alanine aminotransferase (ALT) 33 U/L Normal 10-35 [facility] ([place]) Comment on above: Performed By: #### [facility] ####[address] [place], [place] [address] Albumin 4.0 G/dL Normal 3.4-4.8 [facility] ([place] Comment on above: Performed By: #### [facility] ####[address] [place], [place] [address] Albumin/Globulin Ratio 1.1 {ratio} Normal 1.1-2.5 [facility] ([place]) Comment on above: Performed By: #### [facility] ####[address] [place], [place] [address] Alk Phos 73 U/L Normal 40-135 [facility] ([place] Comment on above: Performed By: #### [facility] ####[address] [place], [place] [address] Aspartate aminotransferase (AST) 56 U/L High 10-40 [facility] ([place] Comment on above: Performed By: #### [facility] ####[address] [place], [place] [address] Bili Total 0.3 mg/dL Normal 0.2-1.0 [facility] ([place] Comment on above: Performed By: #### [facility] ####[address] [place], [place] [address] BUN/Creatinine Ratio 19 ratio Normal 7-27 [facility] ([place]) Comment on above: Performed By: #### [facility] ####[address] [place], [place] [address] Calcium 9.6 mg/dL Normal 8.4-10.2 [facility] ([place] Comment on above: Performed By: #### T [facility] ####[address] [place], [place] [address] Chloride 99 mmol/L Normal 98-107 [facility] ([place] Comment on above: Performed By: #### T [facility] ####[address] [place], [place] [address] CO2 30 mmol/L Normal 23-31 [facility] ([place] Comment on above: Performed By: #### T [facility] ####[address] [place], [place] [address] Creatinine 1.11 mg/dL High 0.55-1.02 [facility] ([place] Comment on above: Performed By: #### T [facility] ####[address] [place], [place] [address] Electrolyte Balance 9.0 mEq/L Normal [facility] ([place]) Comment on above: Performed By: #### T [facility] ####[address] [place], [place] [address] Globulin 3.5 G/dL Normal [facility] ([place] Comment on above: Performed By: #### [facility] ####[address] [place], [place] [address] Glucose mass conc 160 mg/dL High 83-110 [facility] ([place] Comment on above: Performed By: #### T [facility] ####[address] [place], [place] [address] Potassium molar conc 4.3 mmol/L Normal 3.5-5.1 [facility] ([place] Comment on above: Performed By: #### T [facility] ####[address] [place], [place] [address] Protein 7.5 G/dL Normal 6.4-8.2 [facility] ([place] Comment on above: Performed By: #### T [facility] ####[address] [place], [place] [address] Sodium 138 mmol/L Normal 136-145 [facility] ([place] Comment on above: Performed By: #### T [facility] ####[address] [place], [place] [address] Urea nitrogen 21 mg/dL High 7-18 [facility] ([place] Comment on above: Performed By: #### T [facility] ####[address] [place], [place] [address] LIPIDon 10-09-2017 Cholesterol 168 mg/dL Normal 0-200 [facility] ([place]) Comment on above: Result Comment: Chol esterol Reference Interval:Less than 200 [id number] Borderline high [id number] and above High risk Performed By: #### L IPID, CMP, GFR ####[address] [address] HDL Cholesterol 37 mg/dL Low 40-60 [facility] ([place] Comment on above: Performed By: #### L IPID, CMP, GFR ####[address] [address] LDL Cholesterol 84 mg/dL Normal 0-130 [facility] ([place] Comment on above: Performed By: #### L IPID, CMP, GFR ####[place] [address] Triglyceride 237 mg/dL High 0-150 [facility] ([place] Comment on above: Result Comment: Trig lyceride Reference Interval:Less than 150 [id number] Borderline high [id number] High [id number] or higher Very high risk Performed By: #### L IPID, CMP, GFR ####[address] [address] TOXSCon 09-26-2017 QC TOXSC Valid [facility] ([place]) Comment on above: Performed By: #### T [facility] ####[address] [place], [place] [address] U Ampheta (AO) Negative [facility] ([place] Comment on above: Performed By: #### T [facility] ####[address] [place], [place] [address] U Glo (AO) Negative [facility] ([place] Comment on above: Performed By: #### T [facility] ####[address] [place], [place] [address] U Ryan (AO) Negative [facility] ([place] Comment on above: Performed By: #### T [facility] ####[address] [place], [place] [address] U Cannab (AO) Negative [facility] ([place] Comment on above: Performed By: #### T [facility] ####[address] [place], [place] [address] U Cocaine (AO) Negative [facility] ([place] Comment on above: Performed By: #### T [facility] ####[address] [place], [place] [address] U Methadone (AO) Negative [facility] ([place] Comment on above: Performed By: #### T [facility] ####[address] [place], [place] [address] U PCP (AO) Negative [facility] ([place] Comment on above: Performed By: #### T [facility] ####[address] [place], [place] [address] U TCA (AO) Negative [facility] ([place] Comment on above: Performed By: #### T [facility] ####[address] [place], [place] [address] Urine Opiates (AO) Negative [facility] [place] Comment on above: Performed By: #### T [facility] ####[address] [place], [place] [address] .GFRon 04-30-2017 GFR 80 ml/min/1.73sqm [facility] ([place]) Comment on above: Result Comment: GFR Population [...] SH, LIPID, CMP, GFR, A1C ####[address] [place], [place] [address] GFR Non- >60 Normal [facility] ([place] Comment on above: Result Comment: GFR Population [...] SH, LIPID, CMP, GFR, A1C ####[address] [place], [place] [address] A1Con 04-30-2017 Hemoglobin A1c/Hemoglobin.total mass fraction (Bld) 6.7 % High 4.8-5.9 [facility] ([place] Comment on above: Performed By: #### T SH, LIPID, CMP, GFR, A1C ####[address] [place], [place] [address] CMPon 04-30-2017 Alanine aminotransferase (ALT) 17 U/L Normal 10-35 [facility] ([place]) Comment on above: Performed By: #### T SH, LIPID, CMP, GFR, A1C ####[address] [place], [place] [address] Albumin 4.5 G/dL Normal 3.4-4.8 [facility] ([place] Comment on above: Performed By: #### T SH, LIPID, CMP, GFR, A1C ####[address] [place], [place] [address] Albumin/Globulin Ratio 1.7 {ratio} Normal 1.1-2.5 [facility] ([place]) Comment on above: Performed By: #### T SH, LIPID, CMP, GFR, A1C ####[address] [place], [place] [address] Alk Phos 63 IU/L Normal 40-135 [facility] ([place]) Comment on above: Performed By: #### T SH, LIPID, CMP, GFR, A1C ####[address] [place], [place] [address] Aspartate aminotransferase (AST) 28 U/L Normal 10-40 [facility] ([place] Comment on above: Performed By: #### T SH, LIPID, CMP, GFR, A1C ####[address] [address] [place], [place] [address] Bili Total 0.4 mg/dL Normal 0.2-1.0 [facility] ([place]) Comment on above: Performed By: #### T SH, LIPID, CMP, GFR, A1C ####Hiram [address] [place], [place] [address] BUN/Creatinine Ratio 19 ratio Normal 7-27 [facility] ([place]) Comment on above: Performed By: #### T SH, LIPID, CMP, GFR, A1C ####Hiram [address] [place], [place] [address] Calcium 9.7 mg/dL Normal 8.4-10.2 [facility] ([place]) Comment on above: Performed By: #### T SH, LIPID, CMP, GFR, A1C ####Hiram [address] [place], [place] [address] Chloride 98 mmol/L Normal 98-107 [facility] ([place] Comment on above: Performed By: #### T SH, LIPID, CMP, GFR, A1C ####[address]iram [address] [place], [place] [address] CO2 29 mmol/L Normal 23-31 [facility] ([place] Comment on above: Performed By: #### T SH, LIPID, CMP, GFR, A1C ####Hiram [address] [place], [place] [address] Creatinine 0.8 mg/dL Normal 0.6-1.2 [facility] ([place] Comment on above: Performed By: #### T SH, LIPID, CMP, GFR, A1C ####Hiram [address] [place], [place] [address] Electrolyte Balance 12.0 mEq/L Normal [facility] ([place]) Comment on above: Performed By: #### T SH, LIPID, CMP, GFR, A1C ####Hiram [address] [place], [place] [address] Globulin 2.6 G/dL Normal [facility] ([place] Comment on above: Performed By: #### T SH, LIPID, CMP, GFR, A1C ####Hiram [address] [place], [place] [address] Glucose mass conc 131 mg/dL High 83-110 [facility] ([place] Comment on above: Performed By: #### T SH, LIPID, CMP, GFR, A1C ####Hiram [address] [place], [place] [address] Potassium molar conc 4.3 mmol/L Normal 3.5-5.1 [facility] ([place] Comment on above: Performed By: #### T SH, LIPID, CMP, GFR, A1C ####[address]iram [address] [place], [place] [address] Protein 7.1 G/dL Normal 6.0-8.3 [facility] ([place] Comment on above: Performed By: #### T SH, LIPID, CMP, GFR, A1C ####[address]iram [address] [place], [place] [address] Sodium 139 mmol/L Normal 136-146 [facility] ([place] Comment on above: Performed By: #### T SH, LIPID, CMP, GFR, A1C ####[address]iram [address] [place], [place] [address] Urea nitrogen 15.2 mg/dL Normal 7.0-18.0 [facility] ([place] Comment on above: Performed By: #### T SH, LIPID, CMP, GFR, A1C ####Hiram [address] [place], [place] [address] LIPIDon 04-30-2017 Cholesterol 172 mg/dL Normal 131-200 [facility] ([place]) Comment on above: Result Comment: Chol esterol Reference Interval:Less than 200 [id number] Borderline high etza309 and above High risk Performed By: #### T SH, LIPID, CMP, GFR, A1C ####Hiram [address] [place] [address] HDL Cholesterol 56 mg/dL Normal 35-90 [facility] ([place] Comment on above: Result Comment: HDL Reference Interval:Less than 40 Low - high risk60 or above Optimal/lowers risk Performed By: #### T SH, LIPID, CMP, GFR, A1C ####Hiram [address] [place] [address] LDL Cholesterol 72 mg/dL Normal 0-130 [facility] ([place]) Comment on above: Result Comment: LDL is a calculated result and requires a 12-hr fast.LDL Reference Interval:Less than 100 Nuufueb164-399 Near or above -911 Borderline high [id number] High nuxo086 and above Very high risk Performed By: #### T SH, LIPID, CMP, GFR, A1C ####[address]iram [address] [place] [address] Triglyceride 220 mg/dL High 40-150 [facility] ([place] Comment on above: Result Comment: Trig lyceride Reference Interval:Less than 150 Ssdztv429-214 Borderline high uhct744-661 High ddud319 or higher Very high risk Performed By: #### T SH, LIPID, CMP, GFR, A1C ####Hiram [address] [place], [place] [address] MA MAMMOGRAM SCREENING BILAT ERAL W/TOMOon 04-30-2017 MA MAMMOGRAM SCREENING BILATERAL W/BRIANA ORIGINALFROM:[address] [address]Bjxoy: [phone] PROCEDURE FOR:TAMICA DYERSHARPS [place], [place] [address]Usvq: [phone]#: [id number]#: [id number]#: [id number]: 2Age: 77 TO:LEONELA NEWMAN [address] [place], [place] [address] #[id number] DIGITAL SCREENING MAMMOGRAM 3D/2D WITH CAD WITH MEDIOLATERAL OBLIQUE CRANIOCAUDAL: 04/30/2017Comparison is made to exams dated: 12/15/2013 mammogram and 07/30/2012 mammogram - [facility]. There are scattered fibroglandular elements in [...] with the findings and interpretation. ROSSANA STOVER [facility],nf/penrad: 018 13:00:43 Dye Blender: MARTITA REILLY (R)(M), [facility]: [facility] BI-RADS 1&2 Mammogram BI-RADS: 2 Benign Normal [facility] ([place]) TSHon 04-30-2017 Thyroid stimulating hormone (TSH) 2.69 mcIU/mL Normal 0.27-4.20 [facility] ([place]) Comment on above: Performed By: #### T SH, LIPID, CMP, GFR, A1C ####Hiram [address] [place], [place] [address] TOXSCon 04-10-2017 QC TOXSC Valid Normal [facility] ([place]) Comment on above: Performed By: #### T OXSC ####Hiram [address] [place], [place] [address] U Ampheta (AO) Negative Normal [facility] ([place] Comment on above: Performed By: #### T OXSC ####Hiram [address] [place], [place] [address] U Glo (AO) Negative Normal [facility] ([place] Comment on above: Performed By: #### T OXSC ####Hiram [address] [place], [place] [address] U Ryan (AO) Negative [facility] ([place]) Comment on above: Performed By: #### T OXSC ####Hiram [address] [place], [place] [address] U Cannab (AO) Negative [facility] ([place]) Comment on above: Performed By: #### T OXSC ####Hiram [address] [place], [place] [address] U Cocaine (AO) Negative [facility] ([place] Comment on above: Performed By: #### T OXSC ####Hiram [address] [place], [place] [address] U Methadone (AO) Negative [facility] ([place] Comment on above: Performed By: #### T OXSC ####Hiram [address] [place], [place] [address] U PCP (AO) Negative [facility] ([place] Comment on above: Performed By: #### T OXSC ####Hiram [address] [place], [place] [address] U TCA (AO) Negative [facility] ([place]) Comment on above: Performed By: #### T OXSC ####Hiram [address] [place], [place] [address] Urine Opiates (AO) Negative [facility] ([place]) Comment on above: Performed By: #### T OXSC ####Hiram [address] [place], [place] [address] US SOFT TISSUE MASS CHEST WA LL [...] chest wall subcutaneous lipoma. Interpreted By: Mello Croninreliminary Report By: Mello Cronin MDElectronically Signed By: Mello Cronin MD Dictated Date: 11/16/2016 2:43:12 PM Prelim Date: 11/16/2016 2:43:12 PM Sign Date: 11/16/2016 2:44:15 PM Normal [facility] ([place]) Culture, urine Bacteria identified Cx Nom (U) Culture exhibits no growth. [facility] Work Phone: Vital Signs Date Time Vital Sign Value Performing Clinician Facility 10-05-2024 14:01-0400 Body temperature 98.1 [degF] Dr. Dominique Lang MD Work Phone: [facility] 10-05-2024 14:01-0400 Diastolic blood pressure 80 mm[Hg] Dr. Dominique smith MD Work Phone: [facility] 10-05-2024 14:01-0400 Heart rate 83 /min Dr. Dominique Lang MD Work Phone: [facility] 10-05-2024 14:01-0400 Respiratory rate 20 /min Dr. Dominique Lang MD Work Phone: [facility] 10-05-2024 14:01-0400 SaO2% (BldA) [Mass fraction] 92 % Dr. Dominique Lang MD Work Phone: [facility] 10-05-2024 14:01-0400 Systolic blood pressure 174 mm[Hg] Dr. Dominique nelson MD Work Phone: [facility] 10-05-2024 10:33-0400 Body mass index (BMI) [Ratio] 26.6 kg/m2 Dr. Dominique Lang MD Work Phone: [facility] 10-05-2024 10:33-0400 Body weight 55.[address] Dominique Lang MD Work Phone: [facility] 10-05-2024 09:51-0400 Body height 144.[address] Dominique Lang MD Work Phone: [facility] 08-03-2024 00:03-0400 SaO2% (BldA) [Mass fraction] 91 % EVAN ROMERO [facility] Comment on above: Order Comment: Specimen Type: ARTERIAL B LOOD SPECIMENOrdering Facility: [facility] Address: [address] [place] [address] Performed By: #### A LLBG ####[facility] LABORATORYCLIA [id number] [place] [address] [place] 08-01-2024 03:00-0400 Body temperature 97.8 [degF] Dr. Dominique Lang MD Work Phone: 5(674)069-954452 [address] 08-01-2024 03:00-0400 Diastolic blood pressure 73 mm[Hg] Dr. Dominique smith MD Work Phone: 0(168)279-705350 [place] [address] 08-01-2024 03:00-0400 Heart rate 83 /min Dr. Dominique Lang MD Work Phone: 9(904)558-937123 [place] [address] 08-01-2024 03:00-0400 Respiratory rate 20 /min Dr. Dominique Lang MD Work Phone: 3(608)166-631750 [place] [address] 08-01-2024 03:00-0400 SaO2% (BldA) [Mass fraction] 93 % Dr. Dominique Lang MD Work Phone: 5(092)336-691423 [place] [address] 08-01-2024 03:00-0400 Systolic blood pressure 180 mm[Hg] Dr. Dominique nelson MD Work Phone: [facility] 07-31-2024 23:35-0400 Body height 144.[address] Dominique Lang MD Work Phone: 0(918)414-275323 [place] [address] 07-31-2024 23:35-0400 Body mass index (BMI) [Ratio] 30.1 kg/m2 Dr. Dominique Lang MD Work Phone: [facility] 07-31-2024 23:35-0400 Body weight 63.[address] Dominique Lang MD Work Phone: 5(285)329-348823 [place] [address] 06-30-2024 08:14-0400 Body mass index (BMI) [Ratio] 27.6 kg/m2 Dr. Dominique Lang MD Work Phone: 0(699)348-269523 [place] [address] 06-30-2024 08:14-0400 Body temperature 97.4 [degF] Dr. Dominique Lang MD Work Phone: 9(232)253-099950 [place] [address] 06-30-2024 08:14-0400 Body weight 58.[address] Dominique Lang MD Work Phone: 7(194)344-117750 [place] [address] 06-30-2024 08:14-0400 Diastolic blood pressure 83 mm[Hg] Dr. Dominique smith MD Work Phone: 1(242)968-733550 [place] [address] 06-30-2024 08:14-0400 Heart rate 78 /min Dr. Dominique Lang MD Work Phone: 1(057)278-476250 [place] [address] 06-30-2024 08:14-0400 Respiratory rate 18 /min Dr. Dominique Lang MD Work Phone: 8(947)332-443750 [place] [address] 06-30-2024 08:14-0400 SaO2% (BldA) [Mass fraction] 95 % Dr. Dominique Lang MD Work Phone: 3(887)782-716350 [place] [address] 06-30-2024 08:14-0400 Systolic blood pressure 138 mm[Hg] Dr. Dominique nelson MD Work Phone: 2(494)008-696750 [place] [address] 06-16-2024 13:11-0400 Body height 144.[address] Dominique Lang MD Work Phone: 2(082)972-105850 [place] [address] 06-16-2024 13:11-0400 Body mass index (BMI) [Ratio] 27.6 kg/m2 Dr. Dominique Lang MD Work Phone: 3(494)046-887150 [place] [address] 06-16-2024 13:11-0400 Body weight 58.[address] Dominique Lang MD Work Phone: 8(257)491-677950 [place] [address] 06-16-2024 13:11-0400 Diastolic blood pressure 71 mm[Hg] Dr. Dominique smith MD Work Phone: [facility] 06-16-2024 13:11-0400 Heart rate 74 /min Dr. Dominique Lang MD Work Phone: [facility] 06-16-2024 13:11-0400 Respiratory rate 16 /min Dr. Dominique Lang MD Work Phone: [facility] 06-16-2024 13:11-0400 Systolic blood pressure 143 mm[Hg] Dr. Dominique nelson MD Work Phone: 0(697)129-928623 [place] [address] 04-01-2024 08:47-0500 Body height 144.[address] Dominique Lang MD Work Phone: 2(255)745-621052 [address] 04-01-2024 08:47-0500 Body mass index (BMI) [Ratio] 28.5 kg/m2 Dr. Dominique Lang MD Work Phone: 0(167)597-583223 [place] [address] 04-01-2024 08:47-0500 Body temperature 97.3 [degF] Dr. Dominique Lang MD Work Phone: [facility] 04-01-2024 08:47-0500 Body weight 59.[address] Dominique Lang MD Work Phone: [facility] 04-01-2024 08:47-0500 Diastolic blood pressure 86 mm[Hg] Dr. Dominique smith MD Work Phone: [facility] 04-01-2024 08:47-0500 Heart rate 85 /min Dr. Dominique Lang MD Work Phone: [facility] 04-01-2024 08:47-0500 Respiratory rate 20 /min Dr. Dominique Lang MD Work Phone: [facility] 04-01-2024 08:47-0500 SaO2% (BldA) [Mass fraction] 94 % Dr. Dominique Lang MD Work Phone: [facility] 04-01-2024 08:47-0500 Systolic blood pressure 130 mm[Hg] Dr. Dominique nelson MD Work Phone: [facility] 06-11-2023 15:01-0400 Body height 144.[address] Dominique Lang Work Phone: [facility] 06-11-2023 15:01-0400 Body mass index (BMI) [Ratio] 29.5 kg/m2 Dr. Dominique Lang Work Phone: [facility] 06-11-2023 15:01-0400 Body weight 61.[address] Dominique Lang Work Phone: [facility] 06-11-2023 15:01-0400 Diastolic blood pressure 80 mm[Hg] Dr. Dominique smith Work Phone: [facility] 06-11-2023 15:01-0400 Heart rate 97 /min Dr. Dominique Lang Work Phone: [facility] 06-11-2023 15:01-0400 Respiratory rate 16 /min Dr. Dominique Lang Work Phone: [facility] 06-11-2023 15:01-0400 Systolic blood pressure 142 mm[Hg] Dr. Dominique nelson Work Phone: [facility] 06-10-2023 08:04-0400 Body mass index (BMI) [Ratio] 26.6 kg/m2 Dr. Dominique Lang Work Phone: [facility] 06-10-2023 08:04-0400 Body temperature 98 [degF] Dr. Dominique Lang Work Phone: [facility] 06-10-2023 08:04-0400 Body weight 55.[address] Dominique Lang Work Phone: [facility] 06-10-2023 08:04-0400 Diastolic blood pressure 75 mm[Hg] Dr. Dominique smith Work Phone: [facility] 06-10-2023 08:04-0400 Heart rate 95 /min Dr. Dominique Lang Work Phone: [facility] 06-10-2023 08:04-0400 Respiratory rate 20 /min Dr. Dominique Lang Work Phone: [facility] 06-10-2023 08:04-0400 SaO2% (BldA) [Mass fraction] 94 % Dr. Dominique Lang Work Phone: [facility] 06-10-2023 08:04-0400 Systolic blood pressure 139 mm[Hg] Dr. Dominique nelson Work Phone: [facility] 07-07-2022 13:42-0400 Body temperature 97.9 [degF] Dr. Dominique Lang Work Phone: [facility] 07-07-2022 13:42-0400 Diastolic blood pressure 59 mm[Hg] Dr. Dominique smith Work Phone: [facility] 07-07-2022 13:42-0400 Heart rate 67 /min Dr. Dominique Lang Work Phone: [facility] 07-07-2022 13:42-0400 Respiratory rate 17 /min Dr. Dominique Lang Work Phone: [facility] 07-07-2022 13:42-0400 SaO2% (BldA) [Mass fraction] 98 % Dr. Dominique Lang Work Phone: [facility] 07-07-2022 13:42-0400 Systolic blood pressure 128 mm[Hg] Dr. Dominique nelson Work Phone: [facility] 07-07-2022 11:04-0400 Body height 144.[address] Dominique Lang Work Phone: [facility] 07-07-2022 11:04-0400 Body mass index (BMI) [Ratio] 28.8 kg/m2 Dr. Dominique Lang Work Phone: [facility] 07-07-2022 11:04-0400 Body weight 60.[address] Dominique Lang Work Phone: [facility] 04-26-2022 15:33-0500 Body height 144.[address] Dominique Lang Work Phone: [facility] 04-26-2022 15:33-0500 Body mass index (BMI) [Ratio] 28.5 kg/m2 Dr. Dominique Lang Work Phone: [facility] 04-26-2022 15:33-0500 Body weight 59.[address] Dominique Lang Work Phone: [facility] 04-26-2022 15:33-0500 Diastolic blood pressure 86 mm[Hg] Dr. Dominique smith Work Phone: [facility] 04-26-2022 15:33-0500 Heart rate 90 /min Dr. Dominique Lang Work Phone: [facility] 04-26-2022 15:33-0500 Respiratory rate 18 /min Dr. Dominique Lang Work Phone: [facility] 04-26-2022 15:33-0500 SaO2% (BldA) [Mass fraction] 98 % Dr. Dominique Lang Work Phone: [facility] 04-26-2022 15:33-0500 Systolic blood pressure 138 mm[Hg] Dr. Dominique nelson Work Phone: [facility] 09-21-2021 20:23-0400 Diastolic blood pressure 60 mm[Hg] [facility] Work Phone: 09-21-2021 20:23-0400 Heart rate 72 /min [facility] Work Phone: 09-21-2021 20:23-0400 Respiratory rate 16 /min [facility] Work Phone: 09-21-2021 20:23-0400 SaO2% (BldA) [Mass fraction] 93 % [facility] Work Phone: 09-21-2021 20:23-0400 Systolic blood pressure 137 mm[Hg] [facility] Work Phone: 09-21-2021 18:47-0400 Body height 144.78 cm [facility] Work Phone: 09-21-2021 18:47-0400 Body mass index (BMI) [Ratio] 26.2 kg/m2 [facility] Work Phone: 09-21-2021 18:47-0400 Body temperature 98.2 [degF] [facility] Work Phone: 09-21-2021 18:47-0400 Body weight 54.88 kg [facility] Work Phone: 08-16-2021 19:02-0400 Body height 144.[address] Dominique Lang Work Phone: [facility] Work Phone: 08-16-2021 19:02-0400 Body mass index (BMI) [Ratio] 28.1 kg/m2 Dr. Dominique Lang Work Phone: [facility] Work Phone: 08-16-2021 19:02-0400 Body temperature 97.5 [degF] Dr. Dominique Lang Work Phone: [facility] Work Phone: 08-16-2021 19:02-0400 Body weight 58.[address] Dominique Lang Work Phone: [facility] Work Phone: 08-16-2021 19:02-0400 Diastolic blood pressure 67 mm[Hg] Dr. Dominique smith Work Phone: [facility] Work Phone: 08-16-2021 19:02-0400 Heart rate 85 /min Dr. Dominique Lang Work Phone: [facility] Work Phone: 08-16-2021 19:02-0400 Respiratory rate 18 /min Dr. Dominique Lang Work Phone: [facility] Work Phone: 08-16-2021 19:02-0400 SaO2% (BldA) [Mass fraction] 98 % Dr. Dominique Lang Work Phone: [facility] Work Phone: 08-16-2021 19:02-0400 Systolic blood pressure 146 mm[Hg] Dr. Dominique nelson Work Phone: [facility] Work Phone: 06-10-2021 11:01-0400 Body temperature 98.6 [degF] Dr. Dominique Lang Work Phone: [facility] Work Phone: 06-10-2021 11:01-0400 Diastolic blood pressure 62 mm[Hg] Dr. Dominique smith Work Phone: [facility] Work Phone: 06-10-2021 11:01-0400 Heart rate 72 /min Dr. Dominique Lang Work Phone: [facility] Work Phone: 06-10-2021 11:01-0400 Respiratory rate 18 /min Dr. Dominique Lang Work Phone: [facility] Work Phone: 06-10-2021 11:01-0400 SaO2% (BldA) [Mass fraction] 96 % Dr. Dominique Lang Work Phone: [facility] Work Phone: 06-10-2021 11:01-0400 Systolic blood pressure 129 mm[Hg] Dr. Dominique nelson Work Phone: [facility] Work Phone: 06-08-2021 10:45-0400 Inhaled oxygen flow rate 3 L/min [facility] Work Phone: 06-07-2021 09:00-0400 Body height 144.[address] Dominique Lang Work Phone: [facility] Work Phone: 06-07-2021 09:00-0400 Body weight 64.[address] Dominique Lang Work Phone: [facility] Work Phone: 05-26-2021 14:27-0500 Inhaled oxygen concentration 97 % [facility] Work Phone: 05-26-2021 13:27-0500 Inhaled oxygen concentration 97 % Dr. Dominique Lang Work Phone: [facility] Work Phone: 05-23-2021 15:04-0500 Body temperature 97.2 [degF] Dr. Dominique Lang Work Phone: [facility] Work Phone: 05-23-2021 15:04-0500 Diastolic blood pressure 66 mm[Hg] Dr. Dominique Washington er Work Phone: [facility] Work Phone: 05-23-2021 15:04-0500 Heart rate 98 /min Dr. Dominique Lang Work Phone: [facility] Work Phone: 05-23-2021 15:04-0500 Respiratory rate 16 /min Dr. Dominique Lang Work Phone: [facility] Work Phone: 05-23-2021 15:04-0500 SaO2% (BldA) [Mass fraction] 92 % Dr. Dominique Lang Work Phone: [facility] Work Phone: 05-23-2021 15:04-0500 Systolic blood pressure 149 mm[Hg] Dr. Dominique nelson Work Phone: [facility] Work Phone: 05-22-2021 15:00-0500 Body temperature 98.8 [degF] Dr. Dominique Lang Work Phone: [facility] Work Phone: 05-22-2021 15:00-0500 Diastolic blood pressure 43 mm[Hg] Dr. Dominique Washington er Work Phone: [facility] Work Phone: 05-22-2021 15:00-0500 Heart rate 81 /min Dr. Dominique Lang Work Phone: [facility] Work Phone: 05-22-2021 15:00-0500 Respiratory rate 14 /min Dr. Dominique Lang Work Phone: [facility] Work Phone: 05-22-2021 15:00-0500 SaO2% (BldA) [Mass fraction] 95 % Dr. Dominique Lang Work Phone: [facility] Work Phone: 05-22-2021 15:00-0500 Systolic blood pressure 117 mm[Hg] Dr. Dominique nelson Work Phone: [facility] Work Phone: 05-22-2021 08:56-0500 Body weight 65.[address] Dominique Lang Work Phone: [facility] Work Phone: 05-19-2021 00:34-0500 Body mass index (BMI) [Ratio] 31.1 kg/m2 Dr. Dominique Lang Work Phone: [facility] Work Phone: 04-18-2021 07:11-0500 Body weight 64.[address] Dominique Lang Work Phone: [facility] Work Phone: 04-18-2021 07:11-0500 Diastolic blood pressure 64 mm[Hg] Dr. Dominique smith Work Phone: [facility] Work Phone: 04-18-2021 07:11-0500 Heart rate 68 /min Dr. Dominique Lang Work Phone: [facility] Work Phone: 04-18-2021 07:11-0500 Respiratory rate 16 /min Dr. Dominique Lang Work Phone: [facility] Work Phone: 04-18-2021 07:11-0500 SaO2% (BldA) [Mass fraction] 97 % Dr. Dominique Lang Work Phone: [facility] Work Phone: 04-18-2021 07:11-0500 Systolic blood pressure 120 mm[Hg] Dr. Dominique nelson Work Phone: [facility] Work Phone: 04-14-2020 07:42-0500 Body mass index (BMI) [Ratio] 33.7 kg/m2 Dr. Dominique Lang Work Phone: [facility] Work Phone: Encounters Encounter Date Encounter Type Care Provider Facility Start: 11-05-2024 ambulatory [facility] Facility: [facility] Start: 10-14-2024 End: 10-14-[address] Dominique Lang MD Work Phone: [facility] Start: 10-14-2024 End: 10-14-[address] Dominiqeu Lang MD [facility] Work Phone: Start: 10-14-2024 End: 10-14-2024 ambulatory Dominique Lang Facility:[facility] Start: 10-05-2024 End: 10-05-2024 Emergency department patient visit Dr. Dominique Lang MD Work Phone: -Emergency Department Work Phone: Start: 09-16-2024 End: 09-16-[address] Dominique Lang MD Work Phone: -Laboratory [place] Start: 09-16-2024 End: 09-16-[address] Dominique Lang MD -[facility] Work Phone: Start: 09-16-2024 End: 09-16-2024 ambulatory Dominique Lang Facility:[facility] Start: 08-24-2024 ambulatory [facility] Facility :[facility] Start: 08-24-2024 End: 08-24-2024 Subsequent hospital visit by physician [facility] SCAN [facility] Comment on above: Subdural hematoma (H CC) [S06.5XAA] Start: 08-06-2024 End: 08-21-2024 Evaluation and management of inpatient ALEKSEY Darian SANGEETHANico Facility:[facility] Start: 08-01-2024 End: 08-06-2024 Evaluation and management of inpatient ECTOR WYATT IZA Facility:[facility] Start: 07-31-2024 End: 08-01-2024 Emergency department patient visit Dr. Dominique Lang MD Work Phone: -Emergency Department Work Phone: Start: 07-24-2024 Non-patient / Non-visit Dr. Rohan sauceda MD -[facility] Start: 07-24-2024 End: 07-24-[address] Dominique Lang MD Work Phone: [facility] Work Phone: Start: 07-24-2024 End: 07-24-2024 Patient encounter procedure Nargis PRIETO -Cardiovascular Services Work Phone: Start: 07-24-2024 End: 07-24-2024 ambulatory Dominique Lang Facility:[facility] Start: 06-30-2024 End: 06-30-2024 Patient encounter procedure Nargis PRIETO -[facility] Work Phone: Start: 06-30-2024 End: 06-30-2024 ambulatory Dominique Lang [facility] Start: 06-16-2024 End: 06-16-2024 Patient encounter procedure Cande ESCOBAR -[facility] Work Phone: Start: 06-16-2024 End: 06-16-2024 ambulatory Dominique Lang Facility:[facility] Start: 06-01-2024 End: 06-01-[address] Dominique Lang MD Work Phone: [facility] Work Phone: Start: 06-01-2024 End: 06-01-[address] Dominique Lang MD -Nuclear Medicine, [facility] Work Phone: Start: 06-01-2024 End: 06-01-2024 ambulatory Dominique Lang Facility:[facility] Start: 05-05-2024 End: 05-05-[address] Dominique Lang MD -Laboratory, [facility] Start: 05-05-2024 End: 05-05-2024 ambulatory Dominique Lang Facility:[facility] Start: 04-14-2024 End: 04-14-2024 Patient encounter procedure Nargis Prajapati NP-C -Sleep Lab Work Phone: Start: 04-14-2024 End: 04-14-2024 ambulatory Dominique Lang Facility:[facility] Start: 04-01-2024 End: 04-01-2024 Patient encounter procedure Nargis Prajapati NP-C -[facility] Work Phone: Start: 04-01-2024 End: 04-01-2024 ambulatory Dominique Lang Facility:[facility] Start: 01-15-2024 End: 01-15-2024 ambulatory Dominique Lang Facility:[facility] Start: 01-01-2024 End: 01-01-2024 ambulatory Dominique Lang Facility:[facility] Start: 12-13-2023 End: 12-13-2023 ambulatory Dominique Lang Facility:[facility] Start: 12-11-2023 End: 12-11-2023 ambulatory Dominique Lang Facility:[facility] Start: 12-10-2023 End: 12-10-2023 ambulatory Libertad Fernando NP Facility:[facility] Start: 12-10-2023 End: 12-10-2023 ambulatory Libertad Fernando NP Facility:[facility] Start: 12-06-2023 End: 12-06-2023 Emergency department patient visit Karl Cummings Facility:[facility] Start: 07-11-2023 End: 07-11-[address] Dominique Lang Work Phone: [facility] Work Phone: Start: 07-11-2023 End: 07-11-[address] Dominique Lang Work Phone: [facility]-Sleep Lab Work Phone: Start: 06-21-2023 End: 06-21-[address] Dominique Lang Work Phone: [facility] Work Phone: Start: 06-21-2023 End: 06-21-[address] Dominique Lang Work Phone: [facility]-Sleep Lab Work Phone: Start: 06-11-2023 End: 06-11-[address] Dominique Lang Work Phone: [facility] Work Phone: Start: 06-10-2023 End: 06-10-[address] Dominique Lang Work Phone: [facility] Work Phone: Start: 05-24-2023 End: 05-24-2023 ambulatory [facility] Work Phone: Start: 05-24-2023 End: 05-24-2023 Patient encounter procedure [facility] Work Phone: Start: 01-09-2023 End: 01-09-2023 ambulatory [facility] Work Phone: Start: 01-09-2023 End: 01-09-2023 Patient encounter procedure [facility] Start: 08-29-2022 End: 08-29-[address] Dominique Lang Work Phone: [facility] Work Phone: Start: 08-29-2022 End: 08-29-[address] Dominique Lang Work Phone: [facility] Start: 07-07-2022 Non-patient / Non-visit Dr. Liliana Lang Work Phone: [facility] Start: 07-07-2022 End: 07-07-2022 Emergency department patient visit Dr. Dominique Lang Work Phone: [facility]-Emergency Department Start: 06-08-2022 End: 06-08-[address] Dominique Lang Work Phone: [facility] Work Phone: Start: 06-08-2022 End: 06-08-[address] Dominique Lang Work Phone: [facility] Start: 04-26-2022 End: 04-26-[address] Dominique Lang Work Phone: [facility] Start: 03-07-2022 End: 03-07-[address] Dominique Lang Work Phone: [facility] Start: 12-01-2021 End: 12-01-2021 ambulatory [facility] Work Phone: Start: 12-01-2021 End: 12-01-2021 Patient encounter procedure [facility], Specimen Start: 10-19-2021 End: 10-19-2021 Patient encounter procedure [facility] Start: 10-10-2021 Registered Rec[facility]ring [facility]-Physical Therapy Start: 09-21-2021 End: 09-21-2021 Emergency department patient visit [facility]-Emergency Department Start: 08-16-2021 End: 08-16-2021 Emergency department [facility] Start: 08-11-2021 End: 08-11-[address] [facility] Start: 08-04-2021 End: 08-04-[address] Dominique Lang Work Phone: [facility] Start: 06-21-2021 End: 06-21-[address] Dominique Lang Work Phone: [facility] Start: 06-19-2021 End: 06-19-[address] Dominique Lang Work Phone: [facility] Start: 05-23-2021 End: 05-23-[address] Dominique Lang Work Phone: [facility]-Medical Out Start: 05-22-2021 End: 06-10-2021 Evaluation and management of inpatient Dr. Dominique Lang [facility] Start: 05-22-2021 Non-patient / Non-visit Dr. Liliana Lang Work Phone: [facility] Start: 05-21-2021 Non-patient / Non-visit Dr. Liliana Lang Work Phone: [facility] Start: 05-20-2021 Non-patient / Non-visit Dr. Liliana Lang Work Phone: [facility] Start: 05-19-2021 Non-patient / Non-visit Dr. Liliana Lang Work Phone: [facility] Start: 05-18-2021 Non-patient / Non-visit Dr. Liliana Lang Work Phone: [facility] Start: 05-18-2021 End: 05-22-2021 Evaluation and management of inpatient Dr. Dominique Lang Work Phone: [facility]-Medical Surgical 3 Start: 05-17-2021 Non-patient / Non-visit Dr. Liliana Lang Work Phone: [facility] Start: 05-17-2021 End: 05-17-[address] Dominique Lang Work Phone: [facility]-Cardiovascular Services Start: 04-18-2021 End: 04-18-[address] Dominique Lang Work Phone: [facility] Start: 10-09-2017 End: 10-14-2017 Patient encounter LEONELA NEWMAN Facility:[facility] Start: 09-26-2017 End: 10-01-2017 Patient encounter LEONELA NEWMAN Facility:[facility] Start: 04-30-2017 End: 05-01-2017 Patient encounter LEONELA NEWMAN Facility:[facility] Start: 04-10-2017 End: 04-15-2017 Patient encounter LEONELA NEWMAN Facility:[facility] Start: 11-16-2016 End: 11-17-2016 Patient encounter [facility]ONELA NEWMAN [facility] Procedures Date Procedure Procedure Detail Performing Clinician Start: 10-14-2024 X-ray of chest, PA a nd lateral views Dr. Dominique Lang MD Work Phone: Start: 10-05-2024 X-ray of chest, PA a [...] Ct head/brain w/o co ntrast material Evan Romero PA-C Work Phone: Start: 08-01-2024 CT of chest without contrast Dr. Dominique Lang MD Work Phone: Start: 08-01-2024 Antibody screen EVAN ONEAIL Comment on above: Order Comment: Speci men Type: BLOOD SPECIMENOrdering Facility: [facility] Address: [address] [place] [address] Performed By: #### T SCR ####[facility] BLOOD [facility] [id number] [place] [address] [place] Start: 08-01-2024 Estimated [...] Lang Work Phone: Start: 05-19-2021 Fluoroscopic guidance D r. Dominique Schinner Work Phone: Start: 05-19-2021 Plain x-ray of [...] DTaP,Tdap,Td Vaccine (5 - Td or Tdap) [facility] Start: 10-05-2024 [facility] Start: 10-05-2024 [facility] Start: 08-27-2024 End: 08-27-2024 Patient encounter procedure 08/27/2024 1:30 PM EDT Office Visit [facility] [address] [place] [id number] Mouna Palm APRN.PARAOPTOMETRIC [address] [place] [address] 3-4 week SDH f/u, CT done 08/24 [facility] Comment on above: 3-4 week SDH f/u, CT done 08/24 Start: 08-01-2024 [facility] Start: 06-02-2024 Covid-19 Vaccine () Covid-19 Vaccine () [facility] Start: 03-18-2024 Advance Directive Discussion Advance Directive Discussion [facility] Start: 09-21-2021 Simple repair f/e/e/n/l/m 2.5cm/< RPR F/E/E/N/L/M 2.5 CM/< [facility] Work Phone: Start: 06-11-2021 Development of care plan [facility] Work Phone: Start: 06-10-2021 Patient discharge [facility] Work Phone: Start: 06-07-2021 Referral to service [facility] Work Phone: Start: 05-26-2021 Application of elast ic bandage [facility] Work Phone: Start: 05-23-2021 Development of care plan [facility] Work Phone: Start: 05-23-2021 Developing a treatme nt plan [facility] Work Phone: Start: 05-23-2021 Administration of bl ood product [facility] Work Phone: Start: 05-23-2021 [facility] Work Phone: Start: 05-23-2021 Speech therapy assessment [facility] Work Phone: Start: 05-23-2021 [facility] Work Phone: Start: 05-22-2021 [facility] Work Phone: Start: 05-22-2021 End: 05-22-2021 Wound care [facility] Work Phone: Start: 05-22-2021 Following clinical pathway protocol [facility] Work Phone: Start: 05-22-2021 Oxygen therapy [facility] Work Phone: Start: 05-22-2021 Scheduling [facility] Work Phone: Start: 05-22-2021 Wound care [facility] Work Phone: Start: 05-22-2021 Admission procedure [facility] Work Phone: Start: 05-22-2021 Measuring intake and output [facility] Work Phone: Start: 05-22-2021 Patient referral to dietitian [facility] Work Phone: Start: 05-22-2021 Referral to occupati onal therapist [facility] Work Phone: Start: 05-22-2021 Referral to service [facility] Work Phone: Start: 05-22-2021 Vital signs measurements [facility] Work Phone: Start: 05-22-2021 End: 05-22-2021 [facility] Work Phone: Start: 2006 Screening for osteoporosis Bone Density Screening [facility] Start: 05-02-2002 Hemoglobin A1c measurement HbA1C [facility] Start: 1959 Depression Screening Depression Scre ening [facility] Start: 1959 Hepatitis B surface antibody level LDL Cholesterol [facility] Start: 1951 Diabetic foot examination Diabetic Foot Exam [facility] Start: 1951 Glaucoma screening Dilated Retinal E xam [facility] Start: 1951 Hepatitis B screening Urine Albumin:Creatinine Ratio [facility] Patient Education [facility] Work Phone: Patient referral [facility] Work Phone: Immunizations Immunization Date Immunization Notes Care Provider Andrea aguirre 09-21-2021 tetanus toxoid, redu davi diphtheria toxoid, and acellular pertussis vaccine, adsorbed [facility] 12-13-2020 Covid (Pfizer) Dr. Dominique craft Work Phone: [facility] 06-09-2020 Covid (Pfizer) Dr. Dominique craft Work Phone: [facility] 05-19-2020 Covid (Pfizer) Dr. Dominique craft Work Phone: [facility] 12-13-2016 tetanus toxoid, redu davi diphtheria toxoid, and acellular pertussis vaccine, adsorbed Dr. Dominique Lang Work Phone: [facility] Payers Date Payer Category Payer Medicare (Managed Care) [employer] HMO [id number] 2023 Self-pay [id number] 2023 Unknown [id number] 2021 Private Health Insurance [id number] 2010 Medicare [id number] Medicare [id number] Unknown [id number] .462 Unknown [id number] 2.16.840.1.996751.3.579.2 .462 Unknown [id number] 2.16.840.1.987629.3.579.2 .462 Unknown [id number] 2.16.840.1.166609.3.579.2 .462 Unknown [id number] 2.16.840.1.986034.3.579.2 .462 Unknown [id number] 2.16.840.1.132479.3.579.2 .462 Unknown [id number] 2.16.840.1.343364.3.579.2 .462 Unknown [id number] 2.16.840.1.923874.3.579.2 .462 Unknown [id number] 2.16.840.1.156058.3.579.2 .462 Unknown [id number] 2.16.840.1.528041.3.579.2 .462 Unknown [id number] 2.16.840.1.472303.3.579.2 .462 Unknown [id number] 2.16.840.1.951551.3.579.2 .462 Unknown [id number] 2.16.840.1.853312.3.579.2 .462 Unknown [id number] 2.16.840.1.089440.3.579.2 .462 Unknown [id number] 2.16.840.1.065156.3.579.2 .462 Unknown [id number] 2.16.840.1.583166.3.579.2 .462 Unknown [id number] 2.16.840.1.442948.3.579.2 .462 Unknown [id number] 2.16.840.1.123611.3.579.2 .462 Unknown [id number] 2.16.840.1.630147.3.579.2 .462 Unknown [id number] 2.16.840.1.818925.3.579.2 .462 Unknown [id number] 2.16.840.1.933777.3.579.2 .462 Unknown [id number] 2.16.840.1.876958.3.579.2 .462 Social History Date Type Detail Facility Start: 05-22-2021 End: 06-11-2023 Tobacco smoking status NHIS Unknown if ever smoked [facility] Start: 1940 Sex Assigned At Female [facility] Start: 12-06-2023 End: 10-05-2024 Tobacco smoking status NHIS Never smoked tobacco (finding) [facility] Start: 06-08-2024 Sex Female (finding) [facility] Start: 08-03-2024 Tobacco use and exposure Smoke less tobacco non-user [facility] Start: 08-07-2024 Alcoholic beverage intake Life time non-drinker (finding) [facility] Start: 08-02-2024 End: 08-07-2024 History of Social function [facility] Start: 08-02-2024 End: 08-07-2024 [facility] Utilities [facility] Has the [employer], [employer] - On[employer], or water [employer] threatened to shut off services in your home in past 12Mo No [facility] (I/We) worried wheth er (my/our) food would run out before (I/we) got money to buy more. Never true [facility] In the past 12 month s, has lack of transportation kept you from medical appointments or from getting medications? No [facility] Start: 1940 Sex assigned at Not on file C [facility] Medical Equipment Procedure Code Equipment Code Equipment Origin al Text Equipment Identifier Dates ([id number]) Femur nail, sterile ()[id number] FDA Start: 05-19-2021 ([id number]) Orthopaedic bone screw, non-bioabsorbable, sterile ([id number] FDA Start: 05-19-2021 ([id number]) Orthopaedic bone screw, non-bioabsorbable, sterile ()[id number] FDA Start: 05-19-2021 Goals Date Patient Goal Desired Activity /State Functional Status Date Assessment Result Facility 08-21-2024 Are you deaf, or do you have serious difficulty hearing No 08/21/2024 9:55 AM Marti Koehler, BARBARA No [facility] 08-21-2024 Are you blind, or do you have serious difficulty seeing, even when wearing glasses No 08/21/2024 9:55 AM Marti Koehler, BARBARA No [facility] 08-21-2024 Do you have serious difficulty walking or climbing stairs No 08/21/2024 9:55 AM Marti Koehler, BARBARA No [facility] 08-21-2024 Do you have difficul ty dressing or bathing No 08/21/2024 9:55 AM Marti Koehler, BARBARA [facility] 08-21-2024 Because of a physica l, mental, or emotional condition, do you have difficulty doing errands alone such as visiting a physician's office or shopping No 08/21/2024 9:55 AM Marti Koehler, BARBARA No [facility] 06-09-2021 Functional status Activity Abili ty With Assist of 1 [facility] Work Phone: 06-08-2021 Functional status Assistive Marsha gracia Rolling Walker [facility] Work Phone: 05-22-2021 Functional status Activity Abili ty With Assistance of 3 or more [facility] Work Phone: 05-21-2021 Functional status Chair [facility] Work Phone: Mental Status Date Assessment Result Facility 10-05-2024 Cognitive function Level Of Cons ciousness Awake;Appropriate;Follows Commands;Drowsy [facility] Work Phone: 08-21-2024 Because of a physica l, mental, or emotional condition, do you have serious difficulty concentrating, remembering, or making decisions No 08/21/2024 9:55 AM EDT Marti Cruz, BARBARA No [facility] 06-10-2021 Cognitive function Voice/Name [facility] Work Phone: 05-23-2021 Cognitive function Voice/Name [facility] Work Phone: 05-22-2021 Cognitive function Awake;Alert;Appropriat [facility] Work Phone: 05-21-2021 Cognitive function Appropriate;Cooperativ [facility] Work Phone: Clinical Notes 10-16-2001 to 10-14-2024 Marcella Cooley, (R) - 08/24/2024 4:00 PM EDT Note Date & Type Note Facility 10-14-2024 Radiology Diagnostic study note [facility] Imaging Services [address] [place], [place] [address] Chest PA and Lateral MR#: [id number] Acct: [id number] Name: TAMICA ANDERSON Rep #: [id number] : 1940 F 84 From: Kamar Reynolds MD PCP: Dr. Dominique Lang MD Status: RE G CLI Study:Chest PA and Lateral Date of Exam: 10/14/24 Exam# [id number] Ordering Dr: Dominique Lang MD PROCEDURE: CHEST PA AND LATERAL 10/14/2024 REASON FOR EXAM: CAP TECHNIQUE: CHEST PA AND LATERAL COMPARISON: Chest x-ray of 10/06/2019 RAD/Chest PA and Lateral IMPRESSION: Prior sternotomy again noted. The cardiomediastinal silhouette is stable, without evidence of cardiomegaly. Prior coronary artery stenting is again seen. No interval osseous change is noted. Marked right hemidiaphragm elevation is again seen. Lungs appear clear of acute disease on today's examination. No pleural effusion or pneumothorax is seen. No evidence of acute cardiopulmonary disease. Reading Location: [place] [address] CC: Dr. 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 Dominique Lang MD Status: RE G ER Study:Chest PA and Lateral Date of Exam: 10/05/24 Exam# [id number] Ordering Dr: Skinny Cerrato MD EXAM: XR [...] IMPRESSION: Bibasilar atelectasis or pneumonia. Reading Location: [facility] CC: Dr. Dominique Lang MD; Dr. 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 Author Type: Body And Frame Man Type: Progress Notes Filed: 08/24/2024 16:01 Note [...] PATIENT PRESENTS WITH AN IMPLANTABLE OR ATTACHED COMPENSATION ADJUSTER: No RADIOLOGY DEPARTMENT: CT; Exam(s) Completed: Brain PERIPHERAL IV DATA: Not applicable SIGNED BY: MAURICE Eid) August 24, 2024 4:01 PM [facility] 08-18-2024 Note HNO ID: [id number] Author: RUPINDER RASHEED RN Service: Care Management Author Type: Registered Nurse Type: Care Mgt Progress Note Filed: 08/18/2024 08:42 Note Text: CASE MANAGEMENT PROGRESS NOTE SERVICE DATE: 08/18/2024 SERVICE TIME: 8:41 AM Scheduled f/u appt with plastics- Viktoriya Rodriguez [facility] SIGNATURE: Rupinder Rasheed RN PATIENT NAME: Tamica Anderson DATE: August 18, 2024 TIME: 8:41 AM PAGER/CONTACT #: [phone] [facility] 08-15-2024 Note HNO ID: [id number] Author: ALISON MAC APRN.PARAOPTOMETRIC Service: Hospital Medicine Author Type: Nurse Practitioner Type: Progress Notes Filed: 08/15/2024 16:51 Note Text: DEPARTMENT OF HOSPITAL MEDICINE PROGRESS NOTE SERVICE DATE: 08/15/2024 SERVICE TIME: 4:50 PM Hospital Medicine/Primary Attending: Ian Arredondo MD NIGHT AND WEEKEND COVERAGE: [facility] Medicine KARL 7a-7p Page [id number] 7p-7a Subjective INTERVAL HPI: - seen and [...] (2001) HTN, HLD, T2DM, was admitted to [facility] after a traumatic fall. Patient fell while [...] due to TBI. PT and OT recommended care home facility, thus patient was transferred to [facility] for further rehab services. Principal Problem: Aftercare - Hospitalization Dates: 08/01/2024-08/06/2024 - Hospitalization Diagnosis: Fall - Discharge Facility: [facility] - PT/OT Consult - Nutrition Consult [...] thinning medications - (more content not included)... [facility] 08-14-2024 Note HNO ID: [id number] Author: CEDRICK HUNG LSW Service: Care Management Author Type: Manager Multimedia Type: Care Mgt Progress Note Filed: 08/14/2024 20:32 Note Text: Summary: Family contact SOCIAL WORK PROGRESS NOTE Name: Tamica Anderson Nurse relayed that patient's daughter tried to schedule an appt with PCP and she too was told that they can't make an appt just to start [facility]. (HH agency reported that PCP's nurse told them that patient needs to be seen before they will follow) Sent daughter a text to relay that HH agency will contact PCP's office again to determine what they require.To keep her updated. Signature: VAN Blair Date: August 14, 2024 Time: 8:26 PM [facility] 08-13-2024 Note HNO ID: [id number] Author: CEDRICK HUNG LSW Service: Care Management Author Type: Manager Multimedia Type: Care Mgt Progress Note Filed: 08/13/2024 13:49 Note Text: Summary: Family Call SOCIAL WORK PROGRESS NOTE Name: Tamica Anderson Phoned patient's son Derrick. He will call PCP to schedule an appointment as PCP's office requested prior to following patient for HH. DC planned for 08/21. [facility]. 1:48 pm Received message from patient's daughter. Son called PCP to make appt. Office stated they do not want patient taken from hospital to see PCP. Relayed this to [facility]. Signature: VAN Blair Date: August 13, 2024 Time: 9:38 AM [facility] 08-12-2024 Note HNO ID: [id number] Author: CEDRICK HUNG LSW Service: Care Management Author Type: Manager Multimedia Type: Care Mgt Progress Note Filed: 08/12/2024 [...] Degree (Hcc) Attendees Present at Rounds: CM, PARAOPTOMETRIC, NM, NT, OT, PT, SW Needs Discussed [...] August 12, 2024 TIME: 2:21 PM CSN: [id number] [facility] 08-11-2024 Note HNO ID: [id number] Author: CEDRICK HUNG LSW Service: Care Management Author Type: Manager Multimedia Type: Care Mgt Progress Note Filed: 08/11/2024 14:56 Note Text: Summary: HHC SOCIAL WORK PROGRESS NOTE Name: Taimca Anderson Anoop [facility] is willing to accept patient but patient will need to see PCP preferably before HHC goes out. To discuss with patient/family. 2:55 pm Per patient PCP talked about setting up HHC, but she hasn't heard anything. Patient states she saw PCP recently. SW to call and confirm he will follow for C. Signature: VAN Blair Date: August 11, 2024 Time: 2:49 PM [facility] 08-11-2024 Note HNO ID: [id number] Author: MARTI BONILLA APRN.CNP Service: Hospital Medicine Author Type: Nurse Practitioner Type: Progress Notes Filed: 08/11/2024 09:43 Note Text: DEPARTMENT OF HOSPITAL MEDICINE PROGRESS NOTE SERVICE DATE: 08/11/2024 SERVICE TIME: 8:00 AM Hospital Medicine/Primary Attending: Oscar Rosas MD NIGHT AND WEEKEND COVERAGE: [facility] Medicine KARL 7a-7p Page [phone] 7p-7a Subjective INTERVAL HPI: - patient in bed, [...] (2001) HTN, HLD, T2DM, was admitted to [facility] after a traumatic fall. Patient fell while [...] due to TBI. PT and OT recommended care home facility, thus patient was [facility] to [facility] for further rehab services. Principal Problem: Aftercare - Hospitalization Dates: 08/01/2024-08/06/2024 - Hospitalization Diagnosis: Fall - Discharge Facility: [facility] - PT/OT Consult - Nutrition Consult [...] of Keppra f (more content not included)... [facility] 08-07-2024 Note HNO ID: [id number] Author: CEDRICK HUNG LSW Service: Care Management Author Type: Manager Multimedia Type: Care Mgt Initial Assessment Filed: 08/07/2024 21:19 Note Text: Summary: Initial Assessment CARE MANAGEMENT: ASSESSMENT AND DISCHARGE PLAN SERVICE DATE: August 07, 2024 SERVICE TIME: 5:35 pm PCP: Dominique Lang MD, MD Primary Contact: Extended Emergency Contact Information Primary Emergency Contact: Derrick Anderson Mobile Relation: Son Secondary Emergency Contact: Francisco Javier Wong Mobile Relation: Daughter Admission Status: Inpatient Swing Insurance Provider: [place] [facility] [place] Planning requested by: Per Department Practice [...] to go home, General wellness, Better appetite [place] Explained: [place] Given: Yes Level of Care [...] Agency Choices Post-Acute Discharge Plan: Home with [facility] Patient lives with son Derrick who works FT. She had several family members at bedside this evening: Derrick, daughters Francisco Javier/ and Malik, friend Don. Chart note states that if patient needs home O2, family would like to use [facility]. Patient has appts on 08/24 (radiology) and 08/27 (Neurology) She has a RW and 3 in 1 as well as a wheelchair. Patient uses a CPAP at home. SIGNATURE: VAN Blair PATIENT NAME: Tamica Anderson DATE: August 07, 2024 TIME: 9:15 PM [facility] 08-06-2024 Note HNO ID: [id number] Author: DIAMANTE GALINDO APRN.CNP Service: General Surgery Author Type: Nurse Practitioner Type: Progress Notes Filed: 08/07/2024 08:55 Note Text: Documentation Query Please clarify the diagnosis associated with the clinical indicators for this patient Provider Response: Hypokalemia supported by: Continued Lab Monitoring and potassium supplements This document will become part of the patient's medical record. [facility] 08-06-2024 Note HNO ID: [id number] Author: DIAMANTE GALINDO APRN.PARAOPTOMETRIC Service: General Surgery Author Type: Nurse Practitioner Type: Progress Notes Filed: 08/07/2024 08:56 Note Text: Documentation Query Please clarify the diagnosis associated with the clinical indicators: Other Acute blood loss anemia secondary to trauma This document will become part of the patient's medical record. [facility] 08-06-2024 Note HNO ID: [id number] Author: GILSON LERNER RN Service: Care Management Author Type: Registered Nurse Type: Care Mgt Progress Note Filed: 08/06/2024 12:17 Note Text: CARE MANAGEMENT DISCHARGE NOTE SERVICE DATE: August 06, 2024 SERVICE TIME: 12:15 PM Admission Date: 08/01/2024 LOS: 5 days Discharge Arrangement Discharge Arrangement: Senior Care Facility Was an expedited discharge program used?: No Provider Name: [facility] Caregiver Assessment Caregiver is ready, willing and able to meet the patient's needs as recommended by the inter-professional team: Yes Name of Caregiver: [facility] Transportation Arrangements Transportation Arrangements: Ambulance Transportation Agency and Phone #:: [facility] [place] ) [phone] / [phone] Date of Trip: 08/06/24 Time of Trip: 1300 Is Patient Medicaid Pending?: No Was transportation financial coverage discussed with family?: Family 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 Discharge today. Discharge orders complete. Plan is for SNF placement at discharge. Patient in agreement. [facility] is able to accept patient. Insurance authorization obtained. Transportation set for 1300. [facility] and bedside RN notified. SIGNATURE: Gilson Lerner RN PATIENT NAME: Tamica Anderson DATE: August 06, 2024 TIME: 12:15 PM [facility] 08-06-2024 Note HNO ID: [id number] Author: JEREMY FLORES PA-C Service: General Surgery Author Type: Physician It Compliance Manager Type: Plan of Care Filed: 08/06/2024 10:50 Note Text: Trauma Surgery Plan of Care 08/06/2024 (08/06/2024, 10:48 AM): Repeat CT brain completed 08/06/2024 secondary to AMS shows overall improvement in previously noted bleeds. Patient is now back to her baseline AANDOx3 and has no complaints. No further workup indicated. Plan for discharge to [facility] 08/06/2024. Jeremy Flores PA-C 08/06/2024 10:49 AM [facility] 08-06-2024 Note HNO ID: [id number] Author: JEREMY FLORES PA-C Service: General Surgery Author Type: Physician It Compliance Manager Type: Progress Notes Filed: 08/06/2024 08:23 Note Text: Trauma Surgery Progress Note SERVICE DATE: 08/06/2024 Trauma Service Pager: For questions or concerns Mon-Fri 6a-5p please page [phone]. After 5pm and on Weekends and Holidays, please page [phone] if in ICU or [phone] if on RNF. SUBJECTIVE: Paged received from [...] Date 08/05/24 07 - 08/06/24 0659 08/06/24 07 - 08/07/24 0659 Shift 7268-5840 4231-4897 5580-5725 24 Hour Total 0033-3579 0831-3350 8096-6008 24 Hour Total INTAKE PO 250 250 PO 250 250 Shift Total 250 250 OUTPUT Urine 150 150 300 Urine Not Saved. 2 x 2 x Output ( External Collection Device 08/04/241999 [facility]) 150 150 300 # of BMs [...] long-term current use of insulin (HCC) 08/02/2024 Closed fracture of nasal bone 08/02/2024 84 year old female s/p mchanical GLF on 08/01/2024 (Transfer from [place]) Imaging performed: 08/01/2024 - CT HNFC, PXR [...] lip laceration Operations/Procedures (more content not included)... [facility] 08-05-2024 Note HNO ID: [id number] Author: ALYSIA MAYEN RN Service: Nursing Author Type: Registered Nurse Type: Progress Notes Filed: 08/06/2024 03:40 Note Text: 0916 Notified that patient's Bp was 180/81 pulse 71, retook a manual bp which was 180/71, and pt is asymptomatic. reported to notify if systolic bp is 190 and above or if patient becomes symptomatic. [facility] 08-05-2024 Note HNO ID: [id number] Author: GILSON LERNER RN Service: Care Management [...] SNF placement at discharge. Patient in agreement. [facility] is able to accept patient. Awaiting insurance authorization and bed availability. Patient's son Derrick updated via phone ([phone]). ADDENDUM 08/05/24 1419: Insurance authorization for SNF placement at [facility] obtained and valid 08/05- 08/11. Awaiting bed availability. Jeremy Flores PA-C notified.Will continue to follow clinical course for further transitional/discharge planning needs. Transport at Discharge: Transportation Arrangements: Ambulance SIGNATURE: Gilson Lerner RN PATIENT NAME: Tamica Anderson DATE: August 05, 2024 TIME: 10:08 AM [facility] 08-05-2024 Note HNO ID: [id number] Author: SU JOHN PA Service: Geriatrics Author Type: Physician It Compliance Manager Type: Progress Notes Filed: 08/05/2024 09:44 Note Text: Documentation Query Please clarify the diagnosis associated with the clinical indicators: Delirium Only This document will become part of the patient's medical record. [facility] 08-05-2024 Note HNO ID: [id number] Author: JEREMY FLORES PA-C Service: General Surgery Author Type: Physician It Compliance Manager Type: Progress Notes Filed: 08/05/2024 08:56 Note Text: Trauma Surgery Progress Note SERVICE DATE: 08/05/2024 Trauma Service Pager: For questions or concerns Mon-Fri 6a-5p please page [phone]. After 5pm and on Weekends and Holidays, please page [phone] if in ICU or [phone] if on RNF. SUBJECTIVE: NAEON. Patient resting [...] IANDO: Date 08/04/24 07 - 08/05/24 0659 08/05/24699 - 08/06/24 0659 Shift 4875-6325 8618-3024 2368-4597 24 Hour Total 0766-8634 6717-1716 2399-3173 24 Hour Total INTAKE Shift Total OUTPUT Urine 835 991 3338 1400 Void (ml) 200 200 400 Urine Incontinence/Not Saved 1 x 1 x Urine Not Saved. 1 x 2 x 3 x Output ( External Collection Device 08/04/241999 [facility]) 1000 1000 # of BMs Number of BMs 2 x 2 x Shift Total 682 448 3693 1400 Weight (kg) 62.2 62.2 62.2 62.2 [...] s/p mchanical GLF on 08/01/2024 (Transfer from [place]) Imaging performed: 08/01/2024 - CT HNFC, PXR 08/01/2024 - CT HNCAPTL, repeat CT brain 08/02/2024 - CXR, KUB Traumatic Injuries: Acute subdural hematoma involving the lower anterior interhemispheric fissure which measures 8 mm in maximum width. Small volume of an adjacent acute subarachnoid hemorrhage in the anterior inferior frontal lobes. Right frontal scalp hematoma/contusion Nasal septal frac (more content not included)... [facility] 08-04-2024 Note HNO ID: [id number] Author: DIAMANTE GALINDO APRN.PARAOPTOMETRIC Service: General Surgery Author Type: Nurse Practitioner Type: Progress Notes Filed: 08/04/2024 12:09 Note Text: Trauma Surgery Progress Note SERVICE DATE: 08/04/2024 Trauma Service Pager: For questions or concerns Mon-Fri 6a-5p please page [phone]. After 5pm and on Weekends and Holidays, please page [phone] if in ICU or [phone] if on RNF. SUBJECTIVE: No acute overnight [...] 0659 08/04/24 07 - 08/05/24 0659 Shift 3519-8005 9988-1716 7564-9290 24 Hour Total 3421-2026 3332-2422 4912-0486 24 Hour Total INTAKE Shift Total OUTPUT [...] Anxiety 08/03/2024 Fall 08/02/2024 SAH (subarachnoid hemorrhage) ([facility]) 08/02/2024 Primary hypertension 08/02/2024 Hyperlipidemia 08/02/2024 Lip laceration 08/02/2024 Controlled type 2 diabetes mellitus without complication, with long-term current use of insulin ([facility]) 08/02/2024 Hypomagnesemia 08/02/2024 Thrombocytopenia 08/02/2024 Closed fracture of nasal bone 08/02/2024 84-year old female s/p mechanical fall on 08/01/24 (Trauma transfer from [place]) Imaging performed: CT HNFC, PXR (08/01- [place] ED) CT HNCAPTL-spine, repeat CT brain (08/01) (more content not included)... [facility] 08-04-2024 Note HNO ID: [id number] Author: GILSON LERNER RN Service: Care Management [...] DATE: August 04, 2024 TIME: 11:52 AM [facility] 08-04-2024 Note HNO ID: [id number] Author: GILSON LERNER RN Service: Care Management [...] Spoke with patient's son Derrick via phone ([phone]). Explained care management role. Discussed care needs and therapy recommendations. At this time, patient's family is learning toward her returning to home at discharge but remains open to the possibility of placement. The family plans to visit with patient this afternoon to further discuss discharge options. In the meantime, potential placement options in the [place] area reviewed. ADDENDUM 08/04/24 1543: Received message from patient's son Derrick that patient would like to proceed with placement at discharge and her preference is [facility]. Facility notified and is able to accept patient. Awaiting insurance authorization and bed availability. Will continue to follow clinical course for further transitional/discharge planning needs. Transport at Discharge: Transportation Arrangements: To Be Determined SIGNATURE: Gilson Lerner RN PATIENT NAME: Tamica Anderson DATE: August 04, 2024 TIME: 11:39 AM [facility] 08-03-2024 Note HNO ID: [id number] Author: FLAVIO JONES RN Service: Care Management [...] Relation: Daughter Admission Status: Inpatient Insurance Provider: [facility] Discharge Planning requested by: Per Department Practice IMM Follow Up Copy Given: Yes Copy given to:: Patient Method: In Person Potential Transition Plans To Be Determined Advance Directives Current Advance Directive: Health Care Power of Nuclear Technician, Living Will In Chart: No Conduit Worker Attempted to Assist with AD Completion: Yes [...] Patient Goal(s): Be able to go home [place] Explained: [place] Given: Yes Level of Care Discussed: Senior Care Facility, Other: See Comment (discussed SNF aqt [...] wheelchair, bedside commode over toilets. CPAP through [employer] and per son [facility] if patient needs home oxygen. 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 Patient declining and son aware and agrees that patient will decline more if goes to a SNF. Him and his sisters is working on round the clock care. CM sent referral to [facility] home. Needs to be determined. CM to follow. SIGNATURE: Flavio Jones RN PATIENT NAME: Tamica Anderson DATE: August 03, 2024 TIME: 3:07 PM [facility] 08-03-2024 Note HNO ID: [id number] Author: DIAMANTE GALINDO APRN.CARMEN Service: General Surgery Author Type: Nurse Practitioner Type: Progress Notes Filed: 08/03/2024 07:46 Note Text: Trauma Surgery Progress Note SERVICE DATE: 08/03/2024 Trauma Service Pager: For questions or concerns Mon-Fri 6a-5p please page [phone]. After 5pm and on Weekends and Holidays, please page [phone] if in ICU or [phone] if on RNF. SUBJECTIVE: No acute overnight events. Patient is alert and oriented x 2 (reoriented to time), FC, SOUSA. No new focal deficits. She denies any acute pain or discomfort at this time. She denies headache, dizziness, lightheadedness, changes in vision, numbness/tingling. Awaiting PT/OT/PLATE FORMER evaluations. OBJECTIVE: Vitals: Temp (24hrs), Av.7 ?C (98 ?F), Min:36.1 ?C (97 ?F), Max:37.4 ?C (99.4 ?F) BP 175/71 Pulse 83 Temp 37.2 ?C (98.9 ?F) (Oral) Resp 14 Ht 144.8 cm (4' 9) Wt 62.2 kg (137 lb 2 oz) SpO2 93% BMI 29.67 kg/m? O2 Therapy: Nasal Cannula IANDO: Date 08/02/24699 - 08/03/2465808/03/24699 - 08/04/24 0659 Shift 1257-2763 1863-7901 7211-5587 24 Hour Total 0448-3251 0554-7891 9908-8873 24 Hour Total INTAKE PO 200 200 [...] Shift Total 1000 1000 OUTPUT Urine 500 992 739 5929 Output ( External Collection Device 08/01/24 2204 [facility]) 500 264 355 6591 Shift Total 500 048 781 9337 Weight (kg) 62 62 62.2 62.2 62.2 [...] (HCC) 08/01/2024 Fall 08/02/2024 SAH (subarachnoid hemorrhage) ([facility]) 08/02/2024 Primary hypertension 08/02/2024 Hyperlipidemia 08/02/2024 Lip laceration 08/02/2024 Controlled type 2 diabetes mellitus without complication, with long-term current use of insulin ([facility]) 08/02/2024 Hypomagnesemia 08/02/2024 Thrombocytopenia 08/02/2024 Closed fracture of nasal bone 08/02/2024 84-year old female s/p mechanical fall on 08/01/24 (Trauma transfer from [place]) Imaging performed: CT HNFC, PXR (08/01- [place] ED) CT HNCAPTL-spine, repeat CT brain (08/01) CXR, KUB (08/02) Traumatic Injuries: Acute subdural hematoma involving the lower anterior interhemispheric fissure which measures 8 mm in maximum width. Small volume of an a (more content not included)... [facility] 08-02-2024 Note HNO ID: [id number] Author: EBEN CADENA MD Service: General Surgery [...] Surgery - PGY 1 11:17 PM 08/02/2024 [facility] 08-02-2024 Note HNO ID: [id number] Author: NIKO COTTO RN Service: Nursing Author Type: Registered Nurse Type: Nursing Progress Note Filed: 08/02/2024 18:08 Note Text: Report called to 5200 RN will transfer pt via bed [facility] 08-02-2024 Note HNO ID: [id number] Author: EVAN ROMERO PA-C Service: Neurosurgery Author Type: Physician It Compliance Manager Type: Plan of Care Filed: 08/02/2024 14:48 Note Text: Summary: NSGY to sign off, follow up in 2 weeks Neurosurgery Plan of Care Note: Discussed with Dr. Mccarthy. Will schedule follow up with Neurotrauma outpatient clinic in 2 weeks, with [facility]. Hold ASA. Updated patient's son via phone. DC instructions placed. Ok for SQH 48 hours after stable scan. Neurosurgery to sign off. Please page with questions or concerns. Evan Romero PA-C Department of Neurosurgery Pager: [phone] [employer] Pager: [phone] August 02, 2024 2:42 PM [facility] 08-02-2024 Note HNO ID: [id number] Author: BUCK SAAVEDRA MD Service: General Surgery [...] questions or concerns Mon-Fri 6a-5p please page [phone]. After 5pm and on Weekends and Holidays, please page [phone] if in ICU or [phone] if on RNF. SUBJECTIVE: NAEON. Doing well [...] kg/m? O2 Therapy: Nasal Cannula IANDO: Date 08/01/24 07 - 08/02/24 0659 08/02/24 07 - 08/03/24 0659 Shift 3911-5396 4478-0932 8471-9516 24 Hour Total 4568-4805 3750-1428 6453-4411 24 Hour Total INTAKE IV 800 800 [...] in 1 wee (more content not included)... [facility] 08-02-2024 Note HNO ID: [id number] Author: EVAN ROMERO PA-C Service: Neurosurgery Author Type: Physician It Compliance Manager Type: Progress Notes Filed: 08/02/2024 09:13 Note [...] which included preparing to see the patient, [id number] patient care, completing clinical documentation, obtaining and/or reviewing separately obtained history, performing a medically appropriate examination, counseling and educating the patient/family/caregiver, ordering medications, tests, or procedures, and communicating with other HCPs (not separately reported). SIGNATURE: Evan Romero PA-C PATIENT NAME: Tamica Anderson DATE: August 02, 2024 TIME: 8:09 AM Pager: [phone] [facility] 08-02-2024 Note HNO ID: [id number] Author: NOTE, INTERFACE, ? Service: ? Author Type: ? Type: Progress Notes Filed: 08/02/2024 02:55 Note Text: Epic Scheduled Downtime: 08/02/2024 1:00:00 AM to 08/02/2024 2:37:00 AM [facility] 08-01-2024 Radiology Diagnostic study note [facility] Imaging Services [address], [place] [address] Chest without Contrast MR#: [id number] Acct: [id number] Name: TAMICA ANDERSON Rep #: [id number] : 1940 F 84 From: Solomon Britt MD PCP: Dr. Dominique Lang MD Status: RE G ER Study:Chest without Contrast Date of Exam: 08/01/24 Exam# [id number] Ordering Dr: Do Verde DO PROCEDURE: CHEST [...] imaging. Other findings as above. Reading Location: [id number] CC: Dr. Dominique Lang MD; Cedric Verde DO ~ Iron Worker Apprentice: Signed [facility] 08-01-2024 Note HNO ID: [id number] Author: BUCK SAAVEDRA MD Service: General Surgery [...] attending's direction Informed Consent Consent Obtained: Verbal [place] Protocol A moment to CARE was completed. [...] DATE: August 01, 2024 TIME: 5:27 PM [facility] 08-01-2024 Radiology Diagnostic study note [facility] Imaging Services [address] [place] [address] Sinus/Facial Bone MR#: [id number] Acct: [id number] Name: TAMICA ANDERSON Rep #: [id number] : 1940 F 84 From: Solomon Britt MD PCP: Dr. Dominique Lang MD Status: RE G ER Study:Sinus/Facial Bone Date of Exam: Exam# [id number] Ordering Dr: Do Verde DO PROCEDURE: SINUS/FACIAL [...] intact without retro bulbar stranding. Reading Location: [id number] CC: Dr. Dominique Lang MD; Cedric Verde DO ~ Iron Worker Apprentice: Signed [facility] 08-01-2024 Discharge summary [facility] 08-01-2024 Radiology Diagnostic study note [facility] Imaging Services [address], [place] [address] Spine Cervical without Contras MR#: [id number] Acct: [id number] Name: TAMICA ANDERSON Rep #: [id number] : 1940 F 84 From: Solomon Britt MD PCP: Dr. Dominique Lang MD Status: RE G ER Study:Spine Cervical without Contras Date of Exam: 08/01/24 Exam# [id number] Ordering Dr: Do Verde DO PROCEDURE: SPINE [...] Bilateral C3-4 facet degenerative changes. Reading Location: [facility] CC: Dr. Dominique Lang MD; Cedric Verde DO ~ Iron Worker Apprentice: Signed [facility] 08-01-2024 Radiology Diagnostic study note [facility] Imaging Services [address] [place], [place] [address] Brain/Head without Contrast MR#: [id number] Acct: [id number] Name: TAMICA ANDERSON Rep #: [id number] : 1940 F 84 From: Solomon Britt MD PCP: Dr. Dominique Lang MD Status: DC E ER Study:Brain/Head without Contrast Date of Exa m: 08/01/24 Exam# [id number] Ordering Dr: Do Verde DO PROCEDURE: BRAIN/HEAD [...] bleed at 1:05 a.m. 08/01/2024 Reading Location: [facility] CC: Dr. Dominique Lang MD; Cedric Verde DO ~ Iron Worker Apprentice: Signed [facility] 08-01-2024 Radiology Diagnostic study note [facility] Imaging Services [address] [place] [address] Pelvis 1 or 2 Views MR#: [id number] Acct: [id number] Name: TAMICA ANDERSON Rep #: [id number] : 1940 F 84 From: Solomon Britt MD PCP: Dr. Dominique Lang MD Status: DC E ER Study:Pelvis 1 or 2 Views Date of Exam: 08/01/24 Exam# [id number] Ordering Dr: Do Verde DO PROCEDURE: PELVIS [...] No fracture or dislocation identified. Reading Location: [facility] CC: Dr. 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 Dominique Lang MD Status: RE G CLI Study:Gastric Emptying Study Date of Exam: 06/01/24 Exam# [id number] Ordering Dr: Dominique Lang MD PROCEDURE: GASTRIC [...] IMPRESSION: Normal gastric emptying scan. Reading Location: [facility] CC: Dr. Dominique Lang MD ~ Iron Worker Apprentice: Signed [facility]01-15-2025 Evaluation note* Diagnosis Onset Date Resolution Status Admit Date Cough acute April 01, 2024 2:35pm KATTY (obstructive sleep apnea) chroni c April 01, 2024 2:35pm [facility] Work Phone: 1([phone]) 199-204301-15-2025 Evaluation note* Diagnosis Onset Date Resolution Status Admit Date Cough acute April 01, 2024 2:35pm KATTY (obstructive sleep apnea) delete d April 01, 2024 2:35pm Chronic edema chronic June 16, 2024 12:47pm Essential (primary) hypertension chronic June 16, 2024 12:47pm HLD (hyperlipidemia) chronic Apri l 2024 12:47pm 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, resolved June 16, 2024 12:47pm Anxiety chronic June 30, 25 2:59pm Sleep apnea chronic June 30, 2 025 2:59pm [facility] Work Phone: 1([phone]) 652-316208-01-2002 Evaluation note* Diagnosis Onset Date Resolution Status Essential (primary) hypertension chronic HLD (hyperlipidemia) chronic 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, resolved 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 Essential [...] resolved Right bundle branch block re solved [facility] Work Phone: 1(321) 536-206908-01-2002 Evaluation note* Diagnosis Onset Date Resolution Status Essential (primary) hypertension chronic HLD (hyperlipidemia) chronic 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, resolved [facility] Work Phone: 1(640) 821-606108-01-2002 Evaluation note* Diagnosis Onset Date Resolution Status KATTY (obstructive sleep apnea) chronic Essential (primary) hypertension chronic HLD (hyperlipidemia) chronic 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, resolved [facility] Work Phone: Discharge summary Author Cedric Verde [facility] Note Date/Time August 01, 2024 2:05a m [facility] Medical Records Department [address] [place] [address] Emergency Department Summary 08/01/24 MR#: [id number] Acct: [id number] Name: TAMICA ANDERSON Rep #:[id number] : 1940 84 From: Cedric Verde [...] thinner such as Eliquis Coumadin or Xarelto. 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 [...] 75.0 H Lymph % (Auto) 12.0 L Door % (Auto) 9.5 Eos % (Auto) 2.5 [...] bleed at 1:05 a.m. 08/01/2024 Reading Location: [facility] Pelvis X-Ray 08/01/24 00:40 IMPRESSION: Patient is rotated to the left. No fracture or dislocation identified. Reading Location: [facility] Pelvis x-ray as interpreted by the emergency medicine physician reveals no acutefracture or dislocation Management Discussion w/another healthcare provider: Shed Hand and Radiologist Critical Care Time Critical Care [...] MD [Primary Care Provider] - Print Language: Spanish Disposition Disposition: Acute Care Hospital Discharge Location: [facility] What to do if you have Problems For any increased pain, shortness of breath, bleeding, nausea or vomiting, chestpain, or any unexpected problems, contact your Primary Care Provider. Call [facility] ([phone]) or report to the closest Emergency Room. Call 911 if necessary. 08/01/24 020 <Electronically signed by Cedric Verde DO> Cosigner Signature (if applicable): CC: Dr. Dominique Lang MD ~ Signed [facility] Work Phone: Evaluation note* Diagnosis Onset Date Resolution Status Anxiety acute Coronary artery disease acut e Debility acute Depression acute Diabetes mellitus acute Gastroesophageal reflux disease acute Hyperlipidemia acute Hypokalemia acute Sleep apnea acute Hypertension chronic Iron deficiency anemia chron ic Blood loss anemia resolved Closed left hip fracture res olved Fall resolved Pancreatitis resolved Right bundle branch block re solved [facility] Work Phone: Evaluation noteNo assessment information available [facility] Work Phone: Evaluation note* Diagnosis Subdural hematoma (HCC) Subdural hemorrhage documented in this encounter [facility] Work Phone: Reason for referral (narrative)No reason for referral information available[facility] Work Phone: Reason for visit Narrative* MRI/CT (Routine) - Closed Specialty Diagnoses / Procedures Referred By Joyac t Referred To Contact [facility] Diagnoses Subdural hematoma (HCC) Procedures CT BRAIN WO IVCON CT HEAD/BRAIN W/O CONTRAST MATERIAL Evan Romero PA-C [address] [place] [address] Phone: tel: fax: [place] [address] Referral ID Status Reason Start Date Expiration Date V isits Requested Visits Authorized [id number] Closed Auto-Generate d Referral 08/02/2024 09/01/2025 1 1 [facility] Summary Purpose Family History No Family History Records Found Relationship Condition Age at Onset Recorded Date/T tamie Not Specified Coronary artery disease Unknown mother Hypertension Unknown Advance Directives No Advanced Directives Records Found Advance Directive Response Recorded Date/ Time Name of Medical Power of Nuclear Technician fide May 18, 2021 3:35pm Living Will Yes May 23, 2021 10:29am Power of Nuclear Technician Yes May 23 10:29am Advance Directive Response Recorded Date/ Time Name of Medical Power of Nuclear Technician fide May 18, 2021 3:35pm Name of Medical Power of Nuclear Technician Francisco Javier Wong dtr May 23, 2021 10:29am Living Will No August 16, 2021 7 :11pm Power of Nuclear Technician Yes August 16, 2021 7:11pm Advance Directive Response Recorded Date/ Time Name of Medical Power of Nuclear Technician Francisco Javier Wong, dtr May 23, 2021 10:29am Name of Medical Power of Nuclear Technician francisco javier aguilar August 16, 2021 7:11pm Name of Medical Power of Nuclear Technician FIDE FORD September 21, 2021 6:58pm Living Will Yes September 21, 2021 6 :58pm Power of Nuclear Technician Yes September 21, 2021 6:58pm Advance Directive Response Recorded Date/ Time Name of Medical Power of Nuclear Technician francisco javier aguilar August 16, 2021 7:11pm Name of Medical Power of Nuclear Technician FIDE FORD September 21, 2021 6:58pm Living Will Yes September 21, 2021 6 :58pm Power of Nuclear Technician Yes September 21, 2021 6:58pm Advance Directive Response Recorded Date/ Time Living Will Yes September 21, 2021 6 :58pm Power of Nuclear Technician Yes September 21, 2021 6:58pm Advance Directive Response Recorded Date/ Time Name of Medical Power of Nuclear Technician FRANCISCO JAVIER WONG- DAUGHTER July 07, 2022 11:11am Living Will Yes July 07, 2022 11:11am Power of Nuclear Technician Yes July 07 11:11am Advance Directive Response Recorded Date/ Time Living Will Yes July 07, 2022 11:11am Power of Nuclear Technician Yes July 07 11:11am Advance Directive Response Recorded Date/ Time Living Will Yes September 14, 2023 12:09pm Do you have a Healthcare Power of Nuclear Technician? No September 14, 2023 12:09pm Advance Directive Response Recorded Date/ Time Living Will Yes September 14, 2023 12:09pm Do you have a Healthcare Power of Nuclear Technician? No September 14, 2023 12:09pm Living Will Yes December 06, 2023 9:16pm Do you have a Healthcare Power of Nuclear Technician? No December 06, 2023 9:16pm Advance Directive Response Recorded Date/ Time Living Will Yes December 06, 2023 9:16pm Do you have a Healthcare Power of Nuclear Technician? No December 06, 2023 9:16pm Do you have a Healthcare Power of Nuclear Technician? Yes July 31, 2024 11:40pm Name of Medical Power of Nuclear Technician FRANCISCO JAVIER WONG July 31, 2024 11:40pm [...] you have a Healthcare Pow er of Nuclear Technician? No December 06, 2023 9:16pm Do you have a Healthcare Pow er of Nuclear Technician? Yes July 31, 2024 11:40pm Name of Medical Power of Nuclear Technician FRANCISCO JAVIER WONG July 31, 2024 11:40pm Do you have a Healthcare Pow er of Nuclear Technician? Yes October 05, 2024 10:32am Name of Medical Power of Nuclear Technician janak olivares y October 05, 2024 10:32am Advance Directive Response Recorded Date/ Time Do you have a Healthcare Power of Nuclear Technician? Yes July 31, 2024 11:40pm Name of Medical Power of Nuclear Technician FRANCISCO JAVIER WONG July 31, 2024 11:40pm Do you have a Healthcare Power of Nuclear Technician? 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 Essential (primary) [...] artery bypass surgery 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 Essential (primary) [...] pm EORDERS September 16, 2024 3:24p m BREATHING October 05, 2024 9:50 am Chief Complaint Admit Date 3 M FU June 30, 2024 2:5 9pm SOB/DYSPNEA July 24, 2024 11:52a m FALL July 31, 2024 11:34 pm EORDERS September 16, 2024 3:24p m BREATHING October 05, 2024 9:50 am Reason for Visit Admit Date Anxiety June 30, 2024 2:5 9pm Sleep apnea June 30, 2024 2:5 9pm Chief Complaint Admit Date SOB/DYSPNEA July 24, 2024 11:52a m FALL July 31, 2024 11:34 pm EORDERS September 16, 2024 3:24p m BREATHING October 05, 2024 9:50 am Additional Source Comments INFORMATION SOURCE (unrecogn ized section and content) DATE CREATED AUTHOR 10/13/2017 [facility] ([place]) DATE CREATED AUTHOR AUTHOR'S ORGANIZ ATION 08/25/2024 [facility] DATE CREATED AUTHOR AUTHOR'S ORGANIZ ATION 11/07/2024 [facility] Goals (unrecognized section and content) Goals may [...] Provider, Referr ing Provider Active Libertad Fernando CONTRACTOR BUYER, CONTRACTOR BUYER-C Attending Provider Active Team Status: Inactive Member [...] Vivek Samano MD Attending Provider Active Braulio Patel MD Referring Provider Active Team Status: Inactive [...] Provider, Referr ing Provider Active Nargis Prajapati CONTRACTOR BUYER, CONTRACTOR BUYER-C Attending Provider Active Team Status: Inactive Member Role Status Dates Dr. Dominique Lang MD Primary Care Provider Active Nargis Prajapati CONTRACTOR BUYER, CONTRACTOR BUYER-C Attending Provider, Referrin g Provider Active Team Status: Active Member Role Status Dates Dr. Dominique Lang MD Primary Care Provider Active Team Status: Inactive Member Role Status Dates Dr. Dominique Lang MD Primary Care Provider Active Start: April 01, 2024 End: April 01, 2024 Dr. Dominique Lang MD Referring Provider Active Start: April 01, 2024 End: April 01, 2024 Nargis Prajapati CONTRACTOR BUYER, CONTRACTOR BUYER-C Attending Provider Active Start: April 01, 2024 End: April 01, 2024 Team Status: Inactive Member Role Status Dates Dr. Dominique Lang MD Primary Care Provider Active Start: April 14, 2024 End: April 14, 2024 Nargis Prajapati CONTRACTOR BUYER, CONTRACTOR BUYER-C Attending Provider Active Start: April 14, 2024 [...] 2024 End: June 30, 2024 Nargis Prajapati CONTRACTOR BUYER, CONTRACTOR BUYER-C Attending Provider Active Start: June 30, 2024 End: June 30, 2024 Team Status: Inactive Member Role Status Dates Dr. Dominique Lang MD Primary Care Provider Active Start: July 24, 2024 End: July 24, 2024 Nargis Prajapati CONTRACTOR BUYER, CONTRACTOR BUYER-C Attending Provider Active Start: July 24, 2024 End: July 24, 2024 Nargis Prajapati CONTRACTOR BUYER, CONTRACTOR BUYER-C Referring Provider Active Start: July 24, 2024 [...] July 31, 2024 End: August 01, 2024 Inner Diameter Grinder Tool Relationship Specialty Start Date End Date Dominique Lang MD [address] [place] [address] PCP - General Family Medicine 08/03/24 Team [...] 2024 End: June 30, 2024 Nargis Prajapati CONTRACTOR BUYER, CONTRACTOR BUYER-C Attending Provider Active Start: June 30, 2024 End: June 30, 2024 Team Status: Inactive Member Role/Relationship Status Dates Dr. Dominique Lang MD Primary Care Provider Active Start: July 24, 2024 End: July 24, 2024 Nargis Prajapati CONTRACTOR BUYER, CONTRACTOR BUYER-C Attending Provider Active Start: July 24, 2024 End: July 24, 2024 Nargis Prajapati CONTRACTOR BUYER, CONTRACTOR BUYER-C Referring Provider Active Start: July 24, 2024 [...] 2024 End: June 30, 2024 Nargis Prajapati CONTRACTOR BUYER, CONTRACTOR BUYER-C Attending Provider Active Start: June 30, 2024 End: June 30, 2024 Team Status: Inactive Member Role/Relationship Status Dates Dr. Dominique Lang MD Primary Care Provider Active Start: July 24, 2024 End: July 24, 2024 Nargis Prajapati CONTRACTOR BUYER, CONTRACTOR BUYER-C Attending Provider Active Start: July 24, 2024 End: July 24, 2024 Nargis Prajapati CONTRACTOR BUYER, CONTRACTOR BUYER-C Referring Provider Active Start: July 24, 2024 [...] October 05, 2024 End: October 05, 2024 Team Status: Inactive Member Role/Relationship Status Dates Dr. Dominique Lang MD Primary Care Provider Active Start: June 30, 2024 End: June 30, 2024 Dr. Dominique Lang MD Referring Provider Active Start: June 30, 2024 End: June 30, 2024 Nargis Prajapati CONTRACTOR BUYER, CONTRACTOR BUYER-C Attending Provider Active Start: June 30, 2024 End: June 30, 2024 Team Status: Inactive Member Role/Relationship Status Dates Dr. Dominique Lang MD Primary Care Provider Active Start: July 24, 2024 End: July 24, 2024 Nargis Prajapati CONTRACTOR BUYER, CONTRACTOR BUYER-C Attending Provider Active Start: July 24, 2024 End: July 24, 2024 Nargis Prajapati CONTRACTOR BUYER, CONTRACTOR BUYER-C Referring Provider Active Start: July 24, 2024 [...] October 05, 2024 Dr. Frankie Cerrato MD Attending Provider Active Sta rt: October 05, 2024 End: October 05, 2024 Dr. Frankie Cerrato MD Emergency Provider Active Sta rt: October 05, 2024 End: October 05, 2024 Team Status: Inactive Member Role/Relationship Status Dates Dr. Dominique Lang MD Primary Care Provider Active Start: October 14, 2024 End: October 14, 2024 Dr. Dominique Lang MD Attending Provider Active Start: October 14, 2024 End: October 14, 2024 Dr. Dominique Lang MD Referring Provider Active Start: October 14, 2024 End: October 14, 2024 Team Status: Inactive Member Role/Relationship Status Dates Dr. Dominique Lang MD Primary Care Provider Active Start: July 24, 2024 End: July 24, 2024 Nargis Prajapati CONTRACTOR BUYER, CONTRACTOR BUYER-C Attending Provider Active Start: July 24, 2024 End: July 24, 2024 Nargis Prajapati CONTRACTOR BUYER, CONTRACTOR BUYER-C Referring Provider Active Start: July 24, 2024 [...] October 05, 2024 Dr. Frankie Cerrato MD Attending Provider Active Sta rt: October 05, 2024 End: October 05, 2024 Dr. Frankie Cerrato MD Emergency Provider Active Sta rt: October 05, 2024 End: October 05, 2024 Team Status: Inactive Member Role/Relationship Status Dates Dr. Dominique Lang MD Primary Care Provider Active Start: October 14, 2024 End: October 14, 2024 Dr. Dominique Lang MD Attending Provider Active Start: October 14, 2024 End: October 14, 2024 Dr. Dominique Lang MD Referring Provider Active Start: October 14, 2024 End: October 14, 2024 Source Comments (unrecognize d section and content) In the event this informatio n is protected by the Federal Confidentiality of Alcohol and Drug Abuse Patient Records regulations: The Federal rules restrict any use of the information to criminally investigate or prosecute any alcohol or drug abuse patient.[facility] FOR RECORDS PERTAINING TO PATIENTS WHO [...] BE BASED ON THE PRIMARY CLINICAL RECORDS. [facility] [employer] [facility]. provides no warranty or guarantee of the accuracy or completeness of information in this document.
== END | disposition home or self-care (01) ==
PROVIDERS: PCP Family Medicine; Referring Provider Clinical Nurse Specialist Adult Health; Visit Provider Clinical Nurse Specialist Adult Health
DX: S32.000A Wedge compression fracture of unspecified lumbar vertebra, initial encounter for closed fracture (principal)
CPT/HCPCS: 72148

== ENCOUNTER → 2024-11-25 | Outpatient (CLI) | payer MEDICARE, SELFPAY ==
--- NOTE | 2024-11-25 07:30 | BON_PTH ---
PATIENT: TAMICA REBOLLEDO [facility] U#:[id number] AGE/SX: 84/F ROOM: RE11/25/[address]: Dr. Willy Gutierrez MD : 1940 BED: DIS: 11/25/2024 SPEC #: [id number] RECD: 11/25/24 10:55 STATUS: LONNIE REQ #: [id number] HANNA: 11/25/24 07:[address]: Willy Gutierrez DEPT: SURGICAL PATHOLOGY RECD BY: Milton Hightower ENTERED: 11/25/24 13:33 SP TYPE: Bone OTHR DR: Dr. Michele Lang MD Tissues: A - Vertebra, NOS Procedures: Decalcification bone/plaque Surgery Specimen Level IV HEADER OPERATION: Kyphoplasty of L4 under fluoroscopy with biopsy of L4 PRE-OP DIAGNOSIS: Age-related osteoporosis with current pathological fracture, vertebrae, initial encounter for fracture TISSUE SUBMITTED: A- Body of L4 MICROSCOPIC DIAGNOSIS A. Vertebral bone, L4, body, biopsy: - Trabecular bone with patchy trilineage hematopoiesis and acute hemorrhage. MICROSCOPIC DESCRIPTION Slides are reviewed. GROSS DESCRIPTION A. Received in formalin labeled with the patient's name and date of . Designated as biopsy body of L4 is a 0.8 cm length by 0.3 cm in diameter red bone core admixed with minimal clotted blood. Entirely submitted in 1 cassette, following decalcification. [place] 11/25/2024 CPT:[id number]
== END | disposition home or self-care (01) ==
LOC: LABSPEC 11:01
PROVIDERS: PCP Family Medicine; Referring Provider Anesthesiology Pain Medicine; Visit Provider Anesthesiology Pain Medicine
DX: M80.08XA Age-related osteoporosis with current pathological fracture, vertebra(e), initial encounter for fracture (principal)
CPT/HCPCS: 88305; 88311

== ENCOUNTER → 2024-12-08 | Outpatient (CLI) | payer MEDICARE, SELFPAY ==
[2024-12-08 16:21] LABS: Mucous, Urine 0 SEEN /hpf (<or=2+)
[2024-12-08 18:52] LABS: Color, Urine Yellow (Yellow); Glucose, Dipstick Normal (Normal); Ketone-Dipstick Negative (Negative); Leukocyte Esterase-Dipstick 500 /ul (Negative); Nitrite-Dipstick Negative (Negative); Occult Blood-Urine Negative /ul (Negative); Protein-Dipstick 30 mg/dl (Negative); Specific Gravity, Urine 1.015 (1.002-1.030); Urine Bilirubin Dipstick Negative (Negative)
[2024-12-08 19:00] LABS: Hematocrit 38.3 % (37-47); Hemoglobin 12.4 g/dL (12.0-15.0); Immature Granulocytes Count 0.020 X10^3/uL (0.0-0.0); Mean Corp Hgb Conc 32.4 g/dL (32-36); Mean Corpuscular Volume 86.7 fL (81-99); Mean Platelet Vol. 9.8 fl (6.2-12.0); NRBC Flagged by Analyzer 0 % (0-5); Platelet Count 222 K/mm3 (150-450); RBC Distribution Width CV 15.0 % (11.6-14.6); RBC Distribution Width SD 47.7 fl (35.1-43.9); Red Blood Count 4.42 M/mm3 (4.2-5.4); White Blood Count 8.2 K/mm3 (4.4-11.0)
[2024-12-08 19:02] LABS: PTHIN 52 pg/mL (11-61)
[2024-12-08 19:03] LABS: Creatinine, Urine (random) 105.00 mg/dL (28.00-217.00); Microalbumin,Random Urine 49.4 mg/L (<20 mg/L); Protein, Urine (Random) 19.2 mg/dL (0.0-12.0); Protein:Creat Ratio 183 mg/g CRE (0-200)
[2024-12-08 19:19] LABS: AST(SGOT) 36 U/L (<=31); Alanine Aminotransfer ALT/SGPT 18 U/L (<=34); Albumin, Serum 4.1 g/dL (3.4-4.8); Alkaline Phosphatase 89 U/L (35-104); Anion Gap 16 (5-15); BUN 27 mg/dL (4-19); BUN/Creat Ratio 24.4 RATIO (10-20); Calcium,Total 9.6 mg/dL (7.6-11.0); Carbon Dioxide 27.0 mmol/L (21.0-32.0); Chloride 96 mmol/L (98-108); Cholesterol 139 mg/dL (<=200); Globulin 3.1 g/dL (2.2-4.2); Glucose 102 mg/dL (70-99); Low Density Lipoprotein Calc. 53 mg/dL; Potassium 3.9 mmol/L (3.3-5.1); Triglycerides 197 mg/dL; Very Low Density Lipoprotein 39 mg/dL (5-40); Vitamin B12 447 pg/mL (180-914); Vitamin D,25 Hydroxy 74.6 ng/mL (30-100); cholesterol:hdl ratio screen 2.99
[2024-12-08 20:56] LABS: Red Blood Cells-Urine 0-5 SEEN /hpf (0-5); Squamous Epithelial Cells - UA 0-5 SEEN /hpf (5-10)
== END | disposition home or self-care (01) ==
LOC: MFPLAB 16:18
PROVIDERS: PCP Family Medicine; Visit Provider Family Medicine
DX: E11.59 Type 2 diabetes mellitus with other circulatory complications (principal); E11.22 Type 2 diabetes mellitus with diabetic chronic kidney disease; E11.69 Type 2 diabetes mellitus with other specified complication; N18.30 Chronic kidney disease, stage 3 unspecified
CPT/HCPCS: 36415; 80053; 80061; 81001; 82043; 82306; 82570; 82607; 83036; 83970; 84156; 85025

== ENCOUNTER 2025-02-16 12:48 | Outpatient (CLI) | payer MEDICARE, SELFPAY ==
[2025-02-16 13:32] VITALS: BP 151/72; PULSE 96; RESP 18; TEMP 36.6; O2SAT 94; BMI 24.2
[2025-02-16] MEDS: DENOSUMAB 60 MG/ML SC (13:35)
== END 2025-02-16 23:59 | disposition home or self-care (01) ==
LOC: MEDOUTP 12:49
PROVIDERS: PCP Family Medicine; Referring Provider Family Medicine; Visit Provider Family Medicine
DX: M81.0 Age-related osteoporosis without current pathological fracture (principal)
CPT/HCPCS: 96372; J0897

== ENCOUNTER → 2025-03-04 | Outpatient (CLI) | payer MEDICARE, SELFPAY ==
[2025-03-04 15:12] LABS: Mucous, Urine 0 SEEN /hpf (<or=2+)
[2025-03-04 18:01] LABS: Color, Urine Straw (Yellow); Glucose, Dipstick Normal (Normal); Ketone-Dipstick Negative (Negative); Leukocyte Esterase-Dipstick 500 /ul (Negative); Nitrite-Dipstick Negative (Negative); Occult Blood-Urine 10 /ul (Negative); Protein-Dipstick 30 mg/dl (Negative); Specific Gravity, Urine 1.015 (1.002-1.030); Urine Bilirubin Dipstick Negative (Negative)
[2025-03-04 18:03] LABS: Hematocrit 36.3 % (37-47); Hemoglobin 11.9 g/dL (12.0-15.0); Immature Granulocytes Count 0.010 X10^3/uL (0.0-0.0); Mean Corp Hgb Conc 32.8 g/dL (32-36); Mean Corpuscular Volume 91.4 fL (81-99); Mean Platelet Vol. 9.3 fl (6.2-12.0); NRBC Flagged by Analyzer 0 % (0-5); Platelet Count 220 K/mm3 (150-450); RBC Distribution Width CV 13.2 % (11.6-14.6); RBC Distribution Width SD 44.6 fl (35.1-43.9); Red Blood Count 3.97 M/mm3 (4.2-5.4); White Blood Count 7.5 K/mm3 (4.4-11.0)
[2025-03-04 18:14] LABS: Creatinine, Urine (random) 97.70 mg/dL (28.00-217.00); Microalbumin,Random Urine 91.5 mg/L (<20 mg/L); Protein, Urine (Random) 23.8 mg/dL (0.0-12.0); Protein:Creat Ratio 244 mg/g CRE (0-200)
[2025-03-04 18:18] LABS: PTHIN 151 pg/mL (11-61)
[2025-03-04 18:32] LABS: AST(SGOT) 33 U/L (<=31); Alanine Aminotransfer ALT/SGPT 15 U/L (<=34); Albumin, Serum 4.2 g/dL (3.4-4.8); Alkaline Phosphatase 78 U/L (35-104); Anion Gap 15 (5-15); BUN 21 mg/dL (4-19); BUN/Creat Ratio 19.2 RATIO (10-20); Calcium,Total 9.4 mg/dL (7.6-11.0); Carbon Dioxide 26.9 mmol/L (21.0-32.0); Chloride 98 mmol/L (98-108); Cholesterol 135 mg/dL (<=200); Globulin 3.1 g/dL (2.2-4.2); Glucose 142 mg/dL (70-99); Low Density Lipoprotein Calc. 51 mg/dL; Potassium 4.2 mmol/L (3.3-5.1); Triglycerides 179 mg/dL; Very Low Density Lipoprotein 36 mg/dL (5-40); Vitamin B12 354 pg/mL (180-914); Vitamin D,25 Hydroxy 75.1 ng/mL (30-100); cholesterol:hdl ratio screen 2.47
[2025-03-04 18:38] LABS: Red Blood Cells-Urine 5-10 SEEN /hpf (0-5); Squamous Epithelial Cells - UA 5-10 SEEN /hpf (5-10)
== END | disposition home or self-care (01) ==
PROVIDERS: PCP Family Medicine; Visit Provider Family Medicine
DX: E11.69 Type 2 diabetes mellitus with other specified complication (principal); E11.22 Type 2 diabetes mellitus with diabetic chronic kidney disease; N18.30 Chronic kidney disease, stage 3 unspecified
CPT/HCPCS: 36415; 80053; 80061; 81001; 82043; 82306; 82570; 82607; 83036; 83970; 84156; 85025